=== PATIENT | male | born 1950 | race Caucasian/White ===

== ENCOUNTER → 2018-06-19 08:40 | Outpatient (CLI) | payer MEDICARE, BC, SELFPAY ==
[2018-06-19 09:06] LABS: Prothrombin Time 22.2 sec (9.3-10.8)
[2018-06-19 09:07] LABS: INR 2.3 (1.0-3.5)
== END ==
PROVIDERS: PCP Family Medicine; Visit Provider Family Medicine
DX: I34.0 Nonrheumatic mitral (valve) insufficiency (principal); Z79.01 Long term (current) use of anticoagulants; Z95.2 Presence of prosthetic heart valve
CPT/HCPCS: 36415; 85610

== ENCOUNTER 2018-08-30 13:14 | Outpatient (CLI) | payer MEDICARE, BC, SELFPAY ==
[2018-08-30 14:12] LABS: Prothrombin Time 27.8 sec (9.3-10.8)
== END 2018-08-30 13:34 ==
PROVIDERS: PCP Family Medicine; Visit Provider Family Medicine
DX: I34.0 Nonrheumatic mitral (valve) insufficiency (principal); Z79.01 Long term (current) use of anticoagulants; Z95.2 Presence of prosthetic heart valve
CPT/HCPCS: 36415; 85610

== ENCOUNTER → 2018-10-09 13:50 | Outpatient (BNVA) | payer MEDICARE, BC, SELFPAY | PROVIDERS: PCP Family Medicine; Visit Provider Nurse Practitioner Family | DX: I34.0 Nonrheumatic mitral (valve) insufficiency (principal); Z79.01 Long term (current) use of anticoagulants; Z95.2 Presence of prosthetic heart valve; I10 Essential (primary) hypertension; Z45.018 Encounter for adjustment and management of other part of cardiac pacemaker | CPT/HCPCS: 93280; 99213 ==

== ENCOUNTER 2019-02-19 12:12 | Outpatient (CLI) | payer MEDICARE, BC, SELFPAY ==
[2019-02-19 13:01] LABS: INR 1.3 (0.9-1.1)
== END 2019-02-19 12:32 ==
PROVIDERS: PCP Family Medicine; Visit Provider Family Medicine
DX: I34.0 Nonrheumatic mitral (valve) insufficiency (principal); Z95.0 Presence of cardiac pacemaker; Z79.01 Long term (current) use of anticoagulants
CPT/HCPCS: 36415; 85610

== ENCOUNTER 2019-03-01 15:28 | Outpatient (CLI) | payer MEDICARE, BC, SELFPAY ==
[2019-03-01 15:53] LABS: Prothrombin Time 20.1 sec (9.3-11.0)
== END 2019-03-01 15:48 ==
PROVIDERS: PCP Family Medicine; Visit Provider Family Medicine
DX: I34.0 Nonrheumatic mitral (valve) insufficiency (principal); Z95.0 Presence of cardiac pacemaker; Z79.01 Long term (current) use of anticoagulants
CPT/HCPCS: 36415; 85610

== ENCOUNTER 2019-03-20 10:25 | Outpatient (CLI) | payer MEDICARE, BC, SELFPAY ==
[2019-03-20 11:00] LABS: Prothrombin Time 19.7 sec (9.3-11.0)
== END 2019-03-20 10:45 ==
PROVIDERS: PCP Family Medicine; Visit Provider Family Medicine
DX: I34.0 Nonrheumatic mitral (valve) insufficiency (principal); Z95.2 Presence of prosthetic heart valve; Z79.01 Long term (current) use of anticoagulants
CPT/HCPCS: 36415; 85610

== ENCOUNTER 2019-04-29 08:28 | Outpatient (CLI) | payer MEDICARE, BC, SELFPAY ==
[2019-04-29 09:51] LABS: INR 3.3 (0.9-1.1); Prothrombin Time 33.7 sec (9.3-11.0)
== END 2019-04-29 08:48 ==
PROVIDERS: PCP Family Medicine; Visit Provider Family Medicine
DX: I34.0 Nonrheumatic mitral (valve) insufficiency (principal); Z95.0 Presence of cardiac pacemaker; Z79.01 Long term (current) use of anticoagulants
CPT/HCPCS: 36415; 85610

== ENCOUNTER → 2019-04-30 09:22 | Outpatient (BNVA) | payer MEDICARE, BC, SELFPAY | PROVIDERS: PCP Family Medicine; Visit Provider Nurse Practitioner Family | DX: I34.0 Nonrheumatic mitral (valve) insufficiency (principal); Z79.01 Long term (current) use of anticoagulants; Z95.2 Presence of prosthetic heart valve; I10 Essential (primary) hypertension; Z45.018 Encounter for adjustment and management of other part of cardiac pacemaker | CPT/HCPCS: 93280; 99213 ==

== ENCOUNTER 2019-06-18 10:02 | Outpatient (CLI) | payer MEDICARE, BC, SELFPAY ==
[2019-06-18 10:38] LABS: HGB 14.4 g/dL (13.5-17.5); Mean Corp. HGB Concentration 34.3 g/dL (32.0-36.0); Mean Corpuscular Hemoglobin 30.3 pg (27.0-33.0); Mean Corpuscular Volume 88.4 fL (80-95); Mean Platelet Volume 9.7 fL (8.0-11.0); Platelet Count 194 x1000/uL (130-400); RBC 4.75 m/cumm (4.50-6.00); RBC Distribution Width 13.3 % (11.8-14.1); White Blood Cell Count 5.12 k/cumm (4.4-10.8)
[2019-06-18 11:24] LABS: INR 3.4 (0.9-1.1); Prothrombin Time 34.2 sec (9.3-11.0)
[2019-06-18 11:46] LABS: ALT 25 U/L (16-63); AST 28 U/L (15-37); Albumin 4.2 g/dL (3.4-5.0); Alkaline Phosphatase 51 U/L (46-116); Anion Gap 10.2 mmol/L (3-11); BUN 20 mg/dL (7-18); Bilirubin, Total 0.5 mg/dL (0.2-1.0); CO2 25.8 mmol/L (21.0-32.0); CREATININE 1.07 mg/dL (0.70-1.30); Calcium 8.8 mg/dL (8.5-10.1); Chloride 103 mmol/L (98-107); Glucose 83 mg/dL (70-100); Potassium 4.7 mmol/L (3.5-5.1); Sodium 139 mmol/L (136-145); Total Protein 7.2 g/dL (6.4-8.2)
[2019-06-18 11:48] LABS: Calculated LDL 195 mg/dL; Cholesterol 265 mg/dL (50-200); HDL Cholesterol 53 mg/dL (40-60); Triglyceride 88 mg/dL (30-150)
== END 2019-06-18 10:22 ==
PROVIDERS: Internal Medicine Cardiovascular Disease; PCP Family Medicine; Visit Provider Family Medicine
DX: E78.00 Pure hypercholesterolemia, unspecified (principal); R06.2 Wheezing; I34.0 Nonrheumatic mitral (valve) insufficiency; Z95.0 Presence of cardiac pacemaker; Z95.2 Presence of prosthetic heart valve; Z79.01 Long term (current) use of anticoagulants; R53.83 Other fatigue
CPT/HCPCS: 36415; 80053; 80061; 83721; 85027; 85610

== ENCOUNTER → 2019-06-21 14:24 | Outpatient (BNVA) | payer MEDICARE, BC, SELFPAY | PROVIDERS: PCP Family Medicine; Visit Provider Internal Medicine Cardiovascular Disease | DX: Z95.4 Presence of other heart-valve replacement (principal); Z79.01 Long term (current) use of anticoagulants; Z95.0 Presence of cardiac pacemaker | CPT/HCPCS: 99213 ==

== ENCOUNTER 2019-07-24 14:30 | Outpatient (CLI) | payer MEDICARE, BC, SELFPAY ==
[2019-07-24 15:15] LABS: INR 1.9 (0.9-1.1); Prothrombin Time 18.5 sec (9.3-11.0)
== END 2019-07-24 14:50 ==
PROVIDERS: PCP Family Medicine; Visit Provider Family Medicine
DX: I48.91 Unspecified atrial fibrillation (principal); Z95.2 Presence of prosthetic heart valve; Z79.01 Long term (current) use of anticoagulants
CPT/HCPCS: 36415; 85610

== ENCOUNTER 2019-09-11 11:51 | Emergency (ER) | payer MEDICARE, BC, SELFPAY ==
[2019-09-11 11:57] VITALS: BP 128/85; PULSE 85; RESP 16; TEMP 36.6; O2SAT 98
--- NOTE | 2019-09-11 12:20 | DI.CT_ITS ---
EXAM: CT ABDOMEN AND PELVIS W CLINICAL HISTORY: abdominal pain, LLQ TECHNIQUE: After IV and oral contrast COMPARISON: No exams were available for comparison FINDINGS: There is scarring in the right middle lobe. Emphysematous changes are seen at the lung bases. Pacem marco wires and mitral valve prosthesis are partially included on the exam. The liver, gallbladder, s pleen, pancreas, adrenals and kidneys appear normal. The appendix appears normal. An increased jorge tity of stool is seen throughout the colon. There are few scattered diverticula. There is no eviden ce of diverticulitis. There is no small bowel dilatation or wall thickening. No ascites or free air is present. The aorta shows calcification and mild mural thrombus but no evidence of an aneurysm. T he proximal iliac arteries also show calcification. The prostate appears enlarged. There is a centr al defect in the prostate, which could be secondary to TURP procedure. There is mild diffuse bladder wall thickening. No bladder mass or bladder calcification is seen. No significant bony lesions are seen. IMPRESSION: Increased quantity of stool. Diverticulosis without evidence of diverticulitis.
[2019-09-11] MEDS: Normal Saline 1,000 ML 1000 ML IV (12:32)
[2019-09-11] MEDS: Normal Saline Flush 10 ML SYR IVP (12:33)
[2019-09-11 12:37] LABS: Abs Immature Grans 0.01 k/cumm (0.0-0.09); Absolute Basophil Count 0.05 k/cumm (0.0-0.2); Absolute Eosinophil Count 0.15 k/cumm (0.0-0.7); Absolute Lymphocyte Count 1.22 k/cumm (1.2-3.4); Absolute Monocyte Count 0.59 k/cumm (0.11-0.7); Absolute Neutrophil Count 3.01 k/cumm (1.2-6.7); HCT 42.3 % (40.0-50.0); HGB 14.4 g/dL (13.5-17.5); Immature Grans % 0.2; Lymphocytes % 24.3; Mean Corpuscular Hemoglobin 29.9 pg (27.0-33.0); Mean Corpuscular Volume 87.9 fL (80-95); Mean Platelet Volume 9.7 fL (8.0-11.0); Monocytes % 11.7; Neutrophils % 59.8; Platelet Count 216 x1000/uL (130-400); RBC 4.81 m/cumm (4.50-6.00); RBC Distribution Width 13.4 % (11.8-14.1); White Blood Cell Count 5.03 k/cumm (4.4-10.8)
[2019-09-11 12:46] LABS: ALT 29 U/L (16-63); AST 31 U/L (15-37); Albumin 4.2 g/dL (3.4-5.0); Alkaline Phosphatase 53 U/L (46-116); Anion Gap 9.9 mmol/L (3-11); BUN 17 mg/dL (7-18); Bilirubin, Total 0.4 mg/dL (0.2-1.0); CO2 25.1 mmol/L (21.0-32.0); CREATININE 0.98 mg/dL (0.70-1.30); Calcium 8.9 mg/dL (8.5-10.1); Chloride 103 mmol/L (98-107); Glucose 87 mg/dL (74-106); Potassium 4.4 mmol/L (3.5-5.1); Sodium 138 mmol/L (136-145); Total Protein 7.6 g/dL (6.4-8.2)
[2019-09-11 12:50] LABS: INR 3.5 (0.9-1.1); PTT Activated 50.2 sec (21.0-31.4); Prothrombin Time 34.2 sec (9.3-11.0)
[2019-09-11 13:00] LABS: Bilirubin Negative (Negative); Blood Negative (Negative); Clarity Clear (Clear); Glucose Negative (Negative); Ketones Negative (Negative); Leukocyte Esterase Negative (Negative); Nitrite Negative (Negative); Urobilinogen 0.2 EU/dL (Up TO 0.2); pH 5.5 (5-8)
[2019-09-11] MEDS: Omnipaque 350 MG/ML 50 ML BTL IJ (13:34)
[2019-09-11] MEDS: Omnipaque 350 MG/ML 100 ML BTL IJ (14:48)
--- NOTE | 2019-09-11 16:07 | W.ED.GENAD ---
Discharge Plan Disposition Patient Disposition: HOME Condition: Good Discharge Details Chief Complaint: Abd Prob Clinical Impression: Constipation Primary Care Provider: Linda Mccray ED Provider: Sonia Maria Home Meds and New Rx's Prescriptions: No Action aspirin 81 MG tablet,chewable 81 mg PO DAILY RF: 0 warfarin [Coumadin] 10 MG tablet 0 - 1 tab PO DIRECTED Qty: 90 RF: 4 warfarin [Coumadin] 2 mg tablet 2 mg PO as directed Qty: 30 RF: 0 Discharge Instructions Instructions: Constipation (ED) Additional Instructions: Drink plenty of fluids. Maintain high-fiber diet. Use mag citrate as recommended by her primary care doctor then transition to MiraLAX. I recommend a capful of MiraLAX once daily for 1 week then half a cap once daily for a week then half a cap every other day for a week then half a cap every 3 days for a week before discontinuing. Your INR today was noted to be 3.5. Please call your PCP and follow-up with this finding. Follow-up closely with your primary care doctor. Please follow-up for incidental findings specifically: There is scarring in the right middle lobe. Emphysematous changes are seen at the lung bases. Pacemaker wires and mitral valve prosthesis are partially included on the exam. The liver, gallbladder, spleen, pancreas, adrenals and kidneys appear normal. The appendix appears normal. An increased quantity of stool is seen throughout the colon. There are few scattered diverticula. There is no evidence of diverticulitis. There is no small bowel dilatation or wall thickening. No ascites or free air is present. The aorta shows calcification and mild mural thrombus but no evidence of an aneurysm. The proximal iliac arteries also show calcification. The prostate appears enlarged. There is a central defect in the prostate, which could be secondary to TURP procedure. There is mild diffuse bladder wall thickening. No bladder mass or bladder calcification is seen. No significant bony lesions are seen. For any increase in your abdominal pain, worsening symptoms, fevers, increase in ill feeling or alarming symptoms have reevaluation sooner if needed Medical Decision Making Is a very pleasant 69-year-old woman who presents for 2 months of left lower quadrant abdominal pain which he quantifies that is approximately a 2 out of 10 which is constant. Patient does report occasional seconds of sharp pain in the left lower quadrant but these are atypical. Patient does report mild constipation noted several weeks ago for which she did take MiraLAX which relieved his constipation. Patient does report mild changes in his bowels between ball sized bowel movements to smaller narrower bowel movements. Patient denies any blood or mucus with bowel movements. Patient denies nausea, vomiting. No significant changes in his appetite. Eating and drinking without difficulty. Patient does report mild malaise. Patient reports he travels regularly for work recently returned after 3 weeks in [place], has regular changes to his diet. Patient was concerned with the persistence of his pain, saw his PCP approximately 1 to 2 weeks ago who recommended conservative treatments, was reevaluated today by PCP who recommended evaluation in the emergency room for CT scan as he is due to travel again in the next [address] Patient cons[address] to CT scan today and labs. Patient does have a family history of bowel cancer at the age of 80. Mother colon cancer. Patient has had a colonoscopy last approximately 2 years ago, diverticula noted but no cancerous findings. Patient's labs are quite reassuring. No leukocytosis, normal CMP. Patient is noted to have an elevated INR of 3.5. Patient was made aware of this finding. He will call his PCP however he reports he typically is advised to be in a range between 2.5 and 3.5 given he has 2 stents in his heart. Patient CT reveals FINDINGS: There is scarring in the right middle lobe. Emphysematous changes are seen at the lung bases. Pacemaker wires and mitral valve prosthesis are partially included on the exam. The liver, gallbladder, spleen, pancreas, adrenals and kidneys appear normal. The appendix appears normal. An increased quantity of stool is seen throughout the colon. There are few scattered diverticula. There is no evidence of diverticulitis. There is no small bowel dilatation or wall thickening. No ascites or free air is present. The aorta shows calcification and mild mural thrombus but no evidence of an aneurysm. The proximal iliac arteries also show calcification. The prostate appears enlarged. There is a central defect in the prostate, which could be secondary to TURP procedure. There is mild diffuse bladder wall thickening. No bladder mass or bladder calcification is seen. No significant bony lesions are seen. IMPRESSION: Increased quantity of stool. Diverticulosis without evidence of diverticulitis. Findings were discussed with the patient. Patient was given a recommendation to use mag citrate by his PCP today for 24 to 48 hours then to transition to MiraLAX. I discussed this plan of care with the patient. MiraLAX regimen was discussed, tapering over the next month. Patient reports his understanding, encouraged high-fiber diet as well as plenty of fluids. Patient feels comfortable discharge home at this time. The patient was stable and requested discharge. Prior to discharge, my usual and customary return precautions were reviewed with the patient - this included follow-up instructions and reasons to return to the Emergency Department if conditions worsens, does not improve as expected, or other new concerns arise. HPI General Date/Time Provider Initiated Documentation: 09/11/19 11:59. HPI Narrative: This is a 69-year-old patient presents to the emergency room for 2 months of intermittent left lower quadrant abdominal pain. Patient is very vague as to the onset of his pain as is been quite insidious over the last couple months. Patient reports pain is quantified as a 2 out of 10 without radiation to his back or groin. Patient reports pain is primarily in the left lower quadrant. Patient does report occasional sharp episodic pain lasting only seconds in the left lower quadrant but are atypical. Patient does report constipation several weeks ago with a hard ball type bowel movements after which he used MiraLAX for a week with success and returned to normal bowel movements. Patient does report occasional change in shape of his bowel movements, narrower. Patient denies any blood or mucus with bowel movement. Patient denies any significant weight change. He does report general malaise but no associated nausea or vomiting. Eating and drink without difficulty. Patient denies any urinary urgency, frequency or dysuria. No urinary hesitancy. Patient reports a strong stream and feels he completely voids. Patient recently returned from [place] for a work trip lasting 3 weeks. Patient reports since onset of pain he has been evaluated by PCP. Initially patient had mild complaints of pain and a fairly benign exam. Today when reevaluated he continues to have a fairly benign exam however given his persistence of pain and slight increase in the last week which was reported they recommended he come to the ER for CT evaluation of his abdomen. Patient does have a family history of cancer specifically mother had colon cancer at the age of 80. Currently taking Coumadin for stents in the heart. Related Data Home Medications Medication Instructions Recorded Confirmed aspirin 81 mg PO DAILY tab-cap 03/15/18 09/11/19 warfarin [Coumadin] 0 - 1 tab PO DIRECTED #90 tab 03/30/18 09/11/19 warfarin 2 mg tablet 2 mg PO as directed #30 tab-cap 10/09/18 09/11/19 Previous Rx's Medication Instructions Recorded warfarin [Coumadin] 0 - 1 tab PO DIRECTED #90 tab 03/30/18 Allergies Allergy/AdvReac Type Severity Reaction Status Date / Time No Known Allergies Allergy Unverified 09/11/19 12:01 General Stated Complaint: Abd Prob YASMIN: 3 Review of Systems All systems reviewed & are unremarkable except as noted in HPI and below Constitutional Constitutional: Denies chills, Denies fever(s) and Reports malaise Gastrointestinal Gastrointestinal: Reports abdominal pain, Reports constipation, Denies nausea and Denies vomiting Genitourinary Genitourinary: Denies hematuria, Denies dysuria, Denies urinary hesitancy and Denies urinary urgency [facility] Surgical History Appendectomy HERNIA REPAIR (~2007) Pacemaker (~2009) Tonsillectomy and adenoidectomy Valve Replacement AORTIC/MITRAL Family History Mother Personal history of malignant neoplasm LIVER Father Heart disease Sister No problems noted. Brother No problems noted. Social History Smoking/Tobacco Use Status: Former Tobacco Use Drug use: Never Do you feel safe in your relationship?: Yes Exam Narrative Exam Narrative: CONST: Healthy appearing patient, in no acute distress. Well hydrated. Alert and alert. NECK: Normal visual inspection. FROM. No lymphadenopathy. Trachea midline. No Midline tenderness. CHEST: Normal insepection of the chest. RESP: Normal respiratory effort. Speaking full sentences. No cough. No wheezing. No retractions. Clear to auscaltation. Breath sound equal and present bilaterally. CARDIO: No JVD. Normal PMI. Regular Rate. Regular Rhythm. Normal peripheral pulses. GI: Normal inspection of abdomen. No distension. Soft. Mild left lower quadrant tenderness with palpation. Bowel sounds present in all 4 quadrants. No rebound. No gaurding. Back: No CVA tenderness bilaterally MUSCULOSKELETAL: Normal Gait. FROM of all extremities. Distal neurovascularly intact. Sensation intact distally. SKIN: Normal. Dry. No rashes. NEURO: Alert and awake. Speech clear. PSYCH: Normal affect. Cooperative. Course Vital Signs Vital signs: Vital Signs Temperature 36.6 C 09/11/19 11:57 Pulse 85 09/11/19 11:57 Respiratory Rate 16 09/11/19 11:57 Blood Pressure 128/85 09/11/19 11:57 Pulse Oximetry 98 09/11/19 11:57 Temperature 36.6 C 09/11/19 11:57 Temperature Source Skin 09/11/19 11:57 Pulse 85 09/11/19 11:57 Respiratory Rate 16 09/11/19 11:57 Respiratory Effort Non-Labored 09/11/19 11:57 Blood Pressure 128/85 09/11/19 11:57 Blood Pressure Position Sitting 09/11/19 11:57 Pulse Oximetry 98 09/11/19 11:57 Oxygen Delivery Method Room Air 09/11/19 11:57 Oxygen Flow Rate 0 09/11/19 11:57 Pain Level 3 09/11/19 11:57 Lab/Test Results Lab/Test Results: Laboratory Tests Range/Units 09/11/19 09/11/19 09/11/19 12:25 12:25 12:25 WBC (4.4-10.8) k/cumm 5.03 RBC (4.50-6.00) m/cumm 4.81 Hgb (13.5-17.5) g/dL 14.4 Hct (40.0-50.0) % 42.3 MCV (80-95) fL 87.9 MCH (27.0-33.0) pg 29.9 MCHC (32.0-36.0) g/dL 34.0 RDW (11.8-14.1) % 13.4 Plt Count (130-400) x1000/uL 216 MPV (8.0-11.0) fL 9.7 Immature Gran % 0.2 Neutrophils % 59.8 Lymphocytes % 24.3 Monocytes % 11.7 Eosinophils % 3.0 Basophils % 1.0 Absolute Neutrophils (1.2-6.7) k/cumm 3.01 Absolute Lymphocytes (1.2-3.4) k/cumm 1.22 Absolute Monocytes (0.11-0.7) k/cumm 0.59 Absolute Eosinophils (0.0-0.7) k/cumm 0.15 Absolute Basophils (0.0-0.2) k/cumm 0.05 PT (9.3-11.0) sec 34.2 H INR (0.9-1.1) 3.5 H APTT (21.0-31.4) sec 50.2 H Sodium (136-145) mmol/L 138 Potassium (3.5-5.1) mmol/L 4.4 Chloride (98-107) mmol/L 103 Carbon Dioxide (21.0-32.0) mmol/L 25.1 Anion Gap (3-11) mmol/L 9.9 BUN (7-18) mg/dL 17 Creatinine (0.70-1.30) mg/dL 0.98 Estimated GFR/1.73 m2 (mL/min/1.73m2) >= 60.00 Glucose (74-106) mg/dL 87 Calcium (8.5-10.1) mg/dL 8.9 Total Bilirubin (0.2-1.0) mg/dL 0.4 AST (15-37) U/L 31 ALT (16-63) U/L 29 Alkaline Phosphatase (46-116) U/L 53 Total Protein (6.4-8.2) g/dL 7.6 Albumin (3.4-5.0) g/dL 4.2 Urine Color (Yellow) Urine Clarity (Clear) Urine pH (5-8) Ur Specific [place] (1.005-1.025) Urine Protein (Negative) mg/dL Urine Ketones (Negative) mg/dL Urine Blood (Negative) Urine Nitrite (Negative) Urine Bilirubin (Negative) Urine Urobilinogen (Up TO 0.2) EU/dL Ur Leukocyte Esterase (Negative) Urine Glucose (Negative) mg/dL Range/Units 09/11/19 12:52 WBC (4.4-10.8) k/cumm RBC (4.50-6.00) m/cumm Hgb (13.5-17.5) g/dL Hct (40.0-50.0) % MCV (80-95) fL MCH (27.0-33.0) pg MCHC (32.0-36.0) g/dL RDW (11.8-14.1) % Plt Count (130-400) x1000/uL MPV (8.0-11.0) fL Immature Gran % Neutrophils % Lymphocytes % Monocytes % Eosinophils % Basophils % Absolute Neutrophils (1.2-6.7) k/cumm Absolute Lymphocytes (1.2-3.4) k/cumm Absolute Monocytes (0.11-0.7) k/cumm Absolute Eosinophils (0.0-0.7) k/cumm Absolute Basophils (0.0-0.2) k/cumm PT (9.3-11.0) sec INR (0.9-1.1) APTT (21.0-31.4) sec Sodium (136-145) mmol/L Potassium (3.5-5.1) mmol/L Chloride (98-107) mmol/L Carbon Dioxide (21.0-32.0) mmol/L Anion Gap (3-11) mmol/L BUN (7-18) mg/dL Creatinine (0.70-1.30) mg/dL Estimated GFR/1.73 m2 (mL/min/1.73m2) Glucose (74-106) mg/dL Calcium (8.5-10.1) mg/dL Total Bilirubin (0.2-1.0) mg/dL AST (15-37) U/L ALT (16-63) U/L Alkaline Phosphatase (46-116) U/L Total Protein (6.4-8.2) g/dL Albumin (3.4-5.0) g/dL Urine Color (Yellow) Yellow Urine Clarity (Clear) Clear Urine pH (5-8) 5.5 Ur Specific [place] (1.005-1.025) 1.020 Urine Protein (Negative) mg/dL Negative Urine Ketones (Negative) mg/dL Negative Urine Blood (Negative) Negative Urine Nitrite (Negative) Negative Urine Bilirubin (Negative) Negative Urine Urobilinogen (Up TO 0.2) EU/dL 0.2 Ur Leukocyte Esterase (Negative) Negative Urine Glucose (Negative) mg/dL Negative
[2019-09-11 16:15] VITALS: BP 146/82; PULSE 64; RESP 16; TEMP 36.6; O2SAT 97
== END 2019-09-11 16:20 | disposition home or self-care (01) ==
PROVIDERS: Emergency Provider Physician Assistant; PCP Family Medicine
DX: K59.00 Constipation, unspecified (principal); R79.1 Abnormal coagulation profile; T45.515A Adverse effect of anticoagulants, initial encounter; Z79.01 Long term (current) use of anticoagulants; Z95.5 Presence of coronary angioplasty implant and graft; I10 Essential (primary) hypertension; Z87.891 Personal history of nicotine dependence
CPT/HCPCS: 36415; 80053; 96360; 99285; 74177; 81003; 85025; 85610; 85730; J3490; Q9967

== ENCOUNTER 2019-10-22 08:31 | Outpatient (CLI) | payer MEDICARE, BC, SELFPAY ==
[2019-10-22 09:20] LABS: Prothrombin Time 39.6 sec (9.3-11.0)
[2019-10-22 09:52] LABS: INR 4.1 (0.9-1.1)
== END 2019-10-22 08:51 ==
PROVIDERS: PCP Family Medicine; Visit Provider Family Medicine
DX: I34.0 Nonrheumatic mitral (valve) insufficiency (principal); Z95.2 Presence of prosthetic heart valve; Z79.01 Long term (current) use of anticoagulants
CPT/HCPCS: 36415; 85610

== ENCOUNTER 2020-01-17 15:45 | Outpatient (CLI) | payer MEDICARE, BC, SELFPAY ==
[2020-01-17 16:23] LABS: Prothrombin Time 44.6 sec (9.3-11.0)
[2020-01-17 16:27] LABS: INR 4.6 (0.9-1.1)
== END 2020-01-17 16:05 ==
PROVIDERS: PCP Family Medicine; Visit Provider Family Medicine
DX: I48.91 Unspecified atrial fibrillation (principal); Z79.01 Long term (current) use of anticoagulants
CPT/HCPCS: 36415; 85610

== ENCOUNTER 2020-05-26 16:42 | Outpatient (REF) | payer MEDICARE, BC, SELFPAY ==
[2020-05-29 15:21] LABS: SARS-CoV-2 RNA Undetected (Undetected)
== END 2020-05-26 17:02 ==
LOC: NCHCN 16:42
PROVIDERS: PCP Family Medicine; Visit Provider Nurse Practitioner Family
DX: R06.02 Shortness of breath (principal)
CPT/HCPCS: U0003

== ENCOUNTER → 2020-06-24 13:56 | Outpatient (BNVA) | payer MEDICARE, BC, SELFPAY | PROVIDERS: PCP Family Medicine; Referring Provider Family Medicine; Visit Provider Internal Medicine Cardiovascular Disease | DX: I44.39 Other atrioventricular block (principal); Z95.2 Presence of prosthetic heart valve; Z45.018 Encounter for adjustment and management of other part of cardiac pacemaker; R53.83 Other fatigue | CPT/HCPCS: 93280; 99212 ==

== ENCOUNTER 2020-07-13 10:21 | Outpatient (CLI) | payer MEDICARE, BC, SELFPAY ==
--- NOTE | 2020-07-13 10:00 | DI.US_ITS ---
APPROVED REPORT EXAM: Comprehensive 2D, Doppler, and color-flow Echocardiogram Patient Location: Out-Patient Loan Expeditor: Angelina Araujo RDCS (AE) Indications: Mechanical mitral valve, DELVALLE, Mechanical Aortic Valve Other Information Study Quality: Adequate Conclusion Left Ventricle : The left ventricle is normal size. The left ventricular systolic function is normal. The left ventricular ejection fraction is within the normal range. There is normal left ventricular wall thickness. There is normal LV segmental wall motion. Diastolic function is indeterminate. LVEF i s 60%. Right Ventricle : The right ventricle is normal size. The right ventricular systolic function is norm al. Atria : The left atrium size is normal. The right atrium size is normal. Aortic Valve : Mechanical aortic valve is present. It is well-seated without any periprosthetic regu rgitation. Gradients through the mechanical valve are normal. Trace aortic regurgitation. Mitral Valve : Mechanical mitral prosthetic valve is well-seated without any periprosthetic regurgita tion. The gradients across the mechanical mitral valve are within normal range. Trace mitral regurgi tation. Great Vessels : The aortic root is normal in size. The ascending aorta is normal in size. Aortic arch is normal in caliber. IVC is normal in size and collapses >50% with inspiration. Compared to study from 10/17/2017: There is no significant change. Wall motion Left Ventricle The left ventricle is normal size. The left ventricular systolic function is normal. The left ventric ular ejection fraction is within the normal range. There is normal left ventricular wall thickness. T here is normal LV segmental wall motion. Diastolic function is indeterminate. There is no ventricular septal defect visualized. LVEF is 60%. Right Ventricle The right ventricle is normal size. The right ventricular systolic function is normal. Pacemaker lead is present in the right ventricle. Atria The left atrium size is normal. The right atrium size is normal. The interatrial septum is intact wit h no evidence for an atrial septal defect. Aortic Valve Mechanical aortic valve is present. It is well-seated without any periprosthetic regurgitation. Gradi ents through the mechanical valve are normal. Trace aortic regurgitation. Mechanical aortic valve is present. Mitral Valve Mechanical mitral prosthetic valve is well-seated without any periprosthetic regurgitation. The gradi ents across the mechanical mitral valve are within normal range. Trace mitral regurgitation. [employer] al prosthetic mitral valve is present. Tricuspid Valve The tricuspid valve is normal in structure. There is no tricuspid valve stenosis. Mild tricuspid regu rgitation. Pulmonic Valve The pulmonary valve is normal in structure. There is no pulmonic valvular stenosis. Trace pulmonic re gurgitation. Great Vessels The aortic root is normal in size. The ascending aorta is normal in size. Aortic arch is normal in ca liber. IVC is normal in size and collapses >50% with inspiration. Pericardium There is no pericardial effusion. 2D Dimensions IVSD d PLAX 0.87 cm M: 0.6-1.2 LV Vol A2C d MOD 108.9 mL LVPW d PLAX 0.89 cm M: 0.6 - 1.2 LV Vol A4C d MOD 136.5 mL LVID d PLAX 4.07 cm M: 4.2 - 5.8 LA vol/ BSA A2C s A-L 16.6 mL/m2 LVDs 2.85 cm M: 2.5 - 4.0 LA vol/ BSA A4C s A-L 27.4 mL/m2 Ao Root d 3.17 cm M: 3.1 - 3.7 LA Vol/ BSA Biplane s A-L 21.8 mL/m2 RA Area A4C 16.17 cm2 LA Area A4C s MOD 18.89 cm2 RA Vol/ BSA A4C s A-L 22.3 mL/m2 LA Area A2C s MOD 14.36 cm2 Ao Asc Diam d 3.13 cm M: 2.6 - 3.4 LV EF A4C MOD 57.5 % LV EF Teichholz 57.1 % LV EF A2C MOD 59.5 % LVEF (Serra's) 58.39 % M: 52 - 72 LV EF Biplane MOD 58.4 % LV Volume 90.90 mL M: 62 - 150 SV 71.15 mL LV Volume Index 44.77 mL/m2 M: 34 - 74 SV Index 35.00 mL/m2 LV Vol Biplane MOD 121.9 mL FS 29.55 % M-Mode TAPSE 1.56 cm (M/F) >1.7 LV Diastology MV E' medial 0.059 (>0.07 m/s) E/A Ratio 0.8 LV E/e MED 25.20 (<14) MV E Vmax 1.48 (0.4-1.3 m/s) MV E' lateral 0.124 (>0.1 m/s) MV A Vmax 1.80 (0.4-1.3 m/s) LV E/e LAT 11.90 (<14) MV E/A Ratio 0.80 MV E/E' medial 25.21 MV E/E' lateral 11.94 Aortic Valve LVOT Area 3.39 cm2 AoV Area Vmax 2.86 cm2 LVOT Vmax 1.25 m/s AoV Area/ BSA (Vmax) 1.41 cm2/m2 LVOT Mean Leo. 0.89 m/s REEMA Mean Leo. 3.13 cm2 LVOT Peak Grad 6.2 mmHg REEMA Mean Leo. Index 1.54 cm2/m2 LVOT Mean Grad 3.8 mmHg LVOT VTI 0.253 m LVOT Diam s 2.05 cm AoV Vmax 1.48 m/s Velocity Ratio 0.84 AoV Mean Leo. 0.96 m/s AoV Peak Grad 8.7 mmHg LVOT SV 85.69 mL AoV Mean Grad 4.5 mmHg AoV VTI 0.299 m AoV Area VTI 2.86 cm2 AoV Area/ BSA (VTI) 1.41 cm/m2 Mitral Valve MV DT 177 (160-240 msec) MV PHT 51 msec MV Area PHT 4.29 cm2 MV VTI 0.366 m MV VTI Annulus 0.402 m MV Area VTI 2.60 (4.0-6.0 cm2) Pulmonary Valve PV Vmax 1.25 (0.5-1.5 m/s) RVOT Peak Gr. 1.92 mmHg PV Peak Grad 6.3 mmHg RVOT Mean Gr. 1.00 mmHg PV Mean Grad 3.1 mmHg RVOT VTI 0.156 m PV VTI 0.238 m RVOT Vmax 0.69 m/s Tricuspid Valve TR Peak Grad 31.0 mmHg TR Vmax 2.79 m/s RA Pressure 3.00 mmHg RVSP (TR) 34.1 mmHg
== END 2020-07-13 10:41 ==
PROVIDERS: PCP Family Medicine; Visit Provider Internal Medicine Cardiovascular Disease
DX: Z95.2 Presence of prosthetic heart valve (principal); R06.09 Other forms of dyspnea
CPT/HCPCS: 93306

== ENCOUNTER 2020-07-29 07:52 | Observation (INO) | payer MEDICARE, BC, SELFPAY ==
[2020-07-29] VITALS (97 sets, daily range): BP systolic 94–158; BP diastolic 45–99; PULSE 50–78; RESP 10–35; TEMP 36.2–36.7; O2SAT 95–99
--- NOTE | 2020-07-29 07:45 | RT.EKG_ITS ---
APPROVED REPORT Exam: Resting ECG Patient Location: E HR:65 bpm ECG Measurements Heart Rate 65 AXIS NH 258 P 0 QRSd 168 QRS -86 QT 482 T 66 QTc 502 Conclusion Ventricular-paced rhythm I have reviewed and interpreted ECG and agree with software generated interpretation.
--- NOTE | 2020-07-29 08:12 | W.ED.GENAD ---
Discharge Plan Disposition Patient Disposition: [facility] INPATIENT Condition: Stable Discharge Details Clinical Impression: Dizziness, Pacemaker at end of battery life Admit Date/Time: 07/29/20 12:07 Admit Provider: Dean Martin Attending Provider: Dean Martin Primary Care Provider: Linda Mccray ED Provider: Jocelyne Bishop Discharge Data Discharge Date/Time-TO BE ENTERED AT DEPARTURE: 07/29/20 12:46 Medical Decision Making 70-year-old male presents to the ER with chief complaint of dizziness which he reports has worsened over the last 2 days. He states that around 2 AM he got up to get a glass of water and was very dizzy he states the worst it has ever been, he states that he became nauseated laid down on the floor and vomited. He described the room spinning. Since then the dizziness has somewhat decreased but he still feels what he describes as lightheadedness. Patient does have a pacemaker in place reports that he spoke with [facility] on-call balance bridge assembler last night who instructed him to relay a digital reading of his pacemaker, he was told that his pacemaker was reading low power. He states that he is scheduled for a pacemaker battery change next Monday at [facility]. He reports his balance bridge assembler is Dr. Surendra WISE who is here today. He denies any chest pain, abdominal pain. No shortness of breath or cough no fever. He has a past medical history of aortic valve replacement, pacemaker, hypertension. He does take warfarin on a daily basis. He normally takes baby aspirin daily which he did not take this morning. EKG was reviewed by Jaye Hines ER attending, shows a ventricular paced rhythm the rate of 65, old EKG was available for review please see her official reading. 08 22: Pacemaker was interrogated by staffing associate, it shows a sensed 4.5%, paced 95.5% 0855: [employer] called to inform us that the pacemaker battery needs to be replaced as it is possible. Please see official reports which are to be scanned into the chart. 0906: Spoke with Dr. Frost regarding patient he recommends transfer to [facility] for admission and this would expedite his pacemaker battery replacement, he states that once the pacemaker has a 3-month warning. It turns into a ventricular paced which would be causing patient symptoms. 0916: Spoke with [facility] transfer center and request consult for transfer to the shotblast operator on-call. Patient informed of possible plan of care and verbalized understanding. He is requesting at this time to go POV. 1016: Spoke with [facility] cardiology, Malou Jones who agrees to accept patient for transfer however they do not have bed availability until sometime tomorrow. Accepting physician is Dr. Martell will speak with hospitalist regarding observation and admission pending transfer to [facility]. They do recommend and request a COVID test and call transfer center with results. 1032: Spoke with hospitalist regarding patient he does not feel comfortable at this time excepting patient due to incapability to place patient if the need arises. He states that he will call the transfer center himself and speak to them. manager image and warehouse specialist aware. Other alternative is to transfer patient to [facility] ED. 1200: Admit orders in from Hospitalist, patient to be admitted here for observation and transfer to [facility] once bed becomes available. Patient remained hemodynamically stable throughout stay in the ED. At the time of this dictation and at the time of transfer patient was stable. HPI General Mode of arrival: ambulatory. Date/Time Provider Initiated Documentation: 07/29/20 08:04. Limitations to Documentation: no limitations. Information obtained by: patient. HPI Narrative: 70-year-old male presents to the ER with chief complaint of dizziness which he reports has worsened over the last 2 days. He states that around 2 AM he got up to get a glass of water and was very dizzy he states the worst it has ever been, he states that he became nauseated laid down on the floor and vomited. He described the room spinning. Since then the dizziness has somewhat decreased but he still feels what he describes as lightheadedness. Patient does have a pacemaker in place reports that he spoke with [facility] on-call balance bridge assembler last night who instructed him to relay a digital reading of his pacemaker, he was told that his pacemaker was reading low power. He states that he is scheduled for a pacemaker battery change next Monday at [facility]. He reports his balance bridge assembler is Dr. Surendra WISE who is here today. He denies any chest pain, abdominal pain. No shortness of breath or cough no fever. He has a past medical history of aortic valve replacement, pacemaker, hypertension. He does take warfarin on a daily basis. He normally takes baby aspirin daily which he did not take this morning. Related Data Home Medications Medication Instructions Recorded Confirmed aspirin 81 mg PO DAILY tab-cap 03/15/18 07/29/20 warfarin [Coumadin] 0 - 1 tab PO DIRECTED #90 tab 03/30/18 07/29/20 warfarin 2 mg tablet 2 mg PO as directed #30 tab-cap 10/09/18 07/29/20 Previous Rx's Medication Instructions Recorded warfarin [Coumadin] 0 - 1 tab PO DIRECTED #90 tab 03/30/18 Allergies Allergy/AdvReac Type Severity Reaction Status Date / Time No Known Allergies Allergy Verified 07/29/20 08:16 General Stated Complaint: Dizzy/Sync YASMIN: 2 Review of Systems Narrative: Constitutional: Negative for weight loss, alert and oriented, well groomed, normal body habitus, appears comfortable. HEENT: Denies trauma, headaches, blurry vision, nasal discharge, sore throat, trouble swallowing. Chest: Denies chest pain, palpitations, irregular rhythm, hypertension. Respiratory: Denies Shortness of breath, cough, hemoptysis. GI: Denies abdominal pain, diarrhea, constipation. Had episode of nausea and vomiting last night. : Denies dysuria, hematuria, flank pain, rectal bleeding. Neuro: Denies , blurry vision, weakness, syncope, headache or facial numbness. Positive dizziness Hematologic: Denies easy bruising, intolerance to heat or cold, hair loss. [facility] Medical History (Updated 07/29/20 @ 16:35 by Dean Martin) Cardiac pacemaker in situ Clostridium difficile colitis (09/20/16) History of coagulation defect Hypertension Mitral valve regurgitation replaced Surgical History (Updated 07/29/20 @ 16:35 by Dean Martin) Appendectomy Heart valve replaced (11/30/12) Aortic/Mitral HERNIA REPAIR (~2007) History of aortic valve replacement Pacemaker (~2009) Presence of other heart-valve replacement (11/30/12) Aortic/Mitral Tonsillectomy and adenoidectomy Family History Mother Personal history of malignant neoplasm LIVER Father Heart disease Sister No problems noted. Brother No problems noted. 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 Appears stated age. Normal body habitus. Head: Normocephalic, no trauma. Eyes: Pupils PERRLA, Red reflex noted, EOM's intact. Eyelids symmetrical without lesions, discharge, or swelling. ENT: Bilateral TM's WNL, External ear normal to inspection, no mastoid TTP, swelling, or erythema, Nasal turbinates WNL, no nasal discharge. Normal dentition, Posterior pharynx WNL, no exudate. Chest: RRR, Normal S1, S2, distal pulses intact. Resp: Lungs clear to auscultation bilaterally, no wheezes, rales, or rhonchi. Musculoskeletal: Normal gait, 5/5 strength to all four extremities. Skin: No suspicious rashes or lesions. Capillary refill less than 2 sec. Neurologic: Cranial nerves II-XII intact. Alert and oriented x 3. DTR's intact. Hematologic/Lymphatic: No ecchymosis, no lymphadenopathy. Course Vital Signs Vital signs: Vital Signs Temperature 36.6 C 07/29/20 08:03 Pulse 65 07/29/20 08:03 Respiratory Rate 18 07/29/20 08:03 Blood Pressure 156/66 H 07/29/20 08:03 Pulse Oximetry 98 07/29/20 08:03 Temperature 36.6 C 07/29/20 08:03 Temperature Source Skin 07/29/20 08:03 Pulse 65 07/29/20 08:03 Respiratory Rate 18 07/29/20 08:03 Blood Pressure 156/66 H 07/29/20 08:03 Pulse Oximetry 98 07/29/20 08:03 Oxygen Delivery Method Room Air 07/29/20 08:03 Oxygen Flow Rate 0 07/29/20 08:03 Pain Level 0 07/29/20 08:03
[2020-07-29] MEDS: Normal Saline 1,000 ML 75 ML IV (08:20)
[2020-07-29 08:27] LABS: Abs Immature Grans 0.02 10^3/uL (0.0-0.06); Absolute Basophil Count 0.06 10^3/uL (0.0-0.2); Absolute Eosinophil Count 0.13 10^3/uL (0.0-0.7); Absolute Lymphocyte Count 1.18 10^3/uL (1.2-3.4); Absolute Monocyte Count 0.52 10^3/uL (0.1-0.8); Absolute Neutrophil Count 3.71 10^3/uL (1.2-6.7); Basophils % 1.1; Eosinophils % 2.3; HGB 12.9 g/dL (13.5-17.5); Immature Grans % 0.4; MCH 29.3 pg (27.0-33.0); MCHC 33.1 % (32.0-36.0); MCV 88.4 fL (80-95); MPV 10.5 fL (8.0-11.0); Monocytes % 9.3; Neutrophils % 65.9; Nucleated RBC 0 %; Platelet Count 181 10^3/uL (130-400); RBC 4.41 10^6/uL (4.36-5.78); RDW 14.8 % (11.8-14.1); RDW-SD 47.6 fL; WBC 5.62 10^3/uL (4.4-10.8)
[2020-07-29 08:38] LABS: INR 3.6 (0.9-1.1); Prothrombin Time 35.3 sec (9.3-11.0)
[2020-07-29 08:58] LABS: ALT 25 U/L (16-63); AST 24 U/L (15-37); Albumin 3.9 g/dL (3.4-5.0); Alkaline Phosphatase 49 U/L (46-116); Anion Gap 6.8 mmol/L (3-11); BUN 19 mg/dL (7-18); Bilirubin, Total 0.5 mg/dL (0.2-1.0); CO2 27.2 mmol/L (21.0-32.0); CREATININE 0.99 mg/dL (0.70-1.30); Calcium 8.7 mg/dL (8.5-10.1); Chloride 103 mmol/L (98-107); Glucose 70 mg/dL (74-106); Magnesium 1.9 mg/dL (1.8-2.4); Potassium 4.6 mmol/L (3.5-5.1); Sodium 137 mmol/L (136-145); Total Protein 7.2 g/dL (6.4-8.2); Troponin I < 0.05 ng/mL (<0.06)
[2020-07-29 09:10] LABS: Bilirubin Negative (Negative); Blood Negative (Negative); Clarity Clear (Clear); Glucose Negative (Negative); Ketones Negative (Negative); Leukocyte Esterase Negative (Negative); Nitrite Negative (Negative); Urobilinogen 0.2 EU/dL (Up TO 0.2)
[2020-07-29 11:46] LABS: Troponin I < 0.05 ng/mL (<0.06)
--- NOTE | 2020-07-29 12:18 | W.PM.HP.N ---
Date of service: 07/29/20 Time of Service: 12:18 Assessment and Plan Assessment and plan (1) Pacemaker at end of battery life: Status: Acute Assessment and plan: Patient has been accepted for transfer to [facility] to the service of Dr. Martell however no bed is available right now the patient will be monitored overnight in the ICU. Present time he remains paced rhythm at 65 bpm (2) Cardiac pacemaker in situ: Status: Chronic (3) Heart valve replaced: Status: Acute Assessment and plan: Status post aortic and mitral mechanical valve replacement currently on warfarin and aspirin. INR slightly supratherapeutic at 3.6. Ideally his INR should between 2.5-3. He indicated to me that his dog food shredder operator and primary care provider prefer that his INR stay under 3.5 (4) Anticoagulated on warfarin: Status: Chronic Assessment and plan: INR is elevated at 3.6 and I spoke with Malou Jones from cardiology services at [facility] and she asked that I hold his warfarin for tonight. I made her aware of his mechanical valves. I will recheck his INR in the morning. History of Present Illness History of Present Illness Chief Complaint: dizziness Narrative: 70-year-old male presents emergency department chief complaint dizziness that is been getting worse over the last 2 days. He woke up around 2 AM to get a glass of water felt very dizzy became nauseated and laid down on his floor and vomited. Patient described the feeling of dizziness like the room was spinning. He did not actually lose consciousness. Patient has a permanent pacemaker and had spoken with the on-call dog food shredder operator at [facility] last night and had a telephonic reading sent and was told that his pacemaker was reading low power and had gone into ventricular paced mode. He was scheduled to have pacemaker battery exchange next Monday at [facility]. He denies any chest pain or shortness of breath. His past medical history is significant for atrial valve replacement, since hypertension, permanent pacemaker. He normally takes warfarin on a daily basis as well as a baby aspirin. Evaluation in the emergency department included EKG routine labs as well as pacemaker interrogation. Reportedly pacemaker showed sensing 4.5% and pacing 95.5%. [employer] telephone claims representative informed the ER staff that the pacemaker battery needs to be replaced as soon as possible. Patient's EP doctor is Dr. Agosto who is here in [facility] today in the clinic and he spoke with the staff in the emergency department recommended transfer to [facility] for admission to expedite his pacemaker battery replacement. Emergency room staff spoke with [facility] transfer center requesting a transfer to the EP dog food shredder operator on-call. [facility] cardiology intake nurse Malou Jones discussed the case and indicated the patient would be accepted to the service of Dr. Martell however they had no beds available for today and requested the patient be admitted to [facility] pending transfer to [facility]. Since that time I spoken with the cardiology transfer team and after they discussed with the dog food shredder operator and the EP dog food shredder operator on-call they do not feel that his current symptoms warrant emergent transfer and since they have no bed they are requesting that we manage the patient pending transfer. Presently patient denies any chest pain palpitations or shortness of breath and is not dizzy or lightheaded while sitting up in bed. His diagnostic work-up is included routine labs including CBC, pro time/INR, CMP, serial troponin levels. Troponin levels were negative x3 sets. CBC demonstrated a borderline anemia with a hemoglobin 12.9 g otherwise unremarkable. CMP was unremarkable. EKG demonstrated ventricular paced rhythm at a rate of 65 bpm. Review of Systems All systems reviewed & are unremarkable except as noted in HPI and below PFSH Medical History (Updated 07/29/20 @ 16:35 by Dean Martin) Cardiac pacemaker in situ Clostridium difficile colitis (09/20/16) History of coagulation defect Hypertension Mitral valve regurgitation replaced Surgical History (Updated 07/29/20 @ 16:35 by Dean Martin) Appendectomy Heart valve replaced (11/30/12) Aortic/Mitral HERNIA REPAIR (~2007) History of aortic valve replacement Pacemaker (~2009) Presence of other heart-valve replacement (11/30/12) Aortic/Mitral Tonsillectomy and adenoidectomy Family History Mother Personal history of malignant neoplasm LIVER Father Heart disease Sister No problems noted. Brother No problems noted. 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 [facility] Do you feel safe in your relationship?: Yes Meds Home Medications and Allergies Home Medications Medication Instructions Recorded Confirmed Type aspirin 81 mg PO DAILY tab-cap 03/15/18 07/29/20 History warfarin [Coumadin] 0 - 1 tab PO DIRECTED #90 tab 03/30/18 07/29/20 Rx warfarin 2 mg tablet 2 mg PO as directed #30 tab-cap 10/09/18 07/29/20 History Allergies Allergy/AdvReac Type Severity Reaction Status Date / Time No Known Allergies Allergy Verified 07/29/20 08:16 Exam Narrative Exam Narrative: Thin bustos-haired elderly male sitting up in bed who is alert and oriented person place time circumstance in no distress. He denies any chest discomfort dizziness or dyspnea. HEENT unremarkable. Neck supple nontender normal carotid pulses Lungs are clear to auscultation anteriorly posteriorly has some fine cellophane rales no rhonchi or wheezes. Heart is regular with mechanical click over the aortic area as well as the apex Abdomen soft nontender normal bowel sounds Extremities without edema Results Labs Result diagrams: 07/29/20 08:20 07/29/20 08:20 Labs: Laboratory Results - last 24 hr 07/29/20 07/29/20 07/29/20 08:20 08:20 08:20 WBC 5.62 RBC 4.41 Hgb 12.9 L Hct 39.0 L MCV 88.4 MCH 29.3 MCHC 33.1 RDW 14.8 H Plt Count 181 MPV 10.5 Immature Gran % 0.4 Neutrophils % 65.9 Lymphocytes % 21.0 Monocytes % 9.3 Eosinophils % 2.3 Basophils % 1.1 Nucleated RBC % 0 Absolute Neutrophils 3.71 Absolute Lymphocytes 1.18 L Absolute Monocytes 0.52 Absolute Eosinophils 0.13 Absolute Basophils 0.06 PT 35.3 H INR 3.6 H Sodium 137 Potassium 4.6 Chloride 103 Carbon Dioxide 27.2 Anion Gap 6.8 BUN 19 H Creatinine 0.99 Estimated GFR/1.73 m2 >= 60.00 Glucose 70 L Calcium 8.7 Magnesium 1.9 Total Bilirubin 0.5 AST 24 ALT 25 Alkaline Phosphatase 49 Troponin I < 0.05 Total Protein 7.2 Albumin 3.9 Urine Color Urine Clarity Urine pH Ur Specific [place] Urine Protein Urine Ketones Urine Blood Urine Nitrite Urine Bilirubin Urine Urobilinogen Ur Leukocyte Esterase Urine Glucose 07/29/20 07/29/20 09:00 11:20 WBC RBC Hgb Hct MCV MCH MCHC RDW Plt Count MPV Immature Gran % Neutrophils % Lymphocytes % Monocytes % Eosinophils % Basophils % Nucleated RBC % Absolute Neutrophils Absolute Lymphocytes Absolute Monocytes Absolute Eosinophils Absolute Basophils PT INR Sodium Potassium Chloride Carbon Dioxide Anion Gap BUN Creatinine Estimated GFR/1.73 m2 Glucose Calcium Magnesium Total Bilirubin AST ALT Alkaline Phosphatase Troponin I < 0.05 Total Protein Albumin Urine Color Yellow Urine Clarity Clear Urine pH 7.0 Ur Specific [place] 1.010 Urine Protein Negative Urine Ketones Negative Urine Blood Negative Urine Nitrite Negative Urine Bilirubin Negative Urine Urobilinogen 0.2 Ur Leukocyte Esterase Negative Urine Glucose Negative Last Vital Signs Temp 36.6 C 07/29/20 08:03 Pulse 65 07/29/20 10:16 Resp 35 H 07/29/20 10:20 BP 120/64 07/29/20 10:16 Pulse Ox 98 07/29/20 10:20 COVID-19 Screening Have you,or household,traveled outside [place] in last 14 days?: No Had IN PERSON contact w/suspected or confirmed C-19 person: No
[2020-07-29 16:01] LABS: Troponin I < 0.05 ng/mL (<0.06)
[2020-07-29 16:24] LABS: TSH 2.13 uIU/mL (0.36-3.74)
[2020-07-30] VITALS (22 sets, daily range): BP systolic 101–144; BP diastolic 51–105; PULSE 61–65; RESP 12–22; TEMP 36.8
[2020-07-30 02:08] LABS: COVID-19 RT-PCR UVMMC Result Negative (Negative)
[2020-07-30 06:40] LABS: INR 2.8 (0.9-1.1); Prothrombin Time 27.6 sec (9.3-11.0)
--- NOTE | 2020-07-30 08:18 | PHA.REVIEW ---
Pharmacy Admission Review - Admission Clinical Review (Last Updated 07/29/20 @ 16:35 by Dean Martin) Heart valve replaced (Acute 11/30/12) Dizziness (Acute) Pacemaker at end of battery life (Acute) No Known Allergies Allergy (Verified 07/29/20 08:16) Height 6 ft 1 in Weight 78.2 kg - Renal Dosing Renal Dosing: BUN 19 mg/dL (7-18) H 07/29/20 08:20 Creatinine 0.99 mg/dL (0.70-1.30) 07/29/20 08:20 Medications needing adjustments: Reviewed - Anticoagulation Anticoagulation: Hgb 12.9 g/dL (13.5-17.5) L 07/29/20 08:20 Hct 39.0 % (40.0-50.0) L 07/29/20 08:20 Plt Count 181 10^3/uL (130-400) 07/29/20 08:20 INR 2.8 (0.9-1.1) H D 07/30/20 06:05 Creatinine 0.99 mg/dL (0.70-1.30) 07/29/20 08:20 DVT Prohphylaxis: N/A Therapeutic Anticoagulation: Reviewed Medications: Warfarin (Home med - not ordered (10mg qPM)) - Opiate Usage Evaluate Pain Scale/Pains Meds: N/A Scheduled Bowel Reg ordered if on Opiates?: Yes (prn orders) - Relevant Labs Sodium 137 mmol/L (136-145) 07/29/20 08:20 Potassium 4.6 mmol/L (3.5-5.1) 07/29/20 08:20 Chloride 103 mmol/L (98-107) 07/29/20 08:20 Magnesium 1.9 mg/dL (1.8-2.4) 07/29/20 08:20 Electrolytes, C-Reactive P, ESR: Reviewed - DM Control DM Control: Glucose 70 mg/dL (74-106) L 07/29/20 08:20 Insulin Dosing: N/A - Heart Failure/OR Heart Failure/OR: Troponin I < 0.05 ng/mL (<0.06) 07/29/20 15:30 Troponin I Cancelled 07/29/20 15:30 EF%, JELENA's, B-Blockers, Diuretics: N/A - BP Control BP Control: Blood Pressure [Left Arm] 114/53 Blood Pressure 131/58 Blood Pressure 121/51 Blood Pressure 121/51 Blood Pressure 111/61 Blood Pressure 101/66 Blood Pressure 118/55 Blood Pressure 118/105 Blood Pressure 105/52 Blood Pressure 158/77 Blood Pressure 112/53 If elevated: Reviewed - Qtc Review If Elevated: Reviewed List meds needing interventions: QTc 502 on admission - IV to PO Switch IV Medications: Reviewed - Home Meds Relevent Home Meds Not ordered & why?: Warfarin 10mg QPM - INR is currently 2.8 this AM but was supratherapeutic on admission and suggested it be held by [facility] cardiology (pending transfer to [facility]) - Current meds Current Medication Order Review: Reviewed
[2020-07-30] MEDS: Aspirin 81 MG CHEW PO (08:39)
--- NOTE | 2020-07-30 09:52 | W.PM.PROGNOT ---
Date of Service Date of service: 07/30/20 Time of Service: 09:53 Assessment and Plan Assessment and plan (1) Pacemaker at end of battery life: Status: Acute Assessment and plan: Patient has been accepted for transfer to [facility] to the service of Dr. Martell. Awaiting call from [facility] transfer center regarding bed availability today (2) Cardiac pacemaker in situ: Status: Chronic (3) Heart valve replaced: Status: Acute Assessment and plan: Status post aortic and mitral mechanical valve replacement currently on warfarin and aspirin. INR slightly supratherapeutic at 3.6. Ideally his INR should between 2.5-3. He indicated to me that his space and missile operations spacelift and primary care provider prefer that his INR stay under 3.5 (4) Anticoagulated on warfarin: Status: Chronic Assessment and plan: INR is down to 2.8. Warfarin remains on hold pending his pacemaker battery replacement. Subjective Subjective Patient reports: no new complaints; denies shortness of breath Interval history since last seen: He denies any CP, dyspnea, palpitations or dizziness. He is awaiting transfer to [facility] for pacemaker battery replacement. Exam Narrative Exam Narrative: Thin bustos-haired elderly male sitting up in bed who is alert and oriented person place time circumstance in no distress. He denies any chest discomfort dizziness or dyspnea. HEENT unremarkable. Neck supple nontender normal carotid pulses Lungs are clear to auscultation anteriorly posteriorly has some fine cellophane rales no rhonchi or wheezes. Heart is regular with mechanical click over the aortic area as well as the apex Abdomen soft nontender normal bowel sounds Extremities without edema Objective Last Vital Signs Temp 36.2 C L 07/29/20 23:15 Pulse 64 07/30/20 04:01 Resp 18 07/30/20 04:20 BP 131/58 L 07/30/20 04:01 Pulse Ox 97 07/29/20 20:20 Laboratory Results - last 24 hr 07/29/20 07/29/20 07/29/20 10:55 11:20 15:30 PT INR Troponin I < 0.05 TSH 2.13 COVID-19 PCR Negative Nasopharyn COVID-19 PCR Not Applicable Ref Test Perform Site [place] [facility] 07/29/20 07/29/20 07/30/20 15:30 15:30 06:05 PT 27.6 H INR 2.8 H D Troponin I < 0.05 Cancelled TSH COVID-19 PCR Nasopharyn COVID-19 PCR Ref Test Perform Site
--- NOTE | 2020-07-30 11:12 | CHAPLAIN ---
London was resting in bed when I visited this morning. His , Meredith, was visiting with him. London said he is [place] [facility] [place] have [place] changed in his pacemaker. He shared information about his pacemaker and how he knows when the battery needs to be replaced, usually about every 10 years. London is a [employer] and connect to [facility] the [facility] in [place]. I explained my role and offered support. Meredith said she may go home until London is transferred. When I asked if I could get London anything, he responded, a new president.
--- NOTE | 2020-07-30 12:39 | W.PM.DS.N ---
Date of service: 07/30/20 Time of Service: 12:39 DS: Diagnosis Discharge Diagnosis (1) Pacemaker at end of battery life: Status: Acute (2) Cardiac pacemaker in situ: Status: Chronic (3) Heart valve replaced: Status: Chronic (4) Anticoagulated on warfarin: Status: Chronic Discharge Plan Disposition Patient Disposition: [facility] Condition: Stable Discharge Details Reason For Visit: SYNCOPE, VENTRICULAR PACING Admit Date/Time: 07/29/20 12:07 Admit Provider: Dean Martin Attending Provider: Dean Martin Primary Care Provider: Linda Mccray [facility] Course Hospital Course: Patient was directed to the emergency room by his EP test engineer nuclear equipment after patient sustained an episode of near syncope and telephonic transmission of his pacer indicated that the battery was in urgent need of replacement. Patient was ruled out for ACS with serial negative troponin levels. Patient never had a chest pain or dyspnea. Rhythm remained ventricular paced at 65 bpm. Patient remained hemodynamically stable and asymptomatic throughout his hospital stay. [facility] transfer center was contacted by the emergency room and the patient was accepted to the service of Dr. Martell however no bed was available on the day the patient was admitted to [facility] on July 29, 2020 and therefore he was hospitalized overnight in the ICU where he was monitored and remained in ventricular electronically paced rhythm. Patient had no ventricular arrhythmias. Upon admission his INR was elevated at 3.6. Patient is chronically anticoagulated with warfarin for treatment of valvular heart disease for which she has had mechanical aortic and mitral valve replacement. Warfarin was held overnight from July 29 to July 30, 2020 because elevated INR. His subsequent INR on the day of discharge had decreased to 2.8. Home Meds and New Rx's Prescriptions: No Action aspirin 81 MG tablet,chewable 81 mg PO DAILY RF: 0 warfarin [Coumadin] 10 MG tablet 0 - 1 tab PO DIRECTED Qty: 90 RF: 4 warfarin [Coumadin] 2 mg tablet 2 mg PO as directed Qty: 30 RF: 0 Discharge Instructions Instructions: Pacemaker Generator Change (DC) Activity:: bedrest Equipment/Supplies:: No Equipment Needed Diet:: Normal Diet Discharge Orders Discharge Orders: Discharge Order (Routine); Ordered 07/30/20 Ordered By: Dean Martin DS: Summary Status at Discharge Functional status at discharge: independent ambulation Overall status at discharge: patient is back to baseline Mental Status: mental status grossly normal Speech and Movement: speech and movement normal Mood: congruent mood Affect: normal affect Time Spent with Patient providing and/or coordinating discharge services: Less than 30 minutes Exam Narrative Exam Narrative: Thin bustos-haired elderly male sitting up in bed who is alert and oriented person place time circumstance in no distress. He denies any chest discomfort dizziness or dyspnea. HEENT unremarkable. Neck supple nontender normal carotid pulses Lungs are clear to auscultation anteriorly posteriorly has some fine cellophane rales no rhonchi or wheezes. Heart is regular with mechanical click over the aortic area as well as the apex Abdomen soft nontender normal bowel sounds Extremities without edema Psych Mental Status: mental status grossly normal Speech and Movement: speech and movement normal Mood: congruent mood Affect: normal affect DS: Data Vitals/I&O Vitals and I&O: Vital Signs Temperature 36.8 C 07/30/20 08:30 Temperature Source Temporal Artery Scan 07/30/20 08:30 Pulse 64 07/30/20 12:01 Pulse 65 07/30/20 12:01 Respiratory Rate 16 07/30/20 12:01 Respiratory Effort 07/30/20 08:30 Respiratory Depth Normal 07/30/20 08:30 Respiratory Pattern Normal 07/30/20 08:30 Blood Pressure 144/54 H 07/30/20 12:01 Blood Pressure Mean 73 07/30/20 12:01 Blood Pressure Position Supine 07/30/20 08:30 Pulse Oximetry 97 07/29/20 20:20 Oxygen Delivery Method Room Air 07/30/20 08:30 Oxygen Flow Rate 0 07/30/20 08:30 Pain Level 0 07/30/20 08:30 Intake & Output 07/29/20 07/30/20 07/30/20 23:59 11:59 23:59 Intake Total 240 / 240 Output Total 1050 / 1050 1350 / 1350 Balance -810 / -810 -1350 / -1350 Weight 77.111 kg 78.2 kg Intake: Oral 240 / 240 Output: Urine 1050 / 1050 1350 / 1350 Other: Urine Color Yellow Yellow Urine Appearance Clear Clear Urine Odor None Normal Voiding Methods Urinal Urinal Data Completed and Pending Labs on day of discharge: Labs from last 24 hours 07/30/20 07/29/20 07/29/20 06:05 15:30 15:30 PT 27.6 H INR 2.8 H D Troponin I Cancelled < 0.05 TSH COVID-19 PCR Nasopharyn COVID-19 PCR Ref Test Perform Site 07/29/20 07/29/20 15:30 10:55 PT INR Troponin I TSH 2.13 COVID-19 PCR Negative Nasopharyn COVID-19 PCR Not Applicable Ref Test Perform Site Critical access hospital lab [facility]LY [facility], [facility] Medical History (Updated 07/29/20 @ 16:35 by Dean Martin) Cardiac pacemaker in situ Clostridium difficile colitis (09/20/16) History of coagulation defect Hypertension Mitral valve regurgitation replaced Surgical History (Updated 07/30/20 @ 12:40 by Dean Martin) Appendectomy Heart valve replaced (11/30/12) Aortic/Mitral HERNIA REPAIR (~2007) History of aortic valve replacement Pacemaker (~2009) Presence of other heart-valve replacement (11/30/12) Aortic/Mitral Tonsillectomy and adenoidectomy Family History Mother Personal history of malignant neoplasm LIVER Father Heart disease Sister No problems noted. Brother No problems noted. 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
== END 2020-07-30 13:15 | disposition short-term general hospital (02) ==
LOC: ER 12:25 → ICU 13:43
PROVIDERS: Admitting Provider Internal Medicine; Emergency Provider Registered Nurse Emergency; PCP Family Medicine; Visit Provider Internal Medicine
DX: R55 Syncope and collapse (principal); Z95.2 Presence of prosthetic heart valve; Z95.0 Presence of cardiac pacemaker; Z79.01 Long term (current) use of anticoagulants; Z79.82 Long term (current) use of aspirin; I10 Essential (primary) hypertension
CPT/HCPCS: 36415; 80053; 93005; 99220; 99224; 99238; 99285; U0003; 81003; 83735; 84443; 84484; 85025; 85610; 93010; 99217; 99284; G0378

== ENCOUNTER → 2020-08-06 11:08 | Outpatient (BNVA) | payer MEDICARE, BC, SELFPAY | PROVIDERS: PCP Family Medicine; Referring Provider Family Medicine; Visit Provider Internal Medicine Cardiovascular Disease | DX: Z79.01 Long term (current) use of anticoagulants (principal); Z95.2 Presence of prosthetic heart valve; Z95.0 Presence of cardiac pacemaker; I10 Essential (primary) hypertension; Z86.79 Personal history of other diseases of the circulatory system | CPT/HCPCS: 99204; 99215 ==

== ENCOUNTER → 2020-08-12 08:53 | Outpatient (BNVA) | payer MEDICARE, BC, SELFPAY | PROVIDERS: PCP Family Medicine; Referring Provider Family Medicine; Visit Provider Physician Assistant | DX: I44.2 Atrioventricular block, complete (principal); Z45.018 Encounter for adjustment and management of other part of cardiac pacemaker; I10 Essential (primary) hypertension; I97.621 Postprocedural hematoma of a circulatory system organ or structure following other procedure | CPT/HCPCS: 93280; 99212 ==

== ENCOUNTER 2020-11-03 15:08 | Outpatient (REF) | payer MEDICARE, BC, SELFPAY ==
[2020-11-04 16:32] LABS: COVID-19 RT-PCR UVMMC Result Negative (Negative)
== END 2020-11-03 15:28 ==
LOC: NCHCN 15:08
PROVIDERS: PCP Family Medicine; Visit Provider Family Medicine
DX: Z20.822 Contact with and (suspected) exposure to COVID-19 (principal)
CPT/HCPCS: U0003

== ENCOUNTER 2020-11-26 12:50 | Inpatient (IN) | payer MEDICARE, BC, SELFPAY ==
[2020-11-26] VITALS (59 sets, daily range): BP systolic 76–138; BP diastolic 49–81; PULSE 66–116; RESP 14–34; TEMP 36.1–36.5; O2SAT 93–99
--- NOTE | 2020-11-26 12:45 | RT.EKG_ITS ---
APPROVED REPORT Exam: Resting ECG Patient Location: E HR:90 bpm ECG Measurements Heart Rate [address] 191 P 75 QRSd 168 QRS 261 QT 421 T 77 QTc 517 Conclusion Atrial-sensed ventricular-paced rhythm...ventricular pacing tracks p-waves
--- NOTE | 2020-11-26 12:55 | ED.GENADUL_ITS ---
Discharge Plan Disposition Patient Disposition: [facility] Condition: Stable Discharge Details Clinical Impression: Tension pneumothorax, spontaneous Primary Care Provider: Linda Mccray ED Provider: Dean Chacon Home Meds and New Rx's Prescriptions: No Action aspirin 81 MG tablet,chewable 81 mg PO DAILY RF: 0 warfarin [Coumadin] 10 MG tablet 0 - 1 tab PO DIRECTED Qty: 90 RF: 4 warfarin [Coumadin] 2 mg tablet 2 mg PO as directed Qty: 30 RF: 0 dextroamphetamine-amphetamine 10 mg tablet 2.5 mg PO PRN PRNRF: 0 Medical Decision Making 70-year-old gentleman with Rod history of hypertension, heart valve replacement, complete AV block, cardiac pacemaker, chronic anticoagulation, previous traumatic pneumothorax presents with left-sided chest pain at the site of his pacemaker. This began abruptly around 4 AM when lifting his left arm. The pain only lasted for a matter of a couple of moments but subsequently had diffuse lower chest pressure in the sensation that he cannot take a deep breath. Denies any chest pain now, fever, cough, shortness of breath. Patient makes it very clear that he will not be admitted to the hospital today and does not want to be in the ER longer than 4-4:30 PM. He is primarily concerned of a pneu mothorax or pleural effusion. Given his past medical history we will give a single dose of aspirin, initiate cardiac work-up, and obtain a chest x-ray. Clinically he appears well, nontoxic. Normotensive. Respirations 18, O2 sat 97 percent on room air. Heart rate was 102. Patient certainly could have a pneumothorax however he appears to be compensating very well. Laboratory values reveal an INR of 2.5, no obvious emergent process. Initial troponin less than 0.05, BNP 196. Received call from radiology with x-ray findings. Patient remains stable. Given his past medical history, chronic anticoagulation, placement of pacemaker, will defer to surgery. No clear indication for emergent needle decompression. Immediately consulted with surgery, Dr. Wylie who will come to the ER for [address] tube placement and admission. Please see his note. I did make patient aware of the findings and need for admission. Chest tube placed by surgery. Read chest x-ray reveals inflation of the lung. Medical Records Medical records reviewed: Yes I reviewed the patient's medical records. Imaging Data Radiologic Study: Attestation: I personally reviewed and interpreted this imaging study as follows: Imaging: X-Ray Radiologist's impression: X-ray read by radiology as left tension pneumothorax. Lab Data Lab results reviewed: Yes I reviewed the patient's lab results. Lab results narrative: Laboratory Tests Range/Units 11/26/20 11/26/20 11/26/20 13:07 13:07 13:07 WBC (4.4-10.8) 10^3/uL 7.73 RBC (4.36-5.78) 10^6/uL 4.98 Hgb (13.5-17.5) g/dL 14.7 Hct (40.0-50.0) % 44.1 MCV (80-95) fL 88.6 MCH (27.0-33.0) pg 29.5 MCHC (32.0-36.0) % 33.3 RDW (11.8-14.1) % 13.3 Plt Count (130-400) 10^3/uL 248 MPV (8.0-11.0) fL 10.0 Immature Gran % 0.3 Neutrophils % 75.1 Lymphocytes % 15.8 Monocytes % 6.1 Eosinophils % 1.9 Basophils % 0.8 Nucleated RBC % % 0 Absolute Neutrophils (1.2-6.7) 10^3/uL 5.81 Absolute Lymphocytes (1.2-3.4) 10^3/uL 1.22 Absolute Monocytes (0.1-0.8) 10^3/uL 0.47 Absolute Eosinophils (0.0-0.7) 10^3/uL 0.15 Absolute Basophils (0.0-0.2) 10^3/uL 0.06 PT (9.3-11.0) sec 24.4 H INR (0.9-1.1) 2.5 H APTT (21.0-27.5) sec 45.9 H Sodium (136-145) mmol/L 140 Potassium (3.5-5.1) mmol/L 3.6 Chloride (98-107) mmol/L 102 Carbon Dioxide (21.0-32.0) mmol/L 30.5 Anion Gap (3-11) mmol/L 7.5 BUN (7-18) mg/dL 19 H Creatinine (0.70-1.30) mg/dL 1.0 Estimated GFR/1.73 m2 (mL/min/1.73m2) >= 60.00 Glucose (74-106) mg/dL 121 H Calcium (8.5-10.1) mg/dL 9.1 Magnesium (1.8-2.4) mg/dL 1.9 Total Bilirubin (0.2-1.0) mg/dL 0.5 AST (15-37) U/L 25 ALT (16-63) U/L 23 Alkaline Phosphatase (46-116) U/L 58 Troponin I (<0.06) ng/mL < 0.05 NT-Pro-B Natriuret Pep (<300) pg/mL 196 Total Protein (6.4-8.2) g/dL 8.2 Albumin (3.4-5.0) g/dL 4.3 ECG Data Attestation: I personally reviewed and interpreted this ECG (s) as follows: Interpretation: Please see official report by Dr. Bermeo. Atrial-sensed ventricular paced rhythm. Heart rate of 90 HPI General Mode of arrival: ambulatory . Date/Time Provider Initiated Documentation: 11/26/20 12:51 . Limitations to Documentation: no limitations . Information obtained by: patient . HPI Narrative: This is a 70-year-old gentleman with possible history of complete AV block, hypertension, heart valve replacement, cardiac pacemaker, chronic anticoagulation with warfarin, left- sided traumatic pneumothorax. He presents today reporting that around 4:00 this morning he lifted his left arm up over his head, felt a sudden stabbing pain at the site of his pacemaker. He does state that ever since his pacemaker was placed he has had occasional pain, this was nothing really different. Subsequently he developed what he describes as a lower chest diffused pressure and it feels as though he is having difficulty taking a deep breath. No pain now whatsoever. He contacted [facility], who interrogated his pacemaker, nothing was abnormal. As the sensation has been present all day long he contacted another friend who recommended coming to the ER specifically to evaluate for potential pneumothorax and/or pleural effusion. Patient denies recent illness or trauma. He denies headache, fever, cough, shortness of breath, abdominal pain, nausea, vomiting, change in bowel or bladder function. Related Data Home Medications Medication Instructions Recorded Confirmed aspirin 81 mg PO DAILY tab-cap 03/15/18 11/26/20 warfarin [Coumadin] 0 - 1 tab PO DIRECTED #90 tab 03/30/18 11/26/20 warfarin 2 mg tablet 2 mg PO as directed #30 tab-cap 10/09/18 08/12/20 dextroamphetamine-amphetamine 2.5 mg PO PRN PRN 11/26/20 11/26/20 Previous Rx's Medication Instructions Recorded warfarin [Coumadin] 0 - 1 tab PO DIRECTED #90 tab 03/30/18 Allergies Allergy/AdvReac Type Severity Reaction Status Date / Time No Known Allergies Allergy Verified 11/26/20 13:04 General YASMIN: 2 Review of Systems Constitutional Constitutional: Denies fatigue, Denies fever(s) and Denies headache(s) ENT Ears, Nose, Mouth, and Throat: Denies headache(s) and Denies neck pain Cardiovascular Cardiovascular: Reports chest pain and Denies dyspnea Respiratory Respiratory: Denies cough and Denies dyspnea Gastrointestinal Gastrointestinal: Denies abdominal pain, Denies nausea and Denies vomiting Musculoskeletal Musculoskeletal: Denies back pain and Denies neck pain Integumentary/Breasts Skin/Breast: Denies erythema Neurologic Neurologic: Denies headache(s) Endocrine Endocrine: Denies fatigue Hematologic/Lymphatic Hematologic/Lymphatic: Reports easy bleeding and Reports easy bruising [facility] Medical History AV block, complete Cardiac pacemaker in situ dual lead Medtronic - PG replacement 07/31/2020 Clostridium difficile colitis (09/20/16) Hematoma, postoperative History of coagulation defect Hypertension Mitral valve regurgitation replaced Pacemaker at end of battery life Surgical History Appendectomy Heart valve replaced (11/30/12) Aortic/Mitral mechanical HERNIA REPAIR (~2007) History of aortic valve replacement Pacemaker (~2009) Presence of other heart-valve replacement (11/30/12) Aortic/Mitral Tonsillectomy and adenoidectomy Family History Mother Personal history of malignant neoplasm LIVER Father Heart disease Sister No problems noted. Brother No problems noted. 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 [employer] Do you feel safe at home: Yes Do you feel safe in your relationship?: Yes Exam Const General: cooperative, healthy appearing, comfortable and no acute distress Orientation: alert, awake and oriented x3 HENMT Head: normal to inspection, normocephalic and atraumatic Eyes General: appearance normal, both eyes and all related structures Conjunctivae: conjunctivae normal Sclera: sclerae normal Neck Neck: normal visual inspection, full ROM, trachea midline, supple and nontender Chest Chest: no tenderness and pacemaker Resp Effort & Inspection: normal respiratory effort, able to speak in complete sentences, not labored and not tachypneic Auscultation: other (Decreased versus absent lung sounds left lower lobe) Cardio Rate: tachycardic (102) Rhythm: regular rhythm GI Inspection: normal to inspection Palpation: soft, no pulsatile masses and nontender Auscultation: normal bowel sounds Back/Spine/Pelvis Back: No back tenderness Skin General skin exam: no rashes or lesions noted Neuro General: patient alert, patient awake, moves all extremities and no focal motor deficits Cognition: normal cognition Speech: speech normal Gait: normal gait Sensory Exam: no sensory deficits noted Extrem General: normal to inspection, full ROM, capillary refill normal, no pedal edema and no calf tenderness Psych Appearance: grossly normal Mental Status: mental status grossly normal Critical Care Time Critical Care Time Critical Care Time: Yes Total Critical Care Time: 35 Attestation: Upon my evaluation, this patient had a high probability of clinically significant, life-threatening deterioration due to their current medical conditions, which required my direct attention, intervention, and personal management. I have personally provided greater than 30 minutes of critical care time exclusive of the time spend on separately billable Register My Info. Time includes obtaining a history, examining the patient, pulse oximetry, review of laboratory data, radiology results, discussion with consultants, arranging urgent treatment with development of a management plan, evaluation of patient's response to treatment, and monitoring for potential decompensation. Interventions were performed as documented above.
[2020-11-26 13:19] LABS: Abs Immature Grans 0.02 10^3/uL (0.0-0.06); Absolute Basophil Count 0.06 10^3/uL (0.0-0.2); Absolute Eosinophil Count 0.15 10^3/uL (0.0-0.7); Absolute Lymphocyte Count 1.22 10^3/uL (1.2-3.4); Absolute Monocyte Count 0.47 10^3/uL (0.1-0.8); Absolute Neutrophil Count 5.81 10^3/uL (1.2-6.7); Basophils % 0.8; Eosinophils % 1.9; HCT 44.1 % (40.0-50.0); HGB 14.7 g/dL (13.5-17.5); Immature Grans % 0.3; Lymphocytes % 15.8; MCH 29.5 pg (27.0-33.0); MCHC 33.3 % (32.0-36.0); MCV 88.6 fL (80-95); Monocytes % 6.1; Neutrophils % 75.1; Nucleated RBC 0 %; Platelet Count 248 10^3/uL (130-400); RBC 4.98 10^6/uL (4.36-5.78); RDW 13.3 % (11.8-14.1); RDW-SD 43.2 fL; WBC 7.73 10^3/uL (4.4-10.8)
[2020-11-26] MEDS: Normal Saline 1,000 ML 125 ML IV ×2 (13:27→18:25)
[2020-11-26] MEDS: Aspirin 81 MG CHEW 324 MG CH (13:27)
[2020-11-26 13:38] LABS: ALT 23 U/L (16-63); AST 25 U/L (15-37); Albumin 4.3 g/dL (3.4-5.0); Alkaline Phosphatase 58 U/L (46-116); Anion Gap 7.5 mmol/L (3-11); BUN 19 mg/dL (7-18); Bilirubin, Total 0.5 mg/dL (0.2-1.0); CO2 30.5 mmol/L (21.0-32.0); Calcium 9.1 mg/dL (8.5-10.1); Chloride 102 mmol/L (98-107); Glucose 121 mg/dL (74-106); Magnesium 1.9 mg/dL (1.8-2.4); NT-proBNP 196 pg/mL (<300); Potassium 3.6 mmol/L (3.5-5.1); Sodium 140 mmol/L (136-145); Total Protein 8.2 g/dL (6.4-8.2); Troponin I < 0.05 ng/mL (<0.06)
--- NOTE | 2020-11-26 13:48 | DI.RAD_ITS ---
EXAM: XR CHEST 2V PA LATERAL CLINICAL HISTORY: pain/pressure TECHNIQUE: 2D digital imaging was performed. COMPARISON: CR CHEST 2 VIEWS PA,LAT from 07/14/2017 CR LEFT SHOULDER COMPLETE from 01/19/2018 FINDINGS: MEDIASTINUM: Normal. HEART: Normal. The patient has prior aortic and mitral valve replacements. PULMONARY VASCULATURE: Normal. LUNGS: There is collapse of the left lower lobe. PLEURAL SPACE: There is a large left pneumothorax. There is a small left pleural effusion. There do es appear to be a mild shift of the midline to the right and there is flattening of the left hemidiap hragm. There also appears to be widening of the intercostal spaces on the left. The findings are mo st suggestive of a tension pneumothorax. BONE:Within normal limits for the patient's age. There are multiple old right rib fractures. No acu te fracture is identified. OTHER FINDINGS:A transvenous pacemaker is in place. IMPRESSION: 1. Findings suggestive of a left tension pneumothorax. Findings were discussed with the patient's [facility] care provider in the emergency department on the date of the examination. DATA REPOSITORY: RADIATION DOSE DELIVERED:
[2020-11-26 13:49] LABS: INR 2.5 (0.9-1.1); PTT Activated 45.9 sec (21.0-27.5); Prothrombin Time 24.4 sec (9.3-11.0)
--- NOTE | 2020-11-26 15:34 | DI.RAD_ITS ---
EXAM: XR PORTABLE CHEST AP POST LINE CLINICAL HISTORY: post chest tube placement TECHNIQUE: 2D digital imaging was performed. COMPARISON: No exams were available for comparison FINDINGS: MEDIASTINUM: Normal. HEART: Normal. Both aortic and mitral valvular prostheses are noted. PULMONARY VASCULATURE: Normal. LUNGS: There has been successful respect jaime of both the left upper and lower lobes with mild atelec tasis persistent in the left lower lobe. PLEURAL SPACE: There has been interval placement of a left chest tube. The tip is directed superior medially. There does appear to be a very tiny residual left apical pneumothorax. BONE:Within normal limits for the patient's age. OTHER FINDINGS:The transvenous pacing wires are stable. IMPRESSION: Interval placement of a left chest tube. There appears to be a very tiny residual left apical pneumo thorax. Re-expansion of the left lung with mild atelectasis seen in the left lower lobe. DATA REPOSITORY: RADIATION DOSE DELIVERED:
--- NOTE | 2020-11-26 15:49 | NUR.NOTE ---
chest tube placed by Dr. Wylie for a spontanous pneumothorax to left lung. Suction set at low, intermittent
--- NOTE | 2020-11-26 16:14 | W.PM.HP.N ---
Date of service: 11/26/20 Time of Service: 16:15 Assessment and Plan Assessment and plan (1) Tension pneumothorax, spontaneous: Status: Acute Assessment and plan: Patient has a fairly good sized pneumothorax and does have some visible adhesions of the lung to the lateral chest wall on the chest x-ray. Because he is on Coumadin and is fully anticoagulated I elected to place a percutaneous chest tube. This was placed laterally on the left after area was obtained using 22-gauge needle. Post placement chest x-ray showed good expansion. Patient will now be admitted left on suction. History of Present Illness History of Present Illness Chief Complaint: left chest pain Narrative: 70-year-old gentleman who presents to the emergency room with left-sided chest pain centered in the lateral to mid chest onset at about 4 AM this morning. He states he was stretching and had an abrupt onset of pain. He has had dyspnea on exertion and mild shortness of breath since that time. He has had 2 pneumothoraces in the past and suspect that he has another one. He has a past medical history of aortic valve replacement after which she had a pneumothorax also fall which he had rib fractures and a pneumothorax. He is on chronic anticoagulation with Coumadin his current INR is 2.5. Review of Systems All systems reviewed & are unremarkable except as noted in HPI and below PFSH Medical History AV block, complete Cardiac pacemaker in situ dual lead Medtronic - PG replacement 07/31/2020 Clostridium difficile colitis (09/20/16) Hematoma, postoperative History of coagulation defect Hypertension Mitral valve regurgitation replaced Pacemaker at end of battery life Surgical History Appendectomy Heart valve replaced (11/30/12) Aortic/Mitral mechanical HERNIA REPAIR (~2007) History of aortic valve replacement Pacemaker (~2009) Presence of other heart-valve replacement (11/30/12) Aortic/Mitral Tonsillectomy and adenoidectomy Family History Mother Personal history of malignant neoplasm LIVER Father Heart disease Sister No problems noted. Brother No problems noted. 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 [employer] Do you feel safe at home: Yes Do you feel safe in your relationship?: Yes Meds Home Medications and Allergies Home Medications Medication Instructions Recorded Confirmed Type aspirin 81 mg PO DAILY tab-cap 03/15/18 11/26/20 History warfarin [Coumadin] 0 - 1 tab PO DIRECTED #90 tab 03/30/18 11/26/20 Rx warfarin 2 mg tablet 2 mg PO as directed #30 tab-cap 10/09/18 08/12/20 History dextroamphetamine-amphetamine 2.5 mg PO PRN PRN 11/26/20 11/26/20 History Allergies Allergy/AdvReac Type Severity Reaction Status Date / Time No Known Allergies Allergy Verified 11/26/20 13:04 Exam Const General: cooperative and no acute distress HENMT Head: normal to inspection Chest Other: There is a median sternotomy incision well-healed. There are 2 prior chest tube incisions one anteriorly and 1 lateral in the left chest. He has decreased breath sounds on the left. GI Palpation: soft Results Labs Result diagrams: 11/26/20 13:07 11/26/20 13:07 Labs: Laboratory Results - last 24 hr 11/26/20 11/26/20 11/26/20 13:07 13:07 13:07 WBC 7.73 RBC 4.98 Hgb 14.7 Hct 44.1 MCV 88.6 MCH 29.5 MCHC 33.3 RDW 13.3 Plt Count 248 MPV 10.0 Immature Gran % 0.3 Neutrophils % 75.1 Lymphocytes % 15.8 Monocytes % 6.1 Eosinophils % 1.9 Basophils % 0.8 Nucleated RBC % 0 Absolute Neutrophils 5.81 Absolute Lymphocytes 1.22 Absolute Monocytes 0.47 Absolute Eosinophils 0.15 Absolute Basophils 0.06 PT 24.4 H INR 2.5 H APTT 45.9 H Sodium 140 Potassium 3.6 Chloride 102 Carbon Dioxide 30.5 Anion Gap 7.5 BUN 19 H Creatinine 1.0 Estimated GFR/1.73 m2 >= 60.00 Glucose 121 H Calcium 9.1 Magnesium 1.9 Total Bilirubin 0.5 AST 25 ALT 23 Alkaline Phosphatase 58 Troponin I < 0.05 NT-Pro-B Natriuret Pep 196 Total Protein 8.2 Albumin 4.3 Last Vital Signs Temp 97.7 F 11/26/20 13:00 Pulse 72 11/26/20 16:00 Resp 22 11/26/20 16:01 BP 121/63 11/26/20 16:00 Pulse Ox 98 11/26/20 16:01 COVID-19 Screening Have you, or household traveled for leisure in last 14 days?: No Had IN PERSON contact w/suspected or confirmed C-19 person: No
--- NOTE | 2020-11-26 16:30 | ROE_ITS ---
Date of service: 11/26/20 Time of Service: 16:30 Operative Note Operative Note PRE-OP DIAGNOSIS: Left pneumothorax POST-OP DIAGNOSIS: same PROCEDURE: Percutaneous left tube thoracostomy SURGEON: Trey Vargas ANESTHESIA: local COMPLICATIONS: None Procedure Description: With the patient slightly sitting up and his left arm extended above his head the left chest laterally was prepped and draped in a sterile fashion. The ribs were palpated and an area monitor space above an old tube thoracostomy site was infiltrated with quarter percent Marcaine with epinephrine a 22-gauge needle was used to locate the underlying rib and the needle walked over the rib area was obtained. An Arrow percutaneous pneumothorax kit was used and the catheter introduced and sewn in place using 2- 0 nylon. The catheter bubbled appropriately and after applying a dressing chest x-ray was obtained showing good expansion and good position.
[2020-11-26 16:43] LABS: Source Nasopharynx
[2020-11-26 16:43] LABS: Troponin I < 0.05 ng/mL (<0.06)
[2020-11-26 17:21] LABS: COVID-19 PCR Negative (Negative); Influenza A PCR Negative (Negative); Influenza B PCR Negative (Negative); RSV PCR Negative (Negative)
[2020-11-26] MEDS: Normal Saline Flush 10 ML SYR IVP ×2 (18:26→21:41)
[2020-11-26] MEDS: HYDROmorphone 2 MG/ML VIAL 1 MG IVP (21:41)
--- NOTE | 2020-11-27 | DI.RAD_ITS ---
EXAM: XR PORTABLE CHEST AP CLINICAL HISTORY: fu pneu;mo TECHNIQUE: 2D digital imaging was performed. COMPARISON: CR XR PORTABLE CHEST AP POST LINE from 11/26/2020 FINDINGS: MEDIASTINUM: Normal. HEART: Stable transvenous pacemaker and aortic valve prostheses. PULMONARY VASCULATURE: Normal. LUNGS: Atelectasis is seen in the left lower lobe. PLEURAL SPACE: There is a persistent left pneumothorax which, although small has increased in size co mpared to the examination from 11/26/2020. BONE:Old right rib fractures. OTHER FINDINGS:The left chest tube is in place. The tip is directed medially in the mid lung field. IMPRESSION: Interval increase in size of the left pneumothorax. It does remain small probably representing 5-10 percent of the left hemithorax. Left lower lobe atelectasis. DATA REPOSITORY: RADIATION DOSE DELIVERED:
[2020-11-27 00:16] VITALS: BP 117/67; PULSE 65; RESP 18; TEMP 36; O2SAT 94
[2020-11-27] MEDS: Normal Saline 1,000 ML 125 ML IV ×2 (01:11→09:06)
[2020-11-27 03:53] VITALS: RESP 18; O2SAT 95
[2020-11-27 07:13] LABS: Abs Immature Grans 0.02 10^3/uL (0.0-0.06); Absolute Basophil Count 0.05 10^3/uL (0.0-0.2); Absolute Lymphocyte Count 1.13 10^3/uL (1.2-3.4); Absolute Neutrophil Count 4.85 10^3/uL (1.2-6.7); Basophils % 0.7; Eosinophils % 2.9; HCT 36.9 % (40.0-50.0); Immature Grans % 0.3; Lymphocytes % 16.5; MCH 28.9 pg (27.0-33.0); MCHC 32.5 % (32.0-36.0); MCV 88.9 fL (80-95); MPV 10.2 fL (8.0-11.0); Monocytes % 8.8; Neutrophils % 70.8; Nucleated RBC 0 %; Platelet Count 191 10^3/uL (130-400); RBC 4.15 10^6/uL (4.36-5.78); RDW 13.8 % (11.8-14.1); RDW-SD 45.2 fL; WBC 6.85 10^3/uL (4.4-10.8)
[2020-11-27 07:21] LABS: Prothrombin Time 19.5 sec (9.3-11.0)
[2020-11-27 07:47] VITALS: BP 115/68; PULSE 66; RESP 20; TEMP 37; O2SAT 94
[2020-11-27] MEDS: Warfarin 5 MG TAB PO (10:14)
[2020-11-27] MEDS: Normal Saline Flush 10 ML SYR IVP ×2 (10:19→21:03)
--- NOTE | 2020-11-27 10:27 | W.PM.PROGNOT ---
Date of Service Date of service: 11/27/20 Time of Service: 10:27 Assessment and Plan Assessment and plan (1) Tension pneumothorax, spontaneous: Status: Acute Assessment and plan: pneumo thorax is loculated inferiorly and laterally total is 5-10 percent. This would be difficult to hit with a catheter without ct guidance. Pt is comforatble and current tube does fluctuate with minimal air leak. He does have demonstrable bleb disease on the xray. Will re check xray this afternoon. Subjective Subjective Patient reports: feels better Exam Resp Effort & Inspection: normal respiratory effort and able to speak in complete sentences Auscultation: diminished lung sounds Objective Last Vital Signs Temp 98.6 F 11/27/20 07:47 Pulse 66 11/27/20 07:47 Resp 20 11/27/20 07:47 BP 115/68 11/27/20 07:47 Pulse Ox 94 11/27/20 07:47 Laboratory Results - last 24 hr 11/26/20 11/26/20 11/26/20 13:07 13:07 13:07 WBC 7.73 RBC 4.98 Hgb 14.7 Hct 44.1 MCV 88.6 MCH 29.5 MCHC 33.3 RDW 13.3 Plt Count 248 MPV 10.0 Immature Gran % 0.3 Neutrophils % 75.1 Lymphocytes % 15.8 Monocytes % 6.1 Eosinophils % 1.9 Basophils % 0.8 Nucleated RBC % 0 Absolute Neutrophils 5.81 Absolute Lymphocytes 1.22 Absolute Monocytes 0.47 Absolute Eosinophils 0.15 Absolute Basophils 0.06 PT 24.4 H INR 2.5 H APTT 45.9 H Sodium 140 Potassium 3.6 Chloride 102 Carbon Dioxide 30.5 Anion Gap 7.5 BUN 19 H Creatinine 1.0 Estimated GFR/1.73 m2 >= 60.00 Glucose 121 H Calcium 9.1 Magnesium 1.9 Total Bilirubin 0.5 AST 25 ALT 23 Alkaline Phosphatase 58 Troponin I < 0.05 NT-Pro-B Natriuret Pep 196 Total Protein 8.2 Albumin 4.3 COVID-19 Source SARS-CoV-2 (PCR) Influenza Type A (PCR) Influenza Type B (PCR) RSV (PCR) 11/26/20 11/26/20 11/27/20 16:07 16:35 06:20 WBC 6.85 RBC 4.15 L Hgb 12.0 L D Hct 36.9 L MCV 88.9 MCH 28.9 MCHC 32.5 RDW 13.8 Plt Count 191 MPV 10.2 Immature Gran % 0.3 Neutrophils % 70.8 Lymphocytes % 16.5 Monocytes % 8.8 Eosinophils % 2.9 Basophils % 0.7 Nucleated RBC % 0 Absolute Neutrophils 4.85 Absolute Lymphocytes 1.13 L Absolute Monocytes 0.60 Absolute Eosinophils 0.20 Absolute Basophils 0.05 PT INR APTT Sodium Potassium Chloride Carbon Dioxide Anion Gap BUN Creatinine Estimated GFR/1.73 m2 Glucose Calcium Magnesium Total Bilirubin AST ALT Alkaline Phosphatase Troponin I < 0.05 NT-Pro-B Natriuret Pep Total Protein Albumin COVID-19 Source Nasopharynx SARS-CoV-2 (PCR) Negative Influenza Type A (PCR) Negative Influenza Type B (PCR) Negative RSV (PCR) Negative 11/27/20 06:20 WBC RBC Hgb Hct MCV MCH MCHC RDW Plt Count MPV Immature Gran % Neutrophils % Lymphocytes % Monocytes % Eosinophils % Basophils % Nucleated RBC % Absolute Neutrophils Absolute Lymphocytes Absolute Monocytes Absolute Eosinophils Absolute Basophils PT 19.5 H INR 2.0 H APTT Sodium Potassium Chloride Carbon Dioxide Anion Gap BUN Creatinine Estimated GFR/1.73 m2 Glucose Calcium Magnesium Total Bilirubin AST ALT Alkaline Phosphatase Troponin I NT-Pro-B Natriuret Pep Total Protein Albumin COVID-19 Source SARS-CoV-2 (PCR) Influenza Type A (PCR) Influenza Type B (PCR) RSV (PCR)
--- NOTE | 2020-11-27 11:07 | DI.RAD_ITS ---
EXAM: XR PORTABLE CHEST AP CLINICAL HISTORY: re asses pneumo for expansion TECHNIQUE: 2D digital imaging was performed. COMPARISON: CR XR CHEST 2V PA LATERAL from 11/26/2020 CR XR PORTABLE CHEST AP from 11/27/2020 FINDINGS: MEDIASTINUM: Normal. HEART: Stable cardiac findings. PULMONARY VASCULATURE: Normal. LUNGS: There is persistent atelectasis in the left lower lobe. There is unchanged scarring in the ri ght lung apex. PLEURAL SPACE: There is a persistent left pneumothorax which is unchanged compared to the examination of the chest from 11/27/2020 at 7:58 a.m. Left chest tube is stable in position. BONE:Within normal limits for the patient's age. OTHER FINDINGS:Transvenous pacemaker is stable. IMPRESSION: Stable left pneumothorax. DATA REPOSITORY: RADIATION DOSE DELIVERED:
--- NOTE | 2020-11-27 12:34 | PHA.REVIEW ---
Pharmacy Admission Review - Admission Clinical Review (Last Reviewed 11/26/20 @ 16:18 by Trey Vargas MD) Tension pneumothorax, spontaneous (Acute) No Known Allergies Allergy (Verified 11/26/20 13:04) Height 6 ft 0.83 in Weight 78.9 kg Pneumothorax left chest - Comments Comments/Follow Ups: Chest xray repeated today, stable chest tube placement, patient comfortable, has APAP and Hydromorphone for pain, regular diet ordered, but do not see any notes about oral intake. INR today is 2.0 (down from 2.5), watch for subsequent Warfarin therapy-surgical patient - Renal Dosing Renal Dosing: BUN 19 mg/dL (7-18) H 11/26/20 13:07 Creatinine 1.0 mg/dL (0.70-1.30) 11/26/20 13:07 CrCl~74ml/min Medications needing adjustments: Reviewed - Anticoagulation Anticoagulation: Hgb 12.0 g/dL (13.5-17.5) L D 11/27/20 06:20 Hct 36.9 % (40.0-50.0) L 11/27/20 06:20 Plt Count 191 10^3/uL (130-400) 11/27/20 06:20 INR 2.0 (0.9-1.1) H 11/27/20 06:20 Creatinine 1.0 mg/dL (0.70-1.30) 11/26/20 13:07 Therapeutic Anticoagulation: Reviewed Medications: Warfarin (rec'd 1x order of Warfarin 5mg 11/27/20 ~10am) - Opiate Usage Evaluate Pain Scale/Pains Meds: Reviewed (IV prn Hydromorphone prn chest pain from chest tube) Scheduled Bowel Reg ordered if on Opiates?: No - Relevant Labs Sodium 140 mmol/L (136-145) 11/26/20 13:07 Potassium 3.6 mmol/L (3.5-5.1) 11/26/20 13:07 Chloride 102 mmol/L (98-107) 11/26/20 13:07 Magnesium 1.9 mg/dL (1.8-2.4) 11/26/20 13:07 Electrolytes, C-Reactive P, ESR: Reviewed - DM Control DM Control: Glucose 121 mg/dL (74-106) H 11/26/20 13:07 Insulin Dosing: N/A - Heart Failure/WV Heart Failure/WV: Troponin I < 0.05 ng/mL (<0.06) 11/26/20 16:07 NT-Pro-B Natriuret Pep 196 pg/mL (<300) 11/26/20 13:07 EF%, JELENA's, B-Blockers, Diuretics: N/A - BP Control BP Control: Blood Pressure 115/68 If elevated: N/A - Home Meds Home Med List reviewed: Reviewed (is on chronic Warfarin therapy for previous Pneumothorax's and aortic valve replacement) Relevent Home Meds Not ordered & why?: Adderall 20mg tablet once daily
--- NOTE | 2020-11-27 12:36 | INITIAL_ITS ---
- If Service Date Differs Date of service: 11/27/20 Time of Service: 12:37 Care Management Initial Assess REASON FOR HOSPITALIZATION:: Pneumothorax left chest PAST MEDICAL HISTORY/PAST SURGICAL HISTORY:: Medical History. AV block, complete. Cardiac pacemaker in situ. dual lead Medtronic - PG replacement 07/31/2020. Clostridium difficile colitis (09/20/16). Hematoma, postoperative. History of coagulation defect. Hypertension. Mitral valve regurgitation. replaced. Pacemaker at end of battery life. Surgical History. Appendectomy. Heart valve replaced (11/30/12). Aortic/Mitral mechanical. HERNIA REPAIR (~2007). History of aortic valve replacement. Pacemaker (~2009). Presence of other heart-valve replacement (11/30/12). Aortic/Mitral. Tonsillectomy and adenoidectomy PREVIOUS FUNCTIONAL STATUS/SOCIAL/FAMILY SUPPORTS:: London lives in [facility] with his , Meredith. 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 He is independent at baseline. CURRENT FUNCTIONAL STATUS:: London was sitting up in bed using his laptop computer when CM met with him. He stated that he has talked to his today. He is unsure of his expected hospital course at this time. CM saw the MD visit with him later in the morning. Per report, he is currently on suction, and MD will re check later today with chest xray. CM will continue to follow. ADVANCE DIRECTIVES:: On file. Meredith Velasquez listed as agent. Has patient been provided with info about the portal/API?: Yes Did the patient sign up for the portal?: Yes CODE STATUS:: Full Code INSURANCE COVERAGE / FINANCIAL ISSUES:: [facility]/ [employer]BS CURRENT HOME/COMMUNITY SERVICES/EQUIPMENT:: No current services or equipment. PRIMARY CARE PHYSICIAN:: Linda Mccray POTENTIAL DISCHARGE NEEDS:: follow up appointments PATIENT/FAMILY EDUCATION NEEDS:: Review discharge instructions, discussion of self care needs. ANTICIPATED BARRIERS TO DISCHARGE:: None identified. TRANSPORTATION:: via private vehicle by his . PLAN:: Anticipate London will return home when medically cleared. No anticipated services at this time. His , Meredith, will drive him home when ready via private vehicle. He will follow up with his PCP and discharge plan of care. CM will continue to follow.
[2020-11-27 15:30] VITALS: BP 111/73; PULSE 69; RESP 19; TEMP 36.8; O2SAT 96
--- NOTE | 2020-11-27 16:04 | CHAPLAIN ---
London was sitting up in bed working on his laptop when I stopped in. He is Denominational and connect the [facility], the Denominational center in [place]. He said he likes [facility]. He lives in town with his Meredith. He's been in touch with her today. 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
[2020-11-27 23:00] VITALS: BP 114/67; PULSE 79; RESP 17; TEMP 36.9; O2SAT 94
--- NOTE | 2020-11-28 06:30 | DI.RAD_ITS ---
EXAM: XR PORTABLE CHEST AP POST LINE CLINICAL HISTORY: fu pneumo TECHNIQUE: 2D digital imaging was performed. COMPARISON: CR XR PORTABLE CHEST AP POST LINE from 11/26/2020 CR XR PORTABLE CHEST AP from 11/27/2020 FINDINGS: MEDIASTINUM: Normal. HEART: Stable cardiac findings. PULMONARY VASCULATURE: Normal. LUNGS: Expansion of the left lower lobe. No acute focal infiltrates. PLEURAL SPACE: There has been significant decrease in size of left pneumothorax compared to the prior examination. There does appear to be a very small residual apical pneumothorax. No pleural effusio n. BONE:Within normal limits for the patient's age. OTHER FINDINGS:The left chest tube is stable in position. IMPRESSION: Interval decrease in size of the left pneumothorax. Small residual apical pneumothorax persists. DATA REPOSITORY: RADIATION DOSE DELIVERED:
[2020-11-28 06:58] LABS: INR 1.6 (0.9-1.1); Prothrombin Time 15.7 sec (9.3-11.0)
[2020-11-28 07:30] VITALS: RESP 18; O2SAT 98
--- NOTE | 2020-11-28 07:30 | DI.VRAD_ITS ---
PROCEDURE INFORMATION: Exam: XR Chest, 1 View Exam date and time: 11/28/2020 6:30 AM Age: 70 years old Clinical indication: Condition or disease; Other: F/u pneumo; Prior surgery; Surgery type: Pacer, chest tube TECHNIQUE: Imaging protocol: XR of the chest Views: 1 view. COMPARISON: CR XR PORTABLE CHEST AP 11/27/2020 10:44 AM FINDINGS: Tubes, catheters and devices: Left cardiac pacemaker is identified with bipolar leads in good position. Previously described small caliber left chest tube is again demonstrated. Lungs: Interstitial changes are noted in the right upper lobe suggesting fibrosis. Pleural spaces: Previously described left pneumothorax appears to be diminished in size when compared to the previous study. Heart/Mediastinum: Unremarkable. No cardiomegaly. Vasculature: There is calcification of the aortic arch. The patient is status post aortic and mitral valve replacement surgeries. Bones/joints: Multiple old healed right rib fracture deformities are demonstrated. IMPRESSION: 1. Left pneumothorax appears to be diminished in size when compared to the previous study. 2. Fibrotic scarring at the right apex. Dictated and Authenticated by: Dominic Tsai MD. Ordering:DOMINIQUE Yang MD
[2020-11-28 07:58] VITALS: BP 116/69; PULSE 69; RESP 16; TEMP 36.3; O2SAT 98
--- NOTE | 2020-11-28 09:09 | W.PM.PROGNOT ---
Date of Service Date of service: 11/28/20 Time of Service: 09:10 Assessment and Plan Assessment and plan (1) Tension pneumothorax, spontaneous: Status: Acute Assessment and plan: cxr shows improvement no air leak. will cont ct today as pt had a good air leak late afternoon yest. Subjective Subjective Patient reports: no new complaints Exam Resp Effort & Inspection: normal respiratory effort and able to speak in complete sentences Auscultation: clear to auscultation bilaterally Objective Last Vital Signs Temp 97.3 F L 11/28/20 07:58 Pulse 69 11/28/20 07:58 Resp 16 11/28/20 07:58 BP 116/69 11/28/20 07:58 Pulse Ox 98 11/28/20 07:58 Laboratory Results - last 24 hr 11/28/20 06:10 PT 15.7 H INR 1.6 H
--- NOTE | 2020-11-28 09:57 | CMPROGNOTE_ITS ---
- If Service Date Differs Date of service: 11/28/20 Time of Service: 09:57 Care Management Progress Note S/O: London continues to meet inpatient level of care. A review of his medical chart reveals a chest x-ray done today shows improvement and the air leak that occurred yesterday is no longer present. Lab results show an elevated PT of 15.7, though this is an improvement from yesterday's value of 19.5. INR is also improving but remains high at 1.6. CM will continue to follow. A: London is a 70 year old male admitted to [facility] on 11/26/2020 for a left chest pneumothorax. P: No change in plan. Anticipate London will be discharged home with no new services when medically cleared by provider. He will follow up with his PCP and discharge plan of care as directed. His , Meredith will drive him home via private vehicle when ready. CM will continue to follow.
[2020-11-28] MEDS: Enoxaparin 30 MG/0.3 ML SYR SC ×2 (10:11→21:29)
[2020-11-28] MEDS: Polyethylene Glycol 3350 17 GM PACKET PO (10:11)
[2020-11-28 11:00] VITALS: RESP 18; O2SAT 98
[2020-11-28 15:10] VITALS: BP 119/72; PULSE 72; RESP 18; TEMP 36.6; O2SAT 97
[2020-11-28 16:31] VITALS: RESP 18; O2SAT 97
--- NOTE | 2020-11-28 17:28 | NUR.NOTE ---
Nursing Note: CCC was made aware that if surgical service checks in, that the bubbling in the suction chamber has become more of a regular event
[2020-11-28] MEDS: Normal Saline Flush 10 ML SYR IVP (21:30)
[2020-11-28 23:17] VITALS: BP 105/57; PULSE 68; RESP 18; TEMP 36.3; O2SAT 95
[2020-11-29 07:14] VITALS: BP 107/69; PULSE 72; RESP 18; TEMP 36.3; O2SAT 96
--- NOTE | 2020-11-29 08:25 | DI.RAD_ITS ---
EXAM: XR PORTABLE CHEST AP POST LINE CLINICAL HISTORY: fu puemothorax TECHNIQUE: 2D digital imaging was performed. COMPARISON: CR,XR XR PORTABLE CHEST AP POST LINE from 11/28/2020 FINDINGS: There is a persistent tiny left apical pneumothorax. The left chest tube is stable in position. No new pulmonary infiltrates. Stable cardiac findings. IMPRESSION: Stable tiny left apical pneumothorax. DATA REPOSITORY: RADIATION DOSE DELIVERED:
[2020-11-29 08:42] VITALS: RESP 16; O2SAT 96
--- NOTE | 2020-11-29 08:46 | DI.VRAD_ITS ---
PROCEDURE INFORMATION: Exam: XR Chest, 1 View Exam date and time: 11/29/2020 8:17 AM Age: 70 years old Clinical indication: Other: F/u pneumothorax TECHNIQUE: Imaging protocol: XR of the chest Views: 1 view. COMPARISON: CR XR PORTABLE CHEST AP POST LINE 11/28/2020 6:17 AM FINDINGS: Tubes, catheters and devices: Stable transvenous pacemaker leads . Stable tube in the lateral left lung base Lungs: Hyperexpanded lung jay consistent with COPD Stable strandiness in the right upper lobe may be chronic Pleural spaces: Minimal pneumothorax in the left apex. Heart/Mediastinum: Unremarkable. No cardiomegaly. Vasculature: Status post aortic and mitral valve replacement Bones/joints: Healed right rib fractures IMPRESSION: Minimal pneumothorax in the left apex continues to decrease in size. Dictated and Authenticated by: Justen Huang MD. Ordering:DOMINIQUE Yang MD
--- NOTE | 2020-11-29 09:53 | W.PM.PROGNOT ---
Date of Service Date of service: 11/29/20 Time of Service: 09:53 Assessment and Plan Assessment and plan (1) Tension pneumothorax, spontaneous: Status: Acute Assessment and plan: will d/c chest tube and send him home if stable Subjective Subjective Patient reports: no new complaints Exam Resp Other: no air leak, lungs clear. cxr decreasing apical pneumo small Objective Last Vital Signs Temp 97.3 F L 11/29/20 07:14 Pulse 72 11/29/20 07:14 Resp 16 11/29/20 08:42 BP 107/69 11/29/20 07:14 Pulse Ox 96 11/29/20 08:42
--- NOTE | 2020-11-29 10:00 | W.PM.DS.N ---
Date of service: 11/29/20 Time of Service: 10:00 DS: Diagnosis Discharge Diagnosis (1) Tension pneumothorax, spontaneous: Status: Acute Discharge Plan Disposition Patient Disposition: HOME Condition: Stable Discharge Details Reason For Visit: PNEUMOTHORAX LEFT CHEST Admit Date/Time: 11/26/20 16:01 Admit Provider: Trey Vargas Attending Provider: Trey Vargas Primary Care Provider: Linda Mccray Hospital Course Hospital Course: 70-year-old gentleman who was admitted with a history of dyspnea. 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 He became progressively more dyspneic. He was particularly dyspneic with exertion and mildly dyspneic at rest. He presented to the emergency room a chest x-ray showed a pneumothorax which was fairly large and interpreted as a tension pneumothorax. he had no hemodynamic instability. He did have some adhesions of the lung to the lateral s and upper chest wall from prior tube thoracostomy's.. He was on chronic anticoagulation fully anticoagulated for both mitral and aortic valve replacements which were done in the past. He had had 2 pneumothoraces in the past. One was trauma related and one was related to his aortic valve replacement. He had a percutaneous tube thoracostomy placed in the emergency room. His lung reexpanded nicely initially however the subsequent day he had manifested an air leak. The air leak occurred intermittently but ultimately stopped on 11 28. Chest x-ray on the morning of 11 29 showed only a minimal apical pneumothorax. There was no air leak. His chest tube was discontinued at that time. Home Meds and New Rx's Prescriptions: New enoxaparin [Lovenox] 30 mg/0.3 mL Syringe 30 mg subcut Q12H Qty: 4 RF: 0 Continued aspirin 81 MG tablet,chewable 81 mg PO DAILY RF: 0 warfarin [Coumadin] 10 MG tablet 0 - 1 tab PO DIRECTED Qty: 90 RF: 4 warfarin [Coumadin] 2 mg tablet 2 mg PO as directed Qty: 30 RF: 0 dextroamphetamine-amphetamine 10 mg tablet 2.5 mg PO PRN PRNRF: 0 Discharge Instructions Instructions: Spontaneous Pneumothorax (DC) Stand Alone Forms: Nursing Discharge Form Activity:: no lifiting Equipment/Supplies:: No Equipment Needed Diet:: As Tolerated Discharge Orders Discharge Orders: Discharge Order (Routine); Ordered 11/29/20 Ordered By: Trey Vargas DS: Summary Time Spent with Patient providing and/or coordinating discharge services: Less than 30 minutes Status at Discharge Functional status at discharge: independent ambulation Overall status at discharge: patient is progressing back to baseline Mental Status: mental status grossly normal Speech and Movement: speech and movement normal Mood: congruent mood Affect: normal affect Exam Psych Mental Status: mental status grossly normal Speech and Movement: speech and movement normal Mood: congruent mood Affect: normal affect DS: Data Vitals/I&O Vitals and I&O: Vital Signs Temperature 97.3 F L 11/29/20 07:14 Temperature Source Tympanic 11/29/20 07:14 Pulse 72 11/29/20 07:14 Pulse Rhythm Regular 11/29/20 03:52 Pulse 68 11/26/20 17:50 Respiratory Rate 16 11/29/20 08:42 Respiratory Effort Non-Labored 11/29/20 03:52 Respiratory Depth Normal 11/29/20 03:52 Respiratory Pattern Normal 11/29/20 03:52 Blood Pressure 107/69 11/29/20 07:14 Blood Pressure Mean 74 11/26/20 17:45 Pulse Oximetry 96 11/29/20 08:42 Oxygen Delivery Method Room Air 11/29/20 08:42 Oxygen Flow Rate 0 11/29/20 08:42 Pain Level 2 11/29/20 07:14 Comment 11/26/20 18:36 Intake & Output 11/28/20 11/28/20 11/29/20 11:59 23:59 11:59 Intake Total 480 / 1390 910 / 1390 500 / 500 Output Total 1460 / 2560 1100 / 2560 1140 / 1140 Balance -980 / -1170 -190 / -1170 -640 / -640 Intake: IV Oral 480 / 1380 900 / 1380 500 / 500 Output: Chest Tube Drainage 35 / 75 40 / 75 40 / 40 Urine 1425 / 2485 1060 / 2485 1100 / 1100 Other: Urine Color Yellow Yellow Yellow Urine Appearance Clear Clear Cloudy Urine Odor Normal Normal Normal Stool Size Small Moderate Stool Characteristics Formed Formed Hard Hard Voiding Methods Urinal Urinal Urinal PFS Medical History AV block, complete Cardiac pacemaker in situ dual lead Medtronic - PG replacement 07/31/2020 Clostridium difficile colitis (09/20/16) Hematoma, postoperative History of coagulation defect Hypertension Mitral valve regurgitation replaced Pacemaker at end of battery life Surgical History Appendectomy Heart valve replaced (11/30/12) Aortic/Mitral mechanical HERNIA REPAIR (~2007) History of aortic valve replacement Pacemaker (~2009) Presence of other heart-valve replacement (11/30/12) Aortic/Mitral Tonsillectomy and adenoidectomy Family History Mother Personal history of malignant neoplasm LIVER Father Heart disease Sister No problems noted. Brother No problems noted. 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 Do you feel safe at home: Yes Do you feel safe in your relationship?: Yes
[2020-11-29] MEDS: Enoxaparin 30 MG/0.3 ML SYR SC (10:13)
[2020-11-29] MEDS: Polyethylene Glycol 3350 17 GM PACKET PO (10:13)
--- NOTE | 2020-11-29 10:39 | PDOC.CMDIS ---
- If Service Date Differs Date of service: 11/29/20 Time of Service: 10:39 LACE Index Scoring Tool - Questions: Length of Stay (in days): 3 Acuity (Admit via E.D.?): Yes E.D. Visits: 2 - Answers: Total Score: 8 Risk of Readmission: Low Risk Care Management Discharge Reason for Hospitalization: Pneumothorax left chest Discharge Plan: London is discharged home with no new services. He will follow up with his PCP, surgeon, and discharge plan of care as directed. London is being driven home by his via private vehicle. Patient/Family Education Needs: Discharge instructions, limitations, follow up plan of care including Ask Me Three and self management.
[2020-11-29 11:00] VITALS: BP 105/67; PULSE 68; RESP 18; TEMP 36.3; O2SAT 96
== END 2020-11-29 12:45 | disposition home or self-care (01) | DRG 201 ==
LOC: ER 14:34 → MS 18:12
PROVIDERS: Emergency Medicine; Admitting Provider Surgery; Emergency Provider Physician Assistant; PCP Family Medicine; Visit Provider Surgery
DX: J93.0 Spontaneous tension pneumothorax (principal); J98.4 Other disorders of lung; I10 Essential (primary) hypertension; Z95.2 Presence of prosthetic heart valve; Z95.0 Presence of cardiac pacemaker; Z79.01 Long term (current) use of anticoagulants
CPT/HCPCS: 32551; 36415; 71045; 80053; 87637; 93005; 96361; 96374; 99221; 99231; 99238; 99291; 71046; 83735; 83880; 84484; 85025; 85610; 85730; 93010; J1650

== ENCOUNTER 2020-11-29 20:44 | Inpatient (IN) | payer MEDICARE, BC, SELFPAY ==
[2020-11-29] VITALS (16 sets, daily range): BP systolic 81–152; BP diastolic 52–72; PULSE 77–110; RESP 15–30; TEMP 36.8–37.2; O2SAT 93–99
--- NOTE | 2020-11-29 20:58 | DI.RAD_ITS ---
EXAM: XR PORTABLE CHEST AP CLINICAL HISTORY: recent pneumo, concern for new pneumothorax TECHNIQUE: 2D digital imaging was performed. COMPARISON: CR,XR XR PORTABLE CHEST AP POST LINE from 11/29/2020 FINDINGS: MEDIASTINUM: There is now a mild [id number] shift of the midline. Findings are suspicious for tens ion pneumothorax. HEART: Cardiac structures are unchanged. PULMONARY VASCULATURE: Normal. LUNGS: There is now marked atelectasis of the left lower lobe. The right lung is unchanged. PLEURAL SPACE: There has been development of a large left pneumothorax. The pneumothorax has signifi cantly increased in size. BONE:Within normal limits for the patient's age. OTHER FINDINGS:The chest tube has been removed. IMPRESSION: Interval removal of the left chest tube and development of a large left pneumothorax. Marked atelect asis of the left lower lobe. There is also also mild [id number] shift of the midline. This raises a question of a tension pneumothorax. DATA REPOSITORY: RADIATION DOSE DELIVERED:
--- NOTE | 2020-11-29 21:07 | DI.VRAD_ITS ---
PROCEDURE INFORMATION: Exam: XR Chest, 1 View Exam date and time: 11/29/2020 8:47 PM Age: 70 years old Clinical indication: Chest pain; Type not specified; Prior surgery; Surgery date: Post-operative (0-2 days); Surgery type: Chest tube; Patient HX: Recent pneumo, concern for new pneumothorax TECHNIQUE: Imaging protocol: XR of the chest Views: 1 view. COMPARISON: CR XR PORTABLE CHEST AP POST LINE 11/29/2020 7:59 AM FINDINGS: Tubes, catheters and devices: Interval removal of left pleural catheter. Lungs: Hyperexpanded lung jay. Mild chronic atelectasis versus scarring in the right lung without focal consolidation. There is partial collapse of the left lung secondary to pneumothorax. Pleural spaces: There has been significant interval increase in size of left-sided pneumothorax, now large, estimated volume 50% (however could be more). No right-sided pneumothorax. No pleural effusion. Heart/Mediastinum: There is slight interval increase in [id number] midline shift, however this also could be related to patient positioning/rotation. Cardiac silhouette within normal limits for size. Vasculature: Stable post aortic and mitral valve replacement. Bones/joints: Median sternotomy wires are in place. Redemonstrated several old healed right rib fractures. No acute osseous finding. Soft tissues: Stable transvenous pacemaker leads with left chest wall pacemaker. IMPRESSION: 1. Interval removal of left-sided pleural catheter with significant increase in size of now large left pneumothorax, estimated volume 50% (however could be more). 2. There is slight interval worsening of left right midline shift. This could be secondary to patient positioning/rotation, however clinical correlation is recommended to exclude symptoms of tension pneumothorax. COMMENTS: THIS REPORT CONTAINS FINDINGS THAT MAY BE CRITICAL TO PATIENT CARE. The findings were verbally communicated via telephone conference with MIMA MARCELINO at 9:06 PM EST on 11/29/2020. The findings were acknowledged and understood. Dictated and Authenticated by: Lc Peng MD. Ordering:TRAVIS Emmanuel MD
[2020-11-29 21:15] LABS: Abs Immature Grans 0.03 10^3/uL (0.0-0.06); Absolute Basophil Count 0.03 10^3/uL (0.0-0.2); Absolute Eosinophil Count 0.17 10^3/uL (0.0-0.7); Absolute Lymphocyte Count 0.25 10^3/uL (1.2-3.4); Absolute Monocyte Count 0.41 10^3/uL (0.1-0.8); Absolute Neutrophil Count 8.29 10^3/uL (1.2-6.7); Basophils % 0.3; Eosinophils % 1.9; HCT 45.9 % (40.0-50.0); HGB 15.5 g/dL (13.5-17.5); Immature Grans % 0.3; Lymphocytes % 2.7; MCH 29.8 pg (27.0-33.0); MCHC 33.8 % (32.0-36.0); MCV 88.3 fL (80-95); MPV 10.1 fL (8.0-11.0); Monocytes % 4.5; Neutrophils % 90.3; Nucleated RBC 0 %; Platelet Count 226 10^3/uL (130-400); RDW 13.3 % (11.8-14.1); WBC 9.18 10^3/uL (4.4-10.8)
--- NOTE | 2020-11-29 21:15 | NUR.NOTE ---
Nursing Note:Dr. Mejia doing bedside ultra sound of left chest for chest tube insertion.
[2020-11-29 21:28] LABS: ALT 20 U/L (16-63); AST 25 U/L (15-37); Albumin 4.3 g/dL (3.4-5.0); Alkaline Phosphatase 60 U/L (46-116); Anion Gap 10.7 mmol/L (3-11); BUN 20 mg/dL (7-18); Bilirubin, Total 0.8 mg/dL (0.2-1.0); CO2 26.3 mmol/L (21.0-32.0); Calcium 9.3 mg/dL (8.5-10.1); Chloride 101 mmol/L (98-107); Glucose 102 mg/dL (74-106); Sodium 138 mmol/L (136-145); Total Protein 8.2 g/dL (6.4-8.2)
[2020-11-29 21:29] LABS: INR 1.1 (0.9-1.1); PTT Activated 28.3 sec (21.0-27.5); Prothrombin Time 11.4 sec (9.3-11.0)
[2020-11-29] MEDS: Ondansetron 4 MG/2 ML VIAL (21:32)
--- NOTE | 2020-11-29 21:48 | DI.RAD_ITS ---
EXAM: XR PORTABLE CHEST AP POST LINE CLINICAL HISTORY: post chest tube TECHNIQUE: 2D digital imaging was performed. COMPARISON: CR,XR XR PORTABLE CHEST AP POST LINE from 11/29/2020 FINDINGS: There has been interval placement of a left pigtail pleural catheter. The pigtail lies in the left m id lung. There has been some re-expansion of the left lower lobe but moderately severe left lower lo be collapse is still present. There has been some improvement in the left pleural effusion which is now moderate in size. The right lung remains stable. No new infiltrates. Cardiac silhouette and de vices are stable. IMPRESSION: Interval placement of a left-sided pleural catheter with decrease in size of left pneumothorax which is still moderate in size. Some interval re-expansion of the left lower lobe. DATA REPOSITORY: RADIATION DOSE DELIVERED:
--- NOTE | 2020-11-29 22:11 | DI.VRAD_ITS ---
PROCEDURE INFORMATION: Exam: XR Chest, 1 View Exam date and time: 11/29/2020 9:53 PM Age: 70 years old Clinical indication: Device placement; Prior surgery; Surgery date: Post-operative (0-2 days); Surgery type: Chest tube, TECHNIQUE: Imaging protocol: XR of the chest Views: 1 view. COMPARISON: CR XR PORTABLE CHEST AP 11/29/2020 8:43 PM FINDINGS: Tubes, catheters and devices: Interval placement of left-sided pigtail pleural catheter with pigtail projecting over the left mid lung. Lungs: Hyperexpanded lung jay with mild chronic atelectasis versus scarring of the right lung without focal consolidation. Improved aeration of the left lung without focal consolidation, basilar atelectasis/partial collapse. Pleural spaces: Redemonstrated left sided pneumothorax which is improved in the interval, however still moderate in size. No right-sided pneumothorax. No pleural effusion. Heart/Mediastinum: Cardiac silhouette within normal limits for size. Vasculature: Stable post aortic and mitral valve replacement. Bones/joints: Median sternotomy wires are in place. Redemonstrated several old healed right rib fractures. No acute osseous finding. Soft tissues: Stable transvenous pacemaker leads with left chest wall pacemaker. IMPRESSION: Interval placement of left-sided pigtail pleural catheter with improving left-sided pneumothorax, still moderate in size. Dictated and Authenticated by: Lc Peng MD. Ordering:TRAVIS Emmanuel MD
--- NOTE | 2020-11-29 22:12 | W.ED.GENAD ---
Discharge Plan Disposition Patient Disposition: [facility] INPATIENT Condition: Stable Discharge Details Chief Complaint: SOB Reason For Visit: RECURRENT LEFT PNEUOTHORAX Admit Date/Time: 11/29/20 21:03 Admit Provider: Trey Vargas Attending Provider: Trey Vargas Primary Care Provider: Linda Mccray ED Provider: Cholo Marcelino Home Meds and New Rx's Prescriptions: No Action aspirin 81 MG tablet,chewable 81 mg PO DAILY RF: 0 warfarin [Coumadin] 10 MG tablet 0 - 1 tab PO DIRECTED Qty: 90 RF: 4 warfarin [Coumadin] 2 mg tablet 2 mg PO as directed Qty: 30 RF: 0 enoxaparin [Lovenox] 30 mg/0.3 mL Syringe 30 mg subcut Q12H Qty: 4 RF: 0 Medical Decision Making 70-year-old male with a past medical history of multiple previous pneumothoraces, pacemaker, heart valve replacement, hypertension, anticoagulation with warfarin secondary to heart valves, presents today for evaluation of left-sided chest pain. Just a few days ago the patient noted spontaneous pneumothorax, chest tube was placed in the left chest wall, he was discharged just earlier today. During the patient's stay here he was noted to have a notable air leak when the initial chest tube was first placed, this eventually resolved with time. Later today he developed pain in his left chest and shortness of breath which she describes as identical to his previous pneumothorax. He denies any falls or trauma otherwise. No other complaints this time. He is still currently on his Lovenox bridge that was given at time of discharge. No other complaints, no other modifying factors. Initial portable chest x-ray was performed immediately upon his arrival, shows notable left-sided pneumothorax, the patient does not show clinical evidence of a tension pneumothorax at this time though. Pain well controlled, vital signs stable. Pigtail chest tube was placed without complication or difficulty, Initially the Heimlich valve was just used, the patient tolerated this well, however postprocedure chest x-ray did not show significant resolution of pneumothorax. We did contact the surgeon and discussed the case with him, and he stated that on the patient's previous admission he did require low suction. A pleurevac was attached to the chest tube at low 20 mmHg intermittent suction. Patient tolerated this well, there was concern for an air leak, this was also discussed with the surgeon, he stated that the patient did have a notable air leak for the first day after chest tube was placed last time. Patient will be admitted under the surgeon Dr. Wylie. I have extensively reviewed the treatment plan with the patient. I have addressed all patient concerns at this time. I have also discussed the plan with the admitting physician and they agree with the current assessment and plan and have agreed to assume responsibility for the patient. All parties demonstrate verbal understanding and agreement with our assessment and plan at this time. The documentation in this chart was dictated using TY[employer] dictation software. Please excuse any dictation errors. Additionally I did contact the patient's and discussed the case with her. FIRST: IMPRESSION: 1. Interval removal of left-sided pleural catheter with significant increase in size of now large left pneumothorax, estimated volume 50% (however could be more). 2. There is slight interval worsening of left right midline shift. This could be secondary to patient positioning/rotation, however clinical correlation is recommended to exclude symptoms of tension pneumothorax. COMMENTS: THIS REPORT CONTAINS FINDINGS THAT MAY BE CRITICAL TO PATIENT CARE. The findings were verbally communicated via telephone conference with CHOLO MARCELINO at 9:06 PM EST on 11/29/2020. The findings were acknowledged and understood. Thank you for allowing us to participate in the care of your patient. Dictated and Authenticated by: Lc Peng MD 11/29/2020 9:06 PM Eastern Time ([place] & [place]) SECOND IMPRESSION: Interval placement of left-sided pigtail pleural catheter with improving left-sided pneumothorax, still moderate in size. Thank you for allowing us to participate in the care of your patient. Dictated and Authenticated by: Lc Peng MD 11/29/2020 10:10 PM Eastern Time ([place] & [place]) Third FINDINGS: Tubes, catheters and devices: Slight interval change in position of left pigtail pleural catheter, pigtail still projecting within the left mid to inferior hemithorax. Lungs: Hyperexpanded lung jay with mild chronic atelectasis versus scarring in the right lung without focal consolidation. Persistent left basilar atelectasis. Pleural spaces: Continued improvement in left-sided pneumothorax, now small , best appreciated at the left lung base. No right-sided pneumothorax. No pleural effusion. Heart/Mediastinum: Cardiac silhouette within normal limits for size. Vasculature: Stable post aortic and mitral valve replacement. Bones/joints: Median sternotomy wires are in place. Redemonstrated several old healed right rib fractures. No acute osseous finding. Soft tissues: Stable transvenous pacemaker leads with left chest wall pacemaker. IMPRESSION: Slight interval change in positioning in left-sided pigtail pleural catheter still projecting within the mid to inferior left hemithorax with continued improvement in left-sided pneumothorax, now small. Thank you for allowing us to participate in the care of your patient. Dictated and Authenticated by: Lc Peng MD 11/29/2020 10:28 PM Eastern Time ([place] & [place]) HPI General Date/Time Provider Initiated Documentation: 11/29/20 20:45. HPI Narrative: 70-year-old male with a past medical history of multiple previous pneumothoraces, pacemaker, heart valve replacement, hypertension, anticoagulation with warfarin secondary to heart valves, presents today for evaluation of left-sided chest pain. Just a few days ago the patient noted spontaneous pneumothorax, chest tube was placed in the left chest wall, he was discharged just earlier today. During the patient's stay here he was noted to have a notable air leak when the initial chest tube was first placed, this eventually resolved with time. Later today he developed pain in his left chest and shortness of breath which she describes as identical to his previous pneumothorax. He denies any falls or trauma otherwise. No other complaints this time. He is still currently on his Lovenox bridge that was given at time of discharge. No other complaints, no other modifying factors. Related Data Home Medications Medication Instructions Recorded Confirmed aspirin 81 mg PO DAILY tab-cap 03/15/18 11/29/20 warfarin [Coumadin] 0 - 1 tab PO DIRECTED #90 tab 03/30/18 11/29/20 warfarin 2 mg tablet 2 mg PO as directed #30 tab-cap 10/09/18 08/12/20 enoxaparin [Lovenox] 30 mg SUBCUT Q12H #4 ml 11/29/20 11/29/20 Previous Rx's Medication Instructions Recorded warfarin [Coumadin] 0 - 1 tab PO DIRECTED #90 tab 03/30/18 enoxaparin [Lovenox] 30 mg SUBCUT Q12H #4 ml 11/29/20 Allergies Allergy/AdvReac Type Severity Reaction Status Date / Time No Known Allergies Allergy Verified 02/07/21 21:04 General Stated Complaint: SOB YASMIN: 1 Review of Systems All systems reviewed & are unremarkable except as noted in HPI and below PFS Medical History AV block, complete Cardiac pacemaker in situ dual lead [employer] - PG replacement 07/31/2020 Clostridium difficile colitis (09/20/16) Hematoma, postoperative History of coagulation defect Hypertension Mitral valve regurgitation replaced Pacemaker at end of battery life Surgical History Appendectomy Heart valve replaced (11/30/12) Aortic/Mitral mechanical HERNIA REPAIR (~2007) History of aortic valve replacement Pacemaker (~2009) Presence of other heart-valve replacement (11/30/12) Aortic/Mitral Tonsillectomy and adenoidectomy Family History Mother Personal history of malignant neoplasm LIVER Father Heart disease Sister No problems noted. Brother No problems noted. 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 3.ENT: Atraumatic external nose and ears. Moist MM. Neck: Symmetric, trachea midline, No thyromegaly. 4.CVS: +S1/S2, No murmurs or gallops. Peripheral pulses 2+ and equal in all extremities. Brisk capillary refill in all extremities. 5.RESP: Slightly labored respiratory effort, clear to auscultation bilaterally, no significant difference bilaterally on auscultation. No wheezes rales or rhonchi. No tracheal deviation. Old chest tube insertion site is present, no bleeding or signs of bubbles. No subcutaneous crepitus. 6.GI: Soft, Nontender/Nondistended, No hepatosplenomegaly. No guarding or rebound. 7.MSK: Normocephalic/Atraumatic, Extremities w/o deformity or ttp No cyanosis or clubbing, Normal movement of all extremities 8.Skin: Warm, Dry. No rashes or lesions. 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 Sensation grossly intact, no focal neurologic deficits. 10.Psych: (AAO) x3. Appropriate mood and affect Course Vital Signs Vital signs: Vital Signs Temperature 37.2 C 11/29/20 20:45 Pulse 110 H 11/29/20 20:45 Respiratory Rate 27 H 11/29/20 20:45 Blood Pressure 152/70 H 11/29/20 20:45 Pulse Oximetry 95 11/29/20 20:45 Temperature 37.2 C 11/29/20 20:45 Temperature Source Skin 11/29/20 20:45 Pulse 110 H 11/29/20 20:45 Respiratory Rate 27 H 11/29/20 20:45 Respiratory Effort Non-Labored 11/29/20 21:01 Blood Pressure 152/70 H 11/29/20 20:45 Blood Pressure Position Sitting 11/29/20 20:45 Pulse Oximetry 95 11/29/20 20:45 Oxygen Delivery Method Room Air 11/29/20 20:45 Oxygen Flow Rate 0 11/29/20 20:45 Pain Level 0 11/29/20 21:32 Lab/Test Results Lab/Test Results: Laboratory Tests Range/Units 11/29/20 11/29/20 11/29/20 21:00 21:00 21:00 WBC (4.4-10.8) 10^3/uL 9.18 RBC (4.36-5.78) 10^6/uL 5.20 Hgb (13.5-17.5) g/dL 15.5 D Hct (40.0-50.0) % 45.9 D MCV (80-95) fL 88.3 MCH (27.0-33.0) pg 29.8 MCHC (32.0-36.0) % 33.8 RDW (11.8-14.1) % 13.3 Plt Count (130-400) 10^3/uL 226 MPV (8.0-11.0) fL 10.1 Immature Gran % 0.3 Neutrophils % 90.3 Lymphocytes % 2.7 Monocytes % 4.5 Eosinophils % 1.9 Basophils % 0.3 Nucleated RBC % % 0 Absolute Neutrophils (1.2-6.7) 10^3/uL 8.29 H Absolute Lymphocytes (1.2-3.4) 10^3/uL 0.25 L Absolute Monocytes (0.1-0.8) 10^3/uL 0.41 Absolute Eosinophils (0.0-0.7) 10^3/uL 0.17 Absolute Basophils (0.0-0.2) 10^3/uL 0.03 PT (9.3-11.0) sec 11.4 H D INR (0.9-1.1) 1.1 APTT (21.0-27.5) sec 28.3 H Sodium (136-145) mmol/L 138 Potassium (3.5-5.1) mmol/L 4.0 Chloride (98-107) mmol/L 101 Carbon Dioxide (21.0-32.0) mmol/L 26.3 Anion Gap (3-11) mmol/L 10.7 BUN (7-18) mg/dL 20 H Creatinine (0.70-1.30) mg/dL 1.0 Estimated GFR/1.73 m2 (mL/min/1.73m2) >= 60.00 Glucose (74-106) mg/dL 102 Calcium (8.5-10.1) mg/dL 9.3 Total Bilirubin (0.2-1.0) mg/dL 0.8 AST (15-37) U/L 25 ALT (16-63) U/L 20 Alkaline Phosphatase (46-116) U/L 60 Total Protein (6.4-8.2) g/dL 8.2 Albumin (3.4-5.0) g/dL 4.3 Procedures Chest Tube Chest Tube 1: Chest Tube Location: mid axillary line Size of Sami Tube (mm): 14 Chest Tube Prep: betadine prep (Chlorhexidine prep), sterile drapes applied and sterile dressing applied Local Anesthetic: Lidocaine 1% and with Epi Amount of anesthesia used (mL): 10 Incision Made With: #11 blade Post Procedure: sutured to skin and sterile dressing applied Tube Drainage: see nurses notes Post Procedure CXR?: Yes Patient Tolerated Procedure: Yes Complications: pain Progress: Tube Thoracostomy. : Pneumothorax Procedure Summary: A time-out was completed verifying correct patient, procedure, site, positioning, and special equipment if applicable. The patient was positioned appropriately for chest tube placement. The patient?s left chest was prepped and draped in sterile fashion. 1% Lidocaine with epi was used to anesthetize the surrounding skin area. A 2.5 cm skin incision was made in the mid-axillary line at the inframammary crease just above the previous chest tube insertion scar. Utilizing the pigtail trocar device the tube was placed just adjacent to the superior aspect of the rib. The pleural space was entered and gush of air was observed. A 14 Sami pigtail thoracostomy tube was inserted over the guiding trocar device and advanced to the most proximal insertion Guide line. The chest tube was sutured securely to the skin and a sterile dressing applied. Initially the Heimlich valve was just used, the patient tolerated this well, however postprocedure chest x-ray did not show significant resolution of pneumothorax. We did contact the surgeon and discussed the case with him, and he stated that on the patient's previous admission he did require low suction. A pleurevac was attached to the chest tube at low 20 mmHg intermittent suction. Patient tolerated this well, there was concern for an air leak, this was also discussed with the surgeon, he stated that the patient did have a notable air leak for the first day after chest tube was placed last time. Estimated Blood Loss: ml?s The patient tolerated the procedure well there were no complications.
--- NOTE | 2020-11-29 22:14 | DI.RAD_ITS ---
EXAM: XR CHEST 2V PA LATERAL CLINICAL HISTORY: post chest tube TECHNIQUE: 2D digital imaging was performed. COMPARISON: CR XR CHEST 2V PA LATERAL from 11/26/2020 CR,XR XR PORTABLE CHEST AP POST LINE from 11/29/2020 FINDINGS: There is continued decrease in size of the left pneumothorax. It is small currently and best appreci ated at the inferior lung field. There is improved aeration of the left lower lobe with persistent m ild atelectasis. The lungs are otherwise unchanged. Cardiac structures are unchanged. The left pig tail catheter is again seen. It is slightly more inferior in location compared to the prior examinat ion. IMPRESSION: Continued decrease in size of the left pneumothorax which is now small. Continued re-expansion of th e left lower lobe with persistent mild atelectasis. Slightly more inferior position of the left pleu ral catheter. DATA REPOSITORY: RADIATION DOSE DELIVERED:
--- NOTE | 2020-11-29 22:20 | NUR.NOTE ---
Nursing Note: Water in Pleura Vac has bubbling and change in fluid level with patient breathing. Positive air leak. Suction turned off and Dr. Mejia spoke with patients surgeon. Patient had air leak when previous chest tube was inserted. Per Dr. Mejia patient to be on 20 cm Intermittent suction.
--- NOTE | 2020-11-29 22:28 | DI.VRAD_ITS ---
PROCEDURE INFORMATION: Exam: XR Chest, 2 Views Exam date and time: 11/29/2020 9:56 PM Age: 70 years old Clinical indication: Chest pain; Type not specified; Prior surgery; Surgery date: Post-operative (0-2 days); Patient HX: Post chest tube TECHNIQUE: Imaging protocol: XR of the chest Views: 2 views. COMPARISON: CR XR PORTABLE CHEST AP POST LINE 11/29/2020 9:39 PM FINDINGS: Tubes, catheters and devices: Slight interval change in position of left pigtail pleural catheter, pigtail still projecting within the left mid to inferior hemithorax. Lungs: Hyperexpanded lung jay with mild chronic atelectasis versus scarring in the right lung without focal consolidation. Persistent left basilar atelectasis. Pleural spaces: Continued improvement in left-sided pneumothorax, now small , best appreciated at the left lung base. No right-sided pneumothorax. No pleural effusion. Heart/Mediastinum: Cardiac silhouette within normal limits for size. Vasculature: Stable post aortic and mitral valve replacement. Bones/joints: Median sternotomy wires are in place. Redemonstrated several old healed right rib fractures. No acute osseous finding. Soft tissues: Stable transvenous pacemaker leads with left chest wall pacemaker. IMPRESSION: Slight interval change in positioning in left-sided pigtail pleural catheter still projecting within the mid to inferior left hemithorax with continued improvement in left-sided pneumothorax, now small. Dictated and Authenticated by: Lc Peng MD. Ordering:TRAVIS Emmanuel MD
[2020-11-29] MEDS: Normal Saline Flush 10 ML SYR IVP ×3 (23:16→23:56)
[2020-11-29] MEDS: Enoxaparin 30 MG/0.3 ML SYR SC (23:43)
[2020-11-29] MEDS: HYDROmorphone 2 MG/ML VIAL 1 MG IVP (23:55)
[2020-11-29] MEDS: LORazepam 0.5 MG TAB PO (23:56)
[2020-11-30] VITALS (7 sets, daily range): BP systolic 101–122; BP diastolic 63–75; PULSE 70–85; RESP 18–20; TEMP 36.4–38.3; O2SAT 96–99
[2020-11-30 07:09] LABS: Abs Immature Grans 0.03 10^3/uL (0.0-0.06); Absolute Basophil Count 0.01 10^3/uL (0.0-0.2); Absolute Eosinophil Count 0.01 10^3/uL (0.0-0.7); Absolute Lymphocyte Count 0.19 10^3/uL (1.2-3.4); Absolute Monocyte Count 0.29 10^3/uL (0.1-0.8); Basophils % 0.1; Eosinophils % 0.1; HGB 13.3 g/dL (13.5-17.5); Immature Grans % 0.4; Lymphocytes % 2.7; MCH 29.9 pg (27.0-33.0); MCHC 34.1 % (32.0-36.0); MCV 87.6 fL (80-95); MPV 9.7 fL (8.0-11.0); Monocytes % 4.1; Neutrophils % 92.6; Nucleated RBC 0 %; Platelet Count 182 10^3/uL (130-400); RBC 4.45 10^6/uL (4.36-5.78); RDW 13.3 % (11.8-14.1); RDW-SD 43.1 fL; WBC 7.03 10^3/uL (4.4-10.8)
[2020-11-30 07:19] LABS: INR 1.1 (0.9-1.1)
--- NOTE | 2020-11-30 07:21 | W.PM.PROGNOT ---
Date of Service Date of service: 11/30/20 Time of Service: : Assessment and Plan Assessment and plan (1) Tension pneumothorax, spontaneous: Status: Acute Assessment and plan: Discomfort at location of chest tube. Significant discomfort when this provider touched the dressing. Spoke with nsg regarding available pain medications. Denies any SOB He would like to speak further with Dr. Vargas regarding his treatment options. He is reluctant about the VATS procedure, this was recommended to him in the past and he declined. Subjective Subjective Interval history since last seen: Patient reports that he has significant discomfort at the site of his chest tube. Denies any SOB or chest pain. Exam Const General: cooperative, healthy appearing and in distress mild Orientation: alert and oriented x3 Resp Effort & Inspection: normal respiratory effort, no audible wheezes and no cough Objective Last Vital Signs Temp 36.8 C 11/29/20 23:45 Pulse 80 11/29/20 23:45 Resp 18 11/29/20 23:45 BP 116/72 11/29/20 23:45 Pulse Ox 95 11/29/20 23:45 Laboratory Results - last 24 hr 11/29/20 11/29/20 11/29/20 21:00 21:00 21:00 WBC 9.18 RBC 5.20 Hgb 15.5 D Hct 45.9 D MCV 88.3 MCH 29.8 MCHC 33.8 RDW 13.3 Plt Count 226 MPV 10.1 Immature Gran % 0.3 Neutrophils % 90.3 Lymphocytes % 2.7 Monocytes % 4.5 Eosinophils % 1.9 Basophils % 0.3 Nucleated RBC % 0 Absolute Neutrophils 8.29 H Absolute Lymphocytes 0.25 L Absolute Monocytes 0.41 Absolute Eosinophils 0.17 Absolute Basophils 0.03 PT 11.4 H D INR 1.1 APTT 28.3 H Sodium 138 Potassium 4.0 Chloride 101 Carbon Dioxide 26.3 Anion Gap 10.7 BUN 20 H Creatinine 1.0 Estimated GFR/1.73 m2 >= 60.00 Glucose 102 Calcium 9.3 Total Bilirubin 0.8 AST 25 ALT 20 Alkaline Phosphatase 60 Total Protein 8.2 Albumin 4.3 11/30/20 06:35 WBC 7.03 RBC 4.45 Hgb 13.3 L D Hct 39.0 L MCV 87.6 MCH 29.9 MCHC 34.1 RDW 13.3 Plt Count 182 MPV 9.7 Immature Gran % 0.4 Neutrophils % 92.6 Lymphocytes % 2.7 Monocytes % 4.1 Eosinophils % 0.1 Basophils % 0.1 Nucleated RBC % 0 Absolute Neutrophils 6.50 Absolute Lymphocytes 0.19 L Absolute Monocytes 0.29 Absolute Eosinophils 0.01 Absolute Basophils 0.01 PT INR APTT Sodium Potassium Chloride Carbon Dioxide Anion Gap BUN Creatinine Estimated GFR/1.73 m2 Glucose Calcium Total Bilirubin AST ALT Alkaline Phosphatase Total Protein Albumin
[2020-11-30] MEDS: Acetaminophen 325 MG TAB 650 MG PO ×2 (07:42→19:52)
[2020-11-30] MEDS: HYDROmorphone 2 MG/ML VIAL 1 MG IVP ×2 (08:01→19:51)
--- NOTE | 2020-11-30 08:15 | DI.RAD_ITS ---
EXAM: XR PORTABLE CHEST AP CLINICAL HISTORY: pneuothoirax TECHNIQUE: 2D digital imaging was performed. COMPARISON: CR,XR XR PORTABLE CHEST AP POST LINE from 11/29/2020 FINDINGS: No demonstrable left pneumothorax is identified. The pigtail pleural catheter is stable in position. There is continued expansion of the left lung with trace atelectasis present in the lower lobe. Th e right lung appears stable. Cardiac structures are unchanged. IMPRESSION: No pneumothorax is identified. Trace left lower lobe atelectasis. DATA REPOSITORY: RADIATION DOSE DELIVERED:
--- NOTE | 2020-11-30 08:47 | HPE_ITS ---
Date of service: 11/30/20 Time of Service: 08:48 Assessment and Plan Assessment and plan (1) Recurrent spontaneous pneumothorax: Status: Acute Assessment and plan: Patient in all likelihood will need a VATS procedure. His airleak appears to be intermittent. After leaking air significantly last night he currently has no air leak with full reexpansion of his lung. Will discuss with thoracic surgery at [facility] History of Present Illness History of Present Illness Chief Complaint: Recurrent spontaneous pneumothorax Narrative: 70-year-old gentleman who presented to the hospital November 26 at this point 10 years pneumothorax was just looked rather large.. At that time he was fully anticoagulated because of dual heart valve replacements. He underwent a percutaneous tube thoracostomy. As long demonstrated a fairly large air leak initially which then became intermittent and ultimately stopped. His lung reexpanded and 2 7 his chest tube was removed. He was discharged but returned approximately 10 hours later with recurrent symptoms. Chest x-ray at this time showed recurrent pneumothorax. The pigtail catheter was placed in the emergency room. Again a large air leak was initially noted. He does complain of more pain from his current chest tube however it is bigger diameter. Chest x-ray shows good position and this morning shows full reexpansion. This morning he has no air leak. [facility] Medical History AV block, complete Cardiac pacemaker in situ dual lead Medtronic - PG replacement 07/31/2020 Clostridium difficile colitis (09/20/16) Hematoma, postoperative History of coagulation defect Hypertension Mitral valve regurgitation replaced Pacemaker at end of battery life Surgical History Appendectomy Heart valve replaced (11/30/12) Aortic/Mitral mechanical HERNIA REPAIR (~2007) History of aortic valve replacement Pacemaker (~2009) Presence of other heart-valve replacement (11/30/12) Aortic/Mitral Tonsillectomy and adenoidectomy Family History Mother Personal history of malignant neoplasm LIVER Father Heart disease Sister No problems noted. Brother No problems noted. Social History Smoking/Tobacco Use Status: Former Tobacco Use Quit Date: 10/23/84 Smoking risk assessment performed?: Yes Drug use: Never Substance use type: does not use current occupation: formerly worked in [employer] in [employer] Current gender identity: male Do you feel safe at home: Yes Do you feel safe in your relationship?: Yes Meds Home Medications and Allergies Home Medications Medication Instructions Recorded Confirmed Type aspirin 81 mg PO DAILY tab-cap 03/15/18 11/29/20 History warfarin [Coumadin] 0 - 1 tab PO DIRECTED #90 tab 03/30/18 11/29/20 Rx warfarin 2 mg tablet 2 mg PO as directed #30 tab-cap 10/09/18 08/12/20 History enoxaparin [Lovenox] 30 mg SUBCUT Q12H #4 ml 11/29/20 11/29/20 Rx Allergies Allergy/AdvReac Type Severity Reaction Status Date / Time No Known Allergies Allergy Verified 11/29/20 21:04 Exam Const General: cooperative and frail appearing Nutritional Appearance: average body habitus HENMT Head: normal to inspection Resp Auscultation: diminished lung sounds Cardio Other: Mechanical valve sounds Results Labs Result diagrams: 11/30/20 06:35 11/29/20 21:00 Labs: Laboratory Results - last 24 hr 11/29/20 11/29/20 11/29/20 21:00 21:00 21:00 WBC 9.18 RBC 5.20 Hgb 15.5 D Hct 45.9 D MCV 88.3 MCH 29.8 MCHC 33.8 RDW 13.3 Plt Count 226 MPV 10.1 Immature Gran % 0.3 Neutrophils % 90.3 Lymphocytes % 2.7 Monocytes % 4.5 Eosinophils % 1.9 Basophils % 0.3 Nucleated RBC % 0 Absolute Neutrophils 8.29 H Absolute Lymphocytes 0.25 L Absolute Monocytes 0.41 Absolute Eosinophils 0.17 Absolute Basophils 0.03 PT 11.4 H D INR 1.1 APTT 28.3 H Sodium 138 Potassium 4.0 Chloride 101 Carbon Dioxide 26.3 Anion Gap 10.7 BUN 20 H Creatinine 1.0 Estimated GFR/1.73 m2 >= 60.00 Glucose 102 Calcium 9.3 Total Bilirubin 0.8 AST 25 ALT 20 Alkaline Phosphatase 60 Total Protein 8.2 Albumin 4.3 11/30/20 11/30/20 06:35 06:35 WBC 7.03 RBC 4.45 Hgb 13.3 L D Hct 39.0 L MCV 87.6 MCH 29.9 MCHC 34.1 RDW 13.3 Plt Count 182 MPV 9.7 Immature Gran % 0.4 Neutrophils % 92.6 Lymphocytes % 2.7 Monocytes % 4.1 Eosinophils % 0.1 Basophils % 0.1 Nucleated RBC % 0 Absolute Neutrophils 6.50 Absolute Lymphocytes 0.19 L Absolute Monocytes 0.29 Absolute Eosinophils 0.01 Absolute Basophils 0.01 PT 11.0 INR 1.1 APTT Sodium Potassium Chloride Carbon Dioxide Anion Gap BUN Creatinine Estimated GFR/1.73 m2 Glucose Calcium Total Bilirubin AST ALT Alkaline Phosphatase Total Protein Albumin Last Vital Signs Temp 100.9 F H 11/30/20 07:37 Pulse 85 11/30/20 07:37 Resp 20 11/30/20 07:37 BP 101/63 11/30/20 07:37 Pulse Ox 96 11/30/20 07:37 COVID-19 Screening Have you, or household traveled for leisure in last 14 days?: No Had IN PERSON contact w/suspected or confirmed C-19 person: No
[2020-11-30] MEDS: Polyethylene Glycol 3350 17 GM PACKET PO (09:12)
[2020-11-30] MEDS: Normal Saline 500 ML 100 ML IV (10:31)
[2020-11-30] MEDS: Normal Saline Flush 10 ML SYR IVP ×3 (10:31→22:36)
[2020-11-30] MEDS: PIPERACILLIN/TAZO 3.375 GM in Normal Saline 50 ML IVPB ×3 (10:32→22:35)
[2020-11-30] MEDS: Enoxaparin 30 MG/0.3 ML SYR SC ×2 (10:41→22:36)
--- NOTE | 2020-11-30 17:36 | INITIAL_ITS ---
- If Service Date Differs Date of service: 11/30/20 Time of Service: 17:36 Care Management Initial Assess REASON FOR HOSPITALIZATION:: Recurrent Left Pneumothorax PAST MEDICAL HISTORY/PAST SURGICAL HISTORY:: Medical History. AV block, complete. Cardiac pacemaker in situ. dual lead Medtronic - PG replacement 07/31/2020. Clostridium difficile colitis (09/20/16). Hematoma, postoperative. History of coagulation defect. Hypertension. Mitral valve regurgitation. replaced. Pacemaker at end of battery life. Surgical History. Appendectomy. Heart valve replaced (11/30/12). Aortic/Mitral mechanical. HERNIA REPAIR (~2007). History of aortic valve replacement. Pacemaker (~2009). Presence of other heart-valve replacement (11/30/12). Aortic/Mitral. Tonsillectomy and adenoidectomy PREVIOUS FUNCTIONAL STATUS/SOCIAL/FAMILY SUPPORTS:: London lives in [facility] with his , Meredith. 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 He is independent at baseline. CURRENT FUNCTIONAL STATUS:: London was sitting up in his bed when CM met with him. He reported that he met with the MD today, who stated that his lung has 'inflated', but they want him to be monitored for a day or two, since he was just sent home yesterday. He is hoping for this to be resolved non surgically, which is the approach currently. CM will continue to follow. ADVANCE DIRECTIVES:: On File, Meredith Velasquez listed as agent. Has patient been provided with info about the portal/API?: Yes Did the patient sign up for the portal?: Yes CODE STATUS:: Full Code INSURANCE COVERAGE / FINANCIAL ISSUES:: [facility] CURRENT HOME/COMMUNITY SERVICES/EQUIPMENT:: No current services or equipment. PRIMARY CARE PHYSICIAN:: Linda Mccray POTENTIAL DISCHARGE NEEDS:: follow up appointments. PATIENT/FAMILY EDUCATION NEEDS:: Review discharge instructions, discussion of self care needs. ANTICIPATED BARRIERS TO DISCHARGE:: None identified. TRANSPORTATION:: Private vehicle by . PLAN:: Anticipate London will return home when medically cleared. No anticipated services at this time. His , Meredith, will drive him home when ready via private vehicle. He will follow up with his PCP and discharge plan of care. CM will continue to follow. Readmission - Within the Past 30 Days Yes or No: Y - Date of First Admission Date of 1st Admission: 11/26/20 - Date of this Admission Date of Admission: 11/29/20 This admission was: Through ED - Office Visit Since 1st Admission Have you seen your PCP in the office since discharge?: No - I. Interview patient and/or Family Difficulty reaching your doctor or getting an office appt?: No Have you had trouble purchasing/ or taking medication?: No Have you had trouble with getting meals at home?: No Did you feel ready for discharge when you left the last time: Yes If patient did not receive services, were there orders at: No Reason there were no orders at discharge: London is independent at baseline. How do you think you became sick enough to come back?: [place] pain, sob, went to ED as indicated in discharge summary. Lung had collapsed again. - ED visits How many ED visits in the past 12 months: 3 - Assessment for Readmission Summary of readmission circumstances, based upon interviews: London was discharged yesterday, and per report, felt ready to return home. Later in the day he felt pain and shortness of breath and returned to the ED, as indicated in his discharge paperwork. His lung had collapsed again. He reported that he would like to use a non surgical approach if possible, which is the current plan. He will be monitored for a day or two before returning home. He was not home long enough for any follow up appointments/calls. CM will continue to follow.
[2020-11-30 22:16] LABS: COVID-19 RT-PCR UVMMC Result Negative (Negative)
[2020-12-01] MEDS: PIPERACILLIN/TAZO 3.375 GM in Normal Saline 50 ML IVPB ×4 (03:24→21:21)
[2020-12-01] MEDS: Normal Saline Flush 10 ML SYR IVP ×2 (03:24→11:02)
[2020-12-01 07:36] VITALS: BP 117/64; PULSE 77; RESP 16; TEMP 37.3; O2SAT 95
--- NOTE | 2020-12-01 08:51 | PGE_ITS ---
Documented by User: WASHINGTON Lee 12/01/20 08:55 Date of Service Date of service: 12/01/20 Time of Service: 08:51 Assessment and Plan Assessment and plan (1) Recurrent spontaneous pneumothorax: Status: Acute Assessment and plan: No air leak noted this morning. Patients pain has improved compared to yesterday. Will clamp chest tube for 4 hours followed by chest x-ray. Subjective Subjective Interval history since last seen: Patient denies any SOB or pain at this time. He describes the chest tube site as slightly sore. Exam Const General: cooperative, healthy appearing and comfortable Orientation: alert and oriented x3 Resp Effort & Inspection: normal respiratory effort, no audible wheezes and no cough Objective Last Vital Signs Temp 37.3 C 12/01/20 07:36 Pulse 77 12/01/20 07:36 Resp 16 12/01/20 07:36 BP 117/64 12/01/20 07:36 Pulse Ox 95 12/01/20 07:36 Laboratory Results - last 24 hr 11/29/20 21:20 SARS-CoV-2 (PCR) Negative Nasopharyn COVID-19 PCR Not Applicable Ref Test Perform Site [facility] Documented by User: Elaine Yen DO 12/02/20 20:25 Assessment and Plan Assessment and plan (1) Lung blebs: Status: Acute Assessment and plan: Patient's 4-hour chest x-ray shows no signs of any recurrent pneumothorax. Because he did have reoccurrence shortly after tube removal, I going to keep him over night with the tube clamped/on waterseal. He had no air leak on exam today. He has had a couple of pneumothoraces in the past. One was following open heart surgery. The other was following trauma in which broken ribs were involved. So I do not think either of these ,. If he continues to have problems with spontaneous pneumothoraces in the future then pleurodesis or bleb resection should be considered. We discussed what he could expect and what his limitations would be at home. Discussed labs and the etiology of spontaneous pneumo's. 30 minutes is spent with the patient today in follow-up regarding his condition and supportive care when he goes home I did personally review his x-rays today.
[2020-12-01] MEDS: Polyethylene Glycol 3350 17 GM PACKET PO (08:52)
[2020-12-01] MEDS: Enoxaparin 30 MG/0.3 ML SYR SC ×2 (11:00→22:32)
--- NOTE | 2020-12-01 13:20 | W.NUTRFU ---
Date of service: 12/01/20 Time of Service: 13:20 Nutritional Follow up NOTE: 70 year old male admitted with recurrent pneumothorax. BMI wnl. Following regular meal plan with excellent intake. Not considered at nutritional risk at this time. Will continue to follow. Time Spent in Nutritional Counseling and Treatment: 0
--- NOTE | 2020-12-01 13:37 | DI.RAD_ITS ---
EXAM: XR CHEST 2V PA LATERAL CLINICAL HISTORY: Chest tube clamp trial. TECHNIQUE: 2D digital imaging was performed. COMPARISON: CR XR PORTABLE CHEST AP from 11/30/2020 FINDINGS: MEDIASTINUM: Normal. HEART: There again seen aortic and mitral valve replacements. The transvenous pacemaker is stable. Heart size is within normal limits. PULMONARY VASCULATURE: Normal. LUNGS: The left lung appears well expanded. Unchanged scarring is seen in the right lung apex. PLEURAL SPACE: There do appear to be small bilateral pleural effusions. No pneumothorax is identifie d. The left chest tube is in place. BONE:Within normal limits for the patient's age. OTHER FINDINGS:Normal. IMPRESSION: Left chest tube in place. No demonstrable pneumothorax. DATA REPOSITORY: RADIATION DOSE DELIVERED:
--- NOTE | 2020-12-01 16:09 | PDOC.CMPRO ---
- If Service Date Differs Date of service: 12/01/20 Time of Service: 16:09 Care Management Progress Note S/O: London was sitting up in his bed listening to head phones when CM met with him. He reported that he was feeling well, and was waiting for a repeat chest xray this afternoon to determine if he will be ready for discharge. CM spoke to his MD later in the day, who reported that he will be monitored overnight, again. London did not have any concerns when CM met with him. CM will continue to follow. A: London is a 70 year old male admitted to [facility] on 11/29/20 with recurrent left pneumothorax. P: Anticipate London will return home when medically cleared. No anticipated services at this time. His , Meredith, will drive him home when ready via private vehicle. He will follow up with his PCP and discharge plan of care. CM will continue to follow.
[2020-12-01 16:15] VITALS: BP 129/68; PULSE 82; RESP 17; TEMP 37.4; O2SAT 99
[2020-12-01] MEDS: Acetaminophen 325 MG TAB 650 MG PO (16:44)
[2020-12-01 23:40] VITALS: BP 106/67; PULSE 74; RESP 18; TEMP 36.9; O2SAT 97
[2020-12-02] MEDS: Normal Saline Flush 10 ML SYR IVP ×2 (04:25→10:00)
[2020-12-02] MEDS: PIPERACILLIN/TAZO 3.375 GM in Normal Saline 50 ML IVPB ×2 (04:25→09:59)
--- NOTE | 2020-12-02 06:57 | W.PM.PROGNOT ---
Date of Service Date of service: 12/02/20 Time of Service: 06:57 Assessment and Plan Assessment and plan (1) Recurrent spontaneous pneumothorax: Status: Acute Assessment and plan: Chest tube has been clamped for nearly 24 hours, awaiting chest x-ray. If everything looks stable, will pull chest tube later today. Encouraged ambulation and hydration. Ordered Miralax to help alleviate constipation. Possible d/c home later today, following chest tube removal. Subjective Subjective Interval history since last seen: Patient denies any chest pain or SOB. he states he is feeling constipated and has not had a BM x 3 days, he is requesting the use of a laxative. Exam Const General: cooperative, healthy appearing and comfortable Orientation: alert and oriented x3 Resp Effort & Inspection: normal respiratory effort, no audible wheezes and no cough GI Inspection: normal to inspection and non-distended Objective Last Vital Signs Temp 36.9 C 12/01/20 23:40 Pulse 74 12/01/20 23:40 Resp 18 12/01/20 23:40 BP 106/67 12/01/20 23:40 Pulse Ox 97 12/01/20 23:40
--- NOTE | 2020-12-02 07:39 | DI.RAD_ITS ---
EXAM: XR PORTABLE CHEST AP INDICATION: PTX. COMPARISON: CR XR CHEST 2V PA LATERAL from 12/01/2020 TECHNIQUE: 2D digital imaging was performed. FINDINGS: Pacemaker and valve prostheses are again noted. Sternal wires are present. There are underlying emp hysematous and fibrotic changes. Right rib fractures are again noted. There is scarring in the righ t upper lobe. No pneumothorax is seen. There is no evidence of infiltrate or effusion. IMPRESSION: Emphysematous and fibrotic changes. Old rib fractures. No acute abnormality. DATA REPOSITORY: RADIATION DOSE DELIVERED:
--- NOTE | 2020-12-02 08:09 | DI.VRAD_ITS ---
PROCEDURE INFORMATION: Exam: XR Chest, 1 View Exam date and time: 12/02/2020 7:39 AM Age: 70 years old Clinical indication: Left-sided chest pain; Patient HX: Ptx TECHNIQUE: Imaging protocol: XR of the chest Views: 1 view. COMPARISON: CR XR CHEST 2V PA LATERAL 12/01/2020 1:33 PM FINDINGS: Tubes, catheters and devices: Dual chamber pacemaker overlies the left lung Lungs: Hyperinflation compatible with COPD. Probable emphysematous scarring noted at the lung apices.. Pleural spaces: Unremarkable. No pleural effusion. No pneumothorax. Heart/Mediastinum: Unremarkable. No cardiomegaly. Bones/joints: Old rib fractures noted on the right IMPRESSION: 1. Hyperinflation compatible with COPD. 2. Probable emphysematous scarring noted at the lung apices.. Dictated and Authenticated by: Jose Dee MD. Ordering:EVELYN Henry MD
[2020-12-02] MEDS: Polyethylene Glycol 3350 17 GM PACKET PO (09:27)
[2020-12-02] MEDS: Enoxaparin 30 MG/0.3 ML SYR SC ×2 (09:59→16:52)
[2020-12-02] MEDS: Normal Saline 500 ML 30 ML IV (10:01)
[2020-12-02] MEDS: Magnesium Citrate 300 ML BTL 150 ML PO (12:20)
[2020-12-02] MEDS: Bisacodyl 10 MG SUPP PR (12:20)
--- NOTE | 2020-12-02 13:30 | DI.RAD_ITS ---
EXAM: XR CHEST 2V PA LATERAL CLINICAL HISTORY: post chest tube removal TECHNIQUE: 2D digital imaging was performed. COMPARISON: CR,XR XR PORTABLE CHEST AP from 12/02/2020 FINDINGS: The previously noted left-sided chest tube has been removed. No pneumothorax is seen. The left lung appears clear. Right upper lobe scarring and right rib fractures are again noted. The heart size i s normal. Pacemaker and and valve prostheses are again noted. IMPRESSION: No evidence of pneumothorax status post removal left chest tube. DATA REPOSITORY: RADIATION DOSE DELIVERED:
--- NOTE | 2020-12-02 15:20 | W.PM.DS.N ---
Documented by User: WASHINGTON Lee 12/02/20 15:52 Date of service: 12/02/20 Time of Service: 15:21 DS: Diagnosis Discharge Diagnosis (1) Recurrent spontaneous pneumothorax: Status: Acute Discharge Plan Disposition Patient Disposition: HOME Condition: Stable Discharge Details Reason For Visit: RECURRENT LEFT PNEUOTHORAX Admit Date/Time: 11/29/20 21:03 Admit Provider: Trey Vargas Attending Provider: Trey Vargas Primary Care Provider: Linda Mccray [facility] Course Hospital Course: 70 y/o male with a history of pneumothorax, AV block with pacemaker presented to the ER initially on 11/26/20 with complaints of SOB, he was found to have had a left sided sponatenous pneumothorax. Chest tube was placed and remained in place until 11/29. once no air leaks were observed the chest tube was removed and the patient was d/c home in stable condition. He returned to the ER the following day on 11/30 with complaints of recurrent SOB and was found to again have a left sided pneumothorax. Chest tube was again inserted with reinflation of the lung, this remained in place, on 12/01 no air leaks were noted. The chest tube was clamped for 24 hours, without any return of his pneumothorax. The chest tube was removed today 12/02 and after ~4 hours, chest x-ray did not show any recurrence. OF note patient c/o constipation and was given mag citrate and a suppository without having a BM. He was encouraged to continue to stay hydrated to allow these to take effect. Home Meds and New Rx's Prescriptions: Continued aspirin 81 MG tablet,chewable 81 mg PO DAILY RF: 0 warfarin [Coumadin] 10 MG tablet 0 - 1 tab PO DIRECTED Qty: 90 RF: 4 enoxaparin [Lovenox] 30 mg/0.3 mL Syringe 30 mg subcut Q12H Qty: 4 RF: 0 Discontinued warfarin [Coumadin] 2 mg tablet 2 mg PO as directed Qty: 30 RF: 0 Discharge Instructions Instructions: Spontaneous Pneumothorax (DC), Spontaneous Pneumothorax (GEN) Additional Instructions: Please schedule a follow up appointment with your primary care provider within 2 weeks. No heavy lifting, pushing or pulling. No strenuous bending or twisting. As you bridge back on to your Warfarin, you were started back on your Warfarin today (12/02), continue to take your regularly scheduled warfarin of 10mg each day. You will also take the Lovenox shots twice per day for the next two days (12/03 and 12/04). By 12/05 continue your warfarin only. You should follow up with your PCP to ensure that you are within a therapeutic level at your follow up appointment. Stand Alone Forms: Nursing Discharge Form Referrals: Linda Mccray [Primary Care Provider] - 12/09/20 9:40 am Activity:: Activity as Tolerated Equipment/Supplies:: No Equipment Needed Diet:: Normal Diet Discharge Orders Discharge Orders: Discharge Order (Routine); Ordered 12/02/20 Ordered By: Tamara Damico DS: Summary Time Spent with Patient providing and/or coordinating discharge services: Less than 30 minutes Status at Discharge Functional status at discharge: independent ambulation Overall status at discharge: patient is back to baseline Mental Status: mental status grossly normal Speech and Movement: speech and movement normal Mood: congruent mood Affect: normal affect Exam Psych Mental Status: mental status grossly normal Speech and Movement: speech and movement normal Mood: congruent mood Affect: normal affect DS: Data Vitals/I&O Vitals and I&O: Vital Signs Temperature 36.9 C 12/01/20 23:40 Temperature Source Tympanic 12/01/20 23:40 Pulse 74 12/01/20 23:40 Pulse Rhythm Regular 12/02/20 09:56 Pulse 77 11/29/20 22:16 Respiratory Rate 18 12/01/20 23:40 Respiratory Effort Non-Labored 12/02/20 09:56 Respiratory Depth Normal 12/02/20 09:56 Respiratory Pattern Normal 12/02/20 09:56 Blood Pressure 106/67 12/01/20 23:40 Blood Pressure Mean 67 11/29/20 22:16 Blood Pressure Position Sitting 11/29/20 20:45 Pulse Oximetry 97 12/01/20 23:40 Oxygen Delivery Method Room Air 12/01/20 23:40 Oxygen Flow Rate 0 12/01/20 23:40 Pain Level 0 12/01/20 23:40 Intake & Output 12/01/20 12/02/20 12/02/20 18:59 06:59 18:59 Intake Total 830 / 940 110 / 940 600 / 600 Output Total 350 / 350 Balance 830 / 940 110 / 940 250 / 250 Intake: IV 100 / 210 110 / 210 Oral 730 / 730 600 / 600 Output: Urine 350 / 350 Other: Urine Color Yellow Urine Appearance Clear Clear Clear Comment reports voiding independently Voiding Methods Toilet Urinal Data Completed and Pending Labs on day of discharge: Preliminary micro results at discharge 11/30/20 10:00 Blood Culture - Preliminary Blood NO GROWTH 48 HOURS 11/30/20 09:50 Blood Culture - Preliminary Blood NO GROWTH 48 HOURS [facility] Medical History AV block, complete Cardiac pacemaker in situ dual lead Medtronic - PG replacement 07/31/2020 Clostridium difficile colitis (09/20/16) Hematoma, postoperative History of coagulation defect Hypertension Mitral valve regurgitation replaced Pacemaker at end of battery life Surgical History Appendectomy Heart valve replaced (11/30/12) Aortic/Mitral mechanical HERNIA REPAIR (~2007) History of aortic valve replacement Pacemaker (~2009) Presence of other heart-valve replacement (11/30/12) Aortic/Mitral Tonsillectomy and adenoidectomy Family History Mother Personal history of malignant neoplasm LIVER Father Heart disease Sister No problems noted. Brother No problems noted. 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[employer] Current gender identity: male Do you feel safe at home: Yes Do you feel safe in your relationship?: Yes Documented by User: Madonna Kenyon MD 12/02/20 16:22 Discharge Plan Disposition Patient Disposition: HOME Condition: Stable Discharge Details Reason For Visit: RECURRENT LEFT PNEUOTHORAX Admit Date/Time: 11/29/20 21:03 Admit Provider: Trey Vargas Attending Provider: Trey Vargas Primary Care Provider: Linda Mccray [facility] Course Hospital Course: 70 y/o male with a history of pneumothorax, AV block with pacemaker presented to the ER initially on 11/26/20 with complaints of SOB, he was found to have had a left sided sponatenous pneumothorax. Chest tube was placed and remained in place until 11/29. once no air leaks were observed the chest tube was removed and the patient was d/c home in stable condition. He returned to the ER the following day on 11/30 with complaints of recurrent SOB and was found to again have a left sided pneumothorax. Chest tube was again inserted with reinflation of the lung, this remained in place, on 12/01 no air leaks were noted. The chest tube was clamped for 24 hours, without any return of his pneumothorax. The chest tube was removed today 12/02 and after ~4 hours, chest x-ray did not show any recurrence. OF note patient c/o constipation and was given mag citrate and a suppository without having a BM. He was encouraged to continue to stay hydrated to allow these to take effect. Home Meds and New Rx's Prescriptions: Continued aspirin 81 MG tablet,chewable 81 mg PO DAILY RF: 0 warfarin [Coumadin] 10 MG tablet 0 - 1 tab PO DIRECTED Qty: 90 RF: 4 enoxaparin [Lovenox] 30 mg/0.3 mL Syringe 30 mg subcut Q12H Qty: 4 RF: 0 Discontinued warfarin [Coumadin] 2 mg tablet 2 mg PO as directed Qty: 30 RF: 0 Discharge Instructions Instructions: Spontaneous Pneumothorax (DC), Spontaneous Pneumothorax (GEN) Additional Instructions: Please schedule a follow up appointment with your primary care provider within 2 weeks. No heavy lifting, pushing or pulling. No strenuous bending or twisting. As you bridge back on to your Warfarin, you were started back on your Warfarin today (12/02), continue to take your regularly scheduled warfarin of 10mg each day. You will also take the Lovenox shots twice per day for the next two days (12/03 and 12/04). By 12/05 continue your warfarin only. You should follow up with your PCP to ensure that you are within a therapeutic level at your follow up appointment. Stand Alone Forms: Nursing Discharge Form Referrals: Linda Mccray [Primary Care Provider] - 12/09/20 9:40 am Activity:: Activity as Tolerated Equipment/Supplies:: No Equipment Needed Diet:: Normal Diet Discharge Orders Discharge Orders: Discharge Order (Routine); Ordered 12/02/20 Ordered By: Tamara Damico [facility] Medical History AV block, complete Cardiac pacemaker in situ dual lead Medtronic - PG replacement 07/31/2020 Clostridium difficile colitis (09/20/16) Hematoma, postoperative History of coagulation defect Hypertension Mitral valve regurgitation replaced Pacemaker at end of battery life Surgical History Appendectomy Heart valve replaced (11/30/12) Aortic/Mitral mechanical HERNIA REPAIR (~2007) History of aortic valve replacement Pacemaker (~2009) Presence of other heart-valve replacement (11/30/12) Aortic/Mitral Tonsillectomy and adenoidectomy Family History Mother Personal history of malignant neoplasm LIVER Father Heart disease Sister No problems noted. Brother No problems noted. 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
[2020-12-02] MEDS: Warfarin 5 MG TAB 10 MG PO (16:53)
--- NOTE | 2020-12-02 17:57 | CMDISCH_ITS ---
- If Service Date Differs Date of service: 12/02/20 Time of Service: 17:57 LACE Index Scoring Tool - Questions: Length of Stay (in days): 3 Acuity (Admit via E.D.?): Yes E.D. Visits: 3 - Answers: Total Score: 9 Risk of Readmission: Low Risk Care Management Discharge Reason for Hospitalization: Recurrent Left Pneumothorax Discharge Plan: [place] will return home with no additional services. His will drive him home via private vehicle. He will follow up with his surgeon, Diana GOTTI, and discharge plan of care. He feels ready for discharge. Patient/Family Education Needs: Review discharge instructions regarding activity and medications, discussion of self care needs.
--- NOTE | 2020-12-03 14:41 | CHAPLAIN ---
I visited [place] twice while he was here. He is [employer] and connected to [facility], the [employer] in [place]. He's kept in touch with this , Meredith, while he's been here.
== END 2020-12-02 17:00 | disposition home or self-care (01) | DRG 201 ==
LOC: ER 21:21 → MS 22:34
PROVIDERS: Physician Assistant; Admitting Provider Surgery; Emergency Provider Student in an Organized Health Care Education/Training Program; PCP Family Medicine; Visit Provider Surgery
DX: J93.0 Spontaneous tension pneumothorax (principal); Z95.0 Presence of cardiac pacemaker; I10 Essential (primary) hypertension; Z79.01 Long term (current) use of anticoagulants; Z95.2 Presence of prosthetic heart valve; K59.00 Constipation, unspecified
CPT/HCPCS: 32551; 36410; 36415; 71045; 80053; 87040; 96374; 99221; 99232; 99239; 99285; U0003; U0005; 71046; 85025; 85610; 85730; 87070; 87205; 99281; J1650; J2270; J2405; J2543

== ENCOUNTER 2021-03-03 06:31 | Inpatient (IN) | payer MEDICARE, BC, SELFPAY ==
[2021-03-03] VITALS (30 sets, daily range): BP systolic 114–150; BP diastolic 61–99; PULSE 62–82; RESP 13–22; TEMP 36.3–36.7; O2SAT 95–100
--- NOTE | 2021-03-03 06:30 | RT.EKG_ITS ---
APPROVED REPORT Exam: Resting ECG Reason for Exam: short of breath Patient Location: E HR:70 bpm ECG Measurements Heart Rate 70 AXIS VT 211 P 1 QRSd 158 QRS 157 QT 462 T -13 QTc 501 Conclusion Atrial-sensed ventricular-paced rhythm...ventricular pacing tracks p-waves Physician: Rate 70, atrial sensed, ventricularly paced rhythm, good capture. Negative for SCARBOSSA criterion
--- NOTE | 2021-03-03 06:30 | DI.RAD_ITS ---
Exam(s) XR PORTABLE CHEST AP EXAM: XR PORTABLE CHEST AP CLINICAL HISTORY: pneumothorax. TECHNIQUE: 2D digital imaging was performed. COMPARISON: CR XR PORTABLE CHEST AP POST LINE from 03/03/2021 FINDINGS: This study performed 03/03/2021 6:48 a.m. is submitted to me for interpretation on today's 03/04/2021 at 8:21 a.m.. Chest x-ray performed yesterday following left chest tube placement was dictated yesterday. There is a prominent left-sided pneumothorax and shift of midline structures towards the right side, indicating an element of tension. No acute rib fractures on left side noted. Multiple subacute appearing fractures in the opposite-rig ht side are noted. There is sternotomy wires and prosthetic aortic and mitral valves and bipolar left subclavian pacemak er with lead tip in are in RV and normal heart size. No pulmonary edema. No pleural effusions evide nt. IMPRESSION: Prominent left-sided pneumothorax with evidence of tension pneumothorax. Shift of midline structures towards the right side. DATA REPOSITORY: RADIATION DOSE DELIVERED: All CT scans at this facility use at least one of these dose optimization techniques: automated exposure control; mA and/or kV adjustment per patient size (includes targeted e xams where dose is matched to clinical indication); or iterative reconstruction.
--- NOTE | 2021-03-03 06:46 | ED.GENADUL_ITS ---
Discharge Plan Disposition Patient Disposition: [facility] INPATIENT Condition: Improving Discharge Details Chief Complaint: SOB Clinical Impression: Pneumothorax on left Primary Care Provider: Linda Mccray ED Provider: Cholo Mejia Home Meds and New Rx's Prescriptions: No Action warfarin [Coumadin] 10 MG tablet 0 - 1 tab PO DIRECTED Qty: 90 RF: 4 Medical Decision Making 70-year-old male with a past medical history of multiple previous pneumothoraces, pacemaker, heart valve replacement, hypertension, anticoagulation with warfarin secondary to heart valves, with his most recent pneumothorax being 3 months ago presents today for mild shortness of breath. The patient states that when he woke up this morning he had some mild shortness of breath in his left chest which she states felt similar to his previous pneumothoraces. He states he did do some funny atypical lifting yesterday, but did go to sleep without any significant pain. With his multiple histories of pulmonary problems he came in for further assessment. He denies feeling like there is an elephant sitting on his chest. He denies any trauma. He denies any arm neck or shoulder pain. No other complaints at this time. No other modifying factors. Exam demonstrates equal breath sounds on each side, no crackles rhonchi or rales. Bedside ultrasound on the right lung demonstrates normal movement, left lung demonstrates slightly reduced seashore sign, does not demonstrate barcode sign. However it does appear slightly atypical and the movement itself of the lung appears limited. Unsure if this represents small pneumothorax or potential for a bleb. We will get chest x-ray to confirm as clinically the patient does not show evidence of a tension pneumothorax. Additionally symptoms could be a component of atypical cardiac ACS, or other abnormality. Will monitor and evaluate for these as well. 830 CBC normal, INR is 1.5, renal function good, troponin normal, EKG unremarkable. Chest x-ray does show pneumothorax, I suspect the reason why it looked like there is more appropriate lung sliding on the superior aspect of his exam was because of his chronic scarring keeping the top part of his lung tach up. Discussed the case with Dr. Kenyon, and she agrees with need for chest tube, recommends previous placement location. She will admit the patient. Chest tube placed, initial attempt demonstrated notable scarring which was challenging to get through, read superiorly 1 rib space, and no complication there. tolerated procedure well and had symptomatic improvement after chest tube. Repeat chest x-ray shows in place pigtail thoracotomy tube. I have extensively reviewed the treatment plan and discharge instructions with the patient. I have addressed all patient concerns at this time. The patient was made aware of what symptoms to monitor for that would warrant a return to the emergency department. Discussed the plan with the patient, they demonstrate verbal understanding and agreement with our assessment and plan at this time. The documentation in this chart was dictated using [employer] dictation software. Please excuse any dictation errors. EKG 6: 43 Rate 70, atrial sensed, ventricularly paced rhythm, good capture. Negative for SCARBOSSA criterion FINDINGS: Lungs: Hyperinflation compatible with COPD . Patchy opacity on the right may reflect pneumonia or chronic interstitial disease . Pleural spaces: Left-sided pneumothorax measures 20% . Heart/Mediastinum: Unremarkable. No cardiomegaly. Bones/joints: Multiple old right-sided rib fracture deformities IMPRESSION: 1. Hyperinflation compatible with COPD. 2. Left-sided pneumothorax measures 20%. 3. Patchy opacity on the right may reflect pneumonia or chronic interstitial disease. Thank you for allowing us to participate in the care of your patient. Dictated and Authenticated by: Jose Dee MD 03/03/2021 7:42 AM Eastern Time ([place] & [place]) FINDINGS: There has been interval placement of a left-sided pigtail-type chest tube. Significant sized left pneumothorax is still seen but there is no shift of midline structures at the present time. Nodular density projected over the lower left pleural space is probably the breast nipple. Heart size unchanged. Sternotomy wires and bipolar left subclavian pacemaker wires again noted with lead tips in are in RV and there prosthetic mitral and aortic valves again noted. There is no pulmonary edema. Multiple right-sided rib fractures which appears subacute are again noted. Mild infiltrate in the right upper lobe versus scarring. No pleural effusions. IMPRESSION: Left-sided pigtail drainage/thoracotomy tube. Mediastinal structures are presently midline.Persistent left pneumothorax. Other findings as above. HPI General Date/Time Provider Initiated Documentation: 03/03/21 06:31 . HPI Narrative: 70-year-old male with a past medical history of multiple previous pneumothoraces, pacemaker, heart valve replacement, hypertension, anticoagulation with warfarin secondary to heart valves, with his most recent pneumothorax being 3 months ago presents today for mild shortness of breath. The patient states that when he woke up this morning he had some mild shortness of breath in his left chest which she states felt similar to his previous pneumothoraces. He states he did do some funny atypical lifting yesterday, but did go to sleep without any significant pain. With his multiple histories of pulmonary problems he came in for further assessment. He denies feeling like there is an elephant sitting on his chest. He denies any trauma. He denies any arm neck or shoulder pain. No other complaints at this time. No other modifying factors. Related Data Home Medications Medication Instructions Recorded Confirmed warfarin [Coumadin] 0 - 1 tab PO DIRECTED #90 tab 03/30/18 03/03/21 Previous Rx's Medication Instructions Recorded warfarin [Coumadin] 0 - 1 tab PO DIRECTED #90 tab 03/30/18 Allergies Allergy/AdvReac Type Severity Reaction Status Date / Time No Known Allergies Allergy Verified 03/03/21 06:40 General Stated Complaint: SOB YASMIN: 2 Review of Systems All systems reviewed & are unremarkable except as noted in HPI and below PFSH Medical History AV block, complete Cardiac pacemaker in situ dual lead Medtronic - PG replacement 07/31/2020 Clostridium difficile colitis (09/20/16) Hematoma, postoperative History of coagulation defect Hypertension Mitral valve regurgitation replaced Pacemaker at end of battery life Surgical History Appendectomy Heart valve replaced (11/30/12) Aortic/Mitral mechanical HERNIA REPAIR (~2007) History of aortic valve replacement Pacemaker (~2009) Presence of other heart-valve replacement (11/30/12) Aortic/Mitral Tonsillectomy and adenoidectomy Family History Mother Personal history of malignant neoplasm LIVER Father Heart disease Sister No problems noted. Brother No problems noted. 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 3.ENT: Atraumatic external nose and ears. Moist MM. Neck: Symmetric, trachea midline, No thyromegaly. 4.CVS: +S1/S2, No murmurs or gallops. Peripheral pulses 2+ and equal in all extremities. Brisk capillary refill in all extremities. 5.RESP: Unlabored respiratory effort. Clear to auscultation bilaterally. No wheezes rales or rhonchi, no crepitus in the chest, no subcutaneous crepitus, lung sounds appear equal. 6.GI: Soft, Nontender/Nondistended, No hepatosplenomegaly. No guarding or rebound. 7.MSK: Normocephalic/Atraumatic, Extremities w/o deformity or ttp No cyanosis or clubbing, Normal movement of all extremities 8.Skin: Warm, Dry. No rashes or lesions. 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 Sensation grossly intact, no focal neurologic deficits. 10.Psych: (AAO) x3. Appropriate mood and affect Course Vital Signs Vital signs: Vital Signs Temperature 36.6 C 03/03/21 06:35 Pulse 78 03/03/21 06:35 Respiratory Rate 18 03/03/21 06:35 Blood Pressure 131/74 03/03/21 06:35 Pulse Oximetry 95 03/03/21 06:35 Temperature 36.6 C 03/03/21 06:35 Temperature Source Temporal Artery Scan 03/03/21 06:35 Pulse 78 03/03/21 06:35 Respiratory Rate 16 03/03/21 06:41 Respiratory Effort Non-Labored 03/03/21 06:41 Respiratory Depth Normal 03/03/21 06:41 Respiratory Pattern Normal 03/03/21 06:41 Blood Pressure 131/74 03/03/21 06:35 Blood Pressure Position Sitting 03/03/21 06:35 Pulse Oximetry 95 03/03/21 06:35 Oxygen Delivery Method Room Air 03/03/21 06:35 Oxygen Flow Rate 0 03/03/21 06:35 Pain Level 0 03/03/21 06:35 Procedures Chest Tube Chest Tube 1: Chest Tube Location: mid axillary line and fifth interspace Size of Haitian Tube (mm): 14 Chest Tube Prep: betadine prep and sterile drapes applied Local Anesthetic: Bupivicaine 0.5% Amount of anesthesia used (mL): 12 Incision Made With: #10 blade Post Procedure: sutured to skin and sterile dressing applied Tube Drainage: see nurses notes Post Procedure CXR?: Yes Patient Tolerated Procedure: Yes
[2021-03-03 06:56] LABS: Abs Immature Grans 0.02 10^3/uL (0.0-0.06); Absolute Basophil Count 0.07 10^3/uL (0.0-0.2); Absolute Eosinophil Count 0.28 10^3/uL (0.0-0.7); Absolute Lymphocyte Count 1.12 10^3/uL (1.2-3.4); Absolute Monocyte Count 0.64 10^3/uL (0.1-0.8); HCT 41.3 % (40.0-50.0); HGB 13.6 g/dL (13.5-17.5); Immature Grans % 0.3; Lymphocytes % 15.9; MCH 29.6 pg (27.0-33.0); MCHC 32.9 % (32.0-36.0); MCV 89.8 fL (80-95); MPV 9.5 fL (8.0-11.0); Monocytes % 9.1; Neutrophils % 69.7; Nucleated RBC 0 %; Platelet Count 206 10^3/uL (130-400); RDW 13.5 % (11.8-14.1); RDW-SD 44.7 fL; WBC 7.03 10^3/uL (4.4-10.8)
[2021-03-03 07:12] LABS: ALT 24 U/L (16-63); AST 26 U/L (15-37); Albumin 4.1 g/dL (3.4-5.0); Alkaline Phosphatase 52 U/L (46-116); Anion Gap 6.8 mmol/L (3-11); BUN 21 mg/dL (7-18); Bilirubin, Total 0.4 mg/dL (0.2-1.0); CO2 29.2 mmol/L (21.0-32.0); Calcium 9.1 mg/dL (8.5-10.1); Chloride 104 mmol/L (98-107); Glucose 89 mg/dL (74-106); Potassium 4.2 mmol/L (3.5-5.1); Sodium 140 mmol/L (136-145); Total Protein 7.6 g/dL (6.4-8.2)
[2021-03-03 07:14] LABS: INR 1.5 (0.9-1.1); PTT Activated 31.4 sec (21.0-27.5); Prothrombin Time 15.3 sec (9.3-11.0)
[2021-03-03 07:17] LABS: Troponin I < 0.05 ng/mL (<0.06)
--- NOTE | 2021-03-03 07:42 | DI.VRAD_ITS ---
PROCEDURE INFORMATION: Exam: XR Chest Exam date and time: 03/03/2021 6:56 AM Age: 70 years old Clinical indication: Other: Pneumothorax TECHNIQUE: Imaging protocol: XR of the chest. Views: 1 view. COMPARISON: CR XR CHEST 2V PA LATERAL 12/02/2020 2:33 PM FINDINGS: Lungs: Hyperinflation compatible with COPD . Patchy opacity on the right may reflect pneumonia or chronic interstitial disease . Pleural spaces: Left-sided pneumothorax measures 20% . Heart/Mediastinum: Unremarkable. No cardiomegaly. Bones/joints: Multiple old right-sided rib fracture deformities IMPRESSION: 1. Hyperinflation compatible with COPD. 2. Left-sided pneumothorax measures 20%. 3. Patchy opacity on the right may reflect pneumonia or chronic interstitial disease. Dictated and Authenticated by: Jose Dee MD. Ordering:TRAVIS Emmanuel MD
--- NOTE | 2021-03-03 08:10 | DI.RAD_ITS ---
Exam(s) XR PORTABLE CHEST AP POST LINE EXAM: XR PORTABLE CHEST AP POST LINE CLINICAL HISTORY: chest tube insertion. TECHNIQUE: 2D digital imaging was performed. COMPARISON: CR,XR XR PORTABLE CHEST AP from 03/03/2021 FINDINGS: There has been interval placement of a left-sided pigtail-type chest tube. Significant sized left pn eumothorax is still seen but there is no shift of midline structures at the present time. Nodular density projected over the lower left pleural space is probably the breast nipple. Heart size unchanged. Sternotomy wires and bipolar left subclavian pacemaker wires again noted with lead tips in are in RV and there prosthetic mitral and aortic valves again noted. There is no pulmon jenny edema. Multiple right-sided rib fractures which appears subacute are again noted. Mild infiltra te in the right upper lobe versus scarring. No pleural effusions. IMPRESSION: Left-sided pigtail drainage/thoracotomy tube. Mediastinal structures are presently midline.Persisten t left pneumothorax. Other findings as above. DATA REPOSITORY: RADIATION DOSE DELIVERED: All CT scans at this facility use at least one of these dose optimization techniques: automated exposure control; mA and/or kV adjustment per patient size (includes targeted e xams where dose is matched to clinical indication); or iterative reconstruction.
[2021-03-03 08:39] LABS: Source Nasal/Nares
[2021-03-03] MEDS: Omeprazole 20 MG CAPCR PO (09:20)
[2021-03-03] MEDS: Docusate Sodium 100 MG CAP PO ×3 (09:20→20:14)
[2021-03-03 10:00] LABS: Troponin I < 0.05 ng/mL (<0.06)
[2021-03-03 13:36] LABS: COVID-19 PCR Negative (Negative)
--- NOTE | 2021-03-03 16:11 | W.PM.HP.N ---
Date of service: 03/03/21 Time of Service: 16:11 Assessment and Plan Assessment and plan (1) Recurrent spontaneous pneumothorax: Status: Acute Assessment and plan: Chest tube in place, on suction. Significant air leak noted. Sp02 98% on 2L Mild pain surrounding chest tube site. Continue warfarin. Activity as tolerated within the room. Regular diet. Discussed and strongly encouraged Mr. Neri to follow up with thoracic surgery at [facility] for evaluation and discussion of a more emt intermediate treatment plan for his recurrent pneumothorax. Chest tube will remain in place, awaiting for air leak to resolve. This took several days, during his last admission in November 2020. 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 The patient reports that he woke up this morning with complaints of mild SOB, which he expressed is how he has felt with previous events of spontaneous pneumothorax. A pigtail chest tube was placed in the ER. Chest tube is hooked up to suction and the patient has a significant air leak. He denies any chest pain at this time and his dyspnea has improved following chest tube insertion and use of supplemental O2. He expresses having some pain, around the chest tube site. Review of Systems Constitutional Constitutional: Reports as per [facility] Medical History AV block, complete Cardiac pacemaker in situ dual lead Medtronic - PG replacement 07/31/2020 Clostridium difficile colitis (09/20/16) Hematoma, postoperative History of coagulation defect Hypertension Mitral valve regurgitation replaced Pacemaker at end of battery life Surgical History Appendectomy Heart valve replaced (11/30/12) Aortic/Mitral mechanical HERNIA REPAIR (~2007) History of aortic valve replacement Pacemaker (~2009) Presence of other heart-valve replacement (11/30/12) Aortic/Mitral Tonsillectomy and adenoidectomy Family History Mother Personal history of malignant neoplasm LIVER Father Heart disease Sister No problems noted. Brother No problems noted. 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 Current gender identity: male Do you feel safe at home: Yes Do you feel safe in your relationship?: Yes Meds Allergies and Home Medications Allergies Allergy/AdvReac Type Severity Reaction Status Date / Time No Known Allergies Allergy Verified 03/03/21 06:40 Home Medications Medication Instructions Recorded Confirmed Type warfarin [Coumadin] 0 - 1 tab PO DIRECTED #90 tab 03/30/18 03/03/21 Rx Exam Const General: cooperative and comfortable Orientation: alert and oriented x3 Resp Effort & Inspection: normal respiratory effort, no audible wheezes and cough Auscultation: diminished lung sounds on the left Other: Pig tail chest tube in place on left side. Cardio Rate: regular rate Rhythm: regular rhythm Heart Sounds: S1 normal, S2 normal and no murmurs Results Labs Result diagrams: 03/03/21 06:48 03/03/21 06:48 Labs: Laboratory Results - last 24 hr 03/03/21 03/03/21 03/03/21 06:48 06:48 06:48 WBC 7.03 RBC 4.60 Hgb 13.6 Hct 41.3 MCV 89.8 MCH 29.6 MCHC 32.9 RDW 13.5 Plt Count 206 MPV 9.5 Immature Gran % 0.3 Neutrophils % 69.7 Lymphocytes % 15.9 Monocytes % 9.1 Eosinophils % 4.0 Basophils % 1.0 Nucleated RBC % 0 Absolute Neutrophils 4.90 Absolute Lymphocytes 1.12 L Absolute Monocytes 0.64 Absolute Eosinophils 0.28 Absolute Basophils 0.07 PT 15.3 H INR 1.5 H APTT 31.4 H Sodium 140 Potassium 4.2 Chloride 104 Carbon Dioxide 29.2 Anion Gap 6.8 BUN 21 H Creatinine 1.0 Estimated GFR/1.73 m2 >= 60.00 Glucose 89 Calcium 9.1 Total Bilirubin 0.4 AST 26 ALT 24 Alkaline Phosphatase 52 Troponin I < 0.05 Total Protein 7.6 Albumin 4.1 COVID-19 Source SARS-CoV-2 (PCR) 03/03/21 03/03/21 08:35 09:37 WBC RBC Hgb Hct MCV MCH MCHC RDW Plt Count MPV Immature Gran % Neutrophils % Lymphocytes % Monocytes % Eosinophils % Basophils % Nucleated RBC % Absolute Neutrophils Absolute Lymphocytes Absolute Monocytes Absolute Eosinophils Absolute Basophils PT INR APTT Sodium Potassium Chloride Carbon Dioxide Anion Gap BUN Creatinine Estimated GFR/1.73 m2 Glucose Calcium Total Bilirubin AST ALT Alkaline Phosphatase Troponin I < 0.05 Total Protein Albumin COVID-19 Source Nasal/nares SARS-CoV-2 (PCR) Negative Last Vital Signs Temp 36.3 C L 03/03/21 15:36 Pulse 64 03/03/21 15:36 Resp 18 03/03/21 15:36 BP 124/71 03/03/21 15:36 Pulse Ox 98 03/03/21 15:36 COVID-19 Screening Have you, or household traveled for leisure in last 14 days?: No Had IN PERSON contact w/suspected or confirmed C-19 person: No
[2021-03-03] MEDS: Warfarin 5 MG TAB 10 MG PO (20:14)
[2021-03-03] MEDS: Normal Saline Flush 10 ML SYR IVP (22:01)
[2021-03-04] VITALS (7 sets, daily range): BP systolic 99–123; BP diastolic 63–75; PULSE 68–86; RESP 16–18; TEMP 36.4–37.1; O2SAT 91–97
--- NOTE | 2021-03-04 | DI.RAD_ITS ---
Exam(s) XR PORTABLE CHEST AP EXAM: XR PORTABLE CHEST AP CLINICAL HISTORY: pneumothorax. TECHNIQUE: 2D digital imaging was performed. COMPARISON: CR XR PORTABLE CHEST AP POST LINE from 03/03/2021 FINDINGS: Left-sided pigtail chest tube is again noted. However, the size of the left pneumothorax has not dec reased and indeed is slightly larger, approximately 70 percent. No prominent shift of midline struct ures. No ipsilateral pleural effusion. The opposite-right lung appears unchanged with some increase d markings in the right upper lobe region and multiple partially healed right rib fractures noted. T here is no pleural effusion or pneumothorax on the right side. Sternotomy wires and bipolar pacemaker again noted as are prosthetic mitral and aortic valves. IMPRESSION: Enlarging left-sided pneumothorax despite the presence of chest tube.Estimated size of the left pneum othorax is 70%. DATA REPOSITORY: RADIATION DOSE DELIVERED: All CT scans at this facility use at least one of these dose optimization techniques: automated exposure control; mA and/or kV adjustment per patient size (includes targeted e xams where dose is matched to clinical indication); or iterative reconstruction.
[2021-03-04] MEDS: Docusate Sodium 100 MG CAP PO ×2 (07:43→19:42)
--- NOTE | 2021-03-04 08:35 | W.PM.PROGNOT ---
Documented by User: WASHINGTON Lee 03/04/21 08:40 Date of Service Date of service: 03/04/21 Time of Service: 08:35 Assessment and Plan Assessment and plan (1) Recurrent spontaneous pneumothorax: Status: Acute Assessment and plan: Chest tube in place, on suction. Significant air leak noted. Continue warfarin. Activity as tolerated within the room. Regular diet. Waiting for air leak to resolve. (2) Pneumothorax on left: Status: Acute (3) Anticoagulated on warfarin: Status: Chronic Subjective Subjective Interval history since last seen: Patient denies any SOB this morning. He states that the 2L of 02 also makes him feel better. He denies having any chest pain. Exam Const General: cooperative, healthy appearing and comfortable Orientation: alert and oriented x3 Resp Effort & Inspection: normal respiratory effort, no audible wheezes and cough Other: Pigtail chest tube in place, with continuous air leak. He is on 2L of supplemental 02. Objective Last Vital Signs Temp 37 C 03/04/21 07:15 Pulse 70 03/04/21 07:15 Resp 18 03/04/21 07:15 BP 108/68 03/04/21 07:15 Pulse Ox 96 03/04/21 07:15 Laboratory Results - last 24 hr 03/03/21 03/03/21 08:35 09:37 Troponin I < 0.05 COVID-19 Source Nasal/nares SARS-CoV-2 (PCR) Negative Documented by User: Elaine Yen DO 03/04/21 12:47 Assessment and Plan Assessment and plan (1) Recurrent spontaneous pneumothorax: Status: Acute (2) Pneumothorax on left: Status: Acute (3) Anticoagulated on warfarin: Status: Chronic (4) Lung blebs: Status: Acute (5) Heart valve replaced: Status: Chronic (6) Cardiac pacemaker in situ: Status: Chronic (7) AV block, complete: Status: Acute (8) Persistent air leak: Status: Acute Assessment and plan: pt continues to have lg air leak. Dr. Kenyon interrogated the tube and the source of the leak is not due to equipment. he most likely has a bleb that is not sealing. Currently there is no bed availability at [facility]. IF his leak in not improved in the next 24 hrs- we will continue to seek a bed for the pt so he can have definitive surgery. (SX: bleb resection and pleurodecisis) He is currently hemodynamically stable.
--- NOTE | 2021-03-04 10:45 | W.NUTRFU ---
Date of service: 03/04/21 Time of Service: 10:45 Nutritional Follow up NOTE: 70 year old male admitted with pneumothorax, with PMH: HTN, pacemaker, replaced heart valve and bladder CA. BMI wnl. Following regular meal plan with excellent intake. Currently meeting nutrient and fluid needs. Not considered at nutritional risk. Will continue to follow. Time Spent in Nutritional Counseling and Treatment: 0
--- NOTE | 2021-03-04 10:53 | INITIAL_ITS ---
- If Service Date Differs Date of service: 03/04/21 Time of Service: 10:54 Care Management Initial Assess REASON FOR HOSPITALIZATION:: spontaneous pneumothorax PAST MEDICAL HISTORY/PAST SURGICAL HISTORY:: Medical History. AV block, complete. Cardiac pacemaker in situ. dual lead Medtronic - PG replacement 07/31/2020. Clostridium difficile colitis (09/20/16). Hematoma, postoperative. History of coagulation defect. Hypertension. Mitral valve regurgitation. replaced. Pacemaker at end of battery life. Surgical History. Appendectomy. Heart valve replaced (11/30/12). Aortic/Mitral mechanical. HERNIA REPAIR (~2007). History of aortic valve replacement. Pacemaker (~2009). Presence of other heart-valve replacement (11/30/12). Aortic/Mitral. Tonsillectomy and adenoidectomy PREVIOUS FUNCTIONAL STATUS/SOCIAL/FAMILY SUPPORTS:: London lives in [facility] with his , Meredith. 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 He is independent at baseline. CURRENT FUNCTIONAL STATUS:: London was sitting up in bed when CM met with him. He reported that he was feeling ok. He stated that per MD, he may be transferred [place] [facility] [place], and that the surgeon stated that a referral was placed for follow up upon his previous discharge that he was unaware of. CM read through the previous two admissions and did not see a referral for [facility], although it may have been placed from the General Surgical office. Per report, London continues to be monitored with a chest tube in place. CM will continue to follow. ADVANCE DIRECTIVES:: On file, Meredith Velasquez listed as agent. Has patient been provided with info about the portal/API?: Yes Did the patient sign up for the portal?: Yes CODE STATUS:: Full Code INSURANCE COVERAGE / FINANCIAL ISSUES:: MCR/ BCBS CURRENT HOME/COMMUNITY SERVICES/EQUIPMENT:: No current services or equipment. PRIMARY CARE PHYSICIAN:: Linda Mccray POTENTIAL DISCHARGE NEEDS:: Follow up appointments. PATIENT/FAMILY EDUCATION NEEDS:: Review discharge instructions, discussion of self care needs. ANTICIPATED BARRIERS TO DISCHARGE:: None identified. TRANSPORTATION:: Private vehicle by . PLAN:: Anticipate Londno will return home when medically cleared. No anticipated services at this time. His , Meredith, will drive him home when ready via private vehicle. He will follow up with his PCP and discharge plan of care. CM will continue to follow.
--- NOTE | 2021-03-04 13:54 | CHAPLAIN ---
London was resting in bed when I visited. He said he thinks he is being transferred to another hospital but didn't have up to date information about that. He would prefer not to leave, but knows he may have to his. His , Meredith, will be in later today. Ruel is [employer] and is connected to Leticia Deras. 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
--- NOTE | 2021-03-04 15:33 | PHA.REVIEW ---
Pharmacy Admission Review - Admission Clinical Review (Last Reviewed 03/03/21 @ 06:48 by Cholo Mejia DO) Persistent air leak (Acute) Pneumothorax on left (Acute) Lung blebs (Acute) Recurrent spontaneous pneumothorax (Acute) AV block, complete (Acute) No Known Allergies Allergy (Verified 03/03/21 06:40) Height 6 ft 1 in Weight 81.5 kg - Renal Dosing Renal Dosing: BUN 21 mg/dL (7-18) H 03/03/21 06:48 Creatinine 1.0 mg/dL (0.70-1.30) 03/03/21 06:48 Medications needing adjustments: Reviewed - Anticoagulation Anticoagulation: Hgb 13.6 g/dL (13.5-17.5) 03/03/21 06:48 Hct 41.3 % (40.0-50.0) 03/03/21 06:48 Plt Count 206 10^3/uL (130-400) 03/03/21 06:48 INR 1.5 (0.9-1.1) H 03/03/21 06:48 Creatinine 1.0 mg/dL (0.70-1.30) 03/03/21 06:48 Therapeutic Anticoagulation: Reviewed Medications: Warfarin (INR 1.5 on 03/03, no repeat lab) - Opiate Usage Evaluate Pain Scale/Pains Meds: Reviewed (TRAMADOL PRN) Scheduled Bowel Reg ordered if on Opiates?: Yes - Relevant Labs Sodium 140 mmol/L (136-145) 03/03/21 06:48 Potassium 4.2 mmol/L (3.5-5.1) 03/03/21 06:48 Chloride 104 mmol/L (98-107) 03/03/21 06:48 Electrolytes, C-Reactive P, ESR: Reviewed - DM Control DM Control: Glucose 89 mg/dL (74-106) 03/03/21 06:48 Insulin Dosing: N/A - Heart Failure/IA Heart Failure/IA: Troponin I < 0.05 ng/mL (<0.06) 03/03/21 09:37 EF%, JELENA's, B-Blockers, Diuretics: Reviewed - BP Control BP Control: Blood Pressure 123/75 Blood Pressure 99/63 Blood Pressure 108/68 Blood Pressure 108/64 If elevated: Reviewed - Qtc Review If Elevated: Reviewed (501 ON ADMISSION) - IV to PO Switch IV Medications: Reviewed - Home Meds Home Med List reviewed: Reviewed Relevent Home Meds Not ordered & why?: only maint med is warfarin -- 10mg daily dose confirmed - Current meds Current Medication Order Review: Reviewed
[2021-03-04] MEDS: Warfarin 5 MG TAB 10 MG PO (19:42)
[2021-03-05 03:22] VITALS: BP 105/66; PULSE 93; RESP 17; TEMP 36.6; O2SAT 91
--- NOTE | 2021-03-05 06:10 | DI.RAD_ITS ---
Exam(s) XR PORTABLE CHEST AP POST LINE EXAM: XR PORTABLE CHEST AP POST LINE CLINICAL HISTORY: ptx TECHNIQUE: 2D digital imaging was performed. COMPARISON: CR XR CHEST 2V PA LATERAL from 12/02/2020 CR,XR XR PORTABLE CHEST AP from 03/03/2021 CR XR PORTABLE CHEST AP POST LINE from 03/03/2021 CR,XR XR PORTABLE CHEST AP from 03/03/2021 CR XR PORTABLE CHEST AP from 03/04/2021 FINDINGS: Left chest tube is unchanged in position. There has been no change in size of the left pneumothorax. Underlying fibrotic changes are noted in both lungs. The heart size is unchanged. No infiltrate o r effusion is seen. A right rib fractures are again noted. IMPRESSION: Stable size of large left pneumothorax. DATA REPOSITORY: RADIATION DOSE DELIVERED:
--- NOTE | 2021-03-05 06:44 | DI.VRAD_ITS ---
PROCEDURE INFORMATION: Exam: XR Chest Exam date and time: 03/05/2021 12:01 AM Age: 70 years old Clinical indication: Device placement; Chest tube; Prior surgery; Surgery type: Pacer TECHNIQUE: Imaging protocol: XR of the chest. Views: 1 view. COMPARISON: CR XR PORTABLE CHEST AP 03/04/2021 8:33 AM FINDINGS: Tubes, catheters and devices: Atrioventricular pacemaker. Lungs: Hyperinflation, interstitial prominence, and asymmetric left-sided airspace disease. Pleural spaces: Large residual left pneumothorax, which has not significantly changed when compared to the previous study. Heart/Mediastinum: No cardiomegaly. Bones/joints: Rib fractures and degenerative change. IMPRESSION: Large residual left pneumothorax, which has not significantly changed when compared to the previous study. Dictated and Authenticated by: Srini Sexton MD. Ordering:EVELYN Henry MD
--- NOTE | 2021-03-05 07:52 | PGE_ITS ---
Documented by User: WASHINGTON Lee 03/05/21 08:07 Date of Service Date of service: 03/05/21 Time of Service: 07:30 Assessment and Plan Assessment and plan (1) Pneumothorax on left: Status: Acute (2) Persistent air leak: Status: Acute Assessment and plan: Mr. Neri continues to have a large continuous air leak. Denies SOB or chest pain. Supplemental [address] Yen has discussed that if this air leak continues Mr. Neri will require further intervention at [facility] or [facility]. (3) Recurrent spontaneous pneumothorax: Status: Inactive Subjective Subjective Interval history since last seen: Patient denies having any SOB. He expressed concern that he had found the tubing of his chest tube kinked. Nursing staff helped him with this. Exam Const General: cooperative and comfortable Orientation: alert and oriented x3 Resp Effort & Inspection: normal respiratory effort, no audible wheezes and cough Other: Chest tube in place. NO kinks or bends noted in the tubing at this time. He still has a continuous air leak. Objective Last Vital Signs Temp 36.6 C 03/05/21 03:22 Pulse 93 H 03/05/21 03:22 Resp 17 03/05/21 03:22 BP 105/66 03/05/21 03:22 Pulse Ox 91 L 03/05/21 03:22 Documented by User: Elaine Yen DO 03/06/21 12:53 Assessment and Plan Assessment and plan (1) Pneumothorax on left: Status: Acute (2) Persistent air leak: Status: Acute Assessment and plan: Patient's lung is only inflated by 50%. He has a large continuous air leak. He is going to have to go for bleb resection and pleurodesis. Arrangements are being made to transfer the patient to [facility]. He has received consultation with thoracic surgery there in the past and has a establish relation with cardiology at that facility. (3) Tension pneumothorax, spontaneous: Status: Acute
[2021-03-05 08:11] VITALS: BP 104/65; PULSE 77; RESP 18; TEMP 36.4; O2SAT 92
[2021-03-05] MEDS: Docusate Sodium 100 MG CAP PO (08:12)
[2021-03-05 10:00] VITALS: RESP 17
[2021-03-05 10:51] VITALS: BP 115/70; PULSE 78; RESP 19; TEMP 36.6; O2SAT 94
--- NOTE | 2021-03-05 11:22 | CMPROGNOTE_ITS ---
- If Service Date Differs Date of service: 03/05/21 Time of Service: 11:22 Care Management Progress Note S/O: London was sitting up in bed when CM met with him. He reported that per MD, he will likely be transferred to [facility] today. He is agreeable to this transfer, and he reported that he already spoke to his to update her. CM will continue to follow. A: London is a 70 year old male admitted to [facility] on 03/03/21 with spontaneous pneumothorax. P: London will be transferred to [facility] once a bed becomes available. He will transport via ambulance coordinated by RN coin machine supervisor. He will follow up with his PCP and discharge plan of care. CM will continue to follow.
--- NOTE | 2021-03-05 12:40 | W.PM.DS.N ---
DS: Diagnosis Discharge Diagnosis (1) Pneumothorax on left: Status: Acute (2) Persistent air leak: Status: Acute (3) Recurrent spontaneous pneumothorax: Status: Inactive Discharge Plan Disposition Patient Disposition: [facility] Condition: Fair Discharge Details Reason For Visit: spontaneous pneumothorax Admit Date/Time: 03/03/21 07:10 Admit Provider: Madonna Kenyon Attending Provider: Madonna Kenyon Primary Care Provider: Linda Mccray [facility] Course Hospital Course: Mr. Neri is a pleasant 70-year-old gentleman who was admitted on March 03 for his third spontaneous pneumothorax on the left side. He was admitted back in November for the same thing. He was in the hospital for 6 days before his lung healed. He is known to have blebs. It was recommended to him last time that he go to [facility] and have a pleurodesis done. The patient never followed up for this. He has been in the hospital now for 2 days with no improvement of his pneumothorax despite good position of his chest tube. He has a continuous leak and chest x-ray showed no improvement. He is off oxygen and stable otherwise. His home medications have been continued while in the hospital. He is on Coumadin. He has a mechanical heart valve and needs to be on anticoagulation. I discussed the case with cardiothoracic surgery Dr. Khalil. The patient will be transported via ambulance from [facility] to the emergency department at [facility]. This was discussed with the patient and the patient is in agreement. Medications started while hospitalized: omeprazole 20 mg daily, Colace twice daily, tramadol 50 mg every 6 as needed. The patient has not needed any pain medication since placement of his chest tube. Chest x-ray from 03/03, 03/04 and 03/05 have been sent down to [facility] Home Meds and New Rx's Prescriptions: Continued warfarin [Coumadin] 10 MG tablet 0 - 1 tab PO DIRECTED Qty: 90 RF: 4 Discharge Instructions Activity:: Activity as Tolerated Diet:: As Tolerated Discharge Orders Discharge Orders: Discharge Order (Routine); Ordered 03/05/21 Ordered By: Madonna Kenyon DS: Summary Time Spent with Patient providing and/or coordinating discharge services: Greater than 30 minutes Status at Discharge Functional status at discharge: independent ambulation Overall status at discharge: patient is not back to baseline Mental Status: mental status grossly normal Speech and Movement: speech and movement normal Mood: congruent mood Affect: normal affect Exam Const General: cooperative, comfortable and no acute distress Orientation: alert and oriented x3 HENMT Head: normocephalic and atraumatic Resp Effort & Inspection: normal respiratory effort Auscultation: clear to auscultation bilaterally (right lung), breath sounds absent and diminished lung sounds (left) Cardio Rate: regular rate Rhythm: regular rhythm Heart Sounds: click and no murmurs Psych Mental Status: mental status grossly normal Speech and Movement: speech and movement normal Mood: congruent mood Affect: normal affect DS: Data Vitals/I&O Vitals and I&O: Vital Signs Temperature 97.9 F 03/05/21 10:51 Temperature Source Tympanic 03/05/21 10:51 Pulse 78 03/05/21 10:51 Pulse Rhythm Regular 03/05/21 04:58 Pulse 63 03/03/21 08:31 Respiratory Rate 19 03/05/21 10:51 Respiratory Effort Non-Labored 03/05/21 04:58 Respiratory Depth Normal 03/05/21 04:58 Respiratory Pattern Normal 03/05/21 04:58 Blood Pressure 115/70 03/05/21 10:51 Blood Pressure Mean 97 03/03/21 08:31 Blood Pressure Position Sitting 03/03/21 06:35 Pulse Oximetry 94 03/05/21 10:51 Oxygen Delivery Method Room Air 03/05/21 10:51 Oxygen Flow Rate 0 03/05/21 10:51 Pain Level 0 03/05/21 03:22 Intake & Output 03/04/21 03/05/21 03/05/21 23:59 11:59 23:59 Intake Total 730 / 970 750 / 750 Output Total 670 / 1600 45 / 45 Balance 60 / -630 705 / 705 Intake: IV Oral 730 / 970 740 / 740 Output: Chest Tube Drainage 70 / 100 45 / 45 Urine 600 / 1500 Other: Urine Color Yellow Yellow Urine Appearance Clear Clear Urine Odor Normal Stool Size Large Stool Characteristics Formed Voiding Methods Bedside Commode Toilet [facility] Medical History (Updated 03/05/21 @ 12:43 by Madonna Kenyon MD) Anticoagulated on warfarin AVR/MVR; goal 2.5-3.5 AV block, complete Cardiac pacemaker in situ dual lead Medtronic - PG replacement 07/31/2020 Clostridium difficile colitis (09/20/16) COVID-19 vaccine administered 12/15/20 01/19/21 Dizziness Hematoma, postoperative History of coagulation defect Hypertension Mitral valve regurgitation replaced Multiple rib fractures Primary malignant neoplasm of bladder Recurrent spontaneous pneumothorax Unilateral inguinal hernia Surgical History Appendectomy Heart valve replaced (11/30/12) Aortic/Mitral mechanical HERNIA REPAIR (~2007) History of aortic valve replacement Pacemaker (~2009) Presence of other heart-valve replacement (11/30/12) Aortic/Mitral Tonsillectomy and adenoidectomy Family History Mother Personal history of malignant neoplasm LIVER Father Heart disease Sister No problems noted. Brother No problems noted. 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
--- NOTE | 2021-03-05 15:32 | CHAPLAIN ---
[place] said he was likely being transferred to [facility] [place] sometime today. I visited with him this morning before he left and gave him a prayer shawl to take with him. London is reserved and didn't talk a lot with me, although said he appreciated the blanket. He is [employer] and connected to Leticia Deras.
== END 2021-03-05 13:46 | disposition short-term general hospital (02) | DRG 200 ==
LOC: ER 08:38 → MS 08:49
PROVIDERS: Admitting Provider Surgery; Emergency Provider Student in an Organized Health Care Education/Training Program; PCP Family Medicine; Visit Provider Surgery
DX: J93.0 Spontaneous tension pneumothorax (principal); I44.2 Atrioventricular block, complete; Z79.01 Long term (current) use of anticoagulants; Z95.0 Presence of cardiac pacemaker; Z95.2 Presence of prosthetic heart valve; I10 Essential (primary) hypertension; J95.812 Postprocedural air leak; C67.9 Malignant neoplasm of bladder, unspecified
CPT/HCPCS: 32551; 36415; 71045; 80053; 87635; 93005; 99222; 99232; 99238; 99285; 84484; 85025; 85610; 85730; 93010

== ENCOUNTER 2021-03-13 21:02 | Emergency (ER) | payer MEDICARE, BC, SELFPAY ==
[2021-03-13 21:34] VITALS: BP 102/52; PULSE 65; RESP 18; O2SAT 97
--- NOTE | 2021-03-13 22:00 | W.ED.GENAD ---
Discharge Plan Disposition Patient Disposition: HOME Condition: Stable Discharge Details Clinical Impression: Encounter for medication administration Primary Care Provider: Linda Mccray ED Provider: Jocelyne Bishop Home Meds and New Rx's Prescriptions: No Action warfarin [Coumadin] 10 MG tablet 0 - 1 tab PO DIRECTED Qty: 90 RF: 4 enoxaparin 80 mg/0.8 mL syringe 80 mg subcut BID RF: 0 Discharge Instructions Instructions: Enoxaparin (By injection) Additional Instructions: Follow-up as directed by [facility]. Follow up with primary care provider in 3-5 days. Return to ED sooner if any worsening or concerns. Increase oral fluids. Referrals: Linda Mccray [Primary Care Provider] - Discharge Data Discharge Date/Time-TO BE ENTERED AT DEPARTURE: 03/13/21 22:15 Medical Decision Making Patient discharged after Lovenox injection. Patient has no questions regarding administration at home. is at bedside and verbalizes understanding. HPI General Mode of arrival: wheelchair. Date/Time Provider Initiated Documentation: 03/13/21 21:40. Limitations to Documentation: no limitations. Information obtained by: patient and family. HPI Narrative: 70-year-old male presents here for a Lovenox injection. Was discharged from [facility] today status post multiple procedures. He missed picking up the Lovenox dose from the pharmacy this evening. He is able to pick it up in the morning. He is prescribed 0.8 mils subcu 2 times daily for 10 days. We will give him his 80 mg dose here in the department and discharged home. He has no other complaints at this time. Patient has a past medical history AV block, hypertension, heart valve replacement, cardiac pacemaker, tension pneumothorax on the left. Related Data Home Medications Medication Instructions Recorded Confirmed warfarin [Coumadin] 0 - 1 tab PO DIRECTED #90 tab 03/30/18 03/13/21 enoxaparin 80 mg SUBCUT BID 03/13/21 03/13/21 Previous Rx's Medication Instructions Recorded warfarin [Coumadin] 0 - 1 tab PO DIRECTED #90 tab 03/30/18 Allergies Allergy/AdvReac Type Severity Reaction Status Date / Time No Known Allergies Allergy Verified 03/13/21 21:38 General Stated Complaint: GenMedical YASMIN: 5 Review of Systems All systems reviewed & are unremarkable except as noted in HPI and below PFSH Medical History (Updated 03/13/21 @ 22:02 by Jocelyne Bishop) Anticoagulated on warfarin AVR/MVR; goal 2.5-3.5 AV block, complete Cardiac pacemaker in situ dual lead Medtronic - PG replacement 07/31/2020 Clostridium difficile colitis (09/20/16) COVID-19 vaccine administered 12/15/20 01/19/21 Dizziness Hematoma, postoperative History of coagulation defect Hypertension Mitral valve regurgitation replaced Multiple rib fractures Primary malignant neoplasm of bladder Recurrent spontaneous pneumothorax Unilateral inguinal hernia Surgical History Appendectomy Heart valve replaced (11/30/12) Aortic/Mitral mechanical HERNIA REPAIR (~2007) History of aortic valve replacement Pacemaker (~2009) Presence of other heart-valve replacement (11/30/12) Aortic/Mitral Tonsillectomy and adenoidectomy Family History Mother Personal history of malignant neoplasm LIVER Father Heart disease Sister No problems noted. Brother No problems noted. 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 Current gender identity: male Do you feel safe at home: Yes Do you feel safe in your relationship?: Yes Exam Const General: cooperative, comfortable, no acute distress and well developed Nutritional Appearance: average body habitus Orientation: alert, awake and oriented x3 Resp Effort & Inspection: normal respiratory effort Cardio Rate: regular rate Course Vital Signs Vital signs: Vital Signs Pulse 65 03/13/21 21:34 Respiratory Rate 18 03/13/21 21:34 Blood Pressure 102/52 L 03/13/21 21:34 Pulse Oximetry 97 03/13/21 21:34 Pulse 65 03/13/21 21:34 Respiratory Rate 18 03/13/21 21:34 Respiratory Effort Non-Labored 03/13/21 21:37 Blood Pressure 102/52 L 03/13/21 21:34 Blood Pressure Position Sitting 03/13/21 21:34 Pulse Oximetry 97 03/13/21 21:34 Oxygen Delivery Method Room Air 03/13/21 21:34 Oxygen Flow Rate 0 03/13/21 21:34 Pain Level 0 03/13/21 21:34
[2021-03-13] MEDS: Enoxaparin 80 MG/0.8 ML SYR SC (22:01)
== END 2021-03-13 22:15 | disposition home or self-care (01) ==
PROVIDERS: Emergency Provider Registered Nurse Emergency; PCP Family Medicine
DX: D68.8 Other specified coagulation defects (principal); Z98.890 Other specified postprocedural states; Z76.89 Persons encountering health services in other specified circumstances
CPT/HCPCS: 96372; 99283; 99282; J1650

== ENCOUNTER 2021-04-21 19:39 | Emergency (ER) | payer MEDICARE, BC, SELFPAY ==
--- NOTE | 2021-04-21 19:52 | W.ED.GENAD ---
Discharge Plan Disposition Patient Disposition: HOME Condition: Stable Discharge Details Clinical Impression: Elevated INR, Hematuria Primary Care Provider: Linda Mccray ED Provider: Dean Chacon Home Meds and New Rx's Prescriptions: New cephalexin 500 mg capsule 500 mg PO BID Qty: 14 RF: 0 Continued warfarin [Coumadin] 10 MG tablet 0 - 1 tab PO DIRECTED Qty: 90 RF: 4 dextroamphetamine-amphetamine [Adderall] 10 mg tablet 10 mg PO DAILY RF: 0 senna 8.6 mg capsule 8.6 mg PO DAILY RF: 0 acetaminophen 500 mg capsule 500 mg PO Q6H PRNRF: 0 betamethasone dipropionate 0.05 % cream 1 applic topical DAILY PRNRF: 0 enoxaparin 80 mg/0.8 mL syringe 80 mg subcut BID RF: 0 Discharge Instructions Instructions: Hematuria (ED) Additional Instructions: First dose of Keflex given for suspected hemorrhagic cystitis. Please take Keflex as directed. As we discussed your INR is elevated at 4.9, upper limit of your goal is 3.5. I recommend that you do not take your Coumadin this evening or tomorrow evening, then have it rechecked the following day. Please watch for new or worsening symptoms and return to the ER for any concerns. I would like you to contact your primary care provider tomorrow to discuss your ongoing symptoms, need for INR recheck, and potential adjustment to your Coumadin. You mentioned that they were also in the process of initiating you a referral to urology, I will give you the name and number of Dr. Avilez who I believe you should contact tomorrow to help expedite the process Referrals: Jr Avilez MD [ [facility] STAFF PHYSICIAN] - Medical Decision Making 71-year-old gentleman, chronic anticoagulation, for procedure 6 weeks ago, catheter indwelling 1 week, subsequently over the past 5 days has had intermittent dysuria but now over the past week or so it has worsened, associate with foul-smelling urine, and today hematuria. Denies passing any clots. Patient denies any back pain, flank pain, abdominal pain. Clinically he appears well, nontoxic, appears hemodynamically stable, denies black tarry stools, bright red blood in the stools, or other bleeding. Patient does not present like a renal stone. Given he is on Coumadin I would like to check his INR, reports it was last checked 10 days ago. We will also obtain urinalysis although certainly sounds like a UTI. Patient is agreeable with this plan. INR of 4.9, goal is 2.5-3.5. Urinalysis is brown, cloudy, large blood, greater than 50 red cells, unable to see anything else on the microscopic view given the red cells obscuring the view completely. Given his dysuria, foul-smelling urine, and hematuria I believe treating for a hemorrhagic cystitis is perfectly reasonable. Patient appears hemodynamically stable. Denies recent trauma. Patient does state that he was recently traveling and very well could have taken extra dose of his Coumadin. He will not take his Coumadin dose tonight or tomorrow, will then recheck his INR and if appropriate begin taking his Coumadin. He states that his primary care provider was in the process of setting him up with urology, I will provide him the contact information for Dr. Avilez. I will give his first dose of Keflex now. Patient has no additional questions or concerns and is comfortable with this plan. Standard discharge and return precautions given. This documentation was generated using [employer] system, please disregard any oddities of phrase or misspellings. Medical Records Medical records reviewed: Yes I reviewed the patient's medical records. Lab Data Lab results reviewed: Yes I reviewed the patient's lab results. Labs: 04/21/21 20:05 Urine - Reflex from Ua Urine Culture - Pending Laboratory Tests Range/Units 04/21/21 04/21/21 04/21/21 20:05 20:05 20:37 PT (9.3-11.0) sec 47.4 H INR (0.9-1.1) 4.9 H* Urine Color (Yellow) Brown Urine Clarity (Clear) Cloudy Urine pH (5-8) 5.5 Ur Specific [place] (1.005-1.025) >= 1.030 H Urine Protein (Negative) mg/dL >=300 H Urine Ketones (Negative) mg/dL Negative Urine Blood (Negative) Large H Urine Nitrite (Negative) Negative Urine Bilirubin (Negative) Negative Urine Urobilinogen (Up TO 0.2) EU/dL 0.2 Ur Leukocyte Esterase (Negative) Negative Urine RBC (0-2) HPF >50 H Cancelled Urine WBC Not Applicable Cancelled Ur Epithelial Cells Not Applicable Cancelled Urine Crystals Not Applicable Cancelled Urine Bacteria Not Applicable Cancelled Urine Casts Cancelled Urine Mucus Not Applicable Cancelled Urine Other Cancelled Ur Culture Indicated? Yes Cancelled Urine Glucose (Negative) mg/dL Negative HPI General Mode of arrival: ambulatory. Date/Time Provider Initiated Documentation: 04/21/21 19:51. Limitations to Documentation: no limitations. Information obtained by: patient. HPI Narrative: This is a 71-year-old male, past medical history that includes 2 heart valve replacements, chronic anticoagulation, pacemaker, hypertension, presenting to the ER for dysuria and hematuria. Patient states that he had a procedure approximately 6 weeks ago, had an indwelling Goldsmith catheter for 1 week, and it was subsequently removed. Patient states that shortly after he developed mild dysuria but it has subsequently worsened, noticed foul-smelling urine over the past several days, and today noticed some blood in his urine. Patient does admit to taking 10 mg of Coumadin every evening. States that he believes that he has taken correctly but could have taken extra dose on accident. He denies recent illness or trauma. Denies fever, chest pain, shortness of breath, abdominal pain, black tarry stools or bright red blood in his stool. He does admit to easy bruising or bleeding but has not had any recently and denies any petechiae like bleeding. Related Data Home Medications Medication Instructions Recorded Confirmed warfarin [Coumadin] 0 - 1 tab PO DIRECTED #90 tab 03/30/18 03/13/21 enoxaparin 80 mg SUBCUT BID 03/13/21 03/13/21 acetaminophen 500 mg capsule 500 mg PO Q6H PRN 04/14/21 betamethasone dipropionate 0.05 % 1 applic TOPICAL DAILY PRN 04/14/21 topical cream dextroamphetamine-amphetamine 10 10 mg PO DAILY 04/14/21 mg tablet sennosides 8.6 mg capsule 8.6 mg PO DAILY 04/14/21 cephalexin 500 mg PO BID #14 cap 04/21/21 Previous Rx's Medication Instructions Recorded warfarin [Coumadin] 0 - 1 tab PO DIRECTED #90 tab 03/30/18 cephalexin 500 mg PO BID #14 cap 04/21/21 Allergies Allergy/AdvReac Type Severity Reaction Status Date / Time No Known Allergies Allergy Verified 06/30/21 20:57 General YASMIN: 5 Review of Systems Constitutional Constitutional: Denies fever(s) and Denies headache(s) ENT Ears, Nose, Mouth, and Throat: Denies headache(s) Cardiovascular Cardiovascular: Denies chest pain and Denies dyspnea Respiratory Respiratory: Denies dyspnea Gastrointestinal Gastrointestinal: Denies abdominal pain, Denies melena, Denies hematochezia, Denies nausea and Denies vomiting Genitourinary Genitourinary: Reports hematuria and Reports dysuria Musculoskeletal Musculoskeletal: Denies back pain Integumentary/Breasts Skin/Breast: Denies rash Neurologic Neurologic: Denies headache(s) Hematologic/Lymphatic Hematologic/Lymphatic: Reports easy bleeding and Reports easy bruising [facility] Medical History Anticoagulated on warfarin AVR/MVR; goal 2.5-3.5 AV block, complete C. difficile colitis Cardiac pacemaker in situ dual lead Medtronic - PG replacement 07/31/2020 Clostridium difficile colitis (09/20/16) COVID-19 vaccine administered 12/15/20 01/19/21 Dizziness Hematoma, postoperative History of coagulation defect Hypertension Mitral valve regurgitation replaced Multiple rib fractures Near syncope Primary malignant neoplasm of bladder Recurrent spontaneous pneumothorax Unilateral inguinal hernia Surgical History Appendectomy Heart valve replaced (11/30/12) Aortic/Mitral mechanical HERNIA REPAIR (~2007) History of aortic valve replacement Pacemaker (~2009) Presence of other heart-valve replacement (11/30/12) Aortic/Mitral Tonsillectomy and adenoidectomy Family History Mother Personal history of malignant neoplasm LIVER Father Heart disease Sister No problems noted. Brother No problems noted. 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 [facility] Current gender identity: male Do you feel safe at home: Yes Do you feel safe in your relationship?: Yes Exam Const General: cooperative, healthy appearing, comfortable and no acute distress Orientation: alert and awake HENMO Head: normal to inspection, normocephalic and atraumatic Face and sinus: normal facial exam Mouth: moist mucous membranes Eyes General: appearance normal, both eyes and all related structures Conjunctivae: conjunctivae normal Neck Neck: normal visual inspection, trachea midline and supple Resp Effort & Inspection: normal respiratory effort and able to speak in complete sentences GI Inspection: normal to inspection Palpation: soft, not firm, no guarding, no pulsatile masses and nontender Auscultation: normal bowel sounds Back/Spine/Pelvis Back: no CVA tenderness and No back tenderness Skin General skin exam: no rashes or lesions noted Neuro General: patient alert, patient awake, moves all extremities and no focal motor deficits Cognition: normal cognition Speech: speech normal Gait: normal gait Motor: muscle tone normal throughout Sensory Exam: no sensory deficits noted Psych Appearance: grossly normal Mental Status: mental status grossly normal
[2021-04-21 19:58] VITALS: BP 134/57; PULSE 67; RESP 16; TEMP 36.5; O2SAT 98
[2021-04-21 20:24] LABS: Blood Large (Negative); Clarity Cloudy (Clear)
[2021-04-21 20:42] LABS: Bilirubin Negative (Negative); Glucose Negative (Negative); Ketones Negative (Negative); Leukocyte Esterase Negative (Negative); Nitrite Negative (Negative); Specific Gravity >= 1.030 (1.005-1.025); Urobilinogen 0.2 EU/dL (Up TO 0.2); pH 5.5 (5-8)
[2021-04-21 20:48] LABS: C & S Indicated? Yes; RBC >50 HPF (0-2)
[2021-04-21 21:01] LABS: Prothrombin Time 47.4 sec (9.3-11.0)
[2021-04-21 21:25] LABS: INR 4.9 (0.9-1.1)
[2021-04-21 22:12] VITALS: BP 134/57; PULSE 67; RESP 16; TEMP 36.5; O2SAT 98
[2021-04-21] MEDS: Cephalexin 500 MG CAP PO (22:12)
== END 2021-04-21 22:12 | disposition home or self-care (01) ==
PROVIDERS: Emergency Provider Physician Assistant; PCP Family Medicine
DX: R31.9 Hematuria, unspecified (principal); R79.1 Abnormal coagulation profile; Z79.01 Long term (current) use of anticoagulants
CPT/HCPCS: 36415; 87077; 99283; 81003; 81015; 85610; 87086; 87186

== ENCOUNTER 2021-05-03 12:28 | Outpatient (REF) | payer MEDICARE, BC, SELFPAY ==
[2021-05-04 17:36] LABS: COVID-19 RT-PCR UVMMC Result Negative (Negative)
== END 2021-05-03 12:29 | disposition home or self-care (01) ==
LOC: NCHCN 12:28
PROVIDERS: PCP Family Medicine; Visit Provider Family Medicine
DX: Z20.822 Contact with and (suspected) exposure to COVID-19 (principal)
CPT/HCPCS: U0003; U0005

== ENCOUNTER 2021-05-31 13:34 | Outpatient (REF) | payer MEDICARE, BC, SELFPAY ==
[2021-06-02 13:36] LABS: COVID-19 RT-PCR UVMMC Result Negative (Negative)
== END 2021-05-31 13:35 | disposition home or self-care (01) ==
LOC: NCHCN 13:34
PROVIDERS: PCP Family Medicine; Visit Provider Family Medicine
DX: Z20.822 Contact with and (suspected) exposure to COVID-19 (principal)
CPT/HCPCS: U0003

== ENCOUNTER 2021-06-21 21:17 | Outpatient (REF) | payer MEDICARE, BC, SELFPAY ==
[2021-06-23 14:05] LABS: COVID-19 RT-PCR UVMMC Result Negative (Negative)
== END 2021-06-21 21:18 | disposition home or self-care (01) ==
LOC: NCHCN 21:17
PROVIDERS: PCP Family Medicine; Visit Provider Family Medicine
DX: Z20.822 Contact with and (suspected) exposure to COVID-19 (principal)
CPT/HCPCS: U0003

== ENCOUNTER 2021-06-29 16:34 | Outpatient (REF) | payer MEDICARE, BC, SELFPAY ==
[2021-06-30 11:05] LABS: COVID-19 RT-PCR UVMMC Result Negative (Negative)
== END 2021-06-29 16:35 | disposition home or self-care (01) ==
LOC: NCHCN 16:34
PROVIDERS: PCP Family Medicine; Visit Provider Family Medicine
DX: Z20.822 Contact with and (suspected) exposure to COVID-19 (principal)
CPT/HCPCS: U0003; U0005

== ENCOUNTER 2021-07-26 16:53 | Outpatient (REF) | payer MEDICARE, BC, SELFPAY ==
[2021-07-28 13:01] LABS: COVID-19 RT-PCR UVMMC Result Negative (Negative)
== END 2021-07-26 16:54 | disposition home or self-care (01) ==
LOC: NCHCN 16:53
PROVIDERS: PCP Family Medicine; Visit Provider Family Medicine
DX: Z20.822 Contact with and (suspected) exposure to COVID-19 (principal)
CPT/HCPCS: U0003

== ENCOUNTER 2021-08-20 20:30 | Outpatient (REF) | payer MEDICARE, BC, SELFPAY ==
[2021-08-20 20:46] LABS: Bilirubin Negative (Negative); Blood Trace-intact (Negative); Clarity Cloudy (Clear); Glucose Negative (Negative); Ketones Negative (Negative); Leukocyte Esterase Trace (Negative); Nitrite Negative (Negative); Specific Gravity 1.025 (1.005-1.025); Urobilinogen 0.2 EU/dL (Up TO 0.2); pH 7.5 (5-8)
[2021-08-20 20:54] LABS: Bacteria Moderate HPF (Negative); C & S Indicated? Yes; Casts Negative LPF (Negative); Crystals Negative HPF (Negative); Epithelial Cells Few HPF (Negative); Mucus Negative (Negative)
== END 2021-08-20 20:31 | disposition home or self-care (01) ==
LOC: NCHCN 20:30
PROVIDERS: PCP Family Medicine; Visit Provider Family Medicine
DX: R30.0 Dysuria (principal); H00.019 Hordeolum externum unspecified eye, unspecified eyelid
CPT/HCPCS: 81003; 81015; 87086

== ENCOUNTER 2021-11-16 17:20 | Outpatient (REF) | payer MEDICARE, BC, SELFPAY ==
[2021-11-18 13:30] LABS: COVID-19 RT-PCR UVMMC Result Negative (Negative)
== END 2021-11-16 17:21 | disposition home or self-care (01) ==
LOC: NCHCN 17:20
PROVIDERS: PCP Family Medicine; Visit Provider Family Medicine
DX: Z20.822 Contact with and (suspected) exposure to COVID-19 (principal)
CPT/HCPCS: U0003

== ENCOUNTER 2021-12-11 16:14 | Emergency (ER) | payer MEDICARE, BC, SELFPAY ==
[2021-12-11 16:03] VITALS: BP 165/81; PULSE 64; RESP 16; TEMP 36.5; O2SAT 96
--- NOTE | 2021-12-11 16:30 | DI.RAD_ITS ---
Exam(s) XR RIBS LT W PA LAT CHEST EXAM: XR RIBS LT W PA LAT CHEST CLINICAL HISTORY: Fall, Left side pain. TECHNIQUE: 2D digital imaging was performed. COMPARISON: CR XR PORTABLE CHEST AP from 03/04/2021 CR,XR XR PORTABLE CHEST AP POST LINE from 03/05/2021 FINDINGS: Chest x-ray: Sternotomy wires are again noted and there is a bipolar left subclavian pacemaker lead t ips in RA and RV again noted. Also prosthetic mitral and aortic valves are again noted. There is no widening of the mediastinum. Healed right-sided multiple rib fractures are noted. No new right lung findings. However, on the le ft side there are now multiple displaced fractures noted and the pleural base mass at this level whic h is most probably hematoma. However, there is no pneumothorax at this time. LEFT RIB CAGE: There are multiple acute left rib fractures noted with displacement. There is a very displaced fracture of the left 8th rib. Moderately displaced fractures of the left 9th and 10th ribs are noted. Also mildly displaced fractures of the 7th, 6, and 5th ribs. IMPRESSION: There are multiple acute fractures of the left rib cage with multiple levels of displacement, the mos t severely displaced being the left 8th rib. Fractures involve at least the 5th through 10th ribs, i nclusive. There is a pleural-based mass on the left side at this level which is probably pleural space hematoma related to the acute displaced rib fractures. Another possibility is that this was previously prese nt and related to a chest tube which was at this location on x-ray of February 2021. Nevertheless, 1 must assume that this is an acute hematoma. Recommend follow-up CT scan. Bipolar pacemaker again noted and prosthetic aortic and mitral valves. There is no mediastinal widen ing or shift. DATA REPOSITORY: RADIATION DOSE DELIVERED:
--- NOTE | 2021-12-11 16:39 | W.ED.GENAD ---
Discharge Plan Disposition Patient Disposition: [facility] Condition: Serious Discharge Details Clinical Impression: Hemothorax, traumatic, Multiple fractures of ribs of left side, Traumatic hemorrhage of liver Primary Care Provider: Linda Mccray ED Provider: Jocelyne Bishop Home Meds and New Rx's Prescriptions: No Action warfarin [Coumadin] 10 MG tablet 0 - 1 tab PO DIRECTED Qty: 90 4RF Rx Instructions: DOSE BASED ON INR betamethasone dipropionate 0.05 % cream 1 applic topical DAILY PRN0RF tamsulosin 0.4 mg capsule 0.4 mg PO DAILY 0RF Label Comments: TAKE 1 CAPSULE BY MOUTH DAILY Discharge Instructions Instructions: Rib Fracture (ED) Medical Decision Making 71-year-old male presents to the ER via EMS status post a slip and fall which occurred approximately an hour prior to arrival. Patient reports that he was walking in his driveway and slipped on the ice landing on his left side. He chose to lay on the ground until EMS arrived. He reports his neighbors were witness to the fall and help him on scene. Patient denies hitting his head no loss of consciousness no neck pain. He denies any chest pain or shortness of breath. He is complaining of posterior side pain. He has no midline tenderness, crepitus or step-off with palpation. He does have a history of a pacemaker and heart valve replacement and is on warfarin daily. Other past medical history includes pneumothorax, hypertension. X-ray rib series with PA lateral chest ordered, oxycodone 5 mg. Left rib fractures with PA Lat Chest: FINDINGS: Chest x-ray: Sternotomy wires are again noted and there is a bipolar left subclavian pacemaker lead tips in RA and RV again noted.? Also prosthetic mitral and aortic valves are again noted.? There is no widening of the mediastinum. Healed right-sided multiple rib fractures are noted.? No new right lung findings.? However, on the left side there are now multiple displaced fractures noted and the pleural base mass at this level which is most probably hematoma.? However, there is no pneumothorax at this time. LEFT RIB CAGE: There are multiple acute left rib fractures noted with displacement.? There is a very displaced fracture of the left 8th rib.? Moderately displaced fractures of the left 9th and 10th ribs are noted.? Also mildly displaced fractures of the 7th, 6, and 5th ribs. IMPRESSION: There are multiple acute fractures of the left rib cage with multiple levels of displacement, the most severely displaced being the left 8th rib.? Fractures involve at least the 5th through 10th ribs, inclusive. There is a pleural-based mass on the left side at this level which is probably pleural space hematoma related to the acute displaced rib fractures.? Another possibility is that this was previously present and related to a chest tube which was at this location on x-ray of February 2021.? Nevertheless, 1 must assume that this is an acute hematoma.? Recommend follow-up CT scan. Bipolar pacemaker again noted and prosthetic aortic and mitral valves.? There is no mediastinal widening or shift. 1805: Surgery paged. Spoke with Dr. Christiansen who presented to the ER for patient evaluation. She recommends CT chest with contrast, lab work and depending on what CT shows possible consideration for transfer to [facility]. 2028: Spoke again with Dr. Alfonso who was able to personally view the CT she is concerned for a new hematoma due to some excavation of contrast and a blush to his liver which is also concerning for possible bleeding. 2044: Spoke with [facility] radiologist he reports multiple left-sided rib fractures with hematoma inside the left chest wall is also questioning subcapsular fluid in the liver however it does not meet the classic appearance for a liver laceration. Will contact [facility] transfer center to speak with the trauma team. 2052: Transfer request placed. CT Chest W: FINDINGS: Tubes, catheters and devices: Permanent pacemaker in place. Lungs: Advanced centrilobular emphysema. Left upper lobe subpleural 1.9 cm nodule. Pleural spaces: Masslike pleural thickening along the left posterolateral aspect of the lung. Heart: Status post aortic and mitral valve replacement, likely mechanical valves in place. Aorta: Atherosclerotic thoracic aorta of normal caliber. Lymph nodes: Unremarkable. No enlarged lymph nodes. Liver: Heterogeneous enhancement within the right hepatic lobe, ill-defined focus of enhancement within hepatic segment VII/ VIII measures 4.2 x 3.2 by 3.3 cm, an underlying lesion cannot be ruled out. Trace subcapsular fluid over the right hepatic lobe. Bones/joints: Deformities of multiple old healed rib fractures on the right. Acute fracture of the left 12th rib. Fracture of the left 10th rib. Fracture of the left 9th rib. Fracture of the left 8th rib. Fracture of the left 7th rib. Fracture of the left 6th rib. Fracture of the left 5th rib. Status post thoracotomy by mid sternotomy. Trace amount of emphysema within left lateral chest wall associated with the fractures sites. IMPRESSION: 1. Multiple acute left rib fractures, 5th through 12th left ribs. Deformities of healed rib fractures on the right. 2. Advanced centrilobular emphysema and fibrosis. 3. Pleural thickening along the posterolateral aspect of the left hemithorax, this finding is associated with multiple rib fractures, may represent wall hematomas. 4. Status post thoracotomy. Status post replacement of mitral and aortic valves, likely mechanical valves in place. Permanent pacemaker in place. 5. Trace amount of subcapsular fluid over the right hepatic lobe, indeterminate chronicity, small liver laceration cannot be entirely ruled out. Focus of enhancement within right hepatic lobe, not typical appearance of laceration, may represent vascular shunt versus less likely space occupying lesion, can be further evaluated with hepatic protocol CT. 6. No pneumothorax identified. 7. Subpleural left upper lobe nodule, 1.9 centimetres in diameter. 2103: Updated patient on plan of care and course to speak with trauma team at [facility] he verbalizes understanding and is in agreement with the plan. He states he has referred to go department for possible since he has established care there already with cardiology and has had previous pulmonary procedures. 2126: I did discuss with Dr. Alfonso he the consideration of giving vitamin K and or Kcentra as a reversal agent she recommends giving 25 mg/kg of Kcentra and 5 mg p.o. vitamin K. Orders placed. 2200: Spoke to Trauma MD Dr. Palacio with [facility] who agrees to accept patient for evaluation in the ED. 2216:Discussed plan of care with patient who verbalizes understanding and is in agreement with plan. 2334: At this time we are attempting to secure transport to [facility]. 2351: EMS here for transport. Lab Data Lab results reviewed: Yes I reviewed the patient's lab results. Lab results narrative: Laboratory Tests Range/Units 12/11/21 12/11/21 12/11/21 19:00 19:00 19:00 WBC (4.4-10.8) 10^3/uL 12.23 H RBC (4.36-5.78) 10^6/uL 4.48 Hgb (13.5-17.5) g/dL 13.3 L Hct (40.0-50.0) % 40.6 MCV (80-95) fL 90.6 MCH (27.0-33.0) pg 29.7 MCHC (32.0-36.0) % 32.8 RDW (11.8-14.1) % 13.5 Plt Count (130-400) 10^3/uL 180 MPV (8.0-11.0) fL 9.6 Immature Gran % 0.5 Neutrophils % 86.6 Lymphocytes % 5.9 Monocytes % 6.1 Eosinophils % 0.4 Basophils % 0.5 Nucleated RBC % % 0 Absolute Neutrophils (1.2-6.7) 10^3/uL 10.59 H Absolute Lymphocytes (1.2-3.4) 10^3/uL 0.72 L Absolute Monocytes (0.1-0.8) 10^3/uL 0.75 Absolute Eosinophils (0.0-0.7) 10^3/uL 0.05 Absolute Basophils (0.0-0.2) 10^3/uL 0.06 PT (9.3-11.0) sec 35.4 H INR (0.9-1.1) 3.6 H APTT (21.0-27.5) sec 43.9 H Sodium (136-145) mmol/L 137 Potassium (3.5-5.1) mmol/L 4.1 Chloride (98-107) mmol/L 103 Carbon Dioxide (21.0-32.0) mmol/L 29.3 Anion Gap (3-11) mmol/L 4.7 BUN (7-18) mg/dL 22 H Creatinine (0.70-1.30) mg/dL 1.0 Estimated GFR/1.73 m2 (mL/min/1.73m2) >= 60.00 Glucose (74-106) mg/dL 97 Calcium (8.5-10.1) mg/dL 9.4 Magnesium (1.8-2.4) mg/dL 1.9 Total Bilirubin (0.2-1.0) mg/dL 0.5 AST (15-37) U/L 34 ALT (16-63) U/L 27 Alkaline Phosphatase (46-116) U/L 52 Troponin I (<or=60) ng/L < 50 Total Protein (6.4-8.2) g/dL 7.3 Albumin (3.4-5.0) g/dL 4.0 COVID-19 Source Range/Units 12/11/21 12/11/21 21:25 21:25 WBC (4.4-10.8) 10^3/uL RBC (4.36-5.78) 10^6/uL Hgb (13.5-17.5) g/dL Hct (40.0-50.0) % MCV (80-95) fL MCH (27.0-33.0) pg MCHC (32.0-36.0) % RDW (11.8-14.1) % Plt Count (130-400) 10^3/uL MPV (8.0-11.0) fL Immature Gran % Neutrophils % Lymphocytes % Monocytes % Eosinophils % Basophils % Nucleated RBC % % Absolute Neutrophils (1.2-6.7) 10^3/uL Absolute Lymphocytes (1.2-3.4) 10^3/uL Absolute Monocytes (0.1-0.8) 10^3/uL Absolute Eosinophils (0.0-0.7) 10^3/uL Absolute Basophils (0.0-0.2) 10^3/uL PT (9.3-11.0) sec INR (0.9-1.1) APTT (21.0-27.5) sec Sodium (136-145) mmol/L Potassium (3.5-5.1) mmol/L Chloride (98-107) mmol/L Carbon Dioxide (21.0-32.0) mmol/L Anion Gap (3-11) mmol/L BUN (7-18) mg/dL Creatinine (0.70-1.30) mg/dL Estimated GFR/1.73 m2 (mL/min/1.73m2) Glucose (74-106) mg/dL Calcium (8.5-10.1) mg/dL Magnesium (1.8-2.4) mg/dL Total Bilirubin (0.2-1.0) mg/dL AST (15-37) U/L ALT (16-63) U/L Alkaline Phosphatase (46-116) U/L Troponin I (<or=60) ng/L < 50 Total Protein (6.4-8.2) g/dL Albumin (3.4-5.0) g/dL COVID-19 Source Nasal/Nares HPI General Mode of arrival: EMS. Date/Time Provider Initiated Documentation: 12/11/21 16:32. Limitations to Documentation: no limitations. Information obtained by: patient, EMS and RN notes reviewed. HPI Narrative: 71-year-old male presents to the ER via EMS status post a slip and fall which occurred approximately an hour prior to arrival. Patient reports that he was walking in his driveway and slipped on the ice landing on his left side. He chose to lay on the ground until EMS arrived. He reports his neighbors were witness to the fall and help him on scene. Patient denies hitting his head no loss of consciousness no neck pain. He denies any chest pain or shortness of breath. He is complaining of posterior side pain. He has no midline tenderness, crepitus or step-off with palpation. He does have a history of a pacemaker and heart valve replacement and is on warfarin daily. Other past medical history includes pneumothorax, hypertension. Related Data Home Medications Medication Instructions Recorded Confirmed warfarin 10 mg tablet (Coumadin) 0 - 1 tab PO DIRECTED #90 tab 03/30/18 12/11/21 betamethasone dipropionate 0.05 % 1 applic TOPICAL DAILY PRN 04/14/21 12/11/21 topical cream tamsulosin 0.4 mg capsule 0.4 mg PO DAILY 12/11/21 12/11/21 Previous Rx's Medication Instructions Recorded warfarin 10 mg tablet (Coumadin) 0 - 1 tab PO DIRECTED #90 tab 03/30/18 Allergies Allergy/AdvReac Type Severity Reaction Status Date / Time No Known Allergies Allergy Verified 04/21/21 20:57 General Stated Complaint: Nk/Back Pain YASMIN: 3 Review of Systems All systems reviewed & are unremarkable except as noted in HPI and below Musculoskeletal Musculoskeletal: Reports as per HPI and Reports back pain PFSH All Active Problems (Updated 12/11/21 @ 22:06 by Jocelyne Bishop) Hemothorax, traumatic (Acute) Multiple fractures of ribs of left side (Acute) Traumatic hemorrhage of liver (Acute) Blunt trauma (Acute) Traumatic hemo-pneumothorax (Acute) Multiple rib fractures involving four or more ribs (Acute) Elevated INR (Acute) Hematuria (Acute) Encounter for medication administration (Acute) Persistent air leak (Acute) Pneumothorax on left (Acute) Lung blebs (Acute) Tension pneumothorax, spontaneous (Acute) Hematoma, postoperative (Acute) AV block, complete (Acute) Hypertension (Chronic) 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 difficile colitis Clostridium difficile colitis (09/20/16) COVID-19 vaccine administered 12/15/20 01/19/21 Dizziness History of coagulation defect Mitral valve regurgitation replaced Multiple rib fractures Near syncope Primary malignant neoplasm of bladder Recurrent spontaneous pneumothorax Unilateral inguinal hernia Surgical History Appendectomy HERNIA REPAIR (~2007) History of aortic valve replacement Pacemaker (~2009) Presence of other heart-valve replacement (11/30/12) Aortic/Mitral Tonsillectomy and adenoidectomy Family History Mother Personal history of malignant neoplasm LIVER Father Heart disease Sister No problems noted. Brother No problems noted. 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 Skin: Warm and Dry HEENT: Head: No palpable deformities, Normocephalic Eyes: Pupils PERRLA, EOM's intact. No periorbital eccymosis or step off Ears: Canal patent. Tympanic membranes are clear . No king's sign, no hemptympanum. Nose/Face: Atraumatic. Facial bones nontender to palpation and stable with manipulation. Mouth/Throat: No intraoral trauma. Teeth and mandible are intact. Neck: No midline tenderness, no step off, no deformity to palpation of C-spine. Trachea midline. Chest: No surface trauma. Nontender without crepitus or deformity. Lungs clear to ausculatation bilaterally. Heart: RRR, no rubs, murmurs or gallop. Abdomen: No abrasions, ecchymosis, or surface trauma. Nondistended. Nontender to palpation no guarding, rebound, or rigidity. Pelvis: Nontender to palpation and stable to compression. Femoral pulses strong and equal Extremities: no surface trauma. Sensation intact. Peripheral pulses intact and equal. Neuro: ANO x4, GCS 15, cranial nerves II through XII intact. Motor and sensory exam nonfocal. Reflexes are symmetric. Course Vital Signs Vital signs: Vital Signs Temperature 36.5 C 12/11/21 16:03 Pulse 64 12/11/21 16:03 Respiratory Rate 16 12/11/21 16:03 Blood Pressure 165/81 H 12/11/21 16:03 Pulse Oximetry 96 12/11/21 16:03 Temperature 36.5 C 12/11/21 16:03 Temperature Source Oral 12/11/21 16:03 Pulse 64 12/11/21 16:03 Respiratory Rate 16 12/11/21 16:03 Respiratory Effort 12/11/21 16:03 Blood Pressure 165/81 H 12/11/21 16:03 Blood Pressure Position Supine 12/11/21 16:03 Pulse Oximetry 96 12/11/21 16:03 Oxygen Delivery Method Room Air 12/11/21 16:03 Oxygen Flow Rate 0 12/11/21 16:03 Pain Level 7 12/11/21 16:03
[2021-12-11] MEDS: oxyCODONE 5 MG TAB PO ×2 (17:08→21:30)
[2021-12-11 17:14] VITALS: BP 154/81; PULSE 60; RESP 16; O2SAT 92
--- NOTE | 2021-12-11 18:00 | DI.CT_ITS ---
Exam(s) CT CHEST W EXAM: CT CHEST W CLINICAL HISTORY: Multiple left Rib Fractures. TECHNIQUE: Multi planar reconstructions were performed. CONTRAST MATERIAL: Omnipaque 350; 75 cc COMPARISON: CR XR RIBS LT W PA LAT CHEST from 12/11/2021 FINDINGS: CHEST: LUNGS: Severe COPD emphysematous changes. Multiple bullae both lung jay. There is a pleural-base d nodule seen posteriorly in the superior segment of the left lower lobe. Suspicious for malignancy. There is lobulated pleural density over the lateral left lung field corresponding to what is seen o n chest x-ray and consistent with probable hematoma, given the multiple overlying acute left rib frac tures. No pneumothorax. No pleural effusion OSSEOUS: There are multiple acute left rib fractures including the 5th through 12th ribs. There is d isplacement at the level of the 8th rib fracture; less so at the other rib fractures. There are mult iple healed rib fractures on the opposite-right side but no acute right rib fractures. No scapular f racture evident. No clavicle fracture evident. Sternotomy wires noted. No vertebral fractures. MEDIASTINUM: No evidence of mediastinal hematoma. Sternotomy wires. No acute sternal fracture evide nt.No hilar nor mediastinal adenopathy. No subcarinal adenopathy. Visualized thyroid unremarkable. CARDIAC: Heart size is normal. There is no pericardial effusion.Sternotomy. Pacemaker wires. Prost hetic aortic and mitral valves noted. Caliber of the thoracic aorta is within normal limits. No jose a dence of aortic dissection. VISUALIZED UPPER ABDOMEN:Spleen size normal. No evidence of splenic laceration. No perisplenic flui d. Visualized left kidney unremarkable with no laceration. No evidence of mesenteric nor bowel wall hematoma. There is a an area of subcapsular enhancement in the right hepatic lobe incidentally note d there does not appear to be an obvious laceration at this level. No adrenal masses. OSSEOUS: No significant osseous lesions.. IMPRESSION: 1. There are multiple acute left-sided rib fractures involving the 5th through 12th ribs, inclusive. The 8th rib fracture is displaced and there is prominent subjacent pleural thickening corresponding to what is seen on the chest x-ray and most probably consistent with pleural hematoma at this level. There is no pneumothorax. There are healed multiple fractures in the opposite-right rib cage. 2. Independent of the left pleural thickening described above over the region of the rib fractures th ere is a separate posteriorly located pleural base nodule measuring approximately 1.8 cm by 1.5 cm, n ot immediately subjacent to a rib fracture. This is suspicious for possible neoplasm and requires wo rkup. There is no hilar nor mediastinal adenopathy evident. This finding is superimposed on severe COPD emphysematous bilateral lung findings. 3. Sternotomy. Prosthetic aortic and mitral valves. Bipolar pacemaker. No evidence of aortic traum a nor pericardial effusion. Heart size is upper normal. 4. Abnormal area of enhancement in the right hepatic lobe, difficult to accurately assess on this ty pe of study and doubtful for acute trauma sequelae. This can be further studied with dedicated abdom inal CT scan or MRI scan when clinically possible. Study 1st read by [facility] Final report called by myself to ER provider 12/12/2021 3:14 p.m. RADIATION DOSE DELIVERED: 605.14mGy.cm Total DLP DATA REPOSITORY: All CT scans at this facility are submitted to the National Radiology Data Registry (NRDR) Dose Index Registry (DIR) with the [employer] (A[employer]). RADIATION OPTIMIZATION: All CT scans at this facility use at least one of these dose optimization te chniques: automated exposure control; mA and/or kV adjustment per patient size (includes targeted exa ms where dose is matched to clinical indication); or iterative reconstruction.
--- NOTE | 2021-12-11 18:40 | SCONE_ITS ---
Date of service: 12/11/21 Time of Service: 18:40 Assessment and Plan Assessment and plan (1) Multiple rib fractures involving four or more ribs: Status: Acute Assessment and plan: -Eight left sided rib fractures with associated traumatic hematoma and pulmonary contusion -Recommend higher level of care for at least 24-48hr observation -Analgesia, incentive spirometer (2) Traumatic hemo-pneumothorax: Status: Acute Assessment and plan: -Continue to monitor in the setting of full anticoagulation -Vitamin K given for INR reversal in an effort to prevent expansion of pleural hematoma and reduce bleeding from potential liver laceration (3) Blunt trauma: Status: Acute Assessment and plan: -Possible liver laceration, in the setting of blunt trauma and full anticoagulation would remain vigilant of this -Check LFT's, continue to monitor clinically for decompensation; reverse INR and transfuse as needed (4) Elevated INR: Status: Acute (5) Heart valve replaced: Status: Chronic (6) Cardiac pacemaker in situ: Status: Chronic History of Present Illness Narrative: 71 year old male with hx of intermediate anticoagulation for AVR/MVR, multiple spontaneous pneumothoraes most [place] [facility] [place]x of multiple right sided rib fractures after a fall and PPM placement for complete heart block who reportedly slipped and fell on ice while walking today. He denies any loss of consciousness or head trauma, states his feet came out from under him and he fell onto his left side and back. He complains of left sided chest wall discomfort but overall looks surprisingly comfortable given the number of sequential displaced rib fractures sustained. He was transported to the emergency department via ambulance. Upon arrival he had a chest x-ray revealing multiple displaces left sided rib fractures and associated possible hematoma/hemothorax. I was asked to see the patient in consultation for the above. Requested labs and CT chest with IV contrast for better evaluation of fractures, pulmonary contusions and to better determine etiology of the left lateral chest wall haziness seen on x-ray. I have reviewed his CT and do see an associated hematoma with his displaced rib fractures with what appears to be a small amount of contrast extravasation. I also see a blush of contrast in the lateral aspect of the liver that may represent bleeding in the setting of blunt trauma and full anticoagulation. Basic labs reviewed, INR 3.6, Hb stable at 13.3, baseline appears to be 13-14. Recommendations for patient transfer to higher level of care has been relayed to ER provider as patient is high risk for complications regarding traumatic injuries and clinical history; should he decompensate, it would be difficult to care for this patient in the setting of a critical access hospital. Consults Consult date: 12/11/21 Requesting physician: Jocelyne Bishop Review of Systems Constitutional Constitutional: Denies headache(s) Eyes Eyes: Denies loss of vision ENT Ears, Nose, Mouth, and Throat: Denies dizziness, Denies headache(s) and Denies neck pain Cardiovascular Cardiovascular: Denies syncope and Denies dyspnea Respiratory Respiratory: Denies hemoptysis, Reports pain on inspiration (mild), Denies dyspnea and Denies wheezing Gastrointestinal Gastrointestinal: Reports abdominal pain (intermittent twinges), Denies cramping, Denies nausea and Denies vomiting Musculoskeletal Musculoskeletal: Reports back pain, Denies deformity, Denies muscle weakness, Denies neck pain, Denies numbness, Denies radiating pain into limb and Denies tingling Integumentary/Breasts Skin/Breast: Denies lesions, Denies erythema and Denies wounds Neurologic Neurologic: Denies confusion, Denies dizziness, Denies syncope, Denies headache(s), Denies lack of coordination, Denies localized weakness, Denies loss of vision, Denies numbness, Denies radicular pain and Denies tingling Psychiatric Psychiatric: Denies confusion Hematologic/Lymphatic Hematologic/Lymphatic: Reports other (on chronic anticoagulation, no obvious ec chymosis externally) Allergic/Immunologic Allergic/Immunologic: Denies wheezing PFSH All Active Problems (Updated 12/11/21 @ 21:04 by Glenda Christiansen DO) Blunt trauma (Acute) Traumatic hemo-pneumothorax (Acute) Multiple rib fractures involving four or more ribs (Acute) Elevated INR (Acute) Hematuria (Acute) Encounter for medication administration (Acute) Persistent air leak (Acute) Pneumothorax on left (Acute) Lung blebs (Acute) Tension pneumothorax, spontaneous (Acute) Hematoma, postoperative (Acute) AV block, complete (Acute) Hypertension (Chronic) 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 difficile colitis Clostridium difficile colitis (09/20/16) COVID-19 vaccine administered 12/15/20 01/19/21 Dizziness History of coagulation defect Mitral valve regurgitation replaced Multiple rib fractures Near syncope Primary malignant neoplasm of bladder Recurrent spontaneous pneumothorax Unilateral inguinal hernia Surgical History Appendectomy HERNIA REPAIR (~2007) History of aortic valve replacement Pacemaker (~2009) Presence of other heart-valve replacement (11/30/12) Aortic/Mitral Tonsillectomy and adenoidectomy Family History Mother Personal history of malignant neoplasm LIVER Father Heart disease Sister No problems noted. Brother No problems noted. 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 [employer] Current gender identity: male Do you feel safe at home: Yes Do you feel safe in your relationship?: Yes Exam Const General: cooperative, comfortable and no acute distress Nutritional Appearance: average body habitus HENMT Head: normal to inspection, normocephalic and atraumatic Eyes General: appearance normal, both eyes and all related structures Conjunctivae: conjunctivae normal Sclera: sclerae normal Chest Chest: normal inspection of the chest, no crepitus, localized rib tenderness with anteroposterior compression (left cammie-lateral), no masses, tenderness, pacemaker and other (no obvious flail chest) Cardio Rate: regular rate Rhythm: regular rhythm GI Inspection: normal to inspection, no edema and non-distended Palpation: soft, not firm, no guarding, no pulsatile masses, not rigid and tender (mild, generalized) Percussion: normal to percussion Back/Spine/Pelvis Back: No ecchymosis and back tenderness (left postero-lateral over ribs) Cervical Spine: normal cervical lordosis Thoracic/Lumbar Spine: thoracic and lumbar spine normal to inspection and surgical scar(s) present (left chest mid clavicular, and median sternotomy) Skin General skin exam: elasticity normal, turgor normal, no ecchymosis, no erythema and no petechiae Neuro General: patient alert, patient awake, patient oriented x3, moves all extremities, no focal motor deficits and CN's II-XI intact bilaterally Cognition: normal cognition Speech: speech normal Extrem General: normal to inspection and full ROM Right upper extremity: full ROM Left upper extremity: full ROM Psych Appearance: grossly normal Mental Status: mental status grossly normal Speech and Movement: speech and movement normal Mood: congruent mood Affect: normal affect Attitude: cooperative Thought Process: normal Thought Content: normal Insight: insight good Judgment: judgment good Results Last Vital Signs Temp 97.7 F 12/11/21 16:03 Pulse 60 12/11/21 17:14 Resp 16 12/11/21 17:14 BP 154/81 H 12/11/21 17:14 Pulse Ox 92 12/11/21 17:14 Labs Result diagrams: 12/11/21 19:00 12/11/21 19:00
[2021-12-11 19:12] LABS: Abs Immature Grans 0.06 10^3/uL (0.0-0.06); Absolute Basophil Count 0.06 10^3/uL (0.0-0.2); Absolute Eosinophil Count 0.05 10^3/uL (0.0-0.7); Absolute Lymphocyte Count 0.72 10^3/uL (1.2-3.4); Absolute Monocyte Count 0.75 10^3/uL (0.1-0.8); Absolute Neutrophil Count 10.59 10^3/uL (1.2-6.7); Basophils % 0.5; Eosinophils % 0.4; HCT 40.6 % (40.0-50.0); HGB 13.3 g/dL (13.5-17.5); Immature Grans % 0.5; Lymphocytes % 5.9; MCH 29.7 pg (27.0-33.0); MCHC 32.8 % (32.0-36.0); MCV 90.6 fL (80-95); MPV 9.6 fL (8.0-11.0); Monocytes % 6.1; Neutrophils % 86.6; Nucleated RBC 0 %; Platelet Count 180 10^3/uL (130-400); RBC 4.48 10^6/uL (4.36-5.78); RDW 13.5 % (11.8-14.1); RDW-SD 45.4 fL; WBC 12.23 10^3/uL (4.4-10.8)
[2021-12-11 19:26] LABS: INR 3.6 (0.9-1.1); Prothrombin Time 35.4 sec (9.3-11.0)
[2021-12-11 19:27] LABS: PTT Activated 43.9 sec (21.0-27.5)
[2021-12-11 19:28] LABS: ALT 27 U/L (16-63); AST 34 U/L (15-37); Alkaline Phosphatase 52 U/L (46-116); Anion Gap 4.7 mmol/L (3-11); BUN 22 mg/dL (7-18); Bilirubin, Total 0.5 mg/dL (0.2-1.0); CO2 29.3 mmol/L (21.0-32.0); Calcium 9.4 mg/dL (8.5-10.1); Chloride 103 mmol/L (98-107); Glucose 97 mg/dL (74-106); Magnesium 1.9 mg/dL (1.8-2.4); Potassium 4.1 mmol/L (3.5-5.1); Sodium 137 mmol/L (136-145); Total Protein 7.3 g/dL (6.4-8.2); Troponin I < 50 ng/L (<or=60)
[2021-12-11 19:40] VITALS: BP 133/74; PULSE 61; RESP 18; TEMP 36.4; O2SAT 94
[2021-12-11] MEDS: Omnipaque 350 MG/ML 100 ML BTL IJ (19:56)
--- NOTE | 2021-12-11 20:49 | DI.VRAD_ITS ---
PROCEDURE INFORMATION: Exam: CT Chest With Contrast; Diagnostic Exam date and time: 12/11/2021 6:12 PM Age: 71 years old Clinical indication: Injury or trauma; Fall; Blunt trauma (contusions or hematomas); Prior surgery; Patient HX: Multiple left rib fractures TECHNIQUE: Imaging protocol: Diagnostic computed tomography of the chest with contrast. 3D rendering (Not supervised by radiologist): MIP and/or 3D reconstructed images were created by the technologist. COMPARISON: CR XR RIBS LT W PA LAT CHEST 12/11/2021 5:35 PM FINDINGS: Tubes, catheters and devices: Permanent pacemaker in place. Lungs: Advanced centrilobular emphysema. Left upper lobe subpleural 1.9 cm nodule. Pleural spaces: Masslike pleural thickening along the left posterolateral aspect of the lung. Heart: Status post aortic and mitral valve replacement, likely mechanical valves in place. Aorta: Atherosclerotic thoracic aorta of normal caliber. Lymph nodes: Unremarkable. No enlarged lymph nodes. Liver: Heterogeneous enhancement within the right hepatic lobe, ill-defined focus of enhancement within hepatic segment VII/ VIII measures 4.2 x 3.2 by 3.3 cm, an underlying lesion cannot be ruled out. Trace subcapsular fluid over the right hepatic lobe. Bones/joints: Deformities of multiple old healed rib fractures on the right. Acute fracture of the left 12th rib. Fracture of the left 10th rib. Fracture of the left 9th rib. Fracture of the left 8th rib. Fracture of the left 7th rib. Fracture of the left 6th rib. Fracture of the left 5th rib. Status post thoracotomy by mid sternotomy. Trace amount of emphysema within left lateral chest wall associated with the fractures sites. Soft tissues: Unremarkable. IMPRESSION: 1. Multiple acute left rib fractures, 5th through 12th left ribs. Deformities of healed rib fractures on the right. 2. Advanced centrilobular emphysema and fibrosis. 3. Pleural thickening along the posterolateral aspect of the left hemithorax, this finding is associated with multiple rib fractures, may represent wall hematomas. 4. Status post thoracotomy. Status post replacement of mitral and aortic valves, likely mechanical valves in place. Permanent pacemaker in place. 5. Trace amount of subcapsular fluid over the right hepatic lobe, indeterminate chronicity, small liver laceration cannot be entirely ruled out. Focus of enhancement within right hepatic lobe, not typical appearance of laceration, may represent vascular shunt versus less likely space occupying lesion, can be further evaluated with hepatic protocol CT. 6. No pneumothorax identified. 7. Subpleural left upper lobe nodule, 1.9 centimetres in diameter. THIS REPORT CONTAINS FINDINGS THAT MAY BE CRITICAL TO PATIENT CARE. The findings were verbally communicated via telephone conference with NIDIA LEWIS at 8:49 PM EST on 12/11/2021. The findings were acknowledged and understood. Dictated and Authenticated by: Lico Ortiz MD. Ordering:RAPHAEL Casanova MD
[2021-12-11 21:26] LABS: Source Nasal/Nares
[2021-12-11] MEDS: Phytonadione 5 MG TABLET PO (21:35)
[2021-12-11 21:44] LABS: Troponin I < 50 ng/L (<or=60)
[2021-12-11 21:48] VITALS: BP 121/60; PULSE 60; RESP 15; TEMP 36.6; O2SAT 96
[2021-12-11 22:06] LABS: COVID-19 PCR Negative (Negative)
[2021-12-11 22:37] VITALS: BP 117/56; PULSE 60; RESP 17; TEMP 36.8; O2SAT 94
[2021-12-11 23:38] VITALS: BP 114/57; PULSE 60; TEMP 36.8
== END 2021-12-12 00:04 | disposition short-term general hospital (02) ==
PROVIDERS: Emergency Provider Registered Nurse Emergency; PCP Family Medicine
DX: S27.1XXA Traumatic hemothorax, initial encounter (principal); S22.42XA Multiple fractures of ribs, left side, initial encounter for closed fracture; S36.118A Other injury of liver, initial encounter; Z79.01 Long term (current) use of anticoagulants
CPT/HCPCS: 36415; 80053; 87635; 96365; 96366; 99282; 99285; 71046; 71100; 71260; 83735; 84484; 85025; 85610; 85730; J3490

== ENCOUNTER 2022-01-05 08:37 | Outpatient (CLI) | payer MEDICARE, BC, SELFPAY ==
--- NOTE | 2022-01-05 08:30 | RT.EKG_ITS ---
APPROVED REPORT Exam: Resting ECG Reason for Exam: AV Block Patient Location: O HR:76 bpm ECG Measurements Heart Rate [address] [id number] P [id number] QRSd 166 QRS -89 QT 475 T 74 QTc 535 Conclusion Afib/flut and V-paced complexes...other complexes, A-rate>240 No further analysis attempted due to paced rhythm
== END 2022-01-05 08:38 | disposition home or self-care (01) ==
LOC: DI.CARD 08:45
PROVIDERS: PCP Family Medicine; Referring Provider Family Medicine; Visit Provider Physician Assistant
DX: I44.2 Atrioventricular block, complete (principal)
CPT/HCPCS: 93010

== ENCOUNTER → 2022-01-05 08:37 | Outpatient (BNVA) | payer MEDICARE, BC, SELFPAY | PROVIDERS: PCP Family Medicine; Referring Provider Family Medicine; Visit Provider Physician Assistant | DX: I44.2 Atrioventricular block, complete (principal); Z95.2 Presence of prosthetic heart valve; Z95.0 Presence of cardiac pacemaker; I48.19 Other persistent atrial fibrillation; S22.42XA Multiple fractures of ribs, left side, initial encounter for closed fracture; X58.XXXA Exposure to other specified factors, initial encounter | CPT/HCPCS: 93005; 93280 ==

== ENCOUNTER 2022-01-21 12:34 | Outpatient (CLI) | payer MEDICARE, BC, SELFPAY ==
--- NOTE | 2022-01-21 12:45 | RT.EKG_ITS ---
APPROVED REPORT Exam: Resting ECG Reason for Exam: NPW Baseline needed Patient Location: O HR:82 bpm ECG Measurements Heart Rate 82 AXIS MD [id number] P [id number] QRSd 163 QRS -88 QT 436 T 85 QTc 510 Conclusion Afib/flutter and ventricular-paced rhythm...V-paced rhythm, A-rate>240 No further analysis attempted due to paced rhythm
== END 2022-01-21 12:35 | disposition home or self-care (01) ==
LOC: DI.CARD 12:50
PROVIDERS: PCP Family Medicine; Referring Provider Family Medicine; Visit Provider Internal Medicine Cardiovascular Disease
DX: I10 Essential (primary) hypertension (principal); I44.2 Atrioventricular block, complete; I48.19 Other persistent atrial fibrillation; Z95.0 Presence of cardiac pacemaker; Z95.2 Presence of prosthetic heart valve
CPT/HCPCS: 93010

== ENCOUNTER → 2022-01-21 12:34 | Outpatient (BNVA) | payer MEDICARE, BC, SELFPAY | PROVIDERS: PCP Family Medicine; Referring Provider Family Medicine; Visit Provider Internal Medicine Cardiovascular Disease | DX: R06.02 Shortness of breath (principal); J94.2 Hemothorax; X58.XXXA Exposure to other specified factors, initial encounter; Z95.0 Presence of cardiac pacemaker; Z95.2 Presence of prosthetic heart valve; I48.19 Other persistent atrial fibrillation; S22.42XA Multiple fractures of ribs, left side, initial encounter for closed fracture | CPT/HCPCS: 93005; 99203; 99214 ==

== ENCOUNTER 2022-02-16 03:54 | Outpatient (CLI) | payer MEDICARE, BC, SELFPAY | END 2022-02-16 03:55 | disposition home or self-care (01) | LOC: LBO 03:54 | PROVIDERS: PCP Family Medicine; Visit Provider Physician Assistant ==

== ENCOUNTER 2022-02-16 04:44 | Outpatient (CLI) | payer MEDICARE, BC, SELFPAY ==
[2022-02-16 09:39] LABS: INR 2.8 (0.9-1.1); Prothrombin Time 27.6 sec (9.3-11.0)
[2022-02-16 09:41] LABS: PTT Activated 50.9 sec (21.0-27.5)
[2022-02-16 10:19] LABS: ALT 22 U/L (16-63); AST 28 U/L (15-37); Alkaline Phosphatase 82 U/L (46-116); Anion Gap 6.5 mmol/L (3-11); BUN 22 mg/dL (7-18); Bilirubin, Total 0.5 mg/dL (0.2-1.0); CO2 27.5 mmol/L (21.0-32.0); Calcium 8.6 mg/dL (8.5-10.1); Chloride 103 mmol/L (98-107); Glucose 118 mg/dL (74-106); Potassium 4.3 mmol/L (3.5-5.1); Sodium 137 mmol/L (136-145); Total Protein 7.1 g/dL (6.4-8.2)
[2022-02-16 12:36] LABS: Source Nasal/Nares
[2022-02-16 15:25] LABS: COVID-19 PCR Negative (Negative)
== END 2022-02-16 04:45 | disposition home or self-care (01) ==
LOC: LBO 04:44
PROVIDERS: PCP Family Medicine; Visit Provider Physician Assistant
DX: I48.11 Longstanding persistent atrial fibrillation (principal); Z95.2 Presence of prosthetic heart valve; Z79.01 Long term (current) use of anticoagulants; Z20.822 Contact with and (suspected) exposure to COVID-19; Z01.818 Encounter for other preprocedural examination; Z01.812 Encounter for preprocedural laboratory examination
CPT/HCPCS: 36415; 80053; 87635; U0005; 85610; 85730

== ENCOUNTER 2022-02-18 07:16 | Day surgery (SDC) | payer MEDICARE, BC, SELFPAY ==
--- NOTE | 2022-02-18 06:58 | W.ANESPRE ---
General Info Date of Service Date Performed: 02/18/22 Height: 6 ft 1 in Weight: 77.111 kg Body Mass Index (BMI): 22.4 Surgical Procedure: Operation Date: 02/18/22 09:00 Proposed Procedure Side Surgeon p Cardioversion Candice Fitzgerald MD Meds Allergies and Home Medications Allergies Allergy/AdvReac Type Severity Reaction Status Date / Time No Known Allergies Allergy Verified 02/18/22 07:45 Home Medication Medication Instructions Recorded warfarin 10 mg tablet (Coumadin) 0 - 1 tab PO DIRECTED #90 tab 03/30/18 betamethasone dipropionate 0.05 % 1 applic TOPICAL DAILY PRN 04/14/21 topical cream tamsulosin 0.4 mg capsule 0.4 mg PO DAILY 12/11/21 aspirin 81 mg capsule,delayed 81 mg PO DAILY 02/17/22 release Current Visit Medications: Current Medications Generic Name Dose Route Start Last Admin Trade Name Freq PRN Reason Stop Dose Admin Sodium Chloride 1,000 mls @ 30 mls/hr 02/18/22 06:00 Saline 1000ml Bag IV 02/19/22 23:59 INFUSION SOPHIE IV Miscellaneous Supplies 1 each 02/18/22 06:00 Iv Access IV 02/19/22 23:59 DIRECTED SOPHIE Sodium Chloride 0 ml 02/18/22 06:00 Normal Saline Flush 10 Ml Syr IV 02/19/22 23:59 PRN PRN Sodium Chloride 0 ml 02/18/22 06:00 Normal Saline 10 Ml Vial IJ 02/19/22 23:59 DIRECTED PRN Sterile Water 0 ml 02/18/22 06:00 Water,Injection,Sterile 10 Ml Vial IJ 02/19/22 23:59 DIRECTED PRN PFSH Active Problems Active Problems: Problem Status Onset Code Cardiac pacemaker in situ Z95.0 Heart valve replaced 11/30/12 Z95.2 Hypertension I10 AV block, complete I44.2 Hematoma, postoperative Tension pneumothorax, spontaneous J93.0 Lung blebs J43.9 Pneumothorax on left J93.9 Persistent air leak Encounter for medication administration Z76.89 Elevated INR R79.1 Hematuria R31.9 Multiple rib fractures involving four or more ribs S22.49XA Traumatic hemo-pneumothorax S27.2XXA Blunt trauma T14.90XA Multiple fractures of ribs of left side S22.42XA Persistent atrial fibrillation I48.19 Medical History Medical History Anticoagulated on warfarin AVR/MVR; goal 2.5-3.5 C. difficile colitis Clostridium difficile colitis (09/20/16) COVID-19 vaccine administered 12/15/20 01/19/21 Dizziness History of coagulation defect Mitral valve regurgitation replaced-1998 Multiple rib fractures Near syncope Primary malignant neoplasm of bladder Recurrent spontaneous pneumothorax 02/2021 pt. stated he had this permanently fixed where they affixed the lung to the chest wall so it would stop recurring Unilateral inguinal hernia Surgical History Surgical History Appendectomy HERNIA REPAIR (~2007) History of aortic valve replacement [id number] with metal valve Pacemaker (~2009) Presence of other heart-valve replacement (11/30/12) Aortic/Mitral Tonsillectomy and adenoidectomy Tobacco Smoking/Tobacco Use Status: Former Tobacco Use Alcohol Alcohol Intake: never Substance Use Substance use: Never Substance use type: does not use Vital Signs and Lab Results Lab Results Blood Type / Crossmatch: No Data to Display Complete Blood Count: No Data to Display Complete Metabolic Panel: Sodium Level 137 mmol/L (136-145) 02/16/22 09:20 02/16/22 Potassium Level 4.3 mmol/L (3.5-5.1) 02/16/22 09:20 02/16/22 Chloride Level 103 mmol/L (98-107) 02/16/22 09:20 02/16/22 Carbon Dioxide Level 27.5 mmol/L (21.0-32.0) 02/16/22 09:20 02/16/22 Blood Urea Nitrogen 22 mg/dL (7-18) H 02/16/22 09:20 02/16/22 Creatinine 1.0 mg/dL (0.70-1.30) 02/16/22 09:20 02/16/22 Estimated GFR/1.73 m2 >= 60.00 (mL/min/1.73m2) 02/16/22 09:20 02/16/22 Calcium Level 8.6 mg/dL (8.5-10.1) 02/16/22 09:20 02/16/22 Albumin 4.0 g/dL (3.4-5.0) 02/16/22 09:20 02/16/22 Glucose Level 118 mg/dL (74-106) H 02/16/22 09:20 02/16/22 Liver Function Panel: Alanine Aminotransferase (ALT/SGPT) 22 U/L (16-63) 02/16/22 09:20 02/16/22 Aspartate Amino Transf (AST/SGOT) 28 U/L (15-37) 02/16/22 09:20 02/16/22 Coagulation Panel: INR International Normalized Ratio 2.8 (0.9-1.1) H 02/16/22 09:20 02/16/22 Prothrombin Time 27.6 sec (9.3-11.0) H 02/16/22 09:20 02/16/22 Activated Partial Thromboplast Time 50.9 sec (21.0-27.5) H 02/16/22 09:20 02/16/22 Cardiac Panel: No Data to Display Arterial Blood Gas: No Data to Display Venous Blood Gas: No Data to Display Pancreas Panel: No Data to Display Thyroid Panel: No Data to Display Infectious Disease: Coronavirus (COVID-19)(PCR) Negative (Negative) 02/16/22 09:35 02/16/22 Coronavirus 2019 Source Nasal/Nares 02/16/22 09:35 02/16/22 Blood Cultures: No Data to Display Toxicology Panel: No Data to Display Imaging and Studies Imaging and Studies Study information below may be from another EMR and interpreted by another provider. Please see original notes in EMR for more complete details. EKG Summary: Afib/flutter Echocardiogram Summary: Conclusion Left Ventricle : The left ventricle is normal size. The left ventricular systolic function is normal. The left ventricular ejection fraction is within the normal range. There is normal left ventricular wall thickness. There is normal LV segmental wall motion. Diastolic function is indeterminate. LVEF is 60%. Right Ventricle : The right ventricle is normal size. The right ventricular systolic function is normal. Atria : The left atrium size is normal. The right atrium size is normal. Aortic Valve : Mechanical aortic valve is present. It is well-seated without any periprosthetic regurgitation. Gradients through the mechanical valve are normal. Trace aortic regurgitation. Mitral Valve : Mechanical mitral prosthetic valve is well-seated without any periprosthetic regurgitation. The gradients across the mechanical mitral valve are within normal range. Trace mitral regurgitation. Great Vessels : The aortic root is normal in size. The ascending aorta is normal in size. Aortic arch is normal in caliber. IVC is normal in size and collapses >50% with inspiration. Compared to study from 10/17/2017: There is no significant change. Pulmonary Function Summary: IMPRESSION: Mild obstructive airways disease with no significant bronchodilator response. This is associated with moderate diffusion defect. Clinical correlation recommended. Anesthesia Assessment and Plan Anesthesia History Personal History: No History of Anesthesia Complications and No History of General Anesthesia Family History: No Family History of Anesthesia Complications Exercise Tolerance Exercise Tolerance: Metabolic Equivalents<4 Pertinent Negatives Pertinent Negatives: No Symptoms of GERD and No History of CVA/TIA Cardiac & Pulmonary Exam Cardiac Exam: Normal S1/S2 Heart Sounds Pulmonary Exam: Clear Bilateral Breath Sounds Implantable Cardiac Device Does patient have a Pacemaker or an ICD?: Yes Device Hospital Insurance Clerk:: SAMY ALEX PM Reason for Placement:: Persistent A-fib Date of Last Device Interrogation:: 09/20/21 Airway Exam Known Difficult Airway: No Mallampati Class: 2 Mouth Opening: Normal (> 3cm) Thyromental Distance: Greater than 3 cm Neck Range of Motion: Full ROM Neck Circumference: Normal Teeth Condition: Normal Dentition ASA Classification ASA Score: ASA 3 Emergency Case?: No NPO Status NPO Status: NPO Clears >2 hours, Solids >8 hours Anesthesia Plan Resuscitation Status: Full Code Anesthesia Technique: General Anesthesia Airway Planned: Natural Airway Monitors Used: Standard Monitors
[2022-02-18 07:47] VITALS: BP 101/46; PULSE 72; RESP 16; TEMP 36.5; O2SAT 100
--- NOTE | 2022-02-18 08:00 | RT.EKG_ITS ---
APPROVED REPORT Exam: Resting ECG Reason for Exam: pre op ekg Patient Location: O HR:70 bpm ECG Measurements Heart Rate 70 AXIS AR [id number] P [id number] QRSd 162 QRS -87 QT 466 T 72 QTc 502 Conclusion Afib/flutter and ventricular-paced rhythm...V-paced rhythm, A-rate>240
[2022-02-18] MEDS: Normal Saline 1,000 ML 30 ML IV (08:28)
[2022-02-18 08:40] VITALS: BMI 22.4
--- NOTE | 2022-02-18 09:00 | RT.EKG_ITS ---
APPROVED REPORT Exam: Resting ECG Reason for Exam: post op ekg Patient Location: O HR:74 bpm ECG Measurements Heart Rate 74 AXIS MI 174 P 73 QRSd 168 QRS -84 QT 457 T 80 QTc 509 Conclusion Atrial-sensed ventricular-paced rhythm...ventricular pacing tracks p-waves Since previous atrial flutter fibrillation has resolved
[2022-02-18 09:10] LABS: INR 2.9 (0.9-1.1); PTT Activated 46.6 sec (21.0-27.5); Prothrombin Time 28.3 sec (9.3-11.0)
[2022-02-18 09:50] VITALS: BP 101/57; PULSE 70; RESP 16; TEMP 36.4; O2SAT 97
--- NOTE | 2022-02-18 09:52 | W.CARDVER ---
Date of service: 02/18/22 Time of Service: 09:53 Cardioversion DATE OF PROCEDURE: 02/18/22 PRE-OP DIAGNOSES: Atrial fibrillation POST-OP DIAGNOSES: same Indications: This is a 71-year-old man who was had about a year. He is scheduled for synchronized cardioversion to try and restore sinus rhythm Procedure Description: Patient was brought to the procedure room where anterior and posterior ZOLL pads were placed. Sedation was administered by the department of anesthesia. When the patient was adequately sedated, he had 3 synchronized shocks, initially 150 W seconds, then 2 at 200 W seconds. He remained in a paced rhythm with underlying atrial fibrillation. Sinus rhythm was not restored
--- NOTE | 2022-02-18 09:54 | W.PM.DSUDISC ---
Discharge Plan Disposition Patient Disposition: HOME Condition: Stable Discharge Details Attending Provider: Candice Fitzgerald Primary Care Provider: Linda Mccray Home Meds and New Rx's Prescriptions: Continued warfarin [Coumadin] 10 MG tablet 0 - 1 tab PO DIRECTED Qty: 90 4RF Rx Instructions: DOSE BASED ON INR betamethasone dipropionate 0.05 % cream 1 applic topical PRN PRN0RF tamsulosin 0.4 mg capsule 0.4 mg PO DAILY 0RF Label Comments: TAKE 1 CAPSULE BY MOUTH DAILY aspirin 81 mg Capsule,Delayed Release(Dr/Ec) 81 mg PO DAILY 0RF Discharge Instructions Stand Alone Forms: DSU Cardioversion Post-Op Activity:: Activity as Tolerated Diet:: Normal Diet Discharge Orders Discharge Orders: Discharge Order (Routine); Ordered 02/18/22 Ordered By: Candice Fitzgerald
[2022-02-18 10:22] VITALS: BP 106/60; PULSE 77; RESP 16; TEMP 36.4; O2SAT 97
--- NOTE | 2022-02-18 11:03 | W.ANESPOSTOP ---
Postoperative Evaluation Date, Time and Location Date Performed: 02/18/22 Time Performed: : Patient Location: Day Surgery Unit Vital Signs Most Recent Imported Vital Signs: Most Recent Vital Signs Temp Pulse Resp BP Pulse Ox 36.4 C L 77 16 106/60 97 02/18/22 10:22 02/18/22 10:22 02/18/22 10:22 02/18/22 10:02/18/22 10:22 Pain Score Most Recent Pain Score: Most Recent Pain Score Pain Level 0 02/18/22 10:22 Assessment Mental Status: Awake (Alert & Oriented to Patient Baseline) Airway and Respiratory Function: Patent airway with normal (patient baseline) respiratory exam Cardiovascular Function: Hemodynamically Stable Hydration Status: Adequately Hydrated Nausea & Vomiting: No Nausea or Vomiting Pain: Pt. Denies Any Pain Peripheral Nerve Block: Patient did not receive a nerve block
== END 2022-02-18 11:14 | disposition home or self-care (01) ==
PROVIDERS: PCP Family Medicine; Visit Provider Internal Medicine Cardiovascular Disease
PROC: 5A2204Z Restoration of Cardiac Rhythm, Single (ICD-10-PCS; CPT 92960; principal; 2022-02-18 09:00)
DX: I48.11 Longstanding persistent atrial fibrillation (principal); Z79.01 Long term (current) use of anticoagulants; I10 Essential (primary) hypertension; Z95.0 Presence of cardiac pacemaker
CPT/HCPCS: 92960; 36415; 85610; 85730; 93005; 93010; J2001

== ENCOUNTER 2022-02-21 15:39 | Emergency (ER) | payer MEDICARE, BC, SELFPAY ==
[2022-02-21] VITALS (23 sets, daily range): BP systolic 106–142; BP diastolic 54–77; PULSE 68–97; RESP 10–23; TEMP 36.8; O2SAT 95–99
--- NOTE | 2022-02-21 15:30 | RT.EKG_ITS ---
APPROVED REPORT Exam: Resting ECG Reason for Exam: increased SOB Patient Location: E HR:72 bpm ECG Measurements Heart Rate 72 AXIS PA 52 P -87 QRSd 99 QRS 22 QT 468 T -88 QTc 512 Conclusion Ventricular-paced complexes...other complexes also detected Physician: good capture, unchanged, negative for scarbossa
--- NOTE | 2022-02-21 16:01 | DI.RAD_ITS ---
Exam(s) XR CHEST 2V PA LATERAL EXAM: XR CHEST 2V PA LATERAL CLINICAL HISTORY: afib,weakness. TECHNIQUE: 2D digital imaging was performed. COMPARISON: CR XR PORTABLE CHEST AP from 03/04/2021 CR,XR XR PORTABLE CHEST AP POST LINE from 03/05/2021 FINDINGS: 2 views: There is sternotomy wires and bipolar left subclavian pacemaker with lead tips in are in RV again not ed. Also again noted are prosthetic aortic and mitral valves. There is no pulmonary edema. Multipl e right-sided healed rib fractures are again noted and multiple more recent left rib fractures which her November 2021 are again noted including a displaced fracture of the left 8th rib. There is no ob vious infiltrate nor pneumothorax nor pleural effusion on the left side. Also no significant finding s in the lower right lung field. Are some increased markings in the right upper lobe noted appear ch ronic and unchanged from at least February 2021. With respect to the pleural based mass left side, this is again noted and adjacent to the displaced 8 th rib fracture and probably represents pleural thickening related to the trauma. Please note that CT scan performed in November 2021 also revealed additional finding on the left side measuring 1.8 x 1.5 cm which was not immediately adjacent to a rib fracture and was suspicious for p ossible neoplasm and appropriate follow-up was recommended. Therefore follow-up CT scan is recommend ed IMPRESSION: As above. Follow-up CT scan recommended. DATA REPOSITORY: RADIATION DOSE DELIVERED:
--- NOTE | 2022-02-21 16:03 | ED.GENADUL_ITS ---
Discharge Plan Disposition Patient Disposition: HOME Condition: Stable Discharge Details Clinical Impression: Right lower lobe pneumonia Primary Care Provider: Linda Mccray ED Provider: Dean Chacon Home Meds and New Rx's Prescriptions: New doxycycline hyclate 100 mg capsule 100 mg PO BID Qty: 20 0RF Continued warfarin [Coumadin] 10 MG tablet 0 - 1 tab PO DIRECTED Qty: 90 4RF Rx Instructions: DOSE BASED ON INR betamethasone dipropionate 0.05 % cream 1 applic topical PRN PRN0RF tamsulosin 0.4 mg capsule 0.4 mg PO DAILY 0RF Label Comments: TAKE 1 CAPSULE BY MOUTH DAILY aspirin 81 mg Capsule,Delayed Release(Dr/Ec) 81 mg PO DAILY 0RF Discharge Instructions Instructions: Pneumonia (ED) Additional Instructions: Work-up in the ER does not reveal any obvious emergent process but x-ray is concerning for a right lower lobe pneumonia which could explain your increasing dyspnea and cough. Doxycycline as directed. I have a call out to the electrophysiology team at [facility] but you preferred to contact them your self tomorrow morning rather than wait longer here in the ER. Please watch for new or worsening symptoms and return to the ER for any concerns. Lastly, I strongly recommend reaching out to your electrophysiology team, generalist, primary care provider, tomorrow to discuss your ER visit, ongoing symptoms, and need for outpatient reevaluation. Medical Decision Making This is a 71-year-old gentleman presents to the ER for chronic yet progressive shortness of breath for the past 7 months or so. Clinically he appears well, nontoxic, pulse of 73, respirations 20, afebrile, lungs clear to auscultation O2 sat 98% on room air. He denies any chest pain, pain or swelling in his calves. He is already anticoagulated. Plan is to initiate cardiac work-up, including a BNP given his shortness of breath, will check his coags, and if his INR is appropriate do not plan to pursue D-dimer and/or chest CTA as patient is already anticoagulated. Given the duration of the symptoms I believe a single troponin is reasonable. We will also obtain a COVID Laboratory values are grossly unremarkable for any obvious emergent process. INR of 2.5. No evidence of leukocytosis. COVID-negative Discussed benign work-up thus far. Awaiting chest x-ray. Discussed findings with patient. He wonders if we could reach out to the agricultural sales representative at [facility] to determine what medication he should be taking and at what dose. He also states that his generalist had recommended an outpatient echocardiogram. I was able to speak with Dr. Castillo, electrophysiology at [facility]. He was able to review the recent notes at [facility]. It would appear as though they had called in a prescription for amiodarone, not amlodipine. He is unsure of the exact dose or the hang up at the pharmacy. Either way he does not believe this medication is necessary at this evening and recommends that he reaches out to their team tomorrow so that this can get sorted out. Chest x-ray read by radiology is concerning for right lower lobe infiltrate. Discussed work-up with patient. Will initiate oral doxycycline therapy. He will reach out to his primary care provider, generalist, and agricultural sales representative tomorrow. Strict discharge and return precautions were provided. Patient understands, is agreeable to this plan, and has no additional questions or concerns upon discharge. This documentation was generated using [employer] system, please disregard any oddities of phrase or misspellings. Medical Records Medical records reviewed: Yes I reviewed the patient's medical records. Imaging Data Radiologic Study: Attestation: I personally reviewed and interpreted this imaging study as follows: Imaging: X-Ray Radiologist's impression: PROCEDURE INFORMATION: Exam: XR Chest Exam date and time: 02/21/2022 5:01 PM Age: 71 years old Clinical indication: Other: Afib, weakness TECHNIQUE: Imaging protocol: XR of the chest. Views: 2 views. COMPARISON: 1. CT CHEST W 12/11/2021 8:03 PM 2. CR XR RIBS LT W PA LAT CHEST 12/11/2021 5:35 PM 3. CR XR PORTABLE CHEST AP 03/05/2021 6:05 AM FINDINGS: Tubes, catheters and devices: There is a left-sided dual lead pacer within 1 lead in the right atrium and 1 within the right ventricle. Lungs: There is increased density within the right lower lobe and right lower lobe infiltrate is suspected. Pleural spaces: Unremarkable. No pleural effusion. No pneumothorax. Heart/Mediastinum: See Vasculature finding. Vasculature: The patient is status post aortic and mitral valve replacement surgery. Bones/joints: There are multiple old healed right rib fractures. There are multiple old left healed rib fractures. There are degenerative changes of thoracic spine. IMPRESSION: Suspect right lower lobe infiltrate. Left-sided dual lead pacer as above. Status post sternotomy and aortic and mitral valve repla cement surgery. Multiple old bilateral healed rib fractures. Degenerative changes of the thoracic spine. Lab Data Lab results reviewed: Yes I reviewed the patient's lab results. Labs: Laboratory Tests Range/Units 02/21/22 02/21/22 02/21/22 16:07 16:07 16:07 WBC (4.4-10.8) 10^3/uL RBC (4.36-5.78) 10^6/uL Hgb (13.5-17.5) g/dL Hct (40.0-50.0) % MCV (80-95) fL MCH (27.0-33.0) pg MCHC (32.0-36.0) % RDW (11.8-14.1) % Plt Count (130-400) 10^3/uL MPV (8.0-11.0) fL Immature Gran % Neutrophils % Lymphocytes % Monocytes % Eosinophils % Basophils % Nucleated RBC % (0.0-0.3) % Absolute Neutrophils (1.2-6.7) 10^3/uL Absolute Lymphocytes (1.2-3.4) 10^3/uL Absolute Monocytes (0.1-0.8) 10^3/uL Absolute Eosinophils (0.0-0.7) 10^3/uL Absolute Basophils (0.0-0.2) 10^3/uL PT (9.3-11.0) sec 24.9 H INR (0.9-1.1) 2.5 H APTT (21.0-27.5) sec 44.8 H Sodium (136-145) mmol/L 138 Potassium (3.5-5.1) mmol/L 4.0 Chloride (98-107) mmol/L 102 Carbon Dioxide (21.0-32.0) mmol/L 27.8 Anion Gap (3-11) mmol/L 8.2 BUN (7-18) mg/dL 19 H Creatinine (0.70-1.30) mg/dL 0.8 Estimated GFR/1.73 m2 (mL/min/1.73m2) >= 60.00 Glucose (74-106) mg/dL 85 Calcium (8.5-10.1) mg/dL 9.1 Magnesium (1.8-2.4) mg/dL 2.1 Total Bilirubin (0.2-1.0) mg/dL 0.7 AST (15-37) U/L 30 ALT (16-63) U/L 21 Alkaline Phosphatase (46-116) U/L 75 Troponin I (<or=60) ng/L < 50 NT-Pro-B Natriuret Pep (<300) pg/mL 210 Total Protein (6.4-8.2) g/dL 7.5 Albumin (3.4-5.0) g/dL 3.8 COVID-19 Source SARS-CoV-2 (PCR) (Negative) Range/Units 02/21/22 02/21/22 16:07 16:13 WBC (4.4-10.8) 10^3/uL 8.08 RBC (4.36-5.78) 10^6/uL 4.24 L Hgb (13.5-17.5) g/dL 12.1 L Hct (40.0-50.0) % 36.6 L MCV (80-95) fL 86 MCH (27.0-33.0) pg 28.5 MCHC (32.0-36.0) % 33.1 RDW (11.8-14.1) % 13.7 Plt Count (130-400) 10^3/uL 230 MPV (8.0-11.0) fL 9.4 Immature Gran % 0.1 Neutrophils % 73.2 Lymphocytes % 13.4 Monocytes % 9.7 Eosinophils % 2.7 Basophils % 0.9 Nucleated RBC % (0.0-0.3) % 0.0 Absolute Neutrophils (1.2-6.7) 10^3/uL 5.92 Absolute Lymphocytes (1.2-3.4) 10^3/uL 1.08 L Absolute Monocytes (0.1-0.8) 10^3/uL 0.78 Absolute Eosinophils (0.0-0.7) 10^3/uL 0.22 Absolute Basophils (0.0-0.2) 10^3/uL 0.07 PT (9.3-11.0) sec INR (0.9-1.1) APTT (21.0-27.5) sec Sodium (136-145) mmol/L Potassium (3.5-5.1) mmol/L Chloride (98-107) mmol/L Carbon Dioxide (21.0-32.0) mmol/L Anion Gap (3-11) mmol/L BUN (7-18) mg/dL Creatinine (0.70-1.30) mg/dL Estimated GFR/1.73 m2 (mL/min/1.73m2) Glucose (74-106) mg/dL Calcium (8.5-10.1) mg/dL Magnesium (1.8-2.4) mg/dL Total Bilirubin (0.2-1.0) mg/dL AST (15-37) U/L ALT (16-63) U/L Alkaline Phosphatase (46-116) U/L Troponin I (<or=60) ng/L NT-Pro-B Natriuret Pep (<300) pg/mL Total Protein (6.4-8.2) g/dL Albumin (3.4-5.0) g/dL COVID-19 Source Nasal/Nares SARS-CoV-2 (PCR) (Negative) Negative ECG Data Attestation: I personally reviewed and interpreted this ECG (s) as follows: Interpretation: Please see official report by Dr. Mejia. Ventricular paced complexes. Ventricular rate of 72 HPI General Mode of arrival: ambulatory . Date/Time Provider Initiated Documentation: 02/21/22 15:44 . Limitations to Documentation: no limitations . Information obtained by: patient . HPI Narrative: This is a 71-year-old gentleman presenting to the ER for evaluation of what he describes as ongoing and progressive shortness of breath for many months. Patient has a past medical history that includes heart valve replacement x2, pacemaker, chronic anticoagulation, hemopneumothorax, lung blebs, hypertension, and a failed cardioversion on Monday for atrial fibrillation. Patient reports chronic, mild cough which is occasionally tinged with blood. He denies recent illness, fever, chest pain, abdominal pain, nausea, vomiting, pain or swelling in his legs. Patient reports that given he had his failed cardioversion, he was supposed to be starting a new medication prescribed by his agricultural sales representative at [facility], but there was an issue with the prescription and he has not begun taking the medication. Related Data Home Medications Medication Instructions Recorded Confirmed warfarin 10 mg tablet (Coumadin) 0 - 1 tab PO DIRECTED #90 tab 03/30/18 02/21/22 betamethasone dipropionate 0.05 % 1 applic TOPICAL PRN PRN 04/14/21 02/18/22 topical cream tamsulosin 0.4 mg capsule 0.4 mg PO DAILY 12/11/21 02/21/22 aspirin 81 mg capsule,delayed 81 mg PO DAILY 02/17/22 02/21/22 release doxycycline hyclate 100 mg capsule 100 mg PO BID #20 cap 02/21/22 Previous Rx's Medication Instructions Recorded warfarin 10 mg tablet (Coumadin) 0 - 1 tab PO DIRECTED #90 tab 03/30/18 doxycycline hyclate 100 mg capsule 100 mg PO BID #20 cap 02/21/22 Allergies Allergy/AdvReac Type Severity Reaction Status Date / Time No Known Allergies Allergy Verified 02/18/22 07:45 General Stated Complaint: SOB YASMIN: 3 Review of Systems Constitutional Constitutional: Denies fever(s), Denies headache(s) and Denies weakness ENT Ears, Nose, Mouth, and Throat: Denies headache(s) and Denies neck pain Cardiovascular Cardiovascular: Denies chest pain and Reports dyspnea Respiratory Respiratory: Reports cough and Reports dyspnea Gastrointestinal Gastrointestinal: Denies abdominal pain, Denies nausea and Denies vomiting Musculoskeletal Musculoskeletal: Denies back pain and Denies neck pain Integumentary/Breasts Skin/Breast: Denies rash Neurologic Neurologic: Denies headache(s) and Denies weakness Hematologic/Lymphatic Hematologic/Lymphatic: Reports easy bleeding and Reports easy bruising FORMERLY [facility], [facility] All Active Problems Cardiac pacemaker in situ (Chronic) dual lead Med[employer]onic - PG replacement 07/31/2020 Heart valve replaced (Chronic 11/30/12) Aortic/Mitral mechanical Hypertension (Chronic) AV block, complete (Acute) Hematoma, postoperative (Acute) Tension pneumothorax, spontaneous (Acute) Lung blebs (Acute) Pneumothorax on left (Acute) Persistent air leak (Acute) Encounter for medication administration (Acute) Elevated INR (Acute) Hematuria (Acute) Multiple rib fractures involving four or more ribs (Acute) Traumatic hemo-pneumothorax (Acute) Blunt trauma (Acute) Multiple fractures of ribs of left side (Acute) Persistent atrial fibrillation (Acute) persistent since 03/09/2021 after VATS for spontaneous pneumo anticoag with coumadin for mechanical valves No RVR - hx CHB with pacemaker Right lower lobe pneumonia (Acute) Medical History Anticoagulated on warfarin AVR/MVR; goal 2.5-3.5 C. difficile colitis Clostridium difficile colitis (09/20/16) COVID-19 vaccine administered 12/15/20 01/19/21 Dizziness History of coagulation defect Mitral valve regurgitation replaced-1998 Multiple rib fractures Near syncope Primary malignant neoplasm of bladder Recurrent spontaneous pneumothorax 02/2021 pt. stated he had this permanently fixed where they affixed the lung to the chest wall so it would stop recurring Unilateral inguinal hernia Surgical History Appendectomy HERNIA REPAIR (~2007) History of aortic valve replacement [id number] 1998 with metal valve Pacemaker (~2009) Presence of other heart-valve replacement (11/30/12) Aortic/Mitral Tonsillectomy and adenoidectomy Family History Mother Personal history of malignant neoplasm LIVER Father Heart disease Sister No problems noted. Brother No problems noted. 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 [employer] Current gender identity: male Do you feel safe at home: Yes Do you feel safe in your relationship?: Yes Exam Const General: cooperative, healthy appearing, comfortable and no acute distress Orientation: alert, awake and oriented x3 HENMT Head: normal to inspection, normocephalic and atraumatic Face and sinus: normal facial exam Mouth: moist mucous membranes Eyes General: appearance normal, both eyes and all related structures Conjunctivae: conjunctivae normal Neck Neck: normal visual inspection, full ROM, meningismus present, trachea midline and supple Resp Effort & Inspection: normal respiratory effort and able to speak in complete sentences Auscultation: clear to auscultation bilaterally Cardio Rate: regular rate Rhythm: regular rhythm GI Palpation: soft, not firm, no guarding, no pulsatile masses and nontender Back/Spine/Pelvis Back: No back tenderness Skin General skin exam: no rashes or lesions noted Neuro General: patient alert, patient awake, moves all extremities and no focal motor deficits Cognition: normal cognition Speech: speech normal Gait: normal gait Motor: muscle tone normal throughout Sensory Exam: no sensory deficits noted Extrem General: normal to inspection, full ROM, capillary refill normal, no pedal edema and no calf tenderness Psych Appearance: grossly normal Mental Status: mental status grossly normal Course Vital Signs Vital signs: Vital Signs Temperature 36.8 C 02/21/22 15:44 Pulse 73 02/21/22 15:44 Respiratory Rate 20 02/21/22 15:44 Blood Pressure 133/59 L 02/21/22 15:44 Pulse Oximetry 98 02/21/22 15:44 Temperature 36.8 C 02/21/22 15:44 Temperature Source Skin 02/21/22 15:44 Pulse 73 02/21/22 15:44 Respiratory Rate 20 02/21/22 15:52 Respiratory Effort Short of Breath 02/21/22 15:52 Respiratory Depth Normal 02/21/22 15:52 Respiratory Pattern Normal 02/21/22 15:52 Blood Pressure 133/59 L 02/21/22 15:44 Blood Pressure Position Sitting 02/21/22 15:44 Pulse Oximetry 98 02/21/22 15:44 Oxygen Delivery Method Room Air 02/21/22 15:44 Oxygen Flow Rate 0 02/21/22 15:44 Pain Level 0 02/21/22 15:44
[2022-02-21 16:16] LABS: Abs Immature Grans 0.01 10^3/uL (0.0-0.06); Absolute Basophil Count 0.07 10^3/uL (0.0-0.2); Absolute Eosinophil Count 0.22 10^3/uL (0.0-0.7); Absolute Lymphocyte Count 1.08 10^3/uL (1.2-3.4); Absolute Monocyte Count 0.78 10^3/uL (0.1-0.8); Absolute Neutrophil Count 5.92 10^3/uL (1.2-6.7); Basophils % 0.9; Eosinophils % 2.7; HCT 36.6 % (40.0-50.0); HGB 12.1 g/dL (13.5-17.5); Immature Grans % 0.1; Lymphocytes % 13.4; MCH 28.5 pg (27.0-33.0); MCHC 33.1 % (32.0-36.0); MCV 86 fL (80-95); MPV 9.4 fL (8.0-11.0); Monocytes % 9.7; Neutrophils % 73.2; Platelet Count 230 10^3/uL (130-400); RBC 4.24 10^6/uL (4.36-5.78); RDW 13.7 % (11.8-14.1); RDW-SD 43.6 fL; WBC 8.08 10^3/uL (4.4-10.8)
[2022-02-21 16:24] LABS: Source Nasal/Nares
[2022-02-21 16:45] LABS: INR 2.5 (0.9-1.1); Prothrombin Time 24.9 sec (9.3-11.0)
[2022-02-21 16:49] LABS: ALT 21 U/L (16-63); AST 30 U/L (15-37); Albumin 3.8 g/dL (3.4-5.0); Alkaline Phosphatase 75 U/L (46-116); Anion Gap 8.2 mmol/L (3-11); BUN 19 mg/dL (7-18); Bilirubin, Total 0.7 mg/dL (0.2-1.0); CO2 27.8 mmol/L (21.0-32.0); CREATININE 0.8 mg/dL (0.70-1.30); Calcium 9.1 mg/dL (8.5-10.1); Chloride 102 mmol/L (98-107); Glucose 85 mg/dL (74-106); Sodium 138 mmol/L (136-145); Total Protein 7.5 g/dL (6.4-8.2); Troponin I < 50 ng/L (<or=60)
[2022-02-21 17:01] LABS: PTT Activated 44.8 sec (21.0-27.5)
[2022-02-21 17:04] LABS: COVID-19 PCR Negative (Negative)
[2022-02-21 17:08] LABS: Magnesium 2.1 mg/dL (1.8-2.4); NT-proBNP 210 pg/mL (<300)
--- NOTE | 2022-02-21 17:35 | DI.VRAD_ITS ---
PROCEDURE INFORMATION: Exam: XR Chest Exam date and time: 02/21/2022 5:01 PM Age: 71 years old Clinical indication: Other: Afib, weakness TECHNIQUE: Imaging protocol: XR of the chest. Views: 2 views. COMPARISON: 1. CT CHEST W 12/11/2021 8:03 PM 2. CR XR RIBS LT W PA LAT CHEST 12/11/2021 5:35 PM 3. CR XR PORTABLE CHEST AP 03/05/2021 6:05 AM FINDINGS: Tubes, catheters and devices: There is a left-sided dual lead pacer within 1 lead in the right atrium and 1 within the right ventricle. Lungs: There is increased density within the right lower lobe and right lower lobe infiltrate is suspected. Pleural spaces: Unremarkable. No pleural effusion. No pneumothorax. Heart/Mediastinum: See Vasculature finding. Vasculature: The patient is status post aortic and mitral valve replacement surgery. Bones/joints: There are multiple old healed right rib fractures. There are multiple old left healed rib fractures. There are degenerative changes of thoracic spine. IMPRESSION: Suspect right lower lobe infiltrate. Left-sided dual lead pacer as above. Status post sternotomy and aortic and mitral valve replacement surgery. Multiple old bilateral healed rib fractures. Degenerative changes of the thoracic spine. Dictated and Authenticated by: Gonzalo Jimenez MD. Ordering:LILLIAN Moran MD
[2022-02-21] MEDS: Doxycycline Hyclate 100 MG CAP PO (17:42)
== END 2022-02-21 18:20 | disposition home or self-care (01) ==
PROVIDERS: Emergency Provider Physician Assistant; PCP Family Medicine
DX: J18.9 Pneumonia, unspecified organism (principal); R06.02 Shortness of breath; I48.91 Unspecified atrial fibrillation; R53.1 Weakness; Z20.822 Contact with and (suspected) exposure to COVID-19
CPT/HCPCS: 36415; 80053; 87635; 93005; 99284; 71046; 83735; 83880; 84484; 85025; 85610; 85730; 93010

== ENCOUNTER 2022-03-03 13:38 | Outpatient (CLI) | payer MEDICARE, BC, SELFPAY ==
--- NOTE | 2022-03-03 13:30 | RT.EKG_ITS ---
APPROVED REPORT Exam: Resting ECG Reason for Exam: Afib s/p cardioversion Patient Location: O HR:76 bpm ECG Measurements Heart Rate 76 AXIS AZ 188 P 50 QRSd 170 QRS -88 QT 472 T 76 QTc 531 Conclusion Atrial-sensed ventricular-paced rhythm...ventricular pacing tracks p-waves No further analysis attempted due to paced rhythm
== END 2022-03-03 13:39 | disposition home or self-care (01) ==
LOC: DI.CARD 13:39
PROVIDERS: PCP Family Medicine; Visit Provider Internal Medicine Cardiovascular Disease
DX: I48.19 Other persistent atrial fibrillation (principal)
CPT/HCPCS: 93010

== ENCOUNTER → 2022-03-03 14:13 | Outpatient (BNVA) | payer MEDICARE, BC, SELFPAY | PROVIDERS: PCP Family Medicine; Referring Provider Family Medicine; Visit Provider Internal Medicine Cardiovascular Disease | DX: I48.19 Other persistent atrial fibrillation (principal); Z95.0 Presence of cardiac pacemaker; Z95.2 Presence of prosthetic heart valve | CPT/HCPCS: 93005; 99214; 99213 ==

== ENCOUNTER 2022-03-21 07:28 | Emergency (ER) | payer MEDICARE, BC, SELFPAY ==
[2022-03-21 07:31] VITALS: BP 125/63; PULSE 79; RESP 16; TEMP 36.8; O2SAT 97
[2022-03-21 08:13] VITALS: RESP 18
[2022-03-21 08:28] LABS: Abs Immature Grans 0.06 10^3/uL (0.0-0.06); Absolute Basophil Count 0.09 10^3/uL (0.0-0.2); Absolute Eosinophil Count 0.22 10^3/uL (0.0-0.7); Absolute Lymphocyte Count 0.98 10^3/uL (1.2-3.4); Absolute Monocyte Count 0.54 10^3/uL (0.1-0.8); Absolute Neutrophil Count 5.63 10^3/uL (1.2-6.7); Basophils % 1.2; Eosinophils % 2.9; HCT 33.5 % (40.0-50.0); HGB 10.7 g/dL (13.5-17.5); Immature Grans % 0.8; MCH 28.9 pg (27.0-33.0); MCHC 31.9 % (32.0-36.0); MCV 91 fL (80-95); MPV 9.1 fL (8.0-11.0); Monocytes % 7.2; Neutrophils % 74.9; Platelet Count 376 10^3/uL (130-400); RDW 15.2 % (11.8-14.1); RDW-SD 48.4 fL; WBC 7.52 10^3/uL (4.4-10.8)
[2022-03-21 08:41] LABS: INR 1.2 (0.9-1.1); Prothrombin Time 11.9 sec (9.3-11.0)
[2022-03-21 08:46] LABS: ALT 30 U/L (16-63); AST 32 U/L (15-37); Albumin 3.8 g/dL (3.4-5.0); Alkaline Phosphatase 78 U/L (46-116); BUN 16 mg/dL (7-18); Bilirubin, Total 0.8 mg/dL (0.2-1.0); Calcium 8.8 mg/dL (8.5-10.1); Chloride 105 mmol/L (98-107); Glucose 94 mg/dL (74-106); Potassium 4.3 mmol/L (3.5-5.1); Sodium 141 mmol/L (136-145); Total Protein 7.7 g/dL (6.4-8.2)
--- NOTE | 2022-03-21 09:46 | ED.GENADUL_ITS ---
Discharge Plan Disposition Patient Disposition: HOME Condition: Stable Discharge Details Clinical Impression: Anticoagulation goal of INR 2 to 3, Anemia Primary Care Provider: Linda Mccray ED Provider: Madelyn Marcano Home Meds and New Rx's Prescriptions: Continued warfarin [Coumadin] 10 MG tablet 0 - 1 tab PO DIRECTED Qty: 90 4RF Rx Instructions: DOSE BASED ON INR betamethasone dipropionate 0.05 % cream 1 applic topical PRN PRN tamsulosin 0.4 mg capsule 0.4 mg PO DAILY Label Comments: TAKE 1 CAPSULE BY MOUTH DAILY Discharge Instructions Instructions: Anemia (ED) Additional Instructions: Please take your usual warfarin dose of 10 mg tonight. Further dosing will be determined by your primary care physician at your appointment tomorrow. Please return immediately to the emergency department if you develop any new or wo rsening symptoms, if your condition does not improve as expected, or if you become otherwise concerned. It is extremely important that you attend your scheduled appointment tomorrow with your primary care doctor. Referrals: Linda Mccray [Primary Care Provider] - Discharge Data Discharge Date/Time-TO BE ENTERED AT DEPARTURE: 03/21/22 09:56 Medical Decision Making London Neri is a 71-year-old man with a history of hypertension, mechanical valve presenting to the emergency department for INR check. Patient reports that he was recently started on amiodarone for atrial fibrillation. Patient had complications of amiodarone, was admitted to [facility], reports that he had hemothorax, pulmonary side effects from amiodarone, and had persistently elevated INR secondary to amiodarone use. Patient reports that amiodarone was discontinued during his hospitalization. He states that he was discharged from [facility] on 03/16/2022. Patient reports that he was supposed to take his usual Coumadin dose after discharge, but was found to have elevated INR of 5 on 03/17/2022. His PCP had recommended that he stop Coumadin until yesterday, when he was supposed to start at half dosing of 5 mg nightly. Patient reports that he has not taken any Coumadin since 03/17, as he is concerned about elevated INRs. He reports that other than known blood loss from hemothorax, he has had no recent bleeding. He denies dark stools/melena. Patient reports that he has shortness of breath since taking the amiodarone, he reports that this is gradually improving somewhat. He reports that he has no acute symptoms today and is not here for any type evaluation, only wants to have blood work checked. Patient states that he has an appointment with his primary care doctor tomorrow. Given recent hospitalization with major medical issues, will check CBC and CMP in addition to INR. Patient declined further evaluation/treatment, states that he is simply here to check his INR as today is a holiday and he was unable to find any open outpatient setting to do an INR check. Exam/history at this time not consistent with acute emergent medical condition. Labs reviewed, INR 1.2, hemoglobin 10.7. I discussed results with patient. Patient states that he is unsure what his hemoglobin was during his recent hospitalization, but states that he was found to be anemic there secondary to his hemothorax. We discussed plan for Coumadin dosing, plan for 10 mg of Coumadin tonight (usual dose), with further dosing per his PCP tomorrow at his scheduled appointment. Patient verbalized understanding and is amenable to this plan. I had a discussion with Patient regarding return to emergency department precautions, home care, and importance of outpatient follow-up. Pt verbalizes understanding of the plan and is amenable. Patient discharged to home with clear plan for outpatient follow- up. All questions were answered. Disposition decision was made weighing the risks and benefits of hospitalization versus outpatient treatment, the risk for further decompensation, and the patient's wishes. Medical Records Medical records reviewed: Yes I reviewed the patient's medical records. Lab Data Lab results reviewed: Yes I reviewed the patient's lab results. Labs: Laboratory Tests Range/Units 03/21/22 03/21/22 03/21/22 08:05 08:05 08:05 WBC (4.4-10.8) 10^3/uL 7.52 RBC (4.36-5.78) 10^6/uL 3.70 L Hgb (13.5-17.5) g/dL 10.7 L Hct (40.0-50.0) % 33.5 L MCV (80-95) fL 91 MCH (27.0-33.0) pg 28.9 MCHC (32.0-36.0) % 31.9 L RDW (11.8-14.1) % 15.2 H Plt Count (130-400) 10^3/uL 376 MPV (8.0-11.0) fL 9.1 Immature Gran % 0.8 Neutrophils % 74.9 Lymphocytes % 13.0 Monocytes % 7.2 Eosinophils % 2.9 Basophils % 1.2 Nucleated RBC % (0.0-0.3) % 0.0 Absolute Neutrophils (1.2-6.7) 10^3/uL 5.63 Absolute Lymphocytes (1.2-3.4) 10^3/uL 0.98 L Absolute Monocytes (0.1-0.8) 10^3/uL 0.54 Absolute Eosinophils (0.0-0.7) 10^3/uL 0.22 Absolute Basophils (0.0-0.2) 10^3/uL 0.09 PT (9.3-11.0) sec 11.9 H INR (0.9-1.1) 1.2 H Sodium (136-145) mmol/L 141 Potassium (3.5-5.1) mmol/L 4.3 Chloride (98-107) mmol/L 105 Carbon Dioxide (21.0-32.0) mmol/L 26.0 Anion Gap (3-11) mmol/L 10.0 BUN (7-18) mg/dL 16 Creatinine (0.70-1.30) mg/dL 1.0 Estimated GFR/1.73 m2 (mL/min/1.73m2) >= 60.00 Glucose (74-106) mg/dL 94 Calcium (8.5-10.1) mg/dL 8.8 Total Bilirubin (0.2-1.0) mg/dL 0.8 AST (15-37) U/L 32 ALT (16-63) U/L 30 Alkaline Phosphatase (46-116) U/L 78 Total Protein (6.4-8.2) g/dL 7.7 Albumin (3.4-5.0) g/dL 3.8 HPI General Mode of arrival: ambulatory . Date/Time Provider Initiated Documentation: 03/21/22 07:31 . Limitations to Documentation: no limitations . Information obtained by: patient, RN notes reviewed and old records reviewed . HPI Narrative: London Neri is a 71-year-old man with a history of hypertension, mechanical valve presenting to the emergency department for INR check. Patient reports that he was recently started on amiodarone for atrial fibrillation. Patient had complications of amiodarone, was admitted to [facility], reports that he had hemothorax, pulmonary side effects from amiodarone, and had persistently elevated INR secondary to amiodarone use. Patient reports that amiodarone was discontinued during his hospitalization. He states that he was discharged from [facility] on 03/16/2022. Patient reports that he was supposed to take his usual Coumadin dose after discharge, but was found to have elevated INR of 5 on 03/17/2022. His PCP had recommended that he stop Coumadin until yesterday, when he was supposed to start at half dosing of 5 mg nightly. Patient reports that he has not taken any Coumadin since 03/17, as he is concerned about elevated INRs. He reports that other than known blood loss from hemothorax, he has had no recent bleeding. He denies dark stools/melena. Patient reports that he has shortness of breath since taking the amiodarone, he reports that this is gradually improving somewhat. He reports that he has no acute symptoms today and is not here for any type evaluation, only wants to have blood work checked. Patient states that he has an appointment with his primary care doctor tomorrow. Related Data Home Medications Medication Instructions Recorded Confirmed warfarin 10 mg tablet (Coumadin) 0 - 1 tab PO DIRECTED #90 tabs 03/30/18 03/21/22 betamethasone dipropionate 0.05 % 1 applic topical PRN PRN 04/14/21 03/21/22 topical cream tamsulosin 0.4 mg capsule 0.4 mg PO DAILY 12/11/21 03/21/22 Previous Rx's Medication Instructions Recorded warfarin 10 mg tablet (Coumadin) 0 - 1 tab PO DIRECTED #90 tabs 03/30/18 Allergies Allergy/AdvReac Type Severity Reaction Status Date / Time No Known Allergies Allergy Verified 03/21/22 07:37 General Stated Complaint: GenMedical YASMIN: 5 Review of Systems Narrative: Constitutional: denies fevers Eyes: denies eye pain ENT: denies ear pain, dental pain, sore throat Cardiovascular: denies chest pain Respiratory: denies cough, reports chronic improving shortness of breath GI: denies abdominal pain, vomiting, diarrhea, melena : denies flank pain MSK: denies back pain, neck pain, arthralgias, myalgias Skin: denies rash Neuro: denies headaches, numbness, weakness PFSH All Active Problems (Updated 03/21/22 @ 09:45 by Madelyn Marcano MD) Anticoagulation goal of INR 2 to 3 (Acute) Anemia (Chronic) Cardiac pacemaker in situ (Chronic) dual lead [employer] - PG replacement 07/31/2020 Heart valve replaced (Chronic 11/30/12) Aortic/Mitral mechanical Hypertension (Chronic) AV block, complete (Acute) Hematoma, postoperative (Acute) Tension pneumothorax, spontaneous (Acute) Lung blebs (Acute) Pneumothorax on left (Acute) Persistent air leak (Acute) Encounter for medication administration (Acute) Elevated INR (Acute) Hematuria (Acute) Multiple rib fractures involving four or more ribs (Acute) Traumatic hemo-pneumothorax (Acute) Blunt trauma (Acute) Multiple fractures of ribs of left side (Acute) Persistent atrial fibrillation (Acute) persistent since 03/09/2021 after VATS for spontaneous pneumo anticoag with coumadin for mechanical valves No RVR - hx CHB with pacemaker Right lower lobe pneumonia (Acute) Medical History Anticoagulated on warfarin AVR/MVR; goal 2.5-3.5 C. difficile colitis Clostridium difficile colitis (09/20/16) COVID-19 vaccine administered 12/15/20 01/19/21 Dizziness History of coagulation defect Mitral valve regurgitation replaced-1998 Multiple rib fractures Near syncope Primary malignant neoplasm of bladder Recurrent spontaneous pneumothorax 02/2021 pt. stated he had this permanently fixed where they affixed the lung to the chest wall so it would stop recurring Unilateral inguinal hernia Surgical History Appendectomy HERNIA REPAIR (~2007) History of aortic valve replacement [id number] with metal valve Pacemaker (~2009) Presence of other heart-valve replacement (11/30/12) Aortic/Mitral Tonsillectomy and adenoidectomy Family History Mother Personal history of malignant neoplasm LIVER Father Heart disease Sister No problems noted. Brother No problems noted. 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 [facility] Current gender identity: male Do you feel safe at home: Yes Do you feel safe in your relationship?: Yes Exam Narrative Exam Narrative: Constitutional: well and [id number], pleasant, conversing normally HENT: head atraumatic/normocephalic/normal inspection, mucous membranes moist Eyes: conjunctiva normal, sclera normal, pupils 3mm b/l Neck: no stridor, normal ROM, trachea midline Resp: normal work of breathing, speaking in full sentences Cardio: normal rate, normal rhythm Skin: warm, dry, normal color, no rash Neuro: alert, not altered, grossly non-focal, normal tone Ext: Moving all extremities equally Psych: normal mood, normal affect, normal behavior Course Vital Signs Vital signs: Vital Signs Temperature 36.8 C 03/21/22 07:31 Pulse 79 03/21/22 07:31 Respiratory Rate 16 03/21/22 07:31 Blood Pressure 125/63 03/21/22 07:31 Pulse Oximetry 97 03/21/22 07:31 Temperature 36.8 C 03/21/22 07:31 Temperature Source Temporal Artery Scan 03/21/22 07:31 Pulse 79 03/21/22 07:31 Respiratory Rate 18 03/21/22 08:13 Respiratory Effort Non-Labored 03/21/22 08:13 Respiratory Depth Normal 03/21/22 08:13 Respiratory Pattern Normal 03/21/22 08:13 Blood Pressure 125/63 03/21/22 07:31 Blood Pressure Position Sitting 03/21/22 07:31 Pulse Oximetry 97 03/21/22 07:31 Oxygen Delivery Method Room Air 03/21/22 07:31 Oxygen Flow Rate 0 03/21/22 07:31 Pain Level 0 03/21/22 07:31 Lab/Test Results Lab/Test Results: Laboratory Tests Range/Units 03/21/22 03/21/22 03/21/22 08:05 08:05 08:05 WBC (4.4-10.8) 10^3/uL 7.52 RBC (4.36-5.78) 10^6/uL 3.70 L Hgb (13.5-17.5) g/dL 10.7 L Hct (40.0-50.0) % 33.5 L MCV (80-95) fL 91 MCH (27.0-33.0) pg 28.9 MCHC (32.0-36.0) % 31.9 L RDW (11.8-14.1) % 15.2 H Plt Count (130-400) 10^3/uL 376 MPV (8.0-11.0) fL 9.1 Immature Gran % 0.8 Neutrophils % 74.9 Lymphocytes % 13.0 Monocytes % 7.2 Eosinophils % 2.9 Basophils % 1.2 Nucleated RBC % (0.0-0.3) % 0.0 Absolute Neutrophils (1.2-6.7) 10^3/uL 5.63 Absolute Lymphocytes (1.2-3.4) 10^3/uL 0.98 L Absolute Monocytes (0.1-0.8) 10^3/uL 0.54 Absolute Eosinophils (0.0-0.7) 10^3/uL 0.22 Absolute Basophils (0.0-0.2) 10^3/uL 0.09 PT (9.3-11.0) sec 11.9 H INR (0.9-1.1) 1.2 H Sodium (136-145) mmol/L 141 Potassium (3.5-5.1) mmol/L 4.3 Chloride (98-107) mmol/L 105 Carbon Dioxide (21.0-32.0) mmol/L 26.0 Anion Gap (3-11) mmol/L 10.0 BUN (7-18) mg/dL 16 Creatinine (0.70-1.30) mg/dL 1.0 Estimated GFR/1.73 m2 (mL/min/1.73m2) >= 60.00 Glucose (74-106) mg/dL 94 Calcium (8.5-10.1) mg/dL 8.8 Total Bilirubin (0.2-1.0) mg/dL 0.8 AST (15-37) U/L 32 ALT (16-63) U/L 30 Alkaline Phosphatase (46-116) U/L 78 Total Protein (6.4-8.2) g/dL 7.7 Albumin (3.4-5.0) g/dL 3.8
== END 2022-03-21 09:56 | disposition home or self-care (01) ==
PROVIDERS: Emergency Provider Student in an Organized Health Care Education/Training Program; PCP Family Medicine
DX: D64.9 Anemia, unspecified (principal); Z95.2 Presence of prosthetic heart valve; I48.91 Unspecified atrial fibrillation; Z79.01 Long term (current) use of anticoagulants
CPT/HCPCS: 80053; 99282; 85025; 85610

== ENCOUNTER 2022-04-22 16:15 | Outpatient (CLI) | payer MEDICARE, BC, SELFPAY ==
[2022-04-22 14:24] LABS: INR 2.9 (0.9-1.1)
== END 2022-04-22 16:16 | disposition home or self-care (01) ==
LOC: LBO 16:18
PROVIDERS: PCP Family Medicine; Visit Provider Family Medicine
DX: I48.11 Longstanding persistent atrial fibrillation (principal); Z79.01 Long term (current) use of anticoagulants
CPT/HCPCS: 36415; 85610

== ENCOUNTER 2022-10-25 10:32 | Outpatient (CLI) | payer MEDICARE, BC, SELFPAY ==
[2022-10-25 10:37] LABS: INR 3.6 (0.9-1.1); Prothrombin Time 33.4 sec (9.3-11.0)
== END 2022-10-25 10:33 | disposition home or self-care (01) ==
LOC: LBO 10:34
PROVIDERS: PCP Family Medicine; Visit Provider Family Medicine
DX: I48.91 Unspecified atrial fibrillation (principal)
CPT/HCPCS: 36415; 85610

== ENCOUNTER 2023-01-18 13:21 | Outpatient (CLI) | payer MEDICARE, BC, SELFPAY ==
[2023-01-18 13:42] LABS: INR 2.6 (0.9-1.1); Prothrombin Time 26.1 sec (9.3-11.0)
[2023-01-18 14:23] LABS: Calculated LDL 129 mg/dL (<100); Cholesterol 211 mg/dL (<200); HDL Cholesterol 69 mg/dL (40-60); Triglyceride 68 mg/dL (<150)
== END 2023-01-18 13:22 | disposition home or self-care (01) ==
LOC: LBO 13:22
PROVIDERS: PCP Family Medicine; Visit Provider Family Medicine
DX: I10 Essential (primary) hypertension (principal); I48.91 Unspecified atrial fibrillation; Z79.01 Long term (current) use of anticoagulants
CPT/HCPCS: 36415; 80061; 85610

== ENCOUNTER 2023-02-07 09:27 | Outpatient (CLI) | payer MEDICARE, BC, SELFPAY ==
--- NOTE | 2023-02-07 08:45 | DI.RAD_ITS ---
Exam(s) XR SHOULDER LT COMPLETE 2+V EXAM: XR SHOULDER LT COMPLETE 2+V CLINICAL HISTORY: left shoulder pain. TECHNIQUE: 2D digital imaging was performed of the left shoulder. Two images were obtained. AP and Y views were obtained. COMPARISON: CR,XR XR CHEST 2V PA LATERAL from 02/21/2022 FINDINGS: BONES: No acute fracture is present. Old left rib fractures are again noted. No bony destructive le sussy is seen. JOINTS: No dislocation present. There is narrowing of the glenohumeral joint. The acromioclavicular joint is well maintained. SOFT TISSUE: There is a left-sided dual lead pacer again in place. Sternal wires are present. IMPRESSION: Mild narrowing of the glenohumeral joint. DATA REPOSITORY: RADIATION DOSE DELIVERED:
== END 2023-02-07 09:28 | disposition home or self-care (01) ==
LOC: DIORS 09:28
PROVIDERS: PCP Family Medicine; Referring Provider Family Medicine; Visit Provider Student in an Organized Health Care Education/Training Program
DX: M12.812 Other specific arthropathies, not elsewhere classified, left shoulder; Z95.0 Presence of cardiac pacemaker; M75.102 Unspecified rotator cuff tear or rupture of left shoulder, not specified as traumatic
CPT/HCPCS: 20610; 99203; 99213; 73030; J1030

== ENCOUNTER 2023-03-09 09:46 | Outpatient (CLI) | payer MEDICARE, BC, SELFPAY ==
[2023-03-09 08:23] LABS: INR 3.6 (0.9-1.1); Prothrombin Time 36.6 sec (9.3-11.0)
[2023-03-09 08:54] LABS: Calculated LDL 154 mg/dL (<100); Cholesterol 251 mg/dL (<200); HDL Cholesterol 73 mg/dL (40-60); Triglyceride 121 mg/dL (<150)
== END 2023-03-09 09:47 | disposition home or self-care (01) ==
LOC: LBO 09:47
PROVIDERS: PCP Family Medicine; Visit Provider Family Medicine
DX: I48.0 Paroxysmal atrial fibrillation (principal); R06.09 Other forms of dyspnea; I10 Essential (primary) hypertension; Z79.01 Long term (current) use of anticoagulants
CPT/HCPCS: 36415; 80061; 85610

== ENCOUNTER → 2023-03-28 08:52 | Outpatient (BNVA) | payer MEDICARE, BC, SELFPAY | PROVIDERS: PCP Family Medicine; Referring Provider Family Medicine; Visit Provider Student in an Organized Health Care Education/Training Program | DX: M75.102 Unspecified rotator cuff tear or rupture of left shoulder, not specified as traumatic (principal); M12.812 Other specific arthropathies, not elsewhere classified, left shoulder | CPT/HCPCS: 99213 ==

== ENCOUNTER 2023-05-31 09:58 | Outpatient (CLI) | payer MEDICARE, BC, SELFPAY ==
[2023-05-31 10:25] LABS: Calculated LDL 178 mg/dL (<100); Cholesterol 266 mg/dL (<200); HDL Cholesterol 75 mg/dL (40-60); Triglyceride 69 mg/dL (<150)
== END 2023-05-31 09:59 | disposition home or self-care (01) ==
LOC: LBO 09:58
PROVIDERS: PCP Family Medicine; Visit Provider Internal Medicine
DX: E78.00 Pure hypercholesterolemia, unspecified (principal)
CPT/HCPCS: 36415; 80061

== ENCOUNTER 2024-02-05 13:13 | Outpatient (CLI) | payer MEDICARE, BC, SELFPAY ==
[2024-02-05 17:05] LABS: INR 2.7 (0.9-1.1); Prothrombin Time 24.5 sec (9.1-11.1)
== END 2024-02-05 13:14 | disposition home or self-care (01) ==
LOC: LBO 13:15
PROVIDERS: PCP Family Medicine; Visit Provider Family Medicine
DX: I48.91 Unspecified atrial fibrillation (principal)
CPT/HCPCS: 36415; 85610

== ENCOUNTER 2024-02-22 15:12 | Outpatient (CLI) | payer MEDICARE, BC, SELFPAY ==
[2024-02-22 15:39] LABS: Abs Immature Grans 0.03 10^3/uL (0.0-0.06); Absolute Basophil Count 0.07 10^3/uL (0.0-0.2); Absolute Eosinophil Count 0.15 10^3/uL (0.0-0.7); Absolute Lymphocyte Count 1.07 10^3/uL (1.2-3.4); Absolute Neutrophil Count 4.28 10^3/uL (1.2-6.7); Basophils % 1.1 %; Eosinophils % 2.5 %; HCT 39.9 % (40.0-50.0); Immature Grans % 0.5 %; Lymphocytes % 17.5 %; MCH 29.1 pg (27.0-33.0); MCHC 32.6 % (32.0-36.0); MCV 90 fL (80-95); MPV 10.3 fL (8.0-11.0); Monocytes % 8.2 %; Neutrophils % 70.2 %; Platelet Count 190 10^3/uL (130-400); RBC 4.46 10^6/uL (4.36-5.78); RDW 13.8 % (11.8-14.1); RDW-SD 45.2 fL
[2024-02-22 16:19] LABS: ALT 30 U/L (16-63); AST 32 U/L (15-37); Albumin 4.1 g/dL (3.4-5.0); Alkaline Phosphatase 54 U/L (46-116); Anion Gap 7.8 mmol/L (3-11); BUN 22 mg/dL (7-18); Bilirubin, Total 0.6 mg/dL (0.2-1.0); CO2 30.2 mmol/L (21.0-32.0); CREATININE 1.1 mg/dL (0.70-1.30); Calcium 8.9 mg/dL (8.5-10.1); Chloride 103 mmol/L (98-107); Estimated GFR 70.44 (mL/min/1.73m2); Glucose 88 mg/dL (74-106); Potassium 4.8 mmol/L (3.5-5.1); Sodium 141 mmol/L (136-145); Total Protein 7.2 g/dL (6.4-8.2)
[2024-02-22 17:12] LABS: Calculated LDL 87 mg/dL (<100); Cholesterol 184 mg/dL (<200); HDL Cholesterol 70 mg/dL (40-60); Triglyceride 138 mg/dL (<150)
[2024-02-23 09:44] LABS: IgA 203 mg/dL (85-499); IgG 901 mg/dL (610-1616); IgM 99 mg/dL (35-242)
[2024-02-23 18:10] LABS: Immunoglobulin Subclass IgG4 30.2 mg/dL
[2024-02-26 12:14] LABS: TB Interpretation Negative (Negative); TB2 Ag minus Nil 0.01 IU/mL
== END 2024-02-22 15:13 | disposition home or self-care (01) ==
LOC: LBO 15:13
PROVIDERS: PCP Family Medicine; Visit Provider Internal Medicine
DX: E78.00 Pure hypercholesterolemia, unspecified (principal)
CPT/HCPCS: 36415; 80053; 80061; 82784; 82787; 85025; 86480

== ENCOUNTER 2024-02-23 15:23 | Outpatient (REF) | payer MEDICARE, BC, SELFPAY ==
[2024-04-02 11:56] LABS: Fungal Culture & Smear See Comments
[2024-04-17 09:22] LABS: AFB Culture Result See Comments
== END 2024-02-23 15:24 | disposition home or self-care (01) ==
LOC: LBN 15:23
PROVIDERS: PCP Family Medicine
DX: J18.9 Pneumonia, unspecified organism (principal)
CPT/HCPCS: 87102; 87107; 87116; 87206; 87070; 87205

== ENCOUNTER 2024-03-19 13:15 | Outpatient (REF) | payer MEDICARE, BC, SELFPAY ==
[2024-03-19 21:15] LABS: HCT 37.1 % (40.0-50.0); HGB 12.1 g/dL (13.5-17.5); MCH 29.3 pg (27.0-33.0); MCHC 32.6 % (32.0-36.0); MCV 90 fL (80-95); MPV 11.4 fL (8.0-11.0); Platelet Count 170 10^3/uL (130-400); RBC 4.13 10^6/uL (4.36-5.78); RDW 14.4 % (11.8-14.1); RDW-SD 47.3 fL; WBC 5.34 10^3/uL (4.4-10.8)
[2024-03-19 21:48] LABS: ALT 31 U/L (16-63); AST 32 U/L (15-37); Alkaline Phosphatase 45 U/L (46-116); Anion Gap 3.8 mmol/L (3-11); BUN 21 mg/dL (7-18); Bilirubin, Total 0.6 mg/dL (0.2-1.0); CO2 29.2 mmol/L (21.0-32.0); CREATININE 0.8 mg/dL (0.70-1.30); Calcium 9.6 mg/dL (8.5-10.1); Chloride 106 mmol/L (98-107); Estimated GFR 92.87 (mL/min/1.73m2); Glucose 97 mg/dL (74-106); Potassium 4.4 mmol/L (3.5-5.1); Sodium 139 mmol/L (136-145); Total Protein 6.7 g/dL (6.4-8.2)
[2024-03-21 10:06] LABS: Lyme Ab w Rflx to Lyme Confirm Negative (Negative)
[2024-03-23 20:16] LABS: Anaplasma phagocytophilum Negative (Negative); B. miyamotoi PCR Negative (Negative); Babesia divergens/MO-1 Negative (Negative); Babesia duncani Negative (Negative); Babesia microti Negative (Negative); Ehrlichia chaffeensis Negative (Negative); Ehrlichia ewingii/canis Negative (Negative); Ehrlichia muris eauclairensis Negative (Negative)
== END 2024-03-19 13:16 | disposition home or self-care (01) ==
LOC: NCHCN 13:15
PROVIDERS: PCP Family Medicine; Visit Provider Family Medicine
DX: T14.8XXA Other injury of unspecified body region, initial encounter (principal); W57.XXXA Bitten or stung by nonvenomous insect and other nonvenomous arthropods, initial encounter
CPT/HCPCS: 80053; 85027; 87798; 86618

== ENCOUNTER 2024-07-13 09:54 | Emergency (ER) | payer MEDICARE, BC, SELFPAY ==
[2024-07-13 10:00] VITALS: BP 139/65; PULSE 76; RESP 16; TEMP 36.3; O2SAT 96
--- NOTE | 2024-07-13 10:26 | ED.GENADUL_ITS ---
Discharge Plan Disposition Patient Disposition: Home Condition: Stable Discharge Details Clinical Impression: Anxiety Primary Care Provider: Linda Mccray ED Provider: Cholo Reinoso Home Meds and New Rx's Prescriptions: Continued warfarin [Coumadin] 10 MG tablet 0 - 1 tab PO DIRECTED Qty: 90 4RF Rx Instructions: DOSE BASED ON INR betamethasone dipropionate 0.05 % cream 1 applic topical PRN PRN sildenafil 100 mg tablet 100 mg PO DAILY PRN Rx Instructions: administer 30 minutes to 4 hours before activity tamsulosin 0.4 mg capsule 0.4 mg PO DAILY Patient Comments: TAKE 1 CAPSULE BY MOUTH DAILY Discharge Instructions Instructions: Hydroxyzine, Trazodone, Anxiety, Adult ED Additional Instructions: You were seen in the emergency department for your difficulty speaking and anxiety over the past couple weeks you have no physical complaints and he denies any danger to yourself or others. I have provided you with a to go pack of hydroxyzine which is mild antianxiety medication you can take as needed during the day, I have also sent you home with a to go pack of 3 tablets of trazodone, take this medicine before bed with food about 30 minutes prior to getting into bed. If this medicine works I think you should talk to your primary care provider about this at [facility], I've had the administrative staff here at the ER reach out so that you can get short-term follow-up arranged. I have also asked that they reach out to [facility] who can present to some options for possible counseling or therapy in the area. Referrals: [facility] [Provider Group] Linda Mccray [Primary Care Provider] - Discharge Data Discharge Date/Time-TO BE ENTERED AT DEPARTURE: 07/13/24 10:49 HPI General Date/Time Provider Initiated Documentation: 07/13/24 10:26 . HPI Narrative: 74 year-old male presents to ED today by POV/ambulating with a chief complaint of anxiety, states he is having trouble sleeping with onset over the past 2 weeks. Patient has not been acting himself per friends, having panic attacks. 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 Patient is ruminating negatively. Quality described as generalized anxiety/panic, no radiation to suicidal ideation, homicidal ideation, hallucinations, but does state his anhedonia is making it difficult to take care of himself. Severity is described as severe. Palliating factors include has talked informally with a therapist friend who lives in [facility]. Provoking factors include nothing specific. Patient is anticoagulated on warfarin. Related Data Home Medications ?Medication ?Instructions ?Recorded ?Confirmed warfarin 10 mg tablet (Coumadin) 0 - 1 tab PO DIRECTED #90 tabs 03/30/18 07/13/24 betamethasone dipropionate 0.05 % 1 applic topical PRN PRN 04/14/21 07/13/24 topical cream tamsulosin 0.4 mg capsule 0.4 mg PO DAILY 12/11/21 07/13/24 sildenafil 100 mg tablet 100 mg PO DAILY PRN 01/17/23 07/13/24 Previous Rx's ?Medication ?Instructions ?Recorded warfarin 10 mg tablet (Coumadin) 0 - 1 tab PO DIRECTED #90 tabs 03/30/18 Allergies Allergy/AdvReac Type Severity Reaction Status Date / Time amiodarone Allergy Unknown Verified 07/13/24 10:26 General Stated Complaint: Anxiety YASMIN: 3 Review of Systems All systems reviewed & are unremarkable except as noted in HPI and below Exam Narrative Exam Narrative: GENERAL APPEARANCE: Well-nourished, non-toxic, awake and alert, atraumatic, no acute distress. SKIN: Warm, pink, dry, intact, without rashes/lesions/ulcerations. HEAD: Normocephalic, atraumatic, normal hair distribution for gender/age. EYES: Normal conjunctiva, no exudates on lids/lashes. ENT: Nares patent, no circumoral cyanosis, no facial swelling NECK: Supple, trachea midline, painless cervical ROM. LUNGS/CHEST: Non-labored respirations, normal A/P diameter, symmetrical expansion, no chest wall deformity HEART (CV/PV): No peripheral edema, no JVD. ABDOMEN: Soft, non-distended, no guarding. MSK: Normal ROM, no swelling/deformity to bilateral UEs or LEs, moving all extremities without weakness, no cyanosis, spine midline without tenderness, normal curvature. NEURO: Mental Status AAOx4 - alert to person, place, time, events No facial droop, no forehead involvement. Motor: No focal weakness - strength 5/5 in bilateral UEs and LEs, proximal and distal, symmetric. Sensory: sensation intact to light touch globally. Gait normal: patient ambulated without ataxia into ED room. PSYCH: dysthymic, cooperative, pleasant, appropriate speech, non-psychotic, flat affect, non-suicidal Course Vital Signs Vital signs: Vital Signs Temperature 36.3 C L 07/13/24 10:00 Pulse 76 07/13/24 10:00 Respiratory Rate 16 07/13/24 10:00 Blood Pressure 139/65 07/13/24 10:00 Pulse Oximetry 96 07/13/24 10:00 Temperature 36.3 C L 07/13/24 10:00 Pulse 76 07/13/24 10:00 Respiratory Rate 16 07/13/24 10:00 Respiratory Effort Normal 07/13/24 10:25 Blood Pressure 139/65 07/13/24 10:00 Pulse Oximetry 96 07/13/24 10:00 Pain Level 0 07/13/24 10:00 Medical Decision Making This dictation utilizes [id number] dictation software and may contain unedited grammatical errors. 74 year-old male presents to ED today by POV/ambulating with a chief complaint of anxiety, states he is having trouble sleeping with onset over the past 2 weeks. Patient has not been acting himself per friends, having panic attacks. 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 Patient is ruminating negatively. Quality described as generalized anxiety/panic, no radiation to suicidal ideation, homicidal ideation, hallucinations, but does state his anhedonia is making it difficult to take care of himself. Severity is described as severe. Palliating factors include has talked informally with a therapist friend who lives in [place]. Provoking factors include nothing specific. Patients' medical history: Dizziness, bladder cancer, history of coagulation defect, has pacemaker, artificial heart valve, atrial fibrillation. Family and social history: Lives independently, enjoys playing bridge, has supportive friends. Pertinent exam findings / vital signs include no physical complaints, benign cardiopulmonary status, denies SI/HI. Differential / pathologies of concern include depression, anxiety. Diagnostic studies of: -none. Interventions of: -referred to [facility] non-emergent f/u list, given trial doses of hydroxyzine for daytime anxiolysis, trazodone trial for 3 nights QHS. ED Course/Assessment/Plan: 74-year-old male presents with anxiety and panic attack and anhedonia that is interfering with his sleep, he does not take any psychiatric medications at this time as well as hot counseling or therapy, the source of this is social in nature due to his inability to participate in worldwide competitive bridge playing and feeling he is letting his health competitors down and failing to organize events effectively. He presents with his friend who is supportive and we discussed a short trial of hydroxyzine at for anxiety during the day and a trial of trazodone at night for him to follow-up with his primary care provider on Monday with possible long-term medications versus referrals to therapy. He was nonsuicidal had had no physical complaints, strict return criteria for any danger to self or others. I did advise him on increased fall risk with trazodone especially returning for any falls due to his anticoagulation warfarin. Findings not consistent with suicidal ideation, homicidal ideation, hallucination/psychosis. Disposition of Anxiety. Patient verbalized understanding of the plan and return to ED criteria and engaged in shared decision making. Medical Records Medical records reviewed: Yes I reviewed the patient's medical records. Quality:[facility] Health Related Social Needs: No Data to Display PFS All Active Problems (Updated 07/13/24 @ 10:31 by WASHINGTON Perkins) Anxiety (Chronic) Left rotator cuff tear arthropathy (Acute) subacromial corticosteroid injection 02/07/23 Cardiac pacemaker in situ (Chronic) dual lead Medtronic - PG replacement 07/31/2020 Heart valve replaced (Chronic 11/30/12) Aortic/Mitral mechanical Hypertension (Chronic) AV block, complete (Acute) Hematoma, postoperative (Acute) Tension pneumothorax, spontaneous (Acute) Lung blebs (Acute) Pneumothorax on left (Acute) Persistent air leak (Acute) Encounter for medication administration (Acute) Elevated INR (Acute) Hematuria (Acute) Multiple rib fractures involving four or more ribs (Acute) Traumatic hemo-pneumothorax (Acute) Blunt trauma (Acute) Multiple fractures of ribs of left side (Acute) Persistent atrial fibrillation (Acute) persistent since 03/09/2021 after VATS for spontaneous pneumo anticoag with coumadin for mechanical valves No RVR - hx CHB with pacemaker Medical History Anticoagulated on warfarin AVR/MVR; goal 2.5-3.5 C. difficile colitis Clostridium difficile colitis (09/20/16) COVID-19 vaccine administered 12/15/20 01/19/21 Dizziness History of coagulation defect Mitral valve regurgitation replaced-1998 Multiple rib fractures Near syncope Primary malignant neoplasm of bladder Recurrent spontaneous pneumothorax 02/2021 pt. stated he had this permanently fixed where they affixed the lung to the chest wall so it would stop recurring Unilateral inguinal hernia Surgical History Appendectomy HERNIA REPAIR (~2007) History of aortic valve replacement [id number] 1998 with metal valve Pacemaker (~2009) Presence of other heart-valve replacement (11/30/12) Aortic/Mitral Tonsillectomy and adenoidectomy Family History Mother Personal history of malignant neoplasm LIVER Father Heart disease Sister No problems noted. Brother No problems noted. 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
[2024-07-13 10:33] VITALS: RESP 16
[2024-07-13] MEDS: hydrOXYzine PAMOATE 25 MG CAP 100 MG PO (10:48)
[2024-07-13] MEDS: traZODone 50 MG TAB 150 MG PO (10:48)
== END 2024-07-13 10:49 | disposition home or self-care (01) ==
LOC: ER 10:37
PROVIDERS: Emergency Provider Physician Assistant; PCP Family Medicine
DX: F41.9 Anxiety disorder, unspecified (principal)
CPT/HCPCS: 99283

== ENCOUNTER 2024-07-17 21:26 | Emergency (ER) | payer MEDICARE, BC, SELFPAY ==
[2024-07-17] VITALS (13 sets, daily range): BP systolic 141–196; BP diastolic 60–86; PULSE 59–96; RESP 14–24; TEMP 36.4; O2SAT 97–98
--- NOTE | 2024-07-17 21:15 | RT.EKG_ITS ---
APPROVED REPORT Exam: Resting ECG Reason for Exam: chest pain Patient Location: E HR:88 bpm ECG Measurements Heart Rate 88 AXIS AL 216 P 66 QRSd 164 QRS 269 QT 436 T 81 QTc 527 Conclusion Sinus rhythm 88 no chnage from prior
--- OUTSIDE RECORDS SUMMARY | 2024-07-17 21:44 | XMS_ITS | Patient Health Record ---
Author Organization [facility] Billing Info Address [address] [place], [place] [id number] Care Team Providers Care Electric Distribution Checker Name Role Phone NASIM VYAS Unavailable [phone] Reason For Referral No Information Medications Medication SIG (Take, Route, Frequency, Duration) Notes Start Date End Date Status Warfarin Sodium 10 MG 1 tablet Oral Once a day Active Aspirin Adult Low Dose 81 MG 1 tablet Orally Once a day for 30 day(s) Active Problems Problem Type SNOMED Code ICD Code Onset Dates Problem Status W/U Status Risk Notes Problem 670906 Valvular heart disease (I38) Active confirmed Problem 6241833054040 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 Problem 8585047913698 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 Problem 086401064 Anticoagulation monitoring, INR range 2.5-3.5 (Z79.01) Active confirmed Plan Of Treatment Pending Test Test Name Order Date EKG-COMPLETE (72264) IH 11/08/2019 Insurance Providers Payer Name Payer Address Payer Phone Subscriber Number Group Number Insured Name Patient Relationship to Insured Coverage Start Date Coverage End Date MEDICARE [place] PART B [address] [facility] [place], [place] [id number] [phone] [id number] [place] Self - patient is the insured 0 Medical (General) History Surgical History Surgery Date(Month/Year) Valve replacement X Aortic and Mitral Pacemaker Implant Medtronic Hospitalization History Reason Date(Month/Year) INR testing / [facility] 10/2019
--- NOTE | 2024-07-17 21:45 | DI.RAD_ITS ---
Exam(s) XR PORTABLE CHEST AP EXAM: XR PORTABLE CHEST AP CLINICAL HISTORY: chest pain. TECHNIQUE: 2D digital imaging was performed. COMPARISON: CR,XR XR CHEST 2V PA LATERAL from 02/21/2022 FINDINGS: Single AP portable view. Again noted is a bipolar left subclavian pacemaker and both prosthetic aortic and mitral valves. Juan C rnotomy wires Heart size is upper normal. The mediastinum is not widened. Lungs are clear. No infiltrates nor obvious pleural effusions. No pulmonary edema. Multiple healed right-sided rib fractures are again noted. No acute fractures evident. IMPRESSION: No acute pulmonary findings. Cardiac pacemaker. Prosthetic heart valves. Normal heart size. No CHF. DATA REPOSITORY: RADIATION DOSE DELIVERED:
--- OUTSIDE RECORDS SUMMARY | 2024-07-17 21:45 | XMS_ITS | Continuity of Care Document ---
Author Organization [place] - [facility] Address [address] [place] [address] Assessment Encounter Date Assessment Date Assessment LastModified by Organization Details LastModified Time 05/06/2024 05/06/2024 The total time devoted to today's encounter, including both the zjgm-ob-[id number] time with the patient and/or family/caregi abhay and rnd-uazx-ht-f melissa time I personally spent is 33 minutes. lbisson Not available 05/06/2024 09:12:58 Plan of Treatment Reminders Order Date Submit Date Provider Last Modified By Organization Details Last Modified Time Details Appointments Office Visit 20 2023 09:40A M Not available Not available Not available Counselin g 60 2023 10:50A M Not available Not available Not available Office Visit 2023 10:20A M Not available Not available Not available Office Visit 20 2023 11:30A M Not available Not available Not available Office Visit 2024 08:00A M Not available Not available Not available Lab None recorded. Referral sleep medicine referral 2023 024 DIAZ [facility], [address] [place] [address] [address], [place], [address], 07/10/2024 14:43:00 Procedures None recorded. Surgeries None recorded. Imaging None recorded. Medication Orders clotrimaz ole 1 % topical cream 2023 024 DIAZ [id number], [address] [place] [address], [id number], 05/06/2024 12:30:07 Patient TargetsNo targets recorded. Patient InstructionsNo instructions recorded. Reason for Referral Sleep Medicine Referral for Insomnia Referring Physician: Linda [facility]cc[facility], Encounter Date: 05/06/2024 Behavioral Psychotherapy Ref erral for Anxiety disorder Referring Physician: Linda Mccray [facility], Encounter Date: 07/17/2024 Results Created Date Observation Date Name Description Value Unit Range Abnormal Flag Note LastModifiedBy Organization Detail LastModifiedTime 07/07/20 24 02/21/2022 imagi ng/di agnos tic resul t No observ ation record ed. Not Available 07/07 21:46:47 07/07/20 24 12/11/2021 imagi ng/di agnos tic resul t No observ ation record ed. Not Available 07/07 21:46:48 07/07/20 24 11/28/2020 imagi ng/di agnos tic resul t No observ ation record ed. Not Available 07/07 21:47:20 07/07/20 24 11/29/2020 imagi ng/di agnos tic resul t No observ ation record ed. Not Available 07/07 21:47:21 07/07/20 24 11/29/2020 imagi ng/di agnos tic resul t No observ ation record ed. Not Available 07/07 21:47:22 07/07/20 24 11/29/2020 imagi ng/di agnos tic resul t No observ ation record ed. Not Available 07/07 21:47:23 07/07/20 24 11/29/2020 imagi ng/di agnos tic resul t No observ ation record ed. Not Available 07/07 21:47:24 07/07/20 24 12/02/2020 imagi ng/di agnos tic resul t No observ ation record ed. Not Available 07/07 21:47:25 07/07/20 24 03/03/2021 imagi ng/di agnos tic resul t No observ ation record ed. Not Available 07/07 21:47:26 07/07/20 24 03/05/2021 imagi ng/di agnos tic resul t No observ ation record ed. Not Available 07/07 21:47:27 07/07/20 24 03/12/2022 CT, chest No observ ation record ed. Not Available 07/07 21:47:38 07/07/20 24 03/11/2022 XR, chest No observ ation record ed. Not Available 07/07 21:47:40 07/07/20 24 12/12/2021 imagi ng/di agnos tic resul t No observ ation record ed. Not Available 07/07 21:47:41 07/07/20 24 09/11/2019 imagi ng/di agnos tic resul t No observ ation record ed. Not Available 07/07 21:47:48 07/07/20 24 01/06/2022 imagi ng/di agnos tic resul t No observ ation record ed. Not Available 07/07 21:48:54 07/07/20 24 01/21/2022 imagi ng/di agnos tic resul t No observ ation record ed. Not Available 07/07 21:48:57 07/07/20 24 03/03/2022 imagi ng/di agnos tic resul t No observ ation record ed. Not Available 07/07 21:49:21 07/07/20 24 02/21/2022 imagi ng/di agnos tic resul t No observ ation record ed. Not Available 07/07 21:49:24 07/07/20 24 02/18/2022 imagi ng/di agnos tic resul t No observ ation record ed. Not Available 07/07 21:49:31 07/07/20 24 02/18/2022 imagi ng/di agnos tic resul t No observ ation record ed. Not Available 07/07 21:49:31 07/07/20 24 02/18/2022 imagi ng/di agnos tic resul t No observ ation record ed. Not Available 07/07 21:49:33 07/07/20 24 11/26/2020 imagi ng/di agnos tic resul t No observ ation record ed. Not Available 07/07 21:49:42 07/07/20 24 07/13/2020 imagi ng/di agnos tic resul t No observ ation record ed. Not Available 07/07 21:50:06 07/07/20 24 07/29/2020 imagi ng/di agnos tic resul t No observ ation record ed. Not Available 07/07 21:50:08 07/07/20 24 03/03/2021 imagi ng/di agnos tic resul t No observ ation record ed. Not Available 07/07 21:50:29 07/07/20 24 03/03/2021 imagi ng/di agnos tic resul t No observ ation record ed. Not Available 07/07 21:51:58 07/07/20 24 03/04/2021 imagi ng/di agnos tic resul t No observ ation record ed. Not Available 07/07 21:51:59 07/07/20 24 03/04/2021 imagi ng/di agnos tic resul t No observ ation record ed. Not Available 07/07 21:51:59 07/07/20 24 03/05/2021 imagi ng/di agnos tic resul t No observ ation record ed. Not Available 07/07 21:52:00 07/07/20 24 11/30/2020 imagi ng/di agnos tic resul t No observ ation record ed. Not Available 07/07 21:52:01 07/07/20 24 11/30/2020 imagi ng/di agnos tic resul t No observ ation record ed. Not Available 07/07 21:52:02 07/07/20 24 11/30/2020 imagi ng/di agnos tic resul t No observ ation record ed. Not Available 07/07 21:52:03 07/07/20 24 11/30/2020 imagi ng/di agnos tic resul t No observ ation record ed. Not Available 07/07 21:52:04 07/07/20 24 12/01/2020 imagi ng/di agnos tic resul t No observ ation record ed. Not Available 07/07 21:52:04 07/07/20 24 12/02/2020 imagi ng/di agnos tic resul t No observ ation record ed. Not Available 07/07 21:52:05 07/07/20 24 12/02/2020 imagi ng/di agnos tic resul t No observ ation record ed. Not Available 07/07 21:52:06 07/07/20 24 11/26/2020 imagi ng/di agnos tic resul t No observ ation record ed. Not Available 07/07 21:52:07 07/07/20 24 11/26/2020 imagi ng/di agnos tic resul t No observ ation record ed. Not Available 07/07 21:52:08 07/07/20 24 11/27/2020 imagi ng/di agnos tic resul t No observ ation record ed. Not Available 07/07 21:52:09 07/07/20 24 11/27/2020 imagi ng/di agnos tic resul t No observ ation record ed. Not Available 07/07 21:52:10 07/07/20 24 11/29/2020 imagi ng/di agnos tic resul t No observ ation record ed. Not Available 07/07 21:52:11 07/07/20 24 11/29/2020 imagi ng/di agnos tic resul t No observ ation record ed. Not Available 07/07 21:52:12 07/07/20 24 02/22/2022 imagi ng/di agnos tic resul t No observ ation record ed. Not Available 07/07 21:52:12 07/07/20 24 12/11/2021 imagi ng/di agnos tic resul t No observ ation record ed. Not Available 07/07 21:52:13 07/07/20 24 02/07/2023 imagi ng/di agnos tic resul t No observ ation record ed. Not Available 07/07 21:52:15 07/07/20 24 11/22/2020 imagi ng/di agnos tic resul t No observ ation record ed. Not Available 07/07 21:52:43 07/07/20 24 12/13/2021 imagi ng/di agnos tic resul t No observ ation record ed. Not Available 07/07 21:52:49 07/07/20 24 11/22/2020 imagi ng/di agnos tic resul t No observ ation record ed. Not Available 07/07 21:52:51 07/07/20 24 02/22/2021 imagi ng/di agnos tic resul t No observ ation record ed. Not Available 07/07 21:52:52 07/07/20 24 05/29/2020 imagi ng/di agnos tic resul t No observ ation record ed. Not Available 07/07 21:53:18 07/07/20 24 08/10/2020 imagi ng/di agnos tic resul t No observ ation record ed. Not Available 07/07 21:53:20 07/07/20 24 08/10/2020 imagi ng/di agnos tic resul t No observ ation record ed. Not Available 07/07 21:53:23 07/07/20 24 01/17/2020 imagi ng/di agnos tic resul t No observ ation record ed. Not Available 07/07 21:53:26 Result Notes None recorded. 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 He reports that he is feeling well though he is fatigued and is trying to rebuild his strength . He is not having any shortnes s of breath cough or fever or chills. The bandages were removed and the wounds are healing well no other interven tion is required at this time. Problem Code: Z87.09; Problem Code Type: ICD-10; [facility] 4 20:23:39 Diarrhea 25808684 Active 2015 [place] [facility] 4 20:22:13 Long-ter m current use of anticoag ulant 274138563 Active 2015 [place] [facility] 4 20:23:56 Pain of right shoulder joint 22884146755 004158 Active 2016 [facility] 4 20:24:06 Elevated blood-pr essure reading without diagnosi s of hyperten sussy 337900443 Completed 201604/15/2017 Problem Code: R03.0; Problem Code Type: ICD-10; Not Available [facility] 3 04:20:00 Pain of left shoulder joint 11451139796 337010 Active 2017 [facility] 4 20:24:01 Adult health examinat ion Active 2018 [facility] 4 20:21:41 Cardiac pacemake r in situ 645514415 Active 2019 [facility] 4 20:22:01 Attentio n deficit hyperact ivity disorder , predomin antly inattent reuben type 82143465 Active 2019 [facility] 4 20:21:55 History of polyp of colon 704236066 Completed 201612/28/2023 Problem Code: Z86.010; Problem Code Type: ICD-10; [facility] 4 20:23:16 Retentio n of urine 913323101 Active 2020 [facility] 4 20:24:18 Urinary incontin ence 919443740 Active 2020 [facility] 4 20:24:27 Acute upper respirat ory infectio n 22114426 Completed 202006/03/2021 Problem Code: J06.9; Problem Code Type: ICD-10; Not Available [facility] 3 04:20:01 External hordeolu m 2957542 Completed 202009/20/2021 Problem Code: H00.019; Problem Code Type: ICD-10; Not Available [facility] 3 04:20:01 Dysuria 43913537 Completed 202009/20/2021 Problem Code: R30.0; Problem Code Type: ICD-10; Not Available [facility] 3 04:20:01 Atrial fibrilla tion 98387986 Active 2021 [facility] 4 20:21:49 Hyperlip idemia 57343507 Active 2022 Kelvin Meredith [facility] 4 20:23:46 Acute conjunct ivitis 21824257 Completed 202212/28/2023 Problem Code: H10.30; Problem Code Type: ICD-10; Kelvin Meredith [facility] 4 20:21:34 Muscle weakness 42168783 Completed 201812/07/2020 Problem Code: M62.81; Problem Code Type: ICD-10; Not Available [facility] 3 04:20:02 Exposure to communic able disease Completed 202008/02/2021 Problem Code: Z20.9; Problem Code Type: ICD-10; Not Available [facility] 3 04:20:03 Acute sinusiti s 51413893 Completed 202004/01/2021 Problem Code: J01.90; Problem Code Type: ICD-10; Not Available [facility] 3 04:20:03 Superfic ial mycosis 776916913 Completed 201608/28/2019 Problem Code: B36.9; Problem Code Type: ICD-10; Not Available [facility] 3 04:20:03 Left lower quadrant pain 673830242 Completed 201801/16/2020 Problem Code: R10.32; Problem Code Type: ICD-10; Not Available [facility] 3 04:20:03 Pain of toe of left foot 94335735681 9108 Completed 201808/28/2019 Problem Code: M79.675; Problem Code Type: ICD-10; Not Available [facility] 3 04:20:04 Fatigue 45004475 Completed 201601/16/2020 Problem Code: R53.83; Problem Code Type: ICD-10; Not Available [facility] 3 04:20:05 Pain in limb 32255652 Completed 202001/11/2023 Problem Code: M79.609; Problem Code Type: ICD-10; Not Available [facility] 3 04:20:05 Prosthet ic heart valve in situ 958319073 Completed 201510/14/2016 Problem Code: Z95.2; Problem Code Type: ICD-10; [facility] 4 20:24:13 Dyspnea 662638312 Completed 201912/07/2020 Problem Code: R06.02; Problem Code Type: ICD-10; Not Available [facility] 3 04:20:07 Hyperlip idemia screenin g Completed 201701/16/2020 Problem Code: Z13.220; Problem Code Type: ICD-10; Not Available [facility] 3 04:20:08 Dyspnea 415288068 Completed 201612/07/2020 Problem Code: R06.02; Problem Code Type: ICD-10; Not Available [facility] 3 04:20:08 Attentio n deficit hyperact ivity disorder 123004930 Completed 201901/29/2020 Problem Code: F90.9; Problem Code Type: ICD-10; Not Available [facility] 3 04:20:08 Pneumoni a 940138031 Completed 202101/11/2023 Problem Code: J18.9; Problem Code Type: ICD-10; Not Available [facility] 3 04:20:08 Pulmonar y emphysem a 86105467 Completed 201603/18/2021 Problem Code: J43.9; Problem Code Type: ICD-10; Not Available [facility] 3 04:20:09 Dizzines s and giddines s 627556144 Active 2022 [facility] 4 20:24:40 Adenomat ous polyp of colon 358351412 Active 2016 5yr recall Kelvin sparks [facility] 4 20:23:11 Tubular adenoma of colon 533510145 [facility] 4 20:25:19 Dental abscess 394317836 Active [address], [place] [address] , [facility] 4 12:01:41 Bite of arthropo d Active [address], [address] 4 12:26:05 Tear of skin 017630685 Active [address], [place] [address] , [facility] 4 13:17:55 Pruritic rash 45307527 Active [address], [address] 4 09:11:38 Anxiety disorder 113042293 Active [address], [place] [address] , [facility] 4 09:50:08 Anxiety disorder 623609111 Active [address], [address] 4 09:56:40 Problem Notes None recorded. Medical Equipment None Reported. Allergies Allergen ID Allergen Name Allergen Category Reaction Reaction Severity Criticality Documentation Date Start Date Code Code System Note Provider Name and Address Organization Details Recorded Time 59174 amiodaron e hydrochlo ride medicatio n Not available Not available Not available 09/01/20232021 13688 4 RxNorm Not Available [facility] 16:19:06 Medications Name Sig Start Date Stop Date Status Note LastModified by Organization Details LastModified Time Prescript ion - Renewal active refill warfarin [RxRsp] Not Available Not Available Not Available amoxicill in 500 mg capsule TAKE 4 CAPSULES BY MOUTH 1 HOUR BEFORE DENTAL APPOINTM ENT active Not Available Not Available No t Available Miralax 17 gram/dose oral powder Take 17 gram by mouth once a day 05/03 completed Not Available Not Available Not Available azithromy kam 250 mg tablet TK 2 TS PO ON DAY 1, THEN TK 1 T PO D FOR 4 DAYS 12/31 completed Not Available Not Available Not Available warfarin 10 mg tablet TAKE 1 TABLET BY MOUTH DAILY DIRECTED active Not Available Not Available No t Available Coumadin 4 mg tablet Take 2 tablets ( 8 mg) daily with 2 mg for 10 mg daily 06/25 completed Not Available Not Available Not Available clobetaso l 0.05 % topical cream apply twice daily to affect area (s). 2016 active Not Available Not Available Not Avai lable sildenafi l 100 mg tablet Take 1 tablet by mouth 2 hours prior to intercou rse active [facility] Not Available Not Available Not Available vancomyci n 125 mg capsule 4 x day for 10 d 02/20 completed Not Available Not Available Not Available amiodaron e 400 mg tablet Take 1 tablet by mouth once a day 03/17 completed Not Available Not Available Not Available tamsulosi n 0.4 mg capsule TAKE 1 CAPSULE BY MOUTH DAILY active Not Available Not Available No t Available doxycycli ne monohydra te 100 mg capsule 05/06 completed Not Available Not Available Not Available cephalexi n 500 mg capsule TAKE 1 CAPSULE BY MOUTH TWICE DAILY FOR 3 DAYS 05/06 completed Not Available Not Available Not Available warfarin 2 mg tablet Take 1 by mouth daily or as directed 06/25 completed Not Available Not Available Not Available Polytrim 10,000 unit-1 mg/mL eye drops Instill 1 drop into affected eye every three hours while awake for 5 days 01/25 completed Not Available Not Available Not Available betametha sone dipropion ate 0.05 % topical cream Apply 1 a small amount to affected area twice a day Do not use for more than 7 days in a row. 2021 active Not Available Not Available Not Avai lable aspirin 81 mg chewable tablet qd 2020 active Not Available Not Available Not Avai lable zolpidem 5 mg tablet Take 1 tablet every day by oral route at bedtime for 30 days, for insomnia . 2023 active Not Available Not Available Not Avai lable Aspir-81 mg tablet,de layed release Take 1 tab by mouth daily 02/22 completed Not Available Not Available Not Available warfarin 1 mg tablet Take 1 by mouth daily or as directed 06/25 completed Not Available Not Available Not Available albuterol sulfate HFA 90 mcg/actua tion aerosol inhaler INHALE 2 PUFFS INTO THE LUNGS EVERY 6 HOURS NEEDED FOR WHEEZING OR SHORTNES S OF BREATH OR DIFFICUL T BREATHIN G active Not Available Not Available No t Available clotrimaz ole 1 % topical cream Apply 1 as directed to skin twice a day 2023 active Not Available Not Available Not Avai lable amoxicill in 875 mg-potass ium clavulana te 125 mg tablet TAKE 1 TABLET BY MOUTH TWICE DAILY FOR 14 DAYS 05/06 completed Not Available Not Available Not Available Adderall 10 mg tablet Take 1 tab by mouth daily 02/18 completed Not Available Not Available Not Available rosuvasta tin 5 mg tablet 12/31 completed Not Available Not Available Not Available rosuvasta tin 10 mg tablet 12/31 completed Not Available Not Available Not Available rosuvasta tin 20 mg tablet active Not Available Not Available Not Available eszopiclo ne 3 mg tablet Take 1 tablet every night as needed 05/03 completed Not Available Not Available Not Available Lunesta 2 mg tablet Take 1 tablet by mouth at bedtime 03/02 completed Not Available Not Available Not Available chlorhexi dine gluconate 0.12 % mouthwash RINSE AND SWISH WITH 15ML FOR 30 SECONDS THREE TIMES A DAY FOR PERIODON LORY INFLAMMA TION 12/31 completed Not Available Not Available Not Available Spiriva Respimat 2.5 mcg/actua tion solution for inhalatio n INHALE TWO PUFFS BY MOUTH EVERY DAY 12/31 completed Not Available Not Available Not Available Vyvanse 10 mg capsule 1 cap each morning after breakfas t. 01/30 completed Not Available Not Available Not Available Trelegy Ellipta 200 mcg-62.5 mcg-25 mcg powder for inhalatio n INHALE 1 PUFF INTO THE LUNGS DAILY active Not Available Not Available No t Available Paxlovid 300 mg (150 mg x 2)-100 mg tablets in a dose pack TK 2 NIRMATRE LVIR TS AND 1 RITONAVI R T TOGETHER PO TWICE DAILY FOR 5 DAYS 07/17 completed Not Available Not Available Not Available Vitals Date Recorded Body height Body mass index (BMI) Body weight Body temperature Heart rate Oxygen saturation Oxygen saturation in Arterial blood by Pulse oximetry Respiratory rate Systolic blood pressure Diastolic blood pressure Provider Name and Address Organization Details Last Updated DateTime 4 184.15 cm 23.3 kg/m2 04964.7 9 g 96.8 [degF] 80 /min 96 % 96 % 20 /min 130 mm[Hg] 62 mm[Hg] CARLEY JENKINS CMA [facility] 4 08:48:56 Social History Question Answer Notes LastModified by Organizat ion Details LastModified Time Tobacco Smoking Status Former Smoker ALISSA LITTLE RN [facility], [facility] 01/01/2024 10:53:45 When Did You Quit Smoking? 15+yearssinc elastcigaret te Information not available 01/01/2024 What Was The Date Of Your Most Recent Tobacco Screening? 07/17/2024 [email or web address] Information not available 07/17/2024 Has Tobacco Cessation Counseling Been Provided? No Information not available 01/01/2024 Do You Or Have You Ever Used Any Other Forms Of Tobacco Or Nicotine? No [email or web address] Information not available 01/01/2024 Sex: Male Functional Status None recorded. Mental Status None recorded. Family History Relationship Description Onset Age of this Age Resolved Age Notes LastModified by Organization Details LastModified Time Father Family history of acute medical disorder abd aortic aneury sm at 80 [email or web address] Not available 09/01/2023 03:54:49 Mother Family history of cancer of colon [email or web address] Not available 2022 03:54:49 Medical History No medical history recorded. Immunizations Vaccine Type Date Status Provider Name and Address Organization Details Recorded Time Tdap 05/01/[address], [place], [address], [facility] 05/01/2024 13:24:31 Tdap 02/20/2017 completed Not Available [facility] 04:50:22 Pneumococcal conjugate PCV 13 08/28/2019 completed Not Available [facility] 09/01/2023 04:50:22 Influenza, high-dose, trivalent, PF 07/26/2018 completed Not Available [facility] 09/01/2023 04:50:23 Influenza, high-dose, trivalent, PF 09/07/2017 completed Not Available [facility] 09/01/2023 04:50:23 Td(adult) unspecified formulation 09/22/2005 completed Not Available [facility] 09/01/2023 04:50:23 Influenza, MDCK, quadrivalent, PF 08/28/2019 completed Not Available [facility] 09/01/2023 04:50:24 Influenza, high-dose, quadrivalent, PF 12/19/2022 completed Not Available [facility] 09/01/2023 04:50:24 Influenza, high-dose, quadrivalent, PF 07/19/2021 completed Not Available [facility] 09/01/2023 04:50:24 COVID-19, mRNA, LNP-S, PF, 100 mcg/0.5mL dose or 50 mcg/0.25mL dose 12/15/2020 completed Not Available [facility] 09/01/2023 04:50:24 COVID-19, mRNA, LNP-S, PF, 100 mcg/0.5mL dose or 50 mcg/0.25mL dose 01/12/2021 completed Not Available [facility] 09/01/2023 04:50:25 COVID-19, mRNA, LNP-S, PF, 100 mcg/0.5mL dose or 50 mcg/0.25mL dose 01/25/2022 completed Not Available [facility] 09/01/2023 04:50:25 COVID-19, mRNA, LNP-S, PF, 100 mcg/0.5mL dose or 50 mcg/0.25mL dose 08/20/2021 completed Not Available [facility] 09/01/2023 04:50:25 pneumococcal polysaccharide PPV23 09/22/2005 completed Not Available [facility] 2022 04:50:26 influenza, unspecified formulation 07/22/2016 completed Not Available [facility] 09/01/2023 04:50:26 influenza, unspecified formulation 07/23/2020 completed Not Available [facility] 09/01/2023 04:50:26 Past Encounters Encounter ID Performer Location Encounter Start Date Encounter Closed Date Diagnosis/Indication Diagnosis SNOMED-CT Code Diagnosis ICD10 Code [id number] LINDA MCCRAY MD [address] [address] 05/06/2024 08:35:25 05/06/2024 09:12:01 Insomnia 761577809 G47.00 Long-term current use of anticoagulant 181859991 Z79.01 Pruritic rash 04429857 L 28.2 [id number] JUDITH BILL PA-C [address] [address] 05/01/2024 11:39:20 05/01/2024 13:20:50 Tear of skin 734647046 T14.8XXA Health Concerns Section Related Observation LastModified by Organization Detai ls LastModified Time None Recorded Concern Status LastModified by Organization Details LastModified Time None Recorded Payers Encounter Date Sequence Insurance Name Policy Number Policy Moya Covered Member ID Moya Member ID Guarantor Name 05/06/2024 2 [place] [facility] [id number] [place] Daron [id number] [place] Neri 05/06/2024 1 [place] [employer] [place] Norris Daron [id number] [place] Neri Notes Date Note Type Note Provider Name and Address Organization Details Recorded Time 05/06/2024 text/html HPI Notes: Gordon is a 74-year-old gentleman who comes in today with 2 concerns 1 he states he is a good sleeper has not been a good sleeper most of his life and that has been very concerned he would like to get a sleep study he had planned to do this several years ago but never really found the time he like to make that happen in the near future. He has chronic atrial fibrillation and because of that he is anticoagulated with Coumadin his INR was 2.7 and he has not had any signs of bleeding. He does not go on to one of the other anticoagulants because he also has a prostatic heart valve. Overall he reports he is feeling well except for the sleep. He was recently seen in urgent care because he banged his left jaime on the lawnmower and pulled the skin off in 2 places and it was bleeding fairly heavy that was about 4 days ago he states he has been keeping it clean and covered and it is healing well and not bleeding. He has had no chest pain shortness of breath cough fever chills nausea vomiting or diarrhea no change in his bowels or urination. LINDA MCCRAY MD [address], [place], [id number], [facility]. 05/06/2024 12:30:53
--- OUTSIDE RECORDS SUMMARY | 2024-07-17 21:45 | XMS_ITS | Data Portability ---
Author Organization [facility] Address [place] [address] Assessment Encounter Date Assessment Date Assessment LastModified by Organization Details LastModified Time 05/06/2024 05/06/2024 The total time devoted to today's encounter, including both the saka-zl-rpnz time with the patient and/or family/caregi abhay and amr-znvt-oe-f melissa time I personally spent is 33 minutes. [email or web address] Not available 05/06/2024 09:12:58 Plan of Treatment Reminders Order Date Submit Date Provider Last Modified By Organization Details Last Modified Time Details Appointments Office Visit 20 2023 09:40A M Not available Not available Not available Counselin g 60 2023 10:50A M Not available Not available Not available Office Visit 20 2023 10:20A M Not available Not available Not available Office Visit 20 2023 11:30A M Not available Not available Not available Office Visit 2024 08:00A M Not available Not available Not available Lab CBC w/ auto diff [address] [facility] (Registration ), [address] [place] [address] [place], [address], 03/26/2024 10:29:25 CMP, serum or plasma 2023 [address] [facility] (Registration ), [address] [place] [address] [place], [address], 03/19/2024 21:51:35 tick-born e disease panel 2023 [email or web address] [facility] (Registration ), [address] [place] [address] , [place], [address], 03/26/2024 10:29:25 PT/INR 2023 024 [facility], [address] [place], [address], 03/19/2024 13:11:23 Referral sleep medicine referral 2023 [facility], [address] [place] [address] Dr [facility], [place], [address], 07/10/2024 14:43:00 Procedures None recorded. Surgeries None recorded. Imaging None recorded. Medication Orders cephalexi n 500 mg capsule 2023 [id number], [address] [place] [address], [id number], 05/06/2024 08:49:39 clotrimaz ole 1 % topical cream 2023 024 [id number], [address], [place], [id number], 05/06/2024 12:30:07 Patient TargetsNo targets recorded. Patient Instructions Encounter Date Encounter Id Patient Instructions Last Modified By Organization Details Last Modified Time 05/01/2024 [id number] 1. The skin tear at the bottom of your leg was cleaned today and then bacitracin ointment and bandage was applied. I would like you to do at least daily dressing changes and make sure that you clean this area and make sure that you do not feel that there is any concerning signs for infection. 2. Signs of infection include redness growing from around the wound, red streaking of the skin, pussy purulent drainage. This would indicate need to seek reevaluation. 3. 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 4. Tetanus updated today. [email or web address] Not available 05/01/2024 13:19:48 Reason for Referral Sleep Medicine Referral for Insomnia Referring Physician: Linda Vang, Family Medicine, Encounter Date: 05/06/2024 Behavioral Psychotherapy Ref erral for Anxiety disorder Referring Physician: Linda Vang Family Medicine, Encounter Date: 07/17/2024 Results Created Date Observation Date Name Description Value Unit Range Abnormal Flag Note LastModifiedBy Organization Detail LastModifiedTime 01/15/20 24 01/15/2024 PT/IN R INR 2.4 2.5-3. 5 Not Available [facility] [address], [place], [address], 01/15/2024 14:39:01 02/05/20 24 02/05/2024 PROTH ROMBI N TIME prothrombin time 24.5 sec 9.1-11 .1 high Not Available [address] , [place], [address] 02/05/2024 17:09:21 02/05/20 24 02/05/2024 PROTH ROMBI N TIME INR 2.7 0.9-1. 1 high Recom yash d INR thera peuti c range s for orall y admin ister ed drugs are as follo ws: -Tadeo dard Inten sity 2.0 to 3.0 -High er Inten sity 3.0 to 4.5 Not Available [address] , [place], [address] 02/05/2024 17:09:21 02/15/20 24 02/15/2024 PT/IN R INR 2.3 2.5-3. 5 Nahun nue 10mg Couma din qd reche ck in 1 week. ATY Not Available [facility] [address] [place], [address], 02/15/2024 09:05:38 02/22/20 24 02/22/2024 COMPL ETE BLOOD COUNT W/DIF F WBC 6.10 10_3/ uL 4.4-10 .8 normal Not Available [address] [place], [address] 02/22/2024 15:49:54 02/22/20 24 02/22/2024 COMPL ETE BLOOD COUNT W/DIF F RBC 4.46 10_6/ uL 4.36-5 .78 normal Not Available [address] [place], [address] 02/22/2024 15:49:54 02/22/20 24 02/22/2024 COMPL ETE BLOOD COUNT W/DIF F HGB 13.0 g/dL 13.5-1 7.5 low Not Available [address] [place], [address] 02/22/2024 15:49:54 02/22/20 24 02/22/2024 COMPL ETE BLOOD COUNT W/DIF F HCT 39.9 % 40.0-5 0.0 low Not Available [address] [place], [address] 02/22/2024 15:49:54 02/22/20 24 02/22/2024 COMPL ETE BLOOD COUNT W/DIF F MCV 90 fL 80-95 normal Not Available [address] [place], [address] 02/22/2024 15:49:54 02/22/20 24 02/22/2024 COMPL ETE BLOOD COUNT W/DIF F MCH 29.1 pg 27.0-3 3.0 normal Not Available [address] [place], [address] 02/22/2024 15:49:54 02/22/20 24 02/22/2024 COMPL ETE BLOOD COUNT W/DIF F MCHC 32.6 % 32.0-3 6.0 normal Not Available [address] [place], [address] 02/22/2024 15:49:54 02/22/20 24 02/22/2024 COMPL ETE BLOOD COUNT W/DIF F RDW 13.8 % 11.8-1 4.1 normal Not Available [address] [place], [address] 02/22/2024 15:49:54 02/22/20 24 02/22/2024 COMPL ETE BLOOD COUNT W/DIF F platelet count 190 10_3/ uL 130-40 0 normal Not Available [address] [place], [address] 02/22/2024 15:49:54 02/22/20 24 02/22/2024 COMPL ETE BLOOD COUNT W/DIF F MPV 10.3 fL 8.0-11 .0 normal Not Available [address] [place], [address] 02/22/2024 15:49:54 02/22/20 24 02/22/2024 COMPL ETE BLOOD COUNT W/DIF F neutrophils % 70.2 % Not Available [address] [place], [address] 02/22/2024 15:49:54 02/22/20 24 02/22/2024 COMPL ETE BLOOD COUNT W/DIF F lymphocytes % 17.5 % Not Available [address] [facility] [place], [address] 02/22/2024 15:49:54 02/22/20 24 02/22/2024 COMPL ETE BLOOD COUNT W/DIF F monocytes % 8.2 % Not Available [address] [facility] [place], [address] 02/22/2024 15:49:54 02/22/20 24 02/22/2024 COMPL ETE BLOOD COUNT W/DIF F eosinophils % 2.5 % Not Available [address] [facility] [place], [address] 02/22/2024 15:49:54 02/22/20 24 02/22/2024 COMPL ETE BLOOD COUNT W/DIF F basophils % 1.1 % Not Available [address] [facility] [place], [address] 02/22/2024 15:49:54 02/22/20 24 02/22/2024 COMPL ETE BLOOD COUNT W/DIF F immature grans % 0.5 % Not Available [address] [place], [address] 02/22/2024 15:49:54 02/22/20 24 02/22/2024 COMPL ETE BLOOD COUNT W/DIF F nucleated RBC 0.0 % 0.0-0. 3 normal Not Available [address] [place], [address] 02/22/2024 15:49:54 02/22/20 24 02/22/2024 COMPL ETE BLOOD COUNT W/DIF F absolute neutrophil count 4.28 10_3/ uL 1.2-6. 7 normal Not Available [address] [place], [address] 02/22/2024 15:49:54 02/22/20 24 02/22/2024 COMPL ETE BLOOD COUNT W/DIF F absolute lymphocyte count 1.07 10_3/ uL 1.2-3. 4 low Not Available [address] [place], [address] 02/22/2024 15:49:54 02/22/20 24 02/22/2024 COMPL ETE BLOOD COUNT W/DIF F absolute monocyte count 0.50 10_3/ uL 0.1-0. 8 normal Not Available [address] [place], [address] 02/22/2024 15:49:54 02/22/20 24 02/22/2024 COMPL ETE BLOOD COUNT W/DIF F absolute eosinophil count 0.15 10_3/ uL 0.0-0. 7 normal Not Available [address] [place], [address] 02/22/2024 15:49:54 02/22/20 24 02/22/2024 COMPL ETE BLOOD COUNT W/DIF F absolute basophil count 0.07 10_3/ uL 0.0-0. 2 normal Not Available [address] [place], [address] 02/22/2024 15:49:54 02/22/20 24 02/22/[address] METAB OLIC PANEL calcium 8.9 mg/dL 8.5-10 .1 normal Not Available [address] [place], [address] 02/22/2024 18:00:12 02/22/20 24 02/22/[address] METAB OLIC PANEL glucose 88 mg/dL 74-106 normal Not Available Luh ruiz [address] [place], [address] 02/22/2024 18:00:12 02/22/20 24 02/22/[address] METAB OLIC PANEL BUN 22 mg/dL 7-18 high Not Available Luh ruiz [address] [place], [address] 02/22/2024 18:00:12 02/22/20 24 02/22/[address] METAB OLIC PANEL creatinine 1.1 mg/dL 0.70-1 .30 normal Not Available [address] [place], [address] 02/22/2024 18:00:12 02/22/20 24 02/22/[address] METAB OLIC PANEL estimated GFR 70.44 mL/min /1.73m 2 The eGFR is calcu lated from a serum creat inine using the CKD-E PI 2020 equat ion. Other varia bles requi red for the equat ion are gende r and age; this equat ion does not inclu de a race coeff icien t. This equat ion has simil ar overa ll perfo rmanc e to previ ous equat ions excep t value s may diffe r, in parti cular , in patie nts with highe r value s of eGFR and young er-ag ed adult s. Not Available [address] [place], [address] 02/22/2024 18:00:12 02/22/20 24 02/22/[address] METAB OLIC PANEL total protein 7.2 g/dL 6.4-8. 2 normal Not Available [address] [place], [address] 02/22/2024 18:00:12 02/22/20 24 02/22/[address] METAB OLIC PANEL albumin 4.1 g/dL 3.4-5. 0 normal Not Available [address] [place], [address] 02/22/2024 18:00:12 02/22/20 24 02/22/[address] METAB OLIC PANEL bilirubin, total 0.6 mg/dL 0.2-1. 0 normal Not Available [address] [place], [address] 02/22/2024 18:00:12 02/22/20 24 02/22/[address] METAB OLIC PANEL alk phos 54 U/L 46-116 normal Not Available [address] [place], [address] 02/22/2024 18:00:12 02/22/20 24 02/22/[address] METAB OLIC PANEL sodium 141 mmol/ L 136-14 5 normal Not Available [address] [place], [address] 02/22/2024 18:00:12 02/22/20 24 02/22/[address] METAB OLIC PANEL potassium 4.8 mmol/ L 3.5-5. 1 normal Not Available [address] [place], [address] 02/22/2024 18:00:12 02/22/20 24 02/22/[address] METAB OLIC PANEL chloride 103 mmol/ L 98-107 normal Not Available [address] [place], [address] 02/22/2024 18:00:12 02/22/20 24 02/22/[address] METAB OLIC PANEL CO2 30.2 mmol/ L 21.0-3 2.0 normal Not Available [address] [place], [address] 02/22/2024 18:00:12 02/22/20 24 02/22/[address] METAB OLIC PANEL anion gap 7.8 mmol/ L 3-11 normal Not Available [address] [place], [address] 02/22/2024 18:00:12 02/22/20 24 02/22/[address] METAB OLIC PANEL AST 32 U/L 15-37 normal Not Available Luh ruiz [address] [place], [address] 02/22/2024 18:00:12 02/22/20 24 02/22/[address] METAB OLIC PANEL ALT 30 U/L 16-63 normal Not Available Luh ruiz [address] [place], [address] 02/22/2024 18:00:12 02/22/20 24 02/22/2024 LIPID 2 cholesterol 184 mg/dL <200 Not Available [address] [place], [address] 02/22/2024 18:00:12 02/22/20 24 02/22/2024 LIPID 2 triglyceride 138 mg/dL <150 Not Available [address] [place], [address] 02/22/2024 18:00:12 02/22/20 24 02/22/2024 LIPID 2 HDL cholesterol 70 mg/dL 40-60 Not Available Gina [address] [place], [address] 02/22/2024 18:00:12 02/22/20 24 02/22/2024 LIPID 2 calculated LDL 87 mg/dL <100 Natio nal Olivia stero l Educa tion Progr am (NCEP -ATPI II) class ifica tions : Olivia stero l <200 mg/dL Elva able Olivia stero l 200-2 39 mg/dL Borde rline High Olivia stero l >or=2 40 mg/dL High HDL <40 mg/dL Low HDL >or=6 0 mg/dL High LDL <100 mg/dL Optim al LDL 100-1 29 mg/dL Near Optim al/Ab ove Optim al LDL 130-1 59 mg/dL Borde rline High LDL 160-1 89 mg/dL High LDL >or=1 90 mg/dL Very High *The above refer ence range is for adult s 18 years or older . Not Available [address] [place], [address] 02/22/2024 18:00:12 02/22/20 24 02/23/2024 IMMUN OGLOB ULINS IGA,I GG,IG M IgG 901 mg/dL 610-16 16 Not Available [address] [place], [address] 02/23/2024 12:34:34 02/22/20 24 02/23/2024 IMMUN OGLOB ULINS IGA,I GG,IG M IgA 203 mg/dL 85-499 Not Available Luh ruiz [address] [place], [address] 02/23/2024 12:34:34 02/22/20 24 02/23/2024 IMMUN OGLOB ULINS IGA,I GG,IG M IgM 99 mg/dL 35-242 Test perfo rmed or refer red by [facility] [address] [place] [place] [address] Not Available [address] [place], [address] 02/23/2024 12:34:34 02/22/20 24 02/23/2024 IMMUN OGLOB ULINS IGA,I GG,IG M IgG 901 mg/dL 610-16 16 Not Available [address] [place], [address] 02/26/2024 08:58:40 02/22/20 24 02/23/2024 IMMUN OGLOB ULINS IGA,I GG,IG M IgA 203 mg/dL 85-499 Not Available Luh [address] [place], [address] 02/26/2024 08:58:40 02/22/20 24 02/23/2024 IMMUN OGLOB ULINS IGA,I GG,IG M IgM 99 mg/dL 35-242 Test perfo rmed or refer red by [facility] [address] [place] [address] Not Available [address] [place], [address] 02/26/2024 08:58:40 02/22/20 24 02/23/2024 IMMUN OGLOB ULIN SUBCL ASS IGG4 immunoglobul in subclass IgG4 30.2 mg/dL ----- ----- ----- ----R EFERE NCE VALUE ----- ----- ----- ----- ----- - 2.4 - 121.0 Test Perfo rmed by: [facility] [place] [address], [place] [address] Lab Direc tor: Kimo August Ph.D. ; CLIA# [id number] Not Available [address] [place], [address] 02/26/2024 08:58:41 02/22/2002/26/2024 QUANT IFERO N TB GOLD PLUS TB interpretati on Negati ve negati ve No inter feron -gamm a respo nse to M. tuber culos is antig ens was detec giovanni. Infec tion with M. tuber culos is is unlik isma. A singl e negat ave resul t does not exclu de infec tion with M. tuber culos is. In patie nts at high risk for M. tuber culos is infec tion, a secon d test shoul d be consi dered . Not Available [address] [place], [address] 02/26/2024 15:52:12 02/22/20 24 02/26/2024 QUANT IFERO N TB GOLD PLUS TB1 Ag minus nil 0.00 IU/mL Not Available Omid decker [address] [place], [address] 02/26/2024 15:52:12 02/22/20 24 02/26/2024 QUANT IFERO N TB GOLD PLUS TB2 Ag minus nil 0.01 IU/mL Test perfo rmed or refer red by [facility] [address] [place] [address] Not Available [address] [facility] [place], [address] 02/26/2024 15:52:12 02/22/20 24 02/22/2024 LIPID 2 cholesterol 184 mg/dL <200 Not Available [address] [place], [address] 02/29/2024 04:31:29 02/22/20 24 02/22/2024 LIPID 2 triglyceride 138 mg/dL <150 Not Available [address] [place], [address] 02/29/2024 04:31:29 02/22/20 24 02/22/2024 LIPID 2 HDL cholesterol 70 mg/dL 40-60 Not Available Nidahaylee lavelle[address] [place], [address] 02/29/2024 04:31:29 02/22/20 24 02/22/2024 LIPID 2 calculated LDL 87 mg/dL <100 Natio nal Olivia stero l Educa tion Progr am (NCEP -ATPI II) class ifica tions : Olivia stero l <200 mg/dL Elva able Olivia stero l 200-2 39 mg/dL Borde rline High Olivia stero l >or=2 40 mg/dL High HDL <40 mg/dL Low HDL >or=6 0 mg/dL High LDL <100 mg/dL Optim al LDL 100-1 29 mg/dL Near Optim al/Ab ove Optim al LDL 130-1 59 mg/dL Borde rline High LDL 160-1 89 mg/dL High LDL >or=1 90 mg/dL Very High *The above refer ence range is for adult s 18 years or older . Not Available [address] [place], [address] 02/29/2024 04:31:29 02/23/20 24 02/23/2024 GRAM STAIN gram stain Gram Stain FAX RESUL TS TO DR ROMERO @ [phone] GRAM STAIN (REPO RT) Moder ate White Blood Cells Few Mixed Gram Posit ave Netta ; None Predo minan t Rare Gram Negat ave Aj Not Available [address] [place], [address] 02/23/2024 11:52:22 02/23/20 24 02/23/2024 SPUTU M AEROB IC CULTU RE sputum aerobic culture Sputu m Aerob ic Cultu re FAX RESUL TS TO DR ROMERO @ [phone] APPEA CAR Ann l Netta GROWT H(REP ORT) HEAVY GROWT H Day 1 Resul t ISOLA DORIS BELOW O:NF (ORGA NISM ID: 1.1) - ANN L ENTTA Sputu m Aerob ic Cultu re (ORGA NISM ID: 1.1) - GROWT H(REP ORT) (ORGA NISM ID: 1.1) - HEAVY GROWT H Not Available [address] [place], [address] 02/24/2024 08:37:22 02/23/20 24 02/23/2024 SPUTU M AEROB IC CULTU RE sputum aerobic culture Sputu m Aerob ic Cultu re FAX RESUL TS TO DR ROMERO @ [phone] APPEA CAR Ann l Netta APPEA CRA Ann l Netta GROWT H(REP ORT) HEAVY GROWT H GROWT H(REP ORT) HEAVY GROWT H Day 1 Resul t ISOLA DORIS BELOW Day 2 Resul t ISOLA DORIS BELOW O:NF (ORGA NISM ID: 1.1) - ANN L NETTA Sputu m Aerob ic Cultu re (ORGA NISM ID: 1.1) - GROWT H(REP ORT) (ORGA NISM ID: 1.1) - HEAVY GROWT H Not Available [address] [place], [address] 02/25/2024 07:28:18 02/23/20 24 02/23/2024 SPUTU M AEROB IC CULTU RE sputum aerobic culture Sputu m Aerob ic Cultu re FAX RESUL TS TO DR ROMERO @ [phone] APPEA CAR Ann l Netta APPEA CAR Ann l Netta APPEA CAR Ann l Netta GROWT H(REP ORT) HEAVY GROWT H GROWT H(REP ORT) HEAVY GROWT H GROWT H(REP ORT) HEAVY GROWT H Day 1 Resul t ISOLA DORIS BELOW Day 2 Resul t ISOLA DORIS BELOW Day 3 Resul t ISOLA DORIS BELOW O:NF (ORGA NISM ID: 1.1) - ANN L NETTA Sputu m Aerob ic Cultu re (ORGA NISM ID: 1.1) - GROWT H(REP ORT) (ORGA NISM ID: 1.1) - HEAVY GROWT H Not Available [address] [place], [address] 02/26/2024 07:53:11 02/23/20 24 04/02/2024 FUNGA L CULTU RE SMEAR fungal culture smear See Commen ts Cultu re Resul t: Penic illiu m speci es and Asper gillu s mark us ident ified by [facility] . Preli m: Two Fungu s recov ered. Refer red to [facility] for ident ifica tion. Test Perfo rmed or refer red by: [facility] [address] Not Available [address] [place], [address] 04/02/2024 11:57:38 02/23/20 24 04/17/2024 AFB CULTU RE SMEAR (STAT E LAB) AFB smear See Commen ts Fluor ochro me: Negat ave Inter preta tion: No acid fast bacil li seen Not Available [address] [facility] [place], [address] 04/17/2024 09:24:06 02/23/20 24 04/17/2024 AFB CULTU RE SMEAR (STAT E LAB) AFB culture result See Commen ts No Mycob acter ia recov ered Test Perfo rmed by: [facility] [address] Not Available [address] [place], [address] 04/17/2024 09:24:06 02/23/20 24 04/02/2024 FUNGA L CULTU RE SMEAR fungal culture smear See Commen ts Cultu re Resul t: Penic illiu m speci es and Asper gillu s mark us ident ified by [facility] . Preli m: Two Fungu s recov ered. Refer red to [facility] for ident ifica tion. Test Perfo rmed or refer red by: [facility] [address] [place] [address] Not Available [address] [place], [address] 04/17/2024 09:24:07 02/25/20 24 02/25/2024 PT/IN R INR 2.9 2.5-3. 5 Nahun nue 10mg Coumd antione qd reche ck in 1 week. KM Not Available [facility] [address] [place], [address], 02/25/2024 11:19:14 02/25/20 24 02/25/2024 PT/IN R INR 2.9 2.5-3. 5 Not Available [facility] [address] [place], [address], 02/25/2024 02:33:07 03/19/20 24 03/19/2024 COMPL ETE BLOOD COUNT NO DIFF WBC 5.34 10_3/ uL 4.4-10 .8 normal Not Available [address] [place], [address] 03/19/2024 21:44:32 03/19/20 24 03/19/2024 COMPL ETE BLOOD COUNT NO DIFF RBC 4.13 10_6/ uL 4.36-5 .78 low Not Available [address] [place], [address] 03/19/2024 21:44:32 03/19/20 24 03/19/2024 COMPL ETE BLOOD COUNT NO DIFF HGB 12.1 g/dL 13.5-1 7.5 low Not Available [address] [place], [address] 03/19/2024 21:44:32 03/19/20 24 03/19/2024 COMPL ETE BLOOD COUNT NO DIFF HCT 37.1 % 40.0-5 0.0 low Not Available [address] [place], [address] 03/19/2024 21:44:32 03/19/20 24 03/19/2024 COMPL ETE BLOOD COUNT NO DIFF MCV 90 fL 80-95 normal Not Available Luh ruiz [address] [place], [address] 03/19/2024 21:44:32 03/19/20 24 03/19/2024 COMPL ETE BLOOD COUNT NO DIFF MCH 29.3 pg 27.0-3 3.0 normal Not Available [address] [place], [address] 03/19/2024 21:44:32 03/19/20 24 03/19/2024 COMPL ETE BLOOD COUNT NO DIFF MCHC 32.6 % 32.0-3 6.0 normal Not Available [address] [place], [address] 03/19/2024 21:44:32 03/19/20 24 03/19/2024 COMPL ETE BLOOD COUNT NO DIFF RDW 14.4 % 11.8-1 4.1 high Not Available [address] [place], [address] 03/19/2024 21:44:32 03/19/20 24 03/19/2024 COMPL ETE BLOOD COUNT NO DIFF platelet count 170 10_3/ uL 130-40 0 normal Not Available [address] [place], [address] 03/19/2024 21:44:32 03/19/20 24 03/19/2024 COMPL ETE BLOOD COUNT NO DIFF MPV 11.4 fL 8.0-11 .0 high Not Available [address] [place], [address] 03/19/2024 21:44:32 03/19/20 24 03/19/[address] METAB OLIC PANEL calcium 9.6 mg/dL 8.5-10 .1 normal Not Available [address] [place], [address] 03/19/2024 21:51:35 03/19/20 24 03/19/[address] METAB OLIC PANEL glucose 97 mg/dL 74-106 normal Not Available Luh ruiz [address] [place], [address] 03/19/2024 21:51:35 03/19/20 24 03/19/[address] METAB OLIC PANEL BUN 21 mg/dL 7-18 high Not Available Luh ruiz [address] [place], [address] 03/19/2024 21:51:35 03/19/20 24 03/19/[address] METAB OLIC PANEL creatinine 0.8 mg/dL 0.70-1 .30 normal Not Available [address] [place], [address] 03/19/2024 21:51:35 03/19/20 24 03/19/[address] METAB OLIC PANEL estimated GFR 92.87 mL/min /1.73m 2 The eGFR is calcu lated from a serum creat inine using the CKD-E PI 2020 equat ion. Other varia bles requi red for the equat ion are gende r and age; this equat ion does not inclu de a race coeff icien t. This equat ion has simil ar overa ll perfo rmanc e to previ ous equat ions excep t value s may diffe r, in parti cular , in patie nts with highe r value s of eGFR and young er-ag ed adult s. Not Available [address] [place], [address] 03/19/2024 21:51:35 03/19/20 24 03/19/[address] METAB OLIC PANEL total protein 6.7 g/dL 6.4-8. 2 normal Not Available [address] [place], [address] 03/19/2024 21:51:35 03/19/20 24 03/19/[address] METAB OLIC PANEL albumin 4.0 g/dL 3.4-5. 0 normal Not Available [address] [place], [address] 03/19/2024 21:51:35 03/19/20 24 03/19/[address] METAB OLIC PANEL bilirubin, total 0.6 mg/dL 0.2-1. 0 normal Not Available [address] [place], [address] 03/19/2024 21:51:35 03/19/20 24 03/19/[address] METAB OLIC PANEL alk phos 45 U/L 46-116 low Not Available [address] [place], [address] 03/19/2024 21:51:35 03/19/20 24 03/19/[address] METAB OLIC PANEL sodium 139 mmol/ L 136-14 5 normal Not Available [address] [place], [address] 03/19/2024 21:51:35 03/19/20 24 03/19/[address] METAB OLIC PANEL potassium 4.4 mmol/ L 3.5-5. 1 normal Not Available [address] [place], [address] 03/19/2024 21:51:35 03/19/20 24 03/19/[address] METAB OLIC PANEL chloride 106 mmol/ L 98-107 normal Not Available [address] [place], [address] 03/19/2024 21:51:35 03/19/20 24 03/19/[address] METAB OLIC PANEL CO2 29.2 mmol/ L 21.0-3 2.0 normal Not Available [address] [place], [address] 03/19/2024 21:51:35 03/19/20 24 03/19/[address] METAB OLIC PANEL anion gap 3.8 mmol/ L 3-11 normal Not Available [address] [place], [address] 03/19/2024 21:51:35 03/19/20 24 03/19/[address] METAB OLIC PANEL AST 32 U/L 15-37 normal Not Available [address] [place], [address] 03/19/2024 21:51:35 03/19/20 24 03/19/[address] METAB OLIC PANEL ALT 31 U/L 16-63 normal Not Available L[address] [place], [address] 03/19/2024 21:51:35 03/19/20 24 03/21/2024 LYME AB W RFLX TO LYME CONFI RM lyme Ab W rflx to lyme confirm Negati ve negati ve Test perfo rmed or refer red by [facility] [address], [place] [address] Not Available [address] [place], [address] 03/21/2024 13:43:59 03/19/20 24 03/21/2024 LYME AB W RFLX TO LYME CONFI RM lyme Ab W rflx to lyme confirm Negati ve negati ve Test perfo rmed or refer red by [facility] [address], [place] [address] Not Available [address] [place], [address] 03/25/2024 13:10:19 03/19/20 24 03/23/2024 TICK- BORNE DNA PANEL , PCR, B anaplasma phagocytophi lum Negati ve negati ve Not Available [address] [place], [address] 03/25/2024 13:10:19 03/19/20 24 03/23/2024 TICK- BORNE DNA PANEL , PCR, B ehrlichia chaffeensis Negati ve negati ve Not Available [address] [place], [address] 03/25/2024 13:10:19 03/19/20 24 03/23/2024 TICK- BORNE DNA PANEL , PCR, B ehrlichia ewingii/cani s Negati ve negati ve Not Available [address] [place], [address] 03/25/2024 13:10:19 03/19/20 24 03/23/2024 TICK- BORNE DNA PANEL , PCR, B ehrlichia muris eauclairensi s Negati ve negati ve ----- ----- ----- ----A DDITI ONAL INFOR MATIO N---- ----- ----- ----- This test was devel oped and its perfo rmanc e lauryn cteri stics deter mined by [facility] in a akbar r consi stent with CLIA requi remen ts. This test has not been clear ed or appro teo by the U.S. Food and Drug Admin istra tion. Not Available [address] [place], [address] 03/25/2024 13:10:19 03/19/2003/23/2024 TICK- BORNE DNA PANEL , PCR, B babesia microti Negati ve negati ve Not Available [address] [place], [address] 03/25/2024 13:10:19 03/19/2003/23/2024 TICK- BORNE DNA PANEL , PCR, B babesia duncani Negati ve negati ve Not Available [address] [place], [address] 03/25/2024 13:10:19 03/19/2003/23/2024 TICK- BORNE DNA PANEL , PCR, B babesia divergens/MO -1 Negati ve negati ve ----- ----- ----- ----A DDITI ONAL INFOR MATIO N---- ----- ----- ----- This test was devel oped and its perfo rmanc e lauryn cteri stics deter mined by [facility] in a akbar r consi stent with CLIA requi remen ts. This test has not been clear ed or appro teo by the U.S. Food and Drug Admin istra tion. Not Available [address] [place], [address] 03/25/2024 13:10:19 03/19/20 24 03/23/2024 TICK- BORNE DNA PANEL , PCR, B B. miyamotoi PCR Negati ve negati ve ----- ----- ----- ----A DDITI ONAL INFOR SUAD N---- ----- ----- ----- This test was devdoug oped and its perfo rmanc e lauryn cteri stics deter mined by [facility] in a akbar r consi stent with CLIA rylan ocampo ts. This test has not been clear ed or appro teo by the U.S. Food and Drug Admin istra tion. Test Perfo rmed by: [facility] Labor atori es - [facility] [address] , [place] [address] Lab Direc tor: Kimo August Ph.D. ; CLIA# [id number] Not Available [facility] [address] [place], [address] 03/25/2024 13:10:19 03/19/20 24 03/19/2024 PT/IN R prothrombin 33.4 secon ds Not Available [address], [address], 03/19/2024 12:56:52 03/19/20 24 03/19/2024 PT/IN R INR 2.8 Not Available [address], [address], 03/19/2024 12:56:52 04/01/20 24 04/01/2024 INR, blood INR 2.7 2.5-3. 5 Not Available [facility] [address] [place], [address], 04/01/2024 09:41:23 04/26/20 24 04/26/2024 INR, blood INR 2.8 2.5-3. 5 Not Available [facility] [address] [place], [address], 04/26/2024 14:38:32 05/03/20 24 05/03/2024 INR, blood INR 2.7 2.5-3. 5 Curre nt couma din dose 10mg qd. Not Available [facility] [address] [place] [address], [address], 05/03/2024 20:32:40 05/26/20 24 05/26/2024 INR, blood INR 2.6 2.5-3. 5 Curre nt Couma din dose 15mg W, 10mg all other days. Not Available [facility] [address] [place] [address], [address], 05/26/2024 21:47:51 06/04/20 24 06/04/2024 PT/IN R INR 3.2 2.5-3. 5 Curre nt Couma din dose 15mg W, 10mg all other days. Not Available [facility] [address] [place] [address], [address], 06/04/2024 16:48:05 07/04/20 24 07/04/2024 PT/IN R INR 4.1 2.5-3. 5 Couma din dose 20mg W, 10mg all other days Not Available [facility] [address] [place] [address], [address], 07/04/2024 10:29:50 07/17/20 24 07/17/2024 PT/IN R prothrombin 54.5 secon ds Not Available [address], [address], 07/17/2024 10:09:46 07/17/20 24 07/17/2024 PT/IN R INR 4.5 Not Available [address], [address], 07/17/2024 10:09:46 07/07/20 24 02/21/2022 imagi ng/di agnos tic [...] Time Prosthet ic heart valve in situ 012186972 Active 2015 [facility]. 4 20:24:13 Insomnia 755852036 Active 2015 [facility] 4 20:23:51 History of respirat ory disease 158522328 Completed 201512/28/2023 03/18/20 21 - Comments only - Linda Vang MD - [place] Neri Comes into the [...] Code: Z87.09; Problem Code Type: ICD-10; [facility] 4 20:23:39 Diarrhea 17073653 Active 2015 [facility] 4 20:22:13 Long-ter m current use of anticoag ulant 864266347 Active 2015 [facility] 4 20:23:56 Pain of right shoulder joint 17877326810 029611 Active 2016 [facility] 4 20:24:06 Elevated blood-pr essure reading without diagnosi s of hyperten sussy 421687128 Completed 201604/15/2017 Problem Code: R03.0; Problem Code Type: ICD-10; Not Available [facility] 3 04:20:00 Pain of left shoulder joint 01126636947 615919 Active 2017 [facility], [facility]. 4 20:24:01 Adult health examinat ion Active 2018 [facility]. 4 20:21:41 Cardiac pacemake r in situ 016176910 Active 2019 [facility] 4 20:22:01 Attentio n deficit hyperact ivity disorder , predomin antly inattent ave type 34884969 Active 2019 [facility] 4 20:21:55 History of polyp of colon 231832972 Completed 201612/28/2023 Problem Code: Z86.010; Problem Code Type: ICD-10; [facility] 4 20:23:16 Retentio n of urine 975450645 Active 2020 [facility] 4 20:24:18 Urinary incontin ence 298829657 Active 2020 [facility] 4 20:24:27 Acute upper respirat ory infectio n 43502343 Completed 202006/03/2021 Problem Code: J06.9; Problem Code Type: ICD-10; Not Available [facility] 3 04:20:01 External hordeolu m 1762732 Completed 202009/20/2021 Problem Code: H00.019; Problem Code Type: ICD-10; Not Available [facility] 3 04:20:01 Dysuria 02112662 Completed 202009/20/2021 Problem Code: R30.0; Problem Code Type: ICD-10; Not Available [facility] 3 04:20:01 Atrial fibrilla tion 96801209 Active 2021 [facility] 4 20:21:49 Hyperlip idemia 41693127 Active 2022 [facility] 4 20:23:46 Acute conjunct ivitis 58084521 Completed 202212/28/2023 Problem Code: H10.30; Problem Code Type: ICD-10; [facility] 4 20:21:34 Muscle weakness 66172532 Completed 201812/07/2020 Problem Code: M62.81; Problem Code Type: ICD-10; Not Available [facility] 3 04:20:02 Exposure to communic able disease Completed 202008/02/2021 Problem Code: Z20.9; Problem Code Type: ICD-10; Not Available [facility] 3 04:20:03 Acute sinusiti s 70938129 Completed 202004/01/2021 Problem Code: J01.90; Problem Code Type: ICD-10; Not Available [facility] 3 04:20:03 Superfic ial mycosis 320935801 Completed 201608/28/2019 Problem Code: B36.9; Problem Code Type: ICD-10; Not Available [facility] 3 04:20:03 Left lower quadrant pain 255001558 Completed 201801/16/2020 Problem Code: R10.32; Problem Code Type: ICD-10; Not Available [facility] 3 04:20:03 Pain of toe of left foot 50820790501 9108 Completed 201808/28/2019 Problem Code: M79.675; Problem Code Type: ICD-10; Not Available [facility] 3 04:20:04 Fatigue 93426144 Completed 201601/16/2020 Problem Code: R53.83; Problem Code Type: ICD-10; Not Available [facility] 3 04:20:05 Pain in limb 86584134 Completed 202001/11/2023 Problem Code: M79.609; Problem Code Type: ICD-10; Not Available [facility] 3 04:20:05 Prosthet ic heart valve in situ 033600275 Completed 201510/14/2016 Problem Code: Z95.2; Problem Code Type: ICD-10; [facility]. 4 20:24:13 Dyspnea 036658616 Completed 201912/07/2020 Problem Code: R06.02; Problem Code Type: ICD-10; Not Available [facility] 3 04:20:07 Hyperlip idemia screenin g Completed 201701/16/2020 Problem Code: Z13.220; Problem Code Type: ICD-10; Not Available [facility] 3 04:20:08 Dyspnea 654383884 Completed 201612/07/2020 Problem Code: R06.02; Problem Code Type: ICD-10; Not Available [facility] 3 04:20:08 Attentio n deficit hyperact ivity disorder 098867510 Completed 201901/29/2020 Problem Code: F90.9; Problem Code Type: ICD-10; Not Available [facility] 3 04:20:08 Pneumoni a 232678918 Completed 202101/11/2023 Problem Code: J18.9; Problem Code Type: ICD-10; Not Available [facility] 3 04:20:08 Pulmonar y emphysem a 81599382 Completed 201603/18/2021 Problem Code: J43.9; Problem Code Type: ICD-10; Not Available [facility] 3 04:20:09 Dizzines s and giddines s 208900699 Active 2022 [facility]. 4 20:24:40 Adenomat ous polyp of colon 535727590 Active 2016 5yr recall [facility] 4 20:23:11 Tubular adenoma of colon 251321843 Active 2016 [facility]. 4 20:25:19 Dental abscess 546379580 Active 2023 LINDA VANG MD [address], [facility] [address] [place] [address] 4 12:01:41 Bite of arthropo d Active [address], [address] 4 12:26:05 Tear of skin 512957814 Active [address], [address] 4 13:17:55 Pruritic rash 52753525 Active [address], [address] 4 09:11:38 Anxiety disorder 701844764 Active [address], [address] 09:50:08 Anxiety disorder 028748426 Active [address], [address] 09:56:40 Problem Notes None recorded. Procedures Surgical History None recorded. Imaging Results Imaging Date Name Status [facility]Modified by [facility] Details LastModified Time 02/21/2022 imaging/diag nostic result completed Information not available 07/07/2024 21:46:47 12/11/2021 imaging/diag nostic result completed Information not available 07/07/2024 21:46:48 11/28/2020 imaging/diag nostic result completed Information not available 07/07/2024 21:47:20 11/29/2020 imaging/diag nostic result completed Information not available 07/07/2024 21:47:21 11/29/2020 imaging/diag nostic result completed Information not available 07/07/2024 21:47:22 11/29/2020 imaging/diag nostic result completed Information not available 07/07/2024 21:47:23 11/29/2020 imaging/diag nostic result completed Information not available 07/07/2024 21:47:24 12/02/2020 imaging/diag nostic result completed Information not available 07/07/2024 21:47:25 03/03/2021 imaging/diag nostic result completed Information not available 07/07/2024 21:47:26 03/05/2021 imaging/diag nostic result completed Information not available 07/07/2024 21:47:27 03/12/2022 CT, chest completed Information no t available 07/07/2024 21:47:38 03/11/2022 XR, chest completed Information no t available 07/07/2024 21:47:40 12/12/2021 imaging/diag nostic result completed Information not available 07/07/2024 21:47:41 09/11/2019 imaging/diag nostic result completed Information not available 07/07/2024 21:47:48 01/06/2022 imaging/diag nostic result completed Information not available 07/07/2024 21:48:54 01/21/2022 imaging/diag nostic result completed Information not available 07/07/2024 21:48:57 03/03/2022 imaging/diag nostic result completed Information not available 07/07/2024 21:49:21 02/21/2022 imaging/diag nostic result completed Information not available 07/07/2024 21:49:24 02/18/2022 imaging/diag nostic result completed Information not available 07/07/2024 21:49:31 02/18/2022 imaging/diag nostic result completed Information not available 07/07/2024 21:49:31 02/18/2022 imaging/diag nostic result completed Information not available 07/07/2024 21:49:33 11/26/2020 imaging/diag nostic result completed Information not available 07/07/2024 21:49:42 07/13/2020 imaging/diag nostic result completed Information not available 07/07/2024 21:50:06 07/29/2020 imaging/diag nostic result completed Information not available 07/07/2024 21:50:08 03/03/2021 imaging/diag nostic result completed Information not available 07/07/2024 21:50:29 03/03/2021 imaging/diag nostic result completed Information not available 07/07/2024 21:51:58 03/04/2021 imaging/diag nostic result completed Information not available 07/07/2024 21:51:59 03/04/2021 imaging/diag nostic result completed Information not available 07/07/2024 21:51:59 03/05/2021 imaging/diag nostic result completed Information not available 07/07/2024 21:52:00 11/30/2020 imaging/diag nostic result completed Information not available 07/07/2024 21:52:01 11/30/2020 imaging/diag nostic result completed Information not available 07/07/2024 21:52:02 11/30/2020 imaging/diag nostic result completed Information not available 07/07/2024 21:52:03 11/30/2020 imaging/diag nostic result completed Information not available 07/07/2024 21:52:04 12/01/2020 imaging/diag nostic result completed Information not available 07/07/2024 21:52:04 12/02/2020 imaging/diag nostic result completed Information not available 07/07/2024 21:52:05 12/02/2020 imaging/diag nostic result completed Information not available 07/07/2024 21:52:06 11/26/2020 imaging/diag nostic result completed Information not available 07/07/2024 21:52:07 11/26/2020 imaging/diag nostic result completed Information not available 07/07/2024 21:52:08 11/27/2020 imaging/diag nostic result completed Information not available 07/07/2024 21:52:09 11/27/2020 imaging/diag nostic result completed Information not available 07/07/2024 21:52:10 11/29/2020 imaging/diag nostic result completed Information not available 07/07/2024 21:52:11 11/29/2020 imaging/diag nostic result completed Information not available 07/07/2024 21:52:12 02/22/2022 imaging/diag nostic result completed Information not available 07/07/2024 21:52:12 12/11/2021 imaging/diag nostic result completed Information not available 07/07/2024 21:52:13 02/07/2023 imaging/diag nostic result completed Information not available 07/07/2024 21:52:15 11/22/2020 imaging/diag nostic result completed Information not available 07/07/2024 21:52:43 12/13/2021 imaging/diag nostic result completed Information not available 07/07/2024 21:52:49 11/22/2020 imaging/diag nostic result completed Information not available 07/07/2024 21:52:51 02/22/2021 imaging/diag nostic result completed Information not available 07/07/2024 21:52:52 05/29/2020 imaging/diag nostic result completed Information not available 07/07/2024 21:53:18 08/10/2020 imaging/diag nostic result completed Information not available 07/07/2024 21:53:20 08/10/2020 imaging/diag nostic result completed Information not available 07/07/2024 21:53:23 01/17/2020 imaging/diag nostic result completed Information not available 07/07/2024 21:53:26 Procedure Notes None recorded. Medical Equipment None Reported. Allergies Allergen ID Allergen Name Allergen Category Reaction Reaction Severity Criticality Documentation Date Start Date Code Code System Note Provider Name and Address Organization Details Recorded Time amiodaron e hydrochlo ride medicatio n Not available Not available Not available 09/01/2023202111 4 RxNorm Not Available [facility] 16:19:06 Medications Name Sig Start Date Stop [...] 2 hours prior to intercou rse active [facility] [place] Not Available Not Available Not Available [...] height Body mass index (BMI) Body weight Oxygen saturation Oxygen saturation in Arterial blood by Pulse oximetry Heart rate Respiratory rate Body temperature Systolic blood pressure Diastolic blood pressure Provider Name and Address Organization Details Last Updated DateTime 4 184.15 cm 23.7 kg/m2 54378.2 9 g 95 % 95 % 75 /min 18 /min 97.5 [degF] 122 mm[Hg] 60 mm[Hg] ALISSA LITTLE RN [place] - [facility]. 4 10:50:33 Date Recorded Body height Body mass index (BMI) Body weight Body temperature Oxygen saturation Oxygen saturation in Arterial blood by Pulse oximetry Heart rate Systolic blood pressure Diastolic blood pressure Provider Name and Address Organization Details Last Updated DateTime 4 184.15 cm 24.1 kg/m2 51220.6 3 g 97.4 [degF] 97 % 97 % 74 /min 120 mm[Hg] 64 mm[Hg] KIRSTEN PACK MA [facility] 4 12:14:08 Date Recorded Body height Body mass index (BMI) Body weight Respiratory rate Body temperature Oxygen saturation Oxygen saturation in Arterial blood by Pulse oximetry Heart rate Systolic blood pressure Diastolic blood pressure Provider Name and Address Organization Details Last Updated DateTime 4 184.15 cm 23.4 kg/m2 17424.6 6 g 18 /min 98.3 [degF] 97 % 97 % 81 /min 127 mm[Hg] 61 mm[Hg] KENNETH RUGGIERO MA [facility] 4 12:51:00 Date Recorded Body height Body mass index (BMI) Body weight Body temperature Heart rate Oxygen saturation Oxygen saturation in Arterial blood by Pulse oximetry Respiratory rate Systolic blood pressure Diastolic blood pressure Provider Name and Address Organization Details Last Updated DateTime 4 184.15 cm 23.3 kg/m2 91273.7 9 g 96.8 [degF] 80 /min 96 % 96 % 20 /min 130 mm[Hg] 62 mm[Hg] CARLEY JENKINS CMA [facility] 4 08:48:56 Date Recorded Body height Body mass index (BMI) Body weight Body temperature Heart rate Oxygen saturation Oxygen saturation in Arterial blood by Pulse oximetry Respiratory rate Systolic blood pressure Diastolic blood pressure Provider Name and Address Organization Details Last Updated DateTime 4 184.15 cm 21.2 kg/m2 43476.2 7 g 96.9 [degF] 88 /min 97 % 97 % 20 /min 128 mm[Hg] 66 mm[Hg] CARLEY JENKINS CMA [facility] 4 09:39:11 Social History Question Answer Notes LastModified by Organizat ion Details LastModified Time Tobacco Smoking Status Former Smoker ALISSA LITTLE RN null, [facility] 01/01/2024 10:53:45 When Did You Quit Smoking? 15+yearssinc elastcigaret te [email or web address] Information not available 01/01/2024 What Was The Date Of Your Most Recent Tobacco Screening? 07/17/2024 [email or web address] Information not available 07/17/2024 Has Tobacco Cessation Counseling Been Provided? No [email or web address] Information not available 01/01/2024 Do You Or Have You Ever Used Any Other Forms Of Tobacco Or Nicotine? No [email or web address] Information not available 01/01/2024 Sex: Male Functional [...] Time Tdap 05/01/[address], [place], [address], [facility] 05/01/2024 13:24:31 Tdap 02/20/2017 completed Not Available [facility] 04:50:22 Pneumococcal conjugate PCV 13 08/28/2019 completed Not Available [facility] 09/01/2023 04:50:22 Influenza, high-dose, trivalent, PF 07/26/2018 completed Not Available [facility] 09/01/2023 04:50:23 Influenza, high-dose, trivalent, PF 09/07/2017 completed Not Available [facility] 09/01/2023 04:50:23 Td(adult) unspecified formulation 09/22/2005 completed Not Available [facility] 09/01/2023 04:50:23 Influenza, MDCK, quadrivalent, PF 08/28/2019 completed Not Available [facility] 09/01/2023 04:50:24 Influenza, high-dose, quadrivalent, PF 12/19/2022 completed Not Available [facility] 09/01/2023 04:50:24 Influenza, high-dose, quadrivalent, PF 07/19/2021 completed Not Available [facility] 09/01/2023 04:50:24 COVID-19, mRNA, LNP-S, PF, 100 mcg/0.5mL dose or 50 mcg/0.25mL dose 12/15/2020 completed Not Available [facility] 09/01/2023 04:50:24 COVID-19, mRNA, LNP-S, PF, 100 mcg/0.5mL dose or 50 mcg/0.25mL dose 01/12/2021 completed Not Available [facility] 09/01/2023 04:50:25 COVID-19, mRNA, LNP-S, PF, 100 mcg/0.5mL dose or 50 mcg/0.25mL dose 01/25/2022 completed Not Available [facility] 09/01/2023 04:50:25 COVID-19, mRNA, LNP-S, PF, 100 mcg/0.5mL dose or 50 mcg/0.25mL dose 08/20/2021 completed Not Available [facility] 09/01/2023 04:50:25 pneumococcal polysaccharide PPV23 09/22/2005 completed Not Available [facility] 2022 04:50:26 influenza, unspecified formulation 07/22/2016 completed Not Available [facility] 09/01/2023 04:50:26 influenza, unspecified formulation 07/23/2020 completed Not Available [facility] 09/01/2023 04:50:26 Past Encounters Encounter ID Performer Location Encounter Start Date Encounter Closed Date Diagnosis/Indication Diagnosis SNOMED-CT Code Diagnosis ICD10 Code [id number] LINDA VANG MD [address] [address] 01/01/2024 10:43:09 01/01/2024 11:17:15 Insomnia 296098100 G47.00 Atrial fibrillation 4943 6004 I48.91 Prosthetic heart valve in situ 292053283 Z95.2 Dental abscess 229582051 K04.7 [id number] JESUS SHIPMAN MD [address] [address] 03/19/2024 11:51:33 03/19/2024 12:57:43 Bite of arthropod 582123061 W57.XXXA Prosthetic heart valve in situ 797879268 Z95.2 [id number] LINDA VANG MD [address] [address] 05/06/2024 08:35:25 05/06/2024 09:12:01 Insomnia 843115657 G47.00 Long-term current use of anticoagulant 596659355 Z79.01 Pruritic rash 34236070 L 28.2 [id number] JUDITH BILL PA-C [address] [place] [address] 05/01/2024 11:39:20 05/01/2024 13:20:50 Tear of skin 579278484 T14.8XXA [id number] CARLEY JENKINS CMA [address] [address] 07/17/2024 09:30:56 07/17/2024 10:17:04 Anxiety disorder 739033794 F41.9 Insomnia 037366011 G47.0 0 Long-term current use of anticoagulant 039267265 Z79.01 Health Concerns Section Related Observation LastModified by Organization Detai ls LastModified Time None Recorded Concern Status LastModified by Organization Details LastModified Time None Recorded Advance Directives Directive None Recorded Payers Encounter Date Sequence Insurance Name Policy Number Policy Moya Covered Member ID Moya Member ID Guarantor Name 01/01/2024 2 [place] [facility] [id number] [place] [id number] [place] Pisano Graves 01/01/2024 1 [place] [employer] [place] Pisano Graves [id number] [place] Pisano Graves 03/19/2024 2 [place] [facility] [id number] [place] Pisano Graves [id number] [place] Pisano Graves 03/19/2024 1 [place] [employer] [employer] [place] Pisano Graves [id number] [place] Pisano Graves 05/01/2024 2 [place] [facility] [id number] [place] Pisano Graves [id number] [place] Pisano Graves 05/01/2024 1 [place] [place] Pisano Graves [id number] [place] Neri 05/06/2024 2 [place] [facility] [id number] [place] Neri [id number] [place] Neri 05/06/2024 1 [place] [employer] [place] Neri [id number] [place] Neri Notes Date Note Type Note Provider Name and Address Organization Details Recorded Time 01/01/2024 text/html HPI Notes: Gordon is a 73-year-old gentleman with chronic atrial fibrillation who is anticoagulated on Coumadin. He also has prosthetic heart valve in situ he does home Coumadin test. He recently had to hold his Coumadin because he had identical his extraction he has restarted it and he is working on getting his INR is back to therapeutic range. He is always a little short of breath he has had problems with spontaneous pneumothorax has been seen at [facility] where they sclerosed the pleural lining to the an internal lining of the lung cavity. He still has some pain on the left side ribs where they inserted the chest tube. He states he has insomnia though it is really mostly he does not he gets up at the same time every morning. He said if he goes to bed at 9:00 you wake up before if he goes to bed at midnight he wakes up before. He does not seem to have a problem falling asleep. He denies any nausea vomiting and bowels are stable. He has had no black tarry stools no bloody stools he has had no bloody noses or blood in his urine. MD Christine [address], [place], [address], [facility]. 01/01/2024 12:05:28 03/19/2024 text/html HPI Notes: Cristi wilkerson walks in concerned about a tick bite. He noticed it some days ago, took a very picture with his cell phone. Concerned may have been a bull's-eye appearance to it. It seems improved, not sure To get may have been. Not sure how long it may have been attached. He has had no fevers chills myalgias rales or other infectious symptoms. Does state he feels a bit rundown recently. Is due for his INR today, asks us to get that done while he is here MD Christine [address], [place], [address], [facility], [facility]. 03/20/2024 20:13:30 05/01/2024 text/html HPI Notes: Gordon is a 74-year-old male who presents with injury to the left lower leg which occurred about 3 hours ago while he was moving his lawnmower which was turned off. He states he was lifting it and the metal front edge scraped down his leg causing an injury. He cleaned it with alcohol and then applied an antibiotic cream. He is on Coumadin. He has 2 prosthetic heart valves. His tetanus was last administered in 2017. He does endorse that the bleeding was pretty easily controlled. [address], [place], [address], [facility], [facility]. 05/01/2024 13:28:40 05/06/2024 text/html HPI Notes: Gordon is a [...] no change in his bowels or urination. MD Christine [address], [place], [address], [facility], [facility]. 05/06/2024 12:30:53
--- OUTSIDE RECORDS SUMMARY | 2024-07-17 21:46 | XMS_ITS | Encounter Summary ---
Author Organization [facility] Address [address] [place] [address] Care Team Providers Care Diamond Mounter Name Role Phone Linda Mccray MD Primary Care Provider [phone] Encounter Details Date Type Department Care Team ([facility] st Contact Info) Description 03/25/2024 Lab Requisition [facility] Pathology & Laboratory Medicine - [facility] [address] [place] [address] Manish Ashley MD [address] [place] [phone] Encounter for other general examination Social History Tobacco Use Types Packs/Day Years Used Date Smoking Tobacco: Never Assessed Interpersonal Safety Answer Date Record ed Physically Hurt Never 05/25/2020 Verbally Threaten Not on file 05/25/2020 Sex and Gender Information Value Date Recorded Sex Assigned at Not on file Gender Identity Male 05/12/2020 9:42 EDT Sexual Orientation Not on file documented as of this encounter Plan of Treatment Not on file documented as of this encounter Procedures Procedure Name Priority Date/Time Associated Diagnosis Comments MOLD IDENTIFICATION Today 02/23/2024 9 :50 EDT Encounter for other general examination documented in this encounter Results * (ABNORMAL) MOLD IDENTIFICATION (02/23/2024 9:50 EDT) 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 Mold COLLECTION OF INDUCED SPUTUM / Unknown 02/23/2024 9:50 EDT 03/25/2024 9:18 EDT Manish Ashley MD MICROBIOLOGY - GENER AL ORDERABLES [facility] [address] [place], [place] [id number] documented in this encounter Visit Diagnoses Diagnosis Encounter for other general examination documented in this encounter Care Teams Diamond Mounter Relationship Specialty Start Date End Date Linda Mccray MD [address] [place] [address] PCP - General 05/12/20 documented as of this encounter
--- OUTSIDE RECORDS SUMMARY | 2024-07-17 21:46 | XMS_ITS | Encounter Summary ---
Author Organization [facility] Address [address] [place] [address] Care Team Providers Care Home Hospice Aide Name Role Phone Linda Mccray MD Primary Care Provider [phone] Encounter Details Date Type Department Care Team (Late st Contact Info) Description 03/25/2024 Lab Requisition [facility] Pathology & Laboratory Medicine - [facility] [address] [place] [address] Manish Ashley MD [address] [place] [phone] Social History Tobacco Use Types Packs/Day Years [...] on file documented as of this encounter Visit Diagnoses Not on filedocumented in this encounter Care Teams Home Hospice Aide Relationship Specialty Start Date End Date Linda Mccray MD [address] [place] [address] PCP - General 05/12/20 documented as of this encounter
--- OUTSIDE RECORDS SUMMARY | 2024-07-17 21:46 | XMS_ITS | Continuity of Care Document ---
Author Organization [place] [facility], [facility] Address [address] [facility] [address] [place] [address] Assessment No assessment recorded. Plan of Treatment Reminders Order Date Submit Date Provider Last Modified By Organization Details Last Modified Time Details Appointments Office Visit 2023 09:40A M Not available Not available Not available Counselin g 60 2023 10:50A M Not available Not available Not available Office Visit 2023 10:20A M Not available Not available Not available Office Visit 2023 11:30A M Not available Not available Not available Office Visit 2024 08:00A M Not available Not available Not available Lab None recorded. Referral None recorded. Procedures None recorded. Surgeries None recorded. Imaging None recorded. Medication Orders cephalexi n 500 mg capsule 2023 [address] [id number], [address] [place] [address], [id number], 05/06/2024 08:49:39 Patient TargetsNo targets recorded. Patient Instructions Encounter Date Encounter Id Patient Instructions Last Modified By Organization Details Last Modified Time 05/01/2024 [id number] 1. The skin tear at the bottom [...] Medicine Referral for Insomnia Referring Physician: Linda Mccray, [facility], Encounter Date: 05/06/2024 Behavioral Psychotherapy Ref erral for Anxiety disorder Referring Physician: Linda Mccray [facility], Encounter Date: 07/17/2024 Results Created Date [...] Time Prosthet ic heart valve in situ 191232201 Active 2015 [facility] 4 20:24:13 Insomnia 288818212 Active 2015 [facility] 4 20:23:51 History of respirat ory disease 818691293 Completed 201512/28/2023 03/18/20 21 - Comments only [...] Z87.09; Problem Code Type: ICD-10; [facility] 4 20:23:39 Diarrhea 07561329 Active 2015 [place] [facility] 4 20:22:13 Long-ter m current use of anticoag ulant 877552641 Active 2015 [facility] 4 20:23:56 Pain of right shoulder joint 77895157642 622624 Active 2016 [facility] 4 20:24:06 Elevated blood-pr essure reading without diagnosi s of hyperten sussy 012775421 Completed 201604/15/2017 Problem Code: R03.0; Problem Code Type: ICD-10; Not Available [facility] 3 04:20:00 Pain of left shoulder joint 25153843148 080340 Active 2017 [facility] 4 20:24:01 Adult health examinat ion Active 2018 [facility] 4 20:21:41 Cardiac pacemake r in situ 412378304 Active 2019 [facility] 4 20:22:01 Attentio n deficit hyperact ivity disorder , predomin antly inattent reuben type 49278932 Active 2019 [facility] 4 20:21:55 History of polyp of colon 726375251 Completed 201612/28/2023 Problem Code: Z86.010; Problem Code Type: ICD-10; [facility] 4 20:23:16 Retentio n of urine 530344053 Active 2020 [facility] 4 20:24:18 Urinary incontin ence 298409492 Active 2020 [facility] 4 20:24:27 Acute upper respirat ory infectio n 17656666 Completed 202006/03/2021 Problem Code: J06.9; Problem Code Type: ICD-10; Not Available [facility] 3 04:20:01 External hordeolu m 8837655 Completed 202009/20/2021 Problem Code: H00.019; Problem Code Type: ICD-10; Not Available [facility] 3 04:20:01 Dysuria 65154680 Completed 202009/20/2021 Problem Code: R30.0; Problem Code Type: ICD-10; Not Available [facility] 3 04:20:01 Atrial fibrilla tion 00323681 Active 2021 [facility] 4 20:21:49 Hyperlip idemia 56386598 Active 2022 [facility] 4 20:23:46 Acute conjunct ivitis 40248404 Completed 202212/28/2023 Problem Code: H10.30; Problem Code Type: ICD-10; [facility] 4 20:21:34 Muscle weakness 77214137 Completed 201812/07/2020 Problem Code: M62.81; Problem Code Type: ICD-10; Not Available [facility] 3 04:20:02 Exposure to communic able disease Completed 202008/02/2021 Problem Code: Z20.9; Problem Code Type: ICD-10; Not Available [facility] 3 04:20:03 Acute sinusiti s 12012859 Completed 202004/01/2021 Problem Code: J01.90; Problem Code Type: ICD-10; Not Available [facility] 3 04:20:03 Superfic ial mycosis 884056363 Completed 201608/28/2019 Problem Code: B36.9; Problem Code Type: ICD-10; Not Available [facility] 3 04:20:03 Left lower quadrant pain 448735492 Completed 201801/16/2020 Problem Code: R10.32; Problem Code Type: ICD-10; Not Available [facility] 3 04:20:03 Pain of toe of left foot 85729559040 9108 Completed 201808/28/2019 Problem Code: M79.675; Problem Code Type: ICD-10; Not Available [facility] 3 04:20:04 Fatigue 82193007 Completed 201601/16/2020 Problem Code: R53.83; Problem Code Type: ICD-10; Not Available [facility] 3 04:20:05 Pain in limb 59623039 Completed 202001/11/2023 Problem Code: M79.609; Problem Code Type: ICD-10; Not Available [facility] 3 04:20:05 Prosthet ic heart valve in situ 635785155 Completed 201510/14/2016 Problem Code: Z95.2; Problem Code Type: ICD-10; [facility] 4 20:24:13 Dyspnea 789064531 Completed 201912/07/2020 Problem Code: R06.02; Problem Code Type: ICD-10; Not Available [facility] 3 04:20:07 Hyperlip idemia screenin g Completed 201701/16/2020 Problem Code: Z13.220; Problem Code Type: ICD-10; Not Available [facility] 3 04:20:08 Dyspnea 903378612 Completed 201612/07/2020 Problem Code: R06.02; Problem Code Type: ICD-10; Not Available [facility] 3 04:20:08 Attentio n deficit hyperact ivity disorder 454911818 Completed 201901/29/2020 Problem Code: F90.9; Problem Code Type: ICD-10; Not Available [facility] 3 04:20:08 Pneumoni a 365456044 Completed 202101/11/2023 Problem Code: J18.9; Problem Code Type: ICD-10; Not Available [facility] 3 04:20:08 Pulmonar y emphysem a 20377493 Completed 201603/18/2021 Problem Code: J43.9; Problem Code Type: ICD-10; Not Available [facility] 3 04:20:09 Dizzines s and giddines s 506754163 Active 2022 [facility] 4 20:24:40 Adenomat ous polyp of colon 027432845 Active 2016 5yr recall [facility] 4 20:23:11 Tubular adenoma of colon 002693897 Active 2016 [facility] 4 20:25:19 Dental abscess 849950880 Active [address], [address] 4 12:01:41 Bite of arthropo d Active [address], [place] [address] , [facility] 4 12:26:05 Tear of skin 373146053 Active [address], [place] [address] , [facility] 4 13:17:55 Pruritic rash 27505926 Active [address], [place] [address] , [facility] 4 09:11:38 Anxiety disorder 872192760 Active [address], [facility] [address] , [facility] 09:50:08 Anxiety disorder 355809603 Active [address], [facility] [address] [address] 4 09:56:40 Problem Notes None recorded. Medical Equipment None Reported. Allergies Allergen ID Allergen Name Allergen Category Reaction Reaction Severity Criticality Documentation Date Start Date Code Code System Note Provider Name and Address Organization Details Recorded Time 26759 amiodaron e hydrochlo ride medicatio n Not available Not available Not available 09/01/20232021 35991 4 RxNorm Not Available [facility] 3 16:19:06 Medications Name Sig Start Date Stop [...] 2 hours prior to intercou rse active [facility] [place] Not Available Not Available Not Available [...] Updated DateTime 4 184.15 cm 23.4 kg/m2 67681.6 6 g 18 /min 98.3 [degF] 97 % 97 % 81 /min 127 mm[Hg] 61 mm[Hg] KENNETH RUGGIERO MA [facility] 12:51:00 Social History Question Answer Notes LastModified by Organizat ion Details LastModified Time Tobacco Smoking Status Former Smoker ALISSA LITTLE RN null, [facility] 01/01/2024 10:53:45 When Did You Quit Smoking? 16+yearssinc elastcigaret te [email or web address] Information not available 01/01/2024 What Was The Date Of Your Most Recent Tobacco Screening? 07/17/2024 [email or web address] Information not available 07/17/2024 Has Tobacco Cessation Counseling Been Provided? No [email or web address] Information not available 01/01/2024 Do You Or Have You Ever Used Any Other Forms Of Tobacco Or Nicotine? No [email or web address] Information not available 01/01/2024 Sex: Male Functional [...] Organization Details Recorded Time Tdap 05/01/2024 completed JUDITH BILL PA-C [address], [place], [address], [facility] 05/01/2024 13:24:31 Tdap 02/20/2017 completed Not Available [facility] 04:50:22 Pneumococcal conjugate PCV 13 08/28/2019 completed Not Available [facility] 09/01/2023 04:50:22 Influenza, high-dose, trivalent, PF 07/26/2018 completed Not Available [facility] 09/01/2023 04:50:23 Influenza, high-dose, trivalent, PF 09/07/2017 completed Not Available [facility] 09/01/2023 04:50:23 Td(adult) unspecified formulation 09/22/2005 completed Not Available [facility] 09/01/2023 04:50:23 Influenza, MDCK, quadrivalent, PF 08/28/2019 completed Not Available [facility] 09/01/2023 04:50:24 Influenza, high-dose, quadrivalent, PF 12/19/2022 completed Not Available [facility] 09/01/2023 04:50:24 Influenza, high-dose, quadrivalent, PF 07/19/2021 completed Not Available [facility] 09/01/2023 04:50:24 COVID-19, mRNA, LNP-S, PF, 100 mcg/0.5mL dose or 50 mcg/0.25mL dose 12/15/2020 completed Not Available [facility] 09/01/2023 04:50:24 COVID-19, mRNA, LNP-S, PF, 100 mcg/0.5mL dose or 50 mcg/0.25mL dose 01/12/2021 completed Not Available [facility] 09/01/2023 04:50:25 COVID-19, mRNA, LNP-S, PF, 100 mcg/0.5mL dose or 50 mcg/0.25mL dose 01/25/2022 completed Not Available [facility] 09/01/2023 04:50:25 COVID-19, mRNA, LNP-S, PF, 100 mcg/0.5mL dose or 50 mcg/0.25mL dose 08/20/2021 completed Not Available [facility] 09/01/2023 04:50:25 pneumococcal polysaccharide PPV23 09/22/2005 completed Not Available [facility] 2022 04:50:26 influenza, unspecified formulation 07/22/2016 completed Not Available [facility] 09/01/2023 04:50:26 influenza, unspecified formulation 07/23/2020 completed Not Available [facility] 09/01/2023 04:50:26 Past Encounters Encounter ID Performer Location Encounter Start Date Encounter Closed Date Diagnosis/Indication Diagnosis SNOMED-CT Code Diagnosis ICD10 Code [id number] JUDITH BILL PA-C [address] [address] 05/01/2024 11:39:20 05/01/2024 13:20:50 Tear of skin 319888915 T14.8XXA Health Concerns Section Related Observation LastModified by Organization Detai ls LastModified Time None Recorded Concern Status LastModified by Organization Details LastModified Time None Recorded Payers Encounter Date Sequence Insurance Name Policy Number Policy Moya Covered Member ID Moya Member ID Guarantor Name 05/01/2024 2 [place] [facility] [id number] [place] Pisano Daron [id number] [place] Neri 05/01/2024 1 [place]ATIONAL [employer] [place] Norris Daron [id number] [place] Neri Notes Date Note Type Note Provider Name and Address Organization Details Recorded Time 05/01/2024 text/html HPI Notes: Gordon is a [...] that the bleeding was pretty easily controlled. JUDITH BILL PA-C [address], [place], [address], [facility]. 05/01/2024 13:28:40
--- OUTSIDE RECORDS SUMMARY | 2024-07-17 21:46 | XMS_ITS | Encounter Summary ---
Author Organization [facility] Address [address] [place] [address] Care Team Providers Care Transaction Processor Name Role Phone Linda Mccray MD Primary Care Provider [phone] Encounter Details Date Type Department Care Team ([facility] st Contact Info) Description 02/22/2024 Lab Requisition [facility] Pathology & Laboratory Medicine - [facility] [address] [place] [address] Outr Resulting Lab, Provider Social History Tobacco Use Types Packs/Day Years [...] Procedure Name Priority Date/Time Associated Diagnosis Comments IMMUNOGLOBULINS Routine 02/22/2024 15:15 EDT documented in this encounter Results * IMMUNOGLOBULINS (02/22/2024 15:15 EDT) IgG 901 610 - 1,616 mg/dL 02/23/2024 9:39 EDT [facility] IgA 203 85 - 499 mg/dL 02/23/2024 9:39 EDT [facility] IgM 99 35 - 242 mg/dL 02/23/2024 9:39 EDT [facility] Blood VENOUS BLOOD / Unknown 02/22/2024 15:15 EDT 02/22/2024 21:30 EDT Provider Outr Resulting Lab CHEMISTRY & BLOOD GAS ORDERABLES [facility] [address] [place] [address] documented in this encounter Visit Diagnoses Not on filedocumented in this encounter Care Teams Transaction Processor Relationship Specialty Start Date End Date Linda Mccray MD [address] [place] [address] PCP - General 05/12/20 documented as of this encounter
--- OUTSIDE RECORDS SUMMARY | 2024-07-17 21:46 | XMS_ITS | Encounter Summary ---
Author Organization [facility] Address [address] [place] [address] Care Team Providers Care Real Estate Asset Manager Name Role Phone Linda Mccray MD Primary Care Provider [phone] Encounter Details Date Type Department Care Team ([facility] st Contact Info) Description 11/30/[address] [facility] Pathology & Laboratory Medicine - [facility] [address] [place], [place] [address] Outr Resulting Lab, Provider Social History Tobacco [...] Procedure Name Priority Date/Time Associated Diagnosis Comments ZZCOVID-19 TEST [facility] PCR Today 11/29/2020 21:20 EST COVID-19 TESTING Routine 11/29/2020 21:2 0 EST documented in this encounter Results * COVID-19 TEST [facility] PCR (11/29/2020 21:20 EST) Swab ENTIRE NASOPHARYNX / Unknown 11/29/2020 21:20 EST 11/30/2020 17:03 EST Provider Outr Resulting Lab MICROBIOLOGY - GENERAL ORDERABLES [facility] [address] [place] [address] * COVID-19 TESTING (11/29/2020 21:20 EST) COVID-19 rt-PCR Result Negative Negative 11/30/2020 22:11 EST [facility] Comment: This test has not been FDA cleared or approved. This test has been authorized by FDA under an EUA for use by authorized laboratories. This test has been authorized only for detection of nucleic acid from 2019-nCoV, not for any other viruses or pathogens. This test is only authorized for the duration of the declaration that circumstances exist justifying the authorization of emergency use of in vitro diagnostic tests for detection and/or diagnosis of 2019-nCoV under section 564(b)(1) of Act, 21 U.S.C ?? 360bbb-3(b) (1), unless the authorization is terminated or revoked sooner. Negative results do not preclude 2019-nCoV infection and should not be used as the sole basis for treatment or other patient management decisions. Negative results must be combined with clinical observations, patient history, and epidemiological information. Performed on the [employer] Fusion instrument Performing Lab [facility] Lab 11/30/2020 22:11 EST [facility] Swab 11/29/2020 21:2 0 EST 11/30/2020 17:03 EST Provider Outr Resulting Lab MICROBIOLOGY - GENERAL ORDERABLES [facility] [address] [place] [address] documented in this encounter Visit Diagnoses Not on filedocumented in this encounter Care Teams Real Estate Asset Manager Relationship Specialty Start Date End Date Linda Mccray MD [address] [place] [id number] PCP - General 05/12/20 documented as of this encounter
--- OUTSIDE RECORDS SUMMARY | 2024-07-17 21:46 | XMS_ITS | Encounter Summary ---
Author Organization [facility] Address [address] [place] [address] Care Team Providers Care Can Feeder Name Role Phone Linda Mccray MD Primary Care Provider [phone] Reason for Visit * Reason Onset Date Comments Appointment Related 06/01/2020 Encounter Details Date Type Department Care Team ([facility] st Contact Info) Description 06/01/2020 Telephone [facility] Cardiology Clinic [address] [place] [address] Carlos Manuel Singer, LYNN [address] [facility] [address] [place] [address] Appointment Related Social History Tobacco Use Types Packs/Day Years Used Date Smoking Tobacco: Never Assessed Interpersonal Safety Answer Date Record ed Physically Hurt Never 05/25/2020 Verbally Threaten Not on file 05/25/2020 Sex and Gender Information Value Date Recorded Sex Assigned at Not on file Gender Identity Male 05/12/2020 9:42 EDT Sexual Orientation Not on file documented as of this encounter Miscellaneous Notes * Telephone Encounter - Crystal García - 06/10/2020 1116 EDT Elaine called back from [facility]. She confirmed that [facility] will be taking over pt's remote checks going forward. I did go into [facility] and initiate a transfer to [facility] at this time. Elaine also asked that I fax over the last pacer check we did on pt. I faxed over his remote checks done on 04/22 and 05/29. * Telephone Encounter - Crystal García - 06/09/2020 1557 EDT I called [facility] and left a msg asking for a call back to find out who will be following this pt's remote transmission as he is nearing [facility] and needs to be transferred to the new remote site for whomever will be following the remotes. * Telephone Encounter - Carlos Manuel Singer APRN - 06/02/2020 1658 EDT Can you contact the pacer clinic and have them transfer his remote and make sure they are aware of his battery nearing [facility]. * Telephone Encounter - Crystal García - 06/02/2020 1040 EDT Patient is scheduled for a Pacer appt on 06/24 at [facility] and a general Cardiology appt on 08/06 at [facility] well. * Telephone Encounter - Crystal García - 06/01/2020 1624 EDT I called [facility] and left a msg asking for a call back to find out if pt has been scheduled in there office yet. * Telephone Encounter - Carlos Manuel Singer APRN - 06/01/2020 0947 EDT Crystal, battery nearing [facility]ERA 3 months. Please keep him on our monthly list. He is supposedly transferring care back to [facility] can we check on this status. ?will [facility] take over monitoring? documented in this encounter Plan of Treatment Not on file documented as of this encounter Visit Diagnoses Not on filedocumented in this encounter Care Teams Can Feeder Relationship Specialty Start Date End Date Linda Mccray MD [address] [place] [address] PCP - General 05/12/20 documented as of this encounter
--- OUTSIDE RECORDS SUMMARY | 2024-07-17 21:46 | XMS_ITS | Referral Summary ---
Author Organization [facility] Address [address] [place] [address] Care Team Providers Care Javascript Ui Developer Name Role Phone Linda Mccray MD Primary Care Provider [phone] Medications Medication Sig Dispensed Refills Start Date End Date Status dextroamphetamine-amphe tamine (ADDERALL) 10 mg tablet Take 10 mg by mouth daily. 02/03/2020 Active warfarin (COUMADIN) 10 mg tablet Take 10 mg by mouth daily. 03/25/2020 Active Active Problems Problem Noted Date Diagnosed Date Cardiac pacemaker in situ 05/08/2020 Current use of solar design engineer anticoagulation 020 Heart block 05/08/2020 S/P MVR (mitral valve replacement) 05/08/2020 Aortic insufficiency 05/08/2020 Chronic bullous emphysema ([facility]) 11/18/2016 Clostridium difficile colitis 11/07/2016 Encounter for screening colonoscopy 11/07/2016 Social History Tobacco Use Types Packs/Day Years Used Date Smoking Tobacco: Never Assessed Interpersonal Safety Answer Date Record ed Physically Hurt Never 05/25/2020 Verbally Threaten Not on file 05/25/2020 Sex and Gender Information Value Date Recorded Sex Assigned at Not on file Gender Identity Male 05/12/2020 9:42 EDT Sexual Orientation Not on file Plan of Treatment Not on file Care Teams Javascript Ui Developer Relationship Specialty Start Date End Date Linda Mccray MD [address] [place] [address] PCP - General 05/12/20
--- OUTSIDE RECORDS SUMMARY | 2024-07-17 21:46 | XMS_ITS | Encounter Summary ---
Author Organization [facility] Address [address] [place] [address] Care Team Providers Care Guest Relations Officer Name Role Phone Linda Mccray MD Primary Care Provider [phone] Encounter Details Date Type Department Care Team ([facility] st Contact Info) Description 06/22/2021 Lab Requisition [facility] Pathology & Laboratory Medicine - [address] [address] Outr Resulting Lab, Provider Social History Tobacco [...] Comments ZZCOVID-19 TEST [facility] PCR Today 06/21/2021 13:55 EDT COVID-19 TESTING Routine 06/21/2021 13:5 5 EDT documented in this encounter Results * COVID-19 TEST [facility] PCR (06/21/2021 13:55 EDT) Swab ENTIRE NASOPHARYNX / Unknown 06/21/2021 13:55 EDT 06/22/2021 22:31 EDT Provider Outr Resulting Lab MICROBIOLOGY - GENERAL ORDERABLES [facility] [address] [place] [address] * COVID-19 TESTING (06/21/2021 13:55 EDT) COVID-19 rt-PCR Result Negative Negative 06/23/2021 14:01 EDT [facility] Comment: This test has not [...] history, and epidemiological information. Performed on the blinkboxher Fusion instrument Performing Lab [place] [facility] Lab 06/23/2021 14:01 EDT [facility] Swab 06/21/2021 13:5 5 EDT 06/22/2021 22:31 EDT Provider Outr Resulting Lab MICROBIOLOGY - GENERAL ORDERABLES [facility] [address] [place] [address] documented in this encounter Visit Diagnoses Not on filedocumented in this encounter Care Teams Guest Relations Officer Relationship Specialty Start Date End Date Linda Mccray MD [address] [place] [address] PCP - General 05/12/20 documented as of this encounter
--- OUTSIDE RECORDS SUMMARY | 2024-07-17 21:46 | XMS_ITS | Encounter Summary ---
Author Organization [facility] Address [address] [place] [address] Care Team Providers Care Manager Digital Ad Operations Name Role Phone Linda Mccray MD Primary Care Provider [phone] Encounter Details Date Type Department Care Team ([facility] st Contact Info) Description 03/28/2022 11:30 EDT Phlebotomy Only [facility] Laboratory Services - [address] [address] Timber Appraiser, [facility] Atrial fibrillation ([facility]) (Primary Dx) Social History Tobacco Use Types Packs/Day Years [...] Procedure Name Priority Date/Time Associated Diagnosis Comments PROTIME Routine 03/28/2022 11:32 EDT Atrial fibrillation ([facility]) documented in this encounter Results * (ABNORMAL) PROTIME (03/28/2022 11:32 EDT) I.N.R. 2.2(H) 0.9 - 1.1 Ratio 03/28/2022 12:[address] [facility] Pro Time 25.8(H) 10.4 - 12.6 secs 03/28/2022 12:[address] [facility] Blood VENOUS BLOOD / Unknown Venipuncture / Unknown 03/28/2022 11:32 EDT 03/28/2022 11:[address] [facility] - 03/28/2022 12:32 EDT Moderate Intensity Coumadin INR = 2.0-3.0 Adjustments in anticoagulant therapy dose should be based on the INR and NOT on the Protime. Linda Mccray MD HEMATOLOGY & PF4 ORD ERABLES [facility] Organization Address City/State/ZIP Co de Phone Number [facility] [address] [place] [address] documented in this encounter Visit Diagnoses Diagnosis Atrial fibrillation ([facility] Primary Atrial fibrillation documented in this encounter Care Teams Manager Digital Ad Operations Relationship Specialty Start Date End Date Linda Mccray MD [address] [place] [address] PCP - General 05/12/20 documented as of this encounter
--- OUTSIDE RECORDS SUMMARY | 2024-07-17 21:46 | XMS_ITS | Encounter Summary ---
Author Organization [facility] Address [address] [place] [address] Care Team Providers Care Computer Forensics Analyst Name Role Phone Linda Mccray MD Primary Care Provider [phone] Encounter Details Date Type Department Care Team ([facility] st Contact Info) Description 05/03/2021 Lab Requisition [facility] Pathology & Laboratory Medicine - [facility] [address] [place], [place] [address] Outr Resulting Lab, Provider Social History Tobacco [...] Comments ZZCOVID-19 TEST [facility] PCR Today 05/03/2021 11:40 EDT COVID-19 TESTING Routine 05/03/2021 11:4 0 EDT documented in this encounter Results * COVID-19 TEST [facility] PCR (05/03/2021 11:40 EDT) Swab ENTIRE NASOPHARYNX / Unknown 05/03/2021 11:40 EDT 05/03/2021 20:34 EDT Provider Outr Resulting Lab MICROBIOLOGY - GENERAL ORDERABLES [facility] [address] [place] [address] * COVID-19 TESTING (05/03/2021 11:40 EDT) COVID-19 rt-PCR Result Negative Negative 05/04/2021 17:29 EDT [facility] Comment: This test has [...] clinical observations, patient history, and epidemiological information. Testing was performed using the sheri SARS-CoV-2 assay ([employer] on the Sheri 6800 System Performing Lab Sheri [address] [facility] Lab 05/04/2021 17:29 EDT [facility] Swab 05/03/2021 11:4 0 EDT 05/03/2021 20:34 EDT Provider Outr Resulting Lab MICROBIOLOGY - GENERAL ORDERABLES [facility] [address] [place] [address] documented in this encounter Visit Diagnoses Not on filedocumented in this encounter Care Teams Computer Forensics Analyst Relationship Specialty Start Date End Date Linda Mccray MD [address] [place] [address] PCP - General 05/12/20 documented as of this encounter
--- OUTSIDE RECORDS SUMMARY | 2024-07-17 21:46 | XMS_ITS | Clinical Summary ---
Author Organization [facility] Address [address] [place] [address] Care Team Providers Care Supervisor Transferring And Boxing Name Role Phone Linda Mccray MD Primary Care Provider [phone] Medications Medication Sig Dispensed Refills Start Date End Date Status dextroamphetamine-amphe tamine (ADDERALL) 10 mg tablet Take 10 mg by mouth daily. 02/03/2020 Active warfarin (COUMADIN) 10 mg tablet Take 10 mg by mouth daily. 03/25/2020 Active Active Problems Problem Noted Date Diagnosed Date Cardiac pacemaker in situ 05/08/2020 Current use of terminal gauger anticoagulation 020 Heart block 05/08/2020 S/P MVR (mitral valve replacement) 05/08/2020 Aortic insufficiency 05/08/2020 Chronic bullous emphysema ([facility]) 11/18/2016 Clostridium difficile colitis 11/07/2016 Encounter for [...] Orientation Not on file Plan of Treatment Health Maintenance Due Date Last Done Comments Hepatitis C Screen 1950 RSV Immunization ( o r 60+ Years) (1 - 1-dose 60+ series) 2009 Fall Risk Screening 2014 COVID-19 Vaccine (2022-24 season) 2023 Care Teams Supervisor Transferring And Boxing Relationship Specialty Start Date End Date Linda Mccray MD [address] [place] [address] PCP - General 05/12/20
--- OUTSIDE RECORDS SUMMARY | 2024-07-17 21:46 | XMS_ITS | Encounter Summary ---
Author Organization [facility] Address [address] [place] [address] Care Team Providers Care Quality Assurance Specialist Name Role Phone Linda Mccray MD Primary Care Provider [phone] Reason for Visit * Reason Onset Date Comments Other 05/20/2020 Pt requested his records be faxed to [facility] Encounter Details Date Type Department Care Team (Late st Contact Info) Description 05/20/2020 Telephone [facility] Cardiology Clinic [address] [place] [address] Carlos Manuel Singer, LYNN [address] [facility] [address] [place] [address] Other (Pt requested his records be faxed to [facility]) Social History Tobacco Use Types Packs/Day Years Used Date Smoking Tobacco: Never Assessed Sex and Gender Information Value Date Recorded Sex Assigned at Not on file Gender Identity Male 05/12/2020 9:42 EDT Sexual Orientation Not on file documented as of this encounter Miscellaneous Notes * Telephone Encounter - Crystal García - 05/20/2020 1615 EDT Office note from 07/2018 and last several remote pacer checks faxed to [facility] Cardiology. I asked them to please contact pt to get an appt scheduled with them so he may F/U in [facility] again * Telephone Encounter - Crystal García - 05/20/2020 1548 EDT Pt called in requesting we send a referral and his records to [facility] cardiology since Dr. Cara mcneilletting done in our office. documented in this encounter Plan of Treatment Not on file documented as of this encounter Visit Diagnoses Not on filedocumented in this encounter Care Teams Quality Assurance Specialist Relationship Specialty Start Date End Date Linda Mccray MD [address] [place] [address] PCP - General 05/12/20 documented as of this encounter
--- OUTSIDE RECORDS SUMMARY | 2024-07-17 21:46 | XMS_ITS | Encounter Summary ---
Author Organization [facility] Address [address] [place] [address] Care Team Providers Care Costume Shop Coordinator Name Role Phone Linda Mccray MD Primary Care Provider [phone] Encounter Details Date Type Department Care Team ([facility] st Contact Info) Description 03/20/2024 Lab Requisition [facility] Pathology & Laboratory Medicine - [facility] [address] [place], [place] [address] Outr Resulting Lab, Provider Social History Tobacco [...] Procedure Name Priority Date/Time Associated Diagnosis Comments LYME AB Routine 03/19/2024 12:45 EDT documented in this encounter Results * LYME AB (03/19/2024 12:45 EDT) Lyme Ab Negative Negative 03/21/2024 10:01 EDT [facility] Blood VENOUS BLOOD / Unknown 03/19/2024 12:45 EDT 03/20/2024 16:38 EDT Provider Outr Resulting Lab IMMUNOLOGY A ND SEROLOGY ORDERABLES [facility] [address] [place] [address] documented in this encounter Visit Diagnoses Not on filedocumented in this encounter Care Teams Costume Shop Coordinator Relationship Specialty Start Date End Date Linda Mccray MD [address] [place] [address] PCP - General 05/12/20 documented as of this encounter
--- OUTSIDE RECORDS SUMMARY | 2024-07-17 21:46 | XMS_ITS | Encounter Summary ---
Author Organization [facility] Address [address] [place] [address] Care Team Providers Care Public Area Supervisor Name Role Phone Linda Mccray MD Primary Care Provider [phone] Encounter Details Date Type Department Care Team ([facility] st Contact Info) Description 06/01/2021 Lab Requisition [facility] Pathology & Laboratory Medicine - [facility] [address] [place], [place] [address] Outr Resulting Lab, Provider Social History Tobacco [...] Comments ZZCOVID-19 TEST [facility] PCR Today 05/31/2021 13:25 EDT COVID-19 TESTING Routine 05/31/2021 13:2 5 EDT documented in this encounter Results * COVID-19 TEST [facility] PCR (05/31/2021 13:25 EDT) Swab ENTIRE NASOPHARYNX / Unknown 05/31/2021 13:25 EDT 06/01/2021 15:46 EDT Provider Outr Resulting Lab MICROBIOLOGY - GENERAL ORDERABLES [facility] [address] [place] [address] * COVID-19 TESTING (05/31/2021 13:25 EDT) COVID-19 rt-PCR Result Negative Negative 06/02/2021 13:31 EDT [facility] Comment: This test [...] clinical observations, patient history, and epidemiological information. This test was developed and its performance characteristics determined by [facility]. It has not been cleared or approved by the US Food and Drug Administration. FDA does not require this test to go through premarket FDA review. This test is used for clinical purposes. It should not be regarded as investigational or for research. This laboratory is certified under the Clinical Laboratory Improvement Amendments (CLIA) as qualified to perform high complexity clinical laboratory testing. This test is based on the [facility] COVID-19 Emergency Use Authorization (EUA) assay, with minor modification as defined by the FDA Performed on the [employer] 7 Pro RT-PCR System. Performing Lab [facility] Lab 06/02/2021 13:31 EDT [facility] Swab 05/31/2021 13:2 5 EDT 06/01/2021 15:46 EDT Provider Outr Resulting Lab MICROBIOLOGY - GENERAL ORDERABLES [facility] [address] [place] [address] documented in this encounter Visit Diagnoses Not on filedocumented in this encounter Care Teams Public Area Supervisor Relationship Specialty Start Date End Date Linda Mccray MD [address] [place] [address] PCP - General 05/12/20 documented as of this encounter
--- OUTSIDE RECORDS SUMMARY | 2024-07-17 21:46 | XMS_ITS | Encounter Summary ---
Author Organization [facility] Address [address] [place] [address] Care Team Providers Care Wrapper Sorter Name Role Phone Linda Mccray MD Primary Care Provider [phone] Encounter Details Date Type Department Care Team ([facility] st Contact Info) Description 11/03/2020 Lab Requisition [facility] Pathology & Laboratory Medicine - [facility] [address] [place], [place] [address] Outr Resulting Lab, Provider Social History Tobacco [...] Comments ZZCOVID-19 TEST [facility] PCR Today 11/03/2020 10:30 EST COVID-19 TESTING Routine 11/03/2020 10:3 0 EST documented in this encounter Results * COVID-19 TEST [facility] PCR (11/03/2020 10:30 EST) Swab ENTIRE NASOPHARYNX / Unknown 11/03/2020 10:30 EST 11/03/2020 15:37 EST Provider Outr Resulting Lab MICROBIOLOGY - GENERAL ORDERABLES [facility] [address] [place] [address] * COVID-19 TESTING (11/03/2020 10:30 EST) COVID-19 rt-PCR Result Negative Negative 11/04/2020 16:22 EST [facility] Comment: Negative results do not preclude 2019-nCoV infection and should not be used as the sole basis for treatment or other patient management decisions. Negative results must be combined with clinical observations, patient history, and epidemiological information. This test was developed and its performance characteristics determined by [facility]. It has not been cleared or approved [...] testing. This test is based on the [facility] COVID-19 Emergency Use Authorization (EUA) assay, with minor modification as defined by the FDA Performed on the ClickingHouse Flex. Performing Lab [facility] Lab 11/04/2020 16:22 EST [facility] Swab 11/03/2020 10:3 0 EST 11/03/2020 15:37 EST Provider Outr Resulting Lab MICROBIOLOGY - GENERAL ORDERABLES [facility] [address] [place] [address] documented in this encounter Visit Diagnoses Not on filedocumented in this encounter Care Teams Wrapper Sorter Relationship Specialty Start Date End Date Linda Mccray MD [address] [place] [address] PCP - General 05/12/20 documented as of this encounter
--- OUTSIDE RECORDS SUMMARY | 2024-07-17 21:46 | XMS_ITS | Encounter Summary ---
Author Organization [facility] Address [address] [place] [address] Care Team Providers Care Corporate Recycling Manager Name Role Phone Linda Mccray MD Primary Care Provider [phone] Encounter Details Date Type Department Care Team ([facility] st Contact Info) Description 11/17/2021 Lab Requisition [facility] Pathology & Laboratory Medicine - [facility] [address] [place], [place] [address] Outr Resulting Lab, Provider Social History Tobacco [...] Comments ZZCOVID-19 TEST [facility] PCR Today 11/16/2021 14:10 EST COVID-19 TESTING Routine 11/16/2021 14:1 0 EST documented in this encounter Results * COVID-19 TEST [facility] PCR (11/16/2021 14:10 EST) Swab 11/16/2021 14:1 0 EST 11/17/2021 17:04 EST Provider Outr Resulting Lab MICROBIOLOGY - GENERAL ORDERABLES [facility] [address] [place] [address] * COVID-19 TESTING (11/16/2021 14:10 EST) COVID-19 rt-PCR Result Negative Negative 11/18/2021 13:24 EST [facility] Comment: This test has not [...] was performed using the sheri SARS-CoV-2 assay ([employer] on the Sheri 6800 System Performing Lab Sheri [address] [facility] Lab 11/18/2021 13:24 EST [facility] Swab 11/16/2021 14:1 0 EST 11/17/2021 17:04 EST Provider Outr Resulting Lab MICROBIOLOGY - GENERAL ORDERABLES Performing Organization Address City/State/[facility] Co de Phone Number [facility] [address] [place] [address] documented in this encounter Visit Diagnoses Not on filedocumented in this encounter Care Teams Corporate Recycling Manager Relationship Specialty Start Date End Date Linda Mccray MD [address] [place] [address] PCP - General 05/12/20 documented as of this encounter
--- OUTSIDE RECORDS SUMMARY | 2024-07-17 21:46 | XMS_ITS ---
Author Name Lee Jones MD Organization Unknown Care Team Providers Care Information Technology Specialist Name Role Phone Lee Jones MD Unavailable Unavailable Samy Shaw MA/XRT Unavailable Unavailab le ALLERGIES * No known allergy CHIEF COMPLAINT * P/C: INR/protein blood test * outside lab - PT/INR FUNCTIONAL AND COGNITIVE STATUS * No functional and cogntive status documented IMMUNIZATIONS * No immunizations documented MEDICATIONS Medication Start Date Stop Date Modified Date Dose Formulation Route Frequency Status Coumadin Unknown 10/14/2022 by mouth Rashard e 1/2 tablet every Monday. Report any signs of excessive bleeding to your doctor. active PLAN OF CARE * No plan of care documented PROBLEMS * No clinical problems documented PROCEDURES * No procedure documented REASON FOR REFERRAL No reason for referral documented REASON FOR VISIT Exam started at 15:25 10/14/2022. Able to get a good history. Have reviewed and agree with staff notes. History comes from patient. History includes: 72 YO MALE, HX OF METALLIC VALVE REPLACEMENT AND ATRIAL FIBRILLATION, [facility]ELING [facility], ON CHRONIC WARFARIN THERAPY (10 MG DAILY) FOR THE LAST 20 YEARS, PRESENTS WITH A REQUEST FOR COAGULATION TESTING. HE LAST HAD A COAGULATION PANEL ABOUT ONE MONTH AGO. HE HAS HAD FLUCTUATING INR LEVELS (FROM 1.0 - 7.0) PER PATIENT REQUIRING FREQUENT MONITORING. HE DENIED EXCESSIVE BRUSING OR BLEEDING, CHEST PAIN, DIFFICULTY BREATHING, VOMITING, BLACK OR BLOODY STOOLS, WEAKNESS, DIZZINESS, PASSING OUT, PALPITATIONS OR OTHER CURRENT SYMPTOMS. HE HASNO OTHER COMPLAINTS. HERE ALONE. At the moment patient is not complaining of symptoms. No other symptoms. RESULTS * INR - 1.5 (H) * PT - 15.0 sec (H) SOCIAL HISTORY * Patient never smoked. VITAL SIGNS * Height: 73 inch * Weight: 185 lb * BMI: 24.4 * BSA: 2.1 * BP: 138/79 * Pulse: 71 /min * Temperature: 98 * Pulse Ox: 97 % ENCOUNTERS * Anticoagulation Therapy * Atrial Fibrillation
--- OUTSIDE RECORDS SUMMARY | 2024-07-17 21:46 | XMS_ITS | Encounter Summary ---
Author Organization [facility] Address [address] [place] [address] Care Team Providers Care Concrete Polisher Name Role Phone Linda Mccray MD Primary Care Provider [phone] Encounter Details Date Type Department Care Team ([facility] st Contact Info) Description 07/29/2020 Lab Requisition [facility] Pathology & Laboratory Medicine - [facility] [address], [place] [address] Outr Resulting Lab, Provider Social History Tobacco [...] Comments ZZCOVID-19 TEST [facility] PCR Today 07/29/2020 10:55 EDT COVID-19 TESTING Routine 07/29/2020 10:5 5 EDT documented in this encounter Results * COVID-19 TEST [facility] PCR (07/29/2020 10:55 EDT) Swab ENTIRE NASOPHARYNX / Unknown 07/29/2020 10:55 EDT 07/29/2020 22:07 EDT Provider Outr Resulting Lab MICROBIOLOGY - GENERAL ORDERABLES [facility] [address] [place] [address] * COVID-19 TESTING (07/29/2020 10:55 EDT) COVID-19 rt-PCR Result Negative Negative 07/30/2020 0:57 EDT [facility] Comment: This test has not [...] history, and epidemiological information. Performed on the [employer] Fusion instrument Performing Lab [place] [facility] Lab 07/30/2020 0:57 EDT [facility] Swab 07/29/2020 10:5 5 EDT 07/29/2020 22:07 EDT Provider Outr Resulting Lab MICROBIOLOGY - GENERAL ORDERABLES [facility] [address] [place] [address] documented in this encounter Visit Diagnoses Not on filedocumented in this encounter Care Teams Concrete Polisher Relationship Specialty Start Date End Date Linda Mccray MD [address] [place] [phone] PCP - General 05/12/20 documented as of this encounter
--- OUTSIDE RECORDS SUMMARY | 2024-07-17 21:46 | XMS_ITS | Encounter Summary ---
Author Organization [facility] Address [address] [place] [address] Care Team Providers Care Embossing Machine Tender Name Role Phone Linda Mccray MD Primary Care Provider [phone] Encounter Details Date Type Department Care Team ([facility] st Contact Info) Description 02/23/2024 Lab Requisition [facility] Pathology & Laboratory Medicine - [facility] [address] [place] [address] Outr Resulting Lab, Provider Social History Tobacco [...] Procedure Name Priority Date/Time Associated Diagnosis Comments QUANTIFERON MITOGEN (PERFORMABLE) Today 02/22/2024 15:15 EDT QUANTIFERON TB2 (PERFORMABLE) Today 02/22/2024 15:15 EDT QUANTIFERON TB1 (PERFORMABLE) Today 02/22/2024 15:15 EDT QUANTIFERON NIL (PERFORMABLE) Today 02/22/2024 15:15 EDT QUANTIFERON INTERPRETATION (PERFORMABLE) Today 02/22/2024 15:15 EDT QUANTIFERON TB GOLD PLUS Routine 02/22/2024 15:15 EDT documented in this encounter Results * QUANTIFERON INTERPRETATION (PERFORMABLE) (02/22/2024 15:15 EDT) [facility] Signature Quantiferon Interpretation Negative Negative 02/26/2024 12:09 EDT [facility] Comment:No interferon-gamma response to M. tuberculosis antigens was detected. ??Infection with M. tuberculosis is unlikely. A single negative result does not exclude infection with M. tuberculosis. ??In patients at high risk for M. tuberculosis infection, a second test should be considered. TB1 Ag minus Nil 0.00 IU/ml 02/26/20 24 12:09 EDT [facility] TB2 Ag minus Nil 0.01 IU/mL 02/26/20 24 12:09 EDT [facility] Blood VENOUS BLOOD / Unknown 02/22/2024 15:15 EDT 02/26/2024 9:40 EDT Provider Outr Resulting Lab IMMUNOLOGY A ND SEROLOGY ORDERABLES Performing Organization Address [facility] de Phone Number [facility] [address] [place] [phone] * QUANTIFERON MITOGEN (PERFORMABLE) (02/22/2024 15:15 EDT) Blood VENOUS BLOOD / Unknown 02/22/2024 15:15 EDT 02/23/2024 17:17 EDT Provider Outr Resulting Lab IMMUNOLOGY A ND SEROLOGY ORDERABLES Performing Organization Address [facility] de Phone Number [facility] [address] [place] [phone] * QUANTIFERON TB2 (PERFORMABLE) (02/22/2024 15:15 EDT) Blood VENOUS BLOOD / Unknown 02/22/2024 15:15 EDT 02/23/2024 17:17 EDT Provider Outr Resulting Lab IMMUNOLOGY A ND SEROLOGY ORDERABLES Performing Organization Address [facility] de Phone Number [facility] [address] [place] [address] [phone] * QUANTIFERON TB1 (PERFORMABLE) (02/22/2024 15:15 EDT) Blood VENOUS BLOOD / Unknown 02/22/2024 15:15 EDT 02/23/2024 17:17 EDT Provider Outr Resulting Lab IMMUNOLOGY A ND SEROLOGY ORDERABLES Performing Organization Address [facility] de Phone Number [facility] [address] [place], [place] [phone] * QUANTIFERON NIL (PERFORMABLE) (02/22/2024 15:15 EDT) Blood VENOUS BLOOD / Unknown 02/22/2024 15:15 EDT 02/23/2024 17:17 EDT Provider Outr Resulting Lab IMMUNOLOGY A ND SEROLOGY ORDERABLES Performing Organization Address [facility] Co de Phone Number [facility] [address] [place], [place] [phone] documented in this encounter Visit Diagnoses Not on filedocumented in this encounter Care Teams Embossing Machine Tender Relationship Specialty Start Date End Date Linda Mccray MD [address] [place] [phone] PCP - General 05/12/20 documented as of this encounter
--- OUTSIDE RECORDS SUMMARY | 2024-07-17 21:46 | XMS_ITS | Encounter Summary ---
Author Organization [facility] Address [address] [place] [address] Care Team Providers Care Family Literacy Coordinator Name Role Phone Linda Mccray MD Primary Care Provider [phone] Encounter Details Date Type Department Care Team ([facility] st Contact Info) Description 07/27/2021 Lab Requisition [facility] Pathology & Laboratory Medicine - [facility] [address] [place], [place] [address] Outr Resulting Lab, Provider Social History Tobacco [...] Comments ZZCOVID-19 TEST [facility] PCR Today 07/26/2021 10:30 EDT COVID-19 TESTING Routine 07/26/2021 10:3 0 EDT documented in this encounter Results * COVID-19 TEST [facility] PCR (07/26/2021 10:30 EDT) Swab ENTIRE NASOPHARYNX / Unknown 07/26/2021 10:30 EDT 07/27/2021 20:11 EDT Provider Outr Resulting Lab MICROBIOLOGY - GENERAL ORDERABLES [facility] [address] [place] [address] * COVID-19 TESTING (07/26/2021 10:30 EDT) COVID-19 rt-PCR Result Negative Negative 07/28/2021 12:52 EDT [facility] Comment: This test [...] performed using the sheri SARS-CoV-2 assay ([employer] on the Sheri 6800 System Performing Lab Sheri [address] [employer] Lab 07/28/2021 12:52 EDT [facility] Swab 07/26/2021 10:3 0 EDT 07/27/2021 20:11 EDT Provider Outr Resulting Lab MICROBIOLOGY - GENERAL ORDERABLES [facility] [address] [place] [address] documented in this encounter Visit Diagnoses Not on filedocumented in this encounter Care Teams Family Literacy Coordinator Relationship Specialty Start Date End Date Linda Mccray MD [address] [place] [phone] PCP - General 05/12/20 documented as of this encounter
--- OUTSIDE RECORDS SUMMARY | 2024-07-17 21:46 | XMS_ITS | Encounter Summary ---
Author Organization [facility] Address [address] [place] [address] Care Team Providers Care Television Production Assistant Name Role Phone Linda Mccray MD Primary Care Provider [phone] Encounter Details Date Type Department Care Team ([facility] st Contact Info) Description 06/29/2021 Lab Requisition [facility] Pathology & Laboratory Medicine - [facility] [address] [place], [place] [address] Outr Resulting Lab, Provider Social History Tobacco [...] Comments ZZCOVID-19 TEST [facility] PCR Today 06/29/2021 11:20 EDT COVID-19 TESTING Routine 06/29/2021 11:2 0 EDT documented in this encounter Results * COVID-19 TEST [facility] PCR (06/29/2021 11:20 EDT) Swab ENTIRE NASOPHARYNX / Unknown 06/29/2021 11:20 EDT 06/29/2021 22:13 EDT Provider Outr Resulting Lab MICROBIOLOGY - GENERAL ORDERABLES [facility] [address] [place] [address] * COVID-19 TESTING (06/29/2021 11:20 EDT) COVID-19 rt-PCR Result Negative Negative 06/30/2021 11:00 EDT [facility] Comment: This test has [...] history, and epidemiological information. Performed on the [employer] Fusion instrument Performing Lab [place] [facility] Lab 06/30/2021 11:00 EDT [facility] Swab 06/29/2021 11:2 0 EDT 06/29/2021 22:13 EDT Provider Outr Resulting Lab MICROBIOLOGY - GENERAL ORDERABLES [facility] [address] [place] [address] documented in this encounter Visit Diagnoses Not on filedocumented in this encounter Care Teams Television Production Assistant Relationship Specialty Start Date End Date Linda Mccray MD [address] [place] [address] PCP - General 05/12/20 documented as of this encounter
--- OUTSIDE RECORDS SUMMARY | 2024-07-17 21:46 | XMS_ITS | Encounter Summary ---
Author Organization [facility] Address [address] [place] [address] Care Team Providers Care Master Control Engineer Name Role Phone Linda Mccray MD Primary Care Provider [phone] Encounter Details Date Type Department Care Team ([facility] st Contact Info) Description 03/06/2024 Lab Requisition [facility] Pathology & Laboratory Medicine - [facility] [address] [place] [address] Unknown, Provider, Social History Tobacco Use Types Packs/Day Years [...] Date/Time Associated Diagnosis Comments MOLD IDENTIFICATION Today 03/06/2024 1 9:11 EDT documented in this encounter Results * (ABNORMAL) MOLD IDENTIFICATION (03/06/2024 19:11 EDT) Organism ID Penicillium species(A) 03/11/2024 14:24 EDT [facility] Comment: This mold is a saprophytic fungus. It has been reported rarely as a cause of infection. Its etiologic role is not certain, but infection is more likely if the patient's host defenses are compromised. We suggest evaluation of clinical data. Repeated i solation of fungus increases the likelihood that it is etiologically related. Consider reculturing the specimen. Mold COLLECTION OF INDUCED SPUTUM / Unknown 03/06/2024 19:11 EDT 03/06/2024 19:11 EDT Provider Unknown MICROBIOLOGY - MARIAN CABRERA ORDERABLES [facility] [address] [place] [address] documented in this encounter Visit Diagnoses Not on filedocumented in this encounter Care Teams Master Control Engineer Relationship Specialty Start Date End Date Linda Mccray MD [address] [place] [phone] PCP - General 05/12/20 documented as of this encounter
--- OUTSIDE RECORDS SUMMARY | 2024-07-17 21:47 | XMS_ITS | Encounter Summary ---
Author Organization [facility] Address [facility] [place] [address] Care Team Providers Care Physical Therapy Coordinator Name Role Phone Linda Mccray MD Primary Care Provider [phone] Encounter Details Date Type Department Care Team (Late st Contact Info) Description 03/07/2022 Telephone Cardiology at [address] [phone] Daniel-Yarelis Anne RN Social History Tobacco Use Types Packs/Day Years Used Date Smoking Tobacco: Former Cigarettes 1 18 1 966 - 1983 Smokeless Tobacco: Former Quit: 1982 Alcohol Use Standard Drinks/Week Comments Yes 5 (1 standard drink = 0.6 oz pur e alcohol) Sex and Gender Information Value Date Recorded Sex Assigned at Male 01/22/2023 2:25 PM EDT Gender Identity Male 01/22/2023 2:25 PM EDT Sexual Orientation Straight 01/22/2023 2: 25 PM EDT documented as of this encounter Miscellaneous Notes * Telephone Encounter - Yarelis Sanchez RN - 03/07/2022 5:11 PM EDT TC to pt. Pt states that he has been trying to reach Elmer DELAROSA for the past three days and has not had any success. Pt is upset that he was in fact in SR and was started on Amiodarone ( admittedly because he had told Elmer DELAROSA that the CV was unsuccessful) and that he wants to know if Elmer Minor wants him to continue taking the Amiodarone or take a lower dose? Advised pt that I will try to reach Elmer Minor as he is out of the clinic for another week. Pt is aware of this and is frustrated because he has called the Cardiology office in [facility] as well as the On-Call Cardiologists here and they both have advised the pt according to the pt's report that Elmer Minor needs to make the decision on the Amiodarone. Pt states that he is frustrated that no one seems to be able to answer his questions for over three days now. Spoke with pt at length and reviewed Elmer Minor's note when pt was prescribed Amiodarone and his plan. Pt would like to have us try to reach Elmre Minor directly to address his concerns. I advised pt that I will make every effort to reach Elmer and call him back when I make contact. Pt was given my Team Nurse direct number which he had not called and advised him to keep that number as his contact for the clinic. Pt agrees with this plan and Thanked me for helping to get him answers as best we can at the moment. Pt will await a call back from either myself or Elmer DELAROSA ( or jaleel) with a plan. Will forward this messag e to Elmer DELAROSA and jaleel EP Team members for their assistance in getting an answer for this patient in Elmer's absence from the clinic. documented in this encounter Plan of Treatment Not on file documented as of this encounter Visit Diagnoses Not on filedocumented in this encounter Care Teams Physical Therapy Coordinator Relationship Specialty Start Date End Date Linda Mccray MD [address] [place] [address] PCP - General Family Medicine 10/20/16 documented as of this encounter
--- OUTSIDE RECORDS SUMMARY | 2024-07-17 21:47 | XMS_ITS | Encounter Summary ---
[facility] [place] [address] Care Team Providers Care Show Host/Hostess Name Role Phone Linda Mccray MD Primary Care Provider [phone] Encounter Details Date Type Department Care Team (Late st Contact Info) Description 06/29/2022 Telephone [place] [phone] Carlos Manuel Velasco Social History Tobacco Use Types Packs/Day Years [...] encounter Miscellaneous Notes * Telephone Encounter - Carlos Manuel Velasco - 06/29/2022 11:[address] [facility] visit scheduled for 07/15/22. Left message for patient requesting call back, we were disconnected during scheduling. documented in this encounter Plan of Treatment Not on file documented as of this encounter Visit Diagnoses Not on filedocumented in this encounter Care Teams Show Host/Hostess Relationship Specialty Start Date End Date Linda Mccray MD [address] [place] [address] PCP - General Family Medicine 10/20/16 documented as of this encounter
--- OUTSIDE RECORDS SUMMARY | 2024-07-17 21:47 | XMS_ITS | Encounter Summary ---
Author Organization [facility] [place] [address] Care Team Providers Care Rejoiner Name Role Phone Linda Mccray MD Primary Care Provider [phone] Reason for Visit * Reason Onset Date Comments Other 01/24/2023 Regarding Spiriv a Encounter Details Date Type Department Care Team ([facility] Contact Info) Description 01/24/2023 Telephone [place] [phone] Mirella Madden RN Other (Regarding Spiriva ) Social History Tobacco Use Types Packs/Day Years Used Date Smoking Tobacco: Former Cigarettes 1 18 1 1983 Smokeless Tobacco: Never Alcohol Use Standard Drinks/Week Comments Yes 5 (1 standard drink = 0.6 oz pur e alcohol) Sex and Gender Information Value Date Recorded Sex Assigned at Male 01/22/2023 2:25 PM EDT Gender Identity Male 01/22/2023 2:25 PM EDT Sexual Orientation Straight 01/22/2023 2: 25 PM EDT documented as of this encounter Miscellaneous Notes * Telephone Encounter - Mirella Madden RN - 01/24/2023 3:10 PM EDT I have confirmed with Pt that he wants the Spiriva Rx to go to [facility] and not [facility]. I will then be able to process the PA to find Pts formulary alternative. Pt verbally expresses understanding. Mirella Madden RN Department of Pulmonary 5C, [facility] / Pager: [phone] * Telephone Encounter - Mirella Madden RN - 01/24/2023 3:08 PM EDT Copied from CRM #[id number]. Topic: Specialty Dept CRMs - Generic Call >> Jan 23, 2023 3:06 PM Ifrah Juárez wrote: Specialist: Dr Tillman Relationship (if other than patient-full name): none Reason for Call: pt could not get the script tiotropium bromide (Spiriva Respimat) 2.5 mcg/actuation Mist because his ins will not cover it. He would like something else ordered and sent to [facility]. [facility]. Please call him to discuss documented in this encounter Plan of Treatment Not on file documented as of this encounter Visit Diagnoses Not on filedocumented in this encounter Care Teams Rejoiner Relationship Specialty Start Date End Date Linda Mccray MD [address] [place] [address] PCP - General Family Medicine 10/20/16 documented as of this encounter
--- OUTSIDE RECORDS SUMMARY | 2024-07-17 21:47 | XMS_ITS | Encounter Summary ---
Author Organization [facility] [address] Care Team Providers Care Hairspring Truing Inspector Name Role Phone Linda Mccray MD Primary Care Provider [phone] Encounter Details Date Type Department Care Team ([facility] st Contact Info) Description 08/08/2023 9:20 AM EDT [place] [address] [address]ifred Manning, [facility] [place] [address] BPH with obstruction/lower urinary tract symptoms; Erectile dysfunction, unspecified erectile dysfunction type Social History Tobacco Use Types Packs/Day Years Used Date Smoking Tobacco: Former Cigarettes 1 18 1 966 - 1983 Smokeless Tobacco: Never Alcohol Use Standard Drinks/Week Comments Yes 5 (1 standard drink = 0.6 oz pur e alcohol) Sex and Gender Information Value Date Recorded Sex Assigned at Male 01/22/2023 2:25 PM EDT Gender Identity Male 01/22/2023 2:25 PM EDT Sexual Orientation Straight 01/22/2023 2: 25 PM EDT documented as of this encounter Last Filed Vital Signs Vital Sign Reading Time Taken Comments Blood Pressure 134/63 08/08/2023 9:17 AM EDT Pulse 76 08/08/2023 9:17 AM EDT Temperature - - Respiratory Rate 16 08/08/2023 9:17 AM EDT Oxygen Saturation 100% 08/08/2023 9:17 AM EDT Inhaled Oxygen Concentration - - Weight - - Height - - Body Mass Index - - documented in this encounter Progress Notes * Winifred Manning, [employer] - 08/08/2023 9:20 AM EDT History of Present Illness [place] Neri is a 73 y.o. year old male here for follow up of urinary incontinence. 08/04/2022: Patient was sent home with a Goldsmith catheter after his last thoracic procedure with Dr. Khalil in February 2021. His primary care doctor took the catheter out two weeks after the surgery. He was having a lot of pain with the Goldsmith catheter. He had a huge release of blood when the catheter was removed. He has been having problems with voiding since his catheter was removed. He was last seen by Dr. Sy last year. At that time, he was having urgency, frequency, feeling of incomplete emptying, and post void dribbling. He was started on Flomax 0.4mg daily and it was recommended that he decrease his coffee. He has not decreased his coffee and has no plans to do so. He has mild improvement of his symptoms on the Flomax, but overall he is not happy with his urinary symptoms. Coffee: 3-4 cups a day Wine: 1 glass a day Water: Minimal Soda: None Tea: None Patient also reports erectile dysfunction since around age 49 (secondary to an anti-depressant). Hestarted Viagra in his 60s. He says his ED has progressed significantly over the last few years. He then started buying Sildenafil online without a prescription. He is unsure of the quality of the medication, but was unable to afford a prescription. He does not feel that the Sildenafil has been working like it used to. He is in a new relationship and is interested in improving the quality of his erections. He has not had intercourse or used sildenafil for about a year and is uncertain if the quality of his erections is sufficient for penetrative intercourse. 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 BEVERLEY 09/1608/08/23: Urinary symptoms are unchanged. Still having some urgency and frequency, but content with this. He is using sildenafil. He is able to get an erection firm enough for intercourse. He feels like his lung function has deteriorated a bit since he was last here and he is having some issues with vertigo. PVR 40cc. Past Medical History: Recurrent spontaneous pneumothoraxes Congestive heart failure Mitral and aortic mechanical valves (both placed 1998, on Coumadin) S/p pacemaker Past Surgical History 03/09/21: Re-operation for left hemothorax s/p LVATS washout with control of bleeding and evacuationof clot. 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 In a new relationship. Physical Examination: Constitutional: The patient is well developed, well nourished, alert and oriented, and appears his stated age. Respiratory: Breathing comfortably. No audible wheezes are appreciated. Rectal: Deferred from 07/2022: Sphincter tone is normal There is not any levator ani tenderness. The prostate is moderately enlarged (40-60gm) with no nodularity, firmness and asymmetry. Extremities: Appear warm and well perfused. no LE Edema Neuro: Awake and alert. Oriented to person/place/time. No gross motor defects. PVR: 41 UA: negative for leukocytes, nitrates, heme, and protein. Imaging: No relevant imaging Assessment: 71 male with moderate LUTS. He is content with this. and Moderate ED Plan: Continue Flomax 0.4 mg daily. he is not interested in any new medication at this time. Continue Sildenafil 100mg daily. Discussed injectables and/or IPP for ED. He is not interested at this time but will let me know if he changes his mind and would set up to see Dr. Rhodes. FUV with m in 1 year with PVR and IPSS. Winifred Manning APRN documented in this encounter Plan of Treatment Not on file documented as of this encounter Visit Diagnoses Diagnosis BPH with obstruction/lower urinary tract symptoms Hypertrophy of prostate with urinary obstruction and other lower urinary tract symptoms (LUTS) Erectile dysfunction, unspecified erectile dysfunction type documented in this encounter Care Teams Hairspring Truing Inspector Relationship Specialty Start Date End Date Linda Mccray MD [address] [place], [place] [id number] PCP - General Family Medicine 10/20/16 documented as of this encounter
--- OUTSIDE RECORDS SUMMARY | 2024-07-17 21:47 | XMS_ITS | Encounter Summary ---
Author Organization [facility] [place] [address] Care Team Providers Care Electrotype Molder Name Role Phone Linda Mccray MD Primary Care Provider [phone] Encounter Details Date Type Department Care Team (Latest Contact Info) Description 08/08/2023 Travel Social History Tobacco Use Types Packs/Day Years Used Date Smoking Tobacco: Former Cigarettes 1 18 1 6 1983 Smokeless Tobacco: Never Alcohol Use Standard Drinks/Week Comments Yes 5 (1 standard drink = 0.6 oz pur e alcohol) Sex and Gender Information Value Date Recorded Sex Assigned at Male 01/22/2023 2:25 PM EDT Gender Identity Male 01/22/2023 2:25 PM EDT Sexual Orientation Straight 01/22/2023 2: 25 PM EDT documented as of this encounter Plan of Treatment Not on file documented as of this encounter Visit Diagnoses Not on filedocumented in this encounter Care Teams Electrotype Molder Relationship Specialty Start Date End Date Linda Mccray MD [address] [place] [address] PCP - General Family Medicine 10/20/16 documented as of this encounter
--- OUTSIDE RECORDS SUMMARY | 2024-07-17 21:47 | XMS_ITS | Encounter Summary ---
Author [place] [address] Care Team Providers Care Oil Derrick Operator Name Role Phone Linda Mccray MD Primary Care Provider [phone] Reason for Visit * Reason Onset Date Comments Prior Authorization 01/30/2023 Spiriva Encounter Details Date Type Department Care Team ([facility] st Contact Info) Description 01/30/2023 [place] [id number] Alysia Gutierrez CMA Prior Authorization (Spiriva) Social History Tobacco Use Types Packs/Day Years [...] encounter Miscellaneous Notes * Telephone Encounter - Luis Ronquillo CCMA - 01/30/2023 3:33 PM EDT Summary: Approved Images from the original note were not included. Submitted Date: Submitted Date: 01/30/2023 Next Review Date: Next Review Date: 01/30/2024 PA Outcome: PA Approval Medication Prior Authorization Approval Approved: Spiriva Respimat Start Date: 11/01/2022 End Date: 01/30/2024 Case/Reference #: [id number] Approval Letter scanned into media. * Telephone Encounter - Alysia Gutierrez CMA - 01/30/2023 3:12 PM EDT PA Submitted Submitted Date: Submitted Date: 01/30/2023 Medication Prior Authorization Patient: London Neri Patient : 1950 Insurance Company: [employer] Sent via: [employer] Nguyen: [id number] Physician: Micki Tillman MD Medication Requested: tiotropium bromide (Spiriva Respimat) 2.5 mcg/actuation Mist Frequency/Sig: inhale 2 puffs into the lungs daily Disp: 1 Refills: 12 Currently taking: no Diagnosis for this medication: Centrilobular emphysema J43.2 Additional Notes: ?? History of Present Illness: Mr. Neri is a 72-year-old male who presents today for an initial clinic visit with me. ?? The patient was initially seen in the pulmonary clinic at [facility] by Dr. Davis in 2017 for progressive dyspnea. His spirometry done at this initial clinic visit demonstrated normal spirometry with moderate abnormalities in his diffusion capacity. His diffusion was noted to be out of proportion tothe rest of his PFTs. His CT chest had demonstrated bullous lung disease. His echocardiogram had demonstrated left heart disease with an EF of 45-50% with hypokinesis of apical area and there was concern about group 2 pulmonary hypertension causing his shortness of breath. The other concern was early COPD even with his normal spirometry. He was seen was seen in follow-up in 2017 at which time a cardiopulmonary exercise testing was recommended Which he was not interested in. The plan was to watch him and repeat his spirometry and diffusion capacity in 1 year. He was eventually seen in the multidisciplinary pulmonary nodule clinic at [facility] in Jun 2022 for lung nodule that was incidentally found on his/CT chest during the hospital admission from 12/12/2021 - 12/16/2021. The CT chest had been done for a fall and fractured left rib 5-12 and chest wall hematoma. A follow-up CT chest had been done in June 2022 Which had demonstrated complete resolution of the nodule which was eventually thought to be possible inflammatory. No further follow-up was recommended in the lung nodule clinic and he was referred to see pulmonary due to his daily cough and sputum production and bullous emphysema. The patient does have an extensive cardiac history including history of dual mechanical valves, persistent atrial fibrillation and a mature dual-lead pacemaker. He underwent an acutely successful DC cardioversion at [facility] on 02/18/2022 after which she was started on amiodarone. In February 2022, he presented to [facility] with hemoptysis, dyspnea on exertion and his imaging was noted to be consistent with ILD. Pulmonary medicine was consulted and his and his presentation was thought to be secondary to supratherapeutic INR, RVR, recent pneumonia and possibly amiodarone toxicity. He was manage supportive sup portively, weaned off oxygen and his amiodarone and aspirin were both stopped. He was eventually seen in follow-up by EP at [facility] for his atrial fibrillation. On review of their note, it was unclear ifhis atrial fibrillation was causing any of his symptoms of fatigue and exertional dyspnea. A continued rate control strategy was recommended with anticoagulation with warfarin. States that he has done fine from a breathing standpoint. He walks regularly a few miles on a dailybasis. He does ok on flat grounds but walking uphill makes him winded. Thinks he can walk 1 flight of stairs without any issues but any more flights, he has some SOB. He does mention that he has had SOB for many years but that has seemed to remain stable. No significant cough or phlegm production on a daily basis, States that he only coughs and makes phlegm when he has a cold. No wheezing. Has had some dizziness but does not lose consciousness. States that he has vertigo. No recent ER visits or hospitalizations since his visit in the lung nodule clinic. Denies having asthma asa Child. ?? documented in this encounter Plan of Treatment Not on file documented as of this encounter Visit Diagnoses Not on filedocumented in this encounter Care Teams Oil Derrick Operator Relationship Specialty Start Date End Date Linda Mccray MD [address] [place] [address] PCP - General Family Medicine 10/20/16 documented as of this encounter
--- OUTSIDE RECORDS SUMMARY | 2024-07-17 21:47 | XMS_ITS | Encounter Summary ---
Author Organization [facility] [place] [address] Care Team Providers Care Lingo Cleaner Name Role Phone Linda Mccray MD Primary Care Provider [phone] Encounter Details Date Type Department Care Team (Late st Contact Info) Description 02/21/2022 Telephone Cardiology at [address] [address] Willi Castillo [facility] [place] [address] Social History Tobacco Use Types Packs/Day Years Used Date Smoking Tobacco: Former Cigarettes 1 18 1 6 - 1983 Smokeless Tobacco: Former Quit: 1982 [...] encounter Miscellaneous Notes * Telephone Encounter - Willi Castillo DO - 02/21/2022 5:20 PM EDT Phone call: Request for Patient transfer or consultation Requesting physician: Dean DELAROSA Location: [facility] Indication for transfer request: consult from [facility] for atrial fibrillation Pertinent clinical details: HPI: Provider calling regarding clarification of medication dosing. Pt reports that he is supposed to betaking Amlodipine but does not have a script for it and dose not know the dose. I informed provider there that there is a recent EP note from [facility] recommending starting Amiodarone but there is no reference to Amlodipine. Given the recent failed DCCV and low BP on presentation, it appears the pt is confusing Amiodarone for Amlodipine, however as he is currently rate controlled and normotensive, recommended he call back tomorrow to clarify medication questions with the EP team. Vitals: BP: 106/77 HR: 79 97% RA 36.8 20 Willi Castillo DO Selling Manager, PGY-6 02/21/2022 documented in this encounter Plan of Treatment Not on file documented as of this encounter Visit Diagnoses Not on filedocumented in this encounter Care Teams Lingo Cleaner Relationship Specialty Start Date End Date Lnida Mccray MD [address] [place] [address] PCP - General Family Medicine 10/20/16 documented as of this encounter
--- OUTSIDE RECORDS SUMMARY | 2024-07-17 21:47 | XMS_ITS | Clinical Summary ---
Author Organization [facility] Address [facility] [place] [address] Care Team Providers Care Head Up Operator Name Role Phone Linda Mccray MD Primary Care Provider [phone] Allergies Active Allergy Reactions Criticality Noted Date Comments Amiodarone Analogues Other (See Comments) 07/15 Interferes with warfarin Medications Medication Sig Dispensed Refills Start Date End Date Status warfarin (Coumadin) 5 mg Tablet Take 1 tablet by mouth daily. 5 tablet 12/16/2021 Active Additional Information Patient taking differently:5 mg Oral DAILY,10 mg a day per patient, Reported on 01/23/2023 Trelegy Ellipta 200-62.5-25 mcg Inhale 1 puff into the lungs Daily. 05/29/2023 Active sildenafiL (Viagra) 100 mg tablet Take 1 tablet by mouth as needed for Erectile Dysfunction (Do not take more than 1 dose in a 24 hour period.). 60 tablet 3 08/08/2023 Active tamsulosin (Flomax) 0.4 mg capsule Take 1 capsule by mouth daily. 90 tablet 3 05/21/2024 Active Active Problems Problem Noted Date Diagnosed Date Rib fractures 12/12/2021 AV block, complete 03/30/2021 Lung blebs 03/30/2021 Other air leak 03/30/2021 Postoperative hematoma 03/30/2021 Tension pneumothorax, spontaneous 03/30/2021 Typical atrial flutter 03/15/2021 Recurrent spontaneous pneumothorax 03/05/2021 Near syncope 07/30/2020 Pacemaker - dual lead Medtronic 07/29/2020 Aortic insufficiency 05/08/2020 Current use of halfway anticoagulation 020 Heart block 05/08/2020 Chronic bullous emphysema 11/18/2016 Clostridium difficile colitis 11/07/2016 Encounter for screening colonoscopy 11/07/2016 Heart valve replaced 11/30/2012 Resolved Problems Problem Noted Date Diagnosed Date Resolved Date Pacemaker complications, initial encounter 07/30/2020 03/15/2021 Pacemaker battery depletion 07/28/2020 03/15/2021 Overview (07/28/2020): Added automatically from request for surgery [id number] Encounters Date Type Department Care Team Description 05/21/2024 [place] [address] Anette Aguilar RN from Last 3 Months Immunizations Name Administration Dates Next Due Influenza Vaccine, Whole 09/26/2005 Pneumococcal Polysaccharide (Pneumovax 23) 09/26 Social History Tobacco Use Types Packs/Day Years Used Date Smoking Tobacco: Former Cigarettes 1 18 1 966 - 1983 Smokeless Tobacco: Never Tobacco Cessation:Counseling Given: Not Answered Alcohol Use Standard Drinks/Week Comments Yes 5 (1 standard drink = 0.6 oz pur e alcohol) Sex and Gender Information Value Date Recorded Sex Assigned at Male 01/22/2023 2:25 PM EDT Gender Identity Male 01/22/2023 2:25 PM EDT Sexual Orientation Straight 01/22/2023 2: 25 PM EDT Last Filed Vital Signs Vital Sign Reading Time Taken Comments Blood Pressure 134/63 08/08/2023 9:17 AM EDT Pulse 76 08/08/2023 9:17 AM EDT Temperature 36.6 ??C (97.9 ??F) 01/23/2023 1:07 PM ED T Respiratory Rate 16 08/08/2023 9:17 AM EDT Oxygen Saturation 100% 08/08/2023 9:17 AM EDT Inhaled Oxygen Concentration - - Weight 80.4 kg (177 lb 3.2 oz) 01/23/2023 1:07 P M EDT Height 185 cm (6' 0.84) 01/23/2023 1:07 PM EDT Body Mass Index 23.48 01/23/2023 1:07 PM EDT Plan of Treatment Health Maintenance Due Date Last Done Comments CT Colonography 1950 FIT DNA 1950 FIT 1950 Sigmoidoscopy 1950 Hepatitis C Screening 1967 Lipid Screening 1967 Tetanus/Diphtheria/Pertussis Vaccines (1 - Tdap) 1968 Zoster vaccine (1 of 2) 1999 Pneumoccocal Vaccine: 65+ (2 of 2 - PCV) 09/26/2006 09/26/2005 AAA Screen 2014 Colonoscopy 01/26/2022 01/26/2017, 01/26/2017 Colorectal Cancer Screening 01/26/2022 Covid-19 Vaccine (1 - season) 2024 Influenza (Flu) vaccine (1 o f 1 - Influenza standard series) 06/23/2024 09/26/2005 Sigmoidoscopy (10 year) with FIT yearly 01/26/2027 0 01/26/2017, 01/26/2017 Medical Devices Implanted Type Area Music Therapy Teacher Device Identifier Shelf Expiration Date Model / Serial / Lot Mdt :[id number] : [id number] 9/2020 Implanted:06/2020 by Jordana Tarango MD (Quantity not on file) Pacemaker Chest Medtronic [employer] [id number] / [id number] / Procedures Procedure Name Priority Date/Time Associated Diagnosis Comments COLONOSCOPY Routine 01/26/2017 12:20 PM EDT from Last 3 Months or Most Recently Relevant to Health Maintenance Results * COLONOSCOPY (01/26/2017 12:20 PM EDT) [facility] Signature COLONOSCOPY [facility] Endoscopy Procedure Date: 01/26/2017 12:20 PM ? Patient Name: London Neri ? Date of : 1950 ? Age: 66 ? Order #: [id number] ? Instrument Name: [id number] ? Procedure: ? Colonoscopy Indications: ? Screening for colorectal malignant ? neoplasm Providers: ? LBlaine Clark MD, Estelita Berman, ? RN, Matti Linares Referring : ?Linda Mccray MD Medicines: ? Midazolam 5 mg IV, Fentanyl 250 ? micrograms IV Complications: ? No immediate complications. Procedure: ? Pre-Anesthesia Assessment: ? - Prior to the procedure, a History ? and Physical was performed, and ? patient medications and allergies ? were reviewed. The patient is ? competent. The risks and benefits of ? the procedure and the sedation ? options and risks were discussed with ? the patient. All questions were ? answered and informed consent was ? obtained. Patient identification and ? proposed procedure were verified by ? the physician in the pre-procedure ? area in the endoscopy suite. Mental ? Status Examination: alert and ? oriented. Airway Examination: normal ? oropharyngeal airway and neck ? mobility. Respiratory Examination: ? clear to auscultation. CV ? Examination: normal. ASA Grade ? Assessment: III - A patient with ? severe systemic disease. After ? reviewing the risks and benefits, the ? patient was deemed in satisfactory ? condition to undergo the procedure. ? The anesthesia plan was to use ? moderate sedation / analgesia ? (conscious sedation). Immediately ? prior to administration of ? medications, the patient was ? re-assessed for adequacy to receive ? sedatives. The heart rate, ? respiratory rate, oxygen saturations, ? blood pressure, adequacy of pulmonary ? ventilation, and response to care ? were monitored throughout the ? procedure. The physical status of the ? patient was re-assessed after the ? procedure. ? The procedure, indications, benefits, ? risks and alternatives were explained ? to the patient. Specifically ? discussed were potential ? complications including, but not ? limited to, bleeding, perforation, ? infection, missing a cancer, and ? adverse medication reactions. The ? patient was placed in the left ? lateral decubitus position, and a ? digital rectal exam was performed. ? The Colonoscope was inserted in the ? anus and under direct visualization, ? advanced to the terminal ileum, with ? identification of the appendiceal ? orifice and IC valve. Careful ? inspection was made as the ? colonoscope was withdrawn. The ? colonoscopy was performed without ? difficulty. The patient tolerated the ? procedure well. The quality of the ? bowel preparation was evaluated using ? the BBPS (Kellogg Bowel Preparation ? Scale) with scores of: Right Colon = ? 3 (entire mucosa seen well with no ? residual staining, small fragments of ? stool or opaque liquid), Transverse ? Colon = 3 (entire mucosa seen well ? with no residual staining, small ? fragments of stool or opaque liquid) ? and Left Colon = 3 (entire mucosa ? seen well with no residual staining, ? small fragments of stool or opaque ? liquid). The total BBPS score equals ? 9. The quality of the bowel ? preparation was excellent. Scope ? withdrawal time was 10 minutes. ? Findings: ? External hemorrhoids were found. The hemorrhoids were ? small. ? Multiple small and large-mouthed diverticula were ? found in the sigmoid colon. ? A 6 mm polyp was found in the rectum. The polyp was ? semi-pedunculated. The polyp was on the proximal side ? of the second valve in the distal rectum in a ? retroverted position on the back of the fold. It was ? removed with a hot snare. Resection and retrieval ? were complete. To prevent bleeding after the ? polypectomy in the setting of warfarin use, three ? hemostatic clips were successfully placed (MR ? conditional). It required three clips due to ? difficult positioning. There was oozing during the ? procedure, but no bleeding at the end of the ? procedure. ? The terminal ileum appeared normal. ? Impression: ?- External hemorrhoids. ? - Moderate diverticulosis in the ? sigmoid colon. ? - One 6 mm polyp in the rectum, ? removed with a hot snare. Resected ? and retrieved. Clips (MR conditional) ? were placed. ? - The examined portion of the ileum ? was normal. Recommendation: ?- Await pathology results to ? determine the appropriate interval ? until the next exam. The patient will ? be notified by mail. If results are ? not received within three weeks, ? please call our office at ? [phone]. ? - For bright red rectal bleeding, ? please seek medical attention in the ? ER. Due to the distal position of the ? polypectomy, a flexible sigmoidoscopy ? would be adequate to reach the ? polypectomy site. ? Attending Participation: ? I personally performed the entire procedure. ? I was present during the intraservice time as ? documented by the sedation RN. ? __ L. Cade Clark MD 01/26/2017 1:55:24 PM Number of Addenda: 0 Note Initiated On: 01/26/2017 12:20 PM PROVATION 01/26/2017 12:2 0 PM EDT Linda Mccray MD GENERAL SURGICAL ORD ERABLES PROVATION from Last 3 Months or Most Recently Relevant to Health Maintenance Advance Directives Documents on File Type Date Recorded Patient Cold Press Operator Expl anation Advance Directives and Michelet cadena Will 03/05/2021 10:45 PM * Attempt Cardiopulmonary Resuscitation - Inpatient (Latest Code Status on File) Date Activated Date Inactivated Comments 12/12/2021 6:54 AM 12/16/2021 3:41 PM Question Answer Comments Code Status decision made by: Patient * Attempt Cardiopulmonary Resuscitation - Inpatient Date Activated Date Inactivated Comments 03/05/2021 4:15 PM 03/13/2021 5:39 PM Question Answer Comments Code Status decision made by: Patient * Attempt Cardiopulmonary Resuscitation - Inpatient Date Activated Date Inactivated Comments 07/30/2020 4:55 PM 07/31/2020 3:15 PM Question Answer Comments Code Status decision made by: Patient * Attempt Cardiopulmonary Resuscitation - Inpatient Date Activated Date Inactivated Comments 07/30/2020 4:20 PM 07/30/2020 4:55 PM Question Answer Comments Code Status decision made by: Patient Care Teams Head Up Operator Relationship Specialty Start Date End Date Linda Mccray MD [address] [place] [address] PCP - General Family Medicine 10/20/16
--- OUTSIDE RECORDS SUMMARY | 2024-07-17 21:47 | XMS_ITS | Encounter Summary ---
Author Organization [facility] Address [address] [place] [address] Care Team Providers Care Stationary Engineer Refrigeration Name Role Phone Linda Mccray MD Primary Care Provider [phone] Reason for Visit * Reason Onset Date Comments Appointment Related 05/11/2020 Encounter Details Date Type Department Care Team ([facility] st Contact Info) Description 05/11/2020 Telephone [facility] [address] [place] [address] Carlos Manuel Singer OPERATIONS ADMINISTRATOR [address] [facility] [address] [place] [address] Appointment Related Social History Tobacco Use Types Packs/Day Years Used Date Smoking Tobacco: Never Assessed Sex and Gender Information Value Date Recorded Sex Assigned at Not on file Gender Identity Male 05/12/2020 9:42 EDT Sexual Orientation Not on file documented as of this encounter Miscellaneous Notes * Telephone Encounter - Carlos Manuel Singer APRN - 05/15/2020 1011 EDT thanks * Telephone Encounter - Crystal Stein - 05/14/2020 1511 EDT PT called back, he will think about what he wants to do as he may transfer to [facility]. * Telephone Encounter - Crystal Stein - 05/14/2020 1333 EDT Left message for pt to contact the office and schedule an appointment with someone in * Telephone Encounter - Carlos Manuel Singer APRN - 05/13/2020 0930 EDT Spoke with patient and gave him the results of his remote download. He is aware that he needs to doanother download at the beginning of May. He will need in office visit in . Patient is aware that Dr. Marroquin is leaving. He is not sure who he would like to follow up with. Can you call and discuss and have him make an appointment. * Telephone Encounter - Crystal Stein - 05/12/2020 1428 EDT Pt called back. I let him know that he doesn't need to do a remote transmission until 05/25 and that I would cancel his visit in the office. Pt would like to speak with Carlos Manuel regarding what the results of this last remote transmission showed. * Telephone Encounter - Crystal García - 05/12/2020 0855 EDT I rescheduled pt's remote check for 05/25, which will be a month from the last one. I attempted to reach him this AM and was instructed by a family member that he isn't going to be around all day todayand I would need to try again tomorrow (05/13). I asked family member to give him the msg that I called looking to speak with him today when he get's home. She stated she would. * Telephone Encounter - Carlos Manuel Singer APRN - 05/11/2020 1501 EDT Sue's name on download as she was the ordering provider. His download in April was reviewed by Michelle Lindo as it was her week to monitor the remote site. His batter is estimating 6 mos (may be longer but we follow batter monthly once below 12 mos). He does not need another download or follow up this month. We have him on the remote schedule monthly to monitor his battery. He has not been in the office for follow up visit since leaving for [facility] last year. Sue has retired so he will need to transition care to a new provider in the office or with Cardiology practice of his choice. We are happyto help him with which ever decision is right for him. IF he chooses to stay with our practice, I would recommend follow up in the office in the next three months. * Telephone Encounter - Crystal Stein - 05/11/2020 1426 EDT Pt called upset. He sent in a remote transmission on 04/23/2020 and then a letter was sent to him dated 05/07/2020 to send in a remote transmission on 05/18/2020. While looking into that, we see that he has an appointment scheduled with Carlos Manuel on 05/13/2020. Pt was unware of Sue retiring and wants to know why her name is still on remote transmission letter. Also, if we had read his remote transmissionwe would of known that he didn't need to send another one on 05/18/2020. He is wondering why his remote transmission wasn't read on 04/23/2020? Also, does he need to keep appointment for this week? Pt would like a call tomorrow with answers or he will be looking for care elsewhere. documented in this encounter Plan of Treatment Not on file documented as of this encounter Visit Diagnoses Not on filedocumented in this encounter Care Teams Stationary Engineer Refrigeration Relationship Specialty Start Date End Date Linda Mccray MD [address] [place] [id number] PCP - General 05/12/20 documented as of this encounter
--- OUTSIDE RECORDS SUMMARY | 2024-07-17 21:47 | XMS_ITS | Encounter Summary ---
Author Organization [facility] Address [address] [place] [address] Care Team Providers Care Robotics Application Engineer Name Role Phone Unavailable Primary Care Provider Unavailabl e Reason for Visit * Reason Onset Date Comments Other 01/01/2020 remote transmiss ion Encounter Details Date Type Department Care Team ([facility] st Contact Info) Description 01/01/2020 Telephone [facility] [address] [place] [address] Carlos Manuel Singer NP [address] [facility] [address] [place] [address] Other (remote transmission ) Social History Tobacco Use Types Packs/Day Years Used Date Smoking Tobacco: Never Assessed Sex and Gender Information Value Date Recorded Sex Assigned at Not on file Gender Identity Male 05/12/2020 9:42 EDT Sexual Orientation Not on file documented as of this encounter Miscellaneous Notes * Telephone Encounter - Crystal Stein - 01/07/2020 0836 EDT Pt called and wanted to know if he can get the battery changed in his pacemaker now instead of later in the year with all that's going on? * Telephone Encounter - Navin Lopez, RN - 01/01/2020 1503 EDT Spoke with Carlos Manuel Singer APRN and then called and left a message for patient. Let pt know that the transmission was received just fine and that it had been reviewed. Pt is in [place] currently and has a f/u appt in this office 02/04/2020. ERl was 9months with a 3 month window after that time for repl acement. Carlos Manuel asked to reassure patient that he is in no danger of battery/generator depletion prior to coming back from [place] next month. Advised pt of this via message and asked for pt to return call if he had further questions or issues. * Telephone Encounter - Crystal Stein - 01/01/2020 6323 EDT [place] called and left a message wondering if we received his remote pacer transmission and is looking for a call back to discuss it. documented in this encounter Plan of Treatment Not on file documented as of this encounter Visit Diagnoses Not on filedocumented in this encounter
--- OUTSIDE RECORDS SUMMARY | 2024-07-17 21:47 | XMS_ITS | Encounter Summary ---
[facility] [place] [address] Care Team Providers Care Player Development Manager Name Role Phone Linda Mccray MD Primary Care Provider [phone] Reason for Visit * Reason Onset Date Comments Other 01/24/2023 Attempted to naomi l Pt Encounter Details Date Type Department Care Team ([facility] st Contact Info) Description 01/24/2023 Telephone [place] [phone] Mirella Madden RN Other (Attempted to call Pt) Social History Tobacco Use Types Packs/Day Years [...] Encounter - Mirella Madden RN - 01/24/2023 8:45 AM EDT Attempted to call Pt regarding a incoming CRM for Spiriva Respimat. I was met with a VM of Gordon Neri. Did not LVM. Will try again later. Mirella Madden RN Department of Pulmonary 5C, [facility] / Pager: [phone] documented in this encounter Plan of Treatment Not on file documented as of this encounter Visit Diagnoses Not on filedocumented in this encounter Care Teams Player Development Manager Relationship Specialty Start Date End Date Linda Mccray MD [address] [place] [address] PCP - General Family Medicine 10/20/16 documented as of this encounter
--- OUTSIDE RECORDS SUMMARY | 2024-07-17 21:47 | XMS_ITS | Encounter Summary ---
Author Organization [facility] [place] [address] Care Team Providers Care Commercial Account Officer Name Role Phone Linda Mccray MD Primary Care Provider [phone] Encounter Details Date Type Department Care Team (Late st Contact Info) Description 01/24/2023 [place] [phone] Mierlla Madden RN Social History Tobacco Use Types Packs/Day [...] Encounter - Mirella Madden RN - 01/24/2023 8:46 AM EDT Copied from CRM #[id number]. Topic: Specialty Dept CRMs - Medication Issues >> Jan 23, 2023 2:31 PM Irish Chavez wrote: Medication Issues Specialist Micki Tillman MD Relationship (if other than patient-full name): Hilary- [id number] - [place], [place] - [address] Reason for call: Medication Issue (if symptom based used Triage Subtopic) Message/information for the nurse: Hilary from [facility] calling in states that [place] insurance will not cover the tiotropium bromide (Spiriva Respimat) 2.5 mcg/actuation Mist. She was not sure if Dr. Tillman wanted to send something else in or not. Please call Hilary back to discuss or any questions. Name of Medication: tiotropium bromide (Spiriva Respimat) 2.5 mcg/actuation Mist Issue with the medication: Insurance does not cover this medication. documented in this encounter Plan of Treatment Not on file documented as of this encounter Visit Diagnoses Not on filedocumented in this encounter Care Teams Commercial Account Officer Relationship Specialty Start Date End Date Linda Mccray MD [address] [place] [address] PCP - General Family Medicine 10/20/16 documented as of this encounter
--- OUTSIDE RECORDS SUMMARY | 2024-07-17 21:47 | XMS_ITS | Encounter Summary ---
[place] [address] Care Team Providers Care Rewinder Operator Name Role Phone Linda Mccray MD Primary Care Provider [phone] Encounter Details Date Type Department Care Team (Late st Contact Info) Description 03/10/2022 Telephone Cardiology at [address] [phone] Rosmery Bush Social History Tobacco Use Types Packs/Day Years [...] encounter Miscellaneous Notes * Telephone Encounter - Rosmery Bush - 03/10/2022 4:15 PM EDT Echo order faxed to [facility] at [phone]. No prior auth needed. Ref #: [id number]. Rosmery Bush EP Scheduling documented in this encounter Plan of Treatment Not on file documented as of this encounter Visit Diagnoses Not on filedocumented in this encounter Care Teams Rewinder Operator Relationship Specialty Start Date End Date Linda Mccray MD [address] [place] [address] PCP - General Family Medicine 10/20/16 documented as of this encounter
--- OUTSIDE RECORDS SUMMARY | 2024-07-17 21:47 | XMS_ITS | Encounter Summary ---
Author Organization [facility] Address [facility] [place] [address] Care Team Providers Care Seam Feller Name Role Phone Linda Mccray MD Primary Care Provider [phone] Encounter Details Date Type Department Care Team (Late st Contact Info) Description 02/18/2022 Orders Only Cardiology at [address] [phone] Elmer Minor PA [facility] [place] [address] Persistent atrial fibrillation Social History Tobacco Use Types Packs/Day Years [...] PM EDT documented as of this encounter Progress Notes * Elmer Minor PA - 02/18/2022 1:52 PM EDT Images from the original note were not included. Cardiac Electrophysiology Mr. Neri is a 71yo man who has a complex hx including HTN, mechanical aortic and mitral valve(1998), on chronic Coumadin, high-grade AV block, s/p dual- chamber Medtronic pacemaker implantation??in 2007, PG replaced 07/2020, PAF, now persistent and hx of multiple traumatic pneumothoraces. His device is followed remotely via [facility] and in person at [facility]. At previous interrogation he was noted to have persistent afib(perhaps since March 2021) and underwent attempted DCCV at [facility] today(Dr. Fitzgerald) which was unsuccessful. He contacted the [facility] device clinic for recommendations and was directed to me. We discussed various possible treatment strategies. He is persistently dyspneic in the setting of recent fall with hemopneumothorax and underwent VATS with decortication. Recent thoracic surgery follow up indicates no additional intervention is recommended. It is not completely clear, but certainly plausible that his AF is contributing to his symptoms. Cardiac echo from 2019 showed LVEF 60%, normal LA dimensions, well seated and functioning aortic and mitral mechanical valves. November 2021 LFTs and renal function are normal. QTc is prolonged but paced. I have no recent TSH. From device data 08/2021: AP 0%; TOOL ENGINEER 99% Impression and Plan: 71yo man with hx of PAF, CHB, s/p dual lead Medtronic pacemaker, mechanical aortic and mitral valves, now with worsening dyspnea and persistent atrial fibrillation. He underwent attempted DC cardioversion today at [facility] which was unsuccessful. He is interested in possible PVI ablation if he is considered a candidate. He is therapeutically anticoagulated with coumadin. He would like to pursue rhythm control to determine whether this helps him return to more normal function as he is currently very limited in the amount of work he can perform. Will trial amiodarone, 400mg once daily for 3-4 weeks followed by DCCV if indicated. As his last echo was in 2019, I will request an updated echo and schedule him for discussion with EP attending regarding mcfp strategy. He is a less favorable candidate foreither sotalol or dofetilide given prolonged(paced) QT/QTc at baseline. Provider: WASHINGTON Salas EP Consult attending physician: Heriberto Frost MD documented in this encounter Plan of Treatment Not on file documented as of this encounter Visit Diagnoses Diagnosis Persistent atrial fibrillation Atrial fibrillation documented in this encounter Care Teams Seam Feller Relationship Specialty Start Date End Date Linda Mccray MD [address] [place] [address] PCP - General Family Medicine 10/20/16 documented as of this encounter
--- OUTSIDE RECORDS SUMMARY | 2024-07-17 21:47 | XMS_ITS | Encounter Summary ---
Author [facility] [place] [address] Care Team Providers Care Door To Door Selling Agent Name Role Phone Linda Mccray MD Primary Care Provider [phone] Encounter Details Date Type Department Care Team (Latest Contact Info) Description 01/22/2023 Travel Social History Tobacco Use Types Packs/Day [...] on filedocumented in this encounter Care Teams Door To Door Selling Agent Relationship Specialty Start Date End Date Linda Mccray MD [address] [place] [address] PCP - General Family Medicine 10/20/16 documented as of this encounter
--- OUTSIDE RECORDS SUMMARY | 2024-07-17 21:47 | XMS_ITS | Encounter Summary ---
Author Organization [facility] Address [facility] [place] [address] Care Team Providers Care Head Grease Maker Name Role Phone Linda Mccray MD Primary Care Provider [phone] Encounter Details Date Type Department Care Team (Late st Contact Info) Description 03/08/2022 Notes Only Cardiology at [address] [phone] Elmer Minor PA [facility] [place] [address] Social History Tobacco Use Types Packs/Day Years [...] Progress Notes * Elmer Minor PA - 03/08/2022 10:50 AM EDT Cardiac Electrophysiology [facility] Telephone Note 71yo man with hx of dual mechanical valves, persistent afib, mature dual lead pacemaker who underwent an acutely successful DC cardioversion at [facility] on February 18, 2022. He initially indicated on the days of the procedure in a telephone call to nm that the cardioversion was UNsuccessful. Subsequent device interrogation shows he conrted on that day and has not had any recurrent afib. His device data indicates he has been in persistent afib since March 2021 and was managed with rate control. He has had recurrent pulmonary issues which may have been contributing to afib as well. [id number] echo showed preserved LVEF of 60% and normal left atrial dimensions. We talked on the phone today as he has been frustrated in not having received answers to his inquires over the past few days. We reviewed the nature of afib, amiodarone antiarrythmic therapy and the implications of this on his specific circumstances. As his afib has been longstanding persistent(~1 year) and I do not yet have updated echo data regarding his LVEF or atrial dimensions, I favor continuing amiodarone for a month(at a maintenance dose of 200mg) then a device interrogation and discontinuation of the amiodarone if he does not have recur rence. He is agreeable to this. He expressed to me that he is satisfied with the current response. Provider: WASHINGTON Salas EP Consult attending physician: Heriberto Tarango MD documented in this encounter Plan of Treatment Not on file documented as of this encounter Visit Diagnoses Not on filedocumented in this encounter Care Teams Head Grease Maker Relationship Specialty Start Date End Date Linda Mccray MD [address] [place] [address] PCP - General Family Medicine 10/20/16 documented as of this encounter
--- OUTSIDE RECORDS SUMMARY | 2024-07-17 21:47 | XMS_ITS | Encounter Summary ---
Author Organization [facility] Address [address] [place] [address] Care Team Providers Care Smoking Pipe Coater Name Role Phone Unavailable Primary Care Provider Unavailabl e Encounter Details Date Type Department Care Team (Late st Contact Info) Description 01/30/[address] [facility] Lab - Main [address] [address] Linda Mccray MD [address] [place] [phone] Social History Tobacco Use Types Packs/Day Years Used Date Smoking Tobacco: Never Assessed Sex and Gender Information Value Date Recorded Sex Assigned at Not on file Gender Identity Male 05/12/2020 9:42 EDT Sexual Orientation Not on file documented as of this encounter Plan of Treatment Not on file documented as of this encounter Procedures Procedure Name Priority Date/Time Associated Diagnosis Comments PROTIME Routine 01/30/2019 14:36 EDT documented in this encounter Results * (ABNORMAL) PROTIME (01/30/2019 14:36 EDT) Pathologist [facility] TIME [facility] 20.8(H) 9.5 - 13.4 SECONDS 01/30/2019 15:50 EDT [facility] 01/30/2019 14:3 6 EDT 01/30/2019 14:36 EDT Narrative [facility] - 04/20/2019 12:34 EDT Does PT Have a Latex Allergy? NO Linda Mccray MD HEMATOLOGY & PF4 ORD ERABLES [facility] documented in this encounter Visit Diagnoses Not on filedocumented in this encounter
--- OUTSIDE RECORDS SUMMARY | 2024-07-17 21:47 | XMS_ITS | Encounter Summary ---
Author Organization [facility] Address [facility] [place] [address] Care Team Providers Care Moss Picker Name Role Phone Linda Mccray MD Primary Care Provider [phone] Encounter Details Date Type Department Care Team (Late st Contact Info) Description 02/22/2022 Orders Only Cardiology at [address] [phone] Elmer Minor, PA [facility] [place] [address] Social History Tobacco Use Types Packs/Day Years [...] on filedocumented in this encounter Care Teams Moss Picker Relationship Specialty Start Date End Date Linda Mccray MD [address] [place] [address] PCP - General Family Medicine 10/20/16 documented as of this encounter
--- OUTSIDE RECORDS SUMMARY | 2024-07-17 21:47 | XMS_ITS | Encounter Summary ---
Author Organization [facility] [place] [address] Care Team Providers Care Business Excellence Manager Name Role Phone Linda Mccray MD Primary Care Provider [phone] Reason for Visit * Reason Onset Date Comments Other 02/09/2023 Regarding Incrus e vs. Spiriva Encounter Details Date Type Department Care Team ([facility] Contact Info) Description 02/09/2023 [place] [phone] Desilets, Mirella Salter RN Other (Regarding Incruse vs. Spiriva ) Social History Tobacco Use Types [...] encounter Miscellaneous Notes * Telephone Encounter - Madelyn Castaneda - 02/15/2023 3:05 PM EDT Patient is returning call. Please call to advise. * Telephone Encounter - Amy Ward - 02/09/2023 12:27 PM EDT Patient returning call * Telephone Encounter - Mirella Madden RN - 02/09/2023 12:19 PM EDT I have attempted to call Pt in regards to incoming CRM for a Rx Incruse Ellipta. However, I show that a PA for Spiriva Respimat was approved on 01/30/23 through Pts insurance, thereis no longer a need for a formulary alternative as Spiriva is the preferred medication. I have called David Butler to confirm. No answer. No answer, LVM on Pts private cell, informing him of the above information. Mirella Madden RN Department of Pulmonary 5C, [facility] / Pager: [phone] * Telephone Encounter - Mirella Madden RN - 02/09/2023 12:18 PM EDT Copied from CRM #[id number]. Topic: Specialty Dept CRMs - Generic Call >> Feb 08, 2023 9:07 AM Leroy Recinos wrote: Specialist: Micki Tillman MD Relationship (if other than patient-full name): patient Reason for Call: Patient calling back to provide name of alternative inhaler that patient's insurance will cover. Patient states that insurance will cover Incruse Ellipta. Patient's preferred pharmacy is [phone] - [address] [place] [address]. Reference encounter 01/27/23. documented in this encounter Plan of Treatment Not on file documented as of this encounter Visit Diagnoses Not on filedocumented in this encounter Care Teams Business Excellence Manager Relationship Specialty Start Date End Date Linda Mccray MD [address] [place] [address] PCP - General Family Medicine 10/20/16 documented as of this encounter
--- OUTSIDE RECORDS SUMMARY | 2024-07-17 21:47 | XMS_ITS | Encounter Summary ---
Author Organization [facility] Address [address] [place] [address] Care Team Providers Care Intake Nurse Name Role Phone Unavailable Primary Care Provider Unavailabl e Encounter Details Date Type Department Care Team (Late st Contact Info) Description 01/30/2019 Historical Results Only [facility] Lab - Main [address] [address] Linda Mccray MD [address] [place] [phone] Social History Tobacco Use Types Packs/Day [...] Results * (ABNORMAL) PROTIME (01/30/2019 14:36 EDT) [facility] 1.9(H) 0.9 - 1.2 01/30/2019 15:50 EDT [facility] Comment: Low intensity INR: 2.0-3.0 High intensity INR: Consult Coag Dept. 01/30/2019 14:3 6 EDT 01/30/2019 14:36 EDT Narrative [facility] - 04/20/2019 12:34 EDT Does PT Have a Latex Allergy? NO Linda Mccray MD HEMATOLOGY & PF4 ORD ERABLES [facility] documented in this encounter Visit Diagnoses Not on filedocumented in this encounter
--- OUTSIDE RECORDS SUMMARY | 2024-07-17 21:47 | XMS_ITS | Encounter Summary ---
[place] [address] Care Team Providers Care Drill Rig Operator Helper Name Role Phone Linda Mccray MD Primary Care Provider [phone] Reason for Referral * Consultation (Routine) - Closed Specialty Diagnoses / Procedures Referred By Lucas leach Referred To Contact Pulmonology Diagnoses Chronic bullous emphysema Melanie Segal APRN [facility] [place] [address] [facility] Pulmonology [address] [place] [id number] Referral ID Status Reason Start Date Expiration Date V isits Requested Visits Authorized [id number] Closed Consult, Test & Treat 07/15/2022 07/15/2023 1 1 Encounter Details Date Type Department Care Team (Late st Contact Info) Description 07/15/2022 1:00 PM EDT Office Visit [place] [id number] Mleanie Segal APRN [facility] [place] [address] Chronic bullous emphysema; Pulmonary nodule Social History Tobacco Use Types Packs/Day Years [...] Sign Reading Time Taken Comments Blood Pressure 129/67 07/15/2022 1:10 PM EDT Pulse 71 07/15/2022 1:10 PM EDT Temperature 36.2 ??C (97.1 ??F) 07/15/2022 1:10 PM ED T Respiratory Rate 20 07/15/2022 1:10 PM EDT Oxygen Saturation 98% 07/15/2022 1:10 PM EDT Inhaled Oxygen Concentration - - Weight 76 kg (167 lb 8.8 oz) 07/15/2022 1:10 PM EDT Height 185 cm (6' 0.84) 07/15/2022 1:10 PM EDT Body Mass Index 22.21 07/15/2022 1:10 PM EDT documented in this encounter Progress Notes * Melanie Segal, ANIMAL ECOLOGIST - 07/15/2022 1:00 PM EDT Images from the original note were not included. PULMONARY NODULE CLINIC OUTPATIENT CONSULTATION NOTE SECTIONS OF THORACIC SURGERY & INTERVENTIONAL PULMONOLOGY [place] [address] FAX: PATIENT NAME: London Neri : 1950 MEDICAL RECORD: [id number] DATE OF SERVICE: 07/15/2022 REFERRING PHYSICIAN: Navin Khalil MD PRIMARY CARE PHYSICIAN: Linda Mccray MD Chief Complaint: I don't know why I'm here today History of Present Illness: Mr. London Neri is a 72 y.o. gentleman who has been sent to the Pulmonary Nodule Clinic in consultation regarding a solitary pulmonary nodule that was incidentally found on a CT chest during a hospital admission 12/12/2021-12/16/2021 for a fall and fractured left rib 5-12 and chest wall hematoma. In speaking to Mr. London Neri, he is overall feeling well today. He walks 4 miles every day on flat ground. He can walk up over 2 flights of stairs without stopping. He has phlegm production a few times a day with clear sputum. He has night sweats about weekly. In February he was hospitalized for 5 days at [facility] with chest tightness and shortness of breath and was diagnosed with amiodarone t oxicity. He has since stopped the amiodarone and his symptoms have improved. He was diagnosed with A fib 1.5 years ago and he underwent a cardioversion with success. He denies recent weight loss, hemoptysis, wheeze, change in appetite, nausea, vomiting, and diarrhea. Review of Systems: A 12 point ROS was negative aside from as listed in the HPI. Past Medical/Surgical History: Patient Active Problem List Diagnosis Code ??? Clostridium difficile colitis A04.72 ??? Encounter for screening colonoscopy Z12.11 ??? Chronic bullous emphysema J43.9 ??? Pacemaker - dual lead Medtronic Z95.0 ??? Near syncope R55 ??? Recurrent spontaneous pneumothorax J93.83 ??? Typical atrial flutter I48.3 ??? Aortic insufficiency I35.1 ??? AV block, complete I44.2 ??? Current use of snf anticoagulation Z79.01 ??? Heart block I45.9 ??? Lung blebs J43.9 ??? Other air leak J93.82 ??? Postoperative hematoma [id number] ??? 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 Tension pneumothorax, spontaneous J93.0 ??? 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 Authorizing Provider AMIOdarone (PACERONE) 400 mg Tablet Take 1 tablet by mouth daily. 02/18/22 Elmer Minor PA lidocaine (Lidoderm) 5% Adhesive Patch, Medicated Apply 1 patch onto the skin daily. (leave on for 12 hours and remove for 12 hours) 12/16/21 Albina Quach APRN acetaminophen (Tylenol) 325 mg Tablet Take 2 tablets by mouth every 8 hours. 12/16/21 Albina Quach APRN warfarin (Coumadin) 5 mg Tablet Take 1 tablet by mouth daily. 12/16/21 Albina Quach APRN tamsulosin (Flomax) 0.4 mg Capsule Take 1 capsule by mouth daily. 08/24/21 Matti Cole MD betamethasone dipropionate (DIPROLENE) 0.05 % Cream APPLY SMALL AMOUNT EXTERNALLY TO RASH TWICE DAILY FOR NO MORE THAN 2 WEEKS 01/15/21 PROVIDER, HISTORICAL aspirin 81 mg Tablet, Delayed Release (E.C.) TAKE ONE TABLET BY MOUTH EVERY DAY 10/13/16 PROVIDER, HISTORICAL Labs: Lab Results Component Value Date WBC 5.8 12/15/2021 HGB 12.4 (L) 12/15/2021 HCT 36.6 (L) 12/15/2021 MCV 88.8 12/15/2021 PLATELET 176 12/15/2021 Chemistry Component Value Date/Time NA 137 12/16/2021 0622 K 4.3 12/16/2021 0622 CL 102 12/16/2021 0622 CO2 23 12/16/2021 0622 BUN 17 12/16/2021 0622 CREATININE 0.88 12/16/2021 0622 Component Value Date/Time CALCIUM 9.1 12/16/2021 0622 ALKPHOS 47 12/16/2021 0622 AST 18 12/16/2021 0622 ALT 12 12/16/2021 0622 BILITOT 0.8 12/16/2021 0622 Allergies: Allergies Allergen Reactions ??? Amiodarone Analogues Other (See Comments) Interferes with warfarin Objective: Patient Vitals for the past 24 hrs: Temp Pulse Resp BP SpO2 07/15/22 1310 36.2 ??C (97.1 ??F) 71 20 129/67 98 % General: This is a 72 y.o. male, NAD HEENT: Moist mucous membranes, sclera are white Neck: Supple, trachea is midline, no gross deformity Cardiovascular: RRR Respiratory: Clear to auscultation bilaterally GI: soft, nt, nd Extremities: no LE edema noted, no clubbing Integument: No obvious rash Pertinent Imaging: (Images personally reviewed) 07/15/2022 CT chest: Left upper lobe pleural based nodule has resolved, bullous emphysema present. 12/14/2021 CT chest: Left upper lobe pleural based nodule measuring 1.6 cm, bullous emphysema Assessment: London Neri is a 72 y.o. gentleman who has been sent to the multidisciplinary Pulmonary Nodule Clinic at [facility] for consultation regarding a left upper lobe pleural based solitary pulmonary nodule first identified on imaging from 12/11/2021. He has a 20 PY smoking history; last cigarette was 1983. We reviewed his imaging together in detail and discussed the differential diagnosis including that his previous nodule was likely inflammatory versus a hemothorax from his rib fractures. Due to the complete resolution of the nodule we agreed upon no further repeat imaging. Mr. Neri is interested in a pulmonology referral due to his daily cough and sputum production and this this is appropriate due to his severe bullous emphysema. I have additionally ordered a pulmonary function test to be scheduled with his appointment in pulmonology per his request. The patient's performance status using the ECOG assessment tool is 0 (fully active, no restrictions). Mr. Lisa Neri was provided ample time to ask questions which were answered to his liking. Recommendations: ?? No additional lung imaging is needed ?? Referral to pulmonology with PFTs ?? Follow-up on an as needed bases ?? Note to be sent to Linda Mccray MD I personally performed a total of 60 minutes or greater of aggregate time involved in patient evaluation, reviewing medical records, interpreting diagnostic studies (imaging and/or labs), formulatingmy plan, and documentation of this consultation note. Melanie Segal APRN, 07/15/2022, 1:17 PM Interventional Pulmonology Section of Pulmonary & Critical Care Pager: [phone] documented in this encounter Plan of Treatment Scheduled Referrals Name Type Priority Associated Diagnoses Order Schedule Referral to Pulmonology Outpatient Referral Routine Chronic bullous emphysema Ordered: 07/15/2022 documented as of this encounter Results * Pulmonary Function Testing (01/23/2023 1:48 PM EDT) FVC Actual Pre-BD 4.92 L COMPAS PFT FVC Pre-BD % of Predicted 113 % COMPAS PFT FVC Predicted 4.36 L COMPAS PFT FVC Pre-BD Z-Score 0.79 COMPAS PFT FVC Lower Limits of Normal 3.20 L COMPAS PFT FEV1 Actual Pre-BD 3.40 L COMPAS PFT FEV1 Pre-BD % of Predicted 104 % COMPAS PFT FEV1 Predicted 3.26 L COMPAS PFT FEV1 Pre-BD Z-Score 0.26 COMPAS PFT FEV1 Lower Limits of Normal 2.32 L COMPAS PFT FEV1 / FVC Actual Pre-BD 69 % COMPAS PFT FEV1/FVC Pre-BD Z-Score -0.74 COMPAS PFT FEV1 / FVC LLN 61 % COMPAS PFT [id number] Actual Pre-BD 2.04 L/s COMPAS PFT CMX40-13 Pre-BD % of Predicted 86 % COMPAS PFT DTT35-67 Predicted 2.38 L/s COMPAS PFT DOA01-87 Pre-BD Z-Score -0.35 COMPAS PFT DLCO Hb Actual Pre-BD 12.73 mL/min/mmHg COMPAS PFT DLCO Hb Pre-BD % of Predicted 48 % COMPAS PFT DLCO Hb Pre-BD Z-Score -3.61 COMPAS PFT DLCO Hb Predicted 26.74 mL/min/mmHg COMPAS PFT DLCO UNC ACT PRE-BD 12.73 mL/min/mmHg COMPAS PFT DLCO UNC PRE-BD % of PRED 48 % COMPAS PFT DLCO UNC PRE-BD Z-SCORE -3.61 % COMPAS PFT DLCO UNC Predicted 26.74 mL/min/mmHg COMPAS PFT DLCO/VA Actual Pre-BD 1.91 mL/min/mmHg /L COMPAS PFT DLCO/VA Pre-BD % of Predicted 48 % COMPAS PFT DLCO/VA Pre-BD Z-Score -3.49 COMPAS PFT DLCO/VA Predicted 3.98 mL/min/mmHg /L COMPAS PFT Narrative COMPAS PFT - 01/23/2023 1:48 PM EDT FINDINGS: FEV1, FVC, and FEV1/VC are within normal limits. Diffusion capacity not adjusted for hemoglobin is reduced. IMPRESSION: Normal spirometry. Moderate reduction in diffusing capacity (DLCO 40 to 60%). Isolated reduced DLCO suggests the possibility of disease of the pulmonary vasculature, early emphysema, early interstitial disease, anemia, or carboxyhemoglobinemia/heavy tobacco smoking. Procedure Note Dalton Marx MD - 01/24/2023 FINDINGS: FEV1, FVC, and FEV1/VC are within normal limits. Diffusioncapacity not adjusted for hemoglobin is reduced. IMPRESSION: Normal spirometry. Moderate reductionin diffusing capacity (DLCO 40 to 60%). Isolated reduced DLCO suggests the possibility ofdisease of the pulmonary vasculature, early emphysema, early interstitial disease, anemia, or carboxyhemoglobinemia/heavy tobacco smoking. Melanie Segal APRN PFT ORDERABLES COMPAS PFT documented in this encounter Visit Diagnoses Diagnosis Chronic bullous emphysema Emphysematous bleb Pulmonary nodule Solitary pulmonary nodule Chronic bullous emphysema Emphysematous bleb documented in this encounter Care Teams Drill Rig Operator Helper Relationship Specialty Start Date End Date Linda Mccray MD [address] [place] [id number] PCP - General Family Medicine 10/20/16 documented as of this encounter
--- OUTSIDE RECORDS SUMMARY | 2024-07-17 21:47 | XMS_ITS | Encounter Summary ---
Author Organization [facility] Address [address] [place] [address] Care Team Providers Care Cement Mason Apprentice Name Role Phone Unavailable Primary Care Provider Unavailabl e Encounter Details Date Type Department Care Team (Late st Contact Info) Description 02/04/2020 Orders Only [facility] Cardiology Clinic [address] [place] [address] Sue Connre NP Heart block (Primary Dx) Social History Tobacco Use Types Packs/Day Years Used Date Smoking Tobacco: Never Assessed Sex and Gender Information Value Date Recorded Sex Assigned at Not on file Gender Identity Male 05/12/2020 9:42 EDT Sexual Orientation Not on file documented as of this encounter Plan of Treatment Not on file documented as of this encounter Procedures Procedure Name Priority Date/Time Associated Diagnosis Comments CARDIAC IMPLANT CHECK - REMOTE MONITOR Routine 02/06/2020 8:44 EDT Heart block documented in this encounter Results * CARDIAC IMPLANT CHECK - REMOTE - PACEMAKER (02/06/2020 8:44 EDT) Anatomical Region Laterality Modality Device Narrative 02/06/2020 8:45 EDT Remote pacemaker interrogation shows normal device function. No arrhythmias. Battery life declining. See scanned documents for full details. Procedure Note Michelle Lindo APRN - 02/06/2020 Remote pacemaker interrogation shows normal device function. Noarrhythmias. Battery life declining. See scanned documents for fulldetails. Sue Conner NP CV IMPLANTABLE CARDI AC DEVICE documented in this encounter Visit Diagnoses Diagnosis Heart block- Primary Conduction disorder, unspecified documented in this encounter
--- OUTSIDE RECORDS SUMMARY | 2024-07-17 21:47 | XMS_ITS | Encounter Summary ---
Author Organization [facility] Address [facility] [place] [address] Care Team Providers Care Mold Release Worker Name Role Phone Linda Mccray MD Primary Care Provider [phone] Encounter Details Date Type Department Care Team (Latest Contact Info) Description 01/13/2022 10:15 AM EDT - 01/13/2022 11:59 PM EDT Hospital Encounter XRay at [address] [place] [address] Annemarie Gomez, PROSTHETICS TECHNICIAN [facility] [place] [address] Trauma of chest, subsequent encounter Discharge Disposition: Home Social History Tobacco Use Types Packs/Day Years [...] PM EDT documented as of this encounter Medications at Time of Discharge Medication Sig Dispensed Refills Start Date End Date warfarin (Coumadin) 5 mg Tablet Take 1 tablet by mouth daily. 5 tablet 12/16/2021 enoxaparin (Lovenox) 120 mg/0.8 mL Syringe Inject 0.8 mLs subcutaneously nightly for 30 days. 24 mL 12/16/2021 01/15/2022 lidocaine (Lidoderm) 5% Adhesive Patch, Medicated Apply 1 patch onto the skin daily. (leave on for 12 hours and remove for 12 hours) 30 patch 12/16/2021 07/15/2022 acetaminophen (Tylenol) 325 mg Tablet Take 2 tablets by mouth every 8 hours. 30 tablet 1 12/16/2021 07/15/2022 tamsulosin (Flomax) 0.4 mg Capsule Take 1 capsule by mouth daily. 90 tablet 5 08/24/2021 08/04/2022 betamethasone dipropionate (DIPROLENE) 0.05 % Cream APPLY SMALL AMOUNT EXTERNALLY TO RASH TWICE DAILY FOR NO MORE THAN 2 WEEKS 01/15/2021 08/08/2023 aspirin 81 mg Tablet, Delayed Release (E.C.) TAKE ONE TABLET BY MOUTH EVERY DAY 3 10/13/2016 08/08/2023 documented as of this encounter Plan of Treatment Not on file documented as of this encounter Procedures Procedure Name Priority Date/Time Associated Diagnosis Comments XR CHEST PA AND LATERAL Routine 01/13/2022 10:54 AM EDT Trauma of chest, subsequent encounter documented in this encounter Results * XR Chest PA & Lateral (Generic) (01/13/2022 10:54 AM EDT) Anatomical Region Laterality Modality Chest N/A Digital Radiogra phy Impressions 01/13/2022 11:17 AM EDT 1. Persistent, unchanged left hemothorax with progressive healing of the bilateral displaced rib fractures. No acute abnormality. 2. Unchanged findings of COPD. Thank you for letting us participate in the care of this patient. ??If you are a health care provider and have any questions regarding this report, please contact the number below. ??For patients who have questions please contact the health nursing care partner that requested your imaging first. ? Narrative 01/13/2022 11:17 AM EDT EXAMINATION: XR CHEST PA AND LATERAL (GENERIC) CLINICAL HISTORY: FU left hemothorax, evaluate for interval change, prior imagin in [facility] thank you TECHNIQUE: PA and lateral views of the chest COMPARISON: Chest radiographs October 21, 2016 and December 29, 2021; CT chest December 14, 2021 FINDINGS: -Left upper chest pulse generator has 2 intact cardiac leads. -Aortic and mitral valve prostheses are intact and unchanged position. -Sternotomy wires are intact. Coarse linear opacities throughout the lungs with an apical predominance and pulmonary hypoinflation are unchanged. Loculated left hemothorax, similar in size to December 29, 2021. No pneumothorax or right pleural effusion. Cardiomediastinal contours and pulmonary vasculature are normal. No free air below the diaphragm or focal extrathoracic soft tissue abnormality. Thoracic spondylosis. Multiple, displaced bilateral rib fractures are unchanged in alignment but have increased callus development. Procedure Note Marci Martínez MD - 01/13/2022 EXAMINATION: XR CHEST PA AND LATERAL (GENERIC) CLINICAL HISTORY: FU left hemothorax, evaluate for interval change, priorimagin in [facility] thank you TECHNIQUE: PA and lateral views of the chest COMPARISON: Chest radiographs October 21, 2016 and December 29, 2021; CT chest 2021 FINDINGS: -Left upper chest pulse generator has 2 intact cardiac leads. -Aortic and mitral valve prostheses are intact and unchanged position. -Sternotomy wires are intact. Coarse linear opacities throughout the lungs with an apical predominanceand pulmonary hypoinflation are unchanged. Loculated left hemothorax, similarin size to December 29, 2021. No pneumothorax or right pleural effusion. Cardiomediastinal contours and pulmonary vasculature are normal. No free air below the diaphragm or focal extrathoracic soft tissueabnormality. Thoracic spondylosis. Multiple, displaced bilateral rib fractures areunchanged in alignment but have increased callus development. IMPRESSION 1. Persistent, unchanged left hemothorax with progressive healing of the bilateral displaced rib fractures. No acute abnormality. 2. Unchanged findings of COPD. Thank you for letting us participate in the care of this patient. If youare a health care provider and have any questions regarding this report,please contact the number below. For patients who have questions please contactthe health nursing care partner that requested your imaging first. Electronically signed by: Marci Martínez MD, [facility]([phone]), at 01/13/2022 11:17 AM Annemarie Gomez PROSTHETICS TECHNICIAN IMG DX ORDERABLES documented in this encounter Visit Diagnoses Diagnosis Trauma of chest, subsequent encounter documented in this encounter Care Teams Mold Release Worker Relationship Specialty Start Date End Date Linda Mccray MD [address] [place] [address] PCP - General Family Medicine 10/20/16 documented as of this encounter
--- OUTSIDE RECORDS SUMMARY | 2024-07-17 21:47 | XMS_ITS | Encounter Summary ---
[place] [address] Care Team Providers Care Utility Tractor Operator Name Role Phone Linda Mccray MD Primary Care Provider [phone] Encounter Details Date Type Department Care Team ([facility] st Contact Info) Description 02/28/2022 Telephone Cardiology at [address] [phone] Rosmery Bush Social History Tobacco Use Types [...] * Telephone Encounter - Rosmery Bush - 02/28/2022 8:36 AM EDT Cardiology records and device remote downloads faxed to PCP. Rosmery Bush EP Scheduling documented in this encounter Plan of Treatment Not on file documented as of this encounter Visit Diagnoses Not on filedocumented in this encounter Care Teams Utility Tractor Operator Relationship Specialty Start Date End Date Linda Mccray MD [address] [place] [address] PCP - General Family Medicine 10/20/16 documented as of this encounter
--- OUTSIDE RECORDS SUMMARY | 2024-07-17 21:47 | XMS_ITS | Encounter Summary ---
Author [facility] [place] [address] Care Team Providers Care Bone Density Technician Name Role Phone Linda Mccray MD Primary Care Provider [phone] Encounter Details Date Type Department Care Team (Latest Contact Info) Description 01/23/2023 1:40 PM EDT - 01/23/2023 11:59 PM EDT Hospital En[place] [address] Chronic bullous emphysema Discharge Disposition: Home Social History Tobacco Use [...] tablet by mouth daily. 5 tablet 12/16/2021 tamsulosin (Flomax) 0.4 mg Capsule Take 1 capsule by mouth daily. 90 tablet 3 08/04/2022 08/08/2023 tiotropium bromide (Spiriva Respimat) 2.5 mcg/actuation MistIndications:Centri lobular emphysema Inhale 2 puffs into the lungs daily. 1 each 12 01/23/2023 01/24/2023 sildenafiL (VIAGRA) 100 mg Tablet Take 1 tablet by mouth as needed for Erectile Dysfunction (Do not take more than 1 dose in a 24 hour period.). 60 tablet 08/04/2022 02/20/2023 betamethasone dipropionate (DIPROLENE) 0.05 % Cream APPLY SMALL AMOUNT EXTERNALLY TO RASH TWICE DAILY FOR NO MORE THAN 2 WEEKS 01/15/2021 08/08/2023 aspirin 81 mg Tablet, Delayed Release (E.C.) TAKE ONE TABLET BY MOUTH EVERY DAY 3 10/13/2016 08/08/2023 documented as of this encounter Plan of Treatment Not on file documented as of this encounter Procedures Procedure Name Priority Date/Time Associated Diagnosis Comments COMMON PULMONARY FUNCTION TEST Routine 01/23/2023 1:48 PM EDT Chronic bullous emphysema documented in this encounter Results * Pulmonary Function Testing [...] / FVC LLN 61 % COMPAS PFT [id number] Actual Pre-BD 2.04 L/s COMPAS PFT ADS68-80 Pre-BD % of Predicted 86 % COMPAS PFT VNC88-83 Predicted 2.38 L/s COMPAS PFT CDG74-25 Pre-BD Z-Score -0.35 COMPAS PFT DLCO Hb [...] Diagnoses Diagnosis Chronic bullous emphysema Emphysematous bleb documented in this encounter Care Teams Bone Density Technician Relationship Specialty Start Date End Date Linda Mccray MD [address] [place] [address] PCP - General Family Medicine 10/20/16 documented as of this encounter
--- OUTSIDE RECORDS SUMMARY | 2024-07-17 21:47 | XMS_ITS | Encounter Summary ---
Author Organization [facility] Address [facility] [place] [address] Care Team Providers Care Sales Process Manager Name Role Phone Linda Mccray MD Primary Care Provider [phone] Encounter Details Date Type Department Care Team (Late st Contact Info) Description 03/08/2022 Orders Only Cardiology at [address] [phone] Elmer Minor, PA [facility] [place] [address] Longstanding persistent atrial fibrillation Social History Tobacco Use Types [...] as of this encounter Visit Diagnoses Diagnosis Longstanding persistent atrial fibrillation documented in this encounter Care Teams Sales Process Manager Relationship Specialty Start Date End Date Linda Mccray MD [address] [place] [address] PCP - General Family Medicine 10/20/16 documented as of this encounter
--- OUTSIDE RECORDS SUMMARY | 2024-07-17 21:47 | XMS_ITS | Encounter Summary ---
Author Organization [facility] [place] [address] Care Team Providers Care Personal Health Coach Name Role Phone Linda Mccray MD Primary Care Provider [phone] Encounter Details Date Type Department Care Team (Late st Contact Info) Description 06/29/2023 Telephone Pulmonology at [facility] [place] [phone] Mirella Madden RN Social History Tobacco Use Types [...] Telephone Encounter - Mirella Madden RN - 06/29/2023 12:29 PM EDT Copied from [facility] #[id number]. Topic: Specialty Dept CRMs - Generic Call >> Jun 29, 2023 11:51 AM Leonardo Davidson wrote: Specialist: Micki Tillman MD Relationship (if other than patient-full name): Patient Reason for Call: Patient states they are ill and thought appointment today was this afternoon, not this morning. FUV rescheduled for 08/24/23. documented in this encounter Plan of Treatment Not on file documented as of this encounter Visit Diagnoses Not on filedocumented in this encounter Care Teams Personal Health Coach Relationship Specialty Start Date End Date Linda Mccray MD [address] [place] [address] PCP - General Family Medicine 10/20/16 documented as of this encounter
--- OUTSIDE RECORDS SUMMARY | 2024-07-17 21:47 | XMS_ITS | Encounter Summary ---
Author Organization [facility] Address [address] [place] [address] Care Team Providers Care Program Consultant Name Role Phone Unavailable Primary Care Provider Unavailabl e Reason for Visit * Reason Onset Date Comments Coordination Of Care 02/06/2020 Encounter Details Date Type Department Care Team ([facility] st Contact Info) Description 02/06/2020 Telephone [facility] Cardiology Clinic [address] [place] [address] Michelle Lindo NP [address] [facility] [address] [place] [address] Coordination Of Care Social History Tobacco Use Types Packs/Day Years Used Date Smoking Tobacco: Never Assessed Sex and Gender Information Value Date Recorded Sex Assigned at Not on file Gender Identity Male 05/12/2020 9:42 EDT Sexual Orientation Not on file documented as of this encounter Miscellaneous Notes * Telephone Encounter - Carlos Manuel Singer APRN - 02/07/2020 1116 EDT thanks * Telephone Encounter - Crystal García - 02/06/2020 1105 EDT Monthly remote checks already scheduled. Forwarding to Carlos Manuel * Telephone Encounter - Michelle Lindo APRN - 02/06/2020 0846 EDT Crystal can we have Mr Neri send another remote in 1 month for declining generator? Thanks. Please forward on to Carlos Manuel as an FYI. documented in this encounter Plan of Treatment Not on file documented as of this encounter Visit Diagnoses Not on filedocumented in this encounter
--- OUTSIDE RECORDS SUMMARY | 2024-07-17 21:47 | XMS_ITS | Encounter Summary ---
Author Organization [facility] Address [address] [place] [address] Care Team Providers Care Tool Maker Name Role Phone Unavailable Primary Care Provider Unavailabl e Encounter Details Date Type Department Care Team ([facility] st Contact Info) Description 07/19/2017 Historical Results Only [facility] - Main [address] [address] Sue Conner, [employer]BER Social History Tobacco Use Types Packs/Day Years Used Date Smoking Tobacco: Never Assessed Sex and Gender Information Value Date Recorded Sex Assigned at Not on file Gender Identity Male 05/12/2020 9:42 EDT Sexual Orientation Not on file documented as of this encounter Plan of Treatment Not on file documented as of this encounter Procedures Procedure Name Priority Date/Time Associated Diagnosis Comments TSH Routine 07/19/2017 11:05 EDT documented in this encounter Results * TSH (07/19/2017 11:05 EDT) THYROID [facility] - [facility] 2.67 0.35 - 5.50 uIU/mL 07/19/2017 12:08 EDT [facility] 07/19/2017 11:0 5 EDT 07/19/2017 11:05 EDT Narrative [facility] - 07/19/2017 12:08 EDT Does PT Have a Latex Allergy? NO Sue Conner B[employer]BER CHEMISTRY & BLOOD GA S ORDERABLES [facility] documented in this encounter Visit Diagnoses Not on filedocumented in this encounter
--- OUTSIDE RECORDS SUMMARY | 2024-07-17 21:47 | XMS_ITS | Encounter Summary ---
Author Organization [facility] Address [address] [place] [address] Care Team Providers Care Wellness Assistant Name Role Phone Unavailable Primary Care Provider Unavailabl e Reason for Visit * Reason Onset Date Comments Other 10/22/2019 Encounter Details Date Type Department Care Team ([facility] Contact Info) Description 10/22/2019 Telephone [facility] Cardiology Clinic [address] [place], [place] [address] Sue Conner, SEM[employer] AUTOMATIC SEWING MACHINE OPERATOR Other Social History Tobacco Use Types Packs/Day Years Used Date Smoking Tobacco: Never Assessed Sex and Gender Information Value Date Recorded Sex Assigned at Not on file Gender Identity Male 05/12/2020 9:42 EDT Sexual Orientation Not on file documented as of this encounter Miscellaneous Notes * Telephone Encounter - Guillermo Bruce - 11/14/2019 1405 EST Pt aware of the remote transmissions going automatically and to keep his scheduled Cardiology appts. Records faxed to Dr. Jason. Pt would like to be notified once we receive the transmissions with results of transmissions. * Telephone Encounter - Guillermo Bruce - 11/13/2019 1410 EST optvm to call back * Telephone Encounter - Carlos Manuel Singer APRN - 11/13/2019 1305 EST Keyur, can you call patient and let him know we set him up for monthly transmission for remote downloads. He should not have to send as we will get them automatically. He does not have to schedule sooner appointment with Dr. Jason. We will see him when he gets back in January. If there is any concernwith the device our office will call him. * Telephone Encounter - Guillermo Bruce - 11/13/2019 1051 EST Pt called back, he is in [facility] until Early January. He is wondering if he could do another pacer transmission to check on battery life? If he needs to be seen he is set up with Cardiology there (no appt until 12/24/19)- [facility] Junior Art Director, Dr. Jason. . He asked that his records be sent to them so that they have them. I will send his records. Carlos Manuel can you please advise on FU plans for the pt? Thanks * Telephone Encounter - Guillermo Bruce - 11/13/2019 1043 EST Left another msg for pt to call back to schedule appointment for pacer check tracie as battery is low * Telephone Encounter - Guillermo Bruce - 11/01/2019 1542 EST lmoptvm to call back to sched FU appt molly/Carlos Manuel * Telephone Encounter - Sue Conner APRN - 10/22/2019 0929 EST Please call pt. And let him know we received his pacemaker transmission and need to see him back earlier than January because his battery is getting low. He could be seen by Carlos Manuel at the end of Oct. Sue Sheikh documented in this encounter Plan of Treatment Not on file documented as of this encounter Visit Diagnoses Not on filedocumented in this encounter
--- OUTSIDE RECORDS SUMMARY | 2024-07-17 21:47 | XMS_ITS | Encounter Summary ---
Author Organization [facility] [place] [address] Care Team Providers Care Insole Doubler Name Role Phone Linda Mccray MD Primary Care Provider [phone] Encounter Details Date Type Department Care Team (Late st Contact Info) Description 02/07/2023 Ancillary Procedure Radiology Library at [facility] [place] [id number] Linda Mccray MD [address] [place] [address] Social History Tobacco Use Types Packs/Day Years [...] Procedure Name Priority Date/Time Associated Diagnosis Comments FILM LIBRARY STORAGE ONLY DX SHOULDER Routine 02/07/2023 12:00 AM EDT documented in this encounter Results * Film Library- Storage Only DX Shoulder (02/07/2023 12:00 AM EDT) Narrative [facility] - 03/29/2023 4:43 AM EDT This exam is auto-finalizing. It's purpose is for storage only. Linda Mccray MD [facility] FILM LIBRARY ORD ERABLES [place], [place] documented in this encounter Visit Diagnoses Not on filedocumented in this encounter Care Teams Insole Doubler Relationship Specialty Start Date End Date Linda Mccray MD [address] [place] [address] PCP - General Family Medicine 10/20/16 documented as of this encounter
--- OUTSIDE RECORDS SUMMARY | 2024-07-17 21:47 | XMS_ITS | Encounter Summary ---
Author Organization [facility] [place] [address] Care Team Providers Care Rounder And Backer Name Role Phone Linda Mccray MD Primary Care Provider [phone] Reason for Referral * Consultation (Routine) - Closed Specialty Diagnoses / Procedures Referred By Lucas leach Referred To Contact Thoracic Surgery Diagnoses Recurrent spontaneous pneumothorax H/O asbestos exposure Patient with h/o Loculated hemothorax and LLL nodule. Will need [address] With contrast in 6 months (approx July 2022) Kendall Lucas MD [facility] [place] [address] Melanie Segal, [facility] [place] [address] Referral ID Status Reason Start Date Expiration Date V isits Requested Visits Authorized [id number] Closed Consult, Test & Treat 01/25/2022 01/25/2023 1 1 Reason for Visit * Reason Comments Follow-up Chest Pain * Consultation (Routine) - Closed Specialty Diagnoses / Procedures Referred By Lucas leach Referred To Contact Thoracic Surgery Diagnoses Hemothorax on left - Hemothorax on left Annemarie Gomez, [facility] [place] [address] [facility] [address] [place] [id number] Referral ID Status Reason Start Date Expiration Date V isits Requested Visits Authorized [id number] Closed Consult, Test & Treat 01/07/2022 01/07/2023 1 1 Encounter Details Date Type Department Care Team (Late st Contact Info) Description 01/25/2022 1:00 PM EDT Office [place] [address] Kendall Lucas MD [facility] [place] [address] Recurrent spontaneous pneumothorax; H/O asbestos exposure Social History Tobacco Use Types Packs/Day Years Used Date Smoking Tobacco: Former Cigarettes 6 - 1983 Smokeless Tobacco: Former Quit: [...] Sign Reading Time Taken Comments Blood Pressure 131/78 01/25/2022 12:59 PM EDT Pulse 84 01/25/2022 12:59 PM EDT Temperature 36.6 ??C (97.9 ??F) 01/25/2022 12:59 PM E DT Respiratory Rate 20 01/25/2022 12:59 PM EDT Oxygen Saturation 98% 01/25/2022 12:59 PM EDT Inhaled Oxygen Concentration - - Weight 77.1 kg (170 lb) 01/25/2022 12:59 PM EDT Height 185 cm (6' 0.84) 01/25/2022 12:59 PM EDT Body Mass Index 22.53 01/25/2022 12:59 PM EDT documented in this encounter Patient Instructions * Patient Instructions* Carmen Ferrer RN - 01/25/2022 3:24 PM EDT Thank you for visiting Dr. Lucas in clinic 01/25/22 Dr. Lucas would like you to be seen by the pulmonary nodule clinic for CT scan and a visit in about 6 months. You will receive a call to schedule this appointment. Exercise each day for 30 minutes or longer. Daily aerobic exercise for at least 30 minutes will help improve your endurance and improve the breathing capacity of your lungs. This means that you are breathing hard, your heart is beating fast and that you are sweating. Examples of this include walking, biking, swimming, and using a treadmill or stationary bike. Please call Thoracic surgery at with any questions or concerns. documented in this encounter H&P Notes * Kendall Lucas MD - 01/25/2022 1:00 PM EDT Thoracic Surgery Attending Outpatient Consultation Note MD Winifred Eason PA-C [place], [place] [address] FAX: Date of Consultation: 01/25/2022 This consultation has been requested by PCP: Linda Mccray MD Referring Physician: Annemarie Gomez APRN [facility] [place] [address] Purpose for Consultation: persistent left hemothorax 2/2 GLF with associated rib fractures HPI: [place] Neri is a 71 y.o. male with PMHx of high grade AV block (s/p pacemaker), atrial fibrillation, mechanical mitral and aortic valve replacements (1998, on coumadin), COPD, h/o recurrent spontaneous left pneumothorax (s/p left thoracoscopic partial decortication with blebectomy, talc pleurodesis on 03/06/21 c/b bleeding requiring RTOR for hemostasis) who was admitted to [facility] 12/12/21 after a mechanical fall from standing after slipping on ice and sustaining fractures of left ribs 5-12,with associated chest wall hematoma. Thoracic Surgery was consulted for consideration of rib fixation during admission however his pain was well controlled and fractures were minimally displaced and o perative intervention was not pursued. He was recently seen in trauma clinic and noted to have persistent persistent left hemothorax. He presents today to discuss possible operative intervention. Today he states he has some pain at his left lateral chest wall but does not require any OTC medications. He has been limiting his movements and is not doing any lifting. He has also been unable to exercise and is experiencing mild SOB. He has also noticed cough with specks of blood in the mucus x 3 weeks which is new. He denies wheeze, fever, chills, nausea, vomiting, dysphagia, weight loss. Past Medical History: Patient Active Problem List Diagnosis Date Noted ??? Rib fractures 12/12/2021 ??? AV block, complete 03/30/2021 ??? Lung blebs 03/30/2021 ??? Other air leak 03/30/2021 ??? Postoperative hematoma 03/30/2021 ??? Tension pneumothorax, spontaneous 03/30/2021 ??? Typical atrial flutter 03/15/2021 ??? Recurrent spontaneous pneumothorax 03/05/2021 ??? Near syncope 07/30/2020 ??? Pacemaker - dual lead Medtronic 07/29/2020 ??? Aortic insufficiency 05/08/2020 ??? Current use of terminal make up operator anticoagulation 05/08/2020 ??? Heart block 05/08/2020 ??? Chronic bullous emphysema 11/18/2016 ??? Clostridium difficile colitis 11/07/2016 ??? Encounter for screening colonoscopy 11/07/2016 ??? Heart valve replaced 11/30/2012 Past Medical History: Diagnosis Date ??? A-fib ??? C. difficile colitis ??? COPD (chronic obstructive pulmonary disease) ??? Emphysema of lung ??? Hemorrhoid ??? Pacemaker - dual lead Medtronic 07/29/2020 ??? Pneumothorax on left Past Surgical History: Past Surgical History: Procedure Laterality Date ??? AORTIC VALVE REPLACEMENT 1998 ??? CARDIAC VALVE REPLACEMENT 1984 Aortic Valve ??? CARDIAC VALVE REPLACEMENT 1998 Mechanical Aortic and Mitral ??? HERNIA REPAIR ??? MITRAL VALVE REPLACEMENT 1998 ??? PRO BRONCHOSCOPY, DIAGNOSTIC Left 03/06/2021 BRONCHOSCOPY, DIAGNOSTIC (WRVU 2.78) performed by Kendall Lucas MD at [facility] MAIN OR ??? PRO COLONOSCOPY, REMV LESN, SNARE N/A 01/26/2017 COLONOSCOPY, POLYPECTOMY, REMOVAL LESION BY SNARE (WRVU 4.67) performed by Lena Clark MD at [facility] ENDOSCOPY ??? PRO THORACOSCOPY SURG W/PLEURODESIS Left 03/06/2021 @THORACOSCOPY, SURG; W PLEURODESIS (WRVU 10.83) performed by Kendall Lucas MD at [facility] MAIN OR ??? PRO THORACOSCOPY W RESECTION-PLICATION EMPHYSEMA LUNG UNILATERAL Left 03/06/2021 @THORACOSCOPY, SURG; W/RESC-PLICATION EMPHYSEMATOUS LUNG, UNILATERAL (WRVU 27) performed by Kendall Lucas MD at [facility] MAIN OR ??? PRO THORACOSCOPY W/PARTIAL PULMONARY DECORTICATION Left 03/06/2021 @THORACOSCOPY, SURG; W PART. DECORTICATION (WRVU 18.78) performed by Kendall Lucas MD at [facility] MAIN OR ??? PRO THORACOSCOPY W/PARTIAL PULMONARY DECORTICATION Left 03/09/2021 @THORACOSCOPY, SURG; W PART. DECORTICATION (WRVU 18.78) performed by Kendall Lucas MD at [facility] MAIN OR ??? PRO THORACOTOMY, CTRL TRAUMA BLEED Left 03/09/2021 @THORACOTOMY WEXPL,CONTROL BLDNG (WRVU 25.28) performed by Kendall Lucas MD at [facility] MAIN OR Medications: Outpatient Medications Marked as Taking for the 01/25/22 encounter (Office Visit) with Kendall Lucas MD Medication Sig Dispense Refill ??? lidocaine (Lidoderm) 5% Adhesive Patch, Medicated Apply 1 patch onto the skin daily. (leave on for 12 hours and remove for 12 hours) 30 patch 0 ??? acetaminophen (Tylenol) 325 mg Tablet Take 2 tablets by mouth every 8 hours. 30 tablet 1 ??? warfarin (Coumadin) 5 mg Tablet Take 1 tablet by mouth daily. 5 tablet 0 ??? tamsulosin (Flomax) 0.4 mg Capsule Take 1 capsule by mouth daily. 90 tablet 5 ??? betamethasone dipropionate (DIPROLENE) 0.05 % Cream APPLY SMALL AMOUNT EXTERNALLY TO RASH TWICEDAILY FOR NO MORE THAN 2 WEEKS ??? aspirin 81 mg Tablet, Delayed Release (E.C.) TAKE ONE TABLET BY MOUTH EVERY DAY 3 Allergies: No Known Allergies Family History: Non-contributory Social History: Social History Socioeconomic History ??? Marital status: Spouse name: Not on file ??? Number of children: Not on file ??? Years of education: Not on file ??? Highest education level: Not on file Occupational History ??? 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 Smoking status: Former Smoker Packs/day: 1.00 Years: 18.00 Pack years: 18.00 Quit date: 1983 Years since quittin.2 ??? Smokeless tobacco: Former User Quit date: 1982 Vaping Use ??? Vaping Use: Never used Substance and Sexual Activity ??? Alcohol use: Yes Alcohol/week: 5.0 standard drinks Types: 5 Glasses of wine per week ??? Drug use: No ??? Sexual activity: Not on file Other Topics Concern ??? Not on file Social History Narrative ??? Not on file Social Determinants of Health Financial Resource Strain: Not on file Food Insecurity: Not on file Transportation Needs: Not on file Physical Activity: Not on file Housing Stability: Not on file REVIEW OF SYSTEMS: General: Denies fatigue, weight loss, chills, night sweats. Neuro: Denies seizure, TIA, CVA, BARBOSA, visual changes, diplopia, weakness/numbness in extremities Psychiatric: Denies psychiatric diagnoses Cardiovascular: Denies arrythmias, CAD, HTN, family history of cardiac disease, CHF, hyperlipidemia. Respiratory: Denies asthma, COPD, emphysema, wheezing, respiratory infection, TB or exposure to TB.+h/o spontaneous pneumothorax s/p pleurodesis, recent rib fx 2/2 fall GI: denies change in bowel habits : denies change in voiding habits Hematologic: Denies history of DVT, PE Endocrine: denies diabetes mellitus, denies thyroid disease. Musculoskeletal: Denies arthritis, + left rib fracture Integument: Denies skin cancer. Physical Exam: Blood Pressure 131/78 (Patient Position: Sitting) Pulse 84 Temperature 36.6 ??C (97.9 ??F) (Temporal) Respiration 20 Height 185 cm (6' 0.84) Weight 77.1 kg (170 lb) Oxygen Saturation 98% Body Mass Index 22.53 kg/m?? General Appearance: Alert, cooperative, no distress, appears stated age HEENT: PERRL, MMM, non-icteric Neck: Supple, symmetrical, trachea midline, no palpable cervical adenopathy Chest: L VATS scars noted, mildly TTP more so at posterior axillary line ~5th- 7th ribs, no edema, ecchymosis or skin changes Lungs: Clear to auscultation b/l, respirations unlabored, no wheezes, crackles or rhonchi. Heart: Regular rate and rhythm at time of exam, S1 and S2 normal, no murmur, rub, or gallop Abdomen: Soft, non-tender, bowel sounds normo-active in all four quadrants, no masses, no organomegaly Extremities: Extremities normal, no cyanosis, clubbing. no edema Neurologic: A+Ox3, cranial nerves II-XII grossly intact Musculoskeletal: 5/5 throughout with normal gait Diagnostics: I have independently visualized all relevant imaging studies, including: CXR (01/13/22): 1. Persistent, unchanged left hemothorax with progressive healing of the bilateral displaced rib fractures. No acute abnormality. CT Chest (12/14/21): 1. Slight progression of of loculated hemothorax. New components are located medially and at the base. 2. A 1.6 cm posterior pleural based superior segment left lower lobe nodule is new compared to 10/12/2021 CT. Given rapid development, a nonneoplastic etiology such as extension of pleural blood products or infection/inflammation is favored. However, given the patient's risk factors a follow-up noncontrast CT in 3-6 months is recommended to assess for persistence or resolution. 3. Severe emphysema. 4. Unchanged left-sided partially and completely displaced rib fractures involving the left fourth through 12th ribs. Greatest displacement at the left lateral eighth rib. Assessment: This is a 71 y.o. male with stable, left sided hemothorax 2/2 rib fractures after GLF in November 2021. Given size, stability, co-morbidities and his prior talc pleurodesis recommend against operative intervention. Plan of Management: 1. RTC in [address] chest to eval LLL nodule noted on CT chest in 11/2021- pulmonary nodule clinic 2. Follow up with all other appt as scheduled 3. PRN with thoracic surgery 4. 30 minutes of aerobic exercise daily, at minimum. 5. Call with any questions Winifred Patel PA-C 01/25/2022 Thoracic Surgery [facility] I have seen the patient and reviewed the PA/resident's above history and I agree with the details as written. The assessment and plan were formulated in discussion with me and I agree with them as documented. I completed a history and physical exam. Assessment: This is a 71 y.o. male with stable, left sided hemothorax 2/2 rib fractures after GLF in November 2021. Given size, stability, co-morbidities and his prior talc pleurodesis recommend against operative intervention. Plan of Management: 1. RTC in [address] chest to eval LLL nodule noted on CT chest in 11/2021- pulmonary nodule clinic. I explained to the patient we will need to watch this nodule. If no change in size, we can doyearly scans. If it increases in size, we should consider PET +/- biopsy. 2. Follow up with all other appt as scheduled 3. PRN with thoracic surgery 4. 30 minutes of aerobic exercise daily, at minimum. He should increase the intensity and frequencyof his exercise. 5. Call with any questions KENDALL LUCAS MD documented in this encounter Plan of Treatment Scheduled Referrals Name Type Priority Associated Diagnoses Orde r Schedule Amb Referral to Pulmonary Nodule Clinic Outpatient Referral Routine Recurrent spontaneous pneumothorax H/O asbestos exposure Ordered: 01/25/2022 documented as of this encounter Visit Diagnoses Diagnosis Recurrent spontaneous pneumothorax Other pneumothorax H/O asbestos exposure Personal history of contact with and (suspected) exposure to asbestos documented in this encounter Care Teams Rounder And Backer Relationship Specialty Start Date End Date Linda Mccray MD [address] [place] [id number] PCP - General Family Medicine 10/20/16 documented as of this encounter
--- OUTSIDE RECORDS SUMMARY | 2024-07-17 21:47 | XMS_ITS | Encounter Summary ---
Author Organization [facility] Address [address] [place] [address] Care Team Providers Care Teletypesetter Monitor Name Role Phone Unavailable Primary Care Provider Unavailabl e Encounter Details Date Type Department Care Team (Late st Contact Info) Description 12/31/2019 Orders Only [facility] Cardiology Clinic [address] [place] [address] Sue Conner NP Heart block (Primary Dx) Social History [...] CARDIAC IMPLANT CHECK - REMOTE MONITOR Routine 12/31/2019 15:17 EDT Heart block documented in this encounter Results * CARDIAC IMPLANT CHECK - REMOTE - PACEMAKER (12/31/2019 15:17 EDT) Anatomical Region Laterality Modality Device Narrative 12/31/2019 15:18 EDT Remote pacemaker interrogation shows normal device function, generator approaching SAMEERA. No arrhythmias. See scanned documents for full details. Procedure Note Michelle Lindo APRN - 12/31/2019 Remote pacemaker interrogation shows normal device function, generatorapproaching SAMEERA. No arrhythmias. See scanned documents for full details. Sue Conner NP CV IMPLANTABLE CARDI AC DEVICE documented in this encounter Visit Diagnoses Diagnosis Heart block- Primary Conduction disorder, unspecified documented in this encounter
--- OUTSIDE RECORDS SUMMARY | 2024-07-17 21:47 | XMS_ITS | Encounter Summary ---
Author Organization [facility] Address [facility] [place] [address] Care Team Providers Care Bonding Supervisor Name Role Phone Linda Mccray MD Primary Care Provider [phone] Encounter Details Date Type Department Care Team (Late st Contact Info) Description 02/19/2022 [place] [phone] Kashmir Iglesias Jr., MD [facility] [place] [address] Social History Tobacco Use Types Packs/Day Years [...] encounter Miscellaneous Notes * Telephone Encounter - Kashmir Iglesias Jr., MD - 02/19/2022 11:43 AM EDT Pt paged the cardiology service about a prescription. He is all set. documented in this encounter Plan of Treatment Not on file documented as of this encounter Visit Diagnoses Not on filedocumented in this encounter Care Teams Bonding Supervisor Relationship Specialty Start Date End Date Linda Mccray MD [address] [place] [address] PCP - General Family Medicine 10/20/16 documented as of this encounter
--- OUTSIDE RECORDS SUMMARY | 2024-07-17 21:47 | XMS_ITS | Encounter Summary ---
Author Organization Formerly [facility] [place] [address] Care Team Providers Care Sales Exhibitor Name Role Phone Linda Mccray MD Primary Care Provider [phone] Encounter Details Date Type Department Care Team ([facility] st Contact Info) Description 08/04/2022 9:00 AM EDT [place] [address] Winifred Manning APRN [facility] [place] [address] BPH with obstruction/lower urinary tract symptoms; Erectile [...] Sign Reading Time Taken Comments Blood Pressure 150/80 08/04/2022 9:10 AM EDT Pulse 79 08/04/2022 9:10 AM EDT Temperature - - Respiratory Rate - - Oxygen Saturation - - Inhaled Oxygen Concentration - - Weight - - Height - - Body Mass Index - - documented in this encounter Progress Notes * Winifred Manning APRN - 08/04/2022 9:00 AM EDT History of Present Illness London Neri is a 72 y.o. year old male referred by Linda Mccray MD for follow up of incontinence. Patient was sent home with a Goldsmith [...] penetrative intercourse. 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 Prostate IPSS and BEVERLEY(Pt Entered): Today's answers and scores Prostate Scores and Responses 08/04/2022 Confidence, level - past 6 months Low Penetration - past 6 months A few times (less than half the time) Penetration, maintain - past 6 months A few times (less than half the time) Erection, maintain - past 6 months Difficult Sexual satisfaction - past 6 months A few times (less than half the time) Sexual Health in Men 11 (MODERATE ED) Incomplete emptying Almost always Frequency Less than half the time Intermittency More than half the time Urgency Less than half the time Weak Stream Not at all Straining Not at all Nocturia 1 time Quality of life Mostly dissatisfied Total IPSS Score 14 (MODERATE LUTS) Past Medical History: Recurrent spontaneous pneumothoraxes Congestive [...] and oriented, and appears his stated age. Cardiovascular: Good peripheral pulses Respiratory: Breathing comfortably. No audible wheezes are appreciated. Abdomen: Non-obese, soft, non-tender, non-distended. : Phallus flaccid, circumcised, no lesions. Scrotum with no swelling, erythema, or masses. Bilateral testes with no masses, tenderness, or swelling. Rectal: Sphincter tone is normal There is not any levator ani tenderness. The prostate is moderately enlarged (40-60gm) with no nodularity, firmness and asymmetry. Extremities: Appear warm and well perfused. no LE Edema Neuro: Awake and alert. Oriented to person/place/time. No gross motor defects. PVR: 91-102 UA: negative for leukocytes, nitrates, heme, and protein. Imaging: No relevant imaging Assessment: 71 male with moderate LUTS and Moderate ED Plan: ?? Continue Flomax 0.4 mg daily. Discussed increasing this to 0.8mg. He declined increasing his dose. ?? Discussed reducing intake of bladder irritants (caffeine, tea, wine); increase water intake. He does not plan to make any changes to this. Discussed that this is a quality of life issue and it is up to him to determine if he wants to make some changes to improve urinary symptoms. ?? Discussed anticholinergics or beta 3 agonist for urgency/frequency. I have concerns that this will increase his difficulty emptying and he is not interested in any new medication at this time. ?? Continue Sildenafil 100mg daily. Prescription sent and [employer] card given. With card he will be able to obtain medication for less than $10 for 30 tablets. ?? We discussed ED at length, including the etiology and natural history of the disease. We specifically talked about the management of ED. We then discussed the treatment algorithm for ED, and I explained his options. He seemed most comfortable with proceeding with PDE5 inhibitor therapy after extensive explanation of the risks and benefits. ?? I explained to take the medication 2 hours before sexual activity. I also explained to take sildenafil on an empty stomach. I advised him that he may have side effects while the medication is active, including facial flushing, nasal congestion, headache, and color vision changes. These side effects are a normal and expected part of PDE 5 inhibitor therapy and can be mitigated by taking NSAIDs if needed. I advised him to trial this medication at the 100 mg dose and then to trial it at 50 mg. If 50 mg is also an adequate dose, he will then have twice as much sildenafil. We discussed appropriate medication administration, dosing and side effects. I also advised him to seek emergency care for a rigid erection lasting longer than 4 hours. ?? I also advised him that he cannot take nitrates for chest pain if he has recently taken PDE5 inhibitors. I also advised him to separate his dose of tamsulosin 4 hours from his dose of sildenafil. ?? Discussed injectables and/or IPP for ED. He is leaving for [place] in the next couple of weeks but would like to schedule a NPW with Dr. Rhodes when he returns to discuss these options more thoroughly. documented in this encounter Plan of Treatment Not on file documented as of this encounter Visit Diagnoses Diagnosis BPH with obstruction/lower urinary tract symptoms Hypertrophy of prostate with urinary obstruction and other lower urinary tract symptoms (LUTS) Erectile dysfunction, unspecified erectile dysfunction type documented in this encounter Care Teams Sales Exhibitor Relationship Specialty Start Date End Date Linda Mccray MD [address] [place] [address] PCP - General Family Medicine 10/20/16 documented as of this encounter
--- OUTSIDE RECORDS SUMMARY | 2024-07-17 21:47 | XMS_ITS | Encounter Summary ---
Author Organization [facility] [place] [address] Care Team Providers Care Corporate Counselor Name Role Phone Linda Mccray MD Primary Care Provider [phone] Reason for Visit * Consultation (Routine) - Closed Specialty Diagnoses / Procedures Referred By Contac t Referred To Contact Pulmonology Diagnoses Chronic bullous emphysema Melanie Segal, [facility] [address] [facility] Pulmonology [address] [place] [address] Referral ID Status Reason Start Date Expiration Date V isits Requested Visits Authorized [id number] Closed Consult, Test & Treat 07/15/2022 07/15/2023 1 1 Encounter Details Date Type Department Care Team (Latest Contact Info) Description 01/23/2023 1:00 PM EDT Office [place] [address] Micki Tillman MD [facility] [place] [address] Centrilobular emphysema Social History Tobacco Use Types Packs/Day Years [...] Sign Reading Time Taken Comments Blood Pressure 122/59 01/23/2023 1:07 PM EDT Pulse 79 01/23/2023 1:07 PM EDT Temperature 36.6 ??C (97.9 ??F) 01/23/2023 1:07 PM ED T Respiratory Rate 20 01/23/2023 1:07 PM EDT Oxygen Saturation 99% 01/23/2023 1:07 PM EDT Inhaled Oxygen Concentration - - Weight 80.4 kg (177 lb 3.2 oz) 01/23/2023 1:07 P M EDT Height 185 cm (6' 0.84) 01/23/2023 1:07 PM EDT Body Mass Index 23.48 01/23/2023 1:07 PM EDT documented in this encounter Progress Notes * Micki Tillman MD - 01/23/2023 1:00 PM EDT Images from the original note were not included. [facility] Section of Pulmonary and Critical Care Medicine Outpatient Consultation Date of Encounter: 01/23/2023 Referring Provider: Melanie Segal APRN [facility] [place] [address] Reason for Evaluation: Linda Mccray MD referred Mr. London Neri to me to evaluate and manage bullous emphysema. I independently interviewed and examined the patient in the office and have reviewed available records. History of Present Illness: Mr. Neri is a 72-year-old male who presents today for an initial clinic visit with me. The patient was initially seen in the pulmonary clinic at [facility] by Dr. Davis in 2017 for progressive [...] in the multidisciplinary pulmonary nodule clinic at [facility] in Jun 2022 for lung nodule that [...] underwent an acutely successful DC cardioversion at [facility] on 02/18/2022 after which she was started on amiodarone. In February 2022, he presented to [facility] with hemoptysis, dyspnea on exertion and his [...] eventually seen in follow-up by EP at [facility] for his atrial fibrillation. On review of [...] nodule clinic. Denies having asthma asa Child. 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 Status post permanent pacemaker placement Past Surgical History: Procedure Laterality Date ??? AORTIC VALVE REPLACEMENT 1998 ??? CARDIAC VALVE REPLACEMENT 1983 Aortic Valve ??? CARDIAC VALVE REPLACEMENT 1998 Mechanical Aortic and Mitral ??? HERNIA REPAIR ??? MITRAL VALVE REPLACEMENT 1998 ??? PRO BRONCHOSCOPY, DIAGNOSTIC Left 03/06/2021 BRONCHOSCOPY, DIAGNOSTIC (WRVU 2.78) performed by Navin Khalil MD at [facility] MAIN OR ??? PRO COLONOSCOPY, REMV LESN, SNARE N/A 01/26/2017 COLONOSCOPY, POLYPECTOMY, REMOVAL LESION BY SNARE (WRVU 4.67) performed by Lena Clark MD at [facility] ENDOSCOPY ??? PRO THORACOSCOPY SURG W/PLEURODESIS Left 03/06/2021 @THORACOSCOPY, SURG; W PLEURODESIS (WRVU 10.83) performed by Navin Khalil MD at [facility] MAIN OR ??? PRO THORACOSCOPY W RESECTION-PLICATION EMPHYSEMA LUNG UNILATERAL Left 03/06/2021 @THORACOSCOPY, SURG; W/RESC-PLICATION EMPHYSEMATOUS LUNG, UNILATERAL (WRVU 27) performed by Navin Khalil MD at [facility] MAIN OR ??? PRO THORACOSCOPY W/PARTIAL PULMONARY DECORTICATION Left 03/06/2021 @THORACOSCOPY, SURG; W PART. DECORTICATION (WRVU 18.78) performed by Navin Khalil MD at [facility] MAIN OR ??? PRO THORACOSCOPY W/PARTIAL PULMONARY DECORTICATION Left 03/09/2021 @THORACOSCOPY, SURG; W PART. DECORTICATION (WRVU 18.78) performed by Navin Khalil MD at [facility] MAIN OR ??? PRO THORACOTOMY, CTRL TRAUMA BLEED Left 03/09/2021 @THORACOTOMY WEXPL,CONTROL BLDNG (WRVU 25.28) performed by Navin Khalil MD at [facility] MAIN OR Family History: Mother from cancer ( unknown type ). Father from ?? Embolism ( unclear location ). Social and Occupational History: The patient currently lives at home, lives alone. Retired now, used to play bridge in the past. Smoked 1 PPD x 20 years, quit in 1983. Drinks occasional alcohol. No illicit drug use. No h/o vaping. Has had asbestos exposure in the past. No known mold exposure. Has a cat at home. Current Medications at Start of Encounter: Current Outpatient Medications Medication Sig Dispense Refill ??? sildenafiL (VIAGRA) 100 mg Tablet Take 1 tablet by mouth as needed for Erectile Dysfunction (Donot take more than 1 dose in a 24 hour period.). 60 tablet 0 ??? tamsulosin (Flomax) 0.4 mg Capsule Take 1 capsule by mouth daily. 90 tablet 3 ??? warfarin (Coumadin) 5 mg Tablet Take 1 tablet by mouth daily. 5 tablet 0 ??? betamethasone dipropionate (DIPROLENE) 0.05 % Cream APPLY SMALL AMOUNT EXTERNALLY TO RASH TWICEDAILY FOR NO MORE THAN 2 WEEKS ??? aspirin 81 mg Tablet, Delayed Release (E.C.) TAKE ONE TABLET BY MOUTH EVERY DAY 3 No current facility-administered medications for this visit. Adverse Drug Reactions: Allergies Allergen Reactions ??? Amiodarone Analogues Other (See Comments) Interferes with warfarin Review of Systems: CONSTITUTIONAL: No appetite or weight loss. No fevers or chills. HEENT: No nasal congestion or postnasal drip. PULM: No hemoptysis or pleuritic chest pain. CVS: No angina-like symptoms. No orthopnea or leg swelling. GI: No abdominal pain, nausea or vomiting MUSCULOSKELETAL: No myalgias or arthralgias. SKIN: No new rash. NEURO: No headaches Physical Examination: BP 122/59 Pulse 79 Temp 36.6 ??C (97.9 ??F) (Temporal) Resp 20 Ht 185 cm (6' 0.84) Wt 80.4 kg (177 lb 3.2 oz) SpO2 99% BMI 23.48 kg/m?? GEN: Patient is sitting comfortably, no accessory muscle use. HEENT: Pupils are equal and reactive to light, anicteric sclerae. NECK: Supple, no elevation in JVD. OROPHARYNX: Mallampati score 1. No evidence of thrush. Moist oral mucosa. PULM: Clear breath sounds bilaterally. CVS: S1-S2 normal. No murmurs. ABDO: Soft, nontender, bowel sounds present. EXT: Warm, well-perfused lower extremities bilaterally. No lower extremity edema. No clubbing or cyanosis. NEURO: Alert, awake, oriented x3. No focal deficits. Labs: I personally reviewed relevant laboratory results which were significant for: Metabolic Parameters Lab Results Component Value Date NA 137 12/16/2021 K 4.3 12/16/2021 CL 102 12/16/2021 CO2 23 12/16/2021 ANIONGAP 12 12/16/2021 BUN 17 12/16/2021 CREATININE 0.88 12/16/2021 GLUCOSE 91 12/16/2021 CALCIUM 9.1 12/16/2021 MAGNESIUM 0.92 03/10/2021 PHOS 2.4 (L) 03/10/2021 Hematologic Parameters Lab Results Component Value Date WBC 5.8 12/15/2021 NEUTOPHILPCT 67.8 12/15/2021 IMMGRANPCT 0.20 12/15/2021 LYMPHOPCT 17.3 12/15/2021 MONOPCT 11.7 12/15/2021 BASOPCT 0.9 12/15/2021 EOSPCT 2.1 12/15/2021 HGB 12.4 (L) 12/15/2021 HCT 36.6 (L) 12/15/2021 RBC 4.12 (L) 12/15/2021 MCV 88.8 12/15/2021 MCHC 33.9 12/15/2021 RDWSD 44.3 12/15/2021 PLATELET 176 12/15/2021 Imaging: I personally reviewed imaging from High-Resolution (non-contrast) CT Scan of the Chest Results for orders placed during the hospital encounter of 07/15/22 CT Chest wo Contrast (Generic) Narrative EXAMINATION: CT CHEST WO CONTRAST (GENERIC) CLINICAL HISTORY: Pleural effusion Patient is S/P Left decort and bleb 02/2021, history of smking and asbestos exposure one year follow up, eval for changes TECHNIQUE: 3.75 mm thick axial contiguous sections were obtained through the chest via helical acquisition without intravenous contrast administration. Thin-section reconstructions as well as coronal and sagittal reformatted images were generated. COMPARISON: CT chest 12/14/2021 FINDINGS: Pulmonary parenchyma: Severe centrilobular and paraseptal emphysema with biapical fibrobullous disease. Previously noted 1.8 cm superior segment left lower lobe pleural-based nodule has resolved or been resected. Scarring and architectural distortion predominantly in upper lobe distribution. No new nodules nor masses. Airways: Central airways are patent. No endobronchial opacities. Pleura: No pleural effusion or pneumothorax. Status post pleural decortication with resolution of loculated left hemothorax. Residual small hyperdense pleural plaques and nodularity. Lymph nodes: No enlarged lymph nodes. Heart, pericardium, and great vessels: No pericardial effusion. Redemonstrated prosthetic mitral and aortic valves. Left-sided pulse generator with leads in the right atrium and right ventricle. Normal caliber thoracic aorta. Coronary artery and aortic calcifications. Other mediastinal structures: Stable small hiatal hernia. Lower neck: No significant findings. Upper abdomen: No significant findings. Body wall soft tissues: Stranding in the left subcutaneous body wall soft tissues has resolved. Skeletal structures: Chronic bilateral rib fractures. Healing left rib fractures. Impression 1. Status post decortication with resolution of loculated left hemothorax. 2. Residual small hyperdense left pleural plaques and nodularity. 3. Interval resolution or resection of posterior pleural-based superior segment left lower lobe nodule. 4. Severe emphysema. 5. Healing left rib fractures. I have personally reviewed the image(s) and the resident's interpretation and agree with the findings, Rayna Kiser MD at 07/15/2022 3:55 PM Thank you for letting us participate in the care of this patient. If you are a health care provider and have any questions regarding this report, please contact the number below. For patients who have questions please contact the health personal care service provider that requested your imaging first. Electronically signed by: Rayna Kiser MD, [facility] ([phone]), at 07/15/2022 3:55 PM Echocardiogram: 03/13 Left ventricular cavity size and wall thickness normal. EF 66%. No evidence of left ventricular thrombus. Right ventricle size is normal. Right ventricular systolic function is at lower limit of normal. Left atrium is moderately dilated. Right atrium is normal in size.Normal RA pressure. Pulmonary Function Tests: 07/17/2017 Normal FVC 5.36 L ((114%), normal FEV1 3.45 L (99%), normal FEV1/FVC ratio 64. No obstruction noted. No significant bronchodilator responsiveness seen. Decreased diffusion capacity 19.18 (56%). Moderate abnormalities in gas exchange noted. Impression and Plan of Care: Mr. Neri is a 72 year old male who presents today for an initial clinic visit for dyspnea/emphysema : ASSESSMENT/PLAN 1. Emphysema 2. History of pneumothorax ( status post left thoracoscopic partial decortication with blebectomy, talc pleurodesis on 03/06/2021 complicated by bleeding requiring RTOR for hemostasis. ) ?? I reviewed the patients PFTs which were done in 2017. He was noted to have a low normal FEV1/FVCratio with a normal FEV1. Even though his spirometry was essentially normal, he did have a moderatediffusion abnormality. His CT chest shows significant bullous emphysema which can explain the decrease in his diffusion. I do think that even with his normal spirometry, his significant emphysema andlow diffusion can explain his SOB. I have recommended repeating his PFTs today to look for any worsening of his lung function. For his symptoms, we will start him on spiriva respimat 2.5 mcg, 2 puffsdaily. I reviewed the side effects of spiriva which include but are not limited to dry mouth, urinary retention and glaucoma. The patient will call me if any of these side effects arise and stop the inhaler. RECOMMENDATIONS 1. PFTs today 2. Start Spiriva respimat 2.5 mcg, 2 puffs daily 3. RTC in 4-5 months I reviewed my impression and recommendations with the patient and answered all the questions to hissatisfaction. He understands the plan, and knows that he can contact us at any time should any new symptoms, concerns or questions arise. Micki Tillman MD Trailer Truck DriverBranch Examiner Pulmonary [place] [address] documented in this encounter Plan of Treatment Not on file documented as of this encounter Visit Diagnoses Diagnosis Centrilobular emphysema Other emphysema documented in this encounter Care Teams Corporate Counselor Relationship Specialty Start Date End Date Linda Mccray MD [address] [place] [address] PCP - General Family Medicine 10/20/16 documented as of this encounter
--- OUTSIDE RECORDS SUMMARY | 2024-07-17 21:47 | XMS_ITS | Encounter Summary ---
[place] [address] Care Team Providers Care Sas Etl Developer Name Role Phone Linda Mccray MD Primary Care Provider [phone] Encounter Details Date Type Department Care Team ([facility] st Contact Info) Description 02/21/2022 [place] [id number] Social History Tobacco Use Types Packs/Day Years Used Date Smoking Tobacco: Former Cigarettes 1 6 1983 Smokeless Tobacco: Former Quit: 1982 Alcohol [...] Procedure Name Priority Date/Time Associated Diagnosis Comments ECG SCAN Routine 02/21/2022 documented in this encounter Results * Scan Doc: ECG (02/21/2022) Historical Provider MD GARCIA MGR SCAN EX T ORDR/RSLT documented in this encounter Visit Diagnoses Not on filedocumented in this encounter Care Teams Sas Etl Developer Relationship Specialty Start Date End Date Linda Mccray MD [address] [place] [address] PCP - General Family Medicine 10/20/16 documented as of this encounter
--- OUTSIDE RECORDS SUMMARY | 2024-07-17 21:47 | XMS_ITS | Encounter Summary ---
Author Organization [facility] [place] [address] Care Team Providers Care People Manager Name Role Phone Linda Mccray MD Primary Care Provider [phone] Encounter Details Date Type Department Care Team (Late st Contact Info) Description 01/27/2022 [place] [id number] Demetrius Sy III, MD [facility] [place] [address] Social History Tobacco Use Types Packs/Day Years [...] encounter Miscellaneous Notes * Telephone Encounter - Asha Nye CCMA - 01/27/2022 12:19 PM EDT Called Patient to let him know that if he does not want to be followed by Urology he should have his PCP refill his Flomax. If he would like us to continue to fill it he should be seen by Urology. LVM requesting a call back. Patient still has refills at the pharmacy * Telephone Encounter - Charlene Botello - 01/27/2022 12:12 PM EDT Patient calling, says he missed his appointment earlier with Dr. Sy and is not looking to reschedule. However, he would like to know if we can continue refilling his prescription for flomax and tamsulosin. PHONE: [phone] documented in this encounter Plan of Treatment Not on file documented as of this encounter Visit Diagnoses Not on filedocumented in this encounter Care Teams People Manager Relationship Specialty Start Date End Date Linda Mccray MD [address] [place] [address] PCP - General Family Medicine 10/20/16 documented as of this encounter
--- OUTSIDE RECORDS SUMMARY | 2024-07-17 21:47 | XMS_ITS | Encounter Summary ---
Author Organization [facility] [place] [address] Care Team Providers Care Director Of Consumer Affairs Name Role Phone Linda Mccray MD Primary Care Provider [phone] Reason for Visit * Reason Onset Date Comments Prior Authorization 01/30/2023 Spiriva Encounter Details Date Type Department Care Team ([facility] Contact Info) Description 01/30/2023 [place] [address] Mirella Madden RN Prior Authorization (Spiriva ) Social History Tobacco Use Types Packs/Day [...] Telephone Encounter - Mirella Madden RN - 01/30/2023 3:07 PM EDT I have received a fax from [employer] for PA on Spiriva: Nguyen: [id number] I will forward this to the team for processing Mirella Madden RN Department of Pulmonary 5C, [facility] / Pager: [phone] documented in this encounter Plan of Treatment Not on file documented as of this encounter Visit Diagnoses Not on filedocumented in this encounter Care Teams Director Of Consumer Affairs Relationship Specialty Start Date End Date Linda Mccray MD [address] [place] [address] PCP - General Family Medicine 10/20/16 documented as of this encounter
--- OUTSIDE RECORDS SUMMARY | 2024-07-17 21:47 | XMS_ITS | Encounter Summary ---
Author Organization [facility] Address [address] [place] [address] Care Team Providers Care Grip Boss Name Role Phone Unavailable Primary Care Provider Unavailabl e Encounter Details Date Type Department Care Team (Late st Contact Info) Description 04/23/2020 Orders Only [facility] [address] [place] [address] Sue Conner NP Heart block (Primary Dx) [...] CARDIAC IMPLANT CHECK - REMOTE MONITOR Routine 04/27/2020 11:02 EDT Heart block documented in this encounter Results * CARDIAC IMPLANT CHECK - REMOTE - PACEMAKER (04/27/2020 11:02 EDT) Anatomical Region Laterality Modality Device Narrative 04/27/2020 11:03 EDT Remote pacemaker interrogation shows normal device function, low battery. No arrhythmias. See scanned documents for full details. Procedure Note Michelle Lindo APRN - 04/27/2020 Remote pacemaker interrogation shows normal device function, low battery.No arrhythmias. See scanned documents for full details. Sue Conner NP CV IMPLANTABLE CARDI AC DEVICE documented in this encounter Visit Diagnoses Diagnosis Heart block- Primary Conduction disorder, unspecified documented in this encounter
--- OUTSIDE RECORDS SUMMARY | 2024-07-17 21:47 | XMS_ITS | Encounter Summary ---
Author Organization [facility] [place] [address] Care Team Providers Care Hair Worker Name Role Phone Linda Mccray MD Primary Care Provider [phone] Encounter Details Date Type Department Care Team (Late st Contact Info) Description 03/05/2022 Telephone Cardiology at [address] [address] Igor Dickens MD [facility] [place] [address] Social History Tobacco Use Types Packs/Day Years [...] encounter Miscellaneous Notes * Telephone Encounter - Igor Dickens MD - 03/05/2022 10:00 AM EDT [facility] Cardiology After-Hours Patient Telephone Call Reason for call: Acute Concern Caller: Patient Outpatient Informatica: Elmer Dineroandrew Time: 03/05/2022 Patient wondering if he still needs to take his amiodarone now he is in sinus. No symptoms. I stated Elmer Minor started this for him and likely it is for maintaining sinus rhythm. His line disconnected. I tried calling back without response This note encounter has been routed to outpatient conference coordinator Igor Dickens MD [facility] Machine Plaster Mixer, PGY-4 Pager #[phone] Can P[employer]Pal message me 7AM-4PM on for non-urgent matters documented in this encounter Plan of Treatment Not on file documented as of this encounter Visit Diagnoses Not on filedocumented in this encounter Care Teams Hair Worker Relationship Specialty Start Date End Date Linda Mccray MD [address] [place] [address] PCP - General Family Medicine 10/20/16 documented as of this encounter
--- OUTSIDE RECORDS SUMMARY | 2024-07-17 21:47 | XMS_ITS | Encounter Summary ---
Author Organization [facility] [place] [address] Care Team Providers Care Physical Laboratory Assistant Name Role Phone Linda Mccray MD Primary Care Provider [phone] Reason for Visit * Reason Onset Date Comments Other 02/16/2023 Medication quest ions Encounter Details Date Type Department Care Team ([facility] Contact Info) Description 02/16/2023 Telephone Pulmonology at [facility] [place] [phone] Mirella Madden RN Other (Medication questions) Social History Tobacco Use Types Packs/Day Years Used Date Smoking Tobacco: Former Cigarettes 1 18 6 1983 Smokeless Tobacco: Never Alcohol Use [...] Telephone Encounter - Mirella Madden RN - 02/16/2023 8:55 AM EDT I have called pt in regards to medication questions. Pt has had an appointment at the beginning of January. He has not started any controller therapy to this point. He was prescribed Spiriva Respimat which was approved through insurance with no PA needed. Pt has not met his yearly deductible, this is being factored into his copayment at this time. He did call his insurance company and was told that after his deductible is met the copayment would stillbe hundreds of dollars. He tells me that he was told the Incruse Ellipta would only be about ~$80co payment. I have explained to Pt that difference between a DPI and a mist. Pt believes his lung strength is sufficient for a DPI. However, pt want to think about this information for a couple days. He states that he would like to call back on Monday with final determination. He understands that not being on any inhaler is not the desired plan of care and that he should be on controller therapy. Mirella Madden RN Department of Pulmonary 5C, [facility] [place] Pager: [phone] documented in this encounter Plan of Treatment Not on file documented as of this encounter Visit Diagnoses Not on filedocumented in this encounter Care Teams Physical Laboratory Assistant Relationship Specialty Start Date End Date Linda Mccray MD [address] [place] [address] PCP - General Family Medicine 10/20/16 documented as of this encounter
--- OUTSIDE RECORDS SUMMARY | 2024-07-17 21:47 | XMS_ITS | Encounter Summary ---
Author Organization [facility] [place] [address] Care Team Providers Care Racing Board Marker Name Role Phone Linda Mccray MD Primary Care Provider [phone] Encounter Details Date Type Department Care Team (Late st Contact Info) Description 05/21/2024 [place] [address] Anette Aguilar RN Social History Tobacco Use Types Packs/Day [...] as of this encounter Progress Notes * Anette Aguilar RN - 05/21/2024 9:21 AM EDT Prescription Renewal Request Name: London Neri : 1950 Prescription(s) Requested: Requested Prescriptions Pending Prescriptions Disp Refills tamsulosin (Flomax) 0.4 mg capsule 90 tablet 3 Sig: Take 1 capsule by mouth daily. Date of Encounter last in This Dept: 08/08/23 Next Encounter in This Dept: Visit date not found Date of Last Refill (for each medication): 08/08/23 Status of request: Pended Allergies Allergen Reactions Amiodarone Analogues Other (See Comments) Interferes with warfarin Anette Aguilar LPN 05/21/24 9:21 AM documented in this encounter Plan of Treatment Not on file documented as of this encounter Visit Diagnoses Not on filedocumented in this encounter Care Teams Racing Board Marker Relationship Specialty Start Date End Date Linda Mccray MD [address] [place] [address] PCP - General Family Medicine 10/20/16 documented as of this encounter
--- OUTSIDE RECORDS SUMMARY | 2024-07-17 21:47 | XMS_ITS | Encounter Summary ---
[place] [address] Care Team Providers Care Internal Grinder Set Up Operator Name Role Phone Linda Mccray MD Primary Care Provider [phone] Reason for Referral * Consultation (Routine) - Closed Specialty Diagnoses / Procedures Referred By Lucas leach Referred To Contact Orthopaedics Diagnoses Left rotator cuff tear arthropathy Jay Jones MD [address] [place] [address] [facility] [address] [place] [id number] Referral ID Status Reason Start Date Expiration Date V isits Requested Visits Authorized [id number] Closed Consult, Test & Treat PCP Updated and/or Approved 04/04/2023 04/03/2024 6 6 Encounter Details Date Type Department Care Team (Latest Contact Info) Description 04/04/2023 Transcribe Orders eDH Incoming Referrals [phone] Jay Jones MD [address] [place], [place] [id number] Left rotator cuff tear arthropathy Social History Tobacco Use Types Packs/Day Years [...] as of this encounter Plan of Treatment Scheduled Referrals Name Type Priority Associated Diagnoses Orde r Schedule Referral to Orthopaedics Outpatient Referral Routine Left rotator cuff tear arthropathy Ordered: 04/04/2023 documented as of this encounter Visit Diagnoses Diagnosis Left rotator cuff tear arthropathy documented in this encounter Care Teams Internal Grinder Set Up Operator Relationship Specialty Start Date End Date Linda Mccray MD [address] [place] [address] PCP - General Family Medicine 10/20/16 documented as of this encounter
--- OUTSIDE RECORDS SUMMARY | 2024-07-17 21:47 | XMS_ITS | Encounter Summary ---
[place] [address] Care Team Providers Care Production Welder Name Role Phone Linda Mccray MD Primary Care Provider [phone] Reason for Referral * Diagnostic Test (Routine) - Closed Specialty Diagnoses / Procedures Referred By Contac t Referred To Contact Radiology Diagnoses Recurrent spontaneous pneumothorax Cigarette nicotine dependence in remission H/O asbestos exposure Procedures CT Chest wo Contrast (Generic) Navin Khalil MD [facility] [place] [address] [facility] [place] [address] Referral ID Status Reason Start Date Expiration Date V isits Requested Visits Authorized [id number] Closed Specialty Service Requested 10/27/2021 04/20/2023 1 1 Reason for Visit * Diagnostic Test (Routine) - Closed Specialty Diagnoses / Procedures Referred By Contac t Referred To Contact Radiology Diagnoses Recurrent spontaneous pneumothorax Cigarette nicotine dependence in remission H/O asbestos exposure Procedures CT Chest wo Contrast (Generic) Navin Khalil MD [facility] [place] [address] [facility] [place] [address] Referral ID Status Reason Start Date Expiration Date V isits Requested Visits Authorized [id number] Closed Specialty Service Requested 10/27/2021 04/20/2023 1 1 Encounter Details Date Type Department Care Team (Latest Contact Info) Description 07/15/2022 11:07 AM EDT - 07/15/2022 11:59 PM EDT Hospital [place] [address] Navin Khalil MD [facility] [place] [address] Recurrent spontaneous pneumothorax; Cigarette nicotine dependence in remission; H/O asbestos exposure Discharge Disposition: Home Social History Tobacco Use [...] Procedure Name Priority Date/Time Associated Diagnosis Comments CT CHEST WO CONTRAST (GENERIC) Routine 07/15/2022 11:37 AM EDT Recurrent spontaneous pneumothorax Cigarette nicotine dependence in remission H/O asbestos exposure documented in this encounter Results * CT Chest wo Contrast (Generic) (07/15/2022 11:37 AM EDT) Anatomical Region Laterality Modality Chest Computed Tomogra phy 07/15/2022 11:5 6 AM EDT Impressions 07/15/2022 3:55 PM EDT 1. ??Status post decortication with resolution of loculated left hemothorax. 2. ??Residual small hyperdense left pleural plaques and nodularity. 3. ??Interval resolution or resection of posterior pleural-based superior segment left lower lobe nodule. 4. ??Severe emphysema. 5. ??Healing left rib fractures. I have personally reviewed [...] who have questions please contact the health child care center administrator that requested your imaging first. ? Narrative 07/15/2022 3:55 PM EDT EXAMINATION: CT CHEST WO CONTRAST (GENERIC) CLINICAL [...] bilateral rib fractures. Healing left rib fractures. Procedure Note Rayna Kiser MD - 07/15/2022 EXAMINATION: CT CHEST WO CONTRAST (GENERIC) CLINICAL HISTORY: Pleural effusion Patient is S/P Left decort and bleb 02/2021, history of smking andasbestos exposure one year follow up, eval for changes TECHNIQUE: 3.75 mm thick axial contiguous sections were obtained throughthe chest via helical acquisition without intravenous contrastadministration. Thin-section reconstructions as well as coronal and sagittal reformattedimages were generated. COMPARISON: CT chest 12/14/2021 FINDINGS: Pulmonary parenchyma: Severe centrilobular and paraseptal emphysema with biapical fibrobullous disease. Previously noted 1.8 cm superior segment left lower lobe pleural-basednodule has resolved or been resected. Scarring and architectural distortion predominantly in upper lobedistribution. No new nodules nor masses. Airways: Central airways are patent. No endobronchial opacities. Pleura: No pleural effusion or pneumothorax. Status post pleuraldecortication with resolution of loculated left hemothorax. Residual small hyperdensepleural plaques and nodularity. Lymph nodes: No enlarged lymph nodes. Heart, pericardium, and great vessels: No pericardial effusion.Redemonstrated prosthetic mitral and aortic valves. Left-sided pulse generator with leadsin the right atrium and right ventricle. Normal caliber thoracic aorta.Coronary artery and aortic calcifications. Other mediastinal structures: Stable small hiatal hernia. Lower neck: No significant findings. Upper abdomen: No significant findings. Body wall soft tissues: Stranding in the left subcutaneous body wallsoft tissues has resolved. Skeletal structures: Chronic bilateral rib fractures. Healing left rib fractures. IMPRESSION 1. Status post decortication with resolution of loculated lefthemothorax. 2. Residual small hyperdense left pleural plaques and nodularity. 3. Interval resolution or resection of posterior pleural-based superiorsegment left lower lobe nodule. 4. Severe emphysema. 5. Healing left rib fractures. I have personally reviewed the image(s) and the resident's interpretationand agree with the findings, Rayna Kiser MD at 07/15/2022 3:55 PM Thank you for letting us participate in the care of this patient. If youare a health care provider and have any questions regarding this report,please contact the number below. For patients who have questions please contactthe health child care center administrator that requested your imaging first. Navin Khalil MD IMG CT ORDERABLES documented in this encounter Visit Diagnoses Diagnosis Recurrent spontaneous pneumothorax Other pneumothorax Cigarette nicotine dependence in remission Tobacco use disorder H/O asbestos exposure Personal history of contact with and (suspected) exposure to asbestos documented in this encounter Care Teams Production Welder Relationship Specialty Start Date End Date Linda Mccray MD [address] [place] [address] PCP - General Family Medicine 10/20/16 documented as of this encounter
--- OUTSIDE RECORDS SUMMARY | 2024-07-17 21:47 | XMS_ITS | Encounter Summary ---
Author Organization [facility] Address [facility] [place] [address] Care Team Providers Care Air Sampling And Monitoring Name Role Phone Linda Mccray MD Primary Care Provider Encounter Details Date Type Department Care Team (Late st Contact Info) Description 01/27/2023 Telephone [place] [phone] Micki Tillman MD [facility] [place] [address] Social History Tobacco Use Types Packs/Day Years [...] encounter Miscellaneous Notes * Telephone Encounter - Micki Tillman MD - 01/27/2023 3:32 PM EDT I called the patient and reviewed his PFTs with him. His spirometry was noted to be normal though he continues to have abnormal diffusion which has worsened compared to before. I had prescribed spiriva for him but he mentions that his insurance did not cover it. I have recommended that he get in touch with his insurance company to get alternatives that will be covered. He will call our office back with those and I will prescribe the appropriate inhaler for him. We will repeat his PFTs in 1 year. documented in this encounter Plan of Treatment Not on file documented as of this encounter Visit Diagnoses Not on filedocumented in this encounter Care Teams Air Sampling And Monitoring Relationship Specialty Start Date End Date Linda Mccray MD [address] [place] [address] PCP - General Family Medicine 10/20/16 documented as of this encounter
--- OUTSIDE RECORDS SUMMARY | 2024-07-17 21:47 | XMS_ITS | Encounter Summary ---
Author Organization [facility] [address] Care Team Providers Care Drum Worker Name Role Phone Linda Mccray MD Primary Care Provider [phone] Encounter Details Date Type Department Care Team (Late st Contact Info) Description 12/26/2023 [place] [phone] Мария Cruz Social History Tobacco Use Types Packs/Day Years Used Date Smoking Tobacco: Former Cigarettes 1 18 1 966 - 1984 Smokeless Tobacco: Never Alcohol Use Standard Drinks/Week [...] on filedocumented in this encounter Care Teams Drum Worker Relationship Specialty Start Date End Date Linda Mccray MD [address] [place] [address] PCP - General Family Medicine 10/20/16 documented as of this encounter
--- OUTSIDE RECORDS SUMMARY | 2024-07-17 21:47 | XMS_ITS | Encounter Summary ---
Author Organization [facility] [place] [address] Care Team Providers Care Dairy Processing Equipment Operator Name Role Phone Linda Mccray MD Primary Care Provider [phone] Encounter Details Date Type Department Care Team (Latest Contact Info) Description 04/10/2022 - 04/10/2022 11:59 PM EDT Hospital Encounter Non-[place] [address] Kendell Houser MD [facility] [place] [address] CHB (complete heart block) Discharge Disposition: Home Social History Tobacco Use [...] tablet by mouth daily. 5 tablet 12/16/2021 AMIOdarone (PACERONE) 400 mg Tablet Take 1 tablet by mouth daily. 30 tablet 1 02/18/2022 07/15/2022 lidocaine (Lidoderm) 5% Adhesive Patch, Medicated Apply [...] Procedure Name Priority Date/Time Associated Diagnosis Comments PCM INTERROGATION 3 MONTH Routine 04/11/2022 3:06 PM EDT CHB (complete heart block) documented in this encounter Results * PCM INTERROGATION 3 MONTH (04/11/2022 3:06 PM EDT) Anatomical Region Laterality Modality Other Narrative 04/12/2022 11:41 AM EDT Cardiac Device Remote Monitoring Report Summary Medtronic Carelink Device: Pacemaker Model: SHANAE Battery: 3.01 v, estimated longevity 8 years 10 months Pacing percentage: 96% ventricular paced Events: Presenting rhythm: atrial paced/ventricular paced Elevated, stable, ventricular capture threshold Impression Normal device function Follow Up As per schedule - in-clinic and remote KENDELL HOUSER MD 04/12/22 Kendell Houser MD IMPLANTABLE CARDIAC DEVICE documented in this encounter Visit Diagnoses Diagnosis CHB (complete heart block) Atrioventricular block, complete documented in this encounter Care Teams Dairy Processing Equipment Operator Relationship Specialty Start Date End Date Linda Mccray MD [address] [place] [address] PCP - General Family Medicine 10/20/16 documented as of this encounter
--- OUTSIDE RECORDS SUMMARY | 2024-07-17 21:47 | XMS_ITS | Encounter Summary ---
Author Organization [facility] [place] [address] Care Team Providers Care Pool Table Operator Name Role Phone Linda Mccray MD Primary Care Provider [phone] Encounter Details Date Type Department Care Team (Late st Contact Info) Description 07/15/2022 Telephone [place] [phone] Мария Cruz Social History Tobacco Use Types [...] on filedocumented in this encounter Care Teams Pool Table Operator Relationship Specialty Start Date End Date Linda Mccray MD [address] [place] [address] PCP - General Family Medicine 10/20/16 documented as of this encounter
--- OUTSIDE RECORDS SUMMARY | 2024-07-17 21:47 | XMS_ITS | Encounter Summary ---
Author [facility] [place] [address] Care Team Providers Care Wood Model Maker Name Role Phone Linda Mccray MD Primary Care Provider [phone] Encounter Details Date Type Department Care Team (Latest Contact Info) Description 01/13/2022 Travel Social History Tobacco Use Types Packs/Day Years Used Date Smoking Tobacco: Former Cigarettes 1 6 - 1983 Smokeless Tobacco: Former [...] on filedocumented in this encounter Care Teams Wood Model Maker Relationship Specialty Start Date End Date Linda Mccray MD [address] [place] [address] PCP - General Family Medicine 10/20/16 documented as of this encounter
--- OUTSIDE RECORDS SUMMARY | 2024-07-17 21:47 | XMS_ITS | Encounter Summary ---
Author Organization [facility] [place] [address] Care Team Providers Care Municipal Maintenance Worker Name Role Phone Linda Mccray MD Primary Care Provider [phone] Reason for Visit * Reason Onset Date Comments Medication Refill 01/24/2023 Encounter Details Date Type Department Care Team (Late st Contact Info) Description 01/24/2023 [place] [address] Micki Tillman MD [facility] [place] [address] Centrilobular emphysema Social History Tobacco Use Types [...] emphysema documented in this encounter Care Teams Municipal Maintenance Worker Relationship Specialty Start Date End Date Linda Mccray MD [address] [place] [address] PCP - General Family Medicine 10/20/16 documented as of this encounter
--- OUTSIDE RECORDS SUMMARY | 2024-07-17 21:47 | XMS_ITS | Encounter Summary ---
[place] [address] Care Team Providers Care Production Operations Inspector Name Role Phone Linda Mccray MD Primary Care Provider [phone] Reason for Visit * Reason Onset Date Comments Other 03/04/2022 Encounter Details Date Type Department Care Team ([facility] Contact Info) Description 03/04/2022 Telephone Cardiology at [address] [phone] Nancy Tracy Other Social History Tobacco Use Types Packs/Day Years Used Date Smoking Tobacco: Former Cigarettes 1 18 6 - 1983 Smokeless Tobacco: Former Quit: [...] encounter Miscellaneous Notes * Telephone Encounter - Nancy Tracy, INSPECTOR FINISHING - 03/04/2022 2:23 PM EDT Patient called the [facility] asking to talk to WASHINGTON Salas. I told him Elmer wasn't in today, patient said that Elmer had started him on amiodarone due to having AFIB. Patient had a cardioversion and is no longer in AFIB. Patient is wondering if he needs to continue the amiodarone. I told him I would have one of our PA's call him. WASHINGTON Hernández who was covering the [facility] saidit would be best for the patient to discuss this with Elmer Minor who will be out of the office until aprox 03/14/22. I tried calling the patient a few times to tell him, however I was unable to reach him. We did receive the remote download I asked him to send and I will send it to Elmer Sanchez with a note asking him to call the patient once he returns. documented in this encounter Plan of Treatment Not on file documented as of this encounter Visit Diagnoses Not on filedocumented in this encounter Care Teams Production Operations Inspector Relationship Specialty Start Date End Date Linda Mccray MD [address] [place] [address] PCP - General Family Medicine 10/20/16 documented as of this encounter
--- OUTSIDE RECORDS SUMMARY | 2024-07-17 21:47 | XMS_ITS | Encounter Summary ---
Author Organization [facility] [place] [address] Care Team Providers Care Summer Intern Name Role Phone Linda Mccray MD Primary Care Provider [phone] Encounter Details Date Type Department Care Team (Late st Contact Info) Description 02/20/2023 Refill Urology at [facility] [place] [address] Winifred Manning APRN [facility] [place] [address] Social History Tobacco Use Types Packs/Day Years [...] encounter Miscellaneous Notes * Telephone Encounter - Christal Turner RN - 02/20/2023 3:43 PM EDT Patient of Winifred Manning last seen July 2022 requesting refill of Sildenafil. Pended for review and signature * Telephone Encounter - Christal Turner RN - 02/20/2023 3:43 PM EDT Copied from [facility] #[id number]. Topic: Specialty Dept CRMs - Generic Call >> February 20, 2023 12:14 PM Josselin Isbell wrote: Specialist: Winifred Manning Relationship (if other than patient-full name): self Reason for Call: Patient is calling for a refill for the sildenafil to go to the [facility] [place] - [address] [place] [address]. Please call with any questions at [phone] or [phone]. documented in this encounter Plan of Treatment Not on file documented as of this encounter Visit Diagnoses Not on filedocumented in this encounter Care Teams Summer Intern Relationship Specialty Start Date End Date Linda Mccray MD [address] [place] [address] PCP - General Family Medicine 10/20/16 documented as of this encounter
--- OUTSIDE RECORDS SUMMARY | 2024-07-17 21:47 | XMS_ITS | Encounter Summary ---
Author Organization [facility] Address [address] [place] [address] Care Team Providers Care Vessel Crew Member Name Role Phone Unavailable Primary Care Provider Unavailabl e Reason for Visit * Reason Onset Date Comments Pacemaker/Device Check 10/21/2019 Encounter Details Date Type Department Care Team (Late st Contact Info) Description 10/21/2019 Orders Only [facility] [address] [place] [address] Sue Conner, LYNN Heart block (Primary Dx) Social History Tobacco [...] CARDIAC IMPLANT CHECK - REMOTE MONITOR Routine 10/22/2019 9:38 EST Heart block documented in this encounter Results * CARDIAC IMPLANT CHECK - REMOTE - PACEMAKER (10/22/2019 9:38 EST) Anatomical Region Laterality Modality Device Narrative 10/22/2019 9:39 EST Pt's. device transmission was reviewed. See scanned documents for interrogation details. Procedure Note Sue Conner, TONGUE AND QUARTER STITCHER - 10/22/2019 Pt's. device transmission was reviewed. See scanned documents forinterrogation details. Sue Conner NP CV IMPLANTABLE CARDI AC DEVICE documented in this encounter Visit Diagnoses Diagnosis Heart block- Primary Conduction disorder, unspecified documented in this encounter
--- OUTSIDE RECORDS SUMMARY | 2024-07-17 21:48 | XMS_ITS | Encounter Summary ---
Author Organization [facility] Address [facility] [place] [address] Care Team Providers Care Range Conservationist Name Role Phone Linda Mccray MD Primary Care Provider [phone] Encounter Details Date Type Department Care Team (Latest Contact Info) Description 12/29/2021 9:32 AM EST - 12/29/2021 11:59 PM EST Hospital Encounter XRay at [address] [place] [address] Albina Quach, FIRE ASSISTANT [facility] [place] [address] Closed fracture of multiple ribs, unspecified laterality, initial encounter Discharge Disposition: Home Social History Tobacco [...] Comments XR CHEST PA AND LATERAL Routine 12/29/2021 9:44 AM EST Closed fracture of multiple ribs, unspecified laterality, initial encounter documented in this encounter Results * XR Chest PA & Lateral (Generic) (12/29/2021 9:44 AM EST) Anatomical Region Laterality Modality Chest N/A Digital Radiogra phy Impressions 12/29/2021 10:15 AM EST Persistent loculated left hemothorax secondary to the mildly displaced lateral rib fractures. No pneumothorax or acute cardiopulmonary abnormality. Thank you for letting us participate in the care of this patient. ??If you are a health care provider and have any questions regarding this report, please contact the number below. ??For patients who have questions please contact the health healthcare consultant that requested your imaging first. ? Electronically signed by: Marci Martínez MD, [facility] ([phone]), at 12/29/2021 10:15 AM Narrative 12/29/2021 10:15 AM EST EXAMINATION: XR CHEST PA AND LATERAL (GENERIC) CLINICAL HISTORY: s/p mech fall, now with rib fx and hemothorax, ? interval changes TECHNIQUE: PA and lateral views of the chest COMPARISON: Chest radiographs December 11 and December 13, 2021; CT chest December 14, 2021 FINDINGS: Left upper chest pulse generator has intact cardiac leads. Mitral and aortic valve prostheses are intact without change in position. Sternotomy wires are intact. Localized lateral left subpleural hematoma is unchanged. No air-fluid level. A small left hemothorax persists. No pneumothorax. Right greater than left upper lobe septal thickening consistent with COPD is unchanged. Cardiomediastinal contours and pulmonary vasculature are normal. Bones are diffusely demineralized. The acute, multiple left lateral rib fractures are unchanged. Multiple healed right lateral rib fractures are unchanged. No new fracture. Thoracic kyphosis is mildly exaggerated without vertebral compression fracture. Procedure Note Marci Martínez MD - 12/29/2021 EXAMINATION: XR CHEST PA AND LATERAL (GENERIC) CLINICAL HISTORY: s/p mech fall, now with rib fx and hemothorax, ?interval changes TECHNIQUE: PA and lateral views of the chest COMPARISON: Chest radiographs December 11 and December 13, 2021; CT chest November FINDINGS: Left upper chest pulse generator has intact cardiac leads. Mitral andaortic valve prostheses are intact without change in position. Sternotomy wiresare intact. Localized lateral left subpleural hematoma is unchanged. No air-fluidlevel. A small left hemothorax persists. No pneumothorax. Right greater than left upper lobe septal thickening consistent with COPDis unchanged. Cardiomediastinal contours and pulmonary vasculature arenormal. Bones are diffusely demineralized. The acute, multiple left lateral rib fractures are unchanged. Multiple healed right lateral rib fractures are unchanged. No new fracture. Thoracic kyphosis is mildly exaggeratedwithout vertebral compression fracture. IMPRESSION Persistent loculated left hemothorax secondary to the mildly displacedlateral rib fractures. No pneumothorax or acute cardiopulmonary abnormality. Thank you for letting us participate in the care of this patient. If youare a health care provider and have any questions regarding this report,please contact the number below. For patients who have questions please contactthe health healthcare consultant that requested your imaging first. Albina Quach FIRE ASSISTANT IMG DX ORDERABLES documented in this encounter Visit Diagnoses Diagnosis Closed fracture of multiple ribs, unspecified laterality, initial encounter documented in this encounter Care Teams Range Conservationist Relationship Specialty Start Date End Date Linda Mccray MD [address] [place] [address] PCP - General Family Medicine 10/20/16 documented as of this encounter
--- OUTSIDE RECORDS SUMMARY | 2024-07-17 21:48 | XMS_ITS | Encounter Summary ---
Author Organization [facility] [place] [address] Care Team Providers Care Director Of Market Intelligence Name Role Phone Linda Mccray MD Primary Care Provider [phone] Encounter Details Date Type Department Care Team (Late st Contact Info) Description 12/11/2021 9:00 PM EST Ancillary Procedure Radiology Library at [facility] [place] [phone] Linda Mccray MD [address] [place] [id number] Social History Tobacco Use Types Packs/Day Years [...] Associated Diagnosis Comments FILM LIBRARY STORAGE ONLY CT CHEST Routine 12/11/2021 8:53 PM EST documented in this encounter Results * Film Library- Storage Only CT Chest (12/11/2021 8:53 PM EST) Narrative [facility] - 12/11/2021 8:53 PM EST This exam is auto-finalizing. It's purpose is for storage only. Linda Mccray MD [facility] FILM LIBRARY ORD ERABLES [place], [place] documented in this encounter Visit Diagnoses Not on filedocumented in this encounter Care Teams Director Of Market Intelligence Relationship Specialty Start Date End Date Linda Mccray MD [address] [place] [address] PCP - General Family Medicine 10/20/16 documented as of this encounter
--- OUTSIDE RECORDS SUMMARY | 2024-07-17 21:48 | XMS_ITS | Encounter Summary ---
Author Organization [facility] [place] [address] Care Team Providers Care Director Of Hemophilia Name Role Phone Linda Mccray MD Primary Care Provider [phone] Reason for Visit * Auth/Cert Specialty Diagnoses / Procedures Referred By Contac t Referred To Contact Diagnoses Rib fractures trauma / slip & fall on ice Procedures n/a Referral ID Status Reason Start Date Expiration Date Visits Re quested Visits Authorized [id number] 1 1 Encounter Details Date Type Department Care Team (Late st Contact Info) Description 12/13/2021 12:30 PM EST Office Visit Cardiology at [address] [phone] Katerina Reina RN AV block, complete Social History Tobacco Use Types Packs/Day Years [...] as of this encounter Progress Notes * Katerina Reina RN - 12/13/2021 12:30 PM EST Images from the original note were not included. Clinical Electrophysiology Device Service Note [place] Neri is a 71 y.o. male who presents today for a post op pacemaker programming evaluation.He had a generator change done due to battery at [facility] by Dr Tarango 07/31/20. He takes Coumadin and ASA 81 mg.He has both mechanical aortic valve and also mechanical mitral prosthetic valve. He has been in persistent AF since February. He is currently admitted after falling and fracturing some ribs. He is interested on who is following him in cardiology and further treatment for AF. PCP:Linda Mccray MD Final Parameters at implant: Leads implanted 2007 -per patient Ventricular electrode: Medtronic 5076-52cm Serial# [id number] Atrial electrode: Medtronic 5076-52cm Serial# [id number] Pulse generator: ElasticDot [id number] Maral XT DR COLUNGA Serial# [id number] NEW Settings: DDDR 60/120/120 PAV 180 ms EULA 150 ms Underlying rhythm: Afib with high grade AV block V-escape 36 bpm Presenting: /A/C TECHNICIAN Atrial Lead: P wave: 0.8 mV fib wave Impedance: 418 ohms Threshold: 0.75 V @ 0.4 ms Ventricular Lead: R wave: 5.1 mV Impedance: 646 ohms Threshold: 1.25 V @ 0.4 ms Since February Heart rate histograms: Left shifted Pacing percentages: AP<0.1 %; A/C TECHNICIAN 99.6% Mode switch episodes: 99.0% - VHR: none Battery voltage: 3.21 V (MEDICAL BILLING INSTRUCTOR:2.63 V) est 11.1 years remaining Wound assessment: Left pectoral incision well healed and intact Reprogramming: iterative changes to assess device function. LRL increased from 60-70 bpm to help with dizziness while in AF Plan: Remote in 3 mos. RTC in 1 year- Provider: Katerina Reina, DAVIN Attending: Dr Casillas documented in this encounter Plan of Treatment Not on file documented as of this encounter Visit Diagnoses Diagnosis AV block, complete Atrioventricular block, complete documented in this encounter Care Teams Director Of Hemophilia Relationship Specialty Start Date End Date Linda Mccray MD [address] [place] [address] PCP - General Family Medicine 10/20/16 documented as of this encounter
--- OUTSIDE RECORDS SUMMARY | 2024-07-17 21:48 | XMS_ITS | Encounter Summary ---
Author Organization [facility] Address [facility] [place] [address] Care Team Providers Care Health Plan Specialist Name Role Phone Linda Mccray MD Primary Care Provider [phone] Encounter Details Date Type Department Care Team (Latest Contact Info) Description 09/20/2021 9:25 AM EST - 09/20/2021 11:59 PM EST Hospital Encounter Non-Invasive [place] [address] Jordana Tarango MD [facility] [address] CHB (complete heart block) Discharge Disposition: Home Social History Tobacco Use Types Packs/Day Years Used Date Smoking Tobacco: Former Cigarettes 1 35 Smokeless Tobacco: Former Quit: 1983 Alcohol Use Standard Drinks/Week Comments Yes 5 [...] Sig Dispensed Refills Start Date End Date tamsulosin (Flomax) 0.4 mg Capsule Take 1 capsule by mouth daily. 90 tablet 5 08/24/2021 08/04/2022 betamethasone dipropionate (DIPROLENE) 0.05 % Cream APPLY SMALL AMOUNT EXTERNALLY TO RASH TWICE DAILY FOR NO MORE THAN 2 WEEKS 01/15/2021 08/08/2023 aspirin 81 mg Tablet, Delayed Release (E.C.) TAKE ONE TABLET BY MOUTH EVERY DAY 3 10/13/2016 08/08/2023 warfarin (COUMADIN) 10 mg tablet 09/11/2007 12/16/2021 documented as of this encounter Plan of Treatment Not on file documented as of this encounter Procedures Procedure Name Priority Date/Time Associated Diagnosis Comments PCM INTERROGATION 3 MONTH Routine 09/20/2021 9:26 AM EST CHB (complete heart block) documented in this encounter Results * PCM INTERROGATION 3 MONTH (09/20/2021 9:26 AM EST) Anatomical Region Laterality Modality Other Narrative 10/01/2021 2:23 PM EST Outpatient remote interrogation report: See full report as a linked pdf document Date of transmission: 09/20/2021 Device automobile assembler: SAMY Device type: DC PM Presenting rhythm: AFVP AP 0% SEWING TECHNIQUES DEMONSTRATOR 100% Battery: 3.03V, 11.25 years Episodes: no tachy persistent AFsince March 2021 Stable lead trends. Activity [place] Jordana Tarango MD 10/01/2021 2:22 PM Jordana Tarango MD IMPLANTABLE CARDIAC DEVICE documented in this encounter Visit Diagnoses Diagnosis CHB (complete heart block) Atrioventricular block, complete documented in this encounter Care Teams Health Plan Specialist Relationship Specialty Start Date End Date Linda Mccray MD [address] [place] [address] PCP - General Family Medicine 10/20/16 documented as of this encounter
--- OUTSIDE RECORDS SUMMARY | 2024-07-17 21:48 | XMS_ITS | Encounter Summary ---
Author [facility] [place] [address] Care Team Providers Care Pencil Maker Name Role Phone Linda Mccray MD Primary Care Provider [phone] Reason for Referral * Consultation (Routine) - Closed Specialty Diagnoses / Procedures Referred By Contac t Referred To Contact Thoracic Surgery Diagnoses Hemothorax on left - Hemothorax on left Annemarie Gomez APRN [facility] [place] [address] [facility] [address] [place] [address] Referral ID Status Reason Start Date Expiration Date V isits Requested Visits Authorized [id number] Closed Consult, Test & Treat 01/07/2022 01/07/2023 1 1 Encounter Details Date Type Department Care Team (Late st Contact Info) Description 01/07/2022 Orders [place] [address] Annemarie Gomez APRN [facility] [address] [place] [address] Hemothorax on left Social History Tobacco Use Types Packs/Day Years Used Date Smoking Tobacco: Former Cigarettes 966 - 1983 Smokeless Tobacco: Former Quit: [...] Associated Diagnoses Orde r Schedule Referral to Thoracic Surgery Outpatient Referral Routine Hemothorax on left Ordered: 01/07/2022 documented as of this encounter Visit Diagnoses Diagnosis Hemothorax on left Other specified forms of effusion, except tuberculous documented in this encounter Care Teams Pencil Maker Relationship Specialty Start Date End Date Linda Mccray MD [address] [place] [address] PCP - General Family Medicine 10/20/16 documented as of this encounter
--- OUTSIDE RECORDS SUMMARY | 2024-07-17 21:48 | XMS_ITS | Encounter Summary ---
Author Organization [facility] [place] [address] Care Team Providers Care Disposal Plant Operator Name Role Phone Linda Mccray MD Primary Care Provider [phone] Encounter Details Date Type Department Care Team ([facility] st Contact Info) Description 01/06/2022 Notes Only Cardiology at [address] [address] Myrna Ludwig APRN [facility] [place] [address] Social History Tobacco Use Types Packs/Day Years [...] as of this encounter Progress Notes * Myrna Ludwig APRN - 01/06/2022 1:10 PM EDT Opened in error documented in this encounter Plan of Treatment Not on file documented as of this encounter Visit Diagnoses Not on filedocumented in this encounter Care Teams Disposal Plant Operator Relationship Specialty Start Date End Date Linda Mccray MD [address] [place] [address] PCP - General Family Medicine 10/20/16 documented as of this encounter
--- OUTSIDE RECORDS SUMMARY | 2024-07-17 21:48 | XMS_ITS | Encounter Summary ---
Author Organization Formerly [facility] Address [facility] [place] [address] Care Team Providers Care Lab Aid Name Role Phone Linda Vang MD Primary Care Provider Reason for Visit * Reason Comments Chest Pain Hospital Transfer Trauma Alert * Auth/Cert Specialty Diagnoses / Procedures Referred By Contac t Referred To Contact Diagnoses Rib fractures trauma / slip & fall on ice Procedures n/a Referral ID Status Reason Start Date Expiration Date Visits Re quested Visits Authorized [id number] 1 1 Encounter Details Date Type Department Care Team (Latest Contact Info) Description 12/12/2021 1:12 AM EST - 12/16/2021 1:31 PM [facility] Hospital Encounter [address] [place] [address] Rayna High MD [facility] [place] [address] Carlos Manuel Dodson MD [facility] [place] [address] Harjinder Light MD [address] [place] [address] [place] [address] Closed fracture of multiple ribs, unspecified laterality, initial encounter; Lung nodule Discharge Disposition: Home with VNA Social History Tobacco Use Types Packs/Day Years [...] Sign Reading Time Taken Comments Blood Pressure 112/59 12/16/2021 8:08 AM EST Pulse 72 12/15/2021 6:18 PM EST 80's with walk, end session 74 Temperature 36.7 ??C (98.1 ??F) 12/16/2021 8 :08 AM EST Respiratory Rate 16 12/16/2021 8:08 AM EST Oxygen Saturation 95% 12/16/2021 8:0 8 AM EST Inhaled Oxygen Concentration - - Weight 86.2 kg (190 lb) 12/12/2021 10:4 5 AM EST Height 185.4 cm (6' 1) 12/12/2021 10:4 5 AM EST Body Mass Index 25.07 12/12/2021 10:45 AM EST documented in this encounter Discharge Summaries * Albina Quach, GOLD LAYER - 12/16/2021 10:06 AM EST Trauma Discharge Summary Patient Name: London Neri Patient Age: 71 y.o. : 1950 Attending Physician: Harjinder Light MD Date of Admission: 12/12/2021 Date of Discharge: 12/16/2021 ID: [id number] y.o.yo pt admitted on 12/12/2021 with the following injuries: Injury Intervention Follow-up PULM: 1. Left rib fractures 5-12 ?? 2. Left hemothorax? Pulmonary Toilet IS 10x/hr Aerobika Pain control?? CXR 12/13 stable? THORACIC SURGERY: - No indication for acute surgical intervention - Also a??1.6 cm posterior pleural based superior segment left lower lobe nodule is new compared to 10/12/2021 CT.??We recommend follow up in 3 months. ?? TRAUMA Follow up in 10-14 days with repeat CXR (PA and Lateral views)? THORACIC SURGERY: - follow up in 3 months. ? Scheduled Appointments: The following appointments have been scheduled on your behalf: Future Appointments Date Time Provider Department Center 12/29/2021 9:45 AM [facility] DB XRAY ROOM 2 MH Xray [facility] Rad 12/29/2021 11:00 AM Annemarie Gomez APRN [facility] SURG [facility] Other In-hospital Issues: - Acute Pain - Afib - BPH - S/p AVR/MVR - Therapeutic anticoagulation management Secondary Diagnosis: Past Medical History: Diagnosis Date ??? C. difficile colitis ??? COPD (chronic obstructive pulmonary disease) ??? Emphysema of lung ??? Hemorrhoid ??? Pacemaker - dual lead Medtronic 07/29/2020 ??? Pneumothorax on left Allergies: No Known Allergies Operations/Procedures: none HPI: London Neri??is a 71 y.o.??male??presents to [facility] s/p slip and fall on ice. ??Description of events leading up to injury includes: patient was outside and slipped on some ice resulting in a mechanical fall. Landed on left side. No LOC or head strike. Currently complaining of left rib pain, otherwise comfortable. Transferred from OSH where he received vit K for coumadin with INR 3.6.? Primary survey??revealed: intact??airway, equal??breath sounds/respirations, present 2+??peripheralpulses with stable??vital signs and no signs??of bleeding, GCS 15??(6 - Follows simple motor commands,??5 - Alert and oriented,??4 - Opens eyes on own), and??complete??exposure. ?? Secondary survey?? Left 5-12 rib fractures Injuries identified on Tertiary Survey: 1. Left hemothorax Hospital Course: London Neri is a 71 y.o.??male??with PMH of COPD, emphysema,??AFib, Atrial and Mitral valve replacement with mechanical valves (1998) on warfarin,??pacemaker??(2007), hx of recurrent spontaneous PTX (s/p L VATs, partial decortication, blebectomy, talc pleurodesis ),??chronic shoulder pain,??heres/p slip and fall on ice, - LOC, no head strike, admitted on 12/12. Transferred from OSH where he received vitamin K for coumadin for INR 3.6 Traumatic injuries included in chart.? On admission home coumadin was held due to finding of hemothorax on second reads on CT, repeat CXR 12/13 stable, morning hgb stable, heparin drip and home dose of coumadin 10mg started 12/13 as recommended by Cardiology consulted for assistance day prior. Will continue to monitor daily INR, coumadin and heparin bridge until INR at goal (2.5-3.5), will stop heparin once therapeutic. 12/15 in discussion with Cardiology/Gerontology and the rest of the team, it was decided to transition pt from heparin drip to lovenox injections which will help with disposition to home with PCP and VNA help to manage coumadin until at goal. PCP verified that they will help manage out patient transition to lovenox.VNA requested for INR check every 2-3 days (with first check on day 3 or Monday). Triage nurse will call pt on Monday morning to check in. Pt continues to be hemodynamically normal with stable hgb.Lovenox teaching done by nursing. ?? Pt reported having dizziness intermittently the last few weeks for which he already had an EP appointment o/pt on 12/13; EP team paged and notified; pt was seen, pacemaker adjusted. ?? Radiology contacted regarding CT chest 2nd read and confirmed there is no pneumothorax 12/13. ?? 12/14 Thoracic Surgery team consulted given pt history of recurrent spontaneous PTX s/p left VATs, partial decortication, Blebectomy, talc pleurodesis by Dr. Khalil for assistance with management of displaced rib fracture and need for plating. They recommended repeat non contract chest CT at this time as pt is on anticoagulation. Thoracic surgery recommend no surgical intervention at this time with follow-up in 3 months. ?? On the day of discharge he was able to pull 2L on IS with no pain. He was oxygenating well on room air. London Neri's pain was adequately controlled, He was maintaining adequate oxygen saturation on room air, and was hemodynamically stable. He was tolerating a diet without abdominal complaints and voiding adequately. WBC and Hgb were stable. He was Ambulatory with assistive devices. London Neriwas evaluated by the Surgery Team and deemed medically stable for discharge on 12/16/21. PLAN: Acute pain -2 lidoderm patches - tylenol??650mg q8hr SCHED ?? Bowel Regimen - Over the counter cathartics as needed for constipation ?? Admission UA:??negative ?? Tox Screen:??presumed + oxycodone and fentanyl ?? Resolved in hospital issues:?? None? Chronic health conditions:? AFib, pacemaker, AVR, MVR: home coumadin started 12/13 with heparin bridge until INR at goal (2.5-3.5). Heparin drip stopped 12/15 transitioned to lovenox bridge to coumadin. - Discharged on Coumadin 5mg and lovenox, VNA to recheck INR within 48 hours and to call PCP for dosing. ?? Pt reported hx frequent nose bleeds on coumadin: continue to monitor ?? BPH: continue home flomax ?? Diet:??Regular diet?? Activity status:??Activity As Tolerated Spine status:??No spinal injuries noted Pulmonary toilet: Encourage frequent mobilization, IS use, titrate O2 >90 DVT PPX: restarted home AC regimen 12/13 GI PPX:??Not indicated, tolerating diet Lines/Tubes/Drains: None at discharge Consults (Please see cardiology consultant notes): PT/OT, cardiology, EP? Incidental Findings:?? - A 1.6 cm posterior pleural based superior segment left lower lobe nodule is new compared to 10/12/2021 CT. Given rapid development, a nonneoplastic etiology such as extension of pleural blood products or infection/inflammation is favored. However, given the patient's risk factors a follow-up noncontrast CT in 3-6 months is recommended to assess for persistence or resolution.?? [x]?Incidental Findings Form Completed (Albina Quach, GOLD LAYER 12/16/2021) Incidental Findings: Superior segment LEFT lower lobe 2.0 cm nodule. New compared to CT from 10/12/2021; recommend close interval follow-up for assessment of stability. [x]? Incidental Findings Form Completed, Tea, 12/12/2021 Pending Lab Data at Discharge: None Pertinent Lab Data: Recent Labs 12/16/21 0622 12/15/21 0552 12/14/21 0437 12/13/21 1603 WBC -- 5.8 6.5 8.4 HGB -- 12.4* 12.4* 13.2* HCT -- 36.6* 36.8* 38.8* PLATELET -- 176 163 176 PT 27.1* 19.6* 14.1* -- INR 2.4 1.7 1.2 -- PTT 44* >160* 100* -- Recent Labs 12/16/21 0622 12/14/21 0616 NA 137 138 K 4.3 4.5 CL 102 104 CO2 23 22 BUN 17 23* CREATININE 0.88 0.96 GLUCOSE 91 92 CALCIUM 9.1 8.9 Microbiology Data: 12/14, 12/12 COVID: Not detected Discharge Physical Examination: Vital Signs: Last value Range last 24hrs Temperature Temp: 36.7 ??C (98.1 ??F) Temp: [36.1 ??C (97 ??F)-37.2 ??C (99 ??F)] Heart Rate Heart Rate: 72 (80's with walk, end session 74) Heart Rate: [72] Blood Pressure BP: 112/59 BP: (112-125)/(56-63) Respiratory Rate Resp: 16 Resp: [16] SpO2 SpO2: 95 % SpO2: [93 %-95 %] Physical Exam: GENERAL: Awake, alert, NAD, sitting in chair SKIN: WWP HEENT: PERRLA NECK: ROM full and painless, trachea midline CHEST/PULMONARY: LS diminished on left, IS to 2L, oxygenating well on RA CARDIAC: RRR GASTROINTESTINAL: Soft, non-distended, non-tender EXTREMITIES: HILTON 5/5 2+ pulses, no edema NEURO: AAOx4, no focal deficit Current Medications: The following medications have been prescribed for you. If you notice any adverse reactions to yourmedications, please contact your primary care physician immediately or go to the nearest Emergency Department. Your Medications New Medications Dose Details acetaminophen 325 mg Tab Commonly known as: Tylenol Take 2 tablets by mouth every 8 hours. 650 mg Quantity: 30 tablet Refills: 1 enoxaparin 120 mg/0.8 mL Syrg Commonly known as: Lovenox Inject 0.8 mLs subcutaneously nightly for 30 days. 120 mg Quantity: 24 mL Refills: 0 lidocaine 5% Ptmd Commonly known as: Lidoderm Apply 1 patch onto the skin daily. (leave on for 12 hours and remove for 12 hours) Quantity: 30 patch Refills: 0 Continued medications with new dosing Dose Details warfarin 5 mg Tab Commonly known as: Coumadin Take 1 tablet by mouth daily. What changed: ?? medication strength ?? See the new instructions. 5 mg Quantity: 5 tablet Refills: 0 Continued medications, unchanged Dose Details aspirin EC 81 mg Tbec TAKE ONE TABLET BY MOUTH EVERY DAY Refills: 3 betamethasone dipropionate 0.05 % Crea Commonly known as: Diprolene APPLY SMALL AMOUNT EXTERNALLY TO RASH TWICE DAILY FOR NO MORE THAN 2 WEEKS Refills: 0 tamsulosin 0.4 mg Cap Commonly known as: Flomax Take 1 capsule by mouth daily. 0.4 mg Quantity: 90 tablet Refills: 5 Disposition: Discharge to home with , VNA Scheduled Appointments: The following appointments have been scheduled on your behalf: Future Appointments Date Time Provider Department Center 12/29/2021 9:45 AM [facility] DB XRAY ROOM 2 Xray [facility] Rad 12/29/2021 11:00 AM Annemarie Gomez APRN [facility] SURG [facility] Outpatient Services/Studies: XR Chest PA & Lateral (Generic) Standing Status: Future Standing Exp. Date: 06/30/22 Question Response Notes Where will study be performed? [facility] Radiology [120] Reason for exam and clinical history: s/p mech fall, now with rib fx and hemothorax, ? interval changes CT Chest wo Contrast (Generic) Standing Status: Future Standing Exp. Date: 09/13/22 Question Response Notes Where will study be performed? [facility] Radiology [120] Referral to Home Health - at DISCHARGE Order Comments: DOCUMENTATION FOR VNA SERVICES (INCLUDING THOSE PATIENTS WITH MEDICARE COVERAGE REQUIRING HOME VNA SERVICES AND/OR HOSPICE SERVICES) PATIENT'S LOCATION: London Neri [address] [place] [id number] (home) Cell: Telephone Information: In discussion with the attending physician, it is certified that this patient is under their care and that they, or a Nurse Practitioner,Clinical Nurse specialist or Physician Security Compliance Engineer who is working directly with them, had a face to face encounter that meets the physician face to face encounter requirements with this patient on 12/16/21 (MD please enter DC date here) The encounter with the patient was in whole, or in part, for the following medical condition, whichis the primary reason for home health care services: fall, rib fx In discussion with the provider, it is certified that, based on their findings, the following services are medically necessary for home health services. To provide the following care/treatments with the clinical findings supporting the need for services as follows: HOME CARE ORDERS: RN ORDERS:Assess wound or incision, vital signs, cardiopulmonary status, nutrition, hydration, elimination, meds effectiveness and management; reinforce education re health issues. Check INR, PCP to manage anticoagulation. PT ORDERS: Continue rehab for endurance, gait stability and strength with mobility and transfers. Home safety evaluation. Home exercise program if appropriate. OT: assess and continue rehab for managing ADL's. HOME HEALTH CARE AGENCY: [facility]. PHONE: [phone] FAX: [phone] Start of care: 24-48 hours after discharge FOR MEDICARE ONLY: (please delete this section if not Medicare) In discussion with the attending physician, it is certified that the clinical findings support thatthis patient is homebound because absences from home require considerable and taxing effort due to:Debility, requires assistance of 1 or more persons to leave the home Please note that any additional orders needs or changes will need to be obtained from this patient's PCP: Linda Vang MD [address] / [facility] [address] All [facility] agencies which cover the area of patient's residence have been reviewed, either verbally jagruti writing, and patient/family have chosen the home health care agency noted Question Response Notes Agency name and contact information [facility] Patient location post discharge Home What services are requested Registered Nurse What services are requested Physical Therapy What services are requested Occupational Therapy Responsible MD post discharge contact info PCP Special Instructions Given to Patient at Discharge:. An After Visit Summary was printed and given to the patient. Your care was managed by the Trauma and Acute Care Surgery Team at [facility]. If you have any questions or concerns, please feel free to contact us. Provider Contact Information: General Surgery Clinic: Nurses line for questions: [facility] (after business hours): CC: Linda Vang MD [place] Kirti Gomez APRN Signed: Albina Quach APRN Department of Surgery 12/16/2021 Trauma pager [phone] documented in this encounter Discharge Instructions * Discharge Instructions* Jordan Hutchinson MD - 12/15/2021 4:54 PM EST THORACIC SURGERY INSTRUCTIONS During your admission you were found to have to a nodule on your left lower lobe. We recommend you follow up with Dr. Khalil Thoracic Surgery [facility] in 3 months with a new CT scan of your chest. Call if you have a fever of greater than 101 degrees, shaking chills, develop redness or drainage from your incision site(s), or if you have questions. During normal business hours, Monday- Monday 8:00 a.m.-5:00 p.m., please call to speak to a nurse in the Thoracic Clinic at [phone]. After hours or on weekends or holidays please call: [phone] and ask to speak to the Thoracic Surgeon taxation accountant. Exercise & Activity Level: As you recover from surgery exercise at least 30 minutes a day. Thiscan be broken up into several times a day to achieve this goal at first, but you will be able to work up to doing all 30 minutes at once. Walking, treadmill, stationary bike, elliptical machine or there stationary exercise equipment is appropriate. Take your incentive spirometer home with you. You should use this every hour while awake, 10 times each. This helps you to exercise your respiratory muscles and to breathe deeply. Taking purposeful deep breaths can be just as effective. Do not lift more than 10 pounds for 6-8 weeks (nothing heavier than a gallon of milk) unless otherwise instructed by Thoracic Surgery. Don???t exhaust yourself. Rest between activities as you recoverfrom your procedure. Follow up appointments: You will see Dr. Khalil in 3 months with a chest CT scan within one hour ofthe appointment. A letter will be mailed to you confirming your appointment information. No future appointments. * Patient Instructions* Albina Quach APRN - 12/13/2021 3:33 PM EST Discharge Instructions You were found to have the following injuries and will require follow care as outlined below: Injury Intervention Follow-up PULM: Left rib fractures 5-12 Left hemothorax Pulmonary Toilet IS 10x/hr Aerobika Pain control CXR 12/13 stable THORACIC SURGERY: - No indication for acute surgical intervention - Also a 1.6 cm posterior pleural based superior segment left lower lobe nodule is new compared to 10/12/2021 CT. We recommend follow up in 3 months. TRAUMA Follow up in 10-14 days with repeat CXR (PA and Lateral views) THORACIC SURGERY: - follow up in 3 months. As a result of your CT scans, you were found to have the following incidental findings, please discuss with your primary care provider at you next visit: A 1.6 cm posterior pleural based superior segment left lower lobe nodule is new compared to 10/12/2021 CT. Given rapid development, a nonneoplastic etiology such as extension of pleural blood products or infection/inflammation is favored. However, given the patient's risk factors a follow-up noncontrast CT in 3-6 months is recommended to assess for persistence or resolution. Superior segment LEFT lower lobe 2.0 cm nodule. New compared to CT from 10/12/2021; recommend close interval follow-up for assessment of stability. CALL YOUR PHYSICIAN IF: You have a fever greater than 101F You have diarrhea or vomiting for >24 hours, or stop having bowel movements and passing flatus You have worsening pain, not controlled with your pain medication. You develop redness, swelling, or new drainage from your wounds Follow up: Future Appointments Date Time Provider Department Center 12/29/2021 9:45 AM [facility] DB XRAY ROOM 2 Xray [facility] Rad 12/29/2021 11:00 AM Annemarie Gomez APRN [facility] SURG [facility] Narcotics: You may be given a prescription for a narcotic medication immediately following your surgery. Narcotics are prescribed for short-term (1-3 days) use to help treat your pain. Narcotics do not reduce inflammation and it is inflammation that is usually a major cause of pain after surgery. Narcotics have many side effects such as constipation, lightheadedness, dizziness, sedation, confusion, nausea and vomiting. Driving and the use of alcohol are not recommended while you are using narcotic pain medications. Non-steroidal anti-inflammatories (NSAIDS) such as aspirin, Aleve and ibuprofen (Advil, Motrin) aremedications that reduce pain and inflammation. To reduce your chance of side effects, it is recommended that you use Tylenol as needed for pain and then NSAIDs and use narcotics as the last resort. Alternative means of pain relief such as rest and relaxation, positioning, as well as decreasing stimulants such as coffee, tea, soft drinks, and nicotine may also help to alleviate pain. If you continue to experience significant pain 4-5 days after your discharge, it may be necessary to be re-evaluated by your physician. Driving Restrictions: - No driving if you are too sore to enter or exit your vehicle comfortably, or if you are too sore to easily check your blind spot. No driving while using prescription pain medications Activities: - Discuss return to work or school with your provide at your follow up appointment in the trauma clinic. - Increase your activity slowly. If it hurts don't do it, but try again the following day. - You may tire easily, so frequent naps may be necessary.. - Talk with your doctor about when you can return to work or school. - You may take a shower but have someone nearby in case you need help. Diet: Eat a well-balanced diet. Fresh fruits, vegetables and fiber-containing foods are recommended. Thiswill assist in wound healing. Recommendations: - Take it easy for two weeks. Remember, If it hurts, don't do it. - Take several slow, short walks each day for the first two weeks, and gradually increase your distance. We recommend at least 4 times a day. Wound Care: - You can shower per usual routine - Do not submerge wounds under water (avoid spas, pools and bathtubs) until fully healed. - Do not use creams, oils, or ointments on the wound. - See follow-up appointments for removal of sutures/neena. Comfort: - Some soreness can be expected. - Take your pain medication as needed and prescribed. - Taper use of pain medication as pain lessens. Follow up appointments: 1. You will have follow-up appointments at [facility] as indicated in the ???Future Appointments and Orders?? section of your discharge summary. If X-rays or CT scans have been ordered for you prior to this appointment you will need to report to the Radiology department, desk 3T, 1 hour prior to your clinic appointment time. 2. If you do not have a scheduled follow-up appointment listed at the time of discharge, you will be notified of your scheduled appointment on the next business day. Please call [phone] if you do not hear from us by that time, as your timely follow-up is very important to us. Your care was managed by the Trauma and Acute Care Surgery Team at [facility]. If you have any questions or concerns, please feel free to contact us. Provider Contact Information: General Surgery: [facility] (after business hours): Primary Care Physician: LINDA VANG Coumadin?? (warfarin) Management after Discharge Reason for anticoagulation therapy: continuation of home regimen of warfarin with VNA and PCP managing INR Goal: 2.5 - 3.5 Your Coumadin?? (warfarin) dosing instruction upon discharge is: To be determined by PCP and VNA nurses Warfarin (Coumadin??) should be taken at the same time every day, usually at 5pm. Your next INR is scheduled on: Monday morning and be done by the VNA (your INR will be checked every 2-3 days by VNA) Provider/Team responsible for your outpatient Coumadin?? (warfarin) management: PCP and VNA If you have not received a call from your provider, by 4pm, after having your INR drawn, please call for further dose instructions. If you are taking Lovenox?? (enoxaparin) injections, continue taking until instructed to stop. (Youwill be taking this medication until your INR is in the therapeutic range.) It is very important that you have your PT/INR checked regularly as your dose may change based on your lab values. Expected duration of treatment: Indefinite The following table shows your most recent INR results and Coumadin?? warfarin doses: Date Notes INR Coumadin?? dose 12/15/2021 1.7 7.5mg 12/16/2021 2.4 5mg Please review the instructions on how to take warfarin safely included in your discharge packet: Taking Warfarin Safely: After Your Visit Consistent Vitamin K Diet: After Your Visit * Attachments The following attachments cannot be sent through Care Everywhere. * Rib Fracture (Japanese) documented in this encounter Medications at Time of Discharge [...] 10/13/2016 08/08/2023 documented as of this encounter Progress Notes * Davina Novak RN - 12/16/2021 1:28 PM EST Patient discharged to home via private vehicle in stable condition. Masimo and IV site removed. Belongings with the pt.Gave report and faxed discharge summary to [facility]. AVS reviewed and gave to the pt. * Everardo Beasley MSW - 12/16/2021 10:43 AM EST PROPULSION MOTOR AND GENERATOR REPAIRER met with pt to provide information on personal home medical alert systems including each company's phone # if pt wishes to obtain specific information regarding products. Pt appreciative of this information. * Albina Quach APRN - 12/16/2021 6:57 AM EST TACS DISCHARGE FOLLOW-UP REQUEST IID/MECHANISM OF INJURY: London Neri is a 71 y.o. male s/p fall with the following injuries: INJURIES BOX: Injury Intervention Follow-up PULM: 1. Left rib fractures 5-12 ?? 2. Left hemothorax? Pulmonary Toilet IS 10x/hr Aerobika Pain control?? CXR 12/13 stable? THORACIC SURGERY: - No indication for acute surgical intervention - Also a??1.6 cm posterior pleural based superior segment left lower lobe nodule is new compared to 10/12/2021 CT.??We recommend follow up in 3 months. ?? TRAUMA Follow up in 10-14 days with repeat CXR (PA and Lateral views)? THORACIC SURGERY: - follow up in 3 months. ? 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 10-14 days Imaging and Referral orders entered: Yes Radiology Safety questions done for MRI/CT? N/A Patient over age 65? Make sure to drop Hannah dot if answer yes ON DISCHARGE SUMMARY/AVS. Yes New or current ostomy? Ostomy nurse shared visit No Mobility concerns: Ambulatory w. assistive device Wound vac (requires 60min clinic visit) NO On vent? If Yes - Needs to have someone from facility and supplies. NO On Dialysis: NO INCIDENTAL FINDINGS Incidental Findings (yes/no): Yes OPIOID CONSENT/NARCOTIC AGREEMENTS Current Month Narcotic Consent? N/A D/c to: Home If Rehab - Rehab Name: PCP Name: MD Albina Fu APRN 12/16/2021 * Willi Anderson RN - 12/16/2021 5:50 AM EST OUTCOME EVALUATION NOTE: OUTCOME SUMMARY: Pt is A/Ox4 and VSS on RA. No complaints of nausea, SOB, or numbness/tingling. Pain reported in L ribs. Pain managed with scheduled and PRN medications. Pt voiding adequately in urinal at bedside. Ptup in chair throughout shift. PLAN MOVING FORWARD: Discharge planning Encourage ambulation Monitor I&O INDIVIDUALIZED FALL PREVENTION INTERVENTIONS: Patient-specific fall risk factors per assessment: [current deficits]: Tethering lines, recent surgery, narcotics, weakness, mobility aid, unfamiliar environment, advanced age Assistance [level of assistance required for transfers and ambulation]: SBA w/ FWW Supervision [direct monitoring required during toileting and ADLs]: Hands on Surveillance [continuous indirect monitoring]: Purposeful rounding, call harris within reach Patient-specific fall prevention interventions for sensory deficits provided, if applicable: [X] No CPG GOAL OUTCOME EVALUATION: * Jitendra Stevenson, PT - 12/15/2021 6:18 PM EST Physical Therapy Note Treatment Number PT: 4 Patient profile: London Neri is a 71 y.o. Right handed male admitted on 12/12/2021. He presented from OSH as a trauma transfer due to CT at OSH showing possible liver laceration and rib fractures. He had a fall on the ice and landed on his left side. Work up here revealed: -Left rib fractures 5-12 -Left hemothorax?? He also reports history of dizziness and had scheduled outpt appt this week for Pacemaker check with EP. Cardiology has been consulted. He is now being managed on , he was initially in the ED. ?? PMH of COPD, emphysema,??AFib, Atrial and Mitral valve replacement with mechanical valves (1998) onwarfarin,??pacemaker??(2007), hx of recurrent spontaneous PTX (s/p L VATs, partial decortication, blebectomy, talc pleurodesis), ??chronic shoulder pain. 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 He has 1 cat at home. He stays on one level. Bathroom Set-up: tub shower Stairs: 6 stairs to enter, pt unclear if he has 1 or 2 rails today. 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 Equipment at home: none, sleeps in a regular bed, does not have a recliner, has a cellphone Fall history: recent fall on the ice. ?? Precautions/Special Considerations: fall risk, recent Left rib fractures, pain. Lines: IV RUE Activity Orders: activity as tolerated Diet: Reg diet. Mobility and Positioning Recommendations: ?? Pt. to utilize rolling walker and supervision for ambulation and transfers with nursing. ?? Needs supervision to contact guard for stairs. ?? Needed extra time with supine <-> sit to the right side of the bed , but plans to sleep inrecliner at home. ?? Please encourage up to chair for meal times as able. ?? Pt encouraged to ambulate frequently with staff, getting into the bathroom for toileting and walking out in the morel >/= 3 times daily as able. Subjective: It has been delivered, regarding recliner at home. The community has a group, and it is set up for meals and help, regarding having help at home. Objective: Patient seen for physical therapy and demonstrated the following: Pain: 3/10 pain today, slight increased with activity, but reported tolerable at end of session. Vital Signs: Heart Rate: 72 (80's with walk, end session 74) BP: (see RN flow sheets) SpO2: 95 % (91% post activity, 96% end on RA) O2 Device: None (Room air) ?? Pt in recliner when PT arrived, reclined and alert and friendly. ?? Able to sit recliner up with supervision. ?? Sit to stand with supervision to independently. ?? Pt ambulated 200 ft With step through gait with walker with steady gait with supervision ?? Stairs_ up and down 6 stairs with rail on left going up, and went up sideways with 2 hands on rail leading with right LE, step by step with supervision, and down stairs frontwards with hand on rail on right, step by step with supervision to contact guard- steady. ?? Stand to sit with supervision and cues, was distracted about his items because room side was being changed to window side of the room. ?? Reviewed safety at home, need to carry cellphone at all times, to sleep in the recliner, to use walker, and to call for help as needed. ?? Left sitting in recliner with all needs in reach. RN aware of pt's status and monitoring. Education: Pt educated on safety and recommendations for a safe d/c home. Assessment: London Neri was seen today for physical therapy treatment session for continuation of POC. Pt feeling better with improved pain control today, and he is planning to d/c home tomorrow with community supports in place. He has a recliner now set up at home and he will need a rolling walker, and may benefit from lifeline, but is also aware to carry phone with him at all times. Also recommend maximized home services and 24/7 support initially (but likely 24/7 support will not be available). Pt feels safe with his status and safe to return home with supports in place. Expect he will continue to make good gains at home, and he verbalizes good safety awareness. Will continue PT as needed while patient remains in-house, but expect d/c tomorrow with supports in place Pt will benefit from ongoing therapeutic interventions to achieve therapy goals. Discharge Recommendations: Based on the current findings, Anticipated Discharge Disposition (PT): home with supervision, home with home health (home PT and home OT, and supervision at home as able. Recommend 24/7 supervision, but he likely does not have that, he reports he will call for help as needed.) when medically ready for hospital discharge. Consult Recommendations: Will need home services when he does return home, and increased supervision at home. Equipment needs: Anticipated Equipment Needs at Discharge (PT): walker, front wheeled (got a recliner set up from [facility], to carry cellphone, but ?lifeline) Physical Therapy Goals: To be achieved by 12/20/21:-The BELOW GOALS remain ONGOING- unless otherwise indicated- ?? 1. Pt. to demonstrate knowledge of safety limitations and precautions and will appropriately request assistance for functional activities and to mobilize.-(MET) 2. Pt. to demonstrate understanding of AROM and breathing exercises. - (to continue with home PT) 3. Pt. to perform bed mobility with modified independence and using walker at bed side like a rail as needed. - (to continue with home PT- Plans to sleep in a recliner) 4. Pt. to perform Sit<->stand and Stand Pivot transfers with modified independence using a front wheeled walker. -(MET) 5. Pt. to ambulate 250 feet with modified independence using a front wheeled walker. (progressing) 6. Pt. to ambulate up/down 6 step/stairs using one rail with supervision. -(MET) 7. Family or caregiver to demonstrate understanding of therapeutic interventions to support the care of the patient.- (no family/caregiver present- pt aware to ask for assistance as needed). Plan: Therapy Frequency (PT): 2-4 times/wk for as outlined in initial evaluation. Time IN / OUT: 1758 to 1818 Total Minutes, Physical Therapy: 20 ; Billing Code: functional mobility JITENDRA STEVENSON, PT Pager:[phone] Physical Therapy Inpatient Rehabilitation Department * Margaret Treviño OT - 12/15/2021 3:10 PM EST 12/15/21 1510 OT Time and Intention Document Type contact Total Minutes, Occupational Therapy 0 Session Not Performed patient/family declined treatment Comment, Session Not Performed Attempted to see Pt for OT treatment but he declined to participate.He had just returned from walking the unit with the nurse and stated he was too fatigued to work with OT. Pt reported having better pain control today. Will follow up as available/appropriate. * Samina Metcalf PA - 12/15/2021 1:55 PM EST Trauma Daily Progress Note ID/Mechanism of injury: London Neri is a 71 y.o. Male admitted on 12/12/2021 following slip and fall on ice for the management of Pulmonary injuries (Please see below box for a complete summary of injuries) ?? 24 Hour Events: - overnight afebrile with stable vitals on room air - stable hemoglobin 12.4 (12.4) - flexeril discontinued due to risk of delirium - famotidine discontinued due to risk of delirium - window room requested - dilaudid changed to oxycodone - INR 1.7 this morning, UFH 0.72 - ordered 7.5mg warfarin - transitioned off heparin drip to lovenox - LBM 12/13 - Thoracic Surgery recommend no rib plating - dispo planning Subjective: Denies new pain, dizziness, headache, fatigue, abdominal pain, nausea, vomiting Current Medications: ??? pantoprazole 20 mg Intravenous Daily ??? warfarin 7.5 mg Oral Once ??? enoxaparin 120 mg Subcutaneous Nightly ??? warfarin (COUMADIN) daily order reminder Oral Q24H ??? sodium chloride 0.9 % (flush) 5 mL Intravenous BID ??? lidocaine 2 patch Transdermal Q24H And ??? lidocaine 2 patch Transdermal Q24H ??? tamsulosin 0.4 mg Oral Daily ??? acetaminophen 650 mg Oral Q8H SOPHIE ??? senna-docusate 2 tablet Oral BID Vital Signs: VITALS (24hr Range): Temp Temp: [36.3 ??C (97.3 ??F)-37 ??C (98.6 ??F)] , HR Heart Rate: --, BP BP: (114-133)/(55-64) , RR Resp: [16-18] , SpO2 SpO2: [93 %-95 %] Body mass index is 25.07 kg/m??. I/O: Intake/Output Summary (Last 24 hours) at 12/15/2021 1355 Last data filed at 12/15/2021 1300 Gross per 24 hour Intake 2150.6 ml Output 1950 ml Net 200.6 ml Physical Exam: GENERAL: fully awake and alert elderly male patient, sitting up in chair, wearing glasses, in no apparent distress, appropriately answering questions, pleasant, conversant SKIN: no open wounds identified on full anterior and posterior skin exam. HEENT: Normocephalic, atraumatic. No periorbital ecchymosis/edema. Sclera white, conjunctiva non-injected. No otorrhea. No rhinorrhea, moist mucous membranes. NECK: Trachea held midline. No contusions, abrasions. CHEST/LUNGS: No evidence of ecchymosis or edema on inspection. +chest wall tenderness to the left. No evidence of respiratory distress or increased work of breathing. Lungs are clear to auscultation bilaterally. CARDIAC: S1 and S2 heard clearly. 2+ radial and DP pulses bilaterally. ABDOMEN/GI: Abdomen is soft, non-distended, non-tender. EXT: Upper extremities: Demonstrate full ROM. 5/5 drop wire aliner strength. Able to follow commands. Lower extremities: Demonstrate full ROM. 5/5 strength with dorsiflexion and plantar flexion. NEURO: Alert and oriented to person, place, time and event. Cranial nerves II - XII grossly intact.Sensation intact throughout. Following two step commands. Labs: Recent Labs 12/15/21 0552 12/14/21 0437 12/13/21 1603 12/13/21 0607 WBC 5.8 6.5 8.4 6.9 HGB 12.4* 12.4* 13.2* 12.4* HCT 36.6* 36.8* 38.8* 35.8* PLATELET 176 163 176 155 PT 19.6* 14.1* -- 16.3* INR 1.7 1.2 -- 1.4 PTT >160* 100* -- 33 Recent Labs 12/14/21 0616 12/13/21 0607 NA 138 135 K 4.5 4.3 CL 104 103 CO2 22 22 BUN 23* 26* CREATININE 0.96 1.06 GLUCOSE 92 92 CALCIUM 8.9 8.7 Microbiology: covid neg 12/12 New Imaging: CT chest 12/14/2021 FINDINGS: Pulmonary parenchyma: Severe centrilobular and paraseptal emphysema with biapical fibrobullous disease. A 1.8 cm pleural-based nodule at the left lung superior segment left lower lobe is stable compared to most recent prior and new compared to 10/12/2021. Biapical scarring. Airways: New dependent mucus in the right mainstem bronchus. Remaining airways are patent and normal in caliber. Pleura: Mildly progressed, loculated left hemothorax medially and at the base with interval evolution of blood products. The largest component is again located laterally deep to the displaced left eighth rib fracture. Calcifications along the parietal pleura and displaced visceral pleura are favored to represent sequela of prior pleurodesis. No pneumothorax. Lymph nodes: No pathologically enlarged lymph nodes. Heart, pericardium, and great vessels: Stable cardiomegaly with left atrial enlargement. No pericardial effusion. Prosthetic mitral and aortic valves again noted. Left chest wall pulse generator with intact leads in the right atrium and right ventricle. Nondilated thoracic aorta with moderate atherosclerotic calcification. Moderate left anterior descending coronary artery atherosclerotic calcification. Other mediastinal structures: Small hiatal hernia. Lower neck: No significant findings. Upper abdomen: No significant findings. Body wall soft tissues: Small superficial fat stranding overlying the inferolateral left ribs Skeletal structures: Unchanged left-sided partially and completely displaced rib fractures involving the left fourth through 12th ribs. Greatest displacement at the left lateral eighth rib as above. Chronic right-sided rib fractures. IMPRESSION 1. Slight progression of of loculated hemothorax. [...] displacement at the left lateral eighth rib. Procedures: none Problem List: - Acute pain Assessment: London Neri is a 71 y.o. male with PMH of COPD, emphysema, AFib, Atrial and Mitral valve replacement with mechanical valves (1998) on warfarin, pacemaker (2007), hx of recurrent spontaneous PTX (s/p L VATs, partial decortication, blebectomy, talc pleurodesis ), chronic shoulder pain,here s/p slip and fall on ice, - LOC, no head strike, admitted on 12/12. Transferred from OSH where he received vitamin K for coumadin for INR 3.6 Traumatic injuries included in chart. ?? On admission home coumadin was held due to finding of hemothorax on second reads on CT, repeat CXR 12/13 stable, morning hgb stable, heparin drip and home dose of coumadin 10mg started 12/13 as recommended by Cardiology consulted for assistance day prior. Will continue to monitor daily INR, coumadin and heparin bridge until INR at goal (2.5-3.5), will stop heparin once therapeutic. 12/15 in discussion with Cardiology/Gerontology and the rest of the team, it was decided to transition pt from heparin drip to lovenox injections which will help with disposition to home with PCP and VNA help to manage coumadin until at goal. PCP verified that they will help manage out patient transition to lovenox.VNA requested for INR check every 2-3 days (with first check on day 3 or Monday). Triage nurse will call pt on Monday morning to check in. Pt continues to be hemodynamically normal with stable hgb.Lovenox teaching to be done by nursing 12/15. ?? Pt reported having dizziness intermittently the last few weeks for which he already had an EP appointment o/pt on 12/13; EP team paged and notified; pt was seen, pacemaker adjusted. ?? Radiology contacted regarding CT chest 2nd read and confirmed there is no pneumothorax 12/13. 12/14 Thoracic Surgery team consulted given pt history of recurrent spontaneous PTX s/p left VATs, partial decortication, Blebectomy, talc pleurodesis by Dr. Khalil for assistance with management of displaced rib fracture and need for plating. They recommended repeat non contract chest CT at this time as pt is on anticoagulation. CT reviewed on 12/[address] Light. Thoracic surgery recommend no surgical intervention at this time. Plan: Traumatic Injuries: Injury Intervention Follow-up PULM: Left rib fractures 5-12 ?? Left hemothorax ?? Pulmonary Toilet IS 10x/hr Aerobika Pain control CXR 12/13 stable ?? THORACIC SURGERY: - No indication for acute surgical intervention - Also a 1.6 cm posterior pleural based superior segment left lower lobe nodule is new compared to 10/12/2021 CT. We recommend follow up in 3 months. ?? TRAUMA Follow up in 10-14 days with repeat CXR (PA and Lateral views) ?? THORACIC SURGERY: - follow up in 3 months. ?? Acute in hospital issues: Acute pain -2 lidoderm patches - tylenol 650mg q8hr SCHED - oxycodone 2.5mg PO q4hr PRN ?? Bowel Regimen -miralax daily PRN - pericolace BID - dulcolax PRN LBM: 12/13 ?? Admission UA: negative ?? Tox Screen: presumed + oxycodone and fentanyl ?? Resolved in hospital issues: TBD ?? Chronic health conditions: AFib, pacemaker, AVR, MVR: home coumadin started 12/13 with heparin bridge until INR at goal (2.5-3.5). Heparin drip stopped 12/15 transitioned to lovenox. ?? Pt reported hx frequent nose bleeds on coumadin: continue to monitor ?? BPH: continue home flomax ?? Fluids/Electrolytes: Tolerating PO Diet: Regular diet Activity status: Activity As Tolerated Spine status: No spinal injuries noted Pulmonary toilet: Encourage frequent mobilization, IS use, titrate O2 >90 DVT PPX: SCDs, restarting home AC regimen 12/13 GI PPX: Not indicated, tolerating diet Lines/Tubes/Drains: PIV Consults (Please see cardiology consultant notes): PT/OT, cardiology, EP Dispo: home with VNA and FWW,CRC working on dispo plan Status: Floor ?? Incidental Findings: A 1.6 cm posterior pleural based superior segment left lower lobe nodule is new compared to 10/12/2021 CT. Given rapid development, a nonneoplastic etiology such as extension of pleural blood products or infection/inflammation is favored. However, given the patient's risk factors a follow-up noncontrast CT in 3-6 months is recommended to assess for persistence or resolution. []? Incidental Findings Form Completed [place] 12/15/2021 Trauma pager [phone] * Meghan Castrejon APRN - 12/15/2021 7:01 AM EST Geriatric Medicine Progress Note NAME: London Neri Encounter Date: 12/15/2021 Inpatient Attending: Harjinder Light MD PCP: Linda Vang MD Hospital day: Hospital Day 3 days Code Status: FULL CODE ID: London Neri is a 71 y.o. male with PMH of high grade AV block s/p pacemaker, atrial fibrillation, mechanical mitral and aortic valve replacements (1998, on coumadin), COPD, and prior left thoracoscopic partial decortication with blebectomy and talc pleurodesis for recurrent spontaneous pneumothorax who was admitted after a mechanical fall found to have fractures of left ribs 5-12, with associated chest wall hematoma. HE continues to be followed by the Geriatrics service for falls prevention and discharge planning. Interval History: -Slept well overnight -Pain controlled with standing and PRN medication -INR 1.7 today, continues on heparin gtt Physical sx/ROS: Endorsing pain with movement, explains pain is well controlled with PRN and standing pain meds. Denies nausea/vomiting, dizziness and SOB. Relevant Geriatrics Medications: Scheduled Meds: ??? pantoprazole 20 mg Intravenous Daily ??? warfarin (COUMADIN) daily order reminder Oral Q24H ??? sodium chloride 0.9 % (flush) 5 mL Intravenous BID ??? lidocaine 2 patch Transdermal Q24H And ??? lidocaine 2 patch Transdermal Q24H ??? tamsulosin 0.4 mg Oral Daily ??? acetaminophen 650 mg Oral Q8H SOPHIE ??? senna-docusate 2 tablet Oral BID Continuous Infusions: ??? heparin (porcine) infusion 1,150 Units/hr (12/15/21 0700) PRN Meds (including 24 hour use): Flexeril 5 mg PO x 3 (4629, 4454, 0356) Oxycodone 2.5 x 3 (1232, 1749, 0356) Social History/Context: Reviewed. No relevant changes. Physical Examination: Last value Range last 24 hrs Temperature Temp: 36.7 ??C (98.1 ??F) Temp: [36.3 ??C (97.3 ??F)-37 ??C (98.6 ??F)] Heart Rate Heart Rate: 69 Heart Rate: [69] Blood Pressure BP: 128/64 BP: (114-135)/(55-70) Respiratory Rate Resp: 16 Resp: [16-18] SpO2 SpO2: 93 % SpO2: [93 %-96 %] Gen: Elderly male, sitting up in chair in no acute distress. Alert, responsive and comfortable. HEENT: EOMI, PERRL, anicteric sclera, wearing glasses Neck: Full range of motion, no increase in JVD Lungs: No wheezes, no crackles, clear to auscultation, tender L chest wall on palpation Chest/Back: No spinal tenderness, no visible deformities or scoliosis appreciated Heart: S1,S2, pulses equal Abdomen: Soft, non-tender, non-distended, BS present throughout Extremities: No clubbing, cyanosis or edema x 4 Skin: No rashes, lesions, plaques, nodules, or pressure ulcer on exposed skin Neurological:??Grossly normal, oriented to time, place and person Labs/Radiology: relevant interval data reviewed, pertinent results include: Lab Results Component Value Date WBC 5.8 12/15/2021 HGB 12.4 (L) 12/15/2021 HCT 36.6 (L) 12/15/2021 MCV 88.8 12/15/2021 PLATELET 176 12/15/2021 Lab Results Component Value Date NA 138 12/14/2021 K 4.5 12/14/2021 CL 104 12/14/2021 CO2 22 12/14/2021 BUN 23 (H) 12/14/2021 CREATININE 0.96 12/14/2021 GLUCOSE 92 12/14/2021 GLUCFASTING 110 (H) 07/30/2020 CALCIUM 8.9 12/14/2021 ESTGFR 79 12/14/2021 Lab Results Component Value Date ALT 13 12/14/2021 AST 21 12/14/2021 ALKPHOS 45 12/14/2021 BILITOT 0.7 12/14/2021 ALBUMIN 3.8 12/14/2021 PROT 6.3 12/14/2021 Lab Results Component Value Date INR 1.7 12/15/2021 Geriatric Assessment: London Neri??is a 71 y.o.??male??with PMH of high grade AV block s/p pacemaker, A fib s/p mechanical mitral and aortic valve replacements (1998, coumadin), COPD, and prior L thoracoscopic partial decortication with blebectomy and talc pleurodesis for recurrent spontaneous pneumothorax who presented to [facility] s/p slip and fall on ice found to have L rib fractures 5-12 with associated chest wall hematoma and INR of 3.6 - now being bridged on Heparin to therapeutic INR of 2.25-3.5. Dominic reports having a good night, pain is adequately controlled with medications. He is eager to return to his community and his home, feels that he has good supports. At this time, he remains on heparin gtt with goal INR of 2.5 - 3.5. Spoke with his PCP today to discuss discharge plan for coumadin. At this time, PCP is in agreement of the plan to discharge on Lovenox 1.5 mg/kg daily with close VNA follow up (q3days) for INR checks and close follow up in PCP office. PCP triage nurse plans to reach out to Dominic on Monday to check-in. Geriatrics will continue to follow for falls prevention anddischarge planning. ?? 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 Cognitive Status -Delirium Prevention and Management - Keep yellow box at bedside with assistive devices (glasses, hearing aids, dentures) - Provide hearing aids /glasses every morning at 9 AM - Open blinds and turn lights on every morning at 9 AM - Close blinds and turn lights off every evening at 9 PM - Reevaluate tethering devices (IV lines/poles, catheters, other devices) daily for possible removal - Avoid restraints if safe for patient, use verbal cues for redirection - Minimize deliriogenic medications (anticholinergics, opioids, sedatives, histamine blockers, corticosteroids) - If remaining in the hospital, would highly encourage bed next to a window ?? Anticoagulation -On coumadin with heparin bridge to goal INR of 2.5-3.5 -If being discharged, consider discontinuing heparin gtt and transitioning to Lovonox 1.5 mg/kg QD -VNA to follow up every three days for INR checks, coordinate closely with PCP -PCP to follow up - in agreement with this plan ?? Pain -Continue Acetaminophen 650 mg PO q8h, pain -Continue Lidoderm patches x 3 -Continue Oxycodone 2.5 - 5 PO q4h PRN, pain -Recommend discontinuing Hydromorphone 0.2 mg IVP q4h -Recommend discontinuing Flexeril 5 mg TID PRN -Bowel Regimen -Continue Miralax 17 g PO BID -Continue Pericolace ?? Polypharmacy/medication contributions and recommendations -Remain off of Famotidine and Flexeril as they are deliriogenic agents ?? Nutrition -Regular diet ?? Advance directive -FULL CODE -AD uploaded in chart ?? Planned follow up with PCP -Close FU with PCP upon discharge -PCP triage nurse to reach out to Monday morning ?? Suggested Discharge location: []? Rehabilitation Facility []? SNF []? LTC []? [facility] [x]? Home with Visiting Nurse Services []? Home with Hospice Services []? Home without-Patient Services ? 35 minute visit discussing pathophysiology and the diagnosis, and counselling this patient on treatment options, expectations and follow-up plan. ?? Geriatrics Pager: #[phone]??(M-F, 8am-5 pm) ?? Meghan Castrejon, CARRIE General Internal Medicine [facility] [place] ?? * Willi Anderson RN - 12/15/2021 6:58 AM EST OUTCOME EVALUATION NOTE: OUTCOME SUMMARY: Pt is A/Ox4 and VSS on RA. No complaints of nausea, SOB or numbness/tingling. Moderate pain reported in ribs. Pain managed with scheduled and PRN medications. Pt voiding adequately in the urinal. Pt did not have BM this shift, bowel meds given and active BS. Pt skin is intact. Heparin gtt running at 1150 units/hr. UFH due at 1200. PLAN MOVING FORWARD: Discharge planning Encourage ambulation Monitor I&O Bridge to coumadin INDIVIDUALIZED FALL PREVENTION INTERVENTIONS: Patient-specific fall risk factors per assessment: [current deficits]: Tethering lines, recent surgery, weakness, mobility aid, unfamiliar environment Assistance [level of assistance required for transfers and ambulation]: SBA w/ FWW Supervision [direct monitoring required during toileting and ADLs]: Within arms reach Surveillance [continuous indirect monitoring]: Purposeful rounding, call harris within reach Patient-specific fall prevention interventions for sensory deficits provided, if applicable: [X] No CPG GOAL OUTCOME EVALUATION: * Samina Metcalf PA - 12/14/2021 1:49 PM EST Trauma Daily Progress Note ID/Mechanism of injury: London Neri is a 71 y.o. Male admitted on 12/12/2021 following slip and fall on ice for the management of Pulmonary injuries (Please see below box for a complete summary of injuries) ?? 24 Hour Events: - afebrile with stable vitals overnight - heparin drip to bridge on coumadin, INR 1.2 - thoracic surgery consulted for hx pleurodesis, and displaced rib fracture, ? Plating - gerontology consulted - worked with PT/OT, recommend home - repeat non con chest CT per Thoracic - seen by EP for pacemaker - hgb 12.4 (13.2) - LBM 12/13 Subjective: Denies new pain Current Medications: ??? warfarin (COUMADIN) daily order reminder Oral Q24H ??? polyethylene glycoL 17 g Oral BID ??? sodium chloride 0.9 % (flush) 5 mL Intravenous BID ??? famotidine 20 mg Oral BID Or ??? famotidine 20 mg Intravenous BID ??? lidocaine 2 patch Transdermal Q24H And ??? lidocaine 2 patch Transdermal Q24H ??? tamsulosin 0.4 mg Oral Daily ??? acetaminophen 650 mg Oral Q8H SOPHIE ??? senna-docusate 2 tablet Oral BID Vital Signs: VITALS (24hr Range): Temp Temp: [36.4 ??C (97.5 ??F)-36.8 ??C (98.2 ??F)] , HR Heart Rate: --, BP BP: (113-135)/(51-70) , RR Resp: [16-18] , SpO2 SpO2: [94 %-96 %] Body mass index is 25.07 kg/m??. I/O: Intake/Output Summary (Last 24 hours) at 12/14/2021 1349 Last data filed at 12/14/2021 1255 Gross per 24 hour Intake 2119.2 ml Output 3450 ml Net -1330.8 ml Physical Exam: GENERAL: fully awake and alert elderly male patient, sitting up in bed, wearing glasses, in no apparent distress, appropriately answering questions, pleasant, conversant SKIN: no open wounds identified on full anterior and posterior skin exam. HEENT: Normocephalic, atraumatic. No periorbital ecchymosis/edema. Sclera white, conjunctiva non-injected. No otorrhea. No rhinorrhea, moist mucous membranes. NECK: Trachea held midline. No contusions, abrasions. CHEST/LUNGS: No evidence of ecchymosis or edema on inspection. +chest wall tenderness to the left. No evidence of respiratory distress or increased work of breathing. Lungs are clear to auscultation bilaterally. CARDIAC: S1 and S2 heard clearly. 2+ radial and DP pulses bilaterally. ABDOMEN/GI: Abdomen is soft, non-distended, non-tender. EXT: Upper extremities: Demonstrate full ROM. 5/5 drop wire aliner strength. Able to follow commands. Lower extremities: Demonstrate full ROM. 5/5 strength with dorsiflexion and plantar flexion. NEURO: Alert and oriented to person, place, time and event. Cranial nerves II - XII grossly intact.Sensation intact throughout. Labs: Recent Labs 12/14/21 0437 12/13/21 1603 12/13/21 0607 12/12/21 1233 12/12/21 0125 WBC 6.5 8.4 6.9 -- 8.9 HGB 12.4* 13.2* 12.4* -- 13.2* HCT 36.8* 38.8* 35.8* -- 39.0* PLATELET 163 176 155 -- 183 PT 14.1* -- 16.3* 18.2* -- INR 1.2 -- 1.4 1.6 -- PTT 100* -- 33 36 -- Recent Labs 12/14/21 0616 12/13/21 0607 12/12/21 0125 NA 138 135 137 K 4.5 4.3 4.2 CL 104 103 101 CO2 22 22 25 BUN 23* 26* 17 CREATININE 0.96 1.06 0.94 GLUCOSE 92 92 96 CALCIUM 8.9 8.7 9.2 Microbiology: covid neg 12/12 New Imaging: Procedures: none Problem List: - Acute pain Assessment: London Neri is a 71 y.o. male with PMH of COPD, emphysema, AFib, Atrial and Mitral valve replacement with mechanical valves (1998) on warfarin, pacemaker (2007), hx of recurrent spontaneous PTX (s/p L VATs, partial decortication, blebectomy, talc pleurodesis ), chronic shoulder pain,here s/p slip and fall on ice, - LOC, no head strike, admitted on 12/12. Transferred from OSH where he received vitamin K for coumadin for INR 3.6 Traumatic injuries included in chart. ?? On admission home coumadin was held due to finding of hemothorax on second reads on CT, repeat CXR 12/13 stable, morning hgb stable, heparin drip and home dose of coumadin 10mg started 12/13 as recommended by Cardiology consulted for assistance day prior. Will continue to monitor daily INR, coumadin and heparin bridge until INR at goal (2.5-3.5), will stop heparin once therapeutic. ?? Pt reported having dizziness intermittently the last few weeks for which he already had an EP appointment o/pt on 12/13; EP team paged and notified; pt was seen, nothing to do. ?? Radiology contacted regarding CT chest 2nd read and confirmed there is no pneumothorax 12/13. 12/14 Thoracic Surgery team consulted given pt history of recurrent spontaneous PTX s/p left VATs, partial decortication, Blebectomy, talc pleurodesis by Dr. Khalil for assistance with management of displaced rib fracture and need for plating. They recommended repeat non contract chest CT at this time as pt is on anticoagulation. This is ordered. Will follow up. Thoracic Surgery note pending. Plan: Traumatic Injuries: Injury Intervention Follow-up PULM: Left rib fractures 5-12 ?? Left hemothorax ?? Pulmonary Toilet IS 10x/hr Aerobika Pain control CXR 12/13 stable ? TRAUMA Follow up in 10-14 days with repeat CXR (PA and Lateral views) ? Acute in hospital issues: Acute pain -3 lidoderm patches - tylenol 650mg q8hr SCHED - oxycodone 2.5mg PO q4hr PRN ?? Bowel Regimen -miralax daily PRN - pericolace BID - dulcolax PRN LBM: DESK INTERVIEWER ?? Admission UA: negative ?? Tox Screen: presumed + oxycodone and fentanyl ?? Resolved in hospital issues: TBD ?? Chronic health conditions: AFib, pacemaker, AVR, MVR: home coumadin 10mg daily started 12/13 with heparin bridge until INR at goal (2.5-3.5) ?? Pt reported hx frequent nose bleeds on coumadin: continue to monitor ?? BPH: continue home flomax ?? Fluids/Electrolytes: Tolerating PO Diet: Regular diet Activity status: Activity As Tolerated Spine status: No spinal injuries noted Pulmonary toilet: Encourage frequent mobilization, IS use, titrate O2 >90 DVT PPX: SCDs, restarting home AC regimen 12/13 GI PPX: Not indicated, tolerating diet Lines/Tubes/Drains: PIV Consults (Please see cardiology consultant notes): PT/OT, cardiology, EP Dispo: home with VNA and FWW,CRC working on dispo plan Status: Floor ?? Incidental Findings: Superior segment LEFT lower lobe 2.0 cm nodule. New compared to CT from 10/12/2021; recommend close interval follow-up for assessment of stability. [x]? Incidental Findings Form Completed, Tea, 12/12/2021 [place] 12/14/2021 Trauma pager [phone] * Jitendra Stevenson, PT - 12/14/2021 12:32 PM EST Physical Therapy Note Treatment Number PT: 3 Patient profile: London Neri is a 71 y.o. Right handed male admitted on 12/12/2021. He presented from OSH as a trauma transfer due to CT at OSH showing possible liver laceration and rib fractures. He had a fall on the ice and landed on his left side. Work up here revealed: -Left rib fractures 5-12 -Left hemothorax?? He also reports history of dizziness and had scheduled outpt appt this week for Pacemaker check with EP. Cardiology has been consulted. He is now being managed on , he was initially in the ED. ?? PMH of COPD, emphysema,??AFib, Atrial and Mitral valve replacement with mechanical valves (1998) onwarfarin,??pacemaker??(2007), hx of recurrent spontaneous PTX (s/p L VATs, partial decortication, blebectomy, talc pleurodesis), ??chronic shoulder pain. Interval History: Per MD Notes: - afebrile with stable vitals overnight - heparin drip to bridge on coumadin, INR 1.2 - thoracic surgery consulted for hx pleurodesis, and displaced rib fracture, ? 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 He has 1 cat at home. He stays on one level. Bathroom Set-up: tub shower Stairs: 6 stairs to enter, pt unclear if he has 1 or 2 rails today. 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 Equipment at home: none, sleeps in a regular bed, does not have a recliner, has a cellphone Fall history: recent fall on the ice. ?? Precautions/Special Considerations: fall risk, recent Left rib fractures, pain. Lines: IV RUE Activity Orders: activity as tolerated Diet: Reg diet. Mobility and Positioning Recommendations: ?? Pt. to utilize rolling walker and contact guard for ambulation and transfers with nursing. ?? Needs contact guard for stairs. ?? Needed extra time with supine <-> sit to the right side of the bed , but plans to sleep inrecliner at home. ?? Please encourage up to chair for meal times as able. ?? Pt encouraged to ambulate frequently with staff, getting into the bathroom for toileting and walking out in the morel >/= 3 times daily as able. Subjective: I found a place to rent it in my touch, it will be power operated, [facility] and that [facility] will [facility] it. O, Oh, pt sighed with movement today which is new. They are talking to thoracic one of those ribs is displaced. pt reports team talking about possible need for surgery. Objective: Patient seen for physical therapy and demonstrated the following: Pain: 10/10 pain with activity today, 3/10 at rest- RN aware that pain is worse today. Vital Signs: Heart Rate: 69 BP: (see RN flow sheets) SpO2: 95 % O2 Device: None (Room air) ?? Pt in recliner when PT arrived, reclined and friend. ?? Able to sit recliner up with supervision. But had increased pain. ?? Sit to stand with supervision. With increased pain. ?? Pt ambulated 7 ft with rolling walker with contact guard and then a few feet to the bathroom holding wall with contact guard. Reported increased pain today. ?? Used urinate to urinate. ?? Ambulated out of bathroom with hand hold assist, took a few feet with walker, but had increased pain that limited his mobility today. Rn aware and was to medicate. ?? Stand to sit with contact guard and extra time. ?? Left reclined in recliner with all needs in reach. RN aware of pt's status and monitoring. Education: Pt educated to left staff know if pain gets works, discussed getting recliner set up at home prior to d/c. Assessment: London Neri was seen today for physical therapy treatment session for continuation of POC. Pt more limited today by pain which limited his mobility significantly today, staff nurse midwife aware and monitoring at end of session. Per discussion with RN and team patient may need possible rib plating. Pt getting a recliner from a rental place for home, and he still desires to return home when medically stable. However if he needs surgery he may need rehab prior to returning home. Pt continues to be medically managed. Will continue PT to safely progress his mobility and function while he remains in-house. Expect pt will need more supports in place at home to safely return home. Pt will benefit from ongoing therapeutic interventions to achieve therapy goals. Discharge Recommendations: Based on the current findings, Anticipated Discharge Disposition (PT): home with home health, home with supervision (recommend 24/7 supervision and home services) when medically ready for hospital discharge. ? Rehab if had surgery. Consult Recommendations: Will need home services when he does return home, and increased supervision at home. If has surgerymay need rehab. Equipment needs: Anticipated Equipment Needs at Discharge (PT): walker, front wheeled (a recliner and possibly lifeline) Physical Therapy Goals: To be achieved by 12/20/21:-The BELOW GOALS remain ONGOING- ?? 1. Pt. to demonstrate knowledge of safety limitations and precautions and will appropriately request assistance for functional activities and to mobilize. 2. Pt. to demonstrate understanding of AROM and breathing exercises. 3. Pt. to perform bed mobility with modified independence and using walker at bed side like a rail as needed. . 4. Pt. to perform Sit<->stand and Stand Pivot transfers with modified independence using a front wheeled walker. 5. Pt. to ambulate 250 feet with modified independence using a front wheeled walker. 6. Pt. to ambulate up/down 6 step/stairs using one rail with supervision. 7. Family or caregiver to demonstrate understanding of therapeutic interventions to support the care of the patient. Plan: Therapy Frequency (PT): 2-4 times/wk for as outlined in initial evaluation. Time IN / OUT: 1205 to 1232 Total Minutes, Physical Therapy: 27 ; Billing Code: functional mobility JITENDRA STEVENSON, PT Pager:[phone] Physical Therapy Inpatient Rehabilitation Department * Willi Anderson RN - 12/14/2021 6:23 AM EST OUTCOME EVALUATION NOTE: OUTCOME SUMMARY: Pt is A/Ox4 and VSS on RA. No complaints of nausea, SOB or numbness/tingling. Moderate pain reported in ribs. Pain managed with scheduled and PRN medications. Pt voiding adequately in the urinal. Pt did not have BM this shift, bowel meds given and active BS. Pt skin is intact. Heparin gtt therapeutic at 1300 units/hr. PLAN MOVING FORWARD: Discharge planning Encourage ambulation Monitor I&O INDIVIDUALIZED FALL PREVENTION INTERVENTIONS: Patient-specific fall risk factors per assessment: [current deficits]: Tethering lines, recent surgery, weakness, mobility aid, unfamiliar environment Assistance [level of assistance required for transfers and ambulation]: SBA w/ FWW Supervision [direct monitoring required during toileting and ADLs]: Within arms reach Surveillance [continuous indirect monitoring]: Purposeful rounding, call harris within reach Patient-specific fall prevention interventions for sensory deficits provided, if applicable: [X] No CPG GOAL OUTCOME EVALUATION: * Sushma Youssef RN - 12/13/2021 5:37 PM EST OUTCOME EVALUATION NOTE: OUTCOME SUMMARY: London had a good day. AAOx4. VSS on RA. Afebrile. Pain well controlled with scheduled tylenol and toradol. Pt voiding adequate amounts via urinal and BR, occasionally unmeasured - pt flushed down toilet x1. Pt passing gas and active bowel sounds, but no BM this shift. Pt ambulated in halls x3, tolerated well. Heparin gtt begun as bridge while warfarin is restarted until INR returns to therapeuticrange. Will continue to monitor. PLAN MOVING FORWARD: Encourage OOB/ambulation. PT/OT. Monitor labs/ heparin gtt/ UFH/ INR. Discharge planning. INDIVIDUALIZED FALL PREVENTION INTERVENTIONS: Patient-specific fall risk factors per assessment: [current deficits]: Generalized weakness, pain with movement Assistance [level of assistance required for transfers and ambulation]: SBA w/FWW Supervision [direct monitoring required during toileting and ADLs]: Eyes on Surveillance [continuous indirect monitoring]: [place], purposeful rounding, call harris in reach Patient-specific fall prevention interventions for sensory deficits provided, if applicable: [X] Yes, environmental modifications, lights adjusted to task, non- skid socks CPG GOAL OUTCOME EVALUATION: Ongoing * Samina Metcalf PA - 12/13/2021 3:33 PM EST Trauma Daily Progress Note ID/Mechanism of injury: London Neri is a 71 y.o. Male admitted on 12/12/2021 following slip and fall on ice for the management of Pulmonary injuries (Please see below box for a complete summary of injuries) ?? 24 Hour Events: - afebrile with stable vitals overnight - rCXR stable today - hgb 12.4 (13.2) - seen by cardiology, recommend AC when appropriate - heparin drip started, home dose warfarin started per card recs - worked with PT, recommend home - seen by EP for pacemaker interrogation appointment - toradol stopped - no BM, meds adjusted Subjective: I feel okay when can I go home? Current Medications: ??? warfarin 10 mg Oral Once ??? sodium chloride 0.9 % (flush) 5 mL Intravenous BID ??? famotidine 20 mg Oral BID Or ??? famotidine 20 mg Intravenous BID ??? ketorolac 15 mg Intravenous Q8H SOPHIE ??? lidocaine 2 patch Transdermal Q24H And ??? lidocaine 2 patch Transdermal Q24H ??? tamsulosin 0.4 mg Oral Daily ??? acetaminophen 650 mg Oral Q8H SOPHIE ??? senna-docusate 2 tablet Oral BID Vital Signs: VITALS (24hr Range): Temp Temp: [36.4 ??C (97.5 ??F)-36.9 ??C (98.4 ??F)] , HR Heart Rate: [60-61] , BP BP: (109-125)/(50-63) , RR Resp: [16-17] , SpO2 SpO2: [94 %-96 %] Body mass index is 25.07 kg/m??. I/O: Intake/Output Summary (Last 24 hours) at 12/13/2021 1533 Last data filed at 12/13/2021 1400 Gross per 24 hour Intake 1018 ml Output 775 ml Net 243 ml Physical Exam: GENERAL: Awake and alert elderly male patient, sitting up in bed, wearing glasses, in no apparent distress, appropriately answering questions, pleasant, conversant SKIN: no open wounds identified on full anterior and posterior skin exam. HEENT: Normocephalic, atraumatic. No periorbital ecchymosis/edema. Sclera white, conjunctiva non-injected. No otorrhea. No rhinorrhea, moist mucous membranes. NECK: Trachea held midline. No contusions, abrasions. CHEST/LUNGS: No evidence of ecchymosis or edema on inspection. +chest wall tenderness to the left. No evidence of respiratory distress or increased work of breathing. Lungs are clear to auscultation bilaterally. CARDIAC: S1 and S2 heard clearly. 2+ radial and DP pulses bilaterally. ABDOMEN/GI: Abdomen is soft, non-distended, non-tender. EXT: Upper extremities: Demonstrate full ROM. 5/5 drop wire aliner strength. Able to follow commands. Lower extremities: Demonstrate full ROM. 5/5 strength with dorsiflexion and plantar flexion. NEURO: Alert and oriented to person, place, time and event. Cranial nerves II - XII grossly intact.Sensation intact throughout. Labs: Recent Labs 12/13/21 0607 12/12/21 1233 12/12/21 0125 WBC 6.9 -- 8.9 HGB 12.4* -- 13.2* HCT 35.8* -- 39.0* PLATELET 155 -- 183 PT 16.3* 18.2* -- INR 1.4 1.6 -- PTT 33 36 -- Recent Labs 12/13/21 0607 12/12/21 0125 NA 135 137 K 4.3 4.2 CL 103 101 CO2 22 25 BUN 26* 17 CREATININE 1.06 0.94 GLUCOSE 92 96 CALCIUM 8.7 9.2 Microbiology: covid neg 12/12 New Imagin/21 CXR FINDINGS: Pacemaker lead tips, aortic and mitral prostheses, and intact sternotomy wires, as before. Similar to prior is bilobed loculated subpleural fluid versus extrapleural hematoma projecting by the lateral left mid hemithorax. No pneumothorax is seen. Greater than one shaft width displacement by lateral left eighth rib. Emphysematous changes at the lung apices, as before. ?? IMPRESSION Loculated subpleural fluid versus extrapleural hematoma, as before, projecting by lateral left mid hemithorax/ displaced lateral left eighth rib fracture. Procedures: none Problem List: - Acute pain Assessment: London Neri is a 71 y.o. male with PMH of COPD, emphysema, AFib, Atrial and Mitral valve replacement with mechanical valves (1998) on warfarin, pacemaker (2007), hx of recurrent spontaneous PTX (s/p L VATs, partial decortication, blebectomy, talc pleurodesis ), chronic shoulder pain,here s/p slip and fall on ice, - LOC, no head strike, admitted on 12/12. Transferred from OSH where he received vitamin K for coumadin for INR 3.6 Traumatic injuries included in chart. ?? On admission home coumadin was held due to finding of hemothorax on second reads on CT, repeat CXR 12/13 stable, morning hgb stable, starting heparin drip and home dose of coumadin 10mg as recommendedby Cardiology consulted for assistance day prior. Will continue to monitor daily INR, coumadin and heparin bridge until INR at goal (2.5-3.5), will stop heparin once therapeutic. ?? Pt reported having dizziness intermittently the last few weeks for which he already had an EP appointment o/pt on 12/13; EP team paged and notified; they were able to see pt today. ?? Radiology contacted regarding CT chest 2nd read and confirmed there is no pneumothorax 12/13. Plan: Traumatic Injuries: Injury Intervention Follow-up PULM: Left rib fractures 5-12 ?? Left hemothorax ?? Pulmonary Toilet IS 10x/hr Aerobika Pain control CXR 12/13 stable ? TRAUMA Follow up in 10-14 days with repeat CXR (PA and Lateral views) ? Acute in hospital issues: Acute pain -3 lidoderm patches - tylenol 650mg q8hr SCHED - oxycodone 2.5mg PO q4hr PRN ?? Bowel Regimen -miralax daily PRN - pericolace BID - dulcolax PRN LBM: DESK INTERVIEWER ?? Admission UA: negative ?? Tox Screen: presumed + oxycodone and fentanyl ?? Resolved in hospital issues: TBD ?? Chronic health conditions: AFib, pacemaker, AVR, MVR: home coumadin 10mg daily started 12/13 with heparin bridge until INR at goal (2.5-3.5) ?? Pt reported hx frequent nose bleeds on coumadin: continue to monitor ?? BPH: continue home flomax ?? Fluids/Electrolytes: Tolerating PO Diet: Regular diet Activity status: Activity As Tolerated Spine status: No spinal injuries noted Pulmonary toilet: Encourage frequent mobilization, IS use, titrate O2 >90 DVT PPX: SCDs, restarting home AC regimen 12/13 GI PPX: Not indicated, tolerating diet Lines/Tubes/Drains: PIV Consults (Please see cardiology consultant notes): PT/OT, cardiology, EP Dispo: home with VNA and FWW,CRC working on dispo plan Status: Floor ?? Incidental Findings: Superior segment LEFT lower lobe 2.0 cm nodule. New compared to CT from 10/12/2021; recommend close interval follow-up for assessment of stability. [x]? Incidental Findings Form Completed, Tea, 12/12/2021 [place] 12/13/2021 Trauma pager [phone] * Margaret Treviño, OT - 12/13/2021 1:15 PM EST Occupational Therapy Evaluation Patient profile: London Neri is a 71 y.o. male admitted on 12/12/2021 with PMH of COPD, emphysema,??AFib, Atrial and Mitral valve replacement with mechanical valves (1998) on warfarin,??pacemaker??(2007), hx of recurrent spontaneous PTX (s/p L VATs, partial decortication, blebectomy, talc pleurodesis ),??chronic shoulder pain,??here s/p slip and fall on ice, - LOC, no head strike, admitted on 12/12. Transferred from OSH where he received vitamin K for coumadin for INR 3.6 Traumatic injuries included in chart.? On admission home coumadin was held due to finding of hemothorax on second reads on CT, repeat CXR 12/13 stable, morning hgb stable, starting heparin drip and home dose of coumadin 10mg as recommendedby Cardiology consulted for assistance day prior. Will continue to monitor daily INR, coumadin and heparin bridge until INR at goal (2.5-3.5), will stop heparin once therapeutic. ?? Pt reported having dizziness intermittently the last few weeks for which he already had an EP appointment o/pt on 12/13; EP team paged and notified; they were able to see pt today. ?? Radiology contacted regarding CT chest 2nd read and confirmed there is no pneumothorax 12/13. ?? Plan: ?? Traumatic Injuries: Injury Intervention Follow-up PULM: Left rib fractures 5-12 ?? Left hemothorax? Pulmonary Toilet IS 10x/hr [employer] Pain control?? CXR 12/13 stable? TRAUMA Follow up in 10-14 days with repeat CXR (PA and Lateral views)? Past Medical History: Diagnosis Date ??? C. difficile colitis ??? COPD (chronic obstructive pulmonary disease) ??? Emphysema of lung ??? Hemorrhoid ??? Pacemaker - dual lead Medtronic 07/29/2020 ??? Pneumothorax on left Past Surgical History: Procedure Laterality Date ??? AORTIC VALVE REPLACEMENT 1998 ??? CARDIAC VALVE REPLACEMENT 1983 Aortic Valve ??? CARDIAC VALVE REPLACEMENT 1998 Mechanical Aortic and Mitral ??? HERNIA REPAIR ??? MITRAL VALVE REPLACEMENT 1998 ??? PRO BRONCHOSCOPY, DIAGNOSTIC Left 03/06/2021 BRONCHOSCOPY, DIAGNOSTIC (WRVU 2.78) performed by Navin Khalil MD at [facility] MAIN OR ??? PRO COLONOSCOPY, REMV LESN, SNARE N/A 01/26/2017 COLONOSCOPY, POLYPECTOMY, REMOVAL LESION BY SNARE (WRVU 4.67) performed by Lena Clark MD at [facility] ENDOSCOPY ??? PRO THORACOSCOPY SURG W/PLEURODESIS Left 03/06/2021 @THORACOSCOPY, SURG; W PLEURODESIS (WRVU 10.83) performed by Navin Khalil MD at [facility] MA[facility] OR ??? PRO THORACOSCOPY W RESECTION-PLICATION EMPHYSEMA LUNG UNILATERAL Left 03/06/2021 @THORACOSCOPY, SURG; W/RESC-PLICATION EMPHYSEMATOUS LUNG, UNILATERAL (WRVU 27) performed by Navin Khalil MD at [facility] MA[facility] OR ??? PRO THORACOSCOPY W/PARTIAL PULMONARY DECORTICATION Left 03/06/2021 @THORACOSCOPY, SURG; W PART. DECORTICATION (WRVU 18.78) performed by Navin Khalil MD at [facility] MA[facility] OR ??? PRO THORACOSCOPY W/PARTIAL PULMONARY DECORTICATION Left 03/09/2021 @THORACOSCOPY, SURG; W PART. DECORTICATION (WRVU 18.78) performed by Navin Khalil MD at [facility] MA[facility] OR ??? PRO THORACOTOMY, CTRL TRAUMA BLEED Left 03/09/2021 @THORACOTOMY WEXPL,CONTROL BLDNG (WRVU 25.28) performed by Navin Khalil MD at [facility] MA[facility] OR Social History: Patient is currently living alone in a single story home with 6 DAVION. is in [place] until the end of December. Home Setup: Bathroom has a tub shower with grab bars, no shower chair. DME: None reported. Baseline ADL/Mobility: Pt reported he was independent with (I)ADLs and did not use a device for mobility. 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 Precautions/Special Considerations: fall risk, activity as tolerated Subjective: I will call someone if I need the help. Objective: Seen today for OT evaluation. Cognitive Status/Behavior: ?? Behavior / Mood: alert and cooperative ?? Alert and oriented to: person, place and time ?? Follows commands: multi step ?? Attention: WFL ?? Safety awareness: decreased insight into deficits Vision & Perception: ?? corrective lenses multimedia developer Communication: WFL Range of motion, strength, coordination: Hand dominance: right Bilateral UEs are within functional limitations LE limitations: WFL Activities of Daily Living: Self-feeding: Set up Grooming: Modified independent in sitting; Supervision assist standing at the sink Dressing: Pt donned socks and pants with supervision assist with some increased pain with bending/reaching. Bathing: Not assessed Toileting: Transfer: Supervision assist Hygiene: Not assessed Functional Mobility: Supine to sit: Not assessed - seated in recliner Sit to stand: Supervision assist Ambulation: Supervision assist, 300 feet Stand to sit: Supervision assist Sit to supine: Not assessed Balance: Sitting balance: Good Standing balance: Good with FWW Vitals: Stable on RA; inconsistent Caleb monitoring during mobility while gripping FWW. Pain: Increased pain with sit <=> stand transfers and bending and reaching as expected but overall tolerable during activity. Education: patient have been educated on Role of occupational therapy/rehabilitation, Transfers, ADL, Breathing exercises, Safety, Precautions/Protocol, Functional Mobility, Activity pacing/Energy conservation, Home Management, Balance, Recommendations and Discharge planning and verbalizes understanding. Patient status, treatment, and mobility recommendations discussed with nursing. Assessment: Pt has been seen for occupational therapy evaluation. London Neri presents with the following performance skill deficits and client factors: increased pain, decreased flexibility/ROM, decreased strength and decreased sitting/standing balance. These performance deficits have led to activity limitations and participation restrictions in the following areas of occupation: dressing, bathing, home management and community mobility. Pt presented as pleasant, oriented x4, and willing toparticipate. He completed basic ADL tasks with supervision assist and FWW. Pt was able to answer home safety awareness questioning and stated he would reach out to friends who live nearby if he needed assistance upon discharge. Pt would benefit from further inpatient OT interventions to address performance deficits and maximize participation and independence with occupations of daily living. Equipment needs at discharge: FWW Anticipated Discharge Disposition (OT): home with daily check in, home with home health Other Recommendations: ?? Transfer to recliner chair as appropriate and ambulate as tolerated with supervision assist and FWW ?? Encourage participation in ADL's by providing set up A on tray table and physical assist only asneeded Other Recommendations: No other consults recommended at this time Goals: To be achieved by December 20, 2021. Pt will complete 2 grooming tasks standing at the sink at [facility]. Pt will complete toileting routine at [facility] including transfer to the bathroom, clothing management, and hygiene. Pt will complete UB bathing and dressing in sitting after set up. Pt will complete LB dressing with at [facility] using AE as needed. Pt will complete functional transfers and mobility of a [facility]s using self pacing as needed. Plan: OT: Therapy Frequency (OT): 1-3 times/wk Planned OT interventions: Role of occupational therapy/rehabilitation, Transfers, Assistive device/technique, Adaptive equipment training, ADL, Exercise, Breathing exercises, Positioning, Safety, Precautions/Protocol, Functional Mobility, Activity pacing/Energy conservation, Home Management, Balance, Recommendations, Family training and Discharge planning. Total Minutes, Occupational Therapy: 2016 OT Evaluation Code Rationale: ?? Diagnosis & Pertinent Co-Morbidities affecting Plan of Care: see PMHx ?? Occupational Profile & Client History: Brief Expanded Extensive X ?? Assessment of Occupational Performance: 1-3 performance deficits 3-5 performance deficits X 5 + performance deficits ?? Clinical Decision Making: Low Moderate High X Clinical decision making of low complexity using standardized patient assessment instrument and measurable assessment of functional outcome. Pager: [phone] Margaret Treviño OT 12/13/2021 Occupational Therapy Rehabilitation Department * Jitendra Stevenson, PT - 12/13/2021 12:11 AM EST Physical Therapy Note Treatment Number PT: 2 Patient profile: London Neri is a 71 y.o. Right handed male admitted on 12/12/2021. He presented from OSH as a trauma transfer due to CT at OSH showing possible liver laceration and rib fractures. He had a fall on the ice and landed on his left side. Work up here revealed: -Left rib fractures 5-12 -Left hemothorax?? He also reports history of dizziness and had scheduled outpt appt this week for Pacemaker check with EP. Cardiology has been consulted. He is now being managed on , he was initially in the ED. ?? PMH of COPD, emphysema,??AFib, Atrial and Mitral valve replacement with mechanical valves (1998) onwarfarin,??pacemaker??(2007), hx of recurrent spontaneous PTX (s/p L VATs, partial decortication, blebectomy, talc pleurodesis), ??chronic shoulder pain. Interval History: Seen by SW. Team updated by this PT of concern of home situation and living alone. 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 He has 1 cat at home. He stays on one level. Bathroom Set-up: tub shower Stairs: 6 stairs to enter, pt unclear if he has 1 or 2 rails today. 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 Equipment at home: none, sleeps in a regular bed, does not have a recliner, has a cellphone Fall history: recent fall on the ice. ?? Precautions/Special Considerations: fall risk, recent Left rib fractures, pain. Lines: IV RUE Activity Orders: activity as tolerated Diet: Reg diet. Mobility and Positioning Recommendations: ?? Pt. to utilize rolling walker and contact guard for ambulation and transfers with nursing. ?? Needs contact guard for stairs. ?? Needed extra time with supine <-> sit to the right side of the bed today. ?? Please encourage up to chair for meal times as able. ?? Pt encouraged to ambulate frequently with staff, getting into the bathroom for toileting and walking out in the morel >/= 3 times daily as able. Subjective: I am getting a recliner, just waiting for the email. Pt looking into getting a recliner on Kevin's list. Doctor wants to get the blood straightened out, I am not leaving today. I don't know, regarding if he had 2 rails at home. Objective: Patient seen for physical therapy and demonstrated the following: Pain: 3/10 at rest left side, 8/10 with bed mobility, 4/10 at end of session. Left side Vital Signs: Heart Rate: 59 (66 after walking) BP: (see RN flow sheets) SpO2: 95 % (93 after walking) O2 Device: None (Room air) ?? Pt in recliner when PT arrived, looking at cellphone regarding finding a recliner chair. ?? Able to sit recliner up with supervision. ?? Sit to stand with supervision. ?? Pt ambulated 200 ft with supervision with rolling walker with cues for direction. ?? Stairs: up and down 6 stairs with rail on right going up, and right coming down- pt reported he may have 2 rails at home; step by step; one step sideways practicing if rail on left side with 2 hands on rail going up, and down frontwards with right hand on rail; all stairs with supervision to contact guard today. ?? Pt needed cues for path finding back to the room, he seemed a bit off at times today. Could be related to fatigue. ?? Supine<->sit to/from right side of bed hugging pillow on left side with extra time and contact guard; use walker at bedside like rail; bed needed extra time and struggled some but did it with contact guard. ?? Reviewed deep breathing, AROM, and IS use to 2250ml today. ?? Pt left in bed side recliner reclined, with all needs in reach. Pt able to recline recliner withRUE with supervision and cues. Education: Pt educated on possible need for more support at home and need for a walker and reclinerwith quick release lever on the right likely. Assessment: London Pisano Daron was seen today for physical therapy treatment session for continuation of POC. Pt continues to needs supervision and use of walker for safety with mobility, but is making gains in his mobility and function. He seemed a bit wifty at times today, and needed extra time with bed mobility, but is making progress is his mobility and function. Would still recommend supervisionand use of the walker if he were to return home, but patient will likely be home alone at times. Hereports he does have cellphone services at home, and friends that will check in. Pt continues to bemedically managed. Will continue PT to safely progress his mobility and function while he remains in- house. Pt is working on getting a recliner for at home. Pt will benefit from ongoing therapeutic interventions to achieve therapy goals. Discharge Recommendations: Based on the current findings, Anticipated Discharge Disposition (PT): home with home health, home with supervision when medically ready for hospital discharge. Consult Recommendations: No other consults recommended at this time. Equipment needs: Anticipated Equipment Needs at Discharge (PT): walker, front wheeled (possibly lifeline and workingon getting a recliner) Physical Therapy Goals: To be achieved by 12/20/21:-The BELOW GOALS remain ONGOING- ?? 1. Pt. to demonstrate knowledge of safety limitations and precautions and will appropriately request assistance for functional activities and to mobilize. 2. Pt. to demonstrate understanding of AROM and breathing exercises. 3. Pt. to perform bed mobility with modified independence and using walker at bed side like a rail as needed. . 4. Pt. to perform Sit<->stand and Stand Pivot transfers with modified independence using a front wheeled walker. 5. Pt. to ambulate 250 feet with modified independence using a front wheeled walker. 6. Pt. to ambulate up/down 6 step/stairs using one rail with supervision. 7. Family or caregiver to demonstrate understanding of therapeutic interventions to support the care of the patient. Plan: Therapy Frequency (PT): 2-4 times/wk for as outlined in initial evaluation. Time IN / OUT: 1145 to 1211 Total Minutes, Physical Therapy: 26 ; Billing Code: functional mobility JITENDRA STEVENSON, PT Pager:[phone] Physical Therapy Inpatient Rehabilitation Department * Jitendra Stevenson, PT - 12/12/2021 5:17 PM EST Physical Therapy Evaluation Patient profile: London Neri is a 71 y.o. Right handed male admitted on 12/12/2021. He presented from OSH as a trauma transfer due to CT at OSH showing possible liver laceration and rib fractures. He had a fall on the ice and landed on his left side. Work up here revealed: -Left rib fractures 5-12 -Left hemothorax He also reports history of dizziness and had scheduled outpt appt this week for Pacemaker check with EP. Cardiology has been consulted. He is now being managed on , he was initially in the ED. PMH of COPD, emphysema, AFib, Atrial and Mitral valve replacement with mechanical valves (1998) on warfarin, pacemaker (2007), hx of recurrent spontaneous PTX (s/p L VATs, partial decortication, blebectomy, talc pleurodesis), chronic shoulder pain. Patient with the following active problems: Past Medical History: Diagnosis Date ??? C. difficile colitis ??? COPD (chronic obstructive pulmonary disease) ??? Emphysema of lung ??? Hemorrhoid ??? Pacemaker - dual lead Medtronic 07/29/2020 ??? Pneumothorax on left Active Non-Hospital Problems Diagnosis ??? AV block, complete ??? Lung blebs ??? Other air leak ??? Postoperative hematoma ??? Tension pneumothorax, spontaneous ??? Typical atrial flutter ??? Recurrent spontaneous pneumothorax ??? Near syncope ??? Pacemaker - dual lead Medtronic ??? Aortic insufficiency ??? Current use of prison anticoagulation ??? Heart block ??? Chronic bullous emphysema ??? Clostridium difficile colitis ??? Encounter for screening colonoscopy ??? Heart valve replaced Past Surgical History: Procedure Laterality Date ??? AORTIC VALVE REPLACEMENT 1998 ??? CARDIAC VALVE REPLACEMENT 1983 Aortic Valve ??? CARDIAC VALVE REPLACEMENT 1998 Mechanical Aortic and Mitral ??? HERNIA REPAIR ??? MITRAL VALVE REPLACEMENT 1998 ??? PRO BRONCHOSCOPY, DIAGNOSTIC Left 03/06/2021 BRONCHOSCOPY, DIAGNOSTIC (WRVU 2.78) performed by Navin Khalil MD at [facility] MA[facility] OR ??? PRO COLONOSCOPY, REMV LESN, SNARE N/A 01/26/2017 COLONOSCOPY, POLYPECTOMY, REMOVAL LESION BY SNARE (WRVU 4.67) performed by Lena Clark MD at [facility] ENDOSCOPY ??? PRO THORACOSCOPY SURG W/PLEURODESIS Left 03/06/2021 @THORACOSCOPY, SURG; W PLEURODESIS (WRVU 10.83) performed by Navin Khalil MD at [facility] MA[facility] OR ??? PRO THORACOSCOPY W RESECTION-PLICATION EMPHYSEMA LUNG UNILATERAL Left 03/06/2021 @THORACOSCOPY, SURG; W/RESC-PLICATION EMPHYSEMATOUS LUNG, UNILATERAL (WRVU 27) performed by Navin Khalil MD at [facility] MA[facility] OR ??? PRO THORACOSCOPY W/PARTIAL PULMONARY DECORTICATION Left 03/06/2021 @THORACOSCOPY, SURG; W PART. DECORTICATION (WRVU 18.78) performed by Navin Khalil MD at [facility] MA[facility] OR ??? PRO THORACOSCOPY W/PARTIAL PULMONARY DECORTICATION Left 03/09/2021 @THORACOSCOPY, SURG; W PART. DECORTICATION (WRVU 18.78) performed by Navin Khalil MD at [facility] OR ??? PRO THORACOTOMY, CTRL TRAUMA BLEED Left 03/09/2021 @THORACOTOMY WEXPL,CONTROL BLDNG (WRVU 25.28) performed by Navin Khalil MD at [facility] MA[facility] OR Social History: Home set-up: Lives alone in [place], [place]; he has a tenant upstairs, and his barber in [facility]. He has 1 cat at home. He stays on one level. 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 Equipment at home: none, sleeps in a regular bed, does not have a recliner, has a cellphone Fall history: recent fall on the ice. Precautions/Special Considerations: fall risk, recent Left rib fractures, pain. Lines: IV RUE Activity Orders: activity as tolerated Diet: Reg diet. Mobility and Positioning Recommendations: ?? Pt. to utilize rolling walker and contact guard for ambulation and transfers with nursing. ?? Needs contact guard for stairs. ?? Needed mod assist with supine to sit to the right side of the bed today. ?? Please encourage up to chair for meal times as able. ?? Pt encouraged to ambulate frequently with staff, getting into the bathroom for toileting and walking out in the morel >/= 3 times daily as able. Subjective: ???I think bed will be the problem,?? regarding if he had someone that could stay withhim at home. I want a walker at home for at least the 1st week. Objective: Pt seen for evaluation today. Pain: 5/10 left hip and left arm pain. Vital Signs: Heart Rate: 60 (66 sitting) BP: (per RN prior to PT 110/50, sitting 107/46, reports occ Vertigo recently) SpO2: 95 % O2 Device: None (Room air) Mental Status: alert, oriented to person, place, and time; initially sleepy- but perked up during session, reports he did not sleep well last night. Vision: glasses multimedia developer Skin: IV RUE. Musculoskeletal: ROM: AROM of BUEs and BLEs WFLs, some pain with left shoulder ROM. Strength: not tested, but LEs appear functional. Sensation: intact to light touch. Bed Mobility: Supine to Sit: to right side of bed via rolling with mod assist for upper body and cues. Sit to Supine: not done, left reclined in recliner with all needs in reach. Transfers: Sit to Stand: with contact guard and cues. Stand to Sit: with contact guard and cues. Bed to Chair: with walker and contact guard. Gait: Distance: 300 ft Device used: rolling walker Level of assist: With contact guard to supervision Gait mechanics: step to gait progressed to step through gait as he walked. Stairs: up and down 3 stairs; up started with rail on left to simulate home, had pain, so went up sideways leading with right foot, one step at a time with contact guard; Down sideways 1 step, and then frontwards with rail on right going down with contact guard, one step at a time. Balance: Sitting Static: steady Sitting Dynamic: good, able to lesa socks in sitting with supervision Standing Static: steady with walker. Standing Dynamic / Gait: Contact guard with walker and contact guard with stairs. Education: patient has been educated on Bed mobility, Transfers, Assistive device/technique, Stairs, Exercise, Breathing exercises, Positioning, Safety , Precautions/protocol, Equipment use, Gait , Activity pacing/Energy conservation, Home program, Role of therapy, Balance, Discharge planning and recommendation for 24/7 support at home initially and home services or to stay with someone for a fewdays and verbalizes understanding. Patient status, treatment, and mobility recommendations discussed with nursing. Ther-ex: AROM reviewed, deep breathing reviewed, and IS uses with volume of 750- 2250ml improved technique with cues and education Assessment: London Neri was seen today for physical therapy evaluation. Patient presenting with initially some sleepiness and fatigue due to lack of sleep overnight, but perked up during session; he also had some left side pain and impaired mobility and function. He needed mod assist with bed mobility for supine to sit via rolling to the right, and contact guard with stairs; and some increasedpain with activity. He lives alone, and appears to have some supports available, but that support may be limited. He desires to return home when medically stable. At this time would recommend home services and 24/ supervision to safely return home. Will continue PT to safely progress patient's mobility and function while he remains in-house working toward a safe d/c plan. Discharge Recommendations: Based on the current findings, Anticipated Discharge Disposition (PT): home with home health, home with supervision (recommend 24/7 supervision at home and home servicese) when medically ready for hospital discharge. Consult Recommendations: OT consult is in place Equipment needs: Anticipated Equipment Needs at Discharge (PT): walker, front wheeled (possibly lifeline) Goals: To be achieved by 12/20/21: 1. Pt. to demonstrate knowledge of safety limitations and precautions and will appropriately request assistance for functional activities and to mobilize. 2. Pt. to demonstrate understanding of AROM and breathing exercises. 3. Pt. to perform bed mobility with modified independence and using walker at bed side like a rail as needed. . 4. Pt. to perform Sit<->stand and Stand Pivot transfers with modified independence using a front wheeled walker. 5. Pt. to ambulate 250 feet with modified independence using a front wheeled walker. 6. Pt. to ambulate up/down 6 step/stairs using one rail with supervision. 7. Family or caregiver to demonstrate understanding of therapeutic interventions to support the care of the patient. Plan: Therapy Frequency (PT): 2-4 times/wk for therapy including balance training, bed mobility training, gait training, home exercise program, motor coordination training, neuromuscular re-education, patient/family education, postural re-education, range of motion, stair training, strengthening, st retching, transfer training and d/c planning, functional mobility training, selfcare and home management training. 2017 PT Evaluation Code Rationale: ?? Diagnosis & Pertinent Co-Morbidities, personal factors, and present illness affecting Plan of Care: (see above); Additional personal factors or co- morbidities that impact plan: ?? Total # of Factors: 0 1-2 3+ x ?? Examination of body system impairments, functional limitations and behaviors, and/or participation restrictions. Addressing 1-2 elements Addressing 3 + elements Addressing 4 + elements x ?? Clinical presentation: See assessment above. Stable/Uncomplicated Evolving/Fluctuating Symptoms Unstable/Unpredictable x ?? Clinical decision making of high complexity based on pt's functional performance as outlined in this evaluation. Time IN / OUT: 1625 to 1717 Total Minutes, Physical Therapy: 52 Billing Code: tushar STEVENSON, PT Pager: [phone] Physical Therapy Inpatient Rehabilitation Department * Malorie Donohue MD - 12/12/2021 12:43 PM EST TRAUMA & ACUTE SURGICAL CARE SERVICE TERTIARY SURVEY ID/MECHANISM OF INJURY: London Neri is a 71 y.o. Male admitted on 12/12/2021 following slip and fall on ice for the management of Pulmonary injuries (Please see below box for a complete summary of injuries) HISTORY OF PRESENT ILLNESS: London Neri is a 71 y.o. male presents to [facility] s/p slip and fall on ice. Description of events leading up to injury includes: patient was outside and slipped on some ice resulting in a mechanical fall. Landed on left side. No LOC or head strike. Currently complaining of left rib pain, otherwise comfortable. Transferred from OSH where he received vit K for coumadin with INR 3.6. ?? Primary survey revealed: intact airway, equal breath sounds/respirations, present 2+ peripheral pulses with stable vital signs and no signs of bleeding, GCS 15 (6 - Follows simple motor commands, 5 -Alert and oriented, 4 - Opens eyes on own), and complete exposure. ?? Secondary survey Left 5-12 rib fractures PMHx: Past Medical History: Diagnosis Date ??? C. difficile colitis ??? COPD (chronic obstructive pulmonary disease) ??? Emphysema of lung ??? Hemorrhoid ??? Pacemaker - dual lead Medtronic 07/29/2020 ??? Pneumothorax on left PSHx: Past Surgical History: Procedure Laterality Date ??? AORTIC VALVE REPLACEMENT 1998 ??? CARDIAC VALVE REPLACEMENT 1983 Aortic Valve ??? CARDIAC VALVE REPLACEMENT 1998 Mechanical Aortic and Mitral ??? HERNIA REPAIR ??? MITRAL VALVE REPLACEMENT 1998 ??? PRO BRONCHOSCOPY, DIAGNOSTIC Left 03/06/2021 BRONCHOSCOPY, DIAGNOSTIC (WRVU 2.78) performed by Navin Khalil MD at [facility] MAIN OR ??? PRO COLONOSCOPY, REMV LESN, SNARE N/A 01/26/2017 COLONOSCOPY, POLYPECTOMY, REMOVAL LESION BY SNARE (WRVU 4.67) performed by Lena Clark MD at [facility] ENDOSCOPY ??? PRO THORACOSCOPY SURG W/PLEURODESIS Left 03/06/2021 @THORACOSCOPY, SURG; W PLEURODESIS (WRVU 10.83) performed by Navin Khalil MD at [facility] MAIN OR ??? PRO THORACOSCOPY W RESECTION-PLICATION EMPHYSEMA LUNG UNILATERAL Left 03/06/2021 @THORACOSCOPY, SURG; W/RESC-PLICATION EMPHYSEMATOUS LUNG, UNILATERAL (WRVU 27) performed by Navin Khalil MD at [facility] MAIN OR ??? PRO THORACOSCOPY W/PARTIAL PULMONARY DECORTICATION Left 03/06/2021 @THORACOSCOPY, SURG; W PART. DECORTICATION (WRVU 18.78) performed by Navin Khalil MD at [facility] MAIN OR ??? PRO THORACOSCOPY W/PARTIAL PULMONARY DECORTICATION Left 03/09/2021 @THORACOSCOPY, SURG; W PART. DECORTICATION (WRVU 18.78) performed by Navin Khalil MD at [facility] MAIN OR ??? PRO THORACOTOMY, CTRL TRAUMA BLEED Left 03/09/2021 @THORACOTOMY WEXPL,CONTROL BLDNG (WRVU 25.28) performed by Navin Khalil MD at [facility] MAIN OR HOME MEDICATIONS: Medications Prior to Admission Medication Sig Dispense Refill Last Dose ??? tamsulosin (Flomax) 0.4 mg Capsule Take 1 capsule by mouth daily. 90 tablet 5 ??? betamethasone dipropionate (DIPROLENE) 0.05 % Cream APPLY SMALL AMOUNT EXTERNALLY TO RASH TWICEDAILY FOR NO MORE THAN 2 WEEKS ??? aspirin 81 mg Tablet, Delayed Release (E.C.) TAKE ONE TABLET BY MOUTH EVERY DAY 3 ??? warfarin (COUMADIN) 10 mg tablet CURRENT MEDICATIONS: ??? sodium chloride 0.9 % (flush) (BD PosiFlush Normal Saline 0.9) flush 5 mL ??? sodium chloride 0.9 % (flush) (BD PosiFlush Normal Saline 0.9) flush 5-20 mL ??? lidocaine (Xylocaine) 1% (10 mg/mL) injection 3 mg ??? famotidine (Pepcid) tablet 20 mg OR famotidine (Pepcid) (10 mg/mL) injection 20 mg ??? naloxone (Narcan) (0.4 mg/mL) injection 0.2 mg ??? oxyCODONE (Roxicodone) tablet 5-10 mg ??? acetaminophen (Tylenol) tablet 1,000 mg ??? ketorolac (Toradol) (30 mg/mL) injection 15 mg ??? lidocaine (Lidoderm) 5% patch 2 patch AND lidocaine (Lidoderm) topical patch REMOVAL ??? tamsulosin (Flomax) capsule 0.4 mg sodium chloride 0.9 % (flush), lidocaine, naloxone, oxyCODONE ALLERGIES: No Known Allergies FAMILY HISTORY: is non-contributory SOCIAL HISTORY: Alcohol: very rarely Tobacco: not a current smoker, quit approximately 40 yrs ago Drug: no history of illicit drug use Employment/Pertinent Social History: originally from [place], currently living in [place], [place], liveswith but she is currently down [facility], has friends who help out if needed, is independent, exercises daily by walking a few miles a day , has a PCP in [place], [place] Dr Vang REVIEW OF SYSTEMS: complete 10 system ROS performed with pertinent findings below. Pertinent items are noted in HPI. PHYSICAL EXAM: VITALS: Last value Range last 24 hrs Temperature Temp: 36.5 ??C (97.7 ??F) Temp: [36.5 ??C (97.7 ??F)-37.1 ??C (98.8 ??F)] Heart Rate Heart Rate: 60 Heart Rate: [60-77] Blood Pressure BP: 102/47 (right arm) BP: (98-139)/(47-75) Respiratory Rate Resp: 14 Resp: [14-24] SpO2 SpO2: 93 % SpO2: [93 %-99 %] GENERAL: Alert, fully awake and in no apparent distress, elderly appearing male patient sitting up in bed, appropriately answering questions, conversant, appears comfortable, wearing glasses HEAD: Normocephalic, atraumatic FACE: Pupils/eyes: Equal round and reactive to light, approx 4mm bilat, no orbital or periorbital ecchymosis or edema. No scleral icterus, subconjunctival hemorrhage, no injection. EOMs intact bilat Ears: Clear to visualization, no otorrhea, symmetrical, no blood/drainage in external auditory canals Midface: No tenderness, no edema no contusions, no lacerations or abrasions over the midface. No rhinorrhea Oropharynx: Nonbloody, moist mucous membranes noted, no lacerations, no malocclusions, no new chipped or missing teeth. NECK: Supple, trachea midline, no masses, no edema, no contusions or abrasions, no obvious JVD. No bruits. LUNGS: Equal, clear breath sounds bilaterally without crepitus, no obvious deformities of the chest, no paroxysmal movements, no use of accessory muscles for breathing, left chest tender on palpation CARDIAC: Regular rate and rhythm without murmur or extra heart sounds, S1-S2 ABDOMEN/GI: Soft, nontender, nondistended, no abrasions or contusions. + Bowel sounds no distention PELVIS: Stable to iliac and anterior/posterior manipulation. EXT: Normal and symmetric movement, normal range of motion, no edema, distal CMS intact ??4. Capillary refill less than 3 seconds and pedal/radial pulses intact. SKIN: No lacerations, abrasions or contusions on complete anterior and posterior skin exam. NEURO: Mental Status: Awake and alert to person place and time Cranial Nerves: CN II-XII intact Motor: No obvious tics or tremors. Normal 5/5 strength in all tested muscle groups. Sensory: Intact to touch SPINE: No step-off, tenderness midline or paraspinal, edema or eccymosis over cervical,thoracic or lumbar spines GCS: 15 (6 - Follows simple motor commands, 5 - Alert and oriented, 4 - Opens eyes on own) LABORATORY: Recent Labs 12/12/21 0125 WBC 8.9 HGB 13.2* HCT 39.0* PLATELET 183 Recent Labs 12/12/21 0125 NA 137 K 4.2 CL 101 CO2 25 BUN 17 CREATININE 0.94 GLUCOSE 96 CALCIUM 9.2 RADIOLOGY: CT Abdomen & Pelvis w Contrast Result Date: 12/12/2021 EXAMINATION: CT ABDOMEN AND PELVIS W CONTRAST CLINICAL HISTORY: Trauma transfer, rib fractures TECHNIQUE: Helical CT of the abdomen and pelvis was performed following the intravenous administration of contrast. Administered 93.0 ml of OMNIPAQUE 350.00 mg/ml. COMPARISON: Correlation made with same day chest and L- spine CT, December 11, 2021 FINDINGS: Lower chest: Emphysematous changes and dependent atelectasis. Small hiatal hernia. Liver: Mild focal fat along the falciform ligament. Subcentimeter hypoattenuating lesion in left hepatic lobe is too small to further characterize. Bile ducts: Not dilated. Gallbladder: No calcified gallstones. Pancreas: Normal. Spleen: Normal. Small splenule noted at the tip of the spleen. Adrenals: Normal. Kidneys: Symmetric enhancement. No hydronephrosis. Vasculature: Extensive atherosclerotic calcification with ulcerated plaque in the infrarenal abdominal aorta. Lymph Nodes: No enlarged lymph nodes. Bowel: No abnormal bowel dilation, wall thickening or surrounding inflammatory change. Colonic diverticular disease without diverticulitis. Large fecal load throughout the colon. Peritoneum and mesentery: No free air. Trace fluid in the left pelvis, a nonspecific finding. Abdominal wall: Small fat- containing umbilical hernia. Stable changes of prior left inguinal hernia repair. Urinary Bladder: Moderately distended with contrast, normal. Reproductive organs: Prostatomegaly at 6.2 cm with focal dilation of the prostatic urethra, likely a TURP defect.Osseous structures: No acute pelvic or proximal femur fractures. Healed right-sided rib fractures. Partially visualized left posterior 10th, 11th, and 12th rib fractures, and characterized on dedicate d chest CT. No acute traumatic injury to the abdomen or pelvis. I have personally reviewed the image(s) and theresident's interpretation and agree with the findings, Nehal Valdez MD at 12/12/2021 5:36 AM Thank you for letting us participate in the care of this patient. If you are a health care provider and have any questions regarding this report, please contact the number below. For patients who have questions please contact the health managed care manager that requested your imaging first. Chest PA & Lateral (Generic) Result Date: 12/12/2021 EXAMINATION: XR CHEST PA AND LATERAL (GENERIC) CLINICAL HISTORY: Rib fractures, assess for intervalchange/ptx/etc TECHNIQUE: PA and lateral views of the chest COMPARISON: 12/12/2021, earlier today FINDINGS: No pneumothorax. Multiple acute LEFT rib fractures as previously noted with displacement of the lateral eighth rib. Grossly stable LEFT peripheral opacity, corresponding to a chest wall hematoma. No significant change since the previous study. No pneumothorax Thank you for letting us participate in the care of this patient. If you are a health care provider and have any questions regarding this report, please contact the number below. For patients who have questions please contact the health managed care manager that requested your imaging first. Electronically signed by: Matti Palacio MD, [facility] ([phone]), at 12/12/2021 8:[address] Head & Cervical Spine wo Contrast (Generic) Result Date: 12/12/2021 EXAMINATION: CT HEAD AND CERVICAL SPINE WO CONTRAST (GENERIC) CLINICAL HISTORY: Trauma transfer, rib fractures TECHNIQUE: CT head and cervical spine performed without intravenous contrast administration. COMPARISON: CT head, 03/08/2021 CT chest, October 12, 2021 FINDINGS: Head: No acute intracranial hemorrhage or extra-axial collection. Barclay-white differentiation is preserved. Diffuse cerebral volume loss with prominence of the cerebral sulci and dilation of the ventricles is likely age-relatedand is unchanged. No mass, mass effect or midline shift. Basal cisterns are patent. Dense calcification of the bilateral intracranial ICAs is noted. No calvarial fracture or significant extracalvarial contusion or hematoma. The paranasal sinuses and mastoid air cells are clear. Cervical spine: The craniocervical junction is intact. Normal cervical alignment. Vertebral body heights are normal. No acute fracture, subluxation or dislocation. Mild disc space height loss and vacuum disc phenomenon at C6-7. Bilateral facet arthropathy throughout the cervical spine. Bulky bilateral carotid bulb calcifications. No paravertebral soft tissue swelling or hematoma. Advanced centrilobular emphysema withunchanged large biapical bulla. 1. No acute intracranial hemorrhage or calvarial fracture. 2. No acute cervical spine fracture. I have personally reviewed the image(s) and the resident's interpretation and agree with the findings, Nehal Valdez MD at 12/12/2021 5:11 AM Thank you for letting us participate in the care of this patient. If you are a health care provider and have any questions regarding this report, please contact the number below. For patients who have questions please contact the health managed care manager that requested your imaging first. Request For 2nd Read CT Chest Result Date: 12/12/2021 EXAMINATION: REQUEST FOR 2ND READ CT CHEST CLINICAL HISTORY: Rib fractures after trauma, assess foradditional injury; Sending Institution [facility]; Date of exam [id number]; I believe a reinterpretation ofthis exam may alter care of Patient. Yes TECHNIQUE: 3.75 mm thick axial contiguous sections were obtained through the chest via helical acquisition after the intravenous administration of contrast. Thin-section reconstructions as well as coronal and sagittal reformatted images were generated. COMPARISON: Chest x-ray from 12/11/2021 FINDINGS: Pulmonary parenchyma: Severe bilateral centrilobular emphysematous disease. 2 subcentimeter pleural-based lesion superior segment LEFT lower lobe. Broad-based LEFT lateral parietal density, compatible with a hematoma adjacent to rib fractures. No areas of airspace consolidation. Airways: No endobronchial lesions Pleura: No pleural effusions. Possible loculated LEFT lateral pneumothorax. Lymph nodes: No significant findings. Heart, pericardium, and great vessels: Post aortic and mitral valve replacement. No pericardial effusion Other mediastinal structures: No significant findings. Lower neck: No significant findings. Upper abdomen: Indeterminate ill-defined heterogeneous enhancement of a portion of the RIGHT hepatic lobe. Body wall soft tissues: No significant findings. Skeletal structures: Following LEFT rib fractures: Nondisplaced lateral fifth rib and minimally displaced proximal LEFT rib fracture;, LEFT sixth rib, comminuted laterally minimally displaced medially at costochondral junction; comminuted LEFT lateral seventh rib fracture and minimally displaced medial LEFT seventh rib fracture at costochondral junction; proximally fractured eighth rib with comminuted lateral eighth rib fractures; proximal ninth rib fracture; Proximal 10th rib fracture and lateral 10th rib fracture; proximal 11th rib fracture; distal 12th rib fracture. 1. Fractures through LEFT fifth and 12th ribs, as described above. 2. Hemopneumothorax adjacent to rib fractures and LEFT mid lateral lung. 3. No pneumothorax. 4. Superior segment LEFT lower lobe 2.0cm nodule. New compared to CT from 10/12/2021; recommend close interval follow-up for assessment of stability. 5. Severe bilateral centrilobular emphysematous disease. Thank you for letting us participate in the care of this patient. If you are a health care provider and have any questions regarding this report, please contact the number below. For patients who have questions please contact the health managed care manager that requested your imaging first. Electronically signed by: Matti Palacio MD, [facility] ([phone]), at 12/12/2021 9:25 AM Film Library- Storage Only CT Chest Result Date: 12/11/2021 This exam is auto-finalizing. It's purpose is for storage only. Film Library- Storage Only DX Chest Result Date: 12/11/2021 This exam is auto-finalizing. It's purpose is for storage only. XR Chest One View Result Date: 12/12/2021 EXAMINATION: XR CHEST ONE VIEW CLINICAL HISTORY: rib fractures TECHNIQUE: 1 view of the chest COMPARISON: CT, 2003 hours, 12/11/2021 Chest radiograph, 1705 hours, 01/08/2022 CT chest, 10/12/2021 FINDINGS: Chronic changes of emphysema and interstitial lung disease are again noted. A confluent opacity at the left lateral hemithorax corresponds to chest wall hematoma in the setting of numerous left-sided rib fractures, noted on recent CT. Numerous acute left rib fractures, characterized on CT, with the lateral left eighth rib being mildly displaced and the others are minimally displaced. No pneumothorax. Healed right rib fracture deformities are again noted. Stable cardiac silhouette with aorticand mitral valve prosthesis. A left dual-lead pacemaker has leads in unchanged position. Intact sternotomy wires. 1. Multiple acute left rib fractures with mild displacement of the lateral 8th rib as on prior CT. No pneumothorax. 2. Left lateral chest peripheral lobular opacity, corresponds to reflects a chest wall hematoma along the known left rib fractures. I have personally reviewed the image(s) and the resident's interpretation and agree with the findings, Nehal Valdez MD at 12/12/2021 2:20 AM Thank you for letting us participate in the care of this patient. If you are a health care provider and have any questions regarding this report, please contact the number below. For patients who have questions please contact the health managed care manager that requested your imaging first. Electronically signedby: Nehal Valdez MD, [facility] ([phone]), at 12/12/2021 2:[address] Lumbar Spine Reconstruction Result Date: 12/12/2021 EXAMINATION: CT LUMBAR SPINE RECONSTRUCTION CLINICAL HISTORY: Trauma transfer, rib fractures TECHNIQUE: CT reconstructions of the lumbar spine COMPARISON: Chest CT, 2002, December 11, 2021 FINDINGS: Normal alignment of the lumbar spine. Vertebral body heights are preserved. No acute fracture,subluxation or dislocation. Mid to lower lumbar spine bilateral facet arthropathies noted, most severe at L4-L5 and L5-S1 levels. The sacrum is intact. Partially visualized left posterior 12th rib fracture, characterized on dedicated chest CT. No acute fracture or traumatic malalignment of the lumbar spine. I have personally reviewed the image(s) and the resident's interpretation and agree with the findings, Nehal Valdez MD at 12/12/2021 5:29 AM Thank you for letting us participate in the care of this patient. If you are a health care provider and have any questions regarding this report, please contact the number below. For patients who have questions please contact the health managed care manager that requested your imaging first. SSMENT/SUMMARY OF INJURIES: 71 y.o. male with PMH of COPD, emphysema, AFib, Atrial and Mitral valve replacement with mechanicalvalves (1998) on warfarin, pacemaker (2007), hx of recurrent spontaneous PTX (s/p L VATs, partial decortication, blebectomy, talc pleurodesis ), chronic shoulder pain, here s/p slip and fall on ice, - LOC, no head strike, admitted on 12/12. Transferred fro OSH where he received vitamin K for coumadin for INR 3.6, repeat INR 1.6 Traumatic injuries included in chart. Holding coumadin and holding off on starting heparin drip at this time due to hemothorax on second reads. Repeat CXR 12/13 in the morning and potentially starting heparin drip and home dose of coumadin 10mg. Cardiology consulted for assistance. Pt also reports that he has been having dizziness intermittently and has a scheduled out patient EPappointment here on 12/13. EP paged today with FYI to see pt in his room. Radiology contacted regarding contradictory CT chest 2nd read findings, ? pneumothorax. Injuries identified on Tertiary Survey: 1. 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 Admission UA: negative Tox Screen: presumed + oxycodone and fentanyl Resolved in hospital issues: TBD Chronic health conditions: AFib, pacemaker, AVR, MVR: holding home coumadin 10mg daily until follow up CXR 12/13 for hemothorax, following INR Pt reported hx frequent nose bleeds on coumadin: continue to monitor BPH: continue home flomax Fluids/Electrolytes: Tolerating PO Diet: Regular diet Activity status: Activity As Tolerated Spine status: No spinal injuries noted Pulmonary toilet: Encourage frequent mobilization, IS use, titrate O2 >90 DVT PPX: SCDs, Held due to hemothorax, pending CXR 12/13 GI PPX: Not indicated, tolerating diet Lines/Tubes/Drains: PIV Consults (Please see cardiology consultant notes): PT/OT, cardiology Dispo: TBD,CRC working on dispo plan Status: Floor Incidental Findings: Superior segment LEFT lower lobe 2.0 cm nodule. New compared to CT from 10/12/2021; recommend close interval follow-up for assessment of stability. [x] Incidental Findings Form Completed, Tea, 12/12/2021 [place] 12/12/2021 Trauma pager [phone] Attending Addendum I have seen and examined the patient, I have reviewed the vitals, labs and pertinent imaging. I have discussed the documentation above and agree, with the following comments: Pain well controlled, had just gotten back from a walk at the time of my visit. Repeat CXR in AM given hematoma noted - will reassess prior to starting back on anticoagulation (cardiology engaged forrecommendations regarding restart given AVR/MVR). Malorie Donohue MD [phone] documented in this encounter H&P Notes * Carlos Manuel Dodson MD - 12/12/2021 4:48 AM EST Trauma Surgery Admission History & Physical Patient Name: London Neri Level of Activation: Alert MR#: [id number] [ ] Scene Call or [x] Hospital Transfer : [id number] CC/MECHANISM OF INJURY: 71 y.o. Male s/p fall, on 12/12/21 HISTORY OF PRESENT ILLNESS: London Neri is a 71 y.o. male presents to [facility] s/p slip and fall on ice. Description of events leading up to injury includes: patient was outside and slipped on some ice resulting in a mechanical fall. Landed on left side. No LOC or head strike. Currently complaining of left rib pain, otherwise comfortable. Transferred from OSH where he received vit K for coumadin with INR 3.6. Primary survey revealed: intact airway, equal breath sounds/respirations, present 2+ peripheral pulses with stable vital signs and no signs of bleeding, GCS 15 (6 - Follows simple motor commands, 5 -Alert and oriented, 4 - Opens eyes on own), and complete exposure. Secondary survey is as follows. PAST MEDICAL AND SURGICAL HISTORY: Past Medical History: Diagnosis Date ??? C. difficile colitis ??? COPD (chronic obstructive pulmonary disease) ??? Emphysema of lung ??? Hemorrhoid ??? Pacemaker - dual lead Medtronic 07/29/2020 ??? Pneumothorax on left Past Surgical History: Procedure Laterality Date ??? AORTIC VALVE REPLACEMENT 1998 ??? CARDIAC VALVE REPLACEMENT 1983 Aortic Valve ??? CARDIAC VALVE REPLACEMENT 1998 Mechanical Aortic and Mitral ??? HERNIA REPAIR ??? MITRAL VALVE REPLACEMENT 1998 ??? PRO BRONCHOSCOPY, DIAGNOSTIC Left 03/06/2021 BRONCHOSCOPY, DIAGNOSTIC (WRVU 2.78) performed by Navin Khalil MD at [facility] MAIN OR ??? PRO COLONOSCOPY, REMV LESN, SNARE N/A 01/26/2017 COLONOSCOPY, POLYPECTOMY, REMOVAL LESION BY SNARE (WRVU 4.67) performed by Lena Clark MD at [facility] ENDOSCOPY ??? PRO THORACOSCOPY SURG W/PLEURODESIS Left 03/06/2021 @THORACOSCOPY, SURG; W PLEURODESIS (WRVU 10.83) performed by Navin Khalil MD at [facility] MAIN OR ??? PRO THORACOSCOPY W RESECTION-PLICATION EMPHYSEMA LUNG UNILATERAL Left 03/06/2021 @THORACOSCOPY, SURG; W/RESC-PLICATION EMPHYSEMATOUS LUNG, UNILATERAL (WRVU 27) performed by Navin Khalil MD at [facility] MAIN OR ??? PRO THORACOSCOPY W/PARTIAL PULMONARY DECORTICATION Left 03/06/2021 @THORACOSCOPY, SURG; W PART. DECORTICATION (WRVU 18.78) performed by Navin Khalil MD at [facility] MAIN OR ??? PRO THORACOSCOPY W/PARTIAL PULMONARY DECORTICATION Left 03/09/2021 @THORACOSCOPY, SURG; W PART. DECORTICATION (WRVU 18.78) performed by Navin Khalil MD at [facility] MAIN OR ??? 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 Pertinent items are noted in HPI. PHYSICAL EXAM: VITALS: Patient Vitals for the past 24 hrs: Temp Heart Rate From SP02 Pulse Resp BP SpO2 O2 Flow Rate (L/min) O2 Device 02/20/22 0114 -- -- -- -- 130/73 -- -- -- 12/12/21 0115 37.1 ??C (98.8 ??F) -- 66 20 129/66 93 % -- RA 12/12/21 0130 -- -- 65 20 118/67 97 % 2 L/min NC 12/12/21 0145 -- 60 bpm -- -- 122/59 98 % -- -- 12/12/21 0200 -- -- 60 20 114/62 99 % -- -- 12/12/21 0215 -- -- 60 16 121/58 99 % -- -- 12/12/21 0230 -- -- 60 16 115/60 99 % -- -- 12/12/21 0245 -- -- 60 17 115/58 98 % -- -- 12/12/21 0300 -- -- 60 24 123/56 99 % -- -- 12/12/21 0315 -- -- 60 20 122/57 98 % -- -- GENERAL: alert, awake and no apparent distress HEAD: Normocephalic, without obvious abnormality, atraumatic FACE: Pupils: equal, round, reactive to light, no periorbital ecchymoses; Tympanic Membranes: clear to visualization except right obscured by wax; Midface: no tenderness, no swelling, no contusions, no lacerations and no abrasions over entire face Oropharynx: nonbloody, moist mucous membranes, no lacerations, no malocclusion and no chipped or missing teeth NECK: no tenderness to palpation, trachea midline, no masses, no swelling, no contusions and no abrasions LUNG: equal, clear breath sounds bilaterally and no crepitus CARDIAC: Regular rate and rhythm or without murmur or extra heart sounds ABDOMEN/GI: soft, non-tender, non-distended, no abrasions and no contusions PELVIS: stable to AP and/or lateral compression RECTAL: Sphincter tone exam deferred with no gross blood; Voluntary anal contraction normal EXTREMITIES: normal and symmetric movement, normal range of motion, no joint swelling SPINE: no deformity, no stepoffs, no tenderness to palpation and no abrasions over cervical spine, thoracic spine and/or lumbar spine SKIN: no lacerations, abrasions or contusions on complete skin exam NEURO: Mental Status: awake and alert, oriented to time, date, person, place Cranial Nerves: CN II - XII intact Motor: normal 5/5 strength in all tested muscle groups Sensory: no sensory deficits noted FAST: [x] Attending staff present [ ] Attending staff NOT present Findings: Right Upper Quadrant [x] No fluid [ ] Fluid Left Upper Quadrant [x] No fluid [ ] Fluid Pericardium [x] No fluid [ ] Fluid Pelvis [x] No fluid [ ] Fluid Right Lung [x] No pneumothorax [ ] Pneumothorax Left Lung [x] No pneumothorax [ ] Pneumothorax LABORATORY: Recent Results (from the past 24 hour(s)) ABO/Rh Typing Result Value Ref Range ABORh Type A Neg Antibody screen Result Value Ref Range Ab Screen Interp Negative Expires at 2359 on: 12/15/2021 ABORH Recheck Status Result Value Ref Range ABORH Type Recheck Completed Type and Screen Validity Result Value Ref Range T&S only valid at [facility] Basic Metabolic Panel (non-fasting) Result Value Ref Range Glucose Lvl 96 65 - 199 mg/dL BUN 17 10 - 20 mg/dL Creatinine 0.94 0.80 - 1.50 mg/dL Sodium 137 135 - 145 mmol/L Potassium 4.2 3.5 - 5.0 mmol/L Chloride 101 98 - 107 mmol/L CO2 25 22 - 31 mmol/L Anion Gap 11 5 - 15 mmol/L Calcium 9.2 8.5 - 10.5 mg/dL Estimated GFR 81 >=60 mL/min/1.73 m?? Ethanol Level Result Value Ref Range Ethanol Lvl <100 <=99 mg/L Lactate, whole blood, send to lab ([facility]) Result Value Ref Range Lactate WB 1.2 0.5 - 2.2 mmol/L Hemogram Result Value Ref Range WBC 8.9 4.0 - 9.5 x10(3)/mcL RBC 4.38 (L) 4.58 - 5.54 x10(6)/mcL Hemoglobin 13.2 (L) 13.7 - 16.5 g/dL Hematocrit 39.0 (L) 40.5 - 48.5 % MCV 89.0 82.9 - 93.1 fL MCH 30.1 27.5 - 32.1 pg MCHC 33.8 32.0 - 35.7 g/dL Platelets 183 145 - 357 x10(3)/mcL RDWSD 45.0 36.0 - 45.0 fL RDWCV 13.7 11.4 - 13.8 % MPV 10.2 7.6 - 12.9 fL nRBC % Auto 0.0 % nRBC Abs Auto 0.000 0.000 - 0.000 x10(3)/mcL Differential, Automated Result Value Ref Range Neutrophils % 80.9 % Neutr Abs (ANC) 7.19 (H) 1.70 - 6.10 x10(3)/mcL Lymphocytes % 9.9 % Lymphocytes Abs 0.9 0.9 - 3.2 x10(3)/mcL Monocytes % 8.0 % Monocyte Abs 0.7 0.3 - 0.9 x10(3)/mcL Eosinophils % 0.5 % Eosinophils Abs 0.0 0.0 - 0.4 x10(3)/mcL Basophils % 0.5 % Basophils Abs 0.0 0.0 - 0.1 x10(3)/mcL Immature Gran % 0.20 % Mae Gran Abs 0.02 0.00 - 0.04 x10(3)/mcL Gold Tube HOLD Result Value Ref Range Gold Hold Sample in lab. Rapid Drug Screen, Urine (NO Request) Result Value Ref Range NO Conf Requested No NO Requested See Comment Urinalysis with reflex Culture Specimen: Urine Result Value Ref Range Glucose UA Negative Negative mg/dL Protein UA Negative Negative mg/dL Bilirubin UA Negative Negative mg/dL Urobilinogen UA Normal Normal mg/dL pH UA 5.0 5.0 - 8.0 Blood UA Negative Negative mg/dL Ketones UA 15 (A) Negative mg/dL Nitrite UA Negative Negative Leukocytes UA Negative Negative mcL Appearance UA Clear Clear Spec Wrights UA >=1.030 (A) 1.005 - 1.030 Color UA Yellow Yellow Culture Reflexed No RADIOLOGY: XR Chest - 1. Multiple acute left rib fractures with mild displacement of the lateral 8th rib as on prior CT. No pneumothorax. 2. Left lateral chest peripheral lobular opacity, corresponds to reflects a chest wall hematoma along the known left rib fractures. CT Head/C-spine- 1. No acute intracranial hemorrhage or calvarial fracture. 2. No acute cervical spine fracture. CT Chest 2nd read pending CT Abd/Pelvis- No acute traumatic injury to the abdomen or pelvis. CT L spine- No acute fracture or traumatic malalignment of the lumbar spine. Extremity Imaging- None Incidental Radiographic Findings: None Procedures Performed: Intubation: No Goldsmith Cath: No Central Line: No Chest Tube: No Sutures: No Other: None Assessment/Summary of Injuries: 71 y.o. male s/p mechanical fall on ice. Pt brought in as transfer alert, primary intact, GCS 15. Injuries identified include: 1. Left rib fractures 5-12 Plan: ?? Admit to Trauma Surgery Service in good condition, Dr. Dodson, attending ?? NPO ?? Upright CXR when able. ?? IV Fluids: lactated Ringer's at 75 mL/hr ?? Consulting Services and plans: 1. None ?? Spine status: Plan to clear ?? Multimodal pain control for rib fractures ?? DVT prophylaxis: Mechanical compression. Hold coumadin. No signs of bleeding. ?? GI prophylaxis: None ?? Tertiary survey in AM ?? DISPO: Floor, full code Cheyanne Martinez MD Trauma Surgery [id number] 12/12/2021 4:49 AM Trauma Surgery Attending Addendum: I was present on patient arrival and for the initial evaluation,and have discussed the plan with the resident staff. I agree with the above note with the followingadditions and/or modifications. Received in transfer from [facility] as a Trauma Alert for multiple rib fractures. The patient is a 71yo man who takes coumadin for aortic and mitral valve replacements. He slipped and fell on the ice earlier today, sustaining L rib fractures 5-12. He arrived to [facility] in good condition. His primary survey was intact. Completion imaging revealed the multiple rib fractures without any additional injuries. Admit to trauma, SDU level of care, RT consult for pulm toilet, multi-modal pain control. Carlos Manuel Dodson MD documented in this encounter ED Notes * Onelia Horner RN - 12/12/2021 7:33 AM EST Report to DAVIN Cheung. Patient condition stable at time of transfer of care. * Onelia Horner RN - 12/12/2021 6:54 AM EST Patient resting comfortably on stretcher with no acute distress noted. VSS. Call harris in reach. * Onelia Horner RN - 12/12/2021 5:00 AM EST Patient sleeping on stretcher with no apparent distress noted. Respirations even and unlabored. VSS. Call harris in reach. * Onelia Horner RN - 12/12/2021 4:04 AM EST To/From CT w/out difficulty. Patient tolerated procedure well. VSS. * Onelia Horner RN - 12/12/2021 3:29 AM EST Resting comfortably. Swabbed mouth and applied lip balm. Patient verbalizes increased comfort. VSS. * Matti Yanez MD - 12/12/2021 1:47 AM EST ED Resident Note HPI: London Neri is a 71 y.o. male who presents to the Emergency Department as trauma transfer was CTchest that showed rib fractures and liver laceration. Patient had mechanical fall onto his right side. Denies headache, vision changes, shortness of breath, abdominal pain. Discussed with: Patient Did you discuss: 1. Resuscitation goals No 2. Expectations/Fears No Did your conversation change the patient's disposition? No Pt was seen under the supervision of an attending physician. Review of Systems Pertinent positives and negatives are included in the HPI, otherwise at least ten systems were reviewed and negative. Past Medical and Surgical Histories, Social History, Medications, Allergies were reviewed in the chart. Vitals: ED Triage Vitals BP: 130/73 [12/12/21113] Heart Rate: 66 [12/12/21114] Resp: 20 [12/12/21114] Temp: 37.1 ??C (98.8 ??F) [12/12/21114] Temp src: Oral [12/12/21114] SpO2: 93 % [12/12/21114] O2 Device: RA [12/12/21114] O2 Flow Rate (L/min): 2 L/min [12/12/21129] Physical Exam Constitutional: Appearance: Normal appearance. He is not ill-appearing. Cardiovascular: Rate and Rhythm: Normal rate and regular rhythm. Pulses: Normal pulses. Heart sounds: Normal heart sounds. Skin: Capillary Refill: Capillary refill takes less than 2 seconds. Neurological: Mental Status: He is alert. ED Course: I have reviewed labs and imaging, images and available reports, and they are significant for: CBC: minor anemia not consistent with massive bleeding BNP: normal electrolytes in creatinine CT Head & Cervical Spine wo Contrast (Generic) Final Result 1. No acute intracranial hemorrhage or calvarial fracture. 2. No acute cervical spine fracture. I have personally reviewed the image(s) and the resident's interpretation and agree with the findings, Nehal Valdez MD at 12/12/2021 5:11 AM Thank you for letting us participate in the care of this patient. If you are a health care provider and have any questions regarding this report, please contact the number below. For patients who have questions please contact the health managed care manager that requested your imaging first. Abdomen & Pelvis w Contrast Final Result No acute traumatic injury to the abdomen or pelvis. I have personally reviewed the image(s) and the resident's interpretation and agree with the findings, Nehal Valdez MD at 12/12/2021 5:36 AM Thank you for letting us participate in the care of this patient. If you are a health care provider and have any questions regarding this report, please contact the number below. For patients who have questions please contact the health managed care manager that requested your imaging first. Lumbar Spine Reconstruction Final Result No acute fracture or traumatic malalignment of the lumbar spine. I have personally reviewed the image(s) and the resident's interpretation and agree with the findings, Nehal Valdez MD at 12/12/2021 5:29 AM Thank you for letting us participate in the care of this patient. If you are a health care provider and have any questions regarding this report, please contact the number below. For patients who have questions please contact the health managed care manager that requested your imaging first. Chest One View Final Result 1. Multiple acute left rib fractures with mild displacement of the lateral 8th rib as on prior CT. No pneumothorax. 2. Left lateral chest peripheral lobular opacity, corresponds to reflects a chest wall hematoma along the known left rib fractures. I have personally reviewed the image(s) and the resident's interpretation and agree with the findings, Nehal Valdez MD at 12/12/2021 2:20 AM Thank you for letting us participate in the care of this patient. If you are a health care provider and have any questions regarding this report, please contact the number below. For patients who have questions please contact the health managed care manager that requested your imaging first. Procedures Assessment and Plan: 71 y.o. male with multiple contiguous rib fractures and liver laceration. Patient has normal vital signs on arrival. Fast negative. Patient admitted to trauma service for further workup and treatment. Please see their note for further details. The visit findings, diagnosis, and care plan were discussed with the patient. Matti Yanez MD Resident 12/12/21 0651 Associated attestation - Rayna High MD - 12/13/2021 2:47 AM EST ED ATTENDING ATTESTATION NOTE The patient was seen in conjunction with the resident physician. I have independently performed thekey portions of the history and physical exam. I have reviewed the nursing notes, vital signs, and all diagnostic studies personally including labs, imaging studies and EKGs. I have discussed the details of the case with the resident and agree with the assessment and plan as described in the resident note above unless noted otherwise below. documented in this encounter Miscellaneous Notes * Care Management Discharge - London Ortega RN - 12/16/2021 11:24 AM EST CARE MANAGEMENT FINAL DISCHARGE NOTE Chart reviewed, care reviewed with primary team and at interdisciplinary rounds. Patient is medically ready for discharge to home w/ VNA. Needs for Transition of Care: Plan for discharge is: Home w/ Services Home Health Services: Physical Therapy, Occupational Therapy, Registered Nurse Agency Referrals & Follow-up Care: [facility]. PHONE: [phone] FAX: [phone] Transportation: family or friend will provide Functional status prior to admission: Independent Home Environment: Others in the home: other (see comments) (Pt lives with his spouse during the summer months and alone during the winter months; Spouse currently in [place], planned to return end [facility]). Current Living Arrangements: home/apartment/condo (Owns his home consisting of two suites. Pt lives in one suite and rents out the other). Accessibility Concerns:6 steps to enter residence. once inside, he reports single level living. Current Functional Ability: Assistive Person and Equipment DME used at home: none DME Needed at Discharge: Ambulatory Support Needs: Walker - Front Wheeled Provider: [facility] Delivery: Hosp Room Patient is insured through: Primary Insurance: MEDICARE Payor: MEDICARE / Plan: MEDICARE PART A & B / Product Type: *No Product type* / Secondary Insurance: [employer] [facility] Prescription Coverage: Yes Preferred Pharmacy: [id number] - [place], [place] - [address] [place], [place] [address] [facility] [address] [facility] [id number] This plan was formulated with input from patient and team. All are in agreement with plan. London Ortega business analytics analyst Pgr: [id number] * Plan of Care - Luzma Olivarez RN - 12/15/2021 3:26 PM EST OUTCOME EVALUATION NOTE: OUTCOME SUMMARY: VSS on RA. A&O x4. Denies SOB, N/V, chest pain. Pain in ribs reported as 3-4/10. Well controlled with scheduled medications. DC'd heparin gtt per orders. Provided Lovenox teaching. Patient administered own injection with nurse oversight. Tolerating PO intake well, 1 BM today. Voiding adequate amounts in urinal. MD team requested he be moved to window room to prevent delirium. Notified charge nurse for request. Pt ambulated in hallway with SBA and FWW. PLAN MOVING FORWARD: DC planning. Pain management. Monitor VS and I/Os. Bridge to coumadin. INDIVIDUALIZED FALL PREVENTION INTERVENTIONS: Patient-specific fall risk factors per assessment: [current deficits]: Weakness, pain, unfamiliar environment. Assistance [level of assistance required for transfers and ambulation]: Arms reach. Supervision [direct monitoring required during toileting and ADLs]: SBA w/FWW Surveillance [continuous indirect monitoring]: Purposeful rounding, call harris w/in reach, room nearnurse station. Patient-specific fall prevention interventions for sensory deficits provided, if applicable: Yes, non skid socks on when OOB CPG GOAL OUTCOME EVALUATION: Ongoing. * Consult Note - Jordan Hutchinson MD - 12/15/2021 9:13 AM EST [facility] Thoracic Surgery Inpatient Consult Note HPI: London Neri is a 71 y.o. male with a PMH of high grade AV block s/p pacemaker, atrial fibrillation, mechanical mitral and aortic valve replacements (1998, on coumadin), COPD, and prior left thoracoscopic partial decortication with blebectomy and talc pleurodesis for recurrent spontaneous pneumothorax who was admitted to [facility] 12/12 after a mechanical fall from standing after slipping on iceand sustaining fractures of left ribs 5-12, with associated chest wall hematoma. Thoracic Surgery has been consulted for consideration of rib fixation. 24 hours events: - Chest CT wo contrast requested to assess hematoma along the 8th rib PMH: Past Medical History: Diagnosis Date ??? C. difficile colitis ??? COPD (chronic obstructive pulmonary disease) ??? Emphysema of lung ??? Hemorrhoid ??? Pacemaker - dual lead [employer] 07/29/2020 ??? Pneumothorax on left PSH: Past Surgical History: Procedure Laterality Date ??? AORTIC VALVE REPLACEMENT 1998 ??? CARDIAC VALVE REPLACEMENT 1983 Aortic Valve ??? CARDIAC VALVE REPLACEMENT 1998 Mechanical Aortic and Mitral ??? HERNIA REPAIR ??? MITRAL VALVE REPLACEMENT 1998 ??? PRO BRONCHOSCOPY, DIAGNOSTIC Left 03/06/2021 BRONCHOSCOPY, DIAGNOSTIC (WRVU 2.78) performed by Navin Khalil MD at [facility] MAIN OR ??? PRO COLONOSCOPY, REMV LESN, SNARE N/A 01/26/2017 COLONOSCOPY, POLYPECTOMY, REMOVAL LESION BY SNARE (WRVU 4.67) performed by Lena Clark MD at [facility] ENDOSCOPY ??? PRO THORACOSCOPY SURG W/PLEURODESIS Left 03/06/2021 @THORACOSCOPY, SURG; W PLEURODESIS (WRVU 10.83) performed by Navin Khalil MD at [facility] MAIN OR ??? PRO THORACOSCOPY W RESECTION-PLICATION EMPHYSEMA LUNG UNILATERAL Left 03/06/2021 @THORACOSCOPY, SURG; W/RESC-PLICATION EMPHYSEMATOUS LUNG, UNILATERAL (WRVU 27) performed by Navin Khalil MD at [facility] MAIN OR ??? PRO THORACOSCOPY W/PARTIAL PULMONARY DECORTICATION Left 03/06/2021 @THORACOSCOPY, SURG; W PART. DECORTICATION (WRVU 18.78) performed by Navin Khalil MD at [facility] MAIN OR ??? PRO THORACOSCOPY W/PARTIAL PULMONARY DECORTICATION Left 03/09/2021 @THORACOSCOPY, SURG; W PART. DECORTICATION (WRVU 18.78) performed by Navin Khalil MD at [facility] MAIN OR ??? PRO THORACOTOMY, CTRL TRAUMA BLEED Left 03/09/2021 @THORACOTOMY WEXPL,CONTROL BLDNG (WRVU 25.28) performed by Navin Khalil MD at [facility] MAIN OR MEDS: No current facility-administered medications on file prior to encounter. Current Outpatient Medications on File Prior to Encounter Medication Sig Dispense Refill ??? tamsulosin (Flomax) 0.4 mg Capsule Take 1 capsule by mouth daily. 90 tablet 5 ??? betamethasone dipropionate (DIPROLENE) 0.05 % Cream APPLY SMALL AMOUNT EXTERNALLY TO RASH TWICEDAILY FOR NO MORE THAN 2 WEEKS ??? aspirin 81 mg Tablet, Delayed Release (E.C.) TAKE ONE TABLET BY MOUTH EVERY DAY 3 ??? warfarin (COUMADIN) 10 mg tablet ALL: No Known Allergies FHx: No family history on file. SHx: Social History Socioeconomic History ??? Marital status: Spouse name: Not on file ??? Number of children: Not on file ??? Years of education: Not on file ??? Highest education level: Not on file Occupational History ??? 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 Smoking status: Former Smoker Packs/day: 1.00 Years: 18.00 Pack years: 18.00 Quit date: 1983 Years since quittin.1 ??? Smokeless tobacco: Former User Quit date: [...] on file Housing Stability: Not on file ROS: A 10-point review of systems was negative except as noted in HPI. VITALS: Patient Vitals for the past 24 hrs: Temp Heart Rate From SP02 Pulse Resp BP SpO2 O2 Device 12/14/21 1135 36.4 ??C (97.5 ??F) 72 bpm -- 16 124/70 96 % RA 12/14/21 1232 -- -- 69 -- -- 95 % RA 12/14/21 1550 36.3 ??C (97.3 ??F) 75 bpm -- 16 133/59 95 % RA 12/14/21 1645 -- -- -- -- -- -- RA 12/14/21 1958 36.5 ??C (97.7 ??F) 71 bpm -- 18 123/60 93 % RA 12/14/21 2311 37 ??C (98.6 ??F) 70 bpm -- 16 114/55 93 % RA 12/15/21 0330 -- 69 bpm -- -- -- 93 % -- 12/15/21 0350 36.7 ??C (98.1 ??F) -- -- 16 128/64 -- RA 12/15/21 0746 36.6 ??C (97.9 ??F) 69 bpm -- 16 115/60 94 % RA EXAM: Gen: NAD, resting comfortably in chair HEENT: MMM, no scleral icterus CV: HR 70s, irregular Pulm: non labored breathing on room air, coarse breath sounds bilaterally, left chest wall tender to palpation, no crepitus GI/Abd: soft, non distended MSK: extremities warm and well perfused Neuro: no focal deficits Skin: no lesions or rashes noted LABS: Recent Labs 12/15/21 0552 12/14/21 0437 12/13/21 1603 WBC 5.8 6.5 8.4 HGB 12.4* 12.4* 13.2* HCT 36.6* 36.8* 38.8* PLATELET 176 163 176 NEUTROABS 3.93 4.80 6.24* Recent Labs 12/14/21 0616 12/13/21 0607 12/12/21 0125 NA 138 135 137 K 4.5 4.3 4.2 CL 104 103 101 CO2 25 BUN 23* 26* 17 CREATININE 0.96 1.06 0.94 Recent Labs 12/14/21 0616 12/13/21 0607 12/12/21 0125 CALCIUM 8.9 8.7 9.2 Recent Labs 12/14/21 0616 12/13/21 0607 12/12/21 0125 GLUCOSE 92 92 96 No results for input(s): AMYLASE, BFAMYLASE in the last 168 hours. Recent Labs 12/14/21 0616 AST 21 ALT 13 ALKPHOS 45 BILITOT 0.7 Recent Labs 12/15/21 0552 12/14/21 0437 12/13/21 0607 INR 1.7 1.2 1.4 PT 19.6* 14.1* 16.3* PTT >160* 100* 33 No results for input(s): CK in the last 168 hours. MICRO: Microbiology Results (Last 30 days) Procedure Component Value Units Date/Time COVID-19 PCR [[id number]] Collected: 12/14/21 1659 Lab Status: Final result Specimen: Nasopharyngeal Swab Updated: 12/15/21 0004 SARS-CoV-2 RNA Not Detected Comment: This result should be interpreted in combination with the clinical observations, patient history and epidemiological information in making a final diagnosis. For testing of asymptomatic individuals, assay performance characteristics and clinical utility have not been evaluated. Testing for SARS-CoV-2 (Severe acute respiratory syndrome coronavirus 2, formerly known as 2019 novel coronavirus or 2019-nCoV) to aid in the diagnosis of COVID-19 is performed using the [employer] m SARS-CoV-2 Assay as authorized by the FDA Emergency Use Authorization (EUA). This EUA assay is intended for In-vitro Diagnostic (IVD) use with respiratory specimens such as nasopharyngeal swabs collected from individuals during the acute phase of infection. This assay is performed based on the instructions for use provided by [employer] and additional guidance provided by CDC and FDA. Testing is performed in the [facility] within the Department of Pathology and Laboratory Medicine at [facility], certified under the Clinical Laboratory Improvement Amendments of 1988 (CLIA), 42 U.S.C. 263a, to perform high complexity tests. Assay performance has been verified according to clinical laboratory regulatory requirements for use with specimens collected from individuals suspected of COVID-19. Test results are provided above. A result of Not Detected indicates that the viral RNA target is not present above the limit of detection, but does not preclude SARS-CoV-2 infection. False negative results may occur if a specimen is improperly collected, transported or handled; if amplification inhibitors are present; or if inadequate numbers of viral particles are present in the specimen. When a diagnostic test is negative, the possibility of a false negative result should be considered in the context of a patient's recent exposures and the presence of clinical signs and symptoms consistent with COVID-19. A result of Detected indicates that RNA from SARS-CoV-2 was detected and the patient is infected. As required or requested by public health authorities, positive specimens may be sent for additional testing. Positive and negative predictive values for this test are highly dependent on disease prevalence. A result of Invalid indicates that neither the viral RNA targets nor the internal control target was detected. An invalid result suggests the presence of inhibitors. Recollection and re-testing is recommended in the case of an invalid result. CDC COVID-19 criteria for testing on human specimens and clinical management guidance information are available at the CDC Coronavirus Disease 2019 (COVID-19) webpage under Information for Healthcare Professionals (https://www.cdc.gov/coronavirus/2019-ncov/hcp/index.html) Additional information about this and other EUA tests can be found in provider and patient fact sheets at the following FDA website: https://www.fda.gov/medical-devices/devyvynzgfk-qjigyyc-7665-brnje-62-oketwnlhs- hyp-nfeilboikfspdy-jrundhl-devices/lufrh-oooehzujvmp-uemd SARS-Cov-2 RNA Source [employer] Swab COVID-19 PCR [[id number]] Collected: 12/12/21 1400 Lab Status: Final result Specimen: Nasopharyngeal Swab Updated: 12/12/21 1644 SARS-CoV-2 RNA PCR Not Detected Comment: This result should be interpreted in combination with the clinical observations, patient history and epidemiological information. For testing of asymptomatic individuals, assay performance characteristics and clinical utility have not been evaluated. Testing for SARS-CoV-2 (Severe acute respiratory syndrome coronavirus 2, formerly known as 2019 novel coronavirus or 2019-nCoV) to aid in the diagnosis of COVID-19 is performed using the Simplexa COVID-19 Direct Assay by [email or web address] as authorized by the FDA issued Emergency Use Authorization (EUA). This assay is intended for In-vitro Diagnostic (IVD) use with nasopharyngeal swabs collected from individuals meeting the CDC criteria for testing. The assay is performed based on the instructions for use and additional guidance provided by the FDA. Testing is performed in the Microbiology Laboratory within the Department of Pathology and Laboratory Medicine at [facility], certified under the Clinical Laboratory Improvement Amendments of 1988 (CLIA), 42 U.S.C. section 263a, to perform high complexity tests. Assay performance has been verified according to clinical laboratory regulatory requirements. Test results are provided above. A result of Not Detected indicates that the viral RNA target is not present but does not preclude SARS-CoV-2 infection. False negative results may occur if a specimen is improperly collected, transported or handled; if amplification inhibitors are present; or if inadequate numbers of viral particles are present in the specimen. A result of Detected suggests a current or recent infection and the patient is presumed to be infected. Positive and negative predictive values for this test are highly dependent on disease prevalence. A result of Invalid indicates the inability to conclusively determine the presence or absence of SARS-CoV-2 RNA in the sample which can be due to a variety of factors. Recollection is recommended in the case of an invalid result. CDC COVID-19 criteria for testing on human specimens and clinical management guidance information are available at the CDC Coronavirus Disease 2019 (COVID-19) webpage under Information for Healthcare Professionals (https://www.cdc.gov/coronavirus/2019-ncov/hcp/index.html). Additional information about this and other EUA tests can be found in provider and patient fact sheets at the following FDA website: https://www.fda.gov/medical-devices/jxruubaidcu-iehysak-9098-tjiuj-84-pedgxeakx- nwi-yqhvmaihlrhukz-jqunddl-devices/nnafr-vylpdcwxlkb-tbei SARS-CoV-2 Source [employer] Swab IMAGING/DIAGNOSTICS: CT Chest FINDINGS: Pulmonary parenchyma: Severe bilateral centrilobular emphysematous disease. 2 subcentimeter pleural-based lesion superior segment LEFT lower lobe. Broad-based LEFT lateral parietal density, compatible with a hematoma adjacent to rib fractures. No areas of airspace consolidation. Airways: No endobronchial lesions Pleura: No pleural effusions. Possible loculated LEFT lateral pneumothorax. Lymph nodes: No significant findings. Heart, pericardium, and great vessels: Post aortic and mitral valve replacement. No pericardial effusion Other mediastinal structures: No significant findings. Lower neck: No significant findings. Upper abdomen: Indeterminate ill-defined heterogeneous enhancement of a portion of the RIGHT hepatic lobe. Body wall soft tissues: No significant findings. Skeletal structures: Following LEFT rib fractures: Nondisplaced lateral fifth rib and minimally displaced proximal LEFT rib fracture;, LEFT sixth rib, comminuted laterally minimally displaced medially at costochondral junction; comminuted LEFT lateral seventh rib fracture and minimally displaced medial LEFT seventh rib fracture at costochondral junction; proximally fractured eighth rib with comminuted lateral eighth rib fractures; proximal ninth rib fracture; Proximal 10th rib fracture and lateral 10th rib fracture; proximal 11th rib fracture; distal 12th rib fracture. ?? IMPRESSION: 1. Fractures through LEFT fifth and 12th ribs, as described above. 2. Hemopneumothorax adjacent to rib fractures and LEFT mid lateral lung. 3. No pneumothorax. 4. Superior segment LEFT lower lobe 2.0 cm nodule. New compared to CT from 10/12/2021; recommend close interval follow-up for assessment of stability. 5. Severe bilateral centrilobular emphysematous disease. Correction on impression #2, it should read: 2. Hemothorax adjacent to rib fractures and LEFT mid lateral lung. No pneumothorax ASSESSMENT: London Neri is a 71 y.o. male with a history of AV block s/p pacemaker, atrial fibrillation, AVR/MVR on coumadin, COPD, and prior left thoracoscopic partial decortication with blebectomy and talc pleurodesis for recurrent spontaneous pneumothorax. He was admitted after a mechanical ground level fall sustaining fractures of left ribs 5-12, with associated chest wall hematoma. He is hemodynamically normal and in no distress. He has non labored breathing on room air and reports his pain is tolerable. Of his rib fractures, the 8th rib is displaced. Operative fixation could potentially offer more optimal pain control and bone healing. However, given that his pain is relatively well controlled and considering his comorbidities and anticoagulation, we do not recommend operative fixation at this time. This was discussed in detail with the patient who expressed understanding and agreement with this plan. He underwent chest CT to assess interval change on his hematoma. It reported slight progression of of loculated hemothorax. Also a 1.6 cm posterior pleural based superior segment left lower lobe nodule is new compared to 10/12/2021 CT. We recommend follow up in 3 months. RECS: ?? No indication for acute surgical intervention ?? Follow up in 3 months in thoracic surgery clinic ?? Please page [phone] at anytime with questions or concerns Jordan Hutchinson MD Thoracic Surgery Service Pager [phone] 12/15/2021 Associated attestation - Srini Aguilar MD - 01/07/2022 1:20 AM EDT I have seen the patient in person and reviewed the resident's above history and I agree with the details as written. The assessment and plan were formulated in discussion with me and I agree with them as documented. Plan: No indication for surgical intervention at this time. Srini Aguilar MD Thoracic Surgery * Plan of Care - Luzma Olivarez RN - 12/14/2021 3:01 PM EST OUTCOME EVALUATION NOTE: OUTCOME SUMMARY: A&O x4. VSS on RA. Pain 8-10/10 of Left side ribs with movement. Pain not well controlled with scheduled and PRN medications. Notified MD. IV dilaudid 0.2 PRN Q4 orders placed. Patient toleratingPO intake well. Denies N/V, SOB, chest pain. Patient worked w/PT today, ambulating in room. Up in chair most of day. Patient to CT scan of chest this afternoon to surveil for fluid collections under rib fx. Remains on heparin gtt at 1300 units/hr, UFH is therapeutic. Bridge to coumadin home regimenper orders. +flatus, no BM today. Voiding adequate amounts in urinal. PLAN MOVING FORWARD: Pain management. Monitor VS and I/O's. Heparin gtt PT/OT Dc planning. INDIVIDUALIZED FALL PREVENTION INTERVENTIONS: Patient-specific fall risk factors per assessment: [current deficits]: Tethering lines, weakness, pain, narcotics. Assistance [level of assistance required for transfers and ambulation]: 1 assist w/FWW Supervision [direct monitoring required during toileting and ADLs]: Hands on. Surveillance [continuous indirect monitoring]: laura Persaud w/in reach, purposeful rounding, room near nurse station. Patient-specific fall prevention interventions for sensory deficits provided, if applicable: Yes, non skid socks on when OOB. CPG GOAL OUTCOME EVALUATION: Ongoing. * Consult Note - Meghan Castrejon APRN - 12/14/2021 11:41 AM EST Geriatric Medicine Consult Note NAME: London Neri Encounter Date: 12/14/2021 Inpatient Attending: Harjinder Light MD PCP: Linda Vang MD Hospital day: Hospital Day 2 days Code Status: FULL CODE Reason for Consultation: The Geriatric Service is asked by Dr. Harjinder Light MD to see this patient for : [] Cognitive Impairment [] Frailty [] Dementia [x] Falls [] Polypharmacy [x] Goals of Care/Decision Making [] Advance Care Planning [] Elder Abuse [x] Introduction of Geriatric Services [] Other (specify): I have reviewed the relevant records, interviewed and examined the patient. he was unaccompanied byat the time of our visit. History obtained from: X Patient Family/Caregiver (other than or in addition to patient) X Chart review X Other medical team members History of Present Illness: London Neri is a 71 y.o. male with PMH of high grade AV block s/p pacemaker, A fib s/p mechanical mitral and aortic valve replacements (1998, coumadin), COPD, andprior L thoracoscopic partial decortication with blebectomy and talc pleurodesis for recurrent spontaneous pneumothorax who presented to [facility] s/p slip and fall on ice. Reports walking to mailbox and slipped on some ice resulting in a mechanical fall, landing on left side. Denied LOC or head strike,though complained of left rib pain upon arrival to OSH. He was found to have fractures of left ribs5-12, with associated chest wall hematoma and INR of 3.6. He received vit K for coumadin prior to transfer. He was started on his home coumadin 10 mg daily on 12/13 with hepatin bridhe until INR goal of 2.5-2.5 is achieved. Since arrival at [facility], has been consulted by Thoracic surgery for possible rib plating who, at this time, are not recommending acute surgical intervention. Dominic is independentof all ADL/IADLs at baseline, still drives and does not use ambulation devices for stability. Physical symptoms: Pain: Endorsing 8/10 L chest wall pain, described as sharp with movement and with coughing, achy at rest. Feels that the pain medications have been helpful. Bowels: LBM yesterday Bladder: Denies changes to bladder function since admission Appetite/Nausea: Reports excellent appetite, denies nausea/vomiting Fatigue/tiredness: Adequate energy level though is not moving as much as he normally would due to pain. Feels that he is getting enough sleep here in the hospital and reports excellent sleep at home. 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 He is passionate about the game. He feels well supported by this local community in [place] and his . Of note, [place] , [place], [place] and plans to return to [place] in late December. Shortness of breath: Denies shortness of breath, does endorse difficulty getting a deep breath indue to pain, using IS. Cognitive function: Denies recent changes in cognition, able to play bridge for a living, no recentmemory loss Physical function: Denies changes in physical function over the last year, reports walking independently, independent of all ADLs and IADLs at baseline. Still drives. Injuries: 1. Left rib fractures 5-12 Comorbidities: Patient Active Problem List Diagnosis Code ??? Clostridium difficile colitis A04.72 ??? Encounter for screening colonoscopy Z12.11 ??? Chronic bullous emphysema J43.9 ??? Pacemaker - dual lead Medtronic Z95.0 ??? Near syncope R55 ??? Recurrent spontaneous pneumothorax J93.83 ??? Typical atrial flutter I48.3 ??? Aortic insufficiency I35.1 ??? AV block, complete I44.2 ??? Current use of prison anticoagulation Z79.01 ??? Heart block I45.9 ??? Lung blebs J43.9 ??? Other air leak J93.82 ??? Postoperative hematoma [id number] ??? 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 Tension pneumothorax, spontaneous J93.0 ??? Rib fractures S22.49XA Currently residing/social situation: Social History Socioeconomic History ??? Marital status: Spouse name: Not on file ??? Number of children: Not on file ??? Years of education: Not on file ??? Highest education level: Not on file Occupational History ??? 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 Smoking status: Former Smoker Packs/day: 1.00 Years: 18.00 Pack years: 18.00 Quit date: 1983 Years since quittin.1 ??? Smokeless tobacco: Former User Quit date: [...] on file Housing Stability: Not on file ADVANCE DIRECTIVES, GOALS AND VALUES: Patient has capacity to make these decisions: [x] Yes [] No [] Unclear - further evaluation needed DPOA: Activated (if yes explain): [place]: toribio Joshi POLST/COLST: No GERIATRIC SCREENING Deficits found in those checked ADL: [] Bathing/mouth care [] Dressing/grooming [] Toileting [] Transferring (bed/chair) [] Feeding [] Ambulating home IADL: [] Transportation (driving or using public transportation) [] Shopping [] Food preparation [] House maintenance [] Communication tools (use of phone, computer) [] Medication management [] Managing finances Mobility device used: [] Walker [] Wheelchair [] Cane [] Scooter Balance issues: [x] Yes - attributes this to his pacemaker [] No Current driving status: [x] Driving [] Not Driving Visual status: [x] Glasses [] Contacts Auditory status: [] Hearing Aids Oral care: Devices: [x] Dentures - fit well Nutrition [] Currently on protein or calorie supplement, TPN [] Aspiration risk Diet: Regular diet Wt Readings from Last 3 Encounters: 12/12/21 86.2 kg (190 lb) 10/12/21 81.4 kg (179 lb 6.4 oz) 03/30/21 76.5 kg (168 lb 11.2 oz) Bowel/Bladder function: [] Incontinent - Bladder [x] Continent - Bladder - prostate/bladder problems [] Incontinent - Bowel [x] Continent - Bowel Delirium risk factors: [] >70 years old, cognitive impairment at baseline [] Limited physical function, reduced ADLs [x] Alcohol use [] Low Na/K/glucose level [] Hx of intrathoracic/AAA surgery [x] Untreated pain [] Constipation [] Perioperative NC [] Infection [] Higher risk medication use/polypharmacy [x] Visual or hearing impairment Delirium Screening (4AT) Total Score: 0 Alertness [x] Drowsiness, stimuli for response (0 pt) [] Mild sleepiness for <10 seconds after waking, then normal (0 pt) [] Clearly abnormal (4 pt) AMT4 [x] Makes no mistakes (0 pt) [] 1 mistake (1 pt) [] 2 or more mistakes/untestable (2 pt) Attention [x] Achieves 7 months or more correctly (0 pt) [] Score <7 months / refuses to start (1 pt) [] Untestable (unwell, drowsy, inattentive) (2 pt) Acute Change/Flucuating Course [x] No (0 pt) [] Yes (4 pt) 4 or above: possible delirium +/- cognitive impairment; 1-3: possible cognitive impairment; 0: delirium or severe cognitive impairment unlikely (but delirium still possible if information incomplete) Depression screening (PHQ2) Total Score: 0 Over the last 2 weeks, how often have you been bothered by the following problems? Never Several Days More than half the days Nearly Every Day Little interest or pleasure in doing things [x] (0 pt) [] (1 pt) [] (2 pt) [] (3 pt) Feeling down, depressed, or hopeless [x] (0 pt) [] (1 pt) [] (2 pt) [] (3 pt) A PHQ-2 score ranges from 0-6. A score of 3 as the optimal cutpoint when using the PHQ-2 to screen for depression. If the score is 3 or greater, major depressive disorder is likely. Substance & Alcohol Use (SMAST-G): Total Score: 0 [] When talking to other underestimate how much you drink. [] After a few drinks have you sometimes not eaten or skip a meal? [] Does having a few drinks reduce tremor? [] Does alcohol sometimes cause memory loss for you? [] Do you take a drink to calm your nerves? [] Do you drink to take your mind off of problems? [] Increased drinking after a loss in your life? [] Has a medical provider ever said they were worried about your drinking? [] Have you ever made rules to manage your drinking? [] When you feel lonely, does a drink help? Total score of 2 or greater clinically significant (alcohol dependence likely) COGNITIVE STATUS: No need for cognitive testing at this time. Clinical Frailty Scale Total Score: 2 [] 1 - Very Fit: Robust, active, energetic and motivated. Exercise regularly, fittest for age. [x] 2 - Well: No active disease symptoms but are less fit than category 1. Exercise or are active occasionally. [] 3 - Managing Well: Medical problems are well controlled, but are not regularly active beyond routine walking. [] 4 - Vulnerable: While not dependent on others for daily help, symptoms limit activities. Slowed-up or tired daily. [] 5 - Mildly Frail: More evident slowing, needs help with IADLs, shopping & walking outside, meal preparation, etc. [] 6 -Moderately Frail: Need help with ALL outside activities and cleaning, stairs, bathing & needs cuing with ADLs. [] 7 -Severely Frail: Completely dependent for personal care, stable and not at risk of dying (within ~6 months). [] 8 - Very Severely Frail: Completely dependent, approaching end of life. Cannot recover from minor illness. [] 9 - Terminally Ill: Approaching end of life, life expectancy <6 months who are not otherwise evidently frail. Clinical Frailty Score >= 4 = frail, indicates impaired mobility and independence FALL RISK Screening Tool In the past 12 months, have you: Yes No Declines to Answer Does Not Know Fallen more than one time? [] [x] [] [] Injured yourself as a result of a fall? [x] [] [] [] Experienced difficulty with balance or walking? [x] [] [] [] Elder Abuse Screening Yes No Do you feel safe in your home? [x] [] Is anyone hurting you? [] [x] Is anyone using your money without your permission? [] [x] MEDICATION LIST: Scheduled Meds: ??? warfarin (COUMADIN) daily order reminder Oral Q24H ??? polyethylene glycoL 17 g Oral BID ??? sodium chloride 0.9 % (flush) 5 mL Intravenous BID ??? famotidine 20 mg Oral BID Or ??? famotidine 20 mg Intravenous BID ??? lidocaine 2 patch Transdermal Q24H And ??? lidocaine 2 patch Transdermal Q24H ??? tamsulosin 0.4 mg Oral Daily ??? acetaminophen 650 mg Oral Q8H SOPHIE ??? senna-docusate 2 tablet Oral BID Continuous Infusions: ??? heparin (porcine) infusion 1,300 Units/hr (12/13/21 1642) PRN Meds:. Oxycodone 2.5 mg PO x 2 (0852, 1232) Physical Exam: Last value Range last 24 hrs Temperature Temp: 36.4 ??C (97.5 ??F) Temp: [36.4 ??C (97.5 ??F)-36.9 ??C (98.4 ??F)] Heart Rate Heart Rate: 59 (66 after walking) Heart Rate: [59] Blood Pressure BP: 124/70 BP: (113-135)/(51-70) Respiratory Rate Resp: 16 Resp: [16-18] SpO2 SpO2: 96 % SpO2: [94 %-96 %] Gen: Elderly male, sitting up in chair in no acute distress. Alert, responsive and comfortable. HEENT: EOMI, PERRL, anicteric sclera, wearing glasses Neck: Full range of motion, no increase in JVD Lungs: No wheezes, no crackles, clear to auscultation, tender L chest wall on palpation Chest/Back: No spinal tenderness, no visible deformities or scoliosis appreciated Heart: S1,S2, pulses equal Abdomen: Soft, non-tender, non-distended, BS present throughout Extremities: No clubbing, cyanosis or edema x 4 Skin: No rashes, lesions, plaques, nodules, or pressure ulcer on exposed skin Neurological: Grossly normal, oriented to time, place and person Diagnostic Studies: The following studies were reviewed, relevant results noted: Pertinent findings Laboratory Recent Results (from the past 24 hour(s)) Hemogram Result Value Ref Range WBC 8.4 4.0 - 9.5 x10(3)/mcL RBC 4.38 (L) 4.58 - 5.54 x10(6)/mcL Hemoglobin 13.2 (L) 13.7 - 16.5 g/dL Hematocrit 38.8 (L) 40.5 - 48.5 % MCV 88.6 82.9 - 93.1 fL MCH 30.1 27.5 - 32.1 pg MCHC 34.0 32.0 - 35.7 g/dL Platelets 176 145 - 357 x10(3)/mcL RDWSD 43.9 36.0 - 45.0 fL RDWCV 13.4 11.4 - 13.8 % MPV 10.2 7.6 - 12.9 fL nRBC % Auto 0.0 % nRBC Abs Auto 0.000 0.000 - 0.000 x10(3)/mcL Differential, Automated Result Value Ref Range Neutrophils % 74.7 % Neutr Abs (ANC) 6.24 (H) 1.70 - 6.10 x10(3)/mcL Lymphocytes % 12.1 % Lymphocytes Abs 1.0 0.9 - 3.2 x10(3)/mcL Monocytes % 10.0 % Monocyte Abs 0.8 0.3 - 0.9 x10(3)/mcL Eosinophils % 1.9 % Eosinophils Abs 0.2 0.0 - 0.4 x10(3)/mcL Basophils % 0.7 % Basophils Abs 0.1 0.0 - 0.1 x10(3)/mcL Immature Gran % 0.60 % Mae Gran Abs 0.05 (H) 0.00 - 0.04 x10(3)/mcL Heparin (unfractionated) Level Result Value Ref Range Heparin UFH Level <0.04 IU/mL Heparin (unfractionated) Level Result Value Ref Range Heparin UFH Level 0.40 IU/mL Prothrombin Time Result Value Ref Range PT 14.1 (H) 9.4 - 12.5 sec INR 1.2 APTT Result Value Ref Range PTT 100 (H) 25 - 37 sec Hemogram Result Value Ref Range WBC 6.5 4.0 - 9.5 x10(3)/mcL RBC 4.10 (L) 4.58 - 5.54 x10(6)/mcL Hemoglobin 12.4 (L) 13.7 - 16.5 g/dL Hematocrit 36.8 (L) 40.5 - 48.5 % MCV 89.8 82.9 - 93.1 fL MCH 30.2 27.5 - 32.1 pg MCHC 33.7 32.0 - 35.7 g/dL Platelets 163 145 - 357 x10(3)/mcL RDWSD 44.5 36.0 - 45.0 fL RDWCV 13.5 11.4 - 13.8 % MPV 10.1 7.6 - 12.9 fL nRBC % Auto 0.0 % nRBC Abs Auto 0.000 0.000 - 0.000 x10(3)/mcL Differential, Automated Result Value Ref Range Neutrophils % 73.5 % Neutr Abs (ANC) 4.80 1.70 - 6.10 x10(3)/mcL Lymphocytes % 12.7 % Lymphocytes Abs 0.8 (L) 0.9 - 3.2 x10(3)/mcL Monocytes % 9.8 % Monocyte Abs 0.6 0.3 - 0.9 x10(3)/mcL Eosinophils % 2.8 % Eosinophils Abs 0.2 0.0 - 0.4 x10(3)/mcL Basophils % 0.9 % Basophils Abs 0.1 0.0 - 0.1 x10(3)/mcL Immature Gran % 0.30 % Mae Gran Abs 0.02 0.00 - 0.04 x10(3)/mcL Heparin (unfractionated) Level Result Value Ref Range Heparin UFH Level 0.61 IU/mL Comprehensive metabolic panel (non-fasting) Result Value Ref Range Glucose Lvl 92 65 - 199 mg/dL BUN 23 (H) 10 - 20 mg/dL Creatinine 0.96 0.80 - 1.50 mg/dL Sodium 138 135 - 145 mmol/L Potassium 4.5 3.5 - 5.0 mmol/L Chloride 104 98 - 107 mmol/L CO2 22 22 - 31 mmol/L Anion Gap 12 5 - 15 mmol/L Calcium 8.9 8.5 - 10.5 mg/dL Total Protein 6.3 6.1 - 8.0 g/dL Albumin 3.8 3.2 - 5.2 g/dL AST 21 0 - 39 unit/L ALT 13 0 - 55 unit/L Alk Phos 45 40 - 130 unit/L Total Bilirubin 0.7 0.2 - 1.3 mg/dL Estimated GFR 79 >=60 mL/min/1.73 m?? Radiology XR Chest - 12/12 1. ??Multiple acute left rib fractures with mild displacement of the lateral 8th rib as on prior CT. No pneumothorax. 2. ??Left lateral chest peripheral lobular opacity, corresponds to reflects a chest wall hematoma along the known left rib fractures. ?? CT Head/C-spine- 12/12 1. ??No acute intracranial hemorrhage or calvarial fracture. 2. ??No acute cervical spine fracture. ?? CT Abd/Pelvis- 12/12 No acute traumatic injury to the abdomen or pelvis. ?? CT L spine-12/12 No acute fracture or traumatic malalignment of the lumbar spine. 12/13 CXR : Loculated subpleural fluid versus extrapleural hematoma, as before, projecting by lateral left mid hemithorax/ displaced lateral left eighth rib fracture. ?? Other ASSESSMENT/RECOMMENDATIONS London Neri is a 71 y.o. male with PMH of high grade AV block s/p pacemaker, A fib s/p mechanical mitral and aortic valve replacements (1998, coumadin), COPD, and prior L thoracoscopic partial decortication with blebectomy and talc pleurodesis for recurrent spontaneous pneumothorax who presented to [facility] s/p slip and fall on ice found to have L rib fractures 5-12 with associated chest wall hematoma and INR of 3.6 - now being bridged on Heparin to therapeutic INR of 2.25-3.5. Thoracic surgery consulted and he is not a candidate for acute surgical intervention. At this time, PT has cleared him to return home with services. Dominic is independent of all ADL/IADLs at baseline, still drives and does not use ambulation devices for stability. In meeting with him today, he is agreeable to use of walker upon discharge for stability. He feels that he has good supports in place at home between the tenant that lives upstairs from him and his community (organizing food trains, etc). He has awife who is currently in [place] and plans to return to [place] in the end of December. At this time, agree that, if Dominic is not moving forward with rib plating and he is medically ready to discharge, home with services is appropriate for this independent man with adequate community supports. Geriatrics will continue to follow for falls prevention and discharge planning. 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 Cognitive Status -Delirium Prevention and Management - Keep yellow box at bedside with assistive devices (glasses, hearing aids, dentures) - Provide hearing aids /glasses every morning at 9 AM - Open blinds and turn lights on every morning at 9 AM - Close blinds and turn lights off every evening at 9 PM - Reevaluate tethering devices (IV lines/poles, catheters, other devices) daily for possible removal - Avoid restraints if safe for patient, use verbal cues for redirection - Minimize deliriogenic medications (anticholinergics, opioids, sedatives, histamine blockers, corticosteroids) - If remaining in the hospital, would highly encourage bed next to a window Anticoagulation -On coumadin with heparin bridge to goal INR of 2.5-3.5 Pain -Continue Acetaminophen 650 mg PO q8h, pain -Continue Lidoderm patches x 3 -Continue Oxycodone 2.5 PO q4h PRN, pain - could consider broadening to 2.5 mg - 5 mg if using consistently -Discontinue Hydromorphone 0.2 mg IVP q4h, pain -Bowel Regimen -Continue Miralax 17 g PO BID -Continue Pericolace Polypharmacy/medication contributions and recommendations -Discontinue Famotidine 20 mg PO BID --> Pantoprazole 20 mg PO daily (famotidine is deliriogenic) Nutrition -Regular diet Advance directive -FULL CODE -AD uploaded in chart Planned follow up with PCP -Close FU with PCP upon discharge, especially if returning home Suggested Discharge location: [] Rehabilitation Facility [] SNF [] LTC [] RESIDENTIAL [x] Home with Visiting Nurse Services [] Home with Hospice Services [] Home without-Patient Services This clinical assessment compliant is with the ACS TQIP per geriatric trauma management guidelines. This evaluation will include screening for depression, alcohol/substance abuse, functional status, analysis of gait and mobility, fall risk assessment, frailty assessment and nutritional risk with the goals of improving mobility, independence, and quality of life post traumatic event in older adults. Spent 65 of this 80 minute visit discussing pathophysiology and the diagnosis, and counselling thispatient on treatment options, expectations and follow-up plan. Geriatrics Pager: #[phone] (M-F, 8am-5 pm) Meghan Castrejon DNP General Internal Medicine [facility] * Consult Note - Yared Barclay - 12/14/2021 11:01 AM EST [facility] Thoracic Surgery Inpatient Consult Note HPI: London Neri is a 71 y.o. male with a PMH of high grade AV block s/p pacemaker, atrial fibrillation, mechanical mitral and aortic valve replacements (1998, on coumadin), COPD, and prior left thoracoscopic partial decortication with blebectomy and talc pleurodesis for recurrent spontaneous pneumothorax who was admitted to [facility] 12/12 after a mechanical fall from standing after slipping on iceand sustaining fractures of left ribs 5-12, with associated chest wall hematoma. Thoracic Surgery has been consulted for consideration of rib fixation. Mr. Neri reports Monday he slipped on the ice on his driveway and fell onto his left side. He reports he has had pain in his left chest since the fall and has experienced pain like this from prior rib fractures on the right side. He reports the pain is worse with deep breathing but that he doesnot feel short of breath at baseline. He currently reports his pain is at a tolerable level. PMH: Past Medical History: Diagnosis Date ??? C. difficile colitis ??? COPD (chronic obstructive pulmonary disease) ??? Emphysema of lung ??? Hemorrhoid ??? Pacemaker - dual lead Medtronic 07/29/2020 ??? Pneumothorax on left PSH: Past Surgical History: Procedure Laterality Date ??? AORTIC VALVE REPLACEMENT 1998 ??? CARDIAC VALVE REPLACEMENT 1983 Aortic Valve ??? CARDIAC VALVE REPLACEMENT 1998 Mechanical Aortic and Mitral ??? HERNIA REPAIR ??? MITRAL VALVE REPLACEMENT 1998 ??? PRO BRONCHOSCOPY, DIAGNOSTIC Left 03/06/2021 BRONCHOSCOPY, DIAGNOSTIC (WRVU 2.78) performed by Navin Khalil MD at [facility] MAIN OR ??? PRO COLONOSCOPY, REMV LESN, SNARE N/A 01/26/2017 COLONOSCOPY, POLYPECTOMY, REMOVAL LESION BY SNARE (WRVU 4.67) performed by Lena Clark MD at [facility] ENDOSCOPY ??? PRO THORACOSCOPY SURG W/PLEURODESIS Left 03/06/2021 @THORACOSCOPY, SURG; W PLEURODESIS (WRVU 10.83) performed by Navin Khalil MD at [facility] MAIN OR ??? PRO THORACOSCOPY W RESECTION-PLICATION EMPHYSEMA LUNG UNILATERAL Left 03/06/2021 @THORACOSCOPY, SURG; W/RESC-PLICATION EMPHYSEMATOUS LUNG, UNILATERAL (WRVU 27) performed by Navin Khalil MD at [facility] MAIN OR ??? PRO THORACOSCOPY W/PARTIAL PULMONARY DECORTICATION Left 03/06/2021 @THORACOSCOPY, SURG; W PART. DECORTICATION (WRVU 18.78) performed by Navin Khalil MD at [facility] MAIN OR ??? PRO THORACOSCOPY W/PARTIAL PULMONARY DECORTICATION Left 03/09/2021 @THORACOSCOPY, SURG; W PART. DECORTICATION (WRVU 18.78) performed by Navin Khalil MD at [facility] MAIN OR ??? PRO THORACOTOMY, CTRL TRAUMA BLEED Left 03/09/2021 @THORACOTOMY WEXPL,CONTROL BLDNG (WRVU 25.28) performed by Navin Khalil MD at [facility] MAIN OR MEDS: No current facility-administered medications on file prior to encounter. Current Outpatient Medications on File Prior to Encounter Medication Sig Dispense Refill ??? tamsulosin (Flomax) 0.4 mg Capsule Take 1 capsule by mouth daily. 90 tablet 5 ??? betamethasone dipropionate (DIPROLENE) 0.05 % Cream APPLY SMALL AMOUNT EXTERNALLY TO RASH TWICEDAILY FOR NO MORE THAN 2 WEEKS ??? aspirin 81 mg Tablet, Delayed Release (E.C.) TAKE ONE TABLET BY MOUTH EVERY DAY 3 ??? warfarin (COUMADIN) 10 mg tablet ALL: No Known Allergies FHx: No family history on file. SHx: Social History Socioeconomic History ??? Marital status: Spouse name: Not on file ??? Number of children: Not on file ??? Years of education: Not on file ??? Highest education level: Not on file Occupational History ??? 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 Smoking status: Former Smoker Packs/day: 1.00 Years: 18.00 Pack years: 18.00 Quit date: 1983 Years since quittin.1 ??? Smokeless tobacco: Former User Quit date: [...] on file Housing Stability: Not on file ROS: A 10-point review of systems was negative except as noted in HPI. VITALS: Patient Vitals for the past 24 hrs: Temp Heart Rate From SP02 Resp BP SpO2 O2 Device 12/13/21 1535 36.7 ??C (98.1 ??F) 78 bpm 16 125/51 95 % RA 12/13/21 1954 36.4 ??C (97.5 ??F) 75 bpm 18 118/58 96 % RA 12/13/21 2313 36.8 ??C (98.2 ??F) 71 bpm 18 121/65 95 % RA 12/14/21 0336 36.7 ??C (98.1 ??F) 70 bpm 18 113/59 94 % RA 12/14/21 0808 36.5 ??C (97.7 ??F) 72 bpm 18 135/70 96 % RA 12/14/21 1135 36.4 ??C (97.5 ??F) 72 bpm 16 124/70 96 % RA EXAM: Gen: NAD, resting comfortably in chair HEENT: MMM, no scleral icterus CV: HR 70s, irregular Pulm: non labored breathing on room air, coarse breath sounds bilaterally, left chest wall tender to palpation, no crepitus GI/Abd: soft, non distended MSK: extremities warm and well perfused Neuro: no focal deficits Skin: no lesions or rashes noted LABS: Recent Labs 12/14/21 0437 12/13/21 1603 12/13/21 0607 WBC 6.5 8.4 6.9 HGB 12.4* 13.2* 12.4* HCT 36.8* 38.8* 35.8* PLATELET 163 176 155 NEUTROABS 4.80 6.24* 5.10 Recent Labs 12/14/21 0616 12/13/21 0607 12/12/21 0125 NA 138 135 137 K 4.5 4.3 4.2 CL 104 103 101 CO2 22 22 25 BUN 23* 26* 17 CREATININE 0.96 1.06 0.94 Recent Labs 12/14/21 0616 12/13/21 0607 12/12/21 0125 CALCIUM 8.9 8.7 9.2 Recent Labs 12/14/21 0616 12/13/21 0607 12/12/21 0125 GLUCOSE 92 92 96 No results for input(s): AMYLASE, BFAMYLASE in the last 168 hours. Recent Labs 12/14/21 0616 AST 21 ALT 13 ALKPHOS 45 BILITOT 0.7 Recent Labs 12/14/21 0437 12/13/21 0607 12/12/21 1233 INR 1.2 1.4 1.6 PT 14.1* 16.3* 18.2* PTT 100* 33 36 No results for input(s): CK in the last 168 hours. MICRO: Microbiology Results (Last 30 days) Procedure Component Value Units Date/Time COVID-19 PCR [[id number]] Collected: 12/12/21 1400 Lab Status: Final result Specimen: Nasopharyngeal Swab Updated: 12/12/21 1644 SARS-CoV-2 RNA PCR Not Detected Comment: This result should be interpreted in combination with the clinical observations, patient history and epidemiological information. For testing of asymptomatic individuals, assay performance characteristics and clinical utility have not been evaluated. Testing for SARS-CoV-2 (Severe acute respiratory syndrome coronavirus 2, formerly known as 2019 novel coronavirus or 2019-nCoV) to aid in the diagnosis of COVID-19 is performed using the Simplexa COVID-19 Direct Assay by [employer] as authorized by the FDA issued Emergency Use Authorization (EUA). This assay is intended for In-vitro Diagnostic (IVD) use with nasopharyngeal swabs collected from individuals meeting the CDC criteria for testing. The assay is performed based on the instructions for use and additional guidance provided by the FDA. Testing is performed in the Microbiology Laboratory within the Department of Pathology and Laboratory Medicine at [facility], certified under the Clinical Laboratory Improvement Amendments of 1988 (CLIA), 42 U.S.C. section 263a, to perform high complexity tests. Assay performance has been verified according to clinical laboratory regulatory requirements. Test results are provided above. A result of Not Detected indicates that the viral RNA target is not present but does not preclude SARS-CoV-2 infection. False negative results may occur if a specimen is improperly collected, transported or handled; if amplification inhibitors are present; or if inadequate numbers of viral particles are present in the specimen. A result of Detected suggests a current or recent infection and the patient is presumed to be infected. Positive and negative predictive values for this test are highly dependent on disease prevalence. A result of Invalid indicates the inability to conclusively determine the presence or absence of SARS-CoV-2 RNA in the sample which can be due to a variety of factors. Recollection is recommended in the case of an invalid result. CDC COVID-19 criteria for testing on human specimens and clinical management guidance information are available at the CDC Coronavirus Disease 2019 (COVID-19) webpage under Information for Healthcare Professionals (https://www.cdc.gov/coronavirus/2019-ncov/hcp/index.html). 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 2 subcentimeter pleural-based lesion superior segment LEFT lower lobe. Broad-based LEFT lateral parietal density, compatible with a hematoma adjacent to rib fractures. No areas of airspace consolidation. Airways: No endobronchial lesions Pleura: No pleural effusions. Possible loculated LEFT lateral pneumothorax. Lymph nodes: No significant findings. Heart, pericardium, and great vessels: Post aortic and mitral valve replacement. No pericardial effusion Other mediastinal structures: No significant findings. Lower neck: No significant findings. Upper abdomen: Indeterminate ill-defined heterogeneous enhancement of a portion of the RIGHT hepatic lobe. Body wall soft tissues: No significant findings. Skeletal structures: Following LEFT rib fractures: Nondisplaced lateral fifth rib and minimally displaced proximal LEFT rib fracture;, LEFT sixth rib, comminuted laterally minimally displaced medially at costochondral junction; comminuted LEFT lateral seventh rib fracture and minimally displaced medial LEFT seventh rib fracture at costochondral junction; proximally fractured eighth rib with comminuted lateral eighth rib fractures; proximal ninth rib fracture; Proximal 10th rib fracture and lateral 10th rib fracture; proximal 11th rib fracture; distal 12th rib fracture. ?? IMPRESSION: 1. Fractures through LEFT fifth and 12th ribs, as described above. 2. Hemopneumothorax adjacent to rib fractures and LEFT mid lateral lung. 3. No pneumothorax. 4. Superior segment LEFT lower lobe 2.0 cm nodule. New compared to CT from 10/12/2021; recommend close interval follow-up for assessment of stability. 5. Severe bilateral centrilobular emphysematous disease. Correction on impression #2, it should read: 2. Hemothorax adjacent to rib fractures and LEFT mid lateral lung. No pneumothorax ASSESSMENT: London Neri is a 71 y.o. male with a history of AV block s/p pacemaker, atrial fibrillation, AVR/MVR on coumadin, COPD, and prior left thoracoscopic partial decortication with blebectomy and talc pleurodesis for recurrent spontaneous pneumothorax. He was admitted after a mechanical ground level fall sustaining fractures of left ribs 5-12, with associated chest wall hematoma. He is hemodynamically normal and in no distress. He has non labored breathing on room air and reports his pain is tolerable. Of his rib fractures, the 8th rib is displaced. Operative fixation could potentially offer more optimal pain control and bone healing. However, given that his pain is relatively well controlled and considering his comorbidities and anticoagulation, we do not recommend operative fixation at this time. This was discussed in detail with the patient who expressed understanding and agreement with this plan. We do recommend repeat his axial imaging at this time given the presence of a small hematoma adjacent to the 8th rib fracture and his recent re- anticoagulation, to assess and interval change in this hematoma. RECS: ?? No indication for acute surgical intervention ?? Non contrast chest CT to re-evaluate small hemothorax in setting of anticoagulation ?? Please page [phone] at anytime with questions or concerns Yared Barclay MD Thoracic Surgery Service Pager [phone] 12/14/2021 Associated attestation - Srini Aguilar MD - 01/07/2022 1:19 AM EDT I have seen the patient in person and reviewed the resident's above history and I agree with the details as written. The assessment and plan were formulated in discussion with me and I agree with them as documented. Pertinent History: 71y/o male who slipped on some ice and fractured ribs. Pertinent Exam: Older gentleman in NAD. Breathing non-labored. No pedal edema. Major issues addressed: Rib fixation Plan: Risks, benefits, and alternatives discussed with patient and he will consider his options. Wewill continue to follow. Srini Aguilar MD Thoracic Surgery * Care Management - London Ortega RN - 12/13/2021 2:45 PM EST OFFICE OF CARE MANAGEMENT PROGRESS NOTE LOS: Hospital Day 1 day Chart reviewed, care reviewed with primary team and at interdisciplinary rounds. Patient continues to meet inpatient level of care related to: polytrauma Functional status prior to admission: Independent Home Environment: Others in the home: other (see comments) (Pt lives with his spouse during the summer months and alone during the winter months; Spouse currently in [place], planned to return [facility]). Current Living Arrangements: home/apartment/condo (Owns his home consisting of two suites. Pt lives in one suite and rents out the other). Accessibility Concerns: 6 steps to enter residence. once inside, he reports single level living Current Functional Ability: Assistive Person and Equipment DME used at home: none DME Needed at Discharge: Ambulatory Support Needs: Walker - Front Wheeled Provider: [facility] Delivery: In Process Patient is insured through: Primary Insurance: MEDICARE Payor: MEDICARE / Plan: MEDICARE PART A & B / Product Type: *No Product type* / Secondary Insurance: [facility] Prescription Coverage: Yes Preferred Pharmacy: [id number] - [place], [place] - [address] [place] [address] [address] [facility] [id number] Last Physical Therapy Recommendation: home with home health, home with supervision (recommend 24/7 supervision at home and home servicese) with walker, front wheeled (possibly lifeline) Last Occupational Therapy Recommendation: n/a Plan for discharge is: Home w/ Services Home Health Services: Physical Therapy, Occupational Therapy, Registered Nurse Agency Referrals & Follow-up Care: The Patient has been provided a list of Home Health Agencies/DME vendors which serve their preferred geographic area. A letter describing our affiliations was reviewed with them and they were educated about their right to choose where referrals are placed. Patient requests referral to: VNA: [facility]. PHONE: [phone] FAX: [phone] DME: [facility] Expected date of discharge: Referral routed to the [employer] for matching with agency/vendor and to provide any required information. Transportation: family or friend will provide Barriers to discharge: Discharge planning Plan going forward: Anticipate patient to discharge home w/ VNA services when medically ready. FWW order pended. Care Management will continue to follow and assist with discharge planning and coordination of careas indicated. Anticipated Date of Discharge: 12/14/2021 London Ortega RN Case Manager Pgr: [phone] * Initial Assessments - Everardo Beasley MSW - 12/13/2021 11:35 AM EST Office of Care Management Initial Assessment NIRMALA Byrd reviewed record and discussed patient with Care Team. 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 Reason for Hospitalization: I slipped on ice and broke ribs Covid Vaccination Status: 1st, 2nd & booster Last COVID test: Lab Results Component Value Date [id number] Not Detected 12/12/2021 Past medical History: Past Medical History: Diagnosis Date ??? C. difficile colitis ??? COPD (chronic obstructive pulmonary disease) ??? Emphysema of lung ??? Hemorrhoid ??? Pacemaker - dual lead Medtronic 07/29/2020 ??? Pneumothorax on left Hospitalizations Within the Past 30 Days: no previous admission in last 30 days Current Decision-Making Capacity: Self Advance Care Planning: Attempt Cardiopulmonary Resuscitation - Inpatient Received -Advanced Directive: Yes, on file Who is your DPOA-HC?: Spouse (Meredith Villarreal) Current Coping/Education/Information Needs: pt reports understanding of his medical care needs, denies request for any additional information at this time. Current Functional Ability: Assistive Equipment (FWW) Functional Status Prior to Admission: Independent Prior iADLS: Independent with all iADLs Home Environment: Others in the home: other (see comments) (Pt lives with his spouse during the summer months and alone during the winter months; Spouse currently in [place], planned to return [facility]). Current Living Arrangements: home/apartment/condo (Owns his home consisting of two suites. Pt lives in one suite and rents out the other). Accessibility Concerns:6 steps to enter residence. once inside, he reports single level living. Current DME: none Home Address confirmed as: [address] [place] [id number] Social & Family Supports: All names listed below confirmed with patient as current and correct Extended Emergency Contact Information Primary Emergency Contact: Meredith Villarreal [facility] Mobile Relation: Spouse Pt reports that his tenant is available if need be. He also identifies his friend Sebastian Green being available to assist, deliver meals etc. Current Care Provided by: self Provides Primary Care For: no one Caregiver if needed: friend(s) Quality of Family relationships: involved, helpful Community Resources being provided currently: none Behavioral Health History: Denies Substance Use/Abuse confirmed: Social History Tobacco Use Smoking Status Former Smoker ??? Packs/day: 1.00 ??? Years: 18.00 ??? Pack years: 18.00 ??? Quit date: 1983 ??? Years since quittin.1 Smokeless Tobacco Former User In the past year have you used an illegal drug or used a prescription medication for non-medical reaons?: No 0 No problems reported 1-2 Low level 3-5 Moderate level 6-8 Substantial level 9- 10 Severe level In the past year have you had 5 or more drinks a day containing alcohol?: No 0 to 7 points: Low risk 8 to 15 points: Medium risk 16 to 19 points: High risk 20 to 40 points: Addiction likely Other Pertinent/Service Specific Information: na Health/Prescription Coverage: Primary Insurance: MEDICARE Payor: MEDICARE / Plan: MEDICARE PART A & B / Product Type: *No Product type* / Secondary Insurance: [facility] Prescription Coverage: Yes Preferred Pharmacy: [id number] - [place], [place] - [address] AT [address] [facility] [id number] [place] Status: Patient is a : No Primary Care Provider: Linda Vang MD [phone] Patient/Caregiver Goals of Treatment: Address any collateral damage that may be present from my fall Potential Needs for Transition of Care: home health care Agency Referrals: TBD Transportation: no concerns (Pt drives independently) Transportation Anticipated: family or friend will provide (Sebastian Green (friend) vs tenant) Concerns to be Addressed: no discharge needs identified Assessment: Patient is admitted to Trauma service s/p fall on ice and being treated for L 5-12 rib fxs. Pt lives with his spouse during the summer months and alone throughout the winter months (spouse wintering in [facility] - planning to return end of December). Pt owns his home which is set up two suites; tenant lives in the 2nd suite. He reports having a support network consisting of his spouse, friend Sebastian Green and his tenant. Pt reports that either arsenioshivani or Sebastian would be able to transport pt from when MR. He notes that Sebastian would be able to deliver groceries and pt feels confident that he could prepare his meals. Plan: PROPULSION MOTOR AND GENERATOR REPAIRER will remain available to pt throughout his stay and assist with any resources that he mayidentify as beneficial A member of the Care Management team will continue to monitor progress, follow for continuity of care and assist with transition of care planning. NIRMALA Emmanuel Pager: [phone] * Plan of Care - Glenda Kaplan - 12/13/2021 4:59 AM EST OUTCOME EVALUATION NOTE: ?? OUTCOME SUMMARY: Pt is 71 years old. Was admitted 12/12/21 with Ribs fractures left side 5 through 12 from falling onice. Orientated X4. Pulm clear sounds on RA. uses bathroom and urinal check with bladder scan. Pt to be seen by PT, possible discharge after. ?? PLAN MOVING FORWARD: Chest Xray around 0600 ?? INDIVIDUALIZED FALL PREVENTION INTERVENTIONS: ?? Patient-specific fall risk factors per assessment: [current deficits]: weakness, pain ?? Assistance [level of assistance required for transfers and ambulation]: SBA ?? Supervision [direct monitoring required during toileting and ADLs]: IND ?? Surveillance [continuous indirect monitoring]: masimo, room near nursing station, call harris within reach, purposeful rounding ?? Patient-specific fall prevention interventions for sensory deficits provided, if applicable: [X] N/A ? CPG GOAL OUTCOME EVALUATION: ?? * Plan of Care - Lexie Chacon RN - 12/12/2021 4:22 PM EST OUTCOME EVALUATION NOTE: OUTCOME SUMMARY: Patient arrived from the ED around 11:00. A/OX4, VSS, minimal complaints of pain at rest, more withmovement but patient states it is tolerable with scheduled medications. Patient encouraged to use Incentive Spirometer, walking around unit x3. Chest xray ordered for tomorrow, along with repeat coaglabs. PT at bedside to work with patient. Patient resting between care. No further events occurred. Will continue to monitor. PLAN MOVING FORWARD: Repeat chest Xray D/C planning INDIVIDUALIZED FALL PREVENTION INTERVENTIONS: Patient-specific fall risk factors per assessment: [current deficits]: weakness, pain Assistance [level of assistance required for transfers and ambulation]: SBA Supervision [direct monitoring required during toileting and ADLs]: IND Surveillance [continuous indirect monitoring]: masimo, room near nursing station, call harris within reach, purposeful rounding Patient-specific fall prevention interventions for sensory deficits provided, if applicable: [X] N/A CPG GOAL OUTCOME EVALUATION: * Consult Note - Malorie Coon MD - 12/12/2021 1:53 PM EST Reason for consult: cortney Neri is a 71 y.o. gentleman with a history of recurrent spontaneous PTX (s/p L VATs, partial decortication, blebectomy & talc pleurodesis ), atrial fibrillation, prior high gradeAVB status-post dual chamber PPM (2007), and MVR/AVR (1998) anticoagulated with warfarin. Patient is admitted to the trauma service after a ground level fall on ice complicated by left sided rib fractures (5-12) & chest wall hematoma. Cardiology is consulted for recommendations regarding when to restart anticoagualtion for his mechanical valves. Vitals: Patient Vitals for the past 8 hrs: BP Temp Temp src Pulse Resp SpO2 Height Weight 12/12/21 1045 102/47 36.5 ??C (97.7 ??F) Oral -- 14 93 % 185.4 cm (6' 1) 86.2 kg (190 lb) 12/12/21 1039 107/50 -- -- -- -- 95 % -- -- 12/12/21 0945 -- -- -- 60 15 93 % -- -- 12/12/21 0930 -- -- -- 61 19 94 % -- -- 12/12/21 0915 -- -- -- 60 17 97 % -- -- 12/12/21 0900 -- -- -- 60 20 96 % -- -- 12/12/21 0858 -- 36.8 ??C (98.2 ??F) Oral -- -- -- -- -- 12/12/21 0830 -- -- -- 60 18 99 % -- -- 12/12/21 0815 129/62 -- -- 60 19 98 % -- -- 12/12/21 0800 130/67 -- -- 62 19 97 % -- -- 12/12/21 0745 135/63 -- -- 60 20 97 % -- -- 12/12/21 0730 133/59 -- -- 60 20 97 % -- -- 12/12/21 0715 139/75 -- -- 77 22 98 % -- -- Labs Recent Labs 12/12/21 0125 03/13/21 0347 03/12/21 0831 WBC 8.9 13.5* 8.7 HGB 13.2* 8.1* 7.0* HCT 39.0* 24.0* 20.8* PLATELET 183 316 275 Last 3 Lytes Recent Labs 12/12/21 0125 10/12/21 1152 03/11/21 1248 03/10/21 0552 NA 137 -- 140 133* K 4.2 -- 3.9 4.5 CL 101 -- 106 104 CO2 25 -- 23 22 BUN 17 -- 19 18 CREATININE 0.94 0.98 0.93 0.76* Last 3 LFTs No results for input(s): AST, ALT, ALKPHOS, BILITOT, BILIDIR in the last 7068 hours. Last Ca, Mg, Phos Recent Labs 12/12/21 0125 CALCIUM 9.2 Last 3 Coags Recent Labs 12/12/21 1233 PT 18.2* INR 1.6 PTT 36 Last 3 ProBNP, Trop, CK No results for input(s): CK, TROPONINT, PROBNP in the last 168 hours. Exam: Patient resting comfortably in bed, in no actue distress Pleasant and interactive with exam and questioning. Plan: [age] year old gentleman admitted to the Trauma service after a mechanical fall complicated by multiple left sided rib fractures & chest wall hematoma. Cardiology is consulted for recommednatiosn regarding re-initiation of anticoagulation after k-centra administration in the context of subtherapeutic INR this morning. Once stable from a bleeding perspective, given this patients high risk of thrombus with prior mechanical valve, recommend re-initiation of anticoagulation as soon as possible as follows: #Mechanical AVR/MVR - Goal INR 2.5-3.5 - Please start heparin gtt bridge now - Please restart home dose of warfarin: 10 mg QD now - Follow daily INRs - Fine to discontinue heparin once INR is back within therapeutic range Thank you for this interesting consult. We will sign off. Case was discussed with attending Real Estate Investor, Dr. Marquez. Malorie Coon MD PGY4 [employer] Television Program Director 12/12/2021 documented in this encounter Plan of Treatment Not on file documented as of this encounter Procedures Procedure Name Priority Date/Time Associated Diagnosis Comments LAVENDER TUBE HOLD Routine 12/16/2021 6: 22 AM EST HC PARTIAL THROMBOPLASTIN TIME Routine 12/16/2021 6:22 AM EST HC PROTHROMBIN TIME Routine 12/16/2021 6 :22 AM EST COMPREHENSIVE METABOLIC PANEL Routine 12/16/2021 6:22 AM EST HC VENIPUNCTURE STAT 12/15/2021 1:16 PM EST HC UNFRACTIONATED HEPARIN (HEP UFH) Routine 12/15/2021 5:52 AM EST HEMOGRAM Routine 12/15/2021 5:52 AM EST DIFFERENTIAL, AUTOMATED Routine 12/15/19 5:52 AM EST HC PARTIAL THROMBOPLASTIN TIME Routine 12/15/2021 5:52 AM EST HC PROTHROMBIN TIME Routine 12/15/2021 5 :52 AM EST HC CBC,PLT & AUTO DIFF Routine 5:[address] CHEST WO CONTRAST (GENERIC) Routine 12/14/2021 5:11 PM EST COVID-19 PCR Routine 12/14/2021 4:59 PM EST HC VENIPUNCTURE Routine 12/14/2021 6:16 AM EST HC UNFRACTIONATED HEPARIN (HEP UFH) Routine 12/14/2021 4:37 AM EST HEMOGRAM Routine 12/14/2021 4:37 AM EST DIFFERENTIAL, AUTOMATED Routine 12/14/19 4:37 AM EST HC PARTIAL THROMBOPLASTIN TIME Routine 12/14/2021 4:37 AM EST HC VENIPUNCTURE Routine 12/14/2021 4:37 AM EST HC CBC,PLT & AUTO DIFF Routine 4:37 AM EST HC UNFRACTIONATED HEPARIN (HEP UFH) Routine 12/13/2021 10:40 PM EST HC UNFRACTIONATED HEPARIN (HEP UFH) Routine 12/13/2021 4:03 PM EST HEMOGRAM Routine 12/13/2021 4:03 PM EST DIFFERENTIAL, AUTOMATED Routine 12/13/19 4:03 PM EST HC VENIPUNCTURE Routine 12/13/2021 4:03 PM EST XR CHEST PA AND LATERAL Routine 12/13/19 6:36 AM EST HEMOGRAM STAT 12/13/2021 6:07 AM EST DIFFERENTIAL, AUTOMATED STAT 12/13/19 6:07 AM EST HC PARTIAL THROMBOPLASTIN TIME Routine 12/13/2021 6:07 AM EST HC PROTHROMBIN TIME Routine 12/13/2021 6 :07 AM EST HC VENIPUNCTURE STAT 12/13/2021 6:07 AM EST BASIC METABOLIC PANEL STAT 12/13/2021 6:07 AM EST RAPID COVID-19 PCR ([facility]) STAT 12/12/2021 2:00 PM EST HC PARTIAL THROMBOPLASTIN TIME STAT 12/12/2021 12:33 PM EST HC PROTHROMBIN TIME STAT 12/12/2021 1 2:33 PM EST XR CHEST PA AND LATERAL Routine 12/12/19 8:43 AM EST REQUEST FOR 2ND READ CT CHEST STAT 12/12/2021 6:58 AM EST RAPID DRUG SCREEN, URINE STAT 12/12/2021 4:16 AM EST RAPID DRUG SCREEN W/O CONFIRMATION, URINE STAT 12/12/2021 4:16 AM EST URINALYSIS WITH REFLEX CULTURE STAT 12/12/2021 4:[address] LUMBAR SPINE RECONSTRUCTION STAT 12/12/2021 4:[address] HEAD AND CERVICAL SPINE WO CONTRAST STAT 12/12/2021 4:[address] ABDOMEN AND PELVIS W CONTRAST STAT 12/12/2021 4:03 AM EST XR CHEST ONE VIEW STAT 12/12/2021 1:3 2 AM EST HEMOGRAM STAT 12/12/2021 1:25 AM EST DIFFERENTIAL, AUTOMATED STAT 12/12/19 1:25 AM EST GOLD TUBE HOLD STAT 12/12/2021 1:25 AM EST LACTATE, WHOLE BLOOD STAT 12/12/2021 1:25 AM EST HC CBC,PLT & AUTO DIFF STAT 1:25 AM EST HC ALCOHOL, BLOOD STAT 12/12/2021 1:2 5 AM EST BASIC METABOLIC PANEL STAT 12/12/2021 1:25 AM EST TYPE AND SCREEN VALIDITY STAT 12/12/2021 1:24 AM EST ABORH RECHECK STATUS STAT 12/12/2021 1:24 AM EST ABO/RH TYPING STAT 12/12/2021 1:24 AM EST ANTIBODY SCREEN STAT 12/12/2021 1:24 AM EST HC ANTIBODY DETECTION,CAPTURE-R STAT 12/12/2021 1:24 AM EST documented in this encounter Results * XR [...] who have questions please contact the health managed care manager that requested your imaging first. ? Electronically signed by: Marci Martínez MD, [facility] ([phone]), at 12/29/2021 10:15 AM Narrative 12/29/2021 10:15 [...] patients who have questions please contactthe health managed care manager that requested your imaging first. Albina uQach GOLD LAYER IMG DX ORDERABLES * Lavender Tube HOLD (12/16/2021 6:22 AM EST) Lavender Hold Sample in lab. [facility] Blood Venous Draw / Unknown 12/16/2021 6:22 AM EST 12/16/2021 6:56 AM EST Samina DELAROSA HEMATOLOGY ORDERABL ES [facility] [place] [place] [address] * Comprehensive metabolic panel (non-fasting) (12/16/2021 6:22 AM EST) Glucose 91 65 - 199 mg/dL [facility] Comment:Diabetes: >=200 mg/d L plus symptoms Blood Urea Nitrogen 17 10 - 20 mg/dL [facility] Creatinine 0.88 0.80 - 1.50 mg/dL [facility] Sodium 137 135 - 145 mmol/L [facility] Potassium 4.3 3.5 - 5.0 mmol/L [facility] Comment: Please note: ??Patients with WBC >100,000 may have falsely elevated Potassium levels. ??For accurate Potassium quantification in these patients send serum separator tube (gold top) for subsequent determinations. ??Contact the Clinical Chemistry Laboratory if there are any questions. Chloride 102 98 - 107 mmol/L [facility] Carbon Dioxide 23 22 - 31 mmol/L [facility] Anion Gap 12 5 - 15 mmol/L [facility] Calcium 9.1 8.5 - 10.5 mg/dL [facility] Protein, Total 6.6 6.1 - 8.0 g/dL [facility] Albumin 3.9 3.2 - 5.2 g/dL [facility] Aspartate Aminotransferase 18 0 - 39 unit/L [facility] Alanine Aminotransferase 12 0 - 55 unit/L [facility] Alkaline Phosphatase 47 40 - 130 unit/L [facility] Bilirubin, Total 0.8 0.2 - 1.3 mg/dL [facility] Est Glomerular Filtration Rate 86 >=60 mL/min/1. 73 m?? [facility] Comment: This patient? s estimated glomerular filtration rate (eGFR) is between 86 mL/min/1.73 m2 (patients with less muscle mass per kg body weight) and 99 mL/min/1.73 m2 (patients with more muscle mass per kg body weight) as determined by the CKD-EPI equation. Assessment of eGFR is not appropriate when creatinine concentrations are rapidly changing. For clinical decisions where creatinine clearance will affect therapy, a 24-hour urine creatinine clearance may be advised. Assignment of CKD stage 1 - 5 for patients with an eGFR near the transition point between stages may be based on clinical assessment of muscle mass and symptoms in addition to eGFR. Blood 12/16/2021 6:22 AM EST 12/16/2021 6:56 AM EST Narrative Resulting Agency Comment Spec In Lab Harjinder Light MD CHEMISTRY ORDERABLES Performing Organization Address [facility] Phone Number [facility] [place] [address] * (ABNORMAL) APTT (12/16/2021 6:22 AM EST) Partial Thromboplastin Time 44(H) 25 - 37 sec [facility] Comment: The PTT is NOT appropriate for heparin monitoring. Use the Anti-Xa level for heparin monitoring (HEP UFH) or LMWH monitoring (HEP LMW). A PTT less than 37 seconds generally indicates adequate hemostasis. Blood 12/16/2021 6:22 AM EST 12/16/2021 6:56 AM EST Narrative Resulting Agency Comment Spec In Lab Carlos Manuel Dodson MD HEMATOLOGY ORDERABL ES Performing Organization Address [facility] Phone Number [facility] [place] [address] * (ABNORMAL) Prothrombin Time (12/16/2021 6:22 AM EST) Prothrombin Time 27.1(H) 9.4 - 12.5 sec [facility] International Normalization Ratio 2.4 [facility] Comment: An INR <2.0 indicates adequate procoagulant activity for hemostasis in most patients without underlying bleeding disorders, though the INR may not adequately reflect hemostatic capacity in patients with liver disease and synthetic impairment. The recommended target INR range for therapeutic anticoagulation is 2.0 ? 3.0 for most applications, though lower and higher ranges may be appropriate depending on clinical circumstances. Blood 12/16/2021 6:22 AM EST 12/16/2021 6:56 AM EST Narrative Resulting Agency Comment Spec In Lab Carlos Manuel Dodson MD HEMATOLOGY ORDERABL ES Performing Organization Address City/[facility]/ZIP Co de Phone Number [facility] [place] [address] * Heparin (unfractionated) Level (12/15/2021 1:16 PM EST) UF Heparin 0.72 IU/mL [facility] Comment: Heparin (anti-Xa) levels should be determined in a plasma sample that has been drawn 6 hours after a dose change to approximate steady-state for continuous heparin infusions. Indication specific Heparin (anti-Xa) levels based on order set selection: Acute DVT or PE treatment: 0.3 ? 0.7 IU/mL Thrombosis Prevention (eg. atrial fibrillation, frantz-procedural bridging, mechanical valves): 0.3 ? 0.7 IU/mL Acute Coronary Syndrome: 0.3 ? 0.7 IU/mL Stroke Indications: 0.3 ? 0.5 IU/mL Ultra-low intensity (select indications in cardiac surgery): 0.1 ? 0.3 IU/mL Blood 12/15/2021 1:16 PM EST 12/15/2021 1:23 PM EST Narrative Resulting Agency Comment Spec In Lab Harjinder Light MD HEMATOLOGY ORDERABLE S Performing Organization Address [facility]/ZIP Co de Phone Number [facility] [place] [address] * Heparin (unfractionated) Level (12/15/2021 5:52 AM EST) UF Heparin 0.83 IU/mL [facility] Comment: Heparin (anti-Xa) levels should be determined in a plasma sample that has been drawn 6 hours after a dose change to approximate steady-state for continuous heparin infusions. Indication specific Heparin (anti-Xa) levels based on order set selection: Acute DVT or PE treatment: 0.3 ? 0.7 IU/mL Thrombosis Prevention (eg. atrial fibrillation, frantz-procedural bridging, mechanical valves): 0.3 ? 0.7 IU/mL Acute Coronary Syndrome: 0.3 ? 0.7 IU/mL Stroke Indications: 0.3 ? 0.5 IU/mL Ultra-low intensity (select indications in cardiac surgery): 0.1 ? 0.3 IU/mL Blood 12/15/2021 5:52 AM EST 12/15/2021 6:16 AM EST Narrative Resulting Agency Comment Spec In Lab Carlos Manuel Dodson MD HEMATOLOGY ORDERABL ES [facility] [place] [address] * Differential, Automated (12/15/2021 5:52 AM EST) Neutrophil % 67.8 % [facility] Neutrophil Absolute 3.93 1.70 - 6.10 x10(3)/[facility] Lymph % 17.3 % [facility] Lymphocytes Abs 1.0 0.9 - 3.2 x10(3)/[facility] Monocyte % 11.7 % [facility] Monocyte Abs 0.7 0.3 - 0.9 x10(3)/[facility] Eos % 2.1 % [facility] Eosinophils Abs 0.1 0.0 - 0.4 x10(3)/[facility] Basophil % 0.9 % [facility] Baso Absolute 0.0 0.0 - 0.1 x10(3)/[facility] Immature Gran % 0.20 % [facility] Comment: Immature granulocytes(IG's)percentage and absolute count will include metamyelocytes, myelocytes, and promyelocytes. Blood smears from CBCs yielding IG's will be scanned manually for concordance. If this scan disagrees with the automated IG or if promyelocytes are noted, a manual differential will be performed. Immature Gran Absolute 0.01 0.00 - 0.04 x10(3)/[facility] Blood 12/15/2021 5:52 AM EST 12/15/2021 6:16 AM EST Narrative Resulting Agency Comment Spec In Lab Samina DELAROSA HEMATOLOGY ORDERABL ES [facility] [place] [address] * (ABNORMAL) Hemogram (12/15/2021 5:52 AM EST) White Blood Cell 5.8 4.0 - 9.5 x10(3)/mc L [facility] Red Blood Cell 4.12(L) 4.58 - 5.54 x10(6)/mc L [facility] Hemoglobin 12.4(L) 13.7 - 16.5 g/dL [facility] Hematocrit 36.6(L) 40.5 - 48.5 % [facility] Mean Cell Volume 88.8 82.9 - 93.1 fL [facility] Mean Cell Hemoglobin 30.1 27.5 - 32.1 pg [facility] Mean Cell Hemoglobin Concentration 33.9 32.0 - 35.7 g/dL [facility] Platelet 176 145 - 357 x10(3)/mc L [facility] RDW Standard Deviation 44.3 36.0 - 45.0 [facility] RDW coefficient of variation 13.7 11.4 - 13.8 % [facility] Mean Platelet Volume 10.2 7.6 - 12.9 [facility] NRBC% auto 0.0 % [facility] NRBC Absolute 0.000 0.000 - 0.000 x10(3)/mc L [facility] Blood 12/15/2021 5:52 AM EST 12/15/2021 6:16 AM EST Narrative Resulting Agency Comment Spec In Lab Samina DELAROSA HEMATOLOGY ORDERABL ES [facility] [place] [address] * (ABNORMAL) APTT (12/15/2021 5:52 AM EST) Partial Thromboplastin Time >160(Crit ical) 25 - 37 sec [facility] Comment: Critical Result called by ?? [facility] Results read back by: ? Willi Anderson at 2021-12-15 06:56:33 The PTT is NOT appropriate for heparin monitoring. Use the Anti-Xa level for heparin monitoring (HEP UFH) or LMWH monitoring (HEP LMW). A PTT less than 37 seconds generally indicates adequate hemostasis. Blood 12/15/2021 5:52 AM EST 12/15/2021 6:16 AM EST Narrative Resulting Agency Comment Spec In Lab Carlos Manuel Dodson MD HEMATOLOGY ORDERABL ES Performing Organization Address [facility] Co de Phone Number [facility] [place] [address] * (ABNORMAL) Prothrombin Time (12/15/2021 5:52 AM EST) Prothrombin Time 19.6(H) 9.4 - 12.5 sec [facility] International Normalization Ratio 1.7 [facility] Comment: An INR <2.0 indicates adequate procoagulant activity for hemostasis in most patients without underlying bleeding disorders, though the INR may not adequately reflect hemostatic capacity in patients with liver disease and synthetic impairment. The recommended target INR range for therapeutic anticoagulation is 2.0 ? 3.0 for most applications, though lower and higher ranges may be appropriate depending on clinical circumstances. Blood 12/15/2021 5:52 AM EST 12/15/2021 6:16 AM EST Narrative Resulting Agency Comment Spec In Lab Carlos Manuel Dodson MD HEMATOLOGY ORDERABL ES Performing Organization Address City/[facility]/ZIP Co de Phone Number [facility] [place] [address] * CT Chest wo Contrast (Generic) (12/14/2021 5:11 PM EST) Anatomical Region Laterality Modality Chest Computed Tomogra phy 12/14/2021 5:27 PM EST Impressions 12/15/2021 9:21 AM EST 1. ??Slight progression of of loculated hemothorax. New components are located medially and at the base. 2. ??A 1.6 cm posterior pleural based superior segment left lower lobe nodule is new compared to 10/12/2021 CT. Given rapid development, a nonneoplastic etiology such as extension of pleural blood products or infection/inflammation is favored. However, given the patient's risk factors a follow-up noncontrast CT in 3-6 months is recommended to assess for persistence or resolution. 3. ??Severe emphysema. 4. ??Unchanged left-sided partially and completely displaced rib fractures involving the left fourth through 12th ribs. Greatest displacement at the left lateral eighth rib. I have personally reviewed the image(s) and the resident's interpretation and agree with the findings, Rayna Kiser MD at 12/15/2021 9:21 AM Thank you for letting us participate in the care of this patient. ??If you are a health care provider and have any questions regarding this report, please contact the number below. ??For patients who have questions please contact the health managed care manager that requested your imaging first. ? Narrative 12/15/2021 9:21 AM EST EXAMINATION: CT CHEST WO CONTRAST (GENERIC) CLINICAL HISTORY: Chest trauma, blunt s/p fall, now w/L hemothorax and rib fx, AC started, ? interval changes TECHNIQUE: 3.75 mm thick axial contiguous sections were obtained through the chest via helical acquisition without intravenous contrast administration. Thin-section reconstructions as well as coronal and sagittal reformatted images were generated. COMPARISON: Chest CT 12/11/2021 and 10/12/2021 FINDINGS: Pulmonary parenchyma: Severe centrilobular and paraseptal emphysema with biapical fibrobullous disease. A 1.8 cm pleural-based nodule at the left lung superior segment left lower lobe is stable compared to most recent prior and new compared to 10/12/2021. Biapical scarring. Airways: New dependent mucus in the right mainstem bronchus. Remaining airways are patent and normal in caliber. Pleura: Mildly progressed, loculated left hemothorax medially and at the base with interval evolution of blood products. The largest component is again located laterally deep to the displaced left eighth rib fracture. Calcifications along the parietal pleura and displaced visceral pleura are favored to represent sequela of prior pleurodesis. No pneumothorax. Lymph nodes: No pathologically enlarged lymph nodes. Heart, pericardium, and great vessels: Stable cardiomegaly with left atrial enlargement. No pericardial effusion. Prosthetic mitral and aortic valves again noted. Left chest wall pulse generator with intact leads in the right atrium and right ventricle. Nondilated thoracic aorta with moderate atherosclerotic calcification. Moderate left anterior descending coronary artery atherosclerotic calcification. Other mediastinal structures: Small hiatal hernia. Lower neck: No significant findings. Upper abdomen: No significant findings. Body wall soft tissues: Small superficial fat stranding overlying the inferolateral left ribs Skeletal structures: Unchanged left-sided partially and completely displaced rib fractures involving the left fourth through 12th ribs. Greatest displacement at the left lateral eighth rib as above. Chronic right-sided rib fractures. Procedure Note Rayna Kiser MD - 12/15/2021 EXAMINATION: CT CHEST WO CONTRAST (GENERIC) CLINICAL HISTORY: Chest trauma, blunt s/p fall, now w/L hemothorax and rib fx, AC started, ? interval changes TECHNIQUE: 3.75 mm thick axial contiguous sections were obtained throughthe chest via helical acquisition without intravenous contrastadministration. Thin-section reconstructions as well as coronal and sagittal reformattedimages were generated. COMPARISON: Chest CT 12/11/2021 and 10/12/2021 FINDINGS: Pulmonary parenchyma: Severe centrilobular and paraseptal emphysema with biapical fibrobullous disease. A 1.8 cm pleural-based nodule at the leftlung superior segment left lower lobe is stable compared to most recent priorand new compared to 10/12/2021. Biapical scarring. Airways: New dependent mucus in the right mainstem bronchus. Remainingairways are patent and normal in caliber. Pleura: Mildly progressed, loculated left hemothorax medially and at thebase with interval evolution of blood products. The largest component isagain located laterally deep to the displaced left eighth rib fracture.Calcifications along the parietal pleura and displaced visceral pleura are favored torepresent sequela of prior pleurodesis. No pneumothorax. Lymph nodes: No pathologically enlarged lymph nodes. Heart, pericardium, and great vessels: Stable cardiomegaly with leftatrial enlargement. No pericardial effusion. Prosthetic mitral and aortic valvesagain noted. Left chest wall pulse generator with intact leads in the rightatrium and right ventricle. Nondilated thoracic aorta with moderate atherosclerotic calcification. Moderate left anterior descending coronary arteryatherosclerotic calcification. Other mediastinal structures: Small hiatal hernia. Lower neck: No significant findings. Upper abdomen: No significant findings. Body wall soft tissues: Small superficial fat stranding overlying the inferolateral left ribs Skeletal structures: Unchanged left-sided partially and completelydisplaced rib fractures involving the left fourth through 12th ribs. Greatestdisplacement at the left lateral eighth rib as above. Chronic right-sided rib fractures. IMPRESSION 1. Slight progression of of loculated hemothorax. New components arelocated medially and at the base. 2. A 1.6 cm posterior pleural based superior segment left lower lobenodule is new compared to 10/12/2021 CT. Given rapid development, a nonneoplasticetiology such as extension of pleural blood products or infection/inflammation is favored. However, given the patient's risk factors a follow-up noncontrastCT in 3-6 months is recommended to assess for persistence or resolution. 3. Severe emphysema. 4. Unchanged left-sided partially and completely displaced ribfractures involving the left fourth through 12th ribs. Greatest displacement at theleft lateral eighth rib. I have personally reviewed the image(s) and the resident's interpretationand agree with the findings, Rayna Kiser MD at 12/15/2021 9:21 AM Thank you for letting us participate in the care of this patient. If youare a health care provider and have any questions regarding this report,please contact the number below. For patients who have questions please contactthe health managed care manager that requested your imaging first. Harjinder Light MD IMG CT ORDERABLES * COVID-19 PCR (12/14/2021 4:59 PM EST) SARS-CoV-2 RNA Not Detected Not Detected [facility] Comment: This result should be interpreted in combination with the clinical observations, patient history and epidemiological information in making a final diagnosis. For testing of asymptomatic individuals, assay performance characteristics and clinical utility have not been evaluated. Testing for SARS-CoV-2 (Severe acute respiratory syndrome coronavirus 2, formerly known as 2019 novel coronavirus or 2019-nCoV) to aid in the diagnosis of COVID-19 is performed using the [employer] m SARS-CoV-2 Assay as authorized by the FDA Emergency Use Authorization (EUA). This EUA assay is intended for In-vitro Diagnostic (IVD) use with respiratory specimens such as nasopharyngeal swabs collected from individuals during the acute phase of infection. This assay is performed based on the instructions for use provided by [employer] and additional guidance provided by CDC and FDA. Testing is performed in the [facility] within the Department of Pathology and Laboratory Medicine at [facility], certified under the Clinical Laboratory Improvement Amendments of 1988 (CLIA), 42 U.S.C. 263a, to perform high complexity tests. Assay performance has been verified according to clinical laboratory regulatory requirements for use with specimens collected from individuals suspected of COVID-19. Test results are provided above. A result of Not Detected indicates that the viral RNA target is not present above the limit of detection, but does not preclude SARS-CoV-2 infection. False negative results may occur if a specimen is improperly collected, transported or handled; if amplification inhibitors are present; or if inadequate numbers of viral particles are present in the specimen. When a diagnostic test is negative, the possibility of a false negative result should be considered in the context of a patient's recent exposures and the presence of clinical signs and symptoms consistent with COVID-19. A result of Detected indicates that RNA from SARS-CoV-2 was detected and the patient is infected. As required or requested by public health authorities, positive specimens may be sent for additional testing. Positive and negative predictive values for this test are highly dependent on disease prevalence. A result of Invalid indicates that neither the viral RNA targets nor the internal control target was detected. An invalid result suggests the presence of inhibitors. Recollection and re-testing is recommended in the case of an invalid result. CDC COVID-19 criteria for testing on human specimens and clinical management guidance information are available at the CDC Coronavirus Disease 2019 (COVID-19) webpage under Information for Healthcare Professionals (https://www.cdc.gov/coronavirus/2019-ncov/hcp/index.html) Additional information about this and other EUA tests can be found in provider and patient fact sheets at the following FDA website: https://www.fda.gov/medical-devices/euksyqqkdgf-qcwrueb-6661-shcak-29-pytcifliq- use-a twhdukqmocccp-mkifkpn-hedvwmy/kafbg-resinlsiwsf-uvaj SARS-CoV-2 RNA Source [employer] Swab [facility] Nasopharyngeal Swab 12/14/19 4:59 PM EST 12/14/2021 6:17 PM EST Comment:Symptoms->Surveillan ce Narrative Resulting Agency Comment Spec In Lab Harjinder Light MD MOLECULAR ORDERABLES [facility] [place] [address] * (ABNORMAL) Comprehensive metabolic panel (non-fasting) (12/14/2021 6:16 AM EST) Glucose 92 65 - 199 mg/dL [facility] Comment:Diabetes: >=200 mg/d L plus symptoms Blood Urea Nitrogen 23(H) 10 - 20 mg/dL [facility] Creatinine 0.96 0.80 - 1.50 mg/dL [facility] Sodium 138 135 - 145 mmol/L [facility] Potassium 4.5 3.5 - 5.0 mmol/L [facility] Comment: Please note: ??Patients with WBC >100,000 may have falsely elevated Potassium levels. ??For accurate Potassium quantification in these patients send serum separator tube (gold top) for subsequent determinations. ??Contact the Clinical Chemistry Laboratory if there are any questions. Chloride 104 98 - 107 mmol/L [facility] Carbon Dioxide 22 22 - 31 mmol/L [facility] Anion Gap 12 5 - 15 mmol/L [facility] Calcium 8.9 8.5 - 10.5 mg/dL [facility] Protein, Total 6.3 6.1 - 8.0 g/dL [facility] Albumin 3.8 3.2 - 5.2 g/dL [facility] Aspartate Aminotransferase 21 0 - 39 unit/L [facility] Alanine Aminotransferase 13 0 - 55 unit/L [facility] Alkaline Phosphatase 45 40 - 130 unit/L [facility] Bilirubin, Total 0.7 0.2 - 1.3 mg/dL [facility] Est Glomerular Filtration Rate 79 >=60 mL/min/1. 73 m?? [facility] Comment: This patient? s estimated glomerular filtration rate (eGFR) is between 79 mL/min/1.73 m2 (patients with less muscle mass per kg body weight) and 91 mL/min/1.73 m2 (patients with more muscle mass per kg body weight) as determined by the CKD-EPI equation. Assessment of eGFR is not appropriate when creatinine concentrations are rapidly changing. For clinical decisions where creatinine clearance will affect therapy, a 24-hour urine creatinine clearance may be advised. Assignment of CKD stage 1 - 5 for patients with an eGFR near the transition point between stages may be based on clinical assessment of muscle mass and symptoms in addition to eGFR. Blood 12/14/2021 6:16 AM EST 12/14/2021 7:47 AM EST Narrative Resulting Agency Comment Spec In Lab Harjinder Light MD CHEMISTRY ORDERABLES [facility] [place] [id number] * Heparin (unfractionated) Level (12/14/2021 4:37 AM EST) [facility] UF Heparin 0.61 IU/mL [facility] Comment: Heparin (anti-Xa) levels should be determined in a plasma sample that has been drawn 6 hours after a dose change to approximate steady-state for continuous heparin infusions. Indication specific Heparin (anti-Xa) levels based on order set selection: Acute DVT or PE treatment: 0.3 ? 0.7 IU/mL Thrombosis Prevention (eg. atrial fibrillation, frantz-procedural bridging, mechanical valves): 0.3 ? 0.7 IU/mL Acute Coronary Syndrome: 0.3 ? 0.7 IU/mL Stroke Indications: 0.3 ? 0.5 IU/mL Ultra-low intensity (select indications in cardiac surgery): 0.1 ? 0.3 IU/mL Blood 12/14/2021 4:37 AM EST 12/14/2021 4:46 AM EST Narrative Resulting Agency Comment Spec In Lab Carlos Manuel Dodson MD HEMATOLOGY ORDERABL ES [facility] [place] [address] * (ABNORMAL) Differential, Automated (12/14/2021 4:37 AM EST) [facility] Neutrophil % 73.5 % [facility] Neutrophil Absolute 4.80 1.70 - 6.10 x10(3)/mc L [facility] Lymph % 12.7 % [facility] Lymphocytes Abs 0.8(L) 0.9 - 3.2 x10(3)/mc L [facility] Monocyte % 9.8 % [facility] Monocyte Abs 0.6 0.3 - 0.9 x10(3)/mc L [facility] Eos % 2.8 % [facility] Eosinophils Abs 0.2 0.0 - 0.4 x10(3)/mc L [facility] Basophil % 0.9 % [facility] Baso Absolute 0.1 0.0 - 0.1 x10(3)/ L [facility] Immature Gran % 0.30 % [facility] Comment: Immature granulocytes(IG's)percentage and absolute count will include metamyelocytes, myelocytes, and promyelocytes. Blood smears from CBCs yielding IG's will be scanned manually for concordance. If this scan disagrees with the automated IG or if promyelocytes are noted, a manual differential will be performed. Immature Gran Absolute 0.02 0.00 - 0.04 x10(3)/ L [facility] Blood 12/14/2021 4:37 AM EST 12/14/2021 4:46 AM EST Narrative Resulting Agency Comment Spec In Lab Samina DELAROSA HEMATOLOGY ORDERABL ES [facility] [place] [address] * (ABNORMAL) Hemogram (12/14/2021 4:37 AM EST) White Blood Cell 6.5 4.0 - 9.5 x10(3)/[facility] Red Blood Cell 4.10(L) 4.58 - 5.54 x10(6)/ L [facility] Hemoglobin 12.4(L) 13.7 - 16.5 g/dL [facility] Hematocrit 36.8(L) 40.5 - 48.5 % [facility] Mean Cell Volume 89.8 82.9 - 93.1 fL [facility] Mean Cell Hemoglobin 30.2 27.5 - 32.1 pg [facility] Mean Cell Hemoglobin Concentration 33.7 32.0 - 35.7 g/dL [facility] Platelet 163 145 - 357 x10(3)/ L [facility] RDW Standard Deviation 44.5 36.0 - 45.0 fL [facility] RDW coefficient of variation 13.5 11.4 - 13.8 % [facility] Mean Platelet Volume 10.1 7.6 - 12.9 fL [facility] NRBC% auto 0.0 % [facility] NRBC Absolute 0.000 0.000 - 0.000 x10(3)/mc L [facility] Blood 12/14/2021 4:37 AM EST 12/14/2021 4:46 AM EST Narrative Resulting Agency Comment Spec In Lab Samina DELAROSA HEMATOLOGY ORDERABL ES Performing Organization Address [facility] Co de Phone Number [facility] [place] [address] * (ABNORMAL) APTT (12/14/2021 4:37 AM EST) Partial Thromboplastin Time 100(H) 25 - 37 sec [facility] Comment: The PTT is NOT appropriate for heparin monitoring. Use the Anti-Xa level for heparin monitoring (HEP UFH) or LMWH monitoring (HEP LMW). A PTT less than 37 seconds generally indicates adequate hemostasis. Blood 12/14/2021 4:37 AM EST 12/14/2021 4:46 AM EST Narrative Resulting Agency Comment Spec In Lab Carlos Manuel Dodson MD HEMATOLOGY ORDERABL ES Performing Organization Address [facility] Co de Phone Number [facility] [place] [address] * (ABNORMAL) Prothrombin Time (12/14/2021 4:37 AM EST) Prothrombin Time 14.1(H) 9.4 - 12.5 sec [facility] International Normalization Ratio 1.2 [facility] Comment: An INR <2.0 indicates adequate procoagulant activity for hemostasis in most patients without underlying bleeding disorders, though the INR may not adequately reflect hemostatic capacity in patients with liver disease and synthetic impairment. The recommended target INR range for therapeutic anticoagulation is 2.0 ? 3.0 for most applications, though lower and higher ranges may be appropriate depending on clinical circumstances. Blood 12/14/2021 4:37 AM EST 12/14/2021 4:46 AM EST Narrative Resulting Agency Comment Spec In Lab Carlos Manuel Dodson MD HEMATOLOGY ORDERABL ES Performing Organization Address [facility] de Phone Number [facility] [place] [address] * Heparin (unfractionated) Level (12/13/2021 10:40 PM EST) UF Heparin 0.40 IU/mL [facility] Comment: Heparin (anti-Xa) levels should be determined in a plasma sample that has been drawn 6 hours after a dose change to approximate steady-state for continuous heparin infusions. Indication specific Heparin (anti-Xa) levels based on order set selection: Acute DVT or PE treatment: 0.3 ? 0.7 IU/mL Thrombosis Prevention (eg. atrial fibrillation, frantz-procedural bridging, mechanical valves): 0.3 ? 0.7 IU/mL Acute Coronary Syndrome: 0.3 ? 0.7 IU/mL Stroke Indications: 0.3 ? 0.5 IU/mL Ultra-low intensity (select indications in cardiac surgery): 0.1 ? 0.3 IU/mL Blood 12/13/2021 10:4 0 PM EST 12/13/2021 10:45 PM EST Narrative Resulting Agency Comment Spec In Lab Carlos Manuel Dodson MD HEMATOLOGY ORDERABL ES Performing Organization Address [facility] de Phone Number [facility] [place] [address] * Heparin (unfractionated) Level (12/13/2021 4:03 PM EST) UF Heparin <0.04 IU/mL [facility] Comment: Heparin (anti-Xa) levels should be determined in a plasma sample that has been drawn 6 hours after a dose change to approximate steady-state for continuous heparin infusions. Indication specific Heparin (anti-Xa) levels based on order set selection: Acute DVT or PE treatment: 0.3 ? 0.7 IU/mL Thrombosis Prevention (eg. atrial fibrillation, frantz-procedural bridging, mechanical valves): 0.3 ? 0.7 IU/mL Acute Coronary Syndrome: 0.3 ? 0.7 IU/mL Stroke Indications: 0.3 ? 0.5 IU/mL Ultra-low intensity (select indications in cardiac surgery): 0.1 ? 0.3 IU/mL Blood 12/13/2021 4:03 PM EST 12/13/2021 4:19 PM EST Narrative Resulting Agency Comment Spec In Lab Carlos Manuel Dodson MD HEMATOLOGY ORDERABL ES [facility] [place] [address] * (ABNORMAL) Differential, Automated (12/13/2021 4:03 PM EST) Neutrophil % 74.7 % [facility] Neutrophil Absolute 6.24(H) 1.70 - 6.10 x10(3)/mc L [facility] Lymph % 12.1 % [facility] Lymphocytes Abs 1.0 0.9 - 3.2 x10(3)/mc L [facility] Monocyte % 10.0 % [facility] Monocyte Abs 0.8 0.3 - 0.9 x10(3)/mc L [facility] Eos % 1.9 % [facility] Eosinophils Abs 0.2 0.0 - 0.4 x10(3)/mc L [facility] Basophil % 0.7 % [facility] Baso Absolute 0.1 0.0 - 0.1 x10(3)/mc L [facility] Immature Gran % 0.60 % [facility] Comment: Immature granulocytes(IG's)percentage and absolute count will include metamyelocytes, myelocytes, and promyelocytes. Blood smears from CBCs yielding IG's will be scanned manually for concordance. If this scan disagrees with the automated IG or if promyelocytes are noted, a manual differential will be performed. Immature Gran Absolute 0.05(H) 0.00 - 0.04 x10(3)/ L [facility] Blood 12/13/2021 4:03 PM EST 12/13/2021 4:19 PM EST Narrative Resulting Agency Comment Spec In Lab Samina DELAROSA HEMATOLOGY ORDERABL ES [facility] [place] [address] * (ABNORMAL) Hemogram (12/13/2021 4:03 PM EST) White Blood Cell 8.4 4.0 - 9.5 x10(3)/[facility] Red Blood Cell 4.38(L) 4.58 - 5.54 x10(6)/[facility] Hemoglobin 13.2(L) 13.7 - 16.5 g/dL [facility] Hematocrit 38.8(L) 40.5 - 48.5 % [facility] Mean Cell Volume 88.6 82.9 - 93.1 [facility] Mean Cell Hemoglobin 30.1 27.5 - 32.1 pg [facility] Mean Cell Hemoglobin Concentration 34.0 32.0 - 35.7 g/dL [facility] Platelet 176 145 - 357 x10(3)/[facility] RDW Standard Deviation 43.9 36.0 - 45.0 [facility] RDW coefficient of variation 13.4 11.4 - 13.8 % [facility] Mean Platelet Volume 10.2 7.6 - 12.9 [facility] NRBC% auto 0.0 % [facility] NRBC Absolute 0.000 0.000 - 0.000 x10(3)/ L [facility] Blood 12/13/2021 4:03 PM EST 12/13/2021 4:19 PM EST Narrative Resulting Agency Comment Spec In Lab Samina Tea DELAROSA HEMATOLOGY ORDERABL ES [facility] [place] [address] * XR Chest PA & Lateral (Generic) (12/13/2021 6:36 AM EST) Anatomical Region Laterality Modality Chest N/A Digital Radiogra phy Impressions 12/13/2021 8:16 AM EST Loculated subpleural fluid versus extrapleural hematoma, as before, projecting by lateral left mid hemithorax/ displaced lateral left eighth rib fracture. Thank you for letting us participate in the care of this patient. ??If you are a health care provider and have any questions regarding this report, please contact the number below. ??For patients who have questions please contact the health managed care manager that requested your imaging first. ? Narrative 12/13/2021 8:16 AM EST EXAMINATION: XR CHEST PA AND LATERAL (GENERIC) CLINICAL HISTORY: s/p fall, now w/ rib fractures, interval change, ? pleural effusion TECHNIQUE: PA and lateral views of the chest. COMPARISON: 12/12/2021 at 0844 hours. FINDINGS: Pacemaker lead tips, aortic and mitral prostheses, and intact sternotomy wires, as before. Similar to prior is bilobed loculated subpleural fluid versus extrapleural hematoma projecting by the lateral left mid hemithorax. No pneumothorax is seen. Greater than one shaft width displacement by lateral left eighth rib. Emphysematous changes at the lung apices, as before. Procedure Note Malika Thayer MD - 12/13/2021 EXAMINATION: XR CHEST PA AND LATERAL (GENERIC) CLINICAL HISTORY: s/p fall, now w/ rib fractures, interval change, ?pleural effusion TECHNIQUE: PA and lateral views of the chest. COMPARISON: 12/12/2021 at 0844 hours. FINDINGS: Pacemaker lead tips, aortic and mitral prostheses, and intact sternotomy wires, as before. Similar to prior is bilobed loculatedsubpleural fluid versus extrapleural hematoma projecting by the lateral left mid hemithorax. No pneumothorax is seen. Greater than one shaft widthdisplacement by lateral left eighth rib. Emphysematous changes at the lung apices, asbefore. IMPRESSION Loculated subpleural fluid versus extrapleural hematoma, as before,projecting by lateral left mid hemithorax/ displaced lateral left eighth ribfracture. Thank you for letting us participate in the care of this patient. If youare a health care provider and have any questions regarding this report,please contact the number below. For patients who have questions please contactthe health managed care manager that requested your imaging first. Carlos Manuel Dodson MD IMG DX ORDERABLES * (ABNORMAL) Differential, Automated (12/13/2021 6:07 AM EST) Neutrophil % 73.8 % [facility] Neutrophil Absolute 5.10 1.70 - 6.10 x10(3)/mc L [facility] Lymph % 11.3 % [facility] Lymphocytes Abs 0.8(L) 0.9 - 3.2 x10(3)/mc L [facility] Monocyte % 11.8 % [facility] Monocyte Abs 0.8 0.3 - 0.9 x10(3)/mc L [facility] Eos % 2.3 % [facility] Eosinophils Abs 0.2 0.0 - 0.4 x10(3)/mc L [facility] Basophil % 0.4 % [facility] Baso Absolute 0.0 0.0 - 0.1 x10(3)/[facility] Immature Gran % 0.40 % [facility] Comment: Immature granulocytes(IG's)percentage and absolute count will include metamyelocytes, myelocytes, and promyelocytes. Blood smears from CBCs yielding IG's will be scanned manually for concordance. If this scan disagrees with the automated IG or if promyelocytes are noted, a manual differential will be performed. Immature Gran Absolute 0.03 0.00 - 0.04 x10(3)/[facility] Blood 12/13/2021 6:07 AM EST 12/13/2021 6:42 AM EST Narrative Resulting Agency Comment Spec In Lab Collin Verma MD HEMATOLOGY ORDERABLE S Performing Organization Address City/State/[facility] Co de Phone Number [facility] [place] [address] * (ABNORMAL) Hemogram (12/13/2021 6:07 AM EST) White Blood Cell 6.9 4.0 - 9.5 x10(3)/[facility] Red Blood Cell 4.02(L) 4.58 - 5.54 x10(6)/[facility] Hemoglobin 12.4(L) 13.7 - 16.5 g/dL [facility] Hematocrit 35.8(L) 40.5 - 48.5 % [facility] Mean Cell Volume 89.1 82.9 - 93.1 fL [facility] Mean Cell Hemoglobin 30.8 27.5 - 32.1 pg [facility] Mean Cell Hemoglobin Concentration 34.6 32.0 - 35.7 g/dL [facility] Platelet 155 145 - 357 x10(3)/[facility] RDW Standard Deviation 44.3 36.0 - 45.0 fL [facility] RDW coefficient of variation 13.6 11.4 - 13.8 % [facility] Mean Platelet Volume 10.4 7.6 - 12.9 fL [facility] NRBC% auto 0.0 % [facility] NRBC Absolute 0.000 0.000 - 0.000 x10(3)/mc L [facility] Blood 12/13/2021 6:07 AM EST 12/13/2021 6:42 AM EST Narrative Resulting Agency Comment Spec In Lab Collin Verma MD HEMATOLOGY ORDERABLE S Performing Organization Address [facility] Co de Phone Number [facility] [place] [address] * (ABNORMAL) Prothrombin Time (12/13/2021 6:07 AM EST) Prothrombin Time 16.3(H) 9.4 - 12.5 sec [facility] International Normalization Ratio 1.4 [facility] Comment: An INR <2.0 indicates adequate procoagulant activity for hemostasis in most patients without underlying bleeding disorders, though the INR may not adequately reflect hemostatic capacity in patients with liver disease and synthetic impairment. The recommended target INR range for therapeutic anticoagulation is 2.0 ? 3.0 for most applications, though lower and higher ranges may be appropriate depending on clinical circumstances. Blood 12/13/2021 6:07 AM EST 12/13/2021 6:42 AM EST Narrative Resulting Agency Comment Spec In Lab Carlos Manuel Dodson MD HEMATOLOGY ORDERABL ES Performing Organization Address City/[facility]/ZIP Co de Phone Number [facility] [place] [address] * APTT (12/13/2021 6:07 AM EST) Partial Thromboplastin Time 33 25 - 37 sec [facility] Comment: The PTT is NOT appropriate for heparin monitoring. Use the Anti-Xa level for heparin monitoring (HEP UFH) or LMWH monitoring (HEP LMW). A PTT less than 37 seconds generally indicates adequate hemostasis. Blood 12/13/2021 6:07 AM EST 12/13/2021 6:42 AM EST Narrative Resulting Agency Comment Spec In Lab Carlos Manuel Dodson MD HEMATOLOGY ORDERABL ES [facility] [place] [address] * (ABNORMAL) Basic Metabolic Panel (non-fasting) (12/13/2021 6:07 AM EST) Glucose 92 65 - 199 mg/dL [facility] Comment:Diabetes: >=200 mg/d L plus symptoms Blood Urea Nitrogen 26(H) 10 - 20 mg/dL [facility] Creatinine 1.06 0.80 - 1.50 mg/dL [facility] Sodium 135 135 - 145 mmol/L [facility] Potassium 4.3 3.5 - 5.0 mmol/L [facility] Comment: Please note: ??Patients with WBC >100,000 may have falsely elevated Potassium levels. ??For accurate Potassium quantification in these patients send serum separator tube (gold top) for subsequent determinations. ??Contact the Clinical Chemistry Laboratory if there are any questions. Chloride 103 98 - 107 mmol/L [facility] Carbon Dioxide 22 22 - 31 mmol/L [facility] Anion Gap 10 5 - 15 mmol/L [facility] Calcium 8.7 8.5 - 10.5 mg/dL [facility] Est Glomerular Filtration Rate 70 >=60 mL/min/1. 73 m?? [facility] Comment: This patient? s estimated glomerular filtration rate (eGFR) is between 70 mL/min/1.73 m2 (patients with less muscle mass per kg body weight) and 81 mL/min/1.73 m2 (patients with more muscle mass per kg body weight) as determined by the CKD-EPI equation. Assessment of eGFR is not appropriate when creatinine concentrations are rapidly changing. For clinical decisions where creatinine clearance will affect therapy, a 24-hour urine creatinine clearance may be advised. Assignment of CKD stage 1 - 5 for patients with an eGFR near the transition point between stages may be based on clinical assessment of muscle mass and symptoms in addition to eGFR. Blood 12/13/2021 6:07 AM EST 12/13/2021 6:42 AM EST Narrative Resulting Agency Comment Spec In Lab Rayna High MD CHEMISTRY ORDERABLES [facility] [place] [address] * COVID-19 PCR (12/12/2021 2:00 PM EST) SARS-CoV-2 RNA (Rapid) Not Detected Not Detected [facility] Comment: This result should be interpreted in combination with the clinical observations, patient history and epidemiological information. For testing of asymptomatic individuals, assay performance characteristics and clinical utility have not been evaluated. Testing for SARS-CoV-2 (Severe acute respiratory syndrome coronavirus 2, formerly known as 2019 novel coronavirus or 2019-nCoV) to aid in the diagnosis of COVID-19 is performed using the Simplexa COVID-19 Direct Assay by [employer] as authorized by the FDA issued Emergency Use Authorization (EUA). This assay is intended for In-vitro Diagnostic (IVD) use with nasopharyngeal swabs collected from individuals meeting the CDC criteria for testing. The assay is performed based on the instructions for use and additional guidance provided by the FDA. Testing is performed in the Microbiology Laboratory within the Department of Pathology and Laboratory Medicine at [facility], certified under the Clinical Laboratory Improvement Amendments of 1988 (CLIA), 42 U.S.C. section 263a, to perform high complexity tests. Assay performance has been verified according to clinical laboratory regulatory requirements. Test results are provided above. A result of Not Detected indicates that the viral RNA target is not present but does not preclude SARS-CoV-2 infection. False negative results may occur if a specimen is improperly collected, transported or handled; if amplification inhibitors are present; or if inadequate numbers of viral particles are present in the specimen. A result of Detected suggests a current or recent infection and the patient is presumed to be infected. Positive and negative predictive values for this test are highly dependent on disease prevalence. A result of Invalid indicates the inability to conclusively determine the presence or absence of SARS-CoV-2 RNA in the sample which can be due to a variety of factors. Recollection is recommended in the case of an invalid result. CDC COVID-19 criteria for testing on human specimens and clinical management guidance information are available at the CDC Coronavirus Disease 2019 (COVID-19) webpage under Information for Healthcare Professionals (https://www.cdc.gov/coronavirus/2019-ncov/hcp/index.html). Additional information about this and other EUA tests can be found in provider and patient fact sheets at the following FDA website: https://www.fda.gov/medical-devices/ydeltqnwyam-oxvvjog-4038-qlbkc-34-iopiowkfh- use-a bzjsoqtzcvali-owkdqar-zkfcnja/cnrbj-cbsyvyeoiuk-yocm SARS-CoV-2 Source [employer] Sw[employer] [facility] Nasopharyngeal Swab 12/12/19 2:00 PM EST 12/12/2021 2:27 PM EST Comment:Symptoms->Surveillan ce Narrative Resulting Agency Comment Spec In Lab Rayna High MD MICROBIOLOGY - GENER AL ORDERABLES Performing Organization Address [facility] Co de Phone Number [facility] [place] [address] * APTT (12/12/2021 12:33 PM EST) Partial Thromboplastin Time 36 25 - 37 sec [facility] Comment: The PTT is NOT appropriate for heparin monitoring. Use the Anti-Xa level for heparin monitoring (HEP UFH) or LMWH monitoring (HEP LMW). A PTT less than 37 seconds generally indicates adequate hemostasis. Blood 12/12/2021 12:3 3 PM EST 12/12/2021 12:45 PM EST Narrative Resulting Agency Comment Spec In Lab Matti Engel APRN HEMATOLOGY ORDERABL ES Performing Organization Address [facility] Co de Phone Number [facility] [place] [address] * (ABNORMAL) Prothrombin Time (12/12/2021 12:33 PM EST) Prothrombin Time 18.2(H) 9.4 - 12.5 sec [facility] International Normalization Ratio 1.6 [facility] Comment: An INR <2.0 indicates adequate procoagulant activity for hemostasis in most patients without underlying bleeding disorders, though the INR may not adequately reflect hemostatic capacity in patients with liver disease and synthetic impairment. The recommended target INR range for therapeutic anticoagulation is 2.0 ? 3.0 for most applications, though lower and higher ranges may be appropriate depending on clinical circumstances. Blood 12/12/2021 12:3 3 PM EST 12/12/2021 12:45 PM EST Narrative Resulting Agency Comment Spec In Lab Matti Engel APRN HEMATOLOGY ORDERABL ES [facility] [place] [address] * XR Chest PA & Lateral (Generic) (12/12/2021 8:43 AM EST) Anatomical Region Laterality Modality Chest N/A Digital Radiogra phy Impressions 12/12/2021 8:49 AM EST No significant change since the previous study. No pneumothorax Thank you for letting us participate in the care of this patient. ??If you are a health care provider and have any questions regarding this report, please contact the number below. ??For patients who have questions please contact the health managed care manager that requested your imaging first. ? Narrative 12/12/2021 8:49 AM EST EXAMINATION: XR CHEST PA AND LATERAL (GENERIC) CLINICAL HISTORY: Rib fractures, assess for interval change/ptx/etc TECHNIQUE: PA and lateral views of the chest COMPARISON: 12/12/2021, earlier today FINDINGS: No pneumothorax. Multiple acute LEFT rib fractures as previously noted with displacement of the lateral eighth rib. Grossly stable LEFT peripheral opacity, corresponding to a chest wall hematoma. Procedure Note Matti Palacio MD - 12/12/2021 EXAMINATION: XR CHEST PA AND LATERAL (GENERIC) CLINICAL HISTORY: Rib fractures, assess for interval change/ptx/etc TECHNIQUE: PA and lateral views of the chest COMPARISON: 12/12/2021, earlier today FINDINGS: No pneumothorax. Multiple acute LEFT rib fractures as previously noted with displacement ofthe lateral eighth rib. Grossly stable LEFT peripheral opacity, corresponding to a chest wallhematoma. IMPRESSION No significant change since the previous study. No pneumothorax Thank you for letting us participate in the care of this patient. If youare a health care provider and have any questions regarding this report,please contact the number below. For patients who have questions please contactthe health managed care manager that requested your imaging first. Rayna High MD IMG DX ORDERABLES * Request For 2nd Read CT Chest (12/12/2021 6:58 AM EST) Anatomical Region Laterality Modality Chest SO Addenda Addendum by Matti Palacio MD on 12/13/2021 4:08 PM EST --------ADDENDUM #1-------- Correction on impression #2, it should read: 2. Hemothorax adjacent to rib fractures and LEFT mid lateral lung. No pneumothorax Thank you for letting us participate in the care of this patient. ??If you are a health care provider and have any questions regarding this report, please contact the number below. ??For patients who have questions please contact the health managed care manager that requested your imaging first. ? Electronically signed by: Matti Palacio MD, [facility] ([phone]), at 12/13/2021 4:03 PM --------ORIGINAL REPORT -------- EXAMINATION: REQUEST FOR 2ND READ CT CHEST CLINICAL HISTORY: Rib fractures after trauma, assess for additional injury; Sending Institution [facility]; Date of exam 20211211; I believe a reinterpretation of this exam may alter care of Patient. Yes TECHNIQUE: 3.75 mm thick axial contiguous sections were obtained through the chest via helical acquisition after the intravenous administration of contrast. Thin-section reconstructions as well as coronal and sagittal reformatted images were generated. COMPARISON: Chest x-ray from 12/11/2021 FINDINGS: Pulmonary parenchyma: Severe bilateral centrilobular emphysematous disease. 2 subcentimeter pleural-based lesion superior segment LEFT lower lobe. Broad-based LEFT lateral parietal density, compatible with a hematoma adjacent to rib fractures. No areas of airspace consolidation. Airways: No endobronchial lesions Pleura: No pleural effusions. Possible loculated LEFT lateral pneumothorax. Lymph nodes: No significant findings. Heart, pericardium, and great vessels: Post aortic and mitral valve replacement. No pericardial effusion Other mediastinal structures: No significant findings. Lower neck: No significant findings. Upper abdomen: Indeterminate ill-defined heterogeneous enhancement of a portion of the RIGHT hepatic lobe. Body wall soft tissues: No significant findings. Skeletal structures: Following LEFT rib fractures: Nondisplaced lateral fifth rib and minimally displaced proximal LEFT rib fracture;, LEFT sixth rib, comminuted laterally minimally displaced medially at costochondral junction; comminuted LEFT lateral seventh rib fracture and minimally displaced medial LEFT seventh rib fracture at costochondral junction; proximally fractured eighth rib with comminuted lateral eighth rib fractures; proximal ninth rib fracture; Proximal 10th rib fracture and lateral 10th rib fracture; proximal 11th rib fracture; distal 12th rib fracture. IMPRESSION: 1. ??Fractures through LEFT fifth and 12th ribs, as described above. 2. ??Hemopneumothorax adjacent to rib fractures and LEFT mid lateral lung. 3. ??No pneumothorax. 4. ??Superior segment LEFT lower lobe 2.0 cm nodule. New compared to CT from 10/12/2021; recommend close interval follow-up for assessment of stability. 5. ??Severe bilateral centrilobular emphysematous disease. Thank you for letting us participate in the care of this patient. ??If you are a health care provider and have any questions regarding this report, please contact the number below. ??For patients who have questions please contact the health managed care manager that requested your imaging first. ? Electronically signed by: Matti Palacio MD, [facility] ([phone]), at 12/12/2021 9:25 AM Impressions 12/12/2021 9:25 AM EST 1. ??Fractures through LEFT fifth and 12th ribs, as described above. 2. ??Hemopneumothorax adjacent to rib fractures and LEFT mid lateral lung. 3. ??No pneumothorax. 4. ??Superior segment LEFT lower lobe 2.0 cm nodule. New compared to CT from 10/12/2021; recommend close interval follow-up for assessment of stability. 5. ??Severe bilateral centrilobular emphysematous disease. Thank you for letting us participate in the care of this patient. ??If you are a health care provider and have any questions regarding this report, please contact the number below. ??For patients who have questions please contact the health managed care manager that requested your imaging first. ? Electronically signed by: Matti Palacio MD, [facility] ([phone]), at 12/12/2021 9:25 AM Narrative 12/12/2021 9:25 AM EST EXAMINATION: REQUEST FOR 2ND READ CT CHEST CLINICAL HISTORY: Rib fractures after trauma, assess for additional injury; Sending Institution [facility]; Date of exam 20211211; I believe a reinterpretation of this exam may alter care of Patient. Yes TECHNIQUE: 3.75 mm thick axial contiguous sections were obtained through the chest via helical acquisition after the intravenous administration of contrast. Thin-section reconstructions as well as coronal and sagittal reformatted images were generated. COMPARISON: Chest x-ray from 12/11/2021 FINDINGS: Pulmonary parenchyma: Severe bilateral centrilobular emphysematous disease. 2 subcentimeter pleural-based lesion superior segment LEFT lower lobe. Broad-based LEFT lateral parietal density, compatible with a hematoma adjacent to rib fractures. No areas of airspace consolidation. Airways: No endobronchial lesions Pleura: No pleural effusions. Possible loculated LEFT lateral pneumothorax. Lymph nodes: No significant findings. Heart, pericardium, and great vessels: Post aortic and mitral valve replacement. No pericardial effusion Other mediastinal structures: No significant findings. Lower neck: No significant findings. Upper abdomen: Indeterminate ill-defined heterogeneous enhancement of a portion of the RIGHT hepatic lobe. Body wall soft tissues: No significant findings. Skeletal structures: Following LEFT rib fractures: Nondisplaced lateral fifth rib and minimally displaced proximal LEFT rib fracture;, LEFT sixth rib, comminuted laterally minimally displaced medially at costochondral junction; comminuted LEFT lateral seventh rib fracture and minimally displaced medial LEFT seventh rib fracture at costochondral junction; proximally fractured eighth rib with comminuted lateral eighth rib fractures; proximal ninth rib fracture; Proximal 10th rib fracture and lateral 10th rib fracture; proximal 11th rib fracture; distal 12th rib fracture. Procedure Note Matti Palacio MD - 02/20/2022 EXAMINATION: REQUEST FOR 2ND READ CT CHEST CLINICAL HISTORY: Rib fractures after trauma, assess for additionalinjury; Sending Institution [facility]; Date of exam 20211211; I believe areinterpretation of this exam may alter care of Patient. Yes TECHNIQUE: 3.75 mm thick axial contiguous sections were obtained throughthe chest via helical acquisition after the intravenous administration ofcontrast. Thin-section reconstructions as well as coronal and sagittal reformattedimages were generated. COMPARISON: Chest x-ray from 12/11/2021 FINDINGS: Pulmonary parenchyma: Severe bilateral centrilobular emphysematousdisease. 2 subcentimeter pleural-based lesion superior segment LEFT lower lobe.Broad-based LEFT lateral parietal density, compatible with a hematoma adjacent torib fractures. No areas of airspace consolidation. Airways: No endobronchial lesions Pleura: No pleural effusions. Possible loculated LEFT lateralpneumothorax. Lymph nodes: No significant findings. Heart, pericardium, and great vessels: Post aortic and mitral valvereplacement. No pericardial effusion Other mediastinal structures: No significant findings. Lower neck: No significant findings. Upper abdomen: Indeterminate ill-defined heterogeneous enhancement of aportion of the RIGHT hepatic lobe. Body wall soft tissues: No significant findings. Skeletal structures: Following LEFT rib fractures: Nondisplaced lateralfifth rib and minimally displaced proximal LEFT rib fracture;, LEFT sixth rib, comminuted laterally minimally displaced medially at costochondraljunction; comminuted LEFT lateral seventh rib fracture and minimally displacedmedial LEFT seventh rib fracture at costochondral junction; proximally fracturedeighth rib with comminuted lateral eighth rib fractures; proximal ninth ribfracture; Proximal 10th rib fracture and lateral 10th rib fracture; proximal 11thrib fracture; distal 12th rib fracture. IMPRESSION 1. Fractures through LEFT fifth and 12th ribs, as described above. 2. Hemopneumothorax adjacent to rib fractures and LEFT mid laterallung. 3. No pneumothorax. 4. Superior segment LEFT lower lobe 2.0 cm nodule. New compared to CTfrom 10/12/2021; recommend close interval follow-up for assessment ofstability. 5. Severe bilateral centrilobular emphysematous disease. Thank you for letting us participate in the care of this patient. If youare a health care provider and have any questions regarding this report,please contact the number below. For patients who have questions please contactthe health managed care manager that requested your imaging first. Rayna High MD IMG OUTSIDE INTERPRE TATION ORDERABLES * (ABNORMAL) Rapid Drug Screen w/o Confirmation, Urine (12/12/2021 4:16 AM EST) Pathologist [facility] Barbiturates Screen, Urine None Detected None Detected [facility] Comment: The barbiturate screen detects barbiturates at concentrations >200 ng/mL. Note: Not all barbiturates cross-react equally with antibody used in this screen. A ? Presumptive Positive? result indicates that the screening result was positive but has not yet been confirmed by a highly-specific method. As with any screen, occasional false positive results from cross-reacting substances may occur. Not for Medico-Legal Purposes. Benzodiazepines Screen, Urine None Detected None Detected [facility] Comment: The benzodiazepines screen detects benzodiazepines at concentrations >100 ng/mL. Not all benzodiazepines cross-react equally with antibody used in this screen. Due to the low dosage of clonazepam, false negatives may be obtained due to low concentration of clonazepam metabolites. A ? Presumptive Positive? result indicates that the screening result was positive but has not yet been confirmed by a highly-specific method. As with any screen, occasional false positive results from cross-reacting substances may occur. Not for Medico-Legal Purposes. Cocaine Screen, Urine None Detected None Detected [facility] Comment: The cocaine metabolites screen detects benzoylecgonine (Cocaine Metabolite) at concentrations >150 ng/mL. A ? Presumptive Positive? result indicates that the screening result was positive but has not yet been confirmed by a highly-specific method. As with any screen, occasional false positive results from cross-reacting substances may occur. Not for Medico-Legal Purposes. Methadone Metabolites Screen, Urine None Detected None Detected [facility] Comment: The methadone metabolite screen detects EDDP (major methadone metabolite) at concentrations >100 ng/mL. A ? Presumptive Positive? result indicates that the screening result was positive but has not yet been confirmed by a highly-specific method. As with any screen, occasional false positive results from cross-reacting substances may occur. Not for Medico-Legal Purposes. Opiate Screen, Urine None Detected None Detected [facility] Comment: The opiates screen detects opiates at concentrations >300 ng/mL. Please note that oxycodone, oxymorphone, fentanyl, tramadol, and other synthetic opioids are not detected by the opiate screen. A ? Presumptive Positive? result indicates that the screening result was positive but has not yet been confirmed by a highly-specific method. As with any screen, occasional false positive results from cross-reacting substances may occur. Not for Medico-Legal Purposes. Cannabinoid Screen, Urine None Detected None Detected [facility] Comment: The marijuana metabolites screen detects the THC metabolite (74-txd-1-carboxy-delta 9-THC) at concentrations >20 ng/mL. A ? Presumptive Positive? result indicates that the screening result was positive but has not yet been confirmed by a highly-specific method. As with any screen, occasional false positive results from cross-reacting substances may occur. Not for Medico-Legal Purposes. Oxycodone Screen, Urine Presumptive Pos(A) None Detected [facility] Comment: The oxycodone screen detects oxycodone and oxymorphone at concentrations >100 ng/mL. A ? Presumptive Positive? result indicates that the screening result was positive but has not yet been confirmed by a highly-specific method. As with any screen, occasional false positive results from cross-reacting substances may occur. Not for Medico-Legal Purposes. Buprenorphine Screen, Urine None Detected None Detected [facility] Comment: The buprenorphine screen detects buprenorphine at concentrations >5 ng/mL. A ? Presumptive Positive? result indicates that the screening result was positive but has not yet been confirmed by a highly-specific method. As with any screen, occasional false positive results from cross-reacting substances may occur. Not for Medico-Legal Purposes. Fentanyl Screen, Urine Presumptive Pos(A) None Detected [facility] Comment: The fentanyl screen detects fentanyl at concentrations >2 ng/mL. A ? Presumptive Positive? result indicates that the screening result was positive but has not yet been confirmed by a highly-specific method. As with any screen, occasional false positive results from cross-reacting substances may occur. Not for Medico-Legal Purposes. Tricyclics Screen, Urine None Detected None Detected [facility] Comment: The tricyclics screen detects tricyclic antidepressants at concentrations >150 ng/mL. Not all tricyclics cross-react equally with the antibody used in this screen. A ? Presumptive Positive? result indicates that the screening result was positive but has not yet been confirmed by a highly-specific method. As with any screen, occasional false positive results from cross-reacting substances may occur. Not for Medico-Legal Purposes. Ethanol Screen, Urine None Detected None Detected [facility] Comment:This urine ethanol a ssay detects ethanol at concentrations >/= 100 mg/L. Amphetamines Screen, Urine None Detected None Detected [facility] Comment: The amphetamine screen detects d-amphetamine and d-methamphetamine at concentrations >300 ng/mL. A ? Presumptive Positive? result indicates that the screening result was positive but has not yet been confirmed by a highly-specific method. As with any screen, occasional false positive results from cross-reacting substances may occur. Not for Medico-Legal Purposes. Adulterants Screen, Urine None Detected None Detected [facility] Comment: No adulteration or dilution of this urine sample was detected. All urine samples submitted for urine drugs of abuse analysis are tested for creatinine concentration, pH, and for the presence of oxidants, nitrites, and chromate. Urine 12/12/2021 4:16 AM EST 12/12/2021 4:21 AM EST Narrative Resulting Agency Comment Spec In Lab Carlos Manuel Dodson MD CHEMISTRY ORDERABLE S [facility] [place] [address] * (ABNORMAL) Urinalysis with reflex Culture (12/12/2021 4:16 AM EST) Glucose, Urine Dipstick Negative Negative mg/dL [facility] Protein, Urine Dipstick Negative Negative mg/dL [facility] Bilirubin, Urine Dipstick Negative Negative mg/dL [facility] Comment: Clinical correlation required for positive Urine Bilirubin results as false positive may occur with some drugs and drug related products. If a false positive is suspected a serum total bilirubin should be considered if clinically indicated. Urobilinogen, Urine Dipstick Normal Normal mg/dL [facility] pH, Urn (dipstick) 5.0 5.0 - 8.0 [facility] Blood, Urine Dipstick Negative Negative mg/dL [facility] Ketone, Urine Dipstick 15(A) Negative mg/dL [facility] Nitrite, Urine Dipstick Negative Negative [facility] Leukocytes, Urine Dipstick Negative Negative [facility] LAB[facility]ATORY Appearance, Urine Dipstick Clear Clear [facility] Specific Wrights Urine Automated >=1.030(A) 1.005 - 1.030 [facility] Color, Urine Dipstick Yellow Yellow [facility] Reflex to Culture No [facility] Urine 12/12/2021 4:16 AM EST 12/12/2021 4:21 AM EST Narrative Resulting Agency Comment Spec In Lab Rayna High MD URINE ORDERABLES Performing Organization Address City/State/[facility] Co de Phone Number [facility] [place] [address] * Rapid Drug Screen, Urine (NO Request) (12/12/2021 4:16 AM EST) NO Conf Requested No [facility] Comment: Collection date/time has been modified to: 04:16:00. ??Previous collection date/time: 01:21:00. Corrected from No [NA] on 12/12/21 4:22:37 EST by Matti Boles NO Requested See Comment [facility] Comment: Refer to Rapid Drug Screen w/o Confirmation, Urine for results. Collection date/time has been modified to: 04:16:00. ??Previous collection date/time: 01:21:00. Corrected from See Comment [NA] on 12/12/21 4:22:37 EST by Matti Boles Urine 12/12/2021 4:16 AM EST 12/12/2021 4:21 AM EST Narrative Resulting Agency Comment Spec In Lab Rayna High MD URINE ORDERABLES Performing Organization Address City/State/[facility] Co de Phone Number [facility] [place] [address] * CT Lumbar Spine Reconstruction (12/12/2021 4:03 AM EST) Anatomical Region Laterality Modality L-spine Computed Tomogra phy 12/12/2021 4:24 AM EST Impressions 12/12/2021 5:29 AM EST No acute fracture or traumatic malalignment of the lumbar spine. I have personally reviewed the image(s) and the resident's interpretation and agree with the findings, Nehal Valdez MD at 12/12/2021 5:29 AM Thank you for letting us participate in the care of this patient. ??If you are a health care provider and have any questions regarding this report, please contact the number below. ??For patients who have questions please contact the health managed care manager that requested your imaging first. ? Narrative 12/12/2021 5:29 AM EST EXAMINATION: CT LUMBAR SPINE RECONSTRUCTION CLINICAL HISTORY: Trauma transfer, rib fractures TECHNIQUE: CT reconstructions of the lumbar spine COMPARISON: Chest CT, 2003 , December 11, 2021 FINDINGS: Normal alignment of the lumbar spine. Vertebral body heights are preserved. No acute fracture, subluxation or dislocation. Mid to lower lumbar spine bilateral facet arthropathies noted, most severe at L4-L5 and L5-S1 levels. The sacrum is intact. Partially visualized left posterior 12th rib fracture, characterized on dedicated chest CT. Procedure Note Nehal Valdez MD - 12/12/2021 EXAMINATION: CT LUMBAR SPINE RECONSTRUCTION CLINICAL HISTORY: Trauma transfer, rib fractures TECHNIQUE: CT reconstructions of the lumbar spine COMPARISON: Chest CT, 2002, December 11, 2021 FINDINGS: Normal alignment of the lumbar spine. Vertebral body heights arepreserved. No acute fracture, subluxation or dislocation. Mid to lower lumbar spinebilateral facet arthropathies noted, most severe at L4-L5 and L5-S1 levels. Thesacrum is intact. Partially visualized left posterior 12th rib fracture,characterized on dedicated chest CT. IMPRESSION No acute fracture or traumatic malalignment of the lumbar spine. I have personally reviewed the image(s) and the resident's interpretationand agree with the findings, Nehal Valdez MD at 12/12/2021 5:29 AM Thank you for letting us participate in the care of this patient. If youare a health care provider and have any questions regarding this report,please contact the number below. For patients who have questions please contactthe health managed care manager that requested your imaging first. Carlos Manuel Dodson MD IMG CT ORDERABLES * CT Abdomen & Pelvis w Contrast (12/12/2021 4:03 AM EST) Anatomical Region Laterality Modality Abdomen, Pelvis Computed Tomogra phy 12/12/2021 4:24 AM EST Impressions 12/12/2021 5:36 AM EST No acute traumatic injury to the abdomen or pelvis. I have personally reviewed the image(s) and the resident's interpretation and agree with the findings, Nehal Valdez MD at 12/12/2021 5:36 AM Thank you for letting us participate in the care of this patient. ??If you are a health care provider and have any questions regarding this report, please contact the number below. ??For patients who have questions please contact the health managed care manager that requested your imaging first. ? Narrative 12/12/2021 5:36 AM EST EXAMINATION: CT ABDOMEN AND PELVIS W CONTRAST CLINICAL HISTORY: Trauma transfer, rib fractures TECHNIQUE: Helical CT of the abdomen and pelvis was performed following the intravenous administration of contrast. Administered 93.0 ml of OMNIPAQUE 350.00 mg/ml. COMPARISON: Correlation made with same day chest and L-spine CT, December 11, 2021 FINDINGS: Lower chest: Emphysematous changes and dependent atelectasis. Small hiatal hernia. Liver: Mild focal fat along the falciform ligament. Subcentimeter hypoattenuating lesion in left hepatic lobe is too small to further characterize. Bile ducts: Not dilated. Gallbladder: No calcified gallstones. Pancreas: Normal. Spleen: Normal. Small splenule noted at the tip of the spleen. Adrenals: Normal. Kidneys: Symmetric enhancement. No hydronephrosis. Vasculature: Extensive atherosclerotic calcification with ulcerated plaque in the infrarenal abdominal aorta. Lymph Nodes: No enlarged lymph nodes. Bowel: No abnormal bowel dilation, wall thickening or surrounding inflammatory change. Colonic diverticular disease without diverticulitis. Large fecal load throughout the colon. Peritoneum and mesentery: No free air. Trace fluid in the left pelvis, a nonspecific finding. Abdominal wall: Small fat-containing umbilical hernia. Stable changes of prior left inguinal hernia repair. Urinary Bladder: Moderately distended with contrast, normal. Reproductive organs: Prostatomegaly at 6.2 cm with focal dilation of the prostatic urethra, likely a TURP defect. Osseous structures: No acute pelvic or proximal femur fractures. Healed right-sided rib fractures. Partially visualized left posterior 10th, 11th, and 12th rib fractures, and characterized on dedicated chest CT. Procedure Note Nehal Valdez MD - 12/12/2021 EXAMINATION: CT ABDOMEN AND PELVIS W CONTRAST CLINICAL HISTORY: Trauma transfer, rib fractures TECHNIQUE: Helical CT of the abdomen and pelvis was performed followingthe intravenous administration of contrast. Administered 93.0 ml of CWVKPEINA541.00 mg/ml. COMPARISON: Correlation made with same day chest and L-spine CT, December 11, 2021 FINDINGS: Lower chest: Emphysematous changes and dependent atelectasis. Smallhiatal hernia. Liver: Mild focal fat along the falciform ligament. Subcentimeter hypoattenuating lesion in left hepatic lobe is too small to further characterize. Bile ducts: Not dilated. Gallbladder: No calcified gallstones. Pancreas: Normal. Spleen: Normal. Small splenule noted at the tip of the spleen. Adrenals: Normal. Kidneys: Symmetric enhancement. No hydronephrosis. Vasculature: Extensive atherosclerotic calcification with ulcerated plaquein the infrarenal abdominal aorta. Lymph Nodes: No enlarged lymph nodes. Bowel: No abnormal bowel dilation, wall thickening or surroundinginflammatory change. Colonic diverticular disease without diverticulitis. Large fecalload throughout the colon. Peritoneum and mesentery: No free air. Trace fluid in the left pelvis, a nonspecific finding. Abdominal wall: Small fat-containing umbilical hernia. Stable changes ofprior left inguinal hernia repair. Urinary Bladder: Moderately distended with contrast, normal. Reproductive organs: Prostatomegaly at 6.2 cm with focal dilation of the prostatic urethra, likely a TURP defect. Osseous structures: No acute pelvic or proximal femur fractures. Healed right-sided rib fractures. Partially visualized left posterior 10th, 11th,and 12th rib fractures, and characterized on dedicated chest CT. IMPRESSION No acute traumatic injury to the abdomen or pelvis. I have personally reviewed the image(s) and the resident's interpretationand agree with the findings, Nehal Valdez MD at 12/12/2021 5:36 AM Thank you for letting us participate in the care of this patient. If youare a health care provider and have any questions regarding this report,please contact the number below. For patients who have questions please contactthe health managed care manager that requested your imaging first. Carlos Manuel Dodson MD IM CT ORDERABLES * CT Head & Cervical Spine wo Contrast (Generic) (12/12/2021 4:03 AM EST) Anatomical Region Laterality Modality Head Computed Tomogra phy 12/12/2021 4:24 AM EST Impressions 12/12/2021 5:11 AM EST 1. ??No acute intracranial hemorrhage or calvarial fracture. 2. ??No acute cervical spine fracture. I have personally reviewed the image(s) and the resident's interpretation and agree with the findings, Nehal Valdez MD at 12/12/2021 5:11 AM Thank you for letting us participate in the care of this patient. ??If you are a health care provider and have any questions regarding this report, please contact the number below. ??For patients who have questions please contact the health managed care manager that requested your imaging first. ? Narrative 12/12/2021 5:11 AM EST EXAMINATION: CT HEAD AND CERVICAL SPINE WO CONTRAST (GENERIC) CLINICAL HISTORY: Trauma transfer, rib fractures TECHNIQUE: CT head and cervical spine performed without intravenous contrast administration. COMPARISON: CT head, 03/08/2021 CT chest, October 12, 2021 FINDINGS: Head: No acute intracranial hemorrhage or extra-axial collection. Barclay-white differentiation is preserved. Diffuse cerebral volume loss with prominence of the cerebral sulci and dilation of the ventricles is likely age-related and is unchanged. No mass, mass effect or midline shift. Basal cisterns are patent. Dense calcification of the bilateral intracranial ICAs is noted. No calvarial fracture or significant extracalvarial contusion or hematoma. The paranasal sinuses and mastoid air cells are clear. Cervical spine: The craniocervical junction is intact. Normal cervical alignment. Vertebral body heights are normal. No acute fracture, subluxation or dislocation. Mild disc space height loss and vacuum disc phenomenon at C6-7. Bilateral facet arthropathy throughout the cervical spine. Bulky bilateral carotid bulb calcifications. No paravertebral soft tissue swelling or hematoma. Advanced centrilobular emphysema with unchanged large biapical bulla. Procedure Note Nehal Valdez MD - 12/12/2021 EXAMINATION: CT HEAD AND CERVICAL SPINE WO CONTRAST (GENERIC) CLINICAL HISTORY: Trauma transfer, rib fractures TECHNIQUE: CT head and cervical spine performed without intravenous contrast administration. COMPARISON: CT head, 03/08/2021 CT chest, October 12, 2021 FINDINGS: Head: No acute intracranial hemorrhage or extra-axial collection.Barclay-white differentiation is preserved. Diffuse cerebral volume loss with prominenceof the cerebral sulci and dilation of the ventricles is likely age-relatedand is unchanged. No mass, mass effect or midline shift. Basal cisterns arepatent. Dense calcification of the bilateral intracranial ICAs is noted. No calvarial fracture or significant extracalvarial contusion or hematoma.The paranasal sinuses and mastoid air cells are clear. Cervical spine: The craniocervical junction is intact. Normal cervical alignment. Vertebral body heights are normal. No acute fracture,subluxation or dislocation. Mild disc space height loss and vacuum disc phenomenon atC6-7. Bilateral facet arthropathy throughout the cervical spine. Bulkybilateral carotid bulb calcifications. No paravertebral soft tissue swelling orhematoma. Advanced centrilobular emphysema with unchanged large biapical bulla. IMPRESSION 1. No acute intracranial hemorrhage or calvarial fracture. 2. No acute cervical spine fracture. I have personally reviewed the image(s) and the resident's interpretationand agree with the findings, Nehal Valdez MD at 12/12/2021 5:11 AM Thank you for letting us participate in the care of this patient. If youare a health care provider and have any questions regarding this report,please contact the number below. For patients who have questions please contactthe health managed care manager that requested your imaging first. Carlos Manuel Dodson MD IM CT ORDERABLES * XR Chest One View (12/12/2021 1:32 AM EST) Anatomical Region Laterality Modality Chest N/A Digital Radiogra phy Impressions 12/12/2021 2:20 AM EST 1. ??Multiple acute left rib fractures with mild displacement of the lateral 8th rib as on prior CT. No pneumothorax. 2. ??Left lateral chest peripheral lobular opacity, corresponds to reflects a chest wall hematoma along the known left rib fractures. I have personally reviewed the image(s) and the resident's interpretation and agree with the findings, Nehal Valdez MD at 12/12/2021 2:20 AM Thank you for letting us participate in the care of this patient. ??If you are a health care provider and have any questions regarding this report, please contact the number below. ??For patients who have questions please contact the health managed care manager that requested your imaging first. ? Narrative 12/12/2021 2:20 AM EST EXAMINATION: XR CHEST ONE VIEW CLINICAL HISTORY: rib fractures TECHNIQUE: 1 view of the chest COMPARISON: CT, 2003 hours, 12/11/2021 Chest radiograph, 1705 hours, 01/08/2022 CT chest, 10/12/2021 FINDINGS: Chronic changes of emphysema and interstitial lung disease are again noted. A confluent opacity at the left lateral hemithorax corresponds to chest wall hematoma in the setting of numerous left-sided rib fractures, noted on recent CT. Numerous acute left rib fractures, characterized on CT, with the lateral left eighth rib being mildly displaced and the others are minimally displaced. No pneumothorax. Healed right rib fracture deformities are again noted. 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 A left dual-lead pacemaker has leads in unchanged position. Intact sternotomy wires. Procedure Note Nehal Valdez MD - 12/12/2021 EXAMINATION: XR CHEST ONE VIEW CLINICAL HISTORY: rib fractures TECHNIQUE: 1 view of the chest COMPARISON: CT, 2003 hours, 12/11/2021 Chest radiograph, 1705 hours, 01/08/2022 CT chest, 10/12/2021 FINDINGS: Chronic changes of emphysema and interstitial lung disease are againnoted. A confluent opacity at the left lateral hemithorax corresponds to chestwall hematoma in the setting of numerous left-sided rib fractures, noted onrecent CT. Numerous acute left rib fractures, characterized on CT, with thelateral left eighth rib being mildly displaced and the others are minimallydisplaced. No pneumothorax. Healed right rib fracture deformities are again noted.Stable cardiac silhouette with aortic and mitral valve prosthesis. A leftdual-lead pacemaker has leads in unchanged position. Intact sternotomy wires. IMPRESSION 1. Multiple acute left rib fractures with mild displacement of thelateral 8th rib as on prior CT. No pneumothorax. 2. Left lateral chest peripheral lobular opacity, corresponds to reflectsa chest wall hematoma along the known left rib fractures. I have personally reviewed the image(s) and the resident's interpretationand agree with the findings, Nehal Valdez MD at 12/12/2021 2:20 AM Thank you for letting us participate in the care of this patient. If youare a health care provider and have any questions regarding this report,please contact the number below. For patients who have questions please contactthe health managed care manager that requested your imaging first. Carlos Manuel Dodson MD IMG DX ORDERABLES * Gold Tube HOLD (12/12/2021 1:25 AM EST) Pathologist [facility] Gold Hold Sample in lab. [facility] Blood Venous Draw / Unknown 12/12/2021 1:25 AM EST 12/12/2021 1:37 AM EST Rayna High MD CHEMISTRY ORDERABLES [facility] [place] [address] * (ABNORMAL) Differential, Automated (12/12/2021 1:25 AM EST) [facility] Neutrophil % 80.9 % [facility] Neutrophil Absolute 7.19(H) 1.70 - 6.10 x10(3)/ L [facility] Lymph % 9.9 % [facility] Lymphocytes Abs 0.9 0.9 - 3.2 x10(3)/ L [facility] Monocyte % 8.0 % [facility] Monocyte Abs 0.7 0.3 - 0.9 x10(3)/ L [facility] Eos % 0.5 % [facility] Eosinophils Abs 0.0 0.0 - 0.4 x10(3)/ L [facility] Basophil % 0.5 % [facility] Baso Absolute 0.0 0.0 - 0.1 x10(3)/ L [facility] Immature Gran % 0.20 % [facility] Comment: Immature granulocytes(IG's)percentage and absolute count will include metamyelocytes, myelocytes, and promyelocytes. Blood smears from CBCs yielding IG's will be scanned manually for concordance. If this scan disagrees with the automated IG or if promyelocytes are noted, a manual differential will be performed. Immature Gran Absolute 0.02 0.00 - 0.04 x10(3)/mc L [facility] Blood 12/12/2021 1:25 AM EST 12/12/2021 1:34 AM EST Narrative Resulting Agency Comment Spec In Lab Rayna High MD HEMATOLOGY ORDERABLE S Performing Organization Address City/[facility]/ZIP Co de Phone Number [facility] [place] [address] * (ABNORMAL) Hemogram (12/12/2021 1:25 AM EST) White Blood Cell 8.9 4.0 - 9.5 x10(3)/mc L [facility] Red Blood Cell 4.38(L) 4.58 - 5.54 x10(6)/mc L [facility] Hemoglobin 13.2(L) 13.7 - 16.5 g/dL [facility] Hematocrit 39.0(L) 40.5 - 48.5 % [facility] Mean Cell Volume 89.0 82.9 - 93.1 fL [facility] Mean Cell Hemoglobin 30.1 27.5 - 32.1 pg [facility] Mean Cell Hemoglobin Concentration 33.8 32.0 - 35.7 g/dL [facility] Platelet 183 145 - 357 x10(3)/mc L [facility] RDW Standard Deviation 45.0 36.0 - 45.0 [facility] RDW coefficient of variation 13.7 11.4 - 13.8 % [facility] Mean Platelet Volume 10.2 7.6 - 12.9 [facility] NRBC% auto 0.0 % [facility] NRBC Absolute 0.000 0.000 - 0.000 x10(3)/mc L [facility] Blood 12/12/2021 1:25 AM EST 12/12/2021 1:34 AM EST Narrative Resulting Agency Comment Spec In Lab Rayna High MD HEMATOLOGY ORDERABLE S [facility] [place] [address] * Lactate, whole blood, send to lab ([facility]) (12/12/2021 1:25 AM EST) Lactate WB 1.2 0.5 - 2.2 mmol/L [facility] Blood Venous Draw / Unknown 12/12/2021 1:25 AM EST 12/12/2021 1:31 AM EST Narrative Resulting Agency Comment Spec In Lab Carlos Manuel Dodson MD CHEMISTRY ORDERABLE S Performing Organization Address City/[facility]/ZIP Co de Phone Number [facility] [place] [address] * Ethanol Level (12/12/2021 1:25 AM EST) Ethanol <100 <=99 mg/L [facility] Comment: Greater than 800 mg/L (0.08%) should be considered intoxicated. 3400 to 4500 mg/L (0.34 - 0.45%) is considered severe intoxication. Greater than 5500 mg/L (0.55%) is usually fatal. Blood 12/12/2021 1:25 AM EST 12/12/2021 1:34 AM EST Narrative Resulting Agency Comment Spec In Lab Rayna High MD CHEMISTRY ORDERABLES Performing Organization Address City/[facility]/ZIP Co de Phone Number [facility] [place] [address] * Basic Metabolic Panel (non-fasting) (12/12/2021 1:25 AM EST) Glucose 96 65 - 199 mg/dL [facility] Comment:Diabetes: >=200 mg/d L plus symptoms Blood Urea Nitrogen 17 10 - 20 mg/dL [facility] Creatinine 0.94 0.80 - 1.50 mg/dL [facility] Sodium 137 135 - 145 mmol/L [facility] Potassium 4.2 3.5 - 5.0 mmol/L [facility] Comment: Please note: ??Patients with WBC >100,000 may have falsely elevated Potassium levels. ??For accurate Potassium quantification in these patients send serum separator tube (gold top) for subsequent determinations. ??Contact the Clinical Chemistry Laboratory if there are any questions. Chloride 101 98 - 107 mmol/L [facility] Carbon Dioxide 25 22 - 31 mmol/L [facility] Anion Gap 11 5 - 15 mmol/L [facility] Calcium 9.2 8.5 - 10.5 mg/dL [facility] Est Glomerular Filtration Rate 81 >=60 mL/min/1. 73 m?? [facility] Comment: This patient? s estimated glomerular filtration rate (eGFR) is between 81 mL/min/1.73 m2 (patients with less muscle mass per kg body weight) and 94 mL/min/1.73 m2 (patients with more muscle mass per kg body weight) as determined by the CKD-EPI equation. Assessment of eGFR is not appropriate when creatinine concentrations are rapidly changing. For clinical decisions where creatinine clearance will affect therapy, a 24-hour urine creatinine clearance may be advised. Assignment of CKD stage 1 - 5 for patients with an eGFR near the transition point between stages may be based on clinical assessment of muscle mass and symptoms in addition to eGFR. Blood 12/12/2021 1:25 AM EST 12/12/2021 1:34 AM EST Narrative Resulting Agency Comment Spec In Lab Rayna High MD CHEMISTRY ORDERABLES [facility] [place] [address] * Type and Screen Validity (12/12/2021 1:24 AM EST) [facility] T&S only valid at [facility] Comment:This Type and Screen result is only valid at the [facility] Blood 12/12/2021 1:24 AM EST 12/12/2021 1:30 AM EST Narrative Resulting Agency Comment Spec In Lab Carlos Manuel Dodson MD BLOOD BANK LAB ORDFlaca SAEZ [facility] [place] [address] * ABORH Recheck Status (12/12/2021 1:24 AM EST) ABORH Type Recheck Completed [facility] Blood 12/12/2021 1:24 AM EST 12/12/2021 1:30 AM EST Narrative Resulting Agency Comment Spec In Lab Carlos Manuel Dodson MD BLOOD BANK LAB ORDFlaca SAEZ Performing Organization Address [facility]/ZIP Co de Phone Number [facility] [place] [address] * Antibody screen (12/12/2021 1:24 AM EST) Ab Screen Interp Negative [facility] Expires at [id number] on: 12/15/2021 [facility] Blood 12/12/2021 1:24 AM EST 12/12/2021 1:30 AM EST Narrative Resulting Agency Comment Spec In Lab Carlos Manuel Dodson MD BLOOD BANK LAB ORDFlaca SAEZ Performing Organization Address City/[facility]/ZIP Co de Phone Number [facility] [place] [address] * ABO/Rh Typing (12/12/2021 1:24 AM EST) ABORH Type A Neg [facility] Blood 12/12/2021 1:24 AM EST 12/12/2021 1:30 AM EST Narrative Resulting Agency Comment Spec In Lab Carlos Manuel Dodson MD BLOOD BANK LAB ORDFlaca SAEZ Performing Organization Address City/[facility]/ZIP Co de Phone Number [facility] [place] [address] documented in this encounter Visit Diagnoses Diagnosis Closed fracture of multiple ribs, unspecified laterality, initial encounter Lung nodule Solitary pulmonary nodule Rib fractures Closed fracture of rib(s), unspecified Closed fracture of multiple ribs, unspecified laterality, initial encounter documented in this encounter Admitting Diagnoses Diagnosis Rib fractures Closed fracture of rib(s), unspecified documented in this encounter Administered Medications Inactive Administered Medications - up to 3 most recent administrations Medication Order MAR Action Action Date Dose Rate Site acetaminophen (Tylenol) tablet 1,000 mg 1,000 mg, Oral, EVERY 6 HOURS SCHEDULED, First dose on Mon12/12/21 at 0656, Until Discontinued, Should be used concomitantly if other analgesics are ordered. Maximum dose of acetaminophen is 4000 mg from all sources in 24 hours., Routine Given 12/12/2021 8:06 AM EST 1,000 mg acetaminophen (Tylenol) tablet 650 mg 650 mg, Oral, EVERY 8 HOURS SCHEDULED, First dose (after last modification) on Mon12/12/21 at 1400, Until Discontinued, Should be used concomitantly if other analgesics are ordered. Maximum dose of acetaminophen is 4000 mg from all sources in 24 hours., Routine Given 12/16/2021 5:30 AM EST 650 mg Given 12/15/2021 11:49 PM EST 650 mg Given 12/15/2021 1:25 PM EST 650 mg bisacodyL (Dulcolax) suppository 10 mg 10 mg, Rectal, DAILY PRN, Starting on Mon12/12/21 at 1250, Until Mon12/16/21 at 1536, Constipation, Administer if no bowel movement within 48 hours to achieve: (1) One bowel movement at least every 48 hours, AND (2) without straining. If multiple PRN bowel medications ordered, start with polyethylene glycol, then lactulose, then oral bisacodyl, then bisacodyl suppository, then magnesium citrate, then tap water enema. Multiple medications may be given concomitantly for constipation., Routine cyclobenzaprine (Flexeril) tablet 5 mg 5 mg, Oral, 3 TIMES DAILY PRN, Starting on Mon12/14/21 at 1728, Until Mon12/15/21 at 0841, Muscle spasms, Routine Given 12/15/2021 3:56 AM EST 5 mg Given 12/14/2021 9:04 PM EST 5 mg Given 12/14/2021 5:49 PM EST 5 mg enoxaparin (Lovenox) (120 mg/0.8 mL) subcutaneous injection 120 mg 120 mg, Subcutaneous, NIGHTLY, First dose on Mon12/15/21 at 1500, Until Discontinued, Dosed at 1.5 mg/kg subcut q24h, rounded dose, Routine Given 12/15/2021 2:48 PM EST 120 mg famotidine (Pepcid) tablet 20 mg 20 mg, Oral, 2 TIMES DAILY, First dose on Mon12/12/21 at 0900, Until Discontinued, If unable to take PO, may give IV, Routine Given 12/14/2021 9:04 PM EST 20 m g Given 12/12/2021 8:46 PM EST 20 mg Given 12/12/2021 10:59 AM EST 20 mg fentaNYL (PF) (50 mcg/mL) injection 50 mcg 50 mcg, Intravenous, PER TRAUMA ANALGESIC PROTOCOL, Starting on Mon12/12/21 at 0115, Until Mon12/12/21 at 0750, Pain, Every 5-15 minutes PRN , STAT Given 12/12/2021 3:40 AM EST 50 mcg Given 12/12/2021 1:25 AM EST 50 mcg heparin (porcine) 50 units/mL in sodium chloride 0.45% 500 mL infusion 0-5,000 Units/hr (0-100 mL/hr), Intravenous, CONTINUOUS, Starting on Mon12/13/21 at 1630, Until Mon12/15/21 at 1301, Begin infusion at 1,300 units per hr (15 units/kg/hr). Maximum initial infusion rate is 2,000 units/hr Infusion doses are rounded to the nearest 50 units. Target Heparin UFH Level (anti-Xa activity) = 0.3 - 0.7 international unit/mL Start adjustment schedule 6 hours after starting infusion. If Heparin UFH Level is: - Less than 0.1 international unit/mL: Administer PRN bolus and increase rate by 350 units per hr (4 units/kg/hr) - 0.1 - 0.19 international unit/mL: Administer PRN bolus and increase rate by 150 units per hr (2 units/kg/hr) - 0.2 - 0.29 international unit/mL: NO BOLUS and increase rate by 150 units per hr (2 units/kg/hr) - 0.3 - 0.7 international unit/mL: No change - 0.71 - 0.79 international unit/mL: NO BOLUS and decrease rate by 100 units per hr (1 units/kg/hr) - 0.8 - 0.99 international unit/mL: NO BOLUS and decrease rate by 150 units per hr (2 units/kg/hr) - Greater than or equal to 1.00 international unit/mL: Hold infusion for 60 minutes then decrease rate by 250 units per hour (3 units/kg/hr) Repeat Heparin UFH Level 6 hours after initiating heparin. Then 6 hours after each dose adjustment. When 2 consecutive Heparin UFH Level within target range of 0.3 - 0.7 international unit/mL, change Heparin UFH Level to once every 24 hours with A.M. labs while on heparin. RN to order required Heparin UFH Level - Per Protocol, Routine Rate/Dose Change 12/15/2021 7:00 AM EST 1,150 Units/hr 23 mL/hr New Bag 12/15/2021 5:28 AM EST 1,300 Units/hr 26 mL/hr New Bag 12/14/2021 11:40 AM EST 1,300 Units/hr 26 mL/hr iohexoL (Omnipaque) (350 mg/mL) solution 0-200 mL 0-200 mL, Intravenous, ONCE PRN, 1 dose, Starting on [place] 12/12/21 at 0352, Until [place] 12/12/21 at 0403, Per Protocol, Warning Vesicant/Irritant Medication , Radiology Contrast, Routine Given 12/12/2021 4:03 AM EST 93 mLs ketorolac (Toradol) (30 mg/mL) injection 15 mg 15 mg, Intravenous, EVERY 8 HOURS SCHEDULED, 15 doses, First dose on [place] 12/12/21 at 0656, Last dose on [facility] 12/16/21 at 2200, Routine Given 12/13/2021 1:10 PM EST 15 mg Given 12/13/2021 5:31 AM EST 15 mg Given 12/12/2021 9:47 PM EST 15 mg lidocaine (Lidoderm) 5% patch 2 patch 2 patch, Transdermal, EVERY 24 HOURS, First dose on [place] 12/12/21 at 0800, Until Discontinued, Apply patch(es) for 12 hours, and then remove for 12 hours., Routine Patch Applied 12/16/2021 9:02 AM EST 2 patches 07- Back Lower (Left) Patch Applied 12/15/2021 7:51 AM EST 2 patches 13- Abdomen (Left) Patch Applied 12/14/2021 8:30 AM EST 2 patches 13- Abdomen (Left) lidocaine (Lidoderm) topical patch REMOVAL Transdermal, EVERY 24 HOURS, First dose on Mon12/12/21 at 2000, Until Discontinued, Remove lidocaine 5% patch lidocaine (Xylocaine) 1% (10 mg/mL) injection 3 mg 3 mg (0.3 mL), Subcutaneous, ONCE PRN, 1 dose, Starting on Mon12/12/21 at 0750, Until Idalmis 12/16/21 at 1536, for discomfort with PIV insertion, Recovery (Recovery-Hospital Unit), Routine naloxone (Narcan) (0.4 mg/mL) injection 0.2 mg 0.2 mg, Intravenous, EVERY 1 MIN PRN, Starting on Mon12/12/21 at 0750, Until Idalmis 12/16/21 at 1536, Opioid Reversal, If respiratory rate less than 6 OR the patient is unable to arouse OR SpO2 is declining, Give for respiratory rate of less than or equal to 6 and patient is heavily sedated or unarousable. May repeat every 60 seconds to increase respiratory rate. DO NOT exceed 2 mg total dose., Recovery (Recovery-Hospital Unit), Routine oxyCODONE (Roxicodone) tablet 2.5 mg 2.5 mg, Oral, EVERY 4 HOURS PRN, Starting on Mon12/12/21 at 1244, Until Mon12/15/21 at 0540, Pain, only for pain that is not better with tylenol, lidoderm, Routine Given 12/15/2021 3:56 AM EST 2.5 mg Given 12/14/2021 5:49 PM EST 2.5 mg Given 12/14/2021 12:32 PM EST 2.5 mg oxyCODONE (Roxicodone) tablet 2.5-5 mg 2.5-5 mg, Oral, EVERY 4 HOURS PRN, Starting on Mon12/15/21 at 0540, Until Idalmis 12/16/21 at 0729, Pain, only for pain that is not better with tylenol, lidoderm, 2.5 mg for pain 1-7/10 5mg for pain +8/10, Routine Given 12/15/2021 8:41 PM EST 2.5 mg pantoprazole (Protonix) injection 20 mg 20 mg, Intravenous, DAILY, First dose on Mon12/15/21 at 0900, Until Discontinued Given 12/16/2021 9:04 AM EST 20 mg Given 12/15/2021 8:43 AM EST 20 mg senna-docusate (Pericolace) 8.6-50 mg per tablet 2 tablet 2 tablet, Oral, 2 TIMES DAILY, First dose on Mon12/12/21 at 1345, Until Discontinued, Routine Given 12/16/2021 9:03 AM EST 2 tablets Given 12/15/2021 8:41 PM EST 2 tablets Given 12/15/2021 8:47 AM EST 2 tablets sodium chloride (Pepin) 0.65 % nasal spray 1 spray 1 spray, Each Nare, 2 TIMES DAILY PRN, Starting on Mon12/12/21 at 1330, Until Idalmis 12/16/21 at 1536, Congestion, Routine sodium chloride 0.9 % (flush) (BD PosiFlush Normal Saline 0.9) flush 5 mL 5 mL, Intravenous, 2 TIMES DAILY, First dose on Mon12/12/21 at 0900, Until Discontinued, Recovery (Recovery-Hospital Unit), Routine Given 12/16/2021 9:04 AM EST 5 mLs Given 12/15/2021 8:42 PM EST 5 mLs Given 12/15/2021 8:47 AM EST 5 mLs sodium chloride 0.9 % (flush) (BD PosiFlush Normal Saline 0.9) flush 5-20 mL 5-20 mL, Intravenous, EVERY 1 MIN PRN, Starting on Mon12/12/21 at 0750, Until Idalmis 12/16/21 at 1536, flush, Flush pertains to all indwelling lines. Flush per protocol found in the job aid using the link provided on this medication record., Recovery (Recovery-Hospital Unit), Routine tamsulosin (Flomax) capsule 0.4 mg 0.4 mg, Oral, DAILY, First dose on Mon12/12/21 at 0900, Until Discontinued, DO NOT CRUSH OR OPEN, Routine Given 12/16/2021 9:04 AM EST 0.4 mg Given 12/15/2021 8:47 AM EST 0.4 mg Given 12/14/2021 8:29 AM EST 0.4 mg warfarin (COUMADIN) daily order reminder Oral, EVERY 24 HOURS, First dose on Mon12/14/21 at 1400, Until Discontinued, If the daily warfarin order has not been placed, contact the Provider to confirm that the order will be written, the dose is held or discontinued. warfarin (Coumadin) tablet 10 mg 10 mg, Oral, ONCE, 1 dose, On Mon12/13/21 at 1700, DO NOT SPLIT, CRUSH OR OPEN, Routine Given 12/13/2021 4:46 PM EST 10 mg warfarin (Coumadin) tablet 10 mg 10 mg, Oral, ONCE, 1 dose, On Mon12/14/21 at 1700, DO NOT SPLIT, CRUSH OR OPEN, Routine Given 12/14/2021 5:24 PM EST 10 mg warfarin (Coumadin) tablet 7.5 mg 7.5 mg, Oral, ONCE, 1 dose, On Mon12/15/21 at 1700, DO NOT SPLIT, CRUSH OR OPEN, Routine Given 12/15/2021 5:10 PM EST 7.5 mg documented in this encounter Active and Recently Administered Medications Times are shown in EST. Scheduled Medication Order 12/14/2021 12/15/2021 12/16/2021 acetaminophen (Tylenol) tablet 650 mg 650 mg, Oral, EVERY 8 HOURS SCHEDULED, First dose (after last modification) on Mon12/12/21 at 1400, Until Discontinued, Should be used concomitantly if other analgesics are ordered. Maximum dose of acetaminophen is 4000 mg from all sources in 24 hours., Routine 0522 (Given - Provider: Willi Anderson RN)1310 (Given - Provider: Luzma Olivarez, DAVIN)210 (Given - Provider: Willi Anderson, DAVIN) 0529 (Given - Provider: Willi Anderson RN)1325 (Given - Provider: Luzma Olivarez, DAVIN)234 (Given - Provider: Willi Anderson RN) 0530 (Given - Provider: Willi Anderson RN) enoxaparin (Lovenox) (120 mg/0.8 mL) subcutaneous injection 120 mg 120 mg, Subcutaneous, NIGHTLY, First dose on Mon12/15/21 at 1500, Until Discontinued, Dosed at 1.5 mg/kg subcut q24h, rounded dose, Routine 1448 (Given - Provider: Luzma Olivarez RN)2040 (Not Given - Provider: Willi Anderson RN - Reason: See comment - Comment: Previously given) famotidine (Pepcid) tablet 20 mg (CANCELED)(Linked Group 1) 20 mg, Oral, 2 TIMES DAILY, First dose on 12/12/21 at 0900, Until Discontinued, If unable to take PO, may give IV, Routine 0900 (Not Given - Provider: Luzma Olivarez RN - Reason: Patient/family refused)2103 (Given - Provider: Willi Anderson RN) lidocaine (Lidoderm) 5% patch 2 patch(Linked Group 2) 2 patch, Transdermal, EVERY 24 HOURS, First dose on 12/12/21 at 0800, Until Discontinued, Apply patch(es) for 12 hours, and then remove for 12 hours., Routine 0830 (Patch Applied - Provider: Luzma Olivarez RN) 0751 (Patch Applied - Provider: Luzma Olivarez RN) 09 (Patch Applied - Provider: Davina Novak, DAVIN) lidocaine (Lidoderm) topical patch REMOVAL(Linked Group 2) Transdermal, EVERY 24 HOURS, First dose on 12/12/21 at 2000, Until Discontinued, Remove lidocaine 5% patch 1999 (Patch Removed - Provider: Willi Anderson RN) 1999 (Patch Removed - Provider: Willi Anderson RN) pantoprazole (Protonix) injection 20 mg 20 mg, Intravenous, DAILY, First dose on Mon12/15/21 at 0900, Until Discontinued 0843 (Given - Provider: Luzma Olivarez RN) 09 (Given - Provider: Davina Novak, DAVIN) senna-docusate (Pericolace) 8.6-50 mg per tablet 2 tablet 2 tablet, Oral, 2 TIMES DAILY, First dose on 12/12/21 at 1345, Until Discontinued, Routine 0829 (Given - Provider: Luzma Olivarez RN)210 (Given - Provider: Willi Anderson RN) 0847 (Given - Provider: Luzma Olivarez RN)2040 (Given - Provider: Willi Anderson RN) 0903 (Given - Provider: Davina Novak RN) sodium chloride 0.9 % (flush) (BD PosiFlush Normal Saline 0.9) flush 5 mL 5 mL, Intravenous, 2 TIMES DAILY, First dose on Mon12/12/21 at 0900, Until Discontinued, Recovery (Recovery-Hospital Unit), Routine 0830 (Given - Provider: Luzma Olivarez RN)2104 (Given - Provider: Willi Anderson RN) 0847 (Given - Provider: Luzma Olivarez RN)2041 (Given - Provider: Willi Anderson RN) 0904 (Given - Provider: Davina Novak RN) tamsulosin (Flomax) capsule 0.4 mg 0.4 mg, Oral, DAILY, First dose on Mon12/12/21 at 0900, Until Discontinued, DO NOT CRUSH OR OPEN, Routine 08 (Given - Provider: Luzma Olivarez RN) 08 (Given - Provider: Luzma Olivarez RN) 09 (Given - Provider: Davina Novak RN) warfarin (COUMADIN) daily order reminder Oral, EVERY 24 HOURS, First dose on Mon12/14/21 at 1400, Until Discontinued, If the daily warfarin order has not been placed, contact the Provider to confirm that the order will be written, the dose is held or discontinued. 1400 (Warfarin discontinued - Provider: Luzma Olivarez RN - Comment: Provider is referring pt to thoracic surgery for possible plate. MD will reorder after consult and POC determined) 1400 (Dose confirmed - Provider: Luzma Olivarez RN) warfarin (Coumadin) tablet 10 mg (COMPLETED) 10 mg, Oral, ONCE, 1 dose, On Mon12/14/21 at 1700, DO NOT SPLIT, CRUSH OR OPEN, Routine 1724 (Given - Provider: Luzma Olivarez RN) warfarin (Coumadin) tablet 7.5 mg (COMPLETED) 7.5 mg, Oral, ONCE, 1 dose, On Mon12/15/21 at 1700, DO NOT SPLIT, CRUSH OR OPEN, Routine 1710 (Given - Provider: Luzma Olivarez RN) Continuous Medication Order 12/14/2021 12/15/2021 12/16/2021 heparin (porcine) 50 units/mL in sodium chloride 0.45% 500 mL infusion (CANCELED)(Linked Group 3) 0-5,000 Units/hr (0-100 mL/hr), Intravenous, CONTINUOUS, Starting on Mon12/13/21 at 1630, Until Mon12/15/21 at 1301, Begin infusion at 1,300 units per hr (15 units/kg/hr). Maximum initial infusion rate is 2,000 units/hr Infusion doses are rounded to the nearest 50 units. Target Heparin UFH Level (anti-Xa activity) = 0.3 - 0.7 international unit/mL Start adjustment schedule 6 hours after starting infusion. If Heparin UFH Level is: - Less than 0.1 international unit/mL: Administer PRN bolus and increase rate by 350 units per hr (4 units/kg/hr) - 0.1 - 0.19 international unit/mL: Administer PRN bolus and increase rate by 150 units per hr (2 units/kg/hr) - 0.2 - 0.29 international unit/mL: NO BOLUS and increase rate by 150 units per hr (2 units/kg/hr) - 0.3 - 0.7 international unit/mL: No change - 0.71 - 0.79 international unit/mL: NO BOLUS and decrease rate by 100 units per hr (1 units/kg/hr) - 0.8 - 0.99 international unit/mL: NO BOLUS and decrease rate by 150 units per hr (2 units/kg/hr) - Greater than or equal to 1.00 international unit/mL: Hold infusion for 60 minutes then decrease rate by 250 units per hour (3 units/kg/hr) Repeat Heparin UFH Level 6 hours after initiating heparin. Then 6 hours after each dose adjustment. When 2 consecutive Heparin UFH Level within target range of 0.3 - 0.7 international unit/mL, change Heparin UFH Level to once every 24 hours with A.M. labs while on heparin. RN to order required Heparin UFH Level - Per Protocol, Routine 1140 (New Bag - Provider: Luzma Olivarez RN) 0528 (New Bag - Provider: Willi Anderson RN)0700 (Rate/Dose Change - Provider: Willi Anderson RN)1301 (Stopped - Provider: Luzma Olivarez RN) PRN Medication Order 12/14/2021 12/15/2021 12/16/2021 bisacodyL (Dulcolax) suppository 10 mg 10 mg, Rectal, DAILY PRN, Starting on Mon12/12/21 at 1250, Until Idalmis 12/16/21 at 1536, Constipation, Administer if no bowel movement within 48 hours to achieve: (1) One bowel movement at least every 48 hours, AND (2) without straining. If multiple PRN bowel medications ordered, start with polyethylene glycol, then lactulose, then oral bisacodyl, then bisacodyl suppository, then magnesium citrate, then tap water enema. Multiple medications may be given concomitantly for constipation., Routine cyclobenzaprine (Flexeril) tablet 5 mg (CANCELED) 5 mg, Oral, 3 TIMES DAILY PRN, Starting on Mon12/14/21 at 1728, Until Mon12/15/21 at 0841, Muscle spasms, Routine 1749 (Given - Provider: Luzma Olivarez RN)2104 (Given - Provider: Willi Anderson RN) 0356 (Given - Provider: Willi Anderson RN) lidocaine (Xylocaine) 1% (10 mg/mL) injection 3 mg 3 mg (0.3 mL), Subcutaneous, ONCE PRN, 1 dose, Starting on Mon12/12/21 at 0750, Until Idalmis 12/16/21 at 1536, for discomfort with PIV insertion, Recovery (Recovery-Hospital Unit), Routine naloxone (Narcan) (0.4 mg/mL) injection 0.2 mg 0.2 mg, Intravenous, EVERY 1 MIN PRN, Starting on Mon12/12/21 at 0750, Until Idalmis 12/16/21 at 1536, Opioid Reversal, If respiratory rate less than 6 OR the patient is unable to arouse OR SpO2 is declining, Give for respiratory rate of less than or equal to 6 and patient is heavily sedated or unarousable. May repeat every 60 seconds to increase respiratory rate. DO NOT exceed 2 mg total dose., Recovery (Recovery-Hospital Unit), Routine oxyCODONE (Roxicodone) tablet 2.5 mg (CANCELED) 2.5 mg, Oral, EVERY 4 HOURS PRN, Starting on Mon12/12/21 at 1244, Until Mon12/15/21 at 0540, Pain, only for pain that is not better with tylenol, lidoderm, Routine 0827 (Given - Provider: Luzma Olivarez, DAVIN)1232 (Given - Provider: Luzma Olivarez, RN)1749 (Given - Provider: Luzma Olivarez, RN) 0356 (Given - Provider: Willi Anderson, RN) oxyCODONE (Roxicodone) tablet 2.5-5 mg (CANCELED) 2.5-5 mg, Oral, EVERY 4 HOURS PRN, Starting on Mon12/15/21 at 0540, Until Idalmis 12/16/21 at 0729, Pain, only for pain that is not better with tylenol, lidoderm, 2.5 mg for pain 1-7/10 5mg for pain +8/10, Routine 2041 (Given - Provider: Willi Anderson, DAVIN) sodium chloride (Pepin) 0.65 % nasal spray 1 spray 1 spray, Each Nare, 2 TIMES DAILY PRN, Starting on Mon12/12/21 at 1330, Until Idalmis 12/16/21 at 1536, Congestion, Routine sodium chloride 0.9 % (flush) (BD PosiFlush Normal Saline 0.9) flush 5-20 mL 5-20 mL, Intravenous, EVERY 1 MIN PRN, Starting on Mon12/12/21 at 0750, Until Idalmis 12/16/21 at 1536, flush, Flush pertains to all indwelling lines. Flush per protocol found in the job aid using the link provided on this medication record., Recovery (Recovery-Hospital Unit), Routine Linked Groups Order Group 1: famotidine (Pepcid) tablet 20 mg (CANCELED)Jump to med 20 mg, Oral, 2 TIMES DAILY, First dose on Mon12/12/21 at 0900, Until Discontinued, If unable to take PO, may give IV, Routine Or famotidine (Pepcid) (10 mg/mL) injection 20 mg (CANCELED) 20 mg, Intravenous, 2 TIMES DAILY, First dose on 12/12/21 at 0900, Until Discontinued, Routine Group 2: lidocaine (Lidoderm) 5% patch 2 patchJump to med 2 patch, Transdermal, EVERY 24 HOURS, First dose on 12/12/21 at 0800, Until Discontinued, Apply patch(es) for 12 hours, and then remove for 12 hours., Routine And lidocaine (Lidoderm) topical patch REMOVALJump to med Transdermal, EVERY 24 HOURS, First dose on 12/12/21 at 2000, Until Discontinued, Remove lidocaine 5% patch Group 3: heparin (porcine) (1,000 units/mL) injection 0-8,000 Units (CANCELED) 0-8,000 Units, Intravenous, BOLUS PER HEPARIN PROTOCOL, Starting on Mon12/13/21 at 1526, Until Mon12/15/21 at 1301, Per Protocol, START ADJUSTMENT SCHEDULE 6 HOURS AFTER STARTING INFUSION Bolus doses are rounded to the nearest 100 units. If Heparin UFH Level is: - Less than 0.1 international unit/mL: Bolus 70 units/kg (Maximum of 8,000 units) = Bolus 6,000 units - 0.1 - 0.19 International unit/mL: Bolus 35 units/kg (Maximum of 4,000 units) = Bolus 3,000 units - Equal to or greater than 0.2 international unit/mL: No Bolus, Routine And heparin (porcine) 50 units/mL in sodium chloride 0.45% 500 mL infusion (CANCELED)Jump to med 0-5,000 Units/hr (0-100 mL/hr), Intravenous, CONTINUOUS, Starting on Mon12/13/21 at 1630, Until Mon12/15/21 at 1301, Begin infusion at 1,300 units per hr (15 units/kg/hr). Maximum initial infusion rate is 2,000 units/hr Infusion doses are rounded to the nearest 50 units. Target Heparin UFH Level (anti-Xa activity) = 0.3 - 0.7 international unit/mL Start adjustment schedule 6 hours after starting infusion. If Heparin UFH Level is: - Less than 0.1 international unit/mL: Administer PRN bolus and increase rate by 350 units per hr (4 units/kg/hr) - 0.1 - 0.19 international unit/mL: Administer PRN bolus and increase rate by 150 units per hr (2 units/kg/hr) - 0.2 - 0.29 international unit/mL: NO BOLUS and increase rate by 150 units per hr (2 units/kg/hr) - 0.3 - 0.7 international unit/mL: No change - 0.71 - 0.79 international unit/mL: NO BOLUS and decrease rate by 100 units per hr (1 units/kg/hr) - 0.8 - 0.99 international unit/mL: NO BOLUS and decrease rate by 150 units per hr (2 units/kg/hr) - Greater than or equal to 1.00 international unit/mL: Hold infusion for 60 minutes then decrease rate by 250 units per hour (3 units/kg/hr) Repeat Heparin UFH Level 6 hours after initiating heparin. Then 6 hours after each dose adjustment. When 2 consecutive Heparin UFH Level within target range of 0.3 - 0.7 international unit/mL, change Heparin UFH Level to once every 24 hours with A.M. labs while on heparin. RN to order required Heparin UFH Level - Per Protocol, Routine documented in this encounter Care Teams Lab Aid Relationship Specialty Start Date End Date Linda Vang MD [address] [place] [address] PCP - General Family Medicine 10/20/16 documented as of this encounter
--- OUTSIDE RECORDS SUMMARY | 2024-07-17 21:48 | XMS_ITS | Encounter Summary ---
[place] [address] Care Team Providers Care Parlor Maid Name Role Phone Linda Mccray MD Primary Care Provider [phone] Encounter Details Date Type Department Care Team (Latest Contact Info) Description 10/12/2021 12:00 PM EST Laboratory Appointment Lab [address] [place] [id number] Recurrent spontaneous pneumothorax Social History Tobacco Use Types Packs/Day Years [...] Procedure Name Priority Date/Time Associated Diagnosis Comments HC CREATININE Routine 10/12/2021 11:52 AM EST Recurrent spontaneous pneumothorax documented in this encounter Results * Creatinine (10/12/2021 11:52 AM EST) Creatinine 0.98 0.80 - 1.50 mg/dL [facility] Est Glomerular Filtration Rate 77 >=60 mL/min/1. 73 m?? [facility] Comment: This patient? s estimated glomerular filtration rate (eGFR) is between 77 mL/min/1.73 m2 (patients with less muscle mass per kg body weight) and 89 mL/min/1.73 m2 (patients with more muscle mass [...] and symptoms in addition to eGFR. Blood 10/12/2021 11:5 2 AM EST 10/12/2021 12:10 PM EST Narrative Resulting Agency Comment Spec In Lab Navin Khalil MD CHEMISTRY ORDERABLES [facility] [place] [address] documented in this encounter Visit Diagnoses Diagnosis Recurrent spontaneous pneumothorax Other pneumothorax documented in this encounter Care Teams Parlor Maid Relationship Specialty Start Date End Date Linda Mccray MD [address] [place] [address] PCP - General Family Medicine 10/20/16 documented as of this encounter
--- OUTSIDE RECORDS SUMMARY | 2024-07-17 21:48 | XMS_ITS | Encounter Summary ---
Author Organization [facility] [place] [address] Care Team Providers Care Paint Technician Name Role Phone Linda Mccray MD Primary Care Provider [phone] Encounter Details Date Type Department Care Team ([facility] st Contact Info) Description 11/25/2021 [place] [id number] Demetrius Sy III, MD [facility] [place] [address] Social History Tobacco Use Types Packs/Day Years [...] encounter Miscellaneous Notes * Telephone Encounter - Milan Garcia - 11/25/2021 10:55 AM EST LMOM x1 to schedule follow up with Dr. Sy in November in person documented in this encounter Plan of Treatment Not on file documented as of this encounter Visit Diagnoses Not on filedocumented in this encounter Care Teams Paint Technician Relationship Specialty Start Date End Date Linda Mccray MD [address] [place] [address] PCP - General Family Medicine 10/20/16 documented as of this encounter
--- OUTSIDE RECORDS SUMMARY | 2024-07-17 21:48 | XMS_ITS | Encounter Summary ---
[place] [address] Care Team Providers Care Technical Sales Director Name Role Phone Linda Mccray MD Primary Care Provider [phone] Reason for Referral * Consultation (Urgent) - Closed Specialty Diagnoses / Procedures Referred By Contac t Referred To Contact Urology Diagnoses Continuous leakage of urine 07/31/21 - CALLED X 1 -NOT URGENT- NPW NEXT AVAILABLE - Navin Khalil MD [facility] [place] [address] [facility] [place] [address] Referral ID Status Reason Start Date Expiration Date V isits Requested Visits Authorized [id number] Closed Consult, Test & Treat 07/14/2021 07/14/2022 1 1 Encounter Details Date Type Department Care Team (Late st Contact Info) Description 07/14/2021 Orders [place] [address] Carmen Ferrer, RN Continuous leakage of urine Social History Tobacco Use Types Packs/Day Years Used Date Smoking Tobacco: Former Cigarettes 1 35 Smokeless Tobacco: Former Quit: 1982 Alcohol Use [...] Associated Diagnoses Orde r Schedule Referral to Urology Outpatient Referral Routine Continuous leakage of urine Ordered: 07/14/2021 documented as of this encounter Visit Diagnoses Diagnosis Continuous leakage of urine Continuous leakage documented in this encounter Care Teams Technical Sales Director Relationship Specialty Start Date End Date Linda Mccray MD [address] [place] [address] PCP - General Family Medicine 10/20/16 documented as of this encounter
--- OUTSIDE RECORDS SUMMARY | 2024-07-17 21:48 | XMS_ITS | Encounter Summary ---
Author Organization [facility] Address [facility] [place] [address] Care Team Providers Care Diver Tender Name Role Phone Linda Mccray MD Primary Care Provider [phone] Encounter Details Date Type Department Care Team (Latest Contact Info) Description 06/21/2021 8:47 AM EDT - 06/21/2021 11:59 PM EDT Hospital Encounter Non-[place] [address] Tristan Olivera MD [facility] [place] [address] CHB (complete heart block) Discharge Disposition: Home [...] Sig Dispensed Refills Start Date End Date betamethasone dipropionate (DIPROLENE) 0.05 % Cream APPLY SMALL AMOUNT EXTERNALLY TO RASH TWICE DAILY FOR NO MORE THAN 2 WEEKS 01/15/2021 08/08/2023 dextroamphetamine-amphe tamine (Adderall) 10 mg Tablet Take 10 mg by mouth Daily. 02/03/2020 08/24/2021 enoxaparin (Lovenox) 80 mg/0.8 mL Syringe ADMINISTER 0.8 ML UNDER THE SKIN TWICE DAILY FOR 10 DAYS 03/13/2021 08/24/2021 acetaminophen (Tylenol) 500 mg Tablet Take 2 tablets by mouth every 6 hours as needed for Pain. 30 tablet 03/13/2021 08/24/2021 senna (Senokot) 8.6 mg Tablet Take 2 tablets by mouth 2 times daily. 40 tablet 03/13/2021 08/24/2021 aspirin 81 mg Tablet, Delayed Release (E.C.) TAKE ONE TABLET BY MOUTH EVERY DAY 3 10/13/2016 08/08/2023 warfarin (COUMADIN) 10 mg tablet 09/11/2007 12/16/2021 documented as of this encounter Plan of Treatment Pending Results Name Type Priority Associated Diagnoses Date/Time Cardiac Device Check - Remote Scheduled Implantable Cardiac Device Routine CHB (complete heart block) 06/21/2021 8:48 AM EDT Scheduled Orders Name Type Priority Associated Diagnoses Order Schedule Cardiac Device Check - Remote Scheduled Implantable Cardiac Device Routine CHB (complete heart block) 1 Occurrences starting 06/21/2021 until 06/21/2021 documented as of this encounter Visit Diagnoses Diagnosis CHB (complete heart block) Atrioventricular block, complete documented in this encounter Care Teams Diver Tender Relationship Specialty Start Date End Date Linda Mccray MD [address] [place] [address] PCP - General Family Medicine 10/20/16 documented as of this encounter
--- OUTSIDE RECORDS SUMMARY | 2024-07-17 21:48 | XMS_ITS | Encounter Summary ---
Author Organization [facility] [place] [address] Care Team Providers Care Critical Care Rn Name Role Phone Linda Mccray MD Primary Care Provider [phone] Encounter Details Date Type Department Care Team (Late st Contact Info) Description 01/07/2022 Orders Only [place] [address] Annemarie Gomez, SOLUTION DIRECTOR [facility] [place] [address] Trauma of chest, subsequent encounter Social History Tobacco Use Types Packs/Day Years [...] on file documented as of this encounter Results * XR Chest PA [...] have questions please contact the health healthcare liaison that requested your imaging first. ? Narrative 01/13/2022 11:17 AM EDT EXAMINATION: XR CHEST PA AND LATERAL (GENERIC) CLINICAL HISTORY: FU left hemothorax, evaluate for interval change, prior imagin in [facility] thank you TECHNIQUE: PA and lateral views [...] hemothorax, evaluate for interval change, priorimagin in [facility] thank you TECHNIQUE: PA and lateral views [...] who have questions please contactthe health healthcare liaison that requested your imaging first. Annemarie Gomez SOLUTION DIRECTOR IMG DX ORDERABLES documented in this encounter Visit Diagnoses Diagnosis Trauma of chest, subsequent encounter Trauma of chest, subsequent encounter documented in this encounter Care Teams Critical Care Rn Relationship Specialty Start Date End Date Linda Mccray MD [address] [place] [address] PCP - General Family Medicine 10/20/16 documented as of this encounter
--- OUTSIDE RECORDS SUMMARY | 2024-07-17 21:48 | XMS_ITS | Encounter Summary ---
Author Organization [facility] [place] [address] Care Team Providers Care Dental Ceramist Name Role Phone Linda Mccray MD Primary Care Provider [phone] Encounter Details Date Type Department Care Team (Late st Contact Info) Description 12/11/2021 8:55 PM EST Ancillary Procedure Radiology Library at [facility] [place] [id number] Linda Mccray MD [address] [place] [address] Social History Tobacco Use Types Packs/Day Years [...] Diagnosis Comments FILM LIBRARY STORAGE ONLY DX CHEST Routine 12/11/2021 8:52 PM EST documented in this encounter Results * Film Library- Storage Only DX Chest (12/11/2021 8:52 PM EST) Narrative [facility] - 12/11/2021 8:52 PM EST This exam is auto-finalizing. It's purpose is for storage only. Linda Mccray MD [facility] FILM LIBRARY ORD ERABLES [place], [place] documented in this encounter Visit Diagnoses Not on filedocumented in this encounter Care Teams Dental Ceramist Relationship Specialty Start Date End Date Linda Mccray MD [address] [place] [address] PCP - General Family Medicine 10/20/16 documented as of this encounter
--- OUTSIDE RECORDS SUMMARY | 2024-07-17 21:48 | XMS_ITS | Encounter Summary ---
Author Organization [facility] [place] [address] Care Team Providers Care Developmental Training Counselor Name Role Phone Linda Mccray MD Primary Care Provider [phone] Reason for Visit * Reason Comments Medication Refill Encounter Details Date Type Department Care Team (Late st Contact Info) Description 12/20/2021 Refill General Surgery at [facility] [place] [address] Albina Quach, BEAN WEIGHER [facility] [place] [address] Social History Tobacco Use Types Packs/Day Years [...] on filedocumented in this encounter Care Teams Developmental Training Counselor Relationship Specialty Start Date End Date Linda Mccray MD [address] [place] [address] PCP - General Family Medicine 10/20/16 documented as of this encounter
--- OUTSIDE RECORDS SUMMARY | 2024-07-17 21:48 | XMS_ITS | Encounter Summary ---
Author [facility] [place] [address] Care Team Providers Care Transition Mgr Rn Name Role Phone Linda Mccray MD Primary Care Provider [phone] Encounter Details Date Type Department Care Team (Late st Contact Info) Description 08/26/2021 [place] [address] [facility] [place] [address] Social History Tobacco Use Types Packs/Day Years [...] on filedocumented in this encounter Care Teams Transition Mgr Rn Relationship Specialty Start Date End Date Linda Mccray MD [address] [place] [address] PCP - General Family Medicine 10/20/16 documented as of this encounter
--- OUTSIDE RECORDS SUMMARY | 2024-07-17 21:48 | XMS_ITS | Encounter Summary ---
[place] [address] Care Team Providers Care Web Applications Developer Name Role Phone Linda Mccray MD Primary Care Provider [phone] Reason for Referral * Diagnostic Test (Routine) - Closed Specialty Diagnoses / Procedures Referred By Contac t Referred To Contact Radiology Diagnoses Recurrent spontaneous pneumothorax Procedures CT Chest w Contrast Navin Khalil MD [facility] [place] [address] [facility] [place] [address] Referral ID Status Reason Start Date Expiration Date V isits Requested Visits Authorized [id number] Closed Specialty Service Requested 03/30/2021 09/29/2022 1 1 Reason for Visit * Diagnostic Test (Routine) - Closed Specialty Diagnoses / Procedures Referred By Contac t Referred To Contact Radiology Diagnoses Recurrent spontaneous pneumothorax Procedures CT Chest w Contrast Navin Khalil MD [facility] [place] [address] [facility] [place] [address] Referral ID Status Reason Start Date Expiration Date V isits Requested Visits Authorized [id number] Closed Specialty Service Requested 03/30/2021 09/29/2022 1 1 Encounter Details Date Type Department Care Team (Latest Contact Info) Description 10/12/2021 12:00 PM EST - 10/12/2021 11:59 PM EST Hospital En[place] [address] Navin Khalil MD [facility] [place] [address] Recurrent spontaneous pneumothorax Discharge Disposition: Home Social History Tobacco Use [...] Priority Date/Time Associated Diagnosis Comments CT CHEST W CONTRAST Routine 10/12/2021 1:42 PM EST Recurrent spontaneous pneumothorax documented in this encounter Results * CT Chest w Contrast (10/12/2021 1:42 PM EST) Anatomical Region Laterality Modality Chest Computed Tomogra phy 10/12/2021 2:01 PM EST Impressions 10/12/2021 2:35 PM EST No suspicious pulmonary nodules. Extensive centrilobular emphysematous disease. Thank you for letting us participate in the care of this patient. ??If you are a health care provider and have any questions regarding this report, please contact the number below. ??For patients who have questions please contact the health medication care manager that requested your imaging first. ? Narrative 10/12/2021 2:35 PM EST EXAMINATION: CT CHEST W CONTRAST CLINICAL HISTORY: Pleural effusion Patient is S/P L partial decort, blebectomy, talc pleurodesis 03/06 and repeat L clot evac 03/09, eval for changes/PTX/Effusion TECHNIQUE: 3.75 mm thick axial contiguous sections were obtained through the chest via helical acquisition after the intravenous administration of contrast, Administered 60.0 ml of OMNIPAQUE 350.00 mg/ml. Thin-section reconstructions as well as coronal and sagittal reformatted images were generated. COMPARISON: 11/18/2016 FINDINGS: Pulmonary parenchyma: Extensive centrilobular emphysematous disease most prominent in the upper to mid lungs bilaterally. No areas of airspace consolidation. No suspicious pulmonary nodules. Airways: No endobronchial lesions Pleura: No pleural effusions. Resolution of previously noted trace LEFT pleural effusion. Lymph nodes: Mild RIGHT hilar adenopathy, stable. Specific. Heart, pericardium, and great vessels: No pericardial effusion Other mediastinal structures: No significant findings. Lower neck: No significant findings. Upper abdomen: No significant findings. Body wall soft tissues: No significant findings. Skeletal structures: Healed RIGHT lateral rib fractures. Procedure Note Matti Palacio MD - 10/12/2021 EXAMINATION: CT CHEST W CONTRAST CLINICAL HISTORY: Pleural effusion Patient is S/P L partial decort, blebectomy, talc pleurodesis 03/06 andrepeat L clot evac 03/09, eval for changes/PTX/Effusion TECHNIQUE: 3.75 mm thick axial contiguous sections were obtained throughthe chest via helical acquisition after the intravenous administration ofcontrast, Administered 60.0 ml of OMNIPAQUE 350.00 mg/ml. Thin-sectionreconstructions as well as coronal and sagittal reformatted images were generated. COMPARISON: 11/18/2016 FINDINGS: Pulmonary parenchyma: Extensive centrilobular emphysematous disease most prominent in the upper to mid lungs bilaterally. No areas of airspace consolidation. No suspicious pulmonary nodules. Airways: No endobronchial lesions Pleura: No pleural effusions. Resolution of previously noted trace LEFTpleural effusion. Lymph nodes: Mild RIGHT hilar adenopathy, stable. Specific. Heart, pericardium, and great vessels: No pericardial effusion Other mediastinal structures: No significant findings. Lower neck: No significant findings. Upper abdomen: No significant findings. Body wall soft tissues: No significant findings. Skeletal structures: Healed RIGHT lateral rib fractures. IMPRESSION No suspicious pulmonary nodules. Extensive centrilobular emphysematousdisease. Thank you for letting us participate in the care of this patient. If youare a health care provider and have any questions regarding this report,please contact the number below. For patients who have questions please contactthe health medication care manager that requested your imaging first. Navin Khalil MD IMG CT ORDERABLES documented in this encounter Visit Diagnoses Diagnosis Recurrent spontaneous pneumothorax Other pneumothorax documented in this encounter Administered Medications Inactive Administered Medications - up to 3 most recent administrations Medication Order MAR Action Action Date Dose Rate Site iohexoL (Omnipaque) (350 mg/mL) solution 0-200 mL 0-200 mL, Intravenous, ONCE PRN, 1 dose, Starting on Mon10/12/21 at 1334, Until Mon10/12/21 at 1341, Per Protocol, Warning Vesicant/Irritant Medication , Radiology Contrast, Routine Given 10/12/2021 1:41 PM EST 60 mLs documented in this encounter Care Teams Web Applications Developer Relationship Specialty Start Date End Date Linda Mccray MD [address] [place] [address] PCP - General Family Medicine 10/20/16 documented as of this encounter
--- OUTSIDE RECORDS SUMMARY | 2024-07-17 21:48 | XMS_ITS | Encounter Summary ---
Author Organization [facility] [place] [address] Care Team Providers Care Automatic Winder Operator Name Role Phone Linda Mccray MD Primary Care Provider [phone] Encounter Details Date Type Department Care Team (Late st Contact Info) Description 01/07/2022 Notes Only [place] [address] Annemarie Gomez, OYSTER PLANTER [facility] [place] [address] Social History Tobacco Use Types Packs/Day Years [...] as of this encounter Progress Notes * Annemarie Gomez, OYSTER PLANTER - 01/07/2022 1:38 PM EDT Called Ruel this afternoon. I let him know that I spoke with Dr Mccray and that while she is happy to see him she will be away next week. I offered him an appt down here at with follow up CXR he thought that would be okay. I also let him know that I was putting in a referral to Thoracic for his persistent left hemothorax. He was amenable to this as well. Reports that he is having no sob, his activity tolerance has been increasing every couple of dayssince his discharge, and he has had no fevers. He has our contact numbers should he have any further questions. documented in this encounter Plan of Treatment Not on file documented as of this encounter Visit Diagnoses Not on filedocumented in this encounter Care Teams Automatic Winder Operator Relationship Specialty Start Date End Date Linda Mccray MD [address] [place] [address] PCP - General Family Medicine 10/20/16 documented as of this encounter
--- OUTSIDE RECORDS SUMMARY | 2024-07-17 21:48 | XMS_ITS | Encounter Summary ---
Author Organization [facility] [place] [address] Care Team Providers Care Box Closing Machine Operator Name Role Phone Linda Mccray MD Primary Care Provider [phone] Encounter Details Date Type Department Care Team (Late st Contact Info) Description 12/12/2021 7:00 AM EST Ancillary Procedure Radiology Library [place] [facility] [place] [id number] Social History Tobacco Use Types Packs/Day Years [...] Procedure Name Priority Date/Time Associated Diagnosis Comments REQUEST FOR 2ND READ CT CHEST STAT 12/12/2021 6:58 AM EST documented in this encounter Results * Request For 2nd Read CT Chest [...] who have questions please contact the health assistant child care teacher that requested your imaging first. ? Electronically signed by: Matti Palacio MD, [facility] ([phone]), at 12/13/2021 4:03 PM --------ORIGINAL REPORT -------- EXAMINATION: REQUEST FOR 2ND READ CT CHEST CLINICAL HISTORY: Rib fractures after trauma, assess for additional injury; Sending Institution [facility] [place]; Date of exam 20211211; I believe a [...] who have questions please contact the health assistant child care teacher that requested your imaging first. ? Electronically signed by: Matti Palacio MD, [facility] ([phone]), at 12/12/2021 9:25 AM Impressions 12/12/2021 9:25 [...] who have questions please contact the health assistant child care teacher that requested your imaging first. ? Electronically signed by: Matti Palacio MD, [facility] ([phone]), at 12/12/2021 9:25 AM Narrative 12/12/2021 9:25 AM EST EXAMINATION: REQUEST FOR 2ND READ CT CHEST CLINICAL HISTORY: Rib fractures after trauma, assess for additional injury; Sending Institution [facility]; Date of exam 20211211; I believe a [...] fracture. Procedure Note Matti Palacio MD - 12/12/2021 EXAMINATION: REQUEST FOR 2ND READ CT CHEST CLINICAL HISTORY: Rib fractures after trauma, assess for additionalinjury; Sending Institution [facility]; Date of exam 20211211; I believe areinterpretation [...] patients who have questions please contactthe health assistant child care teacher that requested your imaging first. Electronically signed by: Matti Palacio MD, [facility]([phone]), at 12/12/2021 9:25 AM Rayna High MD IMG OUTSIDE INTERPRE TATION ORDERABLES documented in this encounter Visit Diagnoses Not on filedocumented in this encounter Care Teams Box Closing Machine Operator Relationship Specialty Start Date End Date Linda Mccray MD [address] [place] [address] PCP - General Family Medicine 10/20/16 documented as of this encounter
--- OUTSIDE RECORDS SUMMARY | 2024-07-17 21:48 | XMS_ITS | Encounter Summary ---
Author Organization [facility] [place] [address] Care Team Providers Care Packing Machine Inspector Name Role Phone Linda Mccray MD Primary Care Provider [phone] Encounter Details Date Type Department Care Team (Late st Contact Info) Description 12/29/2021 11:00 AM EST Office [place] [address] Annemarie oGmez, CHILD GUIDANCE COUNSELOR [facility] [place] [address] Hospital discharge follow-up Social History Tobacco Use Types Packs/Day Years Used Date Smoking Tobacco: Former Cigarettes 1 - 1983 Smokeless Tobacco: Former Quit: 1982 Alcohol Use Standard Drinks/Week Comments Yes 5 (1 standard drink = 0.6 oz pur e alcohol) Sex and Gender Information Value Date Recorded Sex Assigned at Male 01/22/2023 2:25 PM EDT Gender Identity Male 01/22/2023 2:25 PM EDT Sexual Orientation Straight 01/22/2023 2: 25 PM EDT documented as of this encounter Progress Notes * Annemarie Gomez, CHILD GUIDANCE COUNSELOR - 12/29/2021 11:00 AM EST London Neri presents today for hospital check. London is s/p slip and fall on Ice on 12/16/21 withthe following injuries identified: PULM: 1. Left rib fractures 5-12 ?? 2. Left hemothorax? Since discharge, London reports he has been doing well. He denies any new area of pain, or new complaint. He is eating, moving his bowels and voiding without difficulty. He is accompanied by his to this appt. He was seen by thoracic during his admission for consideration or rib fixation, it was felt that there was no indication for surgical intervention at that time and he will FU with thoracic in 3 months for re evaluation. Review of Systems: GENERAL:denies fevers chills, sweats, anorexia HEENT:Denies headaches, visual changes,difficulty swallowing RESPIRATORY:Denies shortness of breath, cough CARDIAC:Denies chest pain, dyspnea on exertion,or syncopal symptoms GASTROINTESTINAL: Denies abdominal pain, nausea, vomiting, change in bowel habits, or jaundice GENITOURINARY:Denies dysuria, hematuria, flank pain VASCULAR:denies swelling or redness in the extremities EXAM: GEN:Well appearing, calm of affect NAD SKIN:Intact, no new areas of ecchymosis or laceration, no jaundice HEENT:sclera clear non icteric, mucous membranes are pink and moist CARD:S1S2 rrr no cmr appreciated CHEST:Cage stable, excursion equal, respiration regular even and non labored, CTA ant/post. ABD:soft non tender, non distended, I can appreciate no areas of fullness. BACK:non tender over midline thoracic lumbar and sacral regions, negative CVAT VASC:2+palpable peripheral pulses, cap refill <2 sec, no edema, calves are soft and non tender, NEURO:London is AAOX3, fluent and non focal, appropriately conversant EXT:5/5 strengths, all four extremities SAO2: 99% ra Imagin12/29/21: CXR: FINDINGS: ?? Left upper chest pulse generator has intact cardiac leads. Mitral and aortic valve prostheses are intact without change in position. Sternotomy wires are intact. ?? Localized lateral left subpleural hematoma is unchanged. No air-fluid level. A small left hemothorax persists. No pneumothorax. ?? Right greater than left upper lobe septal thickening consistent with COPD is unchanged. Cardiomediastinal contours and pulmonary vasculature are normal. ?? Bones are diffusely demineralized. The acute, multiple left lateral rib fractures are unchanged. Multiple healed right lateral rib fractures are unchanged. No new fracture. Thoracic kyphosis is mildly exaggerated without vertebral compression fracture. ?? IMPRESSION Persistent loculated left hemothorax secondary to the mildly displaced lateral rib fractures. No pneumothorax or acute cardiopulmonary abnormality. -Foster IMPRESSION/PLAN: I explained to the pt the natural history of rib fracture healing, as well as comfort measures suchas ice and heat. I explained that he continued with a loculated left hemothorax unchanged from prior imaging, and I would like to repeat the cxr in 2w time to evaluate for improvement. He asks that this be done through his PCP office as travel is difficult given the distance. I told him that was reasonable and would try to arrange this. documented in this encounter Plan of Treatment Not on file documented as of this encounter Visit Diagnoses Diagnosis Hospital discharge follow-up Other follow-up examination documented in this encounter Care Teams Packing Machine Inspector Relationship Specialty Start Date End Date Linda Mccray MD [address] [place] [address] PCP - General Family Medicine 10/20/16 documented as of this encounter
--- OUTSIDE RECORDS SUMMARY | 2024-07-17 21:48 | XMS_ITS | Encounter Summary ---
Author Organization [facility] [place] [address] Care Team Providers Care Haircutter Name Role Phone Linda Mccray MD Primary Care Provider [phone] Reason for Visit * Reason Comments Follow-up Encounter Details Date Type Department Care Team ([facility] Contact Info) Description 01/13/2022 11:30 AM EDT Office Visit [place] [address] Annemarie Gomez, ENGRAVER MACHINE [facility] [place] [address] Hemothorax on left Social History Tobacco Use [...] Sign Reading Time Taken Comments Blood Pressure 118/65 01/13/2022 11:22 AM EDT Pulse 88 01/13/2022 11:22 AM EDT Temperature 36.5 ??C (97.7 ??F) 01/13/2022 11:22 AM E DT Respiratory Rate 16 01/13/2022 11:22 AM EDT Oxygen Saturation 100% 01/13/2022 11:22 AM EDT Inhaled Oxygen Concentration - - Weight 78.2 kg (172 lb 6.4 oz) 01/13/2022 11:22 AM EDT Height 185.4 cm (6' 0.99) 01/13/2022 11:22 AM E DT Body Mass Index 22.75 01/13/2022 11:22 AM EDT documented in this encounter Progress Notes * Annemarie Gomez, ENGRAVER MACHINE - 01/13/2022 11:30 AM EDT London Neri presents today for follow up. Ruel is s/p slip and fall on ice on 12/16/21 with the following injuries identified: ?? PULM: 1.??Left rib fractures 5-12 ?? 2.??Left hemothorax? Since I last saw him Ruel reports he has been doing okay, He denies any new area of pain, or new complaint. He is eating, moving his bowels and voiding without difficulty. At his last appt he had a persistent left loculated hemothorax on his CXR. He was seen by thoracic during his admission for consideration or rib fixation, it was felt that there was no indication for surgical intervention at that time and he would FU with thoracic in 3 months for re evaluation. He is known to Dr Khalil and that service. Tells me he is feeling okay, no fevers or sweats, breathing feels okay, fine, he is about his daily activities.Ribs and chest wall are no longer bothersome to him. ? EXAM: GEN: non toxic appearing, calm of affect NAD HEENT:sclera clear non icteric, mucous membranes are pink and moist CARD:S1S2 rrr no cmr appreciated CHEST:Cage stable, excursion equal, respiration regular even and non labored, CTA ant/post. ABD:soft non tender, non distended BACK: negative CVAT VASC:2+palpable peripheral pulses, cap refill <3sec, no edema, calves are soft and non tender, NEURO:London is AAOX3, fluent and non focal, appropriately conversant EXT:5/5 strengths, all four extremities ?? SAO2: 100% ra ?? Imagin01/13/22: CXR: ??FINDINGS: ?? -Left upper chest pulse generator has 2 intact cardiac leads. -Aortic and mitral valve prostheses are intact and unchanged position. -Sternotomy wires are intact. ?? Coarse linear opacities throughout the lungs with an apical predominance and pulmonary hypoinflation are unchanged. Loculated left hemothorax, similar in size to December 29, 2021. No pneumothorax or right pleural effusion. ?? Cardiomediastinal contours and pulmonary vasculature are normal. ?? No free air below the diaphragm or focal extrathoracic soft tissue abnormality. ?? Thoracic spondylosis. Multiple, displaced bilateral rib fractures are unchanged in alignment but have increased callus development. ?? IMPRESSION ?? 1. Persistent, unchanged left hemothorax with progressive healing of the bilateral displaced rib fractures. No acute abnormality. ?? 2. Unchanged findings of COPD. -Fostor IMPRESSION/PLAN: CXR with no change in left hemothorax, pt denies any respiratory or infectious ros, saturating wellon room air.Seen with Dr James : in regard to his left hemothorax, have arranged for pt to be seen by thoracic 01/25/22 for further evaluation, and consideration or evacuation. Ruel is amenable to this. He is aware of the appt, and I have reviewed wit hhis sx for which he is to report for evaluation over the interval. documented in this encounter Plan of Treatment Not on file documented as of this encounter Visit Diagnoses Diagnosis Hemothorax on left Other specified forms of effusion, except tuberculous documented in this encounter Care Teams Haircutter Relationship Specialty Start Date End Date Linda Mccray MD [address] [place] [address] PCP - General Family Medicine 10/20/16 documented as of this encounter
--- OUTSIDE RECORDS SUMMARY | 2024-07-17 21:48 | XMS_ITS | Encounter Summary ---
Author Organization [facility] [place] [address] Care Team Providers Care Acid Adjuster Name Role Phone Linda Mccray MD Primary Care Provider [phone] Reason for Referral * Diagnostic Test (Routine) - Closed Specialty Diagnoses / Procedures Referred By Contac t Referred To Contact Radiology Diagnoses Recurrent spontaneous pneumothorax Cigarette nicotine dependence in remission H/O asbestos exposure Procedures CT Chest wo Contrast (Generic) Kendall Lucas MD [facility] [place] [address] [facility] [place] [address] Referral ID Status Reason Start Date Expiration Date V isits Requested Visits Authorized [id number] Closed Specialty Service Requested 10/27/2021 04/20/2023 1 1 Reason for Visit * Reason Comments Emphysema Encounter Details Date Type Department Care Team (Late st Contact Info) Description 10/12/2021 2:30 PM EST Office [place] [address] Kendall Lucas MD [facility] [place] [address] Recurrent spontaneous pneumothorax; Cigarette nicotine dependence in remission; H/O asbestos exposure Social History Tobacco Use [...] Sign Reading Time Taken Comments Blood Pressure 133/61 10/12/2021 2:11 PM EST Pulse 81 10/12/2021 2:11 PM EST Temperature 36.2 ??C (97.2 ??F) 10/12/2021 2:11 PM ES T Respiratory Rate 16 10/12/2021 2:11 PM EST Oxygen Saturation 96% 10/12/2021 2:11 PM EST Inhaled Oxygen Concentration - - Weight 81.4 kg (179 lb 6.4 oz) 10/12/2021 2:11 P M EST Height 183 cm (6' 0.05) 10/12/2021 2:11 PM EST Body Mass Index 24.3 10/12/2021 2:11 PM EST documented in this encounter Patient Instructions * Patient Instructions* Carmen Ferrer RN - 10/12/2021 2:30 PM EST Thank you for visiting Dr. Lucas in clinic 10/20/21 Dr. Lucas would like to see you back in clinic in 1 year with a recent CT scan of your chest without contrast. You will receive a letter in the mail/ receive a call to schedule this appointment. ?? Exercise each day for 30 minutes or [...] questions or concerns. documented in this encounter Progress Notes * Kendall Lucas MD - 10/12/2021 2:30 PM EST Thoracic Surgery Attending Outpatient Follow Up Note Kendall Lucas MD [place] [address] FAX: Pre Op Dx: recurrent spontaneous pneumothorax, persistent air leak ?? Post Op Dx: recurrent spontaneous pneumothorax, persistent air leak ?? Procedure (03/06/21): L VATS, partial decortication, blebectomy and talc pleurodesis ?? Procedure (03/09/21): L VATS, washout with control of bleeding and evacuation of 1.5L of clotted blood. ?? Pathology (03/06/21): Lung, bullectomy - Lung showing bullous emphysema with histologic evidence of remote and recent rupture. Mesothelial reactive atypia and inflammation. ?? Complications: Ground level fall prompting CT head (negative), bleeding from port site requiring re-op, urinary retention ?? Treatment: Surveillance imaging ?? HPI: London Neri is 71 y.o. male s/p L VATS partial decortication, blebectomy and talc pleurodesis on 03/06/21 c/b oozing from port site requiring L VATS washout with control of bleeding and evacuation of 1.5L of retained hemothorax on 02/27/21. His postoperative course was also notable for GLF (ground level fall) prompting CT head which reveals no intracranial hemorrhage or abnormality and urinary retention. He returns today to clinic with a 6 month f/u CT scan and reports feeling well. He saw urology and was started on Flomax for his urinary retention. He denies dizziness/vertigo and states this resolved on its own without intervention and did not follow up with cardiology. He denies f/c/n/v/SOB/CP. He walks 2 miles a day and is not smoking. Medications: Current Outpatient Medications on File Prior to Visit Medication Sig Dispense Refill ??? tamsulosin (Flomax) 0.4 mg Capsule Take 1 capsule by mouth daily. 90 tablet 5 ??? betamethasone dipropionate (DIPROLENE) 0.05 % Cream APPLY SMALL AMOUNT EXTERNALLY TO RASH TWICEDAILY FOR NO MORE THAN 2 WEEKS ??? aspirin 81 mg Tablet, Delayed Release (E.C.) TAKE ONE TABLET BY MOUTH EVERY DAY 3 ??? warfarin (COUMADIN) 10 mg tablet Current Facility-Administered Medications on File Prior to Visit Medication Dose Route Frequency Provider Last Rate Last Admin ??? [COMPLETED] iohexoL (Omnipaque) (350 mg/mL) solution 0-200 mL 0-200 mL Intravenous Once PRN Elmer Cordova MD 60 mL at 10/12/21 1341 Physical Exam: BP 133/61 (Patient Position: Sitting) Pulse 81 Temp 36.2 ??C (97.2 ??F) (Temporal) Resp 16 Ht 183 cm (6' 0.05) Wt 81.4 kg (179 lb 6.4 oz) SpO2 96% BMI 24.30 kg/m?? General Appearance: Alert, cooperative, no distress, appears stated age Nk: Supple, symmetrical, trachea midline, no adenopathy; thyroid: not enlarged, symmetric, no tenderness/mass/nodules Lungs: Clear, diminished to auscultation bilaterally, respirations unlabored, no wheezes, crackles or ronchi. Heart: Regular rate and rhythm, S1 and S2 normal, no murmur, rub, or gallop Abdomen: Soft, non-tender, bowel sounds active all four quadrants, no masses, no organomegaly Extremities: Extremities normal, atraumatic, no cyanosis or edema Wound/Incision: Well healed left VATs incisions Imaging: I have independently visualized the following studies: CT (10/12/21): No suspicious pulmonary nodules. Extensive centrilobular emphysematous disease. Assessment: London Neri is a 71 y.o. male s/p L VATS partial decortication, blebectomy and talc pleurodesis on 03/06/21 for persistent PTX and airleak c/b intrathoracic bleeding requiring L VATS washout with control of bleeding and evacuation of 1.5L of retained hemothorax on 02/27/21. His CT demonstrates no new nodules. Plan: 1. Follow up with PCP as scheduled 2. 30 minutes of exercise daily at a minimum 3. RTC in [address] Chest- for smoking history and asbestos exprosure 4. Continue to abstain from smoking 5. Call with any questions or concerns Malorie Mccauley APRN 10/12/2021 Thoracic Surgery [facility] I have seen the patient and reviewed the PA/resident's above history and I agree with the details as written. The assessment and plan were formulated in discussion with me and I agree with them as documented. Assessment: London Neri is a 71 y.o. male s/p L VATS partial decortication, blebectomy and talc pleurodesis on 03/06/21 for persistent PTX and airleak c/b intrathoracic bleeding requiring L VATS washout with control of bleeding and evacuation of 1.5L of retained hemothorax on 02/27/21. His CT demonstrates no new nodules. Plan: 1. Follow up with PCP as scheduled 2. 30 minutes of exercise daily at a minimum 3. RTC in [address] Chest- for smoking history and asbestos exprosure 4. Continue to abstain from smoking 5. Call with any questions or concerns KENDALL LUCAS MD documented in this encounter Plan of Treatment Not on file documented as of this encounter Results * CT Chest wo [...] who have questions please contact the health home care giver that requested your imaging first. ? Electronically signed by: Rayna Kiser MD, [facility] ([phone]), at 07/15/2022 3:55 PM Narrative 07/15/2022 3:55 PM EDT EXAMINATION: CT [...] patients who have questions please contactthe health home care giver that requested your imaging first. Electronically signed by: Rayna Kiser MD, [facility]([phone]), at 07/15/2022 3:55 PM Kendall Lucas MD IMG CT ORDERABLES documented in this encounter Visit Diagnoses Diagnosis Recurrent spontaneous pneumothorax Other pneumothorax Cigarette nicotine dependence in remission Tobacco use disorder H/O asbestos exposure Personal history of contact with and (suspected) exposure to asbestos Recurrent spontaneous pneumothorax Other pneumothorax Cigarette nicotine dependence in remission Tobacco use disorder H/O asbestos exposure Personal history of contact with and (suspected) exposure to asbestos documented in this encounter Care Teams Acid Adjuster Relationship Specialty Start Date End Date Linda Mccray MD [address] [place] [address] PCP - General Family Medicine 10/20/16 documented as of this encounter
--- OUTSIDE RECORDS SUMMARY | 2024-07-17 21:48 | XMS_ITS | Encounter Summary ---
Author Organization [facility] Address [facility] [place] [address] Care Team Providers Care Head Kiln Operator Name Role Phone Linda Mccray MD Primary Care Provider [phone] Reason for Visit * Reason Comments Lower Urinary Tract Symptoms * Consultation (Routine) - Closed Specialty Diagnoses / Procedures Referred By Contac t Referred To Contact Urology Diagnoses Recurrent spontaneous pneumothorax Continuous leakage of urine Navin Khalil MD [facility] [place] [address] Referral ID Status Reason Start Date Expiration Date V isits Requested Visits Authorized [id number] Closed Consult, Test & Treat 03/30/2021 09/26/2021 1 1 Encounter Details Date Type Department Care Team (Late st Contact Info) Description 08/24/2021 8:00 AM EDT [place] [address] Demetrius Sy III, MD [facility] [place] [address] Lower urinary tract symptoms (LUTS) Social History Tobacco Use Types Packs/Day Years [...] Sign Reading Time Taken Comments Blood Pressure 124/56 08/24/2021 8:28 AM EDT Pulse 71 08/24/2021 8:28 AM EDT Temperature - - Respiratory Rate - - Oxygen Saturation - - Inhaled Oxygen Concentration - - Weight - - Height - - Body Mass Index - - documented in this encounter Progress Notes * Matti Cole MD - 08/24/2021 8:00 AM EDT History of Present Illness London Neri is a 71 y.o. year old male referred by Linda Mccray MD for work up of incontinence. Patient was sent home [...] with voiding since his catheter was removed. He's had urinary urgency and frequency. His flow is normal and strong. He feels like he emptying out completely. He has urgency to void every 90 minutes. He voids every 90 minutes. His voids are small. No dysuria. His voiding symptoms are worse with caffeine. His frequency is not worse with hearing water running or a change in temperature. His urine has been smelling foul for months. No hematuria. Nocturia x1. He sometimes has urgency incontinence. He never leads with coughing, laughing or sneezing. He has post void dribbling. Coffee: 3-4 cups a day Wine: 1 glass a day Water: Minimal Soda: None Tea: None Patient also reports erectile dysfunction since around age 49 (secondary to an anti-depression). Hewas on Viagra in his 60s. He says he ED has progressed significantly over the last few years. 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 PVR is elevated to 100cc today. Plan: - Start Flomax 0.4 mg daily - Reduce intake of bladder irritants (caffeine, tea, wine); increase water intake - Urine for culture given reported foul odor (UA not concerning) - Okay to increase home Viagra dosing to 100 mg PRN for ED - Follow up in 3-6 months for symptom reassessment and to discuss ED * Demetrius Sy III, MD - 08/24/2021 8:00 AM EDT I have seen pt and discussed his symptoms. I agree with the assessment and recommendations for careas outlined in the accompanying note. documented in this encounter Plan of Treatment Not on file documented as of this encounter Procedures Procedure Name Priority Date/Time Associated Diagnosis Comments HC URINE CULTURE Routine 08/24/2021 9:00 AM EDT Lower urinary tract symptoms (LUTS) documented in this encounter Results * (ABNORMAL) Urine culture Clean Catch Urine (08/24/2021 9:00 AM EDT) Urine Culture Greater than 100,000 cfu/ml Escherichia coli(A) [facility] Organism Escherichia coli(A) [facility] Clean Catch Urine 08/24/2021 9:00 AM EDT 08/24/2021 12:21 PM EDT Narrative Resulting Agency Comment Spec In Lab Organism Antibiotic Method Susceptibility Escherichia coli Amikacin VITEK 2 METHOD Sensitive Escherichia coli Ampicillin + Sulbactam VITEK 2 METHOD Resistant Escherichia coli Aztreonam VITEK 2 METHOD Resistant Escherichia coli Cefazolin VITEK 2 METHOD Resistant Escherichia coli Ceftazidime VITEK 2 METHOD >=64: Resistant Escherichia coli Ceftriaxone VITEK 2 METHOD Resistant Escherichia coli Ertapenem VITEK 2 METHOD Sensitive Escherichia coli Gentamicin VITEK 2 METHOD Sensitive Escherichia coli Levofloxacin VITEK 2 METHOD Resistant Comment: Levofloxacin and Ciprofloxacin may not adequately treat infections in critically ill patients even when isolates test susceptible in the laboratory. Contact Infectious Disease before using in critically ill patients. Escherichia coli Meropenem VITEK 2 METHOD <=0.25: Sensitive Escherichia coli Nitrofurantoin VITEK 2 METHOD Sensitive Escherichia coli Piperacillin/Tazobactam VITEK 2 METHO D 8: Sensitive Escherichia coli Tetracycline VITEK 2 METHOD Sensitive Escherichia coli Tobramycin VITEK 2 METHOD Sensitive Escherichia coli Trimethoprim/Sulfa VITEK 2 METHOD Sensitive Demetrius Sy III, MD MICROBIOLOGY - [facility] ORDERABLES [facility] [place] [address] documented in this encounter Visit Diagnoses Diagnosis Lower urinary tract symptoms (LUTS) Other symptoms involving urinary system documented in this encounter Care Teams Head Kiln Operator Relationship Specialty Start Date End Date Linda Mccray MD [address] [place] [address] PCP - General Family Medicine 10/20/16 documented as of this encounter
--- OUTSIDE RECORDS SUMMARY | 2024-07-17 21:48 | XMS_ITS | Encounter Summary ---
Author Organization [facility] Address [facility] [place] [address] Care Team Providers Care Ampoule Inspector Name Role Phone Linda Mccray MD Primary Care Provider [phone] Encounter Details Date Type Department Care Team (Late st Contact Info) Description 11/24/2021 Telephone Cardiology at [address] [phone] Katerina Reina RN Social History Tobacco Use Types Packs/Day [...] encounter Miscellaneous Notes * Telephone Encounter - Katerina Reina RN - 11/24/2021 12:42 PM EST He called to say he sent a remote transmission because he has been having issues with feeling dizzywhen he gets up too fast, this has been happening over the past 2-3 days.. He recently had orthostatic B/P's done and they showed no changes. He wanted to send consecutive remote transmissions to seeif there was a change sitting and standing. I explained he paces 100% in the ventricle and this would not change. We could increase his LRL from 60-70 bpm to see if this helps as he has been in AFL since February 2021 persistently, He states he has not been aware of a dramatic change in his health sincethat time, just the recent episodes. documented in this encounter Plan of Treatment Not on file documented as of this encounter Visit Diagnoses Not on filedocumented in this encounter Care Teams Ampoule Inspector Relationship Specialty Start Date End Date Linda Mccray MD [address] [place] [address] PCP - General Family Medicine 10/20/16 documented as of this encounter
--- OUTSIDE RECORDS SUMMARY | 2024-07-17 21:48 | XMS_ITS | Encounter Summary ---
Author Organization [facility] [place] [address] Care Team Providers Care Recruiting Coordinator Name Role Phone Linda Mccray MD Primary Care Provider [phone] Encounter Details Date Type Department Care Team ([facility] st Contact Info) Description 08/26/2021 [place] [phone] Leoncio Lan, RN Social History Tobacco Use Types Packs/Day [...] encounter Miscellaneous Notes * Telephone Encounter - Leoncio Lan RN - 08/26/2021 4:16 PM EDT Spoke with [place] and informed him that per Dr Sawyer will prescribe Macrobid 100 mg twice a day for 5 days he is agreeable with current plan Results: Urine culture Clean Catch Urine Abnormal Status: Final result (Collected: 08/24/2021 09:00) Result Information Date and Time: Resulted: 08/26/2021 08:21 Status: Final result ??-- Abnormal??Abnormal?? Component Results Specimen Information: Clean Catch Urine ?? Component Value Urine Culture ??Abnormal?? Greater than 100,000 cfu/ml Escherichia coli Susceptibility Escherichia coli VITEK 2 METHOD Amikacin Sensitive Ampicillin + Sulbactam Resistant Aztreonam Resistant Cefazolin Resistant Ceftazidime >=64 Resistant Ceftriaxone Resistant Ertapenem Sensitive Gentamicin Sensitive Levofloxacin Resistant 1 Meropenem <=0.25 Sensitive Nitrofurantoin Sensitive Piperacillin/Tazobactam 8 Sensitive Tetracycline Sensitive Tobramycin Sensitive Trimethoprim/Sulfa Sensitive ?? documented in this encounter Plan of Treatment Not on file documented as of this encounter Visit Diagnoses Not on filedocumented in this encounter Care Teams Recruiting Coordinator Relationship Specialty Start Date End Date Linda Mccray MD [address] [place] [address] PCP - General Family Medicine 10/20/16 documented as of this encounter
--- OUTSIDE RECORDS SUMMARY | 2024-07-17 21:48 | XMS_ITS | Encounter Summary ---
Author Organization [facility] [place] [address] Care Team Providers Care Circuit Tester Name Role Phone Linda Mccray MD Primary Care Provider [phone] Reason for Visit * Reason Comments Medication Refill Encounter Details Date Type Department Care Team (Late st Contact Info) Description 12/18/2021 Refill General Surgery at [facility] [place] [phone] Albina Quach, BALANCE SCREWHEAD POLISHER [facility] [place] [address] Social History Tobacco Use Types Packs/Day Years [...] on filedocumented in this encounter Care Teams Circuit Tester Relationship Specialty Start Date End Date Linda Mccray MD [address] [place] [address] PCP - General Family Medicine 10/20/16 documented as of this encounter
--- OUTSIDE RECORDS SUMMARY | 2024-07-17 21:48 | XMS_ITS | Encounter Summary ---
[place] [address] Care Team Providers Care Tenoner Operator Name Role Phone Linda Mccray MD Primary Care Provider [phone] Encounter Details Date Type Department Care Team (Late st Contact Info) Description 12/14/2021 Telephone Cardiology at [address] [phone] Rosmery Bush Social History Tobacco Use Types [...] * Telephone Encounter - Rosmery Bush - 12/14/2021 8:15 AM EST Message sent to Edison at [facility] office asking for pt to be set up to see WASHINGTON Salas or Dr. Frost for persistent Afib. Notes and demos sent. Rosmery Bush EP Scheduling documented in this encounter Plan of Treatment Not on file documented as of this encounter Visit Diagnoses Not on filedocumented in this encounter Care Teams Tenoner Operator Relationship Specialty Start Date End Date Linda Mccray MD [address] [place] [address] PCP - General Family Medicine 10/20/16 documented as of this encounter
--- OUTSIDE RECORDS SUMMARY | 2024-07-17 21:48 | XMS_ITS | Encounter Summary ---
Author Organization [facility] [place] [address] Care Team Providers Care Borematic Machine Operator Name Role Phone Linda Mccray MD Primary Care Provider [phone] Encounter Details Date Type Department Care Team (Late st Contact Info) Description 04/09/2021 Telephone [place] [phone] hSani Maier Social History Tobacco Use Types Packs/Day Years [...] encounter Miscellaneous Notes * Telephone Encounter - Shani Maier LNA - 04/09/2021 8:31 AM EDT Referral faxed to [facility] and PCP documented in this encounter Plan of Treatment Not on file documented as of this encounter Visit Diagnoses Not on filedocumented in this encounter Care Teams Borematic Machine Operator Relationship Specialty Start Date End Date Linda Mccray MD [address] [place] [address] PCP - General Family Medicine 10/20/16 documented as of this encounter
--- OUTSIDE RECORDS SUMMARY | 2024-07-17 21:49 | XMS_ITS | Encounter Summary ---
Author Organization [facility] [place] [address] Care Team Providers Care Automobile Service Writer Name Role Phone Linda Mccray MD Primary Care Provider Encounter Details Date Type Department Care Team (Late st Contact Info) Description 03/17/2021 Telephone [place] [phone] Carmen Ferrer RN Social History Tobacco Use Types Packs/Day [...] encounter Miscellaneous Notes * Telephone Encounter - Carmen Ferrer RN - 03/17/2021 4:34 PM EDT Thoracic Surgery Nursing Post-operative Follow up: Hx: S/P L VATS partial decort, blebectomy, talc pleurodesis on 03/06 and repeat L VATS with clot evac on 03/09/2021 POD#: 11, 8 General statement: I'm doing better every day. I am feeling much better. Patient is on a regular diet, no issues with bowels BM today, Goldsmith in place without issue straw colored urine. Pain is controled with as needed OTC only at this point. Incision sites are all clean and without S/S of infection. Patient denies SOB and reports that he is using his IS as directed. Encouraged ambulation which will be easier once he is free of the catheter. Patient is doing well at home. Anxious to get his Goldsmith catheter out. He is doing clamp trials and will see his PCP on Monday. He appreciated the call and has our contact information should he have any issues. Plan: RTC on 03-30-2021 CXR 230 and 3k at 3pm Dr. Khalil documented in this encounter Plan of Treatment Not on file documented as of this encounter Visit Diagnoses Not on filedocumented in this encounter Care Teams Automobile Service Writer Relationship Specialty Start Date End Date Linda Mccray MD [address] [place] [address] PCP - General Family Medicine 10/20/16 documented as of this encounter
--- OUTSIDE RECORDS SUMMARY | 2024-07-17 21:49 | XMS_ITS | Encounter Summary ---
Author Organization [facility] [place] [address] Care Team Providers Care Welt Sewer Name Role Phone Linda Mccray MD Primary Care Provider [phone] Reason for Visit * Auth/Cert Specialty Diagnoses / Procedures Referred By Contac t Referred To Contact Diagnoses Recurrent spontaneous pneumothorax LARGE LEFT PNEUMOTHORAX Referral ID Status Reason Start Date Expiration Date Visits Re quested Visits Authorized [id number] 1 1 Encounter Details Date Type Department Care Team ([facility] Contact Info) Description 03/09/2021 8:31 AM EDT Anesthesia Event [place] [phone] Lenny Squires [facility] [place] [address] Anesthesia Record Procedure Summary Procedure Name Responsible Anesthesiologist Anesthesia Start Time Anesthesia Stop Time @THORACOTOMY WEXPL,CONTROL BLDNG (WRVU 25.28) (Left: Chest) Lenny Squires DO 03/09/21 0831 03/09/21 1130 Events Date Time Event Comment 03/09/2021 0809 0831 AN Verify 0831 Start 0831 An Start Data 0839 An Induction 0840 An Intubation 0900 Quick Note Magnet placed a nd secured over pacemaker 0909 An one lung vent 0918 Anesthesia Ready 1038 An Dual Lung Vent 1128 Extubation/LMA Out 1129 an stop data 1130 Recovery or ICU Handoff Lashon ent care was transferred to the destination unit staff after review of the patient's medical history, current anesthetic/surgical status and plan, according to the Provider Handoff Checklist. 1130 Stop Meds Name Total Rocuronium 50 mg Ondansetron 4 mg Dexamethasone 4 mg Neostigmine 5 mg Glycopyrrolate 0.8 mg Ketamine 10 mg/mL 70 mg Succinylcholine 100 mg ceFAZolin (Ancef) 2 g in dextrose 5% 100 mL infusion 2 g PHENYLephrine INF 880 mcg Lactated Ringers 1,300 mL * Agents Name O2 Air N2O Sevoflurane (et) * Blood No blood administrations on file. Lines, Drains, and Airways Type Details Placement Removal Incision 07/31/20; 1032; ches t; 03/09/21; 1039 07/31/20 1032 by Génesis Edmonds RN 03/09/21 1039 by Missy Anne RN (RETIRED) Peripheral IV Line - Single Lumen 03/05/21; 0000; basilic vein (medial side of arm), right; izmv-cot-oynlzo catheter system; 20 gauge; no longer indicated, removed per physician, catheter/device intact; 03/13/21; 1535 03/05/21 0000 by Melanie Bundy RN 03/13/21 1535 by Dominique Garcia RN (RETIRED) Peripheral IV Line - Single Lumen 03/06/21; 0918; metacarpal vein (top of hand), left; iajr-tkv-qusonz catheter system; 18 gauge; L Serg WISE; lumen/catheter not patent; 03/12/21; 2226 03/06/21 0918 by Elaine Ulrich 03/12/21 2226 by Avril East RN Incision 03/06/21; 0934; Left ; chest; laparoscopic punctures (specify); trocar sites x3; LDA not present upon assessment; 12/12/21; 0134 03/06/21 0934 by Sophia Talley RN 12/12/21 0134 by Onelia Horner RN Chest Tube 03/06/21; 1111; Left (28 FR Straight); other (see comments); 03/09/21; 0915 03/06/21 1111 by Sophia Talley RN 03/09/21 0915 by Yara Lake RN Urethral Catheter 03/08/21; 1347; Acut e urinary retention or obstruction; indwelling single lumen catheter; 100% silicone; 14; inserted at this facility; 1; 10; drainage bag to dependent drainage; LDA not present upon assessment; 12/12/21; 01303/08/21 1347 by Remigio Gómez RN 12/12/21 013 by Onelia Horner RN (RETIRED) Peripheral IV Line - Single Lumen 03/09/21; (in OR); median cubital vein (antecubital fossa), right; amiy-spi-igdfpn catheter system; 16 gauge; ok to dc per Md; 03/11/21; 1313 03/09/21 0000 by Missy Anne RN 03/11/21 1313 by Jodie Mojica RN ETT Mask Ventilation: No t Attempted (0); ETT Type: Cuffed, Oral; Double Lumen: 41 Fr, Left; Indirect: Video; Notes: Asleep, Pre-O2, RSI, Cricoid Pressure, Stylette; Attempts: 1; Laryngoscopy Grade: 1; ETT Placement Verified By: Auscultation, Capnometry, Visual; Removal Date: 03/09/21; Removal Time: 1128 03/09/21 0840 by Guanakito Clay, [employer] DRIVER 03/09/21 1128 by Guanakito Clay, [employer] DRIVER Arterial Line 03/09/21; 0902; radi al artery, left; 20 gauge; Anatomical Landmarks, Guidewire; Sterile Prep, Sterile Gloves; no longer indicated, removed per policy, catheter intact; 03/09/21; 1345 03/09/21 0902 by Guanakito Clay, [employer] DRIVER 03/09/21 1345 by Missy Anne RN Incision 03/09/21; 0920; Left ; chest; laparoscopic punctures (specify) (multiple trocar sites); LDA not present upon assessment; 12/12/21; 01303/09/21 0920 by Yara Lake RN 12/12/21 013 by Onelia Horner RN Chest Tube 03/09/21; 1039; Left ; anterior; anterior, lower; 28 ; 12/12/21; 0135 03/09/21 1039 by Yara Lake RN 12/12/21 0135 by Onelia Horner RN Chest Tube 03/09/21; 1040; Left ; posterior; posterior, upper; 28; 03/11/21 (dc'd by thoracic team); 1000 03/09/21 1040 by Yara Lake RN 03/11/21 1000 by Jodie Mojica RN documented in this encounter Social History Tobacco Use Types Packs/Day [...] PM EDT documented as of this encounter OR Notes * Anesthesia Postprocedure Evaluation - Lenny Squires DO - 03/09/2021 1:14 PM EDT Department of Anesthesiology Post-procedure Note Patient: London Neri Procedure Summary Date: 03/09/21 Room / Location: [address] MAIN OR Anesthesia Start: 830 Anesthesia Stop: 1130 Procedures: @THORACOTOMY WEXPL,CONTROL BLDNG (WRVU 25.28) (Left Chest) @THORACOSCOPY, SURG; W PART. DECORTICATION (WRVU 18.78) (Left Chest) Diagnosis: (bleeding) Surgeons: Navin Khalil MD Responsible Provider: Lenny Squires DO Anesthesia Type: general ASA Status: 3 - Emergent All Anesthesia Providers: Anesthesiologist: Lenny Squires DO [employer] DRIVER: Guanakito Clay CRNA Vitals Value Taken Time BP 117/44 03/09/21 1300 Temp 36.8 ??C (98.2 ??F) 03/09/21 1132 Pulse 62 03/09/21 1313 Resp 16 03/09/21 1313 SpO2 93 % 03/09/21 1313 Pain Level 0 03/09/21 1135 Vitals shown include unvalidated device data. Patient Location: PACU/[facility] Level of Consciousness: Conscious but Sleepy Pain Management: Satisfactory Analgesia PONV: None Cardiovascular Status: At Baseline and Hemodynamically Stable Respiratory Status: At Baseline and Room Air Postoperative Fluid Status: Intravascular EUvolemia Possible Anesthetic Complications: NONE apparent at time of evaluation Final Primary Anesthesia Type: General (The anesthetic type performed was the same as planned.) Comments: Lenny Squires DO * Anesthesia Preprocedure Evaluation - Lenny Squires DO - 03/09/2021 7:11 AM EDT Pre-Anesthesia Evaluation for: London Neri a 70 y.o. male. Procedure(s): @THORACOTOMY, MAJOR, WITH EXPLORATION AND BIOPSY (WRVU 13.75) @THORACOTOMY WEXPL,CONTROL BLDNG (WRVU 25.28) Patient Active Problem List Diagnosis ??? Recurrent spontaneous pneumothorax ??? Pacemaker complications, initial encounter ??? Near syncope ??? Pacemaker - dual lead Medtronic ??? Pacemaker battery depletion Added automatically from request for surgery [id number] ??? Chronic bullous emphysema ??? Clostridium difficile colitis ??? Encounter for screening colonoscopy Past Medical History: Diagnosis Date ??? C. difficile colitis ??? COPD (chronic obstructive pulmonary disease) ??? Emphysema of lung ??? Hemorrhoid ??? Pneumothorax on left Past Surgical History: Procedure Laterality Date ??? AORTIC VALVE REPLACEMENT 1998 ??? CARDIAC VALVE REPLACEMENT 1983 Aortic Valve ??? CARDIAC VALVE REPLACEMENT 1998 Mechanical Aortic and Mitral ??? HERNIA REPAIR ??? MITRAL VALVE REPLACEMENT 1998 ??? PRO BRONCHOSCOPY, DIAGNOSTIC Left 03/06/2021 BRONCHOSCOPY, DIAGNOSTIC (WRVU 2.78) performed by Navin Khalil MD at [facility] MAIN OR ??? PRO COLONOSCOPY, REMV LESN, SNARE N/A 01/26/2017 COLONOSCOPY, POLYPECTOMY, REMOVAL LESION BY SNARE (WRVU 4.67) performed by Lena Clark MD at [facility] ENDOSCOPY ??? PRO THORACOSCOPY SURG PART PULM DECORT Left 03/06/2021 @THORACOSCOPY, SURG; W PART. DECORTICATION (WRVU 18.78) performed by Navin Khalil MD at [facility] MAIN OR ??? PRO THORACOSCOPY SURG W/PLEURODESIS Left 03/06/2021 @THORACOSCOPY, SURG; W PLEURODESIS (WRVU 10.83) performed by Navin Khalil MD at [facility] MAIN OR ??? PRO THORACOSCOPY W RESECTION-PLICATION EMPHYSEMA LUNG UNILATERAL Left 03/06/2021 @THORACOSCOPY, SURG; W/RESC-PLICATION EMPHYSEMATOUS LUNG, UNILATERAL (WRVU 27) performed by Navin Khalil MD at [facility] MAIN OR Social History Tobacco Use ??? Smoking status: Former Smoker Packs/day: 1.00 Years: 35.00 Pack years: 35.00 ??? Smokeless tobacco: Former User Quit date: 1982 Substance Use Topics ??? Alcohol use: Yes Alcohol/week: 5.0 standard drinks Types: 5 Glasses of wine per week Social History Substance and Sexual Activity Drug Use No No Known Allergies Medications: MAR and/or home medications have been reviewed. Physical Exam: Preprocedure Vitals Current as of 03/09/21 0711 BP: 100/59 Pulse: Resp: 20 SpO2: 94 Temp: 36.7 ??C (98.1 ??F) Height: 185.4 cm (6' 1) (03/05/21) Weight: 79.7 kg (175 lb 11.2 oz) (03/07/21) BMI: 23.18 IBW: 79.9 kg (176 lb 1.7 oz) Last edited 03/09/21 0452 by TN Airway Assessment: Mallampati: II Cardiovascular Assessment: system normal Pulmonary Assessment: pulmonary exam normal Dental Assessment: Comment: Upper partial, several missing teeth but none loose Misc Assessment: Last Filed Perioperative Cognitive Screening None Anesthesia Plan: ASA 3 emergent general, with a(n) intravenous induction 70 yo male s/f thoracoscopy to control bleeding. S/p left thoracoscopy 3 days ago to manage air leak. Medical History: AVR, MVR, pacemaker (V paced), COPD, former smoker, 5 drinks/week Surgical History: Aortic valve repair/mitral valve repair (1998), hernia repair Anesthetic History: no issues w/ prior anesthetics Difficulty with prior mask (? Thin face?) Ate an apple at 0500 today but due to urgent nature of case will need to proceed with RSI. Plan for GA w/ RAY, PIV x 2 Region - Intrathoracic Non-Cardiac Informed Consent: Anesthetic plan and risks discussed with patient and spouse. Plan discussed with [employer] COMPANY DRIVER. PAT Clinic Note documented in this encounter Plan of Treatment Not on file documented as of this encounter Visit Diagnoses Not on filedocumented in this encounter Administered Medications Inactive Administered Medications - up to 3 most recent administrations Medication Order MAR Action Action Date Dose Rate Site ceFAZolin (Ancef) 2 g in dextrose 5% 100 mL infusion 2 g, Intravenous, ONCE, 1 dose, On Mon03/09/21 at 0845, Administer over 30 Minutes, Indication for (Active or Suspected): Prophylaxis Given 03/09/2021 9:20 AM EDT 2 g dexamethasone (Decadron) injection Intravenous, PRN, Starting on Mon03/09/21 at 1042, Until Mon03/09/21 at 1130, Anesthesia Intra-op, Routine Given 03/09/2021 10:42 AM EDT 4 mg glycopyrrolate (Robinul) (0.2 mg/mL) multi-dose injection Intravenous, PRN, Starting on Mon03/09/21 at 1115, Until Mon03/09/21 at 1130, Anesthesia Intra-op, Routine Given 03/09/2021 11:15 AM EDT 0.8 mg ketamine (Ketalar) (10 mg/mL) IV bolus injection (Anesthesia) Intravenous, PRN, Starting on Mon03/09/21 at 0839, Until Mon03/09/21 at 1130, Anesthesia Intra-op Given 03/09/2021 8:39 AM EDT 70 mg lactated ringers infusion Intravenous, CONTINUOUS PRN, Starting on Mon03/09/21 at 0833, Until Mon03/09/21 at 1130, Anesthesia Intra-op New Bag 03/09/2021 8:33 AM EDT neostigmine (Bloxiver) (1 mg/mL) injection Intravenous, PRN, Starting on Mon03/09/21 at 1115, Until Mon03/09/21 at 1130, Anesthesia Intra-op, Routine Given 03/09/2021 11:15 AM EDT 5 mg ondansetron (pf) (Zofran) (2 mg/mL) injection Intravenous, PRN, Starting on Mon03/09/21 at 1042, Until Mon03/09/21 at 1130, Anesthesia Intra-op, Routine Given 03/09/2021 10:42 AM EDT 4 mg PHENYLephrine (Wayne-Synephrine) (80 mcg/mL) in sodium chloride 0.9% 250 mL infusion Intravenous, CONTINUOUS PRN, Starting on Mon03/09/21 at 0952, Until Mon03/09/21 at 1130, Anesthesia Intra-op, Routine New Bag 03/09/2021 9:52 AM EDT 20 mcg/min 15 mL/hr rocuronium (Zemuron) (10 mg/mL) multi-dose injection Intravenous, PRN, Starting on Mon03/09/21 at 0847, Until Mon03/09/21 at 1130, Anesthesia Intra-op, Routine Given 03/09/2021 8:47 AM EDT 50 mg succinylcholine (Anectine;Quelicin) (20 mg/mL) injection Intravenous, PRN, Starting on Mon03/09/21 at 0839, Until Mon03/09/21 at 1130, Anesthesia Intra-op, Routine Given 03/09/2021 8:39 AM EDT 100 mg documented in this encounter Care Teams Welt Sewer Relationship Specialty Start Date End Date Linda Mccray MD [address] [place] [address] PCP - General Family Medicine 10/20/16 documented as of this encounter
--- OUTSIDE RECORDS SUMMARY | 2024-07-17 21:49 | XMS_ITS | Encounter Summary ---
Author Organization [facility] Address [facility] [place] [address] Care Team Providers Care Petroleum Analyst Name Role Phone Linda Mccray MD Primary Care Provider [phone] Encounter Details Date Type Department Care Team ([facility] st Contact Info) Description 03/15/2021 Notes Only Cardiology at [address] [phone] Elmer Mionr PA [facility] [place] [address] Social History Tobacco Use Types Packs/Day Years [...] Progress Notes * Elmer Minor PA - 03/15/2021 9:47 AM EDT Cardiac Electrophysiology Cardiac Implantable Electronic Device Remote Monitoring Interpretation Transmission Date: 03/13/2021 Device Clearance Coordinator and Type: Battery Status: 10yrs Atrial lead status: good Right ventricular lead status: good Left ventricular lead status: n/a Pacing: <0.1% Atrial pacing 99.8% Ventricular pacing Events/Arrhythmias noted since last reset : Onset of atrial flutter 03/09/2021; >40% RV pacing Impression: Normally functioning dual lead Medtronic pacemaker New onset of persistent atrial fibrillation 03/09 while hospitalized for treatment of recurrent spontaneous pneumothorax. He was admitted on 03/05 and device was interrogated on 03/06 at which point he was not in afib. He underwent VATS and was discharged on 03/13. He has both mitral and aortic mechanical valves and is anticoagulated with coumadin. He was discharged with subtherapeutic INR and was prescribed lovenox. If AF persists, he may require cardioversion once recovered from his procedure. He lives in [place], [place] Provider: WASHINGTON Salas EP Consult attending physician: Sivan Houser MD documented in this encounter Plan of Treatment Not on file documented as of this encounter Visit Diagnoses Not on filedocumented in this encounter Care Teams Petroleum Analyst Relationship Specialty Start Date End Date Linda Mccray MD [address] [place] [address] PCP - General Family Medicine 10/20/16 documented as of this encounter
--- OUTSIDE RECORDS SUMMARY | 2024-07-17 21:49 | XMS_ITS | Encounter Summary ---
Author Organization [facility] Address [facility] [place] [address] Care Team Providers Care Bed Placement Coordinator Name Role Phone Linda Mccray MD Primary Care Provider [phone] Encounter Details Date Type Department Care Team (Latest Contact Info) Description 03/30/2021 2:34 PM EDT - 03/30/2021 11:59 PM EDT Hospital Encounter XRay at [address] [place] [address] Navin Khalil MD [facility] [address] Recurrent spontaneous pneumothorax Discharge Disposition: Home Social [...] Comments XR CHEST PA AND LATERAL Routine 03/30/2021 2:41 PM EDT Recurrent spontaneous pneumothorax documented in this encounter Results * XR Chest PA & Lateral (Generic) (03/30/2021 2:41 PM EDT) Anatomical Region Laterality Modality Chest N/A Digital Radiogra phy Impressions 03/30/2021 2:52 PM EDT No pneumothorax or pleural fluid seen. Thank you for letting us participate in the care of this patient. ??If you are a health care provider and have any questions regarding this report, please contact the number below. ??For patients who have questions please contact the health day care director that requested your imaging first. ? Narrative 03/30/2021 2:52 PM EDT EXAMINATION: XR CHEST PA AND LATERAL (GENERIC) CLINICAL HISTORY: s/p LVATS partial decort, blebectomy, talc pleurodesis c/b hemothorax s/p re-op LVATS washout TECHNIQUE: PA and lateral views of the chest. COMPARISON: 03/13/2021. FINDINGS: Left anterior chest wall pulse generator with 2 leads in unchanged position. Intact sternotomy wires, aortic and mitral prostheses are present, as before. No pneumothorax or pleural effusion. Otherwise unchanged appearance of the lungs, cardiomediastinal silhouette vasculature. Resolved body wall air. No interval osseous findings. Procedure Note Malika Thayer MD - 03/30/2021 EXAMINATION: XR CHEST PA AND LATERAL (GENERIC) CLINICAL HISTORY: s/p LVATS partial decort, blebectomy, talc pleurodesisc/b hemothorax s/p re-op LVATS washout TECHNIQUE: PA and lateral views of the chest. COMPARISON: 03/13/2021. FINDINGS: Left anterior chest wall pulse generator with 2 leads inunchanged position. Intact sternotomy wires, aortic and mitral prostheses arepresent, as before. No pneumothorax or pleural effusion. Otherwise unchangedappearance of the lungs, cardiomediastinal silhouette vasculature. Resolved body wallair. No interval osseous findings. IMPRESSION No pneumothorax or pleural fluid seen. Thank you for letting us participate in the care of this patient. If youare a health care provider and have any questions regarding this report,please contact the number below. For patients who have questions please contactthe health day care director that requested your imaging first. Navin Khalil MD IMG DX ORDERABLES documented in this encounter Visit Diagnoses Diagnosis Recurrent spontaneous pneumothorax Other pneumothorax documented in this encounter Care Teams Bed Placement Coordinator Relationship Specialty Start Date End Date Linda Mccray MD [address] [place] [address] PCP - General Family Medicine 10/20/16 documented as of this encounter
--- OUTSIDE RECORDS SUMMARY | 2024-07-17 21:49 | XMS_ITS | Encounter Summary ---
Author Organization [facility] [place] [address] Care Team Providers Care Parking Officer Name Role Phone Linda Mccray MD Primary Care Provider [phone] Reason for Referral * Consultation (Routine) - Closed Specialty Diagnoses / Procedures Referred By Contac t Referred To Contact Urology Diagnoses Recurrent spontaneous pneumothorax Continuous leakage of urine Kendall Lucas MD [facility] [place] [address] Referral ID Status Reason Start Date Expiration Date V isits Requested Visits Authorized [id number] Closed Consult, Test & Treat 03/30/2021 09/26/2021 1 1 * Diagnostic Test (Routine) - Closed Specialty Diagnoses / Procedures Referred By Contac t Referred To Contact Radiology Diagnoses Recurrent spontaneous pneumothorax Procedures CT Chest w Contrast Kendall Lucas MD [facility] [place] [address] [facility] [place] [address] Referral ID Status Reason Start Date Expiration Date V isits Requested Visits Authorized [id number] Closed Specialty Service Requested 03/30/2021 09/29/2022 1 1 Reason for Visit * Reason Comments Follow Up Surgery Emphysema Encounter Details Date Type Department Care Team ([facility] st Contact Info) Description 03/30/2021 3:15 PM EDT Office [place] [address] Kendall Lucas MD [facility] [place] [address] Recurrent spontaneous pneumothorax; Continuous leakage of urine Social History Tobacco [...] Sign Reading Time Taken Comments Blood Pressure 129/66 03/30/2021 2:59 PM EDT Pulse 73 03/30/2021 2:59 PM EDT Temperature 36.8 ??C (98.2 ??F) 03/30/2021 2:59 PM ED T Respiratory Rate 16 03/30/2021 2:59 PM EDT Oxygen Saturation 100% 03/30/2021 2:59 PM EDT Inhaled Oxygen Concentration - - Weight 76.5 kg (168 lb 11.2 oz) 03/30/2021 2:59 PM EDT Height 183.9 cm (6' 0.4) 03/30/2021 2:59 PM EDT Body Mass Index 22.63 03/30/2021 2:59 PM EDT documented in this encounter Patient Instructions * Patient Instructions* Carmen Ferrer RN - 03/30/2021 3:15 PM EDT Thank you for visiting Dr. Lucas in clinic 03/30/21 Dr. Lcuas would like to see you back in clinic in 6 months with a recent CT scan of your chest with IV contrast. You will receive a letter in the mail/ receive a call to schedule this appointment. We have sent a referral to Urology at [facility]. ?? Exercise each day for 30 minutes [...] Progress Notes * Kendall Lucas MD - 03/30/2021 3:15 PM EDT Thoracic Surgery Attending Outpatient Follow Up Note MD Winifred Eason PA-C [place] [address] FAX: Pre Op Dx: recurrent spontaneous pneumothorax, persistent air leak Post Op Dx: recurrent spontaneous pneumothorax, persistent air leak Procedure (03/06/21): L VATS partial decortication, blebectomy and talc pleurodesis on 03/06/21 with oozing from left chest tube Procedure (03/09/21): LVATS washout with control of bleeding and evacuation of 1.5L of clotted blood. Pathology 03/06/21): Lung, bullectomy - Lung showing bullous emphysema with histologic evidence of remote and recent rupture. Mesothelial reactive atypia and inflammation. Complications: GLF prompting CT head (negative), bleeding from port site requiring re-op, urinary retention Treatment: Baseline CT chest HPI: London Neri is 70 y.o. male s/p L VATS partial decortication, blebectomy and talc pleurodesis on 03/06/21 c/b oozing from port site requiring L VATS washout with control of bleeding and evacuation of 1.5L of retained hemothorax on 02/27/21. His postoperative course was also notable for GLF (ground level fall) prompting CT head which reveals no intracranial hemorrhage or abnormality and urinary retention. On POD7 he was discharged and he presents today for follow up. ?? He reports his samaniego was removed by his PCP and he has since noticed urinary incontinence- this hasimproved some but has not resolved. He c/o feeling dizzy and lightheaded when he changes positions which started after surgery. If he is laying down and sits up he is lightheaded but this resolves ifhe sits for a while. He also notes redness at his most posterior incisions but denies drainage. He is walking daily with some dyspnea but this improves everyday. He denies f/c/n/v/CP. Medications: Current Outpatient Medications on File Prior to Visit Medication Sig Dispense Refill ??? aspirin 81 mg Tablet, Delayed Release (E.C.) TAKE ONE TABLET BY MOUTH EVERY DAY 3 ??? warfarin (COUMADIN) 10 mg tablet ??? acetaminophen (Tylenol) 500 mg Tablet Take 2 tablets by mouth every 6 hours as needed for Pain.(Patient not taking: Reported on 03/30/2021) 30 tablet 0 ??? senna (Senokot) 8.6 mg Tablet Take 2 tablets by mouth 2 times daily. (Patient not taking: Reported on 03/30/2021) 40 tablet 0 No current facility-administered medications on file prior to visit. Physical Exam: BP 129/66 (Patient Position: Sitting) Pulse 73 Temp 36.8 ??C (98.2 ??F) (Temporal) Resp 16 Ht 183.9 cm (6' 0.4) Wt 76.5 kg (168 lb 11.2 oz) SpO2 100% BMI 22.63 kg/m?? General Appearance: Alert, cooperative, no distress, appears stated age Nk: Supple, symmetrical, trachea midline Lungs: Clear to auscultation bilaterally, respirations unlabored, no wheezes, crackles or ronchi. Heart: Regular rate and rhythm, S1 and S2 normal, no murmur, rub, or gallop Abdomen: Soft, non-tender, bowel sounds active all four quadrants, no masses, no organomegaly Extremities: Extremities normal, atraumatic, no cyanosis or edema Wound/Incision: Clean, dry, intact, with evidence of good wound healing. Right posterior incision with surrounding erythema- non TTP, no fluctuance or drainage when scab removed. Imaging: I have independently visualized the following studies: CXR (03/30/21): No pneumothorax or pleural fluid seen. Assessment: London Neri is a 70 y.o. male s/p L VATS partial decortication, blebectomy and talc pleurodesis on 03/06/21 c/b oozing from port site requiring L VATS washout with control of bleeding and evacuation of 1.5L of retained hemothorax on 02/27/21. He is currently recovering well postoperative; posteriorincision erythema is likely 2/2 irritation. Dizziness and lightheadedness with change in position related to vertigo versus orthostatic hypotension Plan: 1. Referral to Urology for urinary incontinence post samaniego removal 2. 30 minutes of exercise daily at a minimum 3. RTC in [address] Chest for baseline given smoking history 4. Follow up with PCP and Cardiology for dizziness and lightheadedness 5. Posterior incision- bacitracin and band aid applied- patient and instructed to wash incision with soap and water, pat dry, place bacitracin and bandaid- change BID x 5 days. Call if not improving or worsening signs of infection. Supplies given 6. Okay to fly for travel 7. Call with any questions Winifred Patel PA-C 03/30/2021 Thoracic Surgery [facility] I have seen the patient and reviewed the PA/resident's above history and I agree with the details as written. The assessment and plan were formulated in discussion with me and I agree with them as documented. Assessment: London Neri is a 70 y.o. male s/p L VATS partial decortication, blebectomy and talc pleurodesis on 03/06/21for persistent PTX and airleak c/b intrathoracic bleeding requiring L VATS washout with control of bleeding and evacuation of 1.5L of retained hemothorax on 02/27/21. He is currently recovering well postoperative; posterior incision erythema is likely 2/2 irritation. Dizziness and lightheadedness with change in position related to ?vertigo versus orthostatic hypotension (less likely given vitals). Plan: 1. Referral to Urology for urinary incontinence post samaniego removal 2. 30 minutes of exercise daily at a minimum -- he should do this only if his dizziness and lightheadedness resolves 3. RTC in [address] Chest for baseline given smoking history -- this will allow for screening CT scans in the future 4. Follow up with PCP and Cardiology for dizziness and lightheadedness 5. Posterior incision- bacitracin and band aid applied- patient and instructed to wash incision with soap and water, pat dry, place bacitracin and bandaid- change BID x 5 days. Call if not improving or signs of infection. Supplies given 6. Okay to fly for travel 7. Call with any questions KENDALL LUCAS MD documented in this encounter Plan of Treatment Scheduled Referrals Name Type Priority Associated Diagnoses Orde r Schedule Referral to Urology Outpatient Referral Routine Recurrent spontaneous pneumothorax Continuous leakage of urine Ordered: 03/30/2021 documented as of this encounter Results * CT Chest w [...] have questions please contact the health healthcare insurance sales agent that requested your imaging first. ? Electronically signed by: Matti Palacio MD, [facility] ([phone]), at 10/12/2021 2:35 PM Narrative 10/12/2021 2:35 PM EST EXAMINATION: CT [...] who have questions please contactthe health healthcare insurance sales agent that requested your imaging first. Kendall Lucas MD IMG CT ORDERABLES * Creatinine (10/12/2021 11:52 AM EST) Creatinine 0.98 0.80 - 1.50 mg/dL [facility] Est Glomerular Filtration Rate 77 >=60 mL/min/1. 73 m?? [facility] Comment: This patient? s [...] Narrative Resulting Agency Comment Spec In Lab Kendall Lucas MD CHEMISTRY ORDERABLES [facility] [place] [address] documented in this encounter Visit Diagnoses Diagnosis Recurrent spontaneous pneumothorax Other pneumothorax Continuous leakage of urine Continuous leakage Recurrent spontaneous pneumothorax Other pneumothorax documented in this encounter Care Teams Parking Officer Relationship Specialty Start Date End Date Linda Mccray MD [address] [place] [address] PCP - General Family Medicine 10/20/16 documented as of this encounter
--- OUTSIDE RECORDS SUMMARY | 2024-07-17 21:49 | XMS_ITS | Encounter Summary ---
Author Organization Formerly [facility] [place] [address] Care Team Providers Care Associate Professor Of Medicine Name Role Phone Linda Mccray MD Primary Care Provider [phone] Reason for Visit * Reason Comments Hospital Transfer Shortness of Breath * Auth/Cert Specialty Diagnoses / Procedures Referred By Contac t Referred To Contact Diagnoses Recurrent spontaneous pneumothorax LARGE LEFT PNEUMOTHORAX Referral ID Status Reason Start Date Expiration Date Visits Re quested Visits Authorized [id number] 1 1 Encounter Details Date Type Department Care Team (Latest Contact Info) Description 03/05/2021 3:07 PM EDT - 03/13/2021 3:38 PM EDT Hospital Encounter [address] [place] [id number] Kenneth Newby MD [facility] [place] [address] Kendall Khalil MD [facility] [place] [address] Recurrent spontaneous pneumothorax (Primary Dx); Near syncope; Pacemaker complications, initial encounter Discharge Disposition: Home Social History [...] Sign Reading Time Taken Comments Blood Pressure 130/40 03/13/2021 11:44 AM EDT Pulse 61 03/12/2021 3:47 PM EDT Temperature 37.1 ??C (98.8 ??F) 03/13/2021 11:44 AM E DT Respiratory Rate 16 03/13/2021 11:44 AM EDT Oxygen Saturation 94% 03/13/2021 11:44 AM EDT Inhaled Oxygen Concentration - - Weight 81.6 kg (180 lb) 03/13/2021 5:44 AM EDT Height 185.4 cm (6' 1) 03/05/2021 3:13 PM EDT Body Mass Index 23.75 03/05/2021 3:13 PM EDT documented in this encounter Discharge Summaries * Jeff Almendarez MD - 03/13/2021 12:03 PM EDT Images from the original note were not included. Department of Thoracic Surgery - Discharge Summary Patient Name: London Neri Patient Age: 70 y.o. Birthdate: 1950 Admit date: 03/05/2021 Discharge date: 03/13/2021 Attending Physician: Kendall Khalil MD Discharge Diagnoses (Hospital Problems) and Secondary Diagnoses (Chronic Problems): Active Hospital Problems Diagnosis ??? Recurrent spontaneous pneumothorax Resolved Hospital Problems No resolved problems to display. Active Non-Hospital Problems Diagnosis ??? Pacemaker complications, initial encounter ??? Near syncope ??? Pacemaker - dual lead Medtronic ??? Pacemaker battery depletion Added automatically from request for surgery [id number] ??? Chronic bullous emphysema ??? Clostridium difficile colitis ??? Encounter for screening colonoscopy Operations/Major Procedures: Operations: Case Date: 03/09/2021 Surgeon: Surgeon(s) and Role: * Kendall Khalil MD - Primary * Ashanti May MD - Resident Procedure: Procedure(s): @THORACOTOMY WEXPL,CONTROL BLDNG (WRVU 25.28) @THORACOSCOPY, SURG; W PART. DECORTICATION (WRVU 18.78) Other Major Procedures: 03/09/21: Re-operation for left hemothorax s/p LVATS washout with control of bleeding and evacuationof clot. History of Presentation: London Neri is a 70 y.o. male with PMHx significant for recurrent spontaneous pneumothorax, CHF,mitral and aortic mechanical valves (both placed 1998, on coumadin), s/p pacemaker who presents as transfer from [facility] for surgical treatment of recurrent spontaneous left pneumothorax. ?? Reports sudden onset of SOB on Monday which he knew felt like his prior ptx and presented to [facility] for treatment. Hospitalized at [facility] from 03/03 until today when he was transferred [place] [facility] [place] management of his recurrent PTX. Had L-sided CT placed at [facility], with continuous air-leak since admission. Pt reports this is his fourth ptx, first occurred 2 years ago after multiple broken ribs in curred by slip and fall on ice. The 2nd and 3rd ptx were non-traumatic and one was attributed to lifting heavy item. Since CT placed at [facility] SOB has improved. ?? Coumadin last taken morning of 03/04/21. Normal coumadin dose 10mg qd. He last ate at noon today. ?? On assessment in the ED: He is HDS, on RA and in no distress. He endorses no complaints. Hospital Course: London Neri was admitted to [facility] on 03/05/2021 viathe ED. He was brought to the operating room on 03/06/[address] Kendall Khalil performed surgery as described above. He tolerated the procedure well and was brought to the Post Anesthesia Care Unit for recovery. After a brief period of time he was transferred to the floor for continued rehabilitation. He had a head injury while attempting to go to the restroom on his own and fell; a subsequent Head CT showed no intracranial hemorrhage or abnormality. His course was c/b continued downtrend of hemoglobin found to have a hemothorax on the left. He was taken back to the OR on 03/09/21 for procedure described above. The left posterior chest tube was discontinued on post operative day # 5. The left anterior chest tube was discontinued on post operative day # 7. A chest Xray after this demonstrated no resultant pneumothorax. By postoperative day # 7 he had met all criteria for discharge to home. Pain was controlled on oral medications. He had walked 5 minutes. He was tolerating a regulardiet and had had a bowel movement. Vital signs: Vital Signs Temp: 37.1 ??C (98.8 ??F) Temp src: Oral Heart Rate from SpO2: 62 bpm Heart Rate: 61 Heart Rate Source: Monitor Resp: 16 BP: 130/40 MAP (NBP): 70 mmHg BP Method: Automatic Patient Position: Lying SpO2: 94 % O2 Flow Rate (L/min): 6 L/min O2 Device: None (Room air) Admission Wt: 77.11 kg Last Wt: Wt Readings from Last 3 Encounters: 03/13/21 81.6 kg (180 lb) 08/10/20 81.6 kg (180 lb) 07/31/20 76.2 kg (167 lb 15.9 oz) Pertinent physical exam findings prior to discharge: Gen: NAD, pleasant, sitting up in bed HEENT: Head injury on frontal left forehead healing well, sclerae anicteric Neck: supple, trachea midline Card: RRR, no M/R/G appreciated Pulm: CTAB, no wheeze/ronchi/rales appreciated, non-labored breathing on RA, chest incision c/d/i. Abd: soft, NT, BS+ Ext: warm, dry, no edema Neuro: A&Ox3, CN II-XII grossly intact, nonfocal, conversant Important Lab Data: Lab Results Component Value Date WBC 13.5 (H) 03/13/2021 HGB 8.1 (L) 03/13/2021 HCT 24.0 (L) 03/13/2021 MCV 88.9 03/13/2021 Lab Results Component Value Date NA 140 03/11/2021 K 3.9 03/11/2021 CL 106 03/11/2021 CO2 23 03/11/2021 Lab Results Component Value Date CREATININE 0.93 03/11/2021 Lab Results Component Value Date BUN 19 03/11/2021 No results found for: PREALBUMIN Recent Labs 03/13/21 0347 03/12/21 1812 PT 12.9* 11.7 INR 1.1 1.0 Studies: CXR 03/13: FINDINGS: Interval removal of left-sided apically directed chest tube. No pneumothorax. There is bilateral bronchial pulmonary markings. Postsurgical changes at the left base. No pleural effusion. The cardiomediastinal silhouette is within normal limits. Unchanged subcutaneous gas left chest wall. ?? IMPRESSION No pneumothorax following removal of left-sided chest tube. Pending Studies and Lab Data: No current labs Discharge Conditions/Prognosis: Stable Discharge to: Home Discharge Medications: Your Medications New Medications Dose Details acetaminophen 500 mg Tab Commonly known as: Tylenol Take 2 tablets by mouth every 6 hours as needed for Pain. 1,000 mg Quantity: 30 tablet Refills: 0 docusate sodium 100 mg Cap Commonly known as: Colace Take 1 capsule by mouth 2 times daily for 10 days. 100 mg Quantity: 20 capsule Refills: 0 enoxaparin 100 mg/mL Syrg Commonly known as: Lovenox Inject 0.8 mLs subcutaneously 2 times daily for 10 days. 1 mg/kg/dose Quantity: 16 mL Refills: 0 senna 8.6 mg Tab Commonly known as: Senokot Take 2 tablets by mouth 2 times daily. 2 tablet Quantity: 40 tablet Refills: 0 Continued medications, unchanged Dose Details aspirin EC 81 mg Tbec TAKE ONE TABLET BY MOUTH EVERY DAY Refills: 3 Coumadin 10 mg Tab Generic drug: warfarin Refills: 0 Updated Allergies/ADRs: No Known Allergies Instructions Given to Patient at Discharge: Patient Instructions Coumadin?? (warfarin) Management after Discharge Reason for anticoagulation therapy: Mechanical Heart Valves INR Goal: 2.5 - 3.5 Your Coumadin?? (warfarin) dosing instruction upon discharge is: Day of discharge: 10 mg Day #2 10 mg *Follow up with your Primary Doctor or Anticoagulation clinic for an INR check on Monday03/15/21. Primary Care Doctor: Linda Mccray MD [phone] [facility] Anticoagulation Clinic: [phone] Warfarin (Coumadin??) should be taken at the same time every day, usually at 5pm. Your next INR should be scheduled on: Monday AM March 15, 2021 by Provider listed below Provider/Team responsible for your outpatient Coumadin?? (warfarin) management: Primary Care Physician/Anticoagulation Clinic at [facility]. ??? If you have not received a call from your provider, by 4pm, after having your INR drawn, pleasecall for further dose instructions. ??? If you are taking Lovenox?? (enoxaparin) injections, continue taking until instructed to stop. (You will be taking this medication until your INR is in the therapeutic range.) It is very important that you have your PT/INR checked regularly as your dose may change based on your lab values. Expected duration of treatment: Indefinite The following table shows your most recent INR results and Coumadin?? warfarin doses: Date Notes INR Coumadin?? dose 03/13/21 1.1 5 mg Please review the instructions on how to take warfarin safely included in your discharge packet: ?? Taking Warfarin Safely: After Your Visit ?? Consistent Vitamin K Diet: After Your Visit Call if you have a fever of greater than 101 degrees, shaking chills, develop redness or drainage from your incision site(s), or if you have questions. During normal business hours, Monday- Monday 8:00 a.m.-5:00 p.m., please call to speak to a nurse in the Thoracic Clinic at [phone]. After hours or on weekends or holidays please call: [phone] and ask to speak to the Thoracic Surgeon on c all. Goldsmith Catheter: Please follow the instructions and materials provided for goldsmith catheter managementat home. You will follow up with your Urologist or your Primary Care Provider to perform a void trial and subsequent removal. Exercise & Activity Level: As you recover [...] between activities as you recoverfrom your procedure. Diet: You should follow a healthy diet consistent with current Coumadin therapy as recommended by your prescribing provider; avoid green leafy vegetables with Vitamin K. Driving: No driving for 1 week or while taking narcotic pain medication. New Medications: 1. LOVENOX injections: Self-administered as instructed twice daily (9 AM and 9 PM) until your INR is within therapeutic range determined by your primary care provider or anticoagulation clinic. Shower/Bath: You may shower daily starting 2 days after chest tube removal, no bathing or swimming until your follow-up appointment. Incision care: Wash your incision(s) daily with soap and rinse well, pat dry. Assess for any signs of infection such as increased redness, pain, warmth or drainage. If you had a chest tube, you may remove the dressing over the chest tube site in 2 days after the chest tube was removed and leave it open to the air if it is not draining. Otherwise change the dressing twice a day and as needed. The dressing may remain off once there is no drainage. If you have steri-strips over an incision site, these will remain in place for 7-10 days. You may shower with them, and they will fall off naturally in 7-10 days. If they do not fall off by 10 days, you may remove them. Pain: Pain after surgery is normal. The goal is for you to be able to tolerate pain so you can complete your daily activities. You may notice a burning or numbness on the side of your incision that may include your breast area. This should improve over time but there may be areas that remain numb. You may use a heating pad set on low or medium, over your incision to help relax the muscles in the area and decrease discomfort. Please take your medication as prescribed. If you are not having good pain control, please call and speak to the nurse in the Thoracic Clinic or the Thoracic Surgeon special forces communications sergeant after hours. Please take over the counter Tylenol 1000mg every 6 hours for baseline pain coverage. DO NOT exceedthat maximum dosing of 4000mg of Tylenol in 24 hours. Sleep: Try to establish normal sleep patterns. Long naps during the day may make it hard for you tosleep at night. Use the pain medication at bedtime for the first week at home if needed. Bowel Movements: After surgery, your bowel movements may not be regular for you, but you should be able to get back to your daily routine quickly. Please make sure to take the stool softeners or mildlaxatives as prescribed to get back to your normal routine. If you do not have a bowel movement formore than 2 days, please call the office. Follow up appointments: You will see Dr. Khalil in 2 weeks with a chest Xray within one hour of theappointment. A letter will be mailed to you confirming your appointment information. No future appointments. General Instructions Learning About Indwelling Urinary Catheter Care to Prevent Infection Overview A urinary catheter is a flexible plastic tube that's used to drain urine from your bladder when youcan't urinate on your own. The catheter allows urine to drain from the bladder into a bag. Two types of drainage bags may be used with a urinary catheter. ?? A bedside bag is a large bag that you can hang on the side of your bed or on a chair. You can use it overnight or anytime you will be sitting or lying down for a long time. ?? A leg bag is a small bag that you can use during the day. It is usually attached to your thigh or calf and hidden under your clothes. Having a urinary catheter increases your risk of getting a urinary tract infection. Germs may get on the catheter and cause an infection in your bladder or kidneys. The longer you have a catheter, the more likely it is that you will get an infection. You can help prevent this problem with good hygiene and careful handling of your catheter and drainage bags. How can you help prevent infection? Take care to stay clean ?? Always wash your hands well before and after you handle your catheter. ?? Clean the skin around the catheter daily using soap and water. Dry with a clean towel afterward.You can shower with your catheter and drainage bag in place unless your doctor told you not to. ?? When you clean around the catheter, check the surrounding skin for signs of infection. Look for things like pus and irritated, swollen, red, or tender skin around the catheter. Be careful with your drainage bag ?? Always keep the drainage bag below the level of your bladder. This will help keep urine from flowing back into your bladder. ?? Check often to see that urine is flowing through the catheter into the drainage bag. ?? Empty the drainage bag when it is half full. This will keep it from overflowing or backing up. ?? When you empty the drainage bag, do not let the tubing or drain spout touch anything. ?? Keep the cap that comes with the tubing, and cover the tip of the tubing when not in use. Be careful with your catheter ?? Do not unhook the catheter from the drain tube until you are ready to change the tubing and bag.That could let germs get into the tube. ?? Make sure that the catheter tubing does not get twisted or kinked. ?? Do not tug or pull on the catheter. And make sure that the drainage bag does not drag or pull onthe catheter. ?? Do not put powder or lotion on the skin around the catheter. ?? Talk with your doctor about your options for sexual intercourse while wearing a catheter. How do you empty the bag? If your doctor has asked you to keep a record, write down the amount of urine in the bag before youempty it. Wash your hands before and after you touch the bag. 1. Remove the drain spout from its sleeve at the bottom of the drainage bag. 2. Open the valve on the drain spout. Let the urine flow out into the toilet or a container. Be careful not to let the tubing or drain spout touch anything. 3. After you empty the bag, close the valve. Then put the drain spout back into its sleeve at the bottom of the collection bag. How do you switch to a bedside bag for overnight use? Wash your hands before and after you handle the bags. 1. Empty the leg bag that is attached to the tubing and catheter. 2. Put a clean towel under the tubing attached to the leg bag. 3. Use an alcohol wipe to clean the tip of the tubing attached to the bedside bag. 4. To stop the flow of urine, pinch the catheter with your fingers just above the tubing connection. 5. Use a twisting motion to disconnect the leg bag tubing from the catheter. 6. Then securely connect the catheter to the tubing from the bedside bag. How do you clean a bedside bag? Many people clean their bedside bag in the morning if they switch to a leg bag. To clean a bedside drainage ba. Remove the bedside bag and attach the leg bag. 2. Fill the bedside bag with 2 parts vinegar and 3 parts water. Let it stand for 20 minutes. 3. Empty the bag, and let it air dry. When should you call for help? Call your doctor now or seek immediate medical care if: ? You have symptoms of a urinary infection. These may include: ? Pain or burning when you urinate. ? A frequent need to urinate without being able to pass much urine. ? Pain in the flank, which is just below the rib cage and above the waist on either side of the back. ? Blood in your urine. ? A fever. ? Your urine smells bad. ? You see large blood clots in your urine. ? No urine or very little urine is flowing into the bag for 4 or more hours. Watch closely for changes in your health, and be sure to contact your doctor if: ? The area around the catheter becomes irritated, swollen, red, or tender, or there is pus draining from it. ? Urine is leaking from the place where the catheter enters your body. Follow-up care is a sunshine part of your treatment and safety. Be sure to make and go to all appointments, and call your doctor if you are having problems. It's also a good idea to know your test resultsand keep a list of the medicines you take. Where can you learn more? Visit our [employer] information library at https://Netuitive/powervaulto You can also view health information on netprice.com, your personal patient account. Log in or sign uptoday. Enter U010 in the search box to learn more about Learning About Indwelling Urinary Catheter Care to Prevent Infection. Current as of: April 20, 2020?Content Version: 12.8 ?? [employer]. Care instructions adapted under license by [facility]. If you have questions about a medical condition or this instruction, always ask your healthcare professional. [employer] disclaims any warranty or liability for your use of this information. Learning About How to Care for a Person's Indwelling Urinary Catheter Introduction A urinary catheter is a flexible plastic tube that's used to drain urine from the bladder when a person can't urinate. The catheter is placed into the bladder by inserting it through the urethra. Theurethra is the opening that carries urine from the bladder to the outside of the body. When the catheter is in the bladder, a small balloon is used to keep the catheter in place. The catheter lets urine drain from the bladder into a collection bag. Urinary catheters can be used in bothmen and women. A catheter that stays in place for a longer period of time is called an indwelling ca theter. A catheter may be needed because of certain medical conditions. These include an enlarged prostate or problems controlling urine. It may be used after surgery on the pelvis or urinary tract. Urinary catheters are also used when the lower part of the body is paralyzed. When helping a loved one with a catheter, try to be relaxed. Caring for a catheter can be embarrassing for both of you. If you are calm and don't seem embarrassed, the person may feel more comfortable. How do you take care of the catheter? Wear disposable gloves when handling someone's catheter. Make sure to follow all of the instructions the doctor has given. And always wash your hands before and after you're done. Here are some other things to remember when caring for someone's catheter: ?? Make sure that urine is running out of the catheter into the urine collection bag. And make surethat the catheter tubing does not get twisted or bent. ?? Keep the urine collection bag below the level of the bladder. At night it may be helpful to hangthe bag on the side of the bed. ?? Make sure that the urine collection bag does not drag and pull on the catheter. ?? It's okay to shower with a catheter and urine collection bag in place, unless the doctor says not to. ?? Check for swelling or signs of infection in the area around the catheter. Signs of infection include pus and irritated, swollen, red, or tender skin. ?? Clean the area around the catheter daily with soap and water. Dry with a clean towel afterward. ?? Do not apply powder or lotion to the skin around the catheter. ?? Do not tug or pull on the catheter. ?? Sexual intercourse may still be possible for people who wear a catheter. It's best to talk with a doctor about options. How do you empty the bag? The urine collection bag needs to be emptied regularly. It's best to empty the bag when it's about half full or at bedtime. If the doctor has asked you to measure the amount of urine, do that before you empty the urine into the toilet. When you are ready to empty the bag, follow these steps: 1. Put on disposable gloves. 2. Remove the drain spout from its sleeve at the bottom of the collection bag. Open the valve on the spout. 3. Let the urine flow out of the bag and into the toilet or a container. Do not let the tubing or drain spout touch anything. 4. After you empty the bag, close the valve and put the drain spout back into its sleeve. 5. Remove your gloves, and throw them away. 6. Wash your hands with soap and water. How do you care for someone after the catheter is removed? After the catheter is taken out, the person may have trouble urinating. If this happens, try helping them sit in a few inches of warm water (sitz bath). If the urge to urinate comes during the sitz bath, it may be easier for them to urinate while still in the bath. Some burning may happen the first few times the person urinates. If the burning lasts longer, it may be a sign of an infection. If the catheter causes irritation or a rash, wearing loose, cotton underwear may help. Watch closely for changes in the person's health. Be sure to contact their doctor if you notice anyproblems or if they are unable to urinate at all. Where can you learn more? Visit our [employer] information library at https://Netuitive/powervaulto You can also view health information on netprice.com, your personal patient account. Log in or sign uptoday. Enter X535 in the search box to learn more about Learning About How to Care for a Person's Indwelling Urinary Catheter. Current as of: May 08, 2020?Content Version: 12.8 ?? [employer]. Care instructions adapted under license by [facility]. If you have questions about a medical condition or this instruction, always ask your healthcare professional. [employer] disclaims any warranty or liability for your use of this information. Future Appointments and Orders Future Orders Complete By Expires XR Chest PA & Lateral (Generic) [54629 75165 Custom] 03/27/2021 (Approximate) 03/13/2022 Process Instructions: Scheduling Instructions: Questions: Where will study be performed?: [facility] Radiology Portable exam?: Reason for exam and clinical history: s/p LVATS partial decort, blebectomy, talc pleurodesis c/b hemothorax s/p re-op LVATS washout Clinical information / sunshine questions: PTX, effusion, lung appostion, comparison Stat read required?: Date of injury if applicable: Requested Time: Walker standard [EQ135 Custom] As directed Process Instructions: Scheduling Instructions: Comments: [place] Neri [address] [place] [facility] [id number] (home) [phone] (mobile) Diagnosis: deconditioning with Unsteady gait Significant weakness, ataxia or gait abnormality Patient's: Hgt: Ht Readings from Last 1 Encounters: 03/05/21 : 185.4 cm (6' 1) ? Wgt: Wt Readings from Last 1 Encounters: 03/13/21 : 81.6 kg (180 lb) VENDOR: [facility] Ordering: Front wheel walker Deliver to [facility] room #: 327A Questions: Vendor Name/Contact information: [facility] Provider Contact Information: Primary Care Provider: Linda Mccray MD [phone] Discharge References/Attachments: Discharge References/Attachments None For questions regarding this document or issues relating to this hospitalization on the Thoracic Surgery Service, please contact Dr. Khalil's office at . Signed: Jeff Almendarez MD 03/13/2021 CC: PCP: Linda Mccray MD Referring: Marii Kenyon Md [address] [place] [address] documented in this encounter Discharge Instructions * Discharge Instructions* Ashanti May MD - 03/13/2021 11:12 AM EDT Images from the original note were not included. Learning About Indwelling Urinary Catheter Care to Prevent Infection Overview A urinary catheter is a flexible plastic tube that's used to drain urine from your bladder when youcan't urinate on your own. The catheter allows urine to drain from the bladder into a bag. Two types of drainage bags may be used with a urinary catheter. ?? A bedside bag is a large bag that you can hang on the side of your bed or on a chair. You can use it overnight or anytime you will be sitting or lying down for a long time. ?? A leg bag is a small bag that you can use during the day. It is usually attached to your thigh or calf and hidden under your clothes. Having a urinary catheter increases your risk of getting a urinary tract infection. Germs may get on the catheter and cause an infection in your bladder or kidneys. The longer you have a catheter, the more likely it is that you will get an infection. You can help prevent this problem with good hygiene and careful handling of your catheter and drainage bags. How can you help prevent infection? Take care to stay clean ?? Always wash your hands well before and after you handle your catheter. ?? Clean the skin around the catheter daily using soap and water. Dry with a clean towel afterward.You can shower with your catheter and drainage bag in place unless your doctor told you not to. ?? When you clean around the catheter, check the surrounding skin for signs of infection. Look for things like pus and irritated, swollen, red, or tender skin around the catheter. Be careful with your drainage bag ?? Always keep the drainage bag below the level of your bladder. This will help keep urine from flowing back into your bladder. ?? Check often to see that urine is flowing through the catheter into the drainage bag. ?? Empty the drainage bag when it is half full. This will keep it from overflowing or backing up. ?? When you empty the drainage bag, do not let the tubing or drain spout touch anything. ?? Keep the cap that comes with the tubing, and cover the tip of the tubing when not in use. Be careful with your catheter ?? Do not unhook the catheter from the drain tube until you are ready to change the tubing and bag.That could let germs get into the tube. ?? Make sure that the catheter tubing does not get twisted or kinked. ?? Do not tug or pull on the catheter. And make sure that the drainage bag does not drag or pull onthe catheter. ?? Do not put powder or lotion on the skin around the catheter. ?? Talk with your doctor about your options for sexual intercourse while wearing a catheter. How do you empty the bag? If your doctor has asked you to keep a record, write down the amount of urine in the bag before youempty it. Wash your hands before and after you touch the bag. 1. Remove the drain spout from its sleeve at the bottom of the drainage bag. 2. Open the valve on the drain spout. Let the urine flow out into the toilet or a container. Be careful not to let the tubing or drain spout touch anything. 3. After you empty the bag, close the valve. Then put the drain spout back into its sleeve at the bottom of the collection bag. How do you switch to a bedside bag for overnight use? Wash your hands before and after you handle the bags. 1. Empty the leg bag that is attached to the tubing and catheter. 2. Put a clean towel under the tubing attached to the leg bag. 3. Use an alcohol wipe to clean the tip of the tubing attached to the bedside bag. 4. To stop the flow of urine, pinch the catheter with your fingers just above the tubing connection. 5. Use a twisting motion to disconnect the leg bag tubing from the catheter. 6. Then securely connect the catheter to the tubing from the bedside bag. How do you clean a bedside bag? Many people clean their bedside bag in the morning if they switch to a leg bag. To clean a bedside drainage ba. Remove the bedside bag and attach the leg bag. 2. Fill the bedside bag with 2 parts vinegar and 3 parts water. Let it stand for 20 minutes. 3. Empty the bag, and let it air dry. When should you call for help? Call your doctor now or seek immediate medical care if: ? You have symptoms of a urinary infection. These may include: ? Pain or burning when you urinate. ? A frequent need to urinate without being able to pass much urine. ? Pain in the flank, which is just below the rib cage and above the waist on either side of the back. ? Blood in your urine. ? A fever. ? Your urine smells bad. ? You see large blood clots in your urine. ? No urine or very little urine is flowing into the bag for 4 or more hours. Watch closely for changes in your health, and be sure to contact your doctor if: ? The area around the catheter becomes irritated, swollen, red, or tender, or there is pus draining from it. ? Urine is leaking from the place where the catheter enters your body. Follow-up care is a sunshine part of your treatment and safety. Be sure to make and go to all appointments, and call your doctor if you are having problems. It's also a good idea to know your test resultsand keep a list of the medicines you take. Where can you learn more? Visit our [employer] information library at https://Netuitive/powervaulto You can also view health information on netprice.com, your personal patient account. Log in or sign uptoday. Enter U010 in the search box to learn more about Learning About Indwelling Urinary Catheter Care to Prevent Infection. Current as of: April 20, 2020?Content Version: 12.8 ?? [employer]. Care instructions adapted under license by [facility]. If you have questions about a medical condition or this instruction, always ask your healthcare professional. [employer] disclaims any warranty or liability for your use of this information. Learning About How to Care for a Person's Indwelling Urinary Catheter Introduction A urinary catheter is a flexible plastic tube that's used to drain urine from the bladder when a person can't urinate. The catheter is placed into the bladder by inserting it through the urethra. Theurethra is the opening that carries urine from the bladder to the outside of the body. When the catheter is in the bladder, a small balloon is used to keep the catheter in place. The catheter lets urine drain from the bladder into a collection bag. Urinary catheters can be used in bothmen and women. A catheter that stays in place for a longer period of time is called an indwelling ca theter. A catheter may be needed because of certain medical conditions. These include an enlarged prostate or problems controlling urine. It may be used after surgery on the pelvis or urinary tract. Urinary catheters are also used when the lower part of the body is paralyzed. When helping a loved one with a catheter, try to be relaxed. Caring for a catheter can be embarrassing for both of you. If you are calm and don't seem embarrassed, the person may feel more comfortable. How do you take care of the catheter? Wear disposable gloves when handling someone's catheter. Make sure to follow all of the instructions the doctor has given. And always wash your hands before and after you're done. Here are some other things to remember when caring for someone's catheter: ?? Make sure that urine is running out of the catheter into the urine collection bag. And make surethat the catheter tubing does not get twisted or bent. ?? Keep the urine collection bag below the level of the bladder. At night it may be helpful to hangthe bag on the side of the bed. ?? Make sure that the urine collection bag does not drag and pull on the catheter. ?? It's okay to shower with a catheter and urine collection bag in place, unless the doctor says not to. ?? Check for swelling or signs of infection in the area around the catheter. Signs of infection include pus and irritated, swollen, red, or tender skin. ?? Clean the area around the catheter daily with soap and water. Dry with a clean towel afterward. ?? Do not apply powder or lotion to the skin around the catheter. ?? Do not tug or pull on the catheter. ?? Sexual intercourse may still be possible for people who wear a catheter. It's best to talk with a doctor about options. How do you empty the bag? The urine collection bag needs to be emptied regularly. It's best to empty the bag when it's about half full or at bedtime. If the doctor has asked you to measure the amount of urine, do that before you empty the urine into the toilet. When you are ready to empty the bag, follow these steps: 1. Put on disposable gloves. 2. Remove the drain spout from its sleeve at the bottom of the collection bag. Open the valve on the spout. 3. Let the urine flow out of the bag and into the toilet or a container. Do not let the tubing or drain spout touch anything. 4. After you empty the bag, close the valve and put the drain spout back into its sleeve. 5. Remove your gloves, and throw them away. 6. Wash your hands with soap and water. How do you care for someone after the catheter is removed? After the catheter is taken out, the person may have trouble urinating. If this happens, try helping them sit in a few inches of warm water (sitz bath). If the urge to urinate comes during the sitz bath, it may be easier for them to urinate while still in the bath. Some burning may happen the first few times the person urinates. If the burning lasts longer, it may be a sign of an infection. If the catheter causes irritation or a rash, wearing loose, cotton underwear may help. Watch closely for changes in the person's health. Be sure to contact their doctor if you notice anyproblems or if they are unable to urinate at all. Where can you learn more? Visit our [employer] information library at https://Netuitive/powervaulto You can also view health information on netprice.com, your personal patient account. Log in or sign uptoday. Enter X535 in the search box to learn more about Learning About How to Care for a Person's Indwelling Urinary Catheter. Current as of: May 08, 2020?Content Version: 12.8 ?? [employer]. Care instructions adapted under license by [facility]. If you have questions about a medical condition or this instruction, always ask your healthcare professional. [employer] disclaims any warranty or liability for your use of this information. * Patient Instructions* Pardeep Lima PA - 03/12/2021 12:16 PM EDT Coumadin?? (warfarin) Management after Discharge Reason for anticoagulation therapy: Mechanical Heart Valves INR Goal: 2.5 - 3.5 Your Coumadin?? (warfarin) dosing instruction upon discharge is: Day of discharge: 10 mg Day #2 10 mg *Follow up with your Primary Doctor or Anticoagulation clinic for an INR check on Monday03/15/21. Primary Care Doctor: Linda Mccray MD [phone] [facility] Anticoagulation Clinic: [phone] Warfarin (Coumadin??) should be taken at the same time every day, usually at 5pm. Your next INR should be scheduled on: Monday AM March 15, 2021 by Provider listed below Provider/Team responsible for your outpatient Coumadin?? (warfarin) management: Primary Care Physician/Anticoagulation Clinic at [facility]. ??? If you have not received a call from your provider, by 4pm, after having your INR drawn, pleasecall for further dose instructions. ??? If you are taking Lovenox?? (enoxaparin) injections, continue taking until instructed to stop. (You will be taking this medication until your INR is in the therapeutic range.) It is very important that you have your PT/INR checked regularly as your dose may change based on your lab values. Expected duration of treatment: Indefinite The following table shows your most recent INR results and Coumadin?? warfarin doses: Date Notes INR Coumadin?? dose 03/13/21 1.1 5 mg Please review the instructions on how to take warfarin safely included in your discharge packet: ?? Taking Warfarin Safely: After Your Visit ?? Consistent Vitamin K Diet: After Your Visit Call if you have a fever of greater than 101 degrees, shaking chills, develop redness or drainage from your incision site(s), or if you have questions. During normal business hours, Monday- Monday 8:00 a.m.-5:00 p.m., please call to speak to a nurse in the Thoracic Clinic at [phone]. After hours or on weekends or holidays please call: [phone] and ask to speak to the Thoracic Surgeon on c all. Goldsmith Catheter: Please follow the instructions and materials provided for goldsmith catheter managementat home. You will follow up with your Urologist or your Primary Care Provider to perform a void trial and subsequent removal. Exercise & Activity Level: As you recover [...] between activities as you recoverfrom your procedure. Diet: You should follow a healthy diet consistent with current Coumadin therapy as recommended by your prescribing provider; avoid green leafy vegetables with Vitamin K. Driving: No driving for 1 week or while taking narcotic pain medication. New Medications: 1. LOVENOX injections: Self-administered as instructed twice daily (9 AM and 9 PM) until your INR is within therapeutic range determined by your primary care provider or anticoagulation clinic. Shower/Bath: You may shower daily starting 2 days after chest tube removal, no bathing or swimming until your follow-up appointment. Incision care: Wash your incision(s) daily with soap and rinse well, pat dry. Assess for any signs of infection such as increased redness, pain, warmth or drainage. If you had a chest tube, you may remove the dressing over the chest tube site in 2 days after the chest tube was removed and leave it open to the air if it is not draining. Otherwise change the dressing twice a day and as needed. The dressing may remain off once there is no drainage. If you have steri-strips over an incision site, these will remain in place for 7-10 days. You may shower with them, and they will fall off naturally in 7-10 days. If they do not fall off by 10 days, you may remove them. Pain: Pain after surgery is normal. The goal is for you to be able to tolerate pain so you can complete your daily activities. You may notice a burning or numbness on the side of your incision that may include your breast area. This should improve over time but there may be areas that remain numb. You may use a heating pad set on low or medium, over your incision to help relax the muscles in the area and decrease discomfort. Please take your medication as prescribed. If you are not having good pain control, please call and speak to the nurse in the Thoracic Clinic or the Thoracic Surgeon special forces communications sergeant after hours. Please take over the counter Tylenol 1000mg every 6 hours for baseline pain coverage. DO NOT exceedthat maximum dosing of 4000mg of Tylenol in 24 hours. Sleep: Try to establish normal sleep patterns. Long naps during the day may make it hard for you tosleep at night. Use the pain medication at bedtime for the first week at home if needed. Bowel Movements: After surgery, your bowel movements may not be regular for you, but you should be able to get back to your daily routine quickly. Please make sure to take the stool softeners or mildlaxatives as prescribed to get back to your normal routine. If you do not have a bowel movement formore than 2 days, please call the office. Follow up appointments: You will see Dr. Khalil in 2 weeks with a chest Xray within one hour of theappointment. A letter will be mailed to you confirming your appointment information. No future appointments. documented in this encounter Medications at Time of Discharge Medication Sig Dispensed Refills Start Date End Date betamethasone dipropionate (DIPROLENE) 0.05 % Cream APPLY SMALL AMOUNT EXTERNALLY TO RASH TWICE DAILY FOR NO MORE THAN 2 WEEKS 01/15/2021 08/08/2023 dextroamphetamine-am phetamine (Adderall) 10 mg Tablet Take 10 mg by mouth Daily. 02/03/2020 08/24/2021 enoxaparin (Lovenox) 80 mg/0.8 mL Syringe ADMINISTER 0.8 ML UNDER THE SKIN TWICE DAILY FOR 10 DAYS 03/13/2021 08/24/2021 enoxaparin (Lovenox) 100 mg/mL Syringe Inject 0.8 mLs subcutaneously 2 times daily for 10 days. 16 mL 03/13/2021 03/23/2021 docusate sodium (Colace) 100 mg Capsule Take 1 capsule by mouth 2 times daily for 10 days. 20 capsule 03/13/2021 03/23/2021 acetaminophen (Tylenol) 500 mg Tablet Take 2 [...] 09/11/2007 12/16/2021 documented as of this encounter Progress Notes * Dominique Garcia RN - 03/13/2021 3:38 PM EDT Received a call from patient's at approximately 1830 that they were unable to rock picker patient's Lovenox from pharmacy after patient was discharged, and that the pharmacy is now closed. With assistance from Dr. Jeff Almendarez, was able to arrange for patient to present at ED in [facility] to receive his 80 mg dose of Lovenox this evening and rock picker his regular prescription on Monday morning in order to continue with his home dosing BID. Notified patient's by phone at approximately 1940 of this plan, she verbalized understanding and agreement. * Dominique Garcia RN - 03/13/2021 3:36 PM EDT Pt d/c to home per md order. Patient AOx4 hrr, lung sounds clear, no n/v sob Goldsmith in place draining clear yellow urine with sediment. Patient ambulating independently with walker at this time. Pain well controlled with tylenol. All LDA's removed. All belongings home with patient. Prescriptions given to patient, all discharge instructions reviewed with patient. Educated patient on Lovenox injection as well as Goldsmith catheter care and changing from leg bag to large drainage bag. All questions answered. Please see flowsheet for full assessment. Dominique Garcia RN * Avril East RN - 03/13/2021 5:12 AM EDT OUTCOME EVALUATION NOTE: OUTCOME SUMMARY: Patient a/ox4, denies CP and N/V. Reports SOB and dizziness with ambulation. Patient's pain adequately controlled with scheduled medications, see MAR for medications given. Continuous tele maintained, no events overnight. VSS on RA. L chest tube intact, set to H2O seal. Chest tube clamped since 00:00, x-ray scheduled for 05:00. PIV intact in R, new PIV placed in L forearm. Tolerating regular dietwell. Voiding adequate amounts through goldsmith, sediment present, team notified. LBM 03/13. Will continue to monitor and help patient reach d/c goals. PLAN MOVING FORWARD: Pain control Mobilize Chest tube clamping trial Continuous tele Monitor urine Monitor H&H D/C planning INDIVIDUALIZED FALL PREVENTION: Patient is currently a high risk to Fall. Patient educated on bed/chair alarm, demonstrates proper use of call harris and verbalizes understanding of fall preventions implemented. Patient-specific fall risk factors per assessment: [current deficits]: PIVs, L chest tube, goldsmith, Weakness, SOB and dizziness with ambulation, Pain, Medications, Hospital Environment, Impaired Mobility, Recent Surgery Assistance [level of assistance required for transfers and ambulation]: 1A with FWW Supervision [direct monitoring required during toileting and ADLs]: Moderate assistance with ADL's Surveillance [continuous indirect monitoring]: Masimo, Purposeful Rounding, Nurse Knowledge Exchange at Bedside, Bed Alarm Set * Ashanti May MD - 03/12/2021 12:13 PM EDT Images from the original note were not included. [facility] Department of Thoracic Surgery Inpatient Progress Note Patient Name: London Neri Patient : 1950 Patient [facility] Attending Surgeon: KENNETH NEWBY DAVID J ID: London Neri is a 70 y.o. male who is s/p L VATS partial decortication, blebectomy and talc pleurodesis on 03/06/21 with oozing from left chest tube; re- op?? 3 Days Post-Op s/p Bronchoscopy, LVATS washout with control of bleeding and evacuation of 1.5L of clotted blood. Subjective: - dizziness has improved - No nausea/vomiting, chest pain, SOB, pain well controlled, offers no complaints Vitals: Temp: [36.6 ??C (97.9 ??F)-37.1 ??C (98.8 ??F)] Heart Rate: -- Resp: [14-20] BP: (105-130)/(39-50) SpO2: [96 %-98 %] Heart Rate from SpO2: [53 bpm-65 bpm] Wt & BMI By Encounter Date ED to Hosp-Admission (Current) from 03/05/2021 in 3 [facility] [place] 08[place]10/2020 [place] [facility] [place] 81.7 kg (180 lb 3.2 oz) 1 03/12/2021 0542 81.6 kg (180 lb) 1 08/10/2020 1003 BMI 22.43 1 03/05/2021 1513 23.75 1 08/10/2020 1003 Physical Exam: Gen: NAD, pleasant, sitting in chair. HEENT: sclerae anicteric Neck: supple, trachea midline Card: RRR, no M/R/G appreciated Pulm: mild diffuse wheezing on left chest, otherwise CTAB, no ronchi/rales appreciated, non-laboredbreathing on RA, Left CTx2 to -20 sxn as below. Incisions C/D/I Abd: soft, NT : goldsmith in place Ext: warm, dry, no edema Neuro: A&Ox3, CN II-XII grossly intact, nonfocal, conversant L. Anterior CT: 210 cc; thin ss output with 1 column small provoked air leak present I/O: I/O last 3 completed shifts: In: 1025 [P.O.:1020; I.V.:5] Out: 4290 [Urine:3975; Other:315] Labs: Recent Results (from the past 72 hour(s)) Basic Metabolic Panel (non-fasting) Result Value Ref Range Glucose Lvl 106 65 - 199 mg/dL BUN 18 10 - 20 mg/dL Creatinine 0.76 (L) 0.80 - 1.50 mg/dL Sodium 133 (L) 135 - 145 mmol/L Potassium 4.5 3.5 - 5.0 mmol/L Chloride 104 98 - 107 mmol/L CO2 22 22 - 31 mmol/L Anion Gap 7 5 - 15 mmol/L Calcium 7.9 (L) 8.5 - 10.5 mg/dL Estimated GFR 92 >=60 mL/min/1.73 m?? Magnesium Result Value Ref Range Magnesium 0.92 0.69 - 1.07 mmol/L Phosphorus Result Value Ref Range Phosphorus 2.4 (L) 2.5 - 4.5 mg/dL Hemogram Result Value Ref Range WBC 11.0 (H) 4.0 - 9.5 x10(3)/mcL RBC 2.56 (L) 4.58 - 5.54 x10(6)/mcL Hemoglobin 7.6 (L) 13.7 - 16.5 gm/dL Hematocrit 22.3 (L) 40.5 - 48.5 % MCV 87.1 82.9 - 93.1 fL MCH 29.7 27.5 - 32.1 pg MCHC 34.1 32.0 - 35.7 gm/dL Platelets 208 145 - 357 x10(3)/mcL RDWSD 47.7 (H) 36.0 - 45.0 fL RDWCV 14.9 (H) 11.4 - 13.8 % MPV 9.8 7.6 - 12.9 fL nRBC % Auto 0.0 % nRBC Abs Auto 0.000 0.000 - 0.000 x10(3)/mcL Differential, Automated Result Value Ref Range Neutrophils % 79.5 % Neutr Abs (ANC) 8.74 (H) 1 - 6 x10(3)/mcL Lymphocytes % 9.8 % Lymphocytes Abs 1.1 0.9 - 3.2 x10(3)/mcL Monocytes % 9.5 % Monocyte Abs 1.0 (H) 0.3 - 0.9 x10(3)/mcL Eosinophils % 0.5 % Eosinophils Abs 0.1 0.0 - 0.4 x10(3)/mcL Basophils % 0.2 % Basophils Abs 0.0 0.0 - 0.1 x10(3)/mcL Immature Gran % 0.50 % Mae Gran Abs 0.05 (H) 0.00 - 0.04 x10(3)/mcL Basic Metabolic Panel (non-fasting) Result Value Ref Range Glucose Lvl 100 65 - 199 mg/dL BUN 19 10 - 20 mg/dL Creatinine 0.93 0.80 - 1.50 mg/dL Sodium 140 135 - 145 mmol/L Potassium 3.9 3.5 - 5.0 mmol/L Chloride 106 98 - 107 mmol/L CO2 23 22 - 31 mmol/L Anion Gap 11 5 - 15 mmol/L Calcium 8.3 (L) 8.5 - 10.5 mg/dL Estimated GFR 82 >=60 mL/min/1.73 m?? Hemogram Result Value Ref Range WBC 7.8 4.0 - 9.5 x10(3)/mcL RBC 2.55 (L) 4.58 - 5.54 x10(6)/mcL Hemoglobin 7.3 (L) 13.7 - 16.5 gm/dL Hematocrit 22.6 (L) 40.5 - 48.5 % MCV 88.6 82.9 - 93.1 fL MCH 28.6 27.5 - 32.1 pg MCHC 32.3 32.0 - 35.7 gm/dL Platelets 251 145 - 357 x10(3)/mcL RDWSD 46.9 (H) 36.0 - 45.0 fL RDWCV 14.5 (H) 11.4 - 13.8 % MPV 10.3 7.6 - 12.9 fL nRBC % Auto 0.4 % nRBC Abs Auto 0.030 (H) 0.000 - 0.000 x10(3)/mcL Differential, Automated Result Value Ref Range Neutrophils % 65.8 % Neutr Abs (ANC) 5.12 1 - 6 x10(3)/mcL Lymphocytes % 14.2 % Lymphocytes Abs 1.1 0.9 - 3.2 x10(3)/mcL Monocytes % 11.0 % Monocyte Abs 0.9 0.3 - 0.9 x10(3)/mcL Eosinophils % 6.9 % Eosinophils Abs 0.5 (H) 0.0 - 0.4 x10(3)/mcL Basophils % 0.6 % Basophils Abs 0.0 0.0 - 0.1 x10(3)/mcL Immature Gran % 1.50 % Mae Gran Abs 0.12 (H) 0.00 - 0.04 x10(3)/mcL Hemogram Result Value Ref Range WBC 8.7 4.0 - 9.5 x10(3)/mcL RBC 2.34 (L) 4.58 - 5.54 x10(6)/mcL Hemoglobin 7.0 (L) 13.7 - 16.5 gm/dL Hematocrit 20.8 (L) 40.5 - 48.5 % MCV 88.9 82.9 - 93.1 fL MCH 29.9 27.5 - 32.1 pg MCHC 33.7 32.0 - 35.7 gm/dL Platelets 275 145 - 357 x10(3)/mcL RDWSD 45.6 (H) 36.0 - 45.0 fL RDWCV 14.4 (H) 11.4 - 13.8 % MPV 9.5 7.6 - 12.9 fL nRBC % Auto 0.5 % nRBC Abs Auto 0.040 (H) 0.000 - 0.000 x10(3)/mcL Differential, Automated Result Value Ref Range Neutrophils % 70.0 % Neutr Abs (ANC) 6.10 1 - 6 x10(3)/mcL Lymphocytes % 13.8 % Lymphocytes Abs 1.2 0.9 - 3.2 x10(3)/mcL Monocytes % 9.3 % Monocyte Abs 0.8 0.3 - 0.9 x10(3)/mcL Eosinophils % 5.1 % Eosinophils Abs 0.4 0.0 - 0.4 x10(3)/mcL Basophils % 0.7 % Basophils Abs 0.1 0.0 - 0.1 x10(3)/mcL Immature Gran % 1.10 % Mae Gran Abs 0.10 (H) 0.00 - 0.04 x10(3)/mcL Green Tube HOLD Result Value Ref Range Green Hold Sample in lab. Diagnostics: CXR in PACU 03/09/21 IMPRESSION 1. Interval placement of a second left-sided chest tube with improved aeration of the left lung. 2. No definite hemothorax or pneumothorax. Assessment: London Neri is a 70 y.o. male who is 3 Days Post-Op re-op??s/p Bronchoscopy, LVATS washout with control of bleeding and evacuation of 1.5L of clotted blood. He is currently in stable condition andrecovering well postoperatively. Plan: Neuro: tylenol, Tramadol 50 q6 PRN Card: HDS, monitor vitals,ASA 81 mg Pulm: IS/cough/deep breathe/OOB/ambulate. Continue Left CT to -20 sxn, monitor output. AM CXR FENGI: Regular diet. RBOs Renal/: Goldsmith in place, monitor UOP, Flomax Heme: SQH ID: CAROLINE Endo: CAROLINE PPx: scds; SQH, Ambulate 4x a day. OOB. Dispo: full code, floor status Ashanti May MD 03/12/2021 Thoracic Surgery Service Pager [phone] * Mayra Scales, [facility] - 03/12/2021 11:55 AM EDT Physical Therapy Note Treatment Number PT: 2 Patient profile: London Neri??is a 70 y.o.??male admittted 03/05/21??with PMHx significant for recurrent spontaneous pneumothorax, CHF, mitral and aortic mechanical valves (both placed 1998, on coumadin), s/p pacemaker who presents as transfer from [facility] for surgical treatment of recurrent spontaneous left pneumothorax. ?? Reports sudden onset of SOB on Monday which he knew felt like his prior ptx and presented to [facility] for treatment. ??Hospitalized at [facility] from 03/03 until today when [place] [facility] [place] his recurrent [place]. Had L-sided CT placed at [facility], with continuous air-leak sinceadmission. Pt reports this is his fourth ptx, first occurred 2 years ago after multiple broken ribsincurred by slip and fall on ice. The 2nd and 3rd ptx were non-traumatic and one was attributed to lifting heavy item. Since CT placed at [facility] SOB has improved. S/p L VATS partial decortication, blebectomy and talc pleurodesis on 03/06/21 with oozing from left chest tube; re-op Post-Op??s/p Bronchoscopy, LVATS washout with control of bleeding and evacuation of 1.5L of clotted blood. Pt with syncopal episode while sitting on the commode sustaining abrasion to the forehead. Pacemaker interrogated. Interval History: 1 CT removed, remaining CT to suction, clamped during session Social History: Patient lives??w/ his , home and able to assist.?? Home Setup:??5-6 STEw/ 2 rails, all needs met on first floor. Pt has a tub shower w/ grab bars and a standard toilet.?? DME:??toilet riser?? 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 Precautions/Special Considerations: 1 L CTs to suction, can come off for gait; hypotension with recent syncopal episode; Anemia (HGB 7.3). Pacemaker. Lines: Goldsmith, PIV, naye Mobility and Positioning Recommendations: ?? Pt able to ambulate with FWW and supervision, encourage three times daily. ?? Please encourage up to chair for meal times as able. Subjective: I've been able to get out for a couple walks a day now. It was tough at first, but nowwe got it squared away Objective: Patient seen for physical therapy and demonstrated the following: Pain: no repots of pain Vital Signs: SpO2 >90% BP sitting 101/39 BP standing 128/53 BP post walk 134/39 ?? Pt sitting in recliner chair, agreeable to therapy ?? Sit to stand to FWW, UE push off, supervision, steady ?? Ambulated 300 ft with FWW, slow step through gait, steady, several standing rest breaks, extra time required, no c/o lightheadedness but reports SOB ?? Seated rest break ?? Step up/down on 7 inch platform step, supervision and cues provided, alternating steps x 6 each leg ?? Pt left in bedside recliner chair, with all needs met and with call harris in reach following visit. Education: patient has been educated on Transfers, Assistive device/technique, Breathing exercises,Positioning, Safety, Gait, Activity pacing/Energy conservation, Role of therapy, Balance and Discharge planning and needs reinforcement Assessment: London Neri was seen today for physical therapy treatment session for continuation of POC. Remained hemodynamically stable throughout session, able to manage ambulation and stair tasks. Increased SOB with activity, benefits from standing rest breaks to recover. Encourage continued ambulation with nursing and mobility tech to progress independence. Pt will benefit from ongoing therapeutic interventions to achieve therapy goals. Discharge Recommendations: Based on the current findings, Anticipated Discharge Disposition (PT): home with supervision when medically ready for hospital discharge. Consult Recommendations: No other consults recommended at this time. Equipment needs: Anticipated Equipment Needs at Discharge (PT): not yet known Physical Therapy Goals: To be achieved by 03/19/21: Ongoing ?? 1. Pt. to demonstrate knowledge of safety limitations and precautions and will appropriately request assistance for functional activities and to mobilize. 2. Pt. to demonstrate understanding of appropriate exercises. 3. Pt. to perform bed mobility with modified independence. 4. Pt. to perform sit<>stand transfers with modified independence using LRAD. 5. Pt. to ambulate >500 feet with supervision using a LRAD and supervsion, VSS.. 6. Pt. to ambulate up/down 6 step/stairs using two rails with supervision. 7. Family or caregiver to demonstrate understanding of therapeutic interventions to support the care of the patient. 8. Pt will tolerate progression towards upright with stable vital signs. Plan: Therapy Frequency (PT): 3-5 times/wk as outlined in initial evaluation. Patient agrees with plan as stated. Time IN / OUT: 11:25-11:55 Total Minutes, Physical Therapy: 30 (TE-F x 2) MAYRA SCALES PTA Pager: [phone] Physical Therapy Inpatient Rehabilitation Department * Avril East RN - 03/12/2021 6:23 AM EDT OUTCOME EVALUATION NOTE: OUTCOME SUMMARY: Patient progressing towards d/c goals appropriately at this time. Patient's pain adequately controlled with scheduled medications, see MAR for medications given. VSS on RA. Contionous Tele maintained, tele called at start of shift to confirm a QTc of 0.50, team notified. PIV intact. Chest tube to anterior left chest maintained at -20mmHg, small serosanguinous drainage throughout shift. Toleratingregular diet well. Voiding adequate amounts of clear urine through goldsmith, team messaged about indication, goldsmith care completed. LBM 03/12. OOB to walk around unit x1, reports fatigue. Will continue tomonitor and help patient reach d/c goals. PLAN MOVING FORWARD: Pain control Mobilize Chest tube to LCWS Continous Tele D/C planning INDIVIDUALIZED FALL PREVENTION: Patient is currently a high risk to Fall. Patient educated on bed/chair alarm, demonstrates proper use of call harris and verbalizes understanding of fall preventions implemented. Patient-specific fall risk factors per assessment: [current deficits]: PIV, Chest tube, Goldsmith, Weakness, Pain, Medications, Hospital Environment, Impaired Mobility, Recent Surgery Assistance [level of assistance required for transfers and ambulation]: 1A with FWW Supervision [direct monitoring required during toileting and ADLs]: Minimal assistance with ADL's Surveillance [continuous indirect monitoring]: Masimo, Purposeful Rounding, Nurse Knowledge Exchange at Bedside, Bed Alarm Set * Malorie Mccauley APRN - 03/11/2021 9:53 AM EDT [facility] Department of Thoracic Surgery Inpatient Progress Note Patient Name: London Neri Patient : 1950 Patient Patient Location: [address] [place] [address] Attending Surgeon: KENNETH NEWBY DAVID J ID: London Neri is a 70 y.o. male who is s/p L VATS partial decortication, blebectomy and talc pleurodesis on 03/06/21 with oozing from left chest tube; re- op?? 2 Days Post-Op s/p Bronchoscopy, LVATS washout with control of bleeding and evacuation of 1.5L of clotted blood. Subjective: - AFVSS, reports one episode of dizziness overnight otherwise denies complaints - No nausea/vomiting, chest pain, SOB, pain well controlled, breathing comfortably on RA Vitals: Temp: [36.5 ??C (97.7 ??F)-36.8 ??C (98.2 ??F)] Heart Rate: [61] Resp: [15-18] BP: (99-127)/(36-48) SpO2: [94 %-100 %] Heart Rate from SpO2: [60 bpm-63 bpm] Wt & BMI By Encounter Date ED to Hosp-Admission (Current) from 03/05/2021 in 3 [facility] Office Visit from 08/10/2020 [place] [facility] [place] 59.6 kg (131 lb 4.8 oz) 1 03/11/2021 0724 81.6 kg (180 lb) 1 08/10/2020 1003 BMI 22.43 1 03/05/2021 1513 23.75 1 08/10/2020 1003 Physical Exam: Gen: NAD, pleasant, laying in bed. HEENT: sclerae anicteric Neck: supple, trachea midline Card: RRR, no M/R/G appreciated Pulm: mild diffuse wheezing on left chest, otherwise CTAB, no ronchi/rales appreciated, non-laboredbreathing on RA, Left CTx2 to -20 sxn as below. Incisions C/D/I Abd: soft, NT : goldsmith in place Ext: warm, dry, no edema Neuro: A&Ox3, CN II-XII grossly intact, nonfocal, conversant L. Anterior CT: 128 cc (100cc o/n); thin ss output with 1 column intermittent air leak present on quiet respiration. L. Posterior CT: 40 cc (0cc o/n); thin ss output no air leak appreciated. I/O: I/O last 3 completed shifts: In: 1705 [P.O.:1700; I.V.:5] Out: 3626 [Urine:3275; Other:351] Labs: Recent Results (from the past 72 hour(s)) Basic Metabolic Panel (non-fasting) Result Value Ref Range Glucose Lvl 109 65 - 199 mg/dL BUN 12 10 - 20 mg/dL Creatinine 0.78 (L) 0.80 - 1.50 mg/dL Sodium 137 135 - 145 mmol/L Potassium 4.0 3.5 - 5.0 mmol/L Chloride 101 98 - 107 mmol/L CO2 26 22 - 31 mmol/L Anion Gap 10 5 - 15 mmol/L Calcium 8.5 8.5 - 10.5 mg/dL Estimated GFR 91 >=60 mL/min/1.73 m?? Magnesium Result Value Ref Range Magnesium 0.70 0.69 - 1.07 mmol/L Phosphorus Result Value Ref Range Phosphorus 2.7 2.5 - 4.5 mg/dL Hemogram Result Value Ref Range WBC 11.2 (H) 4.0 - 9.5 x10(3)/mcL RBC 3.59 (L) 4.58 - 5.54 x10(6)/mcL Hemoglobin 10.6 (L) 13.7 - 16.5 gm/dL Hematocrit 31.6 (L) 40.5 - 48.5 % MCV 88.0 82.9 - 93.1 fL MCH 29.5 27.5 - 32.1 pg MCHC 33.5 32.0 - 35.7 gm/dL Platelets 170 145 - 357 x10(3)/mcL RDWSD 43.1 36.0 - 45.0 fL RDWCV 13.2 11.4 - 13.8 % MPV 10.6 7.6 - 12.9 fL nRBC % Auto 0.0 % nRBC Abs Auto 0.000 0.000 - 0.000 x10(3)/mcL Differential, Automated Result Value Ref Range Neutrophils % 85.5 % Neutr Abs (ANC) 9.55 (H) 1 - 6 x10(3)/mcL Lymphocytes % 5.6 % Lymphocytes Abs 0.6 (L) 0.9 - 3.2 x10(3)/mcL Monocytes % 8.1 % Monocyte Abs 0.9 0.3 - 0.9 x10(3)/mcL Eosinophils % 0.1 % Eosinophils Abs 0.0 0.0 - 0.4 x10(3)/mcL Basophils % 0.3 % Basophils Abs 0.0 0.0 - 0.1 x10(3)/mcL Immature Gran % 0.40 % Mae Gran Abs 0.05 (H) 0.00 - 0.04 x10(3)/mcL EKG 12 Lead Result Value Ref Range Ventricular rate 92 BPM Atrial Rate 92 BPM P-R Interval 180 ms QRS Duration 166 ms Q-T Interval 426 ms QTC Calculated (Bezet) 526 ms Calculated P Manns Choice 43 degrees Calculated R Manns Choice -63 degrees Calculated T Manns Choice 62 degrees INTERPRETATION Atrial-sensed ventricular-paced rhythm Underlying normal sinus rhythm Abnormal ECG When compared with ECG of 05-MAR-2021 15:30, Vent. rate has increased BY 19 BPM Confirmed by Devonte Newsome ([id number]) on 03/08/2021 4:10:26 PM ABO/Rh Typing Result Value Ref Range ABORh Type A Neg Antibody screen Result Value Ref Range Ab Screen Interp Negative Expires at 2359 on: 03/11/2021 ABORH Recheck Status Result Value Ref Range ABORH Type Recheck Completed Type and Screen Validity Result Value Ref Range T&S only valid at [facility] Hemogram Result Value Ref Range WBC 14.5 (H) 4.0 - 9.5 x10(3)/mcL RBC 3.29 (L) 4.58 - 5.54 x10(6)/mcL Hemoglobin 9.7 (L) 13.7 - 16.5 gm/dL Hematocrit 29.0 (L) 40.5 - 48.5 % MCV 88.1 82.9 - 93.1 fL MCH 29.5 27.5 - 32.1 pg MCHC 33.4 32.0 - 35.7 gm/dL Platelets 187 145 - 357 x10(3)/mcL RDWSD 43.1 36.0 - 45.0 fL RDWCV 13.2 11.4 - 13.8 % MPV 10.3 7.6 - 12.9 fL nRBC % Auto 0.0 % nRBC Abs Auto 0.000 0.000 - 0.000 x10(3)/mcL Differential, Automated Result Value Ref Range Neutrophils % 86.8 % Neutr Abs (ANC) 12.59 (H) 1 - 6 x10(3)/mcL Lymphocytes % 4.5 % Lymphocytes Abs 0.7 (L) 0.9 - 3.2 x10(3)/mcL Monocytes % 7.5 % Monocyte Abs 1.1 (H) 0.3 - 0.9 x10(3)/mcL Eosinophils % 0.0 % Eosinophils Abs 0.0 0.0 - 0.4 x10(3)/mcL Basophils % 0.1 % Basophils Abs 0.0 0.0 - 0.1 x10(3)/mcL Immature Gran % 1.10 % Mae Gran Abs 0.16 (H) 0.00 - 0.04 x10(3)/mcL Basic Metabolic Panel (non-fasting) Result Value Ref Range Glucose Lvl 112 65 - 199 mg/dL BUN 14 10 - 20 mg/dL Creatinine 0.81 0.80 - 1.50 mg/dL Sodium 132 (L) 135 - 145 mmol/L Potassium 4.1 3.5 - 5.0 mmol/L Chloride 98 98 - 107 mmol/L CO2 26 22 - 31 mmol/L Anion Gap 8 5 - 15 mmol/L Calcium 8.0 (L) 8.5 - 10.5 mg/dL Estimated GFR 89 >=60 mL/min/1.73 m?? Magnesium Result Value Ref Range Magnesium 0.85 0.69 - 1.07 mmol/L Phosphorus Result Value Ref Range Phosphorus 3.1 2.5 - 4.5 mg/dL Hemogram Result Value Ref Range WBC 12.4 (H) 4.0 - 9.5 x10(3)/mcL RBC 2.64 (L) 4.58 - 5.54 x10(6)/mcL Hemoglobin 7.9 (L) 13.7 - 16.5 gm/dL Hematocrit 23.6 (L) 40.5 - 48.5 % MCV 89.4 82.9 - 93.1 fL MCH 29.9 27.5 - 32.1 pg MCHC 33.5 32.0 - 35.7 gm/dL Platelets 187 145 - 357 x10(3)/mcL RDWSD 43.7 36.0 - 45.0 fL RDWCV 13.4 11.4 - 13.8 % MPV 10.4 7.6 - 12.9 fL nRBC % Auto 0.0 % nRBC Abs Auto 0.000 0.000 - 0.000 x10(3)/mcL Differential, Automated Result Value Ref Range Neutrophils % 82.6 % Neutr Abs (ANC) 10.25 (H) 1 - 6 x10(3)/mcL Lymphocytes % 8.4 % Lymphocytes Abs 1.0 0.9 - 3.2 x10(3)/mcL Monocytes % 7.8 % Monocyte Abs 1.0 (H) 0.3 - 0.9 x10(3)/mcL Eosinophils % 0.6 % Eosinophils Abs 0.1 0.0 - 0.4 x10(3)/mcL Basophils % 0.2 % Basophils Abs 0.0 0.0 - 0.1 x10(3)/mcL Immature Gran % 0.40 % Mae Gran Abs 0.05 (H) 0.00 - 0.04 x10(3)/mcL POCT Glucose Result Value Ref Range POC Glucose 177 65 - 199 mg/dL Prepare RBC Result Value Ref Range Dispensed? Yes BLOOD GAS 2 ARTERIAL Result Value Ref Range pH Art 7.42 7.35 - 7.45 pCO2 Art 44 35 - 45 mmHg pO2 Art 137 (H) 85 - 104 mmHg HCO3 Art 28.1 (H) 20.0 - 26.0 mmol/L BE Art 3.6 (H) -3.0 - 3.0 mmol/L Hgb Blood Gas 8.6 (L) 13.7 - 16.5 gm/dL O2HB Art 97.2 (H) 94.0 - 97.0 % COHB Art 1.1 % METHB Art 0.3 <=1.5 % Na Whole Blood 129 (L) 135 - 145 mmol/L K Whole Blood 4.7 3.5 - 5.0 mmol/L ICa Whole Blood 1.05 (L) 1.15 - 1.33 mmol/L CL Whole Blood 100 98 - 107 mmol/L Gluc Whole Bld 132 65 - 199 mg/dL Lactate WB 1.7 0.5 - 2.2 mmol/L Basic Metabolic Panel (non-fasting) Result Value Ref Range Glucose Lvl Not Perf 65 - 199 BUN 17 10 - 20 mg/dL Creatinine 0.81 0.80 - 1.50 mg/dL Sodium 132 (L) 135 - 145 mmol/L Potassium 4.6 3.5 - 5.0 mmol/L Chloride 99 98 - 107 mmol/L CO2 23 22 - 31 mmol/L Anion Gap 10 5 - 15 mmol/L Calcium 7.7 (L) 8.5 - 10.5 mg/dL Estimated GFR 89 >=60 mL/min/1.73 m?? Magnesium Result Value Ref Range Magnesium 0.91 0.69 - 1.07 mmol/L Phosphorus Result Value Ref Range Phosphorus 4.7 (H) 2.5 - 4.5 mg/dL Hemogram Result Value Ref Range WBC 14.2 (H) 4.0 - 9.5 x10(3)/mcL RBC 2.81 (L) 4.58 - 5.54 x10(6)/mcL Hemoglobin 8.4 (L) 13.7 - 16.5 gm/dL Hematocrit 24.5 (L) 40.5 - 48.5 % MCV 87.2 82.9 - 93.1 fL MCH 29.9 27.5 - 32.1 pg MCHC 34.3 32.0 - 35.7 gm/dL Platelets 178 145 - 357 x10(3)/mcL RDWSD 46.4 (H) 36.0 - 45.0 fL RDWCV 14.4 (H) 11.4 - 13.8 % MPV 10.6 7.6 - 12.9 fL nRBC % Auto 0.0 % nRBC Abs Auto 0.000 0.000 - 0.000 x10(3)/mcL Differential, Automated Result Value Ref Range Neutrophils % 92.8 % Neutr Abs (ANC) 13.14 (H) 1 - 6 x10(3)/mcL Lymphocytes % 2.4 % Lymphocytes Abs 0.3 (L) 0.9 - 3.2 x10(3)/mcL Monocytes % 4.0 % Monocyte Abs 0.6 0.3 - 0.9 x10(3)/mcL Eosinophils % 0.1 % Eosinophils Abs 0.0 0.0 - 0.4 x10(3)/mcL Basophils % 0.2 % Basophils Abs 0.0 0.0 - 0.1 x10(3)/mcL Immature Gran % 0.50 % Mae Gran Abs 0.07 (H) 0.00 - 0.04 x10(3)/mcL Basic Metabolic Panel (non-fasting) Result Value Ref Range Glucose Lvl 106 65 - 199 mg/dL BUN 18 10 - 20 mg/dL Creatinine 0.76 (L) 0.80 - 1.50 mg/dL Sodium 133 (L) 135 - 145 mmol/L Potassium 4.5 3.5 - 5.0 mmol/L Chloride 104 98 - 107 mmol/L CO2 22 22 - 31 mmol/L Anion Gap 7 5 - 15 mmol/L Calcium 7.9 (L) 8.5 - 10.5 mg/dL Estimated GFR 92 >=60 mL/min/1.73 m?? Magnesium Result Value Ref Range Magnesium 0.92 0.69 - 1.07 mmol/L Phosphorus Result Value Ref Range Phosphorus 2.4 (L) 2.5 - 4.5 mg/dL Hemogram Result Value Ref Range WBC 11.0 (H) 4.0 - 9.5 x10(3)/mcL RBC 2.56 (L) 4.58 - 5.54 x10(6)/mcL Hemoglobin 7.6 (L) 13.7 - 16.5 gm/dL Hematocrit 22.3 (L) 40.5 - 48.5 % MCV 87.1 82.9 - 93.1 fL MCH 29.7 27.5 - 32.1 pg MCHC 34.1 32.0 - 35.7 gm/dL Platelets 208 145 - 357 x10(3)/mcL RDWSD 47.7 (H) 36.0 - 45.0 fL RDWCV 14.9 (H) 11.4 - 13.8 % MPV 9.8 7.6 - 12.9 fL nRBC % Auto 0.0 % nRBC Abs Auto 0.000 0.000 - 0.000 x10(3)/mcL Differential, Automated Result Value Ref Range Neutrophils % 79.5 % Neutr Abs (ANC) 8.74 (H) 1 - 6 x10(3)/mcL Lymphocytes % 9.8 % Lymphocytes Abs 1.1 0.9 - 3.2 x10(3)/mcL Monocytes % 9.5 % Monocyte Abs 1.0 (H) 0.3 - 0.9 x10(3)/mcL Eosinophils % 0.5 % Eosinophils Abs 0.1 0.0 - 0.4 x10(3)/mcL Basophils % 0.2 % Basophils Abs 0.0 0.0 - 0.1 x10(3)/mcL Immature Gran % 0.50 % Mae Gran Abs 0.05 (H) 0.00 - 0.04 x10(3)/mcL Diagnostics: CXR 03/10/21: 1. Essentially no change in cardiopulmonary status. CXR in PACU 03/09/21 1. Interval placement of a second left-sided chest tube with improved aeration of the left lung. 2. No definite hemothorax or pneumothorax. Assessment: London Neri is a 70 y.o. male who is 2 Days Post-Op re-op??s/p Bronchoscopy, LVATS washout with control of bleeding and evacuation of 1.5L of clotted blood. He is currently in stable condition andrecovering well postoperatively. Plan: Neuro: Tylenol, Tramadol 50 q6 PRN Card: HDS, monitor vitals, ASA 81 mg Pulm: IS/cough/deep breathe/OOB/ambulate. Pull Left posterior chest tube, Continue Left anterior CTto -20 sxn, monitor output. AM CXR FENGI: Regular diet. RBOs Renal/: Goldsmith in place, monitor UOP, Flomax Heme: SQH ID: CAROLINE Endo: CAROLINE PPx: scds; SQH, Ambulate 4x a day. OOB. Dispo: full code, floor status Malorie Mccauley, ORTHO NURSE 03/11/2021 Thoracic Surgery Service Pager [phone] * Lexie Cordova - 03/10/2021 9:57 PM EDT Patient demanding to be walked, insufficient staffing to walk with patient at this time as patient is 2 assist with FWW to manage tubing and ensure patient safety r/t history of hypotension earlier today (see VS). Will reevaluate later this shift. Patient Vitals for the past 24 hrs: BP Temp Temp src Resp SpO2 Weight 03/10/21 2110 127/44 36.8 ??C (98.2 ??F) Oral 16 96 % -- 03/10/21 1520 107/42 36.5 ??C (97.7 ??F) Oral 18 100 % -- 03/10/21 1340 -- -- -- -- 96 % -- 03/10/21 0721 111/43 36.8 ??C (98.2 ??F) Oral 15 97 % -- 03/10/21 0642 -- -- -- -- -- 82 kg (180 lb 12.8 oz) 03/10/21 0303 98/45 36.8 ??C (98.2 ??F) Oral 15 94 % -- 03/09/21 2316 115/41 36.8 ??C (98.2 ??F) Oral 24 94 % -- * Ruma Bone, PT - 03/10/2021 6:02 PM EDT Physical Therapy Evaluation Patient profile: London Neri is a 70 y.o. male admittted 03/05/21 with PMHx significant for recurrent spontaneous pneumothorax, CHF, mitral and aortic mechanical valves (both placed 1998, on coumadin), s/p pacemaker who presents as transfer from [facility] for surgical treatment of recurrent spontaneous left pneumothorax. ?? Reports sudden onset of SOB on Monday which he knew felt like his prior ptx and presented to [facility] for treatment. Hospitalized at [facility] from 03/03 until today when [place] was [place] [facility] [place] of his recurrent [place]. Had L-sided CT placed at [facility], with continuous air-leak since admission. Pt reports this is his fourth ptx, first occurred 2 years ago after multiple broken ribs in curred by slip and fall on ice. The 2nd and 3rd ptx were non-traumatic and one was attributed to lifting heavy item. Since CT placed at [facility] SOB has improved. S/p L VATS partial decortication, blebectomy and talc pleurodesis on 03/06/21 with oozing from left chest tube; re-op?? 1 Day Post-Op??s/p Bronchoscopy, LVATS washout with control of bleeding and evacuation of 1.5L of clotted blood. Pt with syncopal episode while sitting on the commode sustaining abrasion to the forehead. Pacemaker interrogated. Patient with the following active problems: Past [...] BRONCHOSCOPY, DIAGNOSTIC (WRVU 2.78) performed by Kendall Khalil MD at [facility] MAIN OR ??? PRO COLONOSCOPY, REMV LESN, SNARE N/A 01/26/2017 COLONOSCOPY, POLYPECTOMY, REMOVAL LESION BY SNARE (WRVU 4.67) performed by Lena Clark MD at [facility] ENDOSCOPY ??? PRO THORACOSCOPY SURG PART PULM DECORT Left 03/06/2021 @THORACOSCOPY, SURG; W PART. DECORTICATION (WRVU 18.78) performed by Kendall Khalil MD at [facility] MAIN OR ??? PRO THORACOSCOPY SURG W/PLEURODESIS Left 03/06/2021 @THORACOSCOPY, SURG; W PLEURODESIS (WRVU 10.83) performed by Kendall Khalil MD at [facility] MAIN OR ??? PRO THORACOSCOPY W RESECTION-PLICATION EMPHYSEMA LUNG UNILATERAL Left 03/06/2021 @THORACOSCOPY, SURG; W/RESC-PLICATION EMPHYSEMATOUS LUNG, UNILATERAL (WRVU 27) performed by Kendall Khalil MD at [facility] MAIN OR Active Non-Hospital Problems Diagnosis ??? Pacemaker complications, initial encounter ??? Near syncope ??? Pacemaker - dual lead Medtronic ??? Pacemaker battery depletion ??? Chronic bullous emphysema ??? Clostridium difficile colitis ??? Encounter for screening colonoscopy Social History: Patient lives w/ his , home and able to assist. Home Setup: 5-6 STEw/ 2 rails, all needs met on first floor. Pt has a tub shower w/ grab bars and astandard toilet. 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 Precautions/Special Considerations: 2 L CTs to suction, can come off for gait; hypotension with recent syncopal episode; Anemia (HGB 7.6). Pacemaker. Lines: Goldsmith, PIV, naye Mobility and Positioning Recommendations: ?? Pt. to utilize FWW and one assist for ambulation and transfers with nursing. Follow with a chair. ?? Please encourage up to chair for meal times as able. ?? Pt encouraged to ambulate frequently with staff as BP is stable, getting into the bathroom for toileting and walking out in the morel >/= 3 times daily as able. Subjective: ???I want to keep walking. You guys are not getting me any better sitting here. I am not that dizzy.?? Objective: Pt seen for evaluation today. Pain: Denies pain at rest and mild with activity, L side of chest tube site. Vital Signs: At Rest With Activity SpO2 (RA) 98% 99% BP (MAP) 107/42 mmHg pre gait sitting 86/50 mmHg post gt 3 loops, sitting HR 60s bpm 60-70 bpm Mental Status: Alert. Very frustrated about PT not letting him continue walking when hypotensive. Pt threw his mask to the floor and argued why he thought he should continue to walk, despite feeling dizzy and recent syncopal episode with hypotension. Vision: Glasses Skin: 2 CTs L chest with dressing. Abrasion forehead. Scar L upper chest. Musculoskeletal: ROM: BUE AROM grossly wfls. Moves L shoulder slower into ROM and ~10% less due to L CT site discomfort. BLE AROM wfls for gt and transfers. Strength: B shoulders at least 3/5 and good utility clerk. B ankles and knees 4-4+/5. Sensory: denies numbness or paresthesias. Supine to Sit: NE Sit to Supine: NE Transfers: Sit to Stand: cga Stand to Sit: cg Gait: Distance: 450' Device used: FWW with CTs hanging from device along with goldsmith Level of assist: Cg with chair follow. Multiple standing rests due to SOB, requiring mask to be pulled away from his face intermittently. Gait mechanics: reciprocal pattern, slow. Stairs: NE Balance: Sitting Static: good Sitting Dynamic: good Standing Static: fair with FWW Standing Dynamic / Gait: Fair- with FWW Therex: Used IS 5x up to 1500 ml. Strong, non productive splinted cough Education: patient has been educated on Transfers, Assistive device/technique, Breathing exercises,Positioning, Safety , Gait , Activity pacing/Energy conservation, Role of therapy, Balance and Discharge planning and needs reinforcement. understanding. Patient status, treatment, and mobility recommendations discussed with nursing. Pt left sitting in a recliner chair with seat alarm activated. Assessment: London Neri was seen today for physical therapy evaluation. Pt is s/p VATs procedurefor recurrent PTX. Pt is functionally limited and in need of skilled PT 2/2 the following: Acute onchronic medical conditions; Altered mental/behavioral status; hypotension with dizziness; altered skin integrity; decreased endurance; grossly weak, subexpulsive cough; and resultant impairments in gait, transfers, bed mobility and balance. Pt became very frustrated when PT would not permit furtherambulation due to symptomatic Hypotension. Nurse notified. Pt is very motivated and reports walkingup to 5 miles/day. Pt has been in bed for ~ one week and is deconditioned. Feel pt will do well andprogress to dc home with assisting prn. Doubt need for ongoing PT, but TBD. Will wean off the FWW but currently helpful for CTs and some support. The pt would benefit from skilled therapy services while in the hospital to maximize functional abilities. Discharge Recommendations: Based on the current findings, Anticipated Discharge Disposition (PT): (home with assistance and services TBD) when medically ready for hospital discharge. Consult Recommendations: No other consults recommended at this time. Equipment needs: Anticipated Equipment Needs at Discharge (PT): (likely none) Goals: To be achieved by 03/19/21: 1. Pt. to demonstrate knowledge of safety limitations and precautions and will appropriately request assistance for functional activities and to mobilize. 2. Pt. to demonstrate understanding of appropriate exercises. 3. Pt. to perform bed mobility with modified independence. 4. Pt. to perform sit<>stand transfers with modified independence using LRAD. 5. Pt. to ambulate >500 feet with supervision using a LRAD and supervsion, VSS.. 6. Pt. to ambulate up/down 6 step/stairs using two rails with supervision. 7. Family or caregiver to demonstrate understanding of therapeutic interventions to support the care of the patient. 8. Pt will tolerate progression towards upright with stable vital signs. Plan: Therapy Frequency (PT): 3-5 times/wk for therapy including balance training, bed mobility training, gait training, patient/family education, range of motion, stair training, strengthening and transfer training. Patient/family understand and agree with plan as stated above. 2017 PT Evaluation Code Rationale: ?? Diagnosis [...] Unstable/Unpredictable x ?? Clinical decision making of moderate complexity based on pt's functional performance as outlinedin this evaluation. Time IN / OUT: 9183-7265 Total Minutes, Physical Therapy: 25 (Mod EV) RUMA BONE, PT Pager: [phone] Physical Therapy Inpatient Rehabilitation Department * Joseph Vidales, OT - 03/10/2021 1:40 PM EDT Occupational Therapy Evaluation Patient profile: London Neri is a 70 y.o. male who is s/p L VATS partial decortication, blebectomy and talc pleurodesis on 03/06/21 with oozing from left chest tube; re-op?? 1 Day Post-Op s/p Bronchoscopy, LVATS washout with control of bleeding and evacuation of 1.5L of clotted blood. Past Medical History: Diagnosis Date ??? C. [...] BRONCHOSCOPY, DIAGNOSTIC (WRVU 2.78) performed by Kendall Khalil MD at [facility] MAIN OR ??? PRO COLONOSCOPY, REMV LESN, SNARE N/A 01/26/2017 COLONOSCOPY, POLYPECTOMY, REMOVAL LESION BY SNARE (WRVU 4.67) performed by Lena Clark MD at [facility] ENDOSCOPY ??? PRO THORACOSCOPY SURG PART PULM DECORT Left 03/06/2021 @THORACOSCOPY, SURG; W PART. DECORTICATION (WRVU 18.78) performed by Kendall Khalil MD at [facility] MA[facility] OR ??? PRO THORACOSCOPY SURG W/PLEURODESIS Left 03/06/2021 @THORACOSCOPY, SURG; W PLEURODESIS (WRVU 10.83) performed by Kendall Khalil MD at [facility] MA[facility] OR ??? PRO THORACOSCOPY W RESECTION-PLICATION EMPHYSEMA LUNG UNILATERAL Left 03/06/2021 @THORACOSCOPY, SURG; W/RESC-PLICATION EMPHYSEMATOUS LUNG, UNILATERAL (WRVU 27) performed by Kendall Khalil MD at [facility] MAIN OR Social History: Patient lives w/ his , home and able to assist. Home Setup: 5-6 STEw/ rails, all needs met on first floor. Pt has a tub shower w/ grab bars and a standard toilet. DME: toilet riser Baseline ADL/Mobility: Pt reports independence w/ ADLs/IADLs. Precautions/Special Considerations: L CT x 2 to LCWS ok to mobilize w/ out suction, fall, goldsmith Subjective: I need to walk, that's what I want to do. Pt educated on therapeutic benefit Objective: Seen today for OT evaluation. Cognitive Status/Behavior: ?? Behavior / Mood: alert and cooperative ?? Alert and oriented to: person, place, time and situation ?? Follows commands: 100% of the time ?? Attention: WFL ?? Safety awareness: WFL and fully aware of deficits Vision & Perception: ?? WNL/WFL ?? corrective lenses time study technologist Communication: WFL Range of motion, strength, coordination: Hand dominance: right Bilateral UEs are within functional limitations LE limitations: grossly WFL for ADL Sensation: subjectively intact to baseline Activities of Daily Living: Self-feeding: Independent Grooming: Pt deferred grooming tasks at time of evaluation; however, demonstrated standing balance needed for task. Dressing: Pt doffed/donned socks following initial cues for figure four technique, pt educated on carry over to further LB dressing, pt verbalized understanding. Toileting: Pt has goldsmith in place, recommend use of toilet in bathroom>use of commode vs bed thomas w/ 1-2 person assist as needed for line management. Functional Mobility: Sit to stand: CGA w/ use of FWW, verbal cues for hand placement Ambulation: CGA w/ FWW, ~ 300 ft Stand to sit: SBA w/ FWW, verbal cues for hand placement Balance: Sitting balance: good Standing balance:good Vitals: At Rest With Activity SpO2 96% 95-99% Heart Rate 64 60's Pain: tolerable CT sites/L flank Education: patient has been educated on Role of occupational therapy/rehabilitation, Transfers, ADL, Positioning, Safety, Precautions/Protocol, Functional Mobility, Home Management, Balance, Recommend ations and Discharge planning and verbalizes and demonstrates understanding. Patient status, treatment, and mobility recommendations discussed with nursing. Assessment: Pt has been seen for occupational therapy evaluation. London Neri presents with the following performance skill deficits and client factors: increased pain, decreased activity tolerance, decreased flexibility/ROM, decreased strength, decreased sitting/standing balance, deconditioning, precautions/bracing and compromised mobility status. These performance deficits have led to activity limitations and participation restrictions in the following areas of occupation: dressing, bathing, grooming, toileting, transfers/mobility, rest/sleep, home management, leisure and community mobility. Pt AO x 4, agreeable to mobilize; however, deferred performance of standing ADLs/grooming tasks. Pt required initial verbal cues for modified techniques LB dressing and sit<.>stand technique; however, demonstrated the ability to perform functional mobility w/ use of a FWW and CGA. Anticipate pt will progress and d/c home w/ his assistance once he is able to demonstrate increased independence and participation in ADLs. Pt would benefit from further inpatient OT interventions to address performance deficits and maximize participation and independence with occupations of daily living. Equipment needs at discharge: FWW Anticipated Discharge Disposition (OT): home with supervision, home with supervision - assistance 15/05 Other Recommendations: ?? Utilize upright chair position using bed features or transfer to recliner chair as appropriate with 1-2 person assist w/ FWW, ambulate as tolerated, assist level for line management ?? Encourage participation in ADL's by providing set up A on tray table and physical assist only asneeded Other Recommendations: No other consults recommended at this time Goals: To be achieved by 03/24/21.. Pt will perform standing grooming routine with supervision only. Pt will dress self independently using adaptive technique/equipment as needed. Pt will perform functional mobility independently for ADLs, assistive device as needed. Pt will perform all aspects of toilet independently w/ AE/AD as needed. Plan: OT: Therapy Frequency (OT): 2-4 times/wk Planned OT interventions: Role of occupational therapy/rehabilitation, Transfers, Assistive device/technique, Adaptive equipment training, ADL, Positioning, Safety, Precautions/Protocol, Functional Mobility, Activity pacing/Energy conservation, Home Management, Balance, Recommendations and Discharge planning. Total Minutes, Occupational Therapy: 25 (eval ) 2017 OT Evaluation Code Rationale: ?? Diagnosis & Pertinent Co-Morbidities affecting Plan of Care: see PMHx ?? Occupational Profile & Client History: Brief Expanded Extensive x ?? Assessment of Occupational Performance: 1-3 performance deficits 3-5 performance deficits x 5 + performance deficits ?? Clinical Decision Making: Low Moderate High x Clinical decision making of moderate complexity using standardized patient assessment instrument and measurable assessment of functional outcome. Pager: [phone] Joseph Vidales OT 03/10/2021 Occupational Therapy Rehabilitation Department * Jordana Casarez RN - 03/10/2021 12:28 PM EDT OUTCOME EVALUATION NOTE: OUTCOME SUMMARY: Patient progressing towards d/c goals appropriately at this time. Patient A&O x 4, lungs clear,heart rate regular, V paced on tele, no events. Last BM was on 03/10. UO adequate w/ goldsmith in place.Patient has a dressing to L CT site, noted to be clean dry and intact. CT x2 to LCWS. Patients painadequately controlled, see MAR for medications given. Patient denies chest pain, shortness of breath, numbness or tingling. OOB to chair during day. Ambulated around unit w/ PT. Will continue to monitor and help patient reach d/c goals. PLAN MOVING FORWARD: Pain control Mobilize D/c planning INDIVIDUALIZED FALL PREVENTION: Patient is currently a high risk to Fall. Patient educated on bed/chair alarm, demonstrates proper use of call harris and verbalizes understanding of fall preventions implemented. Patient-specific fall risk factors per assessment: [current deficits]: CT x2, goldsmith, IV Sites, Pain, Medications, Hospital Environment. Assistance [level of assistance required for transfers and ambulation]: 2-3x assist w/ FWW Supervision [direct monitoring required during toileting and ADLs]: 1-2x assistance with ADL's Surveillance [continuous indirect monitoring]: tele, Masimo, Purposeful Rounding, Bedside Report Patient-specific fall prevention interventions for sensory deficits provided, if applicable: [X] N/A CPG GOAL OUTCOME EVALUATION: * Ashanti May MD - 03/10/2021 12:08 PM EDT Addendum for clinical documentation purposes: - drop in hemoglobin and symptomatic dizziness due to acute blood loss anemia. [facility] Department of Thoracic Surgery Inpatient Progress Note Patient Name: London Neri Patient : 1950 Patient Patient Location: [address] [place] [address] Attending Surgeon: KENNETH NEWBY DAVID J ID: London Neri is a 70 y.o. male who is s/p L VATS partial decortication, blebectomy and talc pleurodesis on 03/06/21 with oozing from left chest tube; re- op?? 1 Day Post-Op s/p Bronchoscopy, LVATS washout with control of bleeding and evacuation of 1.5L of clotted blood. Subjective: -He reports improvement in his breathing. - dizziness has improved - No nausea/vomiting, chest pain, SOB, pain well controlled, offers no complaints Vitals: Temp: [36.6 ??C (97.9 ??F)-37.1 ??C (98.7 ??F)] Heart Rate: [60-62] Resp: [13-24] BP: (92-117)/(34-45) SpO2: [91 %-100 %] Heart Rate from SpO2: [59 bpm-62 bpm] Wt & BMI By Encounter Date ED to Hosp-Admission (Current) from 03/05/2021 in 3 [facility] Office [place] 08[place]10/2020 [place] [facility] [place] 82 kg (180 lb 12.8 oz) 1 03/10/2021 0642 81.6 kg (180 lb) 1 08/10/2020 1003 BMI 22.43 1 03/05/2021 1513 23.75 1 08/10/2020 1003 Physical Exam: Gen: NAD, pleasant, laying in bed. HEENT: sclerae anicteric Neck: supple, trachea midline Card: RRR, no M/R/G appreciated Pulm: mild diffuse wheezing on left chest, otherwise CTAB, no ronchi/rales appreciated, non-laboredbreathing on RA, Left CTx2 to -20 sxn as below. Incisions C/D/I Abd: soft, NT : goldsmith in place Ext: warm, dry, no edema Neuro: A&Ox3, CN II-XII grossly intact, nonfocal, conversant L. Anterior CT: 210 cc; thin ss output with 1 column intermittent air leak present on quiet respiration. L. Posterior CT: 135 cc; thin ss output no air leak appreciated. I/O: I/O last 3 completed shifts: In: 3310 [P.O.:1460; I.V.:1850] Out: 3804 [Urine:2975; Other:819; Blood:10] Labs: Recent Results (from the past 72 hour(s)) Differential, Automated Result Value Ref Range Neutrophils % 79.2 % Neutr Abs (ANC) 7.71 (H) 1 - 6 x10(3)/mcL Lymphocytes % 9.6 % Lymphocytes Abs 0.9 0.9 - 3.2 x10(3)/mcL Monocytes % 9.1 % Monocyte Abs 0.9 0.3 - 0.9 x10(3)/mcL Eosinophils % 1.3 % Eosinophils Abs 0.1 0.0 - 0.4 x10(3)/mcL Basophils % 0.4 % Basophils Abs 0.0 0.0 - 0.1 x10(3)/mcL Immature Gran % 0.40 % Mae Gran Abs 0.04 0.00 - 0.04 x10(3)/mcL Hemogram Result Value Ref Range WBC 9.8 (H) 4.0 - 9.5 x10(3)/mcL RBC 3.75 (L) 4.58 - 5.54 x10(6)/mcL Hemoglobin 11.2 (L) 13.7 - 16.5 gm/dL Hematocrit 33.6 (L) 40.5 - 48.5 % MCV 89.6 82.9 - 93.1 fL MCH 29.9 27.5 - 32.1 pg MCHC 33.3 32.0 - 35.7 gm/dL Platelets 165 145 - 357 x10(3)/mcL RDWSD 44.4 36.0 - 45.0 fL RDWCV 13.5 11.4 - 13.8 % MPV 10.3 7.6 - 12.9 fL nRBC % Auto 0.0 % nRBC Abs Auto 0.000 0.000 - 0.000 x10(3)/mcL Basic Metabolic Panel (non-fasting) Result Value Ref Range Glucose Lvl 109 65 - 199 mg/dL BUN 12 10 - 20 mg/dL Creatinine 0.78 (L) 0.80 - 1.50 mg/dL Sodium 137 135 - 145 mmol/L Potassium 4.0 3.5 - 5.0 mmol/L Chloride 101 98 - 107 mmol/L CO2 26 22 - 31 mmol/L Anion Gap 10 5 - 15 mmol/L Calcium 8.5 8.5 - 10.5 mg/dL Estimated GFR 91 >=60 mL/min/1.73 m?? Magnesium Result Value Ref Range Magnesium 0.70 0.69 - 1.07 mmol/L Phosphorus Result Value Ref Range Phosphorus 2.7 2.5 - 4.5 mg/dL Hemogram Result Value Ref Range WBC 11.2 (H) 4.0 - 9.5 x10(3)/mcL RBC 3.59 (L) 4.58 - 5.54 x10(6)/mcL Hemoglobin 10.6 (L) 13.7 - 16.5 gm/dL Hematocrit 31.6 (L) 40.5 - 48.5 % MCV 88.0 82.9 - 93.1 fL MCH 29.5 27.5 - 32.1 pg MCHC 33.5 32.0 - 35.7 gm/dL Platelets 170 145 - 357 x10(3)/mcL RDWSD 43.1 36.0 - 45.0 fL RDWCV 13.2 11.4 - 13.8 % MPV 10.6 7.6 - 12.9 fL nRBC % Auto 0.0 % nRBC Abs Auto 0.000 0.000 - 0.000 x10(3)/mcL Differential, Automated Result Value Ref Range Neutrophils % 85.5 % Neutr Abs (ANC) 9.55 (H) 1 - 6 x10(3)/mcL Lymphocytes % 5.6 % Lymphocytes Abs 0.6 (L) 0.9 - 3.2 x10(3)/mcL Monocytes % 8.1 % Monocyte Abs 0.9 0.3 - 0.9 x10(3)/mcL Eosinophils % 0.1 % Eosinophils Abs 0.0 0.0 - 0.4 x10(3)/mcL Basophils % 0.3 % Basophils Abs 0.0 0.0 - 0.1 x10(3)/mcL Immature Gran % 0.40 % Mae Gran Abs 0.05 (H) 0.00 - 0.04 x10(3)/mcL EKG 12 Lead Result Value Ref Range Ventricular rate 92 BPM Atrial Rate 92 BPM P-R Interval 180 ms QRS Duration 166 ms Q-T Interval 426 ms QTC Calculated (Bezet) 526 ms Calculated P Manns [place] 43 degrees Calculated R Manns Choice -63 degrees Calculated T Mann[place] Choice 62 degrees INTERPRETATION Atrial-sensed ventricular-paced rhythm Underlying normal sinus rhythm Abnormal ECG When compared with ECG of 05-MAR-2021 15:30, Vent. rate has increased BY 19 BPM Confirmed by Devonte Newsome ([id number]) on 03/08/2021 4:10:26 PM ABO/Rh Typing Result Value Ref Range ABORh Type A Neg Antibody screen Result Value Ref Range Ab Screen Interp Negative Expires at 2359 on: 03/11/2021 ABORH Recheck Status Result Value Ref Range ABORH Type Recheck Completed Type and Screen Validity Result Value Ref Range T&S only valid at [facility] Hemogram Result Value Ref Range WBC 14.5 (H) 4.0 - 9.5 x10(3)/mcL RBC 3.29 (L) 4.58 - 5.54 x10(6)/mcL Hemoglobin 9.7 (L) 13.7 - 16.5 gm/dL Hematocrit 29.0 (L) 40.5 - 48.5 % MCV 88.1 82.9 - 93.1 fL MCH 29.5 27.5 - 32.1 pg MCHC 33.4 32.0 - 35.7 gm/dL Platelets 187 145 - 357 x10(3)/mcL RDWSD 43.1 36.0 - 45.0 fL RDWCV 13.2 11.4 - 13.8 % MPV 10.3 7.6 - 12.9 fL nRBC % Auto 0.0 % nRBC Abs Auto 0.000 0.000 - 0.000 x10(3)/mcL Differential, Automated Result Value Ref Range Neutrophils % 86.8 % Neutr Abs (ANC) 12.59 (H) 1 - 6 x10(3)/mcL Lymphocytes % 4.5 % Lymphocytes Abs 0.7 (L) 0.9 - 3.2 x10(3)/mcL Monocytes % 7.5 % Monocyte Abs 1.1 (H) 0.3 - 0.9 x10(3)/mcL Eosinophils % 0.0 % Eosinophils Abs 0.0 0.0 - 0.4 x10(3)/mcL Basophils % 0.1 % Basophils Abs 0.0 0.0 - 0.1 x10(3)/mcL Immature Gran % 1.10 % Mae Gran Abs 0.16 (H) 0.00 - 0.04 x10(3)/mcL Basic Metabolic Panel (non-fasting) Result Value Ref Range Glucose Lvl 112 65 - 199 mg/dL BUN 14 10 - 20 mg/dL Creatinine 0.81 0.80 - 1.50 mg/dL Sodium 132 (L) 135 - 145 mmol/L Potassium 4.1 3.5 - 5.0 mmol/L Chloride 98 98 - 107 mmol/L CO2 26 22 - 31 mmol/L Anion Gap 8 5 - 15 mmol/L Calcium 8.0 (L) 8.5 - 10.5 mg/dL Estimated GFR 89 >=60 mL/min/1.73 m?? Magnesium Result Value Ref Range Magnesium 0.85 0.69 - 1.07 mmol/L Phosphorus Result Value Ref Range Phosphorus 3.1 2.5 - 4.5 mg/dL Hemogram Result Value Ref Range WBC 12.4 (H) 4.0 - 9.5 x10(3)/mcL RBC 2.64 (L) 4.58 - 5.54 x10(6)/mcL Hemoglobin 7.9 (L) 13.7 - 16.5 gm/dL Hematocrit 23.6 (L) 40.5 - 48.5 % MCV 89.4 82.9 - 93.1 fL MCH 29.9 27.5 - 32.1 pg MCHC 33.5 32.0 - 35.7 gm/dL Platelets 187 145 - 357 x10(3)/mcL RDWSD 43.7 36.0 - 45.0 fL RDWCV 13.4 11.4 - 13.8 % MPV 10.4 7.6 - 12.9 fL nRBC % Auto 0.0 % nRBC Abs Auto 0.000 0.000 - 0.000 x10(3)/mcL Differential, Automated Result Value Ref Range Neutrophils % 82.6 % Neutr Abs (ANC) 10.25 (H) 1 - 6 x10(3)/mcL Lymphocytes % 8.4 % Lymphocytes Abs 1.0 0.9 - 3.2 x10(3)/mcL Monocytes % 7.8 % Monocyte Abs 1.0 (H) 0.3 - 0.9 x10(3)/mcL Eosinophils % 0.6 % Eosinophils Abs 0.1 0.0 - 0.4 x10(3)/mcL Basophils % 0.2 % Basophils Abs 0.0 0.0 - 0.1 x10(3)/mcL Immature Gran % 0.40 % Mae Gran Abs 0.05 (H) 0.00 - 0.04 x10(3)/mcL POCT Glucose Result Value Ref Range POC Glucose 177 65 - 199 mg/dL Prepare RBC Result Value Ref Range Dispensed? Yes BLOOD GAS 2 ARTERIAL Result Value Ref Range pH Art 7.42 7.35 - 7.45 pCO2 Art 44 35 - 45 mmHg pO2 Art 137 (H) 85 - 104 mmHg HCO3 Art 28.1 (H) 20.0 - 26.0 mmol/L BE Art 3.6 (H) -3.0 - 3.0 mmol/L Hgb Blood Gas 8.6 (L) 13.7 - 16.5 gm/dL O2HB Art 97.2 (H) 94.0 - 97.0 % COHB Art 1.1 % METHB Art 0.3 <=1.5 % Na Whole Blood 129 (L) 135 - 145 mmol/L K Whole Blood 4.7 3.5 - 5.0 mmol/L ICa Whole Blood 1.05 (L) 1.15 - 1.33 mmol/L CL Whole Blood 100 98 - 107 mmol/L Gluc Whole Bld 132 65 - 199 mg/dL Lactate WB 1.7 0.5 - 2.2 mmol/L Basic Metabolic Panel (non-fasting) Result Value Ref Range Glucose Lvl Not Perf 65 - 199 BUN 17 10 - 20 mg/dL Creatinine 0.81 0.80 - 1.50 mg/dL Sodium 132 (L) 135 - 145 mmol/L Potassium 4.6 3.5 - 5.0 mmol/L Chloride 99 98 - 107 mmol/L CO2 23 22 - 31 mmol/L Anion Gap 10 5 - 15 mmol/L Calcium 7.7 (L) 8.5 - 10.5 mg/dL Estimated GFR 89 >=60 mL/min/1.73 m?? Magnesium Result Value Ref Range Magnesium 0.91 0.69 - 1.07 mmol/L Phosphorus Result Value Ref Range Phosphorus 4.7 (H) 2.5 - 4.5 mg/dL Hemogram Result Value Ref Range WBC 14.2 (H) 4.0 - 9.5 x10(3)/mcL RBC 2.81 (L) 4.58 - 5.54 x10(6)/mcL Hemoglobin 8.4 (L) 13.7 - 16.5 gm/dL Hematocrit 24.5 (L) 40.5 - 48.5 % MCV 87.2 82.9 - 93.1 fL MCH 29.9 27.5 - 32.1 pg MCHC 34.3 32.0 - 35.7 gm/dL Platelets 178 145 - 357 x10(3)/mcL RDWSD 46.4 (H) 36.0 - 45.0 fL RDWCV 14.4 (H) 11.4 - 13.8 % MPV 10.6 7.6 - 12.9 fL nRBC % Auto 0.0 % nRBC Abs Auto 0.000 0.000 - 0.000 x10(3)/mcL Differential, Automated Result Value Ref Range Neutrophils % 92.8 % Neutr Abs (ANC) 13.14 (H) 1 - 6 x10(3)/mcL Lymphocytes % 2.4 % Lymphocytes Abs 0.3 (L) 0.9 - 3.2 x10(3)/mcL Monocytes % 4.0 % Monocyte Abs 0.6 0.3 - 0.9 x10(3)/mcL Eosinophils % 0.1 % Eosinophils Abs 0.0 0.0 - 0.4 x10(3)/mcL Basophils % 0.2 % Basophils Abs 0.0 0.0 - 0.1 x10(3)/mcL Immature Gran % 0.50 % Mae Gran Abs 0.07 (H) 0.00 - 0.04 x10(3)/mcL Basic Metabolic Panel (non-fasting) Result Value Ref Range Glucose Lvl 106 65 - 199 mg/dL BUN 18 10 - 20 mg/dL Creatinine 0.76 (L) 0.80 - 1.50 mg/dL Sodium 133 (L) 135 - 145 mmol/L Potassium 4.5 3.5 - 5.0 mmol/L Chloride 104 98 - 107 mmol/L CO2 22 22 - 31 mmol/L Anion Gap 7 5 - 15 mmol/L Calcium 7.9 (L) 8.5 - 10.5 mg/dL Estimated GFR 92 >=60 mL/min/1.73 m?? Magnesium Result Value Ref Range Magnesium 0.92 0.69 - 1.07 mmol/L Phosphorus Result Value Ref Range Phosphorus 2.4 (L) 2.5 - 4.5 mg/dL Hemogram Result Value Ref Range WBC 11.0 (H) 4.0 - 9.5 x10(3)/mcL RBC 2.56 (L) 4.58 - 5.54 x10(6)/mcL Hemoglobin 7.6 (L) 13.7 - 16.5 gm/dL Hematocrit 22.3 (L) 40.5 - 48.5 % MCV 87.1 82.9 - 93.1 fL MCH 29.7 27.5 - 32.1 pg MCHC 34.1 32.0 - 35.7 gm/dL Platelets 208 145 - 357 x10(3)/mcL RDWSD 47.7 (H) 36.0 - 45.0 fL RDWCV 14.9 (H) 11.4 - 13.8 % MPV 9.8 7.6 - 12.9 fL nRBC % Auto 0.0 % nRBC Abs Auto 0.000 0.000 - 0.000 x10(3)/mcL Differential, Automated Result Value Ref Range Neutrophils % 79.5 % Neutr Abs (ANC) 8.74 (H) 1 - 6 x10(3)/mcL Lymphocytes % 9.8 % Lymphocytes Abs 1.1 0.9 - 3.2 x10(3)/mcL Monocytes % 9.5 % Monocyte Abs 1.0 (H) 0.3 - 0.9 x10(3)/mcL Eosinophils % 0.5 % Eosinophils Abs 0.1 0.0 - 0.4 x10(3)/mcL Basophils % 0.2 % Basophils Abs 0.0 0.0 - 0.1 x10(3)/mcL Immature Gran % 0.50 % Mae Gran Abs 0.05 (H) 0.00 - 0.04 x10(3)/mcL Diagnostics: CXR in PACU 03/09/21 IMPRESSION 1. Interval placement of a second left-sided chest tube with improved aeration of the left lung. 2. No definite hemothorax or pneumothorax. Assessment: London Neri is a 70 y.o. male who is 1 Day Post-Op re-op??s/p Bronchoscopy, LVATS washout with control of bleeding and evacuation of 1.5L of clotted blood. He is currently in stable condition and recovering well postoperatively. Plan: Neuro: tylenol, Tramadol 50 q6 PRN Card: HDS, monitor vitals,ASA 81 mg Pulm: IS/cough/deep breathe/OOB/ambulate. Continue Left CTx2 to -20 sxn, monitor output. AM CXR FENGI: Regular diet. RBOs Renal/: Goldsmith in place, monitor UOP, Flomax Heme: SQH ID: CAROLINE Endo: CAROLINE PPx: scds; SQH, Ambulate 4x a day. OOB. Dispo: full code, floor status Ashanti May MD 03/10/2021 Thoracic Surgery Service Pager [phone] * Myrna Ludwig APRN - 03/10/2021 8:35 AM EDT Cardiac Device Remote Monitoring Report Summary [employer] 03/10/21 Device: Pacemaker Model: Maral Battery: 3.10 v, estimated longevity ~10.5 years Pacing percentage: AP 0.2%, ACCOUNTANT MACHINE PROCESSING 99.9% Current EGM: ,AR/ACCOUNTANT MACHINE PROCESSING. Atrial rate 240 bpm, ventricular rate 60 bpm. Events: AT/AF >=6 hr for 1 day. Patient activity less than 1 hr/day for 1 week Atrial high rate events: 1 AT/AF since 03/09/21 @ 10:55am, episode in progress. AT/AF [place] 10.8%. Rate histogram: Time in AT/AF = 8 hours 03/06/-03/09. Ventricular high rate events: 0 Impression Atrial flutter with controlled rates 60 bpm, paroxysmal starting 03/06-03/09, and in progress since 03/09/21. Noted patient is inpatient on 3W following left VATS partial decortication, blecectomy, and talc pleurodesis on 03/06/21. 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 Follow Up As per schedule - in-clinic and remote Myrna Ludwig APRN Pager [phone] * Ross Mohan RN - 03/09/2021 7:42 PM EDT Problem: Patient Care Overview Goal: Plan of Care Review Outcome: Ongoing (Interventions Implemented as Appropriate) OUTCOME EVALUATION NOTE: OUTCOME SUMMARY: Pt continue to be aox4 and on RA. Hypotensive, otherwise VSS. Team aware of BP's, bolus and continuous fluids ordered. Pt reports minimal pain from left chest, incisional pain. OOB to the chair with 2-3 assists. Pt reports dizziness/light headiness when standing. Chest tubes in place x2, anteriortube continue to have air leak, team is aware. Goldsmith in place draining adequate amounts of yellow urine. Pt tolerating regular diet and encouraged to increase PO fluids. NVS and neuro checks WNL. Resting between care will continue to monitor. PLAN MOVING FORWARD: Pain control, Chest tubes x2, ambulate, PT/OT, dc planning INDIVIDUALIZED FALL PREVENTION INTERVENTIONS: Patient-specific fall risk factors per assessment: [current deficits]: Generalized weakness, [id number] of OR, pain, dizziness, medications, hospitalization and double room. Assistance [level of assistance required for transfers and ambulation]: OOB with walker and 2/3 assist Supervision [direct monitoring required during toileting and ADLs]: 2-assist Surveillance [continuous indirect monitoring]: Masimo, telemetry, hourly rounding, safety checks and nurse knowledge sign-off. Patient-specific fall prevention interventions for sensory deficits provided, if applicable: No * Martha Ordoñez LPN - 03/09/2021 4:25 PM EDT Patient was scheduled for Heparin and ASA along with other mediations. Pt was worried in regards totaking the Heparin and ASA and asked to clarify cause Pt was informed to hold. Page out to [id number] to clarify, Call returned to clarify the ok to give the Heparin and ASA. Given per MD order. * Pardeep Lima PA - 03/09/2021 2:48 PM EDT [facility] Department of Thoracic Surgery Inpatient Post Op Check Note Patient Name: London Neri Patient : 1950 Patient Patient Location: [address] [place] [address] Attending Surgeon: KENNETH NEWBY DAVID J ID: London Neri is a 70 y.o. male who is s/p L VATS partial decortication, blebectomy and talc pleurodesis on 03/06/21 with oozing from left chest tube; re- op?? Day of Surgery s/p Bronchoscopy, LVATS washout with control of bleeding and evacuation of 1.5L of clotted blood. Subjective: He reports improvement in his breathing as compared to before OR. No nausea/vomiting, chest pain, SOB, pain well controlled, offers no complaints Vitals: Temp: [36.4 ??C (97.5 ??F)-37.3 ??C (99.1 ??F)] Heart Rate: [60-84] Resp: [13-28] BP: (90-129)/(35-69) SpO2: [90 %-100 %] Heart Rate from SpO2: [62 bpm-100 bpm] Wt & BMI By Encounter Date ED to Hosp-Admission (Current) from 03/05/2021 in 3 [facility] Office Visit [place] 08/10/2020 [place] [facility] 79.7 kg (175 lb 11.2 oz) 1 03/07/2021 0711 81.6 kg (180 lb) 1 08/10/2020 1003 BMI 22.43 1 03/05/2021 1513 23.75 1 08/10/2020 1003 Physical Exam: Gen: NAD, pleasant, laying in bed. HEENT: sclerae anicteric Neck: supple, trachea midline Card: RRR, no M/R/G appreciated Pulm: mild diffuse wheezing on left chest, otherwise CTAB, no ronchi/rales appreciated, non-laboredbreathing on RA, Left CTx2 to -20 sxn as below. Incisions C/D/I Abd: soft, NT : goldsmith in place Ext: warm, dry, no edema Neuro: A&Ox3, CN II-XII grossly intact, nonfocal, conversant L. Anterior CT: 120 cc since OR; thin ss output with 1 column intermittent air leak present on quiet respiration. L. Posterior CT: 10 cc since OR; thin ss output no air leak appreciated. I/O: I/O last 3 completed shifts: In: 1420 [P.O.:1420] Out: 4155 [Urine:2815; Other:1340] Labs: Recent Results (from the past 72 hour(s)) Differential, Automated Result Value Ref Range Neutrophils % 79.2 % Neutr Abs (ANC) 7.71 (H) 1 - 6 x10(3)/mcL Lymphocytes % 9.6 % Lymphocytes Abs 0.9 0.9 - 3.2 x10(3)/mcL Monocytes % 9.1 % Monocyte Abs 0.9 0.3 - 0.9 x10(3)/mcL Eosinophils % 1.3 % Eosinophils Abs 0.1 0.0 - 0.4 x10(3)/mcL Basophils % 0.4 % Basophils Abs 0.0 0.0 - 0.1 x10(3)/mcL Immature Gran % 0.40 % Mae Gran Abs 0.04 0.00 - 0.04 x10(3)/mcL Hemogram Result Value Ref Range WBC 9.8 (H) 4.0 - 9.5 x10(3)/mcL RBC 3.75 (L) 4.58 - 5.54 x10(6)/mcL Hemoglobin 11.2 (L) 13.7 - 16.5 gm/dL Hematocrit 33.6 (L) 40.5 - 48.5 % MCV 89.6 82.9 - 93.1 fL MCH 29.9 27.5 - 32.1 pg MCHC 33.3 32.0 - 35.7 gm/dL Platelets 165 145 - 357 x10(3)/mcL RDWSD 44.4 36.0 - 45.0 fL RDWCV 13.5 11.4 - 13.8 % MPV 10.3 7.6 - 12.9 fL nRBC % Auto 0.0 % nRBC Abs Auto 0.000 0.000 - 0.000 x10(3)/mcL Basic Metabolic Panel (non-fasting) Result Value Ref Range Glucose Lvl 109 65 - 199 mg/dL BUN 12 10 - 20 mg/dL Creatinine 0.78 (L) 0.80 - 1.50 mg/dL Sodium 137 135 - 145 mmol/L Potassium 4.0 3.5 - 5.0 mmol/L Chloride 101 98 - 107 mmol/L CO2 26 22 - 31 mmol/L Anion Gap 10 5 - 15 mmol/L Calcium 8.5 8.5 - 10.5 mg/dL Estimated GFR 91 >=60 mL/min/1.73 m?? Magnesium Result Value Ref Range Magnesium 0.70 0.69 - 1.07 mmol/L Phosphorus Result Value Ref Range Phosphorus 2.7 2.5 - 4.5 mg/dL Hemogram Result Value Ref Range WBC 11.2 (H) 4.0 - 9.5 x10(3)/mcL RBC 3.59 (L) 4.58 - 5.54 x10(6)/mcL Hemoglobin 10.6 (L) 13.7 - 16.5 gm/dL Hematocrit 31.6 (L) 40.5 - 48.5 % MCV 88.0 82.9 - 93.1 fL MCH 29.5 27.5 - 32.1 pg MCHC 33.5 32.0 - 35.7 gm/dL Platelets 170 145 - 357 x10(3)/mcL RDWSD 43.1 36.0 - 45.0 fL RDWCV 13.2 11.4 - 13.8 % MPV 10.6 7.6 - 12.9 fL nRBC % Auto 0.0 % nRBC Abs Auto 0.000 0.000 - 0.000 x10(3)/mcL Differential, Automated Result Value Ref Range Neutrophils % 85.5 % Neutr Abs (ANC) 9.55 (H) 1 - 6 x10(3)/mcL Lymphocytes % 5.6 % Lymphocytes Abs 0.6 (L) 0.9 - 3.2 x10(3)/mcL Monocytes % 8.1 % Monocyte Abs 0.9 0.3 - 0.9 x10(3)/mcL Eosinophils % 0.1 % Eosinophils Abs 0.0 0.0 - 0.4 x10(3)/mcL Basophils % 0.3 % Basophils Abs 0.0 0.0 - 0.1 x10(3)/mcL Immature Gran % 0.40 % Mae Gran Abs 0.05 (H) 0.00 - 0.04 x10(3)/mcL EKG 12 Lead Result Value Ref Range Ventricular rate 92 BPM Atrial Rate 92 BPM P-R Interval 180 ms QRS Duration 166 ms Q-T Interval 426 ms QTC Calculated (Bezet) 526 ms Calculated P Manns Choice 43 degrees Calculated R Manns Choice -63 degrees Calculated T Manns Choice 62 degrees INTERPRETATION Atrial-sensed ventricular-paced rhythm Underlying normal sinus rhythm Abnormal ECG When compared with ECG of 05-MAR-2021 15:30, Vent. rate has increased BY 19 BPM Confirmed by Devonte Newsome ([id number]) on 03/08/2021 4:10:26 PM ABO/Rh Typing Result Value Ref Range ABORh Type A Neg Antibody screen Result Value Ref Range Ab Screen Interp Negative Expires at [id number] on: 03/11/2021 ABORH Recheck Status Result Value Ref Range ABORH Type Recheck Completed Type and Screen Validity Result Value Ref Range T&S only valid at [facility] Hemogram Result Value Ref Range WBC 14.5 (H) 4.0 - 9.5 x10(3)/mcL RBC 3.29 (L) 4.58 - 5.54 x10(6)/mcL Hemoglobin 9.7 (L) 13.7 - 16.5 gm/dL Hematocrit 29.0 (L) 40.5 - 48.5 % MCV 88.1 82.9 - 93.1 fL MCH 29.5 27.5 - 32.1 pg MCHC 33.4 32.0 - 35.7 gm/dL Platelets 187 145 - 357 x10(3)/mcL RDWSD 43.1 36.0 - 45.0 fL RDWCV 13.2 11.4 - 13.8 % MPV 10.3 7.6 - 12.9 fL nRBC % Auto 0.0 % nRBC Abs Auto 0.000 0.000 - 0.000 x10(3)/mcL Differential, Automated Result Value Ref Range Neutrophils % 86.8 % Neutr Abs (ANC) 12.59 (H) 1 - 6 x10(3)/mcL Lymphocytes % 4.5 % Lymphocytes Abs 0.7 (L) 0.9 - 3.2 x10(3)/mcL Monocytes % 7.5 % Monocyte Abs 1.1 (H) 0.3 - 0.9 x10(3)/mcL Eosinophils % 0.0 % Eosinophils Abs 0.0 0.0 - 0.4 x10(3)/mcL Basophils % 0.1 % Basophils Abs 0.0 0.0 - 0.1 x10(3)/mcL Immature Gran % 1.10 % Mae Gran Abs 0.16 (H) 0.00 - 0.04 x10(3)/mcL Basic Metabolic Panel (non-fasting) Result Value Ref Range Glucose Lvl 112 65 - 199 mg/dL BUN 14 10 - 20 mg/dL Creatinine 0.81 0.80 - 1.50 mg/dL Sodium 132 (L) 135 - 145 mmol/L Potassium 4.1 3.5 - 5.0 mmol/L Chloride 98 98 - 107 mmol/L CO2 26 22 - 31 mmol/L Anion Gap 8 5 - 15 mmol/L Calcium 8.0 (L) 8.5 - 10.5 mg/dL Estimated GFR 89 >=60 mL/min/1.73 m?? Magnesium Result Value Ref Range Magnesium 0.85 0.69 - 1.07 mmol/L Phosphorus Result Value Ref Range Phosphorus 3.1 2.5 - 4.5 mg/dL Hemogram Result Value Ref Range WBC 12.4 (H) 4.0 - 9.5 x10(3)/mcL RBC 2.64 (L) 4.58 - 5.54 x10(6)/mcL Hemoglobin 7.9 (L) 13.7 - 16.5 gm/dL Hematocrit 23.6 (L) 40.5 - 48.5 % MCV 89.4 82.9 - 93.1 fL MCH 29.9 27.5 - 32.1 pg MCHC 33.5 32.0 - 35.7 gm/dL Platelets 187 145 - 357 x10(3)/mcL RDWSD 43.7 36.0 - 45.0 fL RDWCV 13.4 11.4 - 13.8 % MPV 10.4 7.6 - 12.9 fL nRBC % Auto 0.0 % nRBC Abs Auto 0.000 0.000 - 0.000 x10(3)/mcL Differential, Automated Result Value Ref Range Neutrophils % 82.6 % Neutr Abs (ANC) 10.25 (H) 1 - 6 x10(3)/mcL Lymphocytes % 8.4 % Lymphocytes Abs 1.0 0.9 - 3.2 x10(3)/mcL Monocytes % 7.8 % Monocyte Abs 1.0 (H) 0.3 - 0.9 x10(3)/mcL Eosinophils % 0.6 % Eosinophils Abs 0.1 0.0 - 0.4 x10(3)/mcL Basophils % 0.2 % Basophils Abs 0.0 0.0 - 0.1 x10(3)/mcL Immature Gran % 0.40 % Mae Gran Abs 0.05 (H) 0.00 - 0.04 x10(3)/mcL POCT Glucose Result Value Ref Range POC Glucose 177 65 - 199 mg/dL Prepare RBC Result Value Ref Range Dispensed? Yes BLOOD GAS 2 ARTERIAL Result Value Ref Range pH Art 7.42 7.35 - 7.45 pCO2 Art 44 35 - 45 mmHg pO2 Art 137 (H) 85 - 104 mmHg HCO3 Art 28.1 (H) 20.0 - 26.0 mmol/L BE Art 3.6 (H) -3.0 - 3.0 mmol/L Hgb Blood Gas 8.6 (L) 13.7 - 16.5 gm/dL O2HB Art 97.2 (H) 94.0 - 97.0 % COHB Art 1.1 % METHB Art 0.3 <=1.5 % Na Whole Blood 129 (L) 135 - 145 mmol/L K Whole Blood 4.7 3.5 - 5.0 mmol/L ICa Whole Blood 1.05 (L) 1.15 - 1.33 mmol/L CL Whole Blood 100 98 - 107 mmol/L Gluc Whole Bld 132 65 - 199 mg/dL Lactate WB 1.7 0.5 - 2.2 mmol/L Basic Metabolic Panel (non-fasting) Result Value Ref Range Glucose Lvl Not Perf 65 - 199 BUN 17 10 - 20 mg/dL Creatinine 0.81 0.80 - 1.50 mg/dL Sodium 132 (L) 135 - 145 mmol/L Potassium 4.6 3.5 - 5.0 mmol/L Chloride 99 98 - 107 mmol/L CO2 23 22 - 31 mmol/L Anion Gap 10 5 - 15 mmol/L Calcium 7.7 (L) 8.5 - 10.5 mg/dL Estimated GFR 89 >=60 mL/min/1.73 m?? Magnesium Result Value Ref Range Magnesium 0.91 0.69 - 1.07 mmol/L Phosphorus Result Value Ref Range Phosphorus 4.7 (H) 2.5 - 4.5 mg/dL Hemogram Result Value Ref Range WBC 14.2 (H) 4.0 - 9.5 x10(3)/mcL RBC 2.81 (L) 4.58 - 5.54 x10(6)/mcL Hemoglobin 8.4 (L) 13.7 - 16.5 gm/dL Hematocrit 24.5 (L) 40.5 - 48.5 % MCV 87.2 82.9 - 93.1 fL MCH 29.9 27.5 - 32.1 pg MCHC 34.3 32.0 - 35.7 gm/dL Platelets 178 145 - 357 x10(3)/mcL RDWSD 46.4 (H) 36.0 - 45.0 fL RDWCV 14.4 (H) 11.4 - 13.8 % MPV 10.6 7.6 - 12.9 fL nRBC % Auto 0.0 % nRBC Abs Auto 0.000 0.000 - 0.000 x10(3)/mcL Differential, Automated Result Value Ref Range Neutrophils % 92.8 % Neutr Abs (ANC) 13.14 (H) 1 - 6 x10(3)/mcL Lymphocytes % 2.4 % Lymphocytes Abs 0.3 (L) 0.9 - 3.2 x10(3)/mcL Monocytes % 4.0 % Monocyte Abs 0.6 0.3 - 0.9 x10(3)/mcL Eosinophils % 0.1 % Eosinophils Abs 0.0 0.0 - 0.4 x10(3)/mcL Basophils % 0.2 % Basophils Abs 0.0 0.0 - 0.1 x10(3)/mcL Immature Gran % 0.50 % Mae Gran Abs 0.07 (H) 0.00 - 0.04 x10(3)/mcL Diagnostics: CXR in PACU 03/09/21 IMPRESSION 1. Interval placement of a second left-sided chest tube with improved aeration of the left lung. 2. No definite hemothorax or pneumothorax. Assessment: Lnodon Neri is a 70 y.o. male who is Day of Surgery re-op??s/p Bronchoscopy, LVATS washout with control of bleeding and evacuation of 1.5L of clotted blood. He is currently in stable condition andrecovering well postoperatively. Plan: Neuro: tylenol, Tramadol 50 q6 PRN Card: HDS, monitor vitals,ASA 81 mg Pulm: IS/cough/deep breathe/OOB/ambulate. Continue Left CTx2 to -20 sxn, monitor output. AM CXR FENGI: Regular diet. RBOs Renal/: Goldsmith in place, monitor UOP, Flomax Heme: SQH ID: CAROLINE Endo: CAROLINE PPx: scds; SQH, Ambulate 4x a day. OOB. Dispo: full code, floor status [place] Torres 03/09/2021 Thoracic Surgery Service Pager [phone] * Ross Mohan RN - 03/09/2021 2:20 PM EDT Pt has arrived back on the unit from PACU/OR. Pt is aox4 with stable VS on RA. Pt reports feeling unsure if he is having any pain, nausea or dizziness at this time. Pt does report no SOB or difficulty breathing. 2 chest tubes with LCS at - [address], anterior appears to have an air leak with fluctuation. Goldsmith in place. Pt encouraged to rest. Will continue to monitor. * Missy Anne RN - 03/09/2021 1:59 PM EDT 1330- Called the lab for results & they reported that mary had just rec'd specimens @ 1320 - wassent @ 1200. Pt ramya ice chips. * Missy Anne RN - 03/09/2021 1:23 PM EDT 1150- Labs sent. * Anh Chen RN - 03/09/2021 12:23 PM EDT 1145 RN break coverage. London asking where his, reorieinted and reassured. London denies pain and fell back to sleep. * Ashanti May MD - 03/09/2021 8:16 AM EDT Images from the original note were not included. [facility] Department of Thoracic Surgery Inpatient Progress Note [facility] [address] [facility] [address] [place], [place] [address] FAX: Patient Name: London Neri Patient : 1950 Patient Patient Location: [address] [place] [address] Thoracic surgery attending: Dr. Khalil HPI: London Neri is a 70 y.o. male with PMHx significant for recurrent spontaneous pneumothorax, chronic CHF, mitral and aortic mechanical valves (both placed 1998, on coumadin), s/p pacemaker who presents as transfer from [facility] for surgical treatment of recurrent spontaneous left pneumothorax. Reports sudden onset of SOB on Monday which he knew felt like his prior ptx and presented to [facility] for treatment. Hospitalized at [facility] from 03/03 until today when [place] was [place] [facility] [place] of his [place]. Had L-sided CT placed at [facility], with continuous air-leak since admission. Pt reports this is his fourth ptx, first occurred 2 years ago after multiple broken ribs in curred by slip and fall on ice. The 2nd and 3rd ptx were non-traumatic and one was attributed to lifting heavy item. Since CT placed at [facility] SOB has improved. Coumadin last taken morning of 03/04/21. Normal coumadin dose 10mg qd. He last ate at noon today. On assessment in the ED: He is HDS, on RA and in no distress. He endorses no complaints. Now Day of Surgery s/p L VATS partial decortication, blebectomy and talc pleurodesis, (received 1 unit FFP just prior to procedure) 24 Hour Events / Subjective: - dizziness/syncopal episode yesterday, fall from commode, hitting head, head CT negative - continued to be dizzy intermittently after fall - hbg trending with slow down trend 7.9 this morning from 9.7 - CT output noted to be more Sang with intermittent clots - 680cc out in 24 hours - therapeutic Lovenox held since 03/08 PM Vitals: Temp: [36.4 ??C (97.5 ??F)-37.3 ??C (99.1 ??F)] Heart Rate: [84] Resp: [16-22] BP: (80-125)/(46-69) SpO2: [90 %-95 %] Heart Rate from SpO2: [84 bpm-100 bpm] Wt & BMI By Encounter Date ED to Hosp-Admission (Current) from 03/05/2021 in 3 [facility] Office Visit [place] 08/10/2020 [place] [facility] 79.7 kg (175 lb 11.2 oz) 1 03/07/2021 0711 81.6 kg (180 lb) 1 08/10/2020 1003 BMI 22.43 1 03/05/2021 1513 23.75 1 08/10/2020 1003 Physical Exam: Gen: NAD, pleasant, lying in bed HEENT: normocephalic, small 3cm area of swelling with overlying skin tear to center of forehead, EOMI, sclerae anicteric Neck: supple, trachea midline Card: RRR, mechanical valve click noted Pulm: non-labored breathing on RA, CTAB, no wheeze, stridor or accessory muscle use, decreased breath sound to L base, Left CT to -20 suction with SS output in atrium with darker clot in tubing and no air leak appreciated Ext: warm, dry, no edema Neuro: A&Ox3, nonfocal, conversant LCT (-20): 680/190cc o/n I/O: I/O last 3 completed shifts: In: 1420 [P.O.:1420] Out: 4155 [Urine:2815; Other:1340] Labs: Recent Results (from the past 72 hour(s)) Prothrombin Time Result Value Ref Range PT 15.9 (H) 9.4 - 12.5 sec INR 1.4 APTT Result Value Ref Range PTT 32 25.0 - 37.0 sec Differential, Automated Result Value Ref Range Neutrophils % 79.2 % Neutr Abs (ANC) 7.71 (H) 1 - 6 x10(3)/mcL Lymphocytes % 9.6 % Lymphocytes Abs 0.9 0.9 - 3.2 x10(3)/mcL Monocytes % 9.1 % Monocyte Abs 0.9 0.3 - 0.9 x10(3)/mcL Eosinophils % 1.3 % Eosinophils Abs 0.1 0.0 - 0.4 x10(3)/mcL Basophils % 0.4 % Basophils Abs 0.0 0.0 - 0.1 x10(3)/mcL Immature Gran % 0.40 % Mae Gran Abs 0.04 0.00 - 0.04 x10(3)/mcL Hemogram Result Value Ref Range WBC 9.8 (H) 4.0 - 9.5 x10(3)/mcL RBC 3.75 (L) 4.58 - 5.54 x10(6)/mcL Hemoglobin 11.2 (L) 13.7 - 16.5 gm/dL Hematocrit 33.6 (L) 40.5 - 48.5 % MCV 89.6 82.9 - 93.1 fL MCH 29.9 27.5 - 32.1 pg MCHC 33.3 32.0 - 35.7 gm/dL Platelets 165 145 - 357 x10(3)/mcL RDWSD 44.4 36.0 - 45.0 fL RDWCV 13.5 11.4 - 13.8 % MPV 10.3 7.6 - 12.9 fL nRBC % Auto 0.0 % nRBC Abs Auto 0.000 0.000 - 0.000 x10(3)/mcL Basic Metabolic Panel (non-fasting) Result Value Ref Range Glucose Lvl 109 65 - 199 mg/dL BUN 12 10 - 20 mg/dL Creatinine 0.78 (L) 0.80 - 1.50 mg/dL Sodium 137 135 - 145 mmol/L Potassium 4.0 3.5 - 5.0 mmol/L Chloride 101 98 - 107 mmol/L CO2 26 22 - 31 mmol/L Anion Gap 10 5 - 15 mmol/L Calcium 8.5 8.5 - 10.5 mg/dL Estimated GFR 91 >=60 mL/min/1.73 m?? Magnesium Result Value Ref Range Magnesium 0.70 0.69 - 1.07 mmol/L Phosphorus Result Value Ref Range Phosphorus 2.7 2.5 - 4.5 mg/dL Hemogram Result Value Ref Range WBC 11.2 (H) 4.0 - 9.5 x10(3)/mcL RBC 3.59 (L) 4.58 - 5.54 x10(6)/mcL Hemoglobin 10.6 (L) 13.7 - 16.5 gm/dL Hematocrit 31.6 (L) 40.5 - 48.5 % MCV 88.0 82.9 - 93.1 fL MCH 29.5 27.5 - 32.1 pg MCHC 33.5 32.0 - 35.7 gm/dL Platelets 170 145 - 357 x10(3)/mcL RDWSD 43.1 36.0 - 45.0 fL RDWCV 13.2 11.4 - 13.8 % MPV 10.6 7.6 - 12.9 fL nRBC % Auto 0.0 % nRBC Abs Auto 0.000 0.000 - 0.000 x10(3)/mcL Differential, Automated Result Value Ref Range Neutrophils % 85.5 % Neutr Abs (ANC) 9.55 (H) 1 - 6 x10(3)/mcL Lymphocytes % 5.6 % Lymphocytes Abs 0.6 (L) 0.9 - 3.2 x10(3)/mcL Monocytes % 8.1 % Monocyte Abs 0.9 0.3 - 0.9 x10(3)/mcL Eosinophils % 0.1 % Eosinophils Abs 0.0 0.0 - 0.4 x10(3)/mcL Basophils % 0.3 % Basophils Abs 0.0 0.0 - 0.1 x10(3)/mcL Immature Gran % 0.40 % Mae Gran Abs 0.05 (H) 0.00 - 0.04 x10(3)/mcL EKG 12 Lead Result Value Ref Range Ventricular rate 92 BPM Atrial Rate 92 BPM P-R Interval 180 ms QRS Duration 166 ms Q-T Interval 426 ms QTC Calculated (Bezet) 526 ms Calculated P Manns Choice 43 degrees Calculated R Manns Choice -63 degrees Calculated T Manns Choice 62 degrees INTERPRETATION Atrial-sensed ventricular-paced rhythm Underlying normal sinus rhythm Abnormal ECG When compared with ECG of 05-MAR-2021 15:30, Vent. rate has increased BY 19 BPM Confirmed by Devonte Newsome ([id number]) on 03/08/2021 4:10:26 PM ABO/Rh Typing Result Value Ref Range ABORh Type A Neg Antibody screen Result Value Ref Range Ab Screen Interp Negative Expires at [id number] on: 03/11/2021 ABORH Recheck Status Result Value Ref Range ABORH Type Recheck Completed Type and Screen Validity Result Value Ref Range T&S only valid at [facility] Hemogram Result Value Ref Range WBC 14.5 (H) 4.0 - 9.5 x10(3)/mcL RBC 3.29 (L) 4.58 - 5.54 x10(6)/mcL Hemoglobin 9.7 (L) 13.7 - 16.5 gm/dL Hematocrit 29.0 (L) 40.5 - 48.5 % MCV 88.1 82.9 - 93.1 fL MCH 29.5 27.5 - 32.1 pg MCHC 33.4 32.0 - 35.7 gm/dL Platelets 187 145 - 357 x10(3)/mcL RDWSD 43.1 36.0 - 45.0 fL RDWCV 13.2 11.4 - 13.8 % MPV 10.3 7.6 - 12.9 fL nRBC % Auto 0.0 % nRBC Abs Auto 0.000 0.000 - 0.000 x10(3)/mcL Differential, Automated Result Value Ref Range Neutrophils % 86.8 % Neutr Abs (ANC) 12.59 (H) 1 - 6 x10(3)/mcL Lymphocytes % 4.5 % Lymphocytes Abs 0.7 (L) 0.9 - 3.2 x10(3)/mcL Monocytes % 7.5 % Monocyte Abs 1.1 (H) 0.3 - 0.9 x10(3)/mcL Eosinophils % 0.0 % Eosinophils Abs 0.0 0.0 - 0.4 x10(3)/mcL Basophils % 0.1 % Basophils Abs 0.0 0.0 - 0.1 x10(3)/mcL Immature Gran % 1.10 % Mae Gran Abs 0.16 (H) 0.00 - 0.04 x10(3)/mcL Basic Metabolic Panel (non-fasting) Result Value Ref Range Glucose Lvl 112 65 - 199 mg/dL BUN 14 10 - 20 mg/dL Creatinine 0.81 0.80 - 1.50 mg/dL Sodium 132 (L) 135 - 145 mmol/L Potassium 4.1 3.5 - 5.0 mmol/L Chloride 98 98 - 107 mmol/L CO2 26 22 - 31 mmol/L Anion Gap 8 5 - 15 mmol/L Calcium 8.0 (L) 8.5 - 10.5 mg/dL Estimated GFR 89 >=60 mL/min/1.73 m?? Magnesium Result Value Ref Range Magnesium 0.85 0.69 - 1.07 mmol/L Phosphorus Result Value Ref Range Phosphorus 3.1 2.5 - 4.5 mg/dL Hemogram Result Value Ref Range WBC 12.4 (H) 4.0 - 9.5 x10(3)/mcL RBC 2.64 (L) 4.58 - 5.54 x10(6)/mcL Hemoglobin 7.9 (L) 13.7 - 16.5 gm/dL Hematocrit 23.6 (L) 40.5 - 48.5 % MCV 89.4 82.9 - 93.1 fL MCH 29.9 27.5 - 32.1 pg MCHC 33.5 32.0 - 35.7 gm/dL Platelets 187 145 - 357 x10(3)/mcL RDWSD 43.7 36.0 - 45.0 fL RDWCV 13.4 11.4 - 13.8 % MPV 10.4 7.6 - 12.9 fL nRBC % Auto 0.0 % nRBC Abs Auto 0.000 0.000 - 0.000 x10(3)/mcL Differential, Automated Result Value Ref Range Neutrophils % 82.6 % Neutr Abs (ANC) 10.25 (H) 1 - 6 x10(3)/mcL Lymphocytes % 8.4 % Lymphocytes Abs 1.0 0.9 - 3.2 x10(3)/mcL Monocytes % 7.8 % Monocyte Abs 1.0 (H) 0.3 - 0.9 x10(3)/mcL Eosinophils % 0.6 % Eosinophils Abs 0.1 0.0 - 0.4 x10(3)/mcL Basophils % 0.2 % Basophils Abs 0.0 0.0 - 0.1 x10(3)/mcL Immature Gran % 0.40 % Mae Gran Abs 0.05 (H) 0.00 - 0.04 x10(3)/mcL POCT Glucose Result Value Ref Range POC Glucose 177 65 - 199 mg/dL Prepare RBC Result Value Ref Range Dispensed? Yes Diagnostics: CXR 03/09/21: IMPRESSION 1. Increasing small to moderate left, partially loculated hemothorax. 2. No appreciable pneumothorax or change in orientation of the left chest tube. CXR 03/08/21: IMPRESSION No pneumothorax seen. Head CT wo contrast: 03/08/21: IMPRESSION No intracranial hemorrhage or other acute intracranial abnormality. CXR 03/06/2021: 1. No pneumothorax or pleural effusion. 2. Stable moderate to severe chronic emphysematous disease. CXR 03/05/2021: Assessment: London Neri is a 70 y.o. male with PMHx significant forrecurrent spontaneous pneumothorax, chronic CHF, mitral and aortic mechanical valves (on coumadin) who presents for surgical treatment of recurrent spontaneous Left pneumothorax. Now Day of Surgery s/p Left VATS partial decortication, blebectomy and talc pleurodesis on 03/06/2021. Concern for continued high volume sang CT output- hgb 7.9 from 9.7 this morning however, despite holding anticoagulation. Given continued symptamatic dizziness,hbg drop and CXR findings concerning for blood layering will plan to take to the OR for washout, decortication, hematoma evacuation and obtain hemostasis as a B case. Plan: Neuro: tylenol, tramadol Card: HDS, monitor vitals, ASA 81 mg daily Pulm: keep Left chest tube to -20 suction until airleak resolves, monitor output, pulmonary toilet - IS/cough/deep breathe FENGI: regular diet, MIVF, RBOs - senna, colace Renal/: monitor UOP, flomax 0.4 mg daily Heme: therapeutic lovenox 80 mg BID, holding home coumadin, most recent INR 1.4 on 03/06/2021. AM labs ID: [email or web address] Endo: CAROLINE Other: CAROLINE PPx: SCDs, IS/cough/deep breathe, OOB/ambulation Dispo: 3W floor status All plans formulated in discussion with and directed by attending thoracic surgeon Dr. Khalil. Ashanti May MD 03/09/2021 Thoracic Surgery Service Pager [phone] * Margarita Becerra, PT - 03/09/2021 8:01 AM EDT Physical Therapy 03/09/21 0801 Physical Therapy Time and Intention Document Type contact Mode of Treatment physical therapy Total Minutes, Physical Therapy 0 Comment, Session Not Performed Pt being taken to the OR urgently for exploratory thoracotomy. PT tofollow post-op per MD orders. MARGARITA BECERRA, PT Pager # [phone] In-Pt Rehab Medicine * Freya Cedeño MSW - 03/08/2021 2:57 PM EDT [employer] received call from pt's . She reports that the pt goes by Gonzalo. She was able to provide thefollowing information: - Pt lives at address on file; several steps to enter the apartment and then single floor living. 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 DRY YARD WORKER informed her that MD will also call by the end of the day. reports that her cell phone is not working and she is available at the sheldon number. Received second call around 3pm: - stating that [place] [facility] and is asking about local hotels. DRY YARD WORKER informed of [facility] [employer] [facility] ([facility] currently closed). interested in staying at [facility]. DRY YARD WORKER phone call to [employer] [facility] ([phone]), they report that they have availability. DRY YARD WORKER phone call to , provided her with the phone number; [facility] will complete intake with over the phone prior to her arrival. * Joseph Vidales, OT - 03/08/2021 2:11 PM EDT OCCUPATIONAL THERAPY 03/08/21 1889 OT Time and Intention Document Type contact Comment, Session Not Performed Order received and chart reviewed. Met w/ pt for social hx/previous level of function; however, formal eval. deferred due to recent onset of dizziness w/ plan to returnlater in day. Unable to follow up w/ evaluation on this date as pt had fall in room, following conversation w/ RN evaluation deferred until later date. OT will follow up as able/appropriate. Vital Signs Heart Rate from SpO2 87 bpm SpO2 92 % Joseph Vidales, OT Pager: [phone] * Margarita Becerra PT - 03/08/2021 2:00 PM EDT Physical Therapy Patient Profile: London Neri is a 70 y.o. male POD2 s/p Left VATS partial decortication, blebectomy and talc pleurodesis. 03/08/21 1400 Physical Therapy Time and Intention Document Type contact Mode of Treatment physical therapy Total Minutes, Physical Therapy 0 Comment, Session Not Performed Pt interviewed this am for plan for PT/OT in pm but pt subsequently became unresponsive when sitting on commode w/ fall to the floor. Pt assisted back to bed, has stat CT scan which was negative for a bleed. OT spoke w/ RN who feels that PT/OT eval would be best deferred until tomorrow MARGARITA BECERRA, PT Pager [phone] In-Pt Rehab Medicine * Ashanti May MD - 03/08/2021 11:34 AM EDT Thoracic Surgery Service Event Note Patient ID: London Neri is a 70 y.o. male POD2 s/p Left VATS partial decortication, blebectomy and talc pleurodesis. Event: I was called to the bedside after pt had dizziness/syncopal episode while on cammode and fell. Pt was using bedside commode, became dizzy then had LOC per RN at bedside. He fell forward hitting his head. Momentarily after hitting his head he was conscious again and returned to bed. Vitals: Last value Range last 8 hrs Temperature Temp: 36.3 ??C (97.3 ??F) Temp: [36.3 ??C (97.3 ??F)] Heart Rate Heart Rate: 75 Heart Rate: -- Blood Pressure BP: 120/55 BP: (103-120)/(49-59) Respiratory Rate Resp: 22 Resp: [20-22] SpO2 SpO2: 91 % SpO2: [91 %-97 %] I/O Current Shift: 03/08 07 - 03/08 1900 In: - Out: 250 Physical Exam: General: laying in bed in no acute distress. Swelling to center of forehead with small skin tear, not actively bleeding. Neuro: Awake, alert, responds to questions appropriately, CN II-XII grossly intact, moving all fourextremities spontaneously. C-spine: no bony tenderness. No step-offs. c-collar cleared. CV: RRR, +S1S2, no m/r/g Pulm: Normal effort, lungs CTAB, no r/r/w Abd: Soft, non-tender, non-distended. Skin: warm, dry, well perfused. IMPRESSION No intracranial hemorrhage or other acute intracranial abnormality. Assessment: I was called to the bedside for fall after dizziness/LOC event. He is POD2 s/p Left VATS partial decortication, blebectomy and talc pleurodesis and receiving therapeutic lovenox for mechanical heart valves. He is hemodynamically stable, mentating normally, and has no focal neuro deficits. Plan: - STAT Head CT wo contrast given therapeutic lovenox - 500 cc LR bolus - remote telemetry monitoring - repeat EKG to evaluate QTc - no bony tenderness. No step-offs. c-collar cleared clinically. - repeat cbc and electrolytes given hbg 11.2 from 13.7 D/w event and plan with Dr. Khalil. Ashanti May MD 03/08/2021 11:35 AM * Remigio Gómez RN - 03/08/2021 10:59 AM EDT London Pisano Daron [id number] 1950 Additional Information: patient on bedside commode, staff with patient at time of fall but not ableto catch patient. Patient reported nausea and dizziness, then patient lunged forward, fell onto floor, hit head. Patient endorses LOC/passing out while on bedside commode, before hitting floor. Date of Fall: 03/08/2021 Time of Fall: 1130 Unit/Location: [facility] Room Number: 326B Provide a brief factual description of what happened: patient was sitting on bed side commode, patient felt nauseated, this RN was with patient at time, patient lunged forward out of bedside commode and hit head on floor. Does the patient remember falling?: no What was the patient doing when the fall occurred?: trying to have a bowel movement Did the patient call for assistance or use the call harris?: no Did the patient hit his head?: yes Is the patient in pain?: no If the patient is having pain, where is the pain located?: n/a Description of fall by primary RN Melgar Score Pre-fall: 60 Melgar Score Post-fall:60 Current Fall Type: Witnessed Previous inpatient fall?: No Patient Injured?: Yes Injury description: small localized frontal head swelling and cut. SLEEP LAB TECHNOLOGIST called?: No Suspected intentional fall?: No Was device used?: No All assistive devices in use: None Recent high risk fall medication used?: Diuretic Current Fall prevention interventions: Fall prevention education to patient and family NEW preventative measure(s) to be put in place (list changes to plan of care): 2 staff members withpatient while up out of bed Physician/Provider notified?: Yes Name: Ashanti May Treatment required: Diagnostic Intervention Witnesses to events: Remigio Gómez RN Person completing report: Remigio Gómez RN Fall Occurrence Report * Winifred Patel PA - 03/08/2021 10:00 AM EDT Images from the original note were not included. [facility] Department of Thoracic Surgery Inpatient Progress Note [facility] [address] [facility] [address] [place], [place] [address] FAX: Patient Name: London Neri Patient : 1950 Patient Patient Location: [address] [place] [address] Thoracic surgery attending: Dr. Khalil HPI: London Neri is a 70 y.o. male with PMHx significant for recurrent spontaneous pneumothorax, chronic CHF, mitral and aortic mechanical valves (both placed 1998, on coumadin), s/p pacemaker who presents as transfer from [facility] for surgical treatment of recurrent spontaneous left pneumothorax. Reports sudden onset of SOB on Monday which he knew felt like his prior ptx and presented to [facility] for treatment. Hospitalized at [facility] from 03/03 until today when he was transferred [place] [facility] [place] management of his recurrent PTX. Had L-sided CT placed at [facility], with continuous air-leak since admission. Pt reports this is his fourth ptx, first occurred 2 years ago after multiple broken ribs in curred by slip and fall on ice. The 2nd and 3rd ptx were non-traumatic and one was attributed to lifting heavy item. Since CT placed at [facility] SOB has improved. Coumadin last taken morning of 03/04/21. Normal coumadin dose 10mg qd. He last ate at noon today. On assessment in the ED: He is HDS, on RA and in no distress. He endorses no complaints. Now 2 Days Post-Op s/p L VATS partial decortication, blebectomy and talc pleurodesis, (received 1 unit FFP just prior to procedure) 24 Hour Events / Subjective: -CT output noted to be more Sang o/n after starting therapeutic lovenox - 540cc out in 24 hours - hgb 11.2 from 13.7, CXR with decreased size left efffusion - HDS, satting well on RA Vitals: Temp: [36.3 ??C (97.3 ??F)-37.3 ??C (99.1 ??F)] Heart Rate: -- Resp: [15-22] BP: (97-120)/(46-61) SpO2: [89 %-97 %] Heart Rate from SpO2: [75 bpm-97 bpm] Wt & BMI By Encounter Date ED to Hosp-Admission (Current) from 03/05/2021 in 3 [facility] Office Visit from 08/10/2020 in Cardiology at [facility] Weight 79.7 kg (175 lb 11.2 oz) 1 03/07/2021 0711 81.6 kg (180 lb) 1 08/10/2020 1003 BMI 22.43 1 03/05/2021 1513 23.75 1 08/10/2020 1003 Physical Exam: Gen: NAD, pleasant, lying in bed HEENT: normocephalic, atraumatic, EOMI, sclerae anicteric Neck: supple, trachea midline Card: RRR, mechanical valve click noted Pulm: non-labored breathing on RA, CTAB, no wheeze, stridor or accessory muscle use, Left CT to -20suction with SS output in atrium with darker clot in tubing and intermittent but near continuous 1 column airleak appreciated Ext: warm, dry, no edema Neuro: A&Ox3, nonfocal, conversant LCT (-20): 540/420cc o/n I/O: I/O last 3 completed shifts: In: 3486 [P.O.:3100; I.V.:386] Out: 6610 [Urine:5800; Other:810] Labs: Recent Results (from the past 72 hour(s)) EKG 12 Lead Result Value Ref Range Ventricular rate 73 BPM Atrial Rate 73 BPM P-R Interval 178 ms QRS Duration 176 ms Q-T Interval 476 ms QTC Calculated (Bezet) 524 ms Calculated P Mann[place] 30 degrees Calculated R Mann[place] -103 degrees Calculated T [place] 62 degrees INTERPRETATION Atrial-sensed ventricular-paced rhythm Abnormal ECG When compared with ECG of 11-SEP-2007 16:25, Ventricular-paced rhythm is now present Confirmed by MD Emelina, Jordana Blanca ([id number]) on 03/07/2021 3:16:02 PM COVID-19 PCR Specimen: Nasopharyngeal Swab Symptoms->Surveillance Result Value Ref Range Rapid SARS-CoV-2 RNA Not Detected Not Detected SARS-CoV-2 Source LINUX SUPPORT ENGINEER Swab Prothrombin Time Result Value Ref Range PT 24.3 (H) 9.4 - 12.5 sec INR 2.1 APTT Result Value Ref Range PTT 44 (H) 25.0 - 37.0 sec Basic Metabolic Panel (non-fasting) Result Value Ref Range Glucose Lvl 96 65 - 199 mg/dL BUN 23 (H) 10 - 20 mg/dL Creatinine 0.90 0.80 - 1.50 mg/dL Sodium 138 135 - 145 mmol/L Potassium 4.5 3.5 - 5.0 mmol/L Chloride 101 98 - 107 mmol/L CO2 27 22 - 31 mmol/L Anion Gap 10 5 - 15 mmol/L Calcium 9.2 8.5 - 10.5 mg/dL Estimated GFR 86 >=60 mL/min/1.73 m?? Hemogram Result Value Ref Range WBC 7.2 4.0 - 9.5 x10(3)/mcL RBC 4.60 4.58 - 5.54 x10(6)/mcL Hemoglobin 13.7 13.7 - 16.5 gm/dL Hematocrit 40.4 (L) 40.5 - 48.5 % MCV 87.8 82.9 - 93.1 fL MCH 29.8 27.5 - 32.1 pg MCHC 33.9 32.0 - 35.7 gm/dL Platelets 197 145 - 357 x10(3)/mcL RDWSD 44.7 36.0 - 45.0 fL RDWCV 13.8 11.4 - 13.8 % MPV 10.0 7.6 - 12.9 fL nRBC % Auto 0.0 % nRBC Abs Auto 0.000 0.000 - 0.000 x10(3)/mcL Differential, Automated Result Value Ref Range Neutrophils % 68.0 % Neutr Abs (ANC) 4.90 1 - 6 x10(3)/mcL Lymphocytes % 17.1 % Lymphocytes Abs 1.2 0.9 - 3.2 x10(3)/mcL Monocytes % 9.4 % Monocyte Abs 0.7 0.3 - 0.9 x10(3)/mcL Eosinophils % 4.6 % Eosinophils Abs 0.3 0.0 - 0.4 x10(3)/mcL Basophils % 0.8 % Basophils Abs 0.1 0.0 - 0.1 x10(3)/mcL Immature Gran % 0.10 % Mae Gran Abs 0.01 0.00 - 0.04 x10(3)/mcL ABO/Rh Typing Result Value Ref Range ABORh Type A Neg Antibody screen Result Value Ref Range Ab Screen Interp Negative Expires at 2359 on: 03/08/2021 ABORH Recheck Status Result Value Ref Range ABORH Recheck Order Order Placed ABORH Type Recheck Complete Type and Screen Validity Result Value Ref Range T&S only valid at [facility] Prothrombin Time Result Value Ref Range PT 20.6 (H) 9.4 - 12.5 sec INR 1.8 Prepare thawed plasma Result Value Ref Range Dispensed? Yes Prothrombin Time Result Value Ref Range PT 15.9 (H) 9.4 - 12.5 sec INR 1.4 APTT Result Value Ref Range PTT 32 25.0 - 37.0 sec Differential, Automated Result Value Ref Range Neutrophils % 79.2 % Neutr Abs (ANC) 7.71 (H) 1 - 6 x10(3)/mcL Lymphocytes % 9.6 % Lymphocytes Abs 0.9 0.9 - 3.2 x10(3)/mcL Monocytes % 9.1 % Monocyte Abs 0.9 0.3 - 0.9 x10(3)/mcL Eosinophils % 1.3 % Eosinophils Abs 0.1 0.0 - 0.4 x10(3)/mcL Basophils % 0.4 % Basophils Abs 0.0 0.0 - 0.1 x10(3)/mcL Immature Gran % 0.40 % Mae Gran Abs 0.04 0.00 - 0.04 x10(3)/mcL Hemogram Result Value Ref Range WBC 9.8 (H) 4.0 - 9.5 x10(3)/mcL RBC 3.75 (L) 4.58 - 5.54 x10(6)/mcL Hemoglobin 11.2 (L) 13.7 - 16.5 gm/dL Hematocrit 33.6 (L) 40.5 - 48.5 % MCV 89.6 82.9 - 93.1 fL MCH 29.9 27.5 - 32.1 pg MCHC 33.3 32.0 - 35.7 gm/dL Platelets 165 145 - 357 x10(3)/mcL RDWSD 44.4 36.0 - 45.0 fL RDWCV 13.5 11.4 - 13.8 % MPV 10.3 7.6 - 12.9 fL nRBC % Auto 0.0 % nRBC Abs Auto 0.000 0.000 - 0.000 x10(3)/mcL Diagnostics: CXR 03/06/2021: 1. No pneumothorax or pleural effusion. 2. Stable moderate to severe chronic emphysematous disease. CXR 03/05/2021: Assessment: London Neri is a 70 y.o. male with PMHx significant forrecurrent spontaneous pneumothorax, chronic CHF, mitral and aortic mechanical valves (on coumadin) who presents for surgical treatment of recurrent spontaneous Left pneumothorax. Now 2 Days Post-Op s/p Left VATS partial decortication, blebectomy and talc pleurodesis on 03/06/2021. Concern overnight for high volume sang CT output- hgb 11.2 from 13.7 this morning however, HDS, CXR with decreased size of left effusion and only 150cc SS output in last 3 hours, low concern for active bleeding. Plan: Neuro: tylenol, tramadol Card: HDS, monitor vitals, ASA 81 mg daily Pulm: keep Left chest tube to -20 suction until airleak resolves, monitor output, pulmonary toilet - IS/cough/deep breathe FENGI: regular diet, MIVF, RBOs - senna, colace Renal/: monitor UOP, flomax 0.4 mg daily Heme: therapeutic lovenox 80 mg BID, holding home coumadin, most recent INR 1.4 on 03/06/2021. AM labs ID: CAROLINE Endo: CAROLINE Other: CAROLINE PPx: SCDs, IS/cough/deep breathe, OOB/ambulation Dispo: 3W floor status All plans formulated in discussion with and directed by attending thoracic surgeon Dr. Khalil. [place] Chaudhry 03/08/2021 Thoracic Surgery Service Pager [phone] * Avril East RN - 03/07/2021 5:32 PM EDT OUTCOME EVALUATION NOTE: OUTCOME SUMMARY: Patient a/ox4, denies SOB, CP, N/V, and dizziness. Patient's pain adequately controlled with scheduled medications, see MAR for medications given. VSS on RA. Intermittent cough, productive with thicksputum. Compression stockings applied to BLE as ordered. Dressing to L chest C/D/I. Band-Aid to L chest with dried drainage. Two Band-Aids to L back C/D/I. PIV intact, capped. Chest tube maintained to LCWS, moderate serosanguinous drainage throughout shift, see chart. Tolerating regular diet well. Goldsmith maintained, clear yellow urine throughout shift. LBM SPINDLE PLUMBER, bowel meds given. OOB to walk aroundunit 4x throughout shift, tolerating well. Will continue to monitor and help patient reach d/c goals. PLAN MOVING FORWARD: Pain control Mobilize Chest tube to LCWS Goldsmith wean D/C planning INDIVIDUALIZED FALL PREVENTION: Patient is currently a high risk to Fall. Patient educated on bed/chair alarm, demonstrates proper use of call harris and verbalizes understanding of fall preventions implemented. Patient-specific fall risk factors per assessment: [current deficits]: PIV, Goldsmith, Chest tube, Pain, Medications, Hospital Environment, Impaired Mobility, Recent Surgery Assistance [level of assistance required for transfers and ambulation]: SBA with FWW Supervision [direct monitoring required during toileting and ADLs]: Moderate assistance with ADL's Surveillance [continuous indirect monitoring]: Zenono, Purposeful Rounding, Nurse Knowledge Exchange at Bedside, Bed Alarm Set * Avril East RN - 03/06/2021 6:50 PM EDT OUTCOME EVALUATION NOTE: OUTCOME SUMMARY: Patient a/ox4, denies SOB, CP, dizziness, and N/V. Patient's pain adequately controlled with scheduled medications. VSS on 2L, weaned to RA. Chest tube maintained to LCWS, serosanginous drainage, seechart for output. Air leak present, remains unchanged since PACU. Dressing to L chest C/D/I, multiple Band- Aids to L chest intact, dried drainage noted. PIV intact, LR running. Tolerating regular diet, PO fluids encouraged. Retaining large amounts of urine with voiding, goldsmith placed per team instruction for PVR > 400cc with last urination. LBM 03/04. Stood at side of bed with SBA and FWW. Will continue to monitor and help patient reach d/c goals. PLAN MOVING FORWARD: Pain control Mobilize Chest tube to LCWS Goldsmith wean D/C planning INDIVIDUALIZED FALL PREVENTION: Patient is currently a high risk to Fall. Patient educated on bed/chair alarm, demonstrates proper use of call harris and verbalizes understanding of fall preventions implemented. Patient-specific fall risk factors per assessment: [current deficits]: PIV, Chest tube, Weakness, Pain, Medications, Hospital Environment, Impaired Mobility, Recent Surgery Assistance [level of assistance required for transfers and ambulation]: SBA with FWW Supervision [direct monitoring required during toileting and ADLs]: Moderate assistance with ADL's Surveillance [continuous indirect monitoring]: Masimo, Purposeful Rounding, Nurse Knowledge Exchange at Bedside, Bed Alarm Set * Avril East RN - 03/06/2021 3:50 PM EDT Pt arrived to floor from PACU. Suction maintained to low continuous suction. Dressing to L chest C/D/I. Dim in L lobes. VSS on 2LNC. Pt alert and oriented x4. Pt reports pain 3/10. Pt denies any chest pain, shortness of breath, dizziness or nausea. Refer to doc flow sheets for full assessment. Suction and chest tube supplies in room at bedside. Patient oriented to room with call harris within reach. Masimo on. Due to void, fluids provided, will encourage voiding and PO fluids. Will continue to monitor. * Henry Becerra RN - 03/06/2021 3:35 PM EDT Pt monitored in PACU 14, alarms set. No nausea, pain was minimal. USe of deep breathing and coughing and IS helped to reduce O2 requirements. Report called to Avril JIN, transferred to 326 * Hardeep Cool, DO - 03/06/2021 3:06 PM EDT Post-Operative Check London Neri is a 70 y.o. male s/p Procedure(s): @THORACOSCOPY, SURG; W/RESC-PLICATION EMPHYSEMATOUS LUNG, UNILATERAL (WRVU 27) @THORACOSCOPY, SURG; W PLEURODESIS (WRVU 10.83) BRONCHOSCOPY, DIAGNOSTIC (WRVU 2.78) @THORACOSCOPY, SURG; W PART. DECORTICATION (WRVU 18.78) S: Tolerating pudding and sips of water. No nausea/vomiting, chest pain, SOB, pain well controlled,offers no complaints O: Temp: [36.5 ??C (97.7 ??F)-36.6 ??C (97.9 ??F)] Heart Rate: [65-73] Resp: [11-25] BP: (90-149)/(39-77) SpO2: [89 %-98 %] Heart Rate from SpO2: [66 bpm-73 bpm] I/O last 3 completed shifts: In: 240 [P.O.:240] Out: 1361 [Urine:1175; Other:186] I/O this shift: In: 2969 [P.O.:240; I.V.:2311; Blood:218; IV Piggyback:200] Out: 464 [Other:364; Blood:100] Recent Results (from the past 24 hour(s)) COVID-19 PCR Specimen: Nasopharyngeal Swab Symptoms->Surveillance Result Value Ref Range Rapid SARS-CoV-2 RNA Not Detected Not Detected SARS-CoV-2 Source LINUX SUPPORT ENGINEER Swab Prothrombin Time Result Value Ref Range PT 24.3 (H) 9.4 - 12.5 sec INR 2.1 APTT Result Value Ref Range PTT 44 (H) 25.0 - 37.0 sec Basic Metabolic Panel (non-fasting) Result Value Ref Range Glucose Lvl 96 65 - 199 mg/dL BUN 23 (H) 10 - 20 mg/dL Creatinine 0.90 0.80 - 1.50 mg/dL Sodium 138 135 - 145 mmol/L Potassium 4.5 3.5 - 5.0 mmol/L Chloride 101 98 - 107 mmol/L CO2 27 22 - 31 mmol/L Anion Gap 10 5 - 15 mmol/L Calcium 9.2 8.5 - 10.5 mg/dL Estimated GFR 86 >=60 mL/min/1.73 m?? Hemogram Result Value Ref Range WBC 7.2 4.0 - 9.5 x10(3)/mcL RBC 4.60 4.58 - 5.54 x10(6)/mcL Hemoglobin 13.7 13.7 - 16.5 gm/dL Hematocrit 40.4 (L) 40.5 - 48.5 % MCV 87.8 82.9 - 93.1 fL MCH 29.8 27.5 - 32.1 pg MCHC 33.9 32.0 - 35.7 gm/dL Platelets 197 145 - 357 x10(3)/mcL RDWSD 44.7 36.0 - 45.0 fL RDWCV 13.8 11.4 - 13.8 % MPV 10.0 7.6 - 12.9 fL nRBC % Auto 0.0 % nRBC Abs Auto 0.000 0.000 - 0.000 x10(3)/mcL Differential, Automated Result Value Ref Range Neutrophils % 68.0 % Neutr Abs (ANC) 4.90 1 - 6 x10(3)/mcL Lymphocytes % 17.1 % Lymphocytes Abs 1.2 0.9 - 3.2 x10(3)/mcL Monocytes % 9.4 % Monocyte Abs 0.7 0.3 - 0.9 x10(3)/mcL Eosinophils % 4.6 % Eosinophils Abs 0.3 0.0 - 0.4 x10(3)/mcL Basophils % 0.8 % Basophils Abs 0.1 0.0 - 0.1 x10(3)/mcL Immature Gran % 0.10 % Mae Gran Abs 0.01 0.00 - 0.04 x10(3)/mcL ABO/Rh Typing Result Value Ref Range ABORh Type A Neg Antibody screen Result Value Ref Range Ab Screen Interp Negative Expires at 2359 on: 03/08/2021 ABORH Recheck Status Result Value Ref Range ABORH Recheck Order Order Placed ABORH Type Recheck Complete Type and Screen Validity Result Value Ref Range T&S only valid at [facility] Prothrombin Time Result Value Ref Range PT 20.6 (H) 9.4 - 12.5 sec INR 1.8 Prepare thawed plasma Result Value Ref Range Dispensed? Yes Prothrombin Time Result Value Ref Range PT 15.9 (H) 9.4 - 12.5 sec INR 1.4 APTT Result Value Ref Range PTT 32 25.0 - 37.0 sec Physical Exam Gen: A0x3, NAD, resting comfortably CVS: Regular rate Resp: CTAB, breathing comfortably on NC 3L, pulling 1L on IS, L CT to -20mmHg suction, with approximately 300cc of sanguinous output, 1 column airleak on coughing, port site incisions cdi, no hematoma noted. Abd: soft, appropriately tender, nondistended Ext: SCDs in place, WWP AP London Neri is a 70 y.o. male s/p L VATS partial decortication, blebectomy, talc pleurodesis.He is currently in stable condition and recovering well - NPO diet (Give Meds) - Pain well controlled - Hemodynamically stable, he is due to void - Continue post operative plan per primary team Hardeep Cool, 03/06/2021 Thoracic Surgery [id number] * Lc Vail PA - 03/06/2021 12:51 PM EDT Cardiac Device Interrogation London Neri [id number] 03/06/2021 History: Mr. Neri is a 70 yo male with a history of HTN, mechanical aortic and mitral valve [id number], on chronic Coumadin with INR goal 2.5-3.5, high-grade AV block, s/p dual-chamber permanent pacemaker implantation in 2007, admitted to hospital in July 2020 for generator change on 07/31/2020in the setting of battery depletion and symptomatic bradycardia due to reversion to VVI pacing and loss of AV-synchrony, hx refractory C. Difficile following flagyl with resolution on vancomycin, hx multiple traumatic pneumothoraces requiring chest tube placement, who presented [place] [facility] [place] transfer from [facility] for surgical treatment of recurrent spontaneous left pneumothorax. He underwent Left VATS partial decortication, blebectomy and talc pleurodesis on 03/06/2021. We were asked to interrogate device following intraoperative magnet application and ventricular tachycardia reported on telemetry frantz-procedurally. Device Interrogation: Data: Generator: [employer] [id number] serial# [id number] implant 07/31/2020 RV lead: [employer] [id number] serial# [id number]; implanted 09/26/2008 RA lead: [employer] [id number] serial# [id number]; implanted 09/26/2008 Diagnostics Pacing Mode: DDDR 60/120/120; PAV 180, EULA 150, Mode Switch 171 Presenting EGMs: -ACCOUNTANT MACHINE PROCESSING Underlying Rhythm: CHB with no sensed R wave VVI 30 Atrial Episodes: None since 10/02/2020 Ventricular Episodes: None since 08/12/2020 Atrial Pacin.8% since 08/12/2020 Ventricular Pacin.9% since 08/12/2020 Thoracic Impedance: N/A HR Histogram: Appropriate Battery and Leads Voltage: N/A Status: 10.6 yrs Magnet Rate: 85bpm Charge Time: ---- Impedances (ohms) Sensing (mV) Thresholds HV RA RV LV RA RV LV RA RV LV --- 475 646 ---- 2.5 Paced --- 0.75V @ 0.40ms 1.25V @ 0.40ms ---- Comments: - Pocket incision is well healed without signs or symptoms of infection - DEVICE IS FUNCTIONING APPROPRIATELY POST-OPERATIVELY WITHOUT RECENT ATRIAL OR VENTRICULAR EVENTS.NOTE, NO DATA IS COLLECTED DURING ASYNCHRONOUS MODE (MAGNET MODE) INCLUDING EVENTS. IF CONCERN EXISTS FOR NON-SUSTAINED VENTRICULAR ARRHYTHMIA, RECOMMEND PATIENT BE MONITORED ON TELEMETRY WHILE INPATIENT STATUS. - Programming changes ?? None - Follow up: Remotely and in device clinic as scheduled W[place] Cain 03/06/2021 Pager: [phone] * Avril East RN - 03/06/2021 7:30 AM EDT Patient down to OR, RN accompanied to OR. VSS on RA. Denies SOB, CP, dizziness, and N/V. Chest tubeto low continuous suction maintained, air leak present. NPO status maintained. No change from assessment, see chart. * Nancy Salcido RN - 03/05/2021 10:56 PM EDT Patient arrived to floor from ED, oriented to room and call harris. Patient is alert and oriented x 4, denies numbness or tingling. Lungs dim on L, clear on R, patient endorses mild SOB. HRR, positivelpedal pulses bilaterally. Urinal provided at bedside. LBM prior to arrival today per patient report. L pigtail chest tube to LCWS with air leak noted. Patient denies pain at this time. Patient encouraged to call for nursing assist as needed. Will continue to monitor. documented in this encounter H&P Notes * Rubén Bone PA - 03/07/2021 9:59 AM EDT Images from the original note were not included. [facility] Department of Thoracic Surgery Inpatient Progress Note [place], [place] [address] FAX: Patient Name: London Neri Patient : 1950 Patient Patient Location: [address] [place] [address] Thoracic surgery attending: Dr. Khalil HPI: London Neri is a 70 y.o. male with PMHx significant for recurrent spontaneous pneumothorax, CHF,mitral and aortic mechanical valves (both placed 1998, on coumadin), s/p pacemaker who presents as transfer from [facility] for surgical treatment of recurrent spontaneous left pneumothorax. Reports sudden onset of SOB on Monday which he knew felt like his prior ptx and presented to [facility] for treatment. Hospitalized at [facility] from 03/03 until today when he was [place] [facility] [place] management of his recurrent PTX. Had L-sided CT placed at [facility], with continuous air-leak since admission. Pt reports this is his fourth ptx, first occurred 2 years ago after multiple broken ribs in curred by slip and fall on ice. The 2nd and 3rd ptx were non-traumatic and one was attributed to lifting heavy item. Since CT placed at [facility] SOB has improved. Coumadin last taken morning of 03/04/21. Normal coumadin dose 10mg qd. He last ate at noon today. On assessment in the ED: He is HDS, on RA and in no distress. He endorses no complaints. 24 Hour Events / Subjective: - To OR for Left VATS partial decortication, blebectomy and talc pleurodesis, received 1 unit FFP just prior to procedure, goldsmith replaced yesterday, JULIO o/n, no complaints this AM, pain well controlled, stable on 2L NC Vitals: Temp: [36.3 ??C (97.3 ??F)-37 ??C (98.6 ??F)] Heart Rate: [65-75] Resp: [11-25] BP: (90-149)/(39-77) SpO2: [88 %-98 %] Heart Rate from SpO2: [65 bpm-75 bpm] Wt & BMI By Encounter Date ED to Hosp-Admission (Current) from 03/05/2021 in 3 [facility] Office Visit from 08/10/2020 in [place]iology [place] [facility] Weight 76.4 kg (168 lb 6.4 oz) 1 03/06/2021 0708 81.6 kg (180 lb) 1 08/10/2020 1003 BMI 22.43 1 03/05/2021 1513 23.75 1 08/10/2020 1003 Physical Exam: Gen: NAD, pleasant, sitting up in hospital bed HEENT: normocephalic, atraumatic, EOMI, sclerae anicteric Neck: supple, trachea midline Card: RRR, mechanical valve click noted Pulm: non-labored breathing on RA, CTAB, no wheeze, stridor or accessory muscle use, Left CT to -20suction with SS output and intermittent but near continuous 1 column airleak appreciated Ext: warm, dry, no edema Neuro: A&Ox3, nonfocal, conversant I/O: I/O last 3 completed shifts: In: 4008 [P.O.:1116; I.V.:2474; Blood:218; IV Piggyback:200] Out: 2545 [Urine:1745; Other:700; Blood:100] Labs: Recent Results (from the past 72 hour(s)) EKG 12 Lead Result Value Ref Range Ventricular rate 73 BPM Atrial Rate 73 BPM P-R Interval 178 ms QRS Duration 176 ms Q-T Interval 476 ms QTC Calculated (Bezet) 524 ms Calculated P Manns Choice 30 degrees Calculated R Manns Choice -103 degrees Calculated T Manns Choice 62 degrees INTERPRETATION Atrial-sensed ventricular-paced rhythm Abnormal ECG When compared with ECG of 11-SEP-2007 16:25, Electronic ventricular pacemaker has replaced Sinus rhythm COVID-19 PCR Specimen: Nasopharyngeal Swab Symptoms->Surveillance Result Value Ref Range Rapid SARS-CoV-2 RNA Not Detected Not Detected SARS-CoV-2 Source LINUX SUPPORT ENGINEER Swab Prothrombin Time Result Value Ref Range PT 24.3 (H) 9.4 - 12.5 sec INR 2.1 APTT Result Value Ref Range PTT 44 (H) 25.0 - 37.0 sec Basic Metabolic Panel (non-fasting) Result Value Ref Range Glucose Lvl 96 65 - 199 mg/dL BUN 23 (H) 10 - 20 mg/dL Creatinine 0.90 0.80 - 1.50 mg/dL Sodium 138 135 - 145 mmol/L Potassium 4.5 3.5 - 5.0 mmol/L Chloride 101 98 - 107 mmol/L CO2 27 22 - 31 mmol/L Anion Gap 10 5 - 15 mmol/L Calcium 9.2 8.5 - 10.5 mg/dL Estimated GFR 86 >=60 mL/min/1.73 m?? Hemogram Result Value Ref Range WBC 7.2 4.0 - 9.5 x10(3)/mcL RBC 4.60 4.58 - 5.54 x10(6)/mcL Hemoglobin 13.7 13.7 - 16.5 gm/dL Hematocrit 40.4 (L) 40.5 - 48.5 % MCV 87.8 82.9 - 93.1 fL MCH 29.8 27.5 - 32.1 pg MCHC 33.9 32.0 - 35.7 gm/dL Platelets 197 145 - 357 x10(3)/mcL RDWSD 44.7 36.0 - 45.0 fL RDWCV 13.8 11.4 - 13.8 % MPV 10.0 7.6 - 12.9 fL nRBC % Auto 0.0 % nRBC Abs Auto 0.000 0.000 - 0.000 x10(3)/mcL Differential, Automated Result Value Ref Range Neutrophils % 68.0 % Neutr Abs (ANC) 4.90 1 - 6 x10(3)/mcL Lymphocytes % 17.1 % Lymphocytes Abs 1.2 0.9 - 3.2 x10(3)/mcL Monocytes % 9.4 % Monocyte Abs 0.7 0.3 - 0.9 x10(3)/mcL Eosinophils % 4.6 % Eosinophils Abs 0.3 0.0 - 0.4 x10(3)/mcL Basophils % 0.8 % Basophils Abs 0.1 0.0 - 0.1 x10(3)/mcL Immature Gran % 0.10 % Mae Gran Abs 0.01 0.00 - 0.04 x10(3)/mcL ABO/Rh Typing Result Value Ref Range ABORh Type A Neg Antibody screen Result Value Ref Range Ab Screen Interp Negative Expires at 2359 on: 03/08/2021 ABORH Recheck Status Result Value Ref Range ABORH Recheck Order Order Placed ABORH Type Recheck Complete Type and Screen Validity Result Value Ref Range T&S only valid at [facility] Prothrombin Time Result Value Ref Range PT 20.6 (H) 9.4 - 12.5 sec INR 1.8 Prepare thawed plasma Result Value Ref Range Dispensed? Yes Prothrombin Time Result Value Ref Range PT 15.9 (H) 9.4 - 12.5 sec INR 1.4 APTT Result Value Ref Range PTT 32 25.0 - 37.0 sec Diagnostics: CXR 03/06/2021: 1. No pneumothorax or pleural effusion. 2. Stable moderate to severe chronic emphysematous disease. CXR 03/05/2021: Assessment: London Neri is a 70 y.o. male with PMHx significant forrecurrent spontaneous pneumothorax, CHF, mitral and aortic mechanical valves (on coumadin) who presents for surgical treatment of recurrent spontaneous Left pneumothorax. Now 1 Day Post-Op s/p Left VATS partial decortication, blebectomy and talc pleurodesis on 03/06/2021. Recovering well post-operatively. Plan: Neuro: tylenol, tramadol Card: HDS, monitor vitals, ASA 81 mg daily Pulm: keep Left chest tube to -20 suction until airleak resolves, monitor output and airleak, pulmonary toilet - IS/cough/deep breathe FENGI: regular diet, MIVF, RBOs - senna, colace Renal/: maintain goldsmith, monitor UOP, flomax 0.4 mg daily Heme: therapeutic lovenox 80 mg BID, holding home coumadin, most recent INR 1.4 on 03/06/2021 ID: CAROLINE Endo: CAROLINE Other: CAROLINE PPx: SCDs, IS/cough/deep breathe, OOB/ambulation Dispo: 3W floor status All plans formulated in discussion with and directed by attending thoracic surgeon Dr. Khalil. [place] Lea 03/07/2021 Thoracic Surgery Service Pager [phone] * Rubén Bone PA - 03/06/2021 8:29 AM EDT Images from the original note were not included. [facility] Department of Thoracic Surgery Inpatient Progress Note [facility] [place] [address] FAX: Patient Name: London Neri Patient : 1950 Patient Patient Location: [address] [place] [address] Thoracic surgery attending: Dr. Khalil HPI: London Neri is a 70 y.o. male with PMHx significant for recurrent spontaneous pneumothorax, CHF,mitral and aortic mechanical valves (both placed 1998, on coumadin), s/p pacemaker who presents as transfer from [facility] for surgical treatment of recurrent spontaneous left pneumothorax. Reports sudden onset of SOB on Monday which he knew felt like his prior ptx and presented to [facility] for treatment. Hospitalized at [facility] from 03/03 until today when he was transferred [place] [facility] [place] management of his recurrent PTX. Had L-sided CT placed at [facility], with continuous air-leak since admission. Pt reports this is his fourth ptx, first occurred 2 years ago after multiple broken ribs in curred by slip and fall on ice. The 2nd and 3rd ptx were non-traumatic and one was attributed to lifting heavy item. Since CT placed at [facility] SOB has improved. Coumadin last taken morning of 03/04/21. Normal coumadin dose 10mg qd. He last ate at noon today. On assessment in the ED: He is HDS, on RA and in no distress. He endorses no complaints. 24 Hour Events / Subjective: - INR 2.1 yesterday so could not proceed to OR, received 10 mg vitamin K x1 yesterday, chest tube drained 186 mL since arrival and large airleak remains present, no complaints, stable on RA Vitals: Temp: [36.4 ??C (97.5 ??F)-36.6 ??C (97.9 ??F)] Heart Rate: [80] Resp: [16-18] BP: (112-148)/(65-84) SpO2: [89 %-97 %] Heart Rate from SpO2: [61 bpm-81 bpm] Wt & BMI By Encounter Date ED to Hosp-Admission (Current) from 03/05/2021 in 3 [facility] Office Visit from 08/10/2020 [place] [facility] [place] 77.1 kg (170 lb) 1 03/05/2021 1513 81.6 kg (180 lb) 1 08/10/2020 1003 BMI 22.43 1 03/05/2021 1513 23.75 1 08/10/2020 1003 Physical Exam: Gen: NAD, pleasant, sitting up in hospital bed HEENT: normocephalic, atraumatic, EOMI, sclerae anicteric Neck: supple, trachea midline Card: Regular rate Pulm: non-labored breathing on RA, no wheeze, stridor or accessory muscle use, Left CT to -20 suction with 3-4 column near-continuous airleak appreciated Ext: warm, dry, no edema Neuro: A&Ox3, nonfocal, conversant I/O: I/O last 3 completed shifts: In: 240 [P.O.:240] Out: 600 [Urine:600] Labs: Recent Results (from the past 72 hour(s)) EKG 12 Lead Result Value Ref Range Ventricular rate 73 BPM Atrial Rate 73 BPM P-R Interval 178 ms QRS Duration 176 ms Q-T Interval 476 ms QTC Calculated (Bezet) 524 ms Calculated P Manns Choice 30 degrees Calculated R Manns Choice -103 degrees Calculated T Manns Choice 62 degrees INTERPRETATION Atrial-sensed ventricular-paced rhythm Abnormal ECG When compared with ECG of 11-SEP-2007 16:25, Electronic ventricular pacemaker has replaced Sinus rhythm COVID-19 PCR Specimen: Nasopharyngeal Swab Symptoms->Surveillance Result Value Ref Range Rapid SARS-CoV-2 RNA Not Detected Not Detected SARS-CoV-2 Source LINUX SUPPORT ENGINEER Swab Prothrombin Time Result Value Ref Range PT 24.3 (H) 9.4 - 12.5 sec INR 2.1 APTT Result Value Ref Range PTT 44 (H) 25.0 - 37.0 sec Basic Metabolic Panel (non-fasting) Result Value Ref Range Glucose Lvl 96 65 - 199 mg/dL BUN 23 (H) 10 - 20 mg/dL Creatinine 0.90 0.80 - 1.50 mg/dL Sodium 138 135 - 145 mmol/L Potassium 4.5 3.5 - 5.0 mmol/L Chloride 101 98 - 107 mmol/L CO2 27 22 - 31 mmol/L Anion Gap 10 5 - 15 mmol/L Calcium 9.2 8.5 - 10.5 mg/dL Estimated GFR 86 >=60 mL/min/1.73 m?? Hemogram Result Value Ref Range WBC 7.2 4.0 - 9.5 x10(3)/mcL RBC 4.60 4.58 - 5.54 x10(6)/mcL Hemoglobin 13.7 13.7 - 16.5 gm/dL Hematocrit 40.4 (L) 40.5 - 48.5 % MCV 87.8 82.9 - 93.1 fL MCH 29.8 27.5 - 32.1 pg MCHC 33.9 32.0 - 35.7 gm/dL Platelets 197 145 - 357 x10(3)/mcL RDWSD 44.7 36.0 - 45.0 fL RDWCV 13.8 11.4 - 13.8 % MPV 10.0 7.6 - 12.9 fL nRBC % Auto 0.0 % nRBC Abs Auto 0.000 0.000 - 0.000 x10(3)/mcL Differential, Automated Result Value Ref Range Neutrophils % 68.0 % Neutr Abs (ANC) 4.90 1 - 6 x10(3)/mcL Lymphocytes % 17.1 % Lymphocytes Abs 1.2 0.9 - 3.2 x10(3)/mcL Monocytes % 9.4 % Monocyte Abs 0.7 0.3 - 0.9 x10(3)/mcL Eosinophils % 4.6 % Eosinophils Abs 0.3 0.0 - 0.4 x10(3)/mcL Basophils % 0.8 % Basophils Abs 0.1 0.0 - 0.1 x10(3)/mcL Immature Gran % 0.10 % Mae Gran Abs 0.01 0.00 - 0.04 x10(3)/mcL ABO/Rh Typing Result Value Ref Range ABORh Type A Neg Antibody screen Result Value Ref Range Ab Screen Interp Negative Expires at 2359 on: 03/08/2021 ABORH Recheck Status Result Value Ref Range ABORH Recheck Order Order Placed ABORH Type Recheck Complete Type and Screen Validity Result Value Ref Range T&S only valid at [facility] Prothrombin Time Result Value Ref Range PT 20.6 (H) 9.4 - 12.5 sec INR 1.8 Diagnostics: CXR 03/05/2021: Assessment: London Neri is a 70 y.o. male with PMHx significant forrecurrent spontaneous pneumothorax, CHF, mitral and aortic mechanical valves (on coumadin) who presents for surgical treatment of recurrent spontaneous Left pneumothorax. He continues to remain hemodynamically stable, on RA with Left chest tube in place. Will plan for OR today. Plan: Neuro: tylenol Card: HDS, monitor vitals, ASA 81 mg daily Pulm: keep Left chest tube to -20 suction, monitor output and airleak, pulmonary toilet - IS/cough/deep breathe FENGI: NPO, MIVF, RBOs - senna, colace Renal/: voiding spontaneously, monitor UOP Heme: will give 1 unit FFP prior to procedure, holding home coumadin ID: CAROLINE Endo: CAROLINE Other: CAROLINE PPx: SCDs, IS/cough/deep breathe, OOB/ambulation Dispo: 3W floor status All plans formulated in discussion with and directed by attending thoracic surgeon Dr. Khalil. [place] Lea 03/06/2021 Thoracic Surgery Service Pager [phone] * Ashanti May MD - 03/05/2021 3:47 PM EDT [facility] Department of Thoracic Surgery Inpatient H&P Note [facility] [place], [place] [address] FAX: Patient Name: London Neri Patient : 1950 Patient Patient Location: ED10/ED10 B Thoracic surgery attending: Dr. Khalil HPI: London Neri is a 70 y.o. male with PMHx significant for recurrent spontaneous pneumothorax, CHF,mitral and aortic mechanical valves (both placed 1998, on coumadin), s/p pacemaker who presents as transfer from [facility] for surgical treatment of recurrent spontaneous left pneumothorax. Reports sudden onset of SOB on Monday which he knew felt like his prior ptx and presented to [facility] for treatment. Hospitalized at [facility] from 03/03 until today when he was transferred [place] [facility] [place] management of his recurrent PTX. Had L-sided CT placed at [facility], with continuous air-leak since admission. Pt reports this is his fourth ptx, first occurred 2 years ago after multiple broken ribs incurred by slip and fall on ice. The 2nd and 3rd ptx were non-traumatic and one was attributed to lifting heavy item. Since CT placed at [facility] SOB has improved. Coumadin last taken morning of 03/04/21. Normal coumadin dose 10mg qd. He last ate at noon today. On assessment in the ED: He is HDS, on RA and in no distress. He endorses no complaints. Past Medical History: Patient Active Problem List Diagnosis Date Noted ??? Pacemaker complications, initial encounter 07/30/2020 ??? Near syncope 07/30/2020 ??? Pacemaker - dual lead Medtronic 07/29/2020 ??? Pacemaker battery depletion 07/28/2020 ??? Chronic bullous emphysema 11/18/2016 ??? Clostridium difficile colitis 11/07/2016 ??? Encounter for screening colonoscopy 11/07/2016 Past Medical History: Diagnosis Date ??? C. difficile colitis ??? COPD (chronic obstructive pulmonary disease) ??? Emphysema of lung ??? Hemorrhoid ??? Pneumothorax on left Past Surgical History: Bladder tumor removed at [facility] (denies prior radiation/chemotherapy) L groin hernia repair Past Surgical History: Procedure Laterality Date ??? AORTIC VALVE REPLACEMENT 1998 ??? CARDIAC VALVE REPLACEMENT 1983 Aortic Valve ??? CARDIAC VALVE REPLACEMENT 1998 Mechanical Aortic and Mitral ??? HERNIA REPAIR ??? MITRAL VALVE REPLACEMENT 1998 ??? PRO COLONOSCOPY, REMV LESN, SNARE N/A 01/26/2017 COLONOSCOPY, POLYPECTOMY, REMOVAL LESION BY SNARE (WRVU 4.67) performed by Lena Clark MD at [facility] Medications: No outpatient medications have been marked as taking for the 03/05/21 encounter (Hospital Encounter). Allergies: No Known Allergies Family History: Non-contributory Social History: 20 year pack history, quit early Denies alcohol use Walks 4 miles/day and is an avid golfer Social History Socioeconomic History ??? Marital status: Spouse name: Not on file ??? Number of children: Not on file ??? Years of education: Not on file ??? Highest education level: Not on file Occupational History ??? 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 Smoking status: Former Smoker Packs/day: 1.00 Years: 35.00 Pack years: 35.00 ??? Smokeless tobacco: Former User Quit date: 1982 Substance and Sexual Activity ??? Alcohol use: Yes Alcohol/week: 5.0 standard drinks Types: 5 Glasses of wine per week ??? Drug use: No ??? Sexual activity: Not on file Other Topics Concern ??? Not on file Social History Narrative ??? Not on file Social Determinants of Health Financial Resource Strain: ??? Difficulty of Paying Living Expenses: Food Insecurity: ??? Worried About Running Out of Food in the Last Year: ??? Ran Out of Food in the Last Year: Transportation Needs: ??? Lack of Transportation (Medical): ??? Lack of Transportation (Non-Medical): Physical Activity: ??? Days of Exercise per Week: ??? Minutes of Exercise per Session: Stress: ??? Feeling of Stress : Social Connections: ??? Frequency of Communication with Friends and Family: ??? Frequency of Social Gatherings with Friends and Family: ??? Attends Sikhism Services: ??? Active Member of Clubs or Organizations: ??? Attends Club or Organization Meetings: ??? Marital Status: Intimate Partner Violence: ??? Fear of Current or Ex-Partner: ??? Emotionally Abused: ??? Physically Abused: ??? Sexually Abused: Review of Systems: Patient denies issues with kidneys/liver/bleeding/anesthesia, fevers, chills, sweats, weight loss, fatigue, headaches, dizziness, lightheadedness, changes in vision or hearing, chest pain, palpitations, orthopnea, cough, productive cough, hemoptysis, dyspnea, [place], pleurisy, wheezing, sore throat, dysphagia, odynophagia, nausea, vomiting, hematemesis, abdominal pain, constipation, diarrhea, paresthesias, cyanosis, edema. Vitals: Temp: [36.6 ??C (97.9 ??F)] Heart Rate: [80] Resp: [18] BP: (120-145)/(65-84) SpO2: [95 %-96 %] Heart Rate from SpO2: [71 bpm-74 bpm] Wt & BMI By Encounter Date ED from 03/05/2021 in Emergency Department [facility] Office Visit from 08/10/2020 in [place] [facility] [place] 77.1 kg (170 lb) 1 03/05/2021 1513 81.6 kg (180 lb) 1 08/10/2020 1003 BMI 22.43 1 03/05/2021 1513 23.75 1 08/10/2020 1003 Physical Exam: Gen: NAD, pleasant, sitting in bed HEENT: normocephalic, atraumatic, EOMI, sclerae anicteric Neck: supple, trachea midline Card: Regular rate. Systolic clicking murmur Pulm: bilateral breath sounds apically. non-labored breathing on RA, L CT to suction with 3-4 column continuous airleak appreciated Ext: warm, dry, no edema Neuro: A&Ox3, CN II-XII grossly intact, nonfocal, conversant I/O: No intake/output data recorded. Labs: No results found for this or any previous visit (from the past 72 hour(s)). Diagnostics: CXR 03/05/21: per my read proper positioning of L CT, large persistent ptx lateral and basilar Assessment: London Neri is a 70 y.o. male with PMHx significant forrecurrent spontaneous pneumothorax, CHF, mitral and aortic mechanical valves (on coumadin) who presents for surgical treatment of recurrent spontaneous left pneumothorax. He is hemodynamically stable, on RA with L chest tube in place. Will plan for OR today versus tomorrow pending INR. Plan: 1. Admit to thoracic surgery 2. Obtain INR and coag panel 3. NPO 4. mIVF 5. OR for VATS blebectomy and pleurodesis All plans formulated in discussion with and directed by attending thoracic surgeon Dr. Khalil. Ashanti May MD 03/05/2021 Thoracic Surgery Service Pager [phone] documented in this encounter ED Notes * Ruma Kumar RN - 03/05/2021 7:09 PM EDT Pt O2 sats decrease when pt lying in bed. Boosted up in bed independently. O2 sats remained at 89. Pt placed on communications specialist at 2l/min. Pt then at 97% on communications specialist. Silviculture Teacher removed after 2 mins and maintaing O2 sats at 90on RA. * Ruma Kumar RN - 03/05/2021 5:21 PM EDT BP cuff repositioned. Pt resting comfortably in bed. BP 112/81, P70, O2 92%. * Ruma Kumar RN - 03/05/2021 3:32 PM EDT Pt chest tube intact. Dressing dry. Pt reports has had fluid drained off left side at least 4 times. Diminished sounds LLL. Good pink skin & cap refill <3 secs. Feels dizzy when using the lung exercise machine, feel short of breath without the chest tube. * Melanie Bundy, RN - 03/05/2021 3:[address] attached to suction and has an air leak, MDs at beside, pt given call ball, able to speak complete sentences and appears in no distress * Kenneth Newby MD - 03/05/2021 3:15 PM EDT Emergency Department Attending Note Chief Complaint: left ptx HPI: 70 y.o. male with a history of a pacemaker and recurrent left-sided pneumothoraces presents intransfer to the emergency department for the thoracic surgery service for a recurrent left-sided pneumothorax. Symptomatic approximately 4 days ago with dyspnea. Presented today a pigtail catheter was placed and pneumothorax confirmed on x-ray. There is been a blowing air leak ever since. His shortness of breath has not significantly changed and he otherwise feels stable. No chest pain, no abdominal pain, no fevers chills or other infectious symptoms. No recent falls or trauma. Last oral intake 12pm today. Last coumadin last night. INR 1.5 on 03/03 I reviewed the medications, allergies, medical, surgical and social history in EDH. ROS: Gen: No fevers or chillls Eyes: No blurred vision HENT: No rhinorrhea, no hearing loss, no sore throat Cardiac: No chest pain Respiratory: +dyspnea GI: No abdominal pain, nausea or vomiting : No dysuria Skin: No rashes Neuro: No headache MSK: No joint pains. Physical Exam: Last value Range last 24 hrs Temperature Temp: 36.6 ??C (97.9 ??F) Temp: [36.6 ??C (97.9 ??F)] Heart Rate Heart Rate: 80 Heart Rate: [80] Blood Pressure BP: 125/66 BP: (125)/(66) Respiratory Rate Resp: 18 Resp: [18] SpO2 SpO2: 96 % SpO2: [96 %] Art BP BP (Arterial Line): -- Gen: NAD HENT: NCAT, MMM CV: Regular rate, rhythm Pulmonary: absent breath sounds on the left, CXT appears in place. 3-4+ air leak on -[id number] Abd: Soft, non tender MSK: No peripheral edema Skin: Warm and Dry Neuro: Alert, oriented, no gross focal deficits. ED Course: Received hand off from EMS Stable CXT to suction Thoracic surgery paged and we discussed the case at 3:18pm. Labs, covid, NPO status ordered Assessment: 70 y.o. male with a history of recurrent pneumothoraces presents with nonexpanding pneumo with pigtail catheter that appears to be in adequate position. Accepted by thoracic surgery service and is currently stable. Repeating labs, INR, type and screen and Covid for screening. Low clinical suspicion for Covid or other infectious etiologies. We will keep chest tube on suction and await further recommendations from our thoracic surgery team. MD [place] Matthew A, MD 03/05/21 1522 * Willi Meléndez DO - 03/05/2021 11:19 AM EDT EM attending brief transfer acceptance note: London Neri is a 70 y.o. who I accepted in transfer from OSH The patient will be evaluated in the Emergency Department for known ptx with low o2 saturation and not expanding with pigtail in place. Pt is stable. Dr. Khalil special forces communications sergeant and will admit and take pt to OR from ED. Pt needs vats and possible resection. The EM team will contact the Thoracic Surgery team as needed The OSH does not agree to take the patient back in transfer after our evaluation and treatment. Transfer and stabilization prior to transfer were not discussed Willi Meléndez DO 03/05/21 1121 documented in this encounter Miscellaneous Notes * Plan of Care - Shauna Morillo RN - 03/12/2021 6:23 PM EDT OUTCOME EVALUATION NOTE: OUTCOME SUMMARY: Pt is A&O, Pt ambulate short distance x2. SOB on exertion, recovered quickly. Chest Tube clamped most of shift, now to waterseal. Possible it will be pulled tomorrow. Pt rec'd 1 unit of RBCs thisshift. Pt had large and small BM this shift (soft, formed, dark brown). Pt's goldsmith maintained with adequate output. No acute events, [facility] PLAN MOVING FORWARD: D/C Planning INDIVIDUALIZED FALL PREVENTION INTERVENTIONS: Patient-specific fall risk factors per assessment: [current deficits]: Goldsmith, chest tube Assistance [level of assistance required for transfers and ambulation]: 1A w/walker Supervision [direct monitoring required during toileting and ADLs]: Within Reach Surveillance [continuous indirect monitoring]: Purposeful hourly rounding, call harris within reach, room near nurses station Patient-specific fall prevention interventions for sensory deficits provided, if applicable: N/A CPG GOAL OUTCOME EVALUATION: * Plan of Care - Jodie Mojica RN - 03/11/2021 3:08 PM EDT OUTCOME EVALUATION NOTE: OUTCOME SUMMARY: PT OOB x3 TODAY W/ WALKER and SBA. TOLERATED WELL, DID HAVE AN EPISODE OF DESAT TO 85% AND FELT SLIGHTLY SOB - RECOVERED WITH REST. ORTHOSTATIC BP'S DONE AT 1030 - NO SIGNIFICANT CHANGES. PT REPORTS DIZZINESS WITH INITIAL MOVEMENT BUT DOES RECOVER EASILY. PAIN CONTROLLED W/ SCHEDULED TYLENOL. POSTERIOR CHEST TUBE DC'D BY THORACIC TEAM TODAY. ANTERIOR CHEST TUBE TO -20 WATER SEAL. GOLDSMITH CATH IN PLACE DRAINING ADEQ AMNTS C/Y URINE. TELE VPACED, RATE 60-70'S. PLAN MOVING FORWARD: 1. MONITOR AND RECORD VS AND I/O 2. MONITOR CHEST TUBE OUTPUT AND RECORD 3. MONITOR RESP STATUS 4. ENCOURAGE INDEPENDENCE TOLERATED 5. AMBULATE QID TOLERATED INDIVIDUALIZED FALL PREVENTION INTERVENTIONS: ? Patient-specific fall risk factors per assessment: [current deficits]:?Patient has 2 or more active diagnosis, recent surgery, has an actively infusing IV line, uses an ambulatory aid, has generalized weakness (or impairment), tubes/drains, pain, opioids for pain, and has sensory deficits ? Assistance [level of assistance required for transfers and ambulation]:?SBA w FWW ? Supervision [direct monitoring required during toileting and ADLs]:?? SBA W/ FWW ? Surveillance [continuous indirect monitoring]:?Bed/chair alarm, yellow fall band, NKE at bedside, purposeful rounding, environmental modification (floor free of clutter, tubing secured), bed in low position, lightening adjusted for task/safety, nonskid slippers when out of bed, wheels locked, call light in reach, upper side-rails raised X2, ID band on. ? Patient-specific fall prevention interventions for sensory deficits provided, if applicable: ? CPG GOAL OUTCOME EVALUATION: * Care Management - Vanessa Anne RN - 03/11/2021 10:58 AM EDT OFFICE OF CARE MANAGEMENT PROGRESS NOTE LOS: Hospital Day 6 days Chart reviewed, care reviewed with primary team and at interdisciplinary rounds. Patient continues to meet inpatient level of care related to: Plan to pull 1 chest tube today , no air Leaks , will gohome on lovenox per team . Functional status prior to admission: Independent Home Environment: People in home: spouse. Current Living Arrangements: home/apartment/condo. Accessibility Concerns: . Current Functional Ability: Independent with some restrictions due to tubes DME used at home: none Patient is insured through: Primary Insurance: MEDICARE Payor: MEDICARE / Plan: MEDICARE PART A & B / Product Type: *No Product type* / Secondary Insurance: [facility] Prescription Coverage: Yes Preferred Pharmacy: No Pharmacies Listed Last Physical Therapy Recommendation: (home with assistance and services TBD) with (likely none) Last Occupational Therapy Recommendation: home with supervision, home with supervision - [id number] Plan for discharge is: Home no needs Plan going forward: CM will continue to follow and assist with discharge planning and coordination of care as indicated. Anticipated Date of Discharge: 03/15/2021 Vanessa Anne information systems security analyst Office of Care Management * Plan of Care - Lexie Cordova - 03/11/2021 6:00 AM EDT OUTCOME EVALUATION NOTE: OUTCOME SUMMARY: x2 CT to (L) side draining minimal serosang, maintained to atrium x2 with -20 water seal with continuous wall suction. CT insertion site dsgs x2 CDI. Independently performing IS. Goldsmith in place draining CYU. Tele continued, V paced, no events. Endorsing no pain at this time. BM this shift. Sleepingbetween care, care clustered. Will continue to monitor. PLAN MOVING FORWARD: Ambulate Monitor VS I/O's CT x2 Goldsmith Tele D/c planning INDIVIDUALIZED FALL PREVENTION INTERVENTIONS: High Fall Risk Patient-specific fall risk factors per assessment: [current deficits]: Generalized weakness, intermittent hypotension, overestimates abilities, x2 CT, Goldsmith, IV, h/o falling Assistance [level of assistance required for transfers and ambulation]: 2A FWW/stand pivot Supervision [direct monitoring required during toileting and ADLs]: Hands on Surveillance [continuous indirect monitoring]: Tele, masimo, purposeful rounding, nurse knowledge exchange, bed/chair alarm Patient-specific fall prevention interventions for sensory deficits provided, if applicable: [X] N/A * Plan of Care - Gary Rodríguez, RN - 03/10/2021 2:16 AM EDT [place] has denied feelings of pain this shift. Continues with 2 left sided chest tubes to LCWS. Continues with goldsmith having good output. Stated this evening when getting from chair back into bed that his dizziness and nausea were minimal Is hopefult that hew'll beable to walk in the morning without becoming dizzy and weak. On tele running V paced. Has been sleeping between care with call light andpersonal items within reach. Problem: Adult Behavioral Health Plan of Care Goal: Plan of Care Review Outcome: Ongoing (Interventions Implemented as Appropriate) Flowsheets (Taken 03/10/2021 021) Plan of Care Reviewed With: patient Progress: improving Goal: Patient-Specific Goal (Individualization) Outcome: Ongoing (Interventions Implemented as Appropriate) Goal: Adheres to Safety Considerations for Self and Others Outcome: Ongoing (Interventions Implemented as Appropriate) * Care Management - Vanessa Anne RN - 03/09/2021 2:04 PM EDT OFFICE OF CARE MANAGEMENT PROGRESS NOTE LOS: Hospital Day 4 days Chart reviewed, care reviewed with primary team and at interdisciplinary rounds. Patient continues to meet inpatient level of care related to: Went to OR today due to bleed L-Vats done clot evacuatedand 2 chest tubes placed . Functional status prior to admission: Independent Home Environment: People in home: spouse. Current Living Arrangements: home/apartment/condo. Current Functional Ability: Assist of 2 prior to surgery DME used at home: none DME Needed at DC: TBD Patient is insured through: Primary Insurance: MEDICARE Payor: MEDICARE / Plan: MEDICARE PART A & B / Product Type: *No Product type* / Secondary Insurance: [facility] [facility] Prescription Coverage: yes Preferred Pharmacy: No Pharmacies Listed Plan for discharge is: TBD Plan going forward: CM will continue to follow and assist with discharge planning and coordination of care as indicated. Anticipated Date of Discharge: 03/12/2021 Vanessa Anne RN Case Lpn of Care Management Phone [phone] * Brief Op Note - Ashanti May MD - 03/09/2021 11:22 AM EDT Brief Operative Note Patient Name: [place] Neri : [id number] MR#: [id number] Case Date: 03/09/2021 Surgeon: Surgeon(s) and Role: * Kendall Khalil MD - Primary * Ashanti May MD - Resident Preoperative diagnosis: bleeding Postoperative diagnosis: bleeding Procedure(s) (LRB): @THORACOTOMY WEXPL,CONTROL BLDNG (WRVU 25.28) (Left) @THORACOSCOPY, SURG; W PART. DECORTICATION (WRVU 18.78) (Left) Anesthesia: General Local Findings: L VATS, 1.5L clot evacuated. No area of active bleeding. Irrigated chest. 2 chest tubes. Complications: none Estimated Blood Loss: 10 mL * No values recorded between 03/09/2021 9:20 AM and 03/09/2021 11:18 AM * Specimens removed during surgery: * No orders in the log * Fluids: Intraprocedure Crystalloid Total None PRBCs: none (See Anesthesia Record/Report for Other Blood Products) Urine Output: (no urine output recorded) Drains: 2 28Fr chest tubes, to -20 suction Disposition: awakened from anesthesia, extubated and taken to the recovery room in a stable condition, having suffered no apparent untoward event. Condition: doing well without problems (Please see the Surgical Encounter Summary for any Implant and Specimen details pertinent to this patient.) Infection Bundle used? No * Op Note - Kendall Khalil MD - 03/09/2021 9:20 AM EDT Preoperative diagnosis: Hemothorax with active bleeding Postoperative diagnosis: Hemothorax with active bleeding Procedure: Bronchoscopy, left VATS, partial decortication, evacuation of hemothorax and control of bleeding. 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 Patient has both an aortic and mitral mechanical valves in place and anticoagulation was started approximately 36 hours after surgery to reduce the risk of embolicstroke. Overnight the patient became hypotensive and a chest x- ray showed he had increased effusionon the left side with a drop in his hemoglobin, consistent with bleeding in his left chest. His heparin has been stopped but unfortunately persisted with hypotension and needed to be brought to the operating room urgently. Operative findings: Approximately 1.5 L of blood in the left chest cavity, active bleeding noted near the inferior pulmonary vein coming from pericardial fat. No other obvious bleeding source. Partial decortication required to remove all of the clot and blood within the chest cavity. Operative dictation: After consent was obtained, the patient was brought urgently to the operating room placed in the supine position. Double-lumen endotracheal anesthesia was administered without any difficulty, timeout was performed and a P1 90 Olympus bronchoscope was advanced. His right side was normal with minimal secretions but on the left side he had some thicker secretions including blood. These were evacuated. Given these findings, we are able to proceed on with the planned operation. The patient was positioned in the right lateral decubitus position with the left arm position to reduce any injury to the brachial plexus. Sterile prep and drape are done usual fashion after the chesttube was removed and a lung isolation was performed. A 12 mm port placed placed through his chest tube site and we advanced the scope and gas insufflation to 10 mmHg was performed. We noted blood throughout the majority the chest cavity, some of which was liquefied most of which was clot. There is a significant clot burden along the mediastinum where the majority of our dissection was performed at his previous operation. We opened up his 2 other incisions and placed 12 m ports through these andstarted decortication removing the clot some of which was densely adherent to the underlying tissue. We ultimately were able to dissect the lung off of all the clot and get the majority of the clot off the mediastinum and found active bleeding near the inferior pulmonary vein coming from what appeared to be pericardial fat near the phrenic nerve. This was controlled with electrocautery. The othersurfaces were oozing and we used the [place] water bipolar cautery to obtain hemostasis throughout the entire mediastinal dissection. We then performed a partial decortication the upper lobe to remove the remaining clot to allow for full reexpansion of the lung. The chest cavity was irrigated with approximately 6 L of saline during the procedure of which was evacuated. At the end of the proced ure 2 L was irrigated into the chest cavity and left in place and there is no active sites of bleeding. This was then evacuated and 2 chest tubes were placed, one in the posterior apical position andone in the anterior apical position. The ports were then removed and there is no bleeding at the port sites. The lung was inflated under direct visualization inflated completely to fill the chest cavity and he had no air leak at the end of the procedure. The wounds were then closed in layers with 2-0 Vicryl for the deep layer, 3-0 Vicryl for dermal layer and 4 Monocryl for running subcuticular. Steri-Strips and sterile dressings were placed on the wounds. Chest tubes were secured to the chest wall with 0 silk suture attached to Pleur-evac drainage. The patient was woken from anesthesia, extubated brought to recovery in stable condition. I was present for the entire procedure and dictated this operative note. Kendall Khalil MD * Plan of Care - Gary Rodríguez RN - 03/09/2021 2:59 AM EDT [place] has denied feelings of pain this shift. Continues with chest tube to LCWS. Continues with goldsmith having good output. Stated he felt to dizzy to walk this evening. On tele running V paced. Has been sleeping between care with call light and personal items within reach. Problem: Adult Behavioral Health Plan of Care Goal: Plan of Care Review Outcome: Ongoing (Interventions Implemented as Appropriate) Flowsheets (Taken 03/09/2021 0259) Plan of Care Reviewed With: patient Progress: improving Goal: Patient-Specific Goal (Individualization) Outcome: Ongoing (Interventions Implemented as Appropriate) Goal: Adheres to Safety Considerations for Self and Others Outcome: Ongoing (Interventions Implemented as Appropriate) * Plan of Care - Remigio Gómez RN - 03/08/2021 8:00 PM EDT OUTCOME EVALUATION NOTE: OUTCOME SUMMARY: Patient ax4, denies n/t. Endorses chest pain r/t chest tube that is unchanged, SOB, nausea intermittent. Pain controlled with scheduled and prn meds, see mar. Patient sustained a fall while on the bedside commode this afternoon. Patient had developed a small cut and localized swelling on the frontal aspect of head d/t fall. Staff was with patient at time of fall but could not catch patient in time. See fall note for further information. Neuro checks after fall were benign, patient mentating thesame as before fall. Patient was increasingly dizzy while fall occurred and after occurring. Patient unable to tolerate sitting at side of bed without getting very dizzy and did not want to get up into chair or walk around with staff at 1800. Goldsmith pulled, patient retaining urine, new goldsmith placed. PLAN MOVING FORWARD: Pain control Mobilize 2 staff members with patient while out of bed D/c planning INDIVIDUALIZED FALL PREVENTION: Patient is currently a high risk to Fall. Patient educated on bed/chair alarm, demonstrates proper use of call harris and verbalizes understanding of fall preventions implemented. Patient-specific fall risk factors per assessment: [current deficits]: dizziness, Pain, Medications, Hospital Environment. Assistance [level of assistance required for transfers and ambulation]: ax2 w/ gait belt and chair follow Supervision [direct monitoring required during toileting and ADLs]: moderate assistance with ADL's Surveillance [continuous indirect monitoring]: bed/chair alarm, Masimo, Purposeful Rounding, Nurse Knowledge Exchange Patient-specific fall prevention interventions for sensory deficits provided, if applicable: n/a * Initial Assessments - Freya Cedeño MSW - 03/08/2021 1:21 PM EDT Office of Care Management Initial Assessment NIRMALA Khan reviewed record and discussed patient with Care Team. Source of Information: Team, medical record, and Patient, Spouse/Significant Other. Introduced self/reviewed role with pt; pt not feeling well and stated that DRY YARD WORKER could call . MSWleft voicemail for . Reason for Hospitalization: They repaired my left lung. Last COVID test: 03/05/21 1552 not detected Lab Results Component Value Date [id number] Not Detected 03/05/2021 Past medical History: Past Medical History: Diagnosis Date ??? C. difficile colitis ??? COPD (chronic obstructive pulmonary disease) ??? Emphysema of lung ??? Hemorrhoid ??? Pneumothorax on left Hospitalizations Within the Past 30 Days: other (see comments) (admitted to [facility] on 03/03, [place] [facility] Current Decision-Making Capacity: Self Advance Care Planning: Attempt Cardiopulmonary Resuscitation - Inpatient Received -Advanced Directive: Yes, on file AD in eDH. Names Meredith Villarreal ([phone], ) as primary agent; names Loco Odell ([phone], , ) as secondary agent Current Functional Ability: Assistive Equipment and Assistive Person Functional Status Prior to Admission: Independent; H&P indicates that pt walks daily and is an avid golfer Home Environment: People in home: spouse. Current Living Arrangements: home/apartment/condo. Accessibility Concerns: . Pt states he lives with his , and reports there are not many stairs to enter the home Current DME: none Home Address confirmed as: [address] [facility] [address] Social & Family Supports: DRY YARD WORKER left voicemail for pt's at home number; DRY YARD WORKER phone call to mobile number and recording states that it is not in service Extended Emergency Contact Information Primary Emergency Contact: Meredith Villarreal [facility] Mobile Relation: Spouse Current Care Provided by: self, spouse/significant other Provides Primary Care For: no one Caregiver if needed: spouse Quality of Family relationships: helpful, involved, supportive, unable to assess (left voicemail for ) Community Resources being provided currently: Behavioral Health History: Substance Use/Abuse: (by chart review) Social History Tobacco Use Smoking Status Former Smoker ??? Packs/day: 1.00 ??? Years: 35.00 ??? Pack years: 35.00 Substance Use Screen In the past year have you used an illegal drug or used a prescription medication for non-medical reaons?: No In the past year have you used opioids (oxycodone, Vicodin, heroin, fentanyl, buprenorphine, methadone, etc.) for non-medical reasons?: No unable to assess due to pt's discomfort and requiring nursing care Alcohol Use Screen In the past year have you had 5 or more drinks a day containing alcohol?: No unable to assess due to pt's discomfort and requiring nursing care Other Pertinent/Service Specific Information: Health/Prescription Coverage: Primary Insurance: MEDICARE Payor: MEDICARE / Plan: MEDICARE PART A & B / Product Type: *No Product type* / Secondary Insurance: [facility] Prescription Coverage: yes Preferred Pharmacy: unable to assess No Pharmacies Listed [place] Status: Patient is a : No, registration status: at at %. Primary Care Provider: Linda Mccray MD [phone] Tirso Ghosh ([phone]) as PCP - need to clarify with pt/ Patient/Caregiver Goals of Treatment: unable to assess due to pt's discomfort and need for nursing care Potential Needs for Transition of Care: none Agency Referrals: no referrals placed at this time, discharge plan TBD Transportation: family or friend will provide Concerns to be Addressed: no discharge needs identified, discharge planning plan TBD Assessment: Patient is admitted to Thoracic service for recurrent pneumothorax, s/p left VATS partial decortication. Plan: Patient with no apparent RNCM/SW needs at this time. No housing, transportation, insurance, resources concerns identified at this time. Supports in place to achieve a safe post-hospital transition. No identified barriers to accessing necessary care and/or follow-up after discharge. DRY YARD WORKER attempted to meet with pt on [facility]; pt reporting that he is not feeling well. Able to answer only a few questions before asking for his nurse. Based on chart review, pt had recently syncopal episode with +headstrike. DRY YARD WORKER phone call to pt's to complete IA. Left a voicecmail asking for call back. [place] [facility] [place] [place] - will address with when call back is received. A member of the Care Management team will continue to monitor progress, follow for continuity of care and assist with transition of care planning. NIRMALA Khan Armor Reconnaissance Vehicle CrewmanLpn of Care Management Pager: [phone] * Plan of Care - Gary Rodríguez RN - 03/08/2021 1:49 AM EDT [place] has denied feelings of pain this shift. Continues with chest tube to LCWS. MD came by to see drainage. Stated chest tube out put looked more bloody. Will have xray in the morning. Continues with goldsmith having good output. Has been sleeping between care with call light and personal items withinreach. Problem: Adult Behavioral Health Plan of Care Goal: Plan of Care Review 03/08/2021148 by Gary Rodríguez, RN Outcome: Ongoing (Interventions Implemented as Appropriate) 03/08/2021148 by Gary Rodríguez, RN Flowsheets (Taken 03/08/2021148) Plan of Care Reviewed With: patient Progress: improving Goal: Patient-Specific Goal (Individualization) Outcome: Ongoing (Interventions Implemented as Appropriate) Goal: Adheres to Safety Considerations for Self and Others Outcome: Ongoing (Interventions Implemented as Appropriate) * Plan of Care - Nancy Salcido RN - 03/07/2021 6:12 AM EDT OUTCOME EVALUATION NOTE: OUTCOME SUMMARY: Patient has rested comfortably between care throughout the shift. Patient reports numbness from nipple line to waist on the left side of his chest, MD notified, pt reassured that this is a normal post op finding. Lung sounds dim on left side. Chest tube intact to LCWS with serosanguinous drainage, air leak still present. Band aid to left chest with small amount drainage, band aidsx 2 to left backintact. Goldsmith in place for retention, draining clear, yellow urine. Patient placed on 2 L NC for sat at 88% with good effect, O2 sat now 95%, will attempt to wean this am. Patient ambulated in morel x1 last evening. PLAN MOVING FORWARD: Pain control, ambulate, monitor chest tube, d/c planning INDIVIDUALIZED FALL PREVENTION INTERVENTIONS: Patient-specific fall risk factors per assessment: [current deficits]: Surgery, pain, tubes/drains,hospital environment Assistance [level of assistance required for transfers and ambulation]: SBA with walker Supervision [direct monitoring required during toileting and ADLs]: Eyes on, min/mod assist with ADL's Surveillance [continuous indirect monitoring]: Purposeful rounding, Masimo, bed alarm for safety Patient-specific fall prevention interventions for sensory deficits provided, if applicable: [X] Yes CPG GOAL OUTCOME EVALUATION: * Brief Op Note - Kota Leyva MD - 03/06/2021 11:58 AM EDT Brief Operative Note Patient Name: [place] Neri : [id number] MR#: [id number] Case Date: 03/06/2021 Surgeon: Surgeon(s) and Role: * Kendall Khalil MD - Primary * Kota Leyva MD - Resident Preoperative diagnosis: left spontaneous pneumothorax Postoperative diagnosis: left spontaeous pneumothorax Procedure(s) (LRB): @THORACOSCOPY, SURG; W/RESC-PLICATION EMPHYSEMATOUS LUNG, UNILATERAL (WRVU 27) (Left) @THORACOSCOPY, SURG; W PLEURODESIS (WRVU 10.83) (Left) BRONCHOSCOPY, DIAGNOSTIC (WRVU 2.78) (Left) @THORACOSCOPY, SURG; W PART. DECORTICATION (WRVU 18.78) (Left) Anesthesia: General Findings: -L VATS partial decortication, blebectomy, talc pleurodesis -Large rupture bullae encountered anteriorly on the left upper lobe, which was completely removed with serial staple fires with seam guard -Air leak 1 column intermittent in OR off PPV Complications: -none Estimated Blood Loss: 100 mL * No values recorded between 03/06/2021 9:34 AM and 03/06/2021 11:44 AM * Specimens removed during surgery: Order Name Source Comment Collection Info Order Time SPECIMEN TO PATHOLOGY left spontaneous pneumothorax bullectomy left lung excision 03/06/2021 10:56 AM Time specimen removed from patient: 10:56 AM Number of tissue samples (in container) 1 Fluids: Intraprocedure Crystalloid Total None PRBCs: none (See Anesthesia Record/Report for Other Blood Products) Urine Output: (no urine output recorded) Drains: 28F chest tube directed apically and posteriorly Disposition: awakened from anesthesia, extubated and taken to the recovery room in a stable condition, having suffered no apparent untoward event. Condition: doing well without problems (Please see the Surgical Encounter Summary for any Implant and Specimen details pertinent to this patient.) Infection Bundle used? N/A Kota Leyva MD 03/06/2021 11:59 AM * Op Note - Kendall Khalil MD - 03/06/2021 9:34 AM EDT Preoperative diagnosis: Recurrent spontaneous left pneumothorax Postoperative diagnosis: Recurrent spontaneous left pneumothorax Procedure: Bronchoscopy, left VATS, partial decortication, resection of emphysematous lung, talc pleurodesis. Operative indications: This is a 70-year-old male with a history of emphysema and left spontaneous pneumothorax. He presented to an outside hospital with his third episode this year and a pigtail catheter was placed with a persistent large volume air leak. [place] [facility] [place] of his recurrent spontaneous pneumothorax and large air leak. Operative findings: Significant adhesions of the upper lobe to the chest wall and mediastinum requiring a partial decortication. Identification and preservation of the phrenic nerve. Large (2.5 cm) hole in the lung parenchyma identified as the ruptured bleb, chronic in nature. Resection of emphysematous lung performed with an intermittent single column airleak noted after surgery complete. Operative dictation: After consent was obtained, the patient was marked, brought to the operating room placed in the supine position. Double-lumen endotracheal anesthesia was administered with any difficulty, timeout was performed and a P1 90 Olympus bronchoscope was advanced. He had moderate thinner secretions bilaterally with normal anatomy and no endobronchial lesions. Given these findings, weare able to proceed on with the planned operation. The patient was placed in the right lateral decubitus position with the left arm position to reduce any injury to the brachial plexus. After lung isolation was performed the pigtail catheter was removed and sterile prep and drape are done usual fashion. Timeout was performed again and prior to making any incision 0.5% Marcaine was instilled each incision site. An 8 mm incision was performed in the seventh interspace in the posterior axillary line through which a 5 mm trocar was advanced. The camera was advanced he was noted to have significant pneumothorax with the majority of the upper lobe scarred to the mediastinum and chest wall. Intercostal blocks using Exparel was performed over 8 levels under direct visualization. We then placed 2 other 11 mm ports and started by inspecting the chest cavity. He did not have a pleural effusion or any pleural disease noted except for his adhesions to the upper lobe. We then performed a partial dec ortication, removing the lung off the lateral chest wall as well as the mediastinum. We identified the phrenic nerve and had to dissect the lung off the phrenic nerve completely. Given his anticoagulation status, the aqua mantis was used for hemostasis throughout the chest cavity. Once we dissectedthe majority of the upper lobe off of the mediastinum, we found a large hole in one of his blebs which appeared chronic in nature and was most likely the source of his persistent air leak. After fully mobilizing the entire upper lobe we lifted up the majority of his emphysematous portion of the upper lobe and resected it, along with a large hole in the upper lobe, with multiple firings of tristaple purple load with seam guard. This was removed through one of the 11 mm ports using an anchor bag.Irrigation was performed to the entire chest cavity and hemostasis was ensured, meticulously. We then performed talc pleurodesis covering all the visceral and parietal pleural surfaces completely. A chest tube was placed through one of the 11 mm ports into the chest cavity and pulled out through the 5 mm port. This was then placed in the posterior apical position. The ports were then removed under direct visualization there is no bleeding at the port sites. The lung was inflated under direct visualization inflated completely to fill the chest cavity. Hemostasis was then ensured again at all th e port sites and then they were closed in layers with 2-0 Vicryl for the deep muscle layer, 3-0 Vicryl for dermal layer and Dermabond for the skin. Chest tube was secured to the chest wall with 0 silk suture and attached to Pleur-evac drainage. He had a 1 column intermittent air leak off positive pressure ventilation at the end of the procedure. Patient was then woken from anesthesia, extubated brought to recovery in stable condition. I was present for the entire procedure and dictated this operative note. Kendall Khalil MD * Plan of Care - Nancy Salcido RN - 03/06/2021 5:09 AM EDT OUTCOME EVALUATION NOTE: OUTCOME SUMMARY: Patient has rested between care since arrival to unit. Patient denies pain, but endorses mild SOB from pneumothorax. Chest tube to left chest dressing clean and dry, reinforced with tape, connectionstaped prior to arrival. Otherwise skin appears intact. Patient voiding adequate amounts in urinal. Awaiting results of coags drawn this am to determine surgical plan. NPO for possible OR today PLAN MOVING FORWARD: Possible OR, pain control if needed, maintain CT to suction INDIVIDUALIZED FALL PREVENTION INTERVENTIONS: Patient-specific fall risk factors per assessment: [current deficits]: Tubes/wires, altered mobility, hospital environment Assistance [level of assistance required for transfers and ambulation]: SBA Supervision [direct monitoring required during toileting and ADLs]: Eyes on, minimal assist with ADL's Surveillance [continuous indirect monitoring]: Purposeful rounding, Masimo, Bed alarm for safety Patient-specific fall prevention interventions for sensory deficits provided, if applicable: [X] N/A CPG GOAL OUTCOME EVALUATION: documented in this encounter Plan of Treatment Pending Results Name Type Priority Associated Diagnoses Date /Time Transfuse RBC Blood Bank Routine 03/12/2021 3:15 PM EDT documented as of this encounter Procedures Procedure Name Priority Date/Time Associated Diagnosis Comments XR CHEST PA AND LATERAL STAT 03/13/2021 11:58 AM EDT XR CHEST PA AND LATERAL Routine 03/13/2021 6:11 AM EDT HEMOGRAM Routine 03/13/2021 3:47 AM EDT DIFFERENTIAL, AUTOMATED Routine 03/13/2021 3:47 AM EDT GREEN TUBE HOLD Routine 03/13/2021 3:47 AM EDT HC PROTHROMBIN TIME Routine 03/13/2021 3 :47 AM EDT HC CBC,PLT & AUTO DIFF Routine 3:47 AM EDT HC PROTHROMBIN TIME Routine 03/12/2021 6 :12 PM EDT XR CHEST PA AND LATERAL Routine 03/12/2021 2:45 PM EDT TYPE AND SCREEN VALIDITY STAT 03/12/2021 12:10 PM EDT ABORH RECHECK STATUS STAT 03/12/2021 12:10 PM EDT ABO/RH TYPING STAT 03/12/2021 12:10 PM EDT ANTIBODY SCREEN STAT 03/12/2021 12:10 PM EDT HC VENIPUNCTURE STAT 03/12/2021 12:10 PM EDT PREPARE RBC Routine 03/12/2021 10:45 AM EDT HEMOGRAM Routine 03/12/2021 8:31 AM EDT DIFFERENTIAL, AUTOMATED Routine 03/12/2021 8:31 AM EDT GREEN TUBE HOLD Routine 03/12/2021 8:31 AM EDT HC VENIPUNCTURE Routine 03/12/2021 8:31 AM EDT HEMOGRAM STAT 03/11/2021 12:48 PM EDT DIFFERENTIAL, AUTOMATED STAT 03/11/2021 12:48 PM EDT HC CBC,PLT & AUTO DIFF STAT 12:48 PM EDT BASIC METABOLIC PANEL STAT 03/11/2021 12:48 PM EDT XR CHEST PA AND LATERAL Routine 03/10/2021 6:13 AM EDT HEMOGRAM Routine 03/10/2021 5:52 AM EDT DIFFERENTIAL, AUTOMATED Routine 03/10/2021 5:52 AM EDT HC CBC,PLT & AUTO DIFF Routine 5:52 AM EDT HC PHOSPHORUS, SERUM Routine 03/10/2021 5:52 AM EDT HC MAGNESIUM, SERUM Routine 03/10/2021 5 :52 AM EDT BASIC METABOLIC PANEL Routine 03/10/2021 5:52 AM EDT XR CHEST ONE VIEW STAT 03/09/2021 12: 50 PM EDT HEMOGRAM Routine 03/09/2021 11:55 AM EDT DIFFERENTIAL, AUTOMATED Routine 03/09/2021 11:55 AM EDT HC CBC,PLT & AUTO DIFF Routine 11:55 AM EDT HC PHOSPHORUS, SERUM Routine 03/09/2021 11:55 AM EDT HC MAGNESIUM, SERUM Routine 03/09/2021 1 1:55 AM EDT BASIC METABOLIC PANEL Routine 03/09/2021 11:55 AM EDT BLOOD GAS ARTERIAL POC Routine 9:27 AM EDT @THORACOSCOPY, SURG; W PART. DECORTICATION (WRVU 18.78) 03/09/2021 8:29 AM EDT bleeding @THORACOTOMY WEXPL,CONTROL BLDNG (WRVU 25.28) 03/09/2021 8:29 AM EDT bleeding TRANSFUSE RED BLOOD CELLS Routine 03/09/2021 7:31 AM EDT PREPARE RBC STAT 03/09/2021 7:15 AM EDT XR CHEST ONE VIEW STAT 03/09/2021 6:5 4 AM EDT POCT GLUCOSE Routine 03/09/2021 4:42 AM EDT HEMOGRAM Routine 03/09/2021 2:57 AM EDT DIFFERENTIAL, AUTOMATED Routine 03/09/2021 2:57 AM EDT HC VENIPUNCTURE Routine 03/09/2021 2:57 AM EDT HC PHOSPHORUS, SERUM Routine 03/09/2021 2:57 AM EDT HC MAGNESIUM, SERUM Routine 03/09/2021 2 :57 AM EDT BASIC METABOLIC PANEL Routine 03/09/2021 2:57 AM EDT HEMOGRAM STAT 03/08/2021 8:40 PM EDT DIFFERENTIAL, AUTOMATED STAT 03/08/2021 8:40 PM EDT HC VENIPUNCTURE STAT 03/08/2021 8:40 PM EDT TYPE AND SCREEN VALIDITY STAT 03/08/2021 4:36 PM EDT ABORH RECHECK STATUS STAT 03/08/2021 4:36 PM EDT ABO/RH TYPING STAT 03/08/2021 4:36 PM EDT ANTIBODY SCREEN STAT 03/08/2021 4:36 PM EDT HC VENIPUNCTURE STAT 03/08/2021 4:36 PM EDT XR CHEST ONE VIEW STAT 03/08/2021 3:0 0 PM EDT EKG 12-LEAD STAT 03/08/2021 12:56 PM EDT Recurrent spontaneous pneumothorax HEMOGRAM STAT 03/08/2021 12:47 PM EDT DIFFERENTIAL, AUTOMATED STAT 03/08/2021 12:47 PM EDT HC CBC,PLT & AUTO DIFF STAT 12:47 PM EDT HC PHOSPHORUS, SERUM STAT 03/08/2021 12:47 PM EDT HC MAGNESIUM, SERUM STAT 03/08/2021 1 2:47 PM EDT BASIC METABOLIC PANEL STAT 03/08/2021 12:[address] HEAD WO CONTRAST (GENERIC) STAT 03/08/2021 11:36 AM EDT HEMOGRAM Routine 03/08/2021 3:56 AM EDT DIFFERENTIAL, AUTOMATED Routine 03/08/2021 3:56 AM EDT HC CBC,PLT & AUTO DIFF Routine 3:56 AM EDT XR CHEST PA AND LATERAL STAT 03/08/2021 3:15 AM EDT HC PARTIAL THROMBOPLASTIN TIME Routine 03/06/2021 2:00 PM EDT HC PROTHROMBIN TIME Routine 03/06/2021 2 :00 PM EDT XR CHEST ONE VIEW STAT 03/06/2021 1:0 6 PM EDT SPECIMEN TO PATHOLOGY Routine 03/06/2021 10:57 AM EDT SURGICAL PATHOLOGY REPORT Routine 03/06/2021 10:56 AM EDT Thoracoscopy W/Partial Pulmonary Decortication (19938) 03/06/2021 8:45 AM EDT left spontaeous pneumothorax Bronchoscopy, Diagnostic (95986) 03/06/2021 8:45 AM EDT left spontaeous pneumothorax Thoracoscopy Surg W/Pleurodesis (65477) 03/06/2021 8:45 AM EDT left spontaeous pneumothorax Thoracoscopy W Resection-Plication Emphysema Lung Unilateral 03/06/2021 8:45 AM EDT left spontaeous pneumothorax PREPARE THAWED PLASMA Routine 03/06/2021 7:20 AM EDT HC VENIPUNCTURE Routine 03/06/2021 4:50 AM EDT LAB SCAN 03/06/2021 12:00 AM EDT TYPE AND SCREEN VALIDITY STAT 03/05/2021 6:10 PM EDT ABORH RECHECK STATUS STAT 03/05/2021 6:10 PM EDT ABO/RH TYPING STAT 03/05/2021 6:10 PM EDT ANTIBODY SCREEN STAT 03/05/2021 6:10 PM EDT HC ANTIBODY DETECTION,CAPTURE-R STAT 03/05/2021 6:10 PM EDT HEMOGRAM STAT 03/05/2021 4:21 PM EDT DIFFERENTIAL, AUTOMATED STAT 03/05/2021 4:21 PM EDT HC PARTIAL THROMBOPLASTIN TIME STAT 03/05/2021 4:21 PM EDT HC PROTHROMBIN TIME STAT 03/05/2021 4 :21 PM EDT HC CBC,PLT & AUTO DIFF STAT 4:21 PM EDT BASIC METABOLIC PANEL STAT 03/05/2021 4:21 PM EDT RAPID COVID-19 PCR (MH/APD/[facility]) STAT 03/05/2021 3:52 PM EDT EKG 12-LEAD Routine 03/05/2021 3:30 PM EDT documented in this encounter Results * XR [...] who have questions please contact the health emergency care attendant that requested your imaging first. ? Electronically signed by: Malika Thayer MD, [facility] ([phone]), at 03/30/2021 2:52 PM Narrative 03/30/2021 2:52 PM EDT EXAMINATION: XR [...] patients who have questions please contactthe health emergency care attendant that requested your imaging first. Kendall Khalil MD IMG DX ORDERABLES * XR Chest PA & Lateral (Generic) (03/13/2021 11:58 AM EDT) Anatomical Region Laterality Modality Chest N/A Digital Radiogra phy Impressions 03/13/2021 1:22 PM EDT No pneumothorax following removal of left-sided chest tube. Preliminary report signed by: Omar Cardoso at 03/13/2021 12:30 PM I have personally reviewed the image(s) and the resident's interpretation and agree with the findings, KENDALL PACHECO MD at 03/13/2021 1:22 PM Thank you for letting us participate in the care of this patient. ??If you are a health care provider and have any questions regarding this report, please contact the number below. ??For patients who have questions please contact the health emergency care attendant that requested your imaging first. ? Electronically signed by: KENDALL PACHECO MD, [facility] ([phone]), at 03/13/2021 1:22 PM Narrative 03/13/2021 1:22 PM EDT EXAMINATION: XR CHEST PA AND LATERAL (GENERIC) CLINICAL HISTORY: s/p post-ct pull interval change TECHNIQUE: PA and lateral views of the chest COMPARISON: Chest radiograph 03/11/2021 FINDINGS: Interval removal of left-sided apically directed chest tube. No pneumothorax. There is bilateral bronchial pulmonary markings. Postsurgical changes at the left base. No pleural effusion. The cardiomediastinal silhouette is within normal limits. Unchanged subcutaneous gas left chest wall. Procedure Note Kendall Pacheco MD - 03/13/2021 EXAMINATION: XR CHEST PA AND LATERAL (GENERIC) CLINICAL HISTORY: s/p post-ct pull interval change TECHNIQUE: PA and lateral views of the chest COMPARISON: Chest radiograph 03/11/2021 FINDINGS: Interval removal of left-sided apically directed chest tube. No pneumothorax. There is bilateral bronchial pulmonary markings.Postsurgical changes at the left base. No pleural effusion. The cardiomediastinalsilhouette is within normal limits. Unchanged subcutaneous gas left chest wall. IMPRESSION No pneumothorax following removal of left-sided chest tube. Preliminary report signed by: Omar Cardoso at 03/13/2021 12:30 PM I have personally reviewed the image(s) and the resident's interpretationand agree with the findings, KENDALL PACHECO MD at 03/13/2021 1:22 PM Thank you for letting us participate in the care of this patient. If youare a health care provider and have any questions regarding this report,please contact the number below. For patients who have questions please contactthe health emergency care attendant that requested your imaging first. Electronically signed by: KENDALL PACHECO MD, [facility]([phone]), at 03/13/2021 1:22 PM Kendall Khalil MD IMG DX ORDERABLES * XR Chest PA & Lateral (Generic) (03/13/2021 6:11 AM EDT) Anatomical Region Laterality Modality Chest N/A Digital Radiogra phy Impressions 03/13/2021 9:41 AM EDT No pneumothorax following left chest tube clamp trial. Preliminary report signed by: Omar Cardoso at 03/13/2021 8:20 AM I have personally reviewed the image(s) and the resident's interpretation and agree with the findings, KENDALL PACHECO MD at 03/13/2021 9:41 AM Thank you for letting us participate in the care of this patient. ??If you are a health care provider and have any questions regarding this report, please contact the number below. ??For patients who have questions please contact the health emergency care attendant that requested your imaging first. ? Electronically signed by: KENDALL PACHECO MD, [facility] ([phone]), at 03/13/2021 9:41 AM Narrative 03/13/2021 9:41 AM EDT EXAMINATION: XR CHEST PA AND LATERAL (GENERIC) CLINICAL HISTORY: L VATS partial decortication, blebectomy and talc pleurodesis. Clamp trial @midnight 03/13 assess for pnx TECHNIQUE: PA and lateral views of the chest COMPARISON: Chest radiograph 03/12/2021 FINDINGS: Unchanged position of left-sided anterior mediastinal directed chest tube, left-sided cardiac device, and multiple cardiac valve prostheses. Unchanged coarse bilateral bronchopulmonary markings. Postsurgical changes at the left base. No definite pneumothorax. Cardiomediastinal silhouette is within normal limits. 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 Small amount of subcutaneous gas at the left lateral chest wall. Procedure Note Kendall Pacheco MD - 03/13/2021 EXAMINATION: XR CHEST PA AND LATERAL (GENERIC) CLINICAL HISTORY: L VATS partial decortication, blebectomy and talcpleurodesis. Clamp trial @midnight 03/13 assess for pnx TECHNIQUE: PA and lateral views of the chest COMPARISON: Chest radiograph 03/12/2021 FINDINGS: Unchanged position of left-sided anterior mediastinal directed chesttube, left-sided cardiac device, and multiple cardiac valve prostheses. Unchanged coarse bilateral bronchopulmonary markings. Postsurgical changesat the left base. No definite pneumothorax. Cardiomediastinal silhouette iswithin normal limits. 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 Small amount of subcutaneous gas at the left lateral chestwall. IMPRESSION No pneumothorax following left chest tube clamp trial. Preliminary report signed by: Omar Cardoso at 03/13/2021 8:20 AM I have personally reviewed the image(s) and the resident's interpretationand agree with the findings, KENDALL PACHECO MD at 03/13/2021 9:41 AM Thank you for letting us participate in the care of this patient. If youare a health care provider and have any questions regarding this report,please contact the number below. For patients who have questions please contactthe health emergency care attendant that requested your imaging first. Electronically signed by: KENDALL PACHECO MD, [facility]([phone]), at 03/13/2021 9:41 AM Kendall Khalil MD IMG DX ORDERABLES * Green Tube HOLD (03/13/2021 3:47 AM EDT) Pathologist [facility] Green Hold Sample in lab. [facility] Blood Venous Draw / Unknown 03/13/2021 3:47 AM EDT 03/13/2021 4:24 AM EDT Uri Sawyer MD CHEMISTRY ORDERABLES [facility] [place] [address] * (ABNORMAL) Differential, Automated (03/13/2021 3:47 AM EDT) Pathologist [facility] Neutrophil % 82.8 % [facility] Neutrophil Absolute 11.20(H) 1.70 - 6.10 x10(3)/mc L [facility] Lymph % 6.4 % [facility] Lymphocytes Abs 0.9 0.9 - 3.2 x10(3)/mc L [facility] Monocyte % 7.8 % [facility] Monocyte Abs 1.1(H) 0.3 - 0.9 x10(3)/mc L [facility] Eos % 2.0 % [facility] Eosinophils Abs 0.3 0.0 - 0.4 x10(3)/mc L [facility] Basophil % 0.3 % [facility] Baso Absolute 0.0 0.0 - 0.1 x10(3)/mc L [facility] Immature Gran % 0.70 % [facility] Comment: Immature granulocytes(IG's)percentage and absolute count will include metamyelocytes, myelocytes, and promyelocytes. Blood smears from CBCs yielding IG's will be scanned manually for concordance. If this scan disagrees with the automated IG or if promyelocytes are noted, a manual differential will be performed. Immature Gran Absolute 0.09(H) 0.00 - 0.04 x10(3)/mc L [facility] Blood 03/13/2021 3:47 AM EDT 03/13/2021 4:23 AM EDT Narrative Resulting Agency Comment Spec In Lab Ashanti May MD HEMATOLOGY ORDERABLE S [facility] [place] [address] * (ABNORMAL) Hemogram (03/13/2021 3:47 AM EDT) White Blood Cell 13.5(H) 4.0 - 9.5 x10(3)/[facility] Red Blood Cell 2.70(L) 4.58 - 5.54 x10(6)/[facility] Hemoglobin 8.1(L) 13.7 - 16.5 gm/dL [facility] Hematocrit 24.0(L) 40.5 - 48.5 % [facility] Mean Cell Volume 88.9 82.9 - 93.1 fL [facility] Mean Cell Hemoglobin 30.0 27.5 - 32.1 pg [facility] Mean Cell Hemoglobin Concentration 33.8 32.0 - 35.7 gm/dL [facility] Platelet 316 145 - 357 x10(3)/[facility] RDW Standard Deviation 44.9 36.0 - 45.0 [facility] RDW coefficient of variation 14.4(H) 11.4 - 13.8 % [facility] Mean Platelet Volume 9.6 7.6 - 12.9 fL [facility] NRBC% auto 0.4 % [facility] NRBC Absolute 0.050(H) 0.000 - 0.000 x10(3)/ L [facility] Blood 03/13/2021 3:47 AM EDT 03/13/2021 4:23 AM EDT Narrative Resulting Agency Comment Spec In Lab Ashanti May MD HEMATOLOGY ORDERABLE S Performing Organization Address [facility] Co de Phone Number [facility] [place] [address] * (ABNORMAL) Prothrombin Time (03/13/2021 3:47 AM EDT) Prothrombin Time 12.9(H) 9.4 - 12.5 sec [facility] International Normalization Ratio 1.1 [facility] Comment: An INR <2.0 indicates [...] be appropriate depending on clinical circumstances. Blood 03/13/2021 3:47 AM EDT 03/13/2021 4:23 AM EDT Narrative Resulting Agency Comment Spec In Lab Kendall Khalil MD HEMATOLOGY ORDERABLE S Performing Organization Address [facility] Co de Phone Number [facility] [place] [address] * Prothrombin Time (03/12/2021 6:12 PM EDT) Prothrombin Time 11.7 9.4 - 12.5 sec [facility] International Normalization Ratio 1.0 [facility] Comment: An INR <2.0 indicates [...] be appropriate depending on clinical circumstances. Blood 03/12/2021 6:12 PM EDT 03/12/2021 6:29 PM EDT Narrative Resulting Agency Comment Spec In Lab Kendall Khalil MD HEMATOLOGY ORDERABLE S [facility] [place] [address] * Transfuse RBC (03/12/2021 5:24 PM EDT) Kendall Khalil MD NURSING TREATMENT OR DERABLES - BLOOD ADMIN * Transfuse RBC (03/12/2021 5:24 PM EDT) Kendall Khalil MD NURSING TREATMENT OR DERABLES - BLOOD ADMIN * XR Chest PA & Lateral (Generic) (03/12/2021 2:45 PM EDT) Anatomical Region Laterality Modality Chest N/A Digital Radiogra phy Impressions 03/12/2021 2:56 PM EDT No pneumothorax on the left post removal of one of the chest tubes. Thank you for letting us participate in the care of this patient. ??If you are a health care provider and have any questions regarding this report, please contact the number below. ??For patients who have questions please contact the health emergency care attendant that requested your imaging first. ? Narrative 03/12/2021 2:56 PM EDT EXAMINATION: XR CHEST PA AND LATERAL (GENERIC) CLINICAL HISTORY: s/p LVATS partial decort, blebectomy, talc pleurodesis TECHNIQUE: PA and lateral views of the chest. COMPARISON: 03/10/2021. FINDINGS: One of the two left-sided chest tubes, specifically the chest tube with tip just below the apex, has been removed. Other chest tube in unchanged position. No pneumothorax is seen. Unchanged appearance of the lungs, cardiomediastinal silhouette and vasculature. No other interval findings. Procedure Note Malika Thayer MD - 03/12/2021 EXAMINATION: XR CHEST PA AND LATERAL (GENERIC) CLINICAL HISTORY: s/p LVATS partial decort, blebectomy, talc pleurodesis TECHNIQUE: PA and lateral views of the chest. COMPARISON: 03/10/2021. FINDINGS: One of the two left-sided chest tubes, specifically the chesttube with tip just below the apex, has been removed. Other chest tube inunchanged position. No pneumothorax is seen. Unchanged appearance of the lungs, cardiomediastinal silhouette and vasculature. No other intervalfindings. IMPRESSION No pneumothorax on the left post removal of one of the chest tubes. Thank you for letting us participate in the care of this patient. If youare a health care provider and have any questions regarding this report,please contact the number below. For patients who have questions please contactthe health emergency care attendant that requested your imaging first. Kendall Khalil MD IMG DX ORDERABLES * Type and Screen Validity (03/12/2021 12:10 PM EDT) T&S only valid at [facility] LABORATORY Comment:This Type and Screen result is only valid at the [facility] Blood 03/12/2021 12:1 0 PM EDT 03/12/2021 12:21 PM EDT Narrative Resulting Agency Comment Spec In Lab Pardeep DELAROSA BLOOD BANK LAB OR DERABLES [facility] [place] [address] * ABORH Recheck Status (03/12/2021 12:10 PM EDT) ABORH Type Recheck Completed [facility] Blood 03/12/2021 12:1 0 PM EDT 03/12/2021 12:21 PM EDT Narrative Resulting Agency Comment Spec In Lab Pardeep DELAROSA BLOOD BANK LAB OR DERABLES Performing Organization Address [facility]/ZIP Co de Phone Number [facility] [place] [address] * Antibody screen (03/12/2021 12:10 PM EDT) Ab Screen Interp Negative [facility] Expires at [id number] on: 03/15/2021 [facility] Blood 03/12/2021 12:1 0 PM EDT 03/12/2021 12:21 PM EDT Narrative Resulting Agency Comment Spec In Lab Pardeep DELAROSA BLOOD BANK LAB OR DERABLES Performing Organization Address [facility] Co de Phone Number [facility] [place] [address] * ABO/Rh Typing (03/12/2021 12:10 PM EDT) ABORH Type A Neg [facility] Blood 03/12/2021 12:1 0 PM EDT 03/12/2021 12:21 PM EDT Narrative Resulting Agency Comment Spec In Lab Pardeep DELAROSA BLOOD BANK LAB OR DERABLES Performing Organization Address City/[facility]/ZIP Co de Phone Number [facility] [place] [address] * Prepare RBC (03/12/2021 10:45 AM EDT) Dispensed? Yes [facility] Blood 03/12/2021 10:4 5 AM EDT 03/12/2021 10:43 AM EDT Narrative Resulting Agency Comment Spec In Lab Kendall Khalil MD BLOOD BANK PRODUCT O RDERABLES [facility] [place] [address] * Green Tube HOLD (03/12/2021 8:31 AM EDT) Pathologist [facility] Green Hold Sample in lab. [facility] Blood Venous Draw / Unknown 03/12/2021 8:31 AM EDT 03/12/2021 8:38 AM EDT Ashanti May MD CHEMISTRY ORDERABLES [facility] [place] [address] * (ABNORMAL) Differential, Automated (03/12/2021 8:31 AM EDT) [facility] Neutrophil % 70.0 % [facility] Neutrophil Absolute 6.10 1.70 - 6.10 x10(3)/mc L [facility] Lymph % 13.8 % [facility] Lymphocytes Abs 1.2 0.9 - 3.2 x10(3)/mc L [facility] Monocyte % 9.3 % [facility] Monocyte Abs 0.8 0.3 - 0.9 x10(3)/mc L [facility] Eos % 5.1 % [facility] Eosinophils Abs 0.4 0.0 - 0.4 x10(3)/mc L [facility] Basophil % 0.7 % [facility] Baso Absolute 0.1 0.0 - 0.1 x10(3)/mc L [facility] Immature Gran % 1.10 % [facility] Comment: Immature granulocytes(IG's)percentage and absolute count will include metamyelocytes, myelocytes, and promyelocytes. Blood smears from CBCs yielding IG's will be scanned manually for concordance. If this scan disagrees with the automated IG or if promyelocytes are noted, a manual differential will be performed. Immature Gran Absolute 0.10(H) 0.00 - 0.04 x10(3)/mc L [facility] Blood 03/12/2021 8:31 AM EDT 03/12/2021 8:38 AM EDT Narrative Resulting Agency Comment Spec In Lab Ashanti May MD HEMATOLOGY ORDERABLE S [facility] [place] [address] * (ABNORMAL) Hemogram (03/12/2021 8:31 AM EDT) White Blood Cell 8.7 4.0 - 9.5 x10(3)/ L [facility] Red Blood Cell 2.34(L) 4.58 - 5.54 x10(6)/ L [facility] Hemoglobin 7.0(L) 13.7 - 16.5 gm/dL [facility] Hematocrit 20.8(L) 40.5 - 48.5 % [facility] Mean Cell Volume 88.9 82.9 - 93.1 fL [facility] Mean Cell Hemoglobin 29.9 27.5 - 32.1 pg [facility] Mean Cell Hemoglobin Concentration 33.7 32.0 - 35.7 gm/dL [facility] Platelet 275 145 - 357 x10(3)/ L [facility] RDW Standard Deviation 45.6(H) 36.0 - 45.0 [facility] LABORATORY RDW coefficient of variation 14.4(H) 11.4 - 13.8 % [facility] Mean Platelet Volume 9.5 7.6 - 12.9 fL [facility] NRBC% auto 0.5 % [facility] NRBC Absolute 0.040(H) 0.000 - 0.000 x10(3)/ L [facility] Blood 03/12/2021 8:31 AM EDT 03/12/2021 8:38 AM EDT Narrative Resulting Agency Comment Spec In Lab Ashanti May MD HEMATOLOGY ORDERABLE S Performing Organization Address City/[facility]/[place] [address] * (ABNORMAL) Differential, Automated (03/11/2021 12:48 PM EDT) Neutrophil % 65.8 % [facility] Neutrophil Absolute 5.12 1.70 - 6.10 x10(3)/mc L [facility] Lymph % 14.2 % [facility] Lymphocytes Abs 1.1 0.9 - 3.2 x10(3)/ L [facility] Monocyte % 11.0 % [facility] Monocyte Abs 0.9 0.3 - 0.9 x10(3)/ L [facility] Eos % 6.9 % [facility] Eosinophils Abs 0.5(H) 0.0 - 0.4 x10(3)/ L [facility] Basophil % 0.6 % [facility] Baso Absolute 0.0 0.0 - 0.1 x10(3)/[facility] LABORATORY Immature Gran % 1.50 % [facility] Comment: Immature granulocytes(IG's)percentage and absolute count will include metamyelocytes, myelocytes, and promyelocytes. Blood smears from CBCs yielding IG's will be scanned manually for concordance. If this scan disagrees with the automated IG or if promyelocytes are noted, a manual differential will be performed. Immature Gran Absolute 0.12(H) 0.00 - 0.04 x10(3)/ L [facility] Blood 03/11/2021 12:4 8 PM EDT 03/11/2021 1:27 PM EDT Narrative Resulting Agency Comment Spec In Lab Ashanti May MD HEMATOLOGY ORDERABLE S [facility] [place] [address] * (ABNORMAL) Hemogram (03/11/2021 12:48 PM EDT) [facility] White Blood Cell 7.8 4.0 - 9.5 x10(3)/ L [facility] Red Blood Cell 2.55(L) 4.58 - 5.54 x10(6)/[facility] LABORATORY Hemoglobin 7.3(L) 13.7 - 16.5 gm/dL [facility] Hematocrit 22.6(L) 40.5 - 48.5 % [facility] Mean Cell Volume 88.6 82.9 - 93.1 fL [facility] Mean Cell Hemoglobin 28.6 27.5 - 32.1 pg [facility] Mean Cell Hemoglobin Concentration 32.3 32.0 - 35.7 gm/dL [facility] Platelet 251 145 - 357 x10(3)/[facility] LABORATORY RDW Standard Deviation 46.9(H) 36.0 - 45.0 [facility] LABORATORY RDW coefficient of variation 14.5(H) 11.4 - 13.8 % [facility] Mean Platelet Volume 10.3 7.6 - 12.9 [facility] LABORATORY NRBC% auto 0.4 % [facility] NRBC Absolute 0.030(H) 0.000 - 0.000 x10(3)/[facility] LABORATORY Blood 03/11/2021 12:4 8 PM EDT 03/11/2021 1:27 PM EDT Narrative Resulting Agency Comment Spec In Lab Ashanti May MD HEMATOLOGY ORDERABLE S [facility] [place] [address] * (ABNORMAL) Basic Metabolic Panel (non-fasting) (03/11/2021 12:48 PM EDT) [facility] Glucose 100 65 - 199 mg/dL [facility] Comment:Diabetes: >=200 mg/d L plus symptoms Blood Urea Nitrogen 19 10 - 20 mg/dL [facility] Creatinine 0.93 0.80 - 1.50 mg/dL [facility] Sodium 140 135 - 145 mmol/L [facility] Potassium 3.9 3.5 - 5.0 mmol/L [facility] Comment: Please note: ??Patients with WBC >100,000 may have falsely elevated Potassium levels. ??For accurate Potassium quantification in these patients send serum separator tube (gold top) for subsequent determinations. ??Contact the Clinical Chemistry Laboratory if there are any questions. Chloride 106 98 - 107 mmol/L [facility] Carbon Dioxide 23 22 - 31 mmol/L [facility] Anion Gap 11 5 - 15 mmol/L [facility] Calcium 8.3(L) 8.5 - 10.5 mg/dL [facility] Est Glomerular Filtration Rate 82 >=60 mL/min/1. 73 m?? [facility] Comment: This patient? s estimated glomerular filtration rate (eGFR) is between 82 mL/min/1.73 m2 (patients with less muscle mass per kg body weight) and 95 mL/min/1.73 m2 (patients with more muscle mass [...] and symptoms in addition to eGFR. Blood 03/11/2021 12:4 8 PM EDT 03/11/2021 1:27 PM EDT Narrative Resulting Agency Comment Spec In Lab Kendall Khalil MD CHEMISTRY ORDERABLES [facility] [place] [address] * XR Chest PA & Lateral (Generic) (03/10/2021 6:13 AM EDT) Anatomical Region Laterality Modality Chest N/A Digital Radiogra phy Impressions 03/10/2021 8:41 AM EDT 1. ??Essentially no change in cardiopulmonary status. Thank you for letting us participate in the care of this patient. ??If you are a health care provider and have any questions regarding this report, please contact the number below. ??For patients who have questions please contact the health emergency care attendant that requested your imaging first. ? Electronically signed by: Mirella Fowler MD, [facility] ([phone]), at 03/10/2021 8:41 AM Narrative 03/10/2021 8:41 AM EDT EXAMINATION: XR CHEST PA AND LATERAL (GENERIC) CLINICAL HISTORY: s/p L VATS clot evac 03/09, and prior blebectomy, partial decort, rayo pleurodesis (as entered by ordering provider in the order requisition) TECHNIQUE: PA and lateral views of the chest COMPARISON: Chest radiograph 03/09/2021 FINDINGS: Unchanged dual lead left chest pacemaker. Unchanged prosthetic cardiac valves. Unchanged sternotomy wires. Similar position of 2 left-sided pleural drains. Slight interval decrease in subcutaneous gas along the left lateral chest wall. Posttraumatic deformities of multiple right ribs. Unchanged course pulmonary markings bilaterally. No dense or confluent consolidation. Blunting of the posterior costophrenic angles may reflect trace pleural effusions or pleural thickening. Procedure Note Mirella Fowler MD - 03/10/2021 EXAMINATION: XR CHEST PA AND LATERAL (GENERIC) CLINICAL HISTORY: s/p L VATS clot evac 03/09, and prior blebectomy,partial decort, rayo pleurodesis (as entered by ordering provider in the order requisition) TECHNIQUE: PA and lateral views of the chest COMPARISON: Chest radiograph 03/09/2021 FINDINGS: Unchanged dual lead left chest pacemaker. Unchanged prosthetic cardiacvalves. Unchanged sternotomy wires. Similar position of 2 left-sided pleural drains. Slight interval decreasein subcutaneous gas along the left lateral chest wall. Posttraumatic deformities of multiple right ribs. Unchanged course pulmonary markings bilaterally. No dense or confluent consolidation. Blunting of the posterior costophrenic angles may reflecttrace pleural effusions or pleural thickening. IMPRESSION 1. Essentially no change in cardiopulmonary status. Thank you for letting us participate in the care of this patient. If youare a health care provider and have any questions regarding this report,please contact the number below. For patients who have questions please contactthe health emergency care attendant that requested your imaging first. Electronically signed by: Mirella Fowler MD, [facility]([phone]), at 03/10/2021 8:41 AM Kendall Khalil MD IMG DX ORDERABLES * (ABNORMAL) Differential, Automated (03/10/2021 5:52 AM EDT) Neutrophil % 79.5 % [facility] Neutrophil Absolute 8.74(H) 1.70 - 6.10 x10(3)/mc L [facility] Lymph % 9.8 % [facility] Lymphocytes Abs 1.1 0.9 - 3.2 x10(3)/mc L [facility] Monocyte % 9.5 % [facility] Monocyte Abs 1.0(H) 0.3 - 0.9 x10(3)/mc L [facility] Eos % 0.5 % [facility] Eosinophils Abs 0.1 0.0 - 0.4 x10(3)/mc L [facility] Basophil % 0.2 % [facility] Baso Absolute 0.0 0.0 - 0.1 x10(3)/mc L [facility] Immature Gran % 0.50 % [facility] Comment: Immature granulocytes(IG's)percentage and absolute count will include metamyelocytes, myelocytes, and promyelocytes. Blood smears from CBCs yielding IG's will be scanned manually for concordance. If this scan disagrees with the automated IG or if promyelocytes are noted, a manual differential will be performed. Immature Gran Absolute 0.05(H) 0.00 - 0.04 x10(3)/mc L [facility] Blood 03/10/2021 5:52 AM EDT 03/10/2021 6:21 AM EDT Narrative Resulting Agency Comment Spec In Lab Ashanti May MD HEMATOLOGY ORDERABLE S [facility] [place] [address] * (ABNORMAL) Hemogram (03/10/2021 5:52 AM EDT) White Blood Cell 11.0(H) 4.0 - 9.5 x10(3)/mc L [facility] Red Blood Cell 2.56(L) 4.58 - 5.54 x10(6)/mc L [facility] Hemoglobin 7.6(L) 13.7 - 16.5 gm/dL [facility] Hematocrit 22.3(L) 40.5 - 48.5 % [facility] Mean Cell Volume 87.1 82.9 - 93.1 fL [facility] Mean Cell Hemoglobin 29.7 27.5 - 32.1 pg [facility] Mean Cell Hemoglobin Concentration 34.1 32.0 - 35.7 gm/dL [facility] Platelet 208 145 - 357 x10(3)/mc L [facility] RDW Standard Deviation 47.7(H) 36.0 - 45.0 fL [facility] RDW coefficient of variation 14.9(H) 11.4 - 13.8 % [facility] Mean Platelet Volume 9.8 7.6 - 12.9 fL [facility] NRBC% auto 0.0 % [facility] NRBC Absolute 0.000 0.000 - 0.000 x10(3)/mc L [facility] Blood 03/10/2021 5:52 AM EDT 03/10/2021 6:21 AM EDT Narrative Resulting Agency Comment Spec In Lab Ashanti May MD HEMATOLOGY ORDERABLE S [facility] [place] [address] * (ABNORMAL) Phosphorus (03/10/2021 5:52 AM EDT) Phosphorus 2.4(L) 2.5 - 4.5 mg/dL [facility] Blood 03/10/2021 5:52 AM EDT 03/10/2021 6:21 AM EDT Narrative Resulting Agency Comment Spec In Lab Kendall Khalil MD CHEMISTRY ORDERABLES Performing Organization Address City/[facility]/ZIP Co de Phone Number [facility] [place] [address] * Magnesium (03/10/2021 5:52 AM EDT) Magnesium 0.92 0.69 - 1.07 mmol/L [facility] Blood 03/10/2021 5:52 AM EDT 03/10/2021 6:21 AM EDT Narrative Resulting Agency Comment Spec In Lab Kendall Khalil MD CHEMISTRY ORDERABLES Performing Organization Address [facility]/ZIP Co de Phone Number [facility] [place] [address] * (ABNORMAL) Basic Metabolic Panel (non-fasting) (03/10/2021 5:52 AM EDT) Glucose 106 65 - 199 mg/dL [facility] Comment:Diabetes: >=200 mg/d L plus symptoms Blood Urea Nitrogen 18 10 - 20 mg/dL [facility] Creatinine 0.76(L) 0.80 - 1.50 mg/dL [facility] Sodium 133(L) 135 - 145 mmol/L [facility] Potassium 4.5 3.5 - 5.0 mmol/L [facility] Comment: Please note: ??Patients with WBC >100,000 may have falsely elevated Potassium levels. ??For accurate Potassium quantification in these patients send serum separator tube (gold top) for subsequent determinations. ??Contact the Clinical Chemistry Laboratory if there are any questions. Chloride 104 98 - 107 mmol/L [facility] Carbon Dioxide 22 22 - 31 mmol/L [facility] Anion Gap 7 5 - 15 mmol/L [facility] Calcium 7.9(L) 8.5 - 10.5 mg/dL [facility] Est Glomerular Filtration Rate 92 >=60 mL/min/1. 73 m?? [facility] Comment: This patient? s estimated glomerular filtration rate (eGFR) is between 92 mL/min/1.73 m2 (patients with less muscle mass per kg body weight) and 106 mL/min/1.73 m2 (patients with more muscle mass [...] and symptoms in addition to eGFR. Blood 03/10/2021 5:52 AM EDT 03/10/2021 6:21 AM EDT Narrative Resulting Agency Comment Spec In Lab Kendall Khalil MD CHEMISTRY ORDERABLES [facility] [place] [address] * XR Chest One View (03/09/2021 12:50 PM EDT) Anatomical Region Laterality Modality Chest N/A Digital Radiogra phy Impressions 03/09/2021 1:15 PM EDT 1. ??Interval placement of a second left-sided chest tube with improved aeration of the left lung. 2. ??No definite hemothorax or pneumothorax. Thank you for letting us participate in the care of this patient. ??If you are a health care provider and have any questions regarding this report, please contact the number below. ??For patients who have questions please contact the health emergency care attendant that requested your imaging first. ? Electronically signed by: GERMANIA BLAIR MD, [facility] ([phone]), at 03/09/2021 1:15 PM Narrative 03/09/2021 1:15 PM EDT EXAMINATION: XR CHEST ONE VIEW CLINICAL HISTORY: post-op L VATs, clot evacuation, chest tube placement x2 TECHNIQUE: 1 view of the chest , AP portable semiupright COMPARISON: Same day chest radiograph 03/09/2021 FINDINGS: Interval placement of a second left-sided chest tube. Otherwise unchanged equipment/hardware. Improved aeration of the left lung consistent with decrease/resolution of the left-sided hemothorax. No dense consolidation. No pleural effusion or definite pneumothorax. The cardiomediastinal silhouette and jacquie are within normal limits. No acute osseous abnormality. Unchanged remote right-sided rib fractures. Procedure Note Germania Blair MD - 03/09/2021 EXAMINATION: XR CHEST ONE VIEW CLINICAL HISTORY: post-op L VATs, clot evacuation, chest tube placementx2 TECHNIQUE: 1 view of the chest , AP portable semiupright COMPARISON: Same day chest radiograph 03/09/2021 FINDINGS: Interval placement of a second left-sided chest tube. Otherwiseunchanged equipment/hardware. Improved aeration of the left lung consistent with decrease/resolution ofthe left-sided hemothorax. No dense consolidation. No pleural effusion ordefinite pneumothorax. The cardiomediastinal silhouette and jacquie are withinnormal limits. No acute osseous abnormality. Unchanged remote right-sided rib fractures. IMPRESSION 1. Interval placement of a second left-sided chest tube with improvedaeration of the left lung. 2. No definite hemothorax or pneumothorax. Thank you for letting us participate in the care of this patient. If youare a health care provider and have any questions regarding this report,please contact the number below. For patients who have questions please contactthe health emergency care attendant that requested your imaging first. Electronically signed by: GERMANIA BLAIR MD, [facility]([phone]), at 03/09/2021 1:15 PM Kendall Khalil MD IMG DX ORDERABLES * (ABNORMAL) Differential, Automated (03/09/2021 11:55 AM EDT) Neutrophil % 92.8 % [facility] Neutrophil Absolute 13.14(H) 1.70 - 6.10 x10(3)/mc L [facility] Lymph % 2.4 % [facility] Lymphocytes Abs 0.3(L) 0.9 - 3.2 x10(3)/mc L [facility] Monocyte % 4.0 % [facility] Monocyte Abs 0.6 0.3 - 0.9 x10(3)/mc L [facility] Eos % 0.1 % [facility] Eosinophils Abs 0.0 0.0 - 0.4 x10(3)/mc L [facility] Basophil % 0.2 % [facility] Baso Absolute 0.0 0.0 - 0.1 x10(3)/mc L [facility] Immature Gran % 0.50 % [facility] Comment: Immature granulocytes(IG's)percentage and absolute count will include metamyelocytes, myelocytes, and promyelocytes. Blood smears from CBCs yielding IG's will be scanned manually for concordance. If this scan disagrees with the automated IG or if promyelocytes are noted, a manual differential will be performed. Immature Gran Absolute 0.07(H) 0.00 - 0.04 x10(3)/mc L [facility] Blood 03/09/2021 11:5 5 AM EDT 03/09/2021 1:26 PM EDT Narrative Resulting Agency Comment Spec In Lab Ashanti May MD HEMATOLOGY ORDERABLE S [facility] [place] [address] * (ABNORMAL) Hemogram (03/09/2021 11:55 AM EDT) White Blood Cell 14.2(H) 4.0 - 9.5 x10(3)/mc L [facility] Red Blood Cell 2.81(L) 4.58 - 5.54 x10(6)/mc L [facility] Hemoglobin 8.4(L) 13.7 - 16.5 gm/dL [facility] Hematocrit 24.5(L) 40.5 - 48.5 % [facility] Mean Cell Volume 87.2 82.9 - 93.1 [facility] Mean Cell Hemoglobin 29.9 27.5 - 32.1 pg [facility] Mean Cell Hemoglobin Concentration 34.3 32.0 - 35.7 gm/dL [facility] Platelet 178 145 - 357 x10(3)/mc L [facility] RDW Standard Deviation 46.4(H) 36.0 - 45.0 fL [facility] RDW coefficient of variation 14.4(H) 11.4 - 13.8 % [facility] Mean Platelet Volume 10.6 7.6 - 12.9 [facility] NRBC% auto 0.0 % [facility] NRBC Absolute 0.000 0.000 - 0.000 x10(3)/mc L [facility] [facility] Blood 03/09/2021 11:5 5 AM EDT 03/09/2021 1:26 PM EDT Narrative Resulting Agency Comment Spec In Lab Ashanti May MD HEMATOLOGY ORDERABLE S Performing Organization Address [facility] Co de Phone Number [facility] [place] [address] * (ABNORMAL) Phosphorus (03/09/2021 11:55 AM EDT) Phosphorus 4.7(H) 2.5 - 4.5 mg/dL [facility] Blood 03/09/2021 11:5 5 AM EDT 03/09/2021 1:26 PM EDT Narrative Resulting Agency Comment Spec In Lab Kendall Khalil MD CHEMISTRY ORDERABLES Performing Organization Address [facility] Co de Phone Number [facility] [place] [address] * Magnesium (03/09/2021 11:55 AM EDT) Magnesium 0.91 0.69 - 1.07 mmol/L [facility] Blood 03/09/2021 11:5 5 AM EDT 03/09/2021 1:26 PM EDT Narrative Resulting Agency Comment Spec In Lab Kendall Khalil MD CHEMISTRY ORDERABLES Performing Organization Address [facility] Co de Phone Number [facility] [place] [address] * (ABNORMAL) Basic Metabolic Panel (non-fasting) (03/09/2021 11:55 AM EDT) Glucose Not Perf 65 - 199 [facility] Comment: Sample improperly processed prior to receipt. Unspun for >1hr. Diabetes: >=200 mg/dL plus symptoms Blood Urea Nitrogen 17 10 - 20 mg/dL [facility] Creatinine 0.81 0.80 - 1.50 mg/dL [facility] Sodium 132(L) 135 - 145 mmol/L [facility] Potassium 4.6 3.5 - 5.0 mmol/L [facility] Comment: Please note: ??Patients with WBC >100,000 may have falsely elevated Potassium levels. ??For accurate Potassium quantification in these patients send serum separator tube (gold top) for subsequent determinations. ??Contact the Clinical Chemistry Laboratory if there are any questions. Chloride 99 98 - 107 mmol/L [facility] Carbon Dioxide 23 22 - 31 mmol/L [facility] Anion Gap 10 5 - 15 mmol/L [facility] Calcium 7.7(L) 8.5 - 10.5 mg/dL [facility] Est Glomerular Filtration Rate 89 >=60 mL/min/1. 73 m?? [facility] Comment: This patient? s estimated glomerular filtration rate (eGFR) is between 89 mL/min/1.73 m2 (patients with less muscle mass per kg body weight) and 104 mL/min/1.73 m2 (patients with more muscle mass [...] and symptoms in addition to eGFR. Blood 03/09/2021 11:5 5 AM EDT 03/09/2021 1:26 PM EDT Narrative Resulting Agency Comment Spec In Lab Kendall Khalil MD CHEMISTRY ORDERABLES [facility] [place] [address] * (ABNORMAL) BLOOD GAS 2 ARTERIAL (03/09/2021 9:27 AM EDT) pH, Arterial 7.42 7.35 - 7.45 [facility] PCO2, Arterial 44 35 - 45 mmHg [facility] PO2, Arterial 137(H) 85 - 104 mmHg [facility] Bicarbonate, Arterial 28.1(H) 20.0 - 26.0 mmol/L [facility] Base Excess, Arterial 3.6(H) -3.0 - 3.0 mmol/L [facility] Hgb Blood Gas 8.6(L) 13.7 - 16.5 gm/dL [facility] Oxyhemoglobin, Arterial 97.2(H) 94.0 - 97.0 % [facility] Carboxyhemoglob in, Arterial 1.1 % [facility] Comment: Nonsmokers: 0.5-1.5% COHB Smokers: Variable, but usually less than 10% Toxic: 20-30% COHB Lethal: Greater than 60% COHB Methemoglobin, Arterial 0.3 <=1.5 % [facility] Na Whole Blood 129(L) 135 - 145 mmol/L [facility] K Whole Blood 4.7 3.5 - 5.0 mmol/L [facility] Comment: Please note: Patients with WBC >100,000 may have falsely elevated Potassium levels. Contact the Clinical Chemistry Laboratory if there are any questions. ICa Whole Blood 1.05(L) 1.15 - 1.33 mmol/L [facility] Comment: Note: ??Total bilirubin higher than 20 mg/dL may lead to falsely low ionized calcium. CL Whole Blood 100 98 - 107 mmol/L [facility] Gluc Whole Bld 132 65 - 199 mg/dL [facility] Comment:Diabetes: >=200 mg/d L plus symptoms. Lactate WB 1.7 0.5 - 2.2 mmol/L [facility] Blood 03/09/2021 9:27 AM EDT 03/09/2021 9:27 AM EDT Kendall Khalil MD POINT OF CARE TEST O RDERABLES [facility] [place] [address] * Prepare RBC (03/09/2021 7:15 AM EDT) Dispensed? Yes [facility] Blood 03/09/2021 7:15 AM EDT 03/09/2021 7:10 AM EDT Narrative Resulting Agency Comment Spec In Lab Kendall Khalil MD BLOOD BANK PRODUCT O RDERABLES [facility] [place] [address] * XR Chest One View (03/09/2021 6:54 AM EDT) Anatomical Region Laterality Modality Chest N/A Digital Radiogra phy Impressions 03/09/2021 7:28 AM EDT 1. ??Increasing small to moderate left, partially loculated hemothorax. 2. ??No appreciable pneumothorax or change in orientation of the left chest tube. Preliminary report signed by: Raj Tamayo at 03/09/2021 7:03 AM I have personally reviewed the image(s) and the resident's interpretation and agree with the findings, Tirso Burton MD at 03/09/2021 7:28 AM Thank you for letting us participate in the care of this patient. ??If you are a health care provider and have any questions regarding this report, please contact the number below. ??For patients who have questions please contact the health emergency care attendant that requested your imaging first. ? Narrative 03/09/2021 7:28 AM EDT EXAMINATION: XR CHEST ONE VIEW CLINICAL HISTORY: left hemothorax, hemoglobin decreased 2 points o/n Pleural Effusion, comparison TECHNIQUE: 1 view of the chest , AP upright COMPARISON: 03/08/2021 chest radiograph FINDINGS: Unchanged orientation of apically directed left chest tube. Left chest pacemaker leads terminating over the right atrium and right ventricle. No appreciable pneumothorax. Increasing opacification of the left lung base and midlung zone suspicious for increasing left hemothorax. The right lung is clear. Unchanged cardiomediastinal silhouette and hilar contours. 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 Midline sternotomy wires are intact. Redemonstrated remote RIGHT lateral rib fractures. No acute osseous abnormality. Procedure Note Tirso Burton MD - 03/09/2021 EXAMINATION: XR CHEST ONE VIEW CLINICAL HISTORY: left hemothorax, hemoglobin decreased 2 points o/n Pleural Effusion, comparison TECHNIQUE: 1 view of the chest , AP upright COMPARISON: 03/08/2021 chest radiograph FINDINGS: Unchanged orientation of apically directed left chest tube. Left chestpacemaker leads terminating over the right atrium and right ventricle. No appreciable pneumothorax. Increasing opacification of the left lung base and midlung zone suspiciousfor increasing left hemothorax. The right lung is clear. Unchanged cardiomediastinal silhouette andhilar contours. 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 Redemonstrated remote RIGHT lateral ribfractures. No acute osseous abnormality. IMPRESSION 1. Increasing small to moderate left, partially loculated hemothorax. 2. No appreciable pneumothorax or change in orientation of the left chesttube. Preliminary report signed by: Raj Tamayo at 03/09/2021 7:03 AM I have personally reviewed the image(s) and the resident's interpretationand agree with the findings, Tirso Burton MD at 03/09/2021 7:28 AM Thank you for letting us participate in the care of this patient. If youare a health care provider and have any questions regarding this report,please contact the number below. For patients who have questions please contactthe health emergency care attendant that requested your imaging first. Kendall Khalil MD IMG DX ORDERABLES * POCT Glucose (03/09/2021 4:42 AM EDT) [facility] Glucose, POC 177 65 - 199 mg/dL [facility] Comment: Supplemental ranges: <140 mg/dL before meals <180 mg/dL all other times of the day Blood 03/09/2021 4:42 AM EDT 03/09/2021 4:42 AM EDT Kendall Khalil MD POINT OF CARE TEST O RDERABLES [facility] [place] [address] * (ABNORMAL) Differential, Automated (03/09/2021 2:57 AM EDT) [facility] Neutrophil % 82.6 % [facility] Neutrophil Absolute 10.25(H) 1.70 - 6.10 x10(3)/mc L [facility] Lymph % 8.4 % [facility] Lymphocytes Abs 1.0 0.9 - 3.2 x10(3)/mc L [facility] Monocyte % 7.8 % [facility] Monocyte Abs 1.0(H) 0.3 - 0.9 x10(3)/mc L [facility] Eos % 0.6 % [facility] Eosinophils Abs 0.1 0.0 - 0.4 x10(3)/mc L [facility] Basophil % 0.2 % [facility] Baso Absolute 0.0 0.0 - 0.1 x10(3)/mc L [facility] Immature Gran % 0.40 % [facility] Comment: Immature granulocytes(IG's)percentage and absolute count will include metamyelocytes, myelocytes, and promyelocytes. Blood smears from CBCs yielding IG's will be scanned manually for concordance. If this scan disagrees with the automated IG or if promyelocytes are noted, a manual differential will be performed. Immature Gran Absolute 0.05(H) 0.00 - 0.04 x10(3)/mc L [facility] Blood 03/09/2021 2:57 AM EDT 03/09/2021 3:31 AM EDT Narrative Resulting Agency Comment Spec In Lab Ashanti May MD HEMATOLOGY ORDERABLE S [facility] [place] [address] * (ABNORMAL) Hemogram (03/09/2021 2:57 AM EDT) White Blood Cell 12.4(H) 4.0 - 9.5 x10(3)/ L [facility] Red Blood Cell 2.64(L) 4.58 - 5.54 x10(6)/mc L [facility] Hemoglobin 7.9(L) 13.7 - 16.5 gm/dL [facility] Hematocrit 23.6(L) 40.5 - 48.5 % [facility] Mean Cell Volume 89.4 82.9 - 93.1 fL [facility] Mean Cell Hemoglobin 29.9 27.5 - 32.1 pg [facility] Mean Cell Hemoglobin Concentration 33.5 32.0 - 35.7 gm/dL [facility] Platelet 187 145 - 357 x10(3)/mc L [facility] RDW Standard Deviation 43.7 36.0 - 45.0 [facility] RDW coefficient of variation 13.4 11.4 - 13.8 % [facility] Mean Platelet Volume 10.4 7.6 - 12.9 fL [facility] NRBC% auto 0.0 % [facility] NRBC Absolute 0.000 0.000 - 0.000 x10(3)/mc L [facility] Blood 03/09/2021 2:57 AM EDT 03/09/2021 3:31 AM EDT Narrative Resulting Agency Comment Spec In Lab Ashanti May MD HEMATOLOGY ORDERABLE S Performing Organization Address [facility]/ZIP Co de Phone Number [facility] [place] [address] * Phosphorus (03/09/2021 2:57 AM EDT) Phosphorus 3.1 2.5 - 4.5 mg/dL [facility] Blood 03/09/2021 2:57 AM EDT 03/09/2021 3:31 AM EDT Narrative Resulting Agency Comment Spec In Lab Kendall Khalil MD CHEMISTRY ORDERABLES Performing Organization Address [facility] Co de Phone Number [facility] [place] [address] * Magnesium (03/09/2021 2:57 AM EDT) Magnesium 0.85 0.69 - 1.07 mmol/L [facility] Blood 03/09/2021 2:57 AM EDT 03/09/2021 3:31 AM EDT Narrative Resulting Agency Comment Spec In Lab Kendall Khalil MD CHEMISTRY ORDERABLES Performing Organization Address [facility] Co de Phone Number [facility] [place] [address] * (ABNORMAL) Basic Metabolic Panel (non-fasting) (03/09/2021 2:57 AM EDT) Glucose 112 65 - 199 mg/dL [facility] Comment:Diabetes: >=200 mg/d L plus symptoms Blood Urea Nitrogen 14 10 - 20 mg/dL [facility] Creatinine 0.81 0.80 - 1.50 mg/dL [facility] Sodium 132(L) 135 - 145 mmol/L [facility] Potassium 4.1 3.5 - 5.0 mmol/L [facility] Comment: Please note: ??Patients with WBC >100,000 may have falsely elevated Potassium levels. ??For accurate Potassium quantification in these patients send serum separator tube (gold top) for subsequent determinations. ??Contact the Clinical Chemistry Laboratory if there are any questions. Chloride 98 98 - 107 mmol/L [facility] Carbon Dioxide 26 22 - 31 mmol/L [facility] Anion Gap 8 5 - 15 mmol/L [facility] Calcium 8.0(L) 8.5 - 10.5 mg/dL [facility] Est Glomerular Filtration Rate 89 >=60 mL/min/1. 73 m?? [facility] Comment: This patient? s estimated glomerular filtration rate (eGFR) is between 89 mL/min/1.73 m2 (patients with less muscle mass per kg body weight) and 104 mL/min/1.73 m2 (patients with more muscle mass [...] and symptoms in addition to eGFR. Blood 03/09/2021 2:57 AM EDT 03/09/2021 3:31 AM EDT Narrative Resulting Agency Comment Spec In Lab Kendall Khalil MD CHEMISTRY ORDERABLES [facility] [place] [address] * (ABNORMAL) Differential, Automated (03/08/2021 8:40 PM EDT) Neutrophil % 86.8 % [facility] Neutrophil Absolute 12.59(H) 1.70 - 6.10 x10(3)/mc L [facility] Lymph % 4.5 % [facility] Lymphocytes Abs 0.7(L) 0.9 - 3.2 x10(3)/ L [facility] Monocyte % 7.5 % [facility] Monocyte Abs 1.1(H) 0.3 - 0.9 x10(3)/ L [facility] Eos % 0.0 % [facility] Eosinophils Abs 0.0 0.0 - 0.4 x10(3)/[facility] Basophil % 0.1 % [facility] Baso Absolute 0.0 0.0 - 0.1 x10(3)/[facility] Immature Gran % 1.10 % [facility] Comment: Immature granulocytes(IG's)percentage and absolute count will include metamyelocytes, myelocytes, and promyelocytes. Blood smears from CBCs yielding IG's will be scanned manually for concordance. If this scan disagrees with the automated IG or if promyelocytes are noted, a manual differential will be performed. Immature Gran Absolute 0.16(H) 0.00 - 0.04 x10(3)/[facility] Blood 03/08/2021 8:40 PM EDT 03/08/2021 8:49 PM EDT Narrative Resulting Agency Comment Spec In Lab Jian Olivarez MD HEMATOLOGY ORDERABLE S [facility] [place] [address] * (ABNORMAL) Hemogram (03/08/2021 8:40 PM EDT) White Blood Cell 14.5(H) 4.0 - 9.5 x10(3)/[facility] Red Blood Cell 3.29(L) 4.58 - 5.54 x10(6)/ L [facility] Hemoglobin 9.7(L) 13.7 - 16.5 gm/dL [facility] Hematocrit 29.0(L) 40.5 - 48.5 % [facility] Mean Cell Volume 88.1 82.9 - 93.1 fL [facility] Mean Cell Hemoglobin 29.5 27.5 - 32.1 pg [facility] Mean Cell Hemoglobin Concentration 33.4 32.0 - 35.7 gm/dL [facility] Platelet 187 145 - 357 x10(3)/mc L [facility] RDW Standard Deviation 43.1 36.0 - 45.0 [facility] RDW coefficient of variation 13.2 11.4 - 13.8 % [facility] Mean Platelet Volume 10.3 7.6 - 12.9 [facility] NRBC% auto 0.0 % [facility] NRBC Absolute 0.000 0.000 - 0.000 x10(3)/mc L [facility] Blood 03/08/2021 8:40 PM EDT 03/08/2021 8:49 PM EDT Narrative Resulting Agency Comment Spec In Lab Jian Olivarez MD HEMATOLOGY ORDERABLE S [facility] [place] [address] * Type and Screen Validity (03/08/2021 4:36 PM EDT) [facility] T&S only valid at [facility] Comment:This Type and Screen result is only valid at the [facility] Blood 03/08/2021 4:36 PM EDT 03/08/2021 4:41 PM EDT Narrative Resulting Agency Comment Spec In Lab Ashanti May MD BLOOD BANK LAB ORDER MADDISON [facility] [place] [address] * ABORH Recheck Status (03/08/2021 4:36 PM EDT) ABORH Type Recheck Completed [facility] Blood 03/08/2021 4:36 PM EDT 03/08/2021 4:41 PM EDT Narrative Resulting Agency Comment Spec In Lab Ashanti May MD BLOOD BANK LAB ORDER MADDISON [facility] [place] [address] * Antibody screen (03/08/2021 4:36 PM EDT) Ab Screen Interp Negative [facility] Expires at [id number] on: 03/11/2021 [facility] Blood 03/08/2021 4:36 PM EDT 03/08/2021 4:41 PM EDT Narrative Resulting Agency Comment Spec In Lab Ashanti May MD BLOOD BANK LAB ORDER MADDISON [facility] [place] [address] * ABO/Rh Typing (03/08/2021 4:36 PM EDT) ABORH Type A Neg [facility] Blood 03/08/2021 4:36 PM EDT 03/08/2021 4:41 PM EDT Narrative Resulting Agency Comment Spec In Lab Ashanti May MD BLOOD BANK LAB ORDER MADDISON [facility] [place] [address] * XR Chest One View (03/08/2021 3:00 PM EDT) Anatomical Region Laterality Modality Chest N/A Digital Radiogra phy Impressions 03/08/2021 3:08 PM EDT No pneumothorax seen. Thank you for letting us participate in the care of this patient. ??If you are a health care provider and have any questions regarding this report, please contact the number below. ??For patients who have questions please contact the health emergency care attendant that requested your imaging first. ? Electronically signed by: Malika Thayer MD, [facility] ([phone]), at 03/08/2021 3:08 PM Narrative 03/08/2021 3:08 PM EDT EXAMINATION: XR CHEST ONE VIEW CLINICAL HISTORY: Sp L VATS decort , blebectomy and talc pleurodesis TECHNIQUE: Portable AP chest radiograph on ??03/08/2021 at 1438 hours. COMPARISON: 03/08/2021 at 0311 hours. FINDINGS: Equipment in unchanged position. No significant change in appearance of the lungs, allowing for slightly lower lung volumes from shallower inspiration. No appreciable pneumothorax. No pleural fluid seen although note that the lateral costophrenic angles are incompletely imaged. Unchanged cardiomediastinal silhouette and vascular markings. Procedure Note Malika Thayer MD - 03/08/2021 EXAMINATION: XR CHEST ONE VIEW CLINICAL HISTORY: Sp L VATS decort , blebectomy and talc pleurodesis TECHNIQUE: Portable AP chest radiograph on 03/08/2021 at 1438 hours. COMPARISON: 03/08/2021 at 0311 hours. FINDINGS: Equipment in unchanged position. No significant change inappearance of the lungs, allowing for slightly lower lung volumes from shallower inspiration. No appreciable pneumothorax. No pleural fluid seen althoughnote that the lateral costophrenic angles are incompletely imaged. Unchanged cardiomediastinal silhouette and vascular markings. IMPRESSION No pneumothorax seen. Thank you for letting us participate in the care of this patient. If youare a health care provider and have any questions regarding this report,please contact the number below. For patients who have questions please contactthe health emergency care attendant that requested your imaging first. Kendall Khalil MD IMG DX ORDERABLES * EKG 12 Lead (03/08/2021 12:56 PM EDT) Pathologist [facility] Ventricular rate 92 BPM MUSE SYSTEM Atrial Rate 92 BPM MUSE SYSTEM P-R Interval 180 ms MUSE SYSTEM QRS Duration 166 ms MUSE SYSTEM Q-T Interval 426 ms MUSE SYSTEM QTC Calculated (Bezet) 526 ms MUSE SYSTEM Calculated P Manns Choice 43 degrees MUSE SYSTEM Calculated R Manns Choice -63 degrees MUSE SYSTEM Calculated T Manns Choice 62 degrees MUSE SYSTEM INTERPRETATION Atrial-sense d ventricular- paced rhythm Underlying normal sinus rhythm Abnormal ECG When compared with ECG of 05-MAR-2021 15:30, Vent. rate has increased BY ??19 BPM Confirmed by Devonte Newsome ([id number]) on 03/08/2021 4:10:26 PM MUSE SYSTEM 03/08/2021 12:5 6 PM EDT 03/08/2021 4:10 PM EDT Kendall Khalil MD ECG ORDERABLES MUSE SYSTEM * (ABNORMAL) Differential, Automated (03/08/2021 12:47 PM EDT) Pathologist [facility] Neutrophil % 85.5 % [facility] Neutrophil Absolute 9.55(H) 1.70 - 6.10 x10(3)/mc L [facility] Lymph % 5.6 % [facility] Lymphocytes Abs 0.6(L) 0.9 - 3.2 x10(3)/mc L [facility] Monocyte % 8.1 % [facility] Monocyte Abs 0.9 0.3 - 0.9 x10(3)/mc L [facility] Eos % 0.1 % [facility] Eosinophils Abs 0.0 0.0 - 0.4 x10(3)/ L [facility] Basophil % 0.3 % [facility] Baso Absolute 0.0 0.0 - 0.1 x10(3)/[facility] Immature Gran % 0.40 % [facility] Comment: Immature granulocytes(IG's)percentage and absolute count will include metamyelocytes, myelocytes, and promyelocytes. Blood smears from CBCs yielding IG's will be scanned manually for concordance. If this scan disagrees with the automated IG or if promyelocytes are noted, a manual differential will be performed. Immature Gran Absolute 0.05(H) 0.00 - 0.04 x10(3)/[facility] Blood 03/08/2021 12:4 7 PM EDT 03/08/2021 12:57 PM EDT Narrative Resulting Agency Comment Spec In Lab Ashanti May MD HEMATOLOGY ORDERABLE S [facility] [place] [address] * (ABNORMAL) Hemogram (03/08/2021 12:47 PM EDT) White Blood Cell 11.2(H) 4.0 - 9.5 x10(3)/[facility] Red Blood Cell 3.59(L) 4.58 - 5.54 x10(6)/ L [facility] Hemoglobin 10.6(L) 13.7 - 16.5 gm/dL [facility] Hematocrit 31.6(L) 40.5 - 48.5 % [facility] Mean Cell Volume 88.0 82.9 - 93.1 fL [facility] [facility] Mean Cell Hemoglobin 29.5 27.5 - 32.1 pg [facility] Mean Cell Hemoglobin Concentration 33.5 32.0 - 35.7 gm/dL [facility] Platelet 170 145 - 357 x10(3)/ L [facility] RDW Standard Deviation 43.1 36.0 - 45.0 [facility] LABORATORY RDW coefficient of variation 13.2 11.4 - 13.8 % [facility] Mean Platelet Volume 10.6 7.6 - 12.9 [facility] LABORATORY NRBC% auto 0.0 % [facility] NRBC Absolute 0.000 0.000 - 0.000 x10(3)/mc L [facility] Blood 03/08/2021 12:4 7 PM EDT 03/08/2021 12:57 PM EDT Narrative Resulting Agency Comment Spec In Lab Ashanti May MD HEMATOLOGY ORDERABLE S Performing Organization Address City/[facility]/ZIP Co de Phone Number [facility] [place] [address] * Phosphorus (03/08/2021 12:47 PM EDT) Phosphorus 2.7 2.5 - 4.5 mg/dL [facility] Blood 03/08/2021 12:4 7 PM EDT 03/08/2021 12:57 PM EDT Narrative Resulting Agency Comment Spec In Lab Kendall Khalil MD CHEMISTRY ORDERABLES Performing Organization Address City/[facility]/ZIP Co de Phone Number [facility] [place] [address] * Magnesium (03/08/2021 12:47 PM EDT) Magnesium 0.70 0.69 - 1.07 mmol/L [facility] Blood 03/08/2021 12:4 7 PM EDT 03/08/2021 12:57 PM EDT Narrative Resulting Agency Comment Spec In Lab Kendall Khalil MD CHEMISTRY ORDERABLES Performing Organization Address City/[facility]/ZIP Co de Phone Number [facility] [place] [address] * (ABNORMAL) Basic Metabolic Panel (non-fasting) (03/08/2021 12:47 PM EDT) Glucose 109 65 - 199 mg/dL [facility] Comment:Diabetes: >=200 mg/d L plus symptoms Blood Urea Nitrogen 12 10 - 20 mg/dL [facility] Creatinine 0.78(L) 0.80 - 1.50 mg/dL [facility] Sodium 137 135 - 145 mmol/L [facility] Potassium 4.0 3.5 - 5.0 mmol/L [facility] Comment: Please note: ??Patients with WBC >100,000 may have falsely elevated Potassium levels. ??For accurate Potassium quantification in these patients send serum separator tube (gold top) for subsequent determinations. ??Contact the Clinical Chemistry Laboratory if there are any questions. Chloride 101 98 - 107 mmol/L [facility] Carbon Dioxide 26 22 - 31 mmol/L [facility] Anion Gap 10 5 - 15 mmol/L [facility] Calcium 8.5 8.5 - 10.5 mg/dL [facility] Est Glomerular Filtration Rate 91 >=60 mL/min/1. 73 m?? [facility] Comment: This patient? s estimated glomerular filtration rate (eGFR) is between 91 mL/min/1.73 m2 (patients with less muscle mass per kg body weight) and 105 mL/min/1.73 m2 (patients with more muscle mass [...] and symptoms in addition to eGFR. Blood 03/08/2021 12:4 7 PM EDT 03/08/2021 12:57 PM EDT Narrative Resulting Agency Comment Spec In Lab Kendall Khalil MD CHEMISTRY ORDERABLES [facility] [place] [address] * CT Head wo Contrast (Generic) (03/08/2021 11:36 AM EDT) Anatomical Region Laterality Modality Head Computed Tomogra phy Impressions 03/08/2021 11:42 AM EDT No intracranial hemorrhage or other acute intracranial abnormality. Thank you for letting us participate in the care of this patient. ??If you are a health care provider and have any questions regarding this report, please contact the number below. ??For patients who have questions please contact the health emergency care attendant that requested your imaging first. ? Narrative 03/08/2021 11:42 AM EDT EXAMINATION: CT HEAD WO CONTRAST (GENERIC) CLINICAL HISTORY: Dizziness, non-specific fall out bed, theupeutic anticoagulation TECHNIQUE: CT head performed without intravenous contrast administration. COMPARISON: None FINDINGS: The ventricles are normal in size and contour. There is no acute intracranial hemorrhage or extra-axial collection. No intracranial mass, mass effect, or shift. No CT evidence of acute territorial infarct. There is no calvarial fracture. Procedure Note Yrn Bhatt MD - 03/08/2021 EXAMINATION: CT HEAD WO CONTRAST (GENERIC) CLINICAL HISTORY: Dizziness, non-specific fall out bed, theupeutic anticoagulation TECHNIQUE: CT head performed without intravenous contrast administration. COMPARISON: None FINDINGS: The ventricles are normal in size and contour. There is no acuteintracranial hemorrhage or extra-axial collection. No intracranial mass, mass effect,or shift. No CT evidence of acute territorial infarct. There is nocalvarial fracture. IMPRESSION No intracranial hemorrhage or other acute intracranial abnormality. Thank you for letting us participate in the care of this patient. If youare a health care provider and have any questions regarding this report,please contact the number below. For patients who have questions please contactthe health emergency care attendant that requested your imaging first. Kendall Khalil MD IMG CT ORDERABLES * (ABNORMAL) Hemogram (03/08/2021 3:56 AM EDT) White Blood Cell 9.8(H) 4.0 - 9.5 x10(3)/mc L [facility] Red Blood Cell 3.75(L) 4.58 - 5.54 x10(6)/mc L [facility] Hemoglobin 11.2(L) 13.7 - 16.5 gm/dL [facility] Hematocrit 33.6(L) 40.5 - 48.5 % [facility] Mean Cell Volume 89.6 82.9 - 93.1 fL [facility] Mean Cell Hemoglobin 29.9 27.5 - 32.1 pg [facility] Mean Cell Hemoglobin Concentration 33.3 32.0 - 35.7 gm/dL [facility] Platelet 165 145 - 357 x10(3)/mc L [facility] RDW Standard Deviation 44.4 36.0 - 45.0 [facility] LABORATORY RDW coefficient of variation 13.5 11.4 - 13.8 % [facility] Mean Platelet Volume 10.3 7.6 - 12.9 fL [facility] NRBC% auto 0.0 % [facility] NRBC Absolute 0.000 0.000 - 0.000 x10(3)/ L [facility] Blood 03/08/2021 3:56 AM EDT 03/08/2021 4:10 AM EDT Narrative Resulting Agency Comment Spec In Lab Jian Olivarez MD HEMATOLOGY ORDERABLE S [facility] [place] [address] * (ABNORMAL) Differential, Automated (03/08/2021 3:56 AM EDT) Neutrophil % 79.2 % [facility] Neutrophil Absolute 7.71(H) 1.70 - 6.10 x10(3)/mc L [facility] Lymph % 9.6 % [facility] Lymphocytes Abs 0.9 0.9 - 3.2 x10(3)/ L [facility] Monocyte % 9.1 % [facility] Monocyte Abs 0.9 0.3 - 0.9 x10(3)/ L [facility] Eos % 1.3 % [facility] Eosinophils Abs 0.1 0.0 - 0.4 x10(3)/ L [facility] Basophil % 0.4 % [facility] Baso Absolute 0.0 0.0 - 0.1 x10(3)/mc L [facility] Immature Gran % 0.40 % [facility] Comment: Immature granulocytes(IG's)percentage and absolute count will include metamyelocytes, myelocytes, and promyelocytes. Blood smears from CBCs yielding IG's will be scanned manually for concordance. If this scan disagrees with the automated IG or if promyelocytes are noted, a manual differential will be performed. Immature Gran Absolute 0.04 0.00 - 0.04 x10(3)/ L [facility] Blood 03/08/2021 3:56 AM EDT 03/08/2021 4:10 AM EDT Narrative Resulting Agency Comment Spec In Lab Jian Olivarez MD HEMATOLOGY ORDERABLE S [facility] [place] [address] * XR Chest PA & Lateral (Generic) (03/08/2021 3:15 AM EDT) Anatomical Region Laterality Modality Chest N/A Digital Radiogra phy Impressions 03/08/2021 4:51 AM EDT 1. ??Unchanged left chest tube positioning. No pneumothorax. 2. ??Small bibasilar effusions. The left effusion has decreased in size compared to 03/06/2021. Preliminary report signed by: Raj Tamayo at 03/08/2021 4:44 AM I have personally reviewed the image(s) and the resident's interpretation and agree with the findings, Tirso Burton MD at 03/08/2021 4:51 AM Thank you for letting us participate in the care of this patient. ??If you are a health care provider and have any questions regarding this report, please contact the number below. ??For patients who have questions please contact the health emergency care attendant that requested your imaging first. ? Narrative 03/08/2021 4:51 AM EDT EXAMINATION: XR CHEST PA AND LATERAL (GENERIC) CLINICAL HISTORY: Chest tube output morebloody. ?hematoma/hemothorax TECHNIQUE: PA and lateral views of the chest COMPARISON: 03/06/2021 chest radiograph FINDINGS: Unchanged positioning of the apically directed left chest tube. No visualized pneumothorax. Interval decrease in small left pleural effusion/hemothorax. Slight interval increase in blunting at the right lateral costophrenic angle. The lungs are clear. Unchanged cardiomediastinal silhouette and hilar contours. Redemonstrated remote right lateral rib fractures. No acute osseous abnormality. Midline sternotomy wires are intact. Left chest pacemaker with lead tips projecting over the right atrium and right ventricle. Prosthetic aortic and mitral valve annuli. Procedure Note Tirso Burton MD - 03/08/2021 EXAMINATION: XR CHEST PA AND LATERAL (GENERIC) CLINICAL HISTORY: Chest tube output morebloody. ?hematoma/hemothorax TECHNIQUE: PA and lateral views of the chest COMPARISON: 03/06/2021 chest radiograph FINDINGS: Unchanged positioning of the apically directed left chest tube. Novisualized pneumothorax. Interval decrease in small left pleuraleffusion/hemothorax. Slight interval increase in blunting at the right lateral costophrenicangle. The lungs are clear. Unchanged cardiomediastinal silhouette and hilarcontours. Redemonstrated remote right lateral rib fractures. No acute osseousabnormality. Midline sternotomy wires are intact. Left chest pacemaker with lead tips projecting over the right atrium andright ventricle. Prosthetic aortic and mitral valve annuli. IMPRESSION 1. Unchanged left chest tube positioning. No pneumothorax. 2. Small bibasilar effusions. The left effusion has decreased in sizecompared to 03/06/2021. Preliminary report signed by: Raj Tamayo at 03/08/2021 4:44 AM I have personally reviewed the image(s) and the resident's interpretationand agree with the findings, Tirso Burton MD at 03/08/2021 4:51 AM Thank you for letting us participate in the care of this patient. If youare a health care provider and have any questions regarding this report,please contact the number below. For patients who have questions please contactthe health emergency care attendant that requested your imaging first. Kendall Khalil MD IMG DX ORDERABLES * APTT (03/06/2021 2:00 PM EDT) [facility] Signature Partial Thromboplastin Time 32 25 - 37 sec [facility] Comment: The PTT is NOT appropriate for heparin monitoring. Use the Anti-Xa level for heparin monitoring (HEP UFH) or LMWH monitoring (HEP LMW). A PTT less than 37 seconds generally indicates adequate hemostasis. Blood specimen (specimen) 03/06/2021 2:00 PM EDT 03/06/2021 2:10 PM EDT Narrative Resulting Agency Comment Spec In Lab Kendall Khalil MD HEMATOLOGY ORDERABLE S Performing Organization Address [facility] de Phone Number [facility] [place] [address] * (ABNORMAL) Prothrombin Time (03/06/2021 2:00 PM EDT) Prothrombin Time 15.9(H) 9.4 - 12.5 sec [facility] International Normalization Ratio 1.4 [facility] Comment: An INR <2.0 indicates [...] be appropriate depending on clinical circumstances. Blood specimen (specimen) 03/06/2021 2:00 PM EDT 03/06/2021 2:10 PM EDT Narrative Resulting Agency Comment Spec In Lab Kendall Khalil MD HEMATOLOGY ORDERABLE S Performing Organization Address [facility] Co de Phone Number [facility] [place] [address] * XR Chest One View (03/06/2021 1:06 PM EDT) Anatomical Region Laterality Modality Chest N/A Digital Radiogra phy Impressions 03/06/2021 2:55 PM EDT 1. ??No pneumothorax or pleural effusion. 2. ??Stable moderate to severe chronic emphysematous disease. I have personally reviewed the image(s) and the resident's interpretation and agree with the findings, GERMANIA BLAIR MD at 03/06/2021 2:55 PM Thank you for letting us participate in the care of this patient. ??If you are a health care provider and have any questions regarding this report, please contact the number below. ??For patients who have questions please contact the health emergency care attendant that requested your imaging first. ? Electronically signed by: GERMANIA BLAIR MD, [facility] ([phone]), at 03/06/2021 2:55 PM Narrative 03/06/2021 2:55 PM EDT EXAMINATION: XR CHEST ONE VIEW CLINICAL HISTORY: post op left decort/pleurodesis TECHNIQUE: AP chest radiograph COMPARISON: Chest radiograph 03/05/2021, CT chest 11/18/2016 FINDINGS: Left sided cardiac pulse generator with leads terminating in the region of the right atrium and right ventricle. Unchanged appearance of aortic and mitral valve replacements. There has been interval placement of a left apical pleural drainage catheter. The left lung is reexpanded. No pneumothorax or pleural effusion. Unchanged bilateral apical predominant emphysematous changes with interstitial thickening. Left basilar atelectasis. Cardiomediastinal silhouette is within normal limits. No focal osseous lesions. Procedure Note Germania Blair MD - 03/06/2021 EXAMINATION: XR CHEST ONE VIEW CLINICAL HISTORY: post op left decort/pleurodesis TECHNIQUE: AP chest radiograph COMPARISON: Chest radiograph 03/05/2021, CT chest 11/18/2016 FINDINGS: Left sided cardiac pulse generator with leads terminating in the region ofthe right atrium and right ventricle. Unchanged appearance of aortic andmitral valve replacements. There has been interval placement of a left apicalpleural drainage catheter. The left lung is reexpanded. No pneumothorax or pleural effusion.Unchanged bilateral apical predominant emphysematous changes with interstitialthickening. Left basilar atelectasis. Cardiomediastinal silhouette is within normallimits. No focal osseous lesions. IMPRESSION 1. No pneumothorax or pleural effusion. 2. Stable moderate to severe chronic emphysematous disease. I have personally reviewed the image(s) and the resident's interpretationand agree with the findings, GERMANIA BLAIR MD at 03/06/2021 2:55 PM Thank you for letting us participate in the care of this patient. If youare a health care provider and have any questions regarding this report,please contact the number below. For patients who have questions please contactthe health emergency care attendant that requested your imaging first. Electronically signed by: GERMANIA BLAIR MD, [facility]([phone]), at 03/06/2021 2:55 PM Kendall Khalil MD IMG DX ORDERABLES * Specimen to Pathology (03/06/2021 10:57 AM EDT) AP Specimen 03/06/2021 10:5 7 AM EDT 03/06/2021 10:57 AM EDT Narrative [facility] - 03/06/2021 10:57 AM EDT Specimen requisition ordered. ??Separate Pathology report to follow Kendall Khalil MD PATHOLOGY/CYTOLOGY O RDERABLES [facility] [place] [address] * Surgical Pathology Report (03/06/2021 10:56 AM EDT) Final Diagnosis [id number] ? Location: 3WST; [facility]; A The signing pathologist has (i) examined the relevant preparation(s) for the specimen(s) and (ii) rendered or confirmed the diagnosis(es). . 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 Mesothelial reactive atypia and inflammation. Electronically signed by: ?Renetta Fraga DO Verified: ??03/12/2021 8:34 ?? Pathologist Performed at: ??-[facility] [place], [place], [place] ADDITIONAL STUDIES Immunohistochemistry Studies: Formalin-fixed, paraffin-embedded tissue sections are studied using the polymer technique with appropriate positive and negative controls. ?These IHC studies provide the pathologist with adjunctive diagnostic information. Antibody specificity has been verified by testing antibodies on a series of in-house tissues with known immunohistochemical performance characteristics. The clinical interpretation of any antibody positive staining or its absence is evaluated within the context of clinical presentation, morphology, histopathological criteria and other diagnostic tests. Block ? Antibody ?Result (Positive/Negative) A1 ? Calretinin ? Positive in reactive mesothelium. SPECIMEN(S) SUBMITTED A - bullectomy left lung, excision (1) CLINICAL INFORMATION Left spontaneous pneumothorax SPECIMEN PROCESSING A - Labeled/Fixative: Bullectomy left lung, fresh. Quantity/Size: ??Single, 9 x 4 x 2 cm. Tissue Description: Disrupted wedge resection of lung. Pleural Surface: ??Ragged and cauterized, with evidence of adhesion. There is a single ruptured bulla occupying 20% of the pleural surface. A 9 cm parenchymal staple line is present. Parenchyma: Armenta-brown and emphysematous. The bulla occupies 80% of the parenchymal volume. Sections/Processing: [employer] sections in 4 cassettes as follows: ?A1: ??Stapled parenchymal margin, en face ?A2-A4: ??[employer] parenchyma with bleb and adhesions ??erjg 03/12/2021 8:34 AM EDT [facility] LUNG STRUCTURE / Unknown 03/06/2021 10:56 AM EDT 03/06/2021 10:56 AM EDT Kendall Khalil MD PATHOLOGY/CYTOLOGY O RDERAJUAN [facility] [place] [address] * Prepare thawed plasma (03/06/2021 7:20 AM EDT) Pathologist [facility] Dispensed? Yes [facility] Blood specimen (specimen) 03/06/2021 7:20 AM EDT 03/06/2021 7:17 AM EDT Narrative Resulting Agency Comment Spec In Lab Kendall Khalil MD BLOOD BANK PRODUCT O RDERABLES Performing Organization Address [facility] Co de Phone Number [facility] [place] [address] * (ABNORMAL) Prothrombin Time (03/06/2021 4:50 AM EDT) [facility] Prothrombin Time 20.6(H) 9.4 - 12.5 sec [facility] International Normalization Ratio 1.8 [facility] Comment: An INR <2.0 indicates [...] be appropriate depending on clinical circumstances. Blood specimen (specimen) 03/06/2021 4:50 AM EDT 03/06/2021 5:09 AM EDT Narrative Resulting Agency Comment Spec In Lab Kendall Khalil MD HEMATOLOGY ORDERABLE S Performing Organization Address [facility]/ZIP Co de Phone Number [facility] [place] [address] * SCAN DOC: LAB (03/06/2021 12:00 AM EDT) Narrative 03/06/2021 12:00 AM EDT Ordered by an unspecified provider. Scanning Provider MEDIA MGR SCAN EXT O RDR/RSLT * Type and Screen Validity (03/05/2021 6:10 PM EDT) [facility] T&S only valid at [facility] LABORATORY Comment:This Type and Screen result is only valid at the [facility] Blood specimen (specimen) 03/05/2021 6:10 PM EDT 03/05/2021 6:15 PM EDT Narrative Resulting Agency Comment Spec In Lab Kenneth Newby MD BLOOD BANK LAB ORD ERABLES [facility] [place] [address] * ABORH Recheck Status (03/05/2021 6:10 PM EDT) [facility] Recheck Order Order Placed [facility] ABORH Type Recheck Complete [facility] Blood specimen (specimen) 03/05/2021 6:10 PM EDT 03/05/2021 6:15 PM EDT Narrative Resulting Agency Comment Spec In Lab Kenneth Newby MD BLOOD BANK LAB ORD ERABLES [facility] [place] [address] * Antibody screen (03/05/2021 6:10 PM EDT) Ab Screen Interp Negative [facility] Expires at [id number] on: 03/08/2021 [facility] Blood specimen (specimen) 03/05/2021 6:10 PM EDT 03/05/2021 6:15 PM EDT Narrative Resulting Agency Comment Spec In Lab Kenneth Newby MD BLOOD BANK LAB ORD ERABLES [facility] [place] [address] * ABO/Rh Typing (03/05/2021 6:10 PM EDT) ABORH Type A Neg [facility] Blood specimen (specimen) 03/05/2021 6:10 PM EDT 03/05/2021 6:15 PM EDT Narrative Resulting Agency Comment Spec In Lab Kenneth Newby MD BLOOD BANK LAB ORD ERABLES [facility] [place] [address] * Differential, Automated (03/05/2021 4:21 PM EDT) Neutrophil % 68.0 % [facility] Neutrophil Absolute 4.90 1.70 - 6.10 x10(3)/[facility] LABORATORY Lymph % 17.1 % [facility] Lymphocytes Abs 1.2 0.9 - 3.2 x10(3)/[facility] LABORATORY Monocyte % 9.4 % [facility] Monocyte Abs 0.7 0.3 - 0.9 x10(3)/[facility] LABORATORY Eos % 4.6 % [facility] Eosinophils Abs 0.3 0.0 - 0.4 x10(3)/[facility] LABORATORY Basophil % 0.8 % [facility] Baso Absolute 0.1 0.0 - 0.1 x10(3)/[facility] LABORATORY Immature Gran % 0.10 % [facility] Comment: Immature granulocytes(IG's)percentage and absolute count will include metamyelocytes, myelocytes, and promyelocytes. Blood smears from CBCs yielding IG's will be scanned manually for concordance. If this scan disagrees with the automated IG or if promyelocytes are noted, a manual differential will be performed. Immature Gran Absolute 0.01 0.00 - 0.04 x10(3)/[facility] LABORATORY Blood specimen (specimen) 03/05/2021 4:21 PM EDT 03/05/2021 4:37 PM EDT Narrative Resulting Agency Comment Spec In Lab Kota Leyva MD HEMATOLOGY ORDERABLE S [facility] [place] [address] * (ABNORMAL) Hemogram (03/05/2021 4:21 PM EDT) [facility] White Blood Cell 7.2 4.0 - 9.5 x10(3)/mc L [facility] Red Blood Cell 4.60 4.58 - 5.54 x10(6)/mc L [facility] Hemoglobin 13.7 13.7 - 16.5 gm/dL [facility] Hematocrit 40.4(L) 40.5 - 48.5 % [facility] Mean Cell Volume 87.8 82.9 - 93.1 fL [facility] Mean Cell Hemoglobin 29.8 27.5 - 32.1 pg [facility] Mean Cell Hemoglobin Concentration 33.9 32.0 - 35.7 gm/dL [facility] Platelet 197 145 - 357 x10(3)/mc L [facility] RDW Standard Deviation 44.7 36.0 - 45.0 [facility] LABORATORY RDW coefficient of variation 13.8 11.4 - 13.8 % [facility] Mean Platelet Volume 10.0 7.6 - 12.9 [facility] LABORATORY NRBC% auto 0.0 % [facility] LABORATORY NRBC Absolute 0.000 0.000 - 0.000 x10(3)/ L [facility] Blood specimen (specimen) 03/05/2021 4:21 PM EDT 03/05/2021 4:37 PM EDT Narrative Resulting Agency Comment Spec In Lab Kota Leyva MD HEMATOLOGY ORDERABLE S [facility] [place] [address] * (ABNORMAL) Basic Metabolic Panel (non-fasting) (03/05/2021 4:21 PM EDT) Glucose 96 65 - 199 mg/dL [facility] Comment:Diabetes: >=200 mg/d L plus symptoms Blood Urea Nitrogen 23(H) 10 - 20 mg/dL [facility] Creatinine 0.90 0.80 - 1.50 mg/dL [facility] Sodium 138 135 - 145 mmol/L [facility] Potassium 4.5 3.5 - 5.0 mmol/L [facility] Comment: Please note: ??Patients with WBC >100,000 may have falsely elevated Potassium levels. ??For accurate Potassium quantification in these patients send serum separator tube (gold top) for subsequent determinations. ??Contact the Clinical Chemistry Laboratory if there are any questions. Chloride 101 98 - 107 mmol/L [facility] Carbon Dioxide 27 22 - 31 mmol/L [facility] Anion Gap 10 5 - 15 mmol/L [facility] Calcium 9.2 8.5 - 10.5 mg/dL [facility] Est Glomerular Filtration Rate 86 >=60 mL/min/1. 73 m?? [facility] Comment: This patient? s estimated [...] and symptoms in addition to eGFR. Blood specimen (specimen) 03/05/2021 4:21 PM EDT 03/05/2021 4:37 PM EDT Narrative Resulting Agency Comment Spec In Lab Kenneth Newby MD CHEMISTRY ORDERABL ES [facility] [place] [address] * (ABNORMAL) APTT (03/05/2021 4:21 PM EDT) Partial Thromboplastin Time 44(H) 25 - 37 sec [facility] Comment: The PTT is NOT appropriate for heparin monitoring. Use the Anti-Xa level for heparin monitoring (HEP UFH) or LMWH monitoring (HEP LMW). A PTT less than 37 seconds generally indicates adequate hemostasis. Blood specimen (specimen) 03/05/2021 4:21 PM EDT 03/05/2021 4:37 PM EDT Narrative Resulting Agency Comment Spec In Lab Kenneth Newby MD HEMATOLOGY ORDERAB LES Performing Organization Address [facility] Co de Phone Number [facility] [place] [address] * (ABNORMAL) Prothrombin Time (03/05/2021 4:21 PM EDT) Pathologist [facility] Prothrombin Time 24.3(H) 9.4 - 12.5 sec [facility] International Normalization Ratio 2.1 [facility] Comment: An INR <2.0 indicates [...] be appropriate depending on clinical circumstances. Blood specimen (specimen) 03/05/2021 4:21 PM EDT 03/05/2021 4:37 PM EDT Narrative Resulting Agency Comment Spec In Lab Kenneth Newby MD HEMATOLOGY ORDERAB LES Performing Organization Address [facility] Co de Phone Number [facility] [place] [address] * COVID-19 PCR (03/05/2021 3:52 PM EDT) Pathologist [facility] SARS-CoV-2 RNA (Rapid) Not Detected Not Detected [facility] Comment: This result should be [...] using the Simplexa COVID-19 Direct Assay by [employer] as authorized by the FDA issued Emergency [...] Department of Pathology and Laboratory Medicine at [facility], certified under the Clinical Laboratory Improvement Amendments [...] fact sheets at the following FDA website: https://www.fda.gov/medical-devices/zhmbbckylkg-otkzxen-5257-clzmq-45-cmufwplvo- use-a mrcyrvrfpofky-pgocvpf-gwkandj/uznpd-ikyekkzgolm-wkyo SARS-CoV-2 Source [employer] Sw[employer] [facility] Nasopharyngeal swab (specimen) 03/05/2021 3:52 PM EDT 03/05/2021 4:43 PM EDT Comment:Symptoms->Surveillan ce Narrative Resulting Agency Comment Spec In Lab Kenneth Newby MD MICROBIOLOGY - GEN ERAL ORDERABLES Performing Organization Address City/[facility]/ZIP Co de Phone Number [facility] [place] [address] * EKG 12 Lead (03/05/2021 3:30 PM EDT) Ventricular rate 73 BPM MUSE SYSTEM Atrial Rate 73 BPM MUSE SYSTEM P-R Interval 178 ms MUSE SYSTEM QRS Duration 176 ms MUSE SYSTEM Q-T Interval 476 ms MUSE SYSTEM QTC Calculated (Bezet) 524 ms MUSE SYSTEM Calculated P [place] 30 degrees MUSE SYSTEM Calculated R [place] -103 degrees MUSE SYSTEM Calculated T [place] 62 degrees MUSE SYSTEM INTERPRETATION Atrial-sens ed ventricular -paced rhythm Abnormal ECG When compared with ECG of 11-SEP-2007 16:25, Ventricular -paced rhythm is now present Confirmed by MD Emelina, Jordana Blanca ([id number]) on 03/07/2021 3:16:02 PM MUSE SYSTEM 03/05/2021 3:30 PM EDT 03/07/2021 3:16 PM EDT Kenneth Newby MD ECG ORDERABLES Performing Organization Address City/[facility]/ZIP Co de Phone Number MUSE SYSTEM documented in this encounter Visit Diagnoses Diagnosis Recurrent spontaneous pneumothorax- Primary Other pneumothorax Recurrent spontaneous pneumothorax Other pneumothorax Near syncope Syncope and collapse Pacemaker complications, initial encounter Recurrent spontaneous pneumothorax Other pneumothorax documented in this encounter Admitting Diagnoses Diagnosis Recurrent spontaneous pneumothorax Other pneumothorax documented in this encounter Administered Medications Inactive Administered Medications - up to 3 most recent administrations Medication Order MAR Action Action Date Dose Rate Site acetaminophen (Tylenol) tablet 1,000 mg 1,000 mg, Oral, EVERY 8 HOURS, First dose on 03/06/21 at 1315, Until Discontinued, Maximum dose of acetaminophen is 4000 mg from all sources in 24 hours. When ordered for pain, acetaminophen should be given even when other ordered pain medications are indicated. , Routine Given 03/13/2021 2:25 PM EDT 1,000 mg Given 03/13/2021 4:20 AM EDT 1,000 mg Given 03/12/2021 10:13 PM EDT 1,000 mg aspirin EC tablet 81 mg 81 mg, Oral, DAILY, First dose on Mon03/05/21 at 1636, Until Discontinued, Routine Given 03/13/2021 10:01 AM EDT 81 mg Given 03/12/2021 9:46 AM EDT 81 mg Given 03/11/2021 8:38 AM EDT 81 mg docusate sodium (Colace) capsule 100 mg 100 mg, Oral, 3 TIMES DAILY, First dose on Mon03/05/21 at 2100, Until Discontinued, Routine Given 03/13/2021 10:02 AM EDT 100 mg Given 03/12/2021 10:14 PM EDT 100 mg Given 03/12/2021 9:47 AM EDT 100 mg enoxaparin (Lovenox) (100 mg/1 mL) subcutaneous injection 82 mg 82 mg (rounded from 81.7 mg = 1 mg/kg/dose ? 81.7 kg), Subcutaneous, EVERY 12 HOURS SCHEDULED (2 times per day), 10 doses, First dose on Mon03/12/21 at 2100, Last dose on Mon03/17/21 at 0900, Routine Given 03/13/2021 11:21 AM EDT 82 mg Given 03/12/2021 10:13 PM EDT 82 mg enoxaparin (Lovenox) (80 mg/0.8 mL) subcutaneous injection 80 mg 80 mg, Subcutaneous, EVERY 12 HOURS SCHEDULED (2 times per day), First dose on Mon03/07/21 at 0900, Until Discontinued, Routine Given 03/08/2021 9:53 AM EDT 80 mg Given 03/07/2021 9:09 PM EDT 80 mg Given 03/07/2021 9:40 AM EDT 80 mg furosemide (Lasix) (10 mg/mL) injection 20 mg 20 mg, Intravenous, ONCE, 1 dose, On Mon03/08/21 at 0800 Given 03/08/2021 9:53 AM EDT 20 mg heparin (porcine) (5,000 units/1 mL) subcutaneous injection 5,000 Units 5,000 Units, Subcutaneous, EVERY 8 HOURS SCHEDULED, First dose on Mon03/06/21 at 2100, Until Discontinued, Routine Given 03/07/2021 5:31 AM EDT 5,000 Unit s Given 03/06/2021 8:55 PM EDT 5,000 Units heparin (porcine) (5,000 units/1 mL) subcutaneous injection 5,000 Units 5,000 Units, Subcutaneous, EVERY 8 HOURS SCHEDULED, First dose on Mon03/09/21 at 1400, Until Discontinued, Routine Given 03/12/2021 1:59 PM EDT 5,000 Unit s Given 03/12/2021 5:36 AM EDT 5,000 Units Given 03/11/2021 9:31 PM EDT 5,000 Units ibuprofen (Advil;Motrin) tablet 600 mg 600 mg, Oral, EVERY 8 HOURS, First dose on Mon03/06/21 at 1315, Until Discontinued, Administer orally with milk or food to minimize GI irritation. Maximum dose of 3,200 mg from all sources in 24 hours, Routine Given 03/06/2021 8:54 PM EDT 600 mg Given 03/06/2021 3:03 PM EDT 600 mg lactated Ringers 500 mL IV bolus Intravenous, ONCE, 1 dose, On Mon03/08/21 at 1200 New 03/08/2021 11:45 AM EDT 250 mL/hr lactated Ringers 500 mL IV bolus Intravenous, ONCE, 1 dose, On Mon03/09/21 at 0730 New 03/09/2021 7:30 AM EDT lactated Ringers 500 mL IV bolus Intravenous, ONCE, 1 dose, On Mon03/09/21 at 1730 New 03/09/2021 5:15 PM EDT lactated ringers infusion 75 mL/hr, Intravenous, CONTINUOUS, Starting on Mon03/05/21 at 1801, Until Mon03/06/21 at 2157, Recovery (Recovery-Hospital Unit) New 03/06/2021 7:58 PM EDT 75 mL/hr 75 mL/ hr New Bag 03/06/2021 1:25 PM EDT 75 mL/hr 75 mL/hr New Bag 03/06/2021 7:52 AM EDT 75 mL/hr 75 mL/hr magnesium sulfate 2 g in sterile water 50 mL infusion 2 g, Intravenous, ONCE, 1 dose, On Mon03/08/21 at 1445, Administer over 120 Minutes New Bag 03/08/2021 2:15 PM EDT 2 g 25 mL/hr magnesium sulfate 2 g in sterile water 50 mL infusion 2 g, Intravenous, ONCE, 1 dose, On Mon03/09/21 at 0600, Administer over 120 Minutes New Bag 03/09/2021 5:31 AM EDT 2 g 25 mL/hr phytonadione (vitamin K1) (Mephyton) tablet 10 mg 10 mg, Oral, ONCE, 1 dose, On Mon03/05/21 at 1807, Routine Given 03/05/2021 7:28 PM EDT 10 mg polyethylene glycoL (Miralax) packet 17 g 17 g, Oral, DAILY, First dose on Mon03/07/21 at 0900, Until Discontinued, Routine Given 03/13/2021 10:02 AM EDT 17 g Given 03/12/2021 9:46 AM EDT 17 g Given 03/11/2021 8:37 AM EDT 17 g senna (Senokot) tablet 17.2 mg 17.2 mg, Oral, EVERY EVENING, First dose on Mon03/06/21 at 1700, Until Discontinued, Routine Given 03/12/2021 5:10 PM EDT 17.2 mg Given 03/11/2021 6:44 PM EDT 17.2 mg Given 03/10/2021 4:51 PM EDT 17.2 mg sodium chloride 0.9 % (flush) flush 5 mL 5 mL, Intravenous, 2 TIMES DAILY, First dose on Mon03/05/21 at 2100, Until Discontinued, Recovery (Recovery-Hospital Unit), Routine Given 03/13/2021 10:02 AM EDT 5 mLs Given 03/12/2021 10:13 PM EDT 5 mLs Given 03/12/2021 9:47 AM EDT 5 mLs sodium chloride 0.9% infusion 100 mL/hr, Intravenous, CONTINUOUS, Starting on Mon03/09/21 at 1815, Until Mon03/10/21 at 0720 New Bag 03/09/2021 11:29 PM EDT 100 mL/hr 100 mL/hr New Bag 03/09/2021 6:09 PM EDT 100 mL/hr 100 mL/hr tamsulosin (Flomax) capsule 0.4 mg 0.4 mg, Oral, DAILY, First dose on Mon03/07/21 at 0900, Until Discontinued, DO NOT CRUSH OR OPEN, Routine Given 03/13/2021 10:01 AM EDT 0.4 mg Given 03/12/2021 9:47 AM EDT 0.4 mg Given 03/11/2021 8:38 AM EDT 0.4 mg warfarin (COUMADIN) daily order reminder Oral, EVERY 24 HOURS, First dose on 03/13/21 at 1400, Until Discontinued, If the daily warfarin order has not been placed, contact the Provider to confirm that the order will be written, the dose is held or discontinued. warfarin (Coumadin) tablet 5 mg 5 mg, Oral, ONCE, 1 dose, On Mon03/12/21 at 1700, DO NOT SPLIT, CRUSH OR OPEN, Routine Given 03/12/2021 5: 11 PM EDT 5 mg documented in this encounter Active and Recently Administered Medications Times are shown in EDT. Scheduled Medication Order 03/11/2021 03/12/2021 03/13/2021 acetaminophen (Tylenol) tablet 1,000 mg 1,000 mg, Oral, EVERY 8 HOURS, First dose on 03/06/21 at 1315, Until Discontinued, Maximum dose of acetaminophen is 4000 mg from all sources in 24 hours. When ordered for pain, acetaminophen should be given even when other ordered pain medications are indicated. , Routine 0529 (Given - Provider: Lexie Cordova)1252 (Given - Provider: Jodie Mojica RN)2131 (Given - Provider: Avril East RN) 0536 (Given - Provider: Avril East RN)1359 (Given - Provider: Shauna Morillo, DAVIN)2213 (Given - Provider: Avril East, DAVIN) 0420 (Given - Provider: Avril East, DAVIN)1425 (Given - Provider: Dominique Garcia RN) aspirin EC tablet 81 mg 81 mg, Oral, DAILY, First dose on Mon03/05/21 at 1636, Until Discontinued, Routine 0838 (Given - Provider: Jodie Mojica RN) 0946 (Given - Provider: Shauna Morillo RN) 1001 (Given - Provider: Dominique Garcia, DAVIN) docusate sodium (Colace) capsule 100 mg 100 mg, Oral, 3 TIMES DAILY, First dose on Mon03/05/21 at 2100, Until Discontinued, Routine 0838 (Given - Provider: Jodie Mojica RN)1433 (Given - Provider: Jodie Mojica, DAVIN)2131 (Given - Provider: Avril East, DAVIN) 0947 (Given - Provider: Shauna Morillo RN)1500 (Not Given - Provider: Shauna Morillo RN - Reason: Patient/family refused)2214 (Given - Provider: Avril East, DAVIN) 1002 (Given - Provider: Dominique Garcia, DAVIN)1500 (Not Given - Provider: Dominique Garcia RN - Reason: Patient/family refused) enoxaparin (Lovenox) (100 mg/1 mL) subcutaneous injection 82 mg 82 mg (rounded from 81.7 mg = 1 mg/kg/dose ? 81.7 kg), Subcutaneous, EVERY 12 HOURS SCHEDULED (2 times per day), 10 doses, First dose on Mon03/12/21 at 2100, Last dose on Mon03/17/21 at 0900, Routine 2213 (Given - Provider: Avril East RN) 1121 (Given - Provider: Dominique Garcia, DAVIN) heparin (porcine) (5,000 units/1 mL) subcutaneous injection 5,000 Units (CANCELED) 5,000 Units, Subcutaneous, EVERY 8 HOURS SCHEDULED, First dose on Mon03/09/21 at 1400, Until Discontinued, Routine 0530 (Given - Provider: Lexie Cordova)1433 (Given - Provider: Jodie Mojica, DAVIN)2131 (Given - Provider: Avril East, DAVIN) 0536 (Given - Provider: Avril East, DAVIN)1359 (Given - Provider: Shauna Morillo RN) polyethylene glycoL (Miralax) packet 17 g 17 g, Oral, DAILY, First dose on Mon03/07/21 at 0900, Until Discontinued, Routine 0837 (Given - Provider: Jodie Mojica RN) 0946 (Given - Provider: Shauna Morillo RN) 1002 (Given - Provider: Dominique Garcia RN) senna (Senokot) tablet 17.2 mg 17.2 mg, Oral, EVERY EVENING, First dose on 03/06/21 at 1700, Until Discontinued, Routine 1844 (Given - Provider: Jodie Mojica RN) 1710 (Given - Provider: Shauna Morillo RN) sodium chloride 0.9 % (flush) flush 5 mL 5 mL, Intravenous, 2 TIMES DAILY, First dose on Mon03/05/21 at 2100, Until Discontinued, Recovery (Recovery-Hospital Unit), Routine 0838 (Given - Provider: Jodie Mojica RN)2131 (Given - Provider: Avril East, DAVIN) 0947 (Given - Provider: Shauna Morillo RN)2213 (Given - Provider: Avril East RN) 0900 (Not Given - Provider: Dominique Garcia RN - Reason: See comment)1002 (Given - Provider: Dominique Garcia RN) tamsulosin (Flomax) capsule 0.4 mg 0.4 mg, Oral, DAILY, First dose on Mon03/07/21 at 0900, Until Discontinued, DO NOT CRUSH OR OPEN, Routine 0838 (Given - Provider: Jodie Mojica RN) 0947 (Given - Provider: Shauna Morillo RN) 1001 (Given - Provider: Dominique Garcia RN) warfarin (COUMADIN) daily order reminder Oral, EVERY 24 HOURS, First dose on Mon03/13/21 at 1400, Until Discontinued, If the daily warfarin order has not been placed, contact the Provider to confirm that the order will be written, the dose is held or discontinued. 1400 (Dose confirmed - Provider: Dominique Garcia RN - Comment: at home, pt to DC) warfarin (Coumadin) tablet 5 mg (COMPLETED) 5 mg, Oral, ONCE, 1 dose, On Mon03/12/21 at 1700, DO NOT SPLIT, CRUSH OR OPEN, Routine 171 (Given - Provider: Shauna Morillo RN) PRN Medication Order 03/11/2021 03/12/2021 03/13/2021 lidocaine (Xylocaine) 1% (10 mg/mL) injection 3 mg 3 mg (0.3 mL), Subcutaneous, ONCE PRN, 1 dose, Starting on Mon03/05/21 at 1759, Until 03/13/21 at 1739, for discomfort with PIV insertion, Recovery (Recovery-Hospital Unit), Routine sodium chloride 0.9 % (flush) flush 5-20 mL 5-20 mL, Intravenous, EVERY 1 MIN PRN, Starting on Mon03/05/21 at 1759, Until 03/13/21 at 1739, flush, Flush pertains to all indwelling lines. Flush per protocol found in the job aid using the link provided on this medication record., Recovery (Recovery-Hospital Unit), Routine traMADoL (Ultram) tablet 50 mg 50 mg, Oral, EVERY 6 HOURS PRN, Starting on 03/06/21 at 1254, Until 03/13/21 at 1739, Pain, for severe pain not relieved by Tylenol, Motrin, and ice packs to the area., Give 50 mg for mild to moderate pain (1-6). Give 100 mg for severe pain (7-10) If pain not relived after 60 minutes by a dose of 50 mg then may repeat 50 mg ONCE. Maximum of 400 mg/day., Routine documented in this encounter Care Teams Associate Professor Of Medicine Relationship Specialty Start Date End Date Linda Mccray MD [address] [place] [address] PCP - General Family Medicine 10/20/16 documented as of this encounter
--- OUTSIDE RECORDS SUMMARY | 2024-07-17 21:50 | XMS_ITS | Encounter Summary ---
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 Name Role Phone Linda Mccray MD Primary Care Provider [phone] Reason for Visit * Auth/Cert Specialty Diagnoses / Procedures Referred By Contac t Referred To Contact Diagnoses Recurrent spontaneous pneumothorax LARGE LEFT PNEUMOTHORAX Referral ID Status Reason Start Date Expiration Date Visits Re quested Visits Authorized [id number] 1 1 Encounter Details Date Type Department Care Team ([facility] st Contact Info) Description 03/06/2021 8:43 AM EDT Anesthesia [place] [id number] Tirso Mukherjee MD [facility] DR [place] [address] Elaine Ulrich MD [facility] [place] [address] Anesthesia Record Procedure Summary Procedure Name Responsible Anesthesiologist Anesthesia Start Time Anesthesia Stop Time @THORACOSCOPY, SURG; W/RESC-PLICATION EMPHYSEMATOUS LUNG, UNILATERAL (WRVU 27) (Left: Chest) Tirso Mukherjee MD 03/06/21 0843 03/06/21 1213 Events Date Time Event Comment 03/06/2021 0843 Start 0846 AN Verify 0846 An Start Data 0859 An Induction 0902 An Intubation 0904 FO Bronchoscopy 0905 An one lung vent 0910 Anesthesia Ready 1048 1100 Quick Note Test insufflati on 1120 An Dual Lung Vent 1200 Extubation/LMA Out 1204 an stop data 1213 Recovery or ICU Handoff Lashon ent care was transferred to the destination unit staff after review of the patient's medical history, current anesthetic/surgical status and plan, according to the Provider Handoff Checklist. 1213 Stop Meds Name Total fentaNYL 100 mcg IV Lidocaine 100 mg Propofol 230 mg Rocuronium 70 mg PHENYLephrine 420 mcg Ondansetron 4 mg Neostigmine 4.5 mg Glycopyrrolate 1 mg ceFAZolin 2 g PHENYLephrine INF 11,725 mcg Propofol INF 653.22 mg HYDROmorphone 0.6 mg Lactated Ringers 1,000 mL Sodium Chloride 0.9% 450 mL * Agents Name O2 Air N2O Sevoflurane (et) * Blood No blood administrations on file. Lines, Drains, and Airways Type Details Placement Removal Incision 07/31/20; 1032; ches t; 03/09/21; 1039 07/31/20 1032 by Génesis Edmonds RN 03/09/21 1039 by Missy Anne RN Chest Tube 03/03/21; 0000; Left ; anterior; 3rd intercostal space; placed at OSH; 03/06/21; 0935 03/03/21 0000 by Melanie Bundy, DAVIN 03/06/21 0935 by Sophia Talley, DAVIN (RETIRED) Peripheral IV Line - Single Lumen 03/05/21; 0000; basilic vein (medial side of arm), right; [id number]-fnz-[id number] catheter system; 20 gauge; no longer indicated, removed per physician, catheter/device intact; 03/13/21; 1535 03/05/21 0000 by Melanie Bundy, RN 03/13/21 1535 by Dominique Garcia RN ETT Mask Ventilation: Difficult (3); ETT Type: Cuffed, Oral; Double Lumen: 41 Fr; Indirect: Video; Notes: Asleep, Pre-O2, Stylette; Attempts: 1; Laryngoscopy Grade: 1; ETT Placement Verified By: Capnometry, Visual; Intubation Injury: Soft Tissue; Inserted by: Lena Ulrich MD; Removal Date: 03/06/21; Removal Time: 1200 03/06/21 0907 by Elaine Ulrich 03/06/21 1200 by Elaine Ulrich (RETIRED) Peripheral IV Line - Single Lumen 03/06/21; 0918; metacarpal vein (top of hand), left; [id number]-ahgikb catheter system; 18 gauge; L Serg WISE; [...] RN 03/09/21 0915 by Yara Lake RN documented in this encounter Social History [...] OR Notes * Anesthesia Postprocedure Evaluation - Elaine Ulrich - 03/06/2021 12:19 PM EDT Department of Anesthesiology Post-procedure Note Patient: London Neri Procedure Summary Date: 03/06/21 Room / Location: [facility] OR [address] [place] [address] MAIN OR Anesthesia Start: 842 Anesthesia Stop: Procedures: @THORACOSCOPY, SURG; W/RESC-PLICATION EMPHYSEMATOUS LUNG, UNILATERAL (WRVU 27) (Left Chest) @THORACOSCOPY, SURG; W PLEURODESIS (WRVU 10.83) (Left Chest) BRONCHOSCOPY, DIAGNOSTIC (WRVU 2.78) (Left Bronchus) @THORACOSCOPY, SURG; W PART. DECORTICATION (WRVU 18.78) (Left Chest) Diagnosis: (left spontaeous pneumothorax) Surgeons: Navin Khalil MD Responsible Provider: Tirso Mukherjee MD Anesthesia Type: general ASA Status: 3 All Anesthesia Providers: Anesthesiologist: Tirso Mukherjee MD Field Specialist: Elaine Ulrich MD Vitals Value Taken Time BP 122/60 03/06/21 1215 Temp Pulse 66 03/06/21 1218 Resp 14 03/06/21 1218 SpO2 93 % 03/06/21 1218 Pain Level Vitals shown include unvalidated device data. Patient Location: PACU/MERGED WITH [facility] Level of Consciousness: Conscious but Sleepy Pain Management: Satisfactory Analgesia PONV: None Cardiovascular Status: At Baseline Respiratory Status: At Baseline Postoperative Fluid Status: Intravascular EUvolemia Possible Anesthetic Complications: NONE apparent at time of evaluation Final Primary Anesthesia Type: General (The anesthetic type performed was the same as planned.) Comments: Patient resting comfortably in PACU. No apparent issues with anesthesia care. * Anesthesia Preprocedure Evaluation - Tirso Mukherjee MD - 03/06/2021 7:23 AM EDT Pre-Anesthesia Evaluation for: London nettles 70 y.o. male. Procedure(s): @THORACOSCOPY, SURG; W/THERAPEUTIC WEDGE RESECTION, INIT UNILATERAL (WRVU 14.5) @THORACOSCOPY, SURG; W PLEURODESIS (WRVU 10.83) BRONCHOSCOPY, DIAGNOSTIC (WRVU 2.78) Patient Active Problem List Diagnosis ??? Recurrent spontaneous pneumothorax ??? Pacemaker complications, initial encounter ??? Near syncope ??? Pacemaker - dual lead Medtronic ??? Pacemaker battery depletion Added automatically from request for surgery [id number] ??? Chronic bullous emphysema ??? Clostridium difficile [...] 4.67) performed by Lena Clark MD at [facility] ENDOSCOPY Social History Tobacco Use ??? Smoking status: [...] Physical Exam: Preprocedure Vitals Current as of 03/05/21 1726 BP: 126/67 Pulse: Resp: SpO2: 96 Temp: Height: 185.4 cm (6' 1) (03/05/21) Weight: 77.1 kg (170 lb) (03/05/21) BMI: 22.43 IBW: 79.9 kg (176 lb 1.7 oz) Last edited 03/05/21 1700 by TM Currently displaying vitals information from multiple entries within 90 minutes of most recent vitals. Airway Assessment: Mallampati: III TM distance: <3 FB Neck ROM: full Cardiovascular Assessment: Rhythm: regular Pulmonary Assessment: unlabored breathing Dental Assessment: (+) upper dentures Comment: Partial upper, remainder of teeth solid Misc Assessment: Patient is wearing No contact(s). IV access: Peripheral line Last Filed Perioperative Cognitive Screening None Anesthesia Plan: ASA 3 general, with a(n) intravenous induction 70yoM former smoker w recurrent PTX who was transferred to [facility] for definitive mgt of recurrent L PTX that is s/p chest tube w continued air leak. Medical History: AVR, MVR (warfarin; INR 2.1 yesterday, 1.8 this am), pacemaker (info below), COPD,former smoker, 5 drinks/week Surgical History: Aortic valve repair/mitral valve repair (1998), hernia repair Anesthetic History: None in our system Allergies reviewed - NKA Labs reviewed Meds reviewed - ASA, warfarin Functional Exercise tolerance: Pacemaker info: Generator: Medtronic [id number] serial# [id number] implant 07/31/2020 Device Settings (unchanged from prior): DDDR 60-120 99.9% ventricularly paced EK03/05/21 Atrial-sensed ventricular-paced rhythm Abnormal ECG When compared with ECG of 11-SEP-2007 16:25, Electronic ventricular pacemaker has replaced Sinus rhythm Echocardiogram: TTE (07/13/20): LVEF 60%, no RWMA, valves well seated, functioning well. NPO Status: appropriate Anesthetic Plan: GA w/ DLETT Standard ASA monitoring PIV access Also consented for possible A line, CVC, post op intubated to ICU Elaine Ulrich MD 03/06/2021 Plan GA, RAY, will discuss warfarin reversal with surgeon and bridging with hep gtt postoperatively. Region - Intrathoracic Non-Cardiac Informed Consent: Anesthetic plan and risks discussed with patient. Use of blood products discussed with patient who consented to blood products. Plan discussed with resident and attending. PAT Clinic Note documented in this encounter Plan of Treatment Not on file documented as of this encounter Visit Diagnoses Not on filedocumented in this encounter Administered Medications Inactive Administered Medications - up to 3 most recent administrations Medication Order MAR Action Action Date Dose Rate Site ceFAZolin (Ancef) 1 g in dextrose 5% 50 mL infusion Intravenous, PRN, Starting on 03/06/21 at 0910, Until 03/06/21 at 1220, Administer over 30 Minutes, Anesthesia Intra-op Given 03/06/2021 9:10 AM EDT 2 g fentaNYL (pf) (50 mcg/mL) multi-dose injection Intravenous, PRN, Starting on 03/06/21 at 0935, Until 03/06/21 at 1220, Anesthesia Intra-op, Routine Given 03/06/2021 9:35 AM EDT 100 mcg glycopyrrolate (Robinul) (0.2 mg/mL) multi-dose injection Intravenous, PRN, Starting on 03/06/21 at 1115, Until 03/06/21 at 1220, Anesthesia Intra-op, Routine Given 03/06/2021 11:15 AM EDT 1 mg HYDROmorphone (Dilaudid) (2 mg/mL) multi-dose injection solution Intravenous, PRN, Starting on 03/06/21 at 0953, Until 03/06/21 at 1220, Anesthesia Intra-op, Routine Given 03/06/2021 11:09 AM EDT 0.2 mg Given 03/06/2021 10:09 AM EDT 0.2 mg Given 03/06/2021 9:53 AM EDT 0.2 mg lactated ringers infusion Intravenous, CONTINUOUS PRN, Starting on 03/06/21 at 0843, Until 03/06/21 at 1220, Anesthesia Intra-op New Bag 03/06/2021 11:34 AM EDT New Bag 03/06/2021 8:43 AM EDT lidocaine (pf) (Xylocaine) (20 mg/mL) 2% injection syringe Intravenous, PRN, Starting on 03/06/21 at 0859, Until 03/06/21 at 1220, Anesthesia Intra-op, Routine Given 03/06/2021 8:59 AM EDT 100 mg neostigmine (Bloxiver) (1 mg/mL) injection Intravenous, PRN, Starting on 03/06/21 at 1115, Until 03/06/21 at 1220, Anesthesia Intra-op, Routine Given 03/06/2021 11:15 AM EDT 4.5 mg ondansetron (pf) (Zofran) (2 mg/mL) injection Intravenous, PRN, Starting on 03/06/21 at 1127, Until 03/06/21 at 1220, Anesthesia Intra-op, Routine Given 03/06/2021 11:27 AM EDT 4 mg PHENYLephrine (Wayne-Synephrine) (80 mcg/mL) in sodium chloride 0.9% 250 mL infusion Intravenous, CONTINUOUS PRN, Starting on 03/06/21 at 0922, Until 03/06/21 at 1220, Anesthesia Intra-op, Routine Rate/Dose Change 03/06/2021 11:45 AM EDT 40 mcg/min 30 mL/hr Rate/Dose Change 03/06/2021 11:29 AM EDT 60 mcg/min 45 mL/ hr Rate/Dose Change 03/06/2021 11:11 AM EDT 80 mcg/min 60 mL/ hr PHENYLephrine in NS (PF) (WAYNE-SYNEPHRINE) 0.8 mg/10 mL (80 mcg/mL) multi-dose injection Syrg Intravenous, PRN, Starting on 03/06/21 at 0925, Until 03/06/21 at 1220, Anesthesia Intra-op, Routine Given 03/06/2021 9:39 AM EDT 180 mcg Given 03/06/2021 9:25 AM EDT 240 mcg propofoL (Diprivan) 10 mg/mL bolus injection (Anesthesia) Intravenous, PRN, Starting on 03/06/21 at 0859, Until 03/06/21 at 1220, Anesthesia Intra-op Given 03/06/2021 11:35 AM EDT 30 mg Given 03/06/2021 8:59 AM EDT 200 mg propofoL (Diprivan) infusion Intravenous, CONTINUOUS PRN, Starting on 03/06/21 at 0859, Until 03/06/21 at 1220, Anesthesia Intra-op, Routine Rate/Dose Change 03/06/2021 9:23 AM EDT 50 mcg/kg/min 22.92 mL/hr New Bag 03/06/2021 8:59 AM EDT 100 mcg/kg/min 45.84 mL/ hr rocuronium (Zemuron) (10 mg/mL) multi-dose injection Intravenous, PRN, Starting on 03/06/21 at 0859, Until 03/06/21 at 1220, Anesthesia Intra-op, Routine Given 03/06/2021 8:59 AM EDT 70 mg sodium chloride 0.9% infusion Intravenous, CONTINUOUS PRN, Starting on 03/06/21 at 0910, Until 03/06/21 at 1220, Anesthesia Intra-op New Bag 03/06/2021 9:10 AM EDT documented in this encounter Care Teams Restaurant Worker Relationship Specialty Start Date End Date Linda Mccray MD [address] [place] [address] PCP - General Family Medicine 10/20/16 documented as of this encounter
--- OUTSIDE RECORDS SUMMARY | 2024-07-17 21:50 | XMS_ITS | Encounter Summary ---
Author Organization [facility] [place] [address] Care Team Providers Care Digital Associate Name Role Phone Linda Mccray MD Primary Care Provider [phone] Reason for Visit * Reason Comments Hospital Transfer Shortness of Breath * Auth/Cert Specialty Diagnoses / Procedures Referred By Contac t Referred To Contact Diagnoses Recurrent spontaneous pneumothorax LARGE LEFT PNEUMOTHORAX Referral ID Status Reason Start Date Expiration Date Visits Re quested Visits Authorized [id number] 1 1 Encounter Details Date Type Department Care Team (Late st Contact Info) Description 03/09/2021 7:58 AM EDT - 03/09/2021 1:26 PM EDT [place] [id number] Kendall Khalil MD [facility] [place] [address] @THORACOSCOPY, SURG; W PART. DECORTICATION (WRVU 18.78) Social History Tobacco Use Types Packs/Day Years [...] Sign Reading Time Taken Comments Blood Pressure 109/36 03/09/2021 1:15 PM EDT Pulse 62 03/09/2021 1:15 PM EDT Temperature 37 ??C (98.6 ??F) 03/09/2021 1:15 PM EDT Respiratory Rate 18 03/09/2021 1:15 PM EDT Oxygen Saturation 95% 03/09/2021 1:15 PM EDT Inhaled Oxygen Concentration - - Weight 79.7 kg (175 lb 11.2 oz) 03/07/2021 7:11 AM EDT Height 185.4 cm (6' 1) [...] depletion Added automatically from request for surgery [id number] ??? Chronic bullous emphysema ??? Clostridium difficile [...] s/p pacemaker who presents as transfer from [facility] for surgical treatment of recurrent spontaneous left pneumothorax. ?? Reports sudden onset of SOB on Monday which he knew felt like his prior ptx and presented to [facility] for treatment. Hospitalized at [facility] from 03/03 until today when he was transferred to [facility] for further management of his recurrent PTX. Had L-sided CT placed at [facility], with continuous air-leak since admission. Pt reports this is his fourth ptx, first occurred 2 years ago after multiple broken ribs in curred by slip and fall on ice. The 2nd and 3rd ptx were non-traumatic and one was attributed to lifting heavy item. Since CT placed at [facility] SOB has improved. ?? Coumadin last taken morning of 03/04/21. Normal coumadin dose 10mg qd. He last ate at noon today. ?? On assessment in the ED: He is HDS, on RA and in no distress. He endorses no complaints. Hospital Course: London Neri was admitted to [facility] on 03/05/2021 viathe ED. He was [...] Monday03/15/21. Primary Care Doctor: Linda Mccray MD [phone] [facility] Anticoagulation Clinic: [phone] Warfarin (Coumadin??) should be taken at the same time every day, usually at 5pm. Your next INR should be scheduled on: Monday AM March 15, 2021 by Provider listed below Provider/Team responsible for your outpatient Coumadin?? (warfarin) management: Primary Care Physician/Anticoagulation Clinic at [facility]. ??? If you have not [...] a nurse in the Thoracic Clinic at [phone]. After hours or on weekends or holidays please call: [phone] and ask to speak to the Thoracic [...] the Thoracic Clinic or the Thoracic Surgeon cement contractor after hours. Please take over the counter [...] Where can you learn more? Visit our Digilab information library at [email or web address] You can also view health information on Innovate2, your personal patient account. Log in or sign uptoday. Enter U010 in the search box to learn more about Learning About Indwelling Urinary Catheter Care to Prevent Infection. Current as of: April 20, 2020?Content Version: 12.[address] Care instructions adapted under license by [facility]. If you have questions about a medical condition or this instruction, always ask your healthcare professional. [address] disclaims any warranty or liability for your [...] Where can you learn more? Visit our health information library at [email or web address] You can also view health information on Innovate2, your personal patient account. Log in or sign uptoday. Enter X535 in the search box to learn more about Learning About How to Care for a Person's Indwelling Urinary Catheter. Current as of: May 08, 2020?Content Version: 12.8 ?? [address] Care instructions adapted under license by [facility]. If you have questions about a medical condition or this instruction, always ask your healthcare professional. [address] disclaims any warranty or liability for your use of this information. Future Appointments and Orders Future Orders Complete By Expires XR Chest PA & Lateral (Generic) [[id number] 31246 Custom] 03/27/2021 (Approximate) 03/13/2022 Process Instructions: Scheduling Instructions: Questions: Where will study be performed?: [facility] Radiology Portable exam?: Reason for exam and clinical history: s/p LVATS partial decort, blebectomy, talc pleurodesis c/b hemothorax s/p re-op LVATS washout Clinical information / sunshine questions: PTX, effusion, lung appostion, comparison Stat read required?: Date of injury if applicable: Requested Time: Walker standard [EQ135 Custom] As directed Process Instructions: Scheduling Instructions: Comments: London Pisano Daron [address] [facility] [address] (home) [phone] (mobile) Diagnosis: deconditioning with Unsteady gait Significant weakness, ataxia or gait abnormality Patient's: Hgt: Ht Readings from Last 1 Encounters: 03/05/21 : 185.4 cm (6' 1) ? Wgt: Wt Readings from Last 1 Encounters: 03/13/21 : 81.6 kg (180 lb) VENDOR: [facility] Ordering: Front wheel walker Deliver to [facility] hospital room #: 327A Questions: Vendor Name/Contact information: [facility] Provider Contact Information: Primary Care Provider: Linda Mccray MD [phone] Discharge References/Attachments: Discharge References/Attachments None For questions regarding this document or issues relating to this hospitalization on the Thoracic Surgery Service, please contact Dr. Khalil's office at . Signed: Jeff Almendarez MD 03/13/2021 CC: PCP: Linda Mccray MD Referring: Marii Kenyon Md [address] [place] [address] documented in this encounter Discharge Instructions * [...] Where can you learn more? Visit our Digilab information library at [email or web address] You can also view health information on Innovate2, your personal patient account. Log in or sign uptoday. Enter U010 in the search box to learn more about Learning About Indwelling Urinary Catheter Care to Prevent Infection. Current as of: April 20, 2020?Content Version: 12.8 ?? [id number] Care instructions adapted under license by [facility]. If you have questions about a medical condition or this instruction, always ask your healthcare professional. [address] disclaims any warranty or liability for your [...] Where can you learn more? Visit our Digilab information library at [email or web address] You can also view health information on Innovate2, your personal patient account. Log in or sign uptoday. Enter X535 in the search box to learn more about Learning About How to Care for a Person's Indwelling Urinary Catheter. Current as of: May 08, 2020?Content Version: 12.8 ?? [id number] Care instructions adapted under license by [facility]. If you have questions about a medical condition or this instruction, always ask your healthcare professional. [address] disclaims any warranty or liability for your [...] Monday03/15/21. Primary Care Doctor: Linda Mccray MD [phone] [facility] Anticoagulation Clinic: [phone] Warfarin (Coumadin??) should be taken at the same time every day, usually at 5pm. Your next INR should be scheduled on: Monday AM March 15, 2021 by Provider listed below Provider/Team responsible for your outpatient Coumadin?? (warfarin) management: Primary Care Physician/Anticoagulation Clinic at [facility]. ??? If you have not [...] a nurse in the Thoracic Clinic at [phone]. After hours or on weekends or holidays please call: [phone] and ask to speak to the Thoracic [...] the Thoracic Clinic or the Thoracic Surgeon cement contractor after hours. 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 With assistance from Dr. Jeff Almendarez, was able to arrange for patient to present at ED in [facility] to receive his 80 mg dose of Lovenox this evening and bean picker machine operator his regular prescription on Monday morning in [...] amounts through goldsmith, sediment present, team notified. LB 03/13. Will continue to monitor and help [...] from the original note were not included. [facility] Department of Thoracic Surgery Inpatient Progress Note Patient Name: London Neri Patient : 1950 Patient Patient Location: [address] [place] [address]- Attending Surgeon: KENNETH NEWBY DAVID J ID: [...] to Hosp-Admission (Current) from 03/05/2021 in 3 [facility] Office Visit from 08/10/2020 in Cardiology at [facility] Weight 81.7 kg (180 lb 3.2 oz) [...] May MD 03/12/2021 Thoracic Surgery Service Pager [phone] * Mayra Scales, PACK OPERATOR - 03/12/2021 11:55 AM EDT Physical Therapy Note Treatment Number PT: 2 Patient profile: London Neri??is a 70 y.o.??male admittted 03/05/21??with PMHx significant for recurrent spontaneous pneumothorax, CHF, mitral and aortic mechanical valves (both placed 1998, on coumadin), s/p pacemaker who presents as transfer from [facility] for surgical treatment of recurrent spontaneous left pneumothorax. ?? Reports sudden onset of SOB on Monday which he knew felt like his prior ptx and presented to [facility] for treatment. ??Hospitalized at [facility] from 03/03 until today when he was transferred to [facility] for further management of his recurrent PTX. Had L-sided CT placed at [facility], with continuous air-leak sinceadmission. Pt reports this is his fourth ptx, first occurred 2 years ago after multiple broken ribsincurred by slip and fall on ice. The 2nd and 3rd ptx were non-traumatic and one was attributed to lifting heavy item. Since CT placed at [facility] SOB has improved. S/p L VATS partial [...] (TE-F x 2) MAYRA SCALES PTA Pager: [phone] Physical Therapy Inpatient Rehabilitation Department * Avril [...] Mccauley APRN - 03/11/2021 9:53 AM EDT [facility] Department of Thoracic Surgery Inpatient Progress Note Patient Name: London Neri Patient : 1950 Patient Patient Location: [address] [place] [address]- Attending Surgeon: KENNETH NEWBY DAVID J ID: [...] to Hosp-Admission (Current) from 03/05/2021 in 3 [facility] Office Visit from 08/10/2020 in Cardiology at [facility] Weight 59.6 kg (131 lb 4.8 oz) [...] QTC Calculated (Bezet) 526 ms Calculated P Lopeno 43 degrees Calculated R Lopeno -63 degrees Calculated T Lopeno 62 degrees INTERPRETATION Atrial-sensed ventricular-paced rhythm Underlying normal sinus rhythm Abnormal ECG When compared with ECG of 05-MAR-2021 15:30, Vent. rate has increased BY 19 BPM Confirmed by Devonte Newsome ([id number]) on 03/08/2021 4:10:26 PM ABO/Rh Typing Result Value Ref Range ABORh Type A Neg Antibody screen Result Value Ref Range Ab Screen Interp Negative Expires at 2359 on: 03/11/2021 ABORH Recheck Status Result Value Ref Range ABORH Type Recheck Completed Type and Screen Validity Result Value Ref Range T&S only valid at [facility] Hosp Hemogram Result Value Ref Range WBC 14.5 [...] Dispo: full code, floor status Malorie Mccauley, FRUIT OR NUT FARMER 03/11/2021 Thoracic Surgery Service Pager [phone] * Lexie Cordova - 03/10/2021 9:57 PM [...] s/p pacemaker who presents as transfer from [facility] for surgical treatment of recurrent spontaneous left pneumothorax. ?? Reports sudden onset of SOB on Monday which he knew felt like his prior ptx and presented to [facility] for treatment. Hospitalized at [facility] from 03/03 until today when he was transferred to [facility] for further management of his recurrent PTX. Had L-sided CT placed at [facility], with continuous air-leak since admission. Pt reports this is his fourth ptx, first occurred 2 years ago after multiple broken ribs in curred by slip and fall on ice. The 2nd and 3rd ptx were non-traumatic and one was attributed to lifting heavy item. Since CT placed at [facility] SOB has improved. S/p L VATS partial [...] 2.78) performed by Kendall Khalil MD at [facility] MAIN OR ??? PRO COLONOSCOPY, REMV LESN, SNARE N/A 01/26/2017 COLONOSCOPY, POLYPECTOMY, REMOVAL LESION BY SNARE (WRVU 4.67) performed by Lena Clark MD at [facility] ENDOSCOPY ??? PRO THORACOSCOPY SURG PART PULM DECORT Left 03/06/2021 @THORACOSCOPY, SURG; W PART. DECORTICATION (WRVU 18.78) performed by Kendall Khalil MD at [facility] MAIN OR ??? PRO THORACOSCOPY SURG W/PLEURODESIS Left 03/06/2021 @THORACOSCOPY, SURG; W PLEURODESIS (WRVU 10.83) performed by Kendall Khalil MD at [facility] MAIN OR ??? PRO THORACOSCOPY W RESECTION-PLICATION EMPHYSEMA LUNG UNILATERAL Left 03/06/2021 @THORACOSCOPY, SURG; W/RESC-PLICATION EMPHYSEMATOUS LUNG, UNILATERAL (WRVU 27) performed by Kendall Khalil MD at [facility] MAIN OR Active Non-Hospital Problems Diagnosis [...] B shoulders at least 3/5 and good lvn. B ankles and knees 4-4+/5. Sensory: denies [...] outlinedin this evaluation. Time IN / OUT: 5856-9400 Total Minutes, Physical Therapy: 25 (Mod EV) RUMA BONE, PT Pager: [phone] Physical Therapy Inpatient Rehabilitation Department * Joseph Vidales, OT - 03/10/2021 1:40 PM EDT Occupational Therapy Evaluation Patient profile: London Neri is a 70 y.o. male who is s/p L VATS partial decortication, blebectomy and talc pleurodesis on 5/15/21 with oozing from left chest tube; re-op?? [...] 2.78) performed by Kendall Khalil MD at [facility] MAIN OR ??? PRO COLONOSCOPY, REMV LESN, SNARE N/A 01/26/2017 COLONOSCOPY, POLYPECTOMY, REMOVAL LESION BY SNARE (WRVU 4.67) performed by Lena Clark MD at [facility] ENDOSCOPY ??? PRO THORACOSCOPY SURG PART PULM DECORT Left 03/06/2021 @THORACOSCOPY, SURG; W PART. DECORTICATION (WRVU 18.78) performed by Kendall Khalil MD at [facility] MAIN OR ??? PRO THORACOSCOPY SURG W/PLEURODESIS Left 03/06/2021 @THORACOSCOPY, SURG; W PLEURODESIS (WRVU 10.83) performed by Kendall Khalil MD at [facility] MAIN OR ??? PRO THORACOSCOPY W RESECTION-PLICATION EMPHYSEMA LUNG UNILATERAL Left 03/06/2021 @THORACOSCOPY, SURG; W/RESC-PLICATION EMPHYSEMATOUS LUNG, UNILATERAL (WRVU 27) performed by Kendall Khalil MD at [facility] MAIN OR Social History: Patient lives [...] & Perception: ?? WNL/WFL ?? 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 Diagnosis [...] and measurable assessment of functional outcome. Pager: [phone] Joseph Vidales OT 03/10/2021 Occupational Therapy Rehabilitation [...] dizziness due to acute blood loss anemia. [facility] Department of Thoracic Surgery Inpatient Progress Note Patient Name: London Neri Patient : 1950 Patient Patient Location: [facility]/326-B Attending Surgeon: KENNETH NEWBY DAVID J ID: [...] to Hosp-Admission (Current) from 03/05/2021 in 3 [facility] Office Visit from 08/10/2020 in Cardiology at [facility] Weight 82 kg (180 lb 12.8 oz) [...] QTC Calculated (Bezet) 526 ms Calculated P Lopeno 43 degrees Calculated R Lopeno -63 degrees Calculated T Lopeno 62 degrees INTERPRETATION Atrial-sensed ventricular-paced rhythm Underlying normal sinus rhythm Abnormal ECG When compared with ECG of 05-MAR-2021 15:30, Vent. rate has increased BY 19 BPM Confirmed by Devonte Newsome ([id number]) on 03/08/2021 4:10:26 PM ABO/Rh Typing Result Value Ref Range ABORh Type A Neg Antibody screen Result Value Ref Range Ab Screen Interp Negative Expires at 2359 on: 03/11/2021 ABORH Recheck Status Result Value Ref Range ABORH Type Recheck Completed Type and Screen Validity Result Value Ref Range T&S only valid at [facility] Hemogram Result Value Ref Range WBC 14.5 [...] May MD 03/10/2021 Thoracic Surgery Service Pager [phone] * Myrna Ludwig APRN - 03/10/2021 8:35 AM EDT Cardiac Device Remote Monitoring Report Summary [employer] [place] 03/10/21 Device: Pacemaker Model: Gracey Battery: 3.10 v, estimated longevity ~10.5 years Pacing percentage: AP 0.2%, COST ACCOUNTING ANALYST 99.9% Current EGM: ,AR/COST ACCOUNTING ANALYST. Atrial rate 240 bpm, ventricular rate 60 bpm. Events: AT/AF >=6 hr for 1 day. Patient activity less than 1 hr/day for 1 week Atrial high rate events: 1 AT/AF since 03/09/21 @ 10:55am, episode in progress. AT/AF [place] 10.8%. Rate histogram: Time in AT/AF = [...] in-clinic and remote Myrna Ludwig APRN Pager [phone] * Ross Mohan RN - 03/09/2021 7:42 [...] factors per assessment: [current deficits]: Generalized weakness, [id number] of OR, pain, dizziness, medications, hospitalization and [...] was informed to hold. Page out to [id number] to clarify, Call returned to clarify the ok to give the Heparin and ASA. Given per MD order. * Pardeep Lima PA - 03/09/2021 2:48 PM EDT [facility] Department of Thoracic Surgery Inpatient Post Op Check Note Patient Name: London Neri Patient : 1950 Patient Patient Location: [address] [place] [address] Attending Surgeon: KENNETH NEWBY DAVID J ID: [...] to Hosp-Admission (Current) from 03/05/2021 in 3 [facility] Office Visit from 08/10/2020 in Cardiology at [facility] Weight 79.7 kg (175 lb 11.2 oz) [...] QTC Calculated (Bezet) 526 ms Calculated P Lopeno 43 degrees Calculated R Lopeno -63 degrees Calculated T Lopeno 62 degrees INTERPRETATION Atrial-sensed ventricular-paced rhythm Underlying normal sinus rhythm Abnormal ECG When compared with ECG of 05-MAR-2021 15:30, Vent. rate has increased BY 19 BPM Confirmed by Devonte Newsome ([id number]) on 03/08/2021 4:10:26 PM ABO/Rh Typing Result Value Ref Range ABORh Type A Neg Antibody screen Result Value Ref Range Ab Screen Interp Negative Expires at 2359 on: 03/11/2021 ABORH Recheck Status Result Value Ref Range ABORH Type Recheck Completed Type and Screen Validity Result Value Ref Range T&S only valid at [facility] Hemogram Result Value Ref Range WBC 14.5 [...] day. OOB. Dispo: full code, floor status [place] 03/09/2021 Thoracic Surgery Service Pager [phone] * Ross Mohan RN - 03/09/2021 2:20 [...] from the original note were not included. [facility] Department of Thoracic Surgery Inpatient Progress Note [facility] [address] [place] [address] FAX: Patient Name: London Neri Patient : 1950 Patient Patient Location: [address] [place] [address] Thoracic surgery attending: Dr. Khalil HPI: London Neri is a 70 y.o. male with PMHx significant for recurrent spontaneous pneumothorax, chronic CHF, mitral and aortic mechanical valves (both placed 1998, on coumadin), s/p pacemaker who presents as transfer from [facility] for surgical treatment of recurrent spontaneous left pneumothorax. Reports sudden onset of SOB on Monday which he knew felt like his prior ptx and presented to [facility] for treatment. Hospitalized at [facility] from 03/03 until today when he was transferred to [facility] for further management of his recurrent PTX. Had L-sided CT placed at [facility], with continuous air-leak since admission. Pt reports this is his fourth ptx, first occurred 2 years ago after multiple broken ribs in curred by slip and fall on ice. The 2nd and 3rd ptx were non-traumatic and one was attributed to lifting heavy item. Since CT placed at [facility] SOB has improved. Coumadin last taken morning [...] to Hosp-Admission (Current) from 03/05/2021 in 3 [facility] Office Visit from 08/10/2020 in Cardiology at [facility] Weight 79.7 kg (175 lb 11.2 oz) [...] QTC Calculated (Bezet) 526 ms Calculated P Lopeno 43 degrees Calculated R Lopeno -63 degrees Calculated T Lopeno 62 degrees INTERPRETATION Atrial-sensed ventricular-paced rhythm Underlying normal sinus rhythm Abnormal ECG When compared with ECG of 05-MAR-2021 15:30, Vent. rate has increased BY 19 BPM Confirmed by Devonte Newsome ([id number]) on 03/08/2021 4:10:26 PM ABO/Rh Typing Result Value Ref Range ABORh Type A Neg Antibody screen Result Value Ref Range Ab Screen Interp Negative Expires at 2359 on: 03/11/2021 ABORH Recheck Status Result Value Ref Range ABORH Type Recheck Completed Type and Screen Validity Result Value Ref Range T&S only valid at [facility] Hemogram Result Value Ref Range WBC 14.5 [...] May MD 03/09/2021 Thoracic Surgery Service Pager [phone] * Margarita Becerra PT - 03/09/2021 8:01 AM EDT Physical Therapy 03/09/21 0801 Physical Therapy Time and Intention Document Type contact Mode of Treatment physical therapy Total Minutes, Physical Therapy 0 Comment, Session Not Performed Pt being taken to the OR urgently for exploratory thoracotomy. PT tofollow post-op per MD orders. MARGARITA BECERRA, PT Pager # [phone] In-Pt Rehab Medicine * Freya Cedeño MSW - 03/08/2021 2:57 PM EDT COMMUNICATIONS DIRECTOR received call from pt's . She reports that the pt goes by Gonzalo. She was able to provide thefollowing information: - Pt lives at address on file; several steps to enter the apartment and then single floor living. 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 COMMUNICATIONS DIRECTOR informed her that MD will also call by the end of the day. reports that her cell phone is not working and she is available at the house number. Received second call around 3pm: - stating that she will be coming to [facility] and is asking about local hotels. COMMUNICATIONS DIRECTOR informed of [facility] ([facility] currently closed). interested in staying at [facility]. COMMUNICATIONS DIRECTOR phone call to [facility] ([phone]), they report that they have availability. COMMUNICATIONS DIRECTOR phone call to , provided her with the phone number; Deena shetty will complete intake with over the phone prior to her arrival. * Joseph Vidales, OT - 03/08/2021 2:11 PM EDT OCCUPATIONAL THERAPY 03/08/21 1409 OT Time and Intention Document Type contact [...] SpO2 87 bpm SpO2 92 % Joseph Vidales OT Pager: [phone] * Margarita Becerra PT - 03/08/2021 2:00 [...] deferred until tomorrow MARGARITA BECERRA, PT Pager [phone] In-Pt Rehab Medicine * Ashanti May MD [...] [91 %-97 %] I/O Current Shift: 03/08 0701 - 03/08 1900 In: - Out: 250 [...] RN - 03/08/2021 10:59 AM EDT London Neri [id number] 1950 Additional Information: patient on bedside commode, staff with patient at time of fall but not ableto catch patient. Patient reported nausea and dizziness, then patient lunged forward, fell onto floor, hit head. Patient endorses LOC/passing out while on bedside commode, before hitting floor. Date of Fall: 03/08/2021 Time of Fall: 1130 Unit/Location: 3 Painter Room Number: 326B Provide a brief factual [...] small localized frontal head swelling and cut. WELL LOGGER called?: No Suspected intentional fall?: No Was [...] from the original note were not included. [facility] Department of Thoracic Surgery Inpatient Progress Note [facility] [address] [place], [place] [address] FAX: Patient Name: London Neri Patient : 1950 Patient Patient Location: [address] [place] [address] Thoracic surgery attending: Dr. Khalil HPI: London Neri is a 70 y.o. male with PMHx significant for recurrent spontaneous pneumothorax, chronic CHF, mitral and aortic mechanical valves (both placed 1998, on coumadin), s/p pacemaker who presents as transfer from [facility] for surgical treatment of recurrent spontaneous left pneumothorax. Reports sudden onset of SOB on Monday which he knew felt like his prior ptx and presented to [facility] for treatment. Hospitalized at [facility] from 03/03 until today when he was transferred to [facility] for further management of his recurrent PTX. Had L-sided CT placed at [facility], with continuous air-leak since admission. Pt reports this is his fourth ptx, first occurred 2 years ago after multiple broken ribs in curred by slip and fall on ice. The 2nd and 3rd ptx were non-traumatic and one was attributed to lifting heavy item. Since CT placed at [facility] SOB has improved. Coumadin last taken morning [...] to Hosp-Admission (Current) from 03/05/2021 in 3 [facility] Office Visit from 08/10/2020 in Cardiology at [facility] Weight 79.7 kg (175 lb 11.2 oz) [...] QTC Calculated (Bezet) 524 ms Calculated P Lopeno 30 degrees Calculated R Lopeno -103 degrees Calculated T Lopeno 62 degrees INTERPRETATION Atrial-sensed ventricular-paced rhythm Abnormal ECG When compared with ECG of 11-SEP-2007 16:25, Ventricular-paced rhythm is now present Confirmed by MD Emelina, Jordana Blanca ([id number]) on 03/07/2021 3:16:02 PM COVID-19 PCR Specimen: Nasopharyngeal Swab Symptoms->Surveillance Result Value Ref Range Rapid SARS-CoV-2 RNA Not Detected Not Detected SARS-CoV-2 Source BAG LOADER Swab Prothrombin Time Result Value Ref Range [...] Value Ref Range T&S only valid at [facility] Hosp Prothrombin Time Result Value Ref Range [...] [place] Chaudhry 03/08/2021 Thoracic Surgery Service Pager [phone] * Avril East RN - 03/07/2021 5:32 [...] maintained, clear yellow urine throughout shift. 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 OOB to walk aroundunit [...] assistance with ADL's Surveillance [continuous indirect monitoring]: Hung, Purposeful Rounding, Nurse Knowledge Exchange at Bedside, [...] Report called to Avril JIN, transferred to [facility] * Hardeep Cool DO - 03/06/2021 3:06 PM EDT Post-Operative [...] RNA Not Detected Not Detected SARS-CoV-2 Source BAG LOADER Swab Prothrombin Time Result Value Ref Range [...] Value Ref Range T&S only valid at [facility] Prothrombin Time Result Value Ref Range PT [...] PM EDT Cardiac Device Interrogation London Neri [id number] 03/06/2021 History: Mr. Neri is a 70 yo male with a history of HTN, mechanical aortic and mitral valve [id number], on chronic Coumadin with INR goal 2.5-3.5, [...] requiring chest tube placement, who presented to [facility] on 03/05/2021s transfer from [facility] for surgical treatment of recurrent spontaneous left pneumothorax. He underwent Left VATS partial decortication, blebectomy and talc pleurodesis on 03/06/2021. We were asked to interrogate device following intraoperative magnet application and ventricular tachycardia reported on telemetry frantz-procedurally. 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 [facility] Department of Thoracic Surgery Inpatient Progress Note [address] [place] [address] FAX: Patient Name: London Neri Patient : 1950 Patient Patient Location: [address] [place] [address] Thoracic surgery attending: Dr. Khalil HPI: London Neri is a 70 y.o. male with PMHx significant for recurrent spontaneous pneumothorax, CHF,mitral and aortic mechanical valves (both placed 1998, on coumadin), s/p pacemaker who presents as transfer from [facility] for surgical treatment of recurrent spontaneous left pneumothorax. Reports sudden onset of SOB on Monday which he knew felt like his prior ptx and presented to [facility] for treatment. Hospitalized at [facility] from 03/03 until today when he was transferred to [facility] for further management of his recurrent PTX. Had L-sided CT placed at [facility], with continuous air-leak since admission. Pt reports this is his fourth ptx, first occurred 2 years ago after multiple broken ribs in curred by slip and fall on ice. The 2nd and 3rd ptx were non-traumatic and one was attributed to lifting heavy item. Since CT placed at [facility] SOB has improved. Coumadin last taken morning [...] to Hosp-Admission (Current) from 03/05/2021 in 3 [facility] Office Visit from 08/10/2020 in Cardiology at [facility] Weight 76.4 kg (168 lb 6.4 oz) [...] QTC Calculated (Bezet) 524 ms Calculated P Lopeno 30 degrees Calculated R Lopeno -103 degrees Calculated T Lopeno 62 degrees INTERPRETATION Atrial-sensed ventricular-paced rhythm Abnormal ECG When compared with ECG of 11-SEP-2007 16:25, Electronic ventricular pacemaker has replaced Sinus rhythm COVID-19 PCR Specimen: Nasopharyngeal Swab Symptoms->Surveillance Result Value Ref Range Rapid SARS-CoV-2 RNA Not Detected Not Detected SARS-CoV-2 Source BAG LOADER Swab Prothrombin Time Result Value Ref Range [...] Value Ref Range T&S only valid at [facility] Prothrombin Time Result Value Ref Range PT [...] W[place] Lea 03/07/2021 Thoracic Surgery Service Pager [phone] * Rubén Bone PA - 03/06/2021 8:29 AM EDT Images from the original note were not included. [facility] Department of Thoracic Surgery Inpatient Progress Note [place], [place] [address] FAX: Patient Name: London Neri Patient : 1950 Patient Patient Location: [address] [place] [address] Thoracic surgery attending: Dr. Khalil HPI: London Neri is a 70 y.o. male with PMHx significant for recurrent spontaneous pneumothorax, CHF,mitral and aortic mechanical valves (both placed 1998, on coumadin), s/p pacemaker who presents as transfer from [facility] for surgical treatment of recurrent spontaneous left pneumothorax. Reports sudden onset of SOB on Monday which he knew felt like his prior ptx and presented to [facility] for treatment. Hospitalized at [facility] from 03/03 until today when he was transferred to [facility] for further management of his recurrent PTX. Had L-sided CT placed at [facility], with continuous air-leak since admission. Pt reports this is his fourth ptx, first occurred 2 years ago after multiple broken ribs in curred by slip and fall on ice. The 2nd and 3rd ptx were non-traumatic and one was attributed to lifting heavy item. Since CT placed at [facility] SOB has improved. Coumadin last taken morning [...] to Hosp-Admission (Current) from 03/05/2021 in 3 [facility] Office Visit from 08/10/2020 in Cardiology at [facility] Weight 77.1 kg (170 lb) 1 03/05/2021 [...] QTC Calculated (Bezet) 524 ms Calculated P Lopeno 30 degrees Calculated R Lopeno -103 degrees Calculated T Lopeno 62 degrees INTERPRETATION Atrial-sensed ventricular-paced rhythm Abnormal ECG When compared with ECG of 11-SEP-2007 16:25, Electronic ventricular pacemaker has replaced Sinus rhythm COVID-19 PCR Specimen: Nasopharyngeal Swab Symptoms->Surveillance Result Value Ref Range Rapid SARS-CoV-2 RNA Not Detected Not Detected SARS-CoV-2 Source BAG LOADER Swab Prothrombin Time Result Value Ref Range [...] Value Ref Range T&S only valid at [facility] Hosp Prothrombin Time Result Value Ref Range [...] [place] Lea 03/06/2021 Thoracic Surgery Service Pager [phone] * Ashanti May MD - 03/05/2021 3:47 PM EDT [facility] Department of Thoracic Surgery Inpatient H&P Note [facility] [address] [place] [address] FAX: Patient Name: London Neri Patient : 1950 Patient Patient Location: ED10/ED10 B Thoracic surgery attending: Dr. Khalil HPI: London Neri is a 70 y.o. male with PMHx significant for recurrent spontaneous pneumothorax, CHF,mitral and aortic mechanical valves (both placed 1998, on coumadin), s/p pacemaker who presents as transfer from [facility] for surgical treatment of recurrent spontaneous left pneumothorax. Reports sudden onset of SOB on Monday which he knew felt like his prior ptx and presented to [facility] for treatment. Hospitalized at [facility] from 03/03 until today when he was transferred to [facility] for further management of his recurrent PTX. Had L-sided CT placed at [facility], with continuous air-leak since admission. Pt reports this is his fourth ptx, first occurred 2 years ago after multiple broken ribs incurred by slip and fall on ice. The 2nd and 3rd ptx were non-traumatic and one was attributed to lifting heavy item. Since CT placed at [facility] SOB has improved. Coumadin last taken morning [...] 4.67) performed by Lena Clark MD at [facility] ENDOS[facility] Medications: No outpatient medications have [...] Gatherings with Friends and Family: ??? Attends Hindu Services: ??? Active Member of Clubs or [...] Date ED from 03/05/[address] [facility] Office Visit from 08/10/2020 in Cardiology at [facility] Weight 77.1 kg (170 lb) 1 03/05/2021 [...] May MD 03/05/2021 Thoracic Surgery Service Pager [phone] documented in this encounter ED Notes * Ruma Kumar RN - 03/05/2021 7:09 PM EDT Pt O2 sats decrease when pt lying in bed. Boosted up in bed independently. O2 sats remained at 89. Pt placed on digester operator helper at 2l/min. Pt then at 97% on digester operator helper. Fighter Pilot removed after 2 mins and maintaing O2 [...] breath without the chest tube. * Melanie Bundy RN - 03/05/2021 3:[address] [...] appears in place. 3-4+ air leak on -[id number] Abd: Soft, non tender MSK: No peripheral [...] in place. Pt is stable. Dr. Khalil cement contractor and will admit and take pt to [...] maintained with adequate output. No acute events, WC PLAN MOVING FORWARD: D/C Planning INDIVIDUALIZED FALL [...] Type: *No Product type* / Secondary Insurance: [employer] [facility] Prescription Coverage: Yes Preferred Pharmacy: No Pharmacies Listed Last Physical Therapy Recommendation: (home with assistance and services TBD) with (likely none) Last Occupational Therapy Recommendation: home with supervision, home with supervision - [id number] Plan for discharge is: Home no needs Plan going forward: CM will continue to follow and assist with discharge planning and coordination of care as indicated. Anticipated Date of Discharge: 03/15/2021 Vanessa Anne RN Case Parking Lot Signaler of Care Management * Plan of Care [...] N/A * Plan of Care - Gary Rodríguez RN - 03/10/2021 2:16 AM EDT London [...] (Interventions Implemented as Appropriate) Flowsheets (Taken 03/10/2021 0216) Plan of Care Reviewed With: patient Progress: [...] Type: *No Product type* / Secondary Insurance: [employer] [place] Prescription Coverage: yes Preferred Pharmacy: No Pharmacies Listed Plan for discharge is: TBD Plan going forward: CM will continue to follow and assist with discharge planning and coordination of care as indicated. Anticipated Date of Discharge: 03/12/2021 Vanessa Anne RN Case Parking Lot Signaler of Care Management Phone [phone] * Brief Op Note - Ashanti May MD - 03/09/2021 11:22 AM EDT Brief Operative Note Patient Name: London Neri : [id number] MR#: [id number] Case Date: 03/09/2021 Surgeon: Surgeon(s) and Role: [...] othersurfaces were oozing and we used the Athlete Builder water bipolar cautery to obtain hemostasis throughout [...] pt not feeling well and stated that COMMUNICATIONS DIRECTOR could call . MSWleft voicemail for . Reason for Hospitalization: They repaired my left lung. Last COVID test: 03/05/21 1552 not detected Lab Results Component Value Date [id number] Not Detected 03/05/2021 Past medical History: Past Medical History: Diagnosis Date ??? C. difficile colitis ??? COPD (chronic obstructive pulmonary disease) ??? Emphysema of lung ??? Hemorrhoid ??? Pneumothorax on left Hospitalizations Within the Past 30 Days: other (see comments) (admitted to [facility] on 03/03, transferred to [facility] on 03/05) Current Decision-Making Capacity: Self Advance Care Planning: Attempt Cardiopulmonary Resuscitation - Inpatient Received -Advanced Directive: Yes, on file AD in eDH. Names Meredith Villarreal ([phone], ) as primary agent; names Loco Odell ([phone], , ) as secondary agent Current Functional [...] Current DME: none Home Address confirmed as: [address] [place] [address] [place] [address] Social & Family Supports: COMMUNICATIONS DIRECTOR left voicemail for pt's at home number; COMMUNICATIONS DIRECTOR phone call to mobile number and recording states that it is not in service Extended Emergency Contact Information Primary Emergency Contact: Meredith Villarreal [facility] Mobile Relation: Spouse Current Care Provided by: [...] Type: *No Product type* / Secondary Insurance: [facility] Prescription Coverage: yes Preferred Pharmacy: unable to assess No Pharmacies Listed Status: Patient is a : No, registration status: at at %. Primary Care Provider: Linda Mccray MD [phone] Tirso Ghosh ([phone]) as PCP - need to clarify with [...] accessing necessary care and/or follow-up after discharge. COMMUNICATIONS DIRECTOR attempted to meet with pt on [facility]; pt reporting that he is not feeling well. Able to answer only a few questions before asking for his nurse. Based on chart review, pt had recently syncopal episode with +headstrike. COMMUNICATIONS DIRECTOR phone call to pt's to complete IA. Left a voicecmail asking for call back. Cell phone [facility] on [facility] not in service - will address with when call back is received. A member of the Care Management team will continue to monitor progress, follow for continuity of care and assist with transition of care planning. NIRMALA Khan Spanish TutorParking Lot Signaler of Care Management Pager: [phone] * Plan of Care - Gary Rodríguez [...] Operative Note Patient Name: London Neri : [id number] MR#: [id number] Case Date: 03/06/2021 Surgeon: Surgeon(s) and Role: [...] this patient.) Infection Bundle used? N/A Kota Leyav MD 03/06/2021 11:59 AM * Op Note [...] air leak. The patient was transferred to [facility] for definitive treatment of his recurrent spontaneous [...] PATHOLOGY REPORT Routine 03/06/2021 10:56 AM EDT PREPARE THAWED PLASMA Routine 03/06/2021 7:20 AM [...] 03/05/2021 4:21 PM EDT RAPID COVID-19 PCR ([facility]) STAT 03/05/2021 3:52 PM EDT EKG 12-LEAD [...] who have questions please contact the health floor care technician that requested your imaging first. ? Electronically signed by: Malika Thayer MD, [facility] ([phone]), at 03/30/2021 2:52 PM Narrative 03/30/2021 2:52 [...] patients who have questions please contactthe health floor care technician that requested your imaging first. Electronically signed by: Malika Thayer MD, [facility]([phone]), at 03/30/2021 2:52 PM Kendall Khalil MD IMG DX ORDERABLES [...] interpretation and agree with the findings, KENDALL PCAHECO MD at 03/13/2021 1:22 PM Thank you for letting us participate in the care of this patient. ??If you are a health care provider and have any questions regarding this report, please contact the number below. ??For patients who have questions please contact the health floor care technician that requested your imaging first. ? Electronically signed by: KENDALL PACHECO MD, [facility] ([phone]), at 03/13/2021 1:22 PM Narrative 03/13/2021 1:22 [...] patients who have questions please contactthe health floor care technician that requested your imaging first. Electronically signed by: KENDALL PACHECO MD, [facility]([phone]), at 03/13/2021 1:22 PM Kendall Khalil MD [...] who have questions please contact the health floor care technician that requested your imaging first. ? Electronically signed by: KENDALL PACHECO MD, [facility] ([phone]), at 03/13/2021 9:41 AM Narrative 03/13/2021 9:41 [...] patients who have questions please contactthe health floor care technician that requested your imaging first. Electronically signed by: KENDALL PACHECO MD, [facility]([phone]), at 03/13/2021 9:41 AM Kendall Khalil MD IMG DX ORDERABLES * Green Tube HOLD (03/13/2021 3:47 AM EDT) Green Hold Sample in lab. [facility] Blood Venous Draw / Unknown 03/13/2021 3:47 AM EDT 03/13/2021 4:24 AM EDT Uri Sawyer MD CHEMISTRY ORDERABLES [facility] [place] [address] * (ABNORMAL) Differential, Automated (03/13/2021 3:47 AM EDT) Neutrophil % 82.8 % [facility] Neutrophil Absolute 11.20(H) 1.70 - 6.10 x10(3)/[facility] Lymph % 6.4 % [facility] Lymphocytes Abs 0.9 0.9 - 3.2 x10(3)/[facility] Monocyte % 7.8 % [facility] Monocyte Abs 1.1(H) 0.3 - 0.9 x10(3)/[facility] Eos % 2.0 % [facility] Eosinophils Abs 0.3 0.0 - 0.4 x10(3)/[facility] Basophil % 0.3 % [facility] Baso Absolute 0.0 0.0 - 0.1 x10(3)/[facility] Immature Gran % 0.70 % [facility] Comment: Immature granulocytes(IG's)percentage and absolute count will include metamyelocytes, myelocytes, and promyelocytes. Blood smears from CBCs yielding IG's will be scanned manually for concordance. If this scan disagrees with the automated IG or if promyelocytes are noted, a manual differential will be performed. Immature Gran Absolute 0.09(H) 0.00 - 0.04 x10(3)/[facility] Blood 03/13/2021 3:47 AM EDT 03/13/2021 4:23 AM EDT Narrative Resulting Agency Comment Spec In Lab Ashanti May MD HEMATOLOGY ORDERABLE S [facility] [place] [address] * (ABNORMAL) Hemogram (03/13/2021 3:47 AM EDT) White Blood Cell 13.5(H) 4.0 - 9.5 x10(3)/mc L [facility] Red Blood Cell 2.70(L) 4.58 - 5.54 x10(6)/mc L [facility] Hemoglobin 8.1(L) 13.7 - 16.5 gm/dL [facility] Hematocrit 24.0(L) 40.5 - 48.5 % [facility] Mean Cell Volume 88.9 82.9 - 93.1 fL [facility] Mean Cell Hemoglobin 30.0 27.5 - 32.1 pg [facility] Mean Cell Hemoglobin Concentration 33.8 32.0 - 35.7 gm/dL [facility] Platelet 316 145 - 357 x10(3)/ L [facility] RDW Standard Deviation 44.9 36.0 - 45.0 [facility] RDW coefficient of variation 14.4(H) 11.4 - 13.8 % [facility] Mean Platelet Volume 9.6 7.6 - 12.9 [facility] NRBC% auto 0.4 % [facility] NRBC Absolute 0.050(H) 0.000 - 0.000 x10(3)/[facility] Blood 03/13/2021 3:47 AM EDT 03/13/2021 4:23 AM EDT Narrative Resulting Agency Comment Spec In Lab Ashanti May MD HEMATOLOGY ORDERABLE S [facility] [place] [address] * (ABNORMAL) Prothrombin Time (03/13/2021 3:47 AM EDT) Prothrombin Time 12.9(H) 9.4 - 12.5 sec [facility] International Normalization Ratio 1.1 [facility] Comment: An INR <2.0 indicates [...] MD HEMATOLOGY ORDERABLE S Performing Organization Address [facility] de Phone Number [facility] [place] [address] * Prothrombin Time (03/12/2021 6:12 PM EDT) Prothrombin Time 11.7 9.4 - 12.5 sec [facility] International Normalization Ratio 1.0 [facility] Comment: An INR <2.0 indicates [...] Narrative Resulting Agency Comment Spec In Lab eKndall Khalil MD HEMATOLOGY ORDERABLE S Performing Organization Address [facility] Co de Phone Number [facility] [place] [address] * Transfuse RBC (03/12/2021 5:24 PM EDT) [...] who have questions please contact the health floor care technician that requested your imaging first. ? Electronically signed by: Malika Thayer MD, [facility] ([phone]), at 03/12/2021 2:56 PM Narrative 03/12/2021 2:56 PM EDT EXAMINATION: XR [...] patients who have questions please contactthe health floor care technician that requested your imaging first. Electronically signed by: Malika Thayer MD, [facility]([phone]), at 03/12/2021 2:56 PM Kendall Khalil MD IMG DX ORDERABLES * Type and Screen Validity (03/12/2021 12:10 PM EDT) [facility] T&S only valid at [facility]ATORY Comment:This Type and Screen result is only valid at the [facility] Blood 03/12/2021 12:1 0 PM EDT 03/12/2021 12:21 PM EDT Narrative Resulting Agency Comment Spec In Lab Pardeep [facility]LOOD [facility] LAB OR DERABLES Performing Organization Address City/[facility]/ZIP Co de Phone Number [facility] [place] [address] * ABORH Recheck Status (03/12/2021 12:10 PM EDT) [facility] ABORH Type Recheck Completed [facility] Blood 03/12/2021 12:1 0 PM EDT 03/12/2021 12:21 PM EDT Narrative Resulting Agency Comment Spec In Lab Pardeep [facility] BLOOD [facility] LAB OR DERABLES [facility] [place] [address] * Antibody screen (03/12/2021 12:10 PM EDT) [facility] Ab Screen Interp Negative [facility] Expires at 2359 on: 03/15/2021 [facility] Blood 03/12/2021 12:1 0 PM EDT 03/12/2021 12:21 PM EDT Narrative Resulting Agency Comment Spec In Lab Pardeep [facility] BLOOD [facility] LAB OR DERABLES [facility] [place] [address] * ABO/Rh Typing (03/12/2021 12:10 PM EDT) [facility] Type A Neg [facility] Blood 03/12/2021 12:1 0 PM EDT 03/12/2021 12:21 PM EDT Narrative Resulting Agency Comment Spec In Lab Pardeep DELAROSA BLOOD BANK LAB OR DERABLES Performing Organization Address [facility]/ZIP Co de Phone Number [facility] [place] [address] * Prepare RBC (03/12/2021 10:45 AM EDT) Dispensed? Yes [facility] Blood 03/12/2021 10:4 5 AM EDT 03/12/2021 10:43 AM EDT Narrative Resulting Agency Comment Spec In Lab Kendall Khalil MD BLOOD BANK PRODUCT O RDERABLES Performing Organization Address City/[facility]/ZIP Co de Phone Number [facility] [place] [address] * Green Tube HOLD (03/12/2021 8:31 AM EDT) Green Hold Sample in lab. [facility] Blood Venous Draw / Unknown 03/12/2021 8:31 AM EDT 03/12/2021 8:38 AM EDT Ashanti May MD CHEMISTRY ORDERABLES Performing Organization Address City/[facility]/ZIP Co de Phone Number [facility] [place] [address] * (ABNORMAL) Differential, Automated (03/12/2021 8:31 AM EDT) Pathologist [facility] Neutrophil % 70.0 % [facility] Neutrophil Absolute 6.10 1.70 - 6.10 x10(3)/ L [facility] Lymph % 13.8 % [facility] Lymphocytes Abs 1.2 0.9 - 3.2 x10(3)/[facility]OR[facility] Monocyte % 9.3 % [facility] Monocyte Abs 0.8 0.3 - 0.9 x10(3)/[facility] LABOR[facility] Eos % 5.1 % [facility] Eosinophils Abs 0.4 0.0 - 0.4 x10(3)/[facility]OR[facility]ORY Basophil % 0.7 % [facility] Baso Absolute 0.1 0.0 - 0.1 x10(3)/[facility]OR[facility]ORY Immature Gran % 1.10 % [facility] Comment: Immature granulocytes(IG's)percentage and absolute count will include metamyelocytes, myelocytes, and promyelocytes. Blood smears from CBCs yielding IG's will be scanned manually for concordance. If this scan disagrees with the automated IG or if promyelocytes are noted, a manual differential will be performed. Immature Gran Absolute 0.10(H) 0.00 - 0.04 x10(3)/[facility] Blood 03/12/2021 8:31 AM EDT 03/12/2021 8:38 AM EDT Narrative Resulting Agency Comment Spec In Lab Ashanti May MD HEMATOLOGY ORDERABLE S [facility] [place] [address] * (ABNORMAL) Hemogram (03/12/2021 8:31 AM EDT) [facility] White Blood Cell 8.7 4.0 - 9.5 x10(3)/mc L [facility] Red Blood Cell 2.34(L) 4.58 - 5.54 x10(6)/mc L [facility] Hemoglobin 7.0(L) 13.7 - 16.5 gm/dL [facility] Hematocrit 20.8(L) 40.5 - 48.5 % [facility] Mean Cell Volume 88.9 82.9 - 93.1 fL [facility] Mean Cell Hemoglobin 29.9 27.5 - 32.1 pg [facility] Mean Cell Hemoglobin Concentration 33.7 32.0 - 35.7 gm/dL [facility] Platelet 275 145 - 357 x10(3)/[facility] LABORATORY RDW Standard Deviation 45.6(H) 36.0 - 45.0 fL [facility] RDW coefficient of variation 14.4(H) 11.4 - 13.8 % [facility] Mean Platelet Volume 9.5 7.6 - 12.9 [facility] LABORATORY NRBC% auto 0.5 % [facility] NRBC Absolute 0.040(H) 0.000 - 0.000 x10(3)/[facility] Blood 03/12/2021 8:31 AM EDT 03/12/2021 8:38 AM EDT Narrative Resulting Agency Comment Spec In Lab Ashanti May MD HEMATOLOGY ORDERABLE S [facility] [place] [address] * (ABNORMAL) Differential, Automated (03/11/2021 12:48 PM EDT) Neutrophil % 65.8 % [facility] Neutrophil Absolute 5.12 1.70 - 6.10 x10(3)/ L [facility] Lymph % 14.2 % [facility] Lymphocytes Abs 1.1 0.9 - 3.2 x10(3)/mc L [facility] Monocyte % 11.0 % [facility] Monocyte Abs 0.9 0.3 - 0.9 x10(3)/ L [facility] Eos % 6.9 % [facility] Eosinophils Abs 0.5(H) 0.0 - 0.4 x10(3)/ L [facility] Basophil % 0.6 % [facility] Baso Absolute 0.0 0.0 - 0.1 x10(3)/[facility] LABORATORY Immature Gran % 1.50 % [facility] Comment: Immature granulocytes(IG's)percentage and absolute count will include metamyelocytes, myelocytes, and promyelocytes. Blood smears from CBCs yielding IG's will be scanned manually for concordance. If this scan disagrees with the automated IG or if promyelocytes are noted, a manual differential will be performed. Immature Gran Absolute 0.12(H) 0.00 - 0.04 x10(3)/[facility] LABORATORY Blood 03/11/2021 12:4 8 PM EDT 03/11/2021 1:27 PM EDT Narrative Resulting Agency Comment Spec In Lab Ashanti May MD HEMATOLOGY ORDERABLE S Performing Organization Address City/State/[facility] Co de Phone Number [facility] [place] [address] * (ABNORMAL) Hemogram (03/11/2021 12:48 PM EDT) White Blood Cell 7.8 4.0 - 9.5 x10(3)/[facility] LABORATORY Red Blood Cell 2.55(L) 4.58 - 5.54 x10(6)/ L [facility] Hemoglobin 7.3(L) 13.7 - 16.5 gm/dL [facility] Hematocrit 22.6(L) 40.5 - 48.5 % [facility] Mean Cell Volume 88.6 82.9 - 93.1 fL [facility] Mean Cell Hemoglobin 28.6 27.5 - 32.1 pg [facility] Mean Cell Hemoglobin Concentration 32.3 32.0 - 35.7 gm/dL [facility] Platelet 251 145 - 357 x10(3)/mc L [facility] RDW Standard Deviation 46.9(H) 36.0 - 45.0 fL [facility] RDW coefficient of variation 14.5(H) 11.4 - 13.8 % [facility] Mean Platelet Volume 10.3 7.6 - 12.9 fL [facility] NRBC% auto 0.4 % [facility] NRBC Absolute 0.030(H) 0.000 - 0.000 x10(3)/mc L [facility] Blood 03/11/2021 12:4 8 PM EDT 03/11/2021 1:27 PM EDT Narrative Resulting Agency Comment Spec In Lab Ashanti May MD HEMATOLOGY ORDERABLE S Performing Organization Address City/State/[facility] Co de Phone Number [facility] [place] [address] * (ABNORMAL) Basic Metabolic Panel (non-fasting) (03/11/2021 12:48 PM EDT) Glucose 100 65 - 199 mg/dL [facility] Comment:Diabetes: >=200 mg/d L plus symptoms Blood Urea Nitrogen 19 10 - 20 mg/dL [facility] Creatinine 0.93 0.80 - 1.50 mg/dL [facility] Sodium 140 135 - 145 mmol/L [facility] Potassium 3.9 3.5 - 5.0 mmol/L [facility] Comment: Please note: ??Patients with WBC >100,000 may have falsely elevated Potassium levels. ??For accurate Potassium quantification in these patients send serum separator tube (gold top) for subsequent determinations. ??Contact the Clinical Chemistry Laboratory if there are any questions. Chloride 106 98 - 107 mmol/L [facility] Carbon Dioxide 23 22 - 31 mmol/L [facility] Anion Gap 11 5 - 15 mmol/L [facility] Calcium 8.3(L) 8.5 - 10.5 mg/dL [facility] Est Glomerular Filtration Rate 82 >=60 mL/min/1. 73 m?? [facility] Comment: This patient? s estimated [...] In Lab Kendall Khalil MD CHEMISTRY ORDERABLES [facility] [place] [address] * XR Chest PA & Lateral (Generic) [...] who have questions please contact the health floor care technician that requested your imaging first. ? Electronically signed by: Mirella Fowler MD, [facility] ([phone]), at 03/10/2021 8:41 AM Narrative 03/10/2021 8:41 [...] patients who have questions please contactthe health floor care technician that requested your imaging first. Electronically signed by: Mirella Fowler MD, [facility]([phone]), at 03/10/2021 8:41 AM Kendall Khalil MD IMG DX ORDERABLES * (ABNORMAL) Differential, Automated (03/10/2021 5:52 AM EDT) Neutrophil % 79.5 % [facility] Neutrophil Absolute 8.74(H) 1.70 - 6.10 x10(3)/[facility] LABORATORY Lymph % 9.8 % [facility] Lymphocytes Abs 1.1 0.9 - 3.2 x10(3)/[facility] LABOR[facility]ORY Monocyte % 9.5 % [facility] Monocyte Abs 1.0(H) 0.3 - 0.9 x10(3)/[facility] LABORATORY Eos % 0.5 % [facility] Eosinophils Abs 0.1 0.0 - 0.4 x10(3)/[facility]OR[facility]ORY Basophil % 0.2 % [facility] Baso Absolute 0.0 0.0 - 0.1 x10(3)/[facility] LABORATORY Immature Gran % 0.50 % [facility] Comment: Immature granulocytes(IG's)percentage and absolute count will include metamyelocytes, myelocytes, and promyelocytes. Blood smears from CBCs yielding IG's will be scanned manually for concordance. If this scan disagrees with the automated IG or if promyelocytes are noted, a manual differential will be performed. Immature Gran Absolute 0.05(H) 0.00 - 0.04 x10(3)/[facility]AT[facility] Blood 03/10/2021 5:52 AM EDT 03/10/2021 6:21 AM EDT Narrative Resulting Agency Comment Spec In Lab Ashanti May MD HEMATOLOGY ORDERABLE S [facility] [place] [address] * (ABNORMAL) Hemogram (03/10/2021 5:52 AM EDT) White Blood Cell 11.0(H) 4.0 - 9.5 x10(3)/mc L [facility] Red Blood Cell 2.56(L) 4.58 - 5.54 x10(6)/mc L [facility] Hemoglobin 7.6(L) 13.7 - 16.5 gm/dL [facility] Hematocrit 22.3(L) 40.5 - 48.5 % [facility] Mean Cell Volume 87.1 82.9 - 93.1 fL [facility] Mean Cell Hemoglobin 29.7 27.5 - 32.1 pg [facility] Mean Cell Hemoglobin Concentration 34.1 32.0 - 35.7 gm/dL [facility] Platelet 208 145 - 357 x10(3)/mc L [facility] RDW Standard Deviation 47.7(H) 36.0 - 45.0 fL [facility] RDW coefficient of variation 14.9(H) 11.4 - 13.8 % [facility] Mean Platelet Volume 9.8 7.6 - 12.9 fL [facility] NRBC% auto 0.0 % [facility] NRBC Absolute 0.000 0.000 - 0.000 x10(3)/mc L [facility] Blood 03/10/2021 5:52 AM EDT 03/10/2021 6:21 AM EDT Narrative Resulting Agency Comment Spec In Lab Ashanti May MD HEMATOLOGY ORDERABLE S [facility] [place] [address] * (ABNORMAL) Phosphorus (03/10/2021 5:52 AM EDT) Phosphorus 2.4(L) 2.5 - 4.5 mg/dL [facility] Blood 03/10/2021 5:52 AM EDT 03/10/2021 6:21 AM EDT Narrative Resulting Agency Comment Spec In Lab Kendall Kahlil MD CHEMISTRY ORDERABLES Performing Organization Address [facility] Co de Phone Number [facility] [place] [address] * Magnesium (03/10/2021 5:52 AM EDT) Pathologist [facility] Magnesium 0.92 0.69 - 1.07 mmol/L [facility] Blood 03/10/2021 5:52 AM EDT 03/10/2021 6:21 AM EDT Narrative Resulting Agency Comment Spec In Lab Kendall Khalil MD CHEMISTRY ORDERABLES Performing Organization Address [facility] Co de Phone Number [facility] [place] [address] * (ABNORMAL) Basic Metabolic Panel (non-fasting) (03/10/2021 5:52 AM EDT) Pathologist [facility] Glucose 106 65 - 199 mg/dL [facility] Comment:Diabetes: >=200 mg/d L plus symptoms Blood Urea Nitrogen 18 10 - 20 mg/dL [facility] Creatinine 0.76(L) 0.80 - 1.50 mg/dL [facility] Sodium 133(L) 135 - 145 mmol/L [facility] Potassium 4.5 3.5 - 5.0 mmol/L [facility] Comment: Please note: ??Patients with WBC >100,000 may have falsely elevated Potassium levels. ??For accurate Potassium quantification in these patients send serum separator tube (gold top) for subsequent determinations. ??Contact the Clinical Chemistry Laboratory if there are any questions. Chloride 104 98 - 107 mmol/L [facility] Carbon Dioxide 22 22 - 31 mmol/L [facility] Anion Gap 7 5 - 15 mmol/L [facility] Calcium 7.9(L) 8.5 - 10.5 mg/dL [facility] Est Glomerular Filtration Rate 92 >=60 mL/min/1. 73 m?? [facility] Comment: This patient? s estimated [...] Khalil MD CHEMISTRY ORDERABLES Performing Organization Address City/State/[facility] Co de Phone Number [facility] [place] [address] * XR Chest One View (03/09/2021 12:50 [...] who have questions please contact the health floor care technician that requested your imaging first. ? Electronically signed by: GERMANIA BLAIR MD, [facility] ([phone]), at 03/09/2021 1:15 PM Narrative 03/09/2021 1:15 [...] patients who have questions please contactthe health floor care technician that requested your imaging first. Electronically signed by: GERMANIA BLAIR MD, [facility]([phone]), at 03/09/2021 1:15 PM Kendall Khalil MD IMG DX ORDERABLES * (ABNORMAL) Differential, Automated (03/09/2021 11:55 AM EDT) Neutrophil % 92.8 % [facility] Neutrophil Absolute 13.14(H) 1.70 - 6.10 x10(3)/mc L [facility] Lymph % 2.4 % [facility] Lymphocytes Abs 0.3(L) 0.9 - 3.2 x10(3)/mc L [facility] Monocyte % 4.0 % [facility] Monocyte Abs 0.6 0.3 - 0.9 x10(3)/[facility] Eos % 0.1 % [facility] Eosinophils Abs 0.0 0.0 - 0.4 x10(3)/[facility] Basophil % 0.2 % [facility] Baso Absolute 0.0 0.0 - 0.1 x10(3)/mc L [facility] Immature Gran % 0.50 % [facility] Comment: Immature granulocytes(IG's)percentage and absolute count will include metamyelocytes, myelocytes, and promyelocytes. Blood smears from CBCs yielding IG's will be scanned manually for concordance. If this scan disagrees with the automated IG or if promyelocytes are noted, a manual differential will be performed. Immature Gran Absolute 0.07(H) 0.00 - 0.04 x10(3)/mc L [facility] Blood 03/09/2021 11:5 5 AM EDT 03/09/2021 1:26 PM EDT Narrative Resulting Agency Comment Spec In Lab Ashanti May MD HEMATOLOGY ORDERABLE S [facility] [place] [address] * (ABNORMAL) Hemogram (03/09/2021 11:55 AM EDT) White Blood Cell 14.2(H) 4.0 - 9.5 x10(3)/mc L [facility] Red Blood Cell 2.81(L) 4.58 - 5.54 x10(6)/mc L [facility] Hemoglobin 8.4(L) 13.7 - 16.5 gm/dL [facility] Hematocrit 24.5(L) 40.5 - 48.5 % [facility] Mean Cell Volume 87.2 82.9 - 93.1 fL [facility] Mean Cell Hemoglobin 29.9 27.5 - 32.1 pg [facility] Mean Cell Hemoglobin Concentration 34.3 32.0 - 35.7 gm/dL [facility] Platelet 178 145 - 357 x10(3)/[facility] LABORATORY RDW Standard Deviation 46.4(H) 36.0 - 45.0 [facility]OR[facility]ORY RDW coefficient of variation 14.4(H) 11.4 - 13.8 % [facility] Mean Platelet Volume 10.6 7.6 - 12.9 fL [facility] NRBC% auto 0.0 % [facility] NRBC Absolute 0.000 0.000 - 0.000 x10(3)/[facility] Blood 03/09/2021 11:5 5 AM EDT 03/09/2021 1:26 PM EDT Narrative Resulting Agency Comment Spec In Lab Ashanti May MD HEMATOLOGY ORDERABLE S [facility] [place] [address] * (ABNORMAL) Phosphorus (03/09/2021 11:55 AM EDT) Phosphorus 4.7(H) 2.5 - 4.5 mg/dL [facility] Blood 03/09/2021 11:5 5 AM EDT 03/09/2021 1:26 PM EDT Narrative Resulting Agency Comment Spec In Lab Kendall Khalil MD CHEMISTRY ORDERABLES Performing Organization Address City/[facility]/ZIP Co de Phone Number [facility] [place] [address] * Magnesium (03/09/2021 11:55 AM EDT) Magnesium 0.91 0.69 - 1.07 mmol/L [facility] Blood 03/09/2021 11:5 5 AM EDT 03/09/2021 1:26 PM EDT Narrative Resulting Agency Comment Spec In Lab Kendall Khalil MD CHEMISTRY ORDERABLES Performing Organization Address [facility] Co de Phone Number [facility] [place] [address] * (ABNORMAL) Basic Metabolic Panel (non-fasting) (03/09/2021 11:55 AM EDT) Glucose Not Perf 65 - 199 [facility] Comment: Sample improperly processed prior to receipt. Unspun for >1hr. Diabetes: >=200 mg/dL plus symptoms Blood Urea Nitrogen 17 10 - 20 mg/dL [facility] Creatinine 0.81 0.80 - 1.50 mg/dL [facility] Sodium 132(L) 135 - 145 mmol/L [facility] Potassium 4.6 3.5 - 5.0 mmol/L [facility] Comment: Please note: ??Patients with WBC >100,000 may have falsely elevated Potassium levels. ??For accurate Potassium quantification in these patients send serum separator tube (gold top) for subsequent determinations. ??Contact the Clinical Chemistry Laboratory if there are any questions. Chloride 99 98 - 107 mmol/L [facility] Carbon Dioxide 23 22 - 31 mmol/L [facility] Anion Gap 10 5 - 15 mmol/L [facility] Calcium 7.7(L) 8.5 - 10.5 mg/dL [facility] Est Glomerular Filtration Rate 89 >=60 mL/min/1. 73 m?? [facility] Comment: This patient? s estimated [...] In Lab Kendall Khalil MD CHEMISTRY ORDERABLES [facility] [place] [address] * (ABNORMAL) BLOOD GAS 2 ARTERIAL (03/09/2021 9:27 AM EDT) pH, Arterial 7.42 7.35 - 7.45 [facility] PCO2, Arterial 44 35 - 45 mmHg [facility] PO2, Arterial 137(H) 85 - 104 mmHg [facility] Bicarbonate, Arterial 28.1(H) 20.0 - 26.0 mmol/L [facility] Base Excess, Arterial 3.6(H) -3.0 - 3.0 mmol/L [facility] Hgb Blood Gas 8.6(L) 13.7 - 16.5 gm/dL [facility] Oxyhemoglobin, Arterial 97.2(H) 94.0 - 97.0 % [facility] Carboxyhemoglob in, Arterial 1.1 % [facility] Comment: Nonsmokers: 0.5-1.5% COHB Smokers: Variable, but usually less than 10% Toxic: 20-30% COHB Lethal: Greater than 60% COHB Methemoglobin, Arterial 0.3 <=1.5 % [facility] Na Whole Blood 129(L) 135 - 145 mmol/L [facility] K Whole Blood 4.7 3.5 - 5.0 mmol/L [facility] Comment: Please note: Patients with WBC >100,000 may have falsely elevated Potassium levels. Contact the Clinical Chemistry Laboratory if there are any questions. ICa Whole Blood 1.05(L) 1.15 - 1.33 mmol/L [facility] Comment: Note: ??Total bilirubin higher than 20 mg/dL may lead to falsely low ionized calcium. CL Whole Blood 100 98 - 107 mmol/L [facility] Gluc Whole Bld 132 65 - 199 mg/dL [facility] Comment:Diabetes: >=200 mg/d L plus symptoms. Lactate WB 1.7 0.5 - 2.2 mmol/L [facility] Blood 03/09/2021 9:27 AM EDT 03/09/2021 9:27 AM EDT Kendall Khalil MD POINT OF CARE TEST O RDERABLES [facility] [place] [address] * Prepare RBC (03/09/2021 7:15 AM EDT) Dispensed? Yes [facility] Blood 03/09/2021 7:15 AM EDT 03/09/2021 7:10 AM EDT Narrative Resulting Agency Comment Spec In Lab Kendall Khalil MD BLOOD BANK PRODUCT O RDERABLES [facility] [place] [address] * XR Chest One View (03/09/2021 6:54 [...] who have questions please contact the health floor care technician that requested your imaging first. ? Electronically signed by: Tirso Burton MD, [facility] ([phone]), at 03/09/2021 7:28 AM Narrative 03/09/2021 7:28 AM EDT EXAMINATION: XR [...] patients who have questions please contactthe health floor care technician that requested your imaging first. Electronically signed by: Tirso Burton MD, [facility]([phone]), at 03/09/2021 7:28 AM Kendall Khalil MD IMG DX ORDERABLES * POCT Glucose (03/09/2021 4:42 AM EDT) Glucose, POC 177 65 - 199 mg/dL [facility] Comment: Supplemental ranges: <140 mg/dL before meals <180 mg/dL all other times of the day Blood 03/09/2021 4:42 AM EDT 03/09/2021 4:42 AM EDT Kendall Khalil MD POINT OF CARE TEST O RDERABLES Performing Organization Address City/[facility]/[place] [address] * (ABNORMAL) Differential, Automated (03/09/2021 2:57 AM EDT) Neutrophil % 82.6 % [facility] Neutrophil Absolute 10.25(H) 1.70 - 6.10 x10(3)/mc L [facility] Lymph % 8.4 % [facility] Lymphocytes Abs 1.0 0.9 - 3.2 x10(3)/ L [facility] Monocyte % 7.8 % [facility] Monocyte Abs 1.0(H) 0.3 - 0.9 x10(3)/mc L [facility] Eos % 0.6 % [facility] Eosinophils Abs 0.1 0.0 - 0.4 x10(3)/ L [facility] Basophil % 0.2 % [facility] Baso Absolute 0.0 0.0 - 0.1 x10(3)/ L [facility] Immature Gran % 0.40 % [facility] Comment: Immature granulocytes(IG's)percentage and absolute count will include metamyelocytes, myelocytes, and promyelocytes. Blood smears from CBCs yielding IG's will be scanned manually for concordance. If this scan disagrees with the automated IG or if promyelocytes are noted, a manual differential will be performed. Immature Gran Absolute 0.05(H) 0.00 - 0.04 x10(3)/ L [facility] Blood 03/09/2021 2:57 AM EDT 03/09/2021 3:31 AM EDT Narrative Resulting Agency Comment Spec In Lab Ashanti May MD HEMATOLOGY ORDERABLE S Performing Organization Address City/[facility]/ZIP Co de Phone Number [facility] [place] [address] * (ABNORMAL) Hemogram (03/09/2021 2:57 AM EDT) White Blood Cell 12.4(H) 4.0 - 9.5 x10(3)/[facility] LABORATORY Red Blood Cell 2.64(L) 4.58 - 5.54 x10(6)/[facility] Hemoglobin 7.9(L) 13.7 - 16.5 gm/dL [facility] Hematocrit 23.6(L) 40.5 - 48.5 % [facility] Mean Cell Volume 89.4 82.9 - 93.1 fL [facility] Mean Cell Hemoglobin 29.9 27.5 - 32.1 pg [facility] Mean Cell Hemoglobin Concentration 33.5 32.0 - 35.7 gm/dL [facility] Platelet 187 145 - 357 x10(3)/[facility] LABORATORY RDW Standard Deviation 43.7 36.0 - 45.0 [facility] LABORATORY RDW coefficient of variation 13.4 11.4 - 13.8 % [facility] Mean Platelet Volume 10.4 7.6 - 12.9 fL [facility] NRBC% auto 0.0 % [facility] NRBC Absolute 0.000 0.000 - 0.000 x10(3)/[facility] Blood 03/09/2021 2:57 AM EDT 03/09/2021 3:31 AM EDT Narrative Resulting Agency Comment Spec In Lab Ashanti May MD HEMATOLOGY ORDERABLE S [facility] [place] [address] * Phosphorus (03/09/2021 2:57 AM EDT) Pathologist [facility] Phosphorus 3.1 2.5 - 4.5 mg/dL [facility] Blood 03/09/2021 2:57 AM EDT 03/09/2021 3:31 AM EDT Narrative Resulting Agency Comment Spec In Lab Kendall Khalil MD CHEMISTRY ORDERABLES Performing Organization Address [facility]/ZIP Co de Phone Number [facility] [place] [address] * Magnesium (03/09/2021 2:57 AM EDT) Magnesium 0.85 0.69 - 1.07 mmol/L [facility] Blood 03/09/2021 2:57 AM EDT 03/09/2021 3:31 AM EDT Narrative Resulting Agency Comment Spec In Lab Kendall Khalil MD CHEMISTRY ORDERABLES Performing Organization Address [facility] Co de Phone Number [facility] [place] [address] * (ABNORMAL) Basic Metabolic Panel (non-fasting) (03/09/2021 2:57 AM EDT) Glucose 112 65 - 199 mg/dL [facility] Comment:Diabetes: >=200 mg/d L plus symptoms Blood Urea Nitrogen 14 10 - 20 mg/dL [facility] Creatinine 0.81 0.80 - 1.50 mg/dL [facility] Sodium 132(L) 135 - 145 mmol/L [facility] Potassium 4.1 3.5 - 5.0 mmol/L [facility] Comment: Please note: ??Patients with WBC >100,000 may have falsely elevated Potassium levels. ??For accurate Potassium quantification in these patients send serum separator tube (gold top) for subsequent determinations. ??Contact the Clinical Chemistry Laboratory if there are any questions. Chloride 98 98 - 107 mmol/L [facility] Carbon Dioxide 26 22 - 31 mmol/L [facility] Anion Gap 8 5 - 15 mmol/L [facility] Calcium 8.0(L) 8.5 - 10.5 mg/dL [facility] Est Glomerular Filtration Rate 89 >=60 mL/min/1. 73 m?? [facility] Comment: This patient? s estimated [...] In Lab Kendall Khalil MD CHEMISTRY ORDERABLES [facility] [place] [address] * (ABNORMAL) Differential, Automated (03/08/2021 8:40 PM EDT) Neutrophil % 86.8 % [facility] Neutrophil Absolute 12.59(H) 1.70 - 6.10 x10(3)/mc L [facility] Lymph % 4.5 % [facility] Lymphocytes Abs 0.7(L) 0.9 - 3.2 x10(3)/mc L [facility] Monocyte % 7.5 % [facility] Monocyte Abs 1.1(H) 0.3 - 0.9 x10(3)/mc L [facility] Eos % 0.0 % [facility] Eosinophils Abs 0.0 0.0 - 0.4 x10(3)/mc L [facility] Basophil % 0.1 % [facility] Baso Absolute 0.0 0.0 - 0.1 x10(3)/mc L [facility] Immature Gran % 1.10 % [facility] Comment: Immature granulocytes(IG's)percentage and absolute count will include metamyelocytes, myelocytes, and promyelocytes. Blood smears from CBCs yielding IG's will be scanned manually for concordance. If this scan disagrees with the automated IG or if promyelocytes are noted, a manual differential will be performed. Immature Gran Absolute 0.16(H) 0.00 - 0.04 x10(3)/mc L [facility] Blood 03/08/2021 8:40 PM EDT 03/08/2021 8:49 PM EDT Narrative Resulting Agency Comment Spec In Lab Jian Olivarez MD HEMATOLOGY ORDERABLE S [facility] [place] [address] * (ABNORMAL) Hemogram (03/08/2021 8:40 PM EDT) White Blood Cell 14.5(H) 4.0 - 9.5 x10(3)/ L [facility] Red Blood Cell 3.29(L) 4.58 - 5.54 x10(6)/mc L [facility] Hemoglobin 9.7(L) 13.7 - 16.5 gm/dL [facility] Hematocrit 29.0(L) 40.5 - 48.5 % [facility] Mean Cell Volume 88.1 82.9 - 93.1 fL [facility] Mean Cell Hemoglobin 29.5 27.5 - 32.1 pg [facility] Mean Cell Hemoglobin Concentration 33.4 32.0 - 35.7 gm/dL [facility] Platelet 187 145 - 357 x10(3)/mc L [facility] RDW Standard Deviation 43.1 36.0 - 45.0 fL [facility] RDW coefficient of variation 13.2 11.4 - 13.8 % [facility] Mean Platelet Volume 10.3 7.6 - 12.9 fL [facility] NRBC% auto 0.0 % [facility] NRBC Absolute 0.000 0.000 - 0.000 x10(3)/mc L [facility] Blood 03/08/2021 8:40 PM EDT 03/08/2021 8:49 PM EDT Narrative Resulting Agency Comment Spec In Lab Jian Olivarez MD HEMATOLOGY ORDERABLE S [facility] [place] [address] * Type and Screen Validity (03/08/2021 4:36 PM EDT) [facility] T&S only valid at [facility]ATORY Comment:This Type and Screen result is only valid at the [facility] Blood 03/08/2021 4:36 PM EDT 03/08/2021 4:41 PM EDT Narrative Resulting Agency Comment Spec In Lab Ashanti May MD BLOOD BANK LAB ORDER MADDISON [facility] [place] [address] * ABORH Recheck Status (03/08/2021 4:36 PM EDT) [facility] ABORH Type Recheck Completed [facility] Blood 03/08/2021 4:36 PM EDT 03/08/2021 4:41 PM EDT Narrative Resulting Agency Comment Spec In Lab Ashanti May MD BLOOD BANK LAB ORDER MADDISON [facility] [place] [address] * Antibody screen (03/08/2021 4:36 PM EDT) Ab Screen Interp Negative [facility] Expires at [id number] on: 03/11/2021 [facility] Blood 03/08/2021 4:36 PM EDT 03/08/2021 4:41 PM EDT Narrative Resulting Agency Comment Spec In Lab Ashanti May MD BLOOD BANK LAB ORDER MADDISON Performing Organization Address City/[facility]/ZIP Co de Phone Number [facility] [place] [address] * ABO/Rh Typing (03/08/2021 4:36 PM EDT) ABORH Type A Neg [facility] Blood 03/08/2021 4:36 PM EDT 03/08/2021 4:41 PM EDT Narrative Resulting Agency Comment Spec In Lab Ashanti May MD BLOOD BANK LAB ORDER MADDISON Performing Organization Address [facility] Co de Phone Number [facility] [place] [address] * XR Chest One View (03/08/2021 3:00 [...] who have questions please contact the health floor care technician that requested your imaging first. ? Electronically signed by: Malika Thayer MD, [facility] ([phone]), at 03/08/2021 3:08 PM Narrative 03/08/2021 3:08 [...] patients who have questions please contactthe health floor care technician that requested your imaging first. Electronically signed by: Malika Thayer MD, [facility]([phone]), at 03/08/2021 3:08 PM Kendall Khalil MD IMG DX ORDERABLES * EKG 12 Lead (03/08/2021 12:56 PM EDT) Ventricular rate 92 BPM MUSE SYSTEM Atrial Rate 92 BPM MUSE SYSTEM P-R Interval 180 ms MUSE SYSTEM QRS Duration 166 ms MUSE SYSTEM Q-T Interval 426 ms MUSE SYSTEM QTC Calculated (Bezet) 526 ms MUSE SYSTEM Calculated P Lopeno 43 degrees MUSE SYSTEM Calculated R Lopeno -63 degrees MUSE SYSTEM Calculated T Lopeno 62 degrees MUSE SYSTEM INTERPRETATION Atrial-sense d ventricular- paced rhythm Underlying normal sinus rhythm Abnormal ECG When compared with ECG of 05-MAR-2021 15:30, Vent. rate has increased BY ??19 BPM Confirmed by Devonte Newsome ([id number]) on 03/08/2021 4:10:26 PM MUSE SYSTEM 03/08/2021 12:5 6 PM EDT 03/08/2021 4:10 PM EDT Kendall Khalil MD ECG ORDERABLES MUSE SYSTEM * (ABNORMAL) Differential, Automated (03/08/2021 12:47 PM EDT) Neutrophil % 85.5 % [facility] Neutrophil Absolute 9.55(H) 1.70 - 6.10 x10(3)/mc L [facility] Lymph % 5.6 % [facility] Lymphocytes Abs 0.6(L) 0.9 - 3.2 x10(3)/mc L [facility] Monocyte % 8.1 % [facility] Monocyte Abs 0.9 0.3 - 0.9 x10(3)/mc L [facility] Eos % 0.1 % [facility] Eosinophils Abs 0.0 0.0 - 0.4 x10(3)/mc L [facility] Basophil % 0.3 % [facility] Baso Absolute 0.0 0.0 - 0.1 x10(3)/mc L [facility] Immature Gran % 0.40 % [facility] Comment: Immature granulocytes(IG's)percentage and absolute count will include metamyelocytes, myelocytes, and promyelocytes. Blood smears from CBCs yielding IG's will be scanned manually for concordance. If this scan disagrees with the automated IG or if promyelocytes are noted, a manual differential will be performed. Immature Gran Absolute 0.05(H) 0.00 - 0.04 x10(3)/mc L [facility] Blood 03/08/2021 12:4 7 PM EDT 03/08/2021 12:57 PM EDT Narrative Resulting Agency Comment Spec In Lab Ashanti May MD HEMATOLOGY ORDERABLE S [facility] [place] [address] * (ABNORMAL) Hemogram (03/08/2021 12:47 PM EDT) White Blood Cell 11.2(H) 4.0 - 9.5 x10(3)/ L [facility] Red Blood Cell 3.59(L) 4.58 - 5.54 x10(6)/[facility]ORATORY Hemoglobin 10.6(L) 13.7 - 16.5 gm/dL [facility] Hematocrit 31.6(L) 40.5 - 48.5 % [facility] Mean Cell Volume 88.0 82.9 - 93.1 [facility] Mean Cell Hemoglobin 29.5 27.5 - 32.1 pg [facility] Mean Cell Hemoglobin Concentration 33.5 32.0 - 35.7 gm/dL [facility] Platelet 170 145 - 357 x10(3)/[facility] LABORATORY RDW Standard Deviation 43.1 36.0 - 45.0 [facility] RDW coefficient of variation 13.2 11.4 - 13.8 % [facility] Mean Platelet Volume 10.6 7.6 - 12.9 [facility] NRBC% auto 0.0 % [facility] NRBC Absolute 0.000 0.000 - 0.000 x10(3)/ L [facility] Blood 03/08/2021 12:4 7 PM EDT 03/08/2021 12:57 PM EDT Narrative Resulting Agency Comment Spec In Lab Ashanti May MD HEMATOLOGY ORDERABLE S [facility] [place] [address] * Phosphorus (03/08/2021 12:47 PM EDT) Phosphorus 2.7 2.5 - 4.5 mg/dL [facility] Blood 03/08/2021 12:4 7 PM EDT 03/08/2021 12:57 PM EDT Narrative Resulting Agency Comment Spec In Lab Kendall Khalil MD CHEMISTRY ORDERABLES Performing Organization Address [facility] Co de Phone Number [facility] [place] [address] * Magnesium (03/08/2021 12:47 PM EDT) Magnesium 0.70 0.69 - 1.07 mmol/L [facility] Blood 03/08/2021 12:4 7 PM EDT 03/08/2021 12:57 PM EDT Narrative Resulting Agency Comment Spec In Lab Kendall Khalil MD CHEMISTRY ORDERABLES Performing Organization Address [facility] Co de Phone Number [facility] [place] [address] * (ABNORMAL) Basic Metabolic Panel (non-fasting) (03/08/2021 12:47 PM EDT) Glucose 109 65 - 199 mg/dL [facility] Comment:Diabetes: >=200 mg/d L plus symptoms Blood Urea Nitrogen 12 10 - 20 mg/dL [facility] Creatinine 0.78(L) 0.80 - 1.50 mg/dL [facility] Sodium 137 135 - 145 mmol/L [facility] Potassium 4.0 3.5 - 5.0 mmol/L [facility] Comment: Please note: ??Patients with WBC >100,000 may have falsely elevated Potassium levels. ??For accurate Potassium quantification in these patients send serum separator tube (gold top) for subsequent determinations. ??Contact the Clinical Chemistry Laboratory if there are any questions. Chloride 101 98 - 107 mmol/L [facility] Carbon Dioxide 26 22 - 31 mmol/L [facility] Anion Gap 10 5 - 15 mmol/L [facility] Calcium 8.5 8.5 - 10.5 mg/dL [facility] Est Glomerular Filtration Rate 91 >=60 mL/min/1. 73 m?? [facility] Comment: This patient? s estimated [...] In Lab Kendall Khalil MD CHEMISTRY ORDERABLES [facility] [place] [address] * CT Head wo Contrast (Generic) (03/08/2021 [...] who have questions please contact the health floor care technician that requested your imaging first. ? Narrative [...] patients who have questions please contactthe health floor care technician that requested your imaging first. Kendall Khalil MD IMG CT ORDERABLES * (ABNORMAL) Hemogram (03/08/2021 3:56 AM EDT) [facility] White Blood Cell 9.8(H) 4.0 - 9.5 x10(3)/ L [facility] Red Blood Cell 3.75(L) 4.58 - 5.54 x10(6)/mc L [facility] Hemoglobin 11.2(L) 13.7 - 16.5 gm/dL [facility] Hematocrit 33.6(L) 40.5 - 48.5 % [facility] Mean Cell Volume 89.6 82.9 - 93.1 fL [facility] Mean Cell Hemoglobin 29.9 27.5 - 32.1 pg [facility] Mean Cell Hemoglobin Concentration 33.3 32.0 - 35.7 gm/dL [facility] Platelet 165 145 - 357 x10(3)/[facility] LABORATORY RDW Standard Deviation 44.4 36.0 - 45.0 [facility]ORATORY RDW coefficient of variation 13.5 11.4 - 13.8 % [facility] Mean Platelet Volume 10.3 7.6 - 12.9 [facility] LABORATORY NRBC% auto 0.0 % [facility] NRBC Absolute 0.000 0.000 - 0.000 x10(3)/[facility] LABORATORY Blood 03/08/2021 3:56 AM EDT 03/08/2021 4:10 AM EDT Narrative Resulting Agency Comment Spec In Lab Jian Olivarez MD HEMATOLOGY ORDERABLE S [facility] [place] [address] * (ABNORMAL) Differential, Automated (03/08/2021 3:56 AM EDT) Pathologist [facility] Neutrophil % 79.2 % [facility] Neutrophil Absolute 7.71(H) 1.70 - 6.10 x10(3)/ L [facility] Lymph % 9.6 % [facility] Lymphocytes Abs 0.9 0.9 - 3.2 x10(3)/[facility] LABORATORY Monocyte % 9.1 % [facility] Monocyte Abs 0.9 0.3 - 0.9 x10(3)/[facility] LABORATORY Eos % 1.3 % [facility] Eosinophils Abs 0.1 0.0 - 0.4 x10(3)/[facility]ORATORY Basophil % 0.4 % [facility] Baso Absolute 0.0 0.0 - 0.1 x10(3)/[facility] LABORATORY Immature Gran % 0.40 % [facility] Comment: Immature granulocytes(IG's)percentage and absolute count will include metamyelocytes, myelocytes, and promyelocytes. Blood smears from CBCs yielding IG's will be scanned manually for concordance. If this scan disagrees with the automated IG or if promyelocytes are noted, a manual differential will be performed. Immature Gran Absolute 0.04 0.00 - 0.04 x10(3)/[facility] LABORATORY Blood 03/08/2021 3:56 AM EDT 03/08/2021 4:10 AM EDT Narrative Resulting Agency Comment Spec In Lab Jian Olivarez MD HEMATOLOGY ORDERABLE S Performing Organization Address City/State/[facility] Co de Phone Number [facility] [place] [address] * XR Chest PA & Lateral (Generic) [...] who have questions please contact the health floor care technician that requested your imaging first. ? Electronically signed by: Tirso Burton MD, [facility] ([phone]), at 03/08/2021 4:51 AM Narrative 03/08/2021 4:51 AM EDT EXAMINATION: XR [...] patients who have questions please contactthe health floor care technician that requested your imaging first. Electronically signed by: Tirso Burton MD, [facility]([phone]), at 03/08/2021 4:51 AM Kendall Khalil MD IMG DX ORDERABLES * APTT (03/06/2021 2:00 PM EDT) Partial Thromboplastin Time 32 25 - 37 sec [facility] Comment: The PTT is NOT appropriate for heparin monitoring. Use the Anti-Xa level for heparin monitoring (HEP UFH) or LMWH monitoring (HEP LMW). A PTT less than 37 seconds generally indicates adequate hemostasis. Blood specimen (specimen) 03/06/2021 2:00 PM EDT 03/06/2021 2:10 PM EDT Narrative Resulting Agency Comment Spec In Lab Kendall Khalil MD HEMATOLOGY ORDERABLE S [facility] [place] [address] * (ABNORMAL) Prothrombin Time (03/06/2021 2:00 PM EDT) Prothrombin Time 15.9(H) 9.4 - 12.5 sec [facility] International Normalization Ratio 1.4 [facility] Comment: An INR <2.0 indicates [...] Lab Kendall Khalil MD HEMATOLOGY ORDERABLE S [facility] [place] [address] * XR Chest One View (03/06/2021 1:06 [...] who have questions please contact the health floor care technician that requested your imaging first. ? Electronically signed by: GERMANIA BLAIR MD, [facility] ([phone]), at 03/06/2021 2:55 PM Narrative 03/06/2021 2:55 [...] patients who have questions please contactthe health floor care technician that requested your imaging first. Electronically signed by: GERMANIA BLAIR MD, [facility]([phone]), at 03/06/2021 2:55 PM Kendall Khalil MD IMG DX ORDERABLES * Specimen to Pathology (03/06/2021 10:57 AM EDT) AP Specimen 03/06/2021 10:5 7 AM EDT 03/06/2021 10:57 AM EDT Narrative [facility] - 03/06/2021 10:57 AM EDT Specimen requisition ordered. ??Separate Pathology report to follow Kendall Khalil MD PATHOLOGY/CYTOLOGY O RDERABLES [facility] [place] [address] * Surgical Pathology Report (03/06/2021 10:56 AM EDT) Final Diagnosis [id number] ? Location: [facility]; [facility]; A The signing pathologist has (i) examined the relevant preparation(s) for the specimen(s) and (ii) rendered or confirmed the diagnosis(es). . 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 Mesothelial reactive atypia and inflammation. Electronically signed by: ?Renetta Fraga DO Verified: ??03/12/2021 8:34 ?? Pathologist Performed at: ??-[facility] Dept. of Pathology, [place], [place] ADDITIONAL STUDIES Immunohistochemistry Studies: Formalin-fixed, paraffin-embedded [...] occupies 80% of the parenchymal volume. Sections/Processing: Rn Medication sections in 4 cassettes as follows: ?A1: ??Stapled parenchymal margin, en face ?A2-A4: ??Rn Medication parenchyma with bleb and adhesions ??erjg 03/12/2021 8:34 AM EDT [facility] LUNG STRUCTURE / Unknown 03/06/2021 10:56 AM EDT 03/06/2021 10:56 AM EDT Kendall Khalil MD PATHOLOGY/CYTOLOGY O DON Performing Organization Address City/[facility]/ZIP Co de Phone Number [facility] [place] [address] * Prepare thawed plasma (03/06/2021 7:20 AM EDT) Dispensed? Yes [facility] Blood specimen (specimen) 03/06/2021 7:20 AM EDT 03/06/2021 7:17 AM EDT Narrative Resulting Agency Comment Spec In Lab Kendall Khalil MD BLOOD BANK PRODUCT O RDERAJUAN Performing Organization Address City/[facility]/ZIP Co de Phone Number [facility] [place] [address] * (ABNORMAL) Prothrombin Time (03/06/2021 4:50 AM EDT) [facility] Prothrombin Time 20.6(H) 9.4 - 12.5 sec [facility] International Normalization Ratio 1.8 [facility] Comment: An INR <2.0 indicates [...] MD HEMATOLOGY ORDERABLE S Performing Organization Address [facility]/ZIP Co de Phone Number [facility] [place] [address] * SCAN DOC: LAB (03/06/2021 12:00 AM EDT) Narrative 03/06/2021 12:00 AM EDT Ordered by an unspecified provider. Scanning Provider MEDIA MGR SCAN EXT O RDR/RSLT * Type and Screen Validity (03/05/2021 6:10 PM EDT) [facility] T&S only valid at [facility] LABORATORY Comment:This Type and Screen result is only valid at the [facility] Blood specimen (specimen) 03/05/2021 6:10 PM EDT 03/05/2021 6:15 PM EDT Narrative Resulting Agency Comment Spec In Lab Kenneth Newby MD BLOOD BANK LAB ORD ERABLES [facility] [place] [address] * ABORH Recheck Status (03/05/2021 6:10 PM EDT) [facility] Recheck Order Order Placed [facility] ABORH Type Recheck Complete [facility] Blood specimen (specimen) 03/05/2021 6:10 PM EDT 03/05/2021 6:15 PM EDT Narrative Resulting Agency Comment Spec In Lab Kenneth Newby MD BLOOD BANK LAB ORD ERABLES [facility] [place] [address] * Antibody screen (03/05/2021 6:10 PM EDT) Pathologist [facility] Ab Screen Interp Negative [facility] Expires at [id number] on: 03/08/2021 [facility] Blood specimen (specimen) 03/05/2021 6:10 PM EDT 03/05/2021 6:15 PM EDT Narrative Resulting Agency Comment Spec In Lab Kenneth Newby MD BLOOD BANK LAB ORD ERABLES [facility] [place] [place] [address] * ABO/Rh Typing (03/05/2021 6:10 PM EDT) ABOR[facility] Type A Neg [facility] Blood specimen (specimen) 03/05/2021 6:10 PM EDT 03/05/2021 6:15 PM EDT Narrative Resulting Agency Comment Spec In Lab Kenneth Newby MD BLOOD BANK LAB ORD ERABLES [facility] [place] [address] * Differential, Automated (03/05/2021 4:21 PM EDT) Neutrophil % 68.0 % [facility] Neutrophil Absolute 4.90 1.70 - 6.10 x10(3)/mcL [facility] Lymph % 17.1 % [facility] Lymphocytes Abs 1.2 0.9 - 3.2 x10(3)/[facility] LABORATORY Monocyte % 9.4 % [facility] Monocyte Abs 0.7 0.3 - 0.9 x10(3)/[facility] LABORATORY Eos % 4.6 % [facility] Eosinophils Abs 0.3 0.0 - 0.4 x10(3)/[facility] LABORATORY Basophil % 0.8 % [facility] Baso Absolute 0.1 0.0 - 0.1 x10(3)/[facility] LABORATORY Immature Gran % 0.10 % [facility] Comment: Immature granulocytes(IG's)percentage and absolute count will include metamyelocytes, myelocytes, and promyelocytes. Blood smears from CBCs yielding IG's will be scanned manually for concordance. If this scan disagrees with the automated IG or if promyelocytes are noted, a manual differential will be performed. Immature Gran Absolute 0.01 0.00 - 0.04 x10(3)/[facility] LABORATORY Blood specimen (specimen) 03/05/2021 4:21 PM EDT 03/05/2021 4:37 PM EDT Narrative Resulting Agency Comment Spec In Lab Kota Leyva MD HEMATOLOGY ORDERABLE S [facility] [place] [address] * (ABNORMAL) Hemogram (03/05/2021 4:21 PM EDT) White Blood Cell 7.2 4.0 - 9.5 x10(3)/ L [facility] Red Blood Cell 4.60 4.58 - 5.54 x10(6)/ L [facility] Hemoglobin 13.7 13.7 - 16.5 gm/dL [facility] Hematocrit 40.4(L) 40.5 - 48.5 % [facility] Mean Cell Volume 87.8 82.9 - 93.1 fL [facility] Mean Cell Hemoglobin 29.8 27.5 - 32.1 pg [facility] Mean Cell Hemoglobin Concentration 33.9 32.0 - 35.7 gm/dL [facility] Platelet 197 145 - 357 x10(3)/mc L [facility] RDW Standard Deviation 44.7 36.0 - 45.0 fL [facility] RDW coefficient of variation 13.8 11.4 - 13.8 % [facility] Mean Platelet Volume 10.0 7.6 - 12.9 fL [facility] NRBC% auto 0.0 % [facility] NRBC Absolute 0.000 0.000 - 0.000 x10(3)/mc L [facility] Blood specimen (specimen) 03/05/2021 4:21 PM EDT 03/05/2021 4:37 PM EDT Narrative Resulting Agency Comment Spec In Lab Kota Leyva MD HEMATOLOGY ORDERABLE S [facility] [place] [address] * (ABNORMAL) Basic Metabolic Panel (non-fasting) (03/05/2021 4:21 PM EDT) Glucose 96 65 - 199 mg/dL [facility] Comment:Diabetes: >=200 mg/d L plus symptoms Blood Urea Nitrogen 23(H) 10 - 20 mg/dL [facility] Creatinine 0.90 0.80 - 1.50 mg/dL [facility] Sodium 138 135 - 145 mmol/L [facility] Potassium 4.5 3.5 - 5.0 mmol/L [facility] Comment: Please note: ??Patients with WBC >100,000 may have falsely elevated Potassium levels. ??For accurate Potassium quantification in these patients send serum separator tube (gold top) for subsequent determinations. ??Contact the Clinical Chemistry Laboratory if there are any questions. Chloride 101 98 - 107 mmol/L [facility] Carbon Dioxide 27 22 - 31 mmol/L [facility] Anion Gap 10 5 - 15 mmol/L [facility] Calcium 9.2 8.5 - 10.5 mg/dL [facility] Est Glomerular Filtration Rate 86 >=60 mL/min/1. 73 m?? [facility] Comment: This patient? s estimated [...] Lab Kenneth Newby MD CHEMISTRY ORDERABL ES [facility] [place] [address] * (ABNORMAL) APTT (03/05/2021 4:21 PM EDT) Partial Thromboplastin Time 44(H) 25 - 37 sec [facility] Comment: The PTT is NOT appropriate for heparin monitoring. Use the Anti-Xa level for heparin monitoring (HEP UFH) or LMWH monitoring (HEP LMW). A PTT less than 37 seconds generally indicates adequate hemostasis. Blood specimen (specimen) 03/05/2021 4:21 PM EDT 03/05/2021 4:37 PM EDT Narrative Resulting Agency Comment Spec In Lab Kenneth Newby MD HEMATOLOGY ORDERAB LES Performing Organization Address City/[facility] Co de Phone Number [facility] [place] [address] * (ABNORMAL) Prothrombin Time (03/05/2021 4:21 PM EDT) [facility] Prothrombin Time 24.3(H) 9.4 - 12.5 sec [facility] International Normalization Ratio 2.1 [facility] Comment: An INR <2.0 indicates [...] MD HEMATOLOGY ORDERAB LES Performing Organization Address [facility] Co de Phone Number [facility] [place] [address] * COVID-19 PCR (03/05/2021 3:52 PM EDT) [facility] SARS-CoV-2 RNA (Rapid) Not Detected Not Detected [facility] Comment: This result should be [...] using the Simplexa COVID-19 Direct Assay by [employer] as authorized by the FDA issued Emergency [...] Department of Pathology and Laboratory Medicine at [facility], certified under the Clinical Laboratory Improvement Amendments [...] fact sheets at the following FDA website: https://www.fda.gov/medical-devices/wjkpafikhpc-naqliza-1967-sqrpb-11-qihgyczmd- use-a fpchrwnftwcvs-kzdnnin-bugxegf/ghypl-vinmnggqkdi-udwc SARS-CoV-2 Source BAG LOADER Swab FRANCISCO JAVIER LEÓN [facility] Nasopharyngeal swab (specimen) 03/05/2021 3:52 PM EDT 03/05/2021 4:43 PM EDT Comment:Symptoms->Surveillan ce Narrative Resulting Agency Comment Spec In Lab Kenneth Newby MD MICROBIOLOGY - GEN ERAL ORDERABLES [facility] [place] [address] * EKG 12 Lead (03/05/2021 3:30 PM EDT) Ventricular rate 73 BPM MUSE SYSTEM Atrial Rate 73 BPM MUSE SYSTEM P-R Interval 178 ms MUSE SYSTEM QRS Duration 176 ms MUSE SYSTEM Q-T Interval 476 ms MUSE SYSTEM QTC Calculated (Bezet) 524 ms MUSE SYSTEM Calculated P [place] 30 degrees MUSE SYSTEM Calculated R [place] -103 degrees MUSE SYSTEM Calculated T [place] 62 degrees MUSE SYSTEM INTERPRETATION Atrial-sens ed ventricular -paced rhythm Abnormal ECG When compared with ECG of 11-SEP-2007 16:25, Ventricular -paced rhythm is now present Confirmed by MD Emelina, Jordana Blanca ([id number]) on 03/07/2021 3:16:02 PM MUSE SYSTEM 03/05/2021 3:30 PM EDT 03/07/2021 3:16 PM EDT Kenneth Newby MD ECG ORDERABLES MUSE SYSTEM documented in this encounter Visit Diagnoses Not on filedocumented in this encounter Admitting Diagnoses Diagnosis Recurrent [...] Given 03/11/2021 8:38 AM EDT 81 mg BUpivacaine (pf) (Marcaine) (2.5 mg/mL) 0.25% injection ONCE PRN, Starting on Mon03/09/21 at 0920, Until 03/13/21 at 1739, Intra-Operative (Intra-Procedure), Routine Given 03/09/2021 9:20 AM EDT 10 mLs 19- Surgical Site BUpivacaine liposome (PF) (Exparel) 1.3 % (13.3 mg/mL) injection for infiltration ONCE PRN, Starting on 03/06/21 at 0942, Until 03/13/21 at 1739, Intra-Operative (Intra-Procedure) Given 03/09/2021 10:25 AM EDT 20 mLs 19- Surgical Site Given 03/06/2021 11:25 AM EDT 7 mLs 1 9- Surgical Site Given 03/06/2021 9:42 AM EDT 13 mLs 19 - Surgical Site docusate sodium (Colace) capsule 100 mg 100 [...] Given 03/12/2021 10:13 PM EDT 82 mg polyethylene glycoL (Miralax) packet 17 g 17 g, Oral, DAILY, First dose on Mon03/07/21 at 0900, Until Discontinued, Routine Given 03/13/2021 10:02 AM EDT 17 g Given 03/12/2021 9:46 AM EDT 17 g Given 03/11/2021 8:37 AM EDT 17 g senna (Senokot) tablet 17.2 mg 17.2 mg, Oral, EVERY EVENING, First dose on 03/06/21 at 1700, Until Discontinued, Routine Given 03/12/2021 [...] Given 03/12/2021 9:47 AM EDT 5 mLs tamsulosin (Flomax) capsule 0.4 mg 0.4 mg, [...] written, the dose is held or discontinued. documented in this encounter Active and Recently [...] ordered pain medications are indicated. , Routine 05 (Given - Provider: Lexie Cordova)1252 (Given - Provider: Jodie Mojica, DAVIN)2131 (Given - Provider: Avril East, DAVIN) 0536 (Given - Provider: Avril East, DAVIN)1359 (Given - Provider: Shauna Morillo RN)2213 (Given - Provider: Avril East, DAVIN) 0420 (Given - Provider: Avril East RN)1425 (Given - Provider: Dominique Garcia, DAVIN) aspirin EC tablet 81 mg 81 mg, Oral, DAILY, First dose on Mon03/05/21 at 1636, Until Discontinued, Routine 0838 (Given - Provider: Jodie Mojica RN) 0946 (Given - Provider: Shauan Morillo RN) 1001 (Given - Provider: Dominique Garcia, DAVIN) docusate sodium (Colace) capsule 100 mg 100 mg, Oral, 3 TIMES DAILY, First dose on Mon03/05/21 at 2100, Until Discontinued, Routine 0838 (Given - Provider: Jodie Mojica RN)1433 (Given - Provider: Jodie Mojica, DAVIN)2131 (Given - Provider: Avril East RN) 0947 (Given - Provider: Shauna Morillo RN)1500 (Not Given - Provider: Shauna Morillo RN - Reason: Patient/family refused)2214 (Given - Provider: Avril East RN) 1002 (Given - Provider: Dominique Garcia RN)1500 (Not Given - Provider: Dominique Garcia RN [...] East RN) 1121 (Given - Provider: Dominique Garcia RN) heparin (porcine) (5,000 units/1 mL) subcutaneous injection 5,000 Units (CANCELED) 5,000 Units, Subcutaneous, EVERY 8 HOURS SCHEDULED, First dose on Mon03/09/21 at 1400, Until Discontinued, Routine 0530 (Given - Provider: Lexie Cordova)1433 (Given - Provider: Jodie Mojica, DAVIN)2131 (Given - Provider: Avril East RN) 0536 (Given - Provider: Avril East RN)1359 (Given - Provider: Shauna Morillo RN) polyethylene glycoL (Miralax) packet 17 g 17 g, Oral, DAILY, First dose on 03/07/21 at 0900, Until Discontinued, Routine 0837 (Given - Provider: Jodie Mojica RN) 0946 (Given - Provider: Shauna Morillo RN) 1002 (Given - Provider: Dominique Garcia, DAVIN) senna (Senokot) tablet 17.2 mg 17.2 mg, [...] RN)2131 (Given - Provider: Avril East RN) 0947 (Given - Provider: Shauna Morillo RN)2213 (Given - Provider: Avril East RN) 0900 (Not Given - Provider: Dominique Garcia RN - Reason: See comment)1002 (Given - Provider: Dominique Garcia RN) tamsulosin (Flomax) capsule 0.4 mg 0.4 mg, Oral, DAILY, First dose on 03/07/21 at 0900, Until Discontinued, DO NOT CRUSH OR OPEN, Routine 0838 (Given - Provider: Jodie Mojica RN) 0947 (Given - Provider: Shauna Morillo RN) 1001 (Given - Provider: Dominique Garcia, DAVIN) warfarin (COUMADIN) daily order reminder Oral, EVERY [...] 5 mg, Oral, ONCE, 1 dose, On 03/12/21 at 1700, DO NOT SPLIT, CRUSH OR OPEN, Routine 1711 (Given - Provider: Shauna Morillo RN) PRN Medication Order 03/11/2021 03/12/2021 03/13/2021 lidocaine (Xylocaine) 1% (10 mg/mL) injection 3 mg 3 mg (0.3 mL), Subcutaneous, ONCE PRN, 1 dose, Starting on 03/05/21 at 1759, Until 03/13/21 at 1739, for discomfort with PIV insertion, Recovery (Recovery-Hospital Unit), Routine sodium chloride 0.9 % (flush) flush 5-20 mL 5-20 mL, Intravenous, EVERY 1 MIN PRN, Starting on 03/05/21 at 1759, Until 03/13/21 at 1739, flush, [...] Routine documented in this encounter Care Teams Digital Associate Relationship Specialty Start Date End Date Linda Mccray MD [address] [place] [address] PCP - General Family Medicine 10/20/16 documented as of this encounter
--- OUTSIDE RECORDS SUMMARY | 2024-07-17 21:51 | XMS_ITS | Encounter Summary ---
Author Organization [facility] [place] [address] Care Team Providers Care Wireless Engineer Name Role Phone Linda Mccray MD Primary Care Provider [phone] Encounter Details Date Type Department Care Team ([facility] st Contact Info) Description 10/24/2017 2:45 PM EST Office Visit Pulmonology at [facility] [place] [address] Martín Davis MD [facility] [place] [address] DELVALLE (dyspnea on exertion) Social History Tobacco Use Types Packs/Day Years [...] as of this encounter Progress Notes * Martín Davis MD - 10/24/2017 2:45 PM EST Images from the original note were not included. PULMONOLOGY PROGRESS NOTE SECTION OF PULMONARY/CRITICAL CARE MEDICINE Patient Name: London Neri : 1950 Medical Record: [id number] Date of Service: 10/25/2017 Hospital Day #: Location: Room/bed info not found Requesting Provider: No att. 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 He has a history of smoking. His CT of chest did showed bollous lung disease. Early COPD was part of the differentials, however his spirometry and lung volumes were normal, his DLCO was reduced out of proportion to the rest of his PFT. As a result the different ial of pulmonary hypertension possibly group 2 was also entertained. His EF initially wass 45-50% with hypokinesis of apical area. The plan was to get a repeat echo, and a 6 MWT. Today he is here for follow up. He had a 6 MWT which was normal without any evidence of desaturation after walking 456 meters. He has his echo at [facility] which an improved EF which is now 50-55% compared to 10/17/2016. He has mechanical aortic and mitral valves. The Lt atrium was severely dilated, the Rt ventricle and Rt atrium were moderately dilated. Pulmonary systolic pressure was 30-40 mmHg. The plan was to follow up with an exercise study if echo was unremarkable. Subjective: He feels well today. He states his dyspnea has somewhat improved. He is not interested at this point to do an exercise study. He has no respiratory symptoms. Review of Systems: A total of 10 systems were reviewed and were negative other than as listed below: Objective: Last value Range last 24 hrs Temperature Temp: --Afebrile Heart Rate Heart Rate: --74 Blood Pressure BP: ()/() 110/64 Respiratory Rate Resp: --18 SpO2 SpO2: --98% Admit Weight General: Comfortable, in no disress Pulmonary/Chest: CTA B/L no wheeze or crackles Cardiovascular: RRR Abdomen: Normal sounds, ND, NT Extremities: No edema Psychiatric: Alert. Cooperative. Neurologic: non focal Diagnostics: Echo and 6 MWT Assessment/Recommendations: 67 yo man with mild dyspnea on exertion. His EF on most recent echo has improved. No real evidence of pulmonary HTN, no evidence of interstitial lung disease on CT of chest. With his history of smoking it is possible that it could be early COPD even though I can not fully explain it based on his spirometry. He is not interested in an cardiopulmonary exercise testing. Will watch him, repeat his spirometry and DLCO in one year. Patient was seen for a total of 25 minutes, with 20 minutes of that time spent in discussion with the patient regarding his current clinical condition, test results, and further management. Martín Davis MD Pulmonary and Critical Care #[id number] documented in this encounter Plan of Treatment Not on file documented as of this encounter Visit Diagnoses Diagnosis DELVALLE (dyspnea on exertion) Other dyspnea and respiratory abnormality documented in this encounter Care Teams Wireless Engineer Relationship Specialty Start Date End Date Linda Mccray MD [address] [place] [address] PCP - General Family Medicine 10/20/16 documented as of this encounter
--- OUTSIDE RECORDS SUMMARY | 2024-07-17 21:51 | XMS_ITS | Encounter Summary ---
Author Organization [facility] Address [facility] [place] [address] Care Team Providers Care Plastic Card Grader Cardroom Name Role Phone Linda Mccray MD Primary Care Provider [phone] Encounter Details Date Type Department Care Team (Late st Contact Info) Description 07/28/2020 Tele[place] [id number] Ladarius Cummings MD [facility] [place] [address] Social History Tobacco Use Types Packs/Day Years [...] encounter Miscellaneous Notes * Telephone Encounter - Ladarius Cummings MD - 07/28/2020 7:13 AM EDTSummary: Telephone Note Discussed with Mr. Neri. He was at home this morning when he had an event where he was feeling sweaty and off. He notes no chest pain. He reports he was still not feeling himself. He was wondering if this was his pacemaker as his last time he was interrogated he was noted to have <30 days leftof battery life. He also had prior valve replacements and was wondering if something happened with this. Plan: - He will send a remote transmission and then present to the [facility] ED. Ladarius Cummings MD 7:24 AM 07/28/2020 documented in this encounter Plan of Treatment Not on file documented as of this encounter Visit Diagnoses Not on filedocumented in this encounter Care Teams Plastic Card Grader Cardroom Relationship Specialty Start Date End Date Linda Mccray MD [address] [place] [address] PCP - General Family Medicine 10/20/16 documented as of this encounter
--- OUTSIDE RECORDS SUMMARY | 2024-07-17 21:51 | XMS_ITS | Encounter Summary ---
Author Organization [facility] Address [facility] [place] [address] Care Team Providers Care Media Center Assistant Name Role Phone Linda Mccray MD Primary Care Provider [phone] Encounter Details Date Type Department Care Team ([facility] st Contact Info) Description 08/17/2020 Notes Only Cardiology at [address] [phone] Sarahi Bundy PA [facility] [place] [address] Social History Tobacco Use Types Packs/Day Years [...] as of this encounter Progress Notes * Sarahi Bundy PA - 08/17/2020 7:33 AM EDT Outpatient remote interrogation report: See full report as a linked pdf document Date of transmission: 08/17/20 Device [employer] assistant manager: SAMY COLUNGA Device type: dual-chamber pacemaker Presenting rhythm: /CLINICAL TEAM LEAD AP 9% CLINICAL TEAM LEAD 99.9% (MVP Off) Battery: 12 years Alerts: Alert for cumulative RV Pacing >40% for 7 days Episodes: 0 tachy 0 AF Stable lead trends. 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 Echo in Jun 2020 with LVEF 60%. Underwent generator change on 07/31/20 for battery depletion. Consider disabling alert for known RV pacingat next in-office visit. [place] Martinez 08/17/2020 7:33 AM documented in this encounter Plan of Treatment Not on file documented as of this encounter Visit Diagnoses Not on filedocumented in this encounter Care Teams Media Center Assistant Relationship Specialty Start Date End Date Linda Mccray MD [address] [place] [address] PCP - General Family Medicine 10/20/16 documented as of this encounter
--- OUTSIDE RECORDS SUMMARY | 2024-07-17 21:51 | XMS_ITS | Encounter Summary ---
Author Organization Formerly [facility] [place] [address] Care Team Providers Care Hide Worker Name Role Phone Linda Mccray MD Primary Care Provider Reason for Visit * Auth/Cert Specialty Diagnoses / Procedures Referred By Lucas t Referred To Contact Diagnoses Pacemaker complications, initial encounter Dizziness Referral ID Status Reason Start Date Expiration Date Visits Re quested Visits Authorized [id number] 1 1 Encounter Details Date Type Department Care Team ([facility] st Contact Info) Description 07/31/2020 10:33 AM EDT - 07/31/2020 11:33 AM EDT Surgery [place] [id number] Jordana Tarango MD [facility] [place] [address] ELECTROPHYSIOLOGY PROCEDURE Social History Tobacco Use Types Packs/Day Years [...] Sign Reading Time Taken Comments Blood Pressure 125/61 07/31/2020 11:26 AM EDT Pulse 60 07/31/2020 11:26 AM EDT Temperature 36.6 ??C (97.9 ??F) 07/31/2020 1 1:26 AM EDT Respiratory Rate 19 07/31/2020 11:2 6 AM EDT Oxygen Saturation 96% 07/31/2020 11: 26 AM EDT Inhaled Oxygen Concentration - - Weight 76.2 kg (167 lb 15.9 oz) 07/31/2020 6:29 AM EDT Height 185.4 cm (6' 1) 07/30/2020 3:00 PM EDT Body Mass Index 22.16 07/30/2020 3:00 PM EDT documented in this encounter Discharge Summaries * Tan Pantoja MD - 07/31/2020 11:12 AM EDT Inpatient - Discharge Summary Patient Name: London Neri Patient Age: 70 y.o. Birthdate: 1950 Admit date: 07/30/2020 Discharge date and time: 07/31/20 Attending Physician: Jordana Tarango MD Discharge Diagnoses (Hospital Problems) and Secondary Diagnoses (Chronic Problems): Active Hospital Problems Diagnosis ??? Pacemaker complications, initial encounter ??? Near syncope Resolved Hospital Problems No resolved problems to display. Active Non-Hospital Problems Diagnosis ??? Pacemaker - dual lead Medtronic ??? Pacemaker battery depletion Added automatically from request for surgery [id number] ??? Chronic bullous emphysema ??? Clostridium difficile colitis ??? Encounter for screening colonoscopy Operations/Major Procedures: Operations: Procedure(s): ELECTROPHYSIOLOGY PROCEDURE Other Major Procedures: none History of Presentation: London Neri is a 70 y.o. male with a history of HTN, mechanical aortic and mitral valve since 1998, on chronic Coumadin with INR goal 2.5-3.5, high-grade AV block, s/p dual-chamber permanent pacemaker implantation in 2007, hx refractory C. Difficile following flagyl with resolution on vancomycin, hx multiple traumatic pneumothoraces requiring chest tube placement, who presented to [facility] via [facility] following symptomatic bradycardia that occurred in setting of device complication. ?? His pacemaker generator reached end replacement interval (SAMEERA) on 07/23/2020 which is the same time he reported feeling unwell. According to him, he awoke from sleep around 2 AM on Monday07/28/2020 and for some reason I couldn't go back to sleep. He went to his chair to read and sometime after developed new, acute-onset diaphoresis, nausea, lightheadedness/dizziness. He felt that he might looseconsciousness if he attempted to do anything exertional. He went back to sleep and the following morning continued to have same exertional intolerance with symptoms relieved at rest and laying down. He called device clinic on 07/28/2020 and was informed that his remote download showed his battery had hit SAMEERA and his device switched to VVI 65 pacing from AAI <==> DDD 60 and he was likely experiencing AV dysynchrony. He was scheduled for a generator change on 08/04/2020. However, he continued to have symptoms through Monday and into Monday morning before he presented to [facility] with near-syncope. Since being admitted to [facility], he has not had any recurrence of symptoms but also admits he h as not tried to exert himself. ?? At [facility], patient had supratherapeutic INR 3.6 on admission 07/29/2020 and Coumdin was held. He was recommended transfer to [facility] for treatment of near-syncope and pacemaker complication. His INR on dayof transfer was 2.8. A Medtronic device interrogation on 07/29/2020 showed normal functioning pacemaker reverted to VVI backup pacing in setting of SAMEERA and predominant V-paced burden (95.5%) since then. He had a negative COVID-19 test on 07/29/2020. Hospital Course: -overnight stay -Successful GENERATOR CHANGE (MEDTRONIC MODEL) -INR 2.1 (goal 2.5-3.5) for termination clerk outpatient care. Important Studies and Lab Data: Labs: [facility] Lab Results Component Value Date INR 2.1 07/31/2020 PT 24.0 (H) 07/31/2020 Studies: n/a Pending Studies and Lab Data: The patient will need the following test completed on: 07/29/2020 1. Electrophysiology Procedure Diagnosis: Authorizing Provider: Jordana Tarango MD Discharge Conditions/Prognosis: stable Discharge to: home Discharge Medications: Your Medications Continued medications, unchanged Dose Details aspirin EC 81 mg Tbec TAKE ONE TABLET BY MOUTH EVERY DAY Refills: 3 Coumadin 10 mg Tab Generic drug: warfarin Refills: 0 STOPPED Medications bisacodyl EC 5 mg Tbec Commonly known as: Dulcolax chlorhexidine 4 % Liqd Commonly known as: HIBICLENS cyclobenzaprine 10 mg Tab Commonly known as: Flexeril lisinopriL 5 mg Tab Commonly known as: Prinivil;Zestril multivitamin Tab Commonly known as: THERAGRAN oxyCODONE 5 mg Tab Commonly known as: Roxicodone Stool Softener 100 mg Cap Generic drug: docusate sodium Vicodin 5-500 mg Tab Generic drug: HYDROcodone-acetaminophen Updated Allergies/ADRs: No Known Allergies Follow-up Recommendations for Providers: - He was instructed to continue coumadin uninterrupted and notify his anticoagulation clinic to repeat INR check within 2-3 days. Instructions Given to Patient at Discharge: Patient Instructions FINAL ICD/PACEMAKER RECOMMENDATIONS: 1. Standard post implant discharge instructions (see below): 2. Medications . ?? PLEASE NOTE - RESUME YOUR COUMADIN TONIGHT SCHEDULED. Call your COUMADIN CLINIC TO HAVE THEM CHECK AN INR WITHIN 2-3 days ?? RESUME ALL OTHER REGULAR HOME MEDICATIONS HAVE BEEN PREVIOUSLY PRESCRIBED TO YOU BY YOUR OUTPATIENT PROVIDERS. ?? You may use ice packs over the incision. Make sure to use a cloth baler (such as a towel) in between the ice pack and the bare skin and that it stays DRY. 3. Follow up in pacemaker clinic in 10-14 days for a wound check and device check. DEVICE CLINIC 1. You will be scheduled for a ~10 day wound check in the Device Clinic for: ?? Incision check ?? Device interrogation ?? Review of remote follow up and set up of home monitor 2. Your device will be checked every 3 months (either in clinic or by remote). 3. Prior to discharge, you will be given a home monitor so that your device can send clinical data to the device clinic nurses. If you are unable to set this up at home prior to your wound check, we will review this at the time of your appointment NOTE: The device data we review from your home monitor is comparable to an in- office appointment. Therefore, your insurance company will be billed for review of your data. Depending on your coverage,you may be responsible for a portion of his charge. We recommend that you contact your insurance carrier for more details about your particular coverage. WOUND CARE FOR YOUR INCISION: Your wound will usually heal in 7-10 days. Your wound may be tender, it may appear slightly red andbumpy and there may be dry, crusty scabbing. These are all normal. How to Care for your Incision: - Either you or someone with you needs to look at the wound every day. - Report any signs of infection immediately: ?? Drainage ?? Swelling ?? Warmth ?? Increased pain ?? Fevers/chills - Call if you are concerned about infection or the edges of the wound separate - A needle should not be put into the wound area because this can damage the device. ?? You may need to remind your healthcare provider of this concern - There are sutures inside the incision that will dissolve on their own - Do not scratch or rub the wound - Do not apply creams, lotions, or ointments to the incision until is completely healed. - You may cover the wound with gauze if it rubs on clothing and causes discomfort - Protect your wound from injury until the skin has had sufficient time to heal - Do not shower for 48 hours after implant - While in the shower, turn your back to the water nozzle so you avoid direct water pressure on thewound. Continue this for 7-10 days. - After 48 hours, you may wash the wound gently with soap and water (unless there is DermaBond on the incision - see below) - Do not submerge the incision (bathtubs, hot tubs, or swimming) for at least two weeks Your incision has been covered with a Mepilex dressing. - This dressing will stay on for 7 days. - If the edges pull up substantially or fluid gets underneath the Mepilex dressing, remove it sooner - Once removed, you may notice some grayish discoloration. This is normal. Your incision has been closed with: Dermabond - This is a sterile, liquid skin adhesive that holds wound edges together. The film will usually remain in place for a few weeks, then naturally sloughs (falls) off your skin. - Do not scratch, rub, or pick at the Dermabond adhesive film. This may loosen the film before yourwound is healed. - Protect the wound from prolonged exposure to sunlight or tanning lamps while the film is in place - You may occasionally and briefly wet your wound in the shower or bath. Do not soak or scrub your wound, do not swim, and avoid periods of heavy perspiration until the Dermabond adhesive has naturally fallen off. After showering or bathing, gently blot your wound dry with a soft towel Your incision has been closed with: SteriStrips - These are thin adhesive strips placed over your incision to help it heal. - Leave them in place until they fall off (approximately 10-14 days) - Do not scratch, rub, or pick at them. This may pull at your incision before it is completely healed, which can increase the risk of infection. CALL IMMEDIATELY: If you develop chest pain, shortness of breath, bleeding, discharge from the incision, opening of the incision and/or fever/temperature >100 degrees F. The office scheduling phone number is [phone]. ARM MOVEMENT RESTRICTIONS POST-IMPLANT - Do not raise your elbow on the operated side above the shoulder for 1 WEEK ONLY to allow incisionto heal. If you have any questions or concerns about this product, please call the office at [phone]. General Instructions None Discharge References/Attachments: Discharge References/Attachments None Inpatient Provider Contact Information: EP CVYOA - [id number] Electronically Signed By: Tan Pantoja MD 07/31/2020 documented in this encounter Discharge Instructions * Patient Instructions* Tan Pantoja MD - 07/31/2020 11:05 AM EDT FINAL ICD/PACEMAKER RECOMMENDATIONS: 1. Standard post implant discharge instructions (see below): 2. Medications . ?? PLEASE NOTE - RESUME YOUR COUMADIN TONIGHT SCHEDULED. Call your COUMADIN CLINIC TO HAVE THEM CHECK AN INR WITHIN 2-3 days ?? RESUME ALL OTHER REGULAR HOME MEDICATIONS HAVE BEEN PREVIOUSLY PRESCRIBED TO YOU BY YOUR OUTPATIENT PROVIDERS. ?? You may use ice packs over the incision. Make sure to use a cloth baler (such as a towel) in between the ice pack and the bare skin and that it stays DRY. 3. Follow up in pacemaker clinic in 10-14 days for a wound check and device check. DEVICE CLINIC 1. You will be scheduled for a ~10 day wound check in the Device Clinic for: ?? Incision check ?? Device interrogation ?? Review of remote follow up and set up of home monitor 2. Your device will be checked every 3 months (either in clinic or by remote). 3. Prior to discharge, you will be given a home monitor so that your device can send clinical data to the device clinic nurses. If you are unable to set this up at home prior to your wound check, we will review this at the time of your appointment NOTE: The device data we review from your home monitor is comparable to an in- office appointment. Therefore, your insurance company will be billed for review of your data. Depending on your coverage,you may be responsible for a portion of his charge. We recommend that you contact your insurance carrier for more details about your particular coverage. WOUND CARE FOR YOUR INCISION: Your wound will usually heal in 7-10 days. Your wound may be tender, it may appear slightly red andbumpy and there may be dry, crusty scabbing. These are all normal. How to Care for your Incision: - Either you or someone with you needs to look at the wound every day. - Report any signs of infection immediately: ?? Drainage ?? Swelling ?? Warmth ?? Increased pain ?? Fevers/chills - Call if you are concerned about infection or the edges of the wound separate - A needle should not be put into the wound area because this can damage the device. ?? You may need to remind your healthcare provider of this concern - There are sutures inside the incision that will dissolve on their own - Do not scratch or rub the wound - Do not apply creams, lotions, or ointments to the incision until is completely healed. - You may cover the wound with gauze if it rubs on clothing and causes discomfort - Protect your wound from injury until the skin has had sufficient time to heal - Do not shower for 48 hours after implant - While in the shower, turn your back to the water nozzle so you avoid direct water pressure on thewound. Continue this for 7-10 days. - After 48 hours, you may wash the wound gently with soap and water (unless there is DermaBond on the incision - see below) - Do not submerge the incision (bathtubs, hot tubs, or swimming) for at least two weeks Your incision has been covered with a Mepilex dressing. - This dressing will stay on for 7 days. - If the edges pull up substantially or fluid gets underneath the Mepilex dressing, remove it sooner - Once removed, you may notice some grayish discoloration. This is normal. Your incision has been closed with: Dermabond - This is a sterile, liquid skin adhesive that holds wound edges together. The film will usually remain in place for a few weeks, then naturally sloughs (falls) off your skin. - Do not scratch, rub, or pick at the Dermabond adhesive film. This may loosen the film before yourwound is healed. - Protect the wound from prolonged exposure to sunlight or tanning lamps while the film is in place - You may occasionally and briefly wet your wound in the shower or bath. Do not soak or scrub your wound, do not swim, and avoid periods of heavy perspiration until the Dermabond adhesive has naturally fallen off. After showering or bathing, gently blot your wound dry with a soft towel Your incision has been closed with: SteriStrips - These are thin adhesive strips placed over your incision to help it heal. - Leave them in place until they fall off (approximately 10-14 days) - Do not scratch, rub, or pick at them. This may pull at your incision before it is completely healed, which can increase the risk of infection. CALL IMMEDIATELY: If you develop chest pain, shortness of breath, bleeding, discharge from the incision, opening of the incision and/or fever/temperature >100 degrees F. The office scheduling phone number is [phone]. ARM MOVEMENT RESTRICTIONS POST-IMPLANT - Do not raise your elbow on the operated side above the shoulder for 1 WEEK ONLY to allow incisionto heal. If you have any questions or concerns about this product, please call the office at [phone]. documented in this encounter Medications at Time of Discharge Medication Sig Dispensed Refills Start Date End Date dextroamphetamine-ampheta mine (Adderall) 10 mg Tablet Take 10 mg by mouth Daily. 02/03/2020 08/24/2021 aspirin 81 mg Tablet, Delayed Release (E.C.) TAKE ONE TABLET BY MOUTH EVERY DAY 3 10/13/2016 08/08/2023 warfarin (COUMADIN) 10 mg tablet 09/11/2007 12/16/2021 documented as of this encounter Progress Notes * El Martino RN - 07/31/2020 12:39 PM EDT Discharge orders written, patient understands instructions and follow up visits, patient discharge to home with . documented in this encounter H&P Notes * Jordana Tarango MD - 07/30/2020 4:20 PM EDT Electrophysiology History and Physical Admit Date: 07/30/2020 Admitting Attending: Jordana Tarango MD Active Problem List: Patient Active Problem List Diagnosis ??? Pacemaker complications, initial encounter ??? Pacemaker - dual lead Medtronic ??? Pacemaker battery depletion Overview Note: Added automatically from request for surgery [id number] ??? Chronic bullous emphysema ??? Clostridium difficile colitis ??? Encounter for screening colonoscopy History of Present Illness: London Neri is a 70 y.o. male with a history of HTN, mechanical aortic and mitral valve since 1998, on chronic Coumadin with INR goal 2.5-3.5, high-grade AV block, s/p dual-chamber permanent pacemaker implantation in 2007, hx refractory C. Difficile following flagyl with resolution on vancomycin, hx multiple traumatic pneumothoraces requiring chest tube placement, who presented to [facility] via [facility] following symptomatic bradycardia that occurred in setting of device complication. His pacemaker generator reached end replacement interval (SAMEERA) on 07/23/2020 which is the same time he reported feeling unwell. According to him, he awoke from sleep around 2 AM on Monday07/28/2020 and for some reason I couldn't go back to sleep. He went to his chair to read and sometime after developed new, acute-onset diaphoresis, nausea, lightheadedness/dizziness. He felt that he might looseconsciousness if he attempted to do anything exertional. He went back to sleep and the following morning continued to have same exertional intolerance with symptoms relieved at rest and laying down. He called device clinic on 07/28/2020 and was informed that his remote download showed his battery had hit SAMEERA and his device switched to VVI 65 pacing from AAI <==> DDD 60 and he was likely experiencing AV dysynchrony. He was scheduled for a generator change on 08/04/2020. However, he continued to have symptoms through Monday and into Monday morning before he presented to [facility] with near-syncope. Since being admitted to [facility], he has not had any recurrence of symptoms but also admits he h as not tried to exert himself. At [facility], patient had supratherapeutic INR 3.6 on admission 07/29/2020 and Coumdin was held. He was recommended transfer to [facility] for treatment of near-syncope and pacemaker complication. His INR on dayof transfer was 2.8. A [employer] device interrogation on 07/29/2020 showed normal functioning pacemaker reverted to VVI backup pacing in setting of SAMEERA and predominant V-paced burden (95.5%) since then. He had a negative COVID-19 test on 07/29/2020. A 12-lead EKG at [facility] on 07/29/2020 showed v-paced rhythm 65 bpm with no further analysis. Last documented echo 07/13/2020 showed normal LV systolic function EF 60% without segmental wall motion abnormalities, normal RV systolic function, normal biatrial size, mechanical aortic valve with well-seatedprosthesis without periprosthetic regurgitation, also mechanical mitral prosthetic valve also well-seated without any periprosthetic regurgitation, and no significant changes overall compared to prior echocardiography from October 17, 2017. Patient is and lives with his in [place], [place]. He is a practicing [employer]. He has no children. 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 He stopped smoking remotely. He has a glass of wine nearly daily. No history of sleep apnea or complications with anesthesia. Review of Systems: Constitutional: - fatigue, - fever, - chills Respiratory: - shortness of breath, - cough, - apnea, - wheezing Cardiovascular: +diaphoresis; - chest pain, - palpitations, - unusual rates Gastrointestinal: + nausea, - vomiting, - abdominal pain, - diarrhea Neurological: + lightheadedness/dizziness, - syncope, - weakness Psychiatric: - anxious PMH: Past Medical History: Diagnosis Date ??? C. difficile colitis ??? COPD (chronic obstructive pulmonary disease) ??? Emphysema of lung ??? Hemorrhoid ??? Pneumothorax on left Pertinent Medications: No current [facility]-ordered facility-administered medications on file. No current [facility]-ordered outpatient medications on file. Current Discharge Medication List CONTINUE these medications which have NOT CHANGED Details aspirin 81 mg Tablet, Delayed Release (E.C.) TAKE ONE TABLET BY MOUTH EVERY DAY Refills: 3 warfarin (COUMADIN) 10 mg tablet multivitamin (THERAGRAN) tablet STOP taking these medications chlorhexidine (HIBICLENS) 4 % Liquid Comments: Reason for Stopping: oxyCODONE (ROXICODONE) 5 mg Tablet Comments: Reason for Stopping: lisinopril (PRINIVIL;ZESTRIL) 5 mg Tablet Comments: Reason for Stopping: cyclobenzaprine (FLEXERIL) 10 mg Tablet Comments: Reason for Stopping: STOOL SOFTENER 100 mg Capsule Comments: Reason for Stopping: bisacodyl (DULCOLAX) 5 mg Tablet, Delayed Release (E.C.) Comments: Reason for Stopping: hydroCODone-acetaminophen (VICODIN) 5-500 mg per tablet Comments: Reason for Stopping: Family History: No family history on file. Social History: Social History Socioeconomic History ??? Marital status: Spouse name: Not on file ??? Number of children: Not on file ??? Years of education: Not on file ??? Highest education level: Not on file Occupational History ??? 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 Financial resource strain: Not on file ??? Food insecurity Worry: Not on file Inability: Not on file ??? Transportation needs Medical: Not on file Non-medical: Not on file Tobacco Use ??? Smoking status: Former Smoker Packs/day: 1.00 Years: 35.00 Pack years: 35.00 ??? Smokeless tobacco: Former User Quit date: 1982 Substance and Sexual Activity ??? Alcohol use: Yes Alcohol/week: 5.0 standard drinks Types: 5 Glasses of wine per week ??? Drug use: No ??? Sexual activity: Not on file Lifestyle ??? Physical activity Days per week: Not on file Minutes per session: Not on file ??? Stress: Not on file Relationships ??? Social connections Talks on phone: Not on file Gets together: Not on file Attends religion service: Not on file Active member of club or organization: Not on file Attends meetings of clubs or organizations: Not on file Relationship status: Not on file ??? Intimate partner violence Fear of current or ex partner: Not on file Emotionally abused: Not on file Physically abused: Not on file Forced sexual activity: Not on file Other Topics Concern ??? Not on file Social History Narrative ??? Not on file Physical Exam: Vital signs: Vitals: 07/30/20 1453 07/30/20 1500 BP: 132/89 BP Location (NBP): Left arm Pulse: 65 Resp: 16 Temp: 36.4 ??C (97.5 ??F) TempSrc: Oral SpO2: 100% Weight: 77.7 kg (171 lb 4.8 oz) Height: 185.4 cm (6' 1) General- No acute distress, laying comfortably in bed HEENT- Head atraumatic, normocephalic Skin- Warm and dry Neck- No JVD noted Cardiovascular- S1/S2 regular rate and rhythm. No murmur, rub or gallop Lungs- Clear to auscultation bilaterally Extremities- Pulses equal bilaterally. No edema noted Neuro- A&Ox3 Labs: No results for input(s): INR in the last 168 hours. Assessment: 1. Symptomatic bradycardia resulting from pacemaker at SAMEERA and reverting to dyssynchronous pacing 2. Loss of AV-synchrony in setting of pacemaker reversion to ventricular paced mode secondary to triggered elective replacement interval 3. Preserved LVEF Plan: - Admit to EP service on ICCU on continuous cardiac telemetry. Pacemaker status otherwise functioning normal and patient is hemodynamically stable at rest. Pacemaker leads functioning normally. - Check INR. Start IV Heparin if INR drops below 2.5 in the setting of mechanical mitral valve. Will need to hold IV Heparin approximately 4 hours prior to pacemaker generator change. - Continue baby aspirin - NPO at midnight for pacemaker battery/generator change in the AM with IV sedation. [place] Cain 07/30/2020 4:21 PM Pager: [phone] Attending: Jordana Tarango MD Service Pager: [phone] Staff addendum: I have seen and evaluated the patient, and reviewed the available medical records. I agree with the findings, physical examination, and assessment of Lc Trenkle as detailed above. We will start heparin out of an abundance of caution in this patient with mechanical mitral valve and the low risk of bleeding with a generator change procedure. Jordana Tarango MD 07/30/2020 8:16 PM documented in this encounter Miscellaneous Notes * Plan of Care - Silke Aguilera RN - 07/31/2020 3:52 AM EDT Problem: Patient Care Overview Goal: Plan of Care Review Outcome: Ongoing (Interventions Implemented as Appropriate) 07/30/20 1947 07/31/20 0350 Plan of Care Review Progress -- progress toward functional goals as expected Coping/Psychosocial Plan Of Care Reviewed With patient -- OUTCOME EVALUATION NOTE: OUTCOME SUMMARY: VS as charted, eyes closed between care. Heparin gtt initiated and titrated per orders. I/O as charted. See tele note for details overnight, remains paced. NPO for generator exchange 07/31. Will CTM and notify team of changes. PLAN MOVING FORWARD: NPO for pacemaker generator exchange today Heparin gtt INDIVIDUALIZED FALL PREVENTION INTERVENTIONS: Patient-specific fall risk factors per assessment: [current deficits]: Heparin gtt Assistance [level of assistance required for transfers and ambulation]: Independent Supervision [direct monitoring required during toileting and ADLs]: Independent/SBA while on heparin gtt Surveillance [continuous indirect monitoring]: Purposeful rounding Patient-specific fall prevention interventions for sensory deficits provided, if applicable: [X] N/A CPG GOAL OUTCOME EVALUATION: documented in this encounter Plan of Treatment Not on file documented as of this encounter Procedures Procedure Name Priority Date/Time Associated Diagnosis Comments ELECTROPHYSIOLOGY PROCEDURE Routine 07/31/2020 10:55 AM EDT HC UNFRACTIONATED HEPARIN (HEP UFH) STAT 07/31/2020 3:34 AM EDT HEMOGRAM Routine 07/31/2020 3:34 AM EDT DIFFERENTIAL, AUTOMATED Routine 07/31/20 3:34 AM EDT HC PROTHROMBIN TIME Routine 07/31/2020 3 :34 AM EDT HC VENIPUNCTURE Routine 07/31/2020 3:34 AM EDT HEPARIN (UNFRACTIONATED) LEVEL STAT 07/30/2020 5:43 PM EDT HC VENIPUNCTURE STAT 07/30/2020 5:43 PM EDT HEMOGRAM STAT 07/30/2020 5:43 PM EDT DIFFERENTIAL, AUTOMATED STAT 07/30/20 20 5:43 PM EDT HC PROTHROMBIN TIME STAT 07/30/2020 5 :43 PM EDT HC CBC,PLT & AUTO DIFF STAT 0 5:43 PM EDT documented in this encounter Results * ELECTROPHYSIOLOGY PROCEDURE (07/31/2020 10:55 AM EDT) Anatomical Region Laterality Modality Other Narrative 08/10/2020 12:30 PM EDT Procedure - Pulse Generator Replacement Custom Shoemaker: ??Jordana Tarango M.D., M.H.S. Manager Latin(s): Delfino Pantoja MD (fellow) Indication: [place] Neri is a 70 y.o. male with a history of HTN, mechanical aortic and mitral valve since 1998, on chronic Coumadin with INR goal 2.5-3.5, high-grade AV block, s/p dual-chamber permanent pacemaker implantation in 2007. His pacemaker generator reached end replacement interval (SAMEERA) on 07/23/2020. Complications: none apparent at time of procedure EBL: < 5 cc minimal Anesthesia: Conscious Sedation provided and monitored from 10:15am to 10:55 am After obtaining informed consent, the patient was brought to the EP lab in the fasting and nonsedated state. Sedation was managed with incremental doses of fentanyl and midazolam by the sedation nurse. ?? The left-sided infraclavicular pocket was scrubbed, and the patient was draped in the usual fashion. ??The pocket was opened with a combination of blunt and sharp dissection. ??Hemostasis was maintained with electrocautery with plasmablade. The pocket appeared normal. The generator and leads were brought to the surface. The leads appeared normal without any evidence of insulation damage. ??The existing generator was detached from the leads which were reconnected to the new generator. The pocket was irrigated with bacitracin/salin solution vigorously. ??The device and leads were placed back in the pocket. ??The incision was closed with running layers of 2-0 and 3-0 Vicryl. ??The skin was closed with 4-0 V-loc in a subcuticular fashion. Steristrips and a Mepilex dressing were applied. ??The patient was transferred to the recovery area in stable condition. Implanted Hardware: Generator: Medtronic [id number] serial# [id number] implant 07/31/2020 Hardware retained and used (all implanted 09/26/2008): RV lead: Medtronic 5076-52 serial# [id number] RA lead: Medtronic 5076-52 serial# [id number] Removed hardware: Medtronic pulse generator Model#[id number] serial# [id number] implanted 09/26/2008 Device Settings (unchanged from prior): DDDR 60-120 Mode switch: on Lead Interogation Data (chronic leads): RA: ??2.8 mV / 361 ohms / ??1.5 V @ 0.4 ms RV: ??3.9 mV / 589 ohms / 1.25 V @ 0.4 ms MEDICATIONS: -IV Cephazolin 2 g -Fentanyl total 25 mcg -Midazolam total 1 mg Assessment: Successful replacement of left sided dual chamber medtronic Pacemaker pulse generator. IJordana MD, was present throughout the procedure as the paper baling machine operator. ??Jordana Jeffries MD, was present throughout the period of sedation as documented by the sedation RN. Jordana Tarango MD EP PROCEDURE ORDERAB LES * Heparin (unfractionated) Level (07/31/2020 3:34 AM EDT) UF Heparin 0.43 IU/mL [facility] Comment: Specimen drawn more than one hour prior to testing. Results may not be reliable for heparin monitoring. Result may be falsely low. Guidelines for therapeutic unfractionated heparin levels are summarized below. Heparin (Anti-Xa) levels should be determined in a plasma sample that has been drawn 6 hours after a dose change i.e., steady-state has been reached. DRUG ?Dosing Schedule ? Target Peak Steady-State ?Heparin (Anti-Xa) Levels (Units/mL) Unfractionated ?Continuous infusion ?0.3-0.7 Heparin ?0.3-0.6 for some neurology indications Blood specimen (specimen) 07/31/2020 3:34 AM EDT 07/31/2020 3:41 AM EDT Narrative Resulting Agency Comment Spec In Lab Jordana Tarango MD HEMATOLOGY ORDERABLE S Performing Organization Address City/State/[facility] Co de Phone Number [facility] [place] [address] * Differential, Automated (07/31/2020 3:34 AM EDT) Neutrophil % 57.9 % [facility] Neutrophil Absolute 2.89 1.70 - 6.10 x10(3)/[facility] Lymph % 25.1 % [facility] Lymphocytes Abs 1.2 0.9 - 3.2 x10(3)/[facility] Monocyte % 10.8 % [facility] Monocyte Abs 0.5 0.3 - 0.9 x10(3)/[facility] Eos % 5.0 % [facility] Eosinophils Abs 0.2 0.0 - 0.4 x10(3)/[facility] Basophil % 1.0 % [facility] Baso Absolute 0.0 0.0 - 0.1 x10(3)/[facility] Immature Gran % 0.20 % [facility] Comment: Immature granulocytes(IG's)percentage and absolute count will include metamyelocytes, myelocytes, and promyelocytes. Blood smears from CBCs yielding IG's will be scanned manually for concordance. If this scan disagrees with the automated IG or if promyelocytes are noted, a manual differential will be performed. Immature Gran Absolute 0.01 0.00 - 0.04 x10(3)/[facility] Blood specimen (specimen) 07/31/2020 3:34 AM EDT 07/31/2020 3:41 AM EDT Narrative Resulting Agency Comment Spec In Lab Lc DELAROSA HEMATOLOGY ORDERABLE S Performing Organization Address City/State/[facility] Co de Phone Number [facility] [place] [address] * (ABNORMAL) Hemogram (07/31/2020 3:34 AM EDT) White Blood Cell 5.0 4.0 - 9.5 x10(3)/mc L [facility] Red Blood Cell 4.35(L) 4.58 - 5.54 x10(6)/mc L [facility] Hemoglobin 12.7(L) 13.7 - 16.5 gm/dL [facility] Hematocrit 38.2(L) 40.5 - 48.5 % [facility] Mean Cell Volume 87.8 82.9 - 93.1 fL [facility] Mean Cell Hemoglobin 29.2 27.5 - 32.1 pg [facility] Mean Cell Hemoglobin Concentration 33.2 32.0 - 35.7 gm/dL [facility] Platelet 161 145 - 357 x10(3)/ L [facility] RDW Standard Deviation 47.2(H) 36.0 - 45.0 fL [facility] RDW coefficient of variation 14.8(H) 11.4 - 13.8 % [facility] Mean Platelet Volume 10.2 7.6 - 12.9 [facility] NRBC% auto 0.0 % [facility] NRBC Absolute 0.000 0.000 - 0.000 x10(3)/mc L [facility] Blood specimen (specimen) 07/31/2020 3:34 AM EDT 07/31/2020 3:41 AM EDT Narrative Resulting Agency Comment Spec In Lab Lc DELAROSA HEMATOLOGY ORDERABLE S Performing Organization Address [facility] Co de Phone Number [facility] [place] [address] * (ABNORMAL) Prothrombin Time (07/31/2020 3:34 AM EDT) Prothrombin Time 24.0(H) 9.4 - 12.5 sec [facility] International Normalization Ratio 2.1 [facility] Comment: An INR <2.0 indicates adequate [...] depending on clinical circumstances. Blood specimen (specimen) 07/31/2020 3:34 AM EDT 07/31/2020 3:41 AM EDT Narrative Resulting Agency Comment Spec In Lab Jordana Tarango MD HEMATOLOGY ORDERABLE S Performing Organization Address [facility]/ZIP Co de Phone Number [facility] [place] [address] * Heparin (unfractionated) Level (07/30/2020 5:43 PM EDT) UF Heparin <0.04 IU/mL [facility] Comment: Specimen drawn more than one hour prior to testing. Results may not be reliable for heparin monitoring. Result may be falsely low. Guidelines for therapeutic unfractionated heparin levels are summarized below. Heparin (Anti-Xa) levels should be determined in a plasma sample that has been drawn 6 hours after a dose change i.e., steady-state has been reached. DRUG ?Dosing Schedule ? Target Peak Steady-State ?Heparin (Anti-Xa) Levels (Units/mL) Unfractionated ?Continuous infusion ?0.3-0.7 Heparin ?0.3-0.6 for some neurology indications Blood specimen (specimen) Venous Draw / Unknown 07/30/2020 5:43 PM EDT 07/30/2020 6:07 PM EDT Narrative Resulting Agency Comment Spec In Lab Lc DELAROSA HEMATOLOGY ORDERABLE S Performing Organization Address City/State/[facility] Co de Phone Number [facility] [place] [address] * Differential, Automated (07/30/2020 5:43 PM EDT) Neutrophil % 66.0 % [facility] Neutrophil Absolute 4.08 1.70 - 6.10 x10(3)/[facility] Lymph % 22.7 % [facility] Lymphocytes Abs 1.4 0.9 - 3.2 x10(3)/[facility] Monocyte % 7.5 % [facility] Monocyte Abs 0.5 0.3 - 0.9 x10(3)/[facility] Eos % 2.6 % [facility] Eosinophils Abs 0.2 0.0 - 0.4 x10(3)/[facility] Basophil % 1.0 % [facility] Baso Absolute 0.1 0.0 - 0.1 x10(3)/[facility] Immature Gran % 0.20 % [facility] Comment: Immature granulocytes(IG's)percentage and absolute count will include metamyelocytes, myelocytes, and promyelocytes. Blood smears from CBCs yielding IG's will be scanned manually for concordance. If this scan disagrees with the automated IG or if promyelocytes are noted, a manual differential will be performed. Immature Gran Absolute 0.01 0.00 - 0.04 x10(3)/[facility] Blood specimen (specimen) 07/30/2020 5:43 PM EDT 07/30/2020 6:07 PM EDT Narrative Resulting Agency Comment Spec In Lab Wojciech Frost MD HEMATOLOGY ORDERABLE S [facility] [place] [address] * (ABNORMAL) Hemogram (07/30/2020 5:43 PM EDT) White Blood Cell 6.2 4.0 - 9.5 x10(3)/mc L [facility] Red Blood Cell 4.50(L) 4.58 - 5.54 x10(6)/mc L [facility] Hemoglobin 13.2(L) 13.7 - 16.5 gm/dL [facility] Hematocrit 39.9(L) 40.5 - 48.5 % [facility] Mean Cell Volume 88.7 82.9 - 93.1 fL [facility] Mean Cell Hemoglobin 29.3 27.5 - 32.1 pg [facility] Mean Cell Hemoglobin Concentration 33.1 32.0 - 35.7 gm/dL [facility] Platelet 174 145 - 357 x10(3)/ L [facility] RDW Standard Deviation 47.6(H) 36.0 - 45.0 fL [facility] RDW coefficient of variation 14.7(H) 11.4 - 13.8 % [facility] Mean Platelet Volume 10.9 7.6 - 12.9 fL [facility] NRBC% auto 0.0 % [facility] NRBC Absolute 0.000 0.000 - 0.000 x10(3)/mc L [facility] Blood specimen (specimen) 07/30/2020 5:43 PM EDT 07/30/2020 6:07 PM EDT Narrative Resulting Agency Comment Spec In Lab Wojciech Frost MD HEMATOLOGY ORDERABLE S Performing Organization Address [facility] Co de Phone Number [facility] [place] [address] * (ABNORMAL) Prothrombin Time (07/30/2020 5:43 PM EDT) Prothrombin Time 25.1(H) 9.4 - 12.5 sec [facility] International Normalization Ratio 2.2 [facility] Comment: An INR <2.0 indicates adequate [...] depending on clinical circumstances. Blood specimen (specimen) 07/30/2020 5:43 PM EDT 07/30/2020 6:07 PM EDT Narrative Resulting Agency Comment Spec In Lab Wojciech Frost MD HEMATOLOGY ORDERABLE S Performing Organization Address City/[facility]/ZIP Co de Phone Number [facility] [place] [address] * (ABNORMAL) BMP w/fasting Glucose (07/30/2020 5:43 PM EDT) Glucose Fasting 110(H) 65 - 99 mg/dL [facility] Comment: ?Fasting* Glucose Interpretive Criteria Normal ?65-99 mg/dL Impaired Fasting glucose ?100-125 mg/dL Consistent with Diabetes Mellitus ? >or= 126 mg/dL *Fasting is defined as no caloric intake for at least 8 hours In the absence of unequivocal hyperglycemia a plasma glucose value of >or= 126 mg/dL should be repeated on a subsequent day. Diagnosis and Classification of Diabetes Mellitus, Position Statement from the [place] [employer]. ??Diabetes Care, Volume 33, Supplement 1, Oct 2009 Blood Urea Nitrogen 14 10 - 20 mg/dL [facility] Creatinine 0.91 0.80 - 1.50 mg/dL [facility] Sodium 140 135 - 145 mmol/L [facility] Potassium 3.9 3.5 - 5.0 mmol/L [facility] Comment: Please note: ??Patients with WBC >100,000 may have falsely elevated Potassium levels. ??For accurate Potassium quantification in these patients send serum separator tube (gold top) for subsequent determinations. ??Contact the Clinical Chemistry Laboratory if there are any questions. Chloride 105 98 - 107 mmol/L [facility] Carbon Dioxide 25 22 - 31 mmol/L [facility] Anion Gap 10 5 - 15 mmol/L [facility] Calcium 9.0 8.5 - 10.5 mg/dL [facility] Est Glomerular Filtration Rate 84 >=60 mL/min/1. 73 m?? [facility] Comment: The eGFR was calculated using the CKD-EPI equation. As with all creatinine based estimates of kidney function, eGFR values calculated with the CKD-EPI equation are not accurate in patients with acute kidney failure, extremes of body mass or the acutely ill. [email or web address] eGFR 98 >=60 mL/min/1. 73 m?? [facility] Comment: The eGFR was calculated using the CKD-EPI equation. As with all creatinine based estimates of kidney function, eGFR values calculated with the CKD-EPI equation are not accurate in patients with acute kidney failure, extremes of body mass or the acutely ill. [email or web address] Blood specimen (specimen) 07/30/2020 5:43 PM EDT 07/30/2020 6:07 PM EDT Narrative Resulting Agency Comment Spec In Lab Wojciech Frost MD CHEMISTRY ORDERABLES [facility] [place] [address] documented in this encounter Visit Diagnoses Not on filedocumented in this encounter Admitting Diagnoses Diagnosis Pacemaker complications, initial encounter documented in this encounter Administered Medications Inactive Administered Medications - up to 3 most recent administrations Medication Order MAR Action Action Date Dose Rate Site acetaminophen (Tylenol) tablet 650 mg 650 mg, Oral, EVERY 4 HOURS PRN, Starting on Idalmis 07/30/20 at 1655, Until Mon07/31/20 at 1515, Pain, Headaches, Maximum dose of acetaminophen is 4000 mg from all sources in 24 hours. When ordered for pain, acetaminophen should be given even when other ordered pain medications are indicated. , Routine aspirin EC tablet 81 mg 81 mg, Oral, DAILY, First dose on Mon07/31/20 at 0900, Until Discontinued, Routine Given 07/31/2020 8:54 AM EDT 81 mg BUpivacaine (PF) (Marcaine) 0.5 % (5 mg/mL) injection 150 mg 150 mg (30 mL), Subcutaneous, ONCE, 1 dose, On Mon07/31/20 at 1045, EP (Intra-Procedure), Routine Given 07/31/2020 10:31 AM EDT 150 mg ceFAZolin (Ancef) 2 g in dextrose 5% 100 mL infusion 2 g, Intravenous, ONCE, 1 dose, On Mon07/31/20 at 1045, Administer over 30 Minutes, For use in the electrophysiology lab (EP lab) only with direct provider supervision and verbal order., EP (Intra-Procedure), Indication for (Active or Suspected): Prophylaxis Given 07/31/2020 10:15 AM EDT 2 g 200 mL/hr fentaNYL (PF) 50 mcg/mL injection 25-50 mcg, Intravenous, EVERY 5 MIN PRN, Starting on Mon07/31/20 at 0948, Until Mon07/31/20 at 1059, Pain, As needed to induce or maintain moderate sedation per [facility] Moderate Sedation Policy for the duration of the EP procedure., As needed to induce or maintain moderate sedation per [facility] Moderate Sedation Policy for the duration of the EP procedure. For use in the electrophysiology lab (EP lab) only for procedural sedation with direct provider supervision and verbal order. RASS goal (-)2 to (-)3. Start at 25 mcg, Dose not to exceed 50 mcg/dose, 250 mcg/hr, or 20 mcg/kg per case., EP (Intra-Procedure), Routine Given 07/31/2020 10:24 AM EDT 25 mcg heparin (porcine) 50 units/mL in sodium chloride 0.45% 500 mL infusion 0-5,000 Units/hr (0-100 mL/hr), Intravenous, CONTINUOUS, Starting on Idalmis 07/30/20 at 2030, Until Mon07/31/20 at 1515, Begin infusion at 1,150 units per hr (15 units/kg/hr). MAX INITIAL infusion rate is 1,750 units/hr Target Heparin UFH Level (anti-Xa activity) = 0.3 - 0.7 IU/mL Start adjustment schedule 6 hours after starting infusion. If Heparin UFH Level is: - less than 0.1 IU/mL, administer PRN bolus and increase rate by 300 units per hr (4 units/kg/hr) - 0.1 - 0.29 IU/mL, administer PRN bolus and increase rate by 150 units per hr (2 units/kg/hr) - 0.3 - 0.7 IU/mL, No Change - 0.71 - 0.85 IU/mL, decrease rate by 100 units per hr (1 units/kg/hr) - 0.86 - 1.05 IU/mL, stop infusion for 30 minutes, then decrease rate by 150 units per hr (2 units/kg/hr) - Greater than 1.05 IU/mL, stop infusion for 60 minutes, then decrease rate by 250 units per hour (3 units/kg/hr) Repeat Heparin UFH Level 6 hours after initiating heparin. Then 6 hours after each dose adjustment. When 2 consecutive Heparin UFH Level within target range of 0.3 - 0.7 IU/mL, change Heparin UFH Level to once every 24 hours with A.M. labs while on heparin. RN to order required Heparin UFH Level - Per Protocol, Routine Rate/Dose Verify 07/31/2020 5:38 AM EDT 1,150 Units/hr 23 mL/hr New Bag 07/30/2020 8:54 PM EDT 1,150 Units/hr 23 mL/hr heparin (porcine) injection 0-8,000 Units 0-8,000 Units, Intravenous, BOLUS PER HEPARIN PROTOCOL, Starting on Idalmis 07/30/20 at 1932, Until Mon07/31/20 at 1515, Per Protocol, START ADJUSTMENT SCHEDULE 6 HOURS AFTER STARTING INFUSION Heparin UFH Level between 0.1 - 0.29 IU/mL: Bolus 2,700 units Heparin UFH Level less than 0.1 IU/mL: Bolus 5,450 units, Routine lidocaine (XYLOCAINE) 10 mg/mL (1 %) injection 3 mg 3 mg (0.3 mL), Subcutaneous, ONCE PRN, 1 dose, Starting on Idalmis 07/30/20 at 1655, Until Mon07/31/20 at 1515, for discomfort with PIV insertion, Routine lidocaine (XYLOCAINE) 10 mg/mL (1 %) injection 3 mg 3 mg (0.3 mL), Subcutaneous, ONCE PRN, 1 dose, Starting on Idalmis 07/30/20 at 1655, Until Mon07/31/20 at 1515, for discomfort with PIV insertion, Routine lidocaine (XYLOCAINE) 10 mg/mL (1 %) injection 3 mg 3 mg (0.3 mL), Subcutaneous, ONCE PRN, 1 dose, Starting on Idalmis 07/30/20 at 1655, Until Mon07/31/20 at 1515, for discomfort with PIV insertion, Day of Surgery (Day of Procedure), Routine lidocaine (XYLOCAINE) 10 mg/mL (1 %) injection 3 mg 3 mg (0.3 mL), Subcutaneous, ONCE PRN, 1 dose, Starting on Mon07/31/20 at 0948, Until Mon07/31/20 at 1515, for discomfort with PIV insertion, Day of Surgery (Day of Procedure), Routine lidocaine (XYLOCAINE) 20 mg/mL (2 %) injection 400 mg 400 mg (20 mL), Subcutaneous, ONCE, 1 dose, On Mon07/31/20 at 1045, EP (Intra-Procedure), Routine Given 07/31/2020 10:31 AM EDT 400 mg midazolam (PF) (VERSED) multi-dose injection 0.5-1 mg 0.5-1 mg, Intravenous, EVERY 5 MIN PRN, Starting on Mon07/31/20 at 0948, Until Mon07/31/20 at 1059, Anxiety, As needed to induce or maintain moderate sedation per [facility] Moderate Sedation Policy for the duration of the EP procedure., As needed to induce or maintain moderate sedation per [facility] Moderate Sedation Policy for the duration of the EP procedure. For use in the electrophysiology lab (EP lab) only for procedural sedation with direct provider supervision and verbal order. RASS goal (-)2 to (-)3. Dose not to exceed 1 mg per dose, 5mg/hour, or 0.2mg/kg per case., EP (Intra-Procedure), Routine Given 07/31/2020 10:24 AM EDT 1 mg neomycin-polymyxin B (NEOSPORIN) irrigation solution Irrigation, ONCE, On Mon07/31/20 at 1045, 1 dose, EP (Intra-Procedure) Given 07/31/2020 10:40 AM EDT nitroGLYcerin (Nitrostat) disintegrating tablet 0.4 mg 0.4 mg, Sublingual, EVERY 5 MIN PRN, Starting on Idalmis 07/30/20 at 1655, Until Mon07/31/20 at 1515, Chest pain, May repeat every 5 minutes for a total of three doses. Notify provider if chest pain not relieved with nitroglycerin. Do not administer nitroglycerin if the patient has received or taken phosphodiesterase (PDE-5) inhibitors such as sildenafil, tadalafil or vardenafil within the last 24 to 72 hours., Routine sodium chloride 0.9 % (flush) flush 5 mL 5 mL, Intravenous, 2 TIMES DAILY, First dose on Idalmis 07/30/20 at 2100, Until Discontinued, Routine Given 07/31/2020 9:00 AM EDT 5 mLs sodium chloride 0.9 % (flush) flush 5 mL 5 mL, Intravenous, 2 TIMES DAILY, First dose on Idalmis 07/30/20 at 2100, Until Discontinued, Routine Given 07/30/2020 9:00 PM EDT 5 mLs sodium chloride 0.9 % (flush) flush 5 mL 5 mL, Intravenous, EVERY 12 HOURS, First dose on Idalmis 07/30/20 at 1745, Until Discontinued, Day of Surgery (Day of Procedure), Routine sodium chloride 0.9 % (flush) flush 5 mL 5 mL, Intravenous, EVERY 12 HOURS, First dose on Mon07/31/20 at 1045, Until Discontinued, Day of Surgery (Day of Procedure), Routine sodium chloride 0.9 % (flush) flush 5-20 mL 5-20 mL, Intravenous, EVERY 1 MIN PRN, Starting on Idalmis 07/30/20 at 1655, Until Mon07/31/20 at 1515, flush, Flush pertains to all indwelling lines. Flush per protocol found in the job aid using the link provided on this medication record., Routine sodium chloride 0.9 % (flush) flush 5-20 mL 5-20 mL, Intravenous, EVERY 1 MIN PRN, Starting on Idalmis 07/30/20 at 1655, Until Mon07/31/20 at 1515, flush, Flush pertains to all indwelling lines. Flush per protocol found in the job aid using the link provided on this medication record., Routine sodium chloride 0.9 % (flush) flush 5-20 mL 5-20 mL, Intravenous, EVERY 1 MIN PRN, Starting on Idalmis 07/30/20 at 1655, Until Mon07/31/20 at 1515, flush, Flush pertains to all indwelling lines. Flush per protocol found in the job aid using the link provided on this medication record., Day of Surgery (Day of Procedure), Routine sodium chloride 0.9 % (flush) flush 5-20 mL 5-20 mL, Intravenous, EVERY 1 MIN PRN, Starting on Mon07/31/20 at 0948, Until Mon07/31/20 at 1515, flush, Flush pertains to all indwelling lines. Flush per protocol found in the job aid using the link provided on this medication record., Day of Surgery (Day of Procedure), Routine warfarin (COUMADIN) daily order reminder Oral, EVERY 24 HOURS, First dose on Mon07/31/20 at 1400, Until Discontinued, If the daily warfarin order has not been placed, contact the Provider to confirm that the order will be written, the dose is held or discontinued. warfarin (Coumadin) tablet 10 mg 10 mg, Oral, ONCE, 1 dose, On Idalmis 07/30/20 at 2000, STAT Given 07/30/2020 7:22 PM EDT 10 mg documented in this encounter Active and Recently Administered Medications Times are shown in EDT. Scheduled Medication Order 07/29/2020 07/30/2020 07/31/2020 aspirin EC tablet 81 mg 81 mg, Oral, DAILY, First dose on Mon07/31/20 at 0900, Until Discontinued, Routine 0854 (Given - Provid er: El Martino RN)0958 (DEC Hold - Provider: Admin Adt - Reason: Transfer to a Procedural area)1114 (DEC Unhold - Provider: Admin Adt) BUpivacaine (PF) (Marcaine) 0.5 % (5 mg/mL) injection 150 mg (COMPLETED) 150 mg (30 mL), Subcutaneous, ONCE, 1 dose, On Mon07/31/20 at 1045, EP (Intra-Procedure), Routine 1031 (Given - Provid er: Génesis Edmonds RN) ceFAZolin (Ancef) 2 g in dextrose 5% 100 mL infusion 2 g, Intravenous, ENDOSCOPY RN TO O.R., 1 dose, On Mon07/31/20 at 0600, Administer over 30 Minutes, rn call center to EP lab Redose every 3 hours if CrCl is greater than 20. Redose every 8 hours if CrCl is less than 20., Indication for (Active or Suspected): Prophylaxis 0958 (DEC Hold - Provider: Admin Adt - Reason: Transfer to a Procedural area)1000 (Automatically Held - Provider: Admin Adt)1044 (Canceled Entry - Provider: Génesis Edmonds RN - Reason: See comment - Comment: medication administered in procedure room)1114 (DEC Unhold - Provider: Admin Adt) ceFAZolin (Ancef) 2 g in dextrose 5% 100 mL infusion 2 g, Intravenous, ONCE, 1 dose, On Mon07/31/20 at 1045, Administer over 30 Minutes, Redose every 3 hours if CrCl is greater than 20. Redose every 8 hours if CrCl is less than 20., Day of Surgery (Day of Procedure), Indication for (Active or Suspected): Prophylaxis 1045 (Not Given - Provider: Génesis Edmonds RN - Reason: See comment - Comment: duplicate order) ceFAZolin (Ancef) 2 g in dextrose 5% 100 mL infusion (COMPLETED) 2 g, Intravenous, ONCE, 1 dose, On Mon07/31/20 at 1045, Administer over 30 Minutes, For use in the electrophysiology lab (EP lab) only with direct provider supervision and verbal order., EP (Intra-Procedure), Indication for (Active or Suspected): Prophylaxis 1015 (Given - Provid er: Génesis Edmonds RN) lidocaine (XYLOCAINE) 20 mg/mL (2 %) injection 400 mg (COMPLETED) 400 mg (20 mL), Subcutaneous, ONCE, 1 dose, On Mon07/31/20 at 1045, EP (Intra-Procedure), Routine 1031 (Given - Provid er: Génesis Edmonds RN) neomycin-polymyxin B (NEOSPORIN) irrigation solution (COMPLETED) Irrigation, ONCE, On Mon07/31/20 at 1045, 1 dose, EP (Intra-Procedure) 1040 (Given - Provid er: Génesis Edmonds RN - Comment: Dr. Toribio) sodium chloride 0.9 % (flush) flush 5 mL 5 mL, Intravenous, 2 TIMES DAILY, First dose on Idalmis 07/30/20 at 2100, Until Discontinued, Routine 2100 (Not Given - Provider: Silke Aguilera RN - Reason: Loss of access) 0900 (Given - Provider: El Martino RN)0958 (DEC Hold - Provider: Admin Adt - Reason: Transfer to a Procedural area)1114 ([facility] Unhold - Provider: Admin Adt) sodium chloride 0.9 % (flush) flush 5 mL 5 mL, Intravenous, 2 TIMES DAILY, First dose on Idalmis 07/30/20 at 2100, Until Discontinued, Routine 2100 (Given - Provider: Silke Aguilera RN) 0900 (Due)0958 (DEC Hold - Provider: Admin Adt - Reason: Transfer to a Procedural area)1114 ([facility] Unhold - Provider: Admin Adt) sodium chloride 0.9 % (flush) flush 5 mL 5 mL, Intravenous, EVERY 12 HOURS, First dose on Idalmis 07/30/20 at 1745, Until Discontinued, Day of Surgery (Day of Procedure), Routine 1745 (Not Given - Provider: Carolina Stock RN - Reason: Entered in Error) 0900 (Due - Provider: Matti Garduno [facility]) sodium chloride 0.9 % (flush) flush 5 mL 5 mL, Intravenous, EVERY 12 HOURS, First dose on Mon07/31/20 at 1045, Until Discontinued, Day of Surgery (Day of Procedure), Routine 1045 (Due) warfarin (COUMADIN) daily order reminder Oral, EVERY 24 HOURS, First dose on Mon07/31/20 at 1400, Until Discontinued, If the daily warfarin order has not been placed, contact the Provider to confirm that the order will be written, the dose is held or discontinued. 0958 (DEC Hold - Provider: Admin Adt - Reason: Transfer to a Procedural area)1114 (DEC Unhold - Provider: Admin Adt) warfarin (Coumadin) tablet 10 mg (COMPLETED) 10 mg, Oral, ONCE, 1 dose, On Idalmis 07/30/20 at 2000, STAT 1922 (Given - Provider: Silke Aguilera RN) Continuous Medication Order 07/29/2020 07/30/2020 07/31/2020 heparin (porcine) 50 units/mL in sodium chloride 0.45% 500 mL infusion(Linked Group 1) 0-5,000 Units/hr (0-100 mL/hr), Intravenous, CONTINUOUS, Starting on Idalmis 07/30/20 at 2030, Until Mon07/31/20 at 1515, Begin infusion at 1,150 units per hr (15 units/kg/hr). MAX INITIAL infusion rate is 1,750 units/hr Target Heparin UFH Level (anti-Xa activity) = 0.3 - 0.7 IU/mL Start adjustment schedule 6 hours after starting infusion. If Heparin UFH Level is: - less than 0.1 IU/mL, administer PRN bolus and increase rate by 300 units per hr (4 units/kg/hr) - 0.1 - 0.29 IU/mL, administer PRN bolus and increase rate by 150 units per hr (2 units/kg/hr) - 0.3 - 0.7 IU/mL, No Change - 0.71 - 0.85 IU/mL, decrease rate by 100 units per hr (1 units/kg/hr) - 0.86 - 1.05 IU/mL, stop infusion for 30 minutes, then decrease rate by 150 units per hr (2 units/kg/hr) - Greater than 1.05 IU/mL, stop infusion for 60 minutes, then decrease rate by 250 units per hour (3 units/kg/hr) Repeat Heparin UFH Level 6 hours after initiating heparin. Then 6 hours after each dose adjustment. When 2 consecutive Heparin UFH Level within target range of 0.3 - 0.7 IU/mL, change Heparin UFH Level to once every 24 hours with A.M. labs while on heparin. RN to order required Heparin UFH Level - Per Protocol, Routine 2053 (New Bag - Provider: Silke Aguilera, RN) 0538 (Rate/Dose Verify - Provider: Silke Aguilera RN)0958 (DEC Hold - Provider: Admin Adt - Reason: Transfer to a Procedural area)1114 (DEC Unhold - Provider: Admin Adt) PRN Medication Order 07/29/2020 07/30/2020 07/31/2020 acetaminophen (Tylenol) tablet 650 mg 650 mg, Oral, EVERY 4 HOURS PRN, Starting on Idalmis 07/30/20 at 1655, Until Mon07/31/20 at 1515, Pain, Headaches, Maximum dose of acetaminophen is 4000 mg from all sources in 24 hours. When ordered for pain, acetaminophen should be given even when other ordered pain medications are indicated. , Routine 957 (DEC Hold - Pro vider: Admin Adt - Reason: Transfer to a Procedural area)1114 ([facility] Unhold - Provider: Admin Adt) fentaNYL (PF) 50 mcg/mL injection (CANCELED) 25-50 mcg, Intravenous, EVERY 5 MIN PRN, Starting on Mon07/31/20 at 0948, Until Mon07/31/20 at 1059, Pain, As needed to induce or maintain moderate sedation per [facility] Moderate Sedation Policy for the duration of the EP procedure., As needed to induce or maintain moderate sedation per [facility] Moderate Sedation Policy for the duration of the EP procedure. For use in the electrophysiology lab (EP lab) only for procedural sedation with direct provider supervision and verbal order. RASS goal (-)2 to (-)3. Start at 25 mcg, Dose not to exceed 50 mcg/dose, 250 mcg/hr, or 20 mcg/kg per case., EP (Intra-Procedure), Routine 1024 (Given - Provid er: Génesis A Grey, RN) heparin (porcine) injection 0-8,000 Units(Linked Group 1) 0-8,000 Units, Intravenous, BOLUS PER HEPARIN PROTOCOL, Starting on Idalmis 07/30/20 at 1932, Until Mon07/31/20 at 1515, Per Protocol, START ADJUSTMENT SCHEDULE 6 HOURS AFTER STARTING INFUSION Heparin UFH Level between 0.1 - 0.29 IU/mL: Bolus 2,700 units Heparin UFH Level less than 0.1 IU/mL: Bolus 5,450 units, Routine 0958 ([facility] Hold - Pro vider: Admin Adt - Reason: Transfer to a Procedural area)1114 ([facility] Unhold - Provider: Admin Adt) lidocaine (XYLOCAINE) 10 mg/mL (1 %) injection 3 mg 3 mg (0.3 mL), Subcutaneous, ONCE PRN, 1 dose, Starting on Idalmis 07/30/20 at 1655, Until Mon07/31/20 at 1515, for discomfort with PIV insertion, Routine 09 ([facility] Hold - Pro vider: Admin Adt - Reason: Transfer to a Procedural area)1114 ([facility] Unhold - Provider: Admin Adt) lidocaine (XYLOCAINE) 10 mg/mL (1 %) injection 3 mg 3 mg (0.3 mL), Subcutaneous, ONCE PRN, 1 dose, Starting on Idalmis 07/30/20 at 1655, Until Mon07/31/20 at 1515, for discomfort with PIV insertion, Routine 09 ([facility] Hold - Pro vider: Admin Adt - Reason: Transfer to a Procedural area)1114 ([facility] Unhold - Provider: Admin Adt) lidocaine (XYLOCAINE) 10 mg/mL (1 %) injection 3 mg 3 mg (0.3 mL), Subcutaneous, ONCE PRN, 1 dose, Starting on Idalmis 07/30/20 at 1655, Until Mon07/31/20 at 1515, for discomfort with PIV insertion, Day of Surgery (Day of Procedure), Routine lidocaine (XYLOCAINE) 10 mg/mL (1 %) injection 3 mg 3 mg (0.3 mL), Subcutaneous, ONCE PRN, 1 dose, Starting on Mon07/31/20 at 0948, Until Mon07/31/20 at 1515, for discomfort with PIV insertion, Day of Surgery (Day of Procedure), Routine midazolam (PF) (VERSED) multi-dose injection 0.5-1 mg (CANCELED) 0.5-1 mg, Intravenous, EVERY 5 MIN PRN, Starting on Mon07/31/20 at 0948, Until Mon07/31/20 at 1059, Anxiety, As needed to induce or maintain moderate sedation per [facility] Moderate Sedation Policy for the duration of the EP procedure., As needed to induce or maintain moderate sedation per [facility] Moderate Sedation Policy for the duration of the EP procedure. For use in the electrophysiology lab (EP lab) only for procedural sedation with direct provider supervision and verbal order. RASS goal (-)2 to (-)3. Dose not to exceed 1 mg per dose, 5mg/hour, or 0.2mg/kg per case., EP (Intra-Procedure), Routine 1024 (Given - Provid er: Génesis Edmonds RN) nitroGLYcerin (Nitrostat) disintegrating tablet 0.4 mg 0.4 mg, Sublingual, EVERY 5 MIN PRN, Starting on Idalmis 07/30/20 at 1655, Until Mon07/31/20 at 1515, Chest pain, May repeat every 5 minutes for a total of three doses. Notify provider if chest pain not relieved with nitroglycerin. Do not administer nitroglycerin if the patient has received or taken phosphodiesterase (PDE-5) inhibitors such as sildenafil, tadalafil or vardenafil within the last 24 to 72 hours., Routine 0958 (DEC Hold - Pro vider: Admin Adt - Reason: Transfer to a Procedural area)1114 ([facility] Unhold - Provider: Admin Adt) sodium chloride 0.9 % (flush) flush 5-20 mL 5-20 mL, Intravenous, EVERY 1 MIN PRN, Starting on Idalmis 07/30/20 at 1655, Until Mon07/31/20 at 1515, flush, Flush pertains to all indwelling lines. Flush per protocol found in the job aid using the link provided on this medication record., Routine 0958 (DEC Hold - Pro vider: Admin Adt - Reason: Transfer to a Procedural area)1114 ([facility] Unhold - Provider: Admin Adt) sodium chloride 0.9 % (flush) flush 5-20 mL 5-20 mL, Intravenous, EVERY 1 MIN PRN, Starting on Idalmis 07/30/20 at 1655, Until Mon07/31/20 at 1515, flush, Flush pertains to all indwelling lines. Flush per protocol found in the job aid using the link provided on this medication record., Routine 0958 (DEC Hold - Pro vider: Admin Adt - Reason: Transfer to a Procedural area)1114 (DEC Unhold - Provider: Admin Adt) sodium chloride 0.9 % (flush) flush 5-20 mL 5-20 mL, Intravenous, EVERY 1 MIN PRN, Starting on Idalmis 07/30/20 at 1655, Until Mon07/31/20 at 1515, flush, Flush pertains to all indwelling lines. Flush per protocol found in the job aid using the link provided on this medication record., Day of Surgery (Day of Procedure), Routine sodium chloride 0.9 % (flush) flush 5-20 mL 5-20 mL, Intravenous, EVERY 1 MIN PRN, Starting on Mon07/31/20 at 0948, Until Mon07/31/20 at 1515, flush, Flush pertains to all indwelling lines. Flush per protocol found in the job aid using the link provided on this medication record., Day of Surgery (Day of Procedure), Routine Linked Groups Order Group 1: heparin (porcine) injection 0-8,000 UnitsJump to med 0-8,000 Units, Intravenous, BOLUS PER HEPARIN PROTOCOL, Starting on Idalmis 07/30/20 at 1932, Until Mon07/31/20 at 1515, Per Protocol, START ADJUSTMENT SCHEDULE 6 HOURS AFTER STARTING INFUSION Heparin UFH Level between 0.1 - 0.29 IU/mL: Bolus 2,700 units Heparin UFH Level less than 0.1 IU/mL: Bolus 5,450 units, Routine And heparin (porcine) 50 units/mL in sodium chloride 0.45% 500 mL infusionJump to med 0-5,000 Units/hr (0-100 mL/hr), Intravenous, CONTINUOUS, Starting on Idalmis 07/30/20 at 2030, Until Mon07/31/20 at 1515, Begin infusion at 1,150 units per hr (15 units/kg/hr). MAX INITIAL infusion rate is 1,750 units/hr Target Heparin UFH Level (anti-Xa activity) = 0.3 - 0.7 IU/mL Start adjustment schedule 6 hours after starting infusion. If Heparin UFH Level is: - less than 0.1 IU/mL, administer PRN bolus and increase rate by 300 units per hr (4 units/kg/hr) - 0.1 - 0.29 IU/mL, administer PRN bolus and increase rate by 150 units per hr (2 units/kg/hr) - 0.3 - 0.7 IU/mL, No Change - 0.71 - 0.85 IU/mL, decrease rate by 100 units per hr (1 units/kg/hr) - 0.86 - 1.05 IU/mL, stop infusion for 30 minutes, then decrease rate by 150 units per hr (2 units/kg/hr) - Greater than 1.05 IU/mL, stop infusion for 60 minutes, then decrease rate by 250 units per hour (3 units/kg/hr) Repeat Heparin UFH Level 6 hours after initiating heparin. Then 6 hours after each dose adjustment. When 2 consecutive Heparin UFH Level within target range of 0.3 - 0.7 IU/mL, change Heparin UFH Level to once every 24 hours with A.M. labs while on heparin. RN to order required Heparin UFH Level - Per Protocol, Routine documented in this encounter Care Teams Hide Worker Relationship Specialty Start Date End Date Linda Mccray MD [address] [place] [address] PCP - General Family Medicine 10/20/16 documented as of this encounter
--- OUTSIDE RECORDS SUMMARY | 2024-07-17 21:51 | XMS_ITS | Encounter Summary ---
[facility] [place] [address] Care Team Providers Care Aerospace Medicine Physician Name Role Phone Linda Mccray MD Primary Care Provider [phone] Reason for Visit * Reason Onset Date Comments Dizziness 07/28/2020 Encounter Details Date Type Department Care Team ([facility] st Contact Info) Description 07/28/2020 Telephone Cardiology at [address] [phone] Rita Becker RN Dizziness Social History Tobacco Use Types Packs/Day Years [...] encounter Miscellaneous Notes * Telephone Encounter - Rita Becker RN - 07/28/2020 9:38 AM EDTSummary: Device at [facility] - Gen Change Caller: Patient Reason for call: Pt calling in relation to discussion w/ hazardous materials analyst Dr. Cummings early this AM. Pt at [facility] due for generator change & is calling w/ questions concerning restrictions/driving s/p generator change. He was planned to move to [place] this week, however he is postponing due to feeling poorly. Notified him that 48 [address] restriction s/p gen change, however since new system is not being implanted no other restrictions apply. Did inform him regarding f/u of gen change - 10 day wound check, 91 day device check. Pt reports that last PM he was feeling extremely lightheaded & needed to sit down on the floor to prevent from passing out, was also (+) for nausea. Discussed w/ Dr. Tarango (EP attending) Recommended he go to ED ([facility] or if he felt comfortable, have someone drive him to [facility] He opted to be scheduled for gen change next week (08/04) however if he begins feeling worse he will present to nearest ED. Pt on warfarin & dosing/INR checks are by PCP Linda Mccray. Called their office to notify about INR goal (2.5-3) & inform of procedure. Unable to reach - LVM with acute care nurse practitioner & am awaiting return call Plan: 1) Scheduled for PCM generator change on 08/04 2) Pt will present to ED if new/worsening symptoms documented in this encounter Plan of Treatment Not on file documented as of this encounter Visit Diagnoses Not on filedocumented in this encounter Care Teams Aerospace Medicine Physician Relationship Specialty Start Date End Date Linda Mccray MD [address] [place] [address] PCP - General Family Medicine 10/20/16 documented as of this encounter
--- OUTSIDE RECORDS SUMMARY | 2024-07-17 21:51 | XMS_ITS | Encounter Summary ---
Author Organization [facility] [place] [address] Care Team Providers Care Trailer Technician Name Role Phone Linda Mccray MD Primary Care Provider [phone] Encounter Details Date Type Department Care Team ([facility] Contact Info) Description 07/28/2020 Telephone [place] [phone] Cassandra Champion Social History Tobacco Use Types Packs/Day Years [...] encounter Miscellaneous Notes * Telephone Encounter - Cassandra Champion - 07/28/2020 11:24 AM EDT EP Procedure Archival Records Clerk Patient Coordination Checklist DATE CALLED: 07/28/20 DATE OF PROCEDURE: 08/04/20 PERFORMING MD [place] PROCEDURE TYPE: DC PCM GEN REPLACEMENT COMPANY: [employer] ANESTHESIA TYPE: MOD IMAGING NEEDED: N/A DATES OF SCHEDULED IMAGING: N/A ORDERS: Y ANTICOAG TYPE: WARFARIN MANAGED BY (IF ON WARFARIN): FACILITY NAME - [facility] MD Georgette MCCRAY CONTACT INFO - [phone] DATE OF INR PRIOR TO PROCEDURE: 07/31/20 ORIGINALLY ADVISED PATIENT INR NEEDED ON 08/03 BUT WILL CALL PATIENT BACK AND ADVISE OF CORRECT DATE OF 07/31 documented in this encounter Plan of Treatment Not on file documented as of this encounter Visit Diagnoses Not on filedocumented in this encounter Care Teams Trailer Technician Relationship Specialty Start Date End Date Linda Mccray MD [address] [place] [address] PCP - General Family Medicine 10/20/16 documented as of this encounter
--- OUTSIDE RECORDS SUMMARY | 2024-07-17 21:51 | XMS_ITS | Encounter Summary ---
Author Organization [facility] Address [facility] [place] [address] Care Team Providers Care Dental Assistant Name Role Phone Linda Mccray MD Primary Care Provider [phone] Reason for Visit * Auth/Cert Specialty Diagnoses / Procedures Referred By Contac t Referred To Contact Diagnoses Pacemaker complications, initial encounter Dizziness Referral ID Status Reason Start Date Expiration Date Visits Re quested Visits Authorized [id number] 1 1 Encounter Details Date Type Department Care Team (Latest Contact Info) Description 07/30/2020 2:34 PM EDT - 07/31/2020 1:15 PM EDT Hospital Encounter Intermediate [place] [phone] Matti Martell MD [facility] [place] [address] Papi Sorenson MD [facility] [place] [address] Jordana Tarango MD [facility] [place] [address] Pacemaker complications, initial encounter Discharge Disposition: Home [...] depletion Added automatically from request for surgery [id number] ??? Chronic bullous emphysema ??? Clostridium difficile [...] requiring chest tube placement, who presented to [facility] via [facility] following symptomatic bradycardia that occurred in setting [...] into Monday morning before he presented to [facility] with near-syncope. Since being admitted to [facility], he has not had any recurrence of symptoms but also admits he h as not tried to exert himself. ?? At [facility], patient had supratherapeutic INR 3.6 on admission 07/29/2020 and Coumdin was held. He was recommended transfer to [facility] for treatment of near-syncope and pacemaker complication. His INR on dayof transfer was 2.8. A Medtronic device interrogation on 07/29/2020 showed normal functioning pacemaker reverted to VVI backup pacing in setting of SAMEERA and predominant V-paced burden (95.5%) since then. He had a negative COVID-19 test on 07/29/2020. 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 Important Studies and Lab Data: Labs: [facility] Results Component Value Date INR 2.1 [...] the incision. Make sure to use a men's and boys' clothing salesperson (such as a towel) in between the [...] F. The office scheduling phone number is [phone]. ARM MOVEMENT RESTRICTIONS POST-IMPLANT - Do not raise your elbow on the operated side above the shoulder for 1 WEEK ONLY to allow incisionto heal. If you have any questions or concerns about this product, please call the office at [phone]. General Instructions None Discharge References/Attachments: Discharge References/Attachments None Inpatient Provider Contact Information: EP PAGER - [phone] Electronically Signed By: Tan Pantoja MD 07/31/2020 [...] the incision. Make sure to use a men's and boys' clothing salesperson (such as a towel) in between the [...] F. The office scheduling phone number is [phone]. ARM MOVEMENT RESTRICTIONS POST-IMPLANT - Do not raise your elbow on the operated side above the shoulder for 1 WEEK ONLY to allow incisionto heal. If you have any questions or concerns about this product, please call the office at [phone]. documented in this encounter Medications at Time [...] Note: Added automatically from request for surgery [id number] ??? Chronic bullous emphysema ??? Clostridium difficile [...] requiring chest tube placement, who presented to [facility] via [facility] following symptomatic bradycardia that occurred in setting [...] into Monday morning before he presented to [facility] with near-syncope. Since being admitted to [facility], he has not had any recurrence of symptoms but also admits he h as not tried to exert himself. At [facility], patient had supratherapeutic INR 3.6 on admission 07/29/2020 and Coumdin was held. He was recommended transfer to [facility] for treatment of near-syncope and pacemaker complication. His INR on dayof transfer was 2.8. A Medtronic device interrogation on 07/29/2020 showed normal functioning pacemaker reverted to VVI backup pacing in setting of SAMEERA and predominant V-paced burden (95.5%) since then. He had a negative COVID-19 test on 07/29/2020. A 12-lead EKG at [facility] on 07/29/2020 showed v-paced rhythm 65 bpm [...] Patient is and lives with his in [place], [place]. He is a practicing Taoism. He has no children. He works as [...] Pneumothorax on left Pertinent Medications: No current [facility]-ordered facility-administered medications on file. No current [facility]-ordered outpatient medications on file. Current Discharge [...] file Gets together: Not on file Attends pentecostal service: Not on file Active member of [...] 2027 Attending: Jordana Tarango MD Service Pager: [phone] Staff addendum: I have seen and evaluated the patient, and reviewed the available medical records. I agree with the findings, physical examination, and assessment of Lc Arguetajustinelionel as detailed above. We will start heparin [...] 3:34 AM EDT DIFFERENTIAL, AUTOMATED Routine 07/31/20 20 3:34 AM EDT HC PROTHROMBIN TIME Routine [...] PM EDT Procedure - Pulse Generator Replacement Cream Separator Operator: ??Jordana Tarango M.D., M.H.S. Demand Generator Manager(s): Delfino Pantoja MD (fellow) Indication: [place] Neri [...] condition. Implanted Hardware: Generator: Medtronic [id number] serial# [id number] implant 07/31/2020 Hardware retained and used (all implanted 09/26/2008): RV lead: Medtronic 5076-52 serial# [id number] RA lead: Medtronic 5076-52 serial# [id number] Removed hardware: Medtronic pulse generator Model#[id number] serial# [id number] implanted 09/26/2008 Device Settings (unchanged from prior): [...] was present throughout the procedure as the silica filter operator. ??Jordana Jeffries MD, was present throughout the period of sedation as documented by the sedation RN. Jordana Tarango MD EP PROCEDURE ORDERAB LES * Heparin (unfractionated) Level (07/31/2020 3:34 AM EDT) Pathologist [facility] UF Heparin 0.43 IU/mL [facility] Comment: Specimen drawn more [...] Lab Jordana Tarango MD HEMATOLOGY ORDERABLE S [facility] [place] [address] * Differential, Automated (07/31/2020 3:34 AM EDT) [facility] Neutrophil % 57.9 % [facility] Neutrophil Absolute 2.89 1.70 - 6.10 x10(3)/[facility] Lymph % 25.1 % [facility] Lymphocytes Abs 1.2 0.9 - 3.2 x10(3)/[facility] Monocyte % 10.8 % [facility] Monocyte Abs 0.5 0.3 - 0.9 x10(3)/[facility] Eos % 5.0 % [facility] Eosinophils Abs 0.2 0.0 - 0.4 x10(3)/[facility] Basophil % 1.0 % [facility] Baso Absolute 0.0 0.0 - 0.1 x10(3)/[facility] Immature Gran % 0.20 % [facility] Comment: Immature granulocytes(IG's)percentage and absolute count will include metamyelocytes, myelocytes, and promyelocytes. Blood smears from CBCs yielding IG's will be scanned manually for concordance. If this scan disagrees with the automated IG or if promyelocytes are noted, a manual differential will be performed. Immature Gran Absolute 0.01 0.00 - 0.04 x10(3)/[facility] Blood specimen (specimen) 07/31/2020 3:34 AM EDT 07/31/2020 3:41 AM EDT Narrative Resulting Agency Comment Spec In Lab Lc DELAROSA HEMATOLOGY ORDERABLE S [facility] [place] [address] * (ABNORMAL) Hemogram (07/31/2020 3:34 AM EDT) White Blood Cell 5.0 4.0 - 9.5 x10(3)/mc L [facility] Red Blood Cell 4.35(L) 4.58 - 5.54 x10(6)/mc L [facility] Hemoglobin 12.7(L) 13.7 - 16.5 gm/dL [facility] Hematocrit 38.2(L) 40.5 - 48.5 % [facility] Mean Cell Volume 87.8 82.9 - 93.1 fL [facility] Mean Cell Hemoglobin 29.2 27.5 - 32.1 pg [facility] Mean Cell Hemoglobin Concentration 33.2 32.0 - 35.7 gm/dL [facility] Platelet 161 145 - 357 x10(3)/mc L [facility] RDW Standard Deviation 47.2(H) 36.0 - 45.0 fL [facility] RDW coefficient of variation 14.8(H) 11.4 - 13.8 % [facility] Mean Platelet Volume 10.2 7.6 - 12.9 fL [facility] NRBC% auto 0.0 % [facility] NRBC Absolute 0.000 0.000 - 0.000 x10(3)/mc L [facility] Blood specimen (specimen) 07/31/2020 3:34 AM EDT 07/31/2020 3:41 AM EDT Narrative Resulting Agency Comment Spec In Lab Lc DELAROSA HEMATOLOGY ORDERABLE S [facility] [place] [address] * (ABNORMAL) Prothrombin Time (07/31/2020 3:34 AM EDT) Prothrombin Time 24.0(H) 9.4 - 12.5 sec [facility] [...] MD HEMATOLOGY ORDERABLE S Performing Organization Address [facility]/ZIP Co de Phone Number [facility] [place] [address] * Heparin (unfractionated) Level (07/30/2020 5:43 PM EDT) [facility] UF Heparin <0.04 IU/mL [facility] Comment: Specimen drawn more [...] [facility]A HEMATOLOGY ORDERABLE S Performing Organization Address [facility] Co de Phone Number [facility] [place] [address] * Differential, Automated (07/30/2020 5:43 PM EDT) [facility] Neutrophil % 66.0 % [facility] Neutrophil Absolute 4.08 1.70 - 6.10 x10(3)/mcL [facility] Lymph % 22.7 % [facility] Lymphocytes Abs 1.4 0.9 - 3.2 x10(3)/[facility] Monocyte % 7.5 % [facility] Monocyte Abs 0.5 0.3 - 0.9 x10(3)/[facility] Eos % 2.6 % [facility] Eosinophils Abs 0.2 0.0 - 0.4 x10(3)/[facility] Basophil % 1.0 % [facility] Baso Absolute 0.1 0.0 - 0.1 x10(3)/[facility] Immature Gran % 0.20 % [facility] Comment: Immature granulocytes(IG's)percentage and absolute count will include metamyelocytes, myelocytes, and promyelocytes. Blood smears from CBCs yielding IG's will be scanned manually for concordance. If this scan disagrees with the automated IG or if promyelocytes are noted, a manual differential will be performed. Immature Gran Absolute 0.01 0.00 - 0.04 x10(3)/[facility] Blood specimen (specimen) 07/30/2020 5:43 PM EDT 07/30/2020 6:07 PM EDT Narrative Resulting Agency Comment Spec In Lab Wojciech Frost MD HEMATOLOGY ORDERABLE S Performing Organization Address City/State/[facility] Co de Phone Number [facility] [place] [address] * (ABNORMAL) Hemogram (07/30/2020 5:43 PM EDT) White Blood Cell 6.2 4.0 - 9.5 x10(3)/mc L [facility] Red Blood Cell 4.50(L) 4.58 - 5.54 x10(6)/ L [facility] Hemoglobin 13.2(L) 13.7 - 16.5 gm/dL [facility] Hematocrit 39.9(L) 40.5 - 48.5 % [facility] Mean Cell Volume 88.7 82.9 - 93.1 fL [facility] Mean Cell Hemoglobin 29.3 27.5 - 32.1 pg [facility] Mean Cell Hemoglobin Concentration 33.1 32.0 - 35.7 gm/dL [facility] Platelet 174 145 - 357 x10(3)/mc L [facility] RDW Standard Deviation 47.6(H) 36.0 - 45.0 fL [facility] RDW coefficient of variation 14.7(H) 11.4 - 13.8 % [facility] Mean Platelet Volume 10.9 7.6 - 12.9 fL [facility] NRBC% auto 0.0 % [facility] NRBC Absolute 0.000 0.000 - 0.000 x10(3)/mc L [facility] Blood specimen (specimen) 07/30/2020 5:43 PM EDT 07/30/2020 6:07 PM EDT Narrative Resulting Agency Comment Spec In Lab Wojciech Frost MD HEMATOLOGY ORDERABLE S [facility] [place] [address] * (ABNORMAL) Prothrombin Time (07/30/2020 5:43 PM EDT) Prothrombin Time 25.1(H) 9.4 - 12.5 sec [facility] International Normalization Ratio 2.2 [facility] Comment: An INR <2.0 [...] Lab Wojciech Frost MD HEMATOLOGY ORDERABLE S [facility] [place] [address] * (ABNORMAL) BMP w/fasting Glucose (07/30/2020 5:43 PM EDT) Glucose Fasting 110(H) 65 - 99 mg/dL [facility] Comment: ?Fasting* Glucose Interpretive Criteria Normal [...] of Diabetes Mellitus, Position Statement from the [place] [employer]. ??Diabetes Care, Volume 33, Supplement 1, Oct 2009 Blood Urea Nitrogen 14 10 - 20 mg/dL [facility] Creatinine 0.91 0.80 - 1.50 mg/dL [facility] [...] questions. Chloride 105 98 - 107 mmol/L [facility] Carbon Dioxide 25 22 - 31 mmol/L [facility] Anion Gap 10 5 - 15 mmol/L [facility] Calcium 9.0 8.5 - 10.5 mg/dL [facility] Est Glomerular Filtration Rate 84 >=60 mL/min/1. 73 m?? [facility] Comment: The eGFR was calculated using the CKD-EPI equation. As with all creatinine based estimates of kidney function, eGFR values calculated with the CKD-EPI equation are not accurate in patients with acute kidney failure, extremes of body mass or the acutely ill. http://[employer]/DHMCnkf eGFR 98 >=60 mL/min/1. 73 m?? [facility] Comment: The eGFR was calculated using the CKD-EPI equation. As with all creatinine based estimates of kidney function, eGFR values calculated with the CKD-EPI equation are not accurate in patients with acute kidney failure, extremes of body mass or the acutely ill. http://[employer] Blood specimen (specimen) 07/30/2020 5:43 PM EDT 07/30/2020 6:07 PM EDT Narrative Resulting Agency Comment Spec In Lab Wojciech Frost MD CHEMISTRY ORDERABLES Performing Organization Address City/State/[facility] Co de Phone Number [facility] [place] [address] documented in this encounter Visit Diagnoses Diagnosis Pacemaker complications, initial encounter- Primary Pacemaker complications, initial encounter Near syncope Syncope and collapse documented in this encounter Admitting Diagnoses Diagnosis Pacemaker [...] to induce or maintain moderate sedation per [facility] Moderate Sedation Policy for the duration of the EP procedure., As needed to induce or maintain moderate sedation per [facility] Moderate Sedation Policy for the duration of [...] to induce or maintain moderate sedation per [facility] Moderate Sedation Policy for the duration of the EP procedure., As needed to induce or maintain moderate sedation per [facility] Moderate Sedation Policy for the duration of [...] 5% 100 mL infusion 2 g, Intravenous, BILL COLLECTOR TO O.R., 1 dose, On Mon07/31/20 at 0600, Administer over 30 Minutes, service station cashier to EP lab Redose every 3 hours [...] - Comment: medication administered in procedure room)1114 (MAR Unhold - Provider: Admin Adt) ceFAZolin (Ancef) [...] 0900 (Given - Provider: El Martino RN)0958 (MAR Hold - Provider: Admin Adt - Reason: Transfer to a Procedural area)1114 ([facility] Unhold - Provider: Admin Adt) sodium chloride 0.9 % (flush) flush 5 mL 5 mL, Intravenous, 2 TIMES DAILY, First dose on Idalmis 07/30/20 at 2100, Until Discontinued, Routine 2100 (Given - Provider: Silke Aguilera RN) 0900 (Due)0958 (DEC Hold - Provider: Admin Adt - Reason: Transfer to a Procedural area)1114 ([facility] Unhold - Provider: Admin Adt) sodium chloride 0.9 % (flush) flush 5 mL 5 mL, Intravenous, EVERY 12 HOURS, First dose on Idalmis 07/30/20 at 1745, Until Discontinued, Day of Surgery (Day of Procedure), Routine 1745 (Not Given - Provider: Carolina Stock RN - Reason: Entered in Error) 0900 (Due - Provider: Matti Garduno [facility]) sodium chloride 0.9 % (flush) flush 5 [...] - Reason: Transfer to a Procedural area)1114 ([facility] Unhold - Provider: Admin Adt) warfarin (Coumadin) [...] Routine 2053 (New Bag - Provider: Silke Aguilera RN) 0538 (Rate/Dose Verify - Provider: Silke [...] area)1114 (DEC Unhold - Provider: Admin Adt) fentaNYL (PF) 50 mcg/mL injection (CANCELED) 25-50 mcg, Intravenous, EVERY 5 MIN PRN, Starting on 07/31/20 at 0948, Until Mon07/31/20 at 1059, Pain, As needed to induce or maintain moderate sedation per [facility] Moderate Sedation Policy for the duration of the EP procedure., As needed to induce or maintain moderate sedation per [facility] Moderate Sedation Policy for the duration of the EP procedure. For use in the electrophysiology lab (EP lab) only for procedural sedation with direct provider supervision and verbal order. RASS goal (-)2 to (-)3. Start at 25 mcg, Dose not to exceed 50 mcg/dose, 250 mcg/hr, or 20 mcg/kg per case., EP (Intra-Procedure), Routine 1024 (Given - Provid er: Génesis Edmonds RN) heparin (porcine) injection 0-8,000 Units(Linked Group 1) 0-8,000 Units, Intravenous, BOLUS PER HEPARIN PROTOCOL, Starting on Idalmis 07/30/20 at 1932, Until Mon07/31/20 at 1515, Per Protocol, START ADJUSTMENT SCHEDULE 6 HOURS AFTER STARTING INFUSION Heparin UFH Level between 0.1 - 0.29 IU/mL: Bolus 2,700 units Heparin UFH Level less than 0.1 IU/mL: Bolus 5,450 units, Routine 0958 (DEC Hold - Pro vider: Admin Adt - Reason: Transfer to a Procedural area)1114 ([facility] Unhold - Provider: Admin Adt) lidocaine (XYLOCAINE) 10 mg/mL (1 %) injection 3 mg 3 mg (0.3 mL), Subcutaneous, ONCE PRN, 1 dose, Starting on Idalmis 07/30/20 at 1655, Until Mon07/31/20 at 1515, for discomfort with PIV insertion, Routine 0958 (DEC Hold - Pro vider: Admin Adt - Reason: Transfer to a Procedural area)1114 ([facility] Unhold - Provider: Admin Adt) lidocaine (XYLOCAINE) 10 mg/mL (1 %) injection 3 mg 3 mg (0.3 mL), Subcutaneous, ONCE PRN, 1 dose, Starting on Idalmis 07/30/20 at 1655, Until Mon07/31/20 at 1515, for discomfort with PIV insertion, Routine 0958 (DEC Hold - Pro vider: Admin Adt - Reason: Transfer to a Procedural area)1114 ([facility] Unhold - Provider: Admin Adt) lidocaine (XYLOCAINE) [...] to induce or maintain moderate sedation per [facility] Moderate Sedation Policy for the duration of the EP procedure., As needed to induce or maintain moderate sedation per [facility] Moderate Sedation Policy for the duration of the EP procedure. For use in the electrophysiology lab (EP lab) only for procedural sedation with direct provider supervision and verbal order. RASS goal (-)2 to (-)3. Dose not to exceed 1 mg per dose, 5mg/hour, or 0.2mg/kg per case., EP (Intra-Procedure), Routine 1024 (Given - Provid er: Génesis dEmonds RN) nitroGLYcerin (Nitrostat) disintegrating tablet 0.4 mg [...] link provided on this medication record., Routine 09 ([facility] Hold - Pro vider: Admin Adt - Reason: Transfer to a Procedural area)1114 ([facility] Unhold - Provider: Admin Adt) sodium chloride 0.9 % (flush) flush 5-20 mL 5-20 mL, Intravenous, EVERY 1 MIN PRN, Starting on Idalmis 07/30/20 at 1655, Until Mon07/31/20 at 1515, flush, Flush pertains to all indwelling lines. Flush per protocol found in the job aid using the link provided on this medication record., Routine 09 ([facility] Hold - Pro vider: Admin Adt - Reason: Transfer to a Procedural area)1114 ([facility] Unhold - Provider: Admin Adt) sodium chloride [...] Routine documented in this encounter Care Teams Dental Assistant Relationship Specialty Start Date End Date Linda Mccray MD [address] [place] [address] PCP - General Family Medicine 10/20/16 documented as of this encounter
--- OUTSIDE RECORDS SUMMARY | 2024-07-17 21:51 | XMS_ITS | Encounter Summary ---
[place] [address] Care Team Providers Care Respiratory Therapy Aide Name Role Phone Linda Mccray MD Primary Care Provider [phone] Reason for Visit * Reason Onset Date Comments Questions 08/06/2020 Encounter Details Date Type Department Care Team ([facility] st Contact Info) Description 08/06/2020 Telephone Cardiology at [address] [phone] Yury Wadsworth RN Questions Social History Tobacco Use Types Packs/Day Years [...] encounter Miscellaneous Notes * Telephone Encounter - Yury Wadsworth RN - 08/07/2020 8:48 AM EDT TC to pt this morning to f/u on his incision site after his visit with his general picker and packer yesterday. Pt unavailable, VM left for him to call at his earliest convenience. * Telephone Encounter - Yury Wadsworth RN - 08/06/2020 10:40 AM EDT TC from pt who had questions re: his incision from his generator change on 07/31/20. Pt reports leftchest area is bruised down below his nipple which he expected d/t his coumadin use and uninterrupted therapy. Pt states that he has had a hematoma just below the incision since discharge but he thought that the incision line was slightly swollen. Pt reports: (-) pain, redness, drainage, fever/chills He stated he was on his way for an appointment with his general picker and packer Dr. Navin Morin at [facility] within the hour. Pt does not currently have access to [facility] at the moment so he is unable to upload a picture of his incision site to the portal. Instructed pt to have incision looked at by Dr. Morin during his appointment. Pt due for 10 day wound check on Monday, August 10 here in clinic and he is aware to call with any changes to site. Pt also concerned as he will be leaving for [place] next week for a few months and wanted to be surethat this would be something he could do. Told pt that this information would be relayed to Dr. Tarango for her review in regards to travel. Pt verbalized understanding. Pt aware if he develops redness, swelling, drainage, pain, fever or chills to be evaluated at the nearest ED. Pt verbalized understanding. documented in this encounter Plan of Treatment Not on file documented as of this encounter Visit Diagnoses Not on filedocumented in this encounter Care Teams Respiratory Therapy Aide Relationship Specialty Start Date End Date Linda Mccray MD [address] [place] [address] PCP - General Family Medicine 10/20/16 documented as of this encounter
--- OUTSIDE RECORDS SUMMARY | 2024-07-17 21:51 | XMS_ITS | Encounter Summary ---
Author Organization [facility] [place] [address] Care Team Providers Care Distribution Technician Name Role Phone Linda Mccray MD Primary Care Provider [phone] Reason for Visit * Consultation (Routine) - Closed Specialty Diagnoses / Procedures Referred By Contac t Referred To Contact Pulmonology Diagnoses SOB (shortness of breath) chronic bullous emphysema shortness of breath Kiara Romo APRN [address] [place] [address] [facility] [place] [facility] [address] [place] [phone] Referral ID Status Reason Start Date Expiration Date V isits Requested Visits Authorized [id number] Closed Consult, Test & [facility] 07/19/2017 07/19/2018 1 1 Encounter Details Date Type Department Care Team ([facility] st Contact Info) Description 09/08/2017 10:00 AM EST Office [place] [address] Martín Davis MD [facility] [place] [address] DELVALLE (dyspnea on exertion) Social History Tobacco [...] Sign Reading Time Taken Comments Blood Pressure 116/65 09/08/2017 10:15 AM EST Pulse 63 09/08/2017 10:15 AM EST Temperature - - Respiratory Rate 20 09/08/2017 10:15 AM EST Oxygen Saturation 100% 09/08/2017 10:15 AM EST Inhaled Oxygen Concentration - - Weight 85.7 kg (189 lb) 09/08/2017 10:15 AM EST Height - - Body Mass Index 24.94 11/18/2016 9:38 AM EST documented in this encounter Progress Notes * Martín Davis MD - 09/08/2017 10:00 AM EST Images from the original note were not included. [facility] Section of Pulmonary Medicine Outpatient Consultation Date of Encounter: 09/08/2017 Referring Provider: Linda Mccray Md [address] [place] [id number] PCP: Linda Mccray MD Reason for Consult: I was asked to evaluate this patient for dyspnea I have personally interviewed and examined the patient. I have independently viewed his radiographic studies, pulmonary function testing and laboratory data. 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 According to the patient he has had dyspnea for the past 20 years however over the past year it hasgotten progressively worse. He states that he no longer can walk uphill without stopping. In the past he was able to walk multiple blocks, now only half a block. He denies any dyspnea during rest, noorthopnea. Denies any chest pain or cough. He has no Lower ext. Edema. He is an ex-smoker, smoked 1PPD for 20 yrs quit in 1983. He has a remote history of asbestos exposure in early 70's. His echo on10/19/16 showed an EF of 45-50% with hypokinesis of entire apical area. Pulmonary artery pressure was normal. His his spirometry and lung volumes on 07/19/17 were normal with reduced DLCO to 56% predicted. His DLCO in 2016 was 64% predicted. His CT of chest on 11/18/16 shows bollous lung disease. Of note in October of 2016 he had a fall on ice and had a pneumothorax which required a pigtail catheter. His hospital coarse was complicated with C- diff colitis which was treated with antibiotics. Review of Systems: A total of 10 systems were reviewed and were negative other than as listed below: Dyspnea on exertion Past Medical History: Past Medical History: Diagnosis Date ??? [...] 4.67) performed by Lena Clark MD at [facility] Medications: Current Outpatient Prescriptions Medication Sig Dispense Refill ??? oxyCODONE (ROXICODONE) 5 mg Tablet TAKE ONE TO TWO TABLETS BY MOUTH EVERY 4 HOURS NEEDED 0 ??? lisinopril (PRINIVIL;ZESTRIL) 5 mg Tablet TAKE ONE TABLET BY MOUTH EVERY DAY 4 ??? cyclobenzaprine (FLEXERIL) 10 mg Tablet take 1 tablet by mouth three times a day 0 ??? aspirin 81 mg Tablet, Delayed Release (E.C.) TAKE ONE TABLET BY MOUTH EVERY DAY 3 ??? STOOL SOFTENER 100 mg Capsule take 1 capsule by mouth twice a day 0 ??? bisacodyl (DULCOLAX) 5 mg Tablet, Delayed Release (E.C.) TAKE ONE TABLET BY MOUTH TWICE A DAY 0 ??? hydroCODone-acetaminophen (VICODIN) 5-500 mg per tablet 1-2 Tablet(s), PO, Q4-6H prn ??? warfarin (COUMADIN) 10 mg tablet ??? multivitamin (THERAGRAN) tablet No current facility-administered medications for this visit. Allergies: Review of patient's allergies indicates no known allergies. Immunizations: Immunization History Administered Date(s) Administered ??? Influenza Vaccine, Whole 09/26/2005 ??? Pneumococcal Polyvalent 23 09/26/2005 Social History: Social History Substance Use Topics ??? Smoking status: Former Smoker Packs/day: 1.00 Years: 35.00 ??? Smokeless tobacco: Former User Quit date: 1982 ??? Alcohol use 3.0 oz/week 5 Glasses of wine per week Family History: Father and mother with history of CAD Examination: BP 116/65 Pulse 63 Resp 20 Wt 85.7 kg (189 lb) SpO2 100% BMI 24.94 kg/m2 General: WD/WN in no distress HEENT: PERRLA; EOMI; No cervical lymphadenopathy, Oropharynx clear Resp: CTA B/L No crackles or wheeze CV: RRR; S1 + S2; no murmurs GI: Normal BS; Abdomen soft and non-tender, no organomegaly Skin: No rash Extremities: No clubbing, no cyanosis, no edema MSK: Calves soft and non tender Neurologic: CN's intact, no focat deficits, normal gait Psych: Normal mood and affect Labs: None available. Imaging: Available CXR and CT Chest images were viewed personally and reports were reviewed. I agree with the radiology reads. CT chest 11/18/16 Results for orders placed during the hospital encounter of 11/18/16 CT Chest w Contrast Narrative EXAMINATION: CT CHEST W CONTRAST CLINICAL HISTORY: evaluate for recurrent L pneumothorax. TECHNIQUE: Chest CT with 60 ml of Omnipaque 350. COMPARISON: Outside chest radiograph November 11, 2016. FINDINGS: Quite extensive bilateral centrilobular and paraseptal emphysematous changes of the lungs. Large bullae are primarily seen subpleural along the apices, anterior, and medial aspect of the lungs. No pneumothorax. Small amount of layering material in the dependent portion of the right mainstem bronchus has a low density consistent with mucus. Diffuse mild bronchiectatic changes are present. Trace pleural effusion bilaterally. No definite pathological enlargement of lymph nodes within the chest. Limited upper abdomen: Unremarkable findings of the partially visualized abdominal organs. Densely calcified atherosclerotic changes of the upper abdominal aorta. Skeleton: Multiple mildly displaced right-sided rib fractures involve at least the 4th to 11th rib. Only some of these show early callus formation. Left-sided pacemaker with 2 leads ending in the right atrium and right ventricle. Aortic and mitral valve replacement. Impression Bilateral extensive emphysematous changes of the lungs. No pneumothorax. Diffuse mild bronchiectasis. Trace pleural effusion bilaterally. Multiple subacute right-sided rib fractures with only early callus formation. Pulmonary Function Tests: 07/19/17: FEV1: 3.45 (((% predicted) FVC: 5.36 (114% predicted) Normal lung volumes DLCO: 56% predicted (On 11/07/2016 was 63% predicted) Assessment: This is a 67 yo man with history of AVR and MVR on chronic anticoagulation who presents with progressively worsening dyspnea on exertion. He has a history of smoking. Early COPD may be a cause but unlikely since his spirometry and lung volumes are normal, his DLCO is reduced out of proportion to the rest of his PFT which is most likely cause of his dyspnea. On CT scan he has bollous lung disease,his lung function is intact. This makes COPD less likely and pulmonary vascular disease a more likely cause. Possibly group 2 pulmonary hypertension secondary to Lt. Heart disease. His EF is 45-50% with hypokinesis of apical area. Chronic thromboembolic pulmonary hypertension is less likely becauseof chronic use of anticoagulation. Plan: Pt is supposed to get a repeat echocardiogram, will await result with focus on his PAP. Will also order a 6MWT If echo is unchanged, will arrange for cardio-pulmonary exercise testing which could distinguish between pulmonary and heart disease. Will also check for [id number] levels. Follow up: 5-6 weeks Thank you for the referral Patient was seen for a total of 45 minutes, with 35 minutes of that time spent in discussion with the patient regarding his current clinical condition, test results, and further management. Martín Davis MD Pulmonary and Critical Care Medicine Pager #[phone] documented in this encounter Plan of Treatment Not on file documented as of this encounter Results * Pulmonary Function Testing (10/25/2017 1:48 PM EST) Narrative London Hoang Jr., MD - 10/25/2017 1:48 PM EST London Hoang Jr., MD ? 10/25/2017 ??1:48 PM Pulmonary Function Testing Oxygen saturation is adequate at rest, without evidence of ambulatory oxygen desaturation. ??Six minute walk distance is 456 meters. London Hoang MD Pulmonary Medicine Martín Davis MD PFT ORDERABLES documented in this encounter Visit Diagnoses Diagnosis DELVALLE (dyspnea on exertion) Other dyspnea and respiratory abnormality DELVALLE (dyspnea on exertion) Other dyspnea and respiratory abnormality documented in this encounter Care Teams Distribution Technician Relationship Specialty Start Date End Date Linda Mccray MD [address] [place] [address] PCP - General Family Medicine 10/20/16 documented as of this encounter
--- OUTSIDE RECORDS SUMMARY | 2024-07-17 21:51 | XMS_ITS | Encounter Summary ---
[place] [address] Care Team Providers Care Kinesiologist Name Role Phone Linda Mccray MD Primary Care Provider [phone] Encounter Details Date Type Department Care Team (Late st Contact Info) Description 07/19/2017 Telephone [place] [phone] [place] Social History Tobacco Use Types Packs/Day Years [...] encounter Miscellaneous Notes * Telephone Encounter - [place] - 07/19/2017 8:18 AM EDT Requested CXR, blood work, and PFT's from [place] for Dr Sagastume documented in this encounter Plan of Treatment Not on file documented as of this encounter Visit Diagnoses Not on filedocumented in this encounter Care Teams Kinesiologist Relationship Specialty Start Date End Date Linda Mccray MD [address] [place] [address] PCP - General Family Medicine 10/20/16 documented as of this encounter
--- OUTSIDE RECORDS SUMMARY | 2024-07-17 21:51 | XMS_ITS | Encounter Summary ---
Author Organization [facility] [place] [address] Care Team Providers Care Charge Nurse Name Role Phone Linda Mccray MD Primary Care Provider [phone] Encounter Details Date Type Department Care Team (Late st Contact Info) Description 03/04/2021 Ancillary Procedure Radiology Library at [facility] [place] [phone] Navin Khalil MD [facility] [place] [address] Social History Tobacco Use Types Packs/Day Years [...] FILM LIBRARY STORAGE ONLY DX CHEST Routine 03/04/2021 12:00 AM EDT documented in this encounter Results * Film Library- Storage Only DX Chest (03/04/2021 12:00 AM EDT) Narrative [facility] - 03/05/2021 8:54 AM EDT This exam is auto-finalizing. It's purpose is for storage only. Navin Khalil MD [facility] FILM LIBRARY ORD ERABLES [place], [place] documented in this encounter Visit Diagnoses Not on filedocumented in this encounter Care Teams Charge Nurse Relationship Specialty Start Date End Date Linda Mccray MD [address] [place] [address] PCP - General Family Medicine 10/20/16 documented as of this encounter
--- OUTSIDE RECORDS SUMMARY | 2024-07-17 21:51 | XMS_ITS | Encounter Summary ---
Author Organization [facility] [place] [address] Care Team Providers Care Owner/Photographer Name Role Phone Linda Mccray MD Primary Care Provider [phone] Encounter Details Date Type Department Care Team (Late st Contact Info) Description 03/05/2021 7:57 PM EDT Anesthesia Event [place] [phone] Dominic Reees MD [facility] [place] [address] Anesthesia Record Procedure Summary Procedure Name Responsible Anesthesiologist Anesthesia Start Time Anesthesia Stop Time @THORACOSCOPY, SURG; W/THERAPEUTIC WEDGE RESECTION, INIT UNILATERAL (WRVU 14.5) (Left: Chest) Events No events on file. Meds * Agents No agents on file. * Blood No blood administrations on file. Lines, Drains, and Airways No LDAs on file. documented in this encounter Social History Tobacco [...] of this encounter OR Notes * Anesthesia Preprocedure Evaluation - Dominic Reese MD - 03/05/2021 5:26 PM EDT Pre-Anesthesia Evaluation for: London Neri a 70 y.o. male. Procedure(s): @THORACOSCOPY, SURG; W/THERAPEUTIC WEDGE RESECTION, INIT UNILATERAL (WRVU 14.5) @THORACOSCOPY, SURG; W PLEURODESIS (WRVU 10.83) BRONCHOSCOPY, DIAGNOSTIC (WRVU 2.78) Patient Active Problem List Diagnosis ??? Recurrent spontaneous pneumothorax ??? Pacemaker complications, initial encounter ??? Near syncope ??? Pacemaker - dual lead Medtronic ??? Pacemaker battery depletion Added automatically from request for surgery [id number] ??? Chronic bullous emphysema ??? Clostridium difficile [...] 4.67) performed by Lena Clark MD at [facility] Social History Tobacco Use ??? Smoking [...] 1.7 oz) Last edited 03/05/21 1700 by Currently displaying vitals information from multiple entries within 90 minutes of most recent vitals. Airway Assessment: Cardiovascular Assessment: Pulmonary Assessment: Dental Assessment: Misc Assessment: Patient is wearing No contact(s). IV access: Peripheral line Other exam findings: TTE (07/13/20): LVEF 60%, no RWMA, valves well seated, functioning well. Last Filed Perioperative Cognitive Screening None Anesthesia Plan: ASA 3 general, with a(n) intravenous induction PRELIMINARY NOTE 70yoM former smoker w h/o AVR, MVR (warfarin; INR 2.1 today), s/p PM, and w recurrent PTX who was transferred to [facility] for definitive mgt of recurrent L PTX that is s/p chest tube w continued air leak. Plan GA, RAY, will discuss warfarin reversal with surgeon and bridging with hep gtt postoperatively. Region - Intrathoracic Non-Cardiac Informed Consent: PAT Clinic Note documented in this encounter Plan of Treatment Not on file documented as of this encounter Visit Diagnoses Not on filedocumented in this encounter Care Teams Owner/Photographer Relationship Specialty Start Date End Date Linda Mccray MD [address] [place] [address] PCP - General Family Medicine 10/20/16 documented as of this encounter
--- OUTSIDE RECORDS SUMMARY | 2024-07-17 21:51 | XMS_ITS | Encounter Summary ---
Author Organization [facility] [place] [address] Care Team Providers Care Airplane Dispatch Clerk Name Role Phone Linda Mccray MD Primary Care Provider [phone] Reason for Visit * Reason Comments Hospital Transfer Shortness of Breath * Auth/Cert Specialty Diagnoses / Procedures Referred By Contac t Referred To Contact Diagnoses Recurrent spontaneous pneumothorax LARGE LEFT PNEUMOTHORAX Referral ID Status Reason Start Date Expiration Date Visits Re quested Visits Authorized [id number] 1 1 Encounter Details Date Type Department Care Team (Late st Contact Info) Description 03/06/2021 7:45 AM EDT - 03/06/2021 10:27 AM EDT Surgery [place] [id number] Kendall Khalil MD [facility] [place] [address] @THORACOSCOPY, SURG; W/RESC-PLICATION EMPHYSEMATOUS LUNG, UNILATERAL (WRVU 27) Social History Tobacco Use Types Packs/Day Years [...] Sign Reading Time Taken Comments Blood Pressure 123/65 03/06/2021 7:41 AM EDT Pulse 80 03/05/2021 3:13 PM EDT Temperature 36.6 ??C (97.9 ??F) 03/06/2021 7:41 AM ED T Respiratory Rate 18 03/06/2021 7:41 AM EDT Oxygen Saturation 91% 03/06/2021 7:41 AM EDT Inhaled Oxygen Concentration - - Weight 76.4 kg (168 lb 6.4 oz) 03/06/2021 7:08 A M EDT Height 185.4 cm (6' 1) 03/05/2021 [...] depletion Added automatically from request for surgery [id number] ??? Chronic bullous emphysema ??? Clostridium difficile colitis ??? Encounter for screening colonoscopy Operations/Major Procedures: Operations: Case Date: 03/09/2021 Surgeon: Surgeon(s) and Role: * Kendall Khalil MD - Primary * Ashanti May MD - Resident Procedure: Procedure(s): @THORACOTOMY WEXPL,CONTROL BLDNG (WRU 25.28) @THORACOSCOPY, SURG; W PART. DECORTICATION (WRU 18.78) Other Major Procedures: 03/09/21: Re-operation for left hemothorax s/p LVATS washout with control of bleeding and evacuationof clot. History of Presentation: London Neri is a 70 y.o. male with PMHx significant for recurrent spontaneous pneumothorax, CHF,mitral and aortic mechanical valves (both placed 1998, on coumadin), s/p pacemaker who presents as transfer from [facility] for surgical treatment of recurrent spontaneous left pneumothorax. ?? Reports sudden onset of SOB on Monday which he knew felt like his prior ptx and presented to [facility] for treatment. Hospitalized at [facility] from 03/03 until today when he was transferred to [facility] for further management of his recurrent PTX. Had L-sided CT placed at [facility], with continuous air-leak since admission. Pt reports this is his fourth ptx, first occurred 2 years ago after multiple broken ribs in curred by slip and fall on ice. The 2nd and 3rd ptx were non-traumatic and one was attributed to lifting heavy item. Since CT placed at [facility] SOB has improved. ?? Coumadin last taken morning of 03/04/21. Normal coumadin dose 10mg qd. He last ate at noon today. ?? On assessment in the ED: He is HDS, on RA and in no distress. He endorses no complaints. Hospital Course: London Neri was admitted to [facility] on 03/05/2021 viathe ED. He was brought [...] Monday03/15/21. Primary Care Doctor: Linda Mccray MD [phone] [facility] Anticoagulation Clinic: [phone] Warfarin (Coumadin??) should be taken at the same time every day, usually at 5pm. Your next INR should be scheduled on: Monday AM March 15, 2021 by Provider listed below Provider/Team responsible for your outpatient Coumadin?? (warfarin) management: Primary Care Physician/Anticoagulation Clinic at [facility]. ??? If you have not received [...] a nurse in the Thoracic Clinic at [phone]. After hours or on weekends or holidays please call: [phone] and ask to speak to the Thoracic [...] the Thoracic Clinic or the Thoracic Surgeon station air traffic control specialist after hours. Please take over the counter [...] Where can you learn more? Visit our [employer] information library at [email or web address] You can also view health information on [employer], your personal patient account. Log in or sign uptoday. Enter U010 in the search box to learn more about Learning About Indwelling Urinary Catheter Care to Prevent Infection. Current as of: April 20, 2020?Content Version: 12.8 ?? NEXGRID. Care instructions adapted under license by [facility]. If you have questions about a medical condition or this instruction, always ask your healthcare professional. [employer]EX[employer] disclaims any warranty or liability for your [...] Where can you learn more? Visit our [employer] information library at [email or web address] You can also view health information on [employer], your personal patient account. Log in or sign uptoday. Enter X535 in the search box to learn more about Learning About How to Care for a Person's Indwelling Urinary Catheter. Current as of: May 08, 2020?Content Version: 12.8 ?? 1373-4461 NEXGRID. Care instructions adapted under license by [facility]. If you have questions about a medical condition or this instruction, always ask your healthcare professional. N[employer] disclaims any warranty or liability for your use of this information. Future Appointments and Orders Future Orders Complete By Expires XR Chest PA & Lateral (Generic) [12910 16352 Custom] 03/27/2021 (Approximate) 03/13/2022 Process Instructions: Scheduling Instructions: Questions: Where will study be performed?: [facility] Radiology Portable exam?: Reason for exam and clinical history: s/p LVATS partial decort, blebectomy, talc pleurodesis c/b hemothorax s/p re-op LVATS washout Clinical information / sunshine questions: PTX, effusion, lung appostion, comparison Stat read required?: Date of injury if applicable: Requested Time: Walker standard [EQ135 Custom] As directed Process Instructions: Scheduling Instructions: Comments: London Neri [address] [facility] [address] (home) [phone] (mobile) Diagnosis: deconditioning with Unsteady gait Significant weakness, ataxia or gait abnormality Patient's: Hgt: Ht Readings from Last 1 Encounters: 03/05/21 : 185.4 cm (6' 1) ? Wgt: Wt Readings from Last 1 Encounters: 03/13/21 : 81.6 kg (180 lb) VENDOR: [facility] Ordering: Front wheel walker Deliver to 's hospital room #: 327A Questions: Vendor Name/Contact information: [facility] Provider Contact Information: Primary Care Provider: Linda Mccray MD [phone] Discharge References/Attachments: Discharge References/Attachments None For questions regarding this document or issues relating to this hospitalization on the Thoracic Surgery Service, please contact Dr. Khalil's office at . Signed: Jeff Almendarez MD 03/13/2021 CC: PCP: Linda Mccray MD Referring: Marii Kenyon Md [address] [place] [address] documented in this encounter Discharge Instructions * [...] Where can you learn more? Visit our Love [employer] information library at [email or web address] You can also view health information on Car[employer]umer, your personal patient account. Log in or sign uptoday. Enter U010 in the search box to learn more about Learning About Indwelling Urinary Catheter Care to Prevent Infection. Current as of: April 20, 2020?Content Version: 12.8 ?? 3269-9094 NEXGRID. Care instructions adapted under license by [facility]. If you have questions about a medical condition or this instruction, always ask your healthcare professional. NEXGRID disclaims any warranty or liability for your [...] Where can you learn more? Visit our Love [employer] information library at [email or web address] You can also view health information on [employer]umer, your personal patient account. Log in or sign uptoday. Enter X535 in the search box to learn more about Learning About How to Care for a Person's Indwelling Urinary Catheter. Current as of: May 08, 2020?Content Version: 12.8 ?? NEXGRID. Care instructions adapted under license by [facility]. If you have questions about a medical condition or this instruction, always ask your healthcare professional. NEXGRID disclaims any warranty or liability for your [...] Monday03/15/21. Primary Care Doctor: Linda Mccray MD [phone] [facility] Anticoagulation Clinic: [phone] Warfarin (Coumadin??) should be taken at the same time every day, usually at 5pm. Your next INR should be scheduled on: Monday AM March 15, 2021 by Provider listed below Provider/Team responsible for your outpatient Coumadin?? (warfarin) management: Primary Care Physician/Anticoagulation Clinic at [facility]. ??? If you have not received [...] a nurse in the Thoracic Clinic at [phone]. After hours or on weekends or holidays please call: [phone] and ask to speak to the Thoracic [...] the Thoracic Clinic or the Thoracic Surgeon station air traffic control specialist after hours. Please take over the counter [...] that they were unable to bean picker patient's Lovenox from pharmacy after patient was discharged, and that the pharmacy is now closed. With assistance from Dr. Jeff Almendarez, was able to arrange for patient to present at ED in [facility] to receive his 80 mg dose of Lovenox this evening and bean picker his regular prescription on Monday morning [...] from the original note were not included. [facility] Department of Thoracic Surgery Inpatient Progress Note Patient Name: London Neri Patient : 1950 Patient Patient Location: [address] [place] [address]-A Attending Surgeon: KENNETH NEWBY DAVID J ID: [...] to Hosp-Admission (Current) from 03/05/2021 in 3 [facility] Office Visit from 08/10/2020 in Cardiology at [facility] Weight 81.7 kg (180 lb 3.2 [...] May MD 03/12/2021 Thoracic Surgery Service Pager [phone] * Mayra Scales, BOILER BLOWER - 03/12/2021 11:55 AM EDT Physical Therapy Note Treatment Number PT: 2 Patient profile: London Neri??is a 70 y.o.??male admittted 03/05/21??with PMHx significant for recurrent spontaneous pneumothorax, CHF, mitral and aortic mechanical valves (both placed 1998, on coumadin), s/p pacemaker who presents as transfer from [facility] for surgical treatment of recurrent spontaneous left pneumothorax. ?? Reports sudden onset of SOB on Monday which he knew felt like his prior ptx and presented to [facility] for treatment. ??Hospitalized at [facility] from 03/03 until today when he was transferred to [facility] for further management of his recurrent PTX. Had L-sided CT placed at [facility], with continuous air-leak sinceadmission. Pt reports this is his fourth ptx, first occurred 2 years ago after multiple broken ribsincurred by slip and fall on ice. The 2nd and 3rd ptx were non-traumatic and one was attributed to lifting heavy item. Since CT placed at [facility] SOB has improved. S/p L VATS partial [...] episode; Anemia (HGB 7.3). Pacemaker. Lines: Goldsmith, DMITRIY, naye Mobility and Positioning Recommendations: ?? Pt [...] (TE-F x 2) MAYRA SCALES PTA Pager: [phone] Physical Therapy Inpatient Rehabilitation Department * Avril [...] at Bedside, Bed Alarm Set * Malorie Mccauley, SYSTEMS LIBRARIAN - 03/11/2021 9:53 AM EDT [facility] Department of Thoracic Surgery Inpatient Progress Note Patient Name: London Neri Patient : 1950 Patient Patient Location: [address] [place] [address] Attending Surgeon: KENNETH NEWBY DAVID J ID: [...] to Hosp-Admission (Current) from 03/05/2021 in 3 [facility] Office Visit from 08/10/2020 in Cardiology at [facility] Weight 59.6 kg (131 lb 4.8 [...] QTC Calculated (Bezet) 526 ms Calculated P Shallowater 43 degrees Calculated R Shallowater -63 degrees Calculated T Shallowater 62 degrees INTERPRETATION Atrial-sensed ventricular-paced rhythm Underlying normal sinus rhythm Abnormal ECG When compared with ECG of 05-MAR-2021 15:30, Vent. rate has increased BY 19 BPM Confirmed by Devonte Newsome ([id number]) on 03/08/2021 4:10:26 PM ABO/Rh Typing Result Value Ref Range ABORh Type A Neg Antibody screen Result Value Ref Range Ab Screen Interp Negative Expires at 2359 on: 03/11/2021 ABORH Recheck Status Result Value Ref Range ABORH Type Recheck Completed Type and Screen Validity Result Value Ref Range T&S only valid at [facility] Hemogram Result Value Ref Range WBC [...] OOB. Dispo: full code, floor status Malorie Mccauley SYSTEMS LIBRARIAN 03/11/2021 Thoracic Surgery Service Pager [phone] * Lexie Cordova - 03/10/2021 9:57 PM [...] PM EDT Physical Therapy Evaluation Patient profile: Lodnon Neri is a 70 y.o. male admittted 03/05/21 with PMHx significant for recurrent spontaneous pneumothorax, CHF, mitral and aortic mechanical valves (both placed 1998, on coumadin), s/p pacemaker who presents as transfer from [facility] for surgical treatment of recurrent spontaneous left pneumothorax. ?? Reports sudden onset of SOB on Monday which he knew felt like his prior ptx and presented to [facility] for treatment. Hospitalized at [facility] from 03/03 until today when he was transferred to [facility] for further management of his recurrent PTX. Had L-sided CT placed at [facility], with continuous air-leak since admission. Pt reports this is his fourth ptx, first occurred 2 years ago after multiple broken ribs in curred by slip and fall on ice. The 2nd and 3rd ptx were non-traumatic and one was attributed to lifting heavy item. Since CT placed at [facility] SOB has improved. S/p L VATS partial [...] 2.78) performed by Kendall Khalil MD at [facility] MAIN OR ??? PRO COLONOSCOPY, REMV LESN, SNARE N/A 01/26/2017 COLONOSCOPY, POLYPECTOMY, REMOVAL LESION BY SNARE (WRVU 4.67) performed by Lena Clark MD at [facility] ENDOSCOPY ??? PRO THORACOSCOPY SURG PART PULM DECORT Left 03/06/2021 @THORACOSCOPY, SURG; W PART. DECORTICATION (WRVU 18.78) performed by Kendall Khalil MD at [facility] MAIN OR ??? PRO THORACOSCOPY SURG W/PLEURODESIS Left 03/06/2021 @THORACOSCOPY, SURG; W PLEURODESIS (WRVU 10.83) performed by Kendall Khalil MD at [facility] MAIN OR ??? PRO THORACOSCOPY W RESECTION-PLICATION EMPHYSEMA LUNG UNILATERAL Left 03/06/2021 @THORACOSCOPY, SURG; W/RESC-PLICATION EMPHYSEMATOUS LUNG, UNILATERAL (WRVU 27) performed by Kendall Khalil MD at [facility] MAIN OR Active Non-Hospital Problems Diagnosis ??? [...] episode; Anemia (HGB 7.6). Pacemaker. Lines: Goldsmith, DMITRIY, naye Mobility and Positioning Recommendations: ?? Pt. [...] B shoulders at least 3/5 and good customer supply coordinator. B ankles and knees 4-4+/5. Sensory: denies [...] outlinedin this evaluation. Time IN / OUT: 3060-5826 Total Minutes, Physical Therapy: 25 (Mod EV) RUMA BONE, PT Pager: [phone] Physical Therapy Inpatient Rehabilitation Department * Joseph Vidales OT - 03/10/2021 1:40 PM EDT Occupational [...] 2.78) performed by Kendall Khalil MD at [facility] MAIN OR ??? PRO COLONOSCOPY, REMV LESN, SNARE N/A 01/26/2017 COLONOSCOPY, POLYPECTOMY, REMOVAL LESION BY SNARE (WRVU 4.67) performed by Lena Clark MD at [facility] ENDOSCOPY ??? PRO THORACOSCOPY SURG PART PULM DECORT Left 03/06/2021 @THORACOSCOPY, SURG; W PART. DECORTICATION (WRVU 18.78) performed by Kendall Khalil MD at [facility] MAIN OR ??? PRO THORACOSCOPY SURG W/PLEURODESIS Left 03/06/2021 @THORACOSCOPY, SURG; W PLEURODESIS (WRVU 10.83) performed by Kendall Khalil MD at [facility] MAIN OR ??? PRO THORACOSCOPY W RESECTION-PLICATION EMPHYSEMA LUNG UNILATERAL Left 03/06/2021 @THORACOSCOPY, SURG; W/RESC-PLICATION EMPHYSEMATOUS LUNG, UNILATERAL (WRVU 27) performed by Kendall Khalil MD at [facility] MAIN OR Social History: Patient lives w/ [...] Perception: ?? WNL/WFL ?? 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 Pager: [phone] Joseph Vidales OT 03/10/2021 Occupational Therapy Rehabilitation [...] dizziness due to acute blood loss anemia. [facility] Department of Thoracic Surgery Inpatient Progress Note Patient Name: London Neri Patient : 1950 Patient Patient Location: [address] [place], [place] [address] Attending Surgeon: KENNETH NEWBY DAVID J ID: [...] to Hosp-Admission (Current) from 03/05/2021 in 3 [facility] Office Visit from 08/10/2020 in Cardiology at [facility] Weight 82 kg (180 lb 12.8 [...] QTC Calculated (Bezet) 526 ms Calculated P Shallowater 43 degrees Calculated R Shallowater -63 degrees Calculated T Shallowater 62 degrees INTERPRETATION Atrial-sensed ventricular-paced rhythm Underlying normal sinus rhythm Abnormal ECG When compared with ECG of 05-MAR-2021 15:30, Vent. rate has increased BY 19 BPM Confirmed by Devonte Newsome ([id number]) on 03/08/2021 4:10:26 PM ABO/Rh Typing Result Value Ref Range ABORh Type A Neg Antibody screen Result Value Ref Range Ab Screen Interp Negative Expires at 2359 on: 03/11/2021 ABORH Recheck Status Result Value Ref Range ABORH Type Recheck Completed Type and Screen Validity Result Value Ref Range T&S only valid at [facility] Hemogram Result Value Ref Range WBC [...] May MD 03/10/2021 Thoracic Surgery Service Pager [phone] * Myrna Ludwig APRN - 03/10/2021 8:35 AM EDT Cardiac Device Remote Monitoring Report Summary Medtronic Prysm 03/10/21 Device: Pacemaker Model: Haines Battery: 3.10 v, estimated longevity ~10.5 years Pacing percentage: AP 0.2%, FIRE EQUIPMENT REPAIRER INSPECTOR 99.9% Current EGM: ,AR/FIRE EQUIPMENT REPAIRER INSPECTOR. Atrial rate 240 bpm, ventricular rate 60 bpm. Events: AT/AF >=6 hr for 1 day. Patient activity less than 1 hr/day for 1 week Atrial high rate events: 1 AT/AF since 03/09/21 @ 10:55am, episode in progress. AT/AF [place] 10.8%. Rate histogram: Time in AT/AF = [...] in-clinic and remote Myrna Ludwig APRN Pager [phone] * Ross Mohan RN - 03/09/2021 7:42 [...] factors per assessment: [current deficits]: Generalized weakness, Fathsf19-okesq of OR, pain, dizziness, medications, hospitalization and [...] was informed to hold. Page out to [phone] to clarify, Call returned to clarify the ok to give the Heparin and ASA. Given per MD order. * Pardeep Lima PA - 03/09/2021 2:48 PM EDT [facility] Department of Thoracic Surgery Inpatient Post Op Check Note Patient Name: London Neri Patient : 1950 Patient Patient Location: [address] [place] [address] Attending Surgeon: KENNETH NEWBY DAVID J ID: [...] to Hosp-Admission (Current) from 03/05/2021 in 3 [facility] Office Visit from 08/10/2020 in Cardiology at [facility] Weight 79.7 kg (175 lb 11.2 [...] QTC Calculated (Bezet) 526 ms Calculated P Shallowater 43 degrees Calculated R Shallowater -63 degrees Calculated T Shallowater 62 degrees INTERPRETATION Atrial-sensed ventricular-paced rhythm Underlying normal sinus rhythm Abnormal ECG When compared with ECG of 05-MAR-2021 15:30, Vent. rate has increased BY 19 BPM Confirmed by Devonte Newsome ([id number]) on 03/08/2021 4:10:26 PM ABO/Rh Typing Result Value Ref Range ABORh Type A Neg Antibody screen Result Value Ref Range Ab Screen Interp Negative Expires at 2359 on: 03/11/2021 ABORH Recheck Status Result Value Ref Range ABORH Type Recheck Completed Type and Screen Validity Result Value Ref Range T&S only valid at [facility] Hemogram Result Value Ref Range WBC [...] [place] Torres 03/09/2021 Thoracic Surgery Service Pager [phone] * Ross Mohan RN - 03/09/2021 2:20 [...] from the original note were not included. [facility] Department of Thoracic Surgery Inpatient Progress Note [facility] [address] [facility] [address] [place], [place] [address] FAX: Patient Name: London Neri Patient : 1950 Patient Patient Location: [address] [place] [address] Thoracic surgery attending: Dr. Khalil HPI: London Neri is a 70 y.o. male with PMHx significant for recurrent spontaneous pneumothorax, chronic CHF, mitral and aortic mechanical valves (both placed 1998, on coumadin), s/p pacemaker who presents as transfer from [facility] for surgical treatment of recurrent spontaneous left pneumothorax. Reports sudden onset of SOB on Monday which he knew felt like his prior ptx and presented to [facility] for treatment. Hospitalized at [facility] from 03/03 until today when he was transferred to [facility] for further management of his recurrent PTX. Had L-sided CT placed at [facility], with continuous air-leak since admission. Pt reports this is his fourth ptx, first occurred 2 years ago after multiple broken ribs in curred by slip and fall on ice. The 2nd and 3rd ptx were non-traumatic and one was attributed to lifting heavy item. Since CT placed at [facility] SOB has improved. Coumadin last taken morning [...] to Hosp-Admission (Current) from 03/05/2021 in 3 [facility] Office Visit from 08/10/2020 in Cardiology at [facility] Weight 79.7 kg (175 lb 11.2 [...] QTC Calculated (Bezet) 526 ms Calculated P Shallowater 43 degrees Calculated R Shallowater -63 degrees Calculated T Shallowater 62 degrees INTERPRETATION Atrial-sensed ventricular-paced rhythm Underlying normal sinus rhythm Abnormal ECG When compared with ECG of 05-MAR-2021 15:30, Vent. rate has increased BY 19 BPM Confirmed by Devonte Newsome ([id number]) on 03/08/2021 4:10:26 PM ABO/Rh Typing Result Value Ref Range ABORh Type A Neg Antibody screen Result Value Ref Range Ab Screen Interp Negative Expires at 4782 on: 03/11/2021 ABORH Recheck Status Result Value Ref Range ABORH Type Recheck Completed Type and Screen Validity Result Value Ref Range T&S only valid at [facility] Hemogram Result Value Ref Range WBC [...] May MD 03/09/2021 Thoracic Surgery Service Pager [phone] * Margarita Becerra, PT - 03/09/2021 8:01 AM EDT Physical Therapy 03/09/21 0801 Physical Therapy Time and Intention Document Type contact Mode of Treatment physical therapy Total Minutes, Physical Therapy 0 Comment, Session Not Performed Pt being taken to the OR urgently for exploratory thoracotomy. PT tofollow post-op per MD orders. MARGARITA BECERRA, PT Pager # [phone] In-Pt Rehab Medicine * Freya Cedeño MSW - 03/08/2021 2:57 PM EDT MARINE SURVEYOR received call from pt's . She reports that the pt goes by Gonzalo. She was able to provide thefollowing information: - Pt lives at address on file; several steps to enter the apartment and then single floor living. 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 MARINE SURVEYOR informed her that MD will also call by the end of the day. reports that her cell phone is not working and she is available at the house number. Received second call around 3pm: - stating that she will be coming to [facility] and is asking about local hotels. MARINE SURVEYOR informed of [employer] ([facility] currently closed). interested in staying at [facility]. MARINE SURVEYOR phone call to [employer] ([phone]), they report that they have availability. MARINE SURVEYOR phone call to , provided her with [...] SpO2 92 % Joseph Vidales OT Pager: [phone] * Margarita Becerra, PT - 03/08/2021 2:00 PM EDT Physical [...] deferred until tomorrow MARGARITA BECERRA, PT Pager [phone] In-Pt Rehab Medicine * Ashanti May MD [...] - 03/08/2021 10:59 AM EDT London Neri [id number] 1950 Additional Information: patient on bedside commode, staff with patient at time of fall but not ableto catch patient. Patient reported nausea and dizziness, then patient lunged forward, fell onto floor, hit head. Patient endorses LOC/passing out while on bedside commode, before hitting floor. Date of Fall: 03/08/2021 Time of Fall: 113 Unit/Location: [facility] Room Number: [id number] Provide a brief [...] small localized frontal head swelling and cut. LOGGING CREW SUPERVISOR called?: No Suspected intentional fall?: No Was [...] from the original note were not included. [facility] Department of Thoracic Surgery Inpatient Progress Note [facility] [address] [facility] [address] [place], [place] [address] FAX: Patient Name: London Neri Patient : 1950 Patient Patient Location: [address] [place] [address] Thoracic surgery attending: Dr. Khalil HPI: London Neri is a 70 y.o. male with PMHx significant for recurrent spontaneous pneumothorax, chronic CHF, mitral and aortic mechanical valves (both placed 1998, on coumadin), s/p pacemaker who presents as transfer from [facility] for surgical treatment of recurrent spontaneous left pneumothorax. Reports sudden onset of SOB on Monday which he knew felt like his prior ptx and presented to [facility] for treatment. Hospitalized at [facility] from 03/03 until today when he was transferred to [facility] for further management of his recurrent PTX. Had L-sided CT placed at [facility], with continuous air-leak since admission. Pt reports this is his fourth ptx, first occurred 2 years ago after multiple broken ribs in curred by slip and fall on ice. The 2nd and 3rd ptx were non-traumatic and one was attributed to lifting heavy item. Since CT placed at [facility] SOB has improved. Coumadin last taken morning [...] to Hosp-Admission (Current) from 03/05/2021 in 3 [facility] Office Visit from 08/10/2020 in Cardiology at [facility] Weight 79.7 kg (175 lb 11.2 [...] QTC Calculated (Bezet) 524 ms Calculated P Shallowater 30 degrees Calculated R Shallowater -103 degrees Calculated T Shallowater 62 degrees INTERPRETATION Atrial-sensed ventricular-paced rhythm Abnormal ECG When compared with ECG of 11-SEP-2007 16:25, Ventricular-paced rhythm is now present Confirmed by MD Emelina, Jordana Blanca ([id number]) on 03/07/2021 3:16:02 PM COVID-19 PCR Specimen: Nasopharyngeal Swab Symptoms->Surveillance Result Value Ref Range Rapid SARS-CoV-2 RNA Not Detected Not Detected SARS-CoV-2 Source PATIENT CARE PROVIDER Swab Prothrombin Time Result Value Ref Range [...] Value Ref Range T&S only valid at [facility] Prothrombin Time Result Value Ref Range [...] [place] Chaudhry 03/08/2021 Thoracic Surgery Service Pager [phone] * Avril East RN - 03/07/2021 5:32 [...] maintained, clear yellow urine throughout shift. LBM BOILER BLOWER, bowel meds given. OOB to walk aroundunit [...] Report called to Avril JIN, transferred to [facility] * Hardeep Cool DO - 03/06/2021 [...] RNA Not Detected Not Detected SARS-CoV-2 Source PATIENT CARE PROVIDER Swab Prothrombin Time Result Value Ref Range [...] Value Ref Range T&S only valid at [facility] Prothrombin Time Result Value Ref Range [...] PM EDT Cardiac Device Interrogation London Neri [id number] 03/06/2021 History: Mr. Neri is a 70 yo male with a history of HTN, mechanical aortic and mitral valve [id number], on chronic Coumadin with INR goal 2.5-3.5, [...] requiring chest tube placement, who presented to [facility] on 03/05/2021s transfer from [facility] for surgical treatment of recurrent spontaneous left pneumothorax. He underwent Left VATS partial decortication, blebectomy and talc pleurodesis on 03/06/2021. We were asked to interrogate device following intraoperative magnet application and ventricular tachycardia reported on telemetry frantz-procedurally. 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 [facility] Department of Thoracic Surgery Inpatient Progress Note [facility] [address] [facility] [address] [place] [address] FAX: Patient Name: London Neri Patient : 1950 Patient Patient Location: [address] [place] [address] Thoracic surgery attending: Dr. Khalil HPI: London Neri is a 70 y.o. male with PMHx significant for recurrent spontaneous pneumothorax, CHF,mitral and aortic mechanical valves (both placed 1998, on coumadin), s/p pacemaker who presents as transfer from [facility] for surgical treatment of recurrent spontaneous left pneumothorax. Reports sudden onset of SOB on Monday which he knew felt like his prior ptx and presented to [facility] for treatment. Hospitalized at [facility] from 03/03 until today when he was transferred to [facility] for further management of his recurrent PTX. Had L-sided CT placed at [facility], with continuous air-leak since admission. Pt reports this is his fourth ptx, first occurred 2 years ago after multiple broken ribs in curred by slip and fall on ice. The 2nd and 3rd ptx were non-traumatic and one was attributed to lifting heavy item. Since CT placed at [facility] SOB has improved. Coumadin last taken morning [...] to Hosp-Admission (Current) from 03/05/2021 in 3 [facility] Office Visit from 08/10/2020 in Cardiology at [facility] Weight 76.4 kg (168 lb 6.4 [...] QTC Calculated (Bezet) 524 ms Calculated P Shallowater 30 degrees Calculated R Shallowater -103 degrees Calculated T Shallowater 62 degrees INTERPRETATION Atrial-sensed ventricular-paced rhythm Abnormal ECG When compared with ECG of 11-SEP-2007 16:25, Electronic ventricular pacemaker has replaced Sinus rhythm COVID-19 PCR Specimen: Nasopharyngeal Swab Symptoms->Surveillance Result Value Ref Range Rapid SARS-CoV-2 RNA Not Detected Not Detected SARS-CoV-2 Source PATIENT CARE PROVIDER Swab Prothrombin Time Result Value Ref Range [...] Value Ref Range T&S only valid at [facility] Prothrombin Time Result Value Ref Range [...] and airleak, pulmonary toilet - IS/cough/deep breathe MARLENA: regular diet, MIVF, RBOs - senna, colace [...] [place] Lea 03/07/2021 Thoracic Surgery Service Pager [phone] * Rubén Bone PA - 03/06/2021 8:29 AM EDT Images from the original note were not included. [facility] Department of Thoracic Surgery Inpatient Progress Note [place] [address] FAX: Patient Name: London Neri Patient : 1950 Patient Patient Location: [address] [place] [address] Thoracic surgery attending: Dr. Khalil HPI: London Neri is a 70 y.o. male with PMHx significant for recurrent spontaneous pneumothorax, CHF,mitral and aortic mechanical valves (both placed 1998, on coumadin), s/p pacemaker who presents as transfer from [facility] for surgical treatment of recurrent spontaneous left pneumothorax. Reports sudden onset of SOB on Monday which he knew felt like his prior ptx and presented to [facility] for treatment. Hospitalized at [facility] from 03/03 until today when he was transferred to [facility] for further management of his recurrent PTX. Had L-sided CT placed at [facility], with continuous air-leak since admission. Pt reports this is his fourth ptx, first occurred 2 years ago after multiple broken ribs in curred by slip and fall on ice. The 2nd and 3rd ptx were non-traumatic and one was attributed to lifting heavy item. Since CT placed at [facility] SOB has improved. Coumadin last taken morning [...] to Hosp-Admission (Current) from 03/05/2021 in 3 [facility] Office Visit from 08/10/2020 in Cardiology at [facility] Weight 77.1 kg (170 lb) 1 [...] QTC Calculated (Bezet) 524 ms Calculated P Shallowater 30 degrees Calculated R Shallowater -103 degrees Calculated T Shallowater 62 degrees INTERPRETATION Atrial-sensed ventricular-paced rhythm Abnormal ECG When compared with ECG of 11-SEP-2007 16:25, Electronic ventricular pacemaker has replaced Sinus rhythm COVID-19 PCR Specimen: Nasopharyngeal Swab Symptoms->Surveillance Result Value Ref Range Rapid SARS-CoV-2 RNA Not Detected Not Detected SARS-CoV-2 Source PATIENT CARE PROVIDER Swab Prothrombin Time Result Value Ref Range [...] Value Ref Range T&S only valid at [facility] Hosp Prothrombin Time Result Value Ref [...] [place] Lea 03/06/2021 Thoracic Surgery Service Pager [phone] * Ashanti May MD - 03/05/2021 3:47 PM EDT [facility] Department of Thoracic Surgery Inpatient H&P Note [facility] [address] [place] [address] FAX: Patient Name: London Neri Patient : 1950 Patient Patient Location: ED10/ED10 B Thoracic surgery attending: Dr. Khalil HPI: London Neri is a 70 y.o. male with PMHx significant for recurrent spontaneous pneumothorax, CHF,mitral and aortic mechanical valves (both placed 1998, on coumadin), s/p pacemaker who presents as transfer from [facility] for surgical treatment of recurrent spontaneous left pneumothorax. Reports sudden onset of SOB on Monday which he knew felt like his prior ptx and presented to [facility] for treatment. Hospitalized at [facility] from 03/03 until today when he was transferred to [facility] for further management of his recurrent PTX. Had L-sided CT placed at [facility], with continuous air-leak since admission. Pt reports this is his fourth ptx, first occurred 2 years ago after multiple broken ribs incurred by slip and fall on ice. The 2nd and 3rd ptx were non-traumatic and one was attributed to lifting heavy item. Since CT placed at [facility] SOB has improved. Coumadin last taken morning [...] 4.67) performed by Lena Clark MD at [facility] ENDOSCOPY Medications: No outpatient medications have been [...] Gatherings with Friends and Family: ??? Attends Yazidism Services: ??? Active Member of Clubs or [...] Date ED from 03/05/2021 in Emergency Department [facility] Office Visit from 08/10/2020 in Cardiology at [facility] Weight 77.1 kg (170 lb) 1 [...] May MD 03/05/2021 Thoracic Surgery Service Pager [phone] documented in this encounter ED Notes * Ruma Kumar RN - 03/05/2021 7:09 PM EDT Pt O2 sats decrease when pt lying in bed. Boosted up in bed independently. O2 sats remained at 89. Pt placed on community health advisor at 2l/min. Pt then at 97% on community health advisor. Side Gluer removed after 2 mins and maintaing O2 sats at 90on RA. * Ruma Kumar RN - 03/05/2021 5:21 PM EDT BP cuff repositioned. Pt resting comfortably in bed. BP 112/81, P70, O2 92%. * uRma Kumar RN - 03/05/2021 3:32 PM EDT [...] appears in place. 3-4+ air leak on -[id number] Abd: Soft, non tender MSK: No peripheral [...] in place. Pt is stable. Dr. Khalil station air traffic control specialist and will admit and take pt to [...] maintained with adequate output. No acute events, WCTM PLAN MOVING FORWARD: D/C Planning INDIVIDUALIZED FALL [...] Type: *No Product type* / Secondary Insurance: [facility] Prescription Coverage: Yes Preferred Pharmacy: No Pharmacies Listed Last Physical Therapy Recommendation: (home with assistance and services TBD) with (likely none) Last Occupational Therapy Recommendation: home with supervision, home with supervision - [id number] Plan for discharge is: Home no needs Plan going forward: CM will continue to follow and assist with discharge planning and coordination of care as indicated. Anticipated Date of Discharge: 03/15/2021 Vanessa Anne, jacquard loom weaver Office of Care Management * Plan of Care - Lexie Cordova - 03/11/2021 6:00 AM EDT OUTCOME EVALUATION NOTE: OUTCOME SUMMARY: x2 CT to (L) side draining minimal serosang, maintained to atrium x2 with -20 water seal with continuous wall suction. CT insertion site dsgs x2 CDI. Independently performing IS. Goldmsith in place draining CYU. Tele continued, V [...] Type: *No Product type* / Secondary Insurance: [employer] [place] Prescription Coverage: yes Preferred Pharmacy: No Pharmacies Listed Plan for discharge is: TBD Plan going forward: CM will continue to follow and assist with discharge planning and coordination of care as indicated. Anticipated Date of Discharge: 03/12/2021 Vanessa Anne RN Case Parts Designer of Care Management Phone [phone] * Brief Op Note - Ashanti May MD - 03/09/2021 11:22 AM EDT Brief Operative Note Patient Name: London Neri : [id number] MR#: [id number] Case Date: 03/09/2021 Surgeon: Surgeon(s) and Role: [...] othersurfaces were oozing and we used the i-marker water bipolar cautery to obtain hemostasis throughout [...] pt not feeling well and stated that MARINE SURVEYOR could call . MSWleft voicemail for . Reason for Hospitalization: They repaired my left lung. Last COVID test: 03/05/21 1552 not detected Lab Results Component Value Date [id number] Not Detected 03/05/2021 Past medical History: Past Medical History: Diagnosis Date ??? C. difficile colitis ??? COPD (chronic obstructive pulmonary disease) ??? Emphysema of lung ??? Hemorrhoid ??? Pneumothorax on left Hospitalizations Within the Past 30 Days: other (see comments) (admitted to [facility] on 03/03, transferred to [facility] on 03/05) Current Decision-Making Capacity: Self Advance Care Planning: Attempt Cardiopulmonary Resuscitation - Inpatient Received -Advanced Directive: Yes, on file AD in eDH. Names Meredith Villarreal ([phone], ) as primary agent; names Loco Odell ([phone], , ) as secondary agent Current Functional [...] DME: none Home Address confirmed as: [address] [place] [address] Social & Family Supports: MARINE SURVEYOR left voicemail for pt's at home number; MARINE SURVEYOR phone call to mobile number and recording states that it is not in service Extended Emergency Contact Information Primary Emergency Contact: Meredith Villarreal [facility] Mobile Relation: Spouse Current Care [...] Type: *No Product type* / Secondary Insurance: [facility] Prescription Coverage: yes Preferred Pharmacy: unable to assess No Pharmacies Listed Status: Patient is a : No, registration status: at at %. Primary Care Provider: Linda Mccray MD [phone] Tirso Ghosh ([phone]) as PCP - need to clarify with [...] accessing necessary care and/or follow-up after discharge. MARINE SURVEYOR attempted to meet with pt on [facility]; pt reporting that he is not feeling well. Able to answer only a few questions before asking for his nurse. Based on chart review, pt had recently syncopal episode with +headstrike. MARINE SURVEYOR phone call to pt's to complete IA. Left a voicecmail asking for call back. Cell phone listed on [facility] not in service - will address with when call back is received. A member of the Care Management team will continue to monitor progress, follow for continuity of care and assist with transition of care planning. NIRMALA Khan Time Piece RepairerParts Designer of Care Management Pager: [phone] * Plan of Care - Gary Rodríguez [...] (Interventions Implemented as Appropriate) 03/08/2021148 by Gary Rodríguez RN Flowsheets (Taken 03/08/2021148) Plan of Care [...] Operative Note Patient Name: London Neri : [id number] MR#: [id number] Case Date: 03/06/2021 Surgeon: Surgeon(s) and Role: [...] air leak. The patient was transferred to [facility] for definitive treatment of his recurrent [...] GAS ARTERIAL POC Routine 9:27 AM EDT TRANSFUSE RED BLOOD CELLS Routine 03/09/2021 7:31 [...] 10:56 AM EDT Thoracoscopy W/Partial Pulmonary Decortication (80325) 03/06/2021 8:45 AM EDT left spontaeous pneumothorax Bronchoscopy, Diagnostic (13685) 03/06/2021 8:45 AM EDT left spontaeous pneumothorax Thoracoscopy Surg W/Pleurodesis (50780) 03/06/2021 8:45 AM EDT left spontaeous pneumothorax [...] who have questions please contact the health skin care technician that requested your imaging first. [...] patients who have questions please contactthe health skin care technician that requested your imaging first. Electronically signed by: Malika Thayer MD, [facility]([phone]), at 03/30/2021 2:52 PM Kendall Khalil MD [...] who have questions please contact the health skin care technician that requested your imaging first. ? Electronically signed by: KENDALL PACHECO MD, [facility] ([phone]), at 03/13/2021 1:22 PM Narrative 03/13/2021 1:22 [...] patients who have questions please contactthe health skin care technician that requested your imaging first. Electronically signed by: KENDALL PACHECO MD, [facility]([phone]), at 03/13/2021 1:22 PM Kendall Khalil MD [...] who have questions please contact the health skin care technician that requested your imaging first. ? Electronically signed by: KENDALL PACHECO MD, [facility] ([phone]), at 03/13/2021 9:41 AM Narrative 03/13/2021 9:41 [...] patients who have questions please contactthe health skin care technician that requested your imaging first. Kendall Khalil MD IMG DX ORDERABLES * Green Tube HOLD (03/13/2021 3:47 AM EDT) Green Hold Sample in lab. [facility] Blood Venous Draw / Unknown 03/13/2021 3:47 AM EDT 03/13/2021 4:24 AM EDT Uri Sawyer MD CHEMISTRY ORDERABLES Performing Organization Address City/[facility]/[place] [address] * (ABNORMAL) Differential, Automated (03/13/2021 3:47 AM EDT) Neutrophil % 82.8 % [facility] Neutrophil Absolute 11.20(H) 1.70 - 6.10 x10(3)/mc L [facility] Lymph % 6.4 % [facility] Lymphocytes Abs 0.9 0.9 - 3.2 x10(3)/ L [facility] Monocyte % 7.8 % [facility] Monocyte Abs 1.1(H) 0.3 - 0.9 x10(3)/ L [facility] Eos % 2.0 % [facility] Eosinophils Abs 0.3 0.0 - 0.4 x10(3)/ L [facility] Basophil % 0.3 % [facility] Baso Absolute 0.0 0.0 - 0.1 x10(3)/ L [facility] Immature Gran % 0.70 % [facility] Comment: Immature granulocytes(IG's)percentage and absolute count will include metamyelocytes, myelocytes, and promyelocytes. Blood smears from CBCs yielding IG's will be scanned manually for concordance. If this scan disagrees with the automated IG or if promyelocytes are noted, a manual differential will be performed. Immature Gran Absolute 0.09(H) 0.00 - 0.04 x10(3)/ L [facility] Blood 03/13/2021 3:47 AM EDT 03/13/2021 4:23 AM EDT Narrative Resulting Agency Comment Spec In Lab Ashanti May MD HEMATOLOGY ORDERABLE S [facility] [place] [address] * (ABNORMAL) Hemogram (03/13/2021 3:47 AM EDT) Pathologist [facility] White Blood Cell 13.5(H) 4.0 - 9.5 x10(3)/[facility] Red Blood Cell 2.70(L) 4.58 - 5.54 x10(6)/[facility] Hemoglobin 8.1(L) 13.7 - 16.5 gm/dL [facility] Hematocrit 24.0(L) 40.5 - 48.5 % [facility] Mean Cell Volume 88.9 82.9 - 93.1 [facility] Mean Cell Hemoglobin 30.0 27.5 - 32.1 pg [facility] Mean Cell Hemoglobin Concentration 33.8 32.0 - 35.7 gm/dL [facility] Platelet 316 145 - 357 x10(3)/[facility] RDW Standard Deviation 44.9 36.0 - 45.0 [facility] RDW coefficient of variation 14.4(H) 11.4 - 13.8 % [facility] Mean Platelet Volume 9.6 7.6 - 12.9 [facility] NRBC% auto 0.4 % [facility] NRBC Absolute 0.050(H) 0.000 - 0.000 x10(3)/[facility] Blood 03/13/2021 3:47 AM EDT 03/13/2021 4:23 AM EDT Narrative Resulting Agency Comment Spec In Lab Ashanti May MD HEMATOLOGY ORDERABLE S [facility] [place] [address] * (ABNORMAL) Prothrombin Time (03/13/2021 3:47 AM EDT) Pathologist [facility] Prothrombin Time 12.9(H) 9.4 - 12.5 sec [facility] International Normalization Ratio 1.1 [facility] Comment: An INR <2.0 [...] MD HEMATOLOGY ORDERABLE S Performing Organization Address [facility] Co de Phone Number [facility] [place] [address] * Prothrombin Time (03/12/2021 6:12 PM EDT) Prothrombin Time 11.7 9.4 - 12.5 sec [facility] International Normalization Ratio 1.0 [facility] Comment: An INR <2.0 [...] MD HEMATOLOGY ORDERABLE S Performing Organization Address City/[facility]/ZIP Co de Phone Number [facility] [place] [address] * Transfuse RBC (03/12/2021 5:24 PM EDT) [...] who have questions please contact the health skin care technician that requested your imaging first. ? Electronically signed by: Malika Thayer MD, [facility] ([phone]), at 03/12/2021 2:56 PM Narrative 03/12/2021 2:56 [...] patients who have questions please contactthe health skin care technician that requested your imaging first. Electronically signed by: Malika Thayer MD, [facility]([phone]), at 03/12/2021 2:56 PM Kendall Khalil MD IMG DX ORDERABLES * Type and Screen Validity (03/12/2021 12:10 PM EDT) [facility] T&S only valid at [facility] Comment:This Type and Screen result is only valid at the [facility] Blood 03/12/2021 12:1 0 PM EDT 03/12/2021 12:21 PM EDT Narrative Resulting Agency Comment Spec In Lab Pardeep DELAROSA BLOOD BANK LAB OR DERABLES Performing Organization Address [facility] Co de Phone Number [facility] [place] [address] * ABORH Recheck Status (03/12/2021 12:10 PM EDT) ABORH Type Recheck Completed [facility] Blood 03/12/2021 12:1 0 PM EDT 03/12/2021 12:21 PM EDT Narrative Resulting Agency Comment Spec In Lab Pardeep DELAROSA BLOOD BANK LAB OR DERABLES Performing Organization Address [facility] Co de Phone Number [facility] [place] [address] * Antibody screen (03/12/2021 12:10 PM EDT) Ab Screen Interp Negative [facility] Expires at [id number] on: 03/15/2021 [facility] Blood 03/12/2021 12:1 0 PM EDT 03/12/2021 12:21 PM EDT Narrative Resulting Agency Comment Spec In Lab Pardeep DELAROSA BLOOD BANK LAB OR DERABLES [facility] [place] [address] * ABO/Rh Typing (03/12/2021 12:10 PM EDT) ABORH Type A Neg [facility] Blood 03/12/2021 12:1 0 PM EDT 03/12/2021 12:21 PM EDT Narrative Resulting Agency Comment Spec In Lab Pardeep DELAROSA BLOOD BANK LAB OR DERABLES [facility] [place] [address] * Prepare RBC (03/12/2021 10:45 AM EDT) Dispensed? Yes [facility] Blood 03/12/2021 10:4 5 AM EDT 03/12/2021 10:43 AM EDT Narrative Resulting Agency Comment Spec In Lab Kendall Khalil MD BLOOD BANK PRODUCT O RDERABLES [facility] [place] [address] * Green Tube HOLD (03/12/2021 8:31 AM EDT) Green Hold Sample in lab. [facility] Blood Venous Draw / Unknown 03/12/2021 8:31 AM EDT 03/12/2021 8:38 AM EDT Ashanti May MD CHEMISTRY ORDERABLES Performing Organization Address City/[facility]/[place] [address] * (ABNORMAL) Differential, Automated (03/12/2021 8:31 AM EDT) Neutrophil % 70.0 % [facility] Neutrophil Absolute 6.10 1.70 - 6.10 x10(3)/mc L [facility] Lymph % 13.8 % [facility] Lymphocytes Abs 1.2 0.9 - 3.2 x10(3)/ L [facility] Monocyte % 9.3 % [facility] Monocyte Abs 0.8 0.3 - 0.9 x10(3)/ L [facility] Eos % 5.1 % [facility] Eosinophils Abs 0.4 0.0 - 0.4 x10(3)/ L [facility] Basophil % 0.7 % [facility] Baso Absolute 0.1 0.0 - 0.1 x10(3)/ L [facility] Immature Gran % 1.10 % [facility] Comment: Immature granulocytes(IG's)percentage and absolute count will include metamyelocytes, myelocytes, and promyelocytes. Blood smears from CBCs yielding IG's will be scanned manually for concordance. If this scan disagrees with the automated IG or if promyelocytes are noted, a manual differential will be performed. Immature Gran Absolute 0.10(H) 0.00 - 0.04 x10(3)/ L [facility] Blood 03/12/2021 8:31 AM EDT 03/12/2021 8:38 AM EDT Narrative Resulting Agency Comment Spec In Lab Ashanti May MD HEMATOLOGY ORDERABLE S [facility] [place] [address] * (ABNORMAL) Hemogram (03/12/2021 8:31 AM EDT) [facility] White Blood Cell 8.7 4.0 - 9.5 x10(3)/mc L [facility] Red Blood Cell 2.34(L) 4.58 - 5.54 x10(6)/ L [facility] Hemoglobin 7.0(L) 13.7 - 16.5 gm/dL [facility] Hematocrit 20.8(L) 40.5 - 48.5 % [facility] Mean Cell Volume 88.9 82.9 - 93.1 fL [facility] Mean Cell Hemoglobin 29.9 27.5 - 32.1 pg [facility] Mean Cell Hemoglobin Concentration 33.7 32.0 - 35.7 gm/dL [facility] Platelet 275 145 - 357 x10(3)/[facility] RDW Standard Deviation 45.6(H) 36.0 - 45.0 [facility] RDW coefficient of variation 14.4(H) 11.4 - 13.8 % [facility] Mean Platelet Volume 9.5 7.6 - 12.9 fL [facility] NRBC% auto 0.5 % [facility] NRBC Absolute 0.040(H) 0.000 - 0.000 x10(3)/[facility] Blood 03/12/2021 8:31 AM EDT 03/12/2021 8:38 AM EDT Narrative Resulting Agency Comment Spec In Lab Ashanti May MD HEMATOLOGY ORDERABLE S [facility] [place] [address] * (ABNORMAL) Differential, Automated (03/11/2021 12:48 PM EDT) [facility] Neutrophil % 65.8 % [facility] Neutrophil Absolute 5.12 1.70 - 6.10 x10(3)/[facility] LAB[facility] Lymph % 14.2 % [facility] Lymphocytes Abs 1.1 0.9 - 3.2 x10(3)/[facility] Monocyte % 11.0 % [facility] Monocyte Abs 0.9 0.3 - 0.9 x10(3)/[facility] Eos % 6.9 % [facility] Eosinophils Abs 0.5(H) 0.0 - 0.4 x10(3)/[facility] Basophil % 0.6 % [facility] Baso Absolute 0.0 0.0 - 0.1 x10(3)/[facility] Immature Gran % 1.50 % [facility] Comment: Immature granulocytes(IG's)percentage and absolute count will include metamyelocytes, myelocytes, and promyelocytes. Blood smears from CBCs yielding IG's will be scanned manually for concordance. If this scan disagrees with the automated IG or if promyelocytes are noted, a manual differential will be performed. Immature Gran Absolute 0.12(H) 0.00 - 0.04 x10(3)/[facility] Blood 03/11/2021 12:4 8 PM EDT 03/11/2021 1:27 PM EDT Narrative Resulting Agency Comment Spec In Lab Ashanti May MD HEMATOLOGY ORDERABLE S [facility] [place] [address] * (ABNORMAL) Hemogram (03/11/2021 12:48 PM EDT) White Blood Cell 7.8 4.0 - 9.5 x10(3)/[facility] Red Blood Cell 2.55(L) 4.58 - 5.54 x10(6)/mc L [facility] Hemoglobin 7.3(L) 13.7 - 16.5 gm/dL [facility] Hematocrit 22.6(L) 40.5 - 48.5 % [facility] Mean Cell Volume 88.6 82.9 - 93.1 fL [facility] Mean Cell Hemoglobin 28.6 27.5 - 32.1 pg [facility] Mean Cell Hemoglobin Concentration 32.3 32.0 - 35.7 gm/dL [facility] Platelet 251 145 - 357 x10(3)/mc L [facility] RDW Standard Deviation 46.9(H) 36.0 - 45.0 fL [facility] RDW coefficient of variation 14.5(H) 11.4 - 13.8 % [facility] Mean Platelet Volume 10.3 7.6 - 12.9 fL [facility] NRBC% auto 0.4 % [facility] NRBC Absolute 0.030(H) 0.000 - 0.000 x10(3)/mc L [facility] Blood 03/11/2021 12:4 8 PM EDT 03/11/2021 1:27 PM EDT Narrative Resulting Agency Comment Spec In Lab Ashanti May MD HEMATOLOGY ORDERABLE S [facility] [place] [address] * (ABNORMAL) Basic Metabolic Panel (non-fasting) (03/11/2021 12:48 PM EDT) Glucose 100 65 - 199 mg/dL [facility] Comment:Diabetes: >=200 mg/d L plus symptoms Blood Urea Nitrogen 19 10 - 20 mg/dL [facility] Creatinine 0.93 0.80 - 1.50 mg/dL [facility] Sodium 140 135 - 145 mmol/L [facility] Potassium 3.9 3.5 - 5.0 mmol/L [facility] Comment: Please note: ??Patients with WBC >100,000 may have falsely elevated Potassium levels. ??For accurate Potassium quantification in these patients send serum separator tube (gold top) for subsequent determinations. ??Contact the Clinical Chemistry Laboratory if there are any questions. Chloride 106 98 - 107 mmol/L [facility] Carbon Dioxide 23 22 - 31 mmol/L [facility] Anion Gap 11 5 - 15 mmol/L [facility] Calcium 8.3(L) 8.5 - 10.5 mg/dL [facility] Est Glomerular Filtration Rate 82 >=60 mL/min/1. 73 m?? [facility] Comment: This patient? s [...] In Lab Kendall Khalil MD CHEMISTRY ORDERABLES [facility] [place] [address] * XR Chest PA & Lateral (Generic) [...] who have questions please contact the health skin care technician that requested your imaging first. ? Electronically signed by: Mirella Fowler MD, [facility] ([phone]), at 03/10/2021 8:41 AM Narrative 03/10/2021 8:41 [...] patients who have questions please contactthe health skin care technician that requested your imaging first. Electronically signed by: Mirella Fowler MD, [facility]([phone]), at 03/10/2021 8:41 AM Kendall Khalil MD IMG DX ORDERABLES * (ABNORMAL) Differential, Automated (03/10/2021 5:52 AM EDT) Neutrophil % 79.5 % [facility] Neutrophil Absolute 8.74(H) 1.70 - 6.10 x10(3)/mc L [facility] Lymph % 9.8 % [facility] Lymphocytes Abs 1.1 0.9 - 3.2 x10(3)/mc L [facility] Monocyte % 9.5 % [facility] Monocyte Abs 1.0(H) 0.3 - 0.9 x10(3)/mc L [facility] Eos % 0.5 % [facility] Eosinophils Abs 0.1 0.0 - 0.4 x10(3)/ L [facility] Basophil % 0.2 % [facility] Baso Absolute 0.0 0.0 - 0.1 x10(3)/mc L [facility] Immature Gran % 0.50 % [facility] Comment: Immature granulocytes(IG's)percentage and absolute count will include metamyelocytes, myelocytes, and promyelocytes. Blood smears from CBCs yielding IG's will be scanned manually for concordance. If this scan disagrees with the automated IG or if promyelocytes are noted, a manual differential will be performed. Immature Gran Absolute 0.05(H) 0.00 - 0.04 x10(3)/mc L [facility] Blood 03/10/2021 5:52 AM EDT 03/10/2021 6:21 AM EDT Narrative Resulting Agency Comment Spec In Lab Ashanti May MD HEMATOLOGY ORDERABLE S [facility] [place] [address] * (ABNORMAL) Hemogram (03/10/2021 5:52 AM EDT) White Blood Cell 11.0(H) 4.0 - 9.5 x10(3)/mc L [facility] Red Blood Cell 2.56(L) 4.58 - 5.54 x10(6)/mc L [facility] Hemoglobin 7.6(L) 13.7 - 16.5 gm/dL [facility] Hematocrit 22.3(L) 40.5 - 48.5 % [facility] Mean Cell Volume 87.1 82.9 - 93.1 fL [facility] Mean Cell Hemoglobin 29.7 27.5 - 32.1 pg [facility] Mean Cell Hemoglobin Concentration 34.1 32.0 - 35.7 gm/dL [facility] Platelet 208 145 - 357 x10(3)/mc L [facility] RDW Standard Deviation 47.7(H) 36.0 - 45.0 fL [facility] RDW coefficient of variation 14.9(H) 11.4 - 13.8 % [facility] Mean Platelet Volume 9.8 7.6 - 12.9 fL [facility] NRBC% auto 0.0 % [facility] NRBC Absolute 0.000 0.000 - 0.000 x10(3)/mc L [facility] Blood 03/10/2021 5:52 AM EDT 03/10/2021 6:21 AM EDT Narrative Resulting Agency Comment Spec In Lab Ashanti May MD HEMATOLOGY ORDERABLE S Performing Organization Address [facility] Co de Phone Number [facility] [place] [address] * (ABNORMAL) Phosphorus (03/10/2021 5:52 AM EDT) Phosphorus 2.4(L) 2.5 - 4.5 mg/dL [facility] Blood 03/10/2021 5:52 AM EDT 03/10/2021 6:21 AM EDT Narrative Resulting Agency Comment Spec In Lab Kendall Khalil MD CHEMISTRY ORDERABLES Performing Organization Address [facility] Co de Phone Number [facility] [place] [address] * Magnesium (03/10/2021 5:52 AM EDT) Pathologist [facility] Magnesium 0.92 0.69 - 1.07 mmol/L [facility] Blood 03/10/2021 5:52 AM EDT 03/10/2021 6:21 AM EDT Narrative Resulting Agency Comment Spec In Lab Kendall Khalil MD CHEMISTRY ORDERABLES Performing Organization Address [facility] Co de Phone Number [facility] [place] [address] * (ABNORMAL) Basic Metabolic Panel (non-fasting) (03/10/2021 5:52 AM EDT) Glucose 106 65 - 199 mg/dL [facility] Comment:Diabetes: >=200 mg/d L plus symptoms Blood Urea Nitrogen 18 10 - 20 mg/dL [facility] Creatinine 0.76(L) 0.80 - 1.50 mg/dL [facility] Sodium 133(L) 135 - 145 mmol/L [facility] Potassium 4.5 3.5 - 5.0 mmol/L [facility] Comment: Please note: ??Patients with WBC >100,000 may have falsely elevated Potassium levels. ??For accurate Potassium quantification in these patients send serum separator tube (gold top) for subsequent determinations. ??Contact the Clinical Chemistry Laboratory if there are any questions. Chloride 104 98 - 107 mmol/L [facility] Carbon Dioxide 22 22 - 31 mmol/L [facility] Anion Gap 7 5 - 15 mmol/L [facility] Calcium 7.9(L) 8.5 - 10.5 mg/dL [facility] Est Glomerular Filtration Rate 92 >=60 mL/min/1. 73 m?? [facility] Comment: This patient? s [...] In Lab Kendall Khalil MD CHEMISTRY ORDERABLES [facility] [place] [address] * XR Chest One View (03/09/2021 12:50 [...] who have questions please contact the health skin care technician that requested your imaging first. ? Electronically signed by: GERMANIA BLAIR MD, [facility] ([phone]), at 03/09/2021 1:15 PM Narrative 03/09/2021 1:15 [...] patients who have questions please contactthe health skin care technician that requested your imaging first. Electronically signed by: GERMANIA BLAIR MD, [facility]([phone]), at 03/09/2021 1:15 PM Kendall Khalil MD IMG DX ORDERABLES * (ABNORMAL) Differential, Automated (03/09/2021 11:55 AM EDT) Neutrophil % 92.8 % [facility] Neutrophil Absolute 13.14(H) 1.70 - 6.10 x10(3)/mc L [facility] Lymph % 2.4 % [facility] Lymphocytes Abs 0.3(L) 0.9 - 3.2 x10(3)/mc L [facility] Monocyte % 4.0 % [facility] Monocyte Abs 0.6 0.3 - 0.9 x10(3)/mc L [facility] Eos % 0.1 % [facility] Eosinophils Abs 0.0 0.0 - 0.4 x10(3)/mc L [facility] Basophil % 0.2 % [facility] Baso Absolute 0.0 0.0 - 0.1 x10(3)/mc L [facility] Immature Gran % 0.50 % [facility] Comment: Immature granulocytes(IG's)percentage and absolute count will include metamyelocytes, myelocytes, and promyelocytes. Blood smears from CBCs yielding IG's will be scanned manually for concordance. If this scan disagrees with the automated IG or if promyelocytes are noted, a manual differential will be performed. Immature Gran Absolute 0.07(H) 0.00 - 0.04 x10(3)/mc L [facility] Blood 03/09/2021 11:5 5 AM EDT 03/09/2021 1:26 PM EDT Narrative Resulting Agency Comment Spec In Lab Ashanti May MD HEMATOLOGY ORDERABLE S [facility] [place] [address] * (ABNORMAL) Hemogram (03/09/2021 11:55 AM EDT) White Blood Cell 14.2(H) 4.0 - 9.5 x10(3)/mc L [facility] Red Blood Cell 2.81(L) 4.58 - 5.54 x10(6)/mc L [facility] Hemoglobin 8.4(L) 13.7 - 16.5 gm/dL [facility] Hematocrit 24.5(L) 40.5 - 48.5 % [facility] Mean Cell Volume 87.2 82.9 - 93.1 [facility] Mean Cell Hemoglobin 29.9 27.5 - 32.1 pg [facility] Mean Cell Hemoglobin Concentration 34.3 32.0 - 35.7 gm/dL [facility] Platelet 178 145 - 357 x10(3)/mc L [facility] RDW Standard Deviation 46.4(H) 36.0 - 45.0 [facility] RDW coefficient of variation 14.4(H) 11.4 - 13.8 % [facility] Mean Platelet Volume 10.6 7.6 - 12.9 [facility] NRBC% auto 0.0 % [facility] NRBC Absolute 0.000 0.000 - 0.000 x10(3)/mc L [facility] Blood 03/09/2021 11:5 5 AM EDT 03/09/2021 1:26 PM EDT Narrative Resulting Agency Comment Spec In Lab Ashanti May MD HEMATOLOGY ORDERABLE S [facility] [place] [address] * (ABNORMAL) Phosphorus (03/09/2021 11:55 AM EDT) Phosphorus 4.7(H) 2.5 - 4.5 mg/dL [facility] Blood 03/09/2021 11:5 5 AM EDT 03/09/2021 1:26 PM EDT Narrative Resulting Agency Comment Spec In Lab Kendall Khalil MD CHEMISTRY ORDERABLES [facility] [place] [address] * Magnesium (03/09/2021 11:55 AM EDT) Pathologist [facility] Magnesium 0.91 0.69 - 1.07 mmol/L [facility] Blood 03/09/2021 11:5 5 AM EDT 03/09/2021 1:26 PM EDT Narrative Resulting Agency Comment Spec In Lab Kendall Khalil MD CHEMISTRY ORDERABLES Performing Organization Address City/[facility]/ZIP Co de Phone Number [facility] [place] [address] * (ABNORMAL) Basic Metabolic Panel (non-fasting) (03/09/2021 11:55 AM EDT) Pathologist [facility] Glucose Not Perf 65 - 199 [facility] Comment: Sample improperly processed prior to receipt. Unspun for >1hr. Diabetes: >=200 mg/dL plus symptoms Blood Urea Nitrogen 17 10 - 20 mg/dL [facility] Creatinine 0.81 0.80 - 1.50 mg/dL [facility] Sodium 132(L) 135 - 145 mmol/L [facility] Potassium 4.6 3.5 - 5.0 mmol/L [facility] Comment: Please note: ??Patients with WBC >100,000 may have falsely elevated Potassium levels. ??For accurate Potassium quantification in these patients send serum separator tube (gold top) for subsequent determinations. ??Contact the Clinical Chemistry Laboratory if there are any questions. Chloride 99 98 - 107 mmol/L [facility] Carbon Dioxide 23 22 - 31 mmol/L [facility] Anion Gap 10 5 - 15 mmol/L [facility] Calcium 7.7(L) 8.5 - 10.5 mg/dL [facility] Est Glomerular Filtration Rate 89 >=60 mL/min/1. 73 m?? [facility] Comment: This patient? s [...] In Lab Kendall Khalil MD CHEMISTRY ORDERABLES [facility] [place] [address] * (ABNORMAL) BLOOD GAS 2 ARTERIAL (03/09/2021 9:27 AM EDT) pH, Arterial 7.42 7.35 - 7.45 [facility] PCO2, Arterial 44 35 - 45 mmHg [facility] PO2, Arterial 137(H) 85 - 104 mmHg [facility] Bicarbonate, Arterial 28.1(H) 20.0 - 26.0 mmol/L [facility] Base Excess, Arterial 3.6(H) -3.0 - 3.0 mmol/L [facility] Hgb Blood Gas 8.6(L) 13.7 - 16.5 gm/dL [facility] Oxyhemoglobin, Arterial 97.2(H) 94.0 - 97.0 % [facility] Carboxyhemoglob in, Arterial 1.1 % [facility] Comment: Nonsmokers: 0.5-1.5% COHB Smokers: Variable, but usually less than 10% Toxic: 20-30% COHB Lethal: Greater than 60% COHB Methemoglobin, Arterial 0.3 <=1.5 % [facility] Na Whole Blood 129(L) 135 - 145 mmol/L [facility] K Whole Blood 4.7 3.5 - 5.0 mmol/L [facility] Comment: Please note: Patients with WBC >100,000 may have falsely elevated Potassium levels. Contact the Clinical Chemistry Laboratory if there are any questions. ICa Whole Blood 1.05(L) 1.15 - 1.33 mmol/L [facility] Comment: Note: ??Total bilirubin higher than 20 mg/dL may lead to falsely low ionized calcium. CL Whole Blood 100 98 - 107 mmol/L [facility] Gluc Whole Bld 132 65 - 199 mg/dL [facility] Comment:Diabetes: >=200 mg/d L plus symptoms. Lactate WB 1.7 0.5 - 2.2 mmol/L [facility] Blood 03/09/2021 9:27 AM EDT 03/09/2021 9:27 AM EDT Kendall Khalil MD POINT OF CARE TEST O RDERABLES [facility] [place] [address] * Prepare RBC (03/09/2021 7:15 AM EDT) Dispensed? Yes [facility] Blood 03/09/2021 7:15 AM EDT 03/09/2021 7:10 AM EDT Narrative Resulting Agency Comment Spec In Lab Kendall Khalil MD BLOOD BANK PRODUCT O RDERABLES [facility] [place] [address] * XR Chest One View (03/09/2021 6:54 [...] who have questions please contact the health skin care technician that requested your imaging first. [...] patients who have questions please contactthe health skin care technician that requested your imaging first. Electronically signed by: Tirso Burton MD, [facility]([phone]), at 03/09/2021 7:28 AM Kendall Khalil MD IMG DX ORDERABLES * POCT Glucose (03/09/2021 4:42 AM EDT) [facility] Signature Glucose, POC 177 65 - 199 mg/dL [facility] Comment: Supplemental ranges: <140 mg/dL before meals <180 mg/dL all other times of the day Blood 03/09/2021 4:42 AM EDT 03/09/2021 4:42 AM EDT Kendall Khalil MD POINT OF CARE TEST O RDERABLES [facility] [place] [address] * (ABNORMAL) Differential, Automated (03/09/2021 2:57 AM EDT) Neutrophil % 82.6 % [facility] Neutrophil Absolute 10.25(H) 1.70 - 6.10 x10(3)/mc L [facility] Lymph % 8.4 % [facility] Lymphocytes Abs 1.0 0.9 - 3.2 x10(3)/ L [facility] Monocyte % 7.8 % [facility] Monocyte Abs 1.0(H) 0.3 - 0.9 x10(3)/mc L [facility] Eos % 0.6 % [facility] Eosinophils Abs 0.1 0.0 - 0.4 x10(3)/ L [facility] Basophil % 0.2 % [facility] Baso Absolute 0.0 0.0 - 0.1 x10(3)/mc L [facility] Immature Gran % 0.40 % [facility] Comment: Immature granulocytes(IG's)percentage and absolute count will include metamyelocytes, myelocytes, and promyelocytes. Blood smears from CBCs yielding IG's will be scanned manually for concordance. If this scan disagrees with the automated IG or if promyelocytes are noted, a manual differential will be performed. Immature Gran Absolute 0.05(H) 0.00 - 0.04 x10(3)/mc L [facility] Blood 03/09/2021 2:57 AM EDT 03/09/2021 3:31 AM EDT Narrative Resulting Agency Comment Spec In Lab Ashanti May MD HEMATOLOGY ORDERABLE S [facility] [place] [address] * (ABNORMAL) Hemogram (03/09/2021 2:57 AM EDT) White Blood Cell 12.4(H) 4.0 - 9.5 x10(3)/mc L [facility] Red Blood Cell 2.64(L) 4.58 - 5.54 x10(6)/mc L [facility] Hemoglobin 7.9(L) 13.7 - 16.5 gm/dL [facility] Hematocrit 23.6(L) 40.5 - 48.5 % [facility] Mean Cell Volume 89.4 82.9 - 93.1 fL [facility] Mean Cell Hemoglobin 29.9 27.5 - 32.1 pg [facility] Mean Cell Hemoglobin Concentration 33.5 32.0 - 35.7 gm/dL [facility] Platelet 187 145 - 357 x10(3)/mc L [facility] RDW Standard Deviation 43.7 36.0 - 45.0 [facility] RDW coefficient of variation 13.4 11.4 - 13.8 % [facility] Mean Platelet Volume 10.4 7.6 - 12.9 [facility] NRBC% auto 0.0 % [facility] NRBC Absolute 0.000 0.000 - 0.000 x10(3)/mc L [facility] Blood 03/09/2021 2:57 AM EDT 03/09/2021 3:31 AM EDT Narrative Resulting Agency Comment Spec In Lab Ashanti May MD HEMATOLOGY ORDERABLE S [facility] [place] [address] * Phosphorus (03/09/2021 2:57 AM EDT) Pathologist [facility] Phosphorus 3.1 2.5 - 4.5 mg/dL [facility] Blood 03/09/2021 2:57 AM EDT 03/09/2021 3:31 AM EDT Narrative Resulting Agency Comment Spec In Lab Kendall Khalil MD CHEMISTRY ORDERABLES Performing Organization Address [facility]/ZIP Co de Phone Number [facility] [place] [address] * Magnesium (03/09/2021 2:57 AM EDT) [facility] Magnesium 0.85 0.69 - 1.07 mmol/L [facility] Blood 03/09/2021 2:57 AM EDT 03/09/2021 3:31 AM EDT Narrative Resulting Agency Comment Spec In Lab Kendall Khalil MD CHEMISTRY ORDERABLES Performing Organization Address [facility] Co de Phone Number [facility] [place] [address] * (ABNORMAL) Basic Metabolic Panel (non-fasting) (03/09/2021 2:57 AM EDT) [facility] Glucose 112 65 - 199 mg/dL [facility] Comment:Diabetes: >=200 mg/d L plus symptoms Blood Urea Nitrogen 14 10 - 20 mg/dL [facility] Creatinine 0.81 0.80 - 1.50 mg/dL [facility] Sodium 132(L) 135 - 145 mmol/L [facility] Potassium 4.1 3.5 - 5.0 mmol/L [facility] Comment: Please note: ??Patients with WBC >100,000 may have falsely elevated Potassium levels. ??For accurate Potassium quantification in these patients send serum separator tube (gold top) for subsequent determinations. ??Contact the Clinical Chemistry Laboratory if there are any questions. Chloride 98 98 - 107 mmol/L [facility] Carbon Dioxide 26 22 - 31 mmol/L [facility] Anion Gap 8 5 - 15 mmol/L [facility] Calcium 8.0(L) 8.5 - 10.5 mg/dL [facility] Est Glomerular Filtration Rate 89 >=60 mL/min/1. 73 m?? [facility] Comment: This patient? s [...] In Lab Kendall Khalil MD CHEMISTRY ORDERABLES [facility] [place] [address] * (ABNORMAL) Differential, Automated (03/08/2021 8:40 PM EDT) Neutrophil % 86.8 % [facility] Neutrophil Absolute 12.59(H) 1.70 - 6.10 x10(3)/mc L [facility] Lymph % 4.5 % [facility] Lymphocytes Abs 0.7(L) 0.9 - 3.2 x10(3)/mc L [facility] Monocyte % 7.5 % [facility] Monocyte Abs 1.1(H) 0.3 - 0.9 x10(3)/mc L [facility] Eos % 0.0 % [facility] Eosinophils Abs 0.0 0.0 - 0.4 x10(3)/ L [facility] Basophil % 0.1 % [facility] Baso Absolute 0.0 0.0 - 0.1 x10(3)/[facility] Immature Gran % 1.10 % [facility] Comment: Immature granulocytes(IG's)percentage and absolute count will include metamyelocytes, myelocytes, and promyelocytes. Blood smears from CBCs yielding IG's will be scanned manually for concordance. If this scan disagrees with the automated IG or if promyelocytes are noted, a manual differential will be performed. Immature Gran Absolute 0.16(H) 0.00 - 0.04 x10(3)/[facility] Blood 03/08/2021 8:40 PM EDT 03/08/2021 8:49 PM EDT Narrative Resulting Agency Comment Spec In Lab Jian Olivarez MD HEMATOLOGY ORDERABLE S [facility] [place] [address] * (ABNORMAL) Hemogram (03/08/2021 8:40 PM EDT) White Blood Cell 14.5(H) 4.0 - 9.5 x10(3)/[facility] Red Blood Cell 3.29(L) 4.58 - 5.54 x10(6)/ L [facility] Hemoglobin 9.7(L) 13.7 - 16.5 gm/dL [facility] Hematocrit 29.0(L) 40.5 - 48.5 % [facility] Mean Cell Volume 88.1 82.9 - 93.1 fL [facility] Mean Cell Hemoglobin 29.5 27.5 - 32.1 pg [facility] Mean Cell Hemoglobin Concentration 33.4 32.0 - 35.7 gm/dL [facility] Platelet 187 145 - 357 x10(3)/ L [facility] RDW Standard Deviation 43.1 36.0 - 45.0 [facility] RDW coefficient of variation 13.2 11.4 - 13.8 % [facility] Mean Platelet Volume 10.3 7.6 - 12.9 [facility] NRBC% auto 0.0 % [facility] NRBC Absolute 0.000 0.000 - 0.000 x10(3)/mc L [facility] Blood 03/08/2021 8:40 PM EDT 03/08/2021 8:49 PM EDT Narrative Resulting Agency Comment Spec In Lab Jian Olivarez MD HEMATOLOGY ORDERABLE S Performing Organization Address City/[facility]/ZIP Co de Phone Number [facility] [place] [address] * Type and Screen Validity (03/08/2021 4:36 PM EDT) T&S only valid at [facility] Comment:This Type and Screen result is only valid at the [facility] Blood 03/08/2021 4:36 PM EDT 03/08/2021 4:41 PM EDT Narrative Resulting Agency Comment Spec In Lab Ashanti May MD BLOOD BANK LAB ORDER MADDISON Performing Organization Address City/[facility]/ZIP Co de Phone Number [facility] [place] [address] * ABORH Recheck Status (03/08/2021 4:36 PM EDT) ABORH Type Recheck Completed [facility] Blood 03/08/2021 4:36 PM EDT 03/08/2021 4:41 PM EDT Narrative Resulting Agency Comment Spec In Lab Ashanti May MD BLOOD BANK LAB ORDER MADDISON [facility] [place] [address] * Antibody screen (03/08/2021 4:36 PM EDT) Ab Screen Interp Negative [facility] Expires at [id number] on: 03/11/2021 [facility] Blood 03/08/2021 4:36 PM EDT 03/08/2021 4:41 PM EDT Narrative Resulting Agency Comment Spec In Lab Ashanti May MD BLOOD BANK LAB ORDER MADDISON Performing Organization Address City/[facility]/ZIP Co de Phone Number [facility] [place] [address] * ABO/Rh Typing (03/08/2021 4:36 PM EDT) ABORH Type A Neg [facility] Blood 03/08/2021 4:36 PM EDT 03/08/2021 4:41 PM EDT Narrative Resulting Agency Comment Spec In Lab Ashanti May MD BLOOD BANK LAB ORDER MADDISON Performing Organization Address [facility] Co de Phone Number [facility] [place] [address] * XR Chest One View (03/08/2021 3:00 [...] who have questions please contact the health skin care technician that requested your imaging first. ? Electronically signed by: Malika Thayer MD, [facility] ([phone]), at 03/08/2021 3:08 PM Narrative 03/08/2021 3:08 [...] patients who have questions please contactthe health skin care technician that requested your imaging first. Electronically signed by: Malika Thayer MD, [facility]([phone]), at 03/08/2021 3:08 PM Kendall Khalil MD IMG DX ORDERABLES * EKG 12 Lead (03/08/2021 12:56 PM EDT) Ventricular rate 92 BPM MUSE SYSTEM Atrial Rate 92 BPM MUSE SYSTEM P-R Interval 180 ms MUSE SYSTEM QRS Duration 166 ms MUSE SYSTEM Q-T Interval 426 ms MUSE SYSTEM QTC Calculated (Bezet) 526 ms MUSE SYSTEM Calculated P Shallowater 43 degrees MUSE SYSTEM Calculated R Shallow[place] -63 degrees MUSE SYSTEM Calculated T [place]allow[place] 62 degrees MUSE SYSTEM INTERPRETATION Atrial-sense d ventricular- paced rhythm Underlying normal sinus rhythm Abnormal ECG When compared with ECG of 05-MAR-2021 15:30, Vent. rate has increased BY ??19 BPM Confirmed by Devonte Newsome ([id number]) on 03/08/2021 4:10:26 PM MUSE SYSTEM 03/08/2021 12:5 6 PM EDT 03/08/2021 4:10 PM EDT Kendall Khalil MD ECG ORDERABLES MUSE SYSTEM * (ABNORMAL) Differential, Automated (03/08/2021 12:47 PM EDT) Pathologist [facility] Neutrophil % 85.5 % [facility] Neutrophil Absolute 9.55(H) 1.70 - 6.10 x10(3)/mc L [facility] Lymph % 5.6 % [facility] Lymphocytes Abs 0.6(L) 0.9 - 3.2 x10(3)/mc L [facility] Monocyte % 8.1 % [facility] Monocyte Abs 0.9 0.3 - 0.9 x10(3)/mc L [facility] Eos % 0.1 % [facility] Eosinophils Abs 0.0 0.0 - 0.4 x10(3)/mc L [facility] Basophil % 0.3 % [facility] Baso Absolute 0.0 0.0 - 0.1 x10(3)/mc L [facility] Immature Gran % 0.40 % [facility] Comment: Immature granulocytes(IG's)percentage and absolute count will include metamyelocytes, myelocytes, and promyelocytes. Blood smears from CBCs yielding IG's will be scanned manually for concordance. If this scan disagrees with the automated IG or if promyelocytes are noted, a manual differential will be performed. Immature Gran Absolute 0.05(H) 0.00 - 0.04 x10(3)/mc L [facility] Blood 03/08/2021 12:4 7 PM EDT 03/08/2021 12:57 PM EDT Narrative Resulting Agency Comment Spec In Lab Ashanti May MD HEMATOLOGY ORDERABLE S [facility] [place] [address] * (ABNORMAL) Hemogram (03/08/2021 12:47 PM EDT) White Blood Cell 11.2(H) 4.0 - 9.5 x10(3)/mc L [facility] Red Blood Cell 3.59(L) 4.58 - 5.54 x10(6)/mc L [facility] Hemoglobin 10.6(L) 13.7 - 16.5 gm/dL [facility] Hematocrit 31.6(L) 40.5 - 48.5 % [facility] Mean Cell Volume 88.0 82.9 - 93.1 fL [facility] Mean Cell Hemoglobin 29.5 27.5 - 32.1 pg [facility] Mean Cell Hemoglobin Concentration 33.5 32.0 - 35.7 gm/dL [facility] Platelet 170 145 - 357 x10(3)/mc L [facility] RDW Standard Deviation 43.1 36.0 - 45.0 fL [facility] RDW coefficient of variation 13.2 11.4 - 13.8 % [facility] Mean Platelet Volume 10.6 7.6 - 12.9 fL [facility] NRBC% auto 0.0 % [facility] NRBC Absolute 0.000 0.000 - 0.000 x10(3)/mc L [facility] Blood 03/08/2021 12:4 7 PM EDT 03/08/2021 12:57 PM EDT Narrative Resulting Agency Comment Spec In Lab Ashanti May MD HEMATOLOGY ORDERABLE S Performing Organization Address City/[facility]/ZIP Co de Phone Number [facility] [place] [address] * Phosphorus (03/08/2021 12:47 PM EDT) Phosphorus 2.7 2.5 - 4.5 mg/dL [facility] Blood 03/08/2021 12:4 7 PM EDT 03/08/2021 12:57 PM EDT Narrative Resulting Agency Comment Spec In Lab Kendall Khalil MD CHEMISTRY ORDERABLES Performing Organization Address [facility] Co de Phone Number [facility] [place] [address] * Magnesium (03/08/2021 12:47 PM EDT) Pathologist [facility] Magnesium 0.70 0.69 - 1.07 mmol/L [facility] Blood 03/08/2021 12:4 7 PM EDT 03/08/2021 12:57 PM EDT Narrative Resulting Agency Comment Spec In Lab Kendall Khalil MD CHEMISTRY ORDERABLES Performing Organization Address [facility]/ZIP Co de Phone Number [facility] [place] [address] * (ABNORMAL) Basic Metabolic Panel (non-fasting) (03/08/2021 12:47 PM EDT) Glucose 109 65 - 199 mg/dL [facility] Comment:Diabetes: >=200 mg/d L plus symptoms Blood Urea Nitrogen 12 10 - 20 mg/dL [facility] Creatinine 0.78(L) 0.80 - 1.50 mg/dL [facility] Sodium 137 135 - 145 mmol/L [facility] Potassium 4.0 3.5 - 5.0 mmol/L [facility] Comment: Please note: ??Patients with WBC >100,000 may have falsely elevated Potassium levels. ??For accurate Potassium quantification in these patients send serum separator tube (gold top) for subsequent determinations. ??Contact the Clinical Chemistry Laboratory if there are any questions. Chloride 101 98 - 107 mmol/L [facility] Carbon Dioxide 26 22 - 31 mmol/L [facility] Anion Gap 10 5 - 15 mmol/L [facility] Calcium 8.5 8.5 - 10.5 mg/dL [facility] Est Glomerular Filtration Rate 91 >=60 mL/min/1. 73 m?? [facility] Comment: This patient? s [...] In Lab Kendall Khalil MD CHEMISTRY ORDERABLES [facility] [place] [address] * CT Head wo Contrast (Generic) (03/08/2021 [...] who have questions please contact the health skin care technician that requested your imaging first. ? Electronically signed by: Yrn Bhatt MD, [facility] ([phone]), at 03/08/2021 11:42 AM Narrative 03/08/2021 11:42 AM EDT EXAMINATION: CT [...] patients who have questions please contactthe health skin care technician that requested your imaging first. Electronically signed by: Yrn Bhatt MD, [facility]([phone]), at 03/08/2021 11:42 AM Kendall Khalil MD IM CT ORDERABLES * (ABNORMAL) Hemogram (03/08/2021 3:56 AM EDT) White Blood Cell 9.8(H) 4.0 - 9.5 x10(3)/mc L [facility] Red Blood Cell 3.75(L) 4.58 - 5.54 x10(6)/mc L [facility] Hemoglobin 11.2(L) 13.7 - 16.5 gm/dL [facility] Hematocrit 33.6(L) 40.5 - 48.5 % [facility] Mean Cell Volume 89.6 82.9 - 93.1 fL [facility] Mean Cell Hemoglobin 29.9 27.5 - 32.1 pg [facility] Mean Cell Hemoglobin Concentration 33.3 32.0 - 35.7 gm/dL [facility] Platelet 165 145 - 357 x10(3)/mc L [facility] RDW Standard Deviation 44.4 36.0 - 45.0 fL [facility] RDW coefficient of variation 13.5 11.4 - 13.8 % [facility] Mean Platelet Volume 10.3 7.6 - 12.9 fL [facility] NRBC% auto 0.0 % [facility] NRBC Absolute 0.000 0.000 - 0.000 x10(3)/mc L [facility] Blood 03/08/2021 3:56 AM EDT 03/08/2021 4:10 AM EDT Narrative Resulting Agency Comment Spec In Lab Jian Olivarez MD HEMATOLOGY ORDERABLE S [facility] [place] [address] * (ABNORMAL) Differential, Automated (03/08/2021 3:56 AM EDT) Neutrophil % 79.2 % [facility] Neutrophil Absolute 7.71(H) 1.70 - 6.10 x10(3)/[facility] Lymph % 9.6 % [facility] Lymphocytes Abs 0.9 0.9 - 3.2 x10(3)/[facility] Monocyte % 9.1 % [facility] Monocyte Abs 0.9 0.3 - 0.9 x10(3)/[facility] Eos % 1.3 % [facility] Eosinophils Abs 0.1 0.0 - 0.4 x10(3)/[facility] Basophil % 0.4 % [facility] Baso Absolute 0.0 0.0 - 0.1 x10(3)/[facility] Immature Gran % 0.40 % [facility] Comment: Immature granulocytes(IG's)percentage and absolute count will include metamyelocytes, myelocytes, and promyelocytes. Blood smears from CBCs yielding IG's will be scanned manually for concordance. If this scan disagrees with the automated IG or if promyelocytes are noted, a manual differential will be performed. Immature Gran Absolute 0.04 0.00 - 0.04 x10(3)/[facility] Blood 03/08/2021 3:56 AM EDT 03/08/2021 4:10 AM EDT Narrative Resulting Agency Comment Spec In Lab Jian Olivarez MD HEMATOLOGY ORDERABLE S [facility] [place] [address] * XR Chest PA & Lateral (Generic) (03/08/2021 3:15 AM EDT) Anatomical Region Laterality Modality Chest N/A Digital Radiogra phy Impressions 03/08/2021 4:51 AM EDT 1. ??Unchanged left chest tube positioning. No pneumothorax. 2. ??Small bibasilar effusions. The left effusion has decreased in size compared to 03/06/2021. Preliminary report signed by: Raj Belkis at 03/08/2021 4:44 AM I have personally [...] who have questions please contact the health skin care technician that requested your imaging first. ? Electronically signed by: Tirso Burton MD, [facility] ([phone]), at 03/08/2021 4:51 AM Narrative 03/08/2021 4:51 [...] patients who have questions please contactthe health skin care technician that requested your imaging first. Electronically signed by: Tirso Burton MD, [facility]([phone]), at 03/08/2021 4:51 AM Kendall Khalil MD IMG DX ORDERABLES * APTT (03/06/2021 2:00 PM EDT) [facility] Signature Partial Thromboplastin Time 32 25 - 37 sec [facility] Comment: The PTT is NOT appropriate for heparin monitoring. Use the Anti-Xa level for heparin monitoring (HEP UFH) or LMWH monitoring (HEP LMW). A PTT less than 37 seconds generally indicates adequate hemostasis. Blood specimen (specimen) 03/06/2021 2:00 PM EDT 03/06/2021 2:10 PM EDT Narrative Resulting Agency Comment Spec In Lab Kendall Khalil MD HEMATOLOGY ORDERABLE S Performing Organization Address [facility]/ZIP Co de Phone Number [facility] [place] [address] * (ABNORMAL) Prothrombin Time (03/06/2021 2:00 PM EDT) Prothrombin Time 15.9(H) 9.4 - 12.5 sec [facility] International Normalization Ratio 1.4 [facility] Comment: An INR <2.0 [...] MD HEMATOLOGY ORDERABLE S Performing Organization Address [facility]/ZIP Co de Phone Number [facility] [place] [address] * XR Chest One View (03/06/2021 1:06 [...] who have questions please contact the health skin care technician that requested your imaging first. ? Electronically signed by: GERMANIA BLAIR MD, [facility] ([phone]), at 03/06/2021 2:55 PM Narrative 03/06/2021 2:55 [...] patients who have questions please contactthe health skin care technician that requested your imaging first. Electronically signed by: GERMANIA BLAIR MD, [facility]([phone]), at 03/06/2021 2:55 PM Kendall Khalil MD IMG DX ORDERABLES * Specimen to Pathology (03/06/2021 10:57 AM EDT) AP Specimen 03/06/2021 10:5 7 AM EDT 03/06/2021 10:57 AM EDT Narrative [facility] - 03/06/2021 10:57 AM EDT Specimen requisition ordered. ??Separate Pathology report to follow Kendall Khalil MD PATHOLOGY/CYTOLOGY O RDERABLES [facility] [place] [address] * Surgical Pathology Report (03/06/2021 10:56 AM EDT) Final Diagnosis [id number] ? Location: [facility]; [facility]; A The signing pathologist has (i) examined the relevant preparation(s) for the specimen(s) and (ii) rendered or confirmed the diagnosis(es). . 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 Mesothelial reactive atypia and inflammation. Electronically signed by: ?Renetta Fraga DO Verified: ??03/12/2021 8:34 ?? Pathologist Performed at: ??-[facility] Dept. of Pathology, [place], [place] ADDITIONAL STUDIES Immunohistochemistry Studies: Formalin-fixed, paraffin-embedded [...] occupies 80% of the parenchymal volume. Sections/Processing: School Age Lead Teacher sections in 4 cassettes as follows: ?A1: ??Stapled parenchymal margin, en face ?A2-A4: ??School Age Lead Teacher parenchyma with bleb and adhesions ??erjg 03/12/2021 8:34 AM EDT [facility] LUNG STRUCTURE / Unknown 03/06/2021 10:56 AM EDT 03/06/2021 10:56 AM EDT Kendall Khalil MD PATHOLOGY/CYTOLOGY O RDERABLES [facility] [place] [address] * Prepare thawed plasma (03/06/2021 7:20 AM EDT) Dispensed? Yes [facility] Blood specimen (specimen) 03/06/2021 7:20 AM EDT 03/06/2021 7:17 AM EDT Narrative Resulting Agency Comment Spec In Lab Kendall Khalil MD BLOOD BANK PRODUCT O RDERABLES [facility] [place] [address] * (ABNORMAL) Prothrombin Time (03/06/2021 4:50 AM EDT) Prothrombin Time 20.6(H) 9.4 - 12.5 sec [facility] International Normalization Ratio 1.8 [facility] Comment: An INR <2.0 [...] MD HEMATOLOGY ORDERABLE S Performing Organization Address City/[facility]/ZIP Co de Phone Number [facility] [place] [address] * SCAN DOC: LAB (03/06/2021 12:00 AM EDT) Narrative 03/06/2021 12:00 AM EDT Ordered by an unspecified provider. Scanning Provider MEDIA MGR SCAN EXT O RDR/RSLT * Type and Screen Validity (03/05/2021 6:10 PM EDT) T&S only valid at [facility] Comment:This Type and Screen result is only valid at the [facility] Hospital Blood specimen (specimen) 03/05/2021 6:10 PM EDT 03/05/2021 6:15 PM EDT Narrative Resulting Agency Comment Spec In Lab Kenneth Newby MD BLOOD BANK LAB ORD ERABLES [facility] [place] [address] * ABORH Recheck Status (03/05/2021 6:10 PM EDT) ABORH Recheck Order Order Placed [facility] ABORH Type Recheck Complete [facility] Blood specimen (specimen) 03/05/2021 6:10 PM EDT 03/05/2021 6:15 PM EDT Narrative Resulting Agency Comment Spec In Lab Kenneth Newby MD BLOOD BANK LAB ORD ERABLES Performing Organization Address [facility]/ZIP Co de Phone Number [facility] [place] [address] * Antibody screen (03/05/2021 6:10 PM EDT) Ab Screen Interp Negative [facility] Expires at [id number] on: 03/08/2021 [facility] Blood specimen (specimen) 03/05/2021 6:10 PM EDT 03/05/2021 6:15 PM EDT Narrative Resulting Agency Comment Spec In Lab Kenneth Newby MD BLOOD BANK LAB ORD ERABLES Performing Organization Address City/[facility]/ZIP Co de Phone Number [facility] [place] [address] * ABO/Rh Typing (03/05/2021 6:10 PM EDT) ABORH Type A Neg [facility] Blood specimen (specimen) 03/05/2021 6:10 PM EDT 03/05/2021 6:15 PM EDT Narrative Resulting Agency Comment Spec In Lab Kenneth Newby MD BLOOD BANK LAB ORD ERABLES [facility] [place] [address] * Differential, Automated (03/05/2021 4:21 PM EDT) Pathologist [facility] Neutrophil % 68.0 % [facility] Neutrophil Absolute 4.90 1.70 - 6.10 x10(3)/[facility] Lymph % 17.1 % [facility] Lymphocytes Abs 1.2 0.9 - 3.2 x10(3)/[facility] Monocyte % 9.4 % [facility] Monocyte Abs 0.7 0.3 - 0.9 x10(3)/[facility] Eos % 4.6 % [facility] Eosinophils Abs 0.3 0.0 - 0.4 x10(3)/[facility] Basophil % 0.8 % [facility] Baso Absolute 0.1 0.0 - 0.1 x10(3)/[facility] Immature Gran % 0.10 % [facility] Comment: Immature granulocytes(IG's)percentage and absolute count will include metamyelocytes, myelocytes, and promyelocytes. Blood smears from CBCs yielding IG's will be scanned manually for concordance. If this scan disagrees with the automated IG or if promyelocytes are noted, a manual differential will be performed. Immature Gran Absolute 0.01 0.00 - 0.04 x10(3)/[facility] Blood specimen (specimen) 03/05/2021 4:21 PM EDT 03/05/2021 4:37 PM EDT Narrative Resulting Agency Comment Spec In Lab Kota Leyva MD HEMATOLOGY ORDERABLE S [facility] [place] [address] * (ABNORMAL) Hemogram (03/05/2021 4:21 PM EDT) Pathologist [facility] White Blood Cell 7.2 4.0 - 9.5 x10(3)/[facility] Red Blood Cell 4.60 4.58 - 5.54 x10(6)/mc L [facility] Hemoglobin 13.7 13.7 - 16.5 gm/dL [facility] Hematocrit 40.4(L) 40.5 - 48.5 % [facility] Mean Cell Volume 87.8 82.9 - 93.1 fL [facility] Mean Cell Hemoglobin 29.8 27.5 - 32.1 pg [facility] Mean Cell Hemoglobin Concentration 33.9 32.0 - 35.7 gm/dL [facility] Platelet 197 145 - 357 x10(3)/mc L [facility] RDW Standard Deviation 44.7 36.0 - 45.0 [facility] RDW coefficient of variation 13.8 11.4 - 13.8 % [facility] Mean Platelet Volume 10.0 7.6 - 12.9 fL [facility] NRBC% auto 0.0 % [facility] NRBC Absolute 0.000 0.000 - 0.000 x10(3)/mc L [facility] Blood specimen (specimen) 03/05/2021 4:21 PM EDT 03/05/2021 4:37 PM EDT Narrative Resulting Agency Comment Spec In Lab Kota Leyva MD HEMATOLOGY ORDERABLE S [facility] [place] [address] * (ABNORMAL) Basic Metabolic Panel (non-fasting) (03/05/2021 4:21 PM EDT) Glucose 96 65 - 199 mg/dL [facility] Comment:Diabetes: >=200 mg/d L plus symptoms Blood Urea Nitrogen 23(H) 10 - 20 mg/dL [facility] Creatinine 0.90 0.80 - 1.50 mg/dL [facility] Sodium 138 135 - 145 mmol/L [facility] Potassium 4.5 3.5 - 5.0 mmol/L [facility] Comment: Please note: ??Patients with WBC >100,000 may have falsely elevated Potassium levels. ??For accurate Potassium quantification in these patients send serum separator tube (gold top) for subsequent determinations. ??Contact the Clinical Chemistry Laboratory if there are any questions. Chloride 101 98 - 107 mmol/L [facility] Carbon Dioxide 27 22 - 31 mmol/L [facility] Anion Gap 10 5 - 15 mmol/L [facility] Calcium 9.2 8.5 - 10.5 mg/dL [facility] Est Glomerular Filtration Rate 86 >=60 mL/min/1. 73 m?? [facility] Comment: This patient? s [...] Lab Kenneth Newby MD CHEMISTRY ORDERABL ES [facility] [place] [address] * (ABNORMAL) APTT (03/05/2021 4:21 PM EDT) Partial Thromboplastin Time 44(H) 25 - 37 sec [facility] Comment: The PTT is NOT appropriate for heparin monitoring. Use the Anti-Xa level for heparin monitoring (HEP UFH) or LMWH monitoring (HEP LMW). A PTT less than 37 seconds generally indicates adequate hemostasis. Blood specimen (specimen) 03/05/2021 4:21 PM EDT 03/05/2021 4:37 PM EDT Narrative Resulting Agency Comment Spec In Lab Kenneth Newby MD HEMATOLOGY ORDERAB LES Performing Organization Address [facility] de Phone Number [facility] [place] [address] * (ABNORMAL) Prothrombin Time (03/05/2021 4:21 PM EDT) Pathologist [facility] Prothrombin Time 24.3(H) 9.4 - 12.5 sec [facility] International Normalization Ratio 2.1 [facility] Comment: An INR <2.0 [...] MD HEMATOLOGY ORDERAB LES Performing Organization Address [facility] de Phone Number [facility] [place] [address] * COVID-19 PCR (03/05/2021 3:52 PM EDT) Pathologist [facility] SARS-CoV-2 RNA (Rapid) Not Detected Not Detected [facility] Comment: This result should be interpreted [...] using the Simplexa COVID-19 Direct Assay by [employer] as authorized by the FDA issued Emergency [...] Department of Pathology and Laboratory Medicine at [facility], certified under the Clinical Laboratory Improvement [...] fact sheets at the following FDA website: https://www.fda.gov/medical-devices/psksxwtdwxl-lzofyff-5974-sklxp-87-tafmvomfl- use-a ufblmkwpvrwyn-rhkhmcc-cqjoewy/ygjrs-yrijlitqfie-bvnc SARS-CoV-2 Source PATIENT CARE PROVIDER Swab FRANCISCO JAVIER LEÓN [facility] Nasopharyngeal swab (specimen) 03/05/2021 3:52 PM EDT 03/05/2021 4:43 PM EDT Comment:Symptoms->Surveillan ce Narrative Resulting Agency Comment Spec In Lab Kenneth Newby MD MICROBIOLOGY - GEN ERAL ORDERABLES [facility] [place] [address] * EKG 12 Lead (03/05/2021 3:30 PM EDT) Ventricular rate 73 BPM MUSE SYSTEM Atrial Rate 73 BPM MUSE SYSTEM P-R Interval 178 ms MUSE SYSTEM QRS Duration 176 ms MUSE SYSTEM Q-T Interval 476 ms MUSE SYSTEM QTC Calculated (Bezet) 524 ms MUSE SYSTEM Calculated P Shallowater 30 degrees MUSE SYSTEM Calculated R Shallowater -103 degrees MUSE SYSTEM Calculated T Shallowater 62 degrees MUSE SYSTEM INTERPRETATION Atrial-sens ed [...] dose on Mon03/06/21 at 1315, Until Discontinued, Maximum dose of [...] AM EDT 81 mg BUpivacaine (pf) (Marcaine) (5 mg/mL) 0.5% injection ONCE PRN, Starting on 03/06/21 at 1132, Until 03/13/21 at 1739, Intra-Operative (Intra-Procedure), Routine Given 03/06/2021 9:35 AM EDT 10 mLs 19- Surgical Site [...] East RN)1359 (Given - Provider: Shauna Morillo RN)2213 (Given [...] Jodie Mojica RN)1433 (Given - Provider: Jodie Mojica RN)2131 (Given - Provider: Avril East RN) 0947 (Given - Provider: Shauna Morillo RN)1500 (Not Given - Provider: Shauna Morillo RN - Reason: Patient/family refused)2214 (Given - Provider: Avril East RN) 1002 (Given - Provider: Dominique Garcia, DAVIN)1500 [...] Provider: Lexie Cordova)1433 (Given - Provider: Jodie Mojica RN)2131 (Given - Provider: Avril Esat, DAVIN) 0536 (Given - Provider: Avril East, DAVIN)1359 (Given - Provider: Shauna Morillo, DAVIN) polyethylene glycoL (Miralax) packet 17 g 17 [...] RN) 0900 (Not Given - Provider: Dominique Garcia, DAVIN - Reason: See comment)1002 (Given - Provider: Dominique Garcia, DAVIN) tamsulosin (Flomax) capsule 0.4 mg 0.4 mg, [...] discontinued. 1400 (Dose confirmed - Provider: Dominique Garcia, DAVIN - Comment: at home, pt to DC) [...] Routine documented in this encounter Care Teams Airplane Dispatch Clerk Relationship Specialty Start Date End Date Linda Mccray MD [address] [place] [address] PCP - General Family Medicine 10/20/16 documented as of this encounter
--- OUTSIDE RECORDS SUMMARY | 2024-07-17 21:51 | XMS_ITS | Encounter Summary ---
Author Organization [facility] Address [facility] [place] [address] Care Team Providers Care Customer Quality Engineer Name Role Phone Linda Mccray MD Primary Care Provider Encounter Details Date Type Department Care Team (Latest Contact Info) Description 11/22/2020 - 11/22/2020 11:59 PM EST Hospital Encounter Non-[place] [address] Leonardo Casillas MD [facility] [place] [address] CHB (complete heart block) Discharge Disposition: Home [...] Diagnosis Comments PCM INTERROGATION 3 MONTH Routine 11/23/2020 9:21 AM EST CHB (complete heart block) documented in this encounter Results * PCM INTERROGATION 3 MONTH (11/23/2020 9:21 AM EST) Anatomical Region Laterality Modality Other Narrative 12/06/2020 9:22 PM EST Cardiac Electrophysiology Cardiac Rhythm Device Remote Data Transmission Remote transmission of this patient's pacemaker data occurred November 22, 2020. ?? Cell voltage: Acceptable Estimated longevity ~11.7 years Presenting Rhythm at Remote Transmission: Ventricular paced sinus rhythm Comments (interval data since last reset August 17, 2020): Atrial Lead: Acceptable atrial lead capture threshold, sensing, and impedance Atrial pacing 11.0% Ventricular Lead: Acceptable ventricular lead capture threshold, sensing, and impedance Ventricular pacing 99.9% Dysrhythmia Detections: Atrial high rate episodes (trigger rate 171/minute): AT/AF <0.1% (1 detections of >0.5 minute duration, longest detection ~67 seconds duration with atrial tachycardia or possible oversensing during tachycardia) Ventricular high rate episodes detected (trigger with 5 cycles @ 150/minute): None... detected ventricular ectopy 0.2/hour (compared to 0.2/hour from prior interrogation), and detected 2-4 beat runs <0.1/hour (compared to <0.1/hour from prior interrogation) Physiologic Monitoring: The detected patient physical activity mostly was ~3.2 hours/day (daily averages). Rate Histogram: Unremarkable rate distribution, minimally determined by the programmed rate response feature. Alerts: None Conclusion: Normal device function. Ventricular pacing ~100%. No significant dysrhythmias detected. A moderate level of detected physical activity was detected. __ Leonardo Casillas MD, [facility] Cardiac Electrophysiology __ More detailed pacemaker and lead specifics, and other interrogation data, are available under the Card/Vasc tab. Leonardo Casillas MD IMPLANTABLE CARDIAC DEVICE documented in this encounter Visit Diagnoses Diagnosis CHB (complete heart block) Atrioventricular block, complete documented in this encounter Care Teams Customer Quality Engineer Relationship Specialty Start Date End Date Linda Mccray MD [address] [place] [address] PCP - General Family Medicine 10/20/16 documented as of this encounter
--- OUTSIDE RECORDS SUMMARY | 2024-07-17 21:51 | XMS_ITS | Encounter Summary ---
[place] [address] Care Team Providers Care Director Of Slot Operations Name Role Phone Linda Mccray MD Primary Care Provider [phone] Encounter Details Date Type Department Care Team ([facility] st Contact Info) Description 08/10/2020 10:00 AM EDT Office Visit Cardiology at [address] [phone] Katerina Reina RN Pacemaker battery depletion; Pacemaker - dual lead Medtronic Social History Tobacco Use Types Packs/Day Years [...] Sign Reading Time Taken Comments Blood Pressure 141/62 08/10/2020 10:03 AM EDT Pulse 71 08/10/2020 10:03 AM EDT Temperature - - Respiratory Rate - - Oxygen Saturation 100% 08/10/2020 10:03 AM EDT Inhaled Oxygen Concentration - - Weight 81.6 kg (180 lb) 08/10/2020 10:03 AM EDT Height 185.4 cm (6' 1) 08/10/2020 10:03 AM EDT Body Mass Index 23.75 08/10/2020 10:03 AM EDT documented in this encounter Progress Notes * Katerina Reina RN - 08/10/2020 10:00 AM EDT Images from the original note were not included. Clinical Electrophysiology Device Service Note London Neri is a 70 y.o. male who presents today for a post op pacemaker programming evaluation.He had a generator change done due to battery at [facility] by Dr Tarango 07/31/20. He is on route to [facility] in the next few days and we discussed being care full with lifting and wide range movements on the left side, and to closely monitor for any changes to the site or any signs and symptoms of infection. He takes Coumadin and ASA 81 mg.He has both mechanical aortic valve and also mechanical mitral prosthetic valve. PCP:Linda Mccray MD Final Parameters at implant: Leads implanted 2007 -per patient Ventricular electrode: Medtronic 5076-52cm Serial# [id number] Atrial electrode: Medtronic 5076-52cm Serial# [id number] Pulse generator: Your.MD [id number] Maral XT DR COLUNGA Serial# [id number] NEW Settings: DDDR 60/120/120 PAV 180 ms EULA 150 ms Underlying rhythm: SR 72 with high grade AV block V-escape 36 bpm Presenting: /DIALS INSPECTOR Atrial Lead: P wave: 4.3 mV Impedance: 513 ohms Threshold: 0.75 V @ 0.4 ms Ventricular Lead: R wave: 15.1 mV Impedance: 627 ohms Threshold: 1.25 V @ 0.4 ms Heart rate histograms: well distributed Pacing percentages: AP 5.3 %; DIALS INSPECTOR 99.9% Mode switch episodes: none VHR: 1 NSVT episode at 179 bpm for 9 beats Battery voltage: 3.21 V (LOOPING INSPECTOR:2.63 V) est 11.1 years remaining Wound assessment: Hematoma noted -patient states its getting smaller mepilex dressing removed steristrips remain intact and no drainage seen encouraged to call if the site gets larger,there is drainage or if he develops fever chills Reprogramming: iterative changes to assess device function Plan: Remote in 3 mos. RTC in 1 year-will establish with a provider when he reaches [place] Provider: Katerina Reina RN Attending: Dr Olivera documented in this encounter Plan of Treatment Not on file documented as of this encounter Visit Diagnoses Diagnosis Pacemaker battery depletion Fitting and adjustment of cardiac pacemaker Pacemaker - dual lead Medtronic Cardiac pacemaker in situ documented in this encounter Care Teams Director Of Slot Operations Relationship Specialty Start Date End Date Linda Mccray MD [address] [place] [address] PCP - General Family Medicine 10/20/16 documented as of this encounter
--- OUTSIDE RECORDS SUMMARY | 2024-07-17 21:51 | XMS_ITS | Encounter Summary ---
Author Organization [facility] [place] [address] Care Team Providers Care Maintenance Operator Name Role Phone Linda Mccray MD Primary Care Provider [phone] Encounter Details Date Type Department Care Team ([facility] st Contact Info) Description 07/29/2020 Telephone Cardiology at [address] [phone] Malou Olivares APRN [facility] [place] [address] Social History Tobacco Use Types Packs/Day Years [...] encounter Miscellaneous Notes * Telephone Encounter - Malou Olivares APRN - 07/29/2020 9:56 AM EDT 07/29/2020 London Neri Initial Contact Date: 07/29/2020 Initial contact time: 9:56 AM Referring Provider: Jocelyne Bishop APRN Patient Location: [facility] Past Medical History: AVR and MVR AV block Medtronic dual chamber pacemaker 2007 HTN Presenting Symptoms per OSH: At approximately 2 AM today woke up with dizziness, nausea, vomiting x 1 which made him present to the ED. Continues with mild lightheadedness, worsens with exertion. Case discussed with Dr. Margot Chaney who recommended transfer to [facility]. BP 156/66, 117/68 Pertinent Diagnostic Findings: Troponin negative PT/INR 35.3/3.6 BUN/creat 19/0.99 Plan: Accepted in transfer pending bed availability. I did let Rita Becker RN with EP know of patient'scurrent status at [facility] and plans to transfer to . COVID screening questions negative, test pending at [facility]. I have not personally interviewed or examined this patient; I have not personally reviewed EKGs. I encouraged Andrés Bishop APRN to contact us if there is any change in symptoms, decision-making, or further need for guidance in management. Malou Olivares APRN Cardiovascular Medicine Pager [phone] 07/29/2020 documented in this encounter Plan of Treatment Not on file documented as of this encounter Visit Diagnoses Not on filedocumented in this encounter Care Teams Maintenance Operator Relationship Specialty Start Date End Date Linda Mccray MD [address] [place] [address] PCP - General Family Medicine 10/20/16 documented as of this encounter
--- OUTSIDE RECORDS SUMMARY | 2024-07-17 21:51 | XMS_ITS | Encounter Summary ---
Author Organization [facility] Address [facility] [place] [address] Care Team Providers Care Sales Account Coordinator Name Role Phone Linda Mccray MD Primary Care Provider [phone] Encounter Details Date Type Department Care Team (Late st Contact Info) Description 07/29/2020 Notes Only Cardiology at [address] [phone] Elmer Minor PA [facility] [place] [address] Social History Tobacco Use Types Packs/Day Years [...] Progress Notes * Elmer Minor PA - 07/29/2020 12:22 PM EDT Cardiac Electrophysiology 70yo man with dual lead Medtronic pacemaker who called on 07/27/2020 to report new symptoms of diaphoresis, nausea, lightheadedness and uploaded a remote device report that demonstrated the device has reached SAMEERA(battery depletion) on 07/24. Device trip to SAMEERA resulted in switch to VVI @ 65 with rate sensor disabled. His is now RV paced ~98% on his report. His symptoms are a bit unusual but could be related to switch to VVI mode rather than previous dual chamber pacing. Though this does not pose any imminent danger of device failure(3 months remaining in SAMEERA mode) or life threat, his symptoms, if no other plausible etiology is identified, are sufficient to warrant expedited pulse generator replacement. He has been scheduled for PG replacement on 08/04/2020. He is anticoagulated with coumadin and should have INR targeted at 2.0-2.5 for procedural date. documented in this encounter Plan of Treatment Not on file documented as of this encounter Visit Diagnoses Not on filedocumented in this encounter Care Teams Sales Account Coordinator Relationship Specialty Start Date End Date Linda Mccray MD [address] [place] [address] PCP - General Family Medicine 10/20/16 documented as of this encounter
--- OUTSIDE RECORDS SUMMARY | 2024-07-17 21:51 | XMS_ITS | Encounter Summary ---
Author [place] [address] Care Team Providers Care Remodeler Name Role Phone Lnida Mccray MD Primary Care Provider [phone] Reason for Visit * Reason Onset Date Comments Letter Request From Patient 12/05/2016 Encounter Details Date Type Department Care Team ([facility] st Contact Info) Description 12/05/2016 Telephone [place] [phone] Mandi Arteaga Letter Request From Patient Social History Tobacco Use Types Packs/Day Years Used Date Smoking Tobacco: Former Cigarettes 1 35 Smokeless Tobacco: Former Quit: 1983 Sex and Gender Information Value Date Recorded Sex Assigned at Male 01/22/2023 2:25 PM EDT Gender Identity Male 01/22/2023 2:25 PM EDT Sexual Orientation Straight 01/22/2023 2: 25 PM EDT documented as of this encounter Miscellaneous Notes * Telephone Encounter - Mandi Arteaga - 12/05/2016 10:16 AM EST Mr. Neri needs a letter to be reimbursed for airline tickets, because Dr. Sagastume told him not to fly. documented in this encounter Plan of Treatment Not on file documented as of this encounter Visit Diagnoses Not on filedocumented in this encounter Care Teams Remodeler Relationship Specialty Start Date End Date Linda Mccray MD [address] [place] [address] PCP - General Family Medicine 10/20/16 documented as of this encounter
--- OUTSIDE RECORDS SUMMARY | 2024-07-17 21:51 | XMS_ITS | Encounter Summary ---
Author Organization [facility] Address [facility] [place] [address] Care Team Providers Care Information Technology Account Manager Name Role Phone Linda Mccray MD Primary Care Provider [phone] Encounter Details Date Type Department Care Team (Late st Contact Info) Description 11/26/2020 Telephone Cardiology at [address] [phone] Katerina Reina RN Social History Tobacco Use [...] Telephone Encounter - Katerina Reina RN - 11/26/2020 8:30 AM EST He called and sent a remote transmission because last night he woke up and stretched his left arm over his head and felt a sudden sharp pain in the top of the chest. He was concerned he may have disconnected something. His lead parameters were within normal limits, and there were no arrhythmias seen. He continues to feel as though his breathing is labored like he is breathing on the top half of his chest. He also senses a pressure in his mid chest. --he cannot give it a # but states it is noticeable. He took an aderall 2.5 mg yesterday which he said he takes a couple times a week for about 4 months now and wondered if this could be an interaction. -I told him this is unlikely as he has never had this reaction in the past 4 months. He does not feel any discomfort moving his arm today. I recommended he go to the ED to rule out Possible NV has his chest pressure and shortness of breath is persisting and this a new symptom for him. He voiced an understanding documented in this encounter Plan of Treatment Not on file documented as of this encounter Visit Diagnoses Not on filedocumented in this encounter Care Teams Information Technology Account Manager Relationship Specialty Start Date End Date Linda Mccray MD [address] [place] [address] PCP - General Family Medicine 10/20/16 documented as of this encounter
--- OUTSIDE RECORDS SUMMARY | 2024-07-17 21:51 | XMS_ITS | Encounter Summary ---
Author Organization [facility] [place] [address] Care Team Providers Care Healthcare Economics Consultant Name Role Phone Linda Mccray MD Primary Care Provider [phone] Encounter Details Date Type Department Care Team (Late st Contact Info) Description 03/03/2021 Ancillary Procedure Radiology Library at [facility] [place] [address] Navin Khalil MD [facility] [place] [address] Social History Tobacco Use Types Packs/Day Years [...] FILM LIBRARY STORAGE ONLY DX CHEST Routine 03/03/2021 12:00 AM EDT documented in this encounter Results * Film Library- Storage Only DX Chest (03/03/2021 12:00 AM EDT) Narrative [facility][NOTE 3] - 03/05/2021 8:53 AM EDT This exam is auto-finalizing. It's purpose is for storage only. Navin Khalil MD [facility] [place] FILM LIBRARY ORD ERABLES [place], [place] documented in this encounter Visit Diagnoses Not on filedocumented in this encounter Care Teams Healthcare Economics Consultant Relationship Specialty Start Date End Date Linda Mccray MD [address] [place] [address] PCP - General Family Medicine 10/20/16 documented as of this encounter
--- OUTSIDE RECORDS SUMMARY | 2024-07-17 21:51 | XMS_ITS | Encounter Summary ---
Author Organization [facility] Address [facility] [place] [address] Care Team Providers Care Fire Suppression Captain Name Role Phone Linda Mccray MD Primary Care Provider [phone] Reason for Visit * Reason Onset Date Comments Other 07/15/2020 Pacemaker Batter y Questions Encounter Details Date Type Department Care Team ([facility] Contact Info) Description 07/15/2020 Telephone Cardiology at [address] [phone] Toma Alfaro Other (Pacemaker Battery Questions) Social History Tobacco Use Types Packs/Day Years [...] encounter Miscellaneous Notes * Telephone Encounter - Toma Alfaro - 07/15/2020 3:58 PM EDT Device Clinic Graining Machine Operator - Telephone Note Date: 07/15/2020 Time: 4:00 PM Caller: Patient Call back #: [phone] Reason for call: Patient called regarding the battery of his pacemaker as when he saw Dr. Frost at [facility] on 06/25/20 he had about a month left before he tripped SAMEERA. He sent in the transmission and I let him know the report shows the estimated longevity as < 1 month. He is leaving for a business trip next week and wanted to discuss with Dr. Frost about getting the device replaced at a different facility. I let the patient know I would forward this message onto Dr. Frost. Toma Alfaro documented in this encounter Plan of Treatment Not on file documented as of this encounter Visit Diagnoses Not on filedocumented in this encounter Care Teams Fire Suppression Captain Relationship Specialty Start Date End Date Linda Mccray MD [address] [place] [address] PCP - General Family Medicine 10/20/16 documented as of this encounter
--- OUTSIDE RECORDS SUMMARY | 2024-07-17 21:51 | XMS_ITS | Encounter Summary ---
Author Organization [facility] [place] [address] Care Team Providers Care Portable Canteen Operator Name Role Phone Linda Mccray MD Primary Care Provider [phone] Reason for Visit * Reason Onset Date Comments Patient Education 07/31/2020 Implanted Card iac Device Teaching Encounter Details Date Type Department Care Team ([facility] st Contact Info) Description 07/31/2020 Notes Only Cardiology at [address] [phone] Jodie Shipley Patient Education (Implanted Cardiac Device Teaching ) Social History Tobacco Use Types Packs/Day [...] as of this encounter Progress Notes * Jodie Shipley - 07/31/2020 12:47 PM EDT Cardiac Electrophysiology Device Clinic - Post Implant Teaching Note London Neri : 1950 AGE: 70 y.o. Education: Reviewed the following topics with patient. - Implant ID card - Implant manual - Electromagnetic Compatibility (EMC) - Remote monitoring Answered all questions and provided implant folder containing written materials of the above topics. Patient demonstrated understanding and was instructed to call the Cardiac Device Clinic at [phone] with any questions. Plan: Post op check: To be scheduled 91 day check: To be scheduled Remote monitor: [employer] provides remote monitoring support through their [employer] department. A account maintenance representative from [employer] will contact patient in 1-3 days to discuss monitor options. [employer] will ship monitor to patient and then follow up to help with connectivity. Jodie Shipley 07/31/20 documented in this encounter Plan of Treatment Not on file documented as of this encounter Visit Diagnoses Not on filedocumented in this encounter Care Teams Portable Canteen Operator Relationship Specialty Start Date End Date Linda Mccray MD [address] [place] [address] PCP - General Family Medicine 10/20/16 documented as of this encounter
--- OUTSIDE RECORDS SUMMARY | 2024-07-17 21:51 | XMS_ITS | Encounter Summary ---
Author Organization [facility] [place] [address] Care Team Providers Care Sash Sticker Name Role Phone Linda Mccray MD Primary Care Provider [phone] Encounter Details Date Type Department Care Team ([facility] st Contact Info) Description 07/29/2020 External [place] [address] Malou Olivares APRN [facility] [address] [place] [id number] Social History Tobacco Use Types Packs/Day Years [...] Date/Time Associated Diagnosis Comments ECG SCAN Routine 07/29/2020 documented in this encounter Results * Scan Doc: ECG (07/29/2020) Malou Olivares APRN MEDIA MGR SCAN EXT O RDR/RSLT documented in this encounter Visit Diagnoses Not on filedocumented in this encounter Care Teams Sash Sticker Relationship Specialty Start Date End Date Linda Mccray MD [address] [place] [address] PCP - General Family Medicine 10/20/16 documented as of this encounter
--- OUTSIDE RECORDS SUMMARY | 2024-07-17 21:51 | XMS_ITS | Encounter Summary ---
Author Organization [facility] Address [facility] [place] [address] Care Team Providers Care Senior Chemical Engineer Name Role Phone Linda Mccray MD Primary Care Provider [phone] Encounter Details Date Type Department Care Team (Latest Contact Info) Description 02/22/2021 2:25 PM EDT - 02/22/2021 11:59 PM EDT Hospital Encounter Non-[place] [address] Jordana Tarango MD [facility] [place] [address] CHB (complete heart block) Discharge Disposition: Home [...] NO MORE THAN 2 WEEKS 01/15/2021 08/08/2023 dextroamphetamine-amphet amine (Adderall) 10 mg Tablet Take 10 mg [...] Diagnosis Comments PCM INTERROGATION 3 MONTH Routine 02/22/2021 2:26 PM EDT CHB (complete heart block) documented in this encounter Results * PCM INTERROGATION 3 MONTH (02/22/2021 2:26 PM EDT) Anatomical Region Laterality Modality Other Narrative 02/24/2021 7:56 AM EDT Outpatient remote interrogation report: See full report as a linked pdf document Date of transmission: 02/22/2021 Device target network analyst: SAMY Device type: DC PM Presenting rhythm: ASVP AP 17% CRISIS COUNSELOR 100% - Normal LVEF 2019 Battery: 3.12V, 10.5 years Episodes: no tachy no AF Stable lead trends. Activity OK Jordana Tarango MD 02/24/2021 7:55 AM Jordana Tarango MD IMPLANTABLE CARDIAC DEVICE documented in this encounter Visit Diagnoses Diagnosis CHB (complete heart block) Atrioventricular block, complete documented in this encounter Care Teams Senior Chemical Engineer Relationship Specialty Start Date End Date Linda Mccray MD [address] [place] [address] PCP - General Family Medicine 10/20/16 documented as of this encounter
--- OUTSIDE RECORDS SUMMARY | 2024-07-17 21:51 | XMS_ITS | Encounter Summary ---
Author Organization [facility] [place] [address] Care Team Providers Care Welding Machine Operator Plasma Arc Name Role Phone Linda Mccray MD Primary Care Provider [phone] Encounter Details Date Type Department Care Team (Late st Contact Info) Description 01/26/2017 1:00 PM EDT - 01/26/2017 2:00 PM EDT [place] [address] Lena Clark MD [facility] [place] [address] COLONOSCOPY, POLYPECTOMY, REMOVAL LESION BY SNARE (WRVU 4.57) Social History Tobacco Use Types Packs/Day Years [...] Sign Reading Time Taken Comments Blood Pressure 128/87 01/26/2017 1:52 PM EDT Pulse 67 01/26/2017 1:52 PM EDT Temperature - - Respiratory Rate 16 01/26/2017 1:52 PM EDT Oxygen Saturation 97% 01/26/2017 1:52 PM EDT Inhaled Oxygen Concentration - - Weight - - Height - - Body Mass Index - - documented in this encounter Discharge Instructions * Discharge Instructions* Yasmin Valenzuela, DAVIN - 01/26/2017 2:08 PM EDT Colonoscopy and polyp removal What to expect after the procedure You may feel a little more gassy or bloated than usual, this is normal. You should expect the return of normal bowel function in the next 2 to 3 days. Because some polyps were removed, you may see a little blood with the next few bowel movements, this should be a small amount ( less than a few tablespoons) and will resolve on it's own. ACTIVITY Because of the sedation that you received Your judgement and reaction time are effected ?? Go home and rest for the remainder for the day. You may resume your normal activities tomorrow ?? Change from one position to the next slowly because you may lose your balance unexpectedly. ?? Be careful on stairs, as you may be unsteady. ?? Avoid strenuous activity for 48 to 72 hrs FOR THE NEXT 24 HRS ?? DO NOT DRIVE OR OPERATE MACHINERY ?? DO NOT DRINK ALCOHOLIC BEVERAGES ?? DO NOT SIGN LEGAL DOCUMENTS ?? If you are a smoker: DO NOT SMOKE WHILE YOU ARE ALONE Diet ?? Start by eating small portions of foods that ordinarily will not upset your stomach, avoid gas producing foods for the next few days. ?? Be gentle with what you choose to start with ?? Drink plenty of fluids ( unless your doctor has told you not to). ?? A soft diet may be helpful for the next 3 days as this may help to keep the stools soft Medicines Avoid medicines that influence the way your blood clots for the next week. These would include anti-inflammatory medicine, such as ibuprofen( Advil, Motrin) and naproxen ( Aleve). If you need something for discomfort, Tylenol (Acetaminophen) is safe if used as directed. Your Doctor will tell you when to restart your prescribed blood thinners The IV site-- slight tenderness, or redness is normal, you can use warm compresses if you get concerned. If the tenderness +/or redness increases or foul drainage and a red streak occurs, please contact your PCP immediately. You have received a temporary mechanical hemostasis clipping device which is safe for use in MRI under certain condition. Please have MRI staff review the conditions in the small booklet that you received at the time of your procedure. When should you call for help? Call 911 anytime you think you may need emergency care. For example If you pass out (loss of consciousness) If you pass maroon or bloody stools If you have severe belly pain Call your healthcare provider or seek immediate medical care if: Your stools are black or tar like Your stools have streaks of blood that is more pronounced with each BM You have belly pain, or your belly is swollen and firm You vomit You have a fever You are very dizzy Watch closely for changes in your health, and be sure to contact your doctor if you have any problems. Your Doctor will let you know when you will need your next colonoscopy. The results of your test and your risk for colorectal cancer will help your doctor decide how often you need to be checked. Monday-Monday Same Day Endo [phone]-[phone] Otherwise contact [phone] and ask to speak to the clerk stenographer doorperson or luggage porter Follow up care is a sunshine part of your treatment and safety. Be sure to make and go to all appointments, and call your doctor if you are having problems. Discharge instructions reviewed with patient who expresses understanding documented in this encounter Medications at Time of Discharge Medication Sig Dispensed Refills Start Date End Date oxyCODONE (ROXICODONE) 5 mg Tablet TAKE ONE TO TWO TABLETS BY MOUTH EVERY 4 HOURS NEEDED 0 10/29/2016 07/30/2020 lisinopril (PRINIVIL;ZESTRIL) 5 mg Tablet TAKE ONE TABLET BY MOUTH EVERY DAY 4 10/31/2016 07/30/2020 cyclobenzaprine (FLEXERIL) 10 mg Tablet take 1 tablet by mouth three times a day 0 10/29/2016 07/30/2020 aspirin 81 mg Tablet, Delayed Release (E.C.) TAKE ONE TABLET BY MOUTH EVERY DAY 3 10/13/2016 08/08/2023 STOOL SOFTENER 100 mg Capsule take 1 capsule by mouth twice a day 0 10/29/2016 07/30/2020 bisacodyl (DULCOLAX) 5 mg Tablet, Delayed Release (E.C.) TAKE ONE TABLET BY MOUTH TWICE A DAY 0 10/21/2016 07/30/2020 hydroCODone-acetaminophe n (VICODIN) 5-500 mg per tablet 1-2 Tablet(s), PO, Q4-6H prn 09/21/2007 07/30/2020 warfarin (COUMADIN) 10 mg tablet 09/11/2007 12/16/2021 multivitamin (THERAGRAN) tablet 09/11/2007 07/31/2020 documented as of this encounter Progress Notes * Elmer Minor PA - 01/26/2017 3:00 PM EDT Cardiac Electrophysiology Asked to interrogate device following UGI with cautery. He has a dual lead [employer] pacemaker implanted at [facility], followed by Dr. Faria. Device Data: [employer] Adapta [id number] 09/26/2008 Atrial [id number] 09/26/2008 Ventricular [id number] 09/26/2008 AAI<=>DDD 60/130 P wave: 2.8mV R wave: 11.2-15.6mV Atrial impedance: 441 ohms Ventricular impedance: 580 ohms Atrial threshold: 0.75V @ 0.4ms Ventricular threshold: 1.25V @ 0.4ms Mode switch: 31; <0.1% -VS 12.5%; -MOTOR ROOM CONTROLLER 86.3%; AP-MOTOR ROOM CONTROLLER 1.2% Impression and Plan: 66yo man s/p upper GI with polypectomy using electrocautery. Device function confirmed normal. Provider: WASHINGTON Salas Provider#: [id number] Consult attending physician: Evangelist Casillas MD documented in this encounter H&P Notes * Lena Clark MD - 01/26/2017 12:58 PM EDT Gastroenterology and Hepatology Pre-Procedure History and Physical Exam Procedure: Colonoscopy: Indication: Screening 66 y.o. yo healthy male for avg risk screening. No family history of colon cancer or polyps. No diarrhea, constipation, or rectal bleeding. History of C. Difficile infection. HAs Patient Active Problem List Diagnosis Code ??? Clostridium difficile colitis A04.7 ??? Encounter for screening colonoscopy Z12.11 ??? 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 ASA 3 - Patient with moderate systemic disease with functional limitations Sedation Plan: moderate (conscious sedation) Risks and benefits of the procedure explained to the patient. Consent signed. documented in this encounter Plan of Treatment Not on file documented as of this encounter Procedures Procedure Name Priority Date/Time Associated Diagnosis Comments SURGICAL PATHOLOGY REPORT Routine 01/26/2017 1:49 PM EDT SPECIMEN TO PATHOLOGY Routine 01/26/2017 1:49 PM EDT COLONOSCOPY, POLYPECTOMY, REMOVAL LESION BY SNARE (WRVU 4.57) 01/26/2017 1:01 PM EDT screening COLONOSCOPY Routine 01/26/2017 12:20 PM EDT documented in this encounter Results * Surgical Pathology Report (01/26/2017 1:49 PM EDT) Final Diagnosis [id number] ?Location: 4T; EA10; A The signing pathologist has (i) examined the relevant preparation(s) for the specimen(s) and (ii) rendered or confirmed the diagnosis(es). . ?Surgical Pathology DIAGNOSIS Rectum, ??polypectomy: Tubular adenoma. CR-PX Electronically signed by: ??Shirley WISE PhD, Ga Salter Verified: ??01/30/2017 ?Pathologist CLINICAL INFORMATION Specimen Submitted: A - Polyp - rectum Clinical History: 66-year-old four average risk screening Clinical Diagnosis: Same SPECIMEN PROCESSING A - ??Labeled/Fixat reuben: Polyp-rectum, formalin. Quantity/Size: Single, 0.4 x 0.3 x 0.2 cm. Tissue Description: Ericson short polypoid tissue. Sections/Proces sing: Inked and bisected (T1) ??ah 01/30/2017 1:50 PM EDT [facility] GI Biopsy 01/26/2017 1:49 PM EDT 01/26/2017 1:49 PM EDT L Cade Clark MD PATHOLOGY/CYTOLOGY O DON Performing Organization Address [facility]/[place] [address] * Specimen to Pathology (surgical or derm) (01/26/2017 1:49 PM EDT) AP Specimen 01/26/2017 1:49 PM EDT 01/26/2017 1:49 PM EDT Narrative [facility] - 01/26/2017 1:49 PM EDT Specimen requisition ordered. ??Separate Pathology report to follow L Cade Clark MD PATHOLOGY/CYTOLOGY O DON Performing Organization Address City/[facility]/[place] [address] * COLONOSCOPY (01/26/2017 12:20 PM EDT) COLONOSCOPY [facility] Endoscopy Procedure Date: 01/26/2017 12:20 PM ? Patient Name: London Neri ? Date of : 1950 ? Age: 66 ? Order #: [id number] ? Instrument Name: [id number] ? Procedure: ? Colonoscopy Indications: ? Screening for colorectal malignant ? neoplasm Providers: ? LBlaine Clark MD, Estelita Berman, ? RN, Matti Montilla MD: ?Linda Mccray MD Medicines: ? Midazolam 5 [...] preparation was evaluated using ? the BBPS ([place] Bowel Preparation ? Scale) with scores of: [...] ? please call our office at ? [phone]. ? - For bright red rectal bleeding, [...] Mccray MD GENERAL SURGICAL ORD ERABLES [employer] documented in this encounter Visit Diagnoses Not on filedocumented in this encounter Administered Medications Inactive Administered Medications - up to 3 most recent administrations Medication Order MAR Action Action Date Dose Rate Site fentaNYL 50 mcg/mL multi-dose injection ONCE PRN, Starting on Idalmis 01/26/17 at 1304, Until Idalmis 01/26/17 at 1700, Intra-Operative (Intra-Procedure), Routine Given 01/26/2017 1:20 PM EDT 50 mcg Right Arm Given 01/26/2017 1:15 PM EDT 50 mcg Ri ght Arm Given 01/26/2017 1:12 PM EDT 50 mcg Ri ght Arm lactated ringers infusion 100 mL/hr, Intravenous, CONTINUOUS, Starting on Idalmis 01/26/17 at 1245, Until Idalmis 01/26/17 at 1438, Endoscopy (Day of Procedure) New Bag 01/26/2017 12:43 PM EDT 100 mL/hr 100 mL/hr midazolam (PF) (VERSED) 1 mg/mL multi-dose injection ONCE PRN, Starting on Idalmis 17 at 1304, Until Idalmis 17 at 1700, Intra-Operative (Intra-Procedure), Routine Given 01/26/2017 1:20 PM EDT 1 mg Right Arm Given 01/26/2017 1:15 PM EDT 1 mg Ri ght Arm Given 01/26/2017 1:12 PM EDT 1 mg Ri ght Arm documented in this encounter Active and Recently Administered Medications Times are shown in EDT. Continuous Medication Order 01/24/2017 01/25/2017 01/26/2017 lactated ringers infusion (CANCELED) 100 mL/hr, Intravenous, CONTINUOUS, Starting on Idalmis 17 at 1245, Until Idalmis 17 at 1438, Endoscopy (Day of Procedure) 1243 (New Bag - Prov ider: Geraldine Hernandez RN) PRN Medication Order 01/24/2017 01/25/2017 01/26/2017 fentaNYL 50 mcg/mL multi-dose injection (CANCELED) ONCE PRN, Starting on Idalmis 17 at 1304, Until Idalmis 17 at 1700, Intra-Operative (Intra-Procedure), Routine 1304 (Given - Provid er: Estelita Berman RN)1308 (Given - Provider: Estelita Berman RN)1312 (Given - Provider: Estelita Berman RN)1315 (Given - Provider: Estelita Berman RN)1320 (Given - Provider: Estelita Berman RN) midazolam (PF) (VERSED) 1 mg/mL multi-dose injection (CANCELED) ONCE PRN, Starting on Idalmis 417 at 1304, Until Idalmis 17 at 1700, Intra-Operative (Intra-Procedure), Routine 1304 (Given - Provid er: Estelita Berman RN)1308 (Given - Provider: Estelita Berman RN)1312 (Given - Provider: Estelita Berman RN)1315 (Given - Provider: Estelita Berman RN)1320 (Given - Provider: Estelita Berman RN) documented in this encounter Care Teams Welding Machine Operator Plasma Arc Relationship Specialty Start Date End Date Linda Mccray MD [address] [place] [address] PCP - General Family Medicine 10/20/16 documented as of this encounter
--- OUTSIDE RECORDS SUMMARY | 2024-07-17 21:51 | XMS_ITS | Encounter Summary ---
Author Organization [facility] Address [facility] [place] [address] Care Team Providers Care Multi Craft Maintenance Technician Name Role Phone Linda Mccray MD Primary Care Provider [phone] Encounter Details Date Type Department Care Team ([facility] st Contact Info) Description 08/10/2020 Telephone Cardiology at [address] [phone] Katerina Reina RN Social History Tobacco Use [...] Telephone Encounter - Katerina Reina RN - 08/10/2020 5:52 PM EDT I called and spoke with him asking he hold the ASA until the hematoma resolves As per Dr Morin ----- Message from Navin Morin MD sent at 08/10/2020 2:12 PM EDT ----- I think it is ok to temporarily hold ASA while awaiting hematoma resolution. Thanks D ----- Message ----- From: Katerina Reina RN Sent: 08/10/2020 1:38 PM EDT To: Navin Morin MD Hematoma -? Hold ASA at this point - no CAD -on Coumadin 2 mechanical valves documented in this encounter Plan of Treatment Not on file documented as of this encounter Visit Diagnoses Not on filedocumented in this encounter Care Teams Multi Craft Maintenance Technician Relationship Specialty Start Date End Date Linda Mccray MD [address] [place] [address] PCP - General Family Medicine 10/20/16 documented as of this encounter
--- OUTSIDE RECORDS SUMMARY | 2024-07-17 21:51 | XMS_ITS | Encounter Summary ---
Author Organization formerly [place] [address] Care Team Providers Care Hops Farmworker Name Role Phone Linda Mccray MD Primary Care Provider [phone] Encounter Details Date Type Department Care Team ([facility] st Contact Info) Description 07/28/2020 Telephone Cardiology at [address] [phone] Katerina Reina RN Social History Tobacco Use [...] Telephone Encounter - Katerina Reina RN - 07/28/2020 7:47 AM EDT I called him to let him know that he reached SAMEERA and his device had switched to an energy saving mode VVI 65 He is very symptomatic with this complaining of Dizziness and nausea -lightheaded I call eddie Champion from EP scheduling to get him scheduled GABBY he has been seen by Dr Frost pearl SAMEERA work up. He is on Coumadin She will contact him with a date and time documented in this encounter Plan of Treatment Not on file documented as of this encounter Visit Diagnoses Not on filedocumented in this encounter Care Teams Hops Farmworker Relationship Specialty Start Date End Date Linda Mccray MD [address] [place] [address] PCP - General Family Medicine 10/20/16 documented as of this encounter
--- OUTSIDE RECORDS SUMMARY | 2024-07-17 21:51 | XMS_ITS | Encounter Summary ---
Author Organization [facility] Address [facility] [place] [address] Care Team Providers Care Research Dairy Farm Supervisor Name Role Phone Linda Mccray MD Primary Care Provider [phone] Encounter Details Date Type Department Care Team (Late st Contact Info) Description 07/28/2020 Telephone Cardiology at [address] [phone] Serenity Fraser Social History Tobacco Use Types Packs/Day Years [...] encounter Miscellaneous Notes * Telephone Encounter - Serenity Fraser - 07/28/2020 2:54 PM EDT London Neri [id number] called for you today. He said that you told him if he ever needed anything to give you a call. His cell is [phone] paul e [phone], he said you would know whats going on with him in regards to his pacemaker but he wanted to talk with you about some symptoms he is having and how terrible and anxious he is feeling. Thanks! documented in this encounter Plan of Treatment Not on file documented as of this encounter Visit Diagnoses Not on filedocumented in this encounter Care Teams Research Dairy Farm Supervisor Relationship Specialty Start Date End Date Linda Mccray MD [address] [place] [address] PCP - General Family Medicine 10/20/16 documented as of this encounter
--- OUTSIDE RECORDS SUMMARY | 2024-07-17 21:51 | XMS_ITS | Encounter Summary ---
Author Organization [facility] [place] [address] Care Team Providers Care Sound Effects Supervisor Name Role Phone Linda Mccray MD Primary Care Provider [phone] Encounter Details Date Type Department Care Team (Late st Contact Info) Description 03/05/2021 8:55 AM EDT Ancillary Procedure Radiology Library at [facility] [place] [address] Navin Khalil MD [facility] [place] [address] Social History Tobacco Use Types Packs/Day Years [...] FILM LIBRARY STORAGE ONLY DX CHEST Routine 03/05/2021 8:54 AM EDT documented in this encounter Results * Film Library- Storage Only DX Chest (03/05/2021 8:54 AM EDT) Narrative [facility] - 03/05/2021 8:54 AM EDT This exam is auto-finalizing. It's purpose is for storage only. Navin Khalil MD [facility] FILM LIBRARY ORD ERABLES [place], [place] documented in this encounter Visit Diagnoses Not on filedocumented in this encounter Care Teams Sound Effects Supervisor Relationship Specialty Start Date End Date Linda Mccray MD [address] [place] [address] PCP - General Family Medicine 10/20/16 documented as of this encounter
--- OUTSIDE RECORDS SUMMARY | 2024-07-17 21:51 | XMS_ITS | Encounter Summary ---
Author Organization [facility] [place] [address] Care Team Providers Care Museum Archivist Name Role Phone Linda Mccray MD Primary Care Provider [phone] Encounter Details Date Type Department Care Team (Latest Contact Info) Description 01/26/2017 12:06 PM EDT - 01/26/2017 3:00 PM EDT Hospital En[place] [address] Lena Clark MD [facility] [place] [address] Discharge Disposition: Home Social History Tobacco Use [...] Sign Reading Time Taken Comments Blood Pressure 121/73 01/26/2017 2:30 PM EDT Pulse 62 01/26/2017 2:30 PM EDT pacer interogated Temperature - - Respiratory Rate 16 01/26/2017 1:52 PM EDT Oxygen Saturation 98% 01/26/2017 2:30 PM EDT Inhaled Oxygen Concentration - - Weight - - Height - - Body Mass Index - - documented in this encounter Discharge Instructions * Discharge Instructions* Lariviere, Yasmin, RN - 01/26/2017 2:08 PM EDT Colonoscopy and [...] to be checked. Monday-Monday Same Day Endo [phone]-8p Otherwise contact [phone] and ask to speak to the glass ribbon machine operator assistant decontamination technician Follow up care is a sunshine part [...] a dual lead Medtronic pacemaker implanted at [facility], followed by Dr. Faria. Device Data: Medtronic Adapta [id number] [id number] 09/26/2008 Atrial [id number] 09/26/2008 Ventricular [id number] 09/26/2008 AAI<=>DDD 60/130 P wave: 2.8mV R wave: 11.2-15.6mV Atrial impedance: 441 ohms Ventricular impedance: 580 ohms Atrial threshold: 0.75V @ 0.4ms Ventricular threshold: 1.25V @ 0.4ms Mode switch: 31; <0.1% -VS 12.5%; -LAWYER 86.3%; AP-LAWYER 1.2% Impression and Plan: 66yo man s/p upper GI with polypectomy using electrocautery. Device function confirmed normal. Provider: WASHINGTON Salas Provider#: [id number] Consult attending physician: Evangelist Casillas MD documented [...] Report (01/26/2017 1:49 PM EDT) Final Diagnosis [id number] ?Location: 4T; EA10; A The signing pathologist [...] x 0.3 x 0.2 cm. Tissue Description: Galliano short polypoid tissue. Sections/Proces sing: Inked and bisected (T1) ??ah 01/30/2017 1:50 PM EDT [facility] GI Biopsy 01/26/2017 1:49 PM EDT 01/26/2017 1:49 PM EDT L Cade Clark MD PATHOLOGY/CYTOLOGY O DON Performing Organization Address City/[facility]/[place] [address] * Specimen to Pathology (surgical or derm) (01/26/2017 1:49 PM EDT) AP Specimen 01/26/2017 1:49 PM EDT 01/26/2017 1:49 PM EDT Narrative [facility] - 01/26/2017 1:49 PM EDT Specimen requisition ordered. ??Separate Pathology report to follow L Cade Clark MD PATHOLOGY/CYTOLOGY O DON Performing Organization Address City/[facility]/[place] [address] * COLONOSCOPY (01/26/2017 12:20 PM EDT) COLONOSCOPY [facility] Endoscopy Procedure Date: 01/26/2017 12:20 PM ? Patient Name: London Neri ? Date of : 1950 ? Age: 66 ? Order #: [id number] ? Instrument Name: [id number] ? Procedure: ? Colonoscopy Indications: ? Screening for colorectal malignant ? neoplasm Providers: ? Stevenson Calrk MD, Estelita Berman, ? RN, Matti Montilla [...] preparation was evaluated using ? the BBPS ([place] Bowel Preparation ? Scale) with scores of: [...] ? please call our office at ? [phone]. ? - For bright red rectal bleeding, [...] MAR Action Action Date Dose Rate Site lactated ringers infusion 100 mL/hr, Intravenous, CONTINUOUS, Starting on Idalmis 01/26/17 at 1245, Until Idalmis 01/26/17 at 1438, Endoscopy (Day of Procedure) New Bag 01/26/2017 12:43 PM EDT 100 mL/hr 100 mL/hr documented in this encounter Active and Recently Administered Medications Times are shown in EDT. Continuous Medication Order 01/24/2017 01/25/2017 01/26/2017 lactated ringers infusion (CANCELED) 100 mL/hr, Intravenous, CONTINUOUS, Starting on Idalmis 17 at 1245, Until Idalmis 01/26/17 at 1438, Endoscopy (Day of Procedure) 1243 (New Bag - Prov ider: Geraldine Hernandez RN) PRN Medication Order 01/24/2017 01/25/2017 01/26/2017 fentaNYL 50 mcg/mL multi-dose injection (CANCELED) ONCE PRN, Starting on Idalmis 01/26/17 at 1304, Until Idalmis 01/26/17 at 1700, Intra-Operative (Intra-Procedure), Routine 1304 (Given - Provid er: Estelita Berman, DAVIN)1308 (Given - Provider: Estelita Berman RN)1312 (Given - Provider: Estelita Berman RN)1315 (Given - Provider: Estelita Berman RN)1320 (Given - Provider: Estelita Berman RN) midazolam (PF) (VERSED) 1 mg/mL multi-dose injection (CANCELED) ONCE PRN, Starting on Idalmis 01/26/17 at 1304, Until Idalmis 01/26/17 at 1700, Intra-Operative (Intra-Procedure), Routine 1304 (Given - Provid er: Estelita Berman RN)1308 (Given - Provider: Estelita Berman RN)1312 (Given - Provider: Estelita Berman RN)1315 (Given - Provider: Estelita Berman, DAVIN)1320 (Given - Provider: Estelita Berman RN) documented in this encounter Care Teams Museum Archivist Relationship Specialty Start Date End Date Linda Mccray MD [address] [place] [address] PCP - General Family Medicine 10/20/16 documented as of this encounter
--- OUTSIDE RECORDS SUMMARY | 2024-07-17 21:51 | XMS_ITS | Encounter Summary ---
Author Organization [facility] [place] [address] Care Team Providers Care Fish Technologist Name Role Phone Linda Mccray MD Primary Care Provider [phone] Encounter Details Date Type Department Care Team (Late st Contact Info) Description 01/19/2018 Ancillary Procedure Radiology Library at [facility] [phone] Linda Mccray MD [address] [place] [address] Social History Tobacco Use Types Packs/Day Years [...] FILM LIBRARY STORAGE ONLY DX SHOULDER Routine 01/19/2018 12:00 AM EDT documented in this encounter Results * Film Library- Storage Only DX Shoulder (01/19/2018 12:00 AM EDT) Narrative [facility] - 03/29/2023 4:43 AM EDT This exam is auto-finalizing. It's purpose is for storage only. Linda Mccray MD [facility] FILM LIBRARY ORD ERABLES Performing Organization Address City/State/[facility] Co de Phone Number [place], [place] documented in this encounter Visit Diagnoses Not on filedocumented in this encounter Care Teams Fish Technologist Relationship Specialty Start Date End Date Linda Mccray MD [address] [place] [address] PCP - General Family Medicine 10/20/16 documented as of this encounter
--- OUTSIDE RECORDS SUMMARY | 2024-07-17 21:51 | XMS_ITS | Encounter Summary ---
Author Organization [facility] [place] [address] Care Team Providers Care Reversing Mill Roller Name Role Phone Linda Mccray MD Primary Care Provider Encounter Details Date Type Department Care Team (Latest Contact Info) Description 10/24/2017 2:00 PM EST - 10/24/2017 11:59 PM EST Hospital Encounter [place] [phone] DELVALLE (dyspnea on exertion) Discharge Disposition: Home Social History Tobacco Use [...] 09/11/2007 07/31/2020 documented as of this encounter Procedure Notes * London Hoang Jr., MD - 10/24/2017 11:59 PM ESTAssociated Order(s): PULMONARY FUNCTION TEST Pulmonary Function Testing Oxygen saturation is adequate at rest, without evidence of ambulatory oxygen desaturation. Six minute walk distance is 456 meters. London Hoang MD Pulmonary Medicine documented in this encounter Plan of Treatment Not on file documented as of this encounter Procedures Procedure Name Priority Date/Time Associated Diagnosis Comments COMMON PULMONARY FUNCTION TEST Routine 10/25/2017 1:48 PM EST [place]VAL[place] (dyspnea on exertion) documented in this encounter Results * Pulmonary [...] abnormality documented in this encounter Care Teams Reversing Mill Roller Relationship Specialty Start Date End Date Linda Mccray MD [address] [place] [address] PCP - General Family Medicine 10/20/16 documented as of this encounter
--- OUTSIDE RECORDS SUMMARY | 2024-07-17 21:51 | XMS_ITS | Encounter Summary ---
Author Organization [facility] [place] [address] Care Team Providers Care Air And Hydronic Balancing Technician Name Role Phone Linda Mccray MD Primary Care Provider [phone] Encounter Details Date Type Department Care Team (Latest Contact Info) Description 07/14/2017 - 07/14/2017 11:59 PM EDT Hospital Encounter Radiology Library at [facility] [place] [phone] Jl Sagastume MD [facility] [place] [address] Pain Discharge Disposition: Home Social History Tobacco Use [...] 09/11/2007 07/31/2020 documented as of this encounter Plan of Treatment Not on file documented as of this encounter Procedures Procedure Name Priority Date/Time Associated Diagnosis Comments FILM LIBRARY STORAGE ONLY DX CHEST Routine 07/14/2017 12:00 AM EDT Pain documented in this encounter Results * Film Library- Storage Only DX Chest (07/14/2017 12:00 AM EDT) Narrative [facility] - 07/19/2017 9:02 AM EDT This exam is for storage only and is auto-finalizing. Jl Sagastume MD IMG FILM LIBRARY OR DERABLES Performing Organization Address City/State/[facility] de Phone Number [place], [place] documented in this encounter Visit Diagnoses Diagnosis Pain Generalized pain documented in this encounter Care Teams Air And Hydronic Balancing Technician Relationship Specialty Start Date End Date Linda Mccray MD [address] [place] [address] PCP - General Family Medicine 10/20/16 documented as of this encounter
--- OUTSIDE RECORDS SUMMARY | 2024-07-17 21:51 | XMS_ITS | Encounter Summary ---
Author Organization [facility] Address [facility] [place] [address] Care Team Providers Care Software Packaging Engineer Name Role Phone Linda Mccray MD Primary Care Provider [phone] Encounter Details Date Type Department Care Team (Late st Contact Info) Description 06/24/2020 Orders Only Cardiology at [address] [phone] Wojciech Frost MD [facility] [address] [place] [id number] Pacemaker battery depletion Social History Tobacco Use Types Packs/Day Years [...] depletion Fitting and adjustment of cardiac pacemaker documented in this encounter Care Teams Software Packaging Engineer Relationship Specialty Start Date End Date Linda Mccray MD [address] [place] [address] PCP - General Family Medicine 10/20/16 documented as of this encounter
--- OUTSIDE RECORDS SUMMARY | 2024-07-17 21:52 | XMS_ITS | Encounter Summary ---
Author Organization [facility] Address [facility] [place] [address] Care Team Providers Care Structural Steel Engineer Name Role Phone Linda Mccray MD Primary Care Provider [phone] Encounter Details Date Type Department Care Team (Latest Contact Info) Description 10/24/2016 - 10/24/2016 11:59 PM EST Hospital Encounter Radiology Library at [facility] [place] [address] Jl Sagastume MD [facility] [place] [address] Pain Discharge Disposition: Home Social History Tobacco [...] Sig Dispensed Refills Start Date End Date aspirin 81 mg Tablet, Delayed Release (E.C.) TAKE ONE TABLET BY MOUTH EVERY DAY 3 10/13/2016 08/08/2023 bisacodyl (DULCOLAX) 5 mg Tablet, Delayed Release (E.C.) TAKE ONE TABLET BY MOUTH TWICE A DAY 0 10/21/2016 07/30/2020 hydroCODone-acetaminophen (VICODIN) 5-500 mg per tablet 1-2 Tablet(s), PO, Q4-6H prn 09/21/2007 07/30/2020 warfarin (COUMADIN) 10 mg tablet 09/11/2007 12/16/2021 multivitamin (THERAGRAN) tablet 09/11/2007 07/31/2020 documented as of this encounter Plan of Treatment Not on file documented as of this encounter Procedures Procedure Name Priority Date/Time Associated Diagnosis Comments FILM LIBRARY STORAGE ONLY DX CHEST Routine 10/24/2016 12:00 AM EST Pain documented in this encounter Results * Film Library- Storage Only DX Chest (10/24/2016 12:00 AM EST) Narrative [facility] - 11/16/2016 3:27 PM EST This exam is for storage only and is auto-finalizing. Jl Sagastume MD IMG FILM LIBRARY OR DERABLES Performing Organization Address City/State/[facility] Co de Phone Number [place], [place] documented in this encounter Visit Diagnoses Diagnosis Pain Generalized pain documented in this encounter Care Teams Structural Steel Engineer Relationship Specialty Start Date End Date Linda Mccray MD [address] [place] [address] PCP - General Family Medicine 10/20/16 documented as of this encounter
--- OUTSIDE RECORDS SUMMARY | 2024-07-17 21:52 | XMS_ITS | Encounter Summary ---
Author Organization [facility] Address [facility] [place] [address] Care Team Providers Care Installer Interior Assemblies Name Role Phone Linda Mccray MD Primary Care Provider [phone] Encounter Details Date Type Department Care Team (Latest Contact Info) Description 11/11/2016 - 11/11/2016 11:59 PM EST Hospital Encounter Radiology Library at [facility] [place] [address] Jl Sagastume MD [facility] [place] [address] Pain Discharge Disposition: Home Social History Tobacco Use Types Packs/Day Years Used Date Smoking Tobacco: Former Sex and Gender Information Value Date Recorded [...] FILM LIBRARY STORAGE ONLY DX CHEST Routine 11/11/2016 12:00 AM EST Pain documented in this encounter Results * Film Library- Storage Only DX Chest (11/11/2016 12:00 AM EST) Narrative [facility] - 11/16/2016 3:19 PM EST This exam is for storage only and is auto-finalizing. Jl Sagastume MD IMG FILM LIBRARY OR DERABLES [place], [place] documented in this encounter Visit Diagnoses Diagnosis Pain Generalized pain documented in this encounter Care Teams Installer Interior Assemblies Relationship Specialty Start Date End Date Linda Mccray MD [address] [place] [address] PCP - General Family Medicine 10/20/16 documented as of this encounter
--- OUTSIDE RECORDS SUMMARY | 2024-07-17 21:52 | XMS_ITS | Encounter Summary ---
Author Organization [facility] Address [facility] [place] [address] Care Team Providers Care Hemp Fiber Taker Off Name Role Phone Linda Mccray MD Primary Care Provider [phone] Encounter Details Date Type Department Care Team (Latest Contact Info) Description 10/26/2016 - 10/26/2016 11:59 PM EST Hospital Encounter Radiology Library [place] [facility] [place] [address] Jl Sagastume MD [facility] [place] [address] Pain Discharge Disposition: Home Social History Tobacco [...] FILM LIBRARY STORAGE ONLY DX CHEST Routine 10/26/2016 12:00 AM EST Pain documented in this encounter Results * Film Library- Storage Only DX Chest (10/26/2016 12:00 AM EST) Narrative [facility] - 11/16/2016 3:25 PM EST This exam is for storage only and is auto-finalizing. Jl Sagastume MD IMG FILM LIBRARY OR DERABLES Performing Organization Address City/State/[facility] Co de Phone Number [place], [place] documented in this encounter Visit Diagnoses Diagnosis Pain Generalized pain documented in this encounter Care Teams Hemp Fiber Taker Off Relationship Specialty Start Date End Date Linda Mccray MD [address] [place] [address] PCP - General Family Medicine 10/20/16 documented as of this encounter
--- OUTSIDE RECORDS SUMMARY | 2024-07-17 21:52 | XMS_ITS | Encounter Summary ---
[place] [address] Care Team Providers Care Post Tronic Machine Operator Name Role Phone Linda Mccray MD Primary Care Provider [phone] Reason for Referral * Diagnostic Test (Routine) - Closed Specialty Diagnoses / Procedures Referred By Contac t Referred To Contact Radiology Diagnoses Recurrent traumatic pneumothorax, subsequent encounter Procedures CT Chest w Contrast [facility] Thor[facility] [address] [place] [phone] Referral ID Status Reason Start Date Expiration Date V isits Requested Visits Authorized [id number] Closed Specialty Service Requested 11/16/2016 11/16/2017 1 1 Reason for Visit * Diagnostic Test (Routine) - Closed Specialty Diagnoses / Procedures Referred By Contac t Referred To Contact Radiology Diagnoses Recurrent traumatic pneumothorax, subsequent encounter Procedures CT Chest w Contrast [facility] Thor[facility] [address] [place] [phone] Referral ID Status Reason Start Date Expiration Date V isits Requested Visits Authorized [id number] Closed Specialty Service Requested 11/16/2016 11/16/2017 1 1 Encounter Details Date Type Department Care Team (Latest Contact Info) Description 11/18/2016 7:45 AM EST - 11/18/2016 11:59 PM EST Hospital [place] [address] Jl Sagastume MD [facility] DR THORACIC SURGERY [place] [id number] Recurrent traumatic pneumothorax, subsequent encounter Discharge Disposition: Home Social History Tobacco Use Types Packs/Day Years Used Date Smoking Tobacco: Former Cigarettes 1 35 Smokeless Tobacco: Former Quit: 1982 Sex and Gender Information Value Date Recorded [...] Diagnosis Comments CT CHEST W CONTRAST Routine 11/18/2016 8 :13 AM EST Recurrent traumatic pneumothorax, subsequent encounter documented in this encounter Results * CT Chest w Contrast (11/18/2016 8:13 AM EST) Anatomical Region Laterality Modality Chest Computed Tomogra phy Impressions 11/18/2016 2:37 PM EST Bilateral extensive emphysematous changes of the lungs. No pneumothorax. Diffuse mild bronchiectasis. Trace pleural effusion bilaterally. Multiple subacute right-sided rib fractures with only early callus formation. Narrative 11/18/2016 2:37 PM EST EXAMINATION: CT CHEST W CONTRAST [...] right ventricle. Aortic and mitral valve replacement. Procedure Note Mohini Turk MD - 11/18/2016 EXAMINATION: CT CHEST W CONTRAST CLINICAL HISTORY: evaluate for recurrent L pneumothorax. TECHNIQUE: Chest CT with 60 ml of Omnipaque 350. COMPARISON: Outside chest radiograph November 11, 2016. FINDINGS: Quite extensive bilateral centrilobular and paraseptalemphysematous changes of the lungs. Large bullae are primarily seen subpleural alongthe apices, anterior, and medial aspect of the lungs. No pneumothorax. Small amount of layering material in the dependent portion of the rightmainstem bronchus has a low density consistent with mucus. Diffuse mildbronchiectatic changes are present. Trace pleural effusion bilaterally. No definite pathological enlargement of lymph nodes within the chest. Limited upper abdomen: Unremarkable findings of the partially visualized abdominal organs. Densely calcified atherosclerotic changes of the upper abdominal aorta. Skeleton: Multiple mildly displaced right-sided rib fractures involve atleast the 4th to 11th rib. Only some of these show early callus formation. Left-sided pacemaker with 2 leads ending in the right atrium and right ventricle. Aortic and mitral valve replacement. IMPRESSION Bilateral extensive emphysematous changes of the lungs. No pneumothorax. Diffuse mild bronchiectasis. Trace pleural effusion bilaterally. Multiple subacute right-sided rib fractures with only early callusformation. Jl Sagastume MD IMG CT ORDERABLES documented in this encounter Visit Diagnoses Diagnosis Recurrent traumatic pneumothorax, subsequent encounter documented in this encounter Administered Medications Inactive Administered Medications - up to 3 most recent administrations Medication Order MAR Action Action Date Dose Rate Site iohexol (OMNIPAQUE) 350 mg/mL solution 21,000 mg 21,000 mg (60 mL), Intravenous, ONCE PRN, 1 dose, Starting on Mon11/18/16 at 0813, Until Mon11/18/16 at 0814, Per Protocol, Warning Vesicant/Irritant Medication , Routine Given 11/18/2016 8:14 AM EST 21,000 mg documented in this encounter Care Teams Post Tronic Machine Operator Relationship Specialty Start Date End Date Linda Mccray MD [address] [place] [address] PCP - General Family Medicine 10/20/16 documented as of this encounter
--- OUTSIDE RECORDS SUMMARY | 2024-07-17 21:52 | XMS_ITS | Encounter Summary ---
Author Organization [facility] Address [facility] [place] [address] Care Team Providers Care Computer Systems Software Architect Name Role Phone Linda Mccray MD Primary Care Provider [phone] Encounter Details Date Type Department Care Team (Latest Contact Info) Description 10/23/2016 - 10/23/2016 11:59 PM EST Hospital Encounter Radiology Library at [facility] [place] [address] Jl Sagastume MD [facility] [address] Pain Discharge Disposition: Home Social History Tobacco [...] FILM LIBRARY STORAGE ONLY DX CHEST Routine 10/23/2016 12:00 AM EST Pain documented in this encounter Results * Film Library- Storage Only DX Chest (10/23/2016 12:00 AM EST) Narrative [facility] - 11/16/2016 3:29 PM EST This exam is for storage only and is auto-finalizing. Jl Sagastume MD IMG FILM LIBRARY OR DERABLES Performing Organization Address City/State/[facility] Co de Phone Number [place], [place] documented in this encounter Visit Diagnoses Diagnosis Pain Generalized pain documented in this encounter Care Teams Computer Systems Software Architect Relationship Specialty Start Date End Date Linda Mccray MD [address] [place] [address] PCP - General Family Medicine 10/20/16 documented as of this encounter
--- OUTSIDE RECORDS SUMMARY | 2024-07-17 21:52 | XMS_ITS | Encounter Summary ---
Author Organization [facility] Address [facility] [place] [address] Care Team Providers Care Green Meat Grader Name Role Phone Linda Mccray MD Primary Care Provider [phone] Encounter Details Date Type Department Care Team (Latest Contact Info) Description 10/25/2016 - 10/25/2016 11:59 PM EST Hospital Encounter Radiology Library at [facility] [place] [phone] Jl Sagastume MD [facility] [place] [address] Pain Discharge Disposition: Home Social History Tobacco [...] FILM LIBRARY STORAGE ONLY DX CHEST Routine 10/25/2016 12:00 AM EST Pain documented in this encounter Results * Film Library- Storage Only DX Chest (10/25/2016 12:00 AM EST) Narrative [facility] - 11/16/2016 3:26 PM EST This exam is for storage only and is auto-finalizing. Jl Sagastume MD IMG FILM LIBRARY OR DERABLES Performing Organization Address City/State/[facility] Co de Phone Number [place], [place] documented in this encounter Visit Diagnoses Diagnosis Pain Generalized pain documented in this encounter Care Teams Green Meat Grader Relationship Specialty Start Date End Date Linda Mccray MD [address] [place] [address] PCP - General Family Medicine 10/20/16 documented as of this encounter
--- OUTSIDE RECORDS SUMMARY | 2024-07-17 21:52 | XMS_ITS | Encounter Summary ---
Author Organization [facility] Address [facility] [address] Care Team Providers Care French Binding Folder Name Role Phone Linda Mccray MD Primary Care Provider [phone] Reason for Referral * Consultation (Routine) - Closed Specialty Diagnoses / Procedures Referred By Contac t Referred To Contact Gastroenterology Diagnoses Encounter for screening colonoscopy Radha Hallman MD [facility] [place] [address] Lena Clark MD [facility] [place] [address] Referral ID Status Reason Start Date Expiration Date V isits Requested Visits Authorized [id number] Closed Test Only 11/07/2016 11/07/2017 1 1 Reason for Visit * Reason Comments GI Problem * Consultation (Routine) - Closed Specialty Diagnoses / Procedures Referred By Contac t Referred To Contact Gastroenterology Diagnoses C-diff colitis, 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 Tirso Ghosh MD [address] [place] [address] [facility] [address] [place] [address] Referral ID Status Reason Start Date Expiration Date V isits Requested Visits Authorized [id number] Closed Connection Center 10/07/2016 10/07/2017 1 1 Encounter Details Date Type Department Care Team (Late st Contact Info) Description 11/07/2016 9:30 AM EST Office [place] [address] Radha Hallman MD [facility] [place] [address] Encounter for screening colonoscopy; Clostridium difficile colitis Social History Tobacco Use Types Packs/Day Years Used Date Smoking Tobacco: Former Sex and Gender Information Value Date Recorded Sex Assigned at Male 01/22/2023 2:25 PM EDT Gender Identity Male 01/22/2023 2:25 PM EDT Sexual Orientation Straight 01/22/2023 2: 25 PM EDT documented as of this encounter Last Filed Vital Signs Vital Sign Reading Time Taken Comments Blood Pressure 122/67 11/07/2016 9:33 AM EST Pulse 80 11/07/2016 9:33 AM EST Temperature - - Respiratory Rate - - Oxygen Saturation - - Inhaled Oxygen Concentration - - Weight 83.2 kg (183 lb 6.4 oz) 11/07/2016 9:33 A M EST boots Height 185.4 cm (6' 1) 11/07/2016 9:33 AM EST Body Mass Index 24.2 11/07/2016 9:33 AM EST documented in this encounter Patient Instructions * Patient Instructions* Radha Hallman - 11/07/2016 9:30 AM EST [facility] Clostridium Difficile Colitis: Care Instructions Your Care Instructions Clostridium difficile (also called C. difficile) are bacteria that can cause swelling and irritation of the large intestine, or colon. This inflammation is also called colitis. It can cause diarrhea,fever, and belly cramps. You may get C. difficile colitis if you take antibiotics. The infection is most common in people who are taking antibiotics while in the hospital. It is also common in older people in hospitals and nursing homes. Severe disease could cause the colon to swell to many times its normal size (toxic megacolon). Thiscan cause and needs emergency treatment. You may have a swollen belly that is painful or tender, a rapid heartbeat, and a fever. Follow-up care is a sunshine part of your treatment and safety. Be sure to make and go to all appointments, and call your doctor if you are having problems. It's also a good idea to know your test resultsand keep a list of the medicines you take. How can you care for yourself at home? ?? Your doctor may give you antibiotics to treat C. difficile colitis. If your doctor prescribes anantibiotic, he or she will give you a different antibiotic than the one that caused your infection.Take your antibiotics as directed. Do not stop taking them just because you feel better. You need to take the full course of antibiotics. ?? To prevent dehydration, drink plenty of fluids, enough so that your urine is light yellow or clear like water. Choose water and other caffeine-free clear liquids until you feel better. If you havekidney, heart, or liver disease and have to limit fluids, talk with your doctor before you increasethe amount of fluids you drink. ?? Begin eating small amounts of mild foods, if you feel like it. Try yogurt that has live culturesof lactobacillus (check the label). ?? Avoid spicy foods, fruits, alcohol, and caffeine until 48 hours after all symptoms go away. ?? Avoid chewing gum that contains sorbitol. ?? Avoid dairy products (except for yogurt with lactobacillus) while you have diarrhea and for 3 days after symptoms go away. ?? To prevent the spread of C. difficile, practice good hygiene. Keep your hands clean by washing them well and often with soap and clean, running water. Alcohol-based hand sanitizers do not kill C. difficile. When should you call for help? Call 911 if: ?? You passed out (lost consciousness). Call your doctor now or seek immediate medical care if: ?? You have a fever over 101??F or shaking chills. ?? You feel lightheaded or have a fast heart rate. ?? You pass stools that are almost always bloody. ?? You have signs of needing more fluids. You have sunken eyes and a dry mouth, and you pass only alittle dark urine. ?? You have severe belly pain with or without bloating. ?? You have severe vomiting and cannot keep down liquids. ?? You are not passing any stools or gas. Watch closely for changes in your health, and be sure to contact your doctor if: ?? You do not get better as expected. Where can you learn more? Visit our health information library at [email or web address] You can also view health information on [employer], your personal patient account. Log in or sign up today. Enter H511 in the search box to learn more about Clostridium Difficile Colitis: Care Instructions. ?? [id number] [employer]. Care instructions adapted under license by [facility]. This care instruction is for use with your licensed healthcare professional. If you have questions about a medical condition or this instruction, always ask your healthcare professional. [employer] disclaims any warranty or liability for your use of this information. Content Version: 11.0.362725; Current as of: March 15, 2016 documented in this encounter Progress Notes * Radha Hallman - 11/07/2016 9:30 AM EST [facility] Division of Gastroenterology and Hepatology Outpatient Consultation Reason for Visit: Refractory c difficile Referred by Tirso Ghosh History of Present Illness: [place] Neri is a 66 y.o. 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 During early August he was in the hospital in [facility] for a pneumothorax and he started having diarrhea. C difficile was found to be negative on 08/24 and on 09/02, but he was placed on cipro/flagyl during the hospitalization. When he left the hospital (off abx) his bowels had returned to normal. In the middle/end of August he started having watery stools again. He was tested and found po sitive for c difficile Ag and toxin on 09/20. At that time he was also tested for salmonella, shigella, campylobacter, shiga toxin, giardia, crypto which were all negative. He was placed on flagyl which led to resolution of diarrhea, but then diarrhea recurred following completion of treatment. C diff was negative on 10/05. He was treated with vancomycin which finished shortly after . Unfortunately he slipped and fell on the driveway and had another lung collapse which led to repeat hospitalization in early October. He was not started on any antibiotics during the most recent hospitalization. He has had only one loose stool event since leaving the hospital. No prior colonoscopy. He does have a history of hemorrhoids. Review of Systems: Constitutional: No weight loss, fevers, chills HEENT: No visual changes, URI symptoms Cardio: No chest pain/palpitations Resp: No cough, no SOB Hem/Lymph: no new lumps or bumps on body GI: see HPI : no dysuria Skin: no new rashes Musculoskeletal: no new joint pains Neuro: no new numbness, weakness in extremities All other systems negative except as above in HPI Past Medical History Diagnosis Date ??? C. difficile colitis Past Surgical History Procedure Laterality Date ??? Aortic valve replacement 1998 ??? Mitral valve replacement 1998 Social History: reports that he has quit smoking. He does not have any smokeless tobacco history onfile. Family History: family history is not on file. Current Outpatient Prescriptions Medication Sig Dispense Refill [...] BY MOUTH TWICE A DAY 0 ??? warfarin (COUMADIN) 10 mg tablet ??? hydroCODone-acetaminophen (VICODIN) 5-500 mg per tablet 1-2 Tablet(s), PO, Q4-6H prn (Patient not taking: No sig reported) ??? multivitamin (THERAGRAN) tablet (Patient not taking: No sig reported) No current facility-administered medications for this visit. No Known Allergies Physical Examination: BP 122/67 Pulse 80 Ht 185.4 cm (6' 1) Wt 83.2 kg (183 lb 6.4 oz) Comment: danay BMI 24.2 kg/m2 General: Pleasant, cooperative, NAD HEENT: NC/AT, PERRL, anicteric sclera, MMM, no erythema or exudate Neck: soft, supple, no cervical LAD Chest: CTAB, no wheeze, rale or rhonchi. Decreased air movement at LLL CVS: RRR, normal s1/s2, systolic murmur ABD: soft, NABS, NT/ND, No hepatosplenomegaly appreciated Rectal: Deferred Extremities: Warm and well perfused. No clubbing, cynanosis or edema Skin: No rash or lesion Neuro: AAOx3, Grossly non-focal. Labs: Reviewed in EDH/Scan Docs Reviewed in outside records Past Endoscopy: None prior Additional Testing: Reviewed available labs, imaging and endoscopy results in EDH/CIS as well as Scan Docs tab. IMPRESSION: [place] Neri is a 66 y.o. with PMH significant for aortic and mitral valve replacements (in 1998) on warfarin, s/p pacemaker placement, two recent traumatic pneumothoraces and rib fractures who is referred to GI for refractory c difficile colitis. Pt has experienced multiple recent episodes of diarrhea with one positive c difficile test (Ag and toxin) in August,. He was treated twice with flagyl and most recently with a course of vancomycin which ended in late September. Since the completion of this course of vancomycin ~3 weeks ago his bowel movements have been regular without loose/watery stools. He is at increased risk for future CDI and should have c diff PCR tested if diarrhea resumes. I would recommend a prolonged course of vancomycin with taper if CDI is found in the future. Could consider stool transplant if he fails a taper regimen, but would not recommend fecal transplant at this time. Regarding his screening colonoscopy, we discussed two possible options for proceeding. 1) We could perform the colonoscopy while on warfarin, but plan to not take biopsies and not do polypectomy. Given his age, no symptoms and no family history of early colon cancer, he carries about a ~50% risk ofhaving an adenomatous polyp. If he were to have a large adenomatous polyp, we would plan to bring his back for colonoscopy with polypectomy and a lovenox bridge. 2) Stop warfarin and complete lovenoxbridge with plan to complete polypectomy during procedure if needed. Pt will discuss these options with his environmental department manager and PCP. Problems: 1. Recurrent c difficile colitis 2. No prior screening colonoscopy 3. AVR and MVR on coumadin with goal INR 2.5-3.5 RECOMMENDATIONS: - Stool transplant not indicated at this time - Check c difficile PCR if diarrhea resumes - Avoid antibiotics, particularly those known to precipitate c difficile - If he is to require antibiotics for another reason, would recommend vancomycin 125mg bid during the course of the antibiotics and to be continued for one week afterwards - Will schedule for colonoscopy with Dr. Clark Follow up as needed for further symptoms as well as for colonoscopy This case was discussed with Dr. Eduardo Hallman MD Fellow in Gastroenterology [place] [id number] P: [phone] F: [phone] CC Linda Mccray MD [address] [place] [address] * Lena Clark MD - 11/07/2016 9:30 AM EST ATTENDING ADDENDUM I interviewed and examined London Neri with Dr. Hallman on in clinic today. I have discussed the case with her and confirm the history and sunshine physical findings outlined in this note. The assessment and plan were formulated in discussion with me at the time of this encounter, and I agree withthem as documented. documented in this encounter Plan of Treatment Scheduled Referrals Name Type Priority Associated Diagnoses Order Schedule Referral to Gastroenterology Outpatient Referral Routine Encounter for screening colonoscopy Ordered: 11/07/2016 documented as of this encounter Visit Diagnoses Diagnosis Encounter for screening colonoscopy Special screening for malignant neoplasms, colon Clostridium difficile colitis Intestinal infection due to clostridium difficile documented in this encounter Care Teams French Binding Folder Relationship Specialty Start Date End Date Linda Mccray MD [address] [place] [address] PCP - General Family Medicine 10/20/16 documented as of this encounter
--- OUTSIDE RECORDS SUMMARY | 2024-07-17 21:52 | XMS_ITS | Encounter Summary ---
Author Organization [facility] Address [facility] [place] [address] Care Team Providers Care Extract Mixer Name Role Phone Linda Mccray MD Primary Care Provider [phone] Encounter Details Date Type Department Care Team (Latest Contact Info) Description 10/27/2016 - 10/27/2016 11:59 PM EST Hospital Encounter Radiology Library at [facility] [place] [address] Jl Sagastume MD [facility] [place] [address] Pain Discharge Disposition: Home Social History Tobacco [...] FILM LIBRARY STORAGE ONLY DX CHEST Routine 10/27/2016 12:00 AM EST Pain documented in this encounter Results * Film Library- Storage Only DX Chest (10/27/2016 12:00 AM EST) Narrative [facility] - 11/16/2016 3:24 PM EST This exam is for storage only and is auto-finalizing. Jl Sagastume MD IMG FILM LIBRARY OR DERABLES Performing Organization Address City/State/[facility] Co de Phone Number [place], [place] documented in this encounter Visit Diagnoses Diagnosis Pain Generalized pain documented in this encounter Care Teams Extract Mixer Relationship Specialty Start Date End Date Linda Mccray MD [address] [place] [address] PCP - General Family Medicine 10/20/16 documented as of this encounter
--- OUTSIDE RECORDS SUMMARY | 2024-07-17 21:52 | XMS_ITS | Encounter Summary ---
Author Organization [facility] Address [facility] [place] [address] Care Team Providers Care Forestry Adviser Name Role Phone Linda Mccray MD Primary Care Provider [phone] Encounter Details Date Type Department Care Team (Latest Contact Info) Description 10/29/2016 - 10/29/2016 11:59 PM EST Hospital Encounter Radiology Library [place] [address] Jl Sagastume MD [facility] [place]AC[place] [address] Pain Discharge Disposition: Home Social History Tobacco [...] EVERY 4 HOURS NEEDED 0 10/29/2016 07/30/2020 cyclobenzaprine (FLEXERIL) 10 mg Tablet take [...] FILM LIBRARY STORAGE ONLY DX CHEST Routine 10/29/2016 12:00 AM EST Pain documented in this encounter Results * Film Library- Storage Only DX Chest (10/29/2016 12:00 AM EST) Narrative [facility] - 11/16/2016 3:22 PM EST This exam is for storage only and is auto-finalizing. Jl Sagastume MD IMG FILM LIBRARY OR DERABLES Performing Organization Address City/State/[facility] Co de Phone Number [place], [place] documented in this encounter Visit Diagnoses Diagnosis Pain Generalized pain documented in this encounter Care Teams Forestry Adviser Relationship Specialty Start Date End Date Linda Mccray MD [address] [place] [address] PCP - General Family Medicine 10/20/16 documented as of this encounter
--- OUTSIDE RECORDS SUMMARY | 2024-07-17 21:52 | XMS_ITS | Encounter Summary ---
Author Organization [facility] Address [facility] [place] [address] Care Team Providers Care Apparel Sales Associate Name Role Phone Linda Mccray MD Primary Care Provider [phone] Encounter Details Date Type Department Care Team (Latest Contact Info) Description 10/21/2016 - 10/21/2016 11:59 PM EST Hospital Encounter Radiology Library at [facility] [place] [phone] Jl Sagastume MD [facility] [address] Pain Discharge Disposition: Home Social History Tobacco [...] FILM LIBRARY STORAGE ONLY DX CHEST Routine 10/21/2016 12:00 AM EST Pain documented in this encounter Results * Film Library- Storage Only DX Chest (10/21/2016 12:00 AM EST) Narrative [facility] - 11/16/2016 3:30 PM EST This exam is for storage only and is auto-finalizing. Jl Sagastume MD IMG FILM LIBRARY OR DERABLES Performing Organization Address City/State/[facility] Co de Phone Number [place], [place] documented in this encounter Visit Diagnoses Diagnosis Pain Generalized pain documented in this encounter Care Teams Apparel Sales Associate Relationship Specialty Start Date End Date Linda Mccray MD [address] [place] [address] PCP - General Family Medicine 10/20/16 documented as of this encounter
--- OUTSIDE RECORDS SUMMARY | 2024-07-17 21:52 | XMS_ITS | Encounter Summary ---
Author Organization Replaced By [facility] Address [facility] [place] [address] Care Team Providers Care Quality Assurance Nurse Name Role Phone Linda Mccray MD Primary Care Provider [phone] Encounter Details Date Type Department Care Team (Latest Contact Info) Description 10/28/2016 - 10/28/2016 11:59 PM EST Hospital Encounter Radiology Library at [facility] [place] [phone] Jl Sagastume MD [facility] [place] [address] Pain Discharge Disposition: Home Social History Tobacco [...] FILM LIBRARY STORAGE ONLY DX CHEST Routine 10/28/2016 12:00 AM EST Pain documented in this encounter Results * Film Library- Storage Only DX Chest (10/28/2016 12:00 AM EST) Narrative [facility] - 11/16/2016 3:23 PM EST This exam is for storage only and is auto-finalizing. Jl Sagastume MD IMG FILM LIBRARY OR DERABLES Performing Organization Address City/State/[facility] Co de Phone Number [place], [place] documented in this encounter Visit Diagnoses Diagnosis Pain Generalized pain documented in this encounter Care Teams Quality Assurance Nurse Relationship Specialty Start Date End Date Linda Mccray MD [address] [place] [address] PCP - General Family Medicine 10/20/16 documented as of this encounter
--- OUTSIDE RECORDS SUMMARY | 2024-07-17 21:52 | XMS_ITS | Encounter Summary ---
[place] [address] Care Team Providers Care Freight Unloader Name Role Phone Linda Mccray MD Primary Care Provider [phone] Reason for Referral * Diagnostic Test (Routine) - Closed Specialty Diagnoses / Procedures Referred By Contac t Referred To Contact Radiology Diagnoses Recurrent traumatic pneumothorax, subsequent encounter Procedures CT Chest w Contrast [facility] [address] [place] [id number] Referral ID Status Reason Start Date Expiration Date V isits Requested Visits Authorized [id number] Closed Specialty Service Requested 11/16/2016 11/16/2017 1 1 Encounter Details Date Type Department Care Team ([facility] st Contact Info) Description 11/16/2016 Orders [place] [phone] Nydia Mauricio RN Recurrent traumatic pneumothorax, subsequent encounter Social History Tobacco Use Types [...] right-sided rib fractures with only early callusformation. Authorizing Provider Result Inocente Sagastume MD IMG CT ORDERABLES documented in this encounter Visit Diagnoses Diagnosis Recurrent traumatic pneumothorax, subsequent encounter Recurrent traumatic pneumothorax, subsequent encounter documented in this encounter Care Teams Freight Unloader Relationship Specialty Start Date End Date Linda Mccray MD [address] [place] [address] PCP - General Family Medicine 10/20/16 documented as of this encounter
--- OUTSIDE RECORDS SUMMARY | 2024-07-17 21:52 | XMS_ITS | Encounter Summary ---
Author Organization [facility] Address [facility] [place] [address] Care Team Providers Care Classroom Coordinator Name Role Phone Linda Mccray MD Primary Care Provider [phone] Reason for Visit * Reason Comments Chest Injury * Consultation (Routine) - Closed Specialty Diagnoses / Procedures Referred By Contac t Referred To Contact Thoracic Surgery Diagnoses Recurrent Left Pneumothoarx Procedures Consult, Test & Treat Luke Harper MD [facility] [place] [address] Jl Sagastume MD [facility] [address] [place] [address] Referral ID Status Reason Start Date Expiration Date V isits Requested Visits Authorized [id number] Closed Consult, Test & Treat 11/16/2016 11/16/2017 1 1 Encounter Details Date Type Department Care Team ([facility] st Contact Info) Description 11/18/2016 10:15 AM EST Office [place] [address] Jl Sagastume MD [facility] DR [place] [address] Chronic bullous emphysema Social History Tobacco Use Types Packs/Day Years Used Date Smoking Tobacco: Former Cigarettes 1 35 Smokeless Tobacco: Former Quit: 1982 Tobacco Cessation:Counseling Given: No Sex and Gender Information Value Date Recorded Sex Assigned at Male 01/22/2023 2:25 PM EDT Gender Identity Male 01/22/2023 2:25 PM EDT Sexual Orientation Straight 01/22/2023 2: 25 PM EDT documented as of this encounter Last Filed Vital Signs Vital Sign Reading Time Taken Comments Blood Pressure 106/63 11/18/2016 9:38 AM EST Pulse 80 11/18/2016 9:38 AM EST Temperature 36.7 ??C (98.1 ??F) 11/18/2016 9:38 AM ES T Respiratory Rate 18 11/18/2016 9:38 AM EST Oxygen Saturation 99% 11/18/2016 9:38 AM EST Inhaled Oxygen Concentration - - Weight 80.7 kg (178 lb) 11/18/2016 9:38 AM EST Height 185.4 cm (6' 1) 11/18/2016 9:38 AM EST Body Mass Index 23.48 11/18/2016 9:38 AM EST documented in this encounter Progress Notes * Jl Sagastume MD - 11/18/2016 10:15 AM EST Thoracic Surgery Attending Outpatient Consultation Note Jl Sagastume MD [place] [address] FAX: Referring Provider: Luke Harper MD [address] [place], [place] [address] [place] [address] Reason for Consultation: Traumatic Pneumothorax, concern for persistent pneumothorax Today, 11/18/2016, I saw Mr. Neri in the Thoracic Surgery Clinic [place] [facility] [place] consultation for a Left possible persistent pneumothorax at your request. His history was obtained from the patient. I have also reviewed his medical records and imaging prior to today's visit. As you know, Mr. Neri is a66 y.o. male with a recent history of repeated traumatic pneumothoraces on the left. He initially fell in mid-September after slipping on some ice. This required admission to the hospital with placement of a chest tube. This eventually resolved and he was discharged. He had another fall a few weeks later with 4 broken ribs on the right side. There was not obvious pneumothorax on the right at that time and he was discharged. He presented back to the hospital around with shortness ofbreath and chest pain. This was a recurrent pneumothorax on the left that was likely somewhat present during the second fall. He again had a chest tube placed and the air leak eventually resolved and he was discharged. He subsequently had follow up in mid-October with a CXR that was concerning for persistent pneumothorax on the left. He was referred here for evaluation. He had not recently had a CT of the chest performed. Today he denies any respiratory complaints. He is ambulating without difficulty and not on oxygen. His rib fracture pain is much improved and he has been using and incentive spirometer at home. I have personally reviewed the following scans and results that are part of the work up, including: Pulmonary function tests on 02/17/15 showed an FVC of 6.0L, 120% of predicted; and FEV1 of 3.8L, 102% predicted; and a DLCO of 63% predicted. CXR on 10/29/16 is read as having a small apical left pneumothorax with no right pneumothorax and a small left pleural effusion CXR on 11/11/16 is essentially stable from 10/29/[address] from 11/18/2016 demonstrates on my read significant bilateral upper lobe predominant emphysematous changes of the lung. There is no obvious pneumothorax. I don't see any obvious concerning pulmonary nodules. He denies fevers, night sweats, or chest pain on exertion. He has lost no weight. He is able to walk without much limitation and up 1-2 flights of stairs without difficulty. His ECOG performance status is 1 - Symptomatic but completely ambulatory, most of his limitation is secondary to pain from his rib fractures. A 14-point review of systems is otherwise negative, except where noted above. He has a past medical history of C. difficile colitis; COPD (chronic obstructive pulmonary disease); Emphysema of lung; Hemorrhoid; and Pneumothorax on left. He has a past surgical history that includes Aortic valve replacement (1998); Mitral valve replacement (1998); hernia repair; Cardiac valve replacement (1983); and Cardiac valve replacement (1998). He has a current medication list which includes the following prescription(s): oxycodone, lisinopril, cyclobenzaprine, aspirin, stool softener, bisacodyl, vicodin, coumadin, and multivitamin. He has No Known Allergies. His family history is significant for a father with CAD, Mother with liver cancer, possible colon cancer and a brother who from polio. A review of his social history shows: Social History Substance Use Topics ??? Smoking status: Former Smoker Packs/day: 1.00 Years: 35.00 ??? Smokeless tobacco: Former User Quit date: 1982 ??? Alcohol use Not on file Social alcohol use, no history of heavy abuse. On examination, Mr. Neri is a well nourished, well-developed male. He is alert and oriented. Vital Signs: BP 106/63 (Patient Position: Sitting) Pulse 80 Temp 36.7 ??C (98.1 ??F) (Temporal) Resp 18 Ht 185.4 cm (6' 1) Wt 80.7 kg (178 lb) SpO2 99% BMI 23.48 kg/m2 Body mass index is 23.48 kg/(m^2). His pulse is regular, breathing is unlabored and temperature is afebrile. In general he is in no acute distress. His pupils are reactive. His sclera are anicteric. He has no palpable cervical or supraclavicular adenopathy. The lung jay are coarse to auscultation bilaterally. Heart rate and rhythmare normal, and there is no murmur. The abdomen is soft and nontender. No organs or masses are palpable. There is no peripheral edema, cyanosis, or clubbing of the extremities. Pulses are full and equal bilaterally. Neurologic examination is grossly intact. Musculoskelatal exam is grossly intact with 5/5 strength. His skin is non-jaundiced. In summary, Mr. Neri is a 66 y.o. male with a likely separate traumatic pneumothoraces from fallsand significant bilateral emphysematous upper lobe predominant bullous disease. His last pulmonary function tests are nearly 2 years old, and should likely be repeated. Given that his left pneumothoraces were the direct results of mechanical fall traumas and his chest CT demonstrates no pneumothorax, I have recommended no immediate surgical intervention. His significant bullous disease would require the equivalent of lung volume reduction surgery (LVRS) to remove and at this time he does not functionally qualify for needing this. He is not particularly interested in having additional surgery,unless needed. Given that there is no pneumothorax, I am uncertain of the benefit of a semi-elective pleurodesis; particularly in someone who may require LVRS in the future if his COPD progresses. Inaddition, his mechanical mitral and aortic valves would require anticoagulation bridge with stopping his coumadin and he would be at risk of developing thromboembolic complications. I did explain that if he has another fall or develops another pneumothorax that he should go to the neared ED for evaluation and treatment and request to be transferred [place] [facility] [place] by thoracic surgery. He is in agreement with this plan. We have asked Mr. Neri to begin a regular exercise regiment that involves dedicated walking 30-60minutes per day, 6 days per week, or some equivalent form of exercise/activity. He has an incentivespirometer and has been instructed on its use. I have asked him to continue to use it several timesa day. I will leave his follow up with me open ended at this point. I do think it reasonable to repeat hispulmonary function tests to track the trajectory of his COPD, as he may become a candidate for LVRSin the future. He would prefer to get this done at [facility], and I will leave it up to Dr. Harper to order this. If he should have any further questions or concerns, he should feel free to contact us. Jl Sagastume MD 11/18/2016 documented in this encounter Plan of Treatment Not on file documented as of this encounter Visit Diagnoses Diagnosis Chronic bullous emphysema Emphysematous bleb documented in this encounter Care Teams Classroom Coordinator Relationship Specialty Start Date End Date Linda Mccray MD [address] [place] [address] PCP - General Family Medicine 10/20/16 documented as of this encounter
--- NOTE | 2024-07-17 21:57 | ED.GENADUL_ITS ---
Discharge Plan Disposition Patient Disposition: Home Condition: Stable Discharge Details Clinical Impression: Chest discomfort, Cardiac pacemaker in situ, Anxiety, Supratherapeutic INR Primary Care Provider: Linda Mccray ED Provider: Cayla Santiago Home Meds and New Rx's Prescriptions: No Action warfarin [Coumadin] 10 MG tablet 0 - 1 tab PO DIRECTED Qty: 90 4RF Rx Instructions: DOSE BASED ON INR betamethasone dipropionate 0.05 % cream 1 applic topical PRN PRN sildenafil 100 mg tablet 100 mg PO DAILY PRN Rx Instructions: administer 30 minutes to 4 hours before activity tamsulosin 0.4 mg capsule 0.4 mg PO DAILY Patient Comments: TAKE 1 CAPSULE BY MOUTH DAILY zolpidem 5 mg tablet 5 mg PO ONCE PRN rosuvastatin 20 mg tablet 20 mg PO DAILY Trelegy Ellipta 200-62.5-25 mcg blister with device 1 inh INHALATION DAILY Patient Comments: INHALE 1 PUFF INTO THE LUNGS DAILY albuterol sulfate 90 mcg/actuation HFA aerosol inhaler 2 puff INHALATION Q4H PRN Patient Comments: INHALE 2 PUFFS INTO THE LUNGS EVERY 6 HOURS NEEDED FOR WHEEZING OR SHORTNESS OF BREATH OR DIFFICULT BREATHING Discharge Instructions Additional Instructions: Your INR level is 5.2 today. Your goal range is between 2- 3. Please hold your dose tomorrow and then have your blood test rechecked HPI General Date/Time Provider Initiated Documentation: 07/17/24 21:54 . Limitations to Documentation: no limitations . Information obtained by: patient . HPI Narrative: 74-year-old gentleman with past medical history of valve replacement, pacemaker, A-fib, presents for evaluation as directed by his PCP. He reports that he had an appointment today and that he was explaining that he has been having some symptoms that he thought were anxiety. He calls them anxiety pains. He reports that it has been ongoing for the last few weeks. he reports this discomfort at the top of his abdomen. he denies any shortness of breath or nausea. No pain with exertion. He does not feel like he is having any chest pain. Did not really think he needed to come to the hospital for evaluation, but his doctor insisted. Related Data Home Medications ?Medication ?Instructions ?Recorded ?Confirmed warfarin 10 mg tablet (Coumadin) 0 - 1 tab PO DIRECTED #90 tabs 03/30/18 07/17/24 betamethasone dipropionate 0.05 % 1 applic topical PRN PRN 04/14/21 07/17/24 topical cream tamsulosin 0.4 mg capsule 0.4 mg PO DAILY 12/11/21 07/17/24 sildenafil 100 mg tablet 100 mg PO DAILY PRN 01/17/23 07/17/24 albuterol sulfate 90 mcg/actuation 2 puff inhalation Q4H PRN 07/17/24 07/17/24 aerosol inhaler fluticasone fur. 200 mcg-umeclid 1 inh inhalation DAILY 07/17/24 07/17/24 62.5 mcg-vilant 25 mcg inhalat.powder (Trelegy Ellipta) rosuvastatin 20 mg tablet 20 mg PO DAILY 07/17/24 07/17/24 zolpidem 5 mg tablet 5 mg PO ONCE PRN 07/17/24 07/17/24 Previous Rx's ?Medication ?Instructions ?Recorded warfarin 10 mg tablet (Coumadin) 0 - 1 tab PO DIRECTED #90 tabs 03/30/18 Allergies Allergy/AdvReac Type Severity Reaction Status Date / Time amiodarone Allergy Unknown Verified 07/17/24 21:36 General Stated Complaint: Chest Pain YASMIN: 2 Exam Narrative Exam Narrative: Review of Systems: All systems reviewed & are unremarkable except as noted in HPI and below Well-developed, no acute distress NCAT RRR no murmur Unlabored respiratory effort, CTAB Nondistended abdomen , soft non tender Extremities w/o edema No rashes or lesions. no focal neurologic deficits +anxious, refusing IV placement Course Vital Signs Vital signs: Vital Signs Temperature 36.4 C 07/17/24 21:31 Pulse 89 07/17/24 21:31 Respiratory Rate 14 07/17/24 21:31 Blood Pressure 168/69 H 07/17/24 21:31 Pulse Oximetry 98 07/17/24 21:31 Temperature 36.4 C 07/17/24 21:31 Temperature Source Oral 07/17/24 21:31 Pulse 89 07/17/24 21:31 Respiratory Rate 16 07/17/24 21:52 Respiratory Effort Normal, Non-Labored 07/17/24 21:52 Respiratory Depth Normal 07/17/24 21:52 Respiratory Pattern Normal 07/17/24 21:52 Blood Pressure 168/69 H 07/17/24 21:31 Pulse Oximetry 98 07/17/24 21:31 Oxygen Delivery Method Room Air 07/17/24 21:31 Oxygen Flow Rate 0 07/17/24 21:31 Pain Level 0 07/17/24 21:52 Comment sharp pain when he was having them. 07/17/24 21:31 Medical Decision Making Emergent evaluation of chest discomfort. Patient calls this anxiety pain and does not think that is true chest pain. He comes at his doctor's behest but did not feel like this was something that he needed to be evaluated for. This has been ongoing for several weeks. His EKG was reviewed and independently interpreted, paced 88, no change from prior. He does have significant risk factors so a lab work will be obtained. I have low suspicion for ACS, unstable angina, pneumonia or pneumothorax. 2245 Lab work reviewed. No leukocytosis or anemia. Metabolic panel does not have a any derangement. BNP slightly at the upper limit of normal. First troponin is less than the 99th percentile. His INR is elevated at 5.2. Patient will need to adjust his dosing to get back into the therapeutic range. 2330 Serial troponin flat. No indication for third troponin. Have recommended that he follow-up with his PCP for ongoing management of supratherapeutic INR. Quality:SDOH Health Related Social Needs: No Data to Display PFSH All Active Problems (Updated 07/17/24 @ 22:49 by Cayla Santiago MD) Supratherapeutic INR (Acute) Chest discomfort (Acute) Anxiety (Chronic) Left rotator cuff tear arthropathy (Acute) subacromial corticosteroid injection 02/07/23 Cardiac pacemaker in situ (Chronic) dual lead Med[employer] - PG replacement 07/31/2020 Heart valve replaced (Chronic 11/30/12) Aortic/Mitral mechanical Hypertension (Chronic) AV block, complete (Acute) Hematoma, postoperative (Acute) Tension pneumothorax, spontaneous (Acute) Lung blebs (Acute) Pneumothorax on left (Acute) Persistent air leak (Acute) Encounter for medication administration (Acute) Elevated INR (Acute) Hematuria (Acute) Multiple rib fractures involving four or more ribs (Acute) Traumatic hemo-pneumothorax (Acute) Blunt trauma (Acute) Multiple fractures of ribs of left side (Acute) Persistent atrial fibrillation (Acute) persistent since 03/09/2021 after VATS for spontaneous pneumo anticoag with coumadin for mechanical valves No RVR - hx CHB with pacemaker Medical History Near syncope C. difficile colitis COVID-19 vaccine administered 12/15/20 01/19/21 Recurrent spontaneous pneumothorax 02/2021 pt. stated he had this permanently fixed where they affixed the lung to the chest wall so it would stop recurring Dizziness Unilateral inguinal hernia Primary malignant neoplasm of bladder Mitral valve regurgitation replaced-1998 History of coagulation defect Clostridium difficile colitis (09/20/16) Anticoagulated on warfarin AVR/MVR; goal 2.5-3.5 Multiple rib fractures Surgical History History of aortic valve replacement [id number] 1998 with metal valve Presence of other heart-valve replacement (11/30/12) Aortic/Mitral Tonsillectomy and adenoidectomy Pacemaker (~2009) HERNIA REPAIR (~2007) Appendectomy Family History Mother Personal history of malignant neoplasm LIVER Father Heart disease Sister No problems noted. Brother No problems noted. 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 Current gender identity: male Do you feel safe at home: Yes Do you feel safe in your relationship?: Yes
[2024-07-17 22:15] LABS: Abs Immature Grans 0.03 10^3/uL (0.0-0.06); Absolute Basophil Count 0.05 10^3/uL (0.0-0.2); Absolute Lymphocyte Count 0.96 10^3/uL (1.2-3.4); Absolute Neutrophil Count 6.86 10^3/uL (1.2-6.7); Basophils % 0.6 %; Eosinophils % 1.1 %; HCT 40.1 % (40.0-50.0); HGB 13.5 g/dL (13.5-17.5); Immature Grans % 0.3 %; Lymphocytes % 10.7 %; MCH 29.5 pg (27.0-33.0); MCHC 33.7 % (32.0-36.0); MCV 88 fL (80-95); MPV 10.3 fL (8.0-11.0); Monocytes % 11.1 %; Neutrophils % 76.2 %; Platelet Count 180 10^3/uL (130-400); RBC 4.57 10^6/uL (4.36-5.78); RDW 13.3 % (11.8-14.1); RDW-SD 42.9 fL
[2024-07-17 22:19] LABS: Prothrombin Time 44.9 sec (9.1-11.1)
[2024-07-17 22:24] LABS: ALT 23 U/L (16-63); AST 32 U/L (15-37); Albumin 3.8 g/dL (3.4-5.0); Alkaline Phosphatase 58 U/L (46-116); Anion Gap 7.5 mmol/L (3-11); BUN 18 mg/dL (7-18); CO2 27.5 mmol/L (21.0-32.0); CREATININE 0.9 mg/dL (0.70-1.30); Calcium 9.2 mg/dL (8.5-10.1); Chloride 100 mmol/L (98-107); Estimated GFR 89.07 (mL/min/1.73m2); Glucose 116 mg/dL (74-106); Magnesium 1.8 mg/dL (1.8-2.4); Potassium 3.8 mmol/L (3.5-5.1); Sodium 135 mmol/L (136-145); Total Protein 7.5 g/dL (6.4-8.2)
[2024-07-17 22:30] LABS: INR 5.2 (0.9-1.1)
[2024-07-17 22:31] LABS: NT-proBNP 308 pg/mL (<300); Troponin I 24 ng/L (<or=76)
[2024-07-17 23:28] LABS: Troponin I 24 ng/L (<or=76)
--- NOTE | 2024-07-17 23:34 | DI.VRAD_ITS ---
PROCEDURE INFORMATION: Exam: XR Chest Exam date and time: 07/17/2024 10:11 PM Age: 74 years old Clinical indication: Other: Chest pain TECHNIQUE: Imaging protocol: Radiologic exam of the chest. Views: 1 view. COMPARISON: CR XR CHEST 2V PA LATERAL 02/21/2022 5:01 PM FINDINGS: Tubes, catheters and devices: Left subclavian transvenous pacemaker leads in the right cardiac chambers. Lungs: No focal consolidation or pulmonary nodules. No pulmonary edema. Pleural spaces: Unremarkable. No pleural effusion. No pneumothorax. Heart/Mediastinum: Changes of prior sternotomy with cardiac valve repairs. Vasculature: Atherosclerotic vascular disease. Bones/joints: Old, healed right posterolateral rib fractures. IMPRESSION: No acute cardiopulmonary abnormality. Dictated and Authenticated by: Jose Ji MD. Ordering:BlaineMAN Arana MD
== END 2024-07-17 23:40 | disposition home or self-care (01) ==
PROVIDERS: Emergency Provider Emergency Medicine; PCP Family Medicine
DX: R07.89 Other chest pain (principal); F41.9 Anxiety disorder, unspecified; R79.1 Abnormal coagulation profile; Z95.0 Presence of cardiac pacemaker
CPT/HCPCS: 36415; 80053; 93005; 99285; 71045; 83735; 83880; 84484; 85025; 85610; 93010; 99284

== ENCOUNTER 2024-08-30 13:21 | Emergency (ER) | payer MEDICARE, BC, SELFPAY ==
[2024-08-30] VITALS (17 sets, daily range): BP systolic 133–164; BP diastolic 39–59; PULSE 69–75; RESP 13–23; TEMP 36.9; O2SAT 97–100
--- OUTSIDE RECORDS SUMMARY | 2024-08-30 13:29 | XMS_ITS | Encounter Summary ---
Author Organization [facility] Address [address] [place] [address] Care Team Providers Care Rental Manager Name Role Phone Linda Mccray MD Primary Care Provider [phone] Encounter Details Date Type Department Care Team ([facility] st Contact Info) Description 03/25/2024 Lab Requisition [facility] Pathology & [facility] [address] [place] [address] Manish Ashley MD [address] [place] [id number] Encounter for other general examination Social [...] Organism ID Aspergillus terreus(A) 04/01/2024 14:15 EDT [facility] Comment: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 Mold COLLECTION OF INDUCED SPUTUM / Unknown 02/23/2024 9:50 EDT 03/25/2024 9:18 EDT Manish Ashley MD MICROBIOLOGY - GENER AL ORDERABLES [facility] [address] [place], [place] [id number] documented in this encounter Visit Diagnoses Diagnosis Encounter for other general examination documented in this encounter Care Teams Rental Manager Relationship Specialty Start Date End Date Linda Mccray MD [address] [place] [phone] PCP - General 05/12/20 documented as of this encounter
--- OUTSIDE RECORDS SUMMARY | 2024-08-30 13:29 | XMS_ITS | Encounter Summary ---
Author Organization [facility] Address [address] [place] [address] Care Team Providers Care Instrument Fitter Name Role Phone Unavailable Primary Care Provider Unavailabl e Reason for Visit * Reason Onset Date Comments Pacemaker/Device Check 10/21/2019 Encounter Details Date Type Department Care Team (Late st Contact Info) Description 10/21/2019 Orders Only [facility] [address] [place] [address] Sue Conner, LYNN Heart block (Primary Dx) [...] for interrogation details. Procedure Note Sue Conner, COPY DIRECTOR - 10/22/2019 Pt's. device transmission was reviewed. See scanned documents forinterrogation details. Sue Conner NP CV IMPLANTABLE CARDI AC DEVICE documented in this encounter Visit Diagnoses Diagnosis Heart block- Primary Conduction disorder, unspecified documented in this encounter
--- OUTSIDE RECORDS SUMMARY | 2024-08-30 13:29 | XMS_ITS | Encounter Summary ---
Author Organization [facility] Address [address] [place] [address] Care Team Providers Care Chicken Hatchery Helper Name Role Phone Unavailable Primary Care Provider Unavailabl e Reason for Visit * Reason Onset Date Comments Other 10/22/2019 Encounter Details Date Type Department Care Team ([facility] Contact Info) Description 10/22/2019 Telephone [facility] Card[facility] Clinic [address] [place] [address] Sue Conner, AGRONOMY LOCATION MANAGER Other Social History Tobacco Use Types Packs/Day [...] EST Pt called back, he is in [facility] until Early January. He is wondering if he could do another pacer transmission to check on battery life? If he needs to be seen he is set up with Cardiology there (no appt until 12/24/19)- [facility] Finishing Range Supervisor, Dr. Jason. . He asked that his [...]
--- OUTSIDE RECORDS SUMMARY | 2024-08-30 13:29 | XMS_ITS | Encounter Summary ---
Author Organization [facility] Address [address] [place] [address] Care Team Providers Care Business Intelligence Administrator Name Role Phone Unavailable Primary Care Provider Unavailabl e Encounter Details Date Type Department Care Team ([facility] st Contact Info) Description 07/19/2017 Historical Results Only [facility] - Main [address] [address] Sue Conner, FOOD PREP WORKER Social History Tobacco Use Types Packs/Day Years [...] (07/19/2017 11:05 EDT) THYROID [facility] - [facility] [place] 2.67 0.35 - 5.50 uIU/mL 07/19/2017 12:[address] [facility] 07/19/2017 11:0 5 EDT 07/19/2017 11:[address] [facility] - 07/19/2017 12:08 EDT Does PT Have a Latex Allergy? NO Sue Conner FOOD PREP WORKER CHEMISTRY & BLOOD GA S ORDERABLES [facility] documented in this encounter Visit Diagnoses Not on filedocumented in this encounter
--- OUTSIDE RECORDS SUMMARY | 2024-08-30 13:29 | XMS_ITS | Encounter Summary ---
Author Organization [facility] Address [address] [place] [address] Care Team Providers Care Supply Chain Buyer Name Role Phone Linda Mccray MD Primary Care Provider [phone] Encounter Details Date Type Department Care Team ([facility] st Contact Info) Description 06/29/2021 Lab Requisition [facility] Pathology & Laboratory Medicine - [facility] [address] [place], [place] [address] Outr Resulting Lab, Provider Social History Tobacco [...] Outr Resulting Lab MICROBIOLOGY - GENERAL ORDERABLES [facility] [address] [place] [address] * COVID-19 TESTING (06/29/2021 11:20 EDT) COVID-19 rt-PCR Result Negative Negative 06/30/2021 11:00 EDT [facility] Comment: This test has [...] history, and epidemiological information. Performed on the Nuforceher Fusion instrument Performing Lab [facility] 06/30/2021 11:00 EDT [facility] Swab 06/29/2021 11:2 0 EDT 06/29/2021 22:13 EDT Provider Outr Resulting Lab MICROBIOLOGY - GENERAL ORDERABLES [facility] [address] [place] [address] documented in this encounter Visit Diagnoses Not on filedocumented in this encounter Care Teams Supply Chain Buyer Relationship Specialty Start Date End Date Linda Mccray MD [address] [place] [address] PCP - General 05/12/20 documented as of this encounter
--- OUTSIDE RECORDS SUMMARY | 2024-08-30 13:29 | XMS_ITS | Patient Health Record ---
Author Organization [facility] Re[facility] august Billing Info Address [address] [place], [place] [address] Care Team Providers Care Social Media Developer Name Role Phone NASIM VYAS Unavailable [phone] Reason For Referral No Information Medications Medication SIG (Take, Route, Frequency, Duration) Notes Start Date End Date Status Warfarin Sodium 10 MG 1 tablet Oral Once a day Active Aspirin Adult Low Dose 81 MG 1 tablet Orally Once a day for 30 day(s) Active Problems Problem Type SNOMED Code ICD Code Onset Dates Problem Status W/U Status Risk Notes Problem 075598 Valvular heart disease (I38) Active confirmed Problem 2166280315091 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 Problem [id number] 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 Problem [id number] Anticoagulation monitoring, INR range 2.5-3.5 (Z79.01) Active confirmed Plan Of Treatment Pending Test Test Name Order Date EKG-COMPLETE (64732) IH 11/08/2019 Insurance Providers Payer Name Payer Address Payer Phone Subscriber Number Group Number Insured Name Patient Relationship to Insured Coverage Start Date Coverage End Date MEDICARE [place] PART B [address] [facility] [place], [place] [id number] [place] Neri Self - patient is the insured 0 Medical (General) History Surgical History Surgery Date(Month/Year) Valve replacement X Aortic and Mitral Pacemaker Implant Medtronic Hospitalization History Reason Date(Month/Year) INR testing / [facility] 10/2019
--- OUTSIDE RECORDS SUMMARY | 2024-08-30 13:29 | XMS_ITS | Encounter Summary ---
Author Organization [facility] Address [address] [place] [address] Care Team Providers Care Cistern Room Working Supervisor Name Role Phone Linda Mccray MD Primary Care Provider [phone] Encounter Details Date Type Department Care Team ([facility] st Contact Info) Description 02/22/2024 Lab Requisition [facility] Pathology & Laboratory Medicine - [facility] [address] [place] [address] Outr Resulting Lab, Provider Social History Tobacco [...] 610 - 1,616 mg/dL 02/23/2024 9:39 EDT [facility] IgA 203 85 - 499 mg/dL 02/23/2024 9:39 EDT [facility] IgM 99 35 - 242 mg/dL 02/23/2024 9:39 EDT [facility] Blood VENOUS BLOOD / Unknown 02/22/2024 15:15 EDT 02/22/2024 21:30 EDT Provider Outr Resulting Lab CHEMISTRY & BLOOD GAS ORDERABLES [facility] [address] [place] [address] documented in this encounter Visit Diagnoses Not on filedocumented in this encounter Care Teams Cistern Room Working Supervisor Relationship Specialty Start Date End Date Linda Mccray MD [address] [place] [address] PCP - General 05/12/20 documented as of this encounter
--- OUTSIDE RECORDS SUMMARY | 2024-08-30 13:29 | XMS_ITS | Encounter Summary ---
Author Organization [facility] Address [address] [place] [address] Care Team Providers Care Oil Winterizer Name Role Phone Linda Mccray MD Primary Care Provider [phone] Encounter Details Date Type Department Care Team ([facility] st Contact Info) Description 11/03/2020 Lab Requisition [facility] Pathology & Laboratory Medicine - [facility] [address] [place], [place] [address] Outr Resulting Lab, Provider Social History Tobacco [...] Outr Resulting Lab MICROBIOLOGY - GENERAL ORDERABLES [facility] [address] [place] [address] * COVID-19 TESTING (11/03/2020 10:30 EST) COVID-19 rt-PCR Result Negative Negative 11/04/2020 16:22 EST [facility] Comment: Negative results do not preclude 2019-nCoV infection and should not be used as the sole basis for treatment or other patient management decisions. Negative results must be combined with clinical observations, patient history, and epidemiological information. This test was developed and its performance characteristics determined by [facility]. It has not been cleared or approved [...] testing. This test is based on the [facility] COVID-19 Emergency Use Authorization (EUA) assay, with minor modification as defined by the FDA Performed on the Filmmortal Flex. Performing Lab [facility] 11/04/2020 16:22 EST [facility] Swab 11/03/2020 10:3 0 EST 11/03/2020 15:37 EST Provider Outr Resulting Lab MICROBIOLOGY - GENERAL ORDERABLES [facility] [address] [place] [address] documented in this encounter Visit Diagnoses Not on filedocumented in this encounter Care Teams Oil Winterizer Relationship Specialty Start Date End Date Linda Mccray MD [address] [place] [address] PCP - General 05/12/20 documented as of this encounter
--- OUTSIDE RECORDS SUMMARY | 2024-08-30 13:29 | XMS_ITS | Clinical Summary ---
Author Organization [facility] Address [facility] [place] [address] Care Team Providers Care Hotel Custodian Name Role Phone Linda Mccray MD Primary Care Provider [phone] Allergies Active Allergy Reactions Criticality Noted Date [...] 08/08/2023 Active tamsulosin (Flomax) 0.4 mg capsule TAKE ONE CAPSULE BY MOUTH EVERY DAY 90 capsule 3 08/19/2024 Active Active Problems Problem Noted Date Diagnosed Date Rib fractures 12/12/2021 AV block, complete 03/30/2021 Lung blebs 03/30/2021 Other air leak 03/30/2021 Postoperative hematoma 03/30/2021 Tension pneumothorax, spontaneous 03/30/2021 Typical atrial flutter 03/15/2021 Recurrent spontaneous pneumothorax 03/05/2021 Near syncope 07/30/2020 Pacemaker - dual lead Medtronic 07/29/2020 Aortic insufficiency 05/08/2020 Current use of tank terminal gauger anticoagulation 020 Heart block 05/08/2020 Chronic bullous emphysema 11/18/2016 Clostridium difficile colitis 11/07/2016 Encounter for screening colonoscopy 11/07/2016 Heart valve replaced 11/30/2012 Resolved Problems Problem Noted Date Diagnosed Date Resolved Date Pacemaker complications, initial encounter 07/30/2020 03/15/2021 Pacemaker battery depletion 07/28/2020 03/15/2021 Overview (07/28/2020): Added automatically from request for surgery [id number] Encounters Date Type Department Care Team Description 08/18/2024 [place] [address] Winifred Manning APRN from Last 3 Months Immunizations Name Administration Dates Next Due Influenza Vaccine, Whole 09/26/2005 Pneumococcal 23-Valent Polysaccharide (Pneumovax 23) 09/26/2005 Social History Tobacco Use Types Packs/Day Years [...] 01/26/2017 Colorectal Cancer Screening 01/26/2022 Covid-19 Vaccine ( - season) 2024 Influenza (Flu) vaccine (1 o f 1 - Influenza standard series) 06/23/2024 09/26/2005 Sigmoidoscopy (10 year) with FIT yearly 01/26/2027 0 01/26/2017, 01/26/2017 Medical Devices Implanted Type Area Financial Manager Device Identifier Shelf Expiration Date Model / Serial / Lot Mdt :[id number] : [id number] 9/2020 Implanted:06/2020 by Jordana Tarango MD (Quantity not on file) Pacemaker Chest Medtronic Inc. [id number] / [id number] / Procedures Procedure Name Priority Date/Time Associated Diagnosis Comments COLONOSCOPY Routine 01/26/2017 12:20 PM EDT from Last 3 Months or Most Recently Relevant to Health Maintenance Results * COLONOSCOPY (01/26/2017 12:20 PM EDT) [facility] Signature COLONOSCOPY [facility] Endoscopy Procedure Date: 01/26/2017 12:20 PM ? Patient Name: [place] Neri ? Date of : 1950 ? Age: 66 ? Order #: [id number] ? Instrument Name: [id number] ? Procedure: ? Colonoscopy Indications: ? Screening for colorectal malignant ? neoplasm Providers: ? Stevenson Clark MD, Estelita Berman, ? RN, Matti [...] preparation was evaluated using ? the BBPS (Preston Bowel Preparation ? Scale) with scores of: [...] ? please call our office at ? [phone]. ? - For bright red rectal bleeding, [...] Documents on File Type Date Recorded Patient Photograph Printer Expl anation Advance Directives and Michelet cadena [...] Status decision made by: Patient Care Teams Hotel Custodian Relationship Specialty Start Date End Date Linda Mccray MD [address] [place] [address] PCP - General Family Medicine 10/20/16
--- OUTSIDE RECORDS SUMMARY | 2024-08-30 13:29 | XMS_ITS | Encounter Summary ---
Author Organization [facility] Address [address] [place] [address] Care Team Providers Care Cupola Melter Helper Name Role Phone Linda Mccray MD Primary Care Provider [phone] Encounter Details Date Type Department Care Team ([facility] st Contact Info) Description 03/28/2022 11:30 EDT Phlebotomy Only [facility] Laboratory Services - [address] [address] Retail Banker, [facility] Atrial fibrillation ([facility]) (Primary Dx) Social History Tobacco Use [...] PROTIME Routine 03/28/2022 11:32 EDT Atrial fibrillation ([facility]) documented in this encounter Results * (ABNORMAL) PROTIME (03/28/2022 11:32 EDT) I.N.R. 2.2(H) 0.9 - 1.1 Ratio 03/28/2022 12:32 EDT [facility] Pro Time 25.8(H) 10.4 - 12.6 secs 03/28/2022 12:32 EDT [facility] Blood VENOUS BLOOD / Unknown Venipuncture / Unknown 03/28/2022 11:32 EDT 03/28/2022 11:33 EDT Narrative [facility] - 03/28/2022 12:32 EDT Moderate Intensity Coumadin INR = 2.0-3.0 Adjustments in anticoagulant therapy dose should be based on the INR and NOT on the Protime. Linda Mccray MD HEMATOLOGY & PF4 ORD ERABLES [facility] Organization Address City/State/ZIP Co de Phone Number [facility] [address] [place] [address] documented in this encounter Visit Diagnoses Diagnosis Atrial fibrillation ([facility] Primary Atrial fibrillation documented in this encounter Care Teams Cupola Melter Helper Relationship Specialty Start Date End Date Linda Mccray MD [address] [place] [address] PCP - General 05/12/20 documented as of this encounter
--- OUTSIDE RECORDS SUMMARY | 2024-08-30 13:29 | XMS_ITS | Encounter Summary ---
Author Organization [facility] Address [address] [place] [address] Care Team Providers Care Ultrasound Coordinator Name Role Phone Linda Mccray MD Primary Care Provider [phone] Encounter Details Date Type Department Care Team ([facility] st Contact Info) Description 11/17/2021 Lab Requisition [facility] Pathology & Laboratory Medicine - [facility] [address] [place], [place] [address] Outr Resulting Lab, Provider Social History Tobacco [...] Lab MICROBIOLOGY - GENERAL ORDERABLES [facility] [address] [place] [address] * COVID-19 TESTING (11/16/2021 14:10 EST) COVID-19 rt-PCR Result Negative Negative 11/18/2021 13:24 EST [facility] Comment: This test has not [...] was performed using the sheri SARS-CoV-2 assay ([employer] on the Sheri 6800 System Performing Lab Sheri 6800 [facility] 11/18/2021 13:24 EST [facility] Swab 11/16/2021 14:1 0 EST 11/17/2021 17:04 EST Provider Outr Resulting Lab MICROBIOLOGY - GENERAL ORDERABLES Performing Organization Address City/State/[facility] [[email or web address]] Co de Phone Number [facility] [address] [place] [address] documented in this encounter Visit Diagnoses Not on filedocumented in this encounter Care Teams Ultrasound Coordinator Relationship Specialty Start Date End Date Linad Mccray MD [address] [place] [phone] PCP - General 05/12/20 documented as of this encounter
--- OUTSIDE RECORDS SUMMARY | 2024-08-30 13:29 | XMS_ITS | Encounter Summary ---
Author Organization [facility] Address [address] [place] [address] Care Team Providers Care Labor Contract Analyst Name Role Phone Linda Mccray MD Primary Care Provider [phone] Encounter Details Date Type Department Care Team ([facility] st Contact Info) Description 11/30/2020 Lab Requisition [facility] Pathology & Laboratory Medicine - [facility] [address] [place], [place] [address] Outr Resulting Lab, Provider Social History Tobacco [...] Outr Resulting Lab MICROBIOLOGY - GENERAL ORDERABLES [facility] [address] [place] [address] * COVID-19 TESTING (11/29/2020 21:20 EST) COVID-19 rt-PCR Result Negative Negative 11/30/2020 22:11 EST [facility] Comment: This test has [...] history, and epidemiological information. Performed on the EXO5 Fusion instrument Performing Lab [place] [facility] 11/30/2020 22:11 EST [facility] Swab 11/29/2020 21:2 0 EST 11/30/2020 17:03 EST Provider Outr Resulting Lab MICROBIOLOGY - GENERAL ORDERABLES [facility] [address] [place] [address] documented in this encounter Visit Diagnoses Not on filedocumented in this encounter Care Teams Labor Contract Analyst Relationship Specialty Start Date End Date Linda Mccray MD [address] [place] [phone] PCP - General 05/12/20 documented as of this encounter
--- OUTSIDE RECORDS SUMMARY | 2024-08-30 13:29 | XMS_ITS | Encounter Summary ---
Author Organization [facility] Address [address] [place] [address] Care Team Providers Care Sole Skiver Name Role Phone Unavailable Primary Care Provider Unavailabl e Encounter Details Date Type Department Care Team (Late st Contact Info) Description 01/30/2019 Historical Results Only [facility] Lab - Main [address] [address] Linda Mccray MD [address] [place] [phone] Social History Tobacco Use Types Packs/Day [...] * (ABNORMAL) PROTIME (01/30/2019 14:36 EDT) Pathologist [facility] 20.8(H) 9.5 - 13.4 SECONDS 01/30/2019 15:50 EDT [facility] 01/30/2019 14:3 6 EDT 01/30/2019 14:36 EDT Narrative [facility] - 04/20/2019 12:34 EDT Does PT Have a Latex Allergy? NO Linda Mccray MD HEMATOLOGY & PF4 ORD ERABLES [facility] documented in this encounter Visit Diagnoses Not on filedocumented in this encounter
--- OUTSIDE RECORDS SUMMARY | 2024-08-30 13:29 | XMS_ITS | Referral Summary ---
Author Organization [facility] Address [address] [place] [address] Care Team Providers Care Welder Apprentice Combination Name Role Phone Linda Mccray MD Primary Care Provider [phone] Medications Medication Sig Dispensed Refills Start Date End Date Status dextroamphetamine-amphe tamine (ADDERALL) 10 mg tablet Take 10 mg by mouth daily. 02/03/2020 Active warfarin (COUMADIN) 10 mg tablet Take 10 mg by mouth daily. 03/25/2020 Active Active Problems Problem Noted Date Diagnosed Date Cardiac pacemaker in situ 05/08/2020 Current use of senior living anticoagulation 020 Heart block 05/08/2020 S/P MVR (mitral valve replacement) 05/08/2020 Aortic insufficiency 05/08/2020 Chronic bullous emphysema ([facility]) 11/18/2016 Clostridium difficile colitis 11/07/2016 Encounter [...] of Treatment Not on file Care Teams Welder Apprentice Combination Relationship Specialty Start Date End Date Linda Mccray MD [address] [place] [address] PCP - General 05/12/20
--- OUTSIDE RECORDS SUMMARY | 2024-08-30 13:29 | XMS_ITS | Encounter Summary ---
Author Organization [facility] Address [address] [place] [address] Care Team Providers Care Can Carrier Name Role Phone Linda Mccray MD Primary Care Provider [phone] Encounter Details Date Type Department Care Team ([facility] st Contact Info) Description 07/27/2021 Lab Requisition [facility] Pathology & Laboratory Medicine - [facility] [address] [place], [place] [address] Outr Resulting Lab, Provider Social History Tobacco [...] Outr Resulting Lab MICROBIOLOGY - GENERAL ORDERABLES [facility] [address] [place] [address] * COVID-19 TESTING (07/26/2021 10:30 EDT) COVID-19 rt-PCR Result Negative Negative 07/28/2021 12:52 EDT [facility] Comment: This [...] performed using the sheri SARS-CoV-2 assay ([employer] on the Sheri 6800 System Performing Lab Sheri 6800 [facility] 07/28/2021 12:52 EDT [facility] Swab 07/26/2021 10:3 0 EDT 07/27/2021 20:11 EDT Provider Outr Resulting Lab MICROBIOLOGY - GENERAL ORDERABLES [facility] [address] [place] [address] documented in this encounter Visit Diagnoses Not on filedocumented in this encounter Care Teams Can Carrier Relationship Specialty Start Date End Date Linda Mccray MD [address] [place] [address] PCP - General 05/12/20 documented as of this encounter
--- OUTSIDE RECORDS SUMMARY | 2024-08-30 13:29 | XMS_ITS | Encounter Summary ---
Author Organization [facility] Address [address] [place] [address] Care Team Providers Care Classification Case Manager Name Role Phone Linda Mccray MD Primary Care Provider [phone] Encounter Details Date Type Department Care Team ([facility] st Contact Info) Description 05/03/2021 Lab Requisition [facility] Pathology & Laboratory Medicine - [facility] [address] [place], [place] [address] Outr Resulting Lab, Provider Social History Tobacco [...] Outr Resulting Lab MICROBIOLOGY - GENERAL ORDERABLES [facility] [address] [place] [address] * COVID-19 TESTING (05/03/2021 11:40 EDT) COVID-19 rt-PCR Result Negative Negative 05/04/2021 17:29 EDT [facility] Comment: This test has not [...] performed using the sheri SARS-CoV-2 assay ([employer] on the Sheri 6800 System Performing Lab Sheri 6800 [facility] Lab 05/04/2021 17:29 EDT [facility] Swab 05/03/2021 11:4 0 EDT 05/03/2021 20:34 EDT Provider Outr Resulting Lab MICROBIOLOGY - GENERAL ORDERABLES [facility] [address] [place] [address] documented in this encounter Visit Diagnoses Not on filedocumented in this encounter Care Teams Classification Case Manager Relationship Specialty Start Date End Date Linda Mccray MD [address] [place] [address] PCP - General 05/12/20 documented as of this encounter
--- OUTSIDE RECORDS SUMMARY | 2024-08-30 13:29 | XMS_ITS | Encounter Summary ---
Author Organization [facility] Address [address] [place] [address] Care Team Providers Care Business Attorney Name Role Phone Linda Mccray MD Primary Care Provider [phone] Encounter Details Date Type Department Care Team ([facility] st Contact Info) Description 02/23/2024 Lab Requisition [facility] Pathology & Laboratory Medicine - [facility] [address] [place] [address] Outr Resulting Lab, Provider Social History Tobacco [...] * QUANTIFERON INTERPRETATION (PERFORMABLE) (02/22/2024 15:15 EDT) [facility] Signature Quantiferon Interpretation Negative Negative 02/26/2024 12:09 EDT [facility] Comment:No interferon-gamma response to M. tuberculosis antigens was detected. ??Infection with M. tuberculosis is unlikely. A single negative result does not exclude infection with M. tuberculosis. ??In patients at high risk for M. tuberculosis infection, a second test should be considered. TB1 Ag minus Nil 0.00 IU/ml 02/26/20 24 12:09 EDT [facility] TB2 Ag minus Nil 0.01 IU/mL 02/26/20 24 12:09 EDT [facility] Blood VENOUS BLOOD / Unknown 02/22/2024 15:15 EDT 02/26/2024 9:40 EDT Provider Outr Resulting Lab IMMUNOLOGY A ND SEROLOGY ORDERABLES Performing Organization Address [facility] de Phone Number [facility] [address] [place] [address] [phone] * QUANTIFERON MITOGEN (PERFORMABLE) (02/22/2024 15:15 EDT) Blood VENOUS BLOOD / Unknown 02/22/2024 15:15 EDT 02/23/2024 17:17 EDT Provider Outr Resulting Lab IMMUNOLOGY A ND SEROLOGY ORDERABLES Performing Organization Address [facility] de Phone Number [facility] [address] [place] [address] [phone] * QUANTIFERON TB2 (PERFORMABLE) (02/22/2024 15:15 EDT) Blood VENOUS BLOOD / Unknown 02/22/2024 15:15 EDT 02/23/2024 17:17 EDT Provider Outr Resulting Lab IMMUNOLOGY A ND SEROLOGY ORDERABLES Performing Organization Address [facility] de Phone Number [facility] [address] [place] [address] [phone] * QUANTIFERON TB1 (PERFORMABLE) (02/22/2024 15:15 EDT) Blood VENOUS BLOOD / Unknown 02/22/2024 15:15 EDT 02/23/2024 17:17 EDT Provider Outr Resulting Lab IMMUNOLOGY A ND SEROLOGY ORDERABLES Performing Organization Address [facility] de Phone Number [facility] [address] [place], [place] [phone] * QUANTIFERON NIL (PERFORMABLE) (02/22/2024 15:15 EDT) Blood VENOUS BLOOD / Unknown 02/22/2024 15:15 EDT 02/23/2024 17:17 EDT Provider Outr Resulting Lab IMMUNOLOGY A ND SEROLOGY ORDERABLES Performing Organization Address [facility] de Phone Number [facility] [address] [place], [place] [phone] documented in this encounter Visit Diagnoses Not on filedocumented in this encounter Care Teams Business Attorney Relationship Specialty Start Date End Date Linda Mccray MD [address] [place] [phone] PCP - General 05/12/20 documented as of this encounter
--- OUTSIDE RECORDS SUMMARY | 2024-08-30 13:29 | XMS_ITS | Clinical Summary ---
Author Organization [facility] Address [address] [place] [address] Care Team Providers Care Site Leasing Agent Name Role Phone Linda Mccray MD Primary Care Provider [phone] Medications Medication Sig Dispensed Refills Start Date End Date Status dextroamphetamine-amphe tamine (ADDERALL) 10 mg tablet Take 10 mg by mouth daily. 02/03/2020 Active warfarin (COUMADIN) 10 mg tablet Take 10 mg by mouth daily. 03/25/2020 Active Active Problems Problem Noted Date Diagnosed Date Cardiac pacemaker in situ 05/08/2020 Current use of halfway anticoagulation 020 Heart block 05/08/2020 S/P MVR (mitral valve replacement) 05/08/2020 Aortic insufficiency 05/08/2020 Chronic bullous emphysema ([facility]) 11/18/2016 Clostridium difficile colitis 11/07/2016 Encounter for [...] COVID-19 Vaccine (2022-24 season) 2023 Care Teams Site Leasing Agent Relationship Specialty Start Date End Date Linda Mccray MD [address] [place] [address] PCP - General 05/12/20
--- OUTSIDE RECORDS SUMMARY | 2024-08-30 13:29 | XMS_ITS | Encounter Summary ---
Author Organization [facility] Address [address] [place] [address] Care Team Providers Care Aviation Technician Name Role Phone Linda Mccray MD Primary Care Provider [phone] Reason for Visit * Reason Onset Date Comments Other 05/20/2020 Pt requested his records be faxed to [facility] Encounter Details Date Type Department Care Team (Late st Contact Info) Description 05/20/2020 Telephone [facility] Clinic [address] [place] [address] Carlos Manuel Singer, LYNN [address] [facility] [address] [place] [address] Other (Pt requested his records be faxed to [facility]) Social History Tobacco Use Types Packs/Day [...] last several remote pacer checks faxed to [facility] Cardiology. I asked them to please contact pt to get an appt scheduled with them so he may F/U in [facility] again * Telephone Encounter - Crystal García - 05/20/2020 1548 EDT Pt called in requesting we send a referral and his records to [facility] cardiology since Dr. Cara mcneilletting done in our office. documented in this encounter Plan of Treatment Not on file documented as of this encounter Visit Diagnoses Not on filedocumented in this encounter Care Teams Aviation Technician Relationship Specialty Start Date End Date Linda Mccray MD [address] [place] [address] PCP - General 05/12/20 documented as of this encounter
--- OUTSIDE RECORDS SUMMARY | 2024-08-30 13:29 | XMS_ITS | Encounter Summary ---
Author Organization [facility] [place] [address] Care Team Providers Care Soil Conservation Aide Name Role Phone Linda Mccray MD Primary Care Provider [phone] Reason for Visit * Reason Comments Medication Refill Encounter Details Date Type Department Care Team (Late st Contact Info) Description 08/18/2024 Refill Urology at [facility] [place] [address] Winifred Manning APRN [facility] [place] [address] Social History Tobacco Use Types Packs/Day Years [...] on filedocumented in this encounter Care Teams Soil Conservation Aide Relationship Specialty Start Date End Date Linda Mccray MD [address] [place] [address] PCP - General Family Medicine 10/20/16 documented as of this encounter
--- OUTSIDE RECORDS SUMMARY | 2024-08-30 13:29 | XMS_ITS | Encounter Summary ---
Author Organization [facility] Address [address] [place] [address] Care Team Providers Care Cafeteria Counter Attendant Name Role Phone Unavailable Primary Care Provider Unavailabl e Encounter Details Date Type Department Care Team (Late st Contact Info) Description 04/23/2020 Orders Only [facility] Cardiology Clinic [address] [place] [address] Sue Conner NP Heart block (Primary Dx) [...]
--- OUTSIDE RECORDS SUMMARY | 2024-08-30 13:29 | XMS_ITS | Encounter Summary ---
Author Organization [facility] Address [address] [place] [address] Care Team Providers Care Instructional Support Specialist Name Role Phone Linda Mccray MD Primary Care Provider [phone] Encounter Details Date Type Department Care Team ([facility] st Contact Info) Description 06/22/2021 Lab Requisition [facility] Pathology & Laboratory Medicine - [address] [id number] Outr Resulting Lab, Provider Social History Tobacco [...] Outr Resulting Lab MICROBIOLOGY - GENERAL ORDERABLES [facility] [address] [place] [address] * COVID-19 TESTING (06/21/2021 13:55 EDT) COVID-19 rt-PCR Result Negative Negative 06/23/2021 14:01 EDT [facility] Comment: This test [...] history, and epidemiological information. Performed on the [employer] Fusion instrument Performing Lab [place] [facility] Lab 06/23/2021 14:01 EDT [facility] Swab 06/21/2021 13:5 5 EDT 06/22/2021 22:31 EDT Provider Outr Resulting Lab MICROBIOLOGY - GENERAL ORDERABLES [facility] [address] [place] [address] documented in this encounter Visit Diagnoses Not on filedocumented in this encounter Care Teams Instructional Support Specialist Relationship Specialty Start Date End Date Linda Mccray MD [address] [place] [address] PCP - General 05/12/20 documented as of this encounter
--- OUTSIDE RECORDS SUMMARY | 2024-08-30 13:29 | XMS_ITS | Encounter Summary ---
Author Organization [facility] Address [address] [place] [address] Care Team Providers Care Phone Operator Name Role Phone Unavailable Primary Care Provider Unavailabl e Encounter Details Date Type Department Care Team (Late st Contact Info) Description 01/30/2019 Historical Results Only [facility] Lab - Main [address] [address] Linda Mccray MD [address] [place] [phone] Social History Tobacco Use Types Packs/Day [...] Results * (ABNORMAL) PROTIME (01/30/2019 14:36 EDT) [facility] 1.9(H) 0.9 - 1.2 01/30/2019 15:50 EDT [facility] Comment: Low intensity INR: 2.0-3.0 High intensity INR: Consult Coag Dept. 01/30/2019 14:3 6 EDT 01/30/2019 14:36 EDT Narrative [facility] - 04/20/2019 12:34 EDT Does PT Have a Latex Allergy? NO Linda Mccray MD HEMATOLOGY & PF4 ORD ERABLES [facility] documented in this encounter Visit Diagnoses Not on filedocumented in this encounter
--- OUTSIDE RECORDS SUMMARY | 2024-08-30 13:29 | XMS_ITS | Encounter Summary ---
Author Organization [facility] Address [address] [place] [address] Care Team Providers Care Contractor Broomcorn Threshing Name Role Phone Linda Mccray MD Primary Care Provider [phone] Encounter Details Date Type Department Care Team ([facility] st Contact Info) Description 03/06/2024 Lab Requisition [facility] Pathology & Laboratory Medicine - [facility] [address] [place] [address] Unknown, Provider, Social History Tobacco Use Types [...] Organism ID Penicillium species(A) 03/11/2024 14:[address] [facility] Comment: This mold is [...] Provider Unknown MICROBIOLOGY - MARIAN CABRERA ORDERABLES [facility] [address] [place] [address] documented in this encounter Visit Diagnoses Not on filedocumented in this encounter Care Teams Contractor Broomcorn Threshing Relationship Specialty Start Date End Date Linda Mccray MD [address] [place] [address] PCP - General 05/12/20 documented as of this encounter
--- OUTSIDE RECORDS SUMMARY | 2024-08-30 13:29 | XMS_ITS | Encounter Summary ---
Author Organization [facility] Address [address] [place] [address] Care Team Providers Care Gasoline Finisher Name Role Phone Linda Mccray MD Primary Care Provider [phone] Reason for Visit * Reason Onset Date Comments Appointment Related 06/01/2020 Encounter Details Date Type Department Care Team ([facility] st Contact Info) Description 06/01/2020 Telephone [facility] Cardiology Clinic [address] [place] [address] Carlos Manuel Singer, LYNN [address] [facility] [address] [place] [address] Appointment Related Social History Tobacco [...] 06/10/2020 1116 EDT Elaine called back from [facility]. She confirmed that [facility] will be taking over pt's remote checks going forward. I did go into [facility] and initiate a transfer to [facility] at this time. Elaine also asked that I fax over the last pacer check we did on pt. I faxed over his remote checks done on 04/22 and 05/29. * Telephone Encounter - Crystal García - 06/09/2020 1557 EDT I called [facility] and left a msg asking for a [...] for a Pacer appt on 06/24 at [facility] and a general Cardiology app[facility] 08[facility] * Telephone Encounter - Crystal García - 06/01/2020 1624 EDT I called [facility] and left a msg asking for a call back to find out if pt has been scheduled in there office yet. * Telephone Encounter - Carlos Manuel Singer APRN - 06/01/2020 0947 EDT Crystal, battery nearing SAMEERA 3 months. Please keep him on our monthly list. He is supposedly transferring care back to [facility] can we check on this status. ?will [facility] take over monitoring? documented in this encounter Plan of Treatment Not on file documented as of this encounter Visit Diagnoses Not on filedocumented in this encounter Care Teams Gasoline Finisher Relationship Specialty Start Date End Date Linda Mccray MD [address] [place] [address] PCP - General 05/12/20 documented as of this encounter
--- OUTSIDE RECORDS SUMMARY | 2024-08-30 13:29 | XMS_ITS | Encounter Summary ---
Author Organization [facility] Address [address] [place] [address] Care Team Providers Care Industrial Cook Name Role Phone Unavailable Primary Care Provider Unavailabl e Reason for Visit * Reason Onset Date Comments Other 01/01/2020 remote transmiss ion Encounter Details Date Type Department Care Team ([facility] st Contact Info) Description 01/01/2020 Telephone [facility] Cardiology Clinic [address] [place] [address] Carlos Manuel Singer NP [address] [facility] [place] [address] Other (remote transmission ) Social [...] it had been reviewed. Pt is in [place] currently and has a f/u appt in this office 02/04/2020. ERl was 9months with a 3 month window after that time for repl acement. Carlos Manuel asked to reassure patient that he is in no danger of battery/generator depletion prior to coming back from [place] next month. Advised pt of this via message and asked for pt to return call if he had further questions or issues. * Telephone Encounter - Crystal Stein - 01/01/2020 5840 EDT [place] called and left a message wondering if we received his remote pacer transmission and is looking for a call back to discuss it. documented in this encounter Plan of Treatment Not on file documented as of this encounter Visit Diagnoses Not on filedocumented in this encounter
--- OUTSIDE RECORDS SUMMARY | 2024-08-30 13:29 | XMS_ITS | Encounter Summary ---
Author Organization [facility] Address [address] [place] [address] Care Team Providers Care Winder Helper Name Role Phone Unavailable Primary Care Provider Unavailabl e Encounter Details Date Type Department Care Team (Late st Contact Info) Description 02/04/2020 Orders Only [facility] Cardiology Clinic [address] [place] [address] Sue Conner NP Heart block (Primary Dx) [...]
--- OUTSIDE RECORDS SUMMARY | 2024-08-30 13:29 | XMS_ITS | Encounter Summary ---
Author Organization [facility] Address [address] [place] [address] Care Team Providers Care Production Graphic Designer Name Role Phone Linda Mccray MD Primary Care Provider [phone] Encounter Details Date Type Department Care Team ([facility] st Contact Info) Description 03/20/2024 Lab Requisition [facility] Pathology & Laboratory Medicine - [facility] [address] [place], [place] [address] Outr Resulting Lab, Provider Social History Tobacco [...] Lyme Ab Negative Negative 03/21/2024 10:01 EDT [facility] Blood VENOUS BLOOD / Unknown 03/19/2024 12:45 EDT 03/20/2024 16:38 EDT Provider Outr Resulting Lab IMMUNOLOGY A ND SEROLOGY ORDERABLES [facility] [address] [place] [address] documented in this encounter Visit Diagnoses Not on filedocumented in this encounter Care Teams Production Graphic Designer Relationship Specialty Start Date End Date Linda Mccray MD [address] [place] [address] PCP - General 05/12/20 documented as of this encounter
--- OUTSIDE RECORDS SUMMARY | 2024-08-30 13:29 | XMS_ITS | Encounter Summary ---
Author Organization [facility] Address [address] [place] [address] Care Team Providers Care Retail Sales Consultant Name Role Phone Linda Mccray MD Primary Care Provider [phone] Encounter Details Date Type Department Care Team ([facility] st Contact Info) Description 07/29/2020 Lab Requisition [facility] Pathology & Laboratory Medicine - [facility] [address] [place], [place] [address] Outr Resulting Lab, Provider Social History Tobacco [...] Lab MICROBIOLOGY - GENERAL ORDERABLES [facility] [address] [place] [address] * COVID-19 TESTING (07/29/2020 10:55 EDT) COVID-19 rt-PCR Result Negative Negative 07/30/2020 0:57 EDT [facility] Comment: This test has not [...] history, and epidemiological information. Performed on the [employer] Fusion instrument Performing Lab [facility] 07/30/2020 0:57 EDT [facility] Swab 07/29/2020 10:5 5 EDT 07/29/2020 22:07 EDT Provider Outr Resulting Lab MICROBIOLOGY - GENERAL ORDERABLES [facility] [address] [place] [address] documented in this encounter Visit Diagnoses Not on filedocumented in this encounter Care Teams Retail Sales Consultant Relationship Specialty Start Date End Date Linda Mccray MD [address] [place] [address] PCP - General 05/12/20 documented as of this encounter
--- OUTSIDE RECORDS SUMMARY | 2024-08-30 13:29 | XMS_ITS | Encounter Summary ---
Author Organization [facility] Address [address] [place] [address] Care Team Providers Care Air Motor Repairer Name Role Phone Unavailable Primary Care Provider Unavailabl e Encounter Details Date Type Department Care Team (Late st Contact Info) Description 12/31/2019 Orders Only [facility] Cardiology Clinic [address] [place] [address] Sue Conner NP Heart block (Primary Dx) [...]
--- OUTSIDE RECORDS SUMMARY | 2024-08-30 13:29 | XMS_ITS | Encounter Summary ---
Author Organization [facility] Address [address] [place] [address] Care Team Providers Care Rn Transfer Name Role Phone Linda Mccray MD Primary Care Provider [phone] Reason for Visit * Reason Onset Date Comments Appointment Related 05/11/2020 Encounter Details Date Type Department Care Team ([facility] st Contact Info) Description 05/11/2020 Telephone [facility] [place] [facility] [address] [place] [address] Carlos Manuel Singer PHOTOGRAPHIC ARTIST [address] [facility] [place] [address] Appointment Related Social History Tobacco [...] to do as he may transfer to [facility]. * Telephone Encounter - Crystal Stein [...] for follow up visit since leaving for [facility] last year. Sue has retired [...] on filedocumented in this encounter Care Teams Rn Transfer Relationship Specialty Start Date End Date Linda Mccray MD [address] [place] [address] PCP - General 05/12/20 documented as of this encounter
--- OUTSIDE RECORDS SUMMARY | 2024-08-30 13:29 | XMS_ITS | Encounter Summary ---
Author Organization [facility] Address [address] [place] [address] Care Team Providers Care Delivery Merchandiser Name Role Phone Unavailable Primary Care Provider Unavailabl e Reason for Visit * Reason Onset Date Comments Coordination Of Care 02/06/2020 Encounter Details Date Type Department Care Team ([facility] st Contact Info) Description 02/06/2020 Telephone [facility] [address] [place] [address] Michelle Lindo NP [address] [facility] [address] [place] [address] Coordination Of Care Social History [...]
--- OUTSIDE RECORDS SUMMARY | 2024-08-30 13:29 | XMS_ITS | Encounter Summary ---
Author Organization [facility] Address [address] [place] [address] Care Team Providers Care Assorter Laundry Name Role Phone Linda Mccray MD Primary Care Provider [phone] Encounter Details Date Type Department Care Team (Late st Contact Info) Description 03/25/2024 Lab Requisition [facility] Pathology & Laboratory Medicine - [facility] [address] [place] [address] Manish Ashley MD [address] [place] [phone] Social History Tobacco Use Types Packs/Day [...] on filedocumented in this encounter Care Teams Assorter Laundry Relationship Specialty Start Date End Date Linda Mccray MD [address] [place] [address] PCP - General 05/12/20 documented as of this encounter
--- OUTSIDE RECORDS SUMMARY | 2024-08-30 13:29 | XMS_ITS | Encounter Summary ---
Author Organization [facility] Address [address] [place] [address] Care Team Providers Care Health Record Technician Name Role Phone Linda Mccray MD Primary Care Provider [phone] Encounter Details Date Type Department Care Team ([facility] st Contact Info) Description 06/01/2021 Lab Requisition [facility] Pathology & Laboratory Medicine - [facility] [address] [place], [place] [address] Outr Resulting Lab, Provider Social History Tobacco [...] Resulting Lab MICROBIOLOGY - GENERAL ORDERABLES [facility] [address] [place] [address] * COVID-19 TESTING (05/31/2021 13:25 EDT) COVID-19 rt-PCR Result Negative Negative 06/02/2021 13:31 EDT [facility] Comment: This test has [...] developed and its performance characteristics determined by [facility]. It has not been cleared [...] testing. This test is based on the [facility] COVID-19 Emergency Use Authorization (EUA) assay, with minor modification as defined by the FDA Performed on the [employer] 7 Pro RT-PCR System. Performing Lab [facility] 06/02/2021 13:31 EDT [facility] Swab 05/31/2021 13:2 5 EDT 06/01/2021 15:46 EDT Provider Outr Resulting Lab MICROBIOLOGY - GENERAL ORDERABLES [facility] [address] [place] [address] documented in this encounter Visit Diagnoses Not on filedocumented in this encounter Care Teams Health Record Technician Relationship Specialty Start Date End Date Linda Mccray MD [address] [place] [address] PCP - General 05/12/20 documented as of this encounter
--- OUTSIDE RECORDS SUMMARY | 2024-08-30 13:30 | XMS_ITS | Encounter Summary ---
Author Organization [facility] [place] [address] Care Team Providers Care Law Clerk Name Role Phone Linda Mccray MD Primary Care Provider [phone] Encounter Details Date Type Department Care Team [...] on filedocumented in this encounter Care Teams Law Clerk Relationship Specialty Start Date End Date Linda Mccray MD [address] [place] [address] PCP - General Family Medicine 10/20/16 documented as of this encounter
--- OUTSIDE RECORDS SUMMARY | 2024-08-30 13:30 | XMS_ITS | Encounter Summary ---
[facility] Organization [facility] [place] [address] Care Team Providers Care Hi Lift Operator Name Role Phone Linda Mccray MD Primary Care Provider [phone] Encounter Details Date Type Department Care Team [...] on filedocumented in this encounter Care Teams Hi Lift Operator Relationship Specialty Start Date End Date Linda Mccray MD [address] [place] [address] PCP - General Family Medicine 10/20/16 documented as of this encounter
--- OUTSIDE RECORDS SUMMARY | 2024-08-30 13:30 | XMS_ITS | Encounter Summary ---
Author Organization Formerly [facility] [place] [address] Care Team Providers Care Hand Violin Maker Name Role Phone Linda Mccray MD Primary Care Provider [phone] Encounter Details Date Type Department Care Team (Late st Contact Info) Description 01/07/2022 Orders Only [place] [address] Annemarie Gomez, OIL PIPELINE DISPATCHER [facility] [place] [address] Trauma of chest, subsequent encounter Social History [...] who have questions please contact the health career services officer that requested your imaging first. ? Electronically signed by: Marci Martínez MD, [facility] ([phone]), at 01/13/2022 11:17 AM Narrative 01/13/2022 11:17 AM EDT EXAMINATION: XR CHEST PA AND LATERAL (GENERIC) CLINICAL HISTORY: FU left hemothorax, evaluate for interval change, prior imagin in [facility] thank you TECHNIQUE: PA and lateral [...] hemothorax, evaluate for interval change, priorimagin in [facility] thank you TECHNIQUE: PA and lateral [...] patients who have questions please contactthe health career services officer that requested your imaging first. Electronically signed by: Marci Martínez MD, [facility]([phone]), at 01/13/2022 11:17 AM Annemarie Gomez OIL PIPELINE DISPATCHER IMG DX ORDERABLES documented in this encounter Visit Diagnoses Diagnosis Trauma of chest, subsequent encounter Trauma of chest, subsequent encounter documented in this encounter Care Teams Hand Violin Maker Relationship Specialty Start Date End Date Linda Mccray MD [address] [place] [address] PCP - General Family Medicine 10/20/16 documented as of this encounter
--- OUTSIDE RECORDS SUMMARY | 2024-08-30 13:30 | XMS_ITS | Encounter Summary ---
Author Organization Formerly [facility] [address] Care Team Providers Care Clamp Remover Name Role Phone Linda Mccray MD Primary Care Provider [phone] Encounter Details Date Type Department Care Team (Late st Contact Info) Description 02/20/2023 Refill Urology at [facility] [address] Winifred Manning APRN [facility] [place] [address] Social History Tobacco Use Types Packs/Day Years [...] - 02/20/2023 3:43 PM EDT Copied from [facility] #[id number]. Topic: Specialty Dept CRMs - Generic Call >> February 20, 2023 12:14 PM Josselin Isbell wrote: Specialist: Winifred Manning Relationship (if other than patient-full name): self Reason for Call: Patient is calling for a refill for the sildenafil to go to [facility] [facility] [place] - [address] [place] [phone]. Please call with any questions at [phone] or [phone]. documented in this encounter Plan of Treatment Not on file documented as of this encounter Visit Diagnoses Not on filedocumented in this encounter Care Teams Clamp Remover Relationship Specialty Start Date End Date Linda Mccray MD [address] [place] [address] PCP - General Family Medicine 10/20/16 documented as of this encounter
--- OUTSIDE RECORDS SUMMARY | 2024-08-30 13:30 | XMS_ITS | Encounter Summary ---
Author Organization [facility] Address [facility] [place] [address] Care Team Providers Care Smoking Pipe Mounter Name Role Phone Linda Mccray MD Primary Care Provider Encounter Details Date Type Department Care Team (Late st Contact Info) Description 02/22/2022 Orders Only Cardiology at [address] [address] Elmer Minor, PA [facility] [place] [address] Social History Tobacco Use Types Packs/Day Years [...] on filedocumented in this encounter Care Teams Smoking Pipe Mounter Relationship Specialty Start Date End Date Linda Mccray MD [address] [place] [address] PCP - General Family Medicine 10/20/16 documented as of this encounter
--- OUTSIDE RECORDS SUMMARY | 2024-08-30 13:30 | XMS_ITS | Encounter Summary ---
Author Organization [facility] [place] [address] Care Team Providers Care Referral Manager Name Role Phone Linda Mccray MD Primary Care Provider [phone] Reason for Referral * Consultation (Routine) - Closed Specialty Diagnoses / Procedures Referred By Contac t Referred To Contact Thoracic Surgery Diagnoses Hemothorax on left - Hemothorax on left Annemarie Gomez APRN [facility] [address] [facility] Thoracic Surg [address] [place] [address] Referral ID Status Reason Start Date Expiration Date V isits Requested Visits Authorized [id number] Closed Consult, Test & Treat 01/07/2022 01/07/2023 1 1 Encounter Details Date Type Department Care Team (Late st Contact Info) Description 01/07/2022 Orders [place] [address] Annemarie Gomez APRN [facility] [address] [place] [address] Hemothorax on left Social History [...] tuberculous documented in this encounter Care Teams Referral Manager Relationship Specialty Start Date End Date Linda Mccray MD [address] [place] [address] PCP - General Family Medicine 10/20/16 documented as of this encounter
--- OUTSIDE RECORDS SUMMARY | 2024-08-30 13:30 | XMS_ITS | Encounter Summary ---
Author Organization [facility] [place] [address] Care Team Providers Care It Systems Manager Name Role Phone Linda Mccray MD Primary Care Provider [phone] Reason for Visit * Reason Comments Medication Refill Encounter Details Date Type Department Care Team (Late st Contact Info) Description 12/20/2021 Refill General Surgery at [facility] [place] [address] Albina Quach, ADOBE FLEX DEVELOPER [facility] [place] [address] Social History Tobacco Use Types Packs/Day Years [...] on filedocumented in this encounter Care Teams It Systems Manager Relationship Specialty Start Date End Date Linda Mccray MD [address] [place] [address] PCP - General Family Medicine 10/20/16 documented as of this encounter
--- OUTSIDE RECORDS SUMMARY | 2024-08-30 13:30 | XMS_ITS | Encounter Summary ---
[place] [address] Care Team Providers Care Electrical Cad Technician Name Role Phone Linda Mccray MD Primary Care Provider [phone] Reason for Referral * Consultation (Routine) - Closed Specialty Diagnoses / Procedures Referred By Lucas leach Referred To Contact Pulmonology Diagnoses Chronic bullous emphysema Melanie Segal APRN [facility] [place] [address] [facility] [address] [place] [phone] Referral ID Status Reason Start Date Expiration Date V isits Requested Visits Authorized [id number] Closed Consult, Test & Treat 07/15/2022 07/15/2023 1 1 Encounter Details Date Type Department Care Team (Late st Contact Info) Description 07/15/2022 1:00 PM EDT Office [place] [phone] Melanie Segal APRN [facility] [place] [address] Chronic bullous emphysema; Pulmonary nodule [...] this encounter Progress Notes * Melanie Segal, OUTREACH PROFESSIONAL - 07/15/2022 1:00 PM EDT Images from the original note were not included. PULMONARY NODULE CLINIC OUTPATIENT CONSULTATION NOTE SECTIONS OF THORACIC SURGERY & INTERVENTIONAL PULMONOLOGY [place] [address] FAX: PATIENT NAME: London Neri : 1950 MEDICAL RECORD: [id number] DATE OF SERVICE: 07/15/2022 REFERRING PHYSICIAN: Navin [...] he was hospitalized for 5 days at [facility] with chest tightness and shortness of breath [...] block, complete I44.2 ??? Current use of detention anticoagulation Z79.01 ??? Heart block I45.9 ??? Lung blebs J43.9 ??? Other air leak J93.82 ??? Postoperative hematoma [id number] ??? 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 for consultation regarding a left upper lobe [...] Section of Pulmonary & Critical Care Pager: [phone] documented in this encounter Plan of Treatment [...] / FVC LLN 61 % COMPAS PFT OWO27-05 Actual Pre-BD 2.04 L/s COMPAS PFT SKR19-02 Pre-BD % of Predicted 86 % COMPAS PFT EWB22-64 Predicted 2.38 L/s COMPAS PFT LIL13-22 Pre-BD Z-Score -0.35 COMPAS PFT DLCO Hb [...] bleb documented in this encounter Care Teams Electrical Cad Technician Relationship Specialty Start Date End Date Linda Mccray MD [address] [place] [address] PCP - General Family Medicine 10/20/16 documented as of this encounter
--- OUTSIDE RECORDS SUMMARY | 2024-08-30 13:30 | XMS_ITS | Encounter Summary ---
Author [facility] [place] [address] Care Team Providers Care Station Mechanic Apprentice Name Role Phone Linda Mccray MD Primary Care Provider [phone] Encounter Details Date Type Department Care Team (Late st Contact Info) Description 06/29/2022 Telephone [place] [phone] Carlos Manuel Velasco Social History Tobacco Use [...] on filedocumented in this encounter Care Teams Station Mechanic Apprentice Relationship Specialty Start Date End Date Linda Mccray MD [address] [place] [address] PCP - General Family Medicine 10/20/16 documented as of this encounter
--- OUTSIDE RECORDS SUMMARY | 2024-08-30 13:30 | XMS_ITS | Encounter Summary ---
Author Organization [facility] [place] [address] Care Team Providers Care Post Closer Name Role Phone Linda Mccray MD Primary Care Provider [phone] Encounter Details Date Type Department Care Team (Late st Contact Info) Description 05/21/2024 [place] [address] Anette Aguilar RN Social History Tobacco Use [...] on filedocumented in this encounter Care Teams Post Closer Relationship Specialty Start Date End Date Linda Mccray MD [address] [place] [address] PCP - General Family Medicine 10/20/16 documented as of this encounter
--- OUTSIDE RECORDS SUMMARY | 2024-08-30 13:30 | XMS_ITS | Encounter Summary ---
[place] [address] Care Team Providers Care Art Glass Setter Name Role Phone Linda Mccray MD Primary Care Provider [phone] Reason for Referral * Consultation (Routine) - Closed Specialty Diagnoses / Procedures Referred By Lucas leach Referred To Contact Orthopaedics Diagnoses Left rotator cuff tear arthropathy Jay Jones MD [address] [place] [address] [facility] [address] [place] [phone] Referral ID Status Reason Start Date Expiration Date V isits Requested Visits Authorized [id number] Closed Consult, Test & Treat PCP Updated and/or Approved 04/04/2023 04/03/2024 6 6 Encounter Details Date Type Department Care Team (Latest Contact Info) Description 04/04/2023 Transcribe Orders eDH Incoming Referrals [phone] Jay Jones MD [address] [place], [place] [id number] Left rotator cuff tear arthropathy Social History Tobacco Use Types Packs/Day Years Used Date Smoking Tobacco: Former Cigarettes 1 18 1 6 - 1983 Smokeless Tobacco: Never Alcohol Use [...] arthropathy documented in this encounter Care Teams Art Glass Setter Relationship Specialty Start Date End Date Linda Mccray MD [address] [place] [address] PCP - General Family Medicine 10/20/16 documented as of this encounter
--- OUTSIDE RECORDS SUMMARY | 2024-08-30 13:30 | XMS_ITS | Encounter Summary ---
Author Organization [facility] [place] [address] Care Team Providers Care Museum Exhibit Technician Name Role Phone Linda Mccray MD Primary Care Provider [phone] Encounter Details Date Type Department Care Team ([facility] st Contact Info) Description 01/06/2022 Notes Only Cardiology at [address] [address] Myrna Ludwig APRN [facility] [place] [address] Social History Tobacco Use Types Packs/Day Years [...] on filedocumented in this encounter Care Teams Museum Exhibit Technician Relationship Specialty Start Date End Date Linda Mccray MD [address] [place] [address] PCP - General Family Medicine 10/20/16 documented as of this encounter
--- OUTSIDE RECORDS SUMMARY | 2024-08-30 13:30 | XMS_ITS | Encounter Summary ---
Author Organization [facility] Address [facility] [place] [address] Care Team Providers Care Qualitative Researcher Name Role Phone Linda Mccray MD Primary Care Provider [phone] Encounter Details Date Type Department Care Team (Late st Contact Info) Description 02/19/2022 [place] [phone] Kashmir Iglesias Jr., MD [facility] [place] [address] Social History Tobacco Use Types Packs/Day Years [...] on filedocumented in this encounter Care Teams Qualitative Researcher Relationship Specialty Start Date End Date Linda Mccray MD [address] [place] [address] PCP - General Family Medicine 10/20/16 documented as of this encounter
--- OUTSIDE RECORDS SUMMARY | 2024-08-30 13:30 | XMS_ITS | Encounter Summary ---
Author Organization [facility] [place] [address] Care Team Providers Care Manufacturing Executive Name Role Phone Linda Mccray MD Primary Care Provider [phone] Encounter Details Date Type Department Care Team (Late st Contact Info) Description 07/15/2022 [place] [phone] Мария Cruz Social History Tobacco Use Types [...] on filedocumented in this encounter Care Teams Manufacturing Executive Relationship Specialty Start Date End Date Linda Mccray MD [address] [place] [address] PCP - General Family Medicine 10/20/16 documented as of this encounter
--- OUTSIDE RECORDS SUMMARY | 2024-08-30 13:30 | XMS_ITS | Encounter Summary ---
Author Organization [facility] [place] [address] Care Team Providers Care Panel Machine Setter Name Role Phone Linda Mccray MD Primary Care Provider Reason for Referral * Consultation (Routine) - Closed Specialty Diagnoses / Procedures Referred By Lucas leach Referred To Contact Thoracic Surgery Diagnoses Recurrent spontaneous pneumothorax H/O asbestos exposure Patient with h/o Loculated hemothorax and LLL nodule. Will need [address] With contrast in 6 months (approx July 2022) Kendall Lucas MD [facility] [place] [address] Melanie Segal, [facility] [place] [address] Referral ID Status Reason Start Date Expiration Date V isits Requested Visits Authorized [id number] Closed Consult, Test & Treat 01/25/2022 01/25/2023 1 1 Reason for Visit * Reason Comments Follow-up Chest Pain * Consultation (Routine) - Closed Specialty Diagnoses / Procedures Referred By Lucas leach Referred To Contact Thoracic Surgery Diagnoses Hemothorax on left - Hemothorax on left Annemarie Gomez, [facility] [place] [address] [facility] Thoracic Surg [address] [place] [phone] Referral ID Status Reason Start Date Expiration Date V isits Requested Visits Authorized [id number] Closed Consult, Test & Treat 01/07/2022 01/07/2023 1 1 Encounter Details Date Type Department Care Team (Late st Contact Info) Description 01/25/2022 1:00 PM EDT Office [place] [address] Kendall Lucas MD [facility] DR [place] [address] Recurrent spontaneous pneumothorax; H/O asbestos exposure Social [...] Outpatient Consultation Note MD Winifred Eason PA-C [place], [place] [address] FAX: Date of Consultation: 01/25/2022 This consultation has been requested by PCP: Linda Mccray MD Referring Physician: Annemarie Gomez APRN [facility] [place] [address] Purpose for Consultation: persistent left hemothorax 2/2 [...] RTOR for hemostasis) who was admitted to [facility] 12/12/21 after a mechanical fall from standing [...] Aortic insufficiency 05/08/2020 ??? Current use of longterm anticoagulation 05/08/2020 ??? Heart block 05/08/2020 ??? [...] 2.78) performed by Kendall Lucas MD at [facility] MAIN OR ??? PRO COLONOSCOPY, REMV LESN, SNARE N/A 01/26/2017 COLONOSCOPY, POLYPECTOMY, REMOVAL LESION BY SNARE (WRVU 4.67) performed by Lena Clark MD at [facility] ENDOSCOPY ??? PRO THORACOSCOPY SURG W/PLEURODESIS Left 03/06/2021 @THORACOSCOPY, SURG; W PLEURODESIS (WRVU 10.83) performed by Kendall Lucas MD at [facility] MAIN OR ??? PRO THORACOSCOPY W RESECTION-PLICATION EMPHYSEMA LUNG UNILATERAL Left 03/06/2021 @THORACOSCOPY, SURG; W/RESC-PLICATION EMPHYSEMATOUS LUNG, UNILATERAL (WRVU 27) performed by Kendall Lucas MD at [facility] MAIN OR ??? PRO THORACOSCOPY W/PARTIAL PULMONARY DECORTICATION Left 03/06/2021 @THORACOSCOPY, SURG; W PART. DECORTICATION (WRVU 18.78) performed by Kendall Lucas MD at [facility] MAIN OR ??? PRO THORACOSCOPY W/PARTIAL PULMONARY DECORTICATION Left 03/09/2021 @THORACOSCOPY, SURG; W PART. DECORTICATION (WRVU 18.78) performed by Kendall Luacs MD at [facility] MAIN OR ??? PRO THORACOTOMY, CTRL TRAUMA BLEED Left 03/09/2021 @THORACOTOMY WEXPL,CONTROL BLDNG (WRVU 25.28) performed by Kendall Lucas MD at [facility] MAIN OR Medications: Outpatient Medications Marked as [...] questions Winifred Patel PA-C 01/25/2022 Thoracic Surgery [facility] I have seen the patient [...] asbestos documented in this encounter Care Teams Panel Machine Setter Relationship Specialty Start Date End Date Linda Mccray MD [address] [place] [address] PCP - General Family Medicine 10/20/16 documented as of this encounter
--- OUTSIDE RECORDS SUMMARY | 2024-08-30 13:30 | XMS_ITS | Encounter Summary ---
[place] [address] Care Team Providers Care Audiology Technician Name Role Phone Linda Mccray MD Primary Care Provider [phone] Encounter Details Date Type Department Care Team ([facility] st Contact Info) Description 02/21/2022 External [place] [phone] Social History Tobacco Use Types Packs/Day Years [...] on filedocumented in this encounter Care Teams Audiology Technician Relationship Specialty Start Date End Date Linda Mccray MD [address] [place] [address] PCP - General Family Medicine 10/20/16 documented as of this encounter
--- OUTSIDE RECORDS SUMMARY | 2024-08-30 13:30 | XMS_ITS | Encounter Summary ---
Author Organization [facility] [place] [address] Care Team Providers Care Lpn Rn Name Role Phone Linda Mccray MD Primary Care Provider [phone] Encounter Details Date Type Department Care Team [...] on filedocumented in this encounter Care Teams Lpn Rn Relationship Specialty Start Date End Date Linda Mccray MD [address] [place] [address] PCP - General Family Medicine 10/20/16 documented as of this encounter
--- OUTSIDE RECORDS SUMMARY | 2024-08-30 13:30 | XMS_ITS | Encounter Summary ---
Author Organization [facility] [place] [address] Care Team Providers Care High Lift Mule Operator Name Role Phone Linda Mccray MD Primary Care Provider [phone] Encounter Details Date Type Department Care Team ([facility] st Contact Info) Description 08/04/2022 9:00 AM EDT Office [place] [address] Winifred Manning APRN [facility] [place] [address] BPH with obstruction/lower urinary tract symptoms; Erectile [...] penetrative intercourse. 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 [...] IPP for ED. He is leaving for [place] in the next couple of weeks but [...] type documented in this encounter Care Teams High Lift Mule Operator Relationship Specialty Start Date End Date Linda Mccray MD [address] [place] [address] PCP - General Family Medicine 10/20/16 documented as of this encounter
--- OUTSIDE RECORDS SUMMARY | 2024-08-30 13:30 | XMS_ITS | Encounter Summary ---
Author Organization [facility] Address [facility] [place] [address] Care Team Providers Care Event Technician Name Role Phone Linda Mccray MD Primary Care Provider [phone] Encounter Details Date Type Department Care Team (Late st Contact Info) Description 03/07/2022 Telephone Cardiology at [address] [phone] Daniel-Yarelis Anne RN Social History Tobacco Use [...] he has called the Cardiology office in [facility] as well as the On-Call Cardiologists [...] like to have us try to reach Elmer Minor directly to address his concerns. I [...] call back from either myself or Elmer EDLAROSA ( or jaleel) with a plan. Will forward this messag e to Elmer DELAROSA and jaleel EP Team members for their assistance in getting an answer for this patient in Elmer's absence from the clinic. documented in this encounter Plan of Treatment Not on file documented as of this encounter Visit Diagnoses Not on filedocumented in this encounter Care Teams Event Technician Relationship Specialty Start Date End Date Linda Mccray MD [address] [place] [address] PCP - General Family Medicine 10/20/16 documented as of this encounter
--- OUTSIDE RECORDS SUMMARY | 2024-08-30 13:30 | XMS_ITS | Encounter Summary ---
Author Organization [facility] Address [facility] [place] [address] Care Team Providers Care Transportation Maintenance Specialist Name Role Phone Linda Mccray MD Primary Care Provider [phone] Encounter Details Date Type Department Care Team (Latest Contact Info) Description 12/29/2021 9:32 AM EST - 12/29/2021 11:59 PM EST Hospital Encounter XRay at [address] [place] [address] Albina Quach, ARCH SUPPORT MAKER [facility] [place] [address] Closed fracture of multiple ribs, unspecified laterality, [...] who have questions please contact the health care management coordinator that requested your imaging first. ? Electronically signed by: Marci Martínez MD, [facility] ([phone]), at 12/29/2021 10:15 AM Narrative 12/29/2021 10:15 [...] patients who have questions please contactthe health care management coordinator that requested your imaging first. Albina Quach ARCH SUPPORT MAKER IMG DX ORDERABLES documented in this encounter Visit Diagnoses Diagnosis Closed fracture of multiple ribs, unspecified laterality, initial encounter documented in this encounter Care Teams Transportation Maintenance Specialist Relationship Specialty Start Date End Date Linda Mccray MD [address] [place] [address] PCP - General Family Medicine 10/20/16 documented as of this encounter
--- OUTSIDE RECORDS SUMMARY | 2024-08-30 13:30 | XMS_ITS | Encounter Summary ---
Author Organization [facility] Address [facility] [place] [address] Care Team Providers Care Mechanical Engineering Manager Name Role Phone Linda Mccray MD Primary Care Provider [phone] Encounter Details Date Type Department Care Team (Late st Contact Info) Description 02/18/2022 Orders Only Cardiology at [address] [address] Elmer Minor PA [facility] [address] Persistent atrial fibrillation Social History Tobacco Use [...] pneumothoraces. His device is followed remotely via [facility] and in person at [facility]. At previous interrogation he was noted to have persistent afib(perhaps since March 2021) and underwent attempted DCCV at [facility] today(Dr. Fitzgerald) which was unsuccessful. He contacted the [facility] device clinic for recommendations and was directed [...] TSH. From device data 08/2021: AP 0%; DEMURRAGE CLERK 99% Impression and Plan: 71yo man with hx of PAF, CHB, s/p dual lead Medtronic pacemaker, mechanical aortic and mitral valves, now with worsening dyspnea and persistent atrial fibrillation. He underwent attempted DC cardioversion today at [facility] which was unsuccessful. He is interested in [...] him for discussion with EP attending regarding mcc strategy. He is a less favorable candidate foreither sotalol or dofetilide given prolonged(paced) QT/QTc at baseline. Provider: WASHINGTON Salas EP Consult attending physician: Heriberto Frost MD documented in this encounter Plan of Treatment Not on file documented as of this encounter Visit Diagnoses Diagnosis Persistent atrial fibrillation Atrial fibrillation documented in this encounter Care Teams Mechanical Engineering Manager Relationship Specialty Start Date End Date Linda Mccray MD [address] [place] [address] PCP - General Family Medicine 10/20/16 documented as of this encounter
--- OUTSIDE RECORDS SUMMARY | 2024-08-30 13:30 | XMS_ITS | Encounter Summary ---
Author Organization [facility] [place] [address] Care Team Providers Care Land Measurer Name Role Phone Linda Mccray MD Primary Care Provider [phone] Reason for Visit * Reason Onset Date Comments Medication Refill 01/24/2023 Encounter Details Date Type Department Care Team (Late st Contact Info) Description 01/24/2023 [place] [address] Micki Tillman MD [facility] [place] [address] Centrilobular emphysema Social History Tobacco Use Types [...] emphysema documented in this encounter Care Teams Land Measurer Relationship Specialty Start Date End Date Linda Mccray MD [address] [place] [address] PCP - General Family Medicine 10/20/16 documented as of this encounter
--- OUTSIDE RECORDS SUMMARY | 2024-08-30 13:30 | XMS_ITS | Encounter Summary ---
Author Organization [facility] Address [facility] [place] [address] Care Team Providers Care Jig Bore Operator Name Role Phone Linda Mccray MD Primary Care Provider [phone] Encounter Details Date Type Department Care Team (Late st Contact Info) Description 03/08/2022 Notes Only Cardiology at [address] [address] Elmer Minor PA [facility] [place] [address] Social History Tobacco Use Types Packs/Day Years [...] underwent an acutely successful DC cardioversion at [facility] on February 18, 2022. He initially indicated on the days of the procedure in a telephone call to [place] that the cardioversion was UNsuccessful. Subsequent device interrogation shows he conrted on that day and has not had any recurrent afib. His device data indicates he has been in persistent afib since March 2021 and was managed with rate control. He has had recurrent pulmonary issues which may have been contributing to afib as well. [id number] echo showed preserved LVEF of 60% and [...] on filedocumented in this encounter Care Teams Jig Bore Operator Relationship Specialty Start Date End Date Linda Mccray MD [address] [place] [address] PCP - General Family Medicine 10/20/16 documented as of this encounter
--- OUTSIDE RECORDS SUMMARY | 2024-08-30 13:30 | XMS_ITS | Encounter Summary ---
Author Organization [facility] [place] [address] Care Team Providers Care Horse Racetrack Manager Name Role Phone Linda Mccray MD Primary Care Provider [phone] Reason for Visit * Reason Onset Date Comments Other 01/24/2023 Attempted to naomi l Pt Encounter Details Date Type Department Care Team ([facility] st Contact Info) Description 01/24/2023 Telephone [place] [phone] Mirella Madden RN Other (Attempted to call [...] Mirella Madden RN Department of Pulmonary 5C, [facility] / Pager: [phone] documented in this encounter Plan of Treatment Not on file documented as of this encounter Visit Diagnoses Not on filedocumented in this encounter Care Teams Horse Racetrack Manager Relationship Specialty Start Date End Date Linda Mccray MD [address] [place] [address] PCP - General Family Medicine 10/20/16 documented as of this encounter
--- OUTSIDE RECORDS SUMMARY | 2024-08-30 13:30 | XMS_ITS | Encounter Summary ---
Author [facility] [place] [address] Care Team Providers Care Automatic Grinding Machine Operator Name Role Phone Linda Mccray MD Primary Care Provider [phone] Encounter Details Date Type Department Care Team (Late st Contact Info) Description 02/21/2022 Telephone Cardiology at [address] [address] Willi Castillo [facility] [place] [address] Social History Tobacco Use Types Packs/Day Years [...] or consultation Requesting physician: Dean DELAROSA Location: [facility] Indication for transfer request: consult from [facility] for atrial fibrillation Pertinent clinical details: HPI: [...] 97% RA 36.8 20 Willi Castillo DO Filing Or Registry Clerk, PGY-6 02/21/2022 documented in this encounter Plan of Treatment Not on file documented as of this encounter Visit Diagnoses Not on filedocumented in this encounter Care Teams Automatic Grinding Machine Operator Relationship Specialty Start Date End Date Linda Mccray MD [address] [place] [address] PCP - General Family Medicine 10/20/16 documented as of this encounter
--- OUTSIDE RECORDS SUMMARY | 2024-08-30 13:30 | XMS_ITS | Encounter Summary ---
Author Organization [facility] [place] [address] Care Team Providers Care Running Instructor Name Role Phone Linda Mccray MD Primary Care Provider [phone] Encounter Details Date Type Department Care Team (Latest Contact Info) Description 04/10/2022 - 04/10/2022 11:59 PM EDT Hospital Encounter Non[place] [address] Kendell Houser MD [facility] [place] [address] CHB (complete heart block) Discharge Disposition: Home [...] complete documented in this encounter Care Teams Running Instructor Relationship Specialty Start Date End Date Linda Mccray MD [address] [place] [address] PCP - General Family Medicine 10/20/16 documented as of this encounter
--- OUTSIDE RECORDS SUMMARY | 2024-08-30 13:30 | XMS_ITS | Encounter Summary ---
Author Organization [facility] [place] [address] Care Team Providers Care Obstetrical Nurse Name Role Phone Linda Mccray MD Primary Care Provider [phone] Encounter Details Date Type Department Care Team (Late st Contact Info) Description 01/07/2022 Notes [place] [address] Annemarie Gomez, BAR TACKER [facility] DR [place] [address] Social History Tobacco Use Types Packs/Day Years [...] this encounter Progress Notes * Annemarie Gomez, BAR TACKER - 01/07/2022 1:38 PM EDT Called Ruel [...] on filedocumented in this encounter Care Teams Obstetrical Nurse Relationship Specialty Start Date End Date Linda Mccray MD [address] [place] [address] PCP - General Family Medicine 10/20/16 documented as of this encounter
--- OUTSIDE RECORDS SUMMARY | 2024-08-30 13:30 | XMS_ITS | Encounter Summary ---
[place] [address] Care Team Providers Care Technical Maintenance Technician Name Role Phone Linda Mccray MD Primary Care Provider [phone] Reason for Referral * Diagnostic Test (Routine) - Closed Specialty Diagnoses / Procedures Referred By Contac t Referred To Contact Radiology Diagnoses Recurrent spontaneous pneumothorax Cigarette nicotine dependence in remission H/O asbestos exposure Procedures CT Chest wo Contrast (Generic) Navin Khalil MD [facility] [place] [address] [facility] [place] [address] Referral ID Status Reason Start Date Expiration Date V isits Requested Visits Authorized [id number] Closed Specialty Service Requested 10/27/2021 04/20/2023 1 1 Reason for Visit * Diagnostic Test (Routine) - Closed Specialty Diagnoses / Procedures Referred By Contac t Referred To Contact Radiology Diagnoses Recurrent spontaneous pneumothorax Cigarette nicotine dependence in remission H/O asbestos exposure Procedures CT Chest wo Contrast (Generic) Navin Khalil MD [facility] [place] [address] [facility] [place] [address] Referral ID Status Reason Start Date Expiration Date V isits Requested Visits Authorized [id number] Closed Specialty Service Requested 10/27/2021 04/20/2023 1 1 Encounter Details Date Type Department Care Team (Latest Contact Info) Description 07/15/2022 11:07 AM EDT - 07/15/2022 11:59 PM EDT Hospital [place] [address] Navin Khalil MD [facility] [place] [address] Recurrent spontaneous pneumothorax; Cigarette nicotine dependence in [...] who have questions please contact the health manager respiratory care that requested your imaging first. ? Narrative [...] patients who have questions please contactthe health manager respiratory care that requested your imaging first. Navin Khalil MD IMG CT ORDERABLES documented in this encounter Visit Diagnoses Diagnosis Recurrent spontaneous pneumothorax Other pneumothorax Cigarette nicotine dependence in remission Tobacco use disorder H/O asbestos exposure Personal history of contact with and (suspected) exposure to asbestos documented in this encounter Care Teams Technical Maintenance Technician Relationship Specialty Start Date End Date Linda Mccray MD [address] [place] [address] PCP - General Family Medicine 10/20/16 documented as of this encounter
--- OUTSIDE RECORDS SUMMARY | 2024-08-30 13:30 | XMS_ITS | Encounter Summary ---
Author Organization [facility] [place] [address] Care Team Providers Care Online Project Manager Name Role Phone Linda Mccray MD Primary Care Provider [phone] Reason for Visit * Reason Onset Date Comments Prior Authorization 01/30/2023 Spiriva Encounter Details Date Type Department Care Team ([facility] Contact Info) Description 01/30/2023 Telephone [place] [address] Mirella Madden RN Prior Authorization (Spiriva ) [...] EDT I have received a fax from [employer] for PA on Spiriva: Nguyen: [id number] I will forward this to the team for processing Mirella Madden RN Department of Pulmonary 5C, [facility] / Pager: [phone] documented in this encounter Plan of Treatment Not on file documented as of this encounter Visit Diagnoses Not on filedocumented in this encounter Care Teams Online Project Manager Relationship Specialty Start Date End Date Linda Mccray MD [address] [place] [address] PCP - General Family Medicine 10/20/16 documented as of this encounter
--- OUTSIDE RECORDS SUMMARY | 2024-08-30 13:30 | XMS_ITS | Encounter Summary ---
Author Organization [facility] [place] [address] Care Team Providers Care Fiberglass Fabricator Name Role Phone Linda Mccray MD Primary Care Provider [phone] Encounter Details Date Type Department Care Team (Latest Contact Info) Description 01/23/2023 1:40 PM EDT - 01/23/2023 11:59 PM EDT Hospital Encounter [place] [address] Chronic bullous emphysema Discharge Disposition: Home Social [...] tablet by mouth daily. 5 tablet 12/16/2021 tiotropium bromide (Spiriva Respimat) 2.5 mcg/actuation MistIndications:Centri lobular emphysema Inhale 2 puffs into the lungs daily. 1 each 12 01/23/2023 01/24/2023 sildenafiL (VIAGRA) 100 mg Tablet Take 1 tablet by mouth as needed for Erectile Dysfunction (Do not take more than 1 dose in a 24 hour period.). 60 tablet 08/04/2022 02/20/2023 tamsulosin (Flomax) 0.4 mg Capsule Take 1 capsule by mouth daily. 90 tablet 3 08/04/2022 08/08/2023 betamethasone dipropionate (DIPROLENE) 0.05 % Cream APPLY [...] / FVC LLN 61 % COMPAS PFT CBD18-22 Actual Pre-BD 2.04 L/s COMPAS PFT GRG29-12 Pre-BD % of Predicted 86 % COMPAS PFT DXS22-43 Predicted 2.38 L/s COMPAS PFT ZKO01-10 Pre-BD Z-Score -0.35 COMPAS PFT DLCO Hb [...] bleb documented in this encounter Care Teams Fiberglass Fabricator Relationship Specialty Start Date End Date Linda Mccray MD [address] [place] [address] PCP - General Family Medicine 10/20/16 documented as of this encounter
--- OUTSIDE RECORDS SUMMARY | 2024-08-30 13:30 | XMS_ITS | Encounter Summary ---
Author Organization [facility] [place] [address] Care Team Providers Care Internet Cafe Manager Name Role Phone Linda Mccray MD Primary Care Provider [phone] Encounter Details Date Type Department Care Team (Late st Contact Info) Description 03/05/2022 Telephone Cardiology at [address] [address] Igor Dickens MD [facility] [place] [address] Social History Tobacco Use Types Packs/Day Years [...] Dickens MD - 03/05/2022 10:00 AM EDT [facility] Cardiology After-Hours Patient Telephone Call Reason for call: Acute Concern Caller: Patient Outpatient Ladle Liner Helper: Elmer Dineroandrew Time: 03/05/2022 Patient wondering if he still needs to take his amiodarone now he is in sinus. No symptoms. I stated Elmer Minor started this for him and likely it is for maintaining sinus rhythm. His line disconnected. I tried calling back without response This note encounter has been routed to outpatient cyber workforce developer and manager Igor Dickens MD [facility] Press Leader, PGY-4 Pager #[phone] [employer] message me 7AM-4PM on for non-urgent matters documented in this encounter Plan of Treatment Not on file documented as of this encounter Visit Diagnoses Not on filedocumented in this encounter Care Teams Internet Cafe Manager Relationship Specialty Start Date End Date Linda Mccray MD [address] [place] [address] PCP - General Family Medicine 10/20/16 documented as of this encounter
--- OUTSIDE RECORDS SUMMARY | 2024-08-30 13:30 | XMS_ITS | Encounter Summary ---
Author Organization [facility] [place] [address] Care Team Providers Care Software Technical Lead Name Role Phone Linda Mccray MD Primary Care Provider [phone] Encounter Details Date Type Department Care Team (Late st Contact Info) Description 01/27/2022 [place] [address] Demetrius Sy III, MD [facility] [place] [address] Social History Tobacco Use Types Packs/Day Years [...] his prescription for flomax and tamsulosin. PHONE: [phone] documented in this encounter Plan of Treatment Not on file documented as of this encounter Visit Diagnoses Not on filedocumented in this encounter Care Teams Software Technical Lead Relationship Specialty Start Date End Date Linda Mccray MD [address] [place] [address] PCP - General Family Medicine 10/20/16 documented as of this encounter
--- OUTSIDE RECORDS SUMMARY | 2024-08-30 13:30 | XMS_ITS | Encounter Summary ---
Author Organization [facility] [place] [address] Care Team Providers Care Gluing Machine Operator Name Role Phone Linda Mccray MD Primary Care Provider [phone] Encounter Details Date Type Department Care Team (Late st Contact Info) Description 01/24/2023 Telephone [place] [address] Mirella Madden RN Social History Tobacco Use [...] 01/24/2023 8:46 AM EDT Copied from CRM #[id number]. Topic: Specialty Dept CRMs - Medication Issues >> Jan 23, 2023 2:31 PM Irish Chavez wrote: Medication Issues Specialist Micki Tillman MD Relationship (if other than patient-full name): Hilary- [id number] - [place], [place] - [address] Reason for call: Medication Issue (if symptom based used Triage Subtopic) Message/information for the nurse: Hilary from [facility] calling in states that [place] insurance [...] on filedocumented in this encounter Care Teams Gluing Machine Operator Relationship Specialty Start Date End Date Linda Mccray MD [address] [place] [address] PCP - General Family Medicine 10/20/16 documented as of this encounter
--- OUTSIDE RECORDS SUMMARY | 2024-08-30 13:30 | XMS_ITS | Encounter Summary ---
Author Organization [facility] [place] [address] Care Team Providers Care Network Architect Name Role Phone Linda Mccray MD Primary Care Provider [phone] Reason for Visit * Consultation (Routine) - Closed Specialty Diagnoses / Procedures Referred By Contac t Referred To Contact Pulmonology Diagnoses Chronic bullous emphysema Melanie Segal, [facility] [place] [address] [facility] Pulmonology [address] [place] [address] Referral ID Status Reason Start Date Expiration Date V isits Requested Visits Authorized [id number] Closed Consult, Test & Treat 07/15/2022 07/15/2023 1 1 Encounter Details Date Type Department Care Team (Latest Contact Info) Description 01/23/2023 1:00 PM EDT Office [place] [address] Micki Tillman MD [facility] [place] [address] Centrilobular emphysema Social History Tobacco [...] from the original note were not included. [facility] Section of Pulmonary and Critical Care Medicine Outpatient Consultation Date of Encounter: 01/23/2023 Referring Provider: Melanie Segal APRN [facility] [place] [address] Reason for Evaluation: Linda Mccray MD referred Mr. [place] Neri to me to evaluate and manage bullous emphysema. I independently interviewed and examined the patient in the office and have reviewed available records. History of Present Illness: Mr. Neri is a 72-year-old male who presents today for an initial clinic visit with me. The patient was initially seen in the pulmonary clinic at [facility] by Dr. Davis in 2017 for progressive [...] in the multidisciplinary pulmonary nodule clinic at [facility] in Jun 2022 for lung nodule that [...] underwent an acutely successful DC cardioversion at [facility] on 02/18/2022 after which she was started on amiodarone. In February 2022, he presented [place] [facility] with hemoptysis, dyspnea on [...] eventually seen in follow-up by EP at [facility] for his atrial fibrillation. [...] 2.78) performed by Navin Khalil MD at [facility] MAIN OR ??? PRO COLONOSCOPY, REMV LESN, SNARE N/A 01/26/2017 COLONOSCOPY, POLYPECTOMY, REMOVAL LESION BY SNARE (WRVU 4.67) performed by Lena Clark MD at [facility] ENDOSCOPY ??? PRO THORACOSCOPY SURG W/PLEURODESIS Left 03/06/2021 @THORACOSCOPY, SURG; W PLEURODESIS (WRVU 10.83) performed by Navin Khalil MD at [facility] MAIN OR ??? PRO THORACOSCOPY W RESECTION-PLICATION EMPHYSEMA LUNG UNILATERAL Left 03/06/2021 @THORACOSCOPY, SURG; W/RESC-PLICATION EMPHYSEMATOUS LUNG, UNILATERAL (WRVU 27) performed by Navin Khalil MD at [facility] MAIN OR ??? PRO THORACOSCOPY W/PARTIAL PULMONARY DECORTICATION Left 03/06/2021 @THORACOSCOPY, SURG; W PART. DECORTICATION (WRVU 18.78) performed by Navin Khalil MD at [facility] MAIN OR ??? PRO THORACOSCOPY W/PARTIAL PULMONARY DECORTICATION Left 03/09/2021 @THORACOSCOPY, SURG; W PART. DECORTICATION (WRVU 18.78) performed by Navin Khalil MD at [facility] MAIN OR ??? PRO THORACOTOMY, CTRL TRAUMA BLEED Left 03/09/2021 @THORACOTOMY WEXPL,CONTROL BLDNG (WRVU 25.28) performed by Navin Khalil MD at [facility] MAIN OR Family History: Mother from cancer [...] have questions please contact the health career information specialist that requested your imaging first. Electronically signed by: Rayna Kiser MD, [facility] ([phone]), at 07/15/2022 3:55 PM Echocardiogram: 03/13 Left [...] concerns or questions arise. Micki Tillman MD Microfabrication Engineer ManagerExtractor And Wringer Operator Pulmonary and [place] [address] documented in this encounter Plan of Treatment Not on file documented as of this encounter Visit Diagnoses Diagnosis Centrilobular emphysema Other emphysema documented in this encounter Care Teams Network Architect Relationship Specialty Start Date End Date Linda Mccray MD [address] [place] [address] PCP - General Family Medicine 10/20/16 documented as of this encounter
--- OUTSIDE RECORDS SUMMARY | 2024-08-30 13:30 | XMS_ITS | Encounter Summary ---
[place] [address] Care Team Providers Care Transition Coach Name Role Phone Linda Mccray MD Primary Care Provider Reason for Visit * Reason Onset Date Comments Other 03/04/2022 Encounter Details Date Type Department Care Team ([facility] Contact Info) Description 03/04/2022 Telephone Cardiology at [address] [phone] Nancy Tracy Other Social History Tobacco Use [...] Notes * Telephone Encounter - Nancy Tracy, DRIP MOLDER - 03/04/2022 2:23 PM EDT Patient called [...] filedocumented in this encounter Care Teams Transition Coach Relationship Specialty Start Date End Date Linda Mccray MD [address] [place] [address] PCP - General Family Medicine 10/20/16 documented as of this encounter
--- OUTSIDE RECORDS SUMMARY | 2024-08-30 13:30 | XMS_ITS | Encounter Summary ---
[place] [address] Care Team Providers Care Burner Machine Operator Name Role Phone Linda Mccray MD Primary Care Provider [phone] Reason for Visit * Reason Onset Date Comments Prior Authorization 01/30/2023 Spiriva Encounter Details Date Type Department Care Team ([facility] st Contact Info) Description 01/30/2023 [place] [phone] Alysia Gutierrez CMA Prior Authorization (Spiriva) Social [...] Date: 11/01/2022 End Date: 01/30/2024 Case/Reference #: [id number] Approval Letter scanned into media. * Telephone Encounter - Alysia Gutierrez CMA - 01/30/2023 3:12 PM EDT PA Submitted Submitted Date: Submitted Date: 01/30/2023 Medication Prior Authorization Patient: [place] Neri Patient : 1950 Insurance Company: [employer] Sent via: Segment Nguyen: [id number] Physician: Micki Tillman MD Medication Requested: tiotropium [...] initially seen in the pulmonary clinic at [facility] by Dr. Davis in 2017 for progressive [...] in the multidisciplinary pulmonary nodule clinic at [facility] in Jun 2022 for lung nodule that [...] underwent an acutely successful DC cardioversion at [facility] on 02/18/2022 after which she was started on amiodarone. In February 2022, he presented to [facility] with hemoptysis, dyspnea on exertion and his [...] eventually seen in follow-up by EP at [facility] for his atrial fibrillation. On review of [...] on filedocumented in this encounter Care Teams Burner Machine Operator Relationship Specialty Start Date End Date Linda Mccray MD [address] [place] [address] PCP - General Family Medicine 10/20/16 documented as of this encounter
--- OUTSIDE RECORDS SUMMARY | 2024-08-30 13:30 | XMS_ITS | Encounter Summary ---
Author Organization [facility] Address [facility] [place] [address] Care Team Providers Care Curtain Stitcher Name Role Phone Linda Mccray MD Primary Care Provider [phone] Encounter Details Date Type Department Care Team (Late st Contact Info) Description 01/27/2023 [place] [phone] Micki Tillman MD [facility] [place] [address] Social History Tobacco Use Types Packs/Day Years [...] on filedocumented in this encounter Care Teams Curtain Stitcher Relationship Specialty Start Date End Date Linda Mccray MD [address] [place] [address] PCP - General Family Medicine 10/20/16 documented as of this encounter
--- OUTSIDE RECORDS SUMMARY | 2024-08-30 13:30 | XMS_ITS | Encounter Summary ---
Author Organization [facility] Address [facility] [place] [address] Care Team Providers Care Furniture Duster Name Role Phone Linda Mccray MD Primary Care Provider [phone] Encounter Details Date Type Department Care Team (Latest Contact Info) Description 01/13/2022 10:15 AM EDT - 01/13/2022 11:59 PM EDT Hospital Encounter XRay at [address] [place] [address] Annemarie Gomez, CLUTCH INSPECTOR [facility] [place] [address] Trauma of chest, subsequent encounter Discharge Disposition: [...] questions please contact the health home care liaison that requested your imaging first. ? Narrative 01/13/2022 11:17 AM EDT EXAMINATION: XR CHEST PA AND LATERAL (GENERIC) CLINICAL HISTORY: FU left hemothorax, evaluate for interval change, prior imagin in [facility] thank you TECHNIQUE: PA and lateral [...] hemothorax, evaluate for interval change, priorimagin in [facility] thank you TECHNIQUE: PA and lateral [...] have questions please contactthe health home care liaison that requested your imaging first. Electronically signed by: Marci Martínez MD, [facility]([phone]), at 01/13/2022 11:17 AM Annemarie Gomez CLUTCH INSPECTOR IMG DX ORDERABLES documented in this encounter Visit Diagnoses Diagnosis Trauma of chest, subsequent encounter documented in this encounter Care Teams Furniture Duster Relationship Specialty Start Date End Date Linda Mccray MD [address] [place] [address] PCP - General Family Medicine 10/20/16 documented as of this encounter
--- OUTSIDE RECORDS SUMMARY | 2024-08-30 13:30 | XMS_ITS | Encounter Summary ---
Author Organization [facility] [place] [address] Care Team Providers Care Seam Stayer Name Role Phone Linda Mccray MD Primary Care Provider [phone] Encounter Details Date Type Department Care Team (Late st Contact Info) Description 06/29/2023 Telephone Pulmonology at [facility] [place] [phone] Mirella Madden RN Social History Tobacco Use [...] - 06/29/2023 12:29 PM EDT Copied from [facility] #[id number]. Topic: Specialty Dept CRMs - Generic Call [...] on filedocumented in this encounter Care Teams Seam Stayer Relationship Specialty Start Date End Date Linda Mccray MD [address] [place] [address] PCP - General Family Medicine 10/20/16 documented as of this encounter
--- OUTSIDE RECORDS SUMMARY | 2024-08-30 13:30 | XMS_ITS | Encounter Summary ---
Author Organization [facility] [place] [address] Care Team Providers Care Addiction Medicine Physician Name Role Phone Linda Mccray MD Primary Care Provider [phone] Encounter Details Date Type Department Care Team (Late st Contact Info) Description 12/29/2021 11:00 AM EST Office [place] [address] Annemarie Gomez, ORAL HYGIENIST [facility] [place] [address] Hospital discharge follow-up Social History Tobacco Use [...] this encounter Progress Notes * Annemarie Gomez, ORAL HYGIENIST - 12/29/2021 11:00 AM EST [place] Neri [...] examination documented in this encounter Care Teams Addiction Medicine Physician Relationship Specialty Start Date End Date Linda Mccray MD [address] [place] [address] PCP - General Family Medicine 10/20/16 documented as of this encounter
--- OUTSIDE RECORDS SUMMARY | 2024-08-30 13:30 | XMS_ITS | Encounter Summary ---
Author Organization [facility] [place] [address] Care Team Providers Care Veterinary Receptionist Name Role Phone Linda Mccray MD Primary Care Provider [phone] Encounter Details Date Type Department Care Team ([facility] st Contact Info) Description 08/08/2023 9:20 AM EDT [place] [address] Winifred Manning, [facility] [place] [address] BPH with obstruction/lower urinary tract symptoms; Erectile [...] this encounter Progress Notes * Winifred Manning, TECHNOLOGY SOLUTIONS ARCHITECT - 08/08/2023 9:20 AM EDT History of [...] penetrative intercourse. 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 [...] type documented in this encounter Care Teams Veterinary Receptionist Relationship Specialty Start Date End Date Linda Mccray MD [address] [place], [place] [address] PCP - General Family Medicine 10/20/16 documented as of this encounter
--- OUTSIDE RECORDS SUMMARY | 2024-08-30 13:30 | XMS_ITS | Encounter Summary ---
Author Organization [facility] [place] [address] Care Team Providers Care Supervisor Farm Equipment Maintenance Name Role Phone Linda Mccray MD Primary Care Provider Reason for Visit * Reason Onset Date Comments Other 01/24/2023 Regarding Spiriv a Encounter Details Date Type Department Care Team ([facility] Contact Info) Description 01/24/2023 [place] [phone] Mirella Madden RN Other (Regarding Spiriva ) [...] [facility] / Pager: [phone] * Telephone Encounter - Mirella Madden RN - 01/24/2023 3:08 PM EDT Copied from CRM #[id number]. Topic: Specialty Dept CRMs - Generic Call >> Jan 23, 2023 3:06 PM Ifrah Juárez wrote: Specialist: Dr Tillman Relationship (if other than patient-full name): none Reason for Call: pt could not get the script tiotropium bromide (Spiriva Respimat) 2.5 mcg/actuation Mist because his ins will not cover it. He would like something else ordered and sent to [facility]. Please call him to discuss documented in this encounter Plan of Treatment Not on file documented as of this encounter Visit Diagnoses Not on filedocumented in this encounter Care Teams Supervisor Farm Equipment Maintenance Relationship Specialty Start Date End Date Linda Mccray MD [address] [place] [address] PCP - General Family Medicine 10/20/16 documented as of this encounter
--- OUTSIDE RECORDS SUMMARY | 2024-08-30 13:30 | XMS_ITS | Encounter Summary ---
Author Organization [facility] [place] [address] Care Team Providers Care Metal Mixer Name Role Phone Linda Mccray MD Primary Care Provider [phone] Encounter Details Date Type Department Care Team (Late st Contact Info) Description 02/07/2023 Ancillary Procedure Radiology Library [place] [facility] [phone] Linda Mccray MD [address] [place] [address] Social History Tobacco Use Types Packs/Day Years [...] DX Shoulder (02/07/2023 12:00 AM EDT) Narrative [facility] - 03/29/2023 4:43 AM EDT This exam is auto-finalizing. It's purpose is for storage only. Linda Mccray MD [facility] FILM LIBRARY ORD ERABLES [place], [place] documented in this encounter Visit Diagnoses Not on filedocumented in this encounter Care Teams Metal Mixer Relationship Specialty Start Date End Date Linda Mccray MD [address] [place] [address] PCP - General Family Medicine 10/20/16 documented as of this encounter
--- OUTSIDE RECORDS SUMMARY | 2024-08-30 13:30 | XMS_ITS | Encounter Summary ---
[place] [address] Care Team Providers Care Geomagnetist Name Role Phone Linda Mccray MD Primary Care Provider [phone] Encounter Details Date Type Department Care Team ([facility] st Contact Info) Description 02/28/2022 Telephone Cardiology at [address] [phone] Rosmery Bush Social History Tobacco Use Types [...] on filedocumented in this encounter Care Teams Geomagnetist Relationship Specialty Start Date End Date Linda Mccray MD [address] [place] [address] PCP - General Family Medicine 10/20/16 documented as of this encounter
--- OUTSIDE RECORDS SUMMARY | 2024-08-30 13:30 | XMS_ITS | Encounter Summary ---
Author Organization [facility] [place] [address] Care Team Providers Care Link Trainer Maintenance Worker Name Role Phone Linda Mccray MD Primary Care Provider [phone] Reason for Visit * Reason Onset Date Comments Other 02/16/2023 Medication quest ions Encounter Details Date Type Department Care Team ([facility] Contact Info) Description 02/16/2023 Telephone Pulmonology at [facility] [place] [phone] Mirella Madden RN Other (Medication questions) Social [...] Mirella Madden RN Department of Pulmonary 5C, [facility] / Pager: [phone] documented in this encounter Plan of Treatment Not on file documented as of this encounter Visit Diagnoses Not on filedocumented in this encounter Care Teams Link Trainer Maintenance Worker Relationship Specialty Start Date End Date Linda Mccray MD [address] [place] [address] PCP - General Family Medicine 10/20/16 documented as of this encounter
--- OUTSIDE RECORDS SUMMARY | 2024-08-30 13:30 | XMS_ITS | Encounter Summary ---
Author Organization [facility] Address [facility] [place] [address] Care Team Providers Care Tip Printer Name Role Phone Linda Mccray MD Primary Care Provider [phone] Encounter Details Date Type Department Care Team (Late st Contact Info) Description 03/08/2022 Orders Only Cardiology at [address] [address] Elmer Minor, [place] [facility] [address] [place] [id number] Longstanding persistent atrial fibrillation Social History Tobacco [...] fibrillation documented in this encounter Care Teams Tip Printer Relationship Specialty Start Date End Date Linda Mccray MD [address] [place] [address] PCP - General Family Medicine 10/20/16 documented as of this encounter
--- OUTSIDE RECORDS SUMMARY | 2024-08-30 13:30 | XMS_ITS | Encounter Summary ---
Author Organization [facility] [place] [address] Care Team Providers Care Development Trainer Name Role Phone Linda Mccray MD Primary Care Provider [phone] Reason for Visit * Reason Comments Medication Refill Encounter Details Date Type Department Care Team (Late st Contact Info) Description 12/18/2021 Refill General Surgery at [facility] [place] [address] Albina Quach, BUILDING ENGINEER [facility] [place] [address] Social History Tobacco Use Types Packs/Day Years [...] on filedocumented in this encounter Care Teams Development Trainer Relationship Specialty Start Date End Date Linda Mccray MD [address] [place] [address] PCP - General Family Medicine 10/20/16 documented as of this encounter
--- OUTSIDE RECORDS SUMMARY | 2024-08-30 13:30 | XMS_ITS | Encounter Summary ---
[place] [address] Care Team Providers Care Project Director Name Role Phone Linda Mccray MD Primary Care Provider [phone] Encounter Details Date Type Department Care Team (Late st Contact Info) Description 03/10/2022 Telephone Cardiology at [address] [phone] Rosmery Bush Social History Tobacco Use Types [...] 4:15 PM EDT Echo order faxed to [facility] at [phone]. No prior auth needed. Ref #: [id number]. Rosmery Bush EP Scheduling documented in this encounter Plan of Treatment Not on file documented as of this encounter Visit Diagnoses Not on filedocumented in this encounter Care Teams Project Director Relationship Specialty Start Date End Date Linda Mccray MD [address] [place] [address] PCP - General Family Medicine 10/20/16 documented as of this encounter
--- OUTSIDE RECORDS SUMMARY | 2024-08-30 13:30 | XMS_ITS | Encounter Summary ---
Author Organization [facility] [place] [address] Care Team Providers Care Straightening Press Operator Name Role Phone Linda Mccray MD Primary Care Provider [phone] Encounter Details Date Type Department Care Team (Late st Contact Info) Description 12/26/2023 Telephone [place] [phone] Мария Cruz Social History Tobacco Use Types [...] on filedocumented in this encounter Care Teams Straightening Press Operator Relationship Specialty Start Date End Date Linda Mccray MD [address] [place] [address] PCP - General Family Medicine 10/20/16 documented as of this encounter
--- OUTSIDE RECORDS SUMMARY | 2024-08-30 13:30 | XMS_ITS | Encounter Summary ---
Author Organization [facility] [place] [address] Care Team Providers Care Drainage Inspector Name Role Phone Linda Mccray MD Primary Care Provider [phone] Reason for Visit * Reason Onset Date Comments Other 02/09/2023 Regarding Incrus e vs. Spiriva Encounter Details Date Type Department Care Team ([facility] Contact Info) Description 02/09/2023 [place] [phone] Desilets, Mirella Salter RN Other (Regarding Incruse [...] Madden RN Department of Pulmonary 5C, [facility] / Pager: [phone] * Telephone Encounter - Mirella Madden RN - 02/09/2023 12:18 PM EDT Copied from CRM #[id number]. Topic: Specialty Dept CRMs - Generic Call >> Feb 08, 2023 9:07 AM Leroy Recinos wrote: Specialist: Micki Tillman MD Relationship (if other than patient-full name): patient Reason for Call: Patient calling back to provide name of alternative inhaler that patient's insurance will cover. Patient states that insurance will cover Incruse Ellipta. Patient's preferred pharmacy is [id number] [place] [address]. Reference encounter 01/27/23. documented in this encounter Plan of Treatment Not on file documented as of this encounter Visit Diagnoses Not on filedocumented in this encounter Care Teams Drainage Inspector Relationship Specialty Start Date End Date Linda Mccray MD [address] [place] [address] PCP - General Family Medicine 10/20/16 documented as of this encounter
--- OUTSIDE RECORDS SUMMARY | 2024-08-30 13:30 | XMS_ITS | Encounter Summary ---
Author Organization [facility] [place] [address] Care Team Providers Care School Psychology Professor Name Role Phone Linda Mccray MD Primary Care Provider [phone] Reason for Visit * Reason Comments Follow-up Encounter Details Date Type Department Care Team ([facility] Contact Info) Description 01/13/2022 11:30 AM EDT Office [place] [address] Annemarie Gomez, EVENT CREW TECHNICIAN [facility] [place] [address] Hemothorax on left Social History Tobacco Use [...] this encounter Progress Notes * Annemarie Gomez, EVENT CREW TECHNICIAN - 01/13/2022 11:30 AM EDT London Neri [...] tuberculous documented in this encounter Care Teams School Psychology Professor Relationship Specialty Start Date End Date Linda Mccray MD [address] [place] [address] PCP - General Family Medicine 10/20/16 documented as of this encounter
--- OUTSIDE RECORDS SUMMARY | 2024-08-30 13:31 | XMS_ITS | Encounter Summary ---
Author Organization [facility] [place] [address] Care Team Providers Care Mortgage Processor Name Role Phone Linda Mccray MD Primary Care Provider [phone] Encounter Details Date Type Department Care Team (Late st Contact Info) Description 12/12/2021 7:00 AM EST Ancillary Procedure Radiology Library at [facility] [place] [phone] Social History Tobacco Use Types Packs/Day Years [...] who have questions please contact the health family day care worker that requested your imaging first. ? Electronically signed by: Matti Palacio MD, [facility] ([phone]), at 12/13/2021 4:03 PM --------ORIGINAL REPORT -------- EXAMINATION: REQUEST FOR 2ND READ CT CHEST CLINICAL HISTORY: Rib fractures after trauma, assess for additional injury; Sending Institution [facility]; Date of exam 20211211; I believe a [...] who have questions please contact the health family day care worker that requested your imaging first. ? Electronically signed by: Matti Palacio MD, [facility] ([phone]), at 12/12/2021 9:25 AM Impressions 12/12/2021 9:25 [...] who have questions please contact the health family day care worker that requested your imaging first. ? Electronically signed by: Matti Palacio MD, [facility] ([phone]), at 12/12/2021 9:25 AM Narrative 12/12/2021 9:25 AM EST EXAMINATION: REQUEST FOR 2ND READ CT CHEST CLINICAL HISTORY: Rib fractures after trauma, assess for additional injury; Sending Institution [facility]; Date of exam 20211211; I believe a [...] after trauma, assess for additionalinjury; Sending Institution [facility]; Date of exam 20211211; I believe areinterpretation [...] patients who have questions please contactthe health family day care worker that requested your imaging first. Electronically signed by: Matti Palacio MD, [facility]([phone]), at 12/12/2021 9:25 AM Rayna High MD IMG OUTSIDE INTERPRE TATION ORDERABLES documented in this encounter Visit Diagnoses Not on filedocumented in this encounter Care Teams Mortgage Processor Relationship Specialty Start Date End Date Linda Mccray MD [address] [place] [address] PCP - General Family Medicine 10/20/16 documented as of this encounter
--- OUTSIDE RECORDS SUMMARY | 2024-08-30 13:31 | XMS_ITS | Encounter Summary ---
Author Organization [facility] Address [facility] [place] [address] Care Team Providers Care Equipment Or Machinery Cleaner Name Role Phone Linda Mccray MD Primary Care Provider [phone] Encounter Details Date Type Department Care Team (Latest Contact Info) Description 03/30/2021 2:34 PM EDT - 03/30/2021 11:59 PM EDT Hospital Encounter XRay at [address] [place] [address] Navin Khalil MD [facility] [place] [address] Recurrent spontaneous pneumothorax Discharge Disposition: Home Social [...] who have questions please contact the health caretaker grounds that requested your imaging first. ? Electronically signed by: Malika Thayer MD, [facility] ([phone]), at 03/30/2021 2:52 PM Narrative 03/30/2021 2:52 [...] patients who have questions please contactthe health caretaker grounds that requested your imaging first. Navin Khalil MD IMG DX ORDERABLES documented in this encounter Visit Diagnoses Diagnosis Recurrent spontaneous pneumothorax Other pneumothorax documented in this encounter Care Teams Equipment Or Machinery Cleaner Relationship Specialty Start Date End Date Linda Mccray MD [address] [place] [address] PCP - General Family Medicine 10/20/16 documented as of this encounter
--- OUTSIDE RECORDS SUMMARY | 2024-08-30 13:31 | XMS_ITS | Encounter Summary ---
Author Organization [facility] [place] [address] Care Team Providers Care Bran Mixer Name Role Phone Linda Mccray MD Primary Care Provider [phone] Encounter Details Date Type Department Care Team (Late st Contact Info) Description 08/26/2021 [place] [address] Uri Sawyer MD [facility] [place] [address] Social History Tobacco Use Types Packs/Day Years [...] on filedocumented in this encounter Care Teams Bran Mixer Relationship Specialty Start Date End Date Linda Mccray MD [address] [place] [address] PCP - General Family Medicine 10/20/16 documented as of this encounter
--- OUTSIDE RECORDS SUMMARY | 2024-08-30 13:31 | XMS_ITS | Encounter Summary ---
Author Organization [facility] [place] [address] Care Team Providers Care Dog Behaviorist Name Role Phone Linda Mccray MD Primary Care Provider [phone] Encounter Details Date Type Department Care Team (Late st Contact Info) Description 12/11/2021 8:55 PM EST Ancillary Procedure Radiology Library at [facility] [place] [phone] Linda Mccray MD [address] [place] [address] Social History Tobacco Use Types Packs/Day Years [...] DX Chest (12/11/2021 8:52 PM EST) Narrative [facility] - 12/11/2021 8:52 PM EST This exam is auto-finalizing. It's purpose is for storage only. Linda Mccray MD [facility] FILM LIBRARY ORD ERABLES [place], [place] documented in this encounter Visit Diagnoses Not on filedocumented in this encounter Care Teams Dog Behaviorist Relationship Specialty Start Date End Date Linda Mccray MD [address] [place] [address] PCP - General Family Medicine 10/20/16 documented as of this encounter
--- OUTSIDE RECORDS SUMMARY | 2024-08-30 13:31 | XMS_ITS | Encounter Summary ---
Author Organization Formerly [facility] Address [facility] [place] [address] Care Team Providers Care Assignment Manager Name Role Phone Linda Mccray MD Primary Care Provider [phone] Encounter Details Date Type Department Care Team ([facility] st Contact Info) Description 03/15/2021 Notes Only Cardiology at [address] [address] Elmer Minor PA [facility] [place] [address] Social History Tobacco Use Types Packs/Day Years [...] Remote Monitoring Interpretation Transmission Date: 03/13/2021 Device Transfer And Pumphouse Operator Chief and Type: Battery Status: 10yrs Atrial lead [...] recovered from his procedure. He lives in [place], [place] Provider: WASHINGTON Salas EP Consult attending physician: Sivan Houser MD documented in this encounter Plan of Treatment Not on file documented as of this encounter Visit Diagnoses Not on filedocumented in this encounter Care Teams Assignment Manager Relationship Specialty Start Date End Date Linda Mccray MD [address] [place] [address] PCP - General Family Medicine 10/20/16 documented as of this encounter
--- OUTSIDE RECORDS SUMMARY | 2024-08-30 13:31 | XMS_ITS | Encounter Summary ---
Author Organization [facility] [place] [address] Care Team Providers Care Rotary Dryer Operator Name Role Phone Linda Mccray MD Primary Care Provider [phone] Reason for Referral * Diagnostic Test (Routine) - Closed Specialty Diagnoses / Procedures Referred By Contac t Referred To Contact Radiology Diagnoses Recurrent spontaneous pneumothorax Cigarette nicotine dependence in remission H/O asbestos exposure Procedures CT Chest wo Contrast (Generic) Kendall Lucas MD [facility] [place] [address] [facility] [place] [address] Referral ID Status Reason Start Date Expiration Date V isits Requested Visits Authorized [id number] Closed Specialty Service Requested 10/27/2021 04/20/2023 1 1 Reason for Visit * Reason Comments Emphysema Encounter Details Date Type Department Care Team (Late st Contact Info) Description 10/12/2021 2:30 PM EST Office [place] [address] Kendall Lucas MD [facility] [place] [address] Recurrent spontaneous pneumothorax; Cigarette nicotine [...] Outpatient Follow Up Note Kendall Lucas MD [place] [address] FAX: Pre Op Dx: recurrent spontaneous pneumothorax, [...] Malorie Mccauley APRN 10/12/2021 Thoracic Surgery [facility] I have seen the patient [...] who have questions please contact the health patient care secretary that requested your imaging first. ? Narrative [...] patients who have questions please contactthe health patient care secretary that requested your imaging first. Kendall Lucas MD IMG CT ORDERABLES documented [...] asbestos documented in this encounter Care Teams Rotary Dryer Operator Relationship Specialty Start Date End Date Linda Mccray MD [address] [place] [address] PCP - General Family Medicine 10/20/16 documented as of this encounter
--- OUTSIDE RECORDS SUMMARY | 2024-08-30 13:31 | XMS_ITS | Encounter Summary ---
Author Organization [facility] [place] [address] Care Team Providers Care Mixer Operator Vacuum Pan Salt Name Role Phone Linda Mccray MD Primary Care Provider [phone] Encounter Details Date Type Department Care Team (Late st Contact Info) Description 03/17/2021 Telephone [place] [phone] Carmen Ferrer RN Social History Tobacco Use [...] on filedocumented in this encounter Care Teams Mixer Operator Vacuum Pan Salt Relationship Specialty Start Date End Date Linda Mccray MD [address] [place] [address] PCP - General Family Medicine 10/20/16 documented as of this encounter
--- OUTSIDE RECORDS SUMMARY | 2024-08-30 13:31 | XMS_ITS | Encounter Summary ---
Author Organization [facility] Address [facility] [place] [address] Care Team Providers Care Direct Care Counselor Name Role Phone Linda Mccray MD Primary Care Provider [phone] Encounter Details Date Type Department Care Team (Late st Contact Info) Description 11/24/2021 Telephone Cardiology at [address] [phone] Katerina Reina RN Social History Tobacco Use [...] on filedocumented in this encounter Care Teams Direct Care Counselor Relationship Specialty Start Date End Date Linda Mccray MD [address] [place] [address] PCP - General Family Medicine 10/20/16 documented as of this encounter
--- OUTSIDE RECORDS SUMMARY | 2024-08-30 13:31 | XMS_ITS | Encounter Summary ---
Author Organization Formerly [facility] Address [facility] [place] [address] Care Team Providers Care Shaft Mechanic Name Role Phone Linda Mccray MD Primary Care Provider [phone] Encounter Details Date Type Department Care Team (Latest Contact Info) Description 06/21/2021 8:47 AM EDT - 06/21/2021 11:59 PM EDT Hospital Encounter Non-Invasive [place] [address] Tristan Olivera MD [facility] [place] [address] CHB (complete heart block) Discharge Disposition: Home [...] complete documented in this encounter Care Teams Shaft Mechanic Relationship Specialty Start Date End Date Linda Mccray MD [address] [place] [address] PCP - General Family Medicine 10/20/16 documented as of this encounter
--- OUTSIDE RECORDS SUMMARY | 2024-08-30 13:31 | XMS_ITS | Encounter Summary ---
Author Organization [facility] [place] [address] Care Team Providers Care Remote Operations Producer Name Role Phone Linda Mccray MD Primary Care Provider [phone] Reason for Referral * Consultation (Routine) - Closed Specialty Diagnoses / Procedures Referred By Contac t Referred To Contact Urology Diagnoses Recurrent spontaneous pneumothorax Continuous leakage of urine Kendall Lucas MD [facility] [place] [address] Referral ID Status Reason Start Date Expiration Date V isits Requested Visits Authorized [id number] Closed Consult, Test & Treat 03/30/2021 09/26/2021 1 1 * Diagnostic Test (Routine) - Closed Specialty Diagnoses / Procedures Referred By Contac t Referred To Contact Radiology Diagnoses Recurrent spontaneous pneumothorax Procedures CT Chest w Contrast Kendall Lucas MD [facility] [place] [address] [facility] [place] [address] Referral ID Status Reason Start Date Expiration Date V isits Requested Visits Authorized [id number] Closed Specialty Service Requested 03/30/2021 09/29/2022 1 1 Reason for Visit * Reason Comments Follow Up Surgery Emphysema Encounter Details Date Type Department Care Team ([facility] st Contact Info) Description 03/30/2021 3:15 PM EDT Office [place] [address] Kendall Lucas MD [facility] [place] [address] Recurrent spontaneous pneumothorax; Continuous leakage of urine [...] visiting Dr. Lucas in clinic 03/30/21 Dr. Lucas would like to see you back in clinic in 6 months with a recent CT scan of your chest with IV contrast. You will receive a letter in the mail/ receive a call to schedule this appointment. We have sent a referral to Urology at [facility]. ?? Exercise each day for 30 [...] Follow Up Note MD Winifred Eason PA-C [place] [address] FAX: Pre Op Dx: recurrent spontaneous pneumothorax, [...] questions Winifred Patel PA-C 03/30/2021 Thoracic Surgery [facility] I have seen the patient and [...] who have questions please contact the health out of school hours care worker that requested your imaging first. ? Electronically signed by: Matti Palacio MD, [facility] ([phone]), at 10/12/2021 2:35 PM Narrative 10/12/2021 2:35 [...] patients who have questions please contactthe health out of school hours care worker that requested your imaging first. Kendall Lucas MD IMG CT ORDERABLES * Creatinine (10/12/2021 11:52 AM EST) Creatinine 0.98 0.80 - 1.50 mg/dL [facility] Est Glomerular Filtration Rate 77 >=60 mL/min/1. 73 m?? [facility] Comment: This patient? s estimated [...] In Lab Kendall Lucas MD CHEMISTRY ORDERABLES [facility] [place] [address] documented in this encounter Visit Diagnoses Diagnosis Recurrent spontaneous pneumothorax Other pneumothorax Continuous leakage of urine Continuous leakage Recurrent spontaneous pneumothorax Other pneumothorax documented in this encounter Care Teams Remote Operations Producer Relationship Specialty Start Date End Date Linda Mccray MD [address] [place] [address] PCP - General Family Medicine 10/20/16 documented as of this encounter
--- OUTSIDE RECORDS SUMMARY | 2024-08-30 13:31 | XMS_ITS | Encounter Summary ---
[place] [address] Care Team Providers Care Aircraft Rigging And Controls Mechanic Name Role Phone Linda Mccray MD Primary Care Provider [phone] Reason for Referral * Consultation (Urgent) - Closed Specialty Diagnoses / Procedures Referred By Contac t Referred To Contact Urology Diagnoses Continuous leakage of urine 07/31/21 - CALLED X 1 -NOT URGENT- NPW NEXT AVAILABLE - Navin Khalil MD [facility] [address] [facility] [place] [address] Referral ID Status Reason Start Date Expiration Date V isits Requested Visits Authorized [id number] Closed Consult, Test & Treat 07/14/2021 07/14/2022 1 1 Encounter Details Date Type Department Care Team (Late st Contact Info) Description 07/14/2021 Orders [place] [address] Carmen Ferrer, RN Continuous leakage [...] leakage documented in this encounter Care Teams Aircraft Rigging And Controls Mechanic Relationship Specialty Start Date End Date Linda Mccray MD [address] [place] [address] PCP - General Family Medicine 10/20/16 documented as of this encounter
--- OUTSIDE RECORDS SUMMARY | 2024-08-30 13:31 | XMS_ITS | Encounter Summary ---
Author Organization [facility] [place] [address] Care Team Providers Care Motor Vehicle Assembly Supervisor Name Role Phone Linda Mccray MD Primary Care Provider [phone] Encounter Details Date Type Department Care Team ([facility] st Contact Info) Description 11/25/2021 [place] [phone] Demetrius Sy III, MD [facility] [place] [address] Social History Tobacco Use Types Packs/Day Years [...] on filedocumented in this encounter Care Teams Motor Vehicle Assembly Supervisor Relationship Specialty Start Date End Date Linda Mccray MD [address] [place] [address] PCP - General Family Medicine 10/20/16 documented as of this encounter
--- OUTSIDE RECORDS SUMMARY | 2024-08-30 13:31 | XMS_ITS | Encounter Summary ---
Author Organization [facility] [place] [address] Care Team Providers Care Pottery Decorator Name Role Phone Linda Mccray MD Primary Care Provider [phone] Encounter Details Date Type Department Care Team (Late st Contact Info) Description 12/11/2021 9:00 PM EST Ancillary Procedure Radiology Library at [facility] [place] [phone] Linda Mccray MD [address] [place] [address] Social History Tobacco Use Types Packs/Day Years [...] CT Chest (12/11/2021 8:53 PM EST) Narrative [facility] - 12/11/2021 8:53 PM EST This exam is auto-finalizing. It's purpose is for storage only. Linda Mccray MD [facility] FILM LIBRARY ORD ERABLES [place], [place] documented in this encounter Visit Diagnoses Not on filedocumented in this encounter Care Teams Pottery Decorator Relationship Specialty Start Date End Date Linda Mccray MD [address] [place] [address] PCP - General Family Medicine 10/20/16 documented as of this encounter
--- OUTSIDE RECORDS SUMMARY | 2024-08-30 13:31 | XMS_ITS | Encounter Summary ---
Author Organization [facility] Address [facility] [place] [address] Care Team Providers Care Ad Compositor Name Role Phone Linda Mccray MD Primary Care Provider [phone] Encounter Details Date Type Department Care Team (Latest Contact Info) Description 09/20/2021 9:25 AM EST - 09/20/2021 11:59 PM EST Hospital Encounter [place] [address] Jordana Tarango MD [facility] [place] [address] CHB (complete heart block) Discharge Disposition: Home [...] pdf document Date of transmission: 09/20/2021 Device metallography teacher: SAMY Device type: DC PM Presenting rhythm: AFVP AP 0% FINANCIAL MARKET DEALER 100% Battery: 3.03V, 11.25 years Episodes: no tachy persistent AFsince March 2021 Stable lead trends. Activity [place] Jordana Tarango MD 10/01/2021 2:22 PM Jordana Tarango MD IMPLANTABLE CARDIAC DEVICE documented in this encounter Visit Diagnoses Diagnosis CHB (complete heart block) Atrioventricular block, complete documented in this encounter Care Teams Ad Compositor Relationship Specialty Start Date End Date Linda Mccray MD [address] [place] [address] PCP - General Family Medicine 10/20/16 documented as of this encounter
--- OUTSIDE RECORDS SUMMARY | 2024-08-30 13:31 | XMS_ITS | Encounter Summary ---
Author Organization [facility] [place] [address] Care Team Providers Care Referral Specialist Name Role Phone Linda Mccray MD Primary Care Provider [phone] Encounter Details Date Type Department Care Team (Late st Contact Info) Description 04/09/2021 Telephone [place] [phone] Shani Maier Social History Tobacco Use Types Packs/Day [...] 04/09/2021 8:31 AM EDT Referral faxed to [facility] and PCP documented in this encounter Plan of Treatment Not on file documented as of this encounter Visit Diagnoses Not on filedocumented in this encounter Care Teams Referral Specialist Relationship Specialty Start Date End Date Linda Mccray MD [address] [place] [address] PCP - General Family Medicine 10/20/16 documented as of this encounter
--- OUTSIDE RECORDS SUMMARY | 2024-08-30 13:31 | XMS_ITS | Encounter Summary ---
Author Organization [facility] Address [facility] [place] [address] Care Team Providers Care Inpatient Auditor Name Role Phone Linda Vang MD Primary Care Provider [phone] Reason for Visit * Reason Comments [facility] Transfer Trauma Alert * Auth/Cert Specialty Diagnoses / Procedures Referred By Contac t Referred To Contact Diagnoses Rib fractures trauma / slip & fall on ice Procedures n/a Referral ID Status Reason Start Date Expiration Date Visits Re quested Visits Authorized [id number] 1 1 Encounter Details Date Type Department Care Team (Latest Contact Info) Description 12/12/2021 1:12 AM EST - 12/16/2021 1:31 PM [facility] Hospital Encounter [address] [place] [address] Rayna High MD [facility] [place] [address] Carlos Manuel Dodson MD [facility] [place] [address] Harjinder Light MD [address] [place] [address] [place] [address] Closed fracture of multiple ribs, unspecified laterality, [...] this encounter Discharge Summaries * Albina Quach, BENDER MACHINE OPERATOR - 12/16/2021 10:06 AM EST Trauma Discharge [...] Time Provider Department Center 12/29/2021 9:45 AM [facility] DB XRAY ROOM 2 MH Xray [facility] Rad 12/29/2021 11:00 AM Annemarie Gomez APRN [facility] SURG [facility] Other In-hospital Issues: - Acute Pain - [...] HPI: London Neri??is a 71 y.o.??male??presents to [facility] s/p slip and fall on ice. ??Description [...] Lines/Tubes/Drains: None at discharge Consults (Please see portfolio consultant notes): PT/OT, cardiology, EP? Incidental Findings:?? [...] resolution.?? [x]?Incidental Findings Form Completed (Albina Quach, BENDER MACHINE OPERATOR 12/16/2021) Incidental Findings: Superior segment LEFT lower [...] Time Provider Department Center 12/29/2021 9:45 AM [facility] DB XRAY ROOM 2 Xray [facility] Rad 12/29/2021 11:00 AM Annemarie Gomez APRN [facility] SURG [facility] Outpatient Services/Studies: XR Chest PA & Lateral (Generic) Standing Status: Future Standing Exp. Date: 06/30/22 Question Response Notes Where will study be performed? [facility] Radiology [120] Reason for exam and clinical history: s/p mech fall, now with rib fx and hemothorax, ? interval changes CT Chest wo Contrast (Generic) Standing Status: Future Standing Exp. Date: 09/13/22 Question Response Notes Where will study be performed? [facility] Radiology [120] Referral to Home Health - at DISCHARGE Order Comments: DOCUMENTATION FOR VNA SERVICES (INCLUDING THOSE PATIENTS WITH MEDICARE COVERAGE REQUIRING HOME VNA SERVICES AND/OR HOSPICE SERVICES) PATIENT'S LOCATION: London Neri [address] [place] [phone] (home) Cell: Telephone Information: In discussion with the attending physician, it is certified that this patient is under their care and that they, or a Nurse Practitioner,Clinical Nurse specialist or Physician Pricing Manager who is working directly with them, had [...] for managing ADL's. HOME HEALTH CARE AGENCY: [facility]. PHONE: [phone] FAX: [phone] Start of care: 24-48 hours after discharge [...] Linda Vang MD [address] / [facility] [address] All [facility] agencies which cover the area of patient's residence have been reviewed, either verbally jagruti writing, and patient/family have chosen the home health care agency noted Question Response Notes Agency name and contact information [facility] Patient location post discharge Home What services are requested Registered Nurse What services are requested Physical Therapy What services are requested Occupational Therapy Responsible MD post discharge contact info PCP Special Instructions Given to Patient at Discharge:. An After Visit Summary was printed and given to the patient. Your care was managed by the Trauma and Acute Care Surgery Team at [facility]. If you have any questions or concerns, please feel free to contact us. Provider Contact Information: General Surgery Clinic: Nurses line for questions: [facility] (after business hours): CC: Linda Vang MD Paradise Kirti Gomez APRN Signed: Albina Quach APRN Department of Surgery 12/16/2021 Trauma pager [phone] documented in this encounter Discharge Instructions * [...] a nurse in the Thoracic Clinic at [phone]. After hours or on weekends or holidays please call: [phone] and ask to speak to the Thoracic Surgeon crop production advisor. Exercise & Activity Level: As you recover [...] Time Provider Department Center 12/29/2021 9:45 AM [facility] DB XRAY ROOM 2 Xray [facility] Rad 12/29/2021 11:00 AM Annemarie Gomez APRN [facility] SURG [facility] Narcotics: You may be given a prescription [...] 1. You will have follow-up appointments at [facility] as indicated in the ???Future Appointments and [...] on the next business day. Please call [phone] if you do not hear from us by that time, as your timely follow-up is very important to us. Your care was managed by the Trauma and Acute Care Surgery Team at [facility]. If you have any questions or concerns, please feel free to contact us. Provider Contact Information: General Surgery: [facility] (after business hours): Primary Care Physician: LINDA [...] sent through Care Everywhere. * Rib Fracture (Armenian) documented in this encounter Medications at Time [...] report and faxed discharge summary to [facility]. AVS reviewed and gave to the pt. * Everardo Beasley MSW - 12/16/2021 10:43 AM EST [employer] IN[employer] CONSULTANT met with pt to provide information on [...] CASE INFORMATION: None FOLLOW-UP NEEDED: Specify Trauma PUMP ROOM OPERATOR or Attending and time frame (please indicate reason if attending provider): BENDER MACHINE OPERATOR How soon should TACS f/u be? 10-14 [...] History: Home set-up: Lives alone in a [place], [place]; he has a tenant upstairs, and his barber in [facility]. He has 1 cat at [...] wheeled (got a recliner set up from [facility], to carry cellphone, but ?lifeline) Physical Therapy [...] Billing Code: functional mobility JITENDRA STEVENSON, PT Pager:[phone] Physical Therapy Inpatient Rehabilitation Department * Margarte Treviño OT - 12/15/2021 3:10 PM EST [...] Trauma Daily Progress Note ID/Mechanism of injury: Lnodon Neri is a 71 y.o. Male admitted [...] EXT: Upper extremities: Demonstrate full ROM. 5/5 field auto appraiser strength. Able to follow commands. Lower extremities: [...] tolerating diet Lines/Tubes/Drains: PIV Consults (Please see portfolio consultant notes): PT/OT, cardiology, EP Dispo: home [...] Form Completed [place] 12/15/2021 Trauma pager [phone] * Meghan Castrejon APRN - 12/15/2021 7:01 [...] use): Flexeril 5 mg PO x 3 (9849, 7074, 0356) Oxycodone 2.5 x 3 (1232, 1749, [...] for recurrent spontaneous pneumothorax who presented to [facility] s/p slip and fall on ice found [...] shoes while OOB - Encourage work with PT/OT/SOIL TECHNICIAN ?? Cognitive Status -Delirium Prevention and Management [...] Rehabilitation Facility []? SNF []? LTC []? GROUP HOME [x]? Home with Visiting Nurse Services []? Home with Hospice Services []? Home without-Patient Services ? 35 minute visit discussing pathophysiology and the diagnosis, and counselling this patient on treatment options, expectations and follow-up plan. ?? Geriatrics Pager: #[phone]??(M-F, 8am-5 pm) ?? Meghan Castrejon, CARRIE General Internal Medicine [facility] ?? * Willi Anderson RN - 12/15/2021 [...] EXT: Upper extremities: Demonstrate full ROM. 5/5 field auto appraiser strength. Able to follow commands. Lower extremities: [...] - pericolace BID - dulcolax PRN LBM: SIX SIGMA BLACK BELT ENGINEER ?? Admission UA: negative ?? Tox Screen: [...] tolerating diet Lines/Tubes/Drains: PIV Consults (Please see portfolio consultant notes): PT/OT, cardiology, EP Dispo: home with VNA and FWW,CRC working on dispo plan Status: Floor ?? Incidental Findings: Superior segment LEFT lower lobe 2.0 cm nodule. New compared to CT from 10/12/2021; recommend close interval follow-up for assessment of stability. [x]? Incidental Findings Form Completed, Tea, 12/12/2021 [place] 12/14/2021 Trauma pager [phone] * Jitendra Stevenson, PT - 12/14/2021 12:32 [...] History: Home set-up: Lives alone in a [place], [place]; he has a tenant upstairs, and his barber in [facility]. He has 1 cat at [...] be power operated, pt [facility] and that they will deliver it. O, [...] pain which limited his mobility significantly today, staffing rn aware and monitoring at end of session. [...] Billing Code: functional mobility JITENDRA STEVENSON, PT Pager:[phone] Physical Therapy Inpatient Rehabilitation Department * Willi [...] EXT: Upper extremities: Demonstrate full ROM. 5/5 field auto appraiser strength. Able to follow commands. Lower extremities: [...] - pericolace BID - dulcolax PRN LBM: SIX SIGMA BLACK BELT ENGINEER ?? Admission UA: negative ?? Tox Screen: [...] tolerating diet Lines/Tubes/Drains: PIV Consults (Please see portfolio consultant notes): PT/OT, cardiology, EP Dispo: home with VNA and FWW,CRC working on dispo plan Status: Floor ?? Incidental Findings: Superior segment LEFT lower lobe 2.0 cm nodule. New compared to CT from 10/12/2021; recommend close interval follow-up for assessment of stability. [x]? Incidental Findings Form Completed, Tea, 12/12/2021 [place] 12/13/2021 Trauma pager [phone] * Margaret Treviño, OT - 12/13/2021 1:15 PM EST Occupational Therapy Evaluation Patient profile: oLndon Neri is a 71 y.o. male admitted [...] 2.78) performed by Navin Khalil MD at [facility] MAIN OR ??? PRO COLONOSCOPY, REMV LESN, SNARE N/A 01/26/2017 COLONOSCOPY, POLYPECTOMY, REMOVAL LESION BY SNARE (WRVU 4.67) performed by Lena Clark MD at [facility] ENDOSCOPY ??? PRO THORACOSCOPY SURG W/PLEURODESIS Left 03/06/2021 @THORACOSCOPY, SURG; W PLEURODESIS (WRVU 10.83) performed by Navin Khalil MD at [facility] MAIN OR ??? PRO THORACOSCOPY W RESECTION-PLICATION EMPHYSEMA LUNG UNILATERAL Left 03/06/2021 @THORACOSCOPY, SURG; W/RESC-PLICATION EMPHYSEMATOUS LUNG, UNILATERAL (WRVU 27) performed by Navin Khalil MD at [facility] MAIN OR ??? PRO THORACOSCOPY W/PARTIAL PULMONARY DECORTICATION Left 03/06/2021 @THORACOSCOPY, SURG; W PART. DECORTICATION (WRVU 18.78) performed by Navin Khalil MD at [facility] MAIN OR ??? PRO THORACOSCOPY W/PARTIAL PULMONARY DECORTICATION Left 03/09/2021 @THORACOSCOPY, SURG; W PART. DECORTICATION (WRVU 18.78) performed by Navin Khalil MD at [facility] MAIN OR ??? PRO THORACOTOMY, CTRL TRAUMA BLEED Left 03/09/2021 @THORACOTOMY WEXPL,CONTROL BLDNG (WRVU 25.28) performed by Navin Khalil MD at [facility] MAIN OR Social History: Patient is currently living alone in a single story home with 6 DAVION. is in [place] until the end of December. Home Setup: [...] deficits Vision & Perception: ?? corrective lenses acute care nurse Communication: WFL Range of motion, strength, coordination: [...] grooming tasks standing at the sink at [facility]. Pt will complete toileting routine at [facility] including transfer to the bathroom, clothing management, and hygiene. Pt will complete UB bathing and dressing in sitting after set up. Pt will complete LB dressing with at [facility] using AE as needed. Pt will complete functional transfers and mobility of a household [facility] using self pacing as needed. Plan: [...] and measurable assessment of functional outcome. Pager: [phone] Margaret Treviño OT 12/13/2021 Occupational Therapy Rehabilitation [...] Social History: Home set-up: Lives alone in [place], [place]; he has a tenant upstairs, and his barber in [facility]. He has 1 cat at [...] Billing Code: functional mobility JITENDRA STEVENSON, PT Pager:[phone] Physical Therapy Inpatient Rehabilitation Department * Jitendra [...] ??? Aortic insufficiency ??? Current use of terminal operations manager anticoagulation ??? Heart block ??? Chronic bullous [...] 2.78) performed by Navin Khalil MD at [facility] MAIN OR ??? PRO COLONOSCOPY, REMV LESN, SNARE N/A 01/26/2017 COLONOSCOPY, POLYPECTOMY, REMOVAL LESION BY SNARE (WRVU 4.67) performed by Lena Clark MD at [facility] ENDOSCOPY ??? PRO THORACOSCOPY SURG W/PLEURODESIS Left 03/06/2021 @THORACOSCOPY, SURG; W PLEURODESIS (WRVU 10.83) performed by Navin Khalil MD at [facility] MAIN OR ??? PRO THORACOSCOPY W RESECTION-PLICATION EMPHYSEMA LUNG UNILATERAL Left 03/06/2021 @THORACOSCOPY, SURG; W/RESC-PLICATION EMPHYSEMATOUS LUNG, UNILATERAL (WRVU 27) performed by Navin Khalil MD at [facility] MAIN OR ??? PRO THORACOSCOPY W/PARTIAL PULMONARY DECORTICATION Left 03/06/2021 @THORACOSCOPY, SURG; W PART. DECORTICATION (WRVU 18.78) performed by Navin Khalil MD at [facility] MAIN OR ??? PRO THORACOSCOPY W/PARTIAL PULMONARY DECORTICATION Left 03/09/2021 @THORACOSCOPY, SURG; W PART. DECORTICATION (WRVU 18.78) performed by Navin Khalil MD at [facility] MAIN OR ??? PRO THORACOTOMY, CTRL TRAUMA BLEED Left 03/09/2021 @THORACOTOMY WEXPL,CONTROL BLDNG (WRVU 25.28) performed by Navin Khalil MD at [facility] MAIN OR Social History: Home set-up: Lives alone in [place], [place]; he has a tenant upstairs, and his barber in [facility]. He has 1 cat at [...] not sleep well last night. Vision: glasses acute care nurse Skin: IV RUE. Musculoskeletal: ROM: AROM of [...] 51 Billing Code: tushar STEVENSON, PT Pager: [phone] Physical Therapy Inpatient Rehabilitation Department * Malorie [...] is a 71 y.o. male presents to [facility] s/p slip and fall on ice. Description [...] 2.78) performed by Navin Khalil MD at [facility] MAIN OR ??? PRO COLONOSCOPY, REMV LESN, SNARE N/A 01/26/2017 COLONOSCOPY, POLYPECTOMY, REMOVAL LESION BY SNARE (WRVU 4.67) performed by Lena Clark MD at [facility] ENDOSCOPY ??? PRO THORACOSCOPY SURG W/PLEURODESIS Left 03/06/2021 @THORACOSCOPY, SURG; W PLEURODESIS (WRVU 10.83) performed by Navin Khalil MD at [facility] MAIN OR ??? PRO THORACOSCOPY W RESECTION-PLICATION EMPHYSEMA LUNG UNILATERAL Left 03/06/2021 @THORACOSCOPY, SURG; W/RESC-PLICATION EMPHYSEMATOUS LUNG, UNILATERAL (WRVU 27) performed by Navin Khalil MD at [facility] MAIN OR ??? PRO THORACOSCOPY W/PARTIAL PULMONARY DECORTICATION Left 03/06/2021 @THORACOSCOPY, SURG; W PART. DECORTICATION (WRVU 18.78) performed by Navin Khalil MD at [facility] MAIN OR ??? PRO THORACOSCOPY W/PARTIAL PULMONARY DECORTICATION Left 03/09/2021 @THORACOSCOPY, SURG; W PART. DECORTICATION (WRVU 18.78) performed by Navin Khalil MD at [facility] MAIN OR ??? PRO THORACOTOMY, CTRL TRAUMA BLEED Left 03/09/2021 @THORACOTOMY WEXPL,CONTROL BLDNG (WRVU 25.28) performed by Navin Khalil MD at [facility] MAIN OR HOME MEDICATIONS: Medications Prior to [...] drug use Employment/Pertinent Social History: originally from [place], currently living in [place], [place], liveswith but she is currently down [facility], has friends who help out if needed, is independent, exercises daily by walking a few miles a day , has a PCP in [place], [place] Dr Vang REVIEW OF SYSTEMS: complete [...] healthcare consultant that requested your imaging first. Electronically signed by: Nehal Valdez MD, [facility] ([phone]), at 12/12/2021 5:36 AM XR Chest PA & Lateral (Generic) Result Date: [...] healthcare consultant that requested your imaging first. Electronically signed by: Matit Palacio MD, [facility] ([phone]), at 12/12/2021 8:[address] Head & [...] healthcare consultant that requested your imaging first. Electronically signed by: Nehal Valdez MD, [facility] ([phone]), at 12/12/2021 5:11 AM Request For 2nd Read CT Chest Result Date: 12/12/2021 EXAMINATION: REQUEST FOR 2ND READ CT CHEST CLINICAL HISTORY: Rib fractures after trauma, assess foradditional injury; Sending Institution [facility]; Date of exam [id number]; I believe a [...] healthcare consultant that requested your imaging first. Electronically signed by: Matti Palacio MD, [facility] ([phone]), at 12/12/2021 9:25 AM Film Library- Storage [...] healthcare consultant that requested your imaging first. Electronically signedby: Nehal Valdez MD, [facility] ([phone]), at 12/12/2021 2:[address] Lumbar Spine [...] healthcare consultant that requested your imaging first. Electronically signed by: Nehal Valdez MD, [facility] ([phone]), at 12/12/2021 5:29 AM ASSESSMENT/SUMMARY OF INJURIES: 71 y.o. male with PMH [...] - pericolace BID - dulcolax PRN LBM: SIX SIGMA BLACK BELT ENGINEER Admission UA: negative Tox Screen: presumed + [...] tolerating diet Lines/Tubes/Drains: PIV Consults (Please see portfolio consultant notes): PT/OT, cardiology Dispo: TBD,CRC working on dispo plan Status: Floor Incidental Findings: Superior segment LEFT lower lobe 2.0 cm nodule. New compared to CT from 10/12/2021; recommend close interval follow-up for assessment of stability. [x] Incidental Findings Form Completed, Tea, 12/12/2021 [place] 12/12/2021 Trauma pager [phone] Attending Addendum I have seen and examined [...] London Neri Level of Activation: Alert MR#: [id number] [ ] Scene Call or [x] Hospital Transfer : [id number] CC/MECHANISM OF INJURY: 71 y.o. Male s/p fall, on 12/12/21 HISTORY OF PRESENT ILLNESS: London Neri is a 71 y.o. male presents to [facility] s/p slip and fall on ice. Description [...] 2.78) performed by Navin Khalil MD at [facility] MAIN OR ??? PRO COLONOSCOPY, REMV LESN, SNARE N/A 01/26/2017 COLONOSCOPY, POLYPECTOMY, REMOVAL LESION BY SNARE (WRVU 4.67) performed by Lena Clark MD at [facility] ENDOSCOPY ??? PRO THORACOSCOPY SURG W/PLEURODESIS Left 03/06/2021 @THORACOSCOPY, SURG; W PLEURODESIS (WRVU 10.83) performed by Navin Khalil MD at [facility] MAIN OR ??? PRO THORACOSCOPY W RESECTION-PLICATION EMPHYSEMA LUNG UNILATERAL Left 03/06/2021 @THORACOSCOPY, SURG; W/RESC-PLICATION EMPHYSEMATOUS LUNG, UNILATERAL (WRVU 27) performed by Navin Khalil MD at [facility] MAIN OR ??? PRO THORACOSCOPY W/PARTIAL PULMONARY DECORTICATION Left 03/06/2021 @THORACOSCOPY, SURG; W PART. DECORTICATION (WRVU 18.78) performed by Navin Khalil MD at [facility] MAIN OR ??? PRO THORACOSCOPY W/PARTIAL PULMONARY DECORTICATION Left 03/09/2021 @THORACOSCOPY, SURG; W PART. DECORTICATION (WRVU 18.78) performed by Navin Khalil MD at [facility] MAIN OR ??? PRO THORACOTOMY, CTRL TRAUMA BLEED Left 03/09/2021 @THORACOTOMY WEXPL,CONTROL BLDNG (WRVU 25.28) performed by Navin Khalil MD at [facility] MAIN OR ALLERGIES: No Known Allergies MEDICATIONS: [...] Value Ref Range T&S only valid at [facility] Basic Metabolic Panel (non-fasting) Result Value [...] mg/L Lactate, whole blood, send to lab ([facility]) Result Value Ref Range Lactate WB 1.2 [...] Negative mcL Appearance UA Clear Clear Spec [place] UA >=1.030 (A) 1.005 - 1.030 Color [...] followingadditions and/or modifications. Received in transfer from [facility] as a Trauma Alert for multiple rib fractures. The patient is a 71yo man who takes coumadin for aortic and mitral valve replacements. He slipped and fell on the ice earlier today, sustaining L rib fractures 5-12. He arrived to [facility] in good condition. His primary survey was [...] healthcare consultant that requested your imaging first. Abdomen & [...] healthcare consultant that requested your imaging first. Electronically signed by: Nehal Valdez MD, [facility] ([phone]), at 12/12/2021 5:[address] Lumbar Spine Reconstruction Final Result No acute [...] healthcare consultant that requested your imaging first. Electronically signed by: Nehal Valdez MD, [facility] ([phone]), at 12/12/2021 5:29 AM XR Chest One View Final Result 1. Multiple [...] healthcare consultant that requested your imaging first. Electronically signed by: Nehal Valdez MD, [facility] ([phone]), at 12/12/2021 2:20 AM Procedures Assessment and Plan: 71 y.o. male [...] Registered Nurse Agency Referrals & Follow-up Care: [facility]. PHONE: [phone] FAX: [phone] Transportation: family or friend will provide Functional status prior to admission: Independent Home Environment: Others in the home: other (see comments) (Pt lives with his spouse during the summer months and alone during the winter months; Spouse currently in [place], planned to return end [facility]). Current Living Arrangements: home/apartment/condo (Owns his home [...] Type: *No Product type* / Secondary Insurance: [employer] [place] [place] [facility] Prescription Coverage: Yes Preferred Pharmacy: [id number] - [place], [place] - [address] [place], [place] [address] [facility] [address] [facility] [phone] This plan was formulated with input from patient and team. All are in agreement with plan. [place] Ortega car sander Pgr: [id number] * Plan of Care - Luzma Olivarez [...] Hutchinson MD - 12/15/2021 9:13 AM EST [facility] Thoracic Surgery Inpatient Consult Note HPI: [place] Neri is a 71 y.o. male with a PMH of high grade AV block s/p pacemaker, atrial fibrillation, mechanical mitral and aortic valve replacements (1998, on coumadin), COPD, and prior left thoracoscopic partial decortication with blebectomy and talc pleurodesis for recurrent spontaneous pneumothorax who was admitted to [facility] 12/12 after a mechanical fall from standing [...] 2.78) performed by Navin Khalil MD at [facility] MAIN OR ??? PRO COLONOSCOPY, REMV LESN, SNARE N/A 01/26/2017 COLONOSCOPY, POLYPECTOMY, REMOVAL LESION BY SNARE (WRVU 4.67) performed by Lena Clark MD at [facility] ENDOSCOPY ??? PRO THORACOSCOPY SURG W/PLEURODESIS Left 03/06/2021 @THORACOSCOPY, SURG; W PLEURODESIS (WRVU 10.83) performed by Navin Khalil MD at [facility] MAIN OR ??? PRO THORACOSCOPY W RESECTION-PLICATION EMPHYSEMA LUNG UNILATERAL Left 03/06/2021 @THORACOSCOPY, SURG; W/RESC-PLICATION EMPHYSEMATOUS LUNG, UNILATERAL (WRVU 27) performed by Navin Khalil MD at [facility] MAIN OR ??? PRO THORACOSCOPY W/PARTIAL PULMONARY DECORTICATION Left 03/06/2021 @THORACOSCOPY, SURG; W PART. DECORTICATION (WRVU 18.78) performed by Navin Khalil MD at [facility] MAIN OR ??? PRO THORACOSCOPY W/PARTIAL PULMONARY DECORTICATION Left 03/09/2021 @THORACOSCOPY, SURG; W PART. DECORTICATION (WRVU 18.78) performed by Navin Khalil MD at [facility] MAIN OR ??? PRO THORACOTOMY, CTRL TRAUMA BLEED Left 03/09/2021 @THORACOTOMY WEXPL,CONTROL BLDNG (WRVU 25.28) performed by Navin Khalil MD at [facility] MAIN OR MEDS: No current facility-administered medications [...] Procedure Component Value Units Date/Time COVID-19 PCR [[id number]] Collected: 12/14/21 1659 Lab Status: Final result [...] diagnosis of COVID-19 is performed using the [employer] m SARS-CoV-2 Assay as authorized by the FDA Emergency Use Authorization (EUA). This EUA assay is intended for In-vitro Diagnostic (IVD) use with respiratory specimens such as nasopharyngeal swabs collected from individuals during the acute phase of infection. This assay is performed based on the instructions for use provided by [employer] and additional guidance provided by CDC and FDA. Testing is performed in the [facility] Genomics [facility] Technology Laboratory within the Department of Pathology and Laboratory Medicine at [facility], certified under the Clinical Laboratory Improvement [...] fact sheets at the following FDA website: https://www.fda.gov/medical-devices/hntnhiblbra-myhmoww-3563-djrzj-19-tursvvufa- tdt-yxwzeppsoewipn-jmasetx-devices/jqfku-hewwzvcwcux-tuvp SARS-Cov-2 RNA Source PUMP ROOM OPERATOR Swab COVID-19 PCR [[id number]] Collected: 12/12/21 1400 Lab Status: Final result [...] using the Simplexa COVID-19 Direct Assay by [employer] as authorized by the FDA issued Emergency [...] Department of Pathology and Laboratory Medicine at [facility], certified under the Clinical Laboratory Improvement [...] fact sheets at the following FDA website: https://www.fda.gov/medical-devices/njxquqyjjgi-lbjkkng-5952-otqzg-26-wqfhwnaer- fcv-yewrrczipvxkts-azydgzg-devices/lkutg-clxhaypmpgn-ixzw SARS-CoV-2 Source PUMP ROOM OPERATOR Swab IMAGING/DIAGNOSTICS: CT Chest FINDINGS: Pulmonary parenchyma: [...] in thoracic surgery clinic ?? Please page [phone] at anytime with questions or concerns Jordan Hutchinson MD Thoracic Surgery Service Pager [phone] 12/15/2021 Associated attestation - Srini Aguilar MD [...] for recurrent spontaneous pneumothorax who presented to [facility] s/p slip and fall on ice. Reports [...] of 2.5-2.5 is achieved. Since arrival at [facility], has been consulted by Thoracic surgery for [...] well supported by this local community in [place] and his . Of note, [place] , [place], [place] and plans to return to [place] in late December. Shortness of breath: Denies [...] block, complete I44.2 ??? Current use of jail anticoagulation Z79.01 ??? Heart block I45.9 ??? Lung blebs J43.9 ??? Other air leak J93.82 ??? Postoperative hematoma [id number] ??? 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 Tension [...] evaluation needed DPOA: Activated (if yes explain): [place]: toribio Joshi POLST/COLST: No GERIATRIC SCREENING Deficits [...] [x] Untreated pain [] Constipation [] Perioperative PR [] Infection [] Higher risk medication use/polypharmacy [...] Meds:. Oxycodone 2.5 mg PO x 2 (0864, 1232) Physical Exam: Last value Range last [...] for recurrent spontaneous pneumothorax who presented to [facility] s/p slip and fall on ice found [...] in [place] and plans to return to [place] in the end of December. At this [...] shoes while OOB - Encourage work with PT/OT/SOIL TECHNICIAN Cognitive Status -Delirium Prevention and Management - [...] Rehabilitation Facility [] SNF [] LTC [] RADHA [x] Home with Visiting Nurse Services [] [...] options, expectations and follow-up plan. Geriatrics Pager: #[phone] (M-F, 8am-5 pm) Meghan Castrejon DNP General Internal Medicine [facility] * Consult Note - Yared Barclay - 12/14/2021 11:01 AM EST [facility] Thoracic Surgery Inpatient Consult Note HPI: London Neri is a 71 y.o. male with a PMH of high grade AV block s/p pacemaker, atrial fibrillation, mechanical mitral and aortic valve replacements (1998, on coumadin), COPD, and prior left thoracoscopic partial decortication with blebectomy and talc pleurodesis for recurrent spontaneous pneumothorax who was admitted to [facility] 12/12 after a mechanical fall from standing [...] 2.78) performed by Navin Khalil MD at [facility] MAIN OR ??? PRO COLONOSCOPY, REMV LESN, SNARE N/A 01/26/2017 COLONOSCOPY, POLYPECTOMY, REMOVAL LESION BY SNARE (WRVU 4.67) performed by Lena Clark MD at [facility] ENDOSCOPY ??? PRO THORACOSCOPY SURG W/PLEURODESIS Left 03/06/2021 @THORACOSCOPY, SURG; W PLEURODESIS (WRVU 10.83) performed by Navin Khalil MD at [facility] MAIN OR ??? PRO THORACOSCOPY W RESECTION-PLICATION EMPHYSEMA LUNG UNILATERAL Left 03/06/2021 @THORACOSCOPY, SURG; W/RESC-PLICATION EMPHYSEMATOUS LUNG, UNILATERAL (WRVU 27) performed by Navin Khalil MD at [facility] MAIN OR ??? PRO THORACOSCOPY W/PARTIAL PULMONARY DECORTICATION Left 03/06/2021 @THORACOSCOPY, SURG; W PART. DECORTICATION (WRVU 18.78) performed by Navin Khalil MD at [facility] MAIN OR ??? PRO THORACOSCOPY W/PARTIAL PULMONARY DECORTICATION Left 03/09/2021 @THORACOSCOPY, SURG; W PART. DECORTICATION (WRVU 18.78) performed by Navin Khalil MD at [facility] MAIN OR ??? PRO THORACOTOMY, CTRL TRAUMA BLEED Left 03/09/2021 @THORACOTOMY WEXPL,CONTROL BLDNG (WRVU 25.28) performed by Navin Khalil MD at [facility] MAIN OR MEDS: No current facility-administered medications [...] Procedure Component Value Units Date/Time COVID-19 PCR [[id number]] Collected: 12/12/21 1400 Lab Status: Final result [...] using the Simplexa COVID-19 Direct Assay by [employer] as authorized by the FDA issued Emergency [...] Department of Pathology and Laboratory Medicine at [facility], certified under the Clinical Laboratory Improvement [...] fact sheets at the following FDA website: https://www.fda.gov/medical-devices/zxqurufzgtr-taueiwc-0721-jqbkr-02-ntesixnuh- wdi-opcbplggbvjnfa-shpuvqe-devices/pfhvg-swrwkezgbzv-sgdm SARS-CoV-2 Source PUMP ROOM OPERATOR Swab IMAGING/DIAGNOSTICS: CT Chest FINDINGS: Pulmonary parenchyma: [...] in setting of anticoagulation ?? Please page [phone] at anytime with questions or concerns Yared Barclay MD Thoracic Surgery Service Pager [phone] 12/14/2021 Associated attestation - Srini Aguilar MD [...] during the winter months; Spouse currently in [place], planned to return [facility]). Current Living Arrangements: home/apartment/condo (Owns his [...] Type: *No Product type* / Secondary Insurance: [facility] Prescription Coverage: Yes Preferred Pharmacy: [id number] - [place], [place] - [address] [place] [address] [address] [facility] [phone] Last Physical Therapy Recommendation: home with home [...] are placed. Patient requests referral to: [facility]NA: [facility] PHONE: [phone] FAX: [phone] DME: [facility] Expected date of discharge: Referral routed to the Residential Program Coordinator for matching with agency/vendor and to provide [...] Team, bedside nurse, medical record, and Patient MI[employer]OS[employer]FT INFRASTRUCTURE CONSULTANT Introduced self/reviewed role; services accepted. Reason for Hospitalization: I slipped on ice and broke ribs Covid Vaccination Status: 1st, 2nd & booster Last COVID test: Lab Results Component Value Date [id number] Not Detected 12/12/2021 Past medical History: Past [...] during the winter months; Spouse currently in [place], planned to return [facility]). Current Living Arrangements: home/apartment/condo (Owns his home consisting of two suites. Pt lives in one suite and rents out the other). Accessibility Concerns:6 steps to enter residence. once inside, he reports single level living. Current DME: none Home Address confirmed as: [address] [place] [phone] Social & Family Supports: All names listed below confirmed with patient as current and correct Extended Emergency Contact Information Primary Emergency Contact: Meredith Villarreal [facility] Mobile Relation: Spouse Pt reports that his [...] Type: *No Product type* / Secondary Insurance: [facility] Prescription Coverage: Yes Preferred Pharmacy: [id number] - [place], [place] - [address] [facility] [facility] [id number] [place] Status: Patient is a : No Primary Care Provider: Linda Vang MD [phone] Patient/Caregiver Goals of Treatment: Address any collateral [...] throughout the winter months (spouse wintering in [facility] - planning to return end of [...] that he could prepare his meals. Plan: [employer] IN[employer] CONSULTANT will remain available to pt throughout his stay and assist with any resources that he mayidentify as beneficial A member of the Care Management team will continue to monitor progress, follow for continuity of care and assist with transition of care planning. NIRMALA Emmanuel Pager: [phone] * Plan of Care - Glenda Kaplan [...] sign off. Case was discussed with attending Mixed Signal Design Engineer, Dr. Marquez. Malorie Coon MD PGY4 Plasterer Maintenance 12/12/2021 documented in this encounter Plan of [...] 12/13/2021 6:07 AM EST RAPID COVID-19 PCR ([facility]) STAT 12/12/2021 2:00 PM EST HC PARTIAL [...] ? Electronically signed by: Marci Martínez MD, [facility] ([phone]), at 12/29/2021 10:15 AM Narrative 12/29/2021 10:15 [...] that requested your imaging first. Albina Quach BENDER MACHINE OPERATOR IMG DX ORDERABLES * Lavender Tube HOLD (12/16/2021 6:22 AM EST) Lavender Hold Sample in lab. [facility] Blood Venous Draw / Unknown 12/16/2021 6:22 AM EST 12/16/2021 6:56 AM EST Samina DELAROSA HEMATOLOGY ORDERABL ES [facility] [place] [address] * Comprehensive metabolic panel (non-fasting) (12/16/2021 6:22 [...] Hospital Phone Number [facility] [place] [address] * (ABNORMAL) APTT (12/16/2021 6:22 AM EST) [...] Hospital Phone Number [facility] [place] [address] * (ABNORMAL) Prothrombin Time (12/16/2021 6:22 AM [...] MD HEMATOLOGY ORDERABL ES Performing Organization Address City/[facility]/ZIP Co de Phone Number [facility] [place] [address] * Heparin (unfractionated) Level (12/15/2021 1:16 PM EST) UF Heparin 0.72 IU/mL [facility] Comment: Heparin (anti-Xa) levels should be [...] MD HEMATOLOGY ORDERABLE S Performing Organization Address [facility]/ZIP Co de Phone Number [facility] [place] [address] * Heparin (unfractionated) Level (12/15/2021 5:52 AM EST) UF Heparin 0.83 IU/mL [facility] Comment: Heparin (anti-Xa) levels should be [...] HEMATOLOGY ORDERABL ES [facility] [place] [address] * Differential, Automated (12/15/2021 5:52 AM EST) Neutrophil % 67.8 % [facility] Neutrophil Absolute 3.93 1.70 - 6.10 x10(3)/[facility] LAB[facility] Lymph % 17.3 % [facility] Lymphocytes Abs 1.0 0.9 - 3.2 x10(3)/[facility] Monocyte % 11.7 % [facility] Monocyte Abs 0.7 0.3 - 0.9 x10(3)/[facility] Eos % 2.1 % [facility] Eosinophils Abs 0.1 0.0 - 0.4 x10(3)/[facility] Basophil % 0.9 % [facility] Baso Absolute 0.0 0.0 - 0.1 x10(3)/[facility] Immature Gran % 0.20 % [facility] Comment: Immature granulocytes(IG's)percentage and absolute count will include metamyelocytes, myelocytes, and promyelocytes. Blood smears from CBCs yielding IG's will be scanned manually for concordance. If this scan disagrees with the automated IG or if promyelocytes are noted, a manual differential will be performed. Immature Gran Absolute 0.01 0.00 - 0.04 x10(3)/[facility] Blood 12/15/2021 5:52 AM EST 12/15/2021 6:16 AM EST Narrative Resulting Agency Comment Spec In Lab Samina DELAROSA HEMATOLOGY ORDERABL ES [facility] [place] [address] * (ABNORMAL) Hemogram (12/15/2021 5:52 AM EST) [...] RDW Standard Deviation 44.3 36.0 - 45.0 [facility] RDW coefficient of variation 13.7 11.4 - 13.8 % [facility] Mean Platelet Volume 10.2 7.6 - 12.9 [facility] NRBC% auto 0.0 % [facility] NRBC Absolute 0.000 0.000 - 0.000 x10(3)/mc L [facility] Blood 12/15/2021 5:52 AM EST 12/15/2021 6:16 AM EST Narrative Resulting Agency Comment Spec In Lab Samina DELAROSA HEMATOLOGY ORDERABL ES [facility] [place] [address] * (ABNORMAL) APTT (12/15/2021 5:52 AM EST) [...] MD HEMATOLOGY ORDERABL ES Performing Organization Address [facility] Co de Phone Number [facility] [place] [address] * (ABNORMAL) Prothrombin Time (12/15/2021 5:52 AM [...] MD HEMATOLOGY ORDERABL ES Performing Organization Address City/[facility]/ZIP Co de Phone Number [facility] [place] [address] * CT Chest wo Contrast (Generic) (12/14/2021 [...] ? Electronically signed by: Rayna Kiser MD, [facility] ([phone]), at 12/15/2021 9:21 AM Narrative 12/15/2021 9:21 AM EST EXAMINATION: CT [...] healthcare consultant that requested your imaging first. Electronically signed by: Rayna Kiser MD, [facility]([phone]), at 12/15/2021 9:21 AM Harjinder Light MD IMG CT ORDERABLES * [...] diagnosis of COVID-19 is performed using the [employer] m SARS-CoV-2 Assay as authorized by the FDA Emergency Use Authorization (EUA). This EUA assay is intended for In-vitro Diagnostic (IVD) use with respiratory specimens such as nasopharyngeal swabs collected from individuals during the acute phase of infection. This assay is performed based on the instructions for use provided by [employer] and additional guidance provided by CDC and FDA. Testing is performed in the Clinical Genomics and Advanced Technology Laboratory within the Department of Pathology and Laboratory Medicine at [facility], certified under the Clinical Laboratory Improvement [...] fact sheets at the following FDA website: https://www.fda.gov/medical-devices/gzeuyrftoze-hxqzggc-1704-bnvzh-07-iyleifpdo- use-a xmmdfqezphweh-ffyebop-khsonxs/aqtee-oacgnwhjody-lpjd SARS-CoV-2 RNA Source PUMP ROOM OPERATOR Swab [facility] Nasopharyngeal Swab 12/14/19 4:59 PM EST 12/14/2021 6:17 PM EST Comment:Symptoms->Surveillan ce Narrative Resulting Agency Comment Spec In Lab Harjinder Light MD MOLECULAR ORDERABLES [facility] [place] [address] * (ABNORMAL) Comprehensive metabolic panel (non-fasting) (12/14/2021 [...] MD CHEMISTRY ORDERABLES [facility] [place] [id number] * Heparin (unfractionated) Level (12/14/2021 4:37 AM EST) [facility] UF Heparin 0.61 IU/mL [facility] Comment: Heparin (anti-Xa) levels should be [...] HEMATOLOGY ORDERABL ES [facility] [place] [address] * (ABNORMAL) Differential, Automated (12/14/2021 4:37 AM EST) [facility] Neutrophil % 73.5 % [facility] Neutrophil Absolute 4.80 1.70 - 6.10 x10(3)/mc L [facility] Lymph % 12.7 % [facility] Lymphocytes Abs 0.8(L) 0.9 - 3.2 x10(3)/mc L [facility] Monocyte % 9.8 % [facility] Monocyte Abs 0.6 0.3 - 0.9 x10(3)/mc L [facility] Eos % 2.8 % [facility] Eosinophils Abs 0.2 0.0 - 0.4 x10(3)/mc L [facility] Basophil % 0.9 % [facility] Baso Absolute 0.1 0.0 - [...] HEMATOLOGY ORDERABL ES [facility] [place] [address] * (ABNORMAL) Hemogram (12/14/2021 4:37 AM EST) White Blood Cell 6.5 4.0 - 9.5 x10(3)/[facility] LABORATORY Red Blood Cell 4.10(L) 4.58 - [...] [facility] NRBC% auto 0.0 % [facility] NRBC Absolute 0.000 0.000 - 0.000 x10(3)/mc L [facility] Blood 12/14/2021 4:37 AM EST 12/14/2021 4:46 AM EST Narrative Resulting Agency Comment Spec In Lab Samina DELAROSA HEMATOLOGY ORDERABL ES Performing Organization Address [facility] Co de Phone Number [facility] [place] [address] * (ABNORMAL) APTT (12/14/2021 4:37 AM EST) [...] MD HEMATOLOGY ORDERABL ES Performing Organization Address [facility] Co de Phone Number [facility] [place] [address] * (ABNORMAL) Prothrombin Time (12/14/2021 4:37 AM [...] MD HEMATOLOGY ORDERABL ES Performing Organization Address [facility] de Phone Number [facility] [place] [address] * Heparin (unfractionated) Level (12/13/2021 10:40 PM EST) UF Heparin 0.40 IU/mL [facility] Comment: Heparin (anti-Xa) levels should be [...] MD HEMATOLOGY ORDERABL ES Performing Organization Address [facility] de Phone Number [facility] [place] [address] * Heparin (unfractionated) Level (12/13/2021 4:03 PM EST) UF Heparin <0.04 IU/mL [facility] Comment: Heparin (anti-Xa) levels should be [...] HEMATOLOGY ORDERABL ES [facility] [place] [address] * (ABNORMAL) Differential, Automated (12/13/2021 4:03 PM EST) Neutrophil % 74.7 % [facility] Neutrophil Absolute 6.24(H) 1.70 - 6.10 x10(3)/mc L [facility] Lymph % 12.1 % [facility] Lymphocytes Abs 1.0 0.9 - 3.2 x10(3)/mc L [facility] Monocyte % 10.0 % [facility] Monocyte Abs 0.8 0.3 - 0.9 x10(3)/mc L [facility] Eos % 1.9 % [facility] Eosinophils Abs 0.2 0.0 - 0.4 x10(3)/mc L [facility] Basophil % 0.7 % [facility] Baso Absolute 0.1 0.0 - [...] HEMATOLOGY ORDERABL ES [facility] [place] [address] * (ABNORMAL) Hemogram (12/13/2021 4:03 PM EST) White Blood Cell 8.4 4.0 - 9.5 x10(3)/[facility] LABORATORY Red Blood Cell 4.38(L) 4.58 - 5.54 x10(6)/[facility] LABORATORY Hemoglobin 13.2(L) 13.7 - 16.5 g/dL [facility] Hematocrit 38.8(L) 40.5 - 48.5 % [facility] Mean Cell Volume 88.6 82.9 - 93.1 [facility] Mean Cell Hemoglobin 30.1 27.5 - 32.1 pg [facility] Mean Cell Hemoglobin Concentration 34.0 32.0 - 35.7 g/dL [facility] Platelet 176 145 - 357 x10(3)/[facility] LABORATORY RDW Standard Deviation 43.9 36.0 - 45.0 [facility] RDW coefficient of variation 13.4 11.4 - 13.8 % [facility] Mean Platelet Volume 10.2 7.6 - 12.9 [facility] NRBC% auto 0.0 % [facility] NRBC Absolute 0.000 0.000 - 0.000 x10(3)/ L [facility] Blood 12/13/2021 4:03 PM EST 12/13/2021 4:19 PM EST Narrative Resulting Agency Comment Spec In Lab Samina Tea DELAROSA HEMATOLOGY ORDERABL ES [facility] [place] [address] * XR Chest PA & Lateral (Generic) [...] consultant that requested your imaging first. ? Narrative [...] healthcare consultant that requested your imaging first. aCrlos Manuel Dodson MD IMG DX ORDERABLES * (ABNORMAL) Differential, Automated (12/13/2021 6:07 AM EST) Neutrophil % 73.8 % [facility] Neutrophil Absolute 5.10 1.70 - 6.10 x10(3)/mc L [facility] Lymph % 11.3 % [facility] Lymphocytes Abs 0.8(L) 0.9 - 3.2 x10(3)/mc L [facility] Monocyte % 11.8 % [facility] Monocyte Abs 0.8 0.3 - 0.9 x10(3)/mc L [facility] Eos % 2.3 % [facility] Eosinophils Abs 0.2 0.0 - 0.4 x10(3)/mc L [facility] Basophil % 0.4 % [facility] Baso Absolute 0.0 0.0 - 0.1 x10(3)/[facility]ORY Immature Gran % 0.40 % [facility] Comment: Immature granulocytes(IG's)percentage and absolute count will include metamyelocytes, myelocytes, and promyelocytes. Blood smears from CBCs yielding IG's will be scanned manually for concordance. If this scan disagrees with the automated IG or if promyelocytes are noted, a manual differential will be performed. Immature Gran Absolute 0.03 0.00 - 0.04 x10(3)/[facility] Blood 12/13/2021 6:07 AM EST 12/13/2021 6:42 AM EST Narrative Resulting Agency Comment Spec In Lab Collin Verma MD HEMATOLOGY ORDERABLE S Performing Organization Address City/State/[facility] Co de Phone Number [facility] [place] [address] * (ABNORMAL) Hemogram (12/13/2021 6:07 AM EST) White Blood Cell 6.9 4.0 - 9.5 x10(3)/[facility] Red Blood Cell 4.02(L) 4.58 - 5.54 x10(6)/[facility] Hemoglobin 12.4(L) 13.7 - 16.5 g/dL [facility] Hematocrit 35.8(L) 40.5 - 48.5 % [facility] Mean Cell Volume 89.1 82.9 - 93.1 fL [facility] Mean Cell Hemoglobin 30.8 27.5 - 32.1 pg [facility] Mean Cell Hemoglobin Concentration 34.6 32.0 - 35.7 g/dL [facility] Platelet 155 145 - 357 x10(3)/[facility]ORY RDW Standard Deviation 44.3 36.0 - 45.0 fL [facility] RDW coefficient of variation 13.6 11.4 - 13.8 % [facility] Mean Platelet Volume 10.4 7.6 - 12.9 fL [facility] NRBC% auto 0.0 % [facility] NRBC Absolute 0.000 0.000 - 0.000 x10(3)/mc L [facility] Blood 12/13/2021 6:07 AM EST 12/13/2021 6:42 AM EST Narrative Resulting Agency Comment Spec In Lab Collin Verma MD HEMATOLOGY ORDERABLE S Performing Organization Address [facility] Co de Phone Number [facility] [place] [address] * (ABNORMAL) Prothrombin Time (12/13/2021 6:07 AM [...] MD HEMATOLOGY ORDERABL ES Performing Organization Address City/[facility]/ZIP Co de Phone Number [facility] [place] [address] * APTT (12/13/2021 6:07 AM EST) Partial [...] HEMATOLOGY ORDERABL ES [facility] [place] [address] * (ABNORMAL) Basic Metabolic Panel (non-fasting) (12/13/2021 [...] MD CHEMISTRY ORDERABLES [facility] [place] [address] * COVID-19 PCR (12/12/2021 2:00 PM EST) [...] using the [employer] COVID-19 Direct Assay by [employer] as authorized by the FDA issued Emergency [...] Department of Pathology and Laboratory Medicine at [facility], certified under the Clinical Laboratory Improvement [...] fact sheets at the following FDA website: https://www.fda.gov/medical-devices/xiyvnmnhrdh-swqokgo-3665-dyjsm-25-rwfhrmgdt- use-a hqbhmohpkilgz-lhjtqwc-rnejplc/rtfyw-wptzgfbpwhc-jucn SARS-CoV-2 Source PUMP ROOM OPERATOR Swab [facility] Nasopharyngeal Swab 12/12/19 2:00 PM EST 12/12/2021 2:27 PM EST Comment:Symptoms->Surveillan ce Narrative Resulting Agency Comment Spec In Lab Rayna High MD MICROBIOLOGY - GENER AL ORDERABLES Performing Organization Address [facility] Co de Phone Number [facility] [place] [address] * APTT (12/12/2021 12:33 PM EST) Partial [...] APRN HEMATOLOGY ORDERABL ES Performing Organization Address [facility] Co de Phone Number [facility] [place] [address] * (ABNORMAL) Prothrombin Time (12/12/2021 12:33 PM [...] HEMATOLOGY ORDERABL ES [facility] [place] [address] * XR Chest PA & Lateral (Generic) [...] consultant that requested your imaging first. ? Narrative [...] healthcare consultant that requested your imaging first. Electronically signed by: Matti Palacio MD, [facility]([phone]), at 12/12/2021 8:49 AM Rayna High MD IMG DX ORDERABLES * [...] ? Electronically signed by: Matti Palacio MD, [facility] ([phone]), at 12/13/2021 4:03 PM --------ORIGINAL REPORT -------- EXAMINATION: REQUEST FOR 2ND READ CT CHEST CLINICAL HISTORY: Rib fractures after trauma, assess for additional injury; Sending Institution [facility]; Date of exam 20211211; I believe a [...] ? Electronically signed by: Matti Palacio MD, [facility] ([phone]), at 12/12/2021 9:25 AM Impressions 12/12/2021 9:25 [...] ? Electronically signed by: Matti Palacio MD, [facility] ([phone]), at 12/12/2021 9:25 AM Narrative 12/12/2021 9:25 AM EST EXAMINATION: REQUEST FOR 2ND READ CT CHEST CLINICAL HISTORY: Rib fractures after trauma, assess for additional injury; Sending Institution [facility]; Date of exam 20211211; I believe a [...] after trauma, assess for additionalinjury; Sending Institution [facility]; Date of exam 20211211; I believe areinterpretation [...] healthcare consultant that requested your imaging first. Rayna High MD IMG OUTSIDE INTERPRE TATION ORDERABLES * (ABNORMAL) Rapid Drug Screen w/o Confirmation, Urine (12/12/2021 4:16 AM EST) Pathologist [facility] Barbiturates Screen, Urine None Detected None Detected [...] marijuana metabolites screen detects the THC metabolite (13-gqs-6-carboxy-delta 9-THC) at concentrations >20 ng/mL. A ? [...] Narrative Resulting Agency Comment Spec In Lab Carlo sManuel Dodson MD CHEMISTRY ORDERABLE S [facility] [place] [address] * (ABNORMAL) Urinalysis with reflex Culture (12/12/2021 [...] HOSPITAL LABORATORY Leukocytes, Urine Dipstick Negative Negative [facility] LAB[facility]ORY Appearance, Urine Dipstick Clear Clear [facility] Specific [place] Urine Automated >=1.030(A) 1.005 - 1.030 [facility] Color, Urine Dipstick Yellow Yellow [facility] Reflex to Culture No [facility] Urine 12/12/2021 4:16 AM EST 12/12/2021 4:21 AM EST Narrative Resulting Agency Comment Spec In Lab Rayna High MD URINE ORDERABLES Performing Organization Address City/State/[facility] Co de Phone Number [facility] [place] [address] * Rapid Drug Screen, Urine (NO Request) [...] High MD URINE ORDERABLES Performing Organization Address City/State/[facility] Co de Phone Number [facility] [place] [address] * CT Lumbar Spine Reconstruction (12/12/2021 4:03 [...] your imaging first. ? Electronically signed by: Nehal Valdez MD, [facility] ([phone]), at 12/12/2021 5:29 AM Narrative 12/12/2021 5:29 AM EST EXAMINATION: CT [...] healthcare consultant that requested your imaging first. Electronically signed by: Nehal Valdez MD, [facility]([phone]), at 12/12/2021 5:29 AM Carlos Manuel Dodson MD IMG CT ORDERABLES [...] your imaging first. ? Electronically signed by: Nehal Valdez MD, [facility] ([phone]), at 12/12/2021 5:36 AM Narrative 12/12/2021 5:36 AM EST EXAMINATION: CT [...] administration of contrast. Administered 93.0 ml of QTBKDWFHR294.00 mg/ml. COMPARISON: Correlation made with same day [...] healthcare consultant that requested your imaging first. Electronically signed by: Nehal Valdez MD, [facility]([phone]), at 12/12/2021 5:36 AM Carlos Maunel Dodson MD IM CT ORDERABLES * CT [...] your imaging first. ? Electronically signed by: Nehal Valdez MD, [facility] ([phone]), at 12/12/2021 5:11 AM Narrative 12/12/2021 5:11 AM EST EXAMINATION: CT [...] healthcare consultant that requested your imaging first. Electronically signed by: Nehal Valdez MD, [facility]([phone]), at 12/12/2021 5:11 AM Carlos Manuel Dodson MD IM CT ORDERABLES [...] your imaging first. ? Electronically signed by: Nehal Valdez MD, [facility] ([phone]), at 12/12/2021 2:20 AM Narrative 12/12/2021 2:20 AM EST EXAMINATION: XR [...] healthcare consultant that requested your imaging first. Electronically signed by: Nehal Valdez MD, [facility]([phone]), at 12/12/2021 2:20 AM Carlos Manuel Dodson MD IMG DX ORDERABLES * Gold Tube HOLD (12/12/2021 1:25 AM EST) Pathologist [facility] Gold Hold Sample in lab. [facility] Blood Venous Draw / Unknown 12/12/2021 1:25 AM EST 12/12/2021 1:37 AM EST Rayna High MD CHEMISTRY ORDERABLES [facility] [place] [address] * (ABNORMAL) Differential, Automated (12/12/2021 1:25 AM EST) [facility] Neutrophil % 80.9 % [facility] Neutrophil Absolute 7.19(H) 1.70 - 6.10 x10(3)/ L [facility] Lymph % 9.9 % [facility] Lymphocytes Abs 0.9 0.9 - 3.2 x10(3)/ L [facility] Monocyte % 8.0 % [facility] Monocyte Abs 0.7 0.3 - 0.9 x10(3)/ L [facility] Eos % 0.5 % [facility] Eosinophils Abs 0.0 0.0 - 0.4 x10(3)/ L [facility] Basophil % 0.5 % [facility] Baso Absolute 0.0 0.0 - [...] MD HEMATOLOGY ORDERABLE S Performing Organization Address City/[facility]/ZIP Co de Phone Number [facility] [place] [address] * (ABNORMAL) Hemogram (12/12/2021 1:25 AM EST) [...] RDW Standard Deviation 45.0 36.0 - 45.0 [facility] LABORATORY RDW coefficient of variation 13.7 11.4 - 13.8 % [facility] Mean Platelet Volume 10.2 7.6 - 12.9 [facility] LABORATORY NRBC% auto 0.0 % [facility] NRBC Absolute 0.000 0.000 - 0.000 x10(3)/mc L [facility] Blood 12/12/2021 1:25 AM EST 12/12/2021 1:34 AM EST Narrative Resulting Agency Comment Spec In Lab Rayna High MD HEMATOLOGY ORDERABLE S [facility] [place] [address] * Lactate, whole blood, send to lab ([facility]) (12/12/2021 1:25 AM EST) Lactate WB 1.2 0.5 - 2.2 mmol/L [facility] Blood Venous Draw / Unknown 12/12/2021 1:25 AM EST 12/12/2021 1:31 AM EST Narrative Resulting Agency Comment Spec In Lab Carlos Manuel Dodson MD CHEMISTRY ORDERABLE S Performing Organization Address City/[facility]/ZIP Co de Phone Number [facility] [place] [address] * Ethanol Level (12/12/2021 1:25 AM EST) Ethanol <100 <=99 mg/L [facility] Comment: Greater than 800 mg/L (0.08%) should be considered intoxicated. 3400 to 4500 mg/L (0.34 - 0.45%) is considered severe intoxication. Greater than 5500 mg/L (0.55%) is usually fatal. Blood 12/12/2021 1:25 AM EST 12/12/2021 1:34 AM EST Narrative Resulting Agency Comment Spec In Lab Rayna High MD CHEMISTRY ORDERABLES Performing Organization Address City/[facility]/ZIP Co de Phone Number [facility] [place] [address] * Basic Metabolic Panel (non-fasting) (12/12/2021 1:25 [...] MD CHEMISTRY ORDERABLES [facility] [place] [address] * Type and Screen Validity (12/12/2021 1:24 AM EST) [facility] T&S only valid at [facility] LABORATORY Comment:This Type and Screen result is only valid at the [facility] Blood 12/12/2021 1:24 AM EST 12/12/2021 1:30 AM EST Narrative Resulting Agency Comment Spec In Lab Carlos Manuel Dodson MD BLOOD BANK LAB ORDFlaca SAEZ [facility] [place] [address] * ABORH Recheck Status (12/12/2021 1:24 AM EST) ABORH Type Recheck Completed [facility] Blood 12/12/2021 1:24 AM EST 12/12/2021 1:30 AM EST Narrative Resulting Agency Comment Spec In Lab Carlos Manuel Dodson MD BLOOD BANK LAB ORDFlaca SAEZ Performing Organization Address [facility]/ZIP Co de Phone Number [facility] [place] [address] * Antibody screen (12/12/2021 1:24 AM EST) Ab Screen Interp Negative [facility] Expires at 2359 on: 12/15/2021 [facility] Blood 12/12/2021 1:24 AM EST 12/12/2021 1:30 AM EST Narrative Resulting Agency Comment Spec In Lab Carlos Manuel Dodson MD BLOOD BANK LAB ORDFlaca SAEZ Performing Organization Address City/[facility]/ZIP Co de Phone Number [facility] [place] [address] * ABO/Rh Typing (12/12/2021 1:24 AM EST) ABORH Type A Neg [facility] Blood 12/12/2021 1:24 AM EST 12/12/2021 1:30 AM EST Narrative Resulting Agency Comment Spec In Lab Carlos Manuel Dodson MD BLOOD BANK LAB ORDFlaca SAEZ Performing Organization Address City/[facility]/ZIP Co de Phone Number [facility] [place] [address] documented in this encounter Visit Diagnoses Diagnosis [...] Intravenous, ONCE PRN, 1 dose, Starting on [place] 12/12/21 at 0352, Until [place] 12/12/21 at 0403, Per Protocol, Warning Vesicant/Irritant Medication , Radiology Contrast, Routine Given 12/12/2021 4:03 AM EST 93 mLs ketorolac (Toradol) (30 mg/mL) injection 15 mg 15 mg, Intravenous, EVERY 8 HOURS SCHEDULED, 15 doses, First dose on [place] 12/12/21 at 0656, Last dose on [facility] 12/16/21 at 2200, Routine Given 12/13/2021 1:10 PM EST 15 mg Given 12/13/2021 5:31 AM EST 15 mg Given 12/12/2021 9:47 PM EST 15 mg lidocaine (Lidoderm) 5% patch 2 patch 2 patch, Transdermal, EVERY 24 HOURS, First dose on [place] 12/12/21 at 0800, Until Discontinued, Apply patch(es) [...] 8:47 AM EST 2 tablets sodium chloride ([place]) 0.65 % nasal spray 1 spray 1 [...] - Provider: Willi Anderson, DAVIN) sodium chloride ([place]) 0.65 % nasal spray 1 spray 1 [...] Routine documented in this encounter Care Teams Inpatient Auditor Relationship Specialty Start Date End Date Linda Vang MD [address] [place] [address] PCP - General Family Medicine 10/20/16 documented as of this encounter
--- OUTSIDE RECORDS SUMMARY | 2024-08-30 13:31 | XMS_ITS | Encounter Summary ---
[place] [address] Care Team Providers Care Educational Psychologist Name Role Phone Linda Mccray MD Primary Care Provider [phone] Encounter Details Date Type Department Care Team (Latest Contact Info) Description 10/12/2021 12:00 PM EST Laboratory Appointment Lab [address] [place] [phone] Recurrent spontaneous pneumothorax Social History Tobacco Use [...] EST) Creatinine 0.98 0.80 - 1.50 mg/dL [facility] Est Glomerular Filtration Rate 77 >=60 mL/min/1. 73 m?? [facility] Comment: This patient? s estimated [...] In Lab Navin Khalil MD CHEMISTRY ORDERABLES [facility] [place] [address] documented in this encounter Visit Diagnoses Diagnosis Recurrent spontaneous pneumothorax Other pneumothorax documented in this encounter Care Teams Educational Psychologist Relationship Specialty Start Date End Date Linda Mccray MD [address] [place] [address] PCP - General Family Medicine 10/20/16 documented as of this encounter
--- OUTSIDE RECORDS SUMMARY | 2024-08-30 13:31 | XMS_ITS | Encounter Summary ---
Author Organization [facility] Address [facility] [place] [address] Care Team Providers Care Geotechnical Engineering Technician Name Role Phone Linda Mccray MD Primary Care Provider [phone] Reason for Visit * Reason Comments Lower Urinary Tract Symptoms * Consultation (Routine) - Closed Specialty Diagnoses / Procedures Referred By Contac t Referred To Contact Urology Diagnoses Recurrent spontaneous pneumothorax Continuous leakage of urine Navin Khalil MD [facility] [place] [address] Referral ID Status Reason Start Date Expiration Date V isits Requested Visits Authorized [id number] Closed Consult, Test & Treat 03/30/2021 09/26/2021 1 1 Encounter Details Date Type Department Care Team (Late st Contact Info) Description 08/24/2021 8:00 AM EDT [place] [address] Demetrius Sy III, MD [facility] [place] [place] [address] Lower urinary tract symptoms (LUTS) Social History [...] Culture Greater than 100,000 cfu/ml Escherichia coli(A) [facility] Organism Escherichia coli(A) [facility] Clean Catch Urine 08/24/2021 9:00 AM [...] Sensitive Demetrius Sy III, MD MICROBIOLOGY - [facility] ORDERABLES [facility] [place] [place] [address] documented in this encounter Visit Diagnoses Diagnosis Lower urinary tract symptoms (LUTS) Other symptoms involving urinary system documented in this encounter Care Teams Geotechnical Engineering Technician Relationship Specialty Start Date End Date Linda Mccray MD [address] [place] [address] PCP - General Family Medicine 10/20/16 documented as of this encounter
--- OUTSIDE RECORDS SUMMARY | 2024-08-30 13:31 | XMS_ITS | Encounter Summary ---
[place] [address] Care Team Providers Care Template Inspector Name Role Phone Linda Mccray MD Primary Care Provider [phone] Reason for Referral * Diagnostic Test (Routine) - Closed Specialty Diagnoses / Procedures Referred By Contac t Referred To Contact Radiology Diagnoses Recurrent spontaneous pneumothorax Procedures CT Chest w Contrast Navin Khalil MD [facility] [place] [address] [facility] [place] [address] Referral ID Status Reason Start Date Expiration Date V isits Requested Visits Authorized [id number] Closed Specialty Service Requested 03/30/2021 09/29/2022 1 1 Reason for Visit * Diagnostic Test (Routine) - Closed Specialty Diagnoses / Procedures Referred By Contac t Referred To Contact Radiology Diagnoses Recurrent spontaneous pneumothorax Procedures CT Chest w Contrast Navin Khalil MD [facility] [place] [address] [facility] [place] [address] Referral ID Status Reason Start Date Expiration Date V isits Requested Visits Authorized [id number] Closed Specialty Service Requested 03/30/2021 09/29/2022 1 1 Encounter Details Date Type Department Care Team (Latest Contact Info) Description 10/12/2021 12:00 PM EST - 10/12/2021 11:59 PM EST Hospital [place] [address] Navin Khalil MD [facility] [place] [address] Recurrent spontaneous pneumothorax Discharge Disposition: Home Social [...] who have questions please contact the health veterinarian laboratory animal care that requested your imaging first. ? Electronically signed by: Matti Palacio MD, [facility] ([phone]), at 10/12/2021 2:35 PM Narrative 10/12/2021 2:35 [...] patients who have questions please contactthe health veterinarian laboratory animal care that requested your imaging first. Electronically signed by: Matti Palacio MD, [facility]([phone]), at 10/12/2021 2:35 PM Navin Khalil MD IMG CT ORDERABLES documented [...] mLs documented in this encounter Care Teams Template Inspector Relationship Specialty Start Date End Date Linda Mccray MD [address] [place] [address] PCP - General Family Medicine 10/20/16 documented as of this encounter
--- OUTSIDE RECORDS SUMMARY | 2024-08-30 13:31 | XMS_ITS | Encounter Summary ---
Author Organization [facility] [place] [address] Care Team Providers Care Senior Marketing Analyst Name Role Phone Linda Mccray MD Primary Care Provider [phone] Encounter Details Date Type Department Care Team ([facility] st Contact Info) Description 08/26/2021 [place] [phone] Leoncio Lan, RN Social History Tobacco Use [...] on filedocumented in this encounter Care Teams Senior Marketing Analyst Relationship Specialty Start Date End Date Linda Mccray MD [address] [place] [address] PCP - General Family Medicine 10/20/16 documented as of this encounter
--- OUTSIDE RECORDS SUMMARY | 2024-08-30 13:31 | XMS_ITS | Encounter Summary ---
[place] [address] Care Team Providers Care Digital Cartographic Technician Name Role Phone Linda Mccray MD Primary Care Provider [phone] Encounter Details Date Type Department Care Team (Late st Contact Info) Description 12/14/2021 Telephone Cardiology at [address] [phone] Rosmery Bush Social History Tobacco Use Types [...] AM EST Message sent to Edison at [facility] office asking for pt to be set up to see WASHINGTON Salas or Dr. Frost for persistent Afib. Notes and demos sent. Rosmery Bsuh EP Scheduling documented in this encounter Plan of Treatment Not on file documented as of this encounter Visit Diagnoses Not on filedocumented in this encounter Care Teams Digital Cartographic Technician Relationship Specialty Start Date End Date Linda Mccray MD [address] [place] [address] PCP - General Family Medicine 10/20/16 documented as of this encounter
--- OUTSIDE RECORDS SUMMARY | 2024-08-30 13:31 | XMS_ITS | Encounter Summary ---
Author Organization [facility] [place] [address] Care Team Providers Care Silk Screener Name Role Phone Linda Mccray MD Primary Care Provider Reason for Visit * Auth/Cert Specialty Diagnoses / Procedures Referred By Contac t Referred To Contact Diagnoses Rib fractures trauma / slip & fall on ice Procedures n/a Referral ID Status Reason Start Date Expiration Date Visits Re quested Visits Authorized [id number] 1 1 Encounter Details Date Type Department Care Team (Late st Contact Info) Description 12/13/2021 12:30 PM EST Office Visit Cardiology at [address] [phone] Katerina Reina RN AV block, complete Social [...] generator change done due to battery at [facility] by Dr Tarango 07/31/20. 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 V-escape 36 bpm Presenting: /MANAGER STATISTICS Atrial Lead: P wave: 0.8 mV fib wave Impedance: 418 ohms Threshold: 0.75 V @ 0.4 ms Ventricular Lead: R wave: 5.1 mV Impedance: 646 ohms Threshold: 1.25 V @ 0.4 ms Since February Heart rate histograms: Left shifted Pacing percentages: AP<0.1 %; MANAGER STATISTICS 99.6% Mode switch episodes: 99.0% - VHR: none Battery voltage: 3.21 V (PROGRAM SUPPORT CLERK:2.63 V) est 11.1 years remaining Wound assessment: [...] complete documented in this encounter Care Teams Silk Screener Relationship Specialty Start Date End Date Linda Mccray MD [address] [place] [address] PCP - General Family Medicine 10/20/16 documented as of this encounter
--- OUTSIDE RECORDS SUMMARY | 2024-08-30 13:32 | XMS_ITS | Encounter Summary ---
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 Role Phone Linda Mccray MD Primary Care Provider [phone] Reason for Visit * Reason Comments Hospital Transfer Shortness of Breath * Auth/Cert Specialty Diagnoses / Procedures Referred By Contac t Referred To Contact Diagnoses Recurrent spontaneous pneumothorax LARGE LEFT PNEUMOTHORAX Referral ID Status Reason Start Date Expiration Date Visits Re quested Visits Authorized [id number] 1 1 Encounter Details Date Type Department Care Team (Latest Contact Info) Description 03/05/2021 3:07 PM EDT - 03/13/2021 3:38 PM EDT Hospital Encounter 3 [place] [id number] Kenneth Newby MD [facility] [place] [address] Kendall Khalil MD [facility] [place] [address] Recurrent spontaneous pneumothorax (Primary Dx); Near syncope; [...] s/p pacemaker who presents as transfer from [facility] for surgical treatment of recurrent spontaneous left pneumothorax. ?? Reports sudden onset of SOB on Monday which he knew felt like his prior ptx and presented to [facility] for treatment. Hospitalized at [facility] from 03/03 until today when he was transferred to [facility] for further management of his recurrent PTX. Had L-sided CT placed at [facility], with continuous air-leak since admission. Pt reports this is his fourth ptx, first occurred 2 years ago after multiple broken ribs in curred by slip and fall on ice. The 2nd and 3rd ptx were non-traumatic and one was attributed to lifting heavy item. Since CT placed at [facility] SOB has improved. ?? Coumadin last taken morning of 03/04/21. Normal coumadin dose 10mg qd. He last ate at noon today. ?? On assessment in the ED: He is HDS, on RA and in no distress. He endorses no complaints. Hospital Course: London Neri was admitted to [facility] on 03/05/2021 viathe ED. He was [...] Monday03/15/21. Primary Care Doctor: Linda Mccray MD [phone] [facility] Anticoagulation Clinic: [phone] Warfarin (Coumadin??) should be taken at the same time every day, usually at 5pm. Your next INR should be scheduled on: Monday AM March 15, 2021 by Provider listed below Provider/Team responsible for your outpatient Coumadin?? (warfarin) management: Primary Care Physician/Anticoagulation Clinic at [facility]. ??? If you have not received [...] a nurse in the Thoracic Clinic at [phone]. After hours or on weekends or holidays please call: [phone] and ask to speak to the Thoracic [...] the Thoracic Clinic or the Thoracic Surgeon manager environmental after hours. Please take over the counter [...] Where can you learn more? Visit our MOgene information library at [email or web address] You can also view health information on [employer], your personal patient account. Log in or sign uptoday. Enter U010 in the search box to learn more about Learning About Indwelling Urinary Catheter Care to Prevent Infection. Current as of: April 20, 2020?Content Version: 12.8 ?? iApp4Me. Care instructions adapted under license by [facility]. If you have questions about a medical condition or this instruction, always ask your healthcare professional. [employer] disclaims any warranty or liability for your [...] Where can you learn more? Visit our MOgene information library at [email or web address] You can also view health information on [employer], your personal patient account. Log in or sign uptoday. Enter X535 in the search box to learn more about Learning About How to Care for a Person's Indwelling Urinary Catheter. Current as of: May 08, 2020?Content Version: 12.8 ?? iApp4Me. Care instructions adapted under license by [facility]. If you have questions about a medical condition or this instruction, always ask your healthcare professional. [employer]App[employer]Me disclaims any warranty or liability for your use of this information. Future Appointments and Orders Future Orders Complete By Expires XR Chest PA & Lateral (Generic) [90121 94491 Custom] 03/27/2021 (Approximate) 03/13/2022 Process Instructions: Scheduling Instructions: Questions: Where will study be performed?: [facility] Radiology Portable exam?: Reason for exam and clinical history: s/p LVATS partial decort, blebectomy, talc pleurodesis c/b hemothorax s/p re-op LVATS washout Clinical information / sunshine questions: PTX, effusion, lung appostion, comparison Stat read required?: Date of injury if applicable: Requested Time: Walker standard [EQ135 Custom] As directed Process Instructions: Scheduling Instructions: Comments: London Neri [address] [facility] [id number] (home) [phone] (mobile) Diagnosis: deconditioning with Unsteady gait Significant weakness, ataxia or gait abnormality Patient's: Hgt: Ht Readings from Last 1 Encounters: 03/05/21 : 185.4 cm (6' 1) ? Wgt: Wt Readings from Last 1 Encounters: 03/13/21 : 81.6 kg (180 lb) VENDOR: [facility] Ordering: Front wheel walker Deliver to [facility] room #: 327A Questions: Vendor Name/Contact information: [facility] Provider Contact Information: Primary Care Provider: Linda Mccray MD [phone] Discharge References/Attachments: Discharge References/Attachments None For questions regarding this document or issues relating to this hospitalization on the Thoracic Surgery Service, please contact Dr. Khalil's office at . Signed: Jeff lAmendarez MD 03/13/2021 CC: PCP: Linda Mccray MD Referring: Marii Kenyon Md [address] [place] [address] documented in this encounter Discharge Instructions * [...] Where can you learn more? Visit our MOgene information library at [email or web address] You can also view health information on [employer], your personal patient account. Log in or sign uptoday. Enter U010 in the search box to learn more about Learning About Indwelling Urinary Catheter Care to Prevent Infection. Current as of: April 20, 2020?Content Version: 12.8 ?? iApp4Me. Care instructions adapted under license by [facility]. If you have questions about a medical condition or this instruction, always ask your healthcare professional. [employer] disclaims any warranty or liability for your [...] Where can you learn more? Visit our MOgene information library at [email or web address] You can also view health information on [employer], your personal patient account. Log in or sign uptoday. Enter X535 in the search box to learn more about Learning About How to Care for a Person's Indwelling Urinary Catheter. Current as of: May 08, 2020?Content Version: 12.8 ?? iApp4Me. Care instructions adapted under license by [facility]. If you have questions about a medical condition or this instruction, always ask your healthcare professional. [employer]App[employer]Me disclaims any warranty or liability for your [...] Monday03/15/21. Primary Care Doctor: Linda Mccray MD [phone] [facility] Anticoagulation Clinic: [phone] Warfarin (Coumadin??) should be taken at the same time every day, usually at 5pm. Your next INR should be scheduled on: Monday AM March 15, 2021 by Provider listed below Provider/Team responsible for your outpatient Coumadin?? (warfarin) management: Primary Care Physician/Anticoagulation Clinic at [facility]. ??? If you have not received [...] a nurse in the Thoracic Clinic at [phone]. After hours or on weekends or holidays please call: [phone] and ask to speak to the Thoracic [...] the Thoracic Clinic or the Thoracic Surgeon manager environmental after hours. Please take over the counter [...] approximately 1830 that they were unable to pick up driver patient's Lovenox from pharmacy after patient was discharged, and that the pharmacy is now closed. With assistance from Dr. Jeff Almendarez, was able to arrange for patient to present at ED in [facility] to receive his 80 mg dose of Lovenox this evening and pick up driver his regular prescription on Monday morning in [...] Neri Patient : 1950 Patient [facility] Attending Surgeon: KENNETH NEWBY DAVID J ID: [...] to Hosp-Admission (Current) from 03/05/[address] [facility] Office Visit from 08/10/2020 in Cardiology at [facility] Weight 81.7 kg (180 lb 3.2 oz) [...] May MD 03/12/2021 Thoracic Surgery Service Pager [phone] * Mayra Scales, [facility] - 03/12/2021 11:55 AM EDT Physical Therapy Note Treatment Number PT: 2 Patient profile: London Neri??is a 70 y.o.??male admittted 03/05/21??with PMHx significant for recurrent spontaneous pneumothorax, CHF, mitral and aortic mechanical valves (both placed 1998, on coumadin), s/p pacemaker who presents as transfer from [facility] for surgical treatment of recurrent spontaneous left pneumothorax. ?? Reports sudden onset of SOB on Monday which he knew felt like his prior ptx and presented to [facility] for treatment. ??Hospitalized at [facility] from 03/03 until today when he was transferred to [facility] for further management of his recurrent PTX. Had L-sided CT placed at [facility], with continuous air-leak sinceadmission. Pt reports this is his fourth ptx, first occurred 2 years ago after multiple broken ribsincurred by slip and fall on ice. The 2nd and 3rd ptx were non-traumatic and one was attributed to lifting heavy item. Since CT placed at [facility] SOB has improved. S/p L VATS [...] (TE-F x 2) MAYRA SCALES PTA Pager: [phone] Physical Therapy Inpatient Rehabilitation Department * Avril [...] Neri Patient : 1950 Patient Patient Location: [address] [place] [address] Attending Surgeon: KENNETH NEWBY DAVID J ID: [...] to Hosp-Admission (Current) from 03/05/[address] [facility] Office Visit from 08/10/2020 in Cardiology at [facility] Weight 59.6 kg (131 lb 4.8 oz) [...] QTC Calculated (Bezet) 526 ms Calculated P [place] 43 degrees Calculated R [place] -63 degrees Calculated T [place] 62 degrees INTERPRETATION Atrial-sensed ventricular-paced rhythm Underlying normal sinus rhythm Abnormal ECG When compared with ECG of 05-MAR-2021 15:30, Vent. rate has increased BY 19 BPM Confirmed by Devonte Newsome ([id number]) on 03/08/2021 4:10:26 PM ABO/Rh Typing Result Value Ref Range ABORh Type A Neg Antibody screen Result Value Ref Range Ab Screen Interp Negative Expires at 2359 on: 03/11/2021 ABORH Recheck Status Result Value Ref Range ABORH Type Recheck Completed Type and Screen Validity Result Value Ref Range T&S only valid at [facility] Hemogram Result Value Ref Range WBC [...] Dispo: full code, floor status Malorie Mccauley, GREEN PLUMBER 03/11/2021 Thoracic Surgery Service Pager [phone] * Lexie Cordova - 03/10/2021 9:57 PM [...] s/p pacemaker who presents as transfer from [facility] for surgical treatment of recurrent spontaneous left pneumothorax. ?? Reports sudden onset of SOB on Monday which he knew felt like his prior ptx and presented to [facility] for treatment. Hospitalized at [facility] from 03/03 until today when he was transferred to [facility] for further management of his recurrent PTX. Had L-sided CT placed at [facility], with continuous air-leak since admission. Pt reports this is his fourth ptx, first occurred 2 years ago after multiple broken ribs in curred by slip and fall on ice. The 2nd and 3rd ptx were non-traumatic and one was attributed to lifting heavy item. Since CT placed at [facility] SOB has improved. S/p L VATS [...] 2.78) performed by Kendall Khalil MD at [facility] MAIN OR ??? PRO COLONOSCOPY, REMV LESN, SNARE N/A 01/26/2017 COLONOSCOPY, POLYPECTOMY, REMOVAL LESION BY SNARE (WRVU 4.67) performed by Lena Clark MD at [facility] ENDOSCOPY ??? PRO THORACOSCOPY SURG PART PULM DECORT Left 03/06/2021 @THORACOSCOPY, SURG; W PART. DECORTICATION (WRVU 18.78) performed by Kendall Khalil MD at [facility] MAIN OR ??? PRO THORACOSCOPY SURG W/PLEURODESIS Left 03/06/2021 @THORACOSCOPY, SURG; W PLEURODESIS (WRVU 10.83) performed by Kendall Khalil MD at [facility] MAIN OR ??? 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 B ankles and knees 4-4+/5. Sensory: denies [...] outlinedin this evaluation. Time IN / OUT: 1235-4503 Total Minutes, Physical Therapy: 25 (Mod EV) RUMA BONE, PT Pager: [phone] Physical Therapy Inpatient Rehabilitation Department * Joseph [...] 2.78) performed by Kendall Khalil MD at [facility] MAIN OR ??? PRO COLONOSCOPY, REMV LESN, SNARE N/A 01/26/2017 COLONOSCOPY, POLYPECTOMY, REMOVAL LESION BY SNARE (WRVU 4.67) performed by Lena Clark MD at [facility] ENDOSCOPY ??? PRO THORACOSCOPY SURG PART PULM DECORT Left 03/06/2021 @THORACOSCOPY, SURG; W PART. DECORTICATION (WRVU 18.78) performed by Kendall Khalil MD at [facility] MAIN OR ??? PRO THORACOSCOPY SURG W/PLEURODESIS Left 03/06/2021 @THORACOSCOPY, SURG; W PLEURODESIS (WRVU 10.83) performed by Kendall Khalil MD at [facility] MAIN OR ??? PRO THORACOSCOPY W RESECTION-PLICATION EMPHYSEMA LUNG UNILATERAL Left 03/06/2021 @THORACOSCOPY, SURG; W/RESC-PLICATION EMPHYSEMATOUS LUNG, UNILATERAL (WRVU 27) performed by Kendall Khalil MD at [facility] MAIN OR Social History: Patient lives [...] and measurable assessment of functional outcome. Pager: [phone] Joseph Vidales OT 03/10/2021 Occupational Therapy Rehabilitation [...] Neri Patient : 1950 Patient Patient Location: [address] [place] [address] Attending Surgeon: KENNETH NEWBY DAVID J ID: [...] to Hosp-Admission (Current) from 03/05/[address] [facility] Office Visit from 08/10/2020 in Cardiology at [facility] Weight 82 kg (180 lb 12.8 oz) [...] QTC Calculated (Bezet) 526 ms Calculated P [place] 43 degrees Calculated R [place] -63 degrees Calculated T [place] 62 degrees INTERPRETATION Atrial-sensed ventricular-paced rhythm Underlying normal sinus rhythm Abnormal ECG When compared with ECG of 05-MAR-2021 15:30, Vent. rate has increased BY 19 BPM Confirmed by Deovnte Newsome ([id number]) on 03/08/2021 4:10:26 PM ABO/Rh Typing Result Value Ref Range ABORh Type A Neg Antibody screen Result Value Ref Range Ab Screen Interp Negative Expires at 2359 on: 03/11/2021 ABORH Recheck Status Result Value Ref Range ABORH Type Recheck Completed Type and Screen Validity Result Value Ref Range T&S only valid at [facility] Hemogram Result Value Ref Range WBC [...] May MD 03/10/2021 Thoracic Surgery Service Pager [phone] * Myrna Ludwig APRN - 03/10/2021 8:35 AM EDT Cardiac Device Remote Monitoring Report Summary OQVestir 03/10/21 Device: Pacemaker Model: Maral Battery: 3.10 v, estimated longevity ~10.5 years Pacing percentage: AP 0.2%, UNDER CUTTING MACHINE OPERATOR 99.9% Current EGM: ,AR/UNDER CUTTING MACHINE OPERATOR. Atrial rate 240 bpm, ventricular rate 60 bpm. Events: AT/AF >=6 hr for 1 day. Patient activity less than 1 hr/day for 1 week Atrial high rate events: 1 AT/AF since 03/09/21 @ 10:55am, episode in progress. AT/AF [place] 10.8%. Rate histogram: Time in AT/AF = [...] in-clinic and remote Myrna Ludwig APRN Pager [phone] * Ross Mohan RN - 03/09/2021 7:42 [...] factors per assessment: [current deficits]: Generalized weakness, [id number] of OR, pain, dizziness, medications, hospitalization and [...] was informed to hold. Page out to [id number] to clarify, Call returned to clarify the ok to give the Heparin and ASA. Given per MD order. * Pardeep Lima PA - 03/09/2021 2:48 PM EDT [facility] Department of Thoracic Surgery Inpatient Post Op Check Note Patient Name: London Neri Patient : 1950 Patient Patient Location: [address] [place] [address] Attending Surgeon: KENNETH NEWBY DAVID J ID: [...] to Hosp-Admission (Current) from 03/05/[address] [facility] Office Visit from 08/10/2020 in Cardiology at [facility] Weight 79.7 kg (175 lb 11.2 oz) [...] QTC Calculated (Bezet) 526 ms Calculated P [place] 43 degrees Calculated R [place] -63 degrees Calculated T [place] 62 degrees INTERPRETATION Atrial-sensed ventricular-paced rhythm Underlying normal sinus rhythm Abnormal ECG When compared with ECG of 05-MAR-2021 15:30, Vent. rate has increased BY 19 BPM Confirmed by Devonte Newsome ([id number]) on 03/08/2021 4:10:26 PM ABO/Rh Typing Result Value Ref Range ABORh Type A Neg Antibody screen Result Value Ref Range Ab Screen Interp Negative Expires at 2359 on: 03/11/2021 ABORH Recheck Status Result Value Ref Range ABORH Type Recheck Completed Type and Screen Validity Result Value Ref Range T&S only valid at [facility] Hemogram Result Value Ref Range WBC [...] 0.1 x10(3)/mcL Immature Gran % 1.10 % Mea Gran Abs 0.16 (H) 0.00 - 0.04 [...] [place] Torres 03/09/2021 Thoracic Surgery Service Pager [phone] * Ross Mohan RN - 03/09/2021 2:20 [...] Department of Thoracic Surgery Inpatient Progress Note [facility] [address] [facility] [address] [place], [place] [address] FAX: Patient Name: London Neri Patient : 1950 Patient Patient Location: [address] [place] [address] Thoracic surgery attending: Dr. Khalil HPI: London Neri is a 70 y.o. male with PMHx significant for recurrent spontaneous pneumothorax, chronic CHF, mitral and aortic mechanical valves (both placed 1998, on coumadin), s/p pacemaker who presents as transfer from [facility] for surgical treatment of recurrent spontaneous left pneumothorax. Reports sudden onset of SOB on Monday which he knew felt like his prior ptx and presented to [facility] for treatment. Hospitalized at [facility] from 03/03 until today when he was transferred to [facility] for further management of his recurrent PTX. Had L-sided CT placed at [facility], with continuous air-leak since admission. Pt reports this is his fourth ptx, first occurred 2 years ago after multiple broken ribs in [place] by slip and fall on ice. The 2nd and 3rd ptx were non-traumatic and one was attributed to lifting heavy item. Since CT placed at [facility] SOB has improved. Coumadin last taken [...] to Hosp-Admission (Current) from 03/05/[address] [facility] Office Visit from 08/10/2020 in Cardiology at [facility] Weight 79.7 kg (175 lb 11.2 oz) [...] QTC Calculated (Bezet) 526 ms Calculated P [place] 43 degrees Calculated R [place] -63 degrees Calculated T [place] 62 degrees INTERPRETATION Atrial-sensed ventricular-paced rhythm Underlying normal sinus rhythm Abnormal ECG When compared with ECG of 05-MAR-2021 15:30, Vent. rate has increased BY 19 BPM Confirmed by Devonte Newsome ([id number]) on 03/08/2021 4:10:26 PM ABO/Rh Typing Result Value Ref Range ABORh Type A Neg Antibody screen Result Value Ref Range Ab Screen Interp Negative Expires at 2409 on: 03/11/2021 ABORH Recheck Status Result Value Ref Range ABORH Type Recheck Completed Type and Screen Validity Result Value Ref Range T&S only valid at [facility] Hemogram Result Value Ref Range WBC [...] May MD 03/09/2021 Thoracic Surgery Service Pager [phone] * Margarita Becerra, PT - 03/09/2021 8:01 AM EDT Physical Therapy 03/09/21 0801 Physical Therapy Time and Intention Document Type contact Mode of Treatment physical therapy Total Minutes, Physical Therapy 0 Comment, Session Not Performed Pt being taken to the OR urgently for exploratory thoracotomy. PT tofollow post-op per MD orders. MARGARITA BECERRA, PT Pager # [phone] In-Pt Rehab Medicine * Freya Cedeño MSW - 03/08/2021 2:57 PM EDT PEARL HAND received call from pt's . She reports that the pt goes by Gonzalo. She was able to provide thefollowing information: - Pt lives at address on file; several steps to enter the apartment and then single floor living. 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 PEARL HAND informed her that MD will also call by the end of the day. reports that her cell phone is not working and she is available at the [facility] number. Received second call around 3pm: - stating that she will be coming to [facility] and is asking about local hotels. PEARL HAND informed of [facility] ([facility] currently closed). interested in staying at [facility] [place]. PEARL HAND phone call to [facility] ([phone]), they report that they have availability. PEARL HAND phone call to , provided her with the phone number; [facility] will complete intake with over the phone prior to her arrival. * Joseph Vidales, OT - 03/08/2021 2:11 PM EDT OCCUPATIONAL THERAPY 03/08/21 3859 OT Time and Intention Document Type contact [...] SpO2 92 % Joseph Vidales, OT Pager: [phone] * Margarita Becerra PT - 03/08/2021 2:00 [...] deferred until tomorrow MARGARITA BECERRA, PT Pager [phone] In-Pt Rehab Medicine * Ashanti May MD [...] 03/08/2021 10:59 AM EDT London Pisano Daron [id number] 1950 Additional Information: patient on bedside commode, staff with patient at time of fall but not ableto catch patient. Patient reported nausea and dizziness, then patient lunged forward, fell onto floor, hit head. Patient endorses LOC/passing out while on bedside commode, before hitting floor. Date of Fall: 03/08/2021 Time of Fall: 1130 Unit/Location: [facility] Room Number: 326B Provide a brief factual [...] small localized frontal head swelling and cut. REFORESTATION WORKER called?: No Suspected intentional fall?: No Was [...] Department of Thoracic Surgery Inpatient Progress Note [facility] [address] [place], [place] [address] FAX: Patient Name: London Neri Patient : 1950 Patient Patient Location: [address] [place] [address] Thoracic surgery attending: Dr. Khalil HPI: Lodnon Neri is a 70 y.o. male with PMHx significant for recurrent spontaneous pneumothorax, chronic CHF, mitral and aortic mechanical valves (both placed 1998, on coumadin), s/p pacemaker who presents as transfer from [facility] for surgical treatment of recurrent spontaneous left pneumothorax. Reports sudden onset of SOB on Monday which he knew felt like his prior ptx and presented to [facility] for treatment. Hospitalized at [facility] from 03/03 until today when he was transferred to [facility] for further management of his recurrent PTX. Had L-sided CT placed at [facility], with continuous air-leak since admission. Pt reports this is his fourth ptx, first occurred 2 years ago after multiple broken ribs in curred by slip and fall on ice. The 2nd and 3rd ptx were non-traumatic and one was attributed to lifting heavy item. Since CT placed at [facility] SOB has improved. Coumadin last taken [...] to Hosp-Admission (Current) from 03/05/[address] [facility] Office Visit from 08/10/2020 in Cardiology at [facility] Weight 79.7 kg (175 lb 11.2 oz) [...] QTC Calculated (Bezet) 524 ms Calculated P [place] 30 degrees Calculated R [place] -103 degrees Calculated T [place] 62 degrees INTERPRETATION Atrial-sensed ventricular-paced rhythm Abnormal ECG When compared with ECG of 11-SEP-2007 16:25, Ventricular-paced rhythm is now present Confirmed by MD Emelina, Jordana Blanca ([id number]) on 03/07/2021 3:16:02 PM COVID-19 PCR Specimen: Nasopharyngeal Swab Symptoms->Surveillance Result Value Ref Range Rapid SARS-CoV-2 RNA Not Detected Not Detected SARS-CoV-2 Source SAP ANALYST Swab Prothrombin Time Result Value Ref Range [...] T&S only valid at [facility] Prothrombin Time Result Value Ref Range [...] WASHINGTON Chaudhry 03/08/2021 Thoracic Surgery Service Pager [phone] * Avril East RN - 03/07/2021 5:32 [...] maintained, clear yellow urine throughout shift. 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 OOB to walk aroundunit [...] RNA Not Detected Not Detected SARS-CoV-2 Source SAP ANALYST Swab Prothrombin Time Result Value Ref Range [...] Ref Range T&S only valid at [facility] Hosp Prothrombin Time Result Value Ref Range [...] PM EDT Cardiac Device Interrogation London Neri [id number] 03/06/2021 History: Mr. Neri is a 70 yo male with a history of HTN, mechanical aortic and mitral valve [id number], on chronic Coumadin with INR goal 2.5-3.5, [...] chest tube placement, who presented to [facility] on 03/05/2021s transfer from [facility] for surgical treatment of recurrent spontaneous left pneumothorax. He underwent Left VATS partial decortication, blebectomy and talc pleurodesis on 03/06/2021. We were asked to interrogate device following intraoperative magnet application and ventricular tachycardia reported on telemetry frantz-procedurally. 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 Khalil HPI: London Neri is a 70 y.o. male with PMHx significant for recurrent spontaneous pneumothorax, CHF,mitral and aortic mechanical valves (both placed 1998, on coumadin), s/p pacemaker who presents as transfer from [facility] for surgical treatment of recurrent spontaneous left pneumothorax. Reports sudden onset of SOB on Monday which he knew felt like his prior ptx and presented to [facility] for treatment. Hospitalized at [facility] from 03/03 until today when he was transferred to [facility] for further management of his recurrent PTX. Had L-sided CT placed at [facility], with continuous air-leak since admission. Pt reports this is his fourth ptx, first occurred 2 years ago after multiple broken ribs in curred by slip and fall on ice. The 2nd and 3rd ptx were non-traumatic and one was attributed to lifting heavy item. Since CT placed at [facility] SOB has improved. Coumadin last taken [...] to Hosp-Admission (Current) from 03/05/[address] [facility] Office Visit from 08/10/2020 in Cardiology at [facility] Weight 76.4 kg (168 lb 6.4 oz) [...] QTC Calculated (Bezet) 524 ms Calculated P [place] 30 degrees Calculated R [place] -103 degrees Calculated T [place] 62 degrees INTERPRETATION Atrial-sensed ventricular-paced rhythm Abnormal ECG When compared with ECG of 11-SEP-2007 16:25, Electronic ventricular pacemaker has replaced Sinus rhythm COVID-19 PCR Specimen: Nasopharyngeal Swab Symptoms->Surveillance Result Value Ref Range Rapid SARS-CoV-2 RNA Not Detected Not Detected SARS-CoV-2 Source SAP ANALYST Swab Prothrombin Time Result Value Ref Range [...] Ref Range T&S only valid at [facility] Hosp Prothrombin Time Result Value Ref Range [...] WASHINGTON Lea 03/07/2021 Thoracic Surgery Service Pager [phone] * Rubén Bone PA - 03/06/2021 8:29 AM EDT Images from the original note were not included. [facility] Department of Thoracic Surgery Inpatient Progress Note [facility] [address] [place] [address] FAX: Patient Name: London Neri Patient : 1950 Patient Patient Location: [address] [place] [address] Thoracic surgery attending: Dr. Khalil HPI: London Neri is a 70 y.o. male with PMHx significant for recurrent spontaneous pneumothorax, CHF,mitral and aortic mechanical valves (both placed 1998, on coumadin), s/p pacemaker who presents as transfer from [facility] for surgical treatment of recurrent spontaneous left pneumothorax. Reports sudden onset of SOB on Monday which he knew felt like his prior ptx and presented to [facility] for treatment. Hospitalized at [facility] from 03/03 until today when he was transferred to [facility] for further management of his recurrent PTX. Had L-sided CT placed at [facility], with continuous air-leak since admission. Pt reports this is his fourth ptx, first occurred 2 years ago after multiple broken ribs in curred by slip and fall on ice. The 2nd and 3rd ptx were non-traumatic and one was attributed to lifting heavy item. Since CT placed at [facility] SOB has improved. Coumadin last taken [...] to Hosp-Admission (Current) from 03/05/[address] [facility] Office Visit from 08/10/2020 in Cardiology at [facility] Weight 77.1 kg (170 lb) 1 03/05/2021 [...] QTC Calculated (Bezet) 524 ms Calculated P [place] 30 degrees Calculated R [place] -103 degrees Calculated T [place] 62 degrees INTERPRETATION Atrial-sensed ventricular-paced rhythm Abnormal ECG When compared with ECG of 11-SEP-2007 16:25, Electronic ventricular pacemaker has replaced Sinus rhythm COVID-19 PCR Specimen: Nasopharyngeal Swab Symptoms->Surveillance Result Value Ref Range Rapid SARS-CoV-2 RNA Not Detected Not Detected SARS-CoV-2 Source SAP ANALYST Swab Prothrombin Time Result Value Ref Range [...] Ref Range T&S only valid at [facility] Hosp Prothrombin Time Result Value Ref Range [...] WASHINGTON Lea 03/06/2021 Thoracic Surgery Service Pager [phone] * Ashanti May MD - 03/05/2021 3:47 PM EDT [facility] Department of Thoracic Surgery Inpatient H&P Note [facility] [place], [place] [address] FAX: Patient Name: London Neri Patient : 1950 Patient Patient Location: ED10/ED10 B Thoracic surgery attending: Dr. Khalil HPI: London Neri is a 70 y.o. male with PMHx significant for recurrent spontaneous pneumothorax, CHF,mitral and aortic mechanical valves (both placed 1998, on coumadin), s/p pacemaker who presents as transfer from [facility] for surgical treatment of recurrent spontaneous left pneumothorax. Reports sudden onset of SOB on Monday which he knew felt like his prior ptx and presented to [facility] for treatment. Hospitalized at [facility] from 03/03 until today when he was transferred to [facility] for further management of his recurrent PTX. Had L-sided CT placed at [facility], with continuous air-leak since admission. Pt reports this is his fourth ptx, first occurred 2 years ago after multiple broken ribs incurred by slip and fall on ice. The 2nd and 3rd ptx were non-traumatic and one was attributed to lifting heavy item. Since CT placed at [facility] SOB has improved. Coumadin last taken [...] 4.67) performed by Lena Clark MD at [facility] Medications: No outpatient medications have [...] Gatherings with Friends and Family: ??? Attends Gnosticism Services: ??? Active Member of Clubs or [...] Date ED from 03/05/2021 in Emergency Department [facility] Office Visit from 08/10/2020 in Cardiology at [facility] Weight 77.1 kg (170 lb) 1 03/05/2021 [...] May MD 03/05/2021 Thoracic Surgery Service Pager [phone] documented in this encounter ED Notes * Ruma Kumar RN - 03/05/2021 7:09 PM EDT Pt O2 sats decrease when pt lying in bed. Boosted up in bed independently. O2 sats remained at 89. Pt placed on founder president and ceo at 2l/min. Pt then at 97% on founder president and ceo. Reading Efficiency Course Director removed after 2 mins and maintaing O2 [...] appears in place. 3-4+ air leak on -[id number] Abd: Soft, non tender MSK: No peripheral [...] in place. Pt is stable. Dr. Khalil manager environmental and will admit and take pt to [...] maintained with adequate output. No acute events, [facility] PLAN MOVING FORWARD: D/C Planning INDIVIDUALIZED [...] Type: *No Product type* / Secondary Insurance: [facility] Prescription Coverage: Yes Preferred Pharmacy: No Pharmacies Listed Last Physical Therapy Recommendation: (home with assistance and services TBD) with (likely none) Last Occupational Therapy Recommendation: home with supervision, home with supervision - [id number] Plan for discharge is: Home no needs Plan going forward: CM will continue to follow and assist with discharge planning and coordination of care as indicated. 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 Anticipated Date of Discharge: 03/12/2021 Vanessa Anne RN [employer] Archivist of Care Management Phone [phone] * Brief Op Note - Ashanti May MD - 03/09/2021 11:22 AM EDT Brief Operative Note Patient Name: London Neri : [id number] MR#: [id number] Case Date: 03/09/2021 Surgeon: Surgeon(s) and Role: [...] othersurfaces were oozing and we used the [facility] water bipolar cautery to obtain hemostasis throughout [...] pt not feeling well and stated that PEARL HAND could call . MSWleft voicemail for . Reason for Hospitalization: They repaired my left lung. Last COVID test: 03/05/21 1552 not detected Lab Results Component Value Date [id number] Not Detected 03/05/2021 Past medical History: Past Medical History: Diagnosis Date ??? C. difficile colitis ??? COPD (chronic obstructive pulmonary disease) ??? Emphysema of lung ??? Hemorrhoid ??? Pneumothorax on left Hospitalizations Within the Past 30 Days: other (see comments) (admitted to [facility] on 03/03, transferred to [facility] on 03/05) Current Decision-Making Capacity: Self Advance Care Planning: Attempt Cardiopulmonary Resuscitation - Inpatient Received -Advanced Directive: Yes, on file AD in eDH. Names Meredith Villarreal ([phone], ) as primary agent; names Loco Odell ([phone], , ) as secondary agent Current Functional [...] confirmed as: [address] [facility] [address] Social & Family Supports: PEARL HAND left voicemail for pt's at home number; PEARL HAND phone call to mobile number and recording states that it is not in service Extended Emergency Contact Information Primary Emergency Contact: Meredith Villarreal [facility] Mobile Relation: Spouse Current Care Provided by: [...] Type: *No Product type* / Secondary Insurance: [facility] Prescription Coverage: yes Preferred Pharmacy: unable to assess No Pharmacies Listed [place] Status: Patient is a : No, registration status: at at %. Primary Care Provider: Linda Mccray MD [phone] Tirso Ghosh ([phone]) as PCP - need to clarify with [...] accessing necessary care and/or follow-up after discharge. PEARL HAND attempted to meet with pt on [facility]; pt reporting that he is not feeling well. Able to answer only a few questions before asking for his nurse. Based on chart review, pt had recently syncopal episode with +headstrike. PEARL HAND phone call to pt's to complete IA. Left a voicecmail asking for call back. Cell phone listed on [facility] not in service - will address with when call back is received. A member of the Care Management team will continue to monitor progress, follow for continuity of care and assist with transition of care planning. NIRMALA Khan [employer] Archivist of Care Management Pager: [phone] * Plan of Care - Gary Rodríguez [...] Operative Note Patient Name: London Neri : [id number] MR#: [id number] Case Date: 03/06/2021 Surgeon: Surgeon(s) and Role: [...] leak. The patient was transferred to [facility] for definitive treatment of his recurrent spontaneous [...] 10:56 AM EDT Thoracoscopy W/Partial Pulmonary Decortication (69502) 03/06/2021 8:45 AM EDT left spontaeous pneumothorax Bronchoscopy, Diagnostic (20930) 03/06/2021 8:45 AM EDT left spontaeous pneumothorax Thoracoscopy Surg W/Pleurodesis (25389) 03/06/2021 8:45 AM EDT left spontaeous pneumothorax [...] who have questions please contact the health childcare aide that requested your imaging first. ? Narrative [...] patients who have questions please contactthe health childcare aide that requested your imaging first. Kendall Khalil [...] who have questions please contact the health childcare aide that requested your imaging first. ? Narrative 03/13/2021 1:22 PM EDT EXAMINATION: XR [...] patients who have questions please contactthe health childcare aide that requested your imaging first. Kendall Khalil [...] who have questions please contact the health childcare aide that requested your imaging first. ? Narrative 03/13/2021 9:41 AM EDT EXAMINATION: XR [...] patients who have questions please contactthe health childcare aide that requested your imaging first. Kendall Khalil MD IMG DX ORDERABLES * Green Tube HOLD (03/13/2021 3:47 AM EDT) Pathologist [facility] Green Hold Sample in lab. [facility] Blood Venous Draw / Unknown 03/13/2021 3:47 AM EDT 03/13/2021 4:24 AM EDT Uri Sawyer MD CHEMISTRY ORDERABLES [facility] [place] [address] * (ABNORMAL) Differential, Automated (03/13/2021 3:47 AM EDT) Pathologist [facility] Neutrophil % 82.8 % [facility] Neutrophil Absolute 11.20(H) 1.70 - 6.10 x10(3)/mc L [facility] Lymph % 6.4 % [facility] Lymphocytes Abs 0.9 0.9 - 3.2 x10(3)/mc L [facility] Monocyte % 7.8 % [facility] Monocyte Abs 1.1(H) 0.3 - 0.9 x10(3)/mc L [facility] Eos % 2.0 % [facility] Eosinophils Abs 0.3 0.0 - 0.4 x10(3)/mc L [facility] Basophil % 0.3 % [facility] Baso Absolute 0.0 0.0 - 0.1 x10(3)/mc L [facility] Immature Gran % 0.70 % [facility] Comment: Immature granulocytes(IG's)percentage and absolute count will include metamyelocytes, myelocytes, and promyelocytes. Blood smears from CBCs yielding IG's will be scanned manually for concordance. If this scan disagrees with the automated IG or if promyelocytes are noted, a manual differential will be performed. Immature Gran Absolute 0.09(H) 0.00 - 0.04 x10(3)/mc L [facility] Blood 03/13/2021 3:47 AM EDT 03/13/2021 4:23 AM EDT Narrative Resulting Agency Comment Spec In Lab Ashanti May MD HEMATOLOGY ORDERABLE S [facility] [place] [address] * (ABNORMAL) Hemogram (03/13/2021 3:47 AM EDT) White Blood Cell 13.5(H) 4.0 - 9.5 x10(3)/[facility] Red Blood Cell 2.70(L) 4.58 - 5.54 x10(6)/[facility] Hemoglobin 8.1(L) 13.7 - 16.5 gm/dL [facility] Hematocrit 24.0(L) 40.5 - 48.5 % [facility] Mean Cell Volume 88.9 82.9 - 93.1 fL [facility] Mean Cell Hemoglobin 30.0 27.5 - 32.1 pg [facility] Mean Cell Hemoglobin Concentration 33.8 32.0 - 35.7 gm/dL [facility] Platelet 316 145 - 357 x10(3)/[facility] RDW Standard Deviation 44.9 36.0 - 45.0 [facility] RDW coefficient of variation 14.4(H) 11.4 - 13.8 % [facility] Mean Platelet Volume 9.6 7.6 - 12.9 fL [facility] NRBC% auto 0.4 % [facility] NRBC Absolute 0.050(H) 0.000 - 0.000 x10(3)/ L [facility] Blood 03/13/2021 3:47 AM EDT 03/13/2021 4:23 AM EDT Narrative Resulting Agency Comment Spec In Lab Ashanti May MD HEMATOLOGY ORDERABLE S Performing Organization Address [facility] Co de Phone Number [facility] [place] [address] * (ABNORMAL) Prothrombin Time (03/13/2021 3:47 AM EDT) Prothrombin Time 12.9(H) 9.4 - 12.5 sec [facility] International Normalization Ratio 1.1 [facility] Comment: An INR <2.0 indicates [...] MD HEMATOLOGY ORDERABLE S Performing Organization Address [facility] Co de Phone Number [facility] [place] [address] * Prothrombin Time (03/12/2021 6:12 PM EDT) Prothrombin Time 11.7 9.4 - 12.5 sec [facility] International Normalization Ratio 1.0 [facility] Comment: An INR <2.0 indicates [...] Kendall Khalil MD HEMATOLOGY ORDERABLE S [facility] [place] [address] * Transfuse RBC (03/12/2021 5:24 PM EDT) [...] who have questions please contact the health childcare aide that requested your imaging first. ? Narrative [...] patients who have questions please contactthe health childcare aide that requested your imaging first. Kendall Khalil MD IMG DX ORDERABLES * Type and Screen Validity (03/12/2021 12:10 PM EDT) T&S only valid at [facility] Comment:This Type and Screen result is only valid at the [facility] Blood 03/12/2021 12:1 0 PM EDT 03/12/2021 12:21 PM EDT Narrative Resulting Agency Comment Spec In Lab Pardeep DELAROSA BLOOD BANK LAB OR DERABLES [facility] [place] [address] * ABORH Recheck Status (03/12/2021 12:10 PM EDT) ABORH Type Recheck Completed [facility] Blood 03/12/2021 12:1 0 PM EDT 03/12/2021 12:21 PM EDT Narrative Resulting Agency Comment Spec In Lab Pardeep DELAROSA BLOOD BANK LAB OR DERABLES Performing Organization Address [facility]/ZIP Co de Phone Number [facility] [place] [address] * Antibody screen (03/12/2021 12:10 PM EDT) Ab Screen Interp Negative [facility] Expires at [id number] on: 03/15/2021 [facility] Blood 03/12/2021 12:1 0 PM EDT 03/12/2021 12:21 PM EDT Narrative Resulting Agency Comment Spec In Lab Pardeep DELAROSA BLOOD BANK LAB OR DERABLES Performing Organization Address [facility] Co de Phone Number [facility] [place] [address] * ABO/Rh Typing (03/12/2021 12:10 PM EDT) ABORH Type A Neg [facility] Blood 03/12/2021 12:1 0 PM EDT 03/12/2021 12:21 PM EDT Narrative Resulting Agency Comment Spec In Lab Pardeep DELAROSA BLOOD BANK LAB OR DERABLES Performing Organization Address City/[facility]/ZIP Co de Phone Number [facility] [place] [address] * Prepare RBC (03/12/2021 10:45 AM EDT) Dispensed? Yes [facility] Blood 03/12/2021 10:4 5 AM EDT 03/12/2021 10:43 AM EDT Narrative Resulting Agency Comment Spec In Lab Kendall Khalil MD BLOOD BANK PRODUCT O RDERABLES [facility] [place] [address] * Green Tube HOLD (03/12/2021 8:31 AM EDT) Pathologist [facility] Green Hold Sample in lab. [facility] Blood Venous Draw / Unknown 03/12/2021 8:31 AM EDT 03/12/2021 8:38 AM EDT Ashanti May MD CHEMISTRY ORDERABLES [facility] [place] [address] * (ABNORMAL) Differential, Automated (03/12/2021 8:31 AM EDT) [facility] Neutrophil % 70.0 % [facility] Neutrophil Absolute 6.10 1.70 - 6.10 x10(3)/mc L [facility] Lymph % 13.8 % [facility] Lymphocytes Abs 1.2 0.9 - 3.2 x10(3)/mc L [facility] Monocyte % 9.3 % [facility] Monocyte Abs 0.8 0.3 - 0.9 x10(3)/mc L [facility] Eos % 5.1 % [facility] Eosinophils Abs 0.4 0.0 - 0.4 x10(3)/mc L [facility] Basophil % 0.7 % [facility] Baso Absolute 0.1 0.0 - 0.1 x10(3)/mc L [facility] Immature Gran % 1.10 % [facility] Comment: Immature granulocytes(IG's)percentage and absolute count will include metamyelocytes, myelocytes, and promyelocytes. Blood smears from CBCs yielding IG's will be scanned manually for concordance. If this scan disagrees with the automated IG or if promyelocytes are noted, a manual differential will be performed. Immature Gran Absolute 0.10(H) 0.00 - 0.04 x10(3)/mc L [facility] Blood 03/12/2021 8:31 AM EDT 03/12/2021 8:38 AM EDT Narrative Resulting Agency Comment Spec In Lab Ashanti May MD HEMATOLOGY ORDERABLE S [facility] [place] [address] * (ABNORMAL) Hemogram (03/12/2021 8:31 AM EDT) White Blood Cell 8.7 4.0 - 9.5 x10(3)/ L [facility] Red Blood Cell 2.34(L) 4.58 - 5.54 x10(6)/ L [facility] Hemoglobin 7.0(L) 13.7 - 16.5 gm/dL [facility] Hematocrit 20.8(L) 40.5 - 48.5 % [facility] Mean Cell Volume 88.9 82.9 - 93.1 fL [facility] Mean Cell Hemoglobin 29.9 27.5 - 32.1 pg [facility] Mean Cell Hemoglobin Concentration 33.7 32.0 - 35.7 gm/dL [facility] Platelet 275 145 - 357 x10(3)/ L [facility] RDW Standard Deviation 45.6(H) 36.0 - 45.0 [facility] RDW coefficient of variation 14.4(H) 11.4 - 13.8 % [facility] Mean Platelet Volume 9.5 7.6 - 12.9 fL [facility] NRBC% auto 0.5 % [facility] NRBC Absolute 0.040(H) 0.000 - 0.000 x10(3)/ L [facility] Blood 03/12/2021 8:31 AM EDT 03/12/2021 8:38 AM EDT Narrative Resulting Agency Comment Spec In Lab Ashanti May MD HEMATOLOGY ORDERABLE S Performing Organization Address City/[facility]/[place] [address] * (ABNORMAL) Differential, Automated (03/11/2021 12:48 PM EDT) Neutrophil % 65.8 % [facility] Neutrophil Absolute 5.12 1.70 - 6.10 x10(3)/mc L [facility] Lymph % 14.2 % [facility] Lymphocytes Abs 1.1 0.9 - 3.2 x10(3)/ L [facility] Monocyte % 11.0 % [facility] Monocyte Abs 0.9 0.3 - 0.9 x10(3)/ L [facility] Eos % 6.9 % [facility] Eosinophils Abs 0.5(H) 0.0 - 0.4 x10(3)/ L [facility] Basophil % 0.6 % [facility] Baso Absolute 0.0 0.0 - 0.1 x10(3)/[facility] Immature Gran % 1.50 % [facility] Comment: Immature granulocytes(IG's)percentage and absolute count will include metamyelocytes, myelocytes, and promyelocytes. Blood smears from CBCs yielding IG's will be scanned manually for concordance. If this scan disagrees with the automated IG or if promyelocytes are noted, a manual differential will be performed. Immature Gran Absolute 0.12(H) 0.00 - 0.04 x10(3)/ L [facility] Blood 03/11/2021 12:4 8 PM EDT 03/11/2021 1:27 PM EDT Narrative Resulting Agency Comment Spec In Lab Ashanti May MD HEMATOLOGY ORDERABLE S [facility] [place] [address] * (ABNORMAL) Hemogram (03/11/2021 12:48 PM EDT) [facility] White Blood Cell 7.8 4.0 - 9.5 x10(3)/ L [facility] Red Blood Cell 2.55(L) 4.58 - 5.54 x10(6)/[facility] Hemoglobin 7.3(L) 13.7 - 16.5 gm/dL [facility] Hematocrit 22.6(L) 40.5 - 48.5 % [facility] Mean Cell Volume 88.6 82.9 - 93.1 fL [facility] Mean Cell Hemoglobin 28.6 27.5 - 32.1 pg [facility] Mean Cell Hemoglobin Concentration 32.3 32.0 - 35.7 gm/dL [facility] Platelet 251 145 - 357 x10(3)/[facility] RDW Standard Deviation 46.9(H) 36.0 - 45.0 [facility] RDW coefficient of variation 14.5(H) 11.4 - 13.8 % [facility] Mean Platelet Volume 10.3 7.6 - 12.9 [facility] NRBC% auto 0.4 % [facility] NRBC Absolute 0.030(H) 0.000 - 0.000 x10(3)/[facility] Blood 03/11/2021 12:4 8 PM EDT 03/11/2021 1:27 PM EDT Narrative Resulting Agency Comment Spec In Lab Ashanti May MD HEMATOLOGY ORDERABLE S [facility] [place] [address] * (ABNORMAL) Basic Metabolic Panel (non-fasting) (03/11/2021 12:48 PM EDT) [facility] Glucose 100 65 - 199 mg/dL [facility] Comment:Diabetes: >=200 mg/d L plus symptoms Blood Urea Nitrogen 19 10 - 20 mg/dL [facility] Creatinine 0.93 0.80 - 1.50 mg/dL [facility] Sodium 140 135 - 145 mmol/L [facility] Potassium 3.9 3.5 - 5.0 mmol/L [facility] Comment: Please note: ??Patients with WBC >100,000 may have falsely elevated Potassium levels. ??For accurate Potassium quantification in these patients send serum separator tube (gold top) for subsequent determinations. ??Contact the Clinical Chemistry Laboratory if there are any questions. Chloride 106 98 - 107 mmol/L [facility] Carbon Dioxide 23 22 - 31 mmol/L [facility] Anion Gap 11 5 - 15 mmol/L [facility] Calcium 8.3(L) 8.5 - 10.5 mg/dL [facility] Est Glomerular Filtration Rate 82 >=60 mL/min/1. 73 m?? [facility] Comment: This patient? s estimated [...] In Lab Kendall Khalil MD CHEMISTRY ORDERABLES [facility] [place] [address] * XR Chest PA & Lateral (Generic) [...] who have questions please contact the health childcare aide that requested your imaging first. ? Narrative 03/10/2021 8:41 AM EDT EXAMINATION: XR [...] patients who have questions please contactthe health childcare aide that requested your imaging first. Kendall Khalil MD IMG DX ORDERABLES * (ABNORMAL) Differential, Automated (03/10/2021 5:52 AM EDT) Neutrophil % 79.5 % [facility] Neutrophil Absolute 8.74(H) 1.70 - 6.10 x10(3)/mc L [facility] Lymph % 9.8 % [facility] Lymphocytes Abs 1.1 0.9 - 3.2 x10(3)/mc L [facility] Monocyte % 9.5 % [facility] Monocyte Abs 1.0(H) 0.3 - 0.9 x10(3)/mc L [facility] Eos % 0.5 % [facility] Eosinophils Abs 0.1 0.0 - 0.4 x10(3)/mc L [facility] Basophil % 0.2 % [facility] Baso Absolute 0.0 0.0 - 0.1 x10(3)/mc L [facility] Immature Gran % 0.50 % [...] Absolute 0.05(H) 0.00 - 0.04 x10(3)/mc L [facility] Blood 03/10/2021 5:52 AM EDT 03/10/2021 6:21 AM EDT Narrative Resulting Agency Comment Spec In Lab Ashanti May MD HEMATOLOGY ORDERABLE S [facility] [place] [address] * (ABNORMAL) Hemogram (03/10/2021 5:52 AM EDT) White Blood Cell 11.0(H) 4.0 - 9.5 x10(3)/mc L [facility] Red Blood Cell 2.56(L) 4.58 - 5.54 x10(6)/mc L [facility] Hemoglobin 7.6(L) 13.7 - 16.5 gm/dL [facility] Hematocrit 22.3(L) 40.5 - 48.5 % [facility] Mean Cell Volume 87.1 82.9 - 93.1 fL [facility] Mean Cell Hemoglobin 29.7 27.5 - 32.1 pg [facility] Mean Cell Hemoglobin Concentration 34.1 32.0 - 35.7 gm/dL [facility] Platelet 208 145 - 357 x10(3)/mc L [facility] RDW Standard Deviation 47.7(H) 36.0 - 45.0 fL [facility] RDW coefficient of variation 14.9(H) 11.4 - 13.8 % [facility] Mean Platelet Volume 9.8 7.6 - 12.9 fL [facility] NRBC% auto 0.0 % [facility] NRBC Absolute 0.000 0.000 - 0.000 x10(3)/mc L [facility] Blood 03/10/2021 5:52 AM EDT 03/10/2021 6:21 AM EDT Narrative Resulting Agency Comment Spec In Lab Ashanti May MD HEMATOLOGY ORDERABLE S [facility] [place] [address] * (ABNORMAL) Phosphorus (03/10/2021 5:52 AM EDT) Phosphorus 2.4(L) 2.5 - 4.5 mg/dL [facility] Blood 03/10/2021 5:52 AM EDT 03/10/2021 6:21 AM EDT Narrative Resulting Agency Comment Spec In Lab Kendall Khalil MD CHEMISTRY ORDERABLES Performing Organization Address City/[facility]/ZIP Co de Phone Number [facility] [place] [address] * Magnesium (03/10/2021 5:52 AM EDT) Magnesium 0.92 0.69 - 1.07 mmol/L [facility] Blood 03/10/2021 5:52 AM EDT 03/10/2021 6:21 AM EDT Narrative Resulting Agency Comment Spec In Lab Kendall Khalil MD CHEMISTRY ORDERABLES Performing Organization Address [facility]/ZIP Co de Phone Number [facility] [place] [address] * (ABNORMAL) Basic Metabolic Panel (non-fasting) (03/10/2021 5:52 AM EDT) Glucose 106 65 - 199 mg/dL [facility] Comment:Diabetes: >=200 mg/d L plus symptoms Blood Urea Nitrogen 18 10 - 20 mg/dL [facility] Creatinine 0.76(L) 0.80 - 1.50 mg/dL [facility] Sodium 133(L) 135 - 145 mmol/L [facility] Potassium 4.5 3.5 - 5.0 mmol/L [facility] Comment: Please note: ??Patients with WBC >100,000 may have falsely elevated Potassium levels. ??For accurate Potassium quantification in these patients send serum separator tube (gold top) for subsequent determinations. ??Contact the Clinical Chemistry Laboratory if there are any questions. Chloride 104 98 - 107 mmol/L [facility] Carbon Dioxide 22 22 - 31 mmol/L [facility] Anion Gap 7 5 - 15 mmol/L [facility] Calcium 7.9(L) 8.5 - 10.5 mg/dL [facility] Est Glomerular Filtration Rate 92 >=60 mL/min/1. 73 m?? [facility] Comment: This patient? s estimated [...] In Lab Kendall Khalil MD CHEMISTRY ORDERABLES [facility] [place] [address] * XR Chest One View (03/09/2021 12:50 [...] who have questions please contact the health childcare aide that requested your imaging first. ? Narrative 03/09/2021 1:15 PM EDT EXAMINATION: XR [...] patients who have questions please contactthe health childcare aide that requested your imaging first. Kendall Khalil MD IMG DX ORDERABLES * (ABNORMAL) Differential, Automated (03/09/2021 11:55 AM EDT) Neutrophil % 92.8 % [facility] Neutrophil Absolute 13.14(H) 1.70 - 6.10 x10(3)/mc L [facility] Lymph % 2.4 % [facility] Lymphocytes Abs 0.3(L) 0.9 - 3.2 x10(3)/mc L [facility] Monocyte % 4.0 % [facility] Monocyte Abs 0.6 0.3 - 0.9 x10(3)/mc L [facility] Eos % 0.1 % [facility] Eosinophils Abs 0.0 0.0 - 0.4 x10(3)/mc L [facility] Basophil % 0.2 % [facility] Baso Absolute 0.0 0.0 - 0.1 x10(3)/mc L [facility] Immature Gran % 0.50 % [facility] Comment: Immature granulocytes(IG's)percentage and absolute count will include metamyelocytes, myelocytes, and promyelocytes. Blood smears from CBCs yielding IG's will be scanned manually for concordance. If this scan disagrees with the automated IG or if promyelocytes are noted, a manual differential will be performed. Immature Gran Absolute 0.07(H) 0.00 - 0.04 x10(3)/mc L [facility] Blood 03/09/2021 11:5 5 AM EDT 03/09/2021 1:26 PM EDT Narrative Resulting Agency Comment Spec In Lab Ashanti May MD HEMATOLOGY ORDERABLE S [facility] [place] [address] * (ABNORMAL) Hemogram (03/09/2021 11:55 AM EDT) White Blood Cell 14.2(H) 4.0 - 9.5 x10(3)/mc L [facility] Red Blood Cell 2.81(L) 4.58 - 5.54 x10(6)/mc L [facility] Hemoglobin 8.4(L) 13.7 - 16.5 gm/dL [facility] Hematocrit 24.5(L) 40.5 - 48.5 % [facility] Mean Cell Volume 87.2 82.9 - 93.1 [facility] Mean Cell Hemoglobin 29.9 27.5 - 32.1 pg [facility] Mean Cell Hemoglobin Concentration 34.3 32.0 - 35.7 gm/dL [facility] Platelet 178 145 - 357 x10(3)/mc L [facility] RDW Standard Deviation 46.4(H) 36.0 - 45.0 fL [facility] RDW coefficient of variation 14.4(H) 11.4 - 13.8 % [facility] Mean Platelet Volume 10.6 7.6 - 12.9 [facility] NRBC% auto 0.0 % [facility] NRBC Absolute 0.000 0.000 - 0.000 x10(3)/mc L [facility] Blood 03/09/2021 11:5 5 AM EDT 03/09/2021 1:26 PM EDT Narrative Resulting Agency Comment Spec In Lab Ashanti May MD HEMATOLOGY ORDERABLE S Performing Organization Address [facility] Co de Phone Number [facility] [place] [address] * (ABNORMAL) Phosphorus (03/09/2021 11:55 AM EDT) Phosphorus 4.7(H) 2.5 - 4.5 mg/dL [facility] Blood 03/09/2021 11:5 5 AM EDT 03/09/2021 1:26 PM EDT Narrative Resulting Agency Comment Spec In Lab Kendall Khalil MD CHEMISTRY ORDERABLES Performing Organization Address [facility] Co de Phone Number [facility] [place] [address] * Magnesium (03/09/2021 11:55 AM EDT) Magnesium 0.91 0.69 - 1.07 mmol/L [facility] Blood 03/09/2021 11:5 5 AM EDT 03/09/2021 1:26 PM EDT Narrative Resulting Agency Comment Spec In Lab Kendall Khalil MD CHEMISTRY ORDERABLES Performing Organization Address [facility] Co de Phone Number [facility] [place] [address] * (ABNORMAL) Basic Metabolic Panel (non-fasting) (03/09/2021 11:55 AM EDT) Glucose Not Perf 65 - 199 [facility] Comment: Sample improperly processed prior to receipt. Unspun for >1hr. Diabetes: >=200 mg/dL plus symptoms Blood Urea Nitrogen 17 10 - 20 mg/dL [facility] Creatinine 0.81 0.80 - 1.50 mg/dL [facility] Sodium 132(L) 135 - 145 mmol/L [facility] Potassium 4.6 3.5 - 5.0 mmol/L [facility] Comment: Please note: ??Patients with WBC >100,000 may have falsely elevated Potassium levels. ??For accurate Potassium quantification in these patients send serum separator tube (gold top) for subsequent determinations. ??Contact the Clinical Chemistry Laboratory if there are any questions. Chloride 99 98 - 107 mmol/L [facility] Carbon Dioxide 23 22 - 31 mmol/L [facility] Anion Gap 10 5 - 15 mmol/L [facility] Calcium 7.7(L) 8.5 - 10.5 mg/dL [facility] Est Glomerular Filtration Rate 89 >=60 mL/min/1. 73 m?? [facility] Comment: This patient? s estimated [...] In Lab Kendall Khalil MD CHEMISTRY ORDERABLES [facility] [place] [address] * (ABNORMAL) BLOOD GAS 2 ARTERIAL (03/09/2021 9:27 AM EDT) pH, Arterial 7.42 7.35 - 7.45 [facility] PCO2, Arterial 44 35 - 45 mmHg [facility] PO2, Arterial 137(H) 85 - 104 mmHg [facility] Bicarbonate, Arterial 28.1(H) 20.0 - 26.0 mmol/L [facility] Base Excess, Arterial 3.6(H) -3.0 - 3.0 mmol/L [facility] Hgb Blood Gas 8.6(L) 13.7 - 16.5 gm/dL [facility] Oxyhemoglobin, Arterial 97.2(H) 94.0 - 97.0 % [facility] Carboxyhemoglob in, Arterial 1.1 % [facility] Comment: Nonsmokers: 0.5-1.5% COHB Smokers: Variable, but usually less than 10% Toxic: 20-30% COHB Lethal: Greater than 60% COHB Methemoglobin, Arterial 0.3 <=1.5 % [facility] Na Whole Blood 129(L) 135 - 145 mmol/L [facility] K Whole Blood 4.7 3.5 - 5.0 mmol/L [facility] Comment: Please note: Patients with WBC >100,000 may have falsely elevated Potassium levels. Contact the Clinical Chemistry Laboratory if there are any questions. ICa Whole Blood 1.05(L) 1.15 - 1.33 mmol/L [facility] Comment: Note: ??Total bilirubin higher than 20 mg/dL may lead to falsely low ionized calcium. CL Whole Blood 100 98 - 107 mmol/L [facility] Gluc Whole Bld 132 65 - 199 mg/dL [facility] Comment:Diabetes: >=200 mg/d L plus symptoms. Lactate WB 1.7 0.5 - 2.2 mmol/L [facility] Blood 03/09/2021 9:27 AM EDT 03/09/2021 9:27 AM EDT Kendall Khalil MD POINT OF CARE TEST O RDERABLES [facility] [place] [address] * Prepare RBC (03/09/2021 7:15 AM EDT) Dispensed? Yes [facility] Blood 03/09/2021 7:15 AM EDT 03/09/2021 7:10 AM EDT Narrative Resulting Agency Comment Spec In Lab Kendall Khalil MD BLOOD BANK PRODUCT O RDERABLES [facility] [place] [address] * XR Chest One View (03/09/2021 6:54 [...] who have questions please contact the health childcare aide that requested your imaging first. ? Narrative [...] patients who have questions please contactthe health childcare aide that requested your imaging first. Kendall Khalil MD IMG DX ORDERABLES * POCT Glucose (03/09/2021 4:42 AM EDT) [facility] Glucose, POC 177 65 - 199 mg/dL [facility] Comment: Supplemental ranges: <140 mg/dL before meals <180 mg/dL all other times of the day Blood 03/09/2021 4:42 AM EDT 03/09/2021 4:42 AM EDT Kendall Khalil MD POINT OF CARE TEST O RDERABLES [facility] [place] [address] * (ABNORMAL) Differential, Automated (03/09/2021 2:57 AM EDT) [facility] Neutrophil % 82.6 % [facility] Neutrophil Absolute 10.25(H) 1.70 - 6.10 x10(3)/mc L [facility] Lymph % 8.4 % [facility] Lymphocytes Abs 1.0 0.9 - 3.2 x10(3)/mc L [facility] Monocyte % 7.8 % [facility] Monocyte Abs 1.0(H) 0.3 - 0.9 x10(3)/mc L [facility] Eos % 0.6 % [facility] Eosinophils Abs 0.1 0.0 - 0.4 x10(3)/mc L [facility] Basophil % 0.2 % [facility] Baso Absolute 0.0 0.0 - 0.1 x10(3)/mc L [facility] Immature Gran % 0.40 % [facility] Comment: Immature granulocytes(IG's)percentage and absolute count will include metamyelocytes, myelocytes, and promyelocytes. Blood smears from CBCs yielding IG's will be scanned manually for concordance. If this scan disagrees with the automated IG or if promyelocytes are noted, a manual differential will be performed. Immature Gran Absolute 0.05(H) 0.00 - 0.04 x10(3)/mc L [facility] Blood 03/09/2021 2:57 AM EDT 03/09/2021 3:31 AM EDT Narrative Resulting Agency Comment Spec In Lab Ashanti May MD HEMATOLOGY ORDERABLE S [facility] [place] [address] * (ABNORMAL) Hemogram (03/09/2021 2:57 AM EDT) White Blood Cell 12.4(H) 4.0 - 9.5 x10(3)/ L [facility] Red Blood Cell 2.64(L) 4.58 - 5.54 x10(6)/mc L [facility] Hemoglobin 7.9(L) 13.7 - 16.5 gm/dL [facility] Hematocrit 23.6(L) 40.5 - 48.5 % [facility] Mean Cell Volume 89.4 82.9 - 93.1 fL [facility] Mean Cell Hemoglobin 29.9 27.5 - 32.1 pg [facility] Mean Cell Hemoglobin Concentration 33.5 32.0 - 35.7 gm/dL [facility] Platelet 187 145 - 357 x10(3)/mc L [facility] RDW Standard Deviation 43.7 36.0 - 45.0 [facility] RDW coefficient of variation 13.4 11.4 - 13.8 % [facility] Mean Platelet Volume 10.4 7.6 - 12.9 fL [facility] NRBC% auto 0.0 % [facility] NRBC Absolute 0.000 0.000 - 0.000 x10(3)/mc L [facility] Blood 03/09/2021 2:57 AM EDT 03/09/2021 3:31 AM EDT Narrative Resulting Agency Comment Spec In Lab Ashanti May MD HEMATOLOGY ORDERABLE S Performing Organization Address [facility]/ZIP Co de Phone Number [facility] [place] [address] * Phosphorus (03/09/2021 2:57 AM EDT) Phosphorus 3.1 2.5 - 4.5 mg/dL [facility] Blood 03/09/2021 2:57 AM EDT 03/09/2021 3:31 AM EDT Narrative Resulting Agency Comment Spec In Lab Kendall Khalil MD CHEMISTRY ORDERABLES Performing Organization Address [facility] Co de Phone Number [facility] [place] [address] * Magnesium (03/09/2021 2:57 AM EDT) Magnesium 0.85 0.69 - 1.07 mmol/L [facility] Blood 03/09/2021 2:57 AM EDT 03/09/2021 3:31 AM EDT Narrative Resulting Agency Comment Spec In Lab Kendall Khalil MD CHEMISTRY ORDERABLES Performing Organization Address [facility] Co de Phone Number [facility] [place] [address] * (ABNORMAL) Basic Metabolic Panel (non-fasting) (03/09/2021 2:57 AM EDT) Glucose 112 65 - 199 mg/dL [facility] Comment:Diabetes: >=200 mg/d L plus symptoms Blood Urea Nitrogen 14 10 - 20 mg/dL [facility] Creatinine 0.81 0.80 - 1.50 mg/dL [facility] Sodium 132(L) 135 - 145 mmol/L [facility] Potassium 4.1 3.5 - 5.0 mmol/L [facility] Comment: Please note: ??Patients with WBC >100,000 may have falsely elevated Potassium levels. ??For accurate Potassium quantification in these patients send serum separator tube (gold top) for subsequent determinations. ??Contact the Clinical Chemistry Laboratory if there are any questions. Chloride 98 98 - 107 mmol/L [facility] Carbon Dioxide 26 22 - 31 mmol/L [facility] Anion Gap 8 5 - 15 mmol/L [facility] Calcium 8.0(L) 8.5 - 10.5 mg/dL [facility] Est Glomerular Filtration Rate 89 >=60 mL/min/1. 73 m?? [facility] Comment: This patient? s estimated [...] In Lab Kendall Khalil MD CHEMISTRY ORDERABLES [facility] [place] [address] * (ABNORMAL) Differential, Automated (03/08/2021 8:40 PM EDT) Neutrophil % 86.8 % [facility] Neutrophil Absolute 12.59(H) 1.70 - 6.10 x10(3)/mc L [facility] Lymph % 4.5 % [facility] Lymphocytes Abs 0.7(L) 0.9 - 3.2 x10(3)/ L [facility] Monocyte % 7.5 % [facility] Monocyte Abs 1.1(H) 0.3 - 0.9 x10(3)/ L [facility] Eos % 0.0 % [facility] Eosinophils Abs 0.0 0.0 - 0.4 x10(3)/[facility] Basophil % 0.1 % [facility] Baso Absolute 0.0 0.0 - 0.1 x10(3)/[facility] Immature Gran % 1.10 % [facility] Comment: Immature granulocytes(IG's)percentage and absolute count will include metamyelocytes, myelocytes, and promyelocytes. Blood smears from CBCs yielding IG's will be scanned manually for concordance. If this scan disagrees with the automated IG or if promyelocytes are noted, a manual differential will be performed. Immature Gran Absolute 0.16(H) 0.00 - 0.04 x10(3)/[facility] Blood 03/08/2021 8:40 PM EDT 03/08/2021 8:49 PM EDT Narrative Resulting Agency Comment Spec In Lab Jian Olivarez MD HEMATOLOGY ORDERABLE S [facility] [place] [address] * (ABNORMAL) Hemogram (03/08/2021 8:40 PM EDT) White Blood Cell 14.5(H) 4.0 - 9.5 x10(3)/[facility] Red Blood Cell 3.29(L) 4.58 - 5.54 x10(6)/ L [facility] Hemoglobin 9.7(L) 13.7 - 16.5 gm/dL [facility] Hematocrit 29.0(L) 40.5 - 48.5 % [facility] Mean Cell Volume 88.1 82.9 - 93.1 fL [facility] Mean Cell Hemoglobin 29.5 27.5 - 32.1 pg [facility] Mean Cell Hemoglobin Concentration 33.4 32.0 - 35.7 gm/dL [facility] Platelet 187 145 - 357 x10(3)/mc L [facility] RDW Standard Deviation 43.1 36.0 - 45.0 [facility] RDW coefficient of variation 13.2 11.4 - 13.8 % [facility] Mean Platelet Volume 10.3 7.6 - 12.9 [facility] NRBC% auto 0.0 % [facility] NRBC Absolute 0.000 0.000 - 0.000 x10(3)/mc L [facility] Blood 03/08/2021 8:40 PM EDT 03/08/2021 8:49 PM EDT Narrative Resulting Agency Comment Spec In Lab Jian Olivarez MD HEMATOLOGY ORDERABLE S [facility] [place] [address] * Type and Screen Validity (03/08/2021 4:36 PM EDT) [facility] T&S only valid at [facility] LABORATORY Comment:This Type and Screen result is only valid at the [facility] Blood 03/08/2021 4:36 PM EDT 03/08/2021 4:41 PM EDT Narrative Resulting Agency Comment Spec In Lab Ashanti May MD BLOOD BANK LAB ORDER [facility] [place] [address] * AB[facility] Recheck Status (03/08/2021 4:36 PM EDT) [facility] Type Recheck Completed [facility] Blood 03/08/2021 4:36 PM EDT 03/08/2021 4:41 PM EDT Narrative Resulting Agency Comment Spec In Lab Ashanti May MD BLOOD BANK LAB ORDER [facility] [place] [address] * Antibody screen (03/08/2021 4:36 PM EDT) Ab Screen Interp Negative [facility] Expires at [id number] on: 03/11/2021 [facility] Blood 03/08/2021 4:36 PM EDT 03/08/2021 4:41 PM EDT Narrative Resulting Agency Comment Spec In Lab Ashanti May MD BLOOD BANK LAB ORDER [facility] [place], [place] [id number] * ABO/Rh Typing (03/08/2021 4:36 PM EDT) ABORH Type A Neg [facility] Blood 03/08/2021 4:36 PM EDT 03/08/2021 4:41 PM EDT Narrative Resulting Agency Comment Spec In Lab Ashanti May MD BLOOD BANK LAB ORDER [facility] [place] [address] * XR Chest One View (03/08/2021 3:00 [...] who have questions please contact the health childcare aide that requested your imaging first. ? Narrative 03/08/2021 3:08 PM EDT EXAMINATION: XR [...] patients who have questions please contactthe health childcare aide that requested your imaging first. Kendall Khalil MD IMG DX ORDERABLES * EKG 12 Lead (03/08/2021 12:56 PM EDT) Pathologist [facility] [place] Ventricular rate 92 BPM MUSE SYSTEM Atrial Rate 92 BPM MUSE SYSTEM P-R Interval 180 ms MUSE SYSTEM QRS Duration 166 ms MUSE SYSTEM Q-T Interval 426 ms MUSE SYSTEM QTC Calculated (Bezet) 526 ms MUSE SYSTEM Calculated P [place] 43 degrees MUSE SYSTEM Calculated R [place] -63 degrees MUSE SYSTEM Calculated T [place] 62 degrees MUSE SYSTEM INTERPRETATION Atrial-sense d ventricular- paced rhythm Underlying normal sinus rhythm Abnormal ECG When compared with ECG of 05-MAR-2021 15:30, Vent. rate has increased BY ??19 BPM Confirmed by Devonte Newsome ([id number]) on 03/08/2021 4:10:26 PM MUSE SYSTEM 03/08/2021 12:5 6 PM EDT 03/08/2021 4:10 PM EDT Kendall Khalil MD ECG ORDERABLES MUSE SYSTEM * (ABNORMAL) Differential, Automated (03/08/2021 12:47 PM EDT) Pathologist [facility] [place] Neutrophil % 85.5 % [facility] Neutrophil Absolute 9.55(H) 1.70 - 6.10 x10(3)/mc L [facility] Lymph % 5.6 % [facility] Lymphocytes Abs 0.6(L) 0.9 - 3.2 x10(3)/mc L [facility] Monocyte % 8.1 % [facility] Monocyte Abs 0.9 0.3 - 0.9 x10(3)/mc L [facility] Eos % 0.1 % [facility] Eosinophils Abs 0.0 0.0 - 0.4 x10(3)/ L [facility] Basophil % 0.3 % [facility] Baso Absolute 0.0 0.0 - 0.1 x10(3)/[facility] Immature Gran % 0.40 % [facility] Comment: Immature granulocytes(IG's)percentage and absolute count will include metamyelocytes, myelocytes, and promyelocytes. Blood smears from CBCs yielding IG's will be scanned manually for concordance. If this scan disagrees with the automated IG or if promyelocytes are noted, a manual differential will be performed. Immature Gran Absolute 0.05(H) 0.00 - 0.04 x10(3)/[facility] Blood 03/08/2021 12:4 7 PM EDT 03/08/2021 12:57 PM EDT Narrative Resulting Agency Comment Spec In Lab Ashanti May MD HEMATOLOGY ORDERABLE S [facility] [place] [address] * (ABNORMAL) Hemogram (03/08/2021 12:47 PM EDT) White Blood Cell 11.2(H) 4.0 - 9.5 x10(3)/[facility] Red Blood Cell 3.59(L) 4.58 - 5.54 x10(6)/ L [facility] Hemoglobin 10.6(L) 13.7 - 16.5 gm/dL [facility] Hematocrit 31.6(L) 40.5 - 48.5 % [facility] Mean Cell Volume 88.0 82.9 - 93.1 fL [facility] Mean Cell Hemoglobin 29.5 27.5 - 32.1 pg [facility] Mean Cell Hemoglobin Concentration 33.5 32.0 - 35.7 gm/dL [facility] Platelet 170 145 - 357 x10(3)/ L [facility] RDW Standard Deviation 43.1 36.0 - 45.0 [facility] RDW coefficient of variation 13.2 11.4 - 13.8 % [facility] Mean Platelet Volume 10.6 7.6 - 12.9 [facility] NRBC% auto 0.0 % [facility] NRBC Absolute 0.000 0.000 - 0.000 x10(3)/mc L [facility] Blood 03/08/2021 12:4 7 PM EDT 03/08/2021 12:57 PM EDT Narrative Resulting Agency Comment Spec In Lab Ashanti May MD HEMATOLOGY ORDERABLE S Performing Organization Address City/[facility]/ZIP Co de Phone Number [facility] [place] [address] * Phosphorus (03/08/2021 12:47 PM EDT) Phosphorus 2.7 2.5 - 4.5 mg/dL [facility] Blood 03/08/2021 12:4 7 PM EDT 03/08/2021 12:57 PM EDT Narrative Resulting Agency Comment Spec In Lab Kendall Khalil MD CHEMISTRY ORDERABLES Performing Organization Address City/[facility]/ZIP Co de Phone Number [facility] [place] [address] * Magnesium (03/08/2021 12:47 PM EDT) Magnesium 0.70 0.69 - 1.07 mmol/L [facility] Blood 03/08/2021 12:4 7 PM EDT 03/08/2021 12:57 PM EDT Narrative Resulting Agency Comment Spec In Lab Kendall Khalil MD CHEMISTRY ORDERABLES Performing Organization Address City/[facility]/ZIP Co de Phone Number [facility] [place] [address] * (ABNORMAL) Basic Metabolic Panel (non-fasting) (03/08/2021 12:47 PM EDT) Glucose 109 65 - 199 mg/dL [facility] Comment:Diabetes: >=200 mg/d L plus symptoms Blood Urea Nitrogen 12 10 - 20 mg/dL [facility] Creatinine 0.78(L) 0.80 - 1.50 mg/dL [facility] Sodium 137 135 - 145 mmol/L [facility] Potassium 4.0 3.5 - 5.0 mmol/L [facility] Comment: Please note: ??Patients with WBC >100,000 may have falsely elevated Potassium levels. ??For accurate Potassium quantification in these patients send serum separator tube (gold top) for subsequent determinations. ??Contact the Clinical Chemistry Laboratory if there are any questions. Chloride 101 98 - 107 mmol/L [facility] Carbon Dioxide 26 22 - 31 mmol/L [facility] Anion Gap 10 5 - 15 mmol/L [facility] Calcium 8.5 8.5 - 10.5 mg/dL [facility] Est Glomerular Filtration Rate 91 >=60 mL/min/1. 73 m?? [facility] Comment: This patient? s estimated [...] Lab Kendall Khalil MD CHEMISTRY ORDERABLES [facility] [place] [address] * CT Head wo Contrast (Generic) (03/08/2021 [...] who have questions please contact the health childcare aide that requested your imaging first. ? Narrative [...] patients who have questions please contactthe health childcare aide that requested your imaging first. Kendall Khalil MD IMG CT ORDERABLES * (ABNORMAL) Hemogram (03/08/2021 3:56 AM EDT) White Blood Cell 9.8(H) 4.0 - 9.5 x10(3)/mc L [facility] Red Blood Cell 3.75(L) 4.58 - 5.54 x10(6)/mc L [facility] Hemoglobin 11.2(L) 13.7 - 16.5 gm/dL [facility] Hematocrit 33.6(L) 40.5 - 48.5 % [facility] Mean Cell Volume 89.6 82.9 - 93.1 fL [facility] Mean Cell Hemoglobin 29.9 27.5 - 32.1 pg [facility] Mean Cell Hemoglobin Concentration 33.3 32.0 - 35.7 gm/dL [facility] Platelet 165 145 - 357 x10(3)/mc L [facility] RDW Standard Deviation 44.4 36.0 - 45.0 [facility] RDW coefficient of variation 13.5 11.4 - 13.8 % [facility] Mean Platelet Volume 10.3 7.6 - 12.9 fL [facility] NRBC% auto 0.0 % [facility] NRBC Absolute 0.000 0.000 - 0.000 x10(3)/ L [facility] Blood 03/08/2021 3:56 AM EDT 03/08/2021 4:10 AM EDT Narrative Resulting Agency Comment Spec In Lab Jian Olivarez MD HEMATOLOGY ORDERABLE S [facility] [place] [address] * (ABNORMAL) Differential, Automated (03/08/2021 3:56 AM EDT) Neutrophil % 79.2 % [facility] Neutrophil Absolute 7.71(H) 1.70 - 6.10 x10(3)/mc L [facility] Lymph % 9.6 % [facility] Lymphocytes Abs 0.9 0.9 - 3.2 x10(3)/ L [facility] Monocyte % 9.1 % [facility] Monocyte Abs 0.9 0.3 - 0.9 x10(3)/ L [facility] Eos % 1.3 % [facility] Eosinophils Abs 0.1 0.0 - 0.4 x10(3)/ L [facility] Basophil % 0.4 % [facility] Baso Absolute 0.0 0.0 - 0.1 x10(3)/mc L [facility] Immature Gran % 0.40 % [facility] Comment: Immature granulocytes(IG's)percentage and absolute count will include metamyelocytes, myelocytes, and promyelocytes. Blood smears from CBCs yielding IG's will be scanned manually for concordance. If this scan disagrees with the automated IG or if promyelocytes are noted, a manual differential will be performed. Immature Gran Absolute 0.04 0.00 - 0.04 x10(3)/ L [facility] Blood 03/08/2021 3:56 AM EDT 03/08/2021 4:10 AM EDT Narrative Resulting Agency Comment Spec In Lab Jian Olivarez MD HEMATOLOGY ORDERABLE S [facility] [place] [address] * XR Chest PA & Lateral (Generic) [...] who have questions please contact the health childcare aide that requested your imaging first. ? Narrative [...] patients who have questions please contactthe health childcare aide that requested your imaging first. Kendall Khalil MD IMG DX ORDERABLES * APTT (03/06/2021 2:00 PM EDT) [facility] Signature Partial Thromboplastin Time 32 25 - 37 sec [facility] Comment: The PTT is NOT appropriate for heparin monitoring. Use the Anti-Xa level for heparin monitoring (HEP UFH) or LMWH monitoring (HEP LMW). A PTT less than 37 seconds generally indicates adequate hemostasis. Blood specimen (specimen) 03/06/2021 2:00 PM EDT 03/06/2021 2:10 PM EDT Narrative Resulting Agency Comment Spec In Lab Kendall Khalil MD HEMATOLOGY ORDERABLE S Performing Organization Address [facility] de Phone Number [facility] [place] [address] * (ABNORMAL) Prothrombin Time (03/06/2021 2:00 PM EDT) Prothrombin Time 15.9(H) 9.4 - 12.5 sec [facility] International Normalization Ratio 1.4 [facility] Comment: An INR <2.0 indicates [...] MD HEMATOLOGY ORDERABLE S Performing Organization Address [facility] Co de Phone Number [facility] [place] [address] * XR Chest One View (03/06/2021 1:06 [...] who have questions please contact the health childcare aide that requested your imaging first. ? Narrative 03/06/2021 2:55 PM EDT EXAMINATION: XR [...] patients who have questions please contactthe health childcare aide that requested your imaging first. Kendall Khalil MD IMG DX ORDERABLES * Specimen to Pathology (03/06/2021 10:57 AM EDT) AP Specimen 03/06/2021 10:5 7 AM EDT 03/06/2021 10:57 AM EDT Narrative [facility] - 03/06/2021 10:57 AM EDT Specimen requisition ordered. ??Separate Pathology report to follow Kendall Khalil MD PATHOLOGY/CYTOLOGY O RDERABLES [facility] [place] [address] * Surgical Pathology Report (03/06/2021 10:56 AM EDT) Final Diagnosis [id number] ? Location: 3WST; [facility]; A The signing pathologist has (i) examined the relevant preparation(s) for the specimen(s) and (ii) rendered or confirmed the diagnosis(es). . 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 Mesothelial reactive atypia and inflammation. Electronically signed by: ?Renetta Fraga DO Verified: ??03/12/2021 8:34 ?? Pathologist Performed at: ??-[facility], [place], [place] ADDITIONAL STUDIES Immunohistochemistry Studies: Formalin-fixed, paraffin-embedded [...] occupies 80% of the parenchymal volume. Sections/Processing: Procedural Nurse sections in 4 cassettes as follows: ?A1: ??Stapled parenchymal margin, en face ?A2-A4: ??Procedural Nurse parenchyma with bleb and adhesions ??erjg 03/12/2021 8:34 AM EDT [facility] LUNG STRUCTURE / Unknown 03/06/2021 10:56 AM EDT 03/06/2021 10:56 AM EDT Kendall Khalil MD PATHOLOGY/CYTOLOGY O RDERAJUAN [facility] [place] [address] * Prepare thawed plasma (03/06/2021 7:20 AM EDT) Pathologist [facility] [place] Dispensed? Yes [facility] Blood specimen (specimen) 03/06/2021 7:20 AM EDT 03/06/2021 7:17 AM EDT Narrative Resulting Agency Comment Spec In Lab Kendall Khalil MD BLOOD BANK PRODUCT O RDERABLES Performing Organization Address [facility] Co de Phone Number [facility] [place] [address] * (ABNORMAL) Prothrombin Time (03/06/2021 4:50 AM EDT) [facility] Prothrombin Time 20.6(H) 9.4 - 12.5 sec [facility] International Normalization Ratio 1.8 [facility] Comment: An INR <2.0 indicates [...] MD HEMATOLOGY ORDERABLE S Performing Organization Address [facility]/ZIP Co de Phone Number [facility] [place] [address] * SCAN DOC: LAB (03/06/2021 12:00 AM EDT) Narrative 03/06/2021 12:00 AM EDT Ordered by an unspecified provider. Scanning Provider MEDIA MGR SCAN EXT O RDR/RSLT * Type and Screen Validity (03/05/2021 6:10 PM EDT) [facility] T&S only valid at [facility] Comment:This Type and Screen result is only valid at the [facility] Blood specimen (specimen) 03/05/2021 6:10 PM EDT 03/05/2021 6:15 PM EDT Narrative Resulting Agency Comment Spec In Lab Kenneth Newby MD BLOOD BANK LAB ORD ERABLES [facility] [place] [address] * ABORH Recheck Status (03/05/2021 6:10 PM EDT) ABORH Recheck Order Order Placed [facility] ABORH Type Recheck Complete [facility] Blood specimen (specimen) 03/05/2021 6:10 PM EDT 03/05/2021 6:15 PM EDT Narrative Resulting Agency Comment Spec In Lab Kenneth Newby MD BLOOD BANK LAB ORD ERABLES [facility] [place] [address] * Antibody screen (03/05/2021 6:10 PM EDT) Ab Screen Interp Negative [facility] Expires at [id number] on: 03/08/2021 [facility] Blood specimen (specimen) 03/05/2021 6:10 PM EDT 03/05/2021 6:15 PM EDT Narrative Resulting Agency Comment Spec In Lab Kenneth Newby MD BLOOD BANK LAB ORD ERABLES [facility] [place] [address] * ABO/Rh Typing (03/05/2021 6:10 PM EDT) ABORH Type A Neg [facility] Blood specimen (specimen) 03/05/2021 6:10 PM EDT 03/05/2021 6:15 PM EDT Narrative Resulting Agency Comment Spec In Lab Kenneth Newby MD BLOOD BANK LAB ORD ERABLES [facility] [place] [address] * Differential, Automated (03/05/2021 4:21 PM EDT) Neutrophil % 68.0 % [facility] Neutrophil Absolute 4.90 1.70 - 6.10 x10(3)/[facility] Lymph % 17.1 % [facility] Lymphocytes Abs 1.2 0.9 - 3.2 x10(3)/[facility] Monocyte % 9.4 % [facility] Monocyte Abs 0.7 0.3 - 0.9 x10(3)/[facility] Eos % 4.6 % [facility] Eosinophils Abs 0.3 0.0 - 0.4 x10(3)/[facility] Basophil % 0.8 % [facility] Baso Absolute 0.1 0.0 - 0.1 x10(3)/[facility] Immature Gran % 0.10 % [facility] Comment: Immature granulocytes(IG's)percentage and absolute count will include metamyelocytes, myelocytes, and promyelocytes. Blood smears from CBCs yielding IG's will be scanned manually for concordance. If this scan disagrees with the automated IG or if promyelocytes are noted, a manual differential will be performed. Immature Gran Absolute 0.01 0.00 - 0.04 x10(3)/[facility] Blood specimen (specimen) 03/05/2021 4:21 PM EDT 03/05/2021 4:37 PM EDT Narrative Resulting Agency Comment Spec In Lab Kota Leyva MD HEMATOLOGY ORDERABLE S [facility] [place] [address] * (ABNORMAL) Hemogram (03/05/2021 4:21 PM EDT) [facility] White Blood Cell 7.2 4.0 - 9.5 x10(3)/mc L [facility] Red Blood Cell 4.60 4.58 - 5.54 x10(6)/mc L [facility] Hemoglobin 13.7 13.7 - 16.5 gm/dL [facility] Hematocrit 40.4(L) 40.5 - 48.5 % [facility] Mean Cell Volume 87.8 82.9 - 93.1 fL [facility] Mean Cell Hemoglobin 29.8 27.5 - 32.1 pg [facility] Mean Cell Hemoglobin Concentration 33.9 32.0 - 35.7 gm/dL [facility] Platelet 197 145 - 357 x10(3)/mc L [facility] RDW Standard Deviation 44.7 36.0 - 45.0 [facility] RDW coefficient of variation 13.8 11.4 - 13.8 % [facility] Mean Platelet Volume 10.0 7.6 - 12.9 [facility] NRBC% auto 0.0 % [facility] NRBC Absolute 0.000 0.000 - 0.000 x10(3)/ L [facility] Blood specimen (specimen) 03/05/2021 4:21 PM EDT 03/05/2021 4:37 PM EDT Narrative Resulting Agency Comment Spec In Lab Kota Leyva MD HEMATOLOGY ORDERABLE S [facility] [place] [address] * (ABNORMAL) Basic Metabolic Panel (non-fasting) (03/05/2021 4:21 PM EDT) Glucose 96 65 - 199 mg/dL [facility] Comment:Diabetes: >=200 mg/d L plus symptoms Blood Urea Nitrogen 23(H) 10 - 20 mg/dL [facility] Creatinine 0.90 0.80 - 1.50 mg/dL [facility] Sodium 138 135 - 145 mmol/L [facility] Potassium 4.5 3.5 - 5.0 mmol/L [facility] Comment: Please note: ??Patients with WBC >100,000 may have falsely elevated Potassium levels. ??For accurate Potassium quantification in these patients send serum separator tube (gold top) for subsequent determinations. ??Contact the Clinical Chemistry Laboratory if there are any questions. Chloride 101 98 - 107 mmol/L [facility] Carbon Dioxide 27 22 - 31 mmol/L [facility] Anion Gap 10 5 - 15 mmol/L [facility] Calcium 9.2 8.5 - 10.5 mg/dL [facility] Est Glomerular Filtration Rate 86 >=60 mL/min/1. 73 m?? [facility] Comment: This patient? s estimated [...] Lab Kenneth Newby MD CHEMISTRY ORDERABL ES [facility] [place] [address] * (ABNORMAL) APTT (03/05/2021 4:21 PM EDT) Partial Thromboplastin Time 44(H) 25 - 37 sec [facility] Comment: The PTT is NOT appropriate for heparin monitoring. Use the Anti-Xa level for heparin monitoring (HEP UFH) or LMWH monitoring (HEP LMW). A PTT less than 37 seconds generally indicates adequate hemostasis. Blood specimen (specimen) 03/05/2021 4:21 PM EDT 03/05/2021 4:37 PM EDT Narrative Resulting Agency Comment Spec In Lab Kenneth Newby MD HEMATOLOGY ORDERAB LES Performing Organization Address [facility] Co de Phone Number [facility] [place] [address] * (ABNORMAL) Prothrombin Time (03/05/2021 4:21 PM EDT) Pathologist [facility] [place] Prothrombin Time 24.3(H) 9.4 - 12.5 sec [facility] International Normalization Ratio 2.1 [facility] Comment: An INR <2.0 indicates [...] MD HEMATOLOGY ORDERAB LES Performing Organization Address [facility] Co de Phone Number [facility] [place] [address] * COVID-19 PCR (03/05/2021 3:52 PM EDT) Pathologist [facility] [place] SARS-CoV-2 RNA (Rapid) Not Detected Not Detected [facility] Comment: This result should be [...] using the Simplexa COVID-19 Direct Assay by [employer] as authorized by the FDA issued Emergency [...] fact sheets at the following FDA website: https://www.fda.gov/medical-devices/hyfokkvwvuc-lqsslyy-5012-qiecj-87-boigohwcl- use-a qusuvagwtrhho-tonofcv-kjowvwo/ljorh-sxpupdtdsqu-jbob SARS-CoV-2 Source SAP ANALYST Swab FRANCISCO JAVIER LEÓN [facility] Nasopharyngeal swab (specimen) 03/05/2021 3:52 PM EDT 03/05/2021 4:43 PM EDT Comment:Symptoms->Surveillan ce Narrative Resulting Agency Comment Spec In Lab Kenneth Newby MD MICROBIOLOGY - GEN ERAL ORDERABLES Performing Organization Address City/[facility]/ZIP Co de Phone Number [facility] [place] [address] * EKG 12 Lead (03/05/2021 3:30 PM EDT) Ventricular rate 73 BPM MUSE SYSTEM Atrial Rate 73 BPM MUSE SYSTEM P-R Interval 178 ms MUSE SYSTEM QRS Duration 176 ms MUSE SYSTEM Q-T Interval 476 ms MUSE SYSTEM QTC Calculated (Bezet) 524 ms MUSE SYSTEM Calculated P [place] 30 degrees MUSE SYSTEM Calculated R [place] -103 degrees MUSE SYSTEM Calculated T [place] 62 degrees MUSE SYSTEM INTERPRETATION Atrial-sens ed ventricular -paced rhythm Abnormal ECG When compared with ECG of 11-SEP-2007 16:25, Ventricular -paced rhythm is now present Confirmed by MD Emelina, Jordana Blanca ([id number]) on 03/07/2021 3:16:02 PM MUSE SYSTEM 03/05/2021 3:30 PM EDT 03/07/2021 3:16 PM EDT Kenneth Newby MD ECG ORDERABLES Performing Organization Address City/[facility]/ZIP Co de Phone Number MUSE SYSTEM documented [...] Routine documented in this encounter Care Teams [employer] Gr[employer] Operator Relationship Specialty Start Date End Date Linda Mccray MD [address] [place] [address] PCP - General Family Medicine 10/20/16 documented as of this encounter
--- OUTSIDE RECORDS SUMMARY | 2024-08-30 13:32 | XMS_ITS | Encounter Summary ---
Author Organization [facility] [place] [address] Care Team Providers Care Trailer Sections Assembler Name Role Phone Linda Mccray MD Primary Care Provider Reason for Visit * Auth/Cert Specialty Diagnoses / Procedures Referred By Contac t Referred To Contact Diagnoses Recurrent spontaneous pneumothorax LARGE LEFT PNEUMOTHORAX Referral ID Status Reason Start Date Expiration Date Visits Re quested Visits Authorized [id number] 1 1 Encounter Details Date Type Department Care Team ([facility] Contact Info) Description 03/09/2021 8:31 AM EDT Anesthesia Event [place] [id number] [facility] [address] [place] [address] Anesthesia Record Procedure Summary Procedure Name Responsible [...] basilic vein (medial side of arm), right; qvha-syb-cywcaf catheter system; 20 gauge; no longer indicated, removed per physician, catheter/device intact; 03/13/21; 1535 03/05/21 0000 by Melanie Bundy RN 03/13/21 1535 by Dominique Garcia RN (RETIRED) Peripheral IV Line - Single Lumen 03/06/21; 0918; metacarpal vein (top of hand), left; niii-vxq-hxdpin catheter system; 18 gauge; L Serg WISE; [...] OR); median cubital vein (antecubital fossa), right; pjrt-jiw-oagabz catheter system; 16 gauge; ok to dc [...] Time: 1128 03/09/21 0840 by Guanakito Clay, [employer] 03/09/21 1128 by Guanakito Clay, [employer] Arterial Line 03/09/21; 0902; radi al artery, left; 20 gauge; Anatomical Landmarks, Guidewire; Sterile Prep, Sterile Gloves; no longer indicated, removed per policy, catheter intact; 03/09/21; 1345 03/09/21 0902 by Guanakito Clay, [employer] 03/09/21 1345 by Missy Anne RN Incision [...] Procedure Summary Date: 03/09/21 Room / Location: [address] MAIN OR Anesthesia Start: 830 Anesthesia Stop: 1130 Procedures: @THORACOTOMY WEXPL,CONTROL BLDNG (WRVU 25.28) (Left Chest) @THORACOSCOPY, SURG; W PART. DECORTICATION (WRVU 18.78) (Left Chest) Diagnosis: (bleeding) Surgeons: Navin Khalil MD Responsible Provider: Lenny Squires DO Anesthesia Type: general ASA Status: 3 - Emergent All Anesthesia Providers: Anesthesiologist: Lenny Squires DO [employer]: Guanakito Clay CRNA Vitals Value Taken Time BP 117/44 03/09/21 1300 Temp 36.8 ??C (98.2 ??F) 03/09/21 1132 Pulse 62 03/09/21 1313 Resp 16 03/09/21 1313 SpO2 93 % 03/09/21 1313 Pain Level 0 03/09/21 1135 Vitals shown include unvalidated device data. Patient Location: PACU[facility] Level of Consciousness: Conscious but Sleepy [...] depletion Added automatically from request for surgery [id number] ??? Chronic bullous emphysema ??? Clostridium difficile [...] 2.78) performed by Navin Khalil MD at [facility] MAIN OR ??? PRO COLONOSCOPY, REMV LESN, SNARE N/A 01/26/2017 COLONOSCOPY, POLYPECTOMY, REMOVAL LESION BY SNARE (WRVU 4.67) performed by Lena Clark MD at [facility] ENDOSCOPY ??? PRO THORACOSCOPY SURG PART PULM DECORT Left 03/06/2021 @THORACOSCOPY, SURG; W PART. DECORTICATION (WRVU 18.78) performed by Navin Khalil MD at [facility] MAIN OR ??? PRO THORACOSCOPY SURG W/PLEURODESIS Left 03/06/2021 @THORACOSCOPY, SURG; W PLEURODESIS (WRVU 10.83) performed by Navin Khalil MD at [facility] MAIN OR ??? PRO THORACOSCOPY W RESECTION-PLICATION EMPHYSEMA LUNG UNILATERAL Left 03/06/2021 @THORACOSCOPY, SURG; W/RESC-PLICATION EMPHYSEMATOUS LUNG, UNILATERAL (WRVU 27) performed by Navin Khalil MD at [facility] MAIN OR Social History Tobacco Use [...] 1.7 oz) Last edited 03/09/21 0452 by [place] Airway Assessment: Mallampati: II Cardiovascular Assessment: system [...] with patient and spouse. Plan discussed with [employer]. PAT Clinic Note documented in this encounter [...] mg documented in this encounter Care Teams Trailer Sections Assembler Relationship Specialty Start Date End Date Linda Mccray MD [address] [place] [address] PCP - General Family Medicine 10/20/16 documented as of this encounter
--- OUTSIDE RECORDS SUMMARY | 2024-08-30 13:33 | XMS_ITS | Encounter Summary ---
Author Organization Formerly [place] [address] Care Team Providers Care Air Operations Manager Name Role Phone Linda Mccray MD Primary Care Provider Reason for Visit * Reason Comments Hospital Transfer Shortness of Breath * Auth/Cert Specialty Diagnoses / Procedures Referred By Contac t Referred To Contact Diagnoses Recurrent spontaneous pneumothorax LARGE LEFT PNEUMOTHORAX Referral ID Status Reason Start Date Expiration Date Visits Re quested Visits Authorized [id number] 1 1 Encounter Details Date Type Department Care Team (Late st Contact Info) Description 03/06/2021 7:45 AM EDT - 03/06/2021 10:27 AM EDT [place] [id number] Kendall Khalil MD [facility] [place] [address] @THORACOSCOPY, SURG; W/RESC-PLICATION EMPHYSEMATOUS LUNG, UNILATERAL (WRVU [...] depletion Added automatically from request for surgery [id number] ??? Chronic bullous emphysema ??? Clostridium difficile [...] s/p pacemaker who presents as transfer from [facility] for surgical treatment of recurrent spontaneous left pneumothorax. ?? Reports sudden onset of SOB on Monday which he knew felt like his prior ptx and presented to [facility] for treatment. Hospitalized at [facility] from 03/03 until today when he was transferred to [facility] for further management of his recurrent PTX. Had L-sided CT placed at [facility], with continuous air-leak since admission. Pt reports this is his fourth ptx, first occurred 2 years ago after multiple broken ribs in curred by slip and fall on ice. The 2nd and 3rd ptx were non-traumatic and one was attributed to lifting heavy item. Since CT placed at [facility] SOB has improved. ?? Coumadin last taken morning of 03/04/21. Normal coumadin dose 10mg qd. He last ate at noon today. ?? On assessment in the ED: He is HDS, on RA and in no distress. He endorses no complaints. Hospital Course: London Neri was admitted to [facility] on 03/05/2021 viathe ED. He was [...] Monday03/15/21. Primary Care Doctor: Linda Mccray MD [phone] [facility] Anticoagulation Clinic: [phone] Warfarin (Coumadin??) should be taken at the same time every day, usually at 5pm. Your next INR should be scheduled on: Monday AM March 15, 2021 by Provider listed below Provider/Team responsible for your outpatient Coumadin?? (warfarin) management: Primary Care Physician/Anticoagulation Clinic at [facility]. ??? If you have not received a [...] a nurse in the Thoracic Clinic at [phone]. After hours or on weekends or holidays please call: [phone] and ask to speak to the Thoracic [...] the Thoracic Clinic or the Thoracic Surgeon talent acquisition project manager after hours. Please take over the counter [...] Where can you learn more? Visit our [employer] information library at [email or web address] You can also view health information on 46elks, your personal patient account. Log in or sign uptoday. Enter U010 in the search box to learn more about Learning About Indwelling Urinary Catheter Care to Prevent Infection. Current as of: April 20, 2020?Content Version: 12.8 ?? Rossolini. Care instructions adapted under license by [facility]. If you have questions about a medical condition or this instruction, always ask your healthcare professional. [employer] disclaims any warranty or liability for your [...] Where can you learn more? Visit our [employer] information library at [email or web address]/Globanto You can also view health information on 46elks, your personal patient account. Log in or sign uptoday. Enter X535 in the search box to learn more about Learning About How to Care for a Person's Indwelling Urinary Catheter. Current as of: May 08, 2020?Content Version: 12.8 ?? [id number] [employer]. Care instructions adapted under license by [facility]. If you have questions about a medical condition or this instruction, always ask your healthcare professional. [employer] disclaims any warranty or liability for your use of this information. Future Appointments and Orders Future Orders Complete By Expires XR Chest PA & Lateral (Generic) [59510 [id number] Custom] 03/27/2021 (Approximate) 03/13/2022 Process Instructions: Scheduling Instructions: Questions: Where will study be performed?: [facility] Radiology Portable exam?: Reason for exam and clinical history: s/p LVATS partial decort, blebectomy, talc pleurodesis c/b hemothorax s/p re-op LVATS washout Clinical information / sunshine questions: PTX, effusion, lung appostion, comparison Stat read required?: Date of injury if applicable: Requested Time: Walker standard [EQ135 Custom] As directed Process Instructions: Scheduling Instructions: Comments: London Neri [address] [facility] [address] (home) [phone] ([place]) Diagnosis: deconditioning with Unsteady gait Significant [...] Information: Primary Care Provider: Linda Mccray MD [phone] Discharge References/Attachments: Discharge References/Attachments None For questions regarding this document or issues relating to this hospitalization on the Thoracic Surgery Service, please contact Dr. Khalil's office at . Signed: Jeff Almendarez MD 03/13/2021 CC: PCP: Linda Mccray MD Referring: Marii Kenyon Md [address] [place] [address] documented in this encounter Discharge Instructions * [...] Where can you learn more? Visit our [employer] information library at [email or web address]/GoCoop You can also view health information on 46elks, your personal patient account. Log in or sign uptoday. Enter U010 in the search box to learn more about Learning About Indwelling Urinary Catheter Care to Prevent Infection. Current as of: April 20, 2020?Content Version: 12.8 ?? [phone] Rossolini. Care instructions adapted under license by [facility]. If you have questions about a medical condition or this instruction, always ask your healthcare professional. [employer] disclaims any warranty or liability for your [...] Where can you learn more? Visit our [employer] information library at https://[employer]/Globanto You can also view health information on 46elks, your personal patient account. Log in or sign uptoday. Enter X535 in the search box to learn more about Learning About How to Care for a Person's Indwelling Urinary Catheter. Current as of: May 08, 2020?Content Version: 12.8 ?? Rossolini. Care instructions adapted under license by [facility]. If you have questions about a medical condition or this instruction, always ask your healthcare professional. [employer] disclaims any warranty or liability for your [...] Monday03/15/21. Primary Care Doctor: Linda Mccray MD [phone] [facility] Anticoagulation Clinic: [phone] Warfarin (Coumadin??) should be taken at the same time every day, usually at 5pm. Your next INR should be scheduled on: Monday AM March 15, 2021 by Provider listed below Provider/Team responsible for your outpatient Coumadin?? (warfarin) management: Primary Care Physician/Anticoagulation Clinic at [facility]. ??? If you have not received a [...] a nurse in the Thoracic Clinic at [phone]. After hours or on weekends or holidays please call: [phone] and ask to speak to the Thoracic Surgeon on c all. Goldsmith Catheter: Please follow the instructions and materials provided for goldsmtih catheter managementat home. You will follow up [...] the Thoracic Clinic or the Thoracic Surgeon talent acquisition project manager after hours. Please take over the counter [...] approximately 1830 that they were unable to medicinal plant picker patient's Lovenox from pharmacy after patient was discharged, and that the pharmacy is now closed. With assistance from Dr. Jeff Almendarez, was able to arrange for patient to present at ED in [facility] to receive his 80 mg dose of Lovenox this evening and medicinal plant picker his regular prescription on Monday morning [...] from the original note were not included. [facility] Department of Thoracic Surgery Inpatient Progress Note Patient Name: London Neri Patient : 1950 Patient Patient Location: [address] [place] [address]A Attending Surgeon: KENNETH NEWBY DAVID J ID: [...] to Hosp-Admission (Current) from 03/05/2021 in 3 [facility] Office Visit from 08/10/2020 in Cardiology at [facility] Weight 81.7 kg (180 lb 3.2 oz) [...] May MD 03/12/2021 Thoracic Surgery Service Pager [phone] * Mayra Scales, DEMURRAGE MAN - 03/12/2021 11:55 AM EDT Physical Therapy Note Treatment Number PT: 2 Patient profile: London Neri??is a 70 y.o.??male admittted 03/05/21??with PMHx significant for recurrent spontaneous pneumothorax, CHF, mitral and aortic mechanical valves (both placed 1998, on coumadin), s/p pacemaker who presents as transfer from [facility] for surgical treatment of recurrent spontaneous left pneumothorax. ?? Reports sudden onset of SOB on Monday which he knew felt like his prior ptx and presented to [facility] for treatment. ??Hospitalized at [facility] from 03/03 until today when he was transferred to [facility] for further management of his recurrent PTX. Had L-sided CT placed at [facility], with continuous air-leak sinceadmission. Pt reports this is his fourth ptx, first occurred 2 years ago after multiple broken ribsincurred by slip and fall on ice. The 2nd and 3rd ptx were non-traumatic and one was attributed to lifting heavy item. Since CT placed at [facility] SOB has improved. S/p L VATS [...] (TE-F x 2) MAYRA SCALES PTA Pager: [phone] Physical Therapy Inpatient Rehabilitation Department * Avril [...] Bedside, Bed Alarm Set * Malorie Mccauley, REGIONAL SAFETY MANAGER - 03/11/2021 9:53 AM EDT [facility] Department of Thoracic Surgery Inpatient Progress Note Patient Name: London Neri Patient : 1950 Patient Patient Location: [address] [place] [address] Attending Surgeon: KENNETH NEWBY DAVID J ID: [...] to Hosp-Admission (Current) from 03/05/2021 in 3 [facility] Office Visit from 08/10/2020 in Cardiology at [facility] Weight 59.6 kg (131 lb 4.8 oz) [...] QTC Calculated (Bezet) 526 ms Calculated P [place] 43 degrees Calculated R [place] -63 degrees Calculated T [place] 62 degrees INTERPRETATION Atrial-sensed ventricular-paced rhythm Underlying normal sinus rhythm Abnormal ECG When compared with ECG of 05-MAR-2021 15:30, Vent. rate has increased BY 19 BPM Confirmed by Devonte Newsome ([id number]) on 03/08/2021 4:10:26 PM ABO/Rh Typing Result [...] Dispo: full code, floor status Malorie Mccauley REGIONAL SAFETY MANAGER 03/11/2021 Thoracic Surgery Service Pager [phone] * Lexie Cordova - 03/10/2021 9:57 PM [...] s/p pacemaker who presents as transfer from [facility] for surgical treatment of recurrent spontaneous left pneumothorax. ?? Reports sudden onset of SOB on Monday which he knew felt like his prior ptx and presented to [facility] for treatment. Hospitalized at [facility] from 03/03 until today when he was transferred to [facility] for further management of his recurrent PTX. Had L-sided CT placed at [facility], with continuous air-leak since admission. Pt reports this is his fourth ptx, first occurred 2 years ago after multiple broken ribs in curred by slip and fall on ice. The 2nd and 3rd ptx were non-traumatic and one was attributed to lifting heavy item. Since CT placed at [facility] SOB has improved. S/p L VATS [...] 2.78) performed by Kendall Khalil MD at [facility] MAIN OR ??? PRO COLONOSCOPY, REMV LESN, SNARE N/A 01/26/2017 COLONOSCOPY, POLYPECTOMY, REMOVAL LESION BY SNARE (WRVU 4.67) performed by Lena Clark MD at [facility] ENDOSCOPY ??? PRO THORACOSCOPY SURG PART PULM DECORT Left 03/06/2021 @THORACOSCOPY, SURG; W PART. DECORTICATION (WRVU 18.78) performed by Kendall Khalil MD at [facility] MAIN OR ??? PRO THORACOSCOPY SURG W/PLEURODESIS Left 03/06/2021 @THORACOSCOPY, SURG; W PLEURODESIS (WRVU 10.83) performed by Kendall Khalil MD at [facility] MAIN OR ??? PRO THORACOSCOPY W RESECTION-PLICATION EMPHYSEMA LUNG UNILATERAL Left 03/06/2021 @THORACOSCOPY, SURG; W/RESC-PLICATION EMPHYSEMATOUS LUNG, UNILATERAL (WRVU 27) performed by Kendall Khalil MD at [facility] MAIN OR Active Non-Hospital Problems Diagnosis [...] B shoulders at least 3/5 and good dietary internship. B ankles and knees 4-4+/5. Sensory: denies [...] outlinedin this evaluation. Time IN / OUT: 2401-7154 Total Minutes, Physical Therapy: 25 (Mod EV) RUMA BONE, PT Pager: [phone] Physical Therapy Inpatient Rehabilitation Department * Joseph [...] 2.78) performed by Kendall Khalil MD at [facility] MAIN OR ??? PRO COLONOSCOPY, REMV LESN, SNARE N/A 01/26/2017 COLONOSCOPY, POLYPECTOMY, REMOVAL LESION BY SNARE (WRVU 4.67) performed by Lena Clark MD at [facility] ENDOSCOPY ??? PRO THORACOSCOPY SURG PART PULM DECORT Left 03/06/2021 @THORACOSCOPY, SURG; W PART. DECORTICATION (WRVU 18.78) performed by Kendall Khalil MD at [facility] MAIN OR ??? PRO THORACOSCOPY SURG W/PLEURODESIS Left 03/06/2021 @THORACOSCOPY, SURG; W PLEURODESIS (WRVU 10.83) performed by Kendall Khalil MD at [facility] MAIN OR ??? PRO THORACOSCOPY W RESECTION-PLICATION EMPHYSEMA LUNG UNILATERAL Left 03/06/2021 @THORACOSCOPY, SURG; W/RESC-PLICATION EMPHYSEMATOUS LUNG, UNILATERAL (WRVU 27) performed by Kendall Khalil MD at [facility] MAIN OR Social History: Patient lives [...] & Perception: ?? WNL/WFL ?? corrective lenses railroad carman Communication: WFL Range of motion, strength, coordination: [...] and measurable assessment of functional outcome. Pager: [phone] Joseph Vidales OT 03/10/2021 Occupational Therapy Rehabilitation [...] dizziness due to acute blood loss anemia. [facility] Department of Thoracic Surgery Inpatient Progress Note Patient Name: London Neri Patient : 1950 Patient Patient Location: [address] [place], [place] [address] Attending Surgeon: KENNETH NEWBY DAVID J ID: [...] to Hosp-Admission (Current) from 03/05/2021 in 3 [facility] Office Visit from 08/10/2020 in Cardiology at [facility] Weight 82 kg (180 lb 12.8 oz) [...] QTC Calculated (Bezet) 526 ms Calculated P [place] 43 degrees Calculated R [place] -63 degrees Calculated T [place] 62 degrees INTERPRETATION Atrial-sensed ventricular-paced rhythm Underlying normal sinus rhythm Abnormal ECG When compared with ECG of 05-MAR-2021 15:30, Vent. rate has increased BY 19 BPM Confirmed by Devonte Newsome ([id number]) on 03/08/2021 4:10:26 PM ABO/Rh Typing Result [...] May MD 03/10/2021 Thoracic Surgery Service Pager [phone] * Myrna Ludwig APRN - 03/10/2021 8:35 AM EDT Cardiac Device Remote Monitoring Report Summary Medtronic Spacedeck 03/10/21 Device: Pacemaker Model: Maral Battery: 3.10 v, estimated longevity ~10.5 years Pacing percentage: AP 0.2%, GOPHERMAN 99.9% Current EGM: ,AR/GOPHERMAN. Atrial rate 240 bpm, ventricular rate 60 bpm. Events: AT/AF >=6 hr for 1 day. Patient activity less than 1 hr/day for 1 week Atrial high rate events: 1 AT/AF since 03/09/21 @ 10:55am, episode in progress. AT/AF [place] 10.8%. Rate histogram: Time in AT/AF = [...] in-clinic and remote Myrna Ludwig APRN Pager [phone] * Ross Mohan RN - 03/09/2021 7:42 [...] factors per assessment: [current deficits]: Generalized weakness, [id number] of OR, pain, dizziness, medications, hospitalization and [...] was informed to hold. Page out to [id number] to clarify, Call returned to clarify the ok to give the Heparin and ASA. Given per MD order. * Pardeep Lima PA - 03/09/2021 2:48 PM EDT [facility] Department of Thoracic Surgery Inpatient Post Op Check Note Patient Name: London Neri Patient : 1950 Patient Patient Location: [address] [place] [address] Attending Surgeon: KENNETH NEWBY DAVID J ID: [...] to Hosp-Admission (Current) from 03/05/2021 in 3 [facility] Office Visit from 08/10/2020 in Cardiology at [facility] Weight 79.7 kg (175 lb 11.2 oz) [...] QTC Calculated (Bezet) 526 ms Calculated P [place] 43 degrees Calculated R [place] -63 degrees Calculated T [place] 62 degrees INTERPRETATION Atrial-sensed ventricular-paced rhythm Underlying normal sinus rhythm Abnormal ECG When compared with ECG of 05-MAR-2021 15:30, Vent. rate has increased BY 19 BPM Confirmed by Devonte Newsome ([id number]) on 03/08/2021 4:10:26 PM ABO/Rh Typing Result [...] [place] Torres 03/09/2021 Thoracic Surgery Service Pager [phone] * Ross Mohan RN - 03/09/2021 2:20 [...] from the original note were not included. [facility] Department of Thoracic Surgery Inpatient Progress Note [facility] [address] [facility] [address] [place], [place] [address] FAX: Patient Name: London Neri Patient : 1950 Patient Patient Location: [address] [place] [address] Thoracic surgery attending: Dr. Khalil HPI: London Neri is a 70 y.o. male with PMHx significant for recurrent spontaneous pneumothorax, chronic CHF, mitral and aortic mechanical valves (both placed 1998, on coumadin), s/p pacemaker who presents as transfer from [facility] for surgical treatment of recurrent spontaneous left pneumothorax. Reports sudden onset of SOB on Monday which he knew felt like his prior ptx and presented to [facility] for treatment. Hospitalized at [facility] from 03/03 until today when he was transferred to [facility] for further management of his recurrent PTX. Had L-sided CT placed at [facility], with continuous air-leak since admission. Pt reports this is his fourth ptx, first occurred 2 years ago after multiple broken ribs in curred by slip and fall on ice. The 2nd and 3rd ptx were non-traumatic and one was attributed to lifting heavy item. Since CT placed at [facility] SOB has improved. Coumadin last taken [...] to Hosp-Admission (Current) from 03/05/2021 in 3 [facility] Office Visit from 08/10/2020 in Cardiology at [facility] Weight 79.7 kg (175 lb 11.2 oz) [...] QTC Calculated (Bezet) 526 ms Calculated P [place] 43 degrees Calculated R [place] -63 degrees Calculated T [place] 62 degrees INTERPRETATION Atrial-sensed ventricular-paced rhythm Underlying normal sinus rhythm Abnormal ECG When compared with ECG of 05-MAR-2021 15:30, Vent. rate has increased BY 19 BPM Confirmed by Devonte Newsome ([id number]) on 03/08/2021 4:10:26 PM ABO/Rh Typing Result Value Ref Range ABORh Type A Neg Antibody screen Result Value Ref Range Ab Screen Interp Negative Expires at 8749 on: 03/11/2021 ABORH Recheck Status Result Value [...] May MD 03/09/2021 Thoracic Surgery Service Pager [phone] * Margarita Becerra, PT - 03/09/2021 8:01 AM EDT Physical Therapy 03/09/21 0801 Physical Therapy Time and Intention Document Type contact Mode of Treatment physical therapy Total Minutes, Physical Therapy 0 Comment, Session Not Performed Pt being taken to the OR urgently for exploratory thoracotomy. PT tofollow post-op per MD orders. MARGARITA BECERRA, PT Pager # [phone] In-Pt Rehab Medicine * Freya Cedeño MSW - 03/08/2021 2:57 PM EDT MIXER OPERATOR received call from pt's . She reports that the pt goes by Gonzalo. She was able to provide thefollowing information: - Pt lives at address on file; several steps to enter the apartment and then single floor living. 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 MIXER OPERATOR informed her that MD will also call by the end of the day. reports that her cell phone is not working and she is available at the house number. Received second call around 3pm: - stating that she will be coming to [facility] and is asking about local hotels. MIXER OPERATOR informed of [employer] ([facility] currently closed). interested in staying at [facility] [place]. MIXER OPERATOR phone call to [facility] [facility] ([phone]), they report that they have availability. MIXER OPERATOR phone call to , provided her with [...] SpO2 92 % Joseph Vidales OT Pager: [phone] * Margarita Becerra, PT - 03/08/2021 2:00 [...] deferred until tomorrow MARGARITA BECERRA, PT Pager [phone] In-Pt Rehab Medicine * Ashanti May MD [...] - 03/08/2021 10:59 AM EDT London Neri [id number] 1950 Additional Information: patient on bedside commode, staff with patient at time of fall but not ableto catch patient. Patient reported nausea and dizziness, then patient lunged forward, fell onto floor, hit head. Patient endorses LOC/passing out while on bedside commode, before hitting floor. Date of Fall: 03/08/2021 Time of Fall: 113 Unit/Location: [facility] Room Number: 326B Provide a brief [...] small localized frontal head swelling and cut. PRIVATE DUTY AIDE called?: No Suspected intentional fall?: No Was [...] events: Remigio Gómez RN Person completing report: Remigoi Gómez RN Fall Occurrence Report * Winifred Patel PA - 03/08/2021 10:00 AM EDT Images from the original note were not included. [facility] Department of Thoracic Surgery Inpatient Progress Note [facility] [address] [facility] [address] [place], [place] [address] FAX: Patient Name: London Neri Patient : 1950 Patient Patient Location: [address] [place] [address] Thoracic surgery attending: Dr. Khalil HPI: London Neri is a 70 y.o. male with PMHx significant for recurrent spontaneous pneumothorax, chronic CHF, mitral and aortic mechanical valves (both placed 1998, on coumadin), s/p pacemaker who presents as transfer from [facility] for surgical treatment of recurrent spontaneous left pneumothorax. Reports sudden onset of SOB on Monday which he knew felt like his prior ptx and presented to [facility] for treatment. Hospitalized at [facility] from 03/03 until today when he was transferred to [facility] for further management of his recurrent PTX. Had L-sided CT placed at [facility], with continuous air-leak since admission. Pt reports this is his fourth ptx, first occurred 2 years ago after multiple broken ribs in curred by slip and fall on ice. The 2nd and 3rd ptx were non-traumatic and one was attributed to lifting heavy item. Since CT placed at [facility] SOB has improved. Coumadin last taken [...] to Hosp-Admission (Current) from 03/05/2021 in 3 [facility] Office Visit from 08/10/2020 in Cardiology at [facility] Weight 79.7 kg (175 lb 11.2 oz) [...] QTC Calculated (Bezet) 524 ms Calculated P [place] 30 degrees Calculated R [place] -103 degrees Calculated T [place] 62 degrees INTERPRETATION Atrial-sensed ventricular-paced rhythm Abnormal ECG When compared with ECG of 11-SEP-2007 16:25, Ventricular-paced rhythm is now present Confirmed by MD Emelina, Jordana Blanca ([id number]) on 03/07/2021 3:16:02 PM COVID-19 PCR Specimen: Nasopharyngeal Swab Symptoms->Surveillance Result Value Ref Range Rapid SARS-CoV-2 RNA Not Detected Not Detected SARS-CoV-2 Source SIDE GLUER Swab Prothrombin Time Result Value Ref Range [...] [place] Chaudhry 03/08/2021 Thoracic Surgery Service Pager [phone] * Avril East RN - 03/07/2021 5:32 [...] maintained, clear yellow urine throughout shift. LBM DEMURRAGE MAN, bowel meds given. OOB to walk aroundunit [...] Report called to Avril JIN, transferred to [facility] * Hardeep Cool DO - 03/06/2021 [...] RNA Not Detected Not Detected SARS-CoV-2 Source SIDE GLUER Swab Prothrombin Time Result Value Ref Range [...] PM EDT Cardiac Device Interrogation London Neri [id number] 03/06/2021 History: Mr. Neri is a 70 yo male with a history of HTN, mechanical aortic and mitral valve [id number], on chronic Coumadin with INR goal 2.5-3.5, [...] requiring chest tube placement, who presented to [facility] 03/[facility]/2021s transfer from [facility] for surgical treatment of recurrent spontaneous left pneumothorax. He underwent Left VATS partial decortication, blebectomy and talc pleurodesis on 03/06/2021. We were asked to interrogate device following intraoperative magnet application and ventricular tachycardia reported on telemetry frantz-procedurally. Device Interrogation: Data: Generator: Medtronic [id number] serial# [id number] implant 07/31/2020 RV lead: Medtronic 5076-52 serial# [id number]; implanted 09/26/2008 RA lead: Medtronic 5076-52 serial# [id number]; implanted 09/26/2008 Diagnostics Pacing Mode: DDDR 60/120/120; PAV 180, EULA 150, Mode Switch 171 Presenting EGMs: -GOPHERMAN Underlying Rhythm: CHB with no sensed R [...] clinic as scheduled [place] Cain 03/06/2021 Pager: [phone] * Avril East RN - 03/06/2021 7:30 [...] from the original note were not included. [facility] Department of Thoracic Surgery Inpatient Progress Note [facility] [address] [place] [address] FAX: Patient Name: London Neri Patient : 1950 Patient Patient Location: [address] [place] [address] Thoracic surgery attending: Dr. Khalil HPI: London Neri is a 70 y.o. male with PMHx significant for recurrent spontaneous pneumothorax, CHF,mitral and aortic mechanical valves (both placed 1998, on coumadin), s/p pacemaker who presents as transfer from [facility] for surgical treatment of recurrent spontaneous left pneumothorax. Reports sudden onset of SOB on Monday which he knew felt like his prior ptx and presented to [facility] for treatment. Hospitalized at [facility] from 03/03 until today when he was transferred to [facility] for further management of his recurrent PTX. Had L-sided CT placed at [facility], with continuous air-leak since admission. Pt reports this is his fourth ptx, first occurred 2 years ago after multiple broken ribs in curred by slip and fall on ice. The 2nd and 3rd ptx were non-traumatic and one was attributed to lifting heavy item. Since CT placed at [facility] SOB has improved. Coumadin last taken [...] to Hosp-Admission (Current) from 03/05/2021 in 3 [facility] Office Visit from 08/10/2020 in Cardiology at [facility] Weight 76.4 kg (168 lb 6.4 oz) [...] QTC Calculated (Bezet) 524 ms Calculated P [place] 30 degrees Calculated R [place] -103 degrees Calculated T [place] 62 degrees INTERPRETATION Atrial-sensed ventricular-paced rhythm Abnormal ECG When compared with ECG of 11-SEP-2007 16:25, Electronic ventricular pacemaker has replaced Sinus rhythm COVID-19 PCR Specimen: Nasopharyngeal Swab Symptoms->Surveillance Result Value Ref Range Rapid SARS-CoV-2 RNA Not Detected Not Detected SARS-CoV-2 Source SIDE GLUER Swab Prothrombin Time Result Value Ref Range [...] [place] Lea 03/07/2021 Thoracic Surgery Service Pager [phone] * Rubén Bone PA - 03/06/2021 8:29 AM EDT Images from the original note were not included. [facility] Department of Thoracic Surgery Inpatient Progress Note [place] [address] FAX: Patient Name: London Neri Patient : 1950 Patient Patient Location: [address] [place] [address] Thoracic surgery attending: Dr. Khalil HPI: London Neri is a 70 y.o. male with PMHx significant for recurrent spontaneous pneumothorax, CHF,mitral and aortic mechanical valves (both placed 1998, on coumadin), s/p pacemaker who presents as transfer from [facility] for surgical treatment of recurrent spontaneous left pneumothorax. Reports sudden onset of SOB on Monday which he knew felt like his prior ptx and presented to [facility] for treatment. Hospitalized at [facility] from 03/03 until today when he was transferred to [facility] for further management of his recurrent PTX. Had L-sided CT placed at [facility], with continuous air-leak since admission. Pt [...] to Hosp-Admission (Current) from 03/05/2021 in 3 [facility] Office Visit from 08/10/2020 in Cardiology at [facility] Weight 77.1 kg (170 lb) 1 03/05/2021 [...] QTC Calculated (Bezet) 524 ms Calculated P [place] 30 degrees Calculated R [place] -103 degrees Calculated T [place] 62 degrees INTERPRETATION Atrial-sensed ventricular-paced rhythm Abnormal ECG When compared with ECG of 11-SEP-2007 16:25, Electronic ventricular pacemaker has replaced Sinus rhythm COVID-19 PCR Specimen: Nasopharyngeal Swab Symptoms->Surveillance Result Value Ref Range Rapid SARS-CoV-2 RNA Not Detected Not Detected SARS-CoV-2 Source SIDE GLUER Swab Prothrombin Time Result Value Ref Range [...] Value Ref Range T&S only valid at [facility] Hosp Prothrombin Time Result Value Ref Range [...] [place] Le[place] 03/06/2021 Thoracic Surgery Service Pager [phone] * Ashanti May MD - 03/05/2021 3:47 PM EDT [facility] Department of Thoracic Surgery Inpatient H&P Note [facility] [address] [place] [address] FAX: Patient Name: London Neri Patient : 1950 Patient Patient Location: ED10/ED10 B Thoracic surgery attending: Dr. Khalil HPI: London Neri is a 70 y.o. male with PMHx significant for recurrent spontaneous pneumothorax, CHF,mitral and aortic mechanical valves (both placed 1998, on coumadin), s/p pacemaker who presents as transfer from [facility] for surgical treatment of recurrent spontaneous left pneumothorax. Reports sudden onset of SOB on Monday which he knew felt like his prior ptx and presented to [facility] for treatment. Hospitalized at [facility] from 03/03 until today when he was transferred to [facility] for further management of his recurrent PTX. Had L-sided CT placed at [facility], with continuous air-leak since admission. Pt reports this is his fourth ptx, first occurred 2 years ago after multiple broken ribs incurred by slip and fall on ice. The 2nd and 3rd ptx were non-traumatic and one was attributed to lifting heavy item. Since CT placed at [facility] SOB has improved. Coumadin last taken [...] 4.67) performed by Lena Clark MD at [facility] Medications: No outpatient medications have [...] Gatherings with Friends and Family: ??? Attends Orthodox Services: ??? Active Member of Clubs or [...] Date ED from 03/05/2021 in Emergency Department [facility] Office Visit from 08/10/2020 in Cardiology at [facility] Weight 77.1 kg (170 lb) 1 03/05/2021 [...] May MD 03/05/2021 Thoracic Surgery Service Pager [phone] documented in this encounter ED Notes * Ruma Kumar RN - 03/05/2021 7:09 PM EDT Pt O2 sats decrease when pt lying in bed. Boosted up in bed independently. O2 sats remained at 89. Pt placed on electrical systems designer at 2l/min. Pt then at 97% on electrical systems designer. Gang Plank Workman removed after 2 mins and maintaing O2 [...] appears in place. 3-4+ air leak on -[id number] Abd: Soft, non tender MSK: No peripheral [...] [place] Matthew A, MD 03/05/21 1522 * Wlili Meléndez DO - 03/05/2021 11:19 AM EDT EM attending brief transfer acceptance note: London Neri is a 70 y.o. who I accepted in transfer from [facility] The patient will be evaluated in the Emergency Department for known ptx with low o2 saturation and not expanding with pigtail in place. Pt is stable. Dr. Khalil talent acquisition project manager and will admit and take pt to [...] type* / Secondary Insurance: [facility] Prescription Coverage: Yes Preferred Pharmacy: No Pharmacies Listed Last Physical Therapy Recommendation: (home with assistance and services TBD) with (likely none) Last Occupational Therapy Recommendation: home with supervision, home with supervision - [id number] Plan for discharge is: Home no needs Plan going forward: CM will continue to follow and assist with discharge planning and coordination of care as indicated. Anticipated Date of Discharge: 03/15/2021 Vanessa Anne, virtual assistant for advertisers Office of Care Management * Plan of [...] Type: *No Product type* / Secondary Insurance: [employer] [place] Prescription Coverage: yes Preferred Pharmacy: No Pharmacies Listed Plan for discharge is: TBD Plan going forward: CM will continue to follow and assist with discharge planning and coordination of care as indicated. Anticipated Date of Discharge: 03/12/2021 Vanessa Anne RN Case Pest Control Technician of Care Management Phone [phone] * Brief Op Note - Ashanti May MD - 03/09/2021 11:22 AM EDT Brief Operative Note Patient Name: London Neri : [id number] MR#: [id number] Case Date: 03/09/2021 Surgeon: Surgeon(s) and Role: [...] othersurfaces were oozing and we used the Codingpeople water bipolar cautery to obtain hemostasis throughout [...] pt not feeling well and stated that MIXER OPERATOR could call . MSWleft voicemail for . Reason for Hospitalization: They repaired my left lung. Last COVID test: 03/05/21 1552 not detected Lab Results Component Value Date [id number] Not Detected 03/05/2021 Past medical History: Past Medical History: Diagnosis Date ??? C. difficile colitis ??? COPD (chronic obstructive pulmonary disease) ??? Emphysema of lung ??? Hemorrhoid ??? Pneumothorax on left Hospitalizations Within the Past 30 Days: other (see comments) (admitted to [facility] on 03/03, transferred to [facility] on 03/05) Current Decision-Making Capacity: Self Advance Care Planning: Attempt Cardiopulmonary Resuscitation - Inpatient Received -Advanced Directive: Yes, on file AD in eDH. Names Meredith Villarreal ([phone], ) as primary agent; names Loco Odell ([phone], , ) as secondary agent Current Functional [...] DME: none Home Address confirmed as: [address] [place] [address] Social & Family Supports: MIXER OPERATOR left voicemail for pt's at home number; MIXER OPERATOR phone call to mobile number and recording states that it is not in service Extended Emergency Contact Information Primary Emergency Contact: Meredith Villarreal [facility] Mobile Relation: Spouse Current Care Provided [...] type* / Secondary Insurance: [facility] Prescription Coverage: yes Preferred Pharmacy: unable to assess No Pharmacies Listed Status: Patient is a : No, registration status: at at %. Primary Care Provider: Linda Mccray MD [phone] Tirso Ghosh ([phone]) as PCP - need to clarify with [...] accessing necessary care and/or follow-up after discharge. MIXER OPERATOR attempted to meet with pt on [facility]; pt reporting that he is not feeling well. Able to answer only a few questions before asking for his nurse. Based on chart review, pt had recently syncopal episode with +headstrike. MIXER OPERATOR phone call to pt's to complete IA. Left a voicecmail asking for call back. [facility] service - will address with when call back is received. A member of the Care Management team will continue to monitor progress, follow for continuity of care and assist with transition of care planning. NIRMALA Khan Heel FormerPest Control Technician of Care Management Pager: [phone] * Plan of Care - Gary Rodríguez [...] Operative Note Patient Name: London Neri : [id number] MR#: [id number] Case Date: 03/06/2021 Surgeon: Surgeon(s) and Role: [...] air leak. The patient was transferred to [facility] for definitive treatment of his recurrent spontaneous [...] 10:56 AM EDT Thoracoscopy W/Partial Pulmonary Decortication (08364) 03/06/2021 8:45 AM EDT left spontaeous pneumothorax Bronchoscopy, Diagnostic (48781) 03/06/2021 8:45 AM EDT left spontaeous pneumothorax Thoracoscopy Surg W/Pleurodesis (63339) 03/06/2021 8:45 AM EDT left spontaeous pneumothorax [...] who have questions please contact the health health care coach that requested your imaging first. ? Narrative [...] patients who have questions please contactthe health health care coach that requested your imaging first. Electronically signed by: Malika Thayer MD, [facility]([phone]), at 03/30/2021 2:52 PM Kendall Khalil MD [...] who have questions please contact the health health care coach that requested your imaging first. ? Electronically signed by: KENDALL PACHECO MD, [facility] ([phone]), at 03/13/2021 1:22 PM Narrative 03/13/2021 1:22 [...] patients who have questions please contactthe health health care coach that requested your imaging first. Electronically signed by: KENDALL PACHECO MD, [facility]([phone]), at 03/13/2021 1:22 PM Kendall Khalil MD [...] who have questions please contact the health health care coach that requested your imaging first. ? Electronically signed by: KENDALL PACHECO MD, [facility] ([phone]), at 03/13/2021 9:41 AM Narrative 03/13/2021 9:41 [...] patients who have questions please contactthe health health care coach that requested your imaging first. Kendall Khalil MD IMG DX ORDERABLES * Green Tube HOLD (03/13/2021 3:47 AM EDT) Green Hold Sample in lab. [facility] Blood Venous Draw / Unknown 03/13/2021 3:47 AM EDT 03/13/2021 4:24 AM EDT Uri Sawyer MD CHEMISTRY ORDERABLES Performing Organization Address City/[facility]/[place] [address] * (ABNORMAL) Differential, Automated (03/13/2021 3:47 AM EDT) Neutrophil % 82.8 % [facility] Neutrophil Absolute 11.20(H) 1.70 - 6.10 x10(3)/mc L [facility] Lymph % 6.4 % [facility] Lymphocytes Abs 0.9 0.9 - 3.2 x10(3)/ L [facility] Monocyte % 7.8 % [facility] Monocyte Abs 1.1(H) 0.3 - 0.9 x10(3)/ L [facility] Eos % 2.0 % [facility] Eosinophils Abs 0.3 0.0 - 0.4 x10(3)/ L [facility] Basophil % 0.3 % [facility] Baso Absolute 0.0 0.0 - 0.1 x10(3)/ L [facility] Immature Gran % 0.70 % [facility] Comment: Immature granulocytes(IG's)percentage and absolute count will include metamyelocytes, myelocytes, and promyelocytes. Blood smears from CBCs yielding IG's will be scanned manually for concordance. If this scan disagrees with the automated IG or if promyelocytes are noted, a manual differential will be performed. Immature Gran Absolute 0.09(H) 0.00 - 0.04 x10(3)/ L [facility] Blood 03/13/2021 3:47 AM EDT 03/13/2021 4:23 AM EDT Narrative Resulting Agency Comment Spec In Lab Ashanti May MD HEMATOLOGY ORDERABLE [address] [place] [address] * (ABNORMAL) Hemogram (03/13/2021 3:47 AM EDT) Pathologist [facility] White Blood Cell 13.5(H) 4.0 - 9.5 x10(3)/[facility] Red Blood Cell 2.70(L) 4.58 - 5.54 x10(6)/[facility] Hemoglobin 8.1(L) 13.7 - 16.5 gm/dL [facility] Hematocrit 24.0(L) 40.5 - 48.5 % [facility] Mean Cell Volume 88.9 82.9 - 93.1 [facility] Mean Cell Hemoglobin 30.0 27.5 - 32.1 pg [facility] Mean Cell Hemoglobin Concentration 33.8 32.0 - 35.7 gm/dL [facility] Platelet 316 145 - 357 x10(3)/[facility] RDW Standard Deviation 44.9 36.0 - 45.0 [facility] RDW coefficient of variation 14.4(H) 11.4 - 13.8 % [facility] Mean Platelet Volume 9.6 7.6 - 12.9 [facility] NRBC% auto 0.4 % [facility] NRBC Absolute 0.050(H) 0.000 - 0.000 x10(3)/[facility] Blood 03/13/2021 3:47 AM EDT 03/13/2021 4:23 AM EDT Narrative Resulting Agency Comment Spec In Lab Ashanti May MD HEMATOLOGY ORDERABLE S [facility] [place] [address] * (ABNORMAL) Prothrombin Time (03/13/2021 3:47 AM EDT) Pathologist [facility] Prothrombin Time 12.9(H) 9.4 - 12.5 sec [facility] International Normalization Ratio 1.1 [facility] Comment: An INR <2.0 indicates [...] ORDERABLE S Performing Organization Address [facility] Co de Phone Number [facility] [place] [address] * Prothrombin Time (03/12/2021 6:12 PM EDT) Prothrombin Time 11.7 9.4 - 12.5 sec [facility] International Normalization Ratio 1.0 [facility] Comment: An INR <2.0 indicates [...] MD HEMATOLOGY ORDERABLE S Performing Organization Address City/[facility]/ZIP Co de Phone Number [facility] [place] [address] * Transfuse RBC (03/12/2021 5:24 PM EDT) [...] who have questions please contact the health health care coach that requested your imaging first. ? Electronically signed by: Malika Thayer MD, [facility] ([phone]), at 03/12/2021 2:56 PM Narrative 03/12/2021 2:56 [...] patients who have questions please contactthe health health care coach that requested your imaging first. Electronically signed by: Malika Thayer MD, [facility]([phone]), at 03/12/2021 2:56 PM Kendall Khalil MD IMG DX ORDERABLES * Type and Screen Validity (03/12/2021 12:10 PM EDT) [facility] T&S only valid at [facility] Comment:This Type and Screen result is only valid at the [facility] Blood 03/12/2021 12:1 0 PM EDT 03/12/2021 12:21 PM EDT Narrative Resulting Agency Comment Spec In Lab Pardeep DELAROSA BLOOD BANK LAB OR DERABLES Performing Organization Address [facility] Co de Phone Number [facility] [place] [address] * AB[facility] Recheck Status (03/12/2021 12:10 PM EDT) [facility] Type Recheck Completed [facility] Blood 03/12/2021 12:1 0 PM EDT 03/12/2021 12:21 PM EDT Narrative Resulting Agency Comment Spec In Lab Pardeep DELAROSA BLOOD BANK LAB OR DERABLES Performing Organization Address [facility] Co de Phone Number [facility] [place] [address] * Antibody screen (03/12/2021 12:10 PM EDT) Ab Screen Interp Negative [facility] Expires at [id number] on: 03/15/2021 [facility] Blood 03/12/2021 12:1 0 PM EDT 03/12/2021 12:21 PM EDT Narrative Resulting Agency Comment Spec In Lab Pardeep DELAROSA BLOOD BANK LAB OR DERABLES [facility] [place] [address] * ABO/Rh Typing (03/12/2021 12:10 PM EDT) AB[facility] Type A Neg [facility] Blood 03/12/2021 12:1 0 PM EDT 03/12/2021 12:21 PM EDT Narrative Resulting Agency Comment Spec In Lab Pardeep DELAROSA BLOOD BANK LAB OR DERABLES [facility] [place] [address] * Prepare RBC (03/12/2021 10:45 AM EDT) Dispensed? Yes [facility] Blood 03/12/2021 10:4 5 AM EDT 03/12/2021 10:43 AM EDT Narrative Resulting Agency Comment Spec In Lab Kendall Khalil MD BLOOD BANK PRODUCT O RDERABLES [facility] [place] [address] * Green Tube HOLD (03/12/2021 8:31 AM EDT) Green Hold Sample in lab. [facility] Blood Venous Draw / Unknown 03/12/2021 8:31 AM EDT 03/12/2021 8:38 AM EDT Ashanti May MD CHEMISTRY ORDERABLES Performing Organization Address City/[facility]/[place] [address] * (ABNORMAL) Differential, Automated (03/12/2021 8:31 AM EDT) Neutrophil % 70.0 % [facility] Neutrophil Absolute 6.10 1.70 - 6.10 x10(3)/mc L [facility] Lymph % 13.8 % [facility] Lymphocytes Abs 1.2 0.9 - 3.2 x10(3)/ L [facility] Monocyte % 9.3 % [facility] Monocyte Abs 0.8 0.3 - 0.9 x10(3)/ L [facility] Eos % 5.1 % [facility] Eosinophils Abs 0.4 0.0 - 0.4 x10(3)/ L [facility] Basophil % 0.7 % [facility] Baso Absolute 0.1 0.0 - 0.1 x10(3)/ L [facility] Immature Gran % 1.10 % [facility] Comment: Immature granulocytes(IG's)percentage and absolute count will include metamyelocytes, myelocytes, and promyelocytes. Blood smears from CBCs yielding IG's will be scanned manually for concordance. If this scan disagrees with the automated IG or if promyelocytes are noted, a manual differential will be performed. Immature Gran Absolute 0.10(H) 0.00 - 0.04 x10(3)/ L [facility] Blood 03/12/2021 8:31 AM EDT 03/12/2021 8:38 AM EDT Narrative Resulting Agency Comment Spec In Lab Ashanti May MD HEMATOLOGY ORDERABLE S [facility] [place] [address] * (ABNORMAL) Hemogram (03/12/2021 8:31 AM EDT) [facility] White Blood Cell 8.7 4.0 - 9.5 x10(3)/mc L [facility] Red Blood Cell 2.34(L) 4.58 - 5.54 x10(6)/ L [facility] Hemoglobin 7.0(L) 13.7 - 16.5 gm/dL [facility] Hematocrit 20.8(L) 40.5 - 48.5 % [facility] Mean Cell Volume 88.9 82.9 - 93.1 fL [facility] Mean Cell Hemoglobin 29.9 27.5 - 32.1 pg [facility] Mean Cell Hemoglobin Concentration 33.7 32.0 - 35.7 gm/dL [facility] Platelet 275 145 - 357 x10(3)/[facility] RDW Standard Deviation 45.6(H) 36.0 - 45.0 [facility] RDW coefficient of variation 14.4(H) 11.4 - 13.8 % [facility] Mean Platelet Volume 9.5 7.6 - 12.9 fL [facility] NRBC% auto 0.5 % [facility] NRBC Absolute 0.040(H) 0.000 - 0.000 x10(3)/[facility] Blood 03/12/2021 8:31 AM EDT 03/12/2021 8:38 AM EDT Narrative Resulting Agency Comment Spec In Lab Ashanti May MD HEMATOLOGY ORDERABLE S [facility] [place] [address] * (ABNORMAL) Differential, Automated (03/11/2021 12:48 PM EDT) [facility] Neutrophil % 65.8 % [facility] Neutrophil Absolute 5.12 1.70 - 6.10 x10(3)/[facility] Lymph % 14.2 % [facility] Lymphocytes Abs 1.1 0.9 - 3.2 x10(3)/[facility] Monocyte % 11.0 % [facility] Monocyte Abs 0.9 0.3 - 0.9 x10(3)/[facility] [facility] [place] [facility] Eos % 6.9 % [facility] Eosinophils Abs 0.5(H) 0.0 - 0.4 x10(3)/[facility] [place] [facility] Basophil % 0.6 % [facility] Baso Absolute 0.0 0.0 - 0.1 x10(3)/[facility] [place] Immature Gran % 1.50 % [facility] Comment: Immature granulocytes(IG's)percentage and absolute count will include metamyelocytes, myelocytes, and promyelocytes. Blood smears from CBCs yielding IG's will be scanned manually for concordance. If this scan disagrees with the automated IG or if promyelocytes are noted, a manual differential will be performed. Immature Gran Absolute 0.12(H) 0.00 - 0.04 x10(3)/[facility] [place] Blood 03/11/2021 12:4 8 PM EDT 03/11/2021 1:27 PM EDT Narrative Resulting Agency Comment Spec In Lab Ashanti May MD HEMATOLOGY ORDERABLE S [facility] [place] [address] * (ABNORMAL) Hemogram (03/11/2021 12:48 PM EDT) White Blood Cell 7.8 4.0 - 9.5 x10(3)/[facility] Red Blood Cell 2.55(L) 4.58 - 5.54 x10(6)/mc L [facility] Hemoglobin 7.3(L) 13.7 - 16.5 gm/dL [facility] Hematocrit 22.6(L) 40.5 - 48.5 % [facility] Mean Cell Volume 88.6 82.9 - 93.1 fL [facility] Mean Cell Hemoglobin 28.6 27.5 - 32.1 pg [facility] Mean Cell Hemoglobin Concentration 32.3 32.0 - 35.7 gm/dL [facility] Platelet 251 145 - 357 x10(3)/mc L [facility] RDW Standard Deviation 46.9(H) 36.0 - 45.0 fL [facility] RDW coefficient of variation 14.5(H) 11.4 - 13.8 % [facility] Mean Platelet Volume 10.3 7.6 - 12.9 fL [facility] NRBC% auto 0.4 % [facility] NRBC Absolute 0.030(H) 0.000 - 0.000 x10(3)/mc L [facility] Blood 03/11/2021 12:4 8 PM EDT 03/11/2021 1:27 PM EDT Narrative Resulting Agency Comment Spec In Lab Ashanti May MD HEMATOLOGY ORDERABLE S [facility] [place] [address] * (ABNORMAL) Basic Metabolic Panel (non-fasting) (03/11/2021 12:48 PM EDT) Glucose 100 65 - 199 mg/dL [facility] Comment:Diabetes: >=200 mg/d L plus symptoms Blood Urea Nitrogen 19 10 - 20 mg/dL [facility] Creatinine 0.93 0.80 - 1.50 mg/dL [facility] Sodium 140 135 - 145 mmol/L [facility] Potassium 3.9 3.5 - 5.0 mmol/L [facility] Comment: Please note: ??Patients with WBC >100,000 may have falsely elevated Potassium levels. ??For accurate Potassium quantification in these patients send serum separator tube (gold top) for subsequent determinations. ??Contact the Clinical Chemistry Laboratory if there are any questions. Chloride 106 98 - 107 mmol/L [facility] Carbon Dioxide 23 22 - 31 mmol/L [facility] Anion Gap 11 5 - 15 mmol/L [facility] Calcium 8.3(L) 8.5 - 10.5 mg/dL [facility] Est Glomerular Filtration Rate 82 >=60 mL/min/1. 73 m?? [facility] Comment: This patient? s estimated [...] In Lab Kendall Khalil MD CHEMISTRY ORDERABLES [facility] [place] [address] * XR Chest PA & Lateral (Generic) [...] who have questions please contact the health health care coach that requested your imaging first. ? Electronically signed by: Mirella Fowler MD, [facility] ([phone]), at 03/10/2021 8:41 AM Narrative 03/10/2021 8:41 [...] patients who have questions please contactthe health health care coach that requested your imaging first. Electronically signed by: Mirella Fowler MD, [facility]([phone]), at 03/10/2021 8:41 AM Kendall Khalil MD IMG DX ORDERABLES * (ABNORMAL) Differential, Automated (03/10/2021 5:52 AM EDT) Neutrophil % 79.5 % [facility] Neutrophil Absolute 8.74(H) 1.70 - 6.10 x10(3)/mc L [facility] Lymph % 9.8 % [facility] Lymphocytes Abs 1.1 0.9 - 3.2 x10(3)/mc L [facility] Monocyte % 9.5 % [facility] Monocyte Abs 1.0(H) 0.3 - 0.9 x10(3)/mc L [facility] Eos % 0.5 % [facility] Eosinophils Abs 0.1 0.0 - 0.4 x10(3)/ L [facility] Basophil % 0.2 % [facility] Baso Absolute 0.0 0.0 - 0.1 x10(3)/mc L [facility] Immature Gran % 0.50 % [facility] Comment: Immature granulocytes(IG's)percentage and absolute count will include metamyelocytes, myelocytes, and promyelocytes. Blood smears from CBCs yielding IG's will be scanned manually for concordance. If this scan disagrees with the automated IG or if promyelocytes are noted, a manual differential will be performed. Immature Gran Absolute 0.05(H) 0.00 - 0.04 x10(3)/mc L [facility] Blood 03/10/2021 5:52 AM EDT 03/10/2021 6:21 AM EDT Narrative Resulting Agency Comment Spec In Lab Ashanti May MD HEMATOLOGY ORDERABLE S [facility] [place] [address] * (ABNORMAL) Hemogram (03/10/2021 5:52 AM EDT) White Blood Cell 11.0(H) 4.0 - 9.5 x10(3)/mc L [facility] Red Blood Cell 2.56(L) 4.58 - 5.54 x10(6)/mc L [facility] Hemoglobin 7.6(L) 13.7 - 16.5 gm/dL [facility] Hematocrit 22.3(L) 40.5 - 48.5 % [facility] Mean Cell Volume 87.1 82.9 - 93.1 fL [facility] Mean Cell Hemoglobin 29.7 27.5 - 32.1 pg [facility] Mean Cell Hemoglobin Concentration 34.1 32.0 - 35.7 gm/dL [facility] Platelet 208 145 - 357 x10(3)/mc L [facility] RDW Standard Deviation 47.7(H) 36.0 - 45.0 fL [facility] RDW coefficient of variation 14.9(H) 11.4 - 13.8 % [facility] Mean Platelet Volume 9.8 7.6 - 12.9 fL [facility] NRBC% auto 0.0 % [facility] NRBC Absolute 0.000 0.000 - 0.000 x10(3)/mc L [facility] Blood 03/10/2021 5:52 AM EDT 03/10/2021 6:21 AM EDT Narrative Resulting Agency Comment Spec In Lab Ashanti May MD HEMATOLOGY ORDERABLE S Performing Organization Address [facility] Co de Phone Number [facility] [place] [address] * (ABNORMAL) Phosphorus (03/10/2021 5:52 AM EDT) Phosphorus 2.4(L) 2.5 - 4.5 mg/dL [facility] Blood 03/10/2021 5:52 AM EDT 03/10/2021 6:21 AM EDT Narrative Resulting Agency Comment Spec In Lab Kendall Khalil MD CHEMISTRY ORDERABLES Performing Organization Address [facility] Co de Phone Number [facility] [place] [address] * Magnesium (03/10/2021 5:52 AM EDT) Pathologist [facility] Magnesium 0.92 0.69 - 1.07 mmol/L [facility] Blood 03/10/2021 5:52 AM EDT 03/10/2021 6:21 AM EDT Narrative Resulting Agency Comment Spec In Lab Kendall Khalil MD CHEMISTRY ORDERABLES Performing Organization Address [facility] Co de Phone Number [facility] [place] [address] * (ABNORMAL) Basic Metabolic Panel (non-fasting) (03/10/2021 5:52 AM EDT) Glucose 106 65 - 199 mg/dL [facility] Comment:Diabetes: >=200 mg/d L plus symptoms Blood Urea Nitrogen 18 10 - 20 mg/dL [facility] Creatinine 0.76(L) 0.80 - 1.50 mg/dL [facility] Sodium 133(L) 135 - 145 mmol/L [facility] Potassium 4.5 3.5 - 5.0 mmol/L [facility] Comment: Please note: ??Patients with WBC >100,000 may have falsely elevated Potassium levels. ??For accurate Potassium quantification in these patients send serum separator tube (gold top) for subsequent determinations. ??Contact the Clinical Chemistry Laboratory if there are any questions. Chloride 104 98 - 107 mmol/L [facility] Carbon Dioxide 22 22 - 31 mmol/L [facility] Anion Gap 7 5 - 15 mmol/L [facility] Calcium 7.9(L) 8.5 - 10.5 mg/dL [facility] Est Glomerular Filtration Rate 92 >=60 mL/min/1. 73 m?? [facility] Comment: This patient? s estimated [...] In Lab Kendall Khalil MD CHEMISTRY ORDERABLES [facility] [place] [address] * XR Chest One View (03/09/2021 12:50 [...] who have questions please contact the health health care coach that requested your imaging first. ? Electronically signed by: GERMANIA BLAIR MD, [facility] ([phone]), at 03/09/2021 1:15 PM Narrative 03/09/2021 1:15 [...] patients who have questions please contactthe health health care coach that requested your imaging first. Electronically signed by: GERMANIA BLAIR MD, [facility]([phone]), at 03/09/2021 1:15 PM Kendall Khalil MD IMG DX ORDERABLES * (ABNORMAL) Differential, Automated (03/09/2021 11:55 AM EDT) Neutrophil % 92.8 % [facility] Neutrophil Absolute 13.14(H) 1.70 - 6.10 x10(3)/mc L [facility] Lymph % 2.4 % [facility] Lymphocytes Abs 0.3(L) 0.9 - 3.2 x10(3)/mc L [facility] Monocyte % 4.0 % [facility] Monocyte Abs 0.6 0.3 - 0.9 x10(3)/mc L [facility] Eos % 0.1 % [facility] Eosinophils Abs 0.0 0.0 - 0.4 x10(3)/mc L [facility] Basophil % 0.2 % [facility] Baso Absolute 0.0 0.0 - 0.1 x10(3)/mc L [facility] Immature Gran % 0.50 % [facility] Comment: Immature granulocytes(IG's)percentage and absolute count will include metamyelocytes, myelocytes, and promyelocytes. Blood smears from CBCs yielding IG's will be scanned manually for concordance. If this scan disagrees with the automated IG or if promyelocytes are noted, a manual differential will be performed. Immature Gran Absolute 0.07(H) 0.00 - 0.04 x10(3)/mc L [facility] Blood 03/09/2021 11:5 5 AM EDT 03/09/2021 1:26 PM EDT Narrative Resulting Agency Comment Spec In Lab Ashanti May MD HEMATOLOGY ORDERABLE S [facility] [place] [address] * (ABNORMAL) Hemogram (03/09/2021 11:55 AM EDT) White Blood Cell 14.2(H) 4.0 - 9.5 x10(3)/mc L [facility] Red Blood Cell 2.81(L) 4.58 - 5.54 x10(6)/mc L [facility] Hemoglobin 8.4(L) 13.7 - 16.5 gm/dL [facility] Hematocrit 24.5(L) 40.5 - 48.5 % [facility] Mean Cell Volume 87.2 82.9 - 93.1 [facility] Mean Cell Hemoglobin 29.9 27.5 - 32.1 pg [facility] Mean Cell Hemoglobin Concentration 34.3 32.0 - 35.7 gm/dL [facility] Platelet 178 145 - 357 x10(3)/mc L [facility] RDW Standard Deviation 46.4(H) 36.0 - 45.0 [facility] RDW coefficient of variation 14.4(H) 11.4 - 13.8 % [facility] Mean Platelet Volume 10.6 7.6 - 12.9 [facility] NRBC% auto 0.0 % [facility] NRBC Absolute 0.000 0.000 - 0.000 x10(3)/mc L [facility] Blood 03/09/2021 11:5 5 AM EDT 03/09/2021 1:26 PM EDT Narrative Resulting Agency Comment Spec In Lab Ashanti May MD HEMATOLOGY ORDERABLE S [facility] [place] [address] * (ABNORMAL) Phosphorus (03/09/2021 11:55 AM EDT) Phosphorus 4.7(H) 2.5 - 4.5 mg/dL [facility] Blood 03/09/2021 11:5 5 AM EDT 03/09/2021 1:26 PM EDT Narrative Resulting Agency Comment Spec In Lab Kendall Khalil MD CHEMISTRY ORDERABLES [facility] [place] [address] * Magnesium (03/09/2021 11:55 AM EDT) Pathologist [facility] Magnesium 0.91 0.69 - 1.07 mmol/L [facility] Blood 03/09/2021 11:5 5 AM EDT 03/09/2021 1:26 PM EDT Narrative Resulting Agency Comment Spec In Lab Kendall Khalil MD CHEMISTRY ORDERABLES Performing Organization Address City/[facility]/ZIP Co de Phone Number [facility] [place] [address] * (ABNORMAL) Basic Metabolic Panel (non-fasting) (03/09/2021 11:55 AM EDT) Pathologist [facility] Glucose Not Perf 65 - 199 [facility] Comment: Sample improperly processed prior to receipt. Unspun for >1hr. Diabetes: >=200 mg/dL plus symptoms Blood Urea Nitrogen 17 10 - 20 mg/dL [facility] Creatinine 0.81 0.80 - 1.50 mg/dL [facility] Sodium 132(L) 135 - 145 mmol/L [facility] Potassium 4.6 3.5 - 5.0 mmol/L [facility] Comment: Please note: ??Patients with WBC >100,000 may have falsely elevated Potassium levels. ??For accurate Potassium quantification in these patients send serum separator tube (gold top) for subsequent determinations. ??Contact the Clinical Chemistry Laboratory if there are any questions. Chloride 99 98 - 107 mmol/L [facility] Carbon Dioxide 23 22 - 31 mmol/L [facility] Anion Gap 10 5 - 15 mmol/L [facility] Calcium 7.7(L) 8.5 - 10.5 mg/dL [facility] Est Glomerular Filtration Rate 89 >=60 mL/min/1. 73 m?? [facility] Comment: This patient? s estimated [...] In Lab Kendall Khalil MD CHEMISTRY ORDERABLES [facility] [place] [address] * (ABNORMAL) BLOOD GAS 2 ARTERIAL (03/09/2021 9:27 AM EDT) pH, Arterial 7.42 7.35 - 7.45 [facility] PCO2, Arterial 44 35 - 45 mmHg [facility] PO2, Arterial 137(H) 85 - 104 mmHg [facility] Bicarbonate, Arterial 28.1(H) 20.0 - 26.0 mmol/L [facility] Base Excess, Arterial 3.6(H) -3.0 - 3.0 mmol/L [facility] Hgb Blood Gas 8.6(L) 13.7 - 16.5 gm/dL [facility] Oxyhemoglobin, Arterial 97.2(H) 94.0 - 97.0 % [facility] Carboxyhemoglob in, Arterial 1.1 % [facility] Comment: Nonsmokers: 0.5-1.5% COHB Smokers: Variable, but usually less than 10% Toxic: 20-30% COHB Lethal: Greater than 60% COHB Methemoglobin, Arterial 0.3 <=1.5 % [facility] Na Whole Blood 129(L) 135 - 145 mmol/L [facility] K Whole Blood 4.7 3.5 - 5.0 mmol/L [facility] Comment: Please note: Patients with WBC >100,000 may have falsely elevated Potassium levels. Contact the Clinical Chemistry Laboratory if there are any questions. ICa Whole Blood 1.05(L) 1.15 - 1.33 mmol/L [facility] Comment: Note: ??Total bilirubin higher than 20 mg/dL may lead to falsely low ionized calcium. CL Whole Blood 100 98 - 107 mmol/L [facility] Gluc Whole Bld 132 65 - 199 mg/dL [facility] Comment:Diabetes: >=200 mg/d L plus symptoms. Lactate WB 1.7 0.5 - 2.2 mmol/L [facility] Blood 03/09/2021 9:27 AM EDT 03/09/2021 9:27 AM EDT Kendall Khalil MD POINT OF CARE TEST O RDERABLES [facility] [place] [address] * Prepare RBC (03/09/2021 7:15 AM EDT) Dispensed? Yes [facility] Blood 03/09/2021 7:15 AM EDT 03/09/2021 7:10 AM EDT Narrative Resulting Agency Comment Spec In Lab Kendall Khalil MD BLOOD BANK PRODUCT O RDERABLES [facility] [place] [address] * XR Chest One View (03/09/2021 6:54 [...] who have questions please contact the health health care coach that requested your imaging first. ? Narrative [...] patients who have questions please contactthe health health care coach that requested your imaging first. Electronically signed by: Tirso Burton MD, [facility]([phone]), at 03/09/2021 7:28 AM Kendall Khalil MD IMG DX ORDERABLES * POCT Glucose (03/09/2021 4:42 AM EDT) [facility] Signature Glucose, POC 177 65 - 199 mg/dL [facility] Comment: Supplemental ranges: <140 mg/dL before meals <180 mg/dL all other times of the day Blood 03/09/2021 4:42 AM EDT 03/09/2021 4:42 AM EDT Kendall Khalil MD POINT OF CARE TEST O RDERABLES [facility] [place] [address] * (ABNORMAL) Differential, Automated (03/09/2021 2:57 AM EDT) Neutrophil % 82.6 % [facility] Neutrophil Absolute 10.25(H) 1.70 - 6.10 x10(3)/mc L [facility] Lymph % 8.4 % [facility] Lymphocytes Abs 1.0 0.9 - 3.2 x10(3)/ L [facility] Monocyte % 7.8 % [facility] Monocyte Abs 1.0(H) 0.3 - 0.9 x10(3)/mc L [facility] Eos % 0.6 % [facility] Eosinophils Abs 0.1 0.0 - 0.4 x10(3)/ L [facility] Basophil % 0.2 % [facility] Baso Absolute 0.0 0.0 - 0.1 x10(3)/mc L [facility] Immature Gran % 0.40 % [facility] Comment: Immature granulocytes(IG's)percentage and absolute count will include metamyelocytes, myelocytes, and promyelocytes. Blood smears from CBCs yielding IG's will be scanned manually for concordance. If this scan disagrees with the automated IG or if promyelocytes are noted, a manual differential will be performed. Immature Gran Absolute 0.05(H) 0.00 - 0.04 x10(3)/mc L [facility] Blood 03/09/2021 2:57 AM EDT 03/09/2021 3:31 AM EDT Narrative Resulting Agency Comment Spec In Lab Ashanti May MD HEMATOLOGY ORDERABLE S [facility] [place] [address] * (ABNORMAL) Hemogram (03/09/2021 2:57 AM EDT) White Blood Cell 12.4(H) 4.0 - 9.5 x10(3)/mc L [facility] Red Blood Cell 2.64(L) 4.58 - 5.54 x10(6)/mc L [facility] Hemoglobin 7.9(L) 13.7 - 16.5 gm/dL [facility] Hematocrit 23.6(L) 40.5 - 48.5 % [facility] Mean Cell Volume 89.4 82.9 - 93.1 fL [facility] Mean Cell Hemoglobin 29.9 27.5 - 32.1 pg [facility] Mean Cell Hemoglobin Concentration 33.5 32.0 - 35.7 gm/dL [facility] Platelet 187 145 - 357 x10(3)/mc L [facility] RDW Standard Deviation 43.7 36.0 - 45.0 [facility] RDW coefficient of variation 13.4 11.4 - 13.8 % [facility] Mean Platelet Volume 10.4 7.6 - 12.9 [facility] NRBC% auto 0.0 % [facility] NRBC Absolute 0.000 0.000 - 0.000 x10(3)/mc L [facility] Blood 03/09/2021 2:57 AM EDT 03/09/2021 3:31 AM EDT Narrative Resulting Agency Comment Spec In Lab Ashanti May MD HEMATOLOGY ORDERABLE S [facility] [place] [address] * Phosphorus (03/09/2021 2:57 AM EDT) Pathologist [facility] Phosphorus 3.1 2.5 - 4.5 mg/dL [facility] Blood 03/09/2021 2:57 AM EDT 03/09/2021 3:31 AM EDT Narrative Resulting Agency Comment Spec In Lab Kendall Khalil MD CHEMISTRY ORDERABLES Performing Organization Address [facility]/ZIP Co de Phone Number [facility] [place] [address] * Magnesium (03/09/2021 2:57 AM EDT) [facility] Magnesium 0.85 0.69 - 1.07 mmol/L [facility] Blood 03/09/2021 2:57 AM EDT 03/09/2021 3:31 AM EDT Narrative Resulting Agency Comment Spec In Lab Kendall Khalil MD CHEMISTRY ORDERABLES Performing Organization Address [facility] Co de Phone Number [facility] [place] [address] * (ABNORMAL) Basic Metabolic Panel (non-fasting) (03/09/2021 2:57 AM EDT) [facility] Glucose 112 65 - 199 mg/dL [facility] Comment:Diabetes: >=200 mg/d L plus symptoms Blood Urea Nitrogen 14 10 - 20 mg/dL [facility] Creatinine 0.81 0.80 - 1.50 mg/dL [facility] Sodium 132(L) 135 - 145 mmol/L [facility] Potassium 4.1 3.5 - 5.0 mmol/L [facility] Comment: Please note: ??Patients with WBC >100,000 may have falsely elevated Potassium levels. ??For accurate Potassium quantification in these patients send serum separator tube (gold top) for subsequent determinations. ??Contact the Clinical Chemistry Laboratory if there are any questions. Chloride 98 98 - 107 mmol/L [facility] Carbon Dioxide 26 22 - 31 mmol/L [facility] Anion Gap 8 5 - 15 mmol/L [facility] Calcium 8.0(L) 8.5 - 10.5 mg/dL [facility] Est Glomerular Filtration Rate 89 >=60 mL/min/1. 73 m?? [facility] Comment: This patient? s estimated [...] In Lab Kendall Khalil MD CHEMISTRY ORDERABLES [facility] [place] [address] * (ABNORMAL) Differential, Automated (03/08/2021 8:40 PM EDT) Neutrophil % 86.8 % [facility] Neutrophil Absolute 12.59(H) 1.70 - 6.10 x10(3)/mc L [facility] Lymph % 4.5 % [facility] Lymphocytes Abs 0.7(L) 0.9 - 3.2 x10(3)/mc L [facility] Monocyte % 7.5 % [facility] Monocyte Abs 1.1(H) 0.3 - 0.9 x10(3)/mc L [facility] Eos % 0.0 % [facility] Eosinophils Abs 0.0 0.0 - 0.4 x10(3)/ L [facility] Basophil % 0.1 % [facility] Baso Absolute 0.0 0.0 - 0.1 x10(3)/[facility] Immature Gran % 1.10 % [facility] Comment: Immature granulocytes(IG's)percentage and absolute count will include metamyelocytes, myelocytes, and promyelocytes. Blood smears from CBCs yielding IG's will be scanned manually for concordance. If this scan disagrees with the automated IG or if promyelocytes are noted, a manual differential will be performed. Immature Gran Absolute 0.16(H) 0.00 - 0.04 x10(3)/[facility] Blood 03/08/2021 8:40 PM EDT 03/08/2021 8:49 PM EDT Narrative Resulting Agency Comment Spec In Lab Jian Olivarez MD HEMATOLOGY ORDERABLE S [facility] [place] [address] * (ABNORMAL) Hemogram (03/08/2021 8:40 PM EDT) White Blood Cell 14.5(H) 4.0 - 9.5 x10(3)/[facility] Red Blood Cell 3.29(L) 4.58 - 5.54 x10(6)/ L [facility] Hemoglobin 9.7(L) 13.7 - 16.5 gm/dL [facility] Hematocrit 29.0(L) 40.5 - 48.5 % [facility] Mean Cell Volume 88.1 82.9 - 93.1 fL [facility] Mean Cell Hemoglobin 29.5 27.5 - 32.1 pg [facility] Mean Cell Hemoglobin Concentration 33.4 32.0 - 35.7 gm/dL [facility] Platelet 187 145 - 357 x10(3)/ L [facility] RDW Standard Deviation 43.1 36.0 - 45.0 [facility] LABORATORY RDW coefficient of variation 13.2 11.4 - 13.8 % [facility] Mean Platelet Volume 10.3 7.6 - 12.9 [facility] LABORATORY NRBC% auto 0.0 % [facility] NRBC Absolute 0.000 0.000 - 0.000 x10(3)/mc L [facility] Blood 03/08/2021 8:40 PM EDT 03/08/2021 8:49 PM EDT Narrative Resulting Agency Comment Spec In Lab Jian Olivarez MD HEMATOLOGY ORDERABLE S Performing Organization Address City/[facility]/ZIP Co de Phone Number [facility] [place] [address] * Type and Screen Validity (03/08/2021 4:36 PM EDT) T&S only valid at [facility] LAB[facility]ATORY Comment:This Type and Screen result is only valid at the [facility] Blood 03/08/2021 4:36 PM EDT 03/08/2021 4:41 PM EDT Narrative Resulting Agency Comment Spec In Lab Ashanti May MD BLOOD BANK LAB ORDER MADDISON Performing Organization Address City/[facility]/ZIP Co de Phone Number [facility] [place] [address] * ABORH Recheck Status (03/08/2021 4:36 PM EDT) ABORH Type Recheck Completed [facility] Blood 03/08/2021 4:36 PM EDT 03/08/2021 4:41 PM EDT Narrative Resulting Agency Comment Spec In Lab Ashanti May MD BLOOD BANK LAB ORDER MADDISON [facility] [place] [address] * Antibody screen (03/08/2021 4:36 PM EDT) Ab Screen Interp Negative [facility] Expires at [id number] on: 03/11/2021 [facility] Blood 03/08/2021 4:36 PM EDT 03/08/2021 4:41 PM EDT Narrative Resulting Agency Comment Spec In Lab Ashanti May MD BLOOD BANK LAB ORDER MADDISON Performing Organization Address City/[facility]/ZIP Co de Phone Number [facility] [place] [address] * ABO/Rh Typing (03/08/2021 4:36 PM EDT) ABORH Type A Neg [facility] Blood 03/08/2021 4:36 PM EDT 03/08/2021 4:41 PM EDT Narrative Resulting Agency Comment Spec In Lab Ashanti May MD BLOOD BANK LAB ORDER MADDISON Performing Organization Address [facility] Co de Phone Number [facility] [place] [address] * XR Chest One View (03/08/2021 3:00 [...] who have questions please contact the health health care coach that requested your imaging first. ? Electronically signed by: Malika Thayer MD, [facility] ([phone]), at 03/08/2021 3:08 PM Narrative 03/08/2021 3:08 [...] patients who have questions please contactthe health health care coach that requested your imaging first. Electronically signed by: Malika Thayer MD, [facility]([phone]), at 03/08/2021 3:08 PM Kendall Khalil MD IMG DX ORDERABLES * EKG 12 Lead (03/08/2021 12:56 PM EDT) Ventricular rate 92 BPM MUSE SYSTEM Atrial Rate 92 BPM MUSE SYSTEM P-R Interval 180 ms MUSE SYSTEM QRS Duration 166 ms MUSE SYSTEM Q-T Interval 426 ms MUSE SYSTEM QTC Calculated (Bezet) 526 ms MUSE SYSTEM Calculated P [place] 43 degrees MUSE SYSTEM Calculated R [place] -63 degrees MUSE SYSTEM Calculated T [place] 62 degrees MUSE SYSTEM INTERPRETATION Atrial-sense d ventricular- paced rhythm Underlying normal sinus rhythm Abnormal ECG When compared with ECG of 05-MAR-2021 15:30, Vent. rate has increased BY ??19 BPM Confirmed by Devonte Newsome ([id number]) on 03/08/2021 4:10:26 PM MUSE SYSTEM 03/08/2021 12:5 6 PM EDT 03/08/2021 4:10 PM EDT Kendall Khalil MD ECG ORDERABLES MUSE SYSTEM * (ABNORMAL) Differential, Automated (03/08/2021 12:47 PM EDT) Pathologist [facility] Neutrophil % 85.5 % [facility] Neutrophil Absolute 9.55(H) 1.70 - 6.10 x10(3)/mc L [facility] Lymph % 5.6 % [facility] Lymphocytes Abs 0.6(L) 0.9 - 3.2 x10(3)/mc L [facility] Monocyte % 8.1 % [facility] Monocyte Abs 0.9 0.3 - 0.9 x10(3)/mc L [facility] Eos % 0.1 % [facility] Eosinophils Abs 0.0 0.0 - 0.4 x10(3)/mc L [facility] Basophil % 0.3 % [facility] Baso Absolute 0.0 0.0 - 0.1 x10(3)/mc L [facility] Immature Gran % 0.40 % [facility] Comment: Immature granulocytes(IG's)percentage and absolute count will include metamyelocytes, myelocytes, and promyelocytes. Blood smears from CBCs yielding IG's will be scanned manually for concordance. If this scan disagrees with the automated IG or if promyelocytes are noted, a manual differential will be performed. Immature Gran Absolute 0.05(H) 0.00 - 0.04 x10(3)/mc L [facility] Blood 03/08/2021 12:4 7 PM EDT 03/08/2021 12:57 PM EDT Narrative Resulting Agency Comment Spec In Lab Ashanti May MD HEMATOLOGY ORDERABLE S [facility] [place] [address] * (ABNORMAL) Hemogram (03/08/2021 12:47 PM EDT) White Blood Cell 11.2(H) 4.0 - 9.5 x10(3)/mc L [facility] Red Blood Cell 3.59(L) 4.58 - 5.54 x10(6)/mc L [facility] Hemoglobin 10.6(L) 13.7 - 16.5 gm/dL [facility] Hematocrit 31.6(L) 40.5 - 48.5 % [facility] Mean Cell Volume 88.0 82.9 - 93.1 fL [facility] Mean Cell Hemoglobin 29.5 27.5 - 32.1 pg [facility] Mean Cell Hemoglobin Concentration 33.5 32.0 - 35.7 gm/dL [facility] Platelet 170 145 - 357 x10(3)/mc L [facility] RDW Standard Deviation 43.1 36.0 - 45.0 fL [facility] RDW coefficient of variation 13.2 11.4 - 13.8 % [facility] Mean Platelet Volume 10.6 7.6 - 12.9 fL [facility] NRBC% auto 0.0 % [facility] NRBC Absolute 0.000 0.000 - 0.000 x10(3)/mc L [facility] Blood 03/08/2021 12:4 7 PM EDT 03/08/2021 12:57 PM EDT Narrative Resulting Agency Comment Spec In Lab Ashanti May MD HEMATOLOGY ORDERABLE S Performing Organization Address City/[facility]/ZIP Co de Phone Number [facility] [place] [address] * Phosphorus (03/08/2021 12:47 PM EDT) Phosphorus 2.7 2.5 - 4.5 mg/dL [facility] Blood 03/08/2021 12:4 7 PM EDT 03/08/2021 12:57 PM EDT Narrative Resulting Agency Comment Spec In Lab Kendall Khalil MD CHEMISTRY ORDERABLES Performing Organization Address [facility] Co de Phone Number [facility] [place] [address] * Magnesium (03/08/2021 12:47 PM EDT) Pathologist [facility] Magnesium 0.70 0.69 - 1.07 mmol/L [facility] Blood 03/08/2021 12:4 7 PM EDT 03/08/2021 12:57 PM EDT Narrative Resulting Agency Comment Spec In Lab Kendall Khalil MD CHEMISTRY ORDERABLES Performing Organization Address [facility]/ZIP Co de Phone Number [facility] [place] [address] * (ABNORMAL) Basic Metabolic Panel (non-fasting) (03/08/2021 12:47 PM EDT) Glucose 109 65 - 199 mg/dL [facility] Comment:Diabetes: >=200 mg/d L plus symptoms Blood Urea Nitrogen 12 10 - 20 mg/dL [facility] Creatinine 0.78(L) 0.80 - 1.50 mg/dL [facility] Sodium 137 135 - 145 mmol/L [facility] Potassium 4.0 3.5 - 5.0 mmol/L [facility] Comment: Please note: ??Patients with WBC >100,000 may have falsely elevated Potassium levels. ??For accurate Potassium quantification in these patients send serum separator tube (gold top) for subsequent determinations. ??Contact the Clinical Chemistry Laboratory if there are any questions. Chloride 101 98 - 107 mmol/L [facility] Carbon Dioxide 26 22 - 31 mmol/L [facility] Anion Gap 10 5 - 15 mmol/L [facility] Calcium 8.5 8.5 - 10.5 mg/dL [facility] Est Glomerular Filtration Rate 91 >=60 mL/min/1. 73 m?? [facility] Comment: This patient? s estimated [...] In Lab Kendall Khalil MD CHEMISTRY ORDERABLES [facility] [place] [address] * CT Head wo Contrast (Generic) (03/08/2021 [...] who have questions please contact the health health care coach that requested your imaging first. ? Electronically signed by: Yrn Bhatt MD, [facility] ([phone]), at 03/08/2021 11:42 AM Narrative 03/08/2021 11:42 [...] patients who have questions please contactthe health health care coach that requested your imaging first. Kendall Khalil MD IM CT ORDERABLES * (ABNORMAL) Hemogram (03/08/2021 3:56 AM EDT) White Blood Cell 9.8(H) 4.0 - 9.5 x10(3)/mc L [facility] Red Blood Cell 3.75(L) 4.58 - 5.54 x10(6)/mc L [facility] Hemoglobin 11.2(L) 13.7 - 16.5 gm/dL [facility] Hematocrit 33.6(L) 40.5 - 48.5 % [facility] Mean Cell Volume 89.6 82.9 - 93.1 fL [facility] Mean Cell Hemoglobin 29.9 27.5 - 32.1 pg [facility] Mean Cell Hemoglobin Concentration 33.3 32.0 - 35.7 gm/dL [facility] Platelet 165 145 - 357 x10(3)/mc L [facility] RDW Standard Deviation 44.4 36.0 - 45.0 fL [facility] RDW coefficient of variation 13.5 11.4 - 13.8 % [facility] Mean Platelet Volume 10.3 7.6 - 12.9 fL [facility] NRBC% auto 0.0 % [facility] NRBC Absolute 0.000 0.000 - 0.000 x10(3)/mc L [facility] Blood 03/08/2021 3:56 AM EDT 03/08/2021 4:10 AM EDT Narrative Resulting Agency Comment Spec In Lab Jian Olivarez MD HEMATOLOGY ORDERABLE S [facility] [place] [address] * (ABNORMAL) Differential, Automated (03/08/2021 3:56 AM EDT) Neutrophil % 79.2 % [facility] Neutrophil Absolute 7.71(H) 1.70 - 6.10 x10(3)/[facility] Lymph % 9.6 % [facility] Lymphocytes Abs 0.9 0.9 - 3.2 x10(3)/[facility] Monocyte % 9.1 % [facility] Monocyte Abs 0.9 0.3 - 0.9 x10(3)/[facility] Eos % 1.3 % [facility] Eosinophils Abs 0.1 0.0 - 0.4 x10(3)/[facility] Basophil % 0.4 % [facility] Baso Absolute 0.0 0.0 - 0.1 x10(3)/[facility] Immature Gran % 0.40 % [facility] Comment: Immature granulocytes(IG's)percentage and absolute count will include metamyelocytes, myelocytes, and promyelocytes. Blood smears from CBCs yielding IG's will be scanned manually for concordance. If this scan disagrees with the automated IG or if promyelocytes are noted, a manual differential will be performed. Immature Gran Absolute 0.04 0.00 - 0.04 x10(3)/[facility] Blood 03/08/2021 3:56 AM EDT 03/08/2021 4:10 AM EDT Narrative Resulting Agency Comment Spec In Lab Jian Olivarez MD HEMATOLOGY ORDERABLE S [facility] [place] [address] * XR Chest PA & Lateral (Generic) [...] who have questions please contact the health health care coach that requested your imaging first. ? Electronically signed by: Tirso Burton MD, [facility] ([phone]), at 03/08/2021 4:51 AM Narrative 03/08/2021 4:51 [...] patients who have questions please contactthe health health care coach that requested your imaging first. Electronically signed by: Tirso Burton MD, [facility]([phone]), at 03/08/2021 4:51 AM Kendall Khalil MD IMG DX ORDERABLES * APTT (03/06/2021 2:00 PM EDT) [facility] Signature Partial Thromboplastin Time 32 25 - 37 sec [facility] Comment: The PTT is NOT [...] ORDERABLE S Performing Organization Address [facility]/ZIP Co de Phone Number [facility] [place] [address] * (ABNORMAL) Prothrombin Time (03/06/2021 2:00 PM EDT) Prothrombin Time 15.9(H) 9.4 - 12.5 sec [facility] International Normalization Ratio 1.4 [facility] Comment: An INR <2.0 indicates [...] ORDERABLE S Performing Organization Address [facility]/ZIP Co de Phone Number [facility] [place] [address] * XR Chest One View (03/06/2021 1:06 [...] who have questions please contact the health health care coach that requested your imaging first. ? Electronically signed by: GERMANIA BLAIR MD, [facility] ([phone]), at 03/06/2021 2:55 PM Narrative 03/06/2021 2:55 [...] patients who have questions please contactthe health health care coach that requested your imaging first. Electronically signed by: GERMANIA BLAIR MD, [facility]([phone]), at 03/06/2021 2:55 PM Kendall Khalil MD IMG DX ORDERABLES * Specimen to Pathology (03/06/2021 10:57 AM EDT) AP Specimen 03/06/2021 10:5 7 AM EDT 03/06/2021 10:57 AM EDT Narrative [facility] - 03/06/2021 10:57 AM EDT Specimen requisition ordered. ??Separate Pathology report to follow Kendall Khalil MD PATHOLOGY/CYTOLOGY O RDERABLES [facility] [place] [address] * Surgical Pathology Report (03/06/2021 10:56 AM EDT) Final Diagnosis [id number] ? Location: [facility]; [facility]; A The signing pathologist has (i) examined the relevant preparation(s) for the specimen(s) and (ii) rendered or confirmed the diagnosis(es). . 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 Mesothelial reactive atypia and inflammation. Electronically signed by: ?Renetta Fraga DO Verified: ??03/12/2021 8:34 ?? Pathologist Performed at: ??-[facility] [place], [place], [place] ADDITIONAL STUDIES Immunohistochemistry Studies: Formalin-fixed, paraffin-embedded [...] occupies 80% of the parenchymal volume. Sections/Processing: Tree Feller Operator sections in 4 cassettes as follows: ?A1: ??Stapled parenchymal margin, en face ?A2-A4: ??Tree Feller Operator parenchyma with bleb and adhesions ??erjg 03/12/2021 8:34 AM EDT [facility] LUNG STRUCTURE / Unknown 03/06/2021 10:56 AM EDT 03/06/2021 10:56 AM EDT Kendall Khalil MD PATHOLOGY/CYTOLOGY O RDERABLES [facility] [place] [address] * Prepare thawed plasma (03/06/2021 7:20 AM EDT) Dispensed? Yes [facility] Blood specimen (specimen) 03/06/2021 7:20 AM EDT 03/06/2021 7:17 AM EDT Narrative Resulting Agency Comment Spec In Lab Kendall Khalil MD BLOOD BANK PRODUCT O RDERABLES [facility] [place] [address] * (ABNORMAL) Prothrombin Time (03/06/2021 4:50 AM EDT) Prothrombin Time 20.6(H) 9.4 - 12.5 sec [facility] International Normalization Ratio 1.8 [facility] Comment: An INR <2.0 indicates [...] MD HEMATOLOGY ORDERABLE S Performing Organization Address City/[facility]/ZIP Co de Phone Number [facility] [place] [address] * SCAN DOC: LAB (03/06/2021 12:00 AM EDT) Narrative 03/06/2021 12:00 AM EDT Ordered by an unspecified provider. Scanning Provider MEDIA MGR SCAN EXT O RDR/RSLT * Type and Screen Validity (03/05/2021 6:10 PM EDT) T&S only valid at [facility] Comment:This Type and Screen result is only valid at the [facility] Blood specimen (specimen) 03/05/2021 6:10 PM EDT 03/05/2021 6:15 PM EDT Narrative Resulting Agency Comment Spec In Lab Kenneth Newby MD BLOOD BANK LAB ORD ERABLES [facility] [place] [address] * ABORH Recheck Status (03/05/2021 6:10 PM EDT) ABORH Recheck Order Order Placed [facility] ABORH Type Recheck Complete [facility] Blood specimen (specimen) 03/05/2021 6:10 PM EDT 03/05/2021 6:15 PM EDT Narrative Resulting Agency Comment Spec In Lab Kenneth Newby MD BLOOD BANK LAB ORD ERABLES Performing Organization Address [facility]/ZIP Co de Phone Number [facility] [place] [address] * Antibody screen (03/05/2021 6:10 PM EDT) Ab Screen Interp Negative [facility] Expires at [id number] on: 03/08/2021 [facility] Blood specimen (specimen) 03/05/2021 6:10 PM EDT 03/05/2021 6:15 PM EDT Narrative Resulting Agency Comment Spec In Lab Kenneth Newby MD BLOOD BANK LAB ORD ERABLES Performing Organization Address City/[facility]/ZIP Co de Phone Number [facility] [place] [address] * ABO/Rh Typing (03/05/2021 6:10 PM EDT) ABORH Type A Neg [facility] Blood specimen (specimen) 03/05/2021 6:10 PM EDT 03/05/2021 6:15 PM EDT Narrative Resulting Agency Comment Spec In Lab Kenneth Newby MD BLOOD BANK LAB ORD ERABLES [facility] [place] [address] * Differential, Automated (03/05/2021 4:21 PM EDT) Pathologist [facility] Neutrophil % 68.0 % [facility] Neutrophil Absolute 4.90 1.70 - 6.10 x10(3)/[facility] Lymph % 17.1 % [facility] Lymphocytes Abs 1.2 0.9 - 3.2 x10(3)/[facility] Monocyte % 9.4 % [facility] Monocyte Abs 0.7 0.3 - 0.9 x10(3)/[facility] Eos % 4.6 % [facility] Eosinophils Abs 0.3 0.0 - 0.4 x10(3)/[facility] Basophil % 0.8 % [facility] Baso Absolute 0.1 0.0 - 0.1 x10(3)/[facility] Immature Gran % 0.10 % [facility] Comment: Immature granulocytes(IG's)percentage and absolute count will include metamyelocytes, myelocytes, and promyelocytes. Blood smears from CBCs yielding IG's will be scanned manually for concordance. If this scan disagrees with the automated IG or if promyelocytes are noted, a manual differential will be performed. Immature Gran Absolute 0.01 0.00 - 0.04 x10(3)/[facility] Blood specimen (specimen) 03/05/2021 4:21 PM EDT 03/05/2021 4:37 PM EDT Narrative Resulting Agency Comment Spec In Lab Kota Leyva MD HEMATOLOGY ORDERABLE S [facility] [place] [address] * (ABNORMAL) Hemogram (03/05/2021 4:21 PM EDT) Pathologist [facility] White Blood Cell 7.2 4.0 - 9.5 x10(3)/[facility] Red Blood Cell 4.60 4.58 - 5.54 x10(6)/mc L [facility] Hemoglobin 13.7 13.7 - 16.5 gm/dL [facility] Hematocrit 40.4(L) 40.5 - 48.5 % [facility] Mean Cell Volume 87.8 82.9 - 93.1 fL [facility] Mean Cell Hemoglobin 29.8 27.5 - 32.1 pg [facility] Mean Cell Hemoglobin Concentration 33.9 32.0 - 35.7 gm/dL [facility] Platelet 197 145 - 357 x10(3)/mc L [facility] RDW Standard Deviation 44.7 36.0 - 45.0 [facility]ORATORY RDW coefficient of variation 13.8 11.4 - 13.8 % [facility] Mean Platelet Volume 10.0 7.6 - 12.9 fL [facility] NRBC% auto 0.0 % [facility] NRBC Absolute 0.000 0.000 - 0.000 x10(3)/mc L [facility] Blood specimen (specimen) 03/05/2021 4:21 PM EDT 03/05/2021 4:37 PM EDT Narrative Resulting Agency Comment Spec In Lab Kota Leyva MD HEMATOLOGY ORDERABLE S [facility] [place] [address] * (ABNORMAL) Basic Metabolic Panel (non-fasting) (03/05/2021 4:21 PM EDT) Glucose 96 65 - 199 mg/dL [facility] Comment:Diabetes: >=200 mg/d L plus symptoms Blood Urea Nitrogen 23(H) 10 - 20 mg/dL [facility] Creatinine 0.90 0.80 - 1.50 mg/dL [facility] Sodium 138 135 - 145 mmol/L [facility] Potassium 4.5 3.5 - 5.0 mmol/L [facility] Comment: Please note: ??Patients with WBC >100,000 may have falsely elevated Potassium levels. ??For accurate Potassium quantification in these patients send serum separator tube (gold top) for subsequent determinations. ??Contact the Clinical Chemistry Laboratory if there are any questions. Chloride 101 98 - 107 mmol/L [facility] Carbon Dioxide 27 22 - 31 mmol/L [facility] Anion Gap 10 5 - 15 mmol/L [facility] Calcium 9.2 8.5 - 10.5 mg/dL [facility] Est Glomerular Filtration Rate 86 >=60 mL/min/1. 73 m?? [facility] Comment: This patient? s estimated [...] Lab Kenneth Newby MD CHEMISTRY ORDERABL ES [facility] [place] [address] * (ABNORMAL) APTT (03/05/2021 4:21 PM EDT) Partial Thromboplastin Time 44(H) 25 - 37 sec [facility] Comment: The PTT is NOT [...] ORDERAB LES Performing Organization Address [facility] de Phone Number [facility] [place] [address] * (ABNORMAL) Prothrombin Time (03/05/2021 4:21 PM EDT) Pathologist [facility] Prothrombin Time 24.3(H) 9.4 - 12.5 sec [facility] International Normalization Ratio 2.1 [facility] Comment: An INR <2.0 indicates [...] ORDERAB LES Performing Organization Address [facility] de Phone Number [facility] [place] [address] * COVID-19 PCR (03/05/2021 3:52 PM EDT) Pathologist [facility] SARS-CoV-2 RNA (Rapid) Not Detected Not Detected [facility] Comment: This result should be [...] using the Simplexa COVID-19 Direct Assay by [employer] as authorized by the FDA issued [...] Department of Pathology and Laboratory Medicine at [facility], certified under the Clinical Laboratory Improvement [...] fact sheets at the following FDA website: https://www.fda.gov/medical-devices/wptofwoqalq-irkxcdz-6586-iprhp-29-uyezrttka- use-a kzofaqguzahfc-omevusc-aarfsts/vmjaq-szxzdxncouq-xppj SARS-CoV-2 Source SIDE GLUER Swab FRANCISCO JAVIER LEÓN [facility] Nasopharyngeal swab (specimen) 03/05/2021 3:52 PM EDT 03/05/2021 4:43 PM EDT Comment:Symptoms->Surveillan ce Narrative Resulting Agency Comment Spec In Lab Kenneth Newby MD MICROBIOLOGY - GEN ERAL ORDERABLES [facility] [place] [address] * EKG 12 Lead (03/05/2021 3:30 PM EDT) Ventricular rate 73 BPM MUSE SYSTEM Atrial Rate 73 BPM MUSE SYSTEM P-R Interval 178 ms MUSE SYSTEM QRS Duration 176 ms MUSE SYSTEM Q-T Interval 476 ms MUSE SYSTEM QTC Calculated (Bezet) 524 ms MUSE SYSTEM Calculated P [place] 30 degrees MUSE SYSTEM Calculated R [place] -103 degrees MUSE SYSTEM Calculated T [place] 62 degrees MUSE SYSTEM INTERPRETATION Atrial-sens ed [...] Provider: Lexie Cordova)[phone] (Given - Provider: Jodie Mojiac RN)[phone] (Given - Provider: Avril East RN) [...] RN)[phone] (Given - Provider: Avril East, DAVIN) [phone] [...] Routine documented in this encounter Care Teams Air Operations Manager Relationship Specialty Start Date End Date Linda Mccray MD [address] [place] [address] PCP - General Family Medicine 10/20/16 documented as of this encounter
--- OUTSIDE RECORDS SUMMARY | 2024-08-30 13:33 | XMS_ITS | Encounter Summary ---
Author Organization [facility] [place] [address] Care Team Providers Care Distribution Agent Name Role Phone Linda Mccray MD Primary Care Provider [phone] Reason for Visit * Reason Comments Hospital Transfer Shortness of Breath * Auth/Cert Specialty Diagnoses / Procedures Referred By Contac t Referred To Contact Diagnoses Recurrent spontaneous pneumothorax LARGE LEFT PNEUMOTHORAX Referral ID Status Reason Start Date Expiration Date Visits Re quested Visits Authorized [id number] 1 1 Encounter Details Date Type Department Care Team (Late st Contact Info) Description 03/09/2021 7:58 AM EDT - 03/09/2021 1:26 PM EDT Surgery [place] [id number] Kendall Khalil MD [facility] [place] [address] @THORACOSCOPY, SURG; W PART. DECORTICATION (WRVU 18.78) [...] depletion Added automatically from request for surgery [id number] ??? Chronic bullous emphysema ??? Clostridium difficile [...] s/p pacemaker who presents as transfer from [facility] for surgical treatment of recurrent spontaneous left pneumothorax. ?? Reports sudden onset of SOB on Monday which he knew felt like his prior ptx and presented to [facility] for treatment. Hospitalized at [facility] from 03/03 until today when he was transferred to [facility] for further management of his recurrent PTX. Had L-sided CT placed at [facility], with continuous air-leak since admission. Pt reports this is his fourth ptx, first occurred 2 years ago after multiple broken ribs in curred by slip and fall on ice. The 2nd and 3rd ptx were non-traumatic and one was attributed to lifting heavy item. Since CT placed at [facility] SOB has improved. ?? Coumadin last taken morning of 03/04/21. Normal coumadin dose 10mg qd. He last ate at noon today. ?? On assessment in the ED: He is HDS, on RA and in no distress. He endorses no complaints. Hospital Course: London Neri was admitted to [place] on 03/05/2021 viathe ED. He was brought [...] Monday03/15/21. Primary Care Doctor: Linda Mccray MD [phone] [facility] Anticoagulation Clinic: [phone] Warfarin (Coumadin??) should be taken at the same time every day, usually at 5pm. Your next INR should be scheduled on: Monday AM March 15, 2021 by Provider listed below Provider/Team responsible for your outpatient Coumadin?? (warfarin) management: Primary Care Physician/Anticoagulation Clinic at [facility]. ??? If you have not [...] a nurse in the Thoracic Clinic at [phone]. After hours or on weekends or holidays please call: [phone] and ask to speak to the Thoracic [...] the Thoracic Clinic or the Thoracic Surgeon shank boner after hours. Please take over the counter [...] Where can you learn more? Visit our Bilna information library at [email or web address] You can also view health information on [facility], your personal patient account. Log in or sign uptoday. Enter U010 in the search box to learn more about Learning About Indwelling Urinary Catheter Care to Prevent Infection. Current as of: April 20, 2020?Content Version: 12.8 ?? Apttus. Care instructions adapted under license by [facility]. If you have questions about a medical condition or this instruction, always ask your healthcare professional. [employer] disclaims any warranty or liability for your [...] more? Visit our health information library at [email or web address] You can also view health information on [facility], your personal patient account. Log in or sign uptoday. Enter X535 in the search box to learn more about Learning About How to Care for a Person's Indwelling Urinary Catheter. Current as of: May 08, 2020?Content Version: 12.8 ?? Apttus. Care instructions adapted under license by [facility]. If you have questions about a medical condition or this instruction, always ask your healthcare professional. [employer] disclaims any warranty or liability for your use of this information. Future Appointments and Orders Future Orders Complete By Expires XR Chest PA & Lateral (Generic) [[id number] Custom] 03/27/2021 (Approximate) 03/13/2022 Process Instructions: Scheduling Instructions: Questions: Where will study be performed?: [facility] Radiology Portable exam?: Reason for exam and clinical history: s/p LVATS partial decort, blebectomy, talc pleurodesis c/b hemothorax s/p re-op LVATS washout Clinical information / sunshine questions: PTX, effusion, lung appostion, comparison Stat read required?: Date of injury if applicable: Requested Time: Walker standard [EQ135 Custom] As directed Process Instructions: Scheduling Instructions: Comments: London Pisano Daron [address] [facility] [id number] (home) [phone] (mobile) Diagnosis: deconditioning with Unsteady gait Significant weakness, ataxia or gait abnormality Patient's: Hgt: Ht Readings from Last 1 Encounters: 03/05/21 : 185.4 cm (6' 1) ? Wgt: Wt Readings from Last 1 Encounters: 03/13/21 : 81.6 kg (180 lb) VENDOR: [facility] Ordering: Front wheel walker Deliver to [facility] room #: 327A Questions: Vendor Name/Contact information: [facility] Provider Contact Information: Primary Care Provider: Linda Mccray MD [phone] Discharge References/Attachments: Discharge References/Attachments None For questions regarding this document or issues relating to this hospitalization on the Thoracic Surgery Service, please contact Dr. Khalil's office at . Signed: Jeff Almendarez MD 03/13/2021 CC: PCP: Linda Mccray MD Referring: Marii Kenyon Md [address] [place] [address] documented in this encounter Discharge Instructions * [...] Where can you learn more? Visit our Bilna information library at [email or web address] You can also view health information on [facility], your personal patient account. Log in or sign uptoday. Enter U010 in the search box to learn more about Learning About Indwelling Urinary Catheter Care to Prevent Infection. Current as of: April 20, 2020?Content Version: 12.8 ?? 5416-8919 Apttus. Care instructions adapted under license by [facility]. If you have questions about a medical condition or this instruction, always ask your healthcare professional. [employer]us disclaims any warranty or liability for your [...] Where can you learn more? Visit our Bilna information library at [email or web address] You can also view health information on [facility], your personal patient account. Log in or sign uptoday. Enter X535 in the search box to learn more about Learning About How to Care for a Person's Indwelling Urinary Catheter. Current as of: May 08, 2020?Content Version: 12.8 ?? 7662-7320 Apttus. Care instructions adapted under license by [facility]. If you have questions about a medical condition or this instruction, always ask your healthcare professional. [employer] disclaims any warranty or liability for your [...] Monday03/15/21. Primary Care Doctor: Linda Mccray MD [phone] [facility] Anticoagulation Clinic: [phone] Warfarin (Coumadin??) should be taken at the same time every day, usually at 5pm. Your next INR should be scheduled on: Monday AM March 15, 2021 by Provider listed below Provider/Team responsible for your outpatient Coumadin?? (warfarin) management: Primary Care Physician/Anticoagulation Clinic at [facility]. ??? If you have not [...] a nurse in the Thoracic Clinic at [phone]. After hours or on weekends or holidays please call: [phone] and ask to speak to the Thoracic [...] the Thoracic Clinic or the Thoracic Surgeon shank boner after hours. Please take over the counter [...] approximately 1830 that they were unable to picker patient's Lovenox from pharmacy after patient was discharged, and that the pharmacy is now closed. With assistance from Dr. Jeff Almendarez, was able to arrange for patient to present at ED in [facility] to receive his 80 mg dose of Lovenox this evening and picker his regular prescription on Monday morning [...] from the original note were not included. [facility] Department of Thoracic Surgery Inpatient Progress Note Patient Name: London Neri Patient : 1950 Patient Patient Location: [address] [place] [address]- Attending Surgeon: KENNETH NEWBY DAVID J ID: [...] to Hosp-Admission (Current) from 03/05/2021 in 3 [facility] Office Visit from 08/10/2020 in Cardiology at [facility] Weight 81.7 kg (180 lb 3.2 oz) [...] May MD 03/12/2021 Thoracic Surgery Service Pager [phone] * Mayra Scales, SHEET ROLLER OPERATOR - 03/12/2021 11:55 AM EDT Physical Therapy Note Treatment Number PT: 2 Patient profile: London Neri??is a 70 y.o.??male admittted 03/05/21??with PMHx significant for recurrent spontaneous pneumothorax, CHF, mitral and aortic mechanical valves (both placed 1998, on coumadin), s/p pacemaker who presents as transfer from [facility] for surgical treatment of recurrent spontaneous left pneumothorax. ?? Reports sudden onset of SOB on Monday which he knew felt like his prior ptx and presented to [facility] for treatment. ??Hospitalized at [facility] from 03/03 until today when he was transferred to [facility] for further management of his recurrent PTX. Had L-sided CT placed at [facility], with continuous air-leak sinceadmission. Pt reports this is his fourth ptx, first occurred 2 years ago after multiple broken ribsincurred by slip and fall on ice. The 2nd and 3rd ptx were non-traumatic and one was attributed to lifting heavy item. Since CT placed at [facility] SOB has improved. S/p L VATS [...] (TE-F x 2) MAYRA SCALES PTA Pager: [phone] Physical Therapy Inpatient Rehabilitation Department * Avril [...] Mccauley APRN - 03/11/2021 9:53 AM EDT [facility] Department of Thoracic Surgery Inpatient Progress Note Patient Name: London Neri Patient : 1950 Patient Patient Location: [address] [place] [address]- Attending Surgeon: KENNETH NEWBY DAVID J ID: [...] to Hosp-Admission (Current) from 03/05/2021 in 3 [facility] Office Visit from 08/10/2020 in Cardiology at [facility] Weight 59.6 kg (131 lb 4.8 oz) [...] QTC Calculated (Bezet) 526 ms Calculated P [place] 43 degrees Calculated R [place] -63 degrees Calculated T [place] 62 degrees INTERPRETATION Atrial-sensed ventricular-paced rhythm Underlying normal sinus rhythm Abnormal ECG When compared with ECG of 05-MAR-2021 15:30, Vent. rate has increased BY 19 BPM Confirmed by Devonte Newsome ([id number]) on 03/08/2021 4:10:26 PM ABO/Rh Typing Result Value Ref Range ABORh Type A Neg Antibody screen Result Value Ref Range Ab Screen Interp Negative Expires at 2359 on: 03/11/2021 ABORH Recheck Status Result Value Ref Range ABORH Type Recheck Completed Type and Screen Validity Result Value Ref Range T&S only valid at [facility] Hosp Hemogram Result Value Ref Range WBC [...] Dispo: full code, floor status Malorie Mccauley, GEOSPATIAL INTELLIGENCE ANALYST 03/11/2021 Thoracic Surgery Service Pager [phone] * Lexie Cordova - 03/10/2021 9:57 PM [...] s/p pacemaker who presents as transfer from [facility] for surgical treatment of recurrent spontaneous left pneumothorax. ?? Reports sudden onset of SOB on Monday which he knew felt like his prior ptx and presented to [facility] for treatment. Hospitalized at [facility] from 03/03 until today when he was transferred to [facility] for further management of his recurrent PTX. Had L-sided CT placed at [facility], with continuous air-leak since admission. Pt reports this is his fourth ptx, first occurred 2 years ago after multiple broken ribs in curred by slip and fall on ice. The 2nd and 3rd ptx were non-traumatic and one was attributed to lifting heavy item. Since CT placed at [facility] SOB has improved. S/p L VATS [...] 2.78) performed by Kendall Khalil MD at [facility] MAIN OR ??? PRO COLONOSCOPY, REMV LESN, SNARE N/A 01/26/2017 COLONOSCOPY, POLYPECTOMY, REMOVAL LESION BY SNARE (WRVU 4.67) performed by Lena Clark MD at [facility] ENDOSCOPY ??? PRO THORACOSCOPY SURG PART PULM DECORT Left 03/06/2021 @THORACOSCOPY, SURG; W PART. DECORTICATION (WRVU 18.78) performed by Kendall Khalil MD at [facility] MAIN OR ??? PRO THORACOSCOPY SURG W/PLEURODESIS Left 03/06/2021 @THORACOSCOPY, SURG; W PLEURODESIS (WRVU 10.83) performed by Kendall Khalil MD at [facility] MAIN OR ??? PRO THORACOSCOPY W RESECTION-PLICATION EMPHYSEMA LUNG UNILATERAL Left 03/06/2021 @THORACOSCOPY, SURG; W/RESC-PLICATION EMPHYSEMATOUS LUNG, UNILATERAL (WRVU 27) performed by Kendall Khalil MD at [facility] MAIN OR Active Non-Hospital Problems Diagnosis [...] B shoulders at least 3/5 and good pharmaceutical physician. B ankles and knees 4-4+/5. Sensory: denies [...] outlinedin this evaluation. Time IN / OUT: 0719-1912 Total Minutes, Physical Therapy: 25 (Mod EV) RUMA BONE, PT Pager: [phone] Physical Therapy Inpatient Rehabilitation Department * Joseph [...] 2.78) performed by Kendall Khalil MD at [facility] MAIN OR ??? PRO COLONOSCOPY, REMV LESN, SNARE N/A 01/26/2017 COLONOSCOPY, POLYPECTOMY, REMOVAL LESION BY SNARE (WRVU 4.67) performed by Lena Clark MD at [facility] ENDOSCOPY ??? PRO THORACOSCOPY SURG PART PULM DECORT Left 03/06/2021 @THORACOSCOPY, SURG; W PART. DECORTICATION (WRVU 18.78) performed by Kendall Khalil MD at [facility] MAIN OR ??? PRO THORACOSCOPY SURG W/PLEURODESIS Left 03/06/2021 @THORACOSCOPY, SURG; W PLEURODESIS (WRVU 10.83) performed by Kendall Khalil MD at [facility] MAIN OR ??? PRO THORACOSCOPY W RESECTION-PLICATION EMPHYSEMA LUNG UNILATERAL Left 03/06/2021 @THORACOSCOPY, SURG; W/RESC-PLICATION EMPHYSEMATOUS LUNG, UNILATERAL (WRVU 27) performed by Kendall Khalil MD at [facility] MAIN OR Social History: Patient lives [...] & Perception: ?? WNL/WFL ?? 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 Pager: [phone] Joseph Vidales OT 03/10/2021 Occupational Therapy Rehabilitation [...] dizziness due to acute blood loss anemia. [facility] Department of Thoracic Surgery Inpatient Progress Note Patient Name: London Neri Patient : 1950 [facility] Attending Surgeon: KENNETH NEWBY DAVID J [...] to Hosp-Admission (Current) from 03/05/2021 in 3 [facility] Office Visit from 08/10/2020 in Cardiology at [facility] Weight 82 kg (180 lb 12.8 oz) [...] QTC Calculated (Bezet) 526 ms Calculated P [place] 43 degrees Calculated R [place] -63 degrees Calculated T [place] 62 degrees INTERPRETATION Atrial-sensed ventricular-paced rhythm Underlying normal sinus rhythm Abnormal ECG When compared with ECG of 05-MAR-2021 15:30, Vent. rate has increased BY 19 BPM Confirmed by Devonte Newsome ([id number]) on 03/08/2021 4:10:26 PM ABO/Rh Typing Result Value Ref Range ABORh Type A Neg Antibody screen Result Value Ref Range Ab Screen Interp Negative Expires at 2359 on: 03/11/2021 ABORH Recheck Status Result Value Ref Range ABORH Type Recheck Completed Type and Screen Validity Result Value Ref Range T&S only valid at [facility] Hemogram Result Value Ref Range WBC [...] May MD 03/10/2021 Thoracic Surgery Service Pager [phone] * Myrna Ludwig APRN - 03/10/2021 8:35 AM EDT Cardiac Device Remote Monitoring Report Summary Nimbus Conceptstronic Manpacks 03/10/21 Device: Pacemaker Model: Maral Battery: 3.10 v, estimated longevity ~10.5 years Pacing percentage: AP 0.2%, PRODUCT DEMONSTRATOR 99.9% Current EGM: ,AR/PRODUCT DEMONSTRATOR. Atrial rate 240 bpm, ventricular rate 60 bpm. Events: AT/AF >=6 hr for 1 day. Patient activity less than 1 hr/day for 1 week Atrial high rate events: 1 AT/AF since 03/09/21 @ 10:55am, episode in progress. AT/AF [place] 10.8%. Rate histogram: Time in AT/AF = [...] in-clinic and remote Myrna Ludwig APRN Pager [phone] * Ross Mohan RN - 03/09/2021 7:42 [...] factors per assessment: [current deficits]: Generalized weakness, [id number] of OR, pain, dizziness, medications, hospitalization and [...] was informed to hold. Page out to [id number] to clarify, Call returned to clarify the ok to give the Heparin and ASA. Given per MD order. * Pardeep Lima PA - 03/09/2021 2:48 PM EDT [facility] Department of Thoracic Surgery Inpatient Post Op Check Note Patient Name: London Neri Patient : 1950 Patient Patient Location: [address] [place] [address] Attending Surgeon: KENNETH NEWBY DAVID J ID: [...] to Hosp-Admission (Current) from 03/05/2021 in 3 [facility] Office Visit from 08/10/2020 in Cardiology at [facility] Weight 79.7 kg (175 lb 11.2 oz) [...] QTC Calculated (Bezet) 526 ms Calculated P [place] 43 degrees Calculated R [place] -63 degrees Calculated T [place] 62 degrees INTERPRETATION Atrial-sensed ventricular-paced rhythm Underlying normal sinus rhythm Abnormal ECG When compared with ECG of 05-MAR-2021 15:30, Vent. rate has increased BY 19 BPM Confirmed by Devonte Newsome ([id number]) on 03/08/2021 4:10:26 PM ABO/Rh Typing Result Value Ref Range ABORh Type A Neg Antibody screen Result Value Ref Range Ab Screen Interp Negative Expires at 2359 on: 03/11/2021 ABORH Recheck Status Result Value Ref Range ABORH Type Recheck Completed Type and Screen Validity Result Value Ref Range T&S only valid at [facility] Hemogram Result Value Ref Range WBC [...] [place] 03/09/2021 Thoracic Surgery Service Pager [phone] * Ross Mohan RN - 03/09/2021 2:20 [...] from the original note were not included. [facility] Department of Thoracic Surgery Inpatient Progress Note [place] [address] [place] [address] FAX: Patient Name: London Neri Patient : 1950 Patient Patient Location: [address] [place] [address] Thoracic surgery attending: Dr. Khalil HPI: London Neri is a 70 y.o. male with PMHx significant for recurrent spontaneous pneumothorax, chronic CHF, mitral and aortic mechanical valves (both placed 1998, on coumadin), s/p pacemaker who presents as transfer from [facility] for surgical treatment of recurrent spontaneous left pneumothorax. Reports sudden onset of SOB on Monday which he knew felt like his prior ptx and presented to [facility] for treatment. Hospitalized at [facility] from 03/03 until today when he was transferred to [facility] for further management of his recurrent PTX. Had L-sided CT placed at [facility], with continuous air-leak since admission. Pt reports this is his fourth ptx, first occurred 2 years ago after multiple broken ribs in curred by slip and fall on ice. The 2nd and 3rd ptx were non-traumatic and one was attributed to lifting heavy item. Since CT placed at [facility] SOB has improved. Coumadin last taken [...] to Hosp-Admission (Current) from 03/05/2021 in 3 [facility] Office Visit from 08/10/2020 in Cardiology at [facility] Weight 79.7 kg (175 lb 11.2 oz) [...] QTC Calculated (Bezet) 526 ms Calculated P [place] 43 degrees Calculated R [place] -63 degrees Calculated T [place] 62 degrees INTERPRETATION Atrial-sensed ventricular-paced rhythm Underlying normal sinus rhythm Abnormal ECG When compared with ECG of 05-MAR-2021 15:30, Vent. rate has increased BY 19 BPM Confirmed by Devonte Newsome ([id number]) on 03/08/2021 4:10:26 PM ABO/Rh Typing Result Value Ref Range ABORh Type A Neg Antibody screen Result Value Ref Range Ab Screen Interp Negative Expires at 2359 on: 03/11/2021 ABORH Recheck Status Result Value Ref Range ABORH Type Recheck Completed Type and Screen Validity Result Value Ref Range T&S only valid at [facility] Hemogram Result Value Ref Range WBC [...] May MD 03/09/2021 Thoracic Surgery Service Pager [phone] * Margarita Becerra PT - 03/09/2021 8:01 AM EDT Physical Therapy 03/09/21 0801 Physical Therapy Time and Intention Document Type contact Mode of Treatment physical therapy Total Minutes, Physical Therapy 0 Comment, Session Not Performed Pt being taken to the OR urgently for exploratory thoracotomy. PT tofollow post-op per MD orders. MARGARITA BECERRA, PT Pager # [phone] In-Pt Rehab Medicine * Freya Cedeño MSW - 03/08/2021 2:57 PM EDT [employer]FFEE BLENDER received call from pt's . She reports that the pt goes by Gonzalo. She was able to provide thefollowing information: - Pt lives at address on file; several steps to enter the apartment and then single floor living. 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 GREEN COFFEE BLENDER informed her that MD will also call by the end of the day. reports that her cell phone is not working and she is available at the house number. Received second call around 3pm: - stating that she will be coming to [facility] and is asking about local hotels. GREEN [employer]FFEE BLENDER informed of [facility] ([facility] currently closed). interested in staying at [facility]. GREEN COFFEE BLENDER phone call to [facility] ([phone]), they report that they have availability. GREEN COFFEE BLENDER phone call to , provided her with [...] SpO2 92 % Joseph Vidales OT Pager: [phone] * Margarita Becerra PT - 03/08/2021 2:00 [...] deferred until tomorrow MARGARITA BECERRA, PT Pager [phone] In-Pt Rehab Medicine * Ashanti May MD [...] - 03/08/2021 10:59 AM EDT London Neri [id number] 1950 Additional Information: patient on bedside commode, staff with patient at time of fall but not ableto catch patient. Patient reported nausea and dizziness, then patient lunged forward, fell onto floor, hit head. Patient endorses LOC/passing out while on bedside commode, before hitting floor. Date of Fall: 03/08/2021 Time of Fall: 1130 Unit/Location: [address] [place] Room Number: 326B Provide a brief factual [...] small localized frontal head swelling and cut. SOFTWARE PACKAGER called?: No Suspected intentional fall?: No Was [...] from the original note were not included. [facility] Department of Thoracic Surgery Inpatient Progress Note [place] [address] [place], [place] [address] FAX: Patient Name: London Neri Patient : 1950 Patient Patient Location: [address] [place] [address] Thoracic surgery attending: Dr. Khalil HPI: London Neri is a 70 y.o. male with PMHx significant for recurrent spontaneous pneumothorax, chronic CHF, mitral and aortic mechanical valves (both placed 1998, on coumadin), s/p pacemaker who presents as transfer from [facility] for surgical treatment of recurrent spontaneous left pneumothorax. Reports sudden onset of SOB on Monday which he knew felt like his prior ptx and presented to [facility] for treatment. Hospitalized at [facility] from 03/03 until today when he was transferred to [facility] for further management of his recurrent PTX. Had L-sided CT placed at [facility], with continuous air-leak since admission. Pt reports this is his fourth ptx, first occurred 2 years ago after multiple broken ribs in curred by slip and fall on ice. The 2nd and 3rd ptx were non-traumatic and one was attributed to lifting heavy item. Since CT placed at [facility] SOB has improved. Coumadin last taken [...] to Hosp-Admission (Current) from 03/05/2021 in 3 [facility] Office Visit from 08/10/2020 in Cardiology at [facility] Weight 79.7 kg (175 lb 11.2 oz) [...] QTC Calculated (Bezet) 524 ms Calculated P [place] 30 degrees Calculated R [place] -103 degrees Calculated T [place] 62 degrees INTERPRETATION Atrial-sensed ventricular-paced rhythm Abnormal ECG When compared with ECG of 11-SEP-2007 16:25, Ventricular-paced rhythm is now present Confirmed by MD Emelina, Jordana Blanca ([id number]) on 03/07/2021 3:16:02 PM COVID-19 PCR Specimen: Nasopharyngeal Swab Symptoms->Surveillance Result Value Ref Range Rapid SARS-CoV-2 RNA Not Detected Not Detected SARS-CoV-2 Source METER CALIBRATOR Swab Prothrombin Time Result Value Ref Range [...] Range T&S only valid at [facility] Hosp Prothrombin Time Result Value Ref Range [...] [place] Chaudhry 03/08/2021 Thoracic Surgery Service Pager [phone] * Avril East RN - 03/07/2021 5:32 [...] maintained, clear yellow urine throughout shift. LBM SHEET ROLLER OPERATOR, bowel meds given. OOB to walk [...] Report called to Avril JIN, [facility] * Hardeep Cool DO - 03/06/2021 [...] RNA Not Detected Not Detected SARS-CoV-2 Source METER CALIBRATOR Swab Prothrombin Time Result Value Ref Range [...] Value Ref Range T&S only valid at [facility] Prothrombin Time Result Value Ref Range [...] PM EDT Cardiac Device Interrogation London Neri [id number] 03/06/2021 History: Mr. Neri is a 70 yo male with a history of HTN, mechanical aortic and mitral valve [id number], on chronic Coumadin with INR goal 2.5-3.5, [...] tube placement, who presented to [facility] on 03/05/2021s transfer from [facility] for surgical treatment of recurrent spontaneous left pneumothorax. He underwent Left VATS partial decortication, blebectomy and talc pleurodesis on 03/06/2021. We were asked to interrogate device following intraoperative magnet application and ventricular tachycardia reported on telemetry frantz-procedurally. Device Interrogation: Data: Generator: [id number] [id number] serial# [id number] implant 07/31/2020 RV lead: Medtronic [id number] serial# [id number]; implanted 09/26/2008 RA lead: Medtronic [id number] serial# [id number]; implanted 09/26/2008 Diagnostics Pacing Mode: DDDR 60/120/120; PAV 180, EULA 150, Mode Switch 171 Presenting EGMs: -PRODUCT DEMONSTRATOR Underlying Rhythm: CHB with no sensed R [...] clinic as scheduled [place] Cain 03/06/2021 Pager: [phone] * Avril East RN - 03/06/2021 7:30 [...] from the original note were not included. [facility] Department of Thoracic Surgery Inpatient Progress Note [facility] [address] [place] [address] FAX: Patient Name: London Neri Patient : 1950 Patient Patient Location: [address] [place] [address] Thoracic surgery attending: Dr. Khalil HPI: London Neri is a 70 y.o. male with PMHx significant for recurrent spontaneous pneumothorax, CHF,mitral and aortic mechanical valves (both placed 1998, on coumadin), s/p pacemaker who presents as transfer from [facility] for surgical treatment of recurrent spontaneous left pneumothorax. Reports sudden onset of SOB on Monday which he knew felt like his prior ptx and presented to [facility] for treatment. Hospitalized at [facility] from 03/03 until today when he was transferred to [facility] for further management of his recurrent PTX. Had L-sided CT placed at [facility], with continuous air-leak since admission. Pt reports this is his fourth ptx, first occurred 2 years ago after multiple broken ribs in curred by slip and fall on ice. The 2nd and 3rd ptx were non-traumatic and one was attributed to lifting heavy item. Since CT placed at [facility] SOB has improved. Coumadin last taken [...] to Hosp-Admission (Current) from 03/05/2021 in 3 [facility] Office Visit from 08/10/2020 in Cardiology at [facility] Weight 76.4 kg (168 lb 6.4 oz) [...] QTC Calculated (Bezet) 524 ms Calculated P [place] 30 degrees Calculated R [place] -103 degrees Calculated T [place] 62 degrees INTERPRETATION Atrial-sensed ventricular-paced rhythm Abnormal ECG When compared with ECG of 11-SEP-2007 16:25, Electronic ventricular pacemaker has replaced Sinus rhythm COVID-19 PCR Specimen: Nasopharyngeal Swab Symptoms->Surveillance Result Value Ref Range Rapid SARS-CoV-2 RNA Not Detected Not Detected SARS-CoV-2 Source METER CALIBRATOR Swab Prothrombin Time Result Value Ref Range [...] Value Ref Range T&S only valid at [facility] Prothrombin Time Result Value Ref Range [...] [place] Lea 03/07/2021 Thoracic Surgery Service Pager [phone] * Rubén Bone PA - 03/06/2021 8:29 AM EDT Images from the original note were not included. [facility] Department of Thoracic Surgery Inpatient Progress Note [place], [place] [address] FAX: Patient Name: London Neri Patient : 1950 Patient Patient Location: [address] [place] [address] Thoracic surgery attending: Dr. Khalil HPI: London Neri is a 70 y.o. male with PMHx significant for recurrent spontaneous pneumothorax, CHF,mitral and aortic mechanical valves (both placed 1998, on coumadin), s/p pacemaker who presents as transfer from [facility] for surgical treatment of recurrent spontaneous left pneumothorax. Reports sudden onset of SOB on Monday which he knew felt like his prior ptx and presented to [facility] for treatment. Hospitalized at [facility] from 03/03 until today when he was transferred to [facility] for further management of his recurrent PTX. Had L-sided CT placed at [facility], with continuous air-leak since admission. Pt reports this is his fourth ptx, first occurred 2 years ago after multiple broken ribs in curred by slip and fall on ice. The 2nd and 3rd ptx were non-traumatic and one was attributed to lifting heavy item. Since CT placed at [facility] SOB has improved. Coumadin last taken [...] to Hosp-Admission (Current) from 03/05/2021 in 3 [facility] Office Visit from 08/10/2020 in Cardiology at [facility] Weight 77.1 kg (170 lb) 1 03/05/2021 [...] QTC Calculated (Bezet) 524 ms Calculated P [place] 30 degrees Calculated R [place] -103 degrees Calculated T [place] 62 degrees INTERPRETATION Atrial-sensed ventricular-paced rhythm Abnormal ECG When compared with ECG of 11-SEP-2007 16:25, Electronic ventricular pacemaker has replaced Sinus rhythm COVID-19 PCR Specimen: Nasopharyngeal Swab Symptoms->Surveillance Result Value Ref Range Rapid SARS-CoV-2 RNA Not Detected Not Detected SARS-CoV-2 Source METER CALIBRATOR Swab Prothrombin Time Result Value Ref Range [...] Range T&S only valid at [facility] Hosp Prothrombin Time Result Value Ref Range [...] [place] Lea 03/06/2021 Thoracic Surgery Service Pager [phone] * Ashanti May MD - 03/05/2021 3:47 PM EDT [facility] Department of Thoracic Surgery Inpatient H&P Note [place] [facility] [place] [address] FAX: Patient Name: London Neri Patient : 1950 Patient Patient Location: ED10/ED10 B Thoracic surgery attending: Dr. Khalil HPI: London Neri is a 70 y.o. male with PMHx significant for recurrent spontaneous pneumothorax, CHF,mitral and aortic mechanical valves (both placed 1998, on coumadin), s/p pacemaker who presents as transfer from [facility] for surgical treatment of recurrent spontaneous left pneumothorax. Reports sudden onset of SOB on Monday which he knew felt like his prior ptx and presented to [facility] for treatment. Hospitalized at [facility] from 03/03 until today when he was transferred to [facility] for further management of his recurrent PTX. Had L-sided CT placed at [facility], with continuous air-leak since admission. Pt reports this is his fourth ptx, first occurred 2 years ago after multiple broken ribs incurred by slip and fall on ice. The 2nd and 3rd ptx were non-traumatic and one was attributed to lifting heavy item. Since CT placed at [facility] SOB has improved. Coumadin last taken [...] 4.67) performed by Lena Clark MD at [facility] ENDOSCOPY Medications: No outpatient medications have [...] Gatherings with Friends and Family: ??? Attends Anglican Services: ??? Active Member of Clubs or [...] Date ED from 03/05/2021 in Emergency Department [facility] Office Visit from 08/10/2020 in Cardiology at [facility] Weight 77.1 kg (170 lb) 1 03/05/2021 [...] May MD 03/05/2021 Thoracic Surgery Service Pager [phone] documented in this encounter ED Notes * Ruma Kumar RN - 03/05/2021 7:09 PM EDT Pt O2 sats decrease when pt lying in bed. Boosted up in bed independently. O2 sats remained at 89. Pt placed on house supervisor at 2l/min. Pt then at 97% on house supervisor. Crust Sorter removed after 2 mins and maintaing O2 [...] appears in place. 3-4+ air leak on -[id number] Abd: Soft, non tender MSK: No peripheral [...] in place. Pt is stable. Dr. Khalil shank boner and will admit and take pt to [...] Type: *No Product type* / Secondary Insurance: [employer] [facility] Prescription Coverage: Yes Preferred Pharmacy: No Pharmacies Listed Last Physical Therapy Recommendation: (home with assistance and services TBD) with (likely none) Last Occupational Therapy Recommendation: home with supervision, home with supervision - [id number] Plan for discharge is: Home no needs Plan going forward: CM will continue to follow and assist with discharge planning and coordination of care as indicated. Anticipated Date of Discharge: 03/15/2021 Vanessa Anne RN Case Self Defense Instructor of Care Management * Plan of Care [...] Type: *No Product type* / Secondary Insurance: [employer] [place] Prescription Coverage: yes Preferred Pharmacy: No Pharmacies Listed Plan for discharge is: TBD Plan going forward: CM will continue to follow and assist with discharge planning and coordination of care as indicated. Anticipated Date of Discharge: 03/12/2021 Vanessa Anne RN Case Self Defense Instructor of Care Management Phone [phone] * Brief Op Note - Ashanti May MD - 03/09/2021 11:22 AM EDT Brief Operative Note Patient Name: London Neri : [id number] MR#: [id number] Case Date: 03/09/2021 Surgeon: Surgeon(s) and Role: [...] othersurfaces were oozing and we used the Pod Inns water bipolar cautery to obtain hemostasis throughout [...] pt not feeling well and stated that [employer] could call . MSWleft voicemail for . Reason for Hospitalization: They repaired my left lung. Last COVID test: 03/05/21 1552 not detected Lab Results Component Value Date [id number] Not Detected 03/05/2021 Past medical History: Past Medical History: Diagnosis Date ??? C. difficile colitis ??? COPD (chronic obstructive pulmonary disease) ??? Emphysema of lung ??? Hemorrhoid ??? Pneumothorax on left Hospitalizations Within the Past 30 Days: other (see comments) (admitted to [facility] on 03/03, transferred to [facility] on 03/05) Current Decision-Making Capacity: Self Advance Care Planning: Attempt Cardiopulmonary Resuscitation - Inpatient Received -Advanced Directive: Yes, on file AD in eDH. Names Meredith Villarreal ([phone], ) as primary agent; names Loco Odell ([phone], , ) as secondary agent Current Functional [...] DME: none Home Address confirmed as: [address] [place] [address] [place] [address] Social & Family Supports: [employer] left voicemail for pt's at home number; [employer] phone call to mobile number and recording states that it is not in service Extended Emergency Contact Information Primary Emergency Contact: Meredith Villarreal [facility] Mobile Relation: Spouse Current Care [...] Type: *No Product type* / Secondary Insurance: [facility] Prescription Coverage: yes Preferred Pharmacy: unable to assess No Pharmacies Listed [facility] Status: Patient is a : No, registration status: at at %. Primary Care Provider: Linda Mccray MD [phone] Tirso Ghosh ([phone]) as PCP - need to clarify with [...] accessing necessary care and/or follow-up after discharge. [employer] attempted to meet with pt on [facility]; pt reporting that he is not feeling well. Able to answer only a few questions before asking for his nurse. Based on chart review, pt had recently syncopal episode with +headstrike. [employer] phone call to pt's to complete IA. Left a voicecmail asking for call back. Cell phone listed on [facility] not in service - will address with when call back is received. A member of the Care Management team will continue to monitor progress, follow for continuity of care and assist with transition of care planning. NIRMALA Khan [employer] PumperSelf Defense Instructor of Care Management Pager: [phone] * Plan of Care - Gary Rodríguez [...] Operative Note Patient Name: London Neri : [id number] MR#: [id number] Case Date: 03/06/2021 Surgeon: Surgeon(s) and Role: [...] The patient was transferred to [facility] for definitive treatment of his recurrent spontaneous [...] who have questions please contact the health post acute care registered nurse that requested your imaging first. ? Electronically signed by: Malika Thayer MD, [facility] ([phone]), at 03/30/2021 2:52 PM Narrative 03/30/2021 2:52 [...] patients who have questions please contactthe health post acute care registered nurse that requested your imaging first. Electronically signed by: Malika Thayer MD, [facility]([phone]), at 03/30/2021 2:52 PM Kendall Khalil MD [...] who have questions please contact the health post acute care registered nurse that requested your imaging first. ? Electronically signed by: KENDALL PACHECO MD, [facility] ([phone]), at 03/13/2021 1:22 PM Narrative 03/13/2021 1:22 [...] patients who have questions please contactthe health post acute care registered nurse that requested your imaging first. Electronically signed by: KENDALL PACHECO MD, [facility]([phone]), at 03/13/2021 1:22 PM Kendall Khalil MD [...] who have questions please contact the health post acute care registered nurse that requested your imaging first. ? Electronically signed by: KENDALL PACHECO MD, [facility] ([phone]), at 03/13/2021 9:41 AM Narrative 03/13/2021 9:41 [...] patients who have questions please contactthe health post acute care registered nurse that requested your imaging first. Electronically signed by: KENDALL PACHECO MD, [facility]([phone]), at 03/13/2021 9:41 AM Kendall Khalil MD IMG DX ORDERABLES * Green Tube HOLD (03/13/2021 3:47 AM EDT) Green Hold Sample in lab. [facility] Blood Venous Draw / Unknown 03/13/2021 3:47 AM EDT 03/13/2021 4:24 AM EDT Uri Sawyer MD CHEMISTRY ORDERABLES [facility] [place] [address] * (ABNORMAL) Differential, Automated (03/13/2021 3:47 AM EDT) Neutrophil % 82.8 % [facility] Neutrophil Absolute 11.20(H) 1.70 - 6.10 x10(3)/[facility] Lymph % 6.4 % [facility] Lymphocytes Abs 0.9 0.9 - 3.2 x10(3)/[facility] Monocyte % 7.8 % [facility] Monocyte Abs 1.1(H) 0.3 - 0.9 x10(3)/[facility] Eos % 2.0 % [facility] Eosinophils Abs 0.3 0.0 - 0.4 x10(3)/[facility] Basophil % 0.3 % [facility] Baso Absolute 0.0 0.0 - 0.1 x10(3)/[facility] Immature Gran % 0.70 % [facility] Comment: Immature granulocytes(IG's)percentage and absolute count will include metamyelocytes, myelocytes, and promyelocytes. Blood smears from CBCs yielding IG's will be scanned manually for concordance. If this scan disagrees with the automated IG or if promyelocytes are noted, a manual differential will be performed. Immature Gran Absolute 0.09(H) 0.00 - 0.04 x10(3)/[facility] Blood 03/13/2021 3:47 AM EDT 03/13/2021 4:23 AM EDT Narrative Resulting Agency Comment Spec In Lab Ashanti May MD HEMATOLOGY ORDERABLE S [facility] [place] [address] * (ABNORMAL) Hemogram (03/13/2021 3:47 AM EDT) White Blood Cell 13.5(H) 4.0 - 9.5 x10(3)/mc L [facility] Red Blood Cell 2.70(L) 4.58 - 5.54 x10(6)/mc L [facility] Hemoglobin 8.1(L) 13.7 - 16.5 gm/dL [facility] Hematocrit 24.0(L) 40.5 - 48.5 % [facility] Mean Cell Volume 88.9 82.9 - 93.1 fL [facility] Mean Cell Hemoglobin 30.0 27.5 - 32.1 pg [facility] Mean Cell Hemoglobin Concentration 33.8 32.0 - 35.7 gm/dL [facility] Platelet 316 145 - 357 x10(3)/ L [facility] RDW Standard Deviation 44.9 36.0 - 45.0 [facility] RDW coefficient of variation 14.4(H) 11.4 - 13.8 % [facility] Mean Platelet Volume 9.6 7.6 - 12.9 [facility] NRBC% auto 0.4 % [facility] NRBC Absolute 0.050(H) 0.000 - 0.000 x10(3)/[facility] Blood 03/13/2021 3:47 AM EDT 03/13/2021 4:23 AM EDT Narrative Resulting Agency Comment Spec In Lab Ashanti May MD HEMATOLOGY ORDERABLE S [facility] [place] [address] * (ABNORMAL) Prothrombin Time (03/13/2021 3:47 AM EDT) Prothrombin Time 12.9(H) 9.4 - 12.5 sec [facility] International Normalization Ratio 1.1 [facility] Comment: An INR <2.0 indicates [...] MD HEMATOLOGY ORDERABLE S Performing Organization Address [facility] de Phone Number [facility] [place] [address] * Prothrombin Time (03/12/2021 6:12 PM EDT) Prothrombin Time 11.7 9.4 - 12.5 sec [facility] International Normalization Ratio 1.0 [facility] Comment: An INR <2.0 indicates [...] MD HEMATOLOGY ORDERABLE S Performing Organization Address [facility] Co de Phone Number [facility] [place] [address] * Transfuse RBC (03/12/2021 5:24 PM EDT) [...] who have questions please contact the health post acute care registered nurse that requested your imaging first. ? Electronically signed by: Malika Thayer MD, [facility] ([phone]), at 03/12/2021 2:56 PM Narrative 03/12/2021 2:56 [...] patients who have questions please contactthe health post acute care registered nurse that requested your imaging first. Electronically signed by: Malika Thayer MD, [facility]([phone]), at 03/12/2021 2:56 PM Kendall Khalil MD IMG DX ORDERABLES * Type and Screen Validity (03/12/2021 12:10 PM EDT) [facility] T&S only valid at [facility] Comment:This Type and Screen result is only valid at the [facility] Blood 03/12/2021 12:1 0 PM EDT 03/12/2021 12:21 PM EDT Narrative Resulting Agency Comment Spec In Lab Pardeep DELAROSA BLOOD BANK LAB OR DERABLES Performing Organization Address City/[facility]/ZIP Co de Phone Number [facility] [place] [address] * ABORH Recheck Status (03/12/2021 12:10 PM EDT) [facility] ABORH Type Recheck Completed [facility] Blood 03/12/2021 12:1 0 PM EDT 03/12/2021 12:21 PM EDT Narrative Resulting Agency Comment Spec In Lab Pardeep DELAROSA BLOOD BANK LAB OR DERABLES [facility] [place] [address] * Antibody screen (03/12/2021 12:10 PM EDT) [facility] Ab Screen Interp Negative [facility] Expires at [id number] on: 03/15/2021 [facility] Blood 03/12/2021 12:1 0 PM EDT 03/12/2021 12:21 PM EDT Narrative Resulting Agency Comment Spec In Lab Pardeep DELAROSA BLOOD BANK LAB OR DERABLES [facility] [place] [address] * ABO/Rh Typing (03/12/2021 12:10 PM EDT) ABORH Type A Neg [facility] Blood 03/12/2021 12:1 0 PM EDT 03/12/2021 12:21 PM EDT Narrative Resulting Agency Comment Spec In Lab Pardeep DELAROSA BLOOD BANK LAB OR DERABLES Performing Organization Address [facility]/ZIP Co de Phone Number [facility] [place] [address] * Prepare RBC (03/12/2021 10:45 AM EDT) Dispensed? Yes [facility] Blood 03/12/2021 10:4 5 AM EDT 03/12/2021 10:43 AM EDT Narrative Resulting Agency Comment Spec In Lab Kendall Khalil MD BLOOD BANK PRODUCT O RDERABLES Performing Organization Address City/[facility]/ZIP Co de Phone Number [facility] [place] [address] * Green Tube HOLD (03/12/2021 8:31 AM EDT) Green Hold Sample in lab. [facility] Blood Venous Draw / Unknown 03/12/2021 8:31 AM EDT 03/12/2021 8:38 AM EDT Ashanti May MD CHEMISTRY ORDERABLES Performing Organization Address City/[facility]/ZIP Co de Phone Number [facility] [place] [address] * (ABNORMAL) Differential, Automated (03/12/2021 8:31 AM EDT) Pathologist [facility] Neutrophil % 70.0 % [facility] Neutrophil Absolute 6.10 1.70 - 6.10 x10(3)/ L [facility] Lymph % 13.8 % [facility] Lymphocytes Abs 1.2 0.9 - 3.2 x10(3)/[facility] Monocyte % 9.3 % [facility] Monocyte Abs 0.8 0.3 - 0.9 x10(3)/[facility] Eos % 5.1 % [facility] Eosinophils Abs 0.4 0.0 - 0.4 x10(3)/[facility] Basophil % 0.7 % [facility] Baso Absolute 0.1 0.0 - 0.1 x10(3)/[facility] Immature Gran % 1.10 % [facility] Comment: Immature granulocytes(IG's)percentage and absolute count will include metamyelocytes, myelocytes, and promyelocytes. Blood smears from CBCs yielding IG's will be scanned manually for concordance. If this scan disagrees with the automated IG or if promyelocytes are noted, a manual differential will be performed. Immature Gran Absolute 0.10(H) 0.00 - 0.04 x10(3)/[facility] Blood 03/12/2021 8:31 AM EDT 03/12/2021 8:38 AM EDT Narrative Resulting Agency Comment Spec In Lab Ashanti May MD HEMATOLOGY ORDERABLE S [facility] [place] [address] * (ABNORMAL) Hemogram (03/12/2021 8:31 AM EDT) [facility] White Blood Cell 8.7 4.0 - 9.5 x10(3)/mc L [facility] Red Blood Cell 2.34(L) 4.58 - 5.54 x10(6)/mc L [facility] Hemoglobin 7.0(L) 13.7 - 16.5 gm/dL [facility] Hematocrit 20.8(L) 40.5 - 48.5 % [facility] Mean Cell Volume 88.9 82.9 - 93.1 fL [facility] Mean Cell Hemoglobin 29.9 27.5 - 32.1 pg [facility] Mean Cell Hemoglobin Concentration 33.7 32.0 - 35.7 gm/dL [facility] Platelet 275 145 - 357 x10(3)/[facility] RDW Standard Deviation 45.6(H) 36.0 - 45.0 fL [facility] RDW coefficient of variation 14.4(H) 11.4 - 13.8 % [facility] Mean Platelet Volume 9.5 7.6 - 12.9 [facility] LAB[facility]ATORY NRBC% auto 0.5 % [facility] NRBC Absolute 0.040(H) 0.000 - 0.000 x10(3)/[facility] Blood 03/12/2021 8:31 AM EDT 03/12/2021 8:38 AM EDT Narrative Resulting Agency Comment Spec In Lab Ashanti May MD HEMATOLOGY ORDERABLE S [facility] [place] [address] * (ABNORMAL) Differential, Automated (03/11/2021 12:48 PM EDT) Neutrophil % 65.8 % [facility] Neutrophil Absolute 5.12 1.70 - 6.10 x10(3)/ L [facility] Lymph % 14.2 % [facility] Lymphocytes Abs 1.1 0.9 - 3.2 x10(3)/mc L [facility] Monocyte % 11.0 % [facility] Monocyte Abs 0.9 0.3 - 0.9 x10(3)/ L [facility] Eos % 6.9 % [facility] Eosinophils Abs 0.5(H) 0.0 - 0.4 x10(3)/ L [facility] Basophil % 0.6 % [facility] Baso Absolute 0.0 0.0 - 0.1 x10(3)/[facility] Immature Gran % 1.50 % [facility] Comment: Immature granulocytes(IG's)percentage and absolute count will include metamyelocytes, myelocytes, and promyelocytes. Blood smears from CBCs yielding IG's will be scanned manually for concordance. If this scan disagrees with the automated IG or if promyelocytes are noted, a manual differential will be performed. Immature Gran Absolute 0.12(H) 0.00 - 0.04 x10(3)/[facility] Blood 03/11/2021 12:4 8 PM EDT 03/11/2021 1:27 PM EDT Narrative Resulting Agency Comment Spec In Lab Ashanti May MD HEMATOLOGY ORDERABLE S Performing Organization Address City/State/[facility] Co de Phone Number [facility] [place] [address] * (ABNORMAL) Hemogram (03/11/2021 12:48 PM EDT) White Blood Cell 7.8 4.0 - 9.5 x10(3)/[facility] Red Blood Cell 2.55(L) 4.58 - 5.54 x10(6)/ L [facility] Hemoglobin 7.3(L) 13.7 - 16.5 gm/dL [facility] Hematocrit 22.6(L) 40.5 - 48.5 % [facility] Mean Cell Volume 88.6 82.9 - 93.1 fL [facility] Mean Cell Hemoglobin 28.6 27.5 - 32.1 pg [facility] Mean Cell Hemoglobin Concentration 32.3 32.0 - 35.7 gm/dL [facility] Platelet 251 145 - 357 x10(3)/mc L [facility] RDW Standard Deviation 46.9(H) 36.0 - 45.0 fL [facility] RDW coefficient of variation 14.5(H) 11.4 - 13.8 % [facility] Mean Platelet Volume 10.3 7.6 - 12.9 fL [facility] NRBC% auto 0.4 % [facility] NRBC Absolute 0.030(H) 0.000 - 0.000 x10(3)/mc L [facility] Blood 03/11/2021 12:4 8 PM EDT 03/11/2021 1:27 PM EDT Narrative Resulting Agency Comment Spec In Lab Ashanti May MD HEMATOLOGY ORDERABLE S Performing Organization Address City/State/[facility] Co de Phone Number [facility] [place] [address] * (ABNORMAL) Basic Metabolic Panel (non-fasting) (03/11/2021 12:48 PM EDT) Glucose 100 65 - 199 mg/dL [facility] Comment:Diabetes: >=200 mg/d L plus symptoms Blood Urea Nitrogen 19 10 - 20 mg/dL [facility] Creatinine 0.93 0.80 - 1.50 mg/dL [facility] Sodium 140 135 - 145 mmol/L [facility] Potassium 3.9 3.5 - 5.0 mmol/L [facility] Comment: Please note: ??Patients with WBC >100,000 may have falsely elevated Potassium levels. ??For accurate Potassium quantification in these patients send serum separator tube (gold top) for subsequent determinations. ??Contact the Clinical Chemistry Laboratory if there are any questions. Chloride 106 98 - 107 mmol/L [facility] Carbon Dioxide 23 22 - 31 mmol/L [facility] Anion Gap 11 5 - 15 mmol/L [facility] Calcium 8.3(L) 8.5 - 10.5 mg/dL [facility] Est Glomerular Filtration Rate 82 >=60 mL/min/1. 73 m?? [facility] Comment: This patient? s estimated [...] In Lab Kendall Khalil MD CHEMISTRY ORDERABLES [facility] [place] [address] * XR Chest PA & Lateral (Generic) [...] who have questions please contact the health post acute care registered nurse that requested your imaging first. ? Electronically signed by: Mirella Fowler MD, [facility] ([phone]), at 03/10/2021 8:41 AM Narrative 03/10/2021 8:41 [...] patients who have questions please contactthe health post acute care registered nurse that requested your imaging first. Electronically signed by: Mirella Fowler MD, [facility]([phone]), at 03/10/2021 8:41 AM Kendall Khalil MD IMG DX ORDERABLES * (ABNORMAL) Differential, Automated (03/10/2021 5:52 AM EDT) Neutrophil % 79.5 % [facility] Neutrophil Absolute 8.74(H) 1.70 - 6.10 x10(3)/[facility] Lymph % 9.8 % [facility] Lymphocytes Abs 1.1 0.9 - 3.2 x10(3)/[facility] Monocyte % 9.5 % [facility] Monocyte Abs 1.0(H) 0.3 - 0.9 x10(3)/[facility] Eos % 0.5 % [facility] Eosinophils Abs 0.1 0.0 - 0.4 x10(3)/[facility] Basophil % 0.2 % [facility] Baso Absolute 0.0 0.0 - 0.1 x10(3)/[facility] Immature Gran % 0.50 % [facility] Comment: Immature granulocytes(IG's)percentage and absolute count will include metamyelocytes, myelocytes, and promyelocytes. Blood smears from CBCs yielding IG's will be scanned manually for concordance. If this scan disagrees with the automated IG or if promyelocytes are noted, a manual differential will be performed. Immature Gran Absolute 0.05(H) 0.00 - 0.04 x10(3)/[facility] Blood 03/10/2021 5:52 AM EDT 03/10/2021 6:21 AM EDT Narrative Resulting Agency Comment Spec In Lab Ashanti May MD HEMATOLOGY ORDERABLE S [facility] [place] [address] * (ABNORMAL) Hemogram (03/10/2021 5:52 AM EDT) White Blood Cell 11.0(H) 4.0 - 9.5 x10(3)/mc L [facility] Red Blood Cell 2.56(L) 4.58 - 5.54 x10(6)/mc L [facility] Hemoglobin 7.6(L) 13.7 - 16.5 gm/dL [facility] Hematocrit 22.3(L) 40.5 - 48.5 % [facility] Mean Cell Volume 87.1 82.9 - 93.1 fL [facility] Mean Cell Hemoglobin 29.7 27.5 - 32.1 pg [facility] Mean Cell Hemoglobin Concentration 34.1 32.0 - 35.7 gm/dL [facility] Platelet 208 145 - 357 x10(3)/mc L [facility] RDW Standard Deviation 47.7(H) 36.0 - 45.0 fL [facility] RDW coefficient of variation 14.9(H) 11.4 - 13.8 % [facility] Mean Platelet Volume 9.8 7.6 - 12.9 fL [facility] NRBC% auto 0.0 % [facility] NRBC Absolute 0.000 0.000 - 0.000 x10(3)/mc L [facility] Blood 03/10/2021 5:52 AM EDT 03/10/2021 6:21 AM EDT Narrative Resulting Agency Comment Spec In Lab Ashanti May MD HEMATOLOGY ORDERABLE S [facility] [place] [address] * (ABNORMAL) Phosphorus (03/10/2021 5:52 AM EDT) Phosphorus 2.4(L) 2.5 - 4.5 mg/dL [facility] Blood 03/10/2021 5:52 AM EDT 03/10/2021 6:21 AM EDT Narrative Resulting Agency Comment Spec In Lab Kendall Khalil MD CHEMISTRY ORDERABLES Performing Organization Address [facility] Co de Phone Number [facility] [place] [address] * Magnesium (03/10/2021 5:52 AM EDT) Pathologist [facility] Magnesium 0.92 0.69 - 1.07 mmol/L [facility] Blood 03/10/2021 5:52 AM EDT 03/10/2021 6:21 AM EDT Narrative Resulting Agency Comment Spec In Lab Kendall Khalil MD CHEMISTRY ORDERABLES Performing Organization Address [facility] Co de Phone Number [facility] [place] [address] * (ABNORMAL) Basic Metabolic Panel (non-fasting) (03/10/2021 5:52 AM EDT) Pathologist [facility] Glucose 106 65 - 199 mg/dL [facility] Comment:Diabetes: >=200 mg/d L plus symptoms Blood Urea Nitrogen 18 10 - 20 mg/dL [facility] Creatinine 0.76(L) 0.80 - 1.50 mg/dL [facility] Sodium 133(L) 135 - 145 mmol/L [facility] Potassium 4.5 3.5 - 5.0 mmol/L [facility] Comment: Please note: ??Patients with WBC >100,000 may have falsely elevated Potassium levels. ??For accurate Potassium quantification in these patients send serum separator tube (gold top) for subsequent determinations. ??Contact the Clinical Chemistry Laboratory if there are any questions. Chloride 104 98 - 107 mmol/L [facility] Carbon Dioxide 22 22 - 31 mmol/L [facility] Anion Gap 7 5 - 15 mmol/L [facility] Calcium 7.9(L) 8.5 - 10.5 mg/dL [facility] Est Glomerular Filtration Rate 92 >=60 mL/min/1. 73 m?? [facility] Comment: This patient? s estimated [...] Khalil MD CHEMISTRY ORDERABLES Performing Organization Address City/State/[facility] Co de Phone Number [facility] [place] [address] * XR Chest One View (03/09/2021 12:50 [...] who have questions please contact the health post acute care registered nurse that requested your imaging first. ? Electronically signed by: GERMANIA BLAIR MD, [facility] ([phone]), at 03/09/2021 1:15 PM Narrative 03/09/2021 1:15 [...] patients who have questions please contactthe health post acute care registered nurse that requested your imaging first. Kendall Khalil MD IMG DX ORDERABLES * (ABNORMAL) Differential, Automated (03/09/2021 11:55 AM EDT) Neutrophil % 92.8 % [facility] Neutrophil Absolute 13.14(H) 1.70 - 6.10 x10(3)/mc L [facility] Lymph % 2.4 % [facility] Lymphocytes Abs 0.3(L) 0.9 - 3.2 x10(3)/mc L [facility] Monocyte % 4.0 % [facility] Monocyte Abs 0.6 0.3 - 0.9 x10(3)/[facility] Eos % 0.1 % [facility] Eosinophils Abs 0.0 0.0 - 0.4 x10(3)/[facility] Basophil % 0.2 % [facility] Baso Absolute 0.0 0.0 - 0.1 x10(3)/mc L [facility] Immature Gran % 0.50 % [facility] Comment: Immature granulocytes(IG's)percentage and absolute count will include metamyelocytes, myelocytes, and promyelocytes. Blood smears from CBCs yielding IG's will be scanned manually for concordance. If this scan disagrees with the automated IG or if promyelocytes are noted, a manual differential will be performed. Immature Gran Absolute 0.07(H) 0.00 - 0.04 x10(3)/mc L [facility] Blood 03/09/2021 11:5 5 AM EDT 03/09/2021 1:26 PM EDT Narrative Resulting Agency Comment Spec In Lab Ashanti May MD HEMATOLOGY ORDERABLE S [facility] [place] [address] * (ABNORMAL) Hemogram (03/09/2021 11:55 AM EDT) White Blood Cell 14.2(H) 4.0 - 9.5 x10(3)/mc L [facility] Red Blood Cell 2.81(L) 4.58 - 5.54 x10(6)/mc L [facility] Hemoglobin 8.4(L) 13.7 - 16.5 gm/dL [facility] Hematocrit 24.5(L) 40.5 - 48.5 % [facility] Mean Cell Volume 87.2 82.9 - 93.1 fL [facility] Mean Cell Hemoglobin 29.9 27.5 - 32.1 pg [facility] Mean Cell Hemoglobin Concentration 34.3 32.0 - 35.7 gm/dL [facility] Platelet 178 145 - 357 x10(3)/[facility] RDW Standard Deviation 46.4(H) 36.0 - 45.0 [facility] RDW coefficient of variation 14.4(H) 11.4 - 13.8 % [facility] Mean Platelet Volume 10.6 7.6 - 12.9 fL [facility] NRBC% auto 0.0 % [facility] NRBC Absolute 0.000 0.000 - 0.000 x10(3)/[facility] Blood 03/09/2021 11:5 5 AM EDT 03/09/2021 1:26 PM EDT Narrative Resulting Agency Comment Spec In Lab Ashanti May MD HEMATOLOGY ORDERABLE S [facility] [place] [address] * (ABNORMAL) Phosphorus (03/09/2021 11:55 AM EDT) Phosphorus 4.7(H) 2.5 - 4.5 mg/dL [facility] Blood 03/09/2021 11:5 5 AM EDT 03/09/2021 1:26 PM EDT Narrative Resulting Agency Comment Spec In Lab Kendall Khalil MD CHEMISTRY ORDERABLES Performing Organization Address City/[facility]/ZIP Co de Phone Number [facility] [place] [address] * Magnesium (03/09/2021 11:55 AM EDT) Magnesium 0.91 0.69 - 1.07 mmol/L [facility] Blood 03/09/2021 11:5 5 AM EDT 03/09/2021 1:26 PM EDT Narrative Resulting Agency Comment Spec In Lab Kendall Khalil MD CHEMISTRY ORDERABLES Performing Organization Address [facility] Co de Phone Number [facility] [place] [address] * (ABNORMAL) Basic Metabolic Panel (non-fasting) (03/09/2021 11:55 AM EDT) Glucose Not Perf 65 - 199 [facility] Comment: Sample improperly processed prior to receipt. Unspun for >1hr. Diabetes: >=200 mg/dL plus symptoms Blood Urea Nitrogen 17 10 - 20 mg/dL [facility] Creatinine 0.81 0.80 - 1.50 mg/dL [facility] Sodium 132(L) 135 - 145 mmol/L [facility] Potassium 4.6 3.5 - 5.0 mmol/L [facility] Comment: Please note: ??Patients with WBC >100,000 may have falsely elevated Potassium levels. ??For accurate Potassium quantification in these patients send serum separator tube (gold top) for subsequent determinations. ??Contact the Clinical Chemistry Laboratory if there are any questions. Chloride 99 98 - 107 mmol/L [facility] Carbon Dioxide 23 22 - 31 mmol/L [facility] Anion Gap 10 5 - 15 mmol/L [facility] Calcium 7.7(L) 8.5 - 10.5 mg/dL [facility] Est Glomerular Filtration Rate 89 >=60 mL/min/1. 73 m?? [facility] Comment: This patient? s estimated [...] In Lab Kendall Khalil MD CHEMISTRY ORDERABLES [facility] [place] [address] * (ABNORMAL) BLOOD GAS 2 ARTERIAL (03/09/2021 9:27 AM EDT) pH, Arterial 7.42 7.35 - 7.45 [facility] PCO2, Arterial 44 35 - 45 mmHg [facility] PO2, Arterial 137(H) 85 - 104 mmHg [facility] Bicarbonate, Arterial 28.1(H) 20.0 - 26.0 mmol/L [facility] Base Excess, Arterial 3.6(H) -3.0 - 3.0 mmol/L [facility] Hgb Blood Gas 8.6(L) 13.7 - 16.5 gm/dL [facility] Oxyhemoglobin, Arterial 97.2(H) 94.0 - 97.0 % [facility] Carboxyhemoglob in, Arterial 1.1 % [facility] Comment: Nonsmokers: 0.5-1.5% COHB Smokers: Variable, but usually less than 10% Toxic: 20-30% COHB Lethal: Greater than 60% COHB Methemoglobin, Arterial 0.3 <=1.5 % [facility] Na Whole Blood 129(L) 135 - 145 mmol/L [facility] K Whole Blood 4.7 3.5 - 5.0 mmol/L [facility] Comment: Please note: Patients with WBC >100,000 may have falsely elevated Potassium levels. Contact the Clinical Chemistry Laboratory if there are any questions. ICa Whole Blood 1.05(L) 1.15 - 1.33 mmol/L [facility] Comment: Note: ??Total bilirubin higher than 20 mg/dL may lead to falsely low ionized calcium. CL Whole Blood 100 98 - 107 mmol/L [facility] Gluc Whole Bld 132 65 - 199 mg/dL [facility] Comment:Diabetes: >=200 mg/d L plus symptoms. Lactate WB 1.7 0.5 - 2.2 mmol/L [facility] Blood 03/09/2021 9:27 AM EDT 03/09/2021 9:27 AM EDT Kendall Khalil MD POINT OF CARE TEST O RDERABLES [facility] [place] [address] * Prepare RBC (03/09/2021 7:15 AM EDT) Dispensed? Yes [facility] Blood 03/09/2021 7:15 AM EDT 03/09/2021 7:10 AM EDT Narrative Resulting Agency Comment Spec In Lab Kendall Khalil MD BLOOD BANK PRODUCT O RDERABLES [facility] [place] [address] * XR Chest One View (03/09/2021 6:54 [...] who have questions please contact the health post acute care registered nurse that requested your imaging first. ? Electronically signed by: Tirso Burton MD, [facility] ([phone]), at 03/09/2021 7:28 AM Narrative 03/09/2021 7:28 [...] patients who have questions please contactthe health post acute care registered nurse that requested your imaging first. Electronically signed by: Tirso Burton MD, [facility]([phone]), at 03/09/2021 7:28 AM Kendall Khalil MD IMG DX ORDERABLES * POCT Glucose (03/09/2021 4:42 AM EDT) Glucose, POC 177 65 - 199 mg/dL [facility] Comment: Supplemental ranges: <140 mg/dL before meals <180 mg/dL all other times of the day Blood 03/09/2021 4:42 AM EDT 03/09/2021 4:42 AM EDT Kendall Khalil MD POINT OF CARE TEST O RDERABLES Performing Organization Address City/[facility]/[place] [address] * (ABNORMAL) Differential, Automated (03/09/2021 2:57 AM EDT) Neutrophil % 82.6 % [facility] Neutrophil Absolute 10.25(H) 1.70 - 6.10 x10(3)/mc L [facility] Lymph % 8.4 % [facility] Lymphocytes Abs 1.0 0.9 - 3.2 x10(3)/ L [facility] Monocyte % 7.8 % [facility] Monocyte Abs 1.0(H) 0.3 - 0.9 x10(3)/mc L [facility] Eos % 0.6 % [facility] Eosinophils Abs 0.1 0.0 - 0.4 x10(3)/ L [facility] Basophil % 0.2 % [facility] Baso Absolute 0.0 0.0 - 0.1 x10(3)/ L [facility] Immature Gran % 0.40 % [facility] Comment: Immature granulocytes(IG's)percentage and absolute count will include metamyelocytes, myelocytes, and promyelocytes. Blood smears from CBCs yielding IG's will be scanned manually for concordance. If this scan disagrees with the automated IG or if promyelocytes are noted, a manual differential will be performed. Immature Gran Absolute 0.05(H) 0.00 - 0.04 x10(3)/ L [facility] Blood 03/09/2021 2:57 AM EDT 03/09/2021 3:31 AM EDT Narrative Resulting Agency Comment Spec In Lab Ashanti May MD HEMATOLOGY ORDERABLE S Performing Organization Address City/[facility]/ZIP Co de Phone [place] [facility] [address] * (ABNORMAL) Hemogram (03/09/2021 2:57 AM EDT) White Blood Cell 12.4(H) 4.0 - 9.5 x10(3)/[facility] Red Blood Cell 2.64(L) 4.58 - 5.54 x10(6)/[facility] Hemoglobin 7.9(L) 13.7 - 16.5 gm/dL [facility] Hematocrit 23.6(L) 40.5 - 48.5 % [facility] Mean Cell Volume 89.4 82.9 - 93.1 fL [facility] Mean Cell Hemoglobin 29.9 27.5 - 32.1 pg [facility] Mean Cell Hemoglobin Concentration 33.5 32.0 - 35.7 gm/dL [facility] Platelet 187 145 - 357 x10(3)/[facility] RDW Standard Deviation 43.7 36.0 - 45.0 [facility] RDW coefficient of variation 13.4 11.4 - 13.8 % [facility] Mean Platelet Volume 10.4 7.6 - 12.9 fL [facility] NRBC% auto 0.0 % [facility] NRBC Absolute 0.000 0.000 - 0.000 x10(3)/[facility] Blood 03/09/2021 2:57 AM EDT 03/09/2021 3:31 AM EDT Narrative Resulting Agency Comment Spec In Lab Ashanti May MD HEMATOLOGY ORDERABLE S [facility] [place] [address] * Phosphorus (03/09/2021 2:57 AM EDT) Pathologist [facility] Phosphorus 3.1 2.5 - 4.5 mg/dL [facility] Blood 03/09/2021 2:57 AM EDT 03/09/2021 3:31 AM EDT Narrative Resulting Agency Comment Spec In Lab Kendall Khalil MD CHEMISTRY ORDERABLES Performing Organization Address [facility]/ZIP Co de Phone Number [facility] [place] [address] * Magnesium (03/09/2021 2:57 AM EDT) Magnesium 0.85 0.69 - 1.07 mmol/L [facility] Blood 03/09/2021 2:57 AM EDT 03/09/2021 3:31 AM EDT Narrative Resulting Agency Comment Spec In Lab Kendall Khalil MD CHEMISTRY ORDERABLES Performing Organization Address [facility] Co de Phone Number [facility] [place] [address] * (ABNORMAL) Basic Metabolic Panel (non-fasting) (03/09/2021 2:57 AM EDT) Glucose 112 65 - 199 mg/dL [facility] Comment:Diabetes: >=200 mg/d L plus symptoms Blood Urea Nitrogen 14 10 - 20 mg/dL [facility] Creatinine 0.81 0.80 - 1.50 mg/dL [facility] Sodium 132(L) 135 - 145 mmol/L [facility] Potassium 4.1 3.5 - 5.0 mmol/L [facility] Comment: Please note: ??Patients with WBC >100,000 may have falsely elevated Potassium levels. ??For accurate Potassium quantification in these patients send serum separator tube (gold top) for subsequent determinations. ??Contact the Clinical Chemistry Laboratory if there are any questions. Chloride 98 98 - 107 mmol/L [facility] Carbon Dioxide 26 22 - 31 mmol/L [facility] Anion Gap 8 5 - 15 mmol/L [facility] Calcium 8.0(L) 8.5 - 10.5 mg/dL [facility] Est Glomerular Filtration Rate 89 >=60 mL/min/1. 73 m?? [facility] Comment: This patient? s estimated [...] In Lab Kendall Khalil MD CHEMISTRY ORDERABLES [facility] [place] [address] * (ABNORMAL) Differential, Automated (03/08/2021 8:40 PM EDT) Neutrophil % 86.8 % [facility] Neutrophil Absolute 12.59(H) 1.70 - 6.10 x10(3)/mc L [facility] Lymph % 4.5 % [facility] Lymphocytes Abs 0.7(L) 0.9 - 3.2 x10(3)/mc L [facility] Monocyte % 7.5 % [facility] Monocyte Abs 1.1(H) 0.3 - 0.9 x10(3)/mc L [facility] Eos % 0.0 % [facility] Eosinophils Abs 0.0 0.0 - 0.4 x10(3)/mc L [facility] Basophil % 0.1 % [facility] Baso Absolute 0.0 0.0 - 0.1 x10(3)/mc L [facility] Immature Gran % 1.10 % [facility] Comment: Immature granulocytes(IG's)percentage and absolute count will include metamyelocytes, myelocytes, and promyelocytes. Blood smears from CBCs yielding IG's will be scanned manually for concordance. If this scan disagrees with the automated IG or if promyelocytes are noted, a manual differential will be performed. Immature Gran Absolute 0.16(H) 0.00 - 0.04 x10(3)/mc L [facility] Blood 03/08/2021 8:40 PM EDT 03/08/2021 8:49 PM EDT Narrative Resulting Agency Comment Spec In Lab Jian Olivarez MD HEMATOLOGY ORDERABLE S [facility] [place] [address] * (ABNORMAL) Hemogram (03/08/2021 8:40 PM EDT) White Blood Cell 14.5(H) 4.0 - 9.5 x10(3)/ L [facility] Red Blood Cell 3.29(L) 4.58 - 5.54 x10(6)/mc L [facility] Hemoglobin 9.7(L) 13.7 - 16.5 gm/dL [facility] Hematocrit 29.0(L) 40.5 - 48.5 % [facility] Mean Cell Volume 88.1 82.9 - 93.1 fL [facility] Mean Cell Hemoglobin 29.5 27.5 - 32.1 pg [facility] Mean Cell Hemoglobin Concentration 33.4 32.0 - 35.7 gm/dL [facility] Platelet 187 145 - 357 x10(3)/mc L [facility] RDW Standard Deviation 43.1 36.0 - 45.0 fL [facility] RDW coefficient of variation 13.2 11.4 - 13.8 % [facility] Mean Platelet Volume 10.3 7.6 - 12.9 fL [facility] NRBC% auto 0.0 % [facility] NRBC Absolute 0.000 0.000 - 0.000 x10(3)/mc L [facility] Blood 03/08/2021 8:40 PM EDT 03/08/2021 8:49 PM EDT Narrative Resulting Agency Comment Spec In Lab Jian Olivarez MD HEMATOLOGY ORDERABLE S [facility] [place] [address] * Type and Screen Validity (03/08/2021 4:36 PM EDT) [facility] T&S only valid at [facility] Comment:This Type and Screen result is only valid at the [facility] Blood 03/08/2021 4:36 PM EDT 03/08/2021 4:41 PM EDT Narrative Resulting Agency Comment Spec In Lab Ashanti May MD BLOOD BANK LAB ORDER MADDISON [facility] [place] [address] * ABORH Recheck Status (03/08/2021 4:36 PM EDT) [facility] ABORH Type Recheck Completed [facility] Blood 03/08/2021 4:36 PM EDT 03/08/2021 4:41 PM EDT Narrative Resulting Agency Comment Spec In Lab Ashanti May MD BLOOD BANK LAB ORDER MADDISON [facility] [place] [address] * Antibody screen (03/08/2021 4:36 PM EDT) Ab Screen Interp Negative [facility] Expires at [id number] on: 03/11/2021 [facility] Blood 03/08/2021 4:36 PM EDT 03/08/2021 4:41 PM EDT Narrative Resulting Agency Comment Spec In Lab Ashanti May MD BLOOD BANK LAB ORDER MADDISON Performing Organization Address City/[facility]/ZIP Co de Phone Number [facility] [place] [address] * ABO/Rh Typing (03/08/2021 4:36 PM EDT) ABORH Type A Neg [facility] Blood 03/08/2021 4:36 PM EDT 03/08/2021 4:41 PM EDT Narrative Resulting Agency Comment Spec In Lab Ashanti May MD BLOOD BANK LAB ORDER MADDISON Performing Organization Address [facility] Co de Phone Number [facility] [place] [address] * XR Chest One View (03/08/2021 3:00 [...] who have questions please contact the health post acute care registered nurse that requested your imaging first. ? Electronically signed by: Malika Thayer MD, [facility] ([phone]), at 03/08/2021 3:08 PM Narrative 03/08/2021 3:08 [...] patients who have questions please contactthe health post acute care registered nurse that requested your imaging first. Electronically signed by: Malika Thayer MD, [facility]([phone]), at 03/08/2021 3:08 PM Kendall Khalil MD IMG DX ORDERABLES * EKG 12 Lead (03/08/2021 12:56 PM EDT) Ventricular rate 92 BPM MUSE SYSTEM Atrial Rate 92 BPM MUSE SYSTEM P-R Interval 180 ms MUSE SYSTEM QRS Duration 166 ms MUSE SYSTEM Q-T Interval 426 ms MUSE SYSTEM QTC Calculated (Bezet) 526 ms MUSE SYSTEM Calculated P [place] 43 degrees MUSE SYSTEM Calculated R [place] -63 degrees MUSE SYSTEM Calculated T [place] 62 degrees MUSE SYSTEM INTERPRETATION Atrial-sense d ventricular- paced rhythm Underlying normal sinus rhythm Abnormal ECG When compared with ECG of 05-MAR-2021 15:30, Vent. rate has increased BY ??19 BPM Confirmed by Devonte Newsome ([id number]) on 03/08/2021 4:10:26 PM MUSE SYSTEM 03/08/2021 12:5 6 PM EDT 03/08/2021 4:10 PM EDT Kendall Khalil MD ECG ORDERABLES MUSE SYSTEM * (ABNORMAL) Differential, Automated (03/08/2021 12:47 PM EDT) Neutrophil % 85.5 % [facility] Neutrophil Absolute 9.55(H) 1.70 - 6.10 x10(3)/mc L [facility] Lymph % 5.6 % [facility] Lymphocytes Abs 0.6(L) 0.9 - 3.2 x10(3)/mc L [facility] Monocyte % 8.1 % [facility] Monocyte Abs 0.9 0.3 - 0.9 x10(3)/mc L [facility] Eos % 0.1 % [facility] Eosinophils Abs 0.0 0.0 - 0.4 x10(3)/mc L [facility] Basophil % 0.3 % [facility] Baso Absolute 0.0 0.0 - 0.1 x10(3)/mc L [facility] Immature Gran % 0.40 % [facility] Comment: Immature granulocytes(IG's)percentage and absolute count will include metamyelocytes, myelocytes, and promyelocytes. Blood smears from CBCs yielding IG's will be scanned manually for concordance. If this scan disagrees with the automated IG or if promyelocytes are noted, a manual differential will be performed. Immature Gran Absolute 0.05(H) 0.00 - 0.04 x10(3)/mc L [facility] Blood 03/08/2021 12:4 7 PM EDT 03/08/2021 12:57 PM EDT Narrative Resulting Agency Comment Spec In Lab Ashanti May MD HEMATOLOGY ORDERABLE S [facility] [place] [address] * (ABNORMAL) Hemogram (03/08/2021 12:47 PM EDT) White Blood Cell 11.2(H) 4.0 - 9.5 x10(3)/ L [facility] Red Blood Cell 3.59(L) 4.58 - 5.54 x10(6)/[facility] Hemoglobin 10.6(L) 13.7 - 16.5 gm/dL [facility] Hematocrit 31.6(L) 40.5 - 48.5 % [facility] Mean Cell Volume 88.0 82.9 - 93.1 [facility] Mean Cell Hemoglobin 29.5 27.5 - 32.1 pg [facility] Mean Cell Hemoglobin Concentration 33.5 32.0 - 35.7 gm/dL [facility] Platelet 170 145 - 357 x10(3)/[facility] RDW Standard Deviation 43.1 36.0 - 45.0 [facility] RDW coefficient of variation 13.2 11.4 - 13.8 % [facility] Mean Platelet Volume 10.6 7.6 - 12.9 [facility] NRBC% auto 0.0 % [facility] NRBC Absolute 0.000 0.000 - 0.000 x10(3)/ L [facility] Blood 03/08/2021 12:4 7 PM EDT 03/08/2021 12:57 PM EDT Narrative Resulting Agency Comment Spec In Lab Ashanti May MD HEMATOLOGY ORDERABLE S [facility] [place] [address] * Phosphorus (03/08/2021 12:47 PM EDT) Phosphorus 2.7 2.5 - 4.5 mg/dL [facility] Blood 03/08/2021 12:4 7 PM EDT 03/08/2021 12:57 PM EDT Narrative Resulting Agency Comment Spec In Lab Kendall Khalil MD CHEMISTRY ORDERABLES Performing Organization Address [facility] Co de Phone Number [facility] [place] [address] * Magnesium (03/08/2021 12:47 PM EDT) Magnesium 0.70 0.69 - 1.07 mmol/L [facility] Blood 03/08/2021 12:4 7 PM EDT 03/08/2021 12:57 PM EDT Narrative Resulting Agency Comment Spec In Lab Kendall Khalil MD CHEMISTRY ORDERABLES Performing Organization Address [facility] Co de Phone Number [facility] [place] [address] * (ABNORMAL) Basic Metabolic Panel (non-fasting) (03/08/2021 12:47 PM EDT) Glucose 109 65 - 199 mg/dL [facility] Comment:Diabetes: >=200 mg/d L plus symptoms Blood Urea Nitrogen 12 10 - 20 mg/dL [facility] Creatinine 0.78(L) 0.80 - 1.50 mg/dL [facility] Sodium 137 135 - 145 mmol/L [facility] Potassium 4.0 3.5 - 5.0 mmol/L [facility] Comment: Please note: ??Patients with WBC >100,000 may have falsely elevated Potassium levels. ??For accurate Potassium quantification in these patients send serum separator tube (gold top) for subsequent determinations. ??Contact the Clinical Chemistry Laboratory if there are any questions. Chloride 101 98 - 107 mmol/L [facility] Carbon Dioxide 26 22 - 31 mmol/L [facility] Anion Gap 10 5 - 15 mmol/L [facility] Calcium 8.5 8.5 - 10.5 mg/dL [facility] Est Glomerular Filtration Rate 91 >=60 mL/min/1. 73 m?? [facility] Comment: This patient? s estimated [...] In Lab Kendall Khalil MD CHEMISTRY ORDERABLES [facility] [place] [address] * CT Head wo Contrast (Generic) (03/08/2021 [...] who have questions please contact the health post acute care registered nurse that requested your imaging first. ? Narrative [...] patients who have questions please contactthe health post acute care registered nurse that requested your imaging first. Kendall Khalil MD IMG CT ORDERABLES * (ABNORMAL) Hemogram (03/08/2021 3:56 AM EDT) [facility] White Blood Cell 9.8(H) 4.0 - 9.5 x10(3)/ L [facility] Red Blood Cell 3.75(L) 4.58 - 5.54 x10(6)/mc L [facility] Hemoglobin 11.2(L) 13.7 - 16.5 gm/dL [facility] Hematocrit 33.6(L) 40.5 - 48.5 % [facility] Mean Cell Volume 89.6 82.9 - 93.1 fL [facility] Mean Cell Hemoglobin 29.9 27.5 - 32.1 pg [facility] Mean Cell Hemoglobin Concentration 33.3 32.0 - 35.7 gm/dL [facility] Platelet 165 145 - 357 x10(3)/[facility] RDW Standard Deviation 44.4 36.0 - 45.0 [facility] RDW coefficient of variation 13.5 11.4 - 13.8 % [facility] Mean Platelet Volume 10.3 7.6 - 12.9 [facility] NRBC% auto 0.0 % [facility] NRBC Absolute 0.000 0.000 - 0.000 x10(3)/[facility] Blood 03/08/2021 3:56 AM EDT 03/08/2021 4:10 AM EDT Narrative Resulting Agency Comment Spec In Lab Jian Olivarez MD HEMATOLOGY ORDERABLE S [facility] [place] [address] * (ABNORMAL) Differential, Automated (03/08/2021 3:56 AM EDT) Pathologist [facility] Neutrophil % 79.2 % [facility] Neutrophil Absolute 7.71(H) 1.70 - 6.10 x10(3)/ L [facility] Lymph % 9.6 % [facility] Lymphocytes Abs 0.9 0.9 - 3.2 x10(3)/[facility] Monocyte % 9.1 % [facility] Monocyte Abs 0.9 0.3 - 0.9 x10(3)/[facility] Eos % 1.3 % [facility] Eosinophils Abs 0.1 0.0 - 0.4 x10(3)/[facility] Basophil % 0.4 % [facility] Baso Absolute 0.0 0.0 - 0.1 x10(3)/[facility] Immature Gran % 0.40 % [facility] Comment: Immature granulocytes(IG's)percentage and absolute count will include metamyelocytes, myelocytes, and promyelocytes. Blood smears from CBCs yielding IG's will be scanned manually for concordance. If this scan disagrees with the automated IG or if promyelocytes are noted, a manual differential will be performed. Immature Gran Absolute 0.04 0.00 - 0.04 x10(3)/[facility] Blood 03/08/2021 3:56 AM EDT 03/08/2021 4:10 AM EDT Narrative Resulting Agency Comment Spec In Lab Jian Olivarez MD HEMATOLOGY ORDERABLE S Performing Organization Address City/State/[facility] Co de Phone Number [facility] [place] [address] * XR Chest PA & Lateral (Generic) [...] who have questions please contact the health post acute care registered nurse that requested your imaging first. ? Electronically signed by: Tirso Burton MD, [facility] ([phone]), at 03/08/2021 4:51 AM Narrative 03/08/2021 4:51 [...] patients who have questions please contactthe health post acute care registered nurse that requested your imaging first. Electronically signed by: Tirso Burton MD, [facility]([phone]), at 03/08/2021 4:51 AM Kendall Khalil MD IMG DX ORDERABLES * APTT (03/06/2021 2:00 PM EDT) Partial Thromboplastin Time 32 25 - 37 sec [facility] Comment: The PTT is NOT appropriate for heparin monitoring. Use the Anti-Xa level for heparin monitoring (HEP UFH) or LMWH monitoring (HEP LMW). A PTT less than 37 seconds generally indicates adequate hemostasis. Blood specimen (specimen) 03/06/2021 2:00 PM EDT 03/06/2021 2:10 PM EDT Narrative Resulting Agency Comment Spec In Lab Kendall Khalil MD HEMATOLOGY ORDERABLE S [facility] [place] [address] * (ABNORMAL) Prothrombin Time (03/06/2021 2:00 PM EDT) Prothrombin Time 15.9(H) 9.4 - 12.5 sec [facility] International Normalization Ratio 1.4 [facility] Comment: An INR <2.0 indicates [...] Lab Kendall Khalil MD HEMATOLOGY ORDERABLE S [facility] [place] [address] * XR Chest One View (03/06/2021 1:06 [...] who have questions please contact the health post acute care registered nurse that requested your imaging first. ? Electronically signed by: GERMANIA BLAIR MD, [facility] ([phone]), at 03/06/2021 2:55 PM Narrative 03/06/2021 2:55 [...] patients who have questions please contactthe health post acute care registered nurse that requested your imaging first. Electronically signed by: GERMANIA BLAIR MD, [facility]([phone]), at 03/06/2021 2:55 PM Kendall Khalil MD IMG DX ORDERABLES * Specimen to Pathology (03/06/2021 10:57 AM EDT) AP Specimen 03/06/2021 10:5 7 AM EDT 03/06/2021 10:57 AM EDT Narrative [facility] - 03/06/2021 10:57 AM EDT Specimen requisition ordered. ??Separate Pathology report to follow Kendall Khalil MD PATHOLOGY/CYTOLOGY O RDERABLES [facility] [place] [address] * Surgical Pathology Report (03/06/2021 10:56 AM EDT) Final Diagnosis [id number] ? Location: [facility]; [facility]; A The signing pathologist has (i) examined the relevant preparation(s) for the specimen(s) and (ii) rendered or confirmed the diagnosis(es). . 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 Mesothelial reactive atypia and inflammation. Electronically signed by: ?Renetta Fraga DO Verified: ??03/12/2021 8:34 ?? Pathologist Performed at: ??-[facility] [place]. [place], [place], [place] ADDITIONAL STUDIES Immunohistochemistry Studies: Formalin-fixed, paraffin-embedded [...] occupies 80% of the parenchymal volume. Sections/Processing: Emergency Services Dispatcher sections in 4 cassettes as follows: ?A1: ??Stapled parenchymal margin, en face ?A2-A4: ??Emergency Services Dispatcher parenchyma with bleb and adhesions ??erjg 03/12/2021 8:34 AM EDT [facility] LUNG STRUCTURE / Unknown 03/06/2021 10:56 AM EDT 03/06/2021 10:56 AM EDT Kendall Khalil MD PATHOLOGY/CYTOLOGY O DON Performing Organization Address City/[facility]/ZIP Co de Phone Number [facility] [place] [address] * Prepare thawed plasma (03/06/2021 7:20 AM EDT) Dispensed? Yes [facility] Blood specimen (specimen) 03/06/2021 7:20 AM EDT 03/06/2021 7:17 AM EDT Narrative Resulting Agency Comment Spec In Lab Kendall Khalil MD BLOOD BANK PRODUCT O RDERAJUAN Performing Organization Address City/[facility]/ZIP Co de Phone Number [facility] [place] [address] * (ABNORMAL) Prothrombin Time (03/06/2021 4:50 AM EDT) [facility] Prothrombin Time 20.6(H) 9.4 - 12.5 sec [facility] International Normalization Ratio 1.8 [facility] Comment: An INR <2.0 indicates [...] MD HEMATOLOGY ORDERABLE S Performing Organization Address [facility]/ZIP Co de Phone Number [facility] [place] [address] * SCAN DOC: LAB (03/06/2021 12:00 AM EDT) Narrative 03/06/2021 12:00 AM EDT Ordered by an unspecified provider. Scanning Provider MEDIA MGR SCAN EXT O RDR/RSLT * Type and Screen Validity (03/05/2021 6:10 PM EDT) [facility] T&S only valid at [facility] Comment:This Type and Screen result is only valid at the [facility] Blood specimen (specimen) 03/05/2021 6:10 PM EDT 03/05/2021 6:15 PM EDT Narrative Resulting Agency Comment Spec In Lab Kenneth Newby MD BLOOD BANK LAB ORD ERABLES [facility] [place] [address] * ABORH Recheck Status (03/05/2021 6:10 PM EDT) ABORH Recheck Order Order Placed [facility] ABORH Type Recheck Complete [facility] Blood specimen (specimen) 03/05/2021 6:10 PM EDT 03/05/2021 6:15 PM EDT Narrative Resulting Agency Comment Spec In Lab Kenneth Newby MD BLOOD BANK LAB ORD ERABLES [facility] [place] [address] * Antibody screen (03/05/2021 6:10 PM EDT) Pathologist [facility] Ab Screen Interp Negative [facility] Expires at [id number] on: 03/08/2021 [facility] Blood specimen (specimen) 03/05/2021 6:10 PM EDT 03/05/2021 6:15 PM EDT Narrative Resulting Agency Comment Spec In Lab Kenneth Newby MD BLOOD BANK LAB ORD ERABLES [facility] [place] [address] * ABO/Rh Typing (03/05/2021 6:10 PM EDT) ABORH Type A Neg [facility] Blood specimen (specimen) 03/05/2021 6:10 PM EDT 03/05/2021 6:15 PM EDT Narrative Resulting Agency Comment Spec In Lab Kenneth Newby MD BLOOD BANK LAB ORD ERABLES [facility] [place] [address] * Differential, Automated (03/05/2021 4:21 PM EDT) Neutrophil % 68.0 % [facility] Neutrophil Absolute 4.90 1.70 - 6.10 x10(3)/mcL [facility] Lymph % 17.1 % [facility] Lymphocytes Abs 1.2 0.9 - 3.2 x10(3)/[facility] Monocyte % 9.4 % [facility] Monocyte Abs 0.7 0.3 - 0.9 x10(3)/[facility] Eos % 4.6 % [facility] Eosinophils Abs 0.3 0.0 - 0.4 x10(3)/[facility] Basophil % 0.8 % [facility] Baso Absolute 0.1 0.0 - 0.1 x10(3)/[facility] Immature Gran % 0.10 % [facility] Comment: Immature granulocytes(IG's)percentage and absolute count will include metamyelocytes, myelocytes, and promyelocytes. Blood smears from CBCs yielding IG's will be scanned manually for concordance. If this scan disagrees with the automated IG or if promyelocytes are noted, a manual differential will be performed. Immature Gran Absolute 0.01 0.00 - 0.04 x10(3)/[facility] Blood specimen (specimen) 03/05/2021 4:21 PM EDT 03/05/2021 4:37 PM EDT Narrative Resulting Agency Comment Spec In Lab Kota Leyva MD HEMATOLOGY ORDERABLE S [facility] [place] [address] * (ABNORMAL) Hemogram (03/05/2021 4:21 PM EDT) White Blood Cell 7.2 4.0 - 9.5 x10(3)/ L [facility] Red Blood Cell 4.60 4.58 - 5.54 x10(6)/ L [facility] Hemoglobin 13.7 13.7 - 16.5 gm/dL [facility] Hematocrit 40.4(L) 40.5 - 48.5 % [facility] Mean Cell Volume 87.8 82.9 - 93.1 fL [facility] Mean Cell Hemoglobin 29.8 27.5 - 32.1 pg [facility] Mean Cell Hemoglobin Concentration 33.9 32.0 - 35.7 gm/dL [facility] Platelet 197 145 - 357 x10(3)/mc L [facility] RDW Standard Deviation 44.7 36.0 - 45.0 fL [facility] RDW coefficient of variation 13.8 11.4 - 13.8 % [facility] Mean Platelet Volume 10.0 7.6 - 12.9 fL [facility] NRBC% auto 0.0 % [facility] NRBC Absolute 0.000 0.000 - 0.000 x10(3)/mc L [facility] Blood specimen (specimen) 03/05/2021 4:21 PM EDT 03/05/2021 4:37 PM EDT Narrative Resulting Agency Comment Spec In Lab Kota Leyva MD HEMATOLOGY ORDERABLE S [facility] [place] [address] * (ABNORMAL) Basic Metabolic Panel (non-fasting) (03/05/2021 4:21 PM EDT) Glucose 96 65 - 199 mg/dL [facility] Comment:Diabetes: >=200 mg/d L plus symptoms Blood Urea Nitrogen 23(H) 10 - 20 mg/dL [facility] Creatinine 0.90 0.80 - 1.50 mg/dL [facility] Sodium 138 135 - 145 mmol/L [facility] Potassium 4.5 3.5 - 5.0 mmol/L [facility] Comment: Please note: ??Patients with WBC >100,000 may have falsely elevated Potassium levels. ??For accurate Potassium quantification in these patients send serum separator tube (gold top) for subsequent determinations. ??Contact the Clinical Chemistry Laboratory if there are any questions. Chloride 101 98 - 107 mmol/L [facility] Carbon Dioxide 27 22 - 31 mmol/L [facility] Anion Gap 10 5 - 15 mmol/L [facility] Calcium 9.2 8.5 - 10.5 mg/dL [facility] Est Glomerular Filtration Rate 86 >=60 mL/min/1. 73 m?? [facility] Comment: This patient? s estimated [...] Lab Kenneth Newby MD CHEMISTRY ORDERABL ES [facility] [place] [address] * (ABNORMAL) APTT (03/05/2021 4:21 PM EDT) Partial Thromboplastin Time 44(H) 25 - 37 sec [facility] Comment: The PTT is NOT appropriate for heparin monitoring. Use the Anti-Xa level for heparin monitoring (HEP UFH) or LMWH monitoring (HEP LMW). A PTT less than 37 seconds generally indicates adequate hemostasis. Blood specimen (specimen) 03/05/2021 4:21 PM EDT 03/05/2021 4:37 PM EDT Narrative Resulting Agency Comment Spec In Lab Kenneth Newby MD HEMATOLOGY ORDERAB LES Performing Organization Address City/[facility] Co de Phone Number [facility] [place] [address] * (ABNORMAL) Prothrombin Time (03/05/2021 4:21 PM EDT) [facility] Prothrombin Time 24.3(H) 9.4 - 12.5 sec [facility] International Normalization Ratio 2.1 [facility] Comment: An INR <2.0 indicates [...] MD HEMATOLOGY ORDERAB LES Performing Organization Address [facility] Co de Phone Number [facility] [place] [address] * COVID-19 PCR (03/05/2021 3:52 PM EDT) [facility] SARS-CoV-2 RNA (Rapid) Not Detected Not Detected [facility] Comment: This result should be [...] using the Simplexa COVID-19 Direct Assay by [employer] as authorized by the FDA issued Emergency [...] Department of Pathology and Laboratory Medicine at [facility], certified under the Clinical Laboratory Improvement [...] fact sheets at the following FDA website: https://www.fda.gov/medical-devices/sbtwmhhscye-lgnxnkx-9748-paajy-86-pxzmqsnup- use-a dundexdeniqno-xvybvuf-pprqfym/rbfkm-zszdvfzfzfz-axtr SARS-CoV-2 Source METER CALIBRATOR Swab FRANCISCO JAVIER LE[facility] Nasopharyngeal swab (specimen) 03/05/2021 3:52 PM EDT 03/05/2021 4:43 PM EDT Comment:Symptoms->Surveillan ce Narrative Resulting Agency Comment Spec In Lab Kenneth Newby MD MICROBIOLOGY - GEN ERAL ORDERABLES [facility] [place] [address] * EKG 12 Lead (03/05/2021 3:30 PM EDT) Ventricular rate 73 BPM MUSE SYSTEM Atrial Rate 73 BPM MUSE SYSTEM P-R Interval 178 ms MUSE SYSTEM QRS Duration 176 ms MUSE SYSTEM Q-T Interval 476 ms MUSE SYSTEM QTC Calculated (Bezet) 524 ms MUSE SYSTEM Calculated P [place] 30 degrees MUSE SYSTEM Calculated R [place] -103 degrees MUSE SYSTEM Calculated T [place] 62 degrees MUSE SYSTEM INTERPRETATION Atrial-sens ed [...] Routine documented in this encounter Care Teams Distribution Agent Relationship Specialty Start Date End Date Linda Mccray MD [address] [place] [address] PCP - General Family Medicine 10/20/16 documented as of this encounter
--- OUTSIDE RECORDS SUMMARY | 2024-08-30 13:33 | XMS_ITS | Encounter Summary ---
[place] [address] Care Team Providers Care Cloth Printing Utility Worker Name Role Phone Linda Mccray MD Primary Care Provider [phone] Reason for Visit * Auth/Cert Specialty Diagnoses / Procedures Referred By Contac t Referred To Contact Diagnoses Recurrent spontaneous pneumothorax LARGE LEFT PNEUMOTHORAX Referral ID Status Reason Start Date Expiration Date Visits Re quested Visits Authorized [id number] 1 1 Encounter Details Date Type Department Care Team ([facility] st Contact Info) Description 03/06/2021 8:43 AM EDT Anesthesia Event [place] [phone] Tirso Mukherjee MD [facility] [place] [address] Elaine Ulrich MD [facility] [place] [address] Anesthesia Record Procedure Summary Procedure Name Responsible [...] basilic vein (medial side of arm), right; gvqt-pzq-hhvqvf catheter system; 20 gauge; no longer indicated, [...] 0918; metacarpal vein (top of hand), left; feed-nro-zugopi catheter system; 18 gauge; L Serg WISE; [...] Procedure Summary Date: 03/06/21 Room / Location: [facility] [place] [address] [place] [address] MAIN OR Anesthesia Start: 842 Anesthesia Stop: [...] All Anesthesia Providers: Anesthesiologist: Tirso Mukherjee MD Supervisory Geographer: Elaine Ulrich MD Vitals Value Taken Time BP 122/60 03/06/21 1215 Temp Pulse 66 03/06/21 1218 Resp 14 03/06/21 1218 SpO2 93 % 03/06/21 1218 Pain Level Vitals shown include unvalidated device data. Patient Location: PACU/[facility] Level of Consciousness: Conscious but Sleepy Pain [...] depletion Added automatically from request for surgery [id number] ??? Chronic bullous emphysema ??? Clostridium difficile [...] 4.67) performed by Lena Clark MD at [facility] ENDOSCOPY Social History Tobacco Use ??? [...] w recurrent PTX who was [place] [facility] [place] mgt of recurrent L PTX [...] tolerance: Pacemaker info: Generator: Medtronic [id number] serial# [id number] implant 07/31/2020 Device Settings (unchanged from prior): [...] EDT documented in this encounter Care Teams Cloth Printing Utility Worker Relationship Specialty Start Date End Date Linda Mccray MD [address] [place] [address] PCP - General Family Medicine 10/20/16 documented as of this encounter
--- OUTSIDE RECORDS SUMMARY | 2024-08-30 13:34 | XMS_ITS | Encounter Summary ---
Author Organization [facility] [place] [address] Care Team Providers Care Medical And Health Services Manager Name Role Phone Linda Mccray MD Primary Care Provider [phone] Encounter Details Date Type Department Care Team ([facility] Contact Info) Description 07/28/2020 Telephone [place]rophys[place] [phone] Cassandra Champion Social History Tobacco Use Types [...] - 07/28/2020 11:24 AM EDT EP Procedure Unclaimed Property Manager Patient Coordination Checklist DATE CALLED: 07/28/20 DATE OF PROCEDURE: 08/04/20 PERFORMING MD [place] PROCEDURE TYPE: DC PCM GEN REPLACEMENT COMPANY: [employer] ANESTHESIA TYPE: MOD IMAGING NEEDED: N/A DATES OF SCHEDULED IMAGING: N/A ORDERS: Y ANTICOAG TYPE: WARFARIN MANAGED BY (IF ON WARFARIN): FACILITY NAME - [facility] MD Georgette MCCRAY CONTACT INFO - [phone] DATE OF INR PRIOR TO PROCEDURE: 07/31/20 ORIGINALLY ADVISED PATIENT INR NEEDED ON 08/03 BUT WILL CALL PATIENT BACK AND ADVISE OF CORRECT DATE OF 07/31 documented in this encounter Plan of Treatment Not on file documented as of this encounter Visit Diagnoses Not on filedocumented in this encounter Care Teams Medical And Health Services Manager Relationship Specialty Start Date End Date Linda Mccray MD [address] [place] [address] PCP - General Family Medicine 10/20/16 documented as of this encounter
--- OUTSIDE RECORDS SUMMARY | 2024-08-30 13:34 | XMS_ITS | Encounter Summary ---
Author Organization [facility] Address [facility] [place] [address] Care Team Providers Care Electrotype Finisher Name Role Phone Linda Mccray MD Primary Care Provider [phone] Encounter Details Date Type Department Care Team ([facility] st Contact Info) Description 08/10/2020 Telephone Cardiology at [address] [phone] Katerina Reina RN Social History Tobacco Use [...] filedocumented in this encounter Care Teams Electrotype Finisher Relationship Specialty Start Date End Date Linda Mccray MD [address] [place] [address] PCP - General Family Medicine 10/20/16 documented as of this encounter
--- OUTSIDE RECORDS SUMMARY | 2024-08-30 13:34 | XMS_ITS | Encounter Summary ---
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 Continues with mild lightheadedness, worsens with exertion. Case discussed with Dr. Margot Chaney who recommended transfer to [facility]. BP 156/66, 117/68 Pertinent Diagnostic Findings: Troponin negative PT/INR 35.3/3.6 BUN/creat 19/0.99 Plan: Accepted in transfer pending bed availability. I did let Rita Becker RN with EP know of patient'scurrent status at [facility] and plans to transfer to . COVID screening questions negative, test pending at [facility]. I have not personally interviewed or examined this patient; I have not personally reviewed EKGs. I encouraged Andrés Bishop APRN to contact us if there is any change in symptoms, decision-making, or further need for guidance in management. Malou Olivares APRN Cardiovascular Medicine Pager [phone] 07/29/2020 documented in this encounter Plan of Treatment Not on file documented as of this encounter Visit Diagnoses Not on filedocumented in this encounter Care Teams Line Tester Relationship Specialty Start Date End Date Linda Mccray MD [address] [place] [address] PCP - General Family Medicine 10/20/16 documented as of this encounter
--- OUTSIDE RECORDS SUMMARY | 2024-08-30 13:34 | XMS_ITS | Encounter Summary ---
[place] [address] Care Team Providers Care Rotary Furnace Operator Name Role Phone Linda Mccray MD Primary Care Provider [phone] Reason for Referral * Diagnostic Test (Routine) - Closed Specialty Diagnoses / Procedures Referred By Contac t Referred To Contact Radiology Diagnoses Recurrent traumatic pneumothorax, subsequent encounter Procedures CT Chest w Contrast [facility] Thoracic Surg [address] [place] [phone] Referral ID Status Reason Start Date Expiration Date V isits Requested Visits Authorized [id number] Closed Specialty Service Requested 11/16/2016 11/16/2017 1 1 Encounter Details Date Type Department Care Team ([facility] st Contact Info) Description 11/16/2016 Orders [place] [phone] Nydia Mauricio RN Recurrent traumatic [...] encounter documented in this encounter Care Teams Rotary Furnace Operator Relationship Specialty Start Date End Date Linda Mccray MD [address] [place] [address] PCP - General Family Medicine 10/20/16 documented as of this encounter
--- OUTSIDE RECORDS SUMMARY | 2024-08-30 13:34 | XMS_ITS | Encounter Summary ---
Author Organization [facility] [place] [address] Care Team Providers Care Beater And Pulper Feeder Name Role Phone Linda Mccray MD Primary Care Provider [phone] Encounter Details Date Type Department Care Team (Late st Contact Info) Description 01/26/2017 1:00 PM EDT - 01/26/2017 2:00 PM EDT [place] [address] Lena Clark MD [facility] [place] [address] COLONOSCOPY, POLYPECTOMY, REMOVAL LESION BY SNARE (WRVU [...] to be checked. Monday-Monday Same Day Endo [phone] Otherwise contact [phone] and ask to speak to the vice president of brand management companion Follow up care is a sunshine part [...] a dual lead Medtronic pacemaker implanted at [facility], followed by Dr. Faria. Device Data: Medtronic Adapta ADDRO1 [id number] 09/26/2008 Atrial [id number] 09/26/2008 Ventricular [id number] 09/26/2008 AAI<=>DDD 60/130 P wave: 2.8mV R wave: 11.2-15.6mV Atrial impedance: 441 ohms Ventricular impedance: 580 ohms Atrial threshold: 0.75V @ 0.4ms Ventricular threshold: 1.25V @ 0.4ms Mode switch: 31; <0.1% -VS 12.5%; -SUPERVISOR OF GUIDANCE AND TESTING 86.3%; AP-SUPERVISOR OF GUIDANCE AND TESTING 1.2% Impression and Plan: 66yo man s/p upper GI with polypectomy using electrocautery. Device function confirmed normal. Provider: [place] Salas Provider#: [id number] Consult attending physician: Evangelist Casillas MD documented [...] Report (01/26/2017 1:49 PM EDT) Final Diagnosis [id number] ?Location: 4T; EA10; A The signing pathologist [...] x 0.3 x 0.2 cm. Tissue Description: [place] short polypoid tissue. Sections/Proces sing: Inked and bisected (T1) ??ah 01/30/2017 1:50 PM EDT [facility] GI Biopsy 01/26/2017 1:49 PM EDT 01/26/2017 1:49 PM EDT L Cade Clark MD PATHOLOGY/CYTOLOGY O DON Performing Organization Address [facility]/[place] [address] * Specimen to Pathology (surgical or derm) (01/26/2017 1:49 PM EDT) AP Specimen 01/26/2017 1:49 PM EDT 01/26/2017 1:49 PM EDT Narrative [facility] - 01/26/2017 1:49 PM EDT Specimen requisition ordered. ??Separate Pathology report to follow L Cade Clark MD PATHOLOGY/CYTOLOGY O DON Performing Organization Address City/[facility]/[place] [address] * COLONOSCOPY (01/26/2017 12:20 PM EDT) COLONOSCOPY [facility] Endoscopy Procedure Date: 01/26/2017 12:20 PM ? Patient Name: [place] Neri ? Date of : 1950 ? Age: 66 ? Order #: [id number] ? Instrument Name: [id number] ? Procedure: ? Colonoscopy Indications: ? Screening [...] preparation was evaluated using ? the BBPS ([place] Bowel Preparation ? Scale) with scores of: [...] ? please call our office at ? [phone]. ? - For bright red rectal bleeding, [...] (CANCELED) 100 mL/hr, Intravenous, CONTINUOUS, Starting on Idalmsi 17 at 1245, Until Idalmis 17 at [...] RN) documented in this encounter Care Teams Beater And Pulper Feeder Relationship Specialty Start Date End Date Linda Mccray MD [address] [place] [address] PCP - General Family Medicine 10/20/16 documented as of this encounter
--- OUTSIDE RECORDS SUMMARY | 2024-08-30 13:34 | XMS_ITS | Encounter Summary ---
[place] [address] Care Team Providers Care Marketing Copywriter Name Role Phone Linda Mccray MD Primary Care Provider [phone] Reason for Referral * Diagnostic Test (Routine) - Closed Specialty Diagnoses / Procedures Referred By Contac t Referred To Contact Radiology Diagnoses Recurrent traumatic pneumothorax, subsequent encounter Procedures CT Chest w Contrast [facility] [address] [place] [phone] Referral ID Status Reason Start Date Expiration Date V isits Requested Visits Authorized [id number] Closed Specialty Service Requested 11/16/2016 11/16/2017 1 1 Reason for Visit * Diagnostic Test (Routine) - Closed Specialty Diagnoses / Procedures Referred By Contac t Referred To Contact Radiology Diagnoses Recurrent traumatic pneumothorax, subsequent encounter Procedures CT Chest w Contrast [facility] [address] [place] [phone] Referral ID Status Reason Start Date Expiration Date V isits Requested Visits Authorized [id number] Closed Specialty Service Requested 11/16/2016 11/16/2017 1 1 Encounter Details Date Type Department Care Team (Latest Contact Info) Description 11/18/2016 7:45 AM EST - 11/18/2016 11:59 PM EST Hospital [place] [address] Jl Sagastume MD [facility] DR THORACIC SURGERY [place] [phone] Recurrent traumatic pneumothorax, subsequent encounter Discharge Disposition: [...] mg documented in this encounter Care Teams Marketing Copywriter Relationship Specialty Start Date End Date Linad Mccray MD [address] [place] [address] PCP - General Family Medicine 10/20/16 documented as of this encounter
--- OUTSIDE RECORDS SUMMARY | 2024-08-30 13:34 | XMS_ITS | Encounter Summary ---
Author Organization [facility] Address [facility] [place] [address] Care Team Providers Care Farm Forestry And Garden Workers Name Role Phone Linda Mccray MD Primary Care Provider [phone] Encounter Details Date Type Department Care Team (Latest Contact Info) Description 11/11/2016 - 11/11/2016 11:59 PM EST Hospital Encounter Radiology Library at [facility] [place] [address] Jl Sagastume MD [facility] [place] [address] Pain Discharge Disposition: Home Social History Tobacco [...] DX Chest (11/11/2016 12:00 AM EST) Narrative [facility] - 11/16/2016 3:19 PM EST This exam is for storage only and is auto-finalizing. Jl Sagastume MD IMG FILM LIBRARY OR DERABLES [place], [place] documented in this encounter Visit Diagnoses Diagnosis Pain Generalized pain documented in this encounter Care Teams Farm Forestry And Garden Workers Relationship Specialty Start Date End Date Linda Mccray MD [address] [place] [address] PCP - General Family Medicine 10/20/16 documented as of this encounter
--- OUTSIDE RECORDS SUMMARY | 2024-08-30 13:34 | XMS_ITS | Encounter Summary ---
Author Organization [facility] [place] [address] Care Team Providers Care Maintenance Painter Name Role Phone Linda Mccray MD Primary Care Provider [phone] Encounter Details Date Type Department Care Team (Latest Contact Info) Description 11/22/2020 - 11/22/2020 11:59 PM EST Hospital Encounter Non-[place] [phone] Leonardo Casillas MD [facility] [place] [address] CHB (complete heart block) Discharge Disposition: Home [...] activity was detected. __ Leonardo Casillas MD, [facility] Cardiac Electrophysiology __ More detailed pacemaker and lead specifics, and other interrogation data, are available under the Card/Vasc tab. Leonardo Casillas MD IMPLANTABLE CARDIAC DEVICE documented in this encounter Visit Diagnoses Diagnosis CHB (complete heart block) Atrioventricular block, complete documented in this encounter Care Teams Maintenance Painter Relationship Specialty Start Date End Date Linda Mccray MD [address] [place] [address] PCP - General Family Medicine 10/20/16 documented as of this encounter
--- OUTSIDE RECORDS SUMMARY | 2024-08-30 13:34 | XMS_ITS | Encounter Summary ---
Author Organization [facility] [place] [address] Care Team Providers Care Resp Therapist Name Role Phone Linda Mccray MD Primary Care Provider Reason for Visit * Consultation (Routine) - Closed Specialty Diagnoses / Procedures Referred By Contac t Referred To Contact Pulmonology Diagnoses SOB (shortness of breath) chronic bullous emphysema shortness of breath Kiara Romo APRN [address] [place] [address] [facility] [address] [place] [phone] Referral ID Status Reason Start Date Expiration Date V isits Requested Visits Authorized [id number] Closed Consult, Test & Treat [facility] 07/19/2017 07/19/2018 1 1 Encounter Details Date Type Department Care Team ([facility] st Contact Info) Description 09/08/2017 10:00 AM EST Office [place] [address] Martín Davis MD [facility] [place] [address] [place] (dyspnea on exertion) Social History [...] the original note were not included. [facility] Section of Pulmonary Medicine Outpatient Consultation Date of Encounter: 09/08/2017 Referring Provider: Linda Mccray Md [address] [place] [phone] PCP: Linda Mccray MD Reason for Consult: [...] 4.67) performed by Lena Clark MD at [facility] Medications: Current Outpatient Prescriptions Medication [...] and heart disease. Will also check for qrvcp-1-sqymbgrupze levels. Follow up: 5-6 weeks Thank you for the referral Patient was seen for a total of 45 minutes, with 35 minutes of that time spent in discussion with the patient regarding his current clinical condition, test results, and further management. Martín Davis MD Pulmonary and Critical Care Medicine Pager #[phone] documented in this encounter Plan of Treatment [...] abnormality documented in this encounter Care Teams Resp Therapist Relationship Specialty Start Date End Date Linda Mccray MD [address] [place] [address] PCP - General Family Medicine 10/20/16 documented as of this encounter
--- OUTSIDE RECORDS SUMMARY | 2024-08-30 13:34 | XMS_ITS | Encounter Summary ---
Author Organization [facility] Address [facility] [place] [address] Care Team Providers Care Die Developer Name Role Phone Linda Mccray MD Primary Care Provider [phone] Reason for Visit * Reason Comments Chest Injury * Consultation (Routine) - Closed Specialty Diagnoses / Procedures Referred By Contac t Referred To Contact Thoracic Surgery Diagnoses Recurrent Left Pneumothoarx Procedures Consult, Test & Treat Luke Harper MD [facility] [place] [address] Jl Sagastume MD [facility] [place] [address] Referral ID Status Reason Start Date Expiration Date V isits Requested Visits Authorized [id number] Closed Consult, Test & Treat 11/16/2016 11/16/2017 1 1 Encounter Details Date Type Department Care Team ([facility] st Contact Info) Description 11/18/2016 10:15 AM EST Office [place] [address] Jl Sagastume MD [facility] [place] [address] Chronic bullous emphysema Social History Tobacco Use [...] Attending Outpatient Consultation Note Jl Sagastume MD [place] [address] FAX: Referring Provider: Luke Harper MD [address] [place], [place] [address] [address] Reason for Consultation: Traumatic Pneumothorax, concern for persistent pneumothorax Today, 11/18/2016, I saw Mr. Neri in the Thoracic Surgery Clinic at [facility] in consultation for a Left possible persistent [...] treatment and request to be transferred to [facility] for evaluation by thoracic surgery. He is [...] would prefer to get this done at [facility], and I will leave it up to Dr. Harper to order this. If he should have any further questions or concerns, he should feel free to contact us. Jl Sagastume MD 11/18/2016 documented in this encounter Plan of Treatment Not on file documented as of this encounter Visit Diagnoses Diagnosis Chronic bullous emphysema Emphysematous bleb documented in this encounter Care Teams Die Developer Relationship Specialty Start Date End Date Linda Mccray MD [address] [place] [address] PCP - General Family Medicine 10/20/16 documented as of this encounter
--- OUTSIDE RECORDS SUMMARY | 2024-08-30 13:34 | XMS_ITS | Encounter Summary ---
Author Organization [facility] Address [facility] [place] [address] Care Team Providers Care Edging Machine Setter Name Role Phone Linda Mccray MD Primary Care Provider [phone] Encounter Details Date Type Department Care Team (Late st Contact Info) Description 07/28/2020 Telephone Cardiology at [address] [phone] Serenity Fraser Social History Tobacco Use Types [...] Fraser - 07/28/2020 2:54 PM EDT London Daron [phone] called for you today. He said that you told him if he ever needed anything to give you a call. His cell is [phone] paul e [phone], he said you would know whats going on with him in regards to his pacemaker but he wanted to talk with you about some symptoms he is having and how terrible and anxious he is feeling. Thanks! documented in this encounter Plan of Treatment Not on file documented as of this encounter Visit Diagnoses Not on filedocumented in this encounter Care Teams Edging Machine Setter Relationship Specialty Start Date End Date Linda Mccray MD [address] [place] [address] PCP - General Family Medicine 10/20/16 documented as of this encounter
--- OUTSIDE RECORDS SUMMARY | 2024-08-30 13:34 | XMS_ITS | Encounter Summary ---
Author Organization [facility] [place] [address] Care Team Providers Care Automobile Inspector Name Role Phone Linda Mccray MD Primary Care Provider [phone] Encounter Details Date Type Department Care Team (Latest Contact Info) Description 10/24/2017 2:00 PM EST - 10/24/2017 11:59 PM EST Hospital Encounter [place] [phone] [place] (dyspnea on exertion) Discharge Disposition: Home [...] abnormality documented in this encounter Care Teams Automobile Inspector Relationship Specialty Start Date End Date Linda Mccray MD [address] [place] [address] PCP - General Family Medicine 10/20/16 documented as of this encounter
--- OUTSIDE RECORDS SUMMARY | 2024-08-30 13:34 | XMS_ITS | Encounter Summary ---
[place] [address] Care Team Providers Care Elevator Conductor Name Role Phone Linda Mccray MD Primary Care Provider [phone] Encounter Details Date Type Department Care Team (Late st Contact Info) Description 07/19/2017 Telephone [place] [phone] [place] Social History Tobacco Use Types [...] Requested CXR, blood work, and PFT's from [place] for Dr Sagastume documented in this encounter Plan of Treatment Not on file documented as of this encounter Visit Diagnoses Not on filedocumented in this encounter Care Teams Elevator Conductor Relationship Specialty Start Date End Date Linda Mccray MD [address] [place] [address] PCP - General Family Medicine 10/20/16 documented as of this encounter
--- OUTSIDE RECORDS SUMMARY | 2024-08-30 13:34 | XMS_ITS | Encounter Summary ---
Author Organization [facility] Address [facility] [place] [address] Care Team Providers Care E M Assembler Name Role Phone Linda Mccray MD Primary Care Provider [phone] Encounter Details Date Type Department Care Team (Late st Contact Info) Description 07/29/2020 Notes Only Cardiology at [address] [address] Elmer Minor PA [facility] [place] [address] Social History Tobacco Use Types Packs/Day Years [...] on filedocumented in this encounter Care Teams E M Assembler Relationship Specialty Start Date End Date Linda Mccray MD [address] [place] [address] PCP - General Family Medicine 10/20/16 documented as of this encounter
--- OUTSIDE RECORDS SUMMARY | 2024-08-30 13:34 | XMS_ITS | Encounter Summary ---
Author Organization [facility] [place] [address] Care Team Providers Care Tubing Mill Setter Name Role Phone Linda Mccray MD Primary Care Provider [phone] Encounter Details Date Type Department Care Team (Late st Contact Info) Description 03/03/2021 Ancillary Procedure Radiology Library at [facility] [place], [facility] [place] [address] Navin Khalil MD [facility] [place] [address] Social History Tobacco Use Types Packs/Day Years [...] DX Chest (03/03/2021 12:00 AM EDT) Narrative [facility] - 03/05/2021 8:53 AM EDT This exam is auto-finalizing. It's purpose is for storage only. Navin Khalil MD [facility] FILM LIBRARY ORD ERABLES [place], [place] documented in this encounter Visit Diagnoses Not on filedocumented in this encounter Care Teams Tubing Mill Setter Relationship Specialty Start Date End Date Linda Mccray MD [address] [place] [address] PCP - General Family Medicine 10/20/16 documented as of this encounter
--- OUTSIDE RECORDS SUMMARY | 2024-08-30 13:34 | XMS_ITS | Encounter Summary ---
Author Organization [facility] [place] [address] Care Team Providers Care Paid Search Manager Name Role Phone Linda Mccray MD Primary Care Provider [phone] Reason for Visit * Auth/Cert Specialty Diagnoses / Procedures Referred By Lucas t Referred To Contact Diagnoses Pacemaker complications, initial encounter Dizziness Referral ID Status Reason Start Date Expiration Date Visits Re quested Visits Authorized [id number] 1 1 Encounter Details Date Type Department Care Team ([facility] st Contact Info) Description 07/31/2020 10:33 AM EDT - 07/31/2020 11:33 AM EDT Surgery [place] [id number] Jordana Tarango MD [facility] [address] ELECTROPHYSIOLOGY PROCEDURE Social History Tobacco Use Types [...] depletion Added automatically from request for surgery [id number] ??? Chronic bullous emphysema ??? Clostridium difficile [...] requiring chest tube placement, who presented to [facility] via [facility] following symptomatic bradycardia that occurred [...] into Monday morning before he presented to [facility] with near-syncope. Since being admitted to [facility], he has not had any recurrence of symptoms but also admits he h as not tried to exert himself. ?? At [facility], patient had supratherapeutic INR 3.6 on admission 07/29/2020 and Coumdin was held. He was recommended transfer to [facility] for treatment of near-syncope and pacemaker complication. His INR on dayof transfer was 2.8. A Medtronic device interrogation on 07/29/2020 showed normal functioning pacemaker reverted to VVI backup pacing in setting of SAMEERA and predominant V-paced burden (95.5%) since then. He had a negative COVID-19 test on 07/29/2020. Hospital Course: -overnight stay -Successful GENERATOR CHANGE (MEDTRONIC MODEL) -INR 2.1 (goal 2.5-3.5) for detention outpatient care. Important Studies and Lab Data: Labs: [facility] Lab Results Component Value Date INR 2.1 [...] the incision. Make sure to use a asbestos cloth inspector (such as a towel) in between the [...] F. The office scheduling phone number is [phone]. ARM MOVEMENT RESTRICTIONS POST-IMPLANT - Do not raise your elbow on the operated side above the shoulder for 1 WEEK ONLY to allow incisionto heal. If you have any questions or concerns about this product, please call the office at [phone]. General Instructions None Discharge References/Attachments: Discharge References/Attachments None Inpatient Provider Contact Information: EP OBNKH - [id number] Electronically Signed By: Tan Pantoja MD 07/31/2020 [...] the incision. Make sure to use a asbestos cloth inspector (such as a towel) in between the [...] F. The office scheduling phone number is [phone]. ARM MOVEMENT RESTRICTIONS POST-IMPLANT - Do not raise your elbow on the operated side above the shoulder for 1 WEEK ONLY to allow incisionto heal. If you have any questions or concerns about this product, please call the office at [phone]. documented in this encounter Medications at Time [...] Note: Added automatically from request for surgery [id number] ??? Chronic bullous emphysema ??? Clostridium difficile [...] requiring chest tube placement, who presented to [facility] via [facility] following symptomatic bradycardia that occurred [...] into Monday morning before he presented to [facility] with near-syncope. Since being admitted to [facility], he has not had any recurrence of symptoms but also admits he h as not tried to exert himself. At [facility], patient had supratherapeutic INR 3.6 on admission 07/29/2020 and Coumdin was held. He was recommended transfer to [facility] for treatment of near-syncope and pacemaker complication. His INR on dayof transfer was 2.8. A ensemblitronic device interrogation on 07/29/2020 showed normal functioning pacemaker reverted to VVI backup pacing in setting of SAMEERA and predominant V-paced burden (95.5%) since then. He had a negative COVID-19 test on 07/29/2020. A 12-lead EKG at [facility] on 07/29/2020 showed v-paced rhythm [...] Patient is and lives with his in [place], [place]. He is a practicing Hinduism. He has no children. He works as [...] Pneumothorax on left Pertinent Medications: No current [facility]-ordered facility-administered medications on file. No current [facility]-ordered outpatient medications on file. Current Discharge Medication [...] file Gets together: Not on file Attends adventism service: Not on file Active member of [...] 2027 Attending: Jordana Tarango MD Service Pager: [phone] Staff addendum: I have seen and evaluated [...] PM EDT Procedure - Pulse Generator Replacement Car Restorer: ??Jordana Tarango M.D., M.H.S. Milker Machine(s): Delfino Pantoja MD (fellow) Indication: [place] Neri [...] condition. Implanted Hardware: Generator: Medtronic [id number] serial# [id number] implant 07/31/2020 Hardware retained and used (all implanted 09/26/2008): RV lead: Medtronic 5076-52 serial# [id number] RA lead: Medtronic 5076-52 serial# [id number] Removed hardware: Medtronic pulse generator Model#ADDR01 serial# [id number] implanted 09/26/2008 Device Settings (unchanged from prior): [...] was present throughout the procedure as the swinging cut off saw operator. ??Jordana Jeffries MD, was present throughout the period of sedation as documented by the sedation RN. Jodrana Tarango MD EP PROCEDURE ORDERAB LES * Heparin (unfractionated) Level (07/31/2020 3:34 AM EDT) UF Heparin 0.43 IU/mL [facility] Comment: Specimen drawn more than one [...] MD HEMATOLOGY ORDERABLE S Performing Organization Address City/State/RUST Co de Phone Number [facility] [place] [address] * Differential, Automated (07/31/2020 3:34 AM EDT) Neutrophil % 57.9 % [facility] Neutrophil Absolute 2.89 1.70 - 6.10 x10(3)/[facility] Lymph % 25.1 % [facility] Lymphocytes Abs 1.2 0.9 - 3.2 x10(3)/[facility] Monocyte % 10.8 % [facility] Monocyte Abs 0.5 0.3 - 0.9 x10(3)/[facility] Eos % 5.0 % [facility] Eosinophils Abs 0.2 0.0 - 0.4 x10(3)/[facility] Basophil % 1.0 % [facility] Baso Absolute 0.0 0.0 - 0.1 x10(3)/[facility] Immature Gran % 0.20 % [facility] Comment: Immature granulocytes(IG's)percentage and absolute count will include metamyelocytes, myelocytes, and promyelocytes. Blood smears from CBCs yielding IG's will be scanned manually for concordance. If this scan disagrees with the automated IG or if promyelocytes are noted, a manual differential will be performed. Immature Gran Absolute 0.01 0.00 - 0.04 x10(3)/[facility] Blood specimen (specimen) 07/31/2020 3:34 AM EDT 07/31/2020 3:41 AM EDT Narrative Resulting Agency Comment Spec In Lab Lc [facility] HEMATOLOGY ORDERABLE S Performing Organization Address City/State/RUST Co de Phone Number [facility] [place] [address] * (ABNORMAL) Hemogram (07/31/2020 3:34 AM EDT) White Blood Cell 5.0 4.0 - 9.5 x10(3)/mc L [facility] Red Blood Cell 4.35(L) 4.58 - 5.54 x10(6)/mc L [facility] Hemoglobin 12.7(L) 13.7 - 16.5 gm/dL [facility] Hematocrit 38.2(L) 40.5 - 48.5 % [facility] Mean Cell Volume 87.8 82.9 - 93.1 fL [facility] Mean Cell Hemoglobin 29.2 27.5 - 32.1 pg [facility] Mean Cell Hemoglobin Concentration 33.2 32.0 - 35.7 gm/dL [facility] Platelet 161 145 - 357 x10(3)/ L [facility] RDW Standard Deviation 47.2(H) 36.0 - 45.0 fL [facility] RDW coefficient of variation 14.8(H) 11.4 - 13.8 % [facility] Mean Platelet Volume 10.2 7.6 - 12.9 [facility] NRBC% auto 0.0 % [facility] NRBC Absolute 0.000 0.000 - 0.000 x10(3)/mc L [facility] Blood specimen (specimen) 07/31/2020 3:34 AM EDT 07/31/2020 3:41 AM EDT Narrative Resulting Agency Comment Spec In Lab Lc [facility] HEMATOLOGY ORDERABLE S Performing Organization Address [facility]/[place]UST Co de Phone Number [facility] [place] [address] * (ABNORMAL) Prothrombin Time (07/31/2020 3:34 AM EDT) Prothrombin Time 24.0(H) 9.4 - 12.5 sec [facility] International Normalization Ratio 2.1 [facility] Comment: An INR <2.0 indicates [...] MD HEMATOLOGY ORDERABLE S Performing Organization Address [facility]/ZIP Co de Phone Number [facility] [place] [address] * Heparin (unfractionated) Level (07/30/2020 5:43 PM EDT) UF Heparin <0.04 IU/mL [facility] Comment: Specimen drawn more than one [...] [facility] HEMATOLOGY ORDERABLE S Performing Organization Address City/State/RUST Co de Phone Number [facility] [place] [address] * Differential, Automated (07/30/2020 5:43 PM EDT) Neutrophil % 66.0 % [facility] Neutrophil Absolute 4.08 1.70 - 6.10 x10(3)/[facility] Lymph % 22.7 % [facility] Lymphocytes Abs 1.4 0.9 - 3.2 x10(3)/[facility] Monocyte % 7.5 % [facility] Monocyte Abs 0.5 0.3 - 0.9 x10(3)/[facility] Eos % 2.6 % [facility] Eosinophils Abs 0.2 0.0 - 0.4 x10(3)/[facility] Basophil % 1.0 % [facility] Baso Absolute 0.1 0.0 - 0.1 x10(3)/[facility] Immature Gran % 0.20 % [facility] Comment: Immature granulocytes(IG's)percentage and absolute count will include metamyelocytes, myelocytes, and promyelocytes. Blood smears from CBCs yielding IG's will be scanned manually for concordance. If this scan disagrees with the automated IG or if promyelocytes are noted, a manual differential will be performed. Immature Gran Absolute 0.01 0.00 - 0.04 x10(3)/[facility] Blood specimen (specimen) 07/30/2020 5:43 PM EDT 07/30/2020 6:07 PM EDT Narrative Resulting Agency Comment Spec In Lab Wojciech Frost MD HEMATOLOGY ORDERABLE S [facility] [place] [address] * (ABNORMAL) Hemogram (07/30/2020 5:43 PM EDT) White Blood Cell 6.2 4.0 - 9.5 x10(3)/mc L [facility] Red Blood Cell 4.50(L) 4.58 - 5.54 x10(6)/mc L [facility] Hemoglobin 13.2(L) 13.7 - 16.5 gm/dL [facility] Hematocrit 39.9(L) 40.5 - 48.5 % [facility] Mean Cell Volume 88.7 82.9 - 93.1 fL [facility] Mean Cell Hemoglobin 29.3 27.5 - 32.1 pg [facility] Mean Cell Hemoglobin Concentration 33.1 32.0 - 35.7 gm/dL [facility] Platelet 174 145 - 357 x10(3)/ L [facility] RDW Standard Deviation 47.6(H) 36.0 - 45.0 fL [facility] RDW coefficient of variation 14.7(H) 11.4 - 13.8 % [facility] Mean Platelet Volume 10.9 7.6 - 12.9 fL [facility] NRBC% auto 0.0 % [facility] NRBC Absolute 0.000 0.000 - 0.000 x10(3)/mc L [facility] Blood specimen (specimen) 07/30/2020 5:43 PM EDT 07/30/2020 6:07 PM EDT Narrative Resulting Agency Comment Spec In Lab Wojciech Frost MD HEMATOLOGY ORDERABLE S Performing Organization Address [facility]/[place]UST Co de Phone Number [facility] [place] [address] * (ABNORMAL) Prothrombin Time (07/30/2020 5:43 PM EDT) Prothrombin Time 25.1(H) 9.4 - 12.5 sec [facility] International Normalization Ratio 2.2 [facility] Comment: An INR <2.0 indicates [...] Organization Address City/[facility]/ZIP Co de Phone Number [facility] [place] [address] * (ABNORMAL) BMP w/fasting Glucose (07/30/2020 5:43 PM EDT) Glucose Fasting 110(H) 65 - 99 mg/dL [facility] Comment: ?Fasting* Glucose Interpretive Criteria [...] of Diabetes Mellitus, Position Statement from the [place] [employer]. ??Diabetes Care, Volume 33, Supplement 1, Oct 2009 Blood Urea Nitrogen 14 10 - 20 mg/dL [facility] Creatinine 0.91 0.80 - 1.50 mg/dL [facility] Sodium 140 135 - 145 mmol/L [facility] Potassium 3.9 3.5 - 5.0 mmol/L [facility] Comment: Please note: ??Patients with WBC >100,000 may have falsely elevated Potassium levels. ??For accurate Potassium quantification in these patients send serum separator tube (gold top) for subsequent determinations. ??Contact the Clinical Chemistry Laboratory if there are any questions. Chloride 105 98 - 107 mmol/L [facility] Carbon Dioxide 25 22 - 31 mmol/L [facility] Anion Gap 10 5 - 15 mmol/L [facility] Calcium 9.0 8.5 - 10.5 mg/dL [facility] Est Glomerular Filtration Rate 84 >=60 mL/min/1. 73 m?? [facility] Comment: The eGFR was calculated using the CKD-EPI equation. As with all creatinine based estimates of kidney function, eGFR values calculated with the CKD-EPI equation are not accurate in patients with acute kidney failure, extremes of body mass or the acutely ill. http://Discoverables/DHMCnkf eGFR 98 >=60 mL/min/1. 73 m?? [facility] Comment: The eGFR was calculated using the CKD-EPI equation. As with all creatinine based estimates of kidney function, eGFR values calculated with the CKD-EPI equation are not accurate in patients with acute kidney failure, extremes of body mass or the acutely ill. http://Discoverables/DHMCnkf Blood specimen (specimen) 07/30/2020 5:43 PM EDT 07/30/2020 6:07 PM EDT Narrative Resulting Agency Comment Spec In Lab Wojciech Frost MD CHEMISTRY ORDERABLES [facility] [place] [address] documented in this encounter Visit Diagnoses Not [...] to induce or maintain moderate sedation per [facility] Moderate Sedation Policy for the duration of the EP procedure., As needed to induce or maintain moderate sedation per [facility] Moderate Sedation Policy for the duration of [...] to induce or maintain moderate sedation per [facility] Moderate Sedation Policy for the duration of the EP procedure., As needed to induce or maintain moderate sedation per [facility] Moderate Sedation Policy for the duration of [...] 5% 100 mL infusion 2 g, Intravenous, ART GILDER TO O.R., 1 dose, On Mon07/31/20 at 0600, Administer over 30 Minutes, call specialist to EP lab Redose every 3 hours [...] - Reason: Transfer to a Procedural area)1114 ([facility] Unhold - Provider: Admin Adt) sodium chloride 0.9 % (flush) flush 5 mL 5 mL, Intravenous, 2 TIMES DAILY, First dose on Idalmis 07/30/20 at 2100, Until Discontinued, Routine 2100 (Given - Provider: Silke Aguilera RN) 0900 (Due)0958 (DEC Hold - Provider: Admin Adt - Reason: Transfer to a Procedural area)1114 ([facility] Unhold - Provider: Admin Adt) sodium chloride 0.9 % (flush) flush 5 mL 5 mL, Intravenous, EVERY 12 HOURS, First dose on Idalmis 07/30/20 at 1745, Until Discontinued, Day of Surgery (Day of Procedure), Routine 1745 (Not Given - Provider: Carolina Stock RN - Reason: Entered in Error) 0900 (Due - Provider: Matti Garduno [facility]) sodium chloride 0.9 % (flush) flush 5 [...] - Reason: Transfer to a Procedural area)1114 ([facility] Unhold - Provider: Admin Adt) fentaNYL (PF) 50 mcg/mL injection (CANCELED) 25-50 mcg, Intravenous, EVERY 5 MIN PRN, Starting on Mon07/31/20 at 0948, Until Mon07/31/20 at 1059, Pain, As needed to induce or maintain moderate sedation per [facility] Moderate Sedation Policy for the duration of the EP procedure., As needed to induce or maintain moderate sedation per [facility] Moderate Sedation Policy for the duration of [...] 0.1 IU/mL: Bolus 5,450 units, Routine 0958 ([facility] Hold - Pro vider: Admin Adt - Reason: Transfer to a Procedural area)1114 ([facility] Unhold - Provider: Admin Adt) lidocaine (XYLOCAINE) 10 mg/mL (1 %) injection 3 mg 3 mg (0.3 mL), Subcutaneous, ONCE PRN, 1 dose, Starting on Idalmis 07/30/20 at 1655, Until Mon07/31/20 at 1515, for discomfort with PIV insertion, Routine 09 ([facility] Hold - Pro vider: Admin Adt - Reason: Transfer to a Procedural area)1114 ([facility] Unhold - Provider: Admin Adt) lidocaine (XYLOCAINE) 10 mg/mL (1 %) injection 3 mg 3 mg (0.3 mL), Subcutaneous, ONCE PRN, 1 dose, Starting on Idalmis 07/30/20 at 1655, Until Mon07/31/20 at 1515, for discomfort with PIV insertion, Routine 09 ([facility] Hold - Pro vider: Admin Adt - Reason: Transfer to a Procedural area)1114 ([facility] Unhold - Provider: Admin Adt) lidocaine (XYLOCAINE) [...] to induce or maintain moderate sedation per [facility] Moderate Sedation Policy for the duration of the EP procedure., As needed to induce or maintain moderate sedation per [facility] Moderate Sedation Policy for the duration of [...] - Reason: Transfer to a Procedural area)1114 ([facility] Unhold - Provider: Admin Adt) sodium chloride [...] - Reason: Transfer to a Procedural area)1114 ([facility] Unhold - Provider: Admin Adt) sodium chloride [...] Routine documented in this encounter Care Teams Paid Search Manager Relationship Specialty Start Date End Date Linda Mccray MD [address] [place] [address] PCP - General Family Medicine 10/20/16 documented as of this encounter
--- OUTSIDE RECORDS SUMMARY | 2024-08-30 13:34 | XMS_ITS | Encounter Summary ---
Author Organization [facility] Address [facility] [place] [address] Care Team Providers Care Phone Representative Name Role Phone Linda Mccray MD Primary Care Provider Encounter Details Date Type Department Care Team (Late st Contact Info) Description 06/24/2020 Orders Only Cardiology at [address] [address] Wojciech Frost MD [facility] [address] [place] [id number] Pacemaker battery depletion Social History Tobacco Use [...] pacemaker documented in this encounter Care Teams Phone Representative Relationship Specialty Start Date End Date Linda Mccray MD [address] [place] [address] PCP - General Family Medicine 10/20/16 documented as of this encounter
--- OUTSIDE RECORDS SUMMARY | 2024-08-30 13:34 | XMS_ITS | Encounter Summary ---
Author Organization [facility] Address [facility] [place] [address] Care Team Providers Care Ship Fastener Name Role Phone Linda Mccray MD Primary Care Provider [phone] Encounter Details Date Type Department Care Team (Latest Contact Info) Description 02/22/2021 2:25 PM EDT - 02/22/2021 11:59 PM EDT Hospital Encounter Non[place] [address] Jordana Tarango MD [facility] [place] [address] CHB (complete heart block) Discharge Disposition: Home [...] pdf document Date of transmission: 02/22/2021 Device funnel coater: SAMY Device type: DC PM Presenting rhythm: ASVP AP 17% COMPUTER SUPPORT SPECIALIST 100% - Normal LVEF 2019 Battery: 3.12V, 10.5 years Episodes: no tachy no AF Stable lead trends. Activity [place] Jordana Tarango MD 02/24/2021 7:55 AM Jordana Tarango MD IMPLANTABLE CARDIAC DEVICE documented in this encounter Visit Diagnoses Diagnosis CHB (complete heart block) Atrioventricular block, complete documented in this encounter Care Teams Ship Fastener Relationship Specialty Start Date End Date Linda Mccray MD [address] [place] [address] PCP - General Family Medicine 10/20/16 documented as of this encounter
--- OUTSIDE RECORDS SUMMARY | 2024-08-30 13:34 | XMS_ITS | Encounter Summary ---
Author Organization [facility] Address [facility] [place] [address] Care Team Providers Care Lamp Shade Sewer Name Role Phone Linda Mccray MD Primary Care Provider [phone] Encounter Details Date Type Department Care Team (Late st Contact Info) Description 07/28/2020 [place] [phone] Ladarius Cummings MD [facility] [place] [address] Social History Tobacco Use Types Packs/Day Years [...] remote transmission and then present to the [facility] ED. Ladarius Cummings MD 7:24 AM 07/28/2020 documented in this encounter Plan of Treatment Not on file documented as of this encounter Visit Diagnoses Not on filedocumented in this encounter Care Teams Lamp Shade Sewer Relationship Specialty Start Date End Date Linda Mccray MD [address] [place] [address] PCP - General Family Medicine 10/20/16 documented as of this encounter
--- OUTSIDE RECORDS SUMMARY | 2024-08-30 13:34 | XMS_ITS | Encounter Summary ---
Author Organization [facility] [place] [address] Care Team Providers Care Waterproofing Machine Operator Name Role Phone Linda Mccray MD Primary Care Provider [phone] Encounter Details Date Type Department Care Team (Late st Contact Info) Description 03/05/2021 7:57 PM EDT Anesthesia [place] [phone] Dominic Reese MD [facility] [place] [address] Anesthesia Record Procedure Summary Procedure Name Responsible [...] depletion Added automatically from request for surgery [id number] ??? Chronic bullous emphysema ??? Clostridium difficile [...] 4.67) performed by Lena Clark MD at [facility] Social History Tobacco Use ??? [...] w recurrent PTX who was transferred to [facility] for definitive mgt of recurrent L [...] on filedocumented in this encounter Care Teams Waterproofing Machine Operator Relationship Specialty Start Date End Date Linda Mccray MD [address] [place] [address] PCP - General Family Medicine 10/20/16 documented as of this encounter
--- OUTSIDE RECORDS SUMMARY | 2024-08-30 13:34 | XMS_ITS | Encounter Summary ---
[place] [address] Care Team Providers Care Theoretical Physicist Name Role Phone Linda Mccray MD Primary Care Provider [phone] Reason for Visit * Reason Onset Date Comments Questions 08/06/2020 Encounter Details Date Type Department Care Team ([facility] st Contact Info) Description 08/06/2020 Telephone Cardiology at [address] [phone] Yury Wadsworth RN Questions Social History Tobacco [...] site after his visit with his general business objects consultant yesterday. Pt unavailable, VM left for him [...] way for an appointment with his general business objects consultant Dr. Navin Morin at [facility] within the hour. Pt does not currently have access to [facility] at the moment so he is unable [...] on filedocumented in this encounter Care Teams Theoretical Physicist Relationship Specialty Start Date End Date Linda Mccray MD [address] [place] [address] PCP - General Family Medicine 10/20/16 documented as of this encounter
--- OUTSIDE RECORDS SUMMARY | 2024-08-30 13:34 | XMS_ITS | Encounter Summary ---
Author Organization [facility] Address [facility] [place] [address] Care Team Providers Care Booster Plant Operator Name Role Phone Linda Mccray MD Primary Care Provider [phone] Reason for Visit * Reason Onset Date Comments Dizziness 07/28/2020 Encounter Details Date Type Department Care Team ([facility] st Contact Info) Description 07/28/2020 Telephone Cardiology at [address] [phone] Rita Becker RN Dizziness Social History Tobacco [...] Pt calling in relation to discussion w/ content writer Dr. Cummings early this AM. Pt at [facility] due for generator change & is calling w/ questions concerning restrictions/driving s/p generator change. He was planned to move to [place] this week, however he is postponing due [...] (EP attending) Recommended he go to ED ([facility] or if he felt comfortable, have someone drive him to [facility]). He opted to be scheduled for gen change next week (08/04) however if he begins feeling worse he will present to nearest ED. Pt on warfarin & dosing/INR checks are by PCP Linda Mccray. Called their office to notify about INR goal (2.5-3) & inform of procedure. Unable to reach - LVM with childcare center director & am awaiting return call Plan: 1) Scheduled for PCM generator change on 08/04 2) Pt will present to ED if new/worsening symptoms documented in this encounter Plan of Treatment Not on file documented as of this encounter Visit Diagnoses Not on filedocumented in this encounter Care Teams Booster Plant Operator Relationship Specialty Start Date End Date Linda Mccray MD [address] [place] [address] PCP - General Family Medicine 10/20/16 documented as of this encounter
--- OUTSIDE RECORDS SUMMARY | 2024-08-30 13:34 | XMS_ITS | Encounter Summary ---
Author Organization [facility] [place] [address] Care Team Providers Care Vp Global Marketing [employer] Name Role Phone Linda Mccray MD Primary Care Provider [phone] Encounter Details Date Type Department Care Team ([facility] st Contact Info) Description 07/29/2020 External Results [place] [address] Malou Olivares APRN [facility] [address] [place] [id number] Social History Tobacco Use Types Packs/Day Years [...] on filedocumented in this encounter Care Teams Vp Global Marketing [employer] Relationship Specialty Start Date End Date Linda Mccray MD [address] [place] [address] PCP - General Family Medicine 10/20/16 documented as of this encounter
--- OUTSIDE RECORDS SUMMARY | 2024-08-30 13:34 | XMS_ITS | Encounter Summary ---
[place] [address] Care Team Providers Care Sqe Name Role Phone Linda Mccray MD Primary Care Provider [phone] Reason for Visit * Reason Onset Date Comments Letter Request From Patient 12/05/2016 Encounter Details Date Type Department Care Team ([facility] st Contact Info) Description 12/05/2016 Telephone [place]acic [place] [phone] Mandi Arteaga Letter Request From Patient Social [...] on filedocumented in this encounter Care Teams Sqe Relationship Specialty Start Date End Date Linda Mccray MD [address] [place] [address] PCP - General Family Medicine 10/20/16 documented as of this encounter
--- OUTSIDE RECORDS SUMMARY | 2024-08-30 13:34 | XMS_ITS | Encounter Summary ---
[place] [address] Care Team Providers Care Model Technician Name Role Phone Linda Mccray MD Primary Care Provider [phone] Encounter Details Date Type Department Care Team ([facility] st Contact Info) Description 08/10/2020 10:00 AM EDT Office Visit Cardiology at [address] [phone] Katerina Reina RN Pacemaker battery depletion; Pacemaker [...] generator change done due to battery at [facility] by Dr Tarango 07/31/20. He is on route to [facility] in the next few days and [...] -per patient Ventricular electrode: Medtronic 5076-52cm Serial# [id number] Atrial electrode: Medtronic 5076-52cm Serial# [id number] Pulse generator: [employer] Rocket [id number] [place] XT [address] [place] Serial# [id number] NEW Settings: DDDR 60/120/120 PAV 180 ms EULA 150 ms Underlying rhythm: SR 72 with high grade AV block V-escape 36 bpm Presenting: /FILTERS ASSEMBLER Atrial Lead: P wave: 4.3 mV Impedance: 513 ohms Threshold: 0.75 V @ 0.4 ms Ventricular Lead: R wave: 15.1 mV Impedance: 627 ohms Threshold: 1.25 V @ 0.4 ms Heart rate histograms: well distributed Pacing percentages: AP 5.3 %; FILTERS ASSEMBLER 99.9% Mode switch episodes: none VHR: 1 NSVT episode at 179 bpm for 9 beats Battery voltage: 3.21 V (DIRECTOR MEDICARE SALES:2.63 V) est 11.1 years remaining Wound assessment: Hematoma noted -patient states its getting smaller mepilex dressing removed steristrips remain intact and no drainage seen encouraged to call if the site gets larger,there is drainage or if he develops fever chills Reprogramming: iterative changes to assess device function Plan: Remote in 3 mos. RTC in 1 year-will establish with a provider when he reaches [place] Provider: Katerina Reina RN Attending: Dr Olivera documented in this encounter Plan of Treatment Not on file documented as of this encounter Visit Diagnoses Diagnosis Pacemaker battery depletion Fitting and adjustment of cardiac pacemaker Pacemaker - dual lead Medtronic Cardiac pacemaker in situ documented in this encounter Care Teams Model Technician Relationship Specialty Start Date End Date Linda Mccray MD [address] [place] [address] PCP - General Family Medicine 10/20/16 documented as of this encounter
--- OUTSIDE RECORDS SUMMARY | 2024-08-30 13:34 | XMS_ITS | Encounter Summary ---
Author Organization [facility] [place] [address] Care Team Providers Care Home Health Aide Name Role Phone Linda Mccray MD Primary Care Provider [phone] Encounter Details Date Type Department Care Team ([facility] st Contact Info) Description 10/24/2017 2:45 PM EST Office Visit Pulmonology at [facility] [place] [address] Martín Davis [place] [address] [place] (dyspnea on exertion) Social History Tobacco [...] Name: [place] Neri : 1950 Medical Record: [id number] Date of Service: 10/25/2017 Hospital Day #: [...] 456 meters. He has his echo at [facility] which an improved EF which is now [...] abnormality documented in this encounter Care Teams Home Health Aide Relationship Specialty Start Date End Date Linda Mccray MD [address] [place] [address] PCP - General Family Medicine 10/20/16 documented as of this encounter
--- OUTSIDE RECORDS SUMMARY | 2024-08-30 13:34 | XMS_ITS | Encounter Summary ---
Author Organization [facility] Address [facility] [place] [address] Care Team Providers Care Head Swamper Name Role Phone Linda Mccray MD Primary Care Provider [phone] Reason for Visit * Reason Onset Date Comments Other 07/15/2020 Pacemaker Batter y Questions Encounter Details Date Type Department Care Team ([facility] Contact Info) Description 07/15/2020 Telephone Cardiology at [address] [phone] Toma Alfaro Other (Pacemaker Battery Questions) Social [...] - 07/15/2020 3:58 PM EDT Device Clinic Air Conditioning Mechanic - Telephone Note Date: 07/15/2020 Time: 4:00 PM Caller: Patient Call back #: [phone] Reason for call: Patient called regarding the battery of his pacemaker as when he saw Dr. Frost at [facility] on 06/25/20 he had about a month [...] filedocumented in this encounter Care Teams Head Swamper Relationship Specialty Start Date End Date Linda Mccray MD [address] [place] [address] PCP - General Family Medicine 10/20/16 documented as of this encounter
--- OUTSIDE RECORDS SUMMARY | 2024-08-30 13:34 | XMS_ITS | Encounter Summary ---
Author Organization Formerly [facility], [facility] Address [facility] [place] [address] Care Team Providers Care City Constable Name Role Phone Linda Mccray MD Primary Care Provider [phone] Reason for Visit * Auth/Cert Specialty Diagnoses / Procedures Referred By Lucas t Referred To Contact Diagnoses Pacemaker complications, initial encounter Dizziness Referral ID Status Reason Start Date Expiration Date Visits Re quested Visits Authorized [id number] 1 1 Encounter Details Date Type Department Care Team (Latest Contact Info) Description 07/30/2020 2:34 PM EDT - 07/31/2020 1:15 PM EDT Hospital Encounter Intermediate [place] [phone] Matti Martell MD [facility] [place] [address] Papi Sorenson MD [facility] [place] [address] Jordana Tarango MD [facility] [place] [address] Pacemaker complications, initial encounter Discharge Disposition: Home [...] depletion Added automatically from request for surgery [id number] ??? Chronic bullous emphysema ??? Clostridium difficile [...] requiring chest tube placement, who presented to [facility] via [facility] following symptomatic bradycardia that occurred in setting [...] into Monday morning before he presented to [facility] with near-syncope. Since being admitted to [facility], he has not had any recurrence of symptoms but also admits he h as not tried to exert himself. ?? At [facility], patient had supratherapeutic INR 3.6 on admission 07/29/2020 and Coumdin was held. He was recommended transfer to [facility] for treatment of near-syncope and pacemaker complication. His INR on dayof transfer was 2.8. A Medtronic device interrogation on 07/29/2020 showed normal functioning pacemaker reverted to VVI backup pacing in setting of SAMEERA and predominant V-paced burden (95.5%) since then. He had a negative COVID-19 test on 07/29/2020. 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 Important Studies and Lab Data: Labs: [facility] Results Component Value Date INR 2.1 [...] incision. Make sure to use a cloth folder hand (such as a towel) in between the [...] F. The office scheduling phone number is [phone]. ARM MOVEMENT RESTRICTIONS POST-IMPLANT - Do not raise your elbow on the operated side above the shoulder for 1 WEEK ONLY to allow incisionto heal. If you have any questions or concerns about this product, please call the office at [phone]. General Instructions None Discharge References/Attachments: Discharge References/Attachments None Inpatient Provider Contact Information: EP PAGER - [phone] Electronically Signed By: Tan Pantoja MD 07/31/2020 [...] incision. Make sure to use a cloth folder hand (such as a towel) in between the [...] F. The office scheduling phone number is [phone]. ARM MOVEMENT RESTRICTIONS POST-IMPLANT - Do not raise your elbow on the operated side above the shoulder for 1 WEEK ONLY to allow incisionto heal. If you have any questions or concerns about this product, please call the office at [phone]. documented in this encounter Medications at Time [...] Note: Added automatically from request for surgery [id number] ??? Chronic bullous emphysema ??? Clostridium difficile [...] requiring chest tube placement, who presented to [facility] via [facility] following symptomatic bradycardia that occurred in setting [...] into Monday morning before he presented to [facility] with near-syncope. Since being admitted to [facility], he has not had any recurrence of symptoms but also admits he h as not tried to exert himself. At [facility], patient had supratherapeutic INR 3.6 on admission 07/29/2020 and Coumdin was held. He was recommended transfer to [facility] for treatment of near-syncope and pacemaker complication. His INR on dayof transfer was 2.8. A Medtronic device interrogation on 07/29/2020 showed normal functioning pacemaker reverted to VVI backup pacing in setting of SAMEERA and predominant V-paced burden (95.5%) since then. He had a negative COVID-19 test on 07/29/2020. A 12-lead EKG at [facility] on 07/29/2020 showed v-paced rhythm 65 bpm [...] Patient is and lives with his in [place], [place]. 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 He has no children. He works as [...] Pneumothorax on left Pertinent Medications: No current [facility]-ordered facility-administered medications on file. No current [facility]-ordered outpatient medications on file. Current Discharge Medication [...] file Gets together: Not on file Attends evangelical service: Not on file Active member of [...] 2027 Attending: Jordana Tarango MD Service Pager: [phone] Staff addendum: I have seen and evaluated the patient, and reviewed the available medical records. I agree with the findings, physical examination, and assessment of Lc Genna as detailed above. We will start heparin [...] Outcome: Ongoing (Interventions Implemented as Appropriate) 07/30/20 19407/31/20 0350 Plan of Care Review Progress -- [...] PM EDT Procedure - Pulse Generator Replacement Radiological Defense Officer: ??Jordana Tarango M.D., M.H.S. Gearcase Assembler(s): Delfino Pantoja MD (fellow) Indication: [place] Neri [...] condition. 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 ??Jordana Jeffries MD, was present throughout the period of sedation as documented by the sedation RN. Jordana Tarango MD EP PROCEDURE ORDERAB LES * Heparin (unfractionated) Level (07/31/2020 3:34 AM EDT) Pathologist [facility] UF Heparin 0.43 IU/mL [facility] Comment: Specimen drawn more than [...] Lab Jordana Tarango MD HEMATOLOGY ORDERABLE S [facility] [place] [address] * Differential, Automated (07/31/2020 3:34 AM EDT) Pathologist [facility] Neutrophil % 57.9 % [facility] Neutrophil Absolute 2.89 1.70 - 6.10 x10(3)/[facility] Lymph % 25.1 % [facility] Lymphocytes Abs 1.2 0.9 - 3.2 x10(3)/[facility] Monocyte % 10.8 % [facility] Monocyte Abs 0.5 0.3 - 0.9 x10(3)/[facility] Eos % 5.0 % [facility] Eosinophils Abs 0.2 0.0 - 0.4 x10(3)/[facility] Basophil % 1.0 % [facility] Baso Absolute 0.0 0.0 - 0.1 x10(3)/[facility] Immature Gran % 0.20 % [facility] Comment: Immature granulocytes(IG's)percentage and absolute count will include metamyelocytes, myelocytes, and promyelocytes. Blood smears from CBCs yielding IG's will be scanned manually for concordance. If this scan disagrees with the automated IG or if promyelocytes are noted, a manual differential will be performed. Immature Gran Absolute 0.01 0.00 - 0.04 x10(3)/[facility] Blood specimen (specimen) 07/31/2020 3:34 AM EDT 07/31/2020 3:41 AM EDT Narrative Resulting Agency Comment Spec In Lab Lc DELAROSA HEMATOLOGY ORDERABLE S [facility] [place] [address] * (ABNORMAL) Hemogram (07/31/2020 3:34 AM EDT) White Blood Cell 5.0 4.0 - 9.5 x10(3)/mc L [facility] Red Blood Cell 4.35(L) 4.58 - 5.54 x10(6)/mc L [facility] Hemoglobin 12.7(L) 13.7 - 16.5 gm/dL [facility] Hematocrit 38.2(L) 40.5 - 48.5 % [facility] Mean Cell Volume 87.8 82.9 - 93.1 fL [facility] Mean Cell Hemoglobin 29.2 27.5 - 32.1 pg [facility] Mean Cell Hemoglobin Concentration 33.2 32.0 - 35.7 gm/dL [facility] Platelet 161 145 - 357 x10(3)/mc L [facility] RDW Standard Deviation 47.2(H) 36.0 - 45.0 fL [facility] RDW coefficient of variation 14.8(H) 11.4 - 13.8 % [facility] Mean Platelet Volume 10.2 7.6 - 12.9 fL [facility] NRBC% auto 0.0 % [facility] NRBC Absolute 0.000 0.000 - 0.000 x10(3)/mc L [facility] Blood specimen (specimen) 07/31/2020 3:34 AM EDT 07/31/2020 3:41 AM EDT Narrative Resulting Agency Comment Spec In Lab Lc DELAROSA HEMATOLOGY ORDERABLE S [facility] [place] [address] * (ABNORMAL) Prothrombin Time (07/31/2020 3:34 AM EDT) Prothrombin Time 24.0(H) 9.4 - 12.5 sec [facility] International Normalization Ratio 2.1 [facility] Comment: An INR <2.0 [...] MD HEMATOLOGY ORDERABLE S Performing Organization Address [facility]/ZIP Co de Phone Number [facility] [place] [address] * Heparin (unfractionated) Level (07/30/2020 5:43 PM EDT) Pathologist [facility] UF Heparin <0.04 IU/mL [facility] Comment: Specimen drawn more than [...] DELAROSA HEMATOLOGY ORDERABLE S Performing Organization Address [facility] Co de Phone Number [facility] [place] [address] * Differential, Automated (07/30/2020 5:43 PM EDT) Pathologist [facility] Neutrophil % 66.0 % [facility] Neutrophil Absolute 4.08 1.70 - 6.10 x10(3)/mcL [facility] Lymph % 22.7 % [facility] Lymphocytes Abs 1.4 0.9 - 3.2 x10(3)/[facility] Monocyte % 7.5 % [facility] Monocyte Abs 0.5 0.3 - 0.9 x10(3)/[facility] Eos % 2.6 % [facility] Eosinophils Abs 0.2 0.0 - 0.4 x10(3)/[facility] Basophil % 1.0 % [facility] Baso Absolute 0.1 0.0 - 0.1 x10(3)/[facility] Immature Gran % 0.20 % [facility] Comment: Immature granulocytes(IG's)percentage and absolute count will include metamyelocytes, myelocytes, and promyelocytes. Blood smears from CBCs yielding IG's will be scanned manually for concordance. If this scan disagrees with the automated IG or if promyelocytes are noted, a manual differential will be performed. Immature Gran Absolute 0.01 0.00 - 0.04 x10(3)/[facility] Blood specimen (specimen) 07/30/2020 5:43 PM EDT 07/30/2020 6:07 PM EDT Narrative Resulting Agency Comment Spec In Lab Wojciech Frost MD HEMATOLOGY ORDERABLE S [facility] [place] [address] * (ABNORMAL) Hemogram (07/30/2020 5:43 PM EDT) White Blood Cell 6.2 4.0 - 9.5 x10(3)/ L [facility] Red Blood Cell 4.50(L) 4.58 - 5.54 x10(6)/ L [facility] Hemoglobin 13.2(L) 13.7 - 16.5 gm/dL [facility] Hematocrit 39.9(L) 40.5 - 48.5 % [facility] Mean Cell Volume 88.7 82.9 - 93.1 fL [facility] Mean Cell Hemoglobin 29.3 27.5 - 32.1 pg [facility] Mean Cell Hemoglobin Concentration 33.1 32.0 - 35.7 gm/dL [facility] Platelet 174 145 - 357 x10(3)/mc L [facility] RDW Standard Deviation 47.6(H) 36.0 - 45.0 fL [facility] RDW coefficient of variation 14.7(H) 11.4 - 13.8 % [facility] Mean Platelet Volume 10.9 7.6 - 12.9 fL [facility] NRBC% auto 0.0 % [facility] NRBC Absolute 0.000 0.000 - 0.000 x10(3)/mc L [facility] Blood specimen (specimen) 07/30/2020 5:43 PM EDT 07/30/2020 6:07 PM EDT Narrative Resulting Agency Comment Spec In Lab Wojciech Frost MD HEMATOLOGY ORDERABLE S [facility] [place] [address] * (ABNORMAL) Prothrombin Time (07/30/2020 5:43 PM EDT) Prothrombin Time 25.1(H) 9.4 - 12.5 sec [facility] International Normalization Ratio 2.2 [facility] Comment: An INR <2.0 [...] Lab Wojciech Frost MD HEMATOLOGY ORDERABLE S [facility] [place] [address] * (ABNORMAL) BMP w/fasting Glucose (07/30/2020 5:43 PM EDT) Glucose Fasting 110(H) 65 - 99 mg/dL [facility] Comment: ?Fasting* Glucose Interpretive [...] of Diabetes Mellitus, Position Statement from the [place] [employer]. ??Diabetes Care, Volume 33, Supplement 1, Oct 2009 Blood Urea Nitrogen 14 10 - 20 mg/dL [facility] Creatinine 0.91 0.80 - 1.50 mg/dL [facility] Sodium 140 135 - 145 mmol/L [facility] Potassium 3.9 3.5 - 5.0 mmol/L [facility] Comment: Please note: ??Patients with WBC >100,000 may have falsely elevated Potassium levels. ??For accurate Potassium quantification in these patients send serum separator tube (gold top) for subsequent determinations. ??Contact the Clinical Chemistry Laboratory if there are any questions. Chloride 105 98 - 107 mmol/L [facility] Carbon Dioxide 25 22 - 31 mmol/L [facility] Anion Gap 10 5 - 15 mmol/L [facility] Calcium 9.0 8.5 - 10.5 mg/dL [facility] Est Glomerular Filtration Rate 84 >=60 mL/min/1. 73 m?? [facility] Comment: The eGFR was calculated using the CKD-EPI equation. As with all creatinine based estimates of kidney function, eGFR values calculated with the CKD-EPI equation are not accurate in patients with acute kidney failure, extremes of body mass or the acutely ill. [email or web address] eGFR 98 >=60 mL/min/1. 73 m?? [facility] Comment: The eGFR was calculated using the CKD-EPI equation. As with all creatinine based estimates of kidney function, eGFR values calculated with the CKD-EPI equation are not accurate in patients with acute kidney failure, extremes of body mass or the acutely ill. [email or web address] Blood specimen (specimen) 07/30/2020 5:43 PM EDT 07/30/2020 6:07 PM EDT Narrative Resulting Agency Comment Spec In Lab Wojciech Frost MD CHEMISTRY ORDERABLES Performing Organization Address City/State/[facility] Co de Phone Number [facility] [place] [address] documented in this encounter Visit Diagnoses Diagnosis [...] to induce or maintain moderate sedation per [facility] Moderate Sedation Policy for the duration of the EP procedure., As needed to induce or maintain moderate sedation per [facility] Moderate Sedation Policy for the duration of [...] to induce or maintain moderate sedation per [facility] Moderate Sedation Policy for the duration of the EP procedure., As needed to induce or maintain moderate sedation per [facility] Moderate Sedation Policy for the duration of [...] 5% 100 mL infusion 2 g, Intravenous, FASHION ADVISER TO O.R., 1 dose, On Mon07/31/20 at 0600, Administer over 30 Minutes, outbound call center representative to EP lab Redose every 3 hours [...] Discontinued, Routine 2100 (Given - Provider: Silke Aguilera, DAVIN) 0900 (Due)0958 (DEC Hold - Provider: Admin Adt - Reason: Transfer to a Procedural area)1114 ([facility] Unhold - Provider: Admin Adt) sodium chloride 0.9 % (flush) flush 5 mL 5 mL, Intravenous, EVERY 12 HOURS, First dose on Idalmis 07/30/20 at 1745, Until Discontinued, Day of Surgery (Day of Procedure), Routine 1745 (Not Given - Provider: Carolina Stock RN - Reason: Entered in Error) 0900 (Due - Provider: Matti Garduno [facility]) sodium chloride 0.9 % (flush) flush 5 [...] - Reason: Transfer to a Procedural area)1114 ([facility] Unhold - Provider: Admin Adt) warfarin (Coumadin) [...] to induce or maintain moderate sedation per [facility] Moderate Sedation Policy for the duration of the EP procedure., As needed to induce or maintain moderate sedation per [facility] Moderate Sedation Policy for the duration of [...] - Reason: Transfer to a Procedural area)1114 ([facility] Unhold - Provider: Admin Adt) lidocaine (XYLOCAINE) 10 mg/mL (1 %) injection 3 mg 3 mg (0.3 mL), Subcutaneous, ONCE PRN, 1 dose, Starting on Idalmis 07/30/20 at 1655, Until Mon07/31/20 at 1515, for discomfort with PIV insertion, Routine 0958 (DEC Hold - Pro vider: Admin Adt - Reason: Transfer to a Procedural area)1114 ([facility] Unhold - Provider: Admin Adt) lidocaine (XYLOCAINE) 10 mg/mL (1 %) injection 3 mg 3 mg (0.3 mL), Subcutaneous, ONCE PRN, 1 dose, Starting on Idalmis 07/30/20 at 1655, Until Mon07/31/20 at 1515, for discomfort with PIV insertion, Routine 0958 (DEC Hold - Pro vider: Admin Adt - Reason: Transfer to a Procedural area)1114 ([facility] Unhold - Provider: Admin Adt) [...] to induce or maintain moderate sedation per [facility] Moderate Sedation Policy for the duration of the EP procedure., As needed to induce or maintain moderate sedation per [facility] Moderate Sedation Policy for the duration of [...] provided on this medication record., Routine 09 ([facility] Hold - Pro vider: Admin Adt - Reason: Transfer to a Procedural area)1114 ([facility] Unhold - Provider: Admin Adt) sodium chloride 0.9 % (flush) flush 5-20 mL 5-20 mL, Intravenous, EVERY 1 MIN PRN, Starting on Idalmis 07/30/20 at 1655, Until Mon07/31/20 at 1515, flush, Flush pertains to all indwelling lines. Flush per protocol found in the job aid using the link provided on this medication record., Routine 09 ([facility] Hold - Pro vider: Admin Adt - Reason: Transfer to a Procedural area)1114 ([facility] Unhold - Provider: Admin Adt) [...] Starting on Idalmis 07/30/20 at 2030, Until 07/31/20 at 1515, Begin infusion at 1,150 units [...] Routine documented in this encounter Care Teams City Constable Relationship Specialty Start Date End Date Linda Mccray MD [address] [place] [address] PCP - General Family Medicine 10/20/16 documented as of this encounter
--- OUTSIDE RECORDS SUMMARY | 2024-08-30 13:34 | XMS_ITS | Encounter Summary ---
Author Organization Formerly [facility] [place] [address] Care Team Providers Care School Psychologist Assistant Name Role Phone Linda Mccray MD Primary Care Provider [phone] Reason for Visit * Reason Onset Date Comments Patient Education 07/31/2020 Implanted Card iac Device Teaching Encounter Details Date Type Department Care Team ([facility] st Contact Info) Description 07/31/2020 Notes Only Cardiology at [address] [phone] Jodie Shipley Patient Education (Implanted Cardiac Device [...] to call the Cardiac Device Clinic at [phone] with any questions. Plan: Post op check: To be scheduled 91 day check: To be scheduled Remote monitor: [employer] provides remote monitoring support through their [employer] department. A construction sales representative from [employer] will contact patient in 1-3 days to discuss monitor options. [employer] will ship monitor to patient and then follow up to help with connectivity. Jodie Shipley 07/31/20 documented in this encounter Plan of Treatment Not on file documented as of this encounter Visit Diagnoses Not on filedocumented in this encounter Care Teams School Psychologist Assistant Relationship Specialty Start Date End Date Linda Mccray MD [address] [place] [address] PCP - General Family Medicine 10/20/16 documented as of this encounter
--- OUTSIDE RECORDS SUMMARY | 2024-08-30 13:34 | XMS_ITS | Encounter Summary ---
Author Organization Formerly [facility] Address [facility] [place] [address] Care Team Providers Care Middle School Football Coach Name Role Phone Linda Mccray MD Primary Care Provider [phone] Encounter Details Date Type Department Care Team (Late st Contact Info) Description 11/26/2020 Telephone Cardiology at [address] [phone] Katerina Reina RN Social History Tobacco Use [...] to the ED to rule out Possible SD has his chest pressure and shortness of breath is persisting and this a new symptom for him. He voiced an understanding documented in this encounter Plan of Treatment Not on file documented as of this encounter Visit Diagnoses Not on filedocumented in this encounter Care Teams Middle [employer] Football Coach Relationship Specialty Start Date End Date Linda Mccray MD [address] [place] [address] PCP - General Family Medicine 10/20/16 documented as of this encounter
--- OUTSIDE RECORDS SUMMARY | 2024-08-30 13:34 | XMS_ITS | Encounter Summary ---
Author Organization [facility] [place] [address] Care Team Providers Care Graphic Design Assistant Name Role Phone Linda Mccray MD Primary Care Provider [phone] Encounter Details Date Type Department Care Team (Latest Contact Info) Description 01/26/2017 12:06 PM EDT - 01/26/2017 3:00 PM EDT Hospital En[place] [address] Lena Clark MD [facility] [place] [address] Discharge Disposition: Home Social History Tobacco Use [...] to be checked. Monday-Monday Same Day Endo [phone] Otherwise contact [phone] and ask to speak to the manager advanced residential pest control technician Follow up care is a sunshine [...] a dual lead Medtronic pacemaker implanted at [facility], followed by Dr. Faria. Device Data: Medtronic Adapta [id number] 09/26/2008 Atrial [id number] 09/26/2008 Ventricular [id number] 09/26/2008 AAI<=>DDD 60/130 P wave: 2.8mV R wave: 11.2-15.6mV Atrial impedance: 441 ohms Ventricular impedance: 580 ohms Atrial threshold: 0.75V @ 0.4ms Ventricular threshold: 1.25V @ 0.4ms Mode switch: 31; <0.1% -VS 12.5%; -PHYSICIAN ASSISTANT CERTIFIED 86.3%; AP-PHYSICIAN ASSISTANT CERTIFIED 1.2% Impression and Plan: 66yo man s/p upper GI with polypectomy using electrocautery. Device function confirmed normal. Provider: WASHINGTON Salas Provider#: [id number] Consult attending physician: Evangelist Casillas MD documented [...] Report (01/26/2017 1:49 PM EDT) Final Diagnosis [id number] ?Location: 4T; EA10; A The signing pathologist [...] x 0.3 x 0.2 cm. Tissue Description: Campus short polypoid tissue. Sections/Proces sing: Inked and bisected (T1) ??ah 01/30/2017 1:50 PM EDT [facility] GI Biopsy 01/26/2017 1:49 PM EDT 01/26/2017 1:49 PM EDT L Cade Clark MD PATHOLOGY/CYTOLOGY O DON Performing Organization Address City/[facility]/[place] [address] * Specimen to Pathology (surgical or derm) (01/26/2017 1:49 PM EDT) AP Specimen 01/26/2017 1:49 PM EDT 01/26/2017 1:49 PM EDT Narrative [facility] - 01/26/2017 1:49 PM EDT Specimen requisition ordered. ??Separate Pathology report to follow L Cade Clark MD PATHOLOGY/CYTOLOGY O DON Performing Organization Address City/[facility]/[place] [address] * COLONOSCOPY (01/26/2017 12:20 PM EDT) COLONOSCOPY [facility] Endoscopy Procedure Date: 01/26/2017 12:20 PM ? Patient Name: London Neri ? Date of : 1950 ? Age: 66 ? Order #: [id number] ? Instrument Name: [id number] ? Procedure: ? Colonoscopy Indications: ? Screening [...] preparation was evaluated using ? the BBPS ([place] Bowel Preparation ? Scale) with scores of: [...] ? please call our office at ? [phone]. ? - For bright red rectal bleeding, [...] RN) documented in this encounter Care Teams Graphic Design Assistant Relationship Specialty Start Date End Date Linda Mccray MD [address] [place] [address] PCP - General Family Medicine 10/20/16 documented as of this encounter
--- OUTSIDE RECORDS SUMMARY | 2024-08-30 13:34 | XMS_ITS | Encounter Summary ---
Author Organization [facility] [place] [address] Care Team Providers Care Customs Appraiser Name Role Phone Linda Mccray MD Primary Care Provider [phone] Encounter Details Date Type Department Care Team (Late st Contact Info) Description 03/04/2021 Ancillary Procedure Radiology Library at [facility] [place] [address] Navin Khalil MD [facility] [place] [address] Social History Tobacco Use Types Packs/Day Years [...] DX Chest (03/04/2021 12:00 AM EDT) Narrative [facility] - 03/05/2021 8:54 AM EDT This exam is auto-finalizing. It's purpose is for storage only. Navin Khalil MD [facility] LIBRARY ORD ERABLES [place], [place] documented in this encounter Visit Diagnoses Not on filedocumented in this encounter Care Teams Customs Appraiser Relationship Specialty Start Date End Date Linda Mccray MD [address] [place] [address] PCP - General Family Medicine 10/20/16 documented as of this encounter
--- OUTSIDE RECORDS SUMMARY | 2024-08-30 13:34 | XMS_ITS | Encounter Summary ---
Author Organization [facility] Address [facility] [place] [address] Care Team Providers Care Finance Controller Name Role Phone Linda Mccray MD Primary Care Provider [phone] Encounter Details Date Type Department Care Team ([facility] st Contact Info) Description 07/28/2020 Telephone Cardiology at [address] [phone] Katerina Reina RN Social History Tobacco Use [...] on filedocumented in this encounter Care Teams Finance Controller Relationship Specialty Start Date End Date Linda Mccray MD [address] [place] [address] PCP - General Family Medicine 10/20/16 documented as of this encounter
--- OUTSIDE RECORDS SUMMARY | 2024-08-30 13:34 | XMS_ITS | Encounter Summary ---
Author Organization Count Includes [facility] Address [facility] [place] [address] Care Team Providers Care Bridge Mechanic Name Role Phone Linda Mccray MD Primary Care Provider [phone] Encounter Details Date Type Department Care Team ([facility] st Contact Info) Description 08/17/2020 Notes Only Cardiology at [address] [address] Sarahi Bundy PA [facility] [place] [address] Social History Tobacco Use Types Packs/Day Years [...] pdf document Date of transmission: 08/17/20 Device psych tech: SAMY COLUNGA Device type: dual-chamber pacemaker Presenting rhythm: /APPRENTICESHIP CONSULTANT AP 9% APPRENTICESHIP CONSULTANT 99.9% (MVP Off) Battery: 12 years Alerts: [...] on filedocumented in this encounter Care Teams Bridge Mechanic Relationship Specialty Start Date End Date Linda Mccray MD [address] [place] [address] PCP - General Family Medicine 10/20/16 documented as of this encounter
--- OUTSIDE RECORDS SUMMARY | 2024-08-30 13:34 | XMS_ITS | Encounter Summary ---
Author Organization [facility] [place] [address] Care Team Providers Care Deck Specialist Name Role Phone Linda Mccray MD Primary Care Provider [phone] Encounter Details Date Type Department Care Team (Late st Contact Info) Description 03/05/2021 8:55 AM EDT Ancillary Procedure Radiology Library at [facility] [place] [address] Navin Khalil MD [facility] [place] [address] Social History Tobacco Use Types Packs/Day Years [...] DX Chest (03/05/2021 8:54 AM EDT) Narrative [facility] - 03/05/2021 8:54 AM EDT This exam is auto-finalizing. It's purpose is for storage only. Navin Khalil MD [facility] [place]M LIBRARY ORD ERABLES [place], [place] documented in this encounter Visit Diagnoses Not on filedocumented in this encounter Care Teams Deck Specialist Relationship Specialty Start Date End Date Linda Mccray MD [address] [place] [address] PCP - General Family Medicine 10/20/16 documented as of this encounter
--- OUTSIDE RECORDS SUMMARY | 2024-08-30 13:34 | XMS_ITS | Encounter Summary ---
Author Organization [facility] [place] [address] Care Team Providers Care Electrical Products Sales Engineer Name Role Phone Linda Mccray MD Primary Care Provider [phone] Encounter Details Date Type Department Care Team (Late st Contact Info) Description 01/19/2018 Ancillary Procedure Radiology Library at [facility] [place] [phone] Linda Mccray MD [address] [place] [address] Social History Tobacco Use Types Packs/Day Years [...] DX Shoulder (01/19/2018 12:00 AM EDT) Narrative [facility] - 03/29/2023 4:43 AM EDT This exam is auto-finalizing. It's purpose is for storage only. Linda Mccray MD [facility] FILM LIBRARY ORD ERABLES Performing Organization Address City/State/[facility] Co de Phone Number [place], [place] documented in this encounter Visit Diagnoses Not on filedocumented in this encounter Care Teams Electrical Products Sales Engineer Relationship Specialty Start Date End Date Linda Mccray MD [address] [place] [address] PCP - General Family Medicine 10/20/16 documented as of this encounter
--- OUTSIDE RECORDS SUMMARY | 2024-08-30 13:34 | XMS_ITS | Encounter Summary ---
Author Organization [facility] [place] [address] Care Team Providers Care Relish Blender Name Role Phone Linda Mccray MD Primary Care Provider [phone] Encounter Details Date Type Department Care Team (Latest Contact Info) Description 07/14/2017 - 07/14/2017 11:59 PM EDT Hospital Encounter Radiology Library at [facility] [place] [phone] Jl Sagastume MD [facility] [place] [address] Pain Discharge Disposition: Home Social History Tobacco [...] DX Chest (07/14/2017 12:00 AM EDT) Narrative [facility] - 07/19/2017 9:02 AM EDT This exam is for storage only and is auto-finalizing. Jl Sagastume MD IMG FILM LIBRARY OR DERABLES Performing Organization Address City/State/[facility] de Phone Number [place], [place] documented in this encounter Visit Diagnoses Diagnosis Pain Generalized pain documented in this encounter Care Teams Relish Blender Relationship Specialty Start Date End Date Linda Mccray MD [address] [place] [address] PCP - General Family Medicine 10/20/16 documented as of this encounter
--- OUTSIDE RECORDS SUMMARY | 2024-08-30 13:35 | XMS_ITS | Encounter Summary ---
Author Organization [facility] Address [facility] [place] [address] Care Team Providers Care Diver Pumper Name Role Phone Linda Mccray MD Primary Care Provider [phone] Encounter Details Date Type Department Care Team (Latest Contact Info) Description 10/24/2016 - 10/24/2016 11:59 PM EST Hospital Encounter Radiology Library at [facility] [place] [address] Jl Sagastume MD [facility] [place] [address] Pain Discharge Disposition: Home Social History Tobacco [...] DX Chest (10/24/2016 12:00 AM EST) Narrative [facility] - 11/16/2016 3:27 PM EST This exam is for storage only and is auto-finalizing. Jl Sagastume MD IMG FILM LIBRARY OR DERABLES Performing Organization Address City/State/[facility] Co de Phone Number [place], [place] documented in this encounter Visit Diagnoses Diagnosis Pain Generalized pain documented in this encounter Care Teams Diver Pumper Relationship Specialty Start Date End Date Linda Mccray MD [address] [place] [address] PCP - General Family Medicine 10/20/16 documented as of this encounter
--- OUTSIDE RECORDS SUMMARY | 2024-08-30 13:35 | XMS_ITS | Encounter Summary ---
Author Organization [facility] Address [facility] [place] [address] Care Team Providers Care Inpatient Auditor Name Role Phone Linda Mccray MD Primary Care Provider [phone] Encounter Details Date Type Department Care Team (Latest Contact Info) Description 10/21/2016 - 10/21/2016 11:59 PM EST Hospital Encounter Radiology Library at [facility] [place] [phone] Jl Sagastume MD [facility] [place] [address] Pain Discharge Disposition: Home Social History Tobacco [...] DX Chest (10/21/2016 12:00 AM EST) Narrative [facility] - 11/16/2016 3:30 PM EST This exam is for storage only and is auto-finalizing. Jl Sagastume MD IMG FILM LIBRARY OR DERABLES Performing Organization Address City/State/[facility] Co de Phone Number [place], [place] documented in this encounter Visit Diagnoses Diagnosis Pain Generalized pain documented in this encounter Care Teams Inpatient Auditor Relationship Specialty Start Date End Date Linda Mccray MD [address] [place] [address] PCP - General Family Medicine 10/20/16 documented as of this encounter
--- OUTSIDE RECORDS SUMMARY | 2024-08-30 13:35 | XMS_ITS | Encounter Summary ---
Author Organization [facility] Address [facility] [place] [address] Care Team Providers Care Nurse Researcher Name Role Phone Linda Mccray MD Primary Care Provider [phone] Encounter Details Date Type Department Care Team (Latest Contact Info) Description 10/27/2016 - 10/27/2016 11:59 PM EST Hospital Encounter Radiology Library at [facility] [place] [place] [phone] Jl Sagastume MD [facility] [place] [address] Pain Discharge Disposition: Home Social History Tobacco [...] DX Chest (10/27/2016 12:00 AM EST) Narrative [facility] - 11/16/2016 3:24 PM EST This exam is for storage only and is auto-finalizing. Jl Sagastume MD IMG FILM LIBRARY OR DERABLES Performing Organization Address City/State/[facility] Co de Phone Number [place], [place] documented in this encounter Visit Diagnoses Diagnosis Pain Generalized pain documented in this encounter Care Teams Nurse Researcher Relationship Specialty Start Date End Date Linda Mccray MD [address] [place] [address] PCP - General Family Medicine 10/20/16 documented as of this encounter
--- OUTSIDE RECORDS SUMMARY | 2024-08-30 13:35 | XMS_ITS | Encounter Summary ---
Author Organization [facility] Address [facility] [place] [address] Care Team Providers Care Human Resources Office Manager Name Role Phone Linda Mccray MD Primary Care Provider [phone] Reason for Referral * Consultation (Routine) - Closed Specialty Diagnoses / Procedures Referred By Contac t Referred To Contact Gastroenterology Diagnoses Encounter for screening colonoscopy Radha Hallman MD [facility] [place] [address] Lena Clark MD [facility] [place] [address] Referral ID Status Reason Start Date Expiration Date V isits Requested Visits Authorized [id number] Closed Test Only 11/07/2016 11/07/2017 1 1 Reason for Visit * Reason Comments GI Problem * Consultation (Routine) - Closed Specialty Diagnoses / Procedures Referred By Contac t Referred To Contact Gastroenterology Diagnoses C-diff colitis, 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 Tirso Ghosh MD [address] [place] [address] [facility] Gastro [address] [place] [address] Referral ID Status Reason Start Date Expiration Date V isits Requested Visits Authorized [id number] Closed Connection Center 10/07/2016 10/07/2017 1 1 Encounter Details Date Type Department Care Team (Late st Contact Info) Description 11/07/2016 9:30 AM EST Office [place] [address] Radha Hallman MD [facility] [place] [address] Encounter for screening colonoscopy; Clostridium difficile colitis [...] Radha Hallman - 11/07/2016 9:30 AM EST [facility] Clostridium Difficile Colitis: Care Instructions Your [...] more? Visit our health information library at [email or web address] You can also view health information on [employer], your personal patient account. Log in or sign up today. Enter H511 in the search box to learn more about Clostridium Difficile Colitis: Care Instructions. ?? [id number] [employer]. Care instructions adapted under license by [facility]. This care instruction is for use with your licensed healthcare professional. If you have questions about a medical condition or this instruction, always ask your healthcare professional. [employer] disclaims any warranty or liability for your use of this information. Content Version: 11.0.242748; Current as of: March 15, 2016 documented in this encounter Progress Notes * Radha Hallman - 11/07/2016 9:30 AM EST [facility] Division of Gastroenterology and Hepatology Outpatient Consultation Reason for Visit: Refractory c difficile Referred by Tirso Ghosh History of Present Illness: London Neri is a 66 y.o. 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 During early August he was in the hospital in [facility] for a pneumothorax and he started [...] Pt will discuss these options with his monitor and storage bin tender and PCP. Problems: 1. Recurrent c difficile [...] Dr. Eduardo Hallman MD Fellow in Gastroenterology [place] [id number] P: [phone] F: [phone] CC Linda Mccray MD [address] [place] [address] * Lena Clark MD - 11/07/2016 9:30 [...] difficile documented in this encounter Care Teams Human Resources Office Manager Relationship Specialty Start Date End Date Linda Mccray MD [address] [place] [address] PCP - General Family Medicine 10/20/16 documented as of this encounter
--- OUTSIDE RECORDS SUMMARY | 2024-08-30 13:35 | XMS_ITS | Encounter Summary ---
Author Organization [facility] Address [facility] [place] [address] Care Team Providers Care Food Service Worker Hospital Name Role Phone Linda Mccray MD Primary Care Provider [phone] Encounter Details Date Type Department Care Team (Latest Contact Info) Description 10/26/2016 - 10/26/2016 11:59 PM EST Hospital Encounter Radiology Library [place] [facility] [place] [phone] Jl Sagastume MD [facility] [place] [address] Pain Discharge Disposition: Home Social History Tobacco [...] DX Chest (10/26/2016 12:00 AM EST) Narrative [facility] - 11/16/2016 3:25 PM EST This exam is for storage only and is auto-finalizing. Jl Sagastume MD IMG FILM LIBRARY OR DERABLES Performing Organization Address City/State/[facility] Co de Phone Number [place], [place] documented in this encounter Visit Diagnoses Diagnosis Pain Generalized pain documented in this encounter Care Teams Food Service Worker Hospital Relationship Specialty Start Date End Date Linda Mccray MD [address] [place] [address] PCP - General Family Medicine 10/20/16 documented as of this encounter
--- OUTSIDE RECORDS SUMMARY | 2024-08-30 13:35 | XMS_ITS | Encounter Summary ---
Author Organization [facility] Address [facility] [place] [address] Care Team Providers Care Chairman Of The Board Name Role Phone Linda Mccray MD Primary Care Provider [phone] Encounter Details Date Type Department Care Team (Latest Contact Info) Description 10/28/2016 - 10/28/2016 11:59 PM EST Hospital Encounter Radiology Library at [facility] [phone] Jl Sagastume MD [facility] [place] [address] Pain Discharge Disposition: Home Social History Tobacco [...] DX Chest (10/28/2016 12:00 AM EST) Narrative [facility] - 11/16/2016 3:23 PM EST This exam is for storage only and is auto-finalizing. Jl Sagastume MD IMG FILM LIBRARY OR DERABLES Performing Organization Address City/State/[facility] Co de Phone Number [place], [place] documented in this encounter Visit Diagnoses Diagnosis Pain Generalized pain documented in this encounter Care Teams Chairman Of The Board Relationship Specialty Start Date End Date Linda Mccray MD [address] [place] [address] PCP - General Family Medicine 10/20/16 documented as of this encounter
--- OUTSIDE RECORDS SUMMARY | 2024-08-30 13:35 | XMS_ITS | Encounter Summary ---
Author Organization [facility] Address [facility] [place] [address] Care Team Providers Care Cloth Dyeing Range Tender Name Role Phone Linda Mccray MD Primary Care Provider [phone] Encounter Details Date Type Department Care Team (Latest Contact Info) Description 10/23/2016 - 10/23/2016 11:59 PM EST Hospital Encounter Radiology Library at [facility] [place] [address] Jl Sagastume MD [facility] [place] [address] Pain Discharge Disposition: Home Social History Tobacco [...] DX Chest (10/23/2016 12:00 AM EST) Narrative [facility] - 11/16/2016 3:29 PM EST This exam is for storage only and is auto-finalizing. Jl Sagastume MD IMG FILM LIBRARY OR DERABLES Performing Organization Address City/State/[facility] Co de Phone Number [place], [place] documented in this encounter Visit Diagnoses Diagnosis Pain Generalized pain documented in this encounter Care Teams Cloth Dyeing Range Tender Relationship Specialty Start Date End Date Linda Mccray MD [address] [place] [address] PCP - General Family Medicine 10/20/16 documented as of this encounter
--- OUTSIDE RECORDS SUMMARY | 2024-08-30 13:35 | XMS_ITS | Encounter Summary ---
Author Organization [facility] Address [facility] [place] [address] Care Team Providers Care Assembler 1St Shift Name Role Phone Linda Mccray MD Primary Care Provider [phone] Encounter Details Date Type Department Care Team (Latest Contact Info) Description 10/29/2016 - 10/29/2016 11:59 PM EST Hospital Encounter Radiology Library at [facility] [place] [address] Jl Sagastume MD [facility] [place] [address] Pain Discharge Disposition: Home Social History Tobacco [...] DX Chest (10/29/2016 12:00 AM EST) Narrative [facility] - 11/16/2016 3:22 PM EST This exam is for storage only and is auto-finalizing. Jl Sagastume MD IMG FILM LIBRARY OR DERABLES Performing Organization Address City/State/[facility] Co de Phone Number [place], [place] documented in this encounter Visit Diagnoses Diagnosis Pain Generalized pain documented in this encounter Care Teams Assembler 1St Shift Relationship Specialty Start Date End Date Linda Mccray MD [address] [place] [address] PCP - General Family Medicine 10/20/16 documented as of this encounter
--- OUTSIDE RECORDS SUMMARY | 2024-08-30 13:35 | XMS_ITS | Encounter Summary ---
Author Organization [facility] Address [facility] [place] [address] Care Team Providers Care Electrophysiology Tech Name Role Phone Linda Mccray MD Primary Care Provider [phone] Encounter Details Date Type Department Care Team (Latest Contact Info) Description 10/25/2016 - 10/25/2016 11:59 PM EST Hospital Encounter Radiology Library at [facility] [place] [phone] Jl Sagastume MD [facility] [place] [address] Pain Discharge Disposition: Home Social History Tobacco [...] DX Chest (10/25/2016 12:00 AM EST) Narrative [facility] - 11/16/2016 3:26 PM EST This exam is for storage only and is auto-finalizing. Jl Sagastume MD IMG FILM LIBRARY OR DERABLES Performing Organization Address City/State/[facility] Co de Phone Number [place], [place] documented in this encounter Visit Diagnoses Diagnosis Pain Generalized pain documented in this encounter Care Teams Electrophysiology Tech Relationship Specialty Start Date End Date Linda Mccray MD [address] [place] [address] PCP - General Family Medicine 10/20/16 documented as of this encounter
--- NOTE | 2024-08-30 14:00 | RT.EKG_ITS ---
APPROVED REPORT Exam: Resting ECG Reason for Exam: SOB Patient Location: E HR:77 bpm ECG Measurements Heart Rate 77 AXIS OK 105 P 36 QRSd 177 QRS -86 QT 478 T 73 QTc 543 Conclusion A-V dual-paced complexes w/ some inhibition...other complexes also detected
--- NOTE | 2024-08-30 14:12 | W.ED.GENAD ---
Discharge Plan Disposition Patient Disposition: Home Discharge Details Clinical Impression: Pneumonia Primary Care Provider: Linda Mccray ED Provider: Luzma Yu Home Meds and New Rx's Prescriptions: New cefpodoxime 200 mg tablet 200 mg PO BID Qty: 10 0RF Rx Instructions: must administer with a meal/food azithromycin 250 mg tablet 250 mg PO DAILY 4 Days Qty: 4 0RF Rx Instructions: start on day 2 of therapy Continued warfarin [Coumadin] 10 MG tablet 0 - 1 tab PO DIRECTED Qty: 90 4RF Rx Instructions: DOSE BASED ON INR betamethasone dipropionate 0.05 % cream 1 applic topical PRN PRN sildenafil 100 mg tablet 100 mg PO DAILY PRN Rx Instructions: administer 30 minutes to 4 hours before activity tamsulosin 0.4 mg capsule 0.4 mg PO DAILY Patient Comments: TAKE 1 CAPSULE BY MOUTH DAILY rosuvastatin 20 mg tablet 20 mg PO DAILY Trelegy Ellipta 200-62.5-25 mcg blister with device 1 inh INHALATION DAILY Patient Comments: INHALE 1 PUFF INTO THE LUNGS DAILY albuterol sulfate 90 mcg/actuation HFA aerosol inhaler 2 puff INHALATION Q4H PRN Patient Comments: INHALE 2 PUFFS INTO THE LUNGS EVERY 6 HOURS NEEDED FOR WHEEZING OR SHORTNESS OF BREATH OR DIFFICULT BREATHING Discharge Instructions Additional Instructions: Please call Dr. Ashley first thing Monday to schedule a follow-up appointment, and keep your appointment on Monday with Dr Mccray. As you have already had your CT scan, you do not have to have another one done on Monday. A CD with the images has been sent to your nuclear waste management engineer. Please check your INR at home and call the on-call provider if it is out of range. Please take the two antibiotics as prescribed for the full course. Return to emergency care if you develop new chest pain, difficulty breathing, blood in your sputum, high fevers despite treatment, or if you are very worried you need to be rechecked again immediately Referrals: Linda Mccray [Primary Care Provider] - HPI General Date/Time Provider Initiated Documentation: 08/30/24 13:44. HPI Narrative: Dominic (preferred name) presented to the ED today for evaluation of hemoptysis with dyspnea and URI symptoms. He reports symptoms started 5 days ago, he had a couple episodes of hemoptysis 2 days ago, says that he thinks this was his sinuses. He reports that he is currently feeling better, reports that the congestion/sneezing/coughing has all resolved. Denies fever/chills, ear pain, dizziness, headaches, sore throat, chest pain, nausea/vomiting, abdominal discomfort, change in bowel bladder function. He is not on anticoagulation with warfarin for mechanical heart valves. 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 Physical exam remarkable for moderate dyspnea (3-4 word). Patient is alert and oriented, no acute distress. Lung sounds clear bilaterally, no adventitious lung sounds. Regular rate and rhythm. Normal gait. Extremities equally. DDx but is not limited to: Pneumonia, PE, emphysema exacerbation, viral illness such as COVID-19, severe anemia I independently interpreted the following tests: CBC shows mild anemia, 11.8 and 36.2 (previously 13.5 / 40.1 on 07/17/24 and 12.1/ 37.1 on 03/19/24). INR 3.1. CMP reassuring. EKG shows A-V paced rhythm. I did discuss patient's presentation with nuclear waste management engineer Dr. Tony Ashley; she is concerned that the patient may be downplaying symptoms as he described his situation differently to her. Pulmonology recommends bloodwork and CTA to rule out PE and further evaluate for pneumonia. IF PNA, recommends cefpodoxime and azithromycin for treatment. [email or web address], a CD will be mailed to the address she provided, [address] [place] [address]. I did provide this information to radiology. CTA remarkable for question of superimposed bilateral upper lobe infiltrates, as well as RLL infiltrate. Will treat for community-acquired pneumonia with cefpodoxime and azithromycin. First dose given in emergency department. Advised patient to continue taking his home meds. He does check his INR at home, recommend checking it over the weekend and adjusting dosing as advised by on-call provider. Reviewed discharge instructions with patient, including red flags indicating need for return to emergency care Related Data Home Medications ?Medication ?Instructions ?Recorded ?Confirmed warfarin 10 mg tablet (Coumadin) 0 - 1 tab PO DIRECTED #90 tabs 03/30/18 08/30/24 betamethasone dipropionate 0.05 % 1 applic topical PRN PRN 04/14/21 08/30/24 topical cream tamsulosin 0.4 mg capsule 0.4 mg PO DAILY 12/11/21 08/30/24 sildenafil 100 mg tablet 100 mg PO DAILY PRN 01/17/23 08/30/24 albuterol sulfate 90 mcg/actuation 2 puff inhalation Q4H PRN 07/17/24 08/30/24 aerosol inhaler fluticasone fur. 200 mcg-umeclid 1 inh inhalation DAILY 07/17/24 08/30/24 62.5 mcg-vilant 25 mcg inhalat.powder (Trelegy Ellipta) rosuvastatin 20 mg tablet 20 mg PO DAILY 07/17/24 08/30/24 azithromycin 250 mg tablet 250 mg PO DAILY 4 days #4 tabs 08/30/24 cefpodoxime 200 mg tablet 200 mg PO BID #10 tabs 08/30/24 Previous Rx's ?Medication ?Instructions ?Recorded warfarin 10 mg tablet (Coumadin) 0 - 1 tab PO DIRECTED #90 tabs 03/30/18 azithromycin 250 mg tablet 250 mg PO DAILY 4 days #4 tabs 08/30/24 cefpodoxime 200 mg tablet 200 mg PO BID #10 tabs 08/30/24 Allergies Allergy/AdvReac Type Severity Reaction Status Date / Time amiodarone Allergy Unknown Verified 08/30/24 13:28 General Stated Complaint: RespSymp YASMIN: 3 Review of Systems Narrative: see HPI Exam Const General: cooperative, healthy appearing, comfortable and no acute distress Nutritional Appearance: thin Orientation: alert and oriented x3 Chest Chest: normal inspection of the chest Resp Effort & Inspection: normal respiratory effort, no cough and tachypneic (mild, with 3-4 word dyspnea) Auscultation: clear to auscultation bilaterally Cardio Rate: regular rate Rhythm: regular rhythm Extrem General: no pedal edema Course Vital Signs Vital signs: Vital Signs Temperature 36.9 C 08/30/24 13:22 Pulse 75 08/30/24 13:22 Respiratory Rate 18 08/30/24 13:22 Blood Pressure 146/59 H 08/30/24 13:22 Pulse Oximetry 98 08/30/24 13:22 Temperature 36.9 C 08/30/24 13:22 Pulse 75 08/30/24 13:22 Respiratory Rate 18 08/30/24 13:22 Respiratory Effort Normal 08/30/24 13:32 Respiratory Depth Normal 08/30/24 13:32 Blood Pressure 146/59 H 08/30/24 13:22 Pulse Oximetry 98 08/30/24 13:22 Pain Level 0 08/30/24 13:22 Medical Decision Making Quality:SDOH Health Related Social Needs: No Data to Display PFSH All Active Problems (Updated 08/30/24 @ 15:57 by Luzma Polanco) Pneumonia (Acute) Left rotator cuff tear arthropathy (Acute) subacromial corticosteroid injection 02/07/23 Cardiac pacemaker in situ (Chronic) dual lead Medtronic - PG replacement 07/31/2020 Heart valve replaced (Chronic 11/30/12) Aortic/Mitral mechanical Hypertension (Chronic) AV block, complete (Acute) Hematoma, postoperative (Acute) Tension pneumothorax, spontaneous (Acute) Lung blebs (Acute) Pneumothorax on left (Acute) Persistent air leak (Acute) Encounter for medication administration (Acute) Elevated INR (Acute) Hematuria (Acute) Multiple rib fractures involving four or more ribs (Acute) Traumatic hemo-pneumothorax (Acute) Blunt trauma (Acute) Multiple fractures of ribs of left side (Acute) Persistent atrial fibrillation (Acute) persistent since 03/09/2021 after VATS for spontaneous pneumo anticoag with coumadin for mechanical valves No RVR - hx CHB with pacemaker Medical History Near syncope C. difficile colitis COVID-19 vaccine administered 12/15/20 01/19/21 Recurrent spontaneous pneumothorax 02/2021 pt. stated he had this permanently fixed where they affixed the lung to the chest wall so it would stop recurring Dizziness Unilateral inguinal hernia Primary malignant neoplasm of bladder Mitral valve regurgitation replaced-1998 History of coagulation defect Clostridium difficile colitis (09/20/16) Anticoagulated on warfarin AVR/MVR; goal 2.5-3.5 Multiple rib fractures Surgical History History of aortic valve replacement [id number] with metal valve Presence of other heart-valve replacement (11/30/12) Aortic/Mitral Tonsillectomy and adenoidectomy Pacemaker (~2009) HERNIA REPAIR (~2007) Appendectomy Family History Mother Personal history of malignant neoplasm LIVER Father Heart disease Sister No problems noted. Brother No problems noted. 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 H/o emphysema and frequent PNA. Pulmonology concerned for PE vs PNA. Labs reassuring. Awaiting CTA read Last updated by Luzma Yu at 08/30/24 15:36
--- NOTE | 2024-08-30 14:15 | DI.CT_ITS ---
Exam(s) CT CHEST PE CTA EXAM: CT CHEST PE CTA CLINICAL HISTORY: hemoptysis, concern for PNA vs PE. TECHNIQUE: Imaging Protocol: Axial CT angiography was performed with multi-slice acquisition and mu lti-planar reconstructions as well as axial, coronal and sagittal MIP reconstructions. Computer aided detection (CAD) was utilized. CONTRAST MATERIAL: Intravenous: Omnipaque 350 Contrast volume:70 ml COMPARISON: CT CT CHEST W from 12/11/2021 CR,XR XR PORTABLE CHEST AP from 07/17/2024 FINDINGS: Pulmonary Arteries: No evidence of filling defect to suggest pulmonary emboli. Mediastinum and Michelle: No dominant adenopathy or fluid collection. Pulmonary parenchyma: Some underlying severe emphysematous changes at the lung apices. Milder emphys ematous changes in the mid and lower lobes. Biapical scarring. Mildly patchy density seen in both u pper lobes which could represent superimposed pneumonitis. Findings were not present on the prior st udy. Increased densities are also noted posteriorly in the right lower lobe which may represent atel ectasis versus pneumonia. The findings are asymmetric to the left side. No suspicious mass. Pleura: No effusion or pneumothorax. Heart: The heart is mildly dilated, left atrium and left ventricle. Mitral valve prosthesis.. Coron jenny artery calcifications are seen. Pacemaker. Aorta: Thoracic aorta non-dilated. No dissection. Severe atherosclerotic changes. Upper abdomen: No acute findings. Bones: Old bilateral rib fractures. Degenerative changes in the thoracic spine. Sternal wires. Tubes, Catheters, and Lines: Pacemaker. Soft tissues: Unremarkable. IMPRESSION: No evidence of pulmonary embolism. Underlying emphysematous changes greater in the upper lobes. Question of superimposed bilateral uppe r lobe infiltrates as well as right lower lobe infiltrate. RADIATION DOSE DELIVERED: Total DLP DATA REPOSITORY: All CT scans at this facility are submitted to the National Radiology Data Registry (NRDR) Dose Index Registry (DIR) with the [employer] (ACR). RADIATION OPTIMIZATION: All CT scans at this facility use at least one of these dose optimization te chniques: automated exposure control; mA and/or kV adjustment per patient size (includes targeted exa ms where dose is matched to clinical indication); or iterative reconstruction.
[2024-08-30 14:54] LABS: Abs Immature Grans 0.02 10^3/uL (0.0-0.06); Absolute Basophil Count 0.04 10^3/uL (0.0-0.2); Absolute Eosinophil Count 0.19 10^3/uL (0.0-0.7); Absolute Lymphocyte Count 0.75 10^3/uL (1.2-3.4); Absolute Monocyte Count 0.63 10^3/uL (0.1-0.8); Absolute Neutrophil Count 3.81 10^3/uL (1.2-6.7); Basophils % 0.7 %; Eosinophils % 3.5 %; HCT 36.2 % (40.0-50.0); HGB 11.8 g/dL (13.5-17.5); Immature Grans % 0.4 %; Lymphocytes % 13.8 %; MCH 29.7 pg (27.0-33.0); MCHC 32.6 % (32.0-36.0); MCV 91 fL (80-95); MPV 10.1 fL (8.0-11.0); Monocytes % 11.6 %; Platelet Count 173 10^3/uL (130-400); RBC 3.97 10^6/uL (4.36-5.78); RDW 14.9 % (11.8-14.1); RDW-SD 50.2 fL; WBC 5.44 10^3/uL (4.4-10.8)
[2024-08-30 15:01] LABS: INR 3.1 (0.9-1.1)
[2024-08-30 15:13] LABS: ALT 23 U/L (16-63); AST 29 U/L (15-37); Albumin 3.7 g/dL (3.4-5.0); Alkaline Phosphatase 65 U/L (46-116); Anion Gap 8.1 mmol/L (3-11); BUN 19 mg/dL (7-18); Bilirubin, Total 0.95 mg/dL (0.2-1.0); CO2 29.9 mmol/L (21.0-32.0); CREATININE 0.8 mg/dL (0.70-1.30); Calcium 8.8 mg/dL (8.5-10.1); Chloride 105 mmol/L (98-107); Estimated GFR 92.29 (mL/min/1.73m2); Glucose 87 mg/dL (74-106); Sodium 143 mmol/L (136-145); Total Protein 7.3 g/dL (6.4-8.2)
[2024-08-30] MEDS: Normal Saline - Diluent 50 ML VIAL IJ ×2 (15:19→15:33)
[2024-08-30 15:32] LABS: COVID-19 PCR Negative (Negative); Influenza A PCR Negative (Negative); Influenza B PCR Negative (Negative); RSV PCR Negative (Negative)
[2024-08-30 15:33] LABS: Source Nasopharynx
[2024-08-30] MEDS: Omnipaque 350 MG/ML 100 ML BTL IJ (15:34)
[2024-08-30] MEDS: Azithromycin 250 MG TAB 500 MG PO (16:02)
[2024-08-30] MEDS: Cefpodoxime 200 MG TAB PO (16:02)
== END 2024-08-30 16:11 | disposition home or self-care (01) ==
PROVIDERS: Emergency Provider Nurse Practitioner Family; PCP Family Medicine
DX: J18.9 Pneumonia, unspecified organism (principal); J44.9 Chronic obstructive pulmonary disease, unspecified; Z95.0 Presence of cardiac pacemaker; Z95.2 Presence of prosthetic heart valve; Z79.01 Long term (current) use of anticoagulants; Z87.891 Personal history of nicotine dependence
CPT/HCPCS: 36415; 71275; 80053; 87637; 93005; 99285; 85025; 85610; 93010; 99284; J3490

== ENCOUNTER 2025-02-24 01:01 | Outpatient (CLI) | payer MEDICARE, BC, SELFPAY ==
--- NOTE | 2025-02-24 | DI.RAD_ITS ---
Exam(s) RF MODIFIED SPEECH BA SWALLOW TECHNIQUE: Modified barium swallow was performed in conjunction with speech pathology. CONTRAST MATERIAL: Oral barium Oral water soluble contrast was administered. COMPARISON: No exams were available for comparison FINDINGS: There is no margarito aspiration evident on this examination. There was some vallecular residue evident as well as a small left of center Zenker's diverticulum measuring approximately 1 cm. Esophagus diam eter normal. No achalasia nor obvious hiatal hernia demonstrated. IMPRESSION: No evidence of aspiration or penetration. Small Zenker's diverticulum noted. See separate detailed report by the speech therapist. RADIATION DOSE DELIVERED: christofer Palencia=12.5 mGy
--- NOTE | 2025-02-24 09:11 | ST.MBS_ITS ---
Date of Service Date of service: 02/24/25 Time of Service: 09:00 Modified Barium Swallow Study Findings: Video fluoroscopic Swallowing Evaluation (VFSE) / Modified Barium Swallow Study (MBSS) Speech Language Pathology Report Patient referred for VFSE/MBSS from Dr. Manish Ashley, [place] [facility] [place] given question of silent aspiration in the setting of recurrent pulmonary complications. HPI & Patient report of function: Patient is a 74 year old male with history of COPD/emphysema, hx AVR/MVR on coumadin, s/p pacemaker, h/o recurrent spontaneous left pneumothorax, history RLL pneumonia and bilateral upper lobe consolidation requiring antibiotics and steroids in early August 2024. He has had weight loss with his illnesses and is working with PT to put weight back on. Dominic states I think my swallow is different over the last several months than it used to be but does not identify specific trigger foods/liquids. IMPRESSIONS: Patient presents with moderate pharyngeal phase sensory-motor dysphagia, with primary findings of trace/micro aspiration and upper esophageal diverticulum. There is delayed swallow initiation, where the bolus reaches the pyriforms and spills into the laryngeal vestibule prior to swallow initiation. This results in consistent penetration above the level of the vocal cords with both thin and mildly thick liquids. While this does appear to be immediately expelled, upon further review it does appear there is trace coating remaining in the laryngeal vestibule intermittently after the swallow, with indication in one slide of aspiration of very trace quantity in which thin liquid residue from prior swallow momentarily dips below vocal cords and is then expelled back into laryngeal vestibule space. No cough reflex appreciated with deeper penetration or aspiration episodes. In addition, there is reduced BOT retraction and mildly decreased anterior hyoid motion. This results in incomplete epiglottic deflection and pharyngeal stasis in the vallecular and pyriforms. Anticipate anatomical variant of longer than expected epiglottis also contributing to this. Residue does eventually clear with repeat swallows. *In addition, there is what appears consistent with a Zenker's diverticulum, though this is located lower than normally seen for a Zenker's. Per radiologist this is located at T1, on the L side, and is approximately 1cm in size. The diverticulum consistently fills with liquid and solids and does not fully empty within timeframe of the study. Overall, though no significant margarito aspiration is appreciated in the study, anticipate that these collective findings could be correlated with silent aspiration. Swallow safety and efficiency are impaired. Ongoing HOTEL FRONT OFFICE MANAGER indicated for strategy training and trials of pharyngeal strengthening exercises. Patient is a good candidate for intervention with fair to good prognosis overall. Specialist referrals:? Consider medical follow up to address esophageal diverticulum findings RECOMMENDATIONS: Diet Texture Recommendation:? IDDSI LEVEL SOLIDS 6-Soft & Bite-Sized Solids LIQUIDS 0-Thin Liquids MEDICATIONS As tolerated Diet texture modification is per patient's preference; please adjust diet textures at patient's discretion & collaboration with care team. Risk Management Strategies:? Behavioral reflux precautions, including upright position during + 90 mins after meals. Small bites, approx [id number] Small sips, approx 10 mL Encourage avoidance of straws Alternate solids/liquids as able Multiple swallows per bolus to encourage clearance of pharyngeal stasis/residue Control risk factors for aspiration pneumonia via (a) thorough oral hygiene & (b) maintaining physical mobility as tolerated PLAN: Therapy: Recommend subsequent outpatient session with HOTEL FRONT OFFICE MANAGER to review results of today's exam and develop treatment plan as appropriate. May consider the following: Oropharyngeal Exercises to target deficits noted in objective section above Further Compensatory Strategy Training Further Training/Education in Risk Management Goals: Environmental Science Program Director goals: 1) Patient will optimize swallow safety/efficiency and remain free from aspiration related illness. Short Term Goals: 1) Patient will verbalize comprehension re: swallowing anatomy and physiology and MBSS findings 2) Patient will verbalize/demonstrate comprehension of strategies to reduce risks for developing aspiration related illness 3) Patient will return demonstration of pharygneal strengthening exercises for BOT strengthening and increased hyolaryngeal movement. OBJECTIVE Videofluoroscopic Swallow Evaluation (VFSE/MBSS) was conducted in the lateral and [id number] projection by Speech-Language Pathologist, in collaboration with Radiologist, to evaluate oropharyngeal swallow function. Anatomic view under fluoroscopy: WFL PO Barium Contrast Trials Oral barium water-soluble contrast was administered as follows: IDDSI Level 0 Varibar thin liquid (40% w/v) IDDSI Level 2 Varibar nectar thick/mildly thick liquid (40% w/v) IDDSI Level 4 Varibar pudding/pureed/extremely thick (40% w/v) IDDSI Level 7 Regular Solid: 1/2 nhi cracker coated in 3 mL Varibar pudding MBSImP Component Scores: COMPONENT Scale SCORE 1 Lip closure (0-4) 0 Resulted in no labial escape 2 Hold Position (0-3) 0 Maintained a cohesive bolus between tongue to palatal seal 3 Bolus Preparation (0-4) 0 Resulted in timely and efficient chewing and mashing 4 Bolus Transport (0-4) 0 Was with brisk tongue motion 5 Oral Residue (0-4) 0 Was not observed. There was complete oral clearance 6 Swallow Initiation (0-4) 3 Occurred when the bolus head was in the pyriform sinuses 7 Soft Palate Elevation (0-4) 0 Resulted in no bolus between soft palate and the pharyngeal wall 8 Laryngeal Elevation (0-3) 0 Demonstrated complete superior movement of thyroid cartilage with complete approximation of arytenoids to epiglottic petiole 9 Anterior Hyoid Motion (0-2) 1 Demonstrated partial anterior movement 10 Epiglottic Movement (0-2) 1 Resulted in partial inversion 11 Laryngeal Closure (0-2) 1 Was incomplete with narrow a column of air/contrast in laryngeal vestibule 12 Pharyngeal Stripping Wave (0-2) 1 Was present, but diminished 13 Pharyngeal Contraction (0-3) NA 14 PES Opening (0-3) 1 Demonstrated partial distension/partial duration, with partial obstruction of flow 15 Tongue Base Retraction (0-4) 2 Allowed a narrow column of contrast or air between the retracted tongue base and the posterior pharyngeal wall 16 Pharyngeal Residue (0-4) 2 Was a collection of residue within or on pharyngeal structures 17 Esophageal Clearance (0-4) 1 Resulted in esophageal retention Results: COMPONENT Scale SCORE 1 Oral Score (0-18) 3 2 Pharyngeal Score (0-29) 9 3 Esophageal Score (0-4) 1 Penetration-Aspiration Scale: COMPONENT Scale SCORE 1 Thin liquid (1-8) 6 Contrast entered the airway, passed below the vocal folds, and was ejected into the larynx or out of the airway. 2 [place] thick (1-8) 2 Contrast entered the airway, remained above the vocal folds, and was ejected from the airway. 3 Honey thick (1-8) NA 4 Pudding thick (1-8) 1 Contrast did not enter the airway 5 Cookie (1-8) 1 Contrast did not enter the airway Thank you for allowing us to take part in this patient's care. Please feel free to contact the [facility] Speech Language Pathology Department with any questions/concerns.
[2025-02-24] MEDS: Barium Sulfate 81% w/w for Oral Suspension 148 GM BTL PO (09:34)
[2025-02-24] MEDS: Barium Sulfate Oral Paste 40% W/V 230 ML TUBE PO (09:35)
[2025-02-24] MEDS: Barium Sulfate 40% W/V 240 ML BTL PO (09:36)
== END 2025-02-24 01:21 ==
LOC: DI 01:01
PROVIDERS: PCP Family Medicine; Visit Provider Internal Medicine Critical Care Medicine
DX: R13.13 Dysphagia, pharyngeal phase (principal); K22.5 Diverticulum of esophagus, acquired
CPT/HCPCS: 92526; 74221

== ENCOUNTER 2025-05-12 14:02 | Emergency (ER) | payer MEDICARE, BC, SELFPAY ==
[2025-05-12] VITALS (20 sets, daily range): BP systolic 121–155; BP diastolic 52–79; PULSE 69–87; RESP 13–21; TEMP 36.3–36.6; O2SAT 96–99
--- NOTE | 2025-05-12 14:00 | RT.EKG_ITS ---
APPROVED REPORT Exam: Resting ECG Reason for Exam: dyspnea Patient Location: E HR:80 bpm ECG Measurements Heart Rate 80 AXIS CA 252 P 0 QRSd 170 QRS -86 QT 465 T 86 QTc 537 Conclusion Atrial-sensed ventricular-paced rhythm...ventricular pacing tracks p-waves
--- NOTE | 2025-05-12 14:24 | W.ED.GENAD ---
Discharge Plan Disposition Patient Disposition: Home Condition: Stable Discharge Details Clinical Impression: Dyspnea, COPD exacerbation Primary Care Provider: Linda Mccray ED Provider: Matti Wheat Home Meds and New Rx's Prescriptions: New doxycycline hyclate 100 mg tablet 100 mg PO BID Qty: 19 0RF Continued warfarin [Coumadin] 10 MG tablet 0 - 1 tab PO DIRECTED Qty: 90 4RF Rx Instructions: DOSE BASED ON INR betamethasone dipropionate 0.05 % cream 1 applic topical PRN PRN sildenafil 100 mg tablet 100 mg PO DAILY PRN Rx Instructions: administer 30 minutes to 4 hours before activity tamsulosin 0.4 mg capsule 0.4 mg PO DAILY Patient Comments: TAKE 1 CAPSULE BY MOUTH DAILY rosuvastatin 20 mg tablet 20 mg PO DAILY Trelegy Ellipta 200-62.5-25 mcg blister with device 1 inh INHALATION DAILY Patient Comments: INHALE 1 PUFF INTO THE LUNGS DAILY albuterol sulfate 90 mcg/actuation HFA aerosol inhaler 2 puff INHALATION Q4H PRN Patient Comments: INHALE 2 PUFFS INTO THE LUNGS EVERY 6 HOURS NEEDED FOR WHEEZING OR SHORTNESS OF BREATH OR DIFFICULT BREATHING prednisone 20 mg tablet 40 mg PO DAILY Patient Comments: TAKE TWO TABLETS BY MOUTH EVERY DAY FOR 5 DAYS Discharge Instructions Additional Instructions: Your blood work and x-ray did not show any concerning findings at this time. Continue to take the prednisone as prescribed. You can use her albuterol inhaler 2 puffs every 2-4 hours as needed. If you feel significantly more ill or short of breath return to the emergency department for reevaluation. If no improvement within a week follow-up with your primary care provider [facility] General Date/Time Provider Initiated Documentation: 05/12/25 14:03. Limitations to Documentation: no limitations. Information obtained by: patient. History of Present Illness 75 year old M presents to the emergency department with the chief complaint of dyspnea, described as moderate, Patient started experiencing this day(s) (3) and it has been constant. Rest improves symptom(s), Movement worsens symptoms . Patient notes no other symptoms.. Patient did receive the following treatments prior to arrival, none Related Data Home Medications ?Medication ?Instructions ?Recorded ?Confirmed warfarin 10 mg tablet (Coumadin) 0 - 1 tab PO DIRECTED #90 tabs 03/30/18 05/12/25 betamethasone dipropionate 0.05 % 1 applic topical PRN PRN 04/14/21 05/12/25 topical cream tamsulosin 0.4 mg capsule 0.4 mg PO DAILY 12/11/21 05/12/25 sildenafil 100 mg tablet 100 mg PO DAILY PRN 01/17/23 05/12/25 albuterol sulfate 90 mcg/actuation 2 puff inhalation Q4H PRN 07/17/24 05/12/25 aerosol inhaler fluticasone fur. 200 mcg-umeclid 1 inh inhalation DAILY 07/17/24 05/12/25 62.5 mcg-vilant 25 mcg inhalat.powder (Trelegy Ellipta) rosuvastatin 20 mg tablet 20 mg PO DAILY 07/17/24 05/12/25 doxycycline hyclate 100 mg tablet 100 mg PO BID #19 tabs 05/12/25 prednisone 20 mg tablet 40 mg PO DAILY 05/12/25 05/12/25 Previous Rx's ?Medication ?Instructions ?Recorded warfarin 10 mg tablet (Coumadin) 0 - 1 tab PO DIRECTED #90 tabs 03/30/18 doxycycline hyclate 100 mg tablet 100 mg PO BID #19 tabs 05/12/25 Allergies Allergy/AdvReac Type Severity Reaction Status Date / Time amiodarone Allergy Unknown Verified 05/12/25 14:09 General Stated Complaint: RespSymp YASMIN: 3 Review of Systems All systems reviewed & are unremarkable except as noted in HPI and below Constitutional Constitutional: Denies chills, Denies fever(s) and Denies weakness Cardiovascular Cardiovascular: Denies chest pain and Reports dyspnea Respiratory Respiratory: Reports cough and Reports dyspnea Gastrointestinal Gastrointestinal: Denies abdominal pain, Denies nausea and Denies vomiting Neurologic Neurologic: Denies weakness Psychiatric Psychiatric: Denies depression Exam Const General: no acute distress Orientation: alert [facility] Head: normal to inspection Ears: external ears normal General nose exam: external nose normal Mouth: moist mucous membranes Eyes General: appearance normal, both eyes and all related structures Neck Neck: normal visual inspection Resp Effort & Inspection: normal respiratory effort and able to speak in complete sentences Auscultation: wheezes Cardio Jugular venous pressure: no JVD Rate: regular rate Skin General skin exam: no rashes or lesions noted Neuro General: patient alert and patient oriented x3 Extrem General: normal to inspection Psych Mental Status: mental status grossly normal Course Vital Signs Vital signs: Vital Signs Temperature 36.3 C L 05/12/25 14:04 Pulse 87 05/12/25 14:04 Respiratory Rate 16 05/12/25 14:04 Blood Pressure 135/73 05/12/25 14:04 Pulse Oximetry 96 05/12/25 14:04 Temperature 36.3 C L 05/12/25 14:04 Temperature Source Oral 05/12/25 14:04 Pulse 87 05/12/25 14:04 Respiratory Rate 16 05/12/25 14:04 Blood Pressure 135/73 05/12/25 14:04 Blood Pressure Position Sitting 05/12/25 14:04 Pulse Oximetry 96 05/12/25 14:04 Oxygen Delivery Method Room Air 05/12/25 14:04 Oxygen Flow Rate 0 05/12/25 14:04 Pain Level 0 05/12/25 14:04 Medical Decision Making 75-year-old male with a history of pacemaker, heart valve replacements on warfarin, COPD who comes in with dyspnea with exertion for a few days. He denies any fevers, chest pain or pressure, has mild cough. He is alert and oriented speaking clearly. Stable vital signs on arrival. He apparently took a dose of prednisone 40 mg prescribed by his PCP today. He has apical wheezing bilaterally with diminished lung sounds at the bases. No leg swelling or calf tenderness. Given his history we will treat with DuoNeb and IV Solu-Medrol. Given his dyspnea with exertion we will also check a CBC CMP and troponins. He is already on warfarin so I doubt PE. He has no tearing back pain to suggest dissection. Will obtain a chest x-ray to evaluate for possible infiltrates. Labs and x-ray without emergent findings. Patient feels better and lung sounds are improved. Stable vital signs. He is can continue the prednisone that was prescribed to him. Given his cough I am also going to initiate antibiotics given his COPD history. He is stable for discharge and will follow-up with his PCP if not improving and return precautions given Differential Diagnosis Differential Diagnosis: Anemia, COPD, pneumonia Medical Records Medical records reviewed: Yes I reviewed the patient's medical records. Lab Data Lab results reviewed: Yes I reviewed the patient's lab results. ECG Data Attestation: I personally reviewed and interpreted this ECG (s) as follows: Prior ECG tracings: available for review Interpretation: paced, rate of 80 no stemi PFSH All Active Problems (Updated 05/12/25 @ 16:14 by Matti Wheat MD) COPD exacerbation (Acute) Dyspnea (Acute) Left rotator cuff tear arthropathy (Acute) subacromial corticosteroid injection 02/07/23 Cardiac pacemaker in situ (Chronic) dual lead Medtronic - PG replacement 07/31/2020 Heart valve replaced (Chronic 11/30/12) Aortic/Mitral mechanical Hypertension (Chronic) AV block, complete (Acute) Hematoma, postoperative (Acute) Tension pneumothorax, spontaneous (Acute) Lung blebs (Acute) Pneumothorax on left (Acute) Persistent air leak (Acute) Encounter for medication administration (Acute) Elevated INR (Acute) Hematuria (Acute) Multiple rib fractures involving four or more ribs (Acute) Traumatic hemo-pneumothorax (Acute) Blunt trauma (Acute) Multiple fractures of ribs of left side (Acute) Persistent atrial fibrillation (Acute) persistent since 03/09/2021 after VATS for spontaneous pneumo anticoag with coumadin for mechanical valves No RVR - hx CHB with pacemaker Medical History Near syncope C. difficile colitis COVID-19 vaccine administered 12/15/20 01/19/21 Recurrent spontaneous pneumothorax 02/2021 pt. stated he had this permanently fixed where they affixed the lung to the chest wall so it would stop recurring Dizziness Unilateral inguinal hernia Primary malignant neoplasm of bladder Mitral valve regurgitation replaced-1998 History of coagulation defect Clostridium difficile colitis (09/20/16) Anticoagulated on warfarin AVR/MVR; goal 2.5-3.5 Multiple rib fractures Surgical History History of aortic valve replacement [id number] 1998 with metal valve Presence of other heart-valve replacement (11/30/12) Aortic/Mitral Tonsillectomy and adenoidectomy Pacemaker (~2009) HERNIA REPAIR (~2007) Appendectomy Family History Mother Personal history of malignant neoplasm LIVER Father Heart disease Sister No problems noted. Brother No problems noted. 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
[2025-05-12 14:32] LABS: BE (Venous) -1 mmol/L (-2-3); HCO3 (Venous) 24 mmol/L (23-28); O2 Sat (Venous) 90 %; TCO2 (Venous) 22 mmol/L (24-29); pCO2 (Venous) 40 mmHg (41-51); pO2 (Venous) 60 mmHg
[2025-05-12 14:39] LABS: Abs Immature Grans 0.01 10^3/uL (0.0-0.06); HCT 36.9 % (40.0-50.0); HGB 12.3 g/dL (13.5-17.5); Immature Grans % 0.3 %; MCH 29.9 pg (27.0-33.0); MCHC 33.3 % (32.0-36.0); MCV 90 fL (80-95); MPV 10.7 fL (8.0-11.0); Platelet Count 166 10^3/uL (130-400); RBC 4.11 10^6/uL (4.36-5.78); RDW 13.6 % (11.8-14.1); RDW-SD 44.6 fL; WBC 3.48 10^3/uL (4.4-10.8)
[2025-05-12 14:51] LABS: INR 3.2 (0.9-1.1); PTT Activated 47.1 sec (20.6-30.2); Prothrombin Time 29.6 sec (9.1-11.1)
--- NOTE | 2025-05-12 14:55 | DI.RAD_ITS ---
Exam(s) XR CHEST 2V PA LATERAL EXAM: XR CHEST 2V PA LATERAL CLINICAL HISTORY: dyspnea TECHNIQUE: 2D digital imaging was performed of the chest. Two images were obtained. PA and lateral views were obtained. COMPARISON: CR,XR XR PORTABLE CHEST AP from 07/17/[address] CHEST WITHOUT CONTRAST from 12/26/2024 FINDINGS: MEDIASTINUM: Normal. HEART: Normal. Heart valve prostheses are present. There is a pacing device. The leads appear in good position. PULMONARY VASCULATURE: Normal. LUNGS: The lungs are hyperinflated suggesting underlying COPD. There is again seen scarring in the lung apices, right greater than left. PLEURAL SPACE: No pleural effusion or pneumothorax. BONE:Within normal limits for the patient's age. There are multiple old bilateral rib fracture deformities. Sternal wires are in place. OTHER FINDINGS:The nipple shadows are in place. IMPRESSION: No acute pulmonary findings. DATA REPOSITORY: RADIATION DOSE DELIVERED:
[2025-05-12 15:02] LABS: ALT 46 U/L (16-63); AST 47 U/L (15-37); Albumin 4.3 g/dL (3.4-5.0); Alkaline Phosphatase 67 U/L (46-116); Anion Gap 12.4 mmol/L (3-11); BUN 20 mg/dL (7-18); Bilirubin, Total 1.1 mg/dL (0.2-1.0); CO2 24.6 mmol/L (21.0-32.0); Calcium 9.3 mg/dL (8.5-10.1); Chloride 101 mmol/L (98-107); Estimated GFR 95.49 (mL/min/1.73m2); Glucose 120 mg/dL (74-106); Magnesium 1.8 mg/dL (1.8-2.4); Potassium 4.2 mmol/L (3.5-5.1); Sodium 138 mmol/L (136-145); Total Protein 7.6 g/dL (6.4-8.2)
[2025-05-12 15:08] LABS: TSH (W/Ref FT4) 1.03 uIU/mL (0.36-3.74); Troponin I 10 ng/L (<or=76)
[2025-05-12] MEDS: Albuterol/Ipratropium 3 ML UPD VIAL UPD (15:10)
[2025-05-12] MEDS: methylPREDNISolone SUCC 125 MG VIAL IVP (15:11)
[2025-05-12 15:24] LABS: COVID-19 PCR Negative (Negative); RSV PCR Negative (Negative)
[2025-05-12 15:52] LABS: Troponin I 9 ng/L (<or=76)
[2025-05-12] MEDS: Doxycycline Hyclate 100 MG CAP PO (16:31)
== END 2025-05-12 16:33 | disposition home or self-care (01) ==
PROVIDERS: Emergency Provider Emergency Medicine; PCP Family Medicine
DX: R06.09 Other forms of dyspnea (principal); J44.1 Chronic obstructive pulmonary disease with (acute) exacerbation; Z95.2 Presence of prosthetic heart valve; Z95.0 Presence of cardiac pacemaker
CPT/HCPCS: 80053; 82805; 87637; 93005; 94640; 96374; 99284; 71046; 83735; 84443; 84484; 85025; 85610; 85730; 93010; J2919; J7620

== ENCOUNTER → 2025-06-09 09:49 | Outpatient (BNVA) | payer MEDICARE, BC, SELFPAY | PROVIDERS: PCP Family Medicine; Referring Provider Family Medicine; Visit Provider Internal Medicine Pulmonary Disease | DX: J44.9 Chronic obstructive pulmonary disease, unspecified (principal); J93.9 Pneumothorax, unspecified; R91.1 Solitary pulmonary nodule; Z87.891 Personal history of nicotine dependence | CPT/HCPCS: 99215 ==

== ENCOUNTER 2025-06-16 04:51 | Outpatient (CLI) | payer MEDICARE, BC, SELFPAY ==
[2025-06-16] MEDS: Levalbuterol HFA 15 GM INH 4 PUFF IH (09:14)
[2025-06-16] MEDS: Inhaler, Assist Device 1 EACH MC (09:14)
--- NOTE | 2025-06-18 07:22 | PFT_ITS ---
Date of service: 06/16/25 Time of Service: 08:06 Pulmonary Function Test Result Indications: COPD Impression 1. Good patient effort was noted. ATS standards for reproducibility were met. 2. Normal spirometry. 3. Following the administration of a bronchodilator there was not a significant response 4. TLC was normal. No evidence of restrictive lung disease 5. DLCO was reduced at 55%, indicating a moderate defect in alveolar gas exc hange
== END 2025-06-16 04:52 | disposition home or self-care (01) ==
LOC: RT 04:52
PROVIDERS: PCP Family Medicine; Visit Provider Internal Medicine Pulmonary Disease
DX: J44.9 Chronic obstructive pulmonary disease, unspecified (principal)
CPT/HCPCS: 94060; 94726; 94729

== ENCOUNTER 2025-06-25 14:53 | Outpatient (CLI) | payer MEDICARE, BC, SELFPAY ==
--- NOTE | 2025-06-25 14:30 | DI.CT_ITS ---
Exam(s) CT CHEST WO EXAM: CT CHEST WO CLINICAL HISTORY: SOB R06.02 PULM NODULES/LESION R91.8 FU. TECHNIQUE: Imaging protocol: Axial computed tomography images were obtained and coronal and sagittal reformatted images were created and reviewed. Computer aided detection (CAD) was utilized. CONTRAST MATERIAL: Noncontrast COMPARISON: CT CT CHEST WITHOUT CONTRAST from 12/26/2024 CR XR CHEST 2V PA LATERAL from 05/12/2025 FINDINGS: Pulmonary parenchyma: Stable 5 millimeter nodule in the right middle lobe. No consolidation. No suspicious masses. Scattered tiny calcified granulomas. Emphysema: Moderate centrilobular emphysematous changes, greater in the upper lobes. Bilateral apical pleural thickening. Tracheobronchial tree: No mucous plugging. Mild bronchiectasis medial right upper lobe. Bronchiectasis. Pleura: No effusion or pneumothorax. Heart: The heart is not dilated. Aortic and mitral valve prostheses. The coronary arteries show severe calcifications. Pacemaker. Aorta: Thoracic aorta non-dilated. Severe atherosclerotic changes. Lymph nodes: No enlarged lymph nodes. Bones: Degenerative changes are seen. No evidence of compression fracture. Multiple old bilateral rib fractures. Sternal wires. Upper abdomen: Unremarkable. Soft tissues: Unremarkable. IMPRESSION: No acute abnormality. Emphysematous changes greater in the upper lobes. Apical scarring. No suspicious masses or nodules. RADIATION DOSE DELIVERED: Total DLP Total DLP DATA REPOSITORY: All CT scans at this facility are submitted to the National Radiology Data Registry (NRDR) Dose Index Registry (DIR) with the [employer] (ACR). RADIATION OPTIMIZATION: All CT scans at this facility use at least one of these dose optimization techniques: automated exposure control; mA and/or kV adjustment per patient size (includes targeted exams where dose is matched to clinical indication); or iterative reconstruction.
== END 2025-06-25 15:13 ==
LOC: DI 14:53
PROVIDERS: PCP Family Medicine; Visit Provider Internal Medicine Critical Care Medicine
DX: R06.02 Shortness of breath (principal); R91.1 Solitary pulmonary nodule
CPT/HCPCS: 71250

== ENCOUNTER → 2025-07-16 12:57 | Outpatient (BNVA) | payer MEDICARE, BC, SELFPAY | PROVIDERS: PCP Family Medicine; Referring Provider Family Medicine; Visit Provider Student in an Organized Health Care Education/Training Program | DX: M75.102 Unspecified rotator cuff tear or rupture of left shoulder, not specified as traumatic (principal); M12.812 Other specific arthropathies, not elsewhere classified, left shoulder | CPT/HCPCS: 20610; J1010 ==

== ENCOUNTER → 2025-07-17 13:29 | Outpatient (BNVA) | payer MEDICARE, BC, SELFPAY | PROVIDERS: PCP Family Medicine; Referring Provider Family Medicine; Visit Provider Internal Medicine Pulmonary Disease | DX: J44.9 Chronic obstructive pulmonary disease, unspecified (principal); R91.1 Solitary pulmonary nodule; Z95.2 Presence of prosthetic heart valve; Z87.891 Personal history of nicotine dependence; Z23 Encounter for immunization | CPT/HCPCS: 90471; 90684; 99214 ==

== ENCOUNTER → 2025-09-11 11:29 | Outpatient (BNVA) | payer MEDICARE, BC, SELFPAY | PROVIDERS: PCP Family Medicine; Referring Provider Family Medicine; Visit Provider Internal Medicine Pulmonary Disease | DX: J44.9 Chronic obstructive pulmonary disease, unspecified (principal); R91.1 Solitary pulmonary nodule; J93.83 Other pneumothorax; J43.9 Emphysema, unspecified; Z87.891 Personal history of nicotine dependence | CPT/HCPCS: 99214 ==

== ENCOUNTER 2025-09-24 16:47 | Inpatient (IN) | payer MEDICARE, BC, SELFPAY ==
[2025-09-24] VITALS (20 sets, daily range): BP systolic 91–142; BP diastolic 52–94; PULSE 62–99; RESP 11–23; TEMP 37; O2SAT 92–98
--- NOTE | 2025-09-24 17:11 | W.ED.GENAD ---
Discharge Plan Disposition Patient Disposition: Admit to [facility] Condition: Stable Discharge Details Clinical Impression: COPD (chronic obstructive pulmonary disease), Pneumothorax, Trapped lung Primary Care Provider: Linda Mccray ED Provider: Fran Lares Home Meds and New Rx's Prescriptions: Continued warfarin [Coumadin] 10 MG tablet 0 - 1 tab PO DIRECTED Qty: 90 4RF Rx Instructions: DOSE BASED ON INR betamethasone dipropionate 0.05 % cream 1 applic topical PRN PRN sildenafil 100 mg tablet 100 mg PO DAILY PRN Rx Instructions: administer 30 minutes to 4 hours before activity amoxicillin 500 mg capsule 2,000 mg PO ONCE PRN Rx Instructions: take four capsules by mouth1 hour prior to dental procedure diphenhydramine HCl 50 mg tablet See Rx Instructions PO DAILY PRN PRN Rx Instructions: 1-2 caps orally daily, as needed PRN; take 1-2 caps daily prn for anxiety fluticasone propionate 50 mcg/actuation spray,suspension 1 spray intranasal DAILY Rx Instructions: administer into each nostril clotrimazole 1 % cream 1 applic topical BID Rx Instructions: apply as directed Dayvigo 5 mg tablet 5 mg PO QHS PRN tamsulosin 0.4 mg capsule 0.4 mg PO DAILY Patient Comments: TAKE 1 CAPSULE BY MOUTH DAILY rosuvastatin 20 mg tablet 20 mg PO DAILY Trelegy Ellipta 200-62.5-25 mcg blister with device 1 inh INHALATION DAILY Patient Comments: INHALE 1 PUFF INTO THE LUNGS DAILY albuterol sulfate 90 mcg/actuation HFA aerosol inhaler 2 puff INHALATION Q4H PRN Patient Comments: INHALE 2 PUFFS INTO THE LUNGS EVERY 6 HOURS NEEDED FOR WHEEZING OR SHORTNESS OF BREATH OR DIFFICULT BREATHING Discharge Data Discharge Physician: Fran Lares [facility] General Date/Time Provider Initiated Documentation: 09/24/25 17:11. HPI Narrative: Patient who presents to the emergency department stating that for the last 2 weeks he been having some right sided thoracic pain worse when he breathes and increased shortness of breath. He states that he had a chest x-ray done 3 weeks ago which showed some lung nodules. 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 Yesterday he was called that he had a right small pneumothorax which prompted him to come to the emergency department today for evaluation. He reports mild shortness of breath and states that he had a left pneumothorax many years ago which he required a pleurodesis and that he has emphysema and bullous disease. Related Data Home Medications ?Medication ?Instructions ?Recorded ?Confirmed warfarin 10 mg tablet (Coumadin) 0 - 1 tab PO DIRECTED #90 tabs 03/30/18 09/24/25 betamethasone dipropionate 0.05 % 1 applic topical PRN PRN 04/14/21 09/24/25 topical cream tamsulosin 0.4 mg capsule 0.4 mg PO DAILY 12/11/21 09/24/25 sildenafil 100 mg tablet 100 mg PO DAILY PRN 01/17/23 09/24/25 albuterol sulfate 90 mcg/actuation 2 puff inhalation Q4H PRN 07/17/24 09/24/25 aerosol inhaler fluticasone fur. 200 mcg-umeclid 1 inh inhalation DAILY 07/17/24 09/24/25 62.5 mcg-vilant 25 mcg inhalat.powder (Trelegy Ellipta) rosuvastatin 20 mg tablet 20 mg PO DAILY 07/17/24 09/24/25 amoxicillin 500 mg capsule 2,000 mg PO ONCE PRN 05/23/25 09/24/25 clotrimazole 1 % topical cream 1 applic topical BID 05/23/25 09/24/25 diphenhydramine HCl 50 mg tablet See Rx Instructions PO DAILY PRN 05/23/25 09/24/25 PRN fluticasone propionate 50 1 spray intranasal DAILY 05/23/25 09/24/25 mcg/actuation nasal spray,suspension lemborexant 5 mg tablet (Dayvigo) 5 mg PO QHS PRN 07/17/25 09/24/25 Previous Rx's ?Medication ?Instructions ?Recorded warfarin 10 mg tablet (Coumadin) 0 - 1 tab PO DIRECTED #90 tabs 03/30/18 Allergies Allergy/AdvReac Type Severity Reaction Status Date / Time amiodarone Allergy Unknown Verified 09/24/25 16:57 General Stated Complaint: Chest/Rib YASMIN: 3 Review of Systems Narrative: Review of Systems: Constitutional: No fevers, chills, sweats Eye: No recent visual problems ENT: No ear pain, nasal congestion, sore throat Respiratory: No , cough Cardiovascular: No Chest pain, palpitations, syncope Gastrointestinal: No nausea, vomiting, diarrhea Genitourinary: No hematuria Pj/Lymph: Negative for bruising tendency, swollen lymph glands Endocrine: Negative for excessive thirst, excessive hunger Musculoskeletal: No back pain, neck pain, joint pain, muscle pain, decreased range of motion Integumentary: No rash, pruritus, abrasions Neurologic: Alert & oriented X 4 Psychiatric: No anxiety, depression Exam Narrative Exam Narrative: Exam; vitals signs as reported above normal Constitutional; In no acute distress, afebrile General: cooperative, healthy appearing, comfortable and no acute distress HEENT: Head: normal to inspection, no palpable skull fracture and normocephalic atraumatic Eyes: : appearance normal, both eyes and all related structures EOM intact bilaterally Pupils: PERRL : conjunctiva normal Direct ophthalmoscopy: normal light reflex, normal conjunctiva, normal visual acuity Ears: Normal TM, normal external canal Nose: normal no rhinorreha Neck no JVD, supple non tender Neck: normal visual inspection, full ROM and no lymphadenopathy Chest: normal inspection of the chest Respiratory : normal respiratory effort and able to speak in complete sentences decreased breath sounds in the bases Cardio Rate: regular rate, rhythm: regular rhythm normal heart sounds S1 and S2 no murmurs, gallops, or rubs GI : normal to inspection, normal bowel sounds, soft, non tender, non distended, no organomegaly Back/Spine/ no CVA tenderness Thoracic/Lumbar Spine: no tenderness or deformities Skin no rashes or lesions Neuro: patient alert oriented x 4 and no meningeal signs, Cranial Nerves: CN's II-XI intact bilaterally, Cognition: normal cognition, Speech: speech normal, Gait: normal gait, Depp tendon reflexes normal 2+ muscle strength 5/5 bilaterally Extremities, no edema, full range of motion, normal strength Course Vital Signs Vital signs: Vital Signs Temperature 37.0 C 09/24/25 16:49 Pulse 76 09/24/25 16:49 Respiratory Rate 16 09/24/25 16:49 Blood Pressure 135/70 09/24/25 16:49 Pulse Oximetry 98 09/24/25 16:49 Temperature 37.0 C 09/24/25 16:49 Temperature Source Temporal Artery Scan 09/24/25 16:49 Pulse 76 12/03/25 16:49 Respiratory Rate 16 09/24/25 16:49 Blood Pressure 135/70 09/24/25 16:49 Pulse Oximetry 98 09/24/25 16:49 Pain Level 2 09/24/25 16:49 Medical Decision Making MDM: Summary: Patient presents to the emergency department for he was told to come in for he had a small pneumothorax on the right which was confirmed by CT scan without contrast done here which shows more like a trapped lung with a bleb disease and questionable pneumothorax. PET scan done at [facility] shows some lung nodules that could be metastatic disease or primary lung cancer. Patient is not severely hypoxic but I consulted with surgery who at this time will consult but will not place a chest tube at this time for she describes that this is not required for it is more like a trapped lung but she recommends the patient be admitted and be evaluated by pulmonology tomorrow for further treatments of his lung disease. Patient is stable and not hypoxic Data Review Analysis All the data on this patient was reviewed by me including laboratory and imaging studies as well as bedside studies performed by me Independent review of Studies Imaging CT chest as described Lab: Labs are unremarkable Risk Stratification: Patient with bleb disease of the right lung nodules and questionable lung malignancy who has a trapped lung or small pneumothorax in the right lung Differential Diagnosis: 1. Trapped lung 2. Pneumothorax 3. Emphysema 4. Bleb disease 5. Consultants: Consulted with Shared disposition: Patient is disposition agrees to be admitted Impression: PFS All Active Problems Trapped lung (Acute) Pneumothorax (Acute) COPD (chronic obstructive pulmonary disease) (Chronic) Pulmonary nodule (Acute) COPD (chronic obstructive pulmonary disease) (Chronic) Left rotator cuff tear arthropathy (Acute) subacromial corticosteroid injection 02/07/23 Cardiac pacemaker in situ (Chronic) dual lead Medtronic - PG replacement 07/31/2020 Heart valve replaced (Chronic 11/30/12) Aortic/Mitral mechanical Hypertension (Chronic) AV block, complete (Acute) Hematoma, postoperative (Acute) Tension pneumothorax, spontaneous (Acute) Lung blebs (Acute) Pneumothorax on left (Acute) Persistent air leak (Acute) Encounter for medication administration (Acute) Elevated INR (Acute) Hematuria (Acute) Multiple rib fractures involving four or more ribs (Acute) Traumatic hemo-pneumothorax (Acute) Blunt trauma (Acute) Multiple fractures of ribs of left side (Acute) Persistent atrial fibrillation (Acute) persistent since 03/09/2021 after VATS for spontaneous pneumo anticoag with coumadin for mechanical valves No RVR - hx CHB with pacemaker Medical History Near syncope C. difficile colitis COVID-19 vaccine administered 12/15/20 01/19/21 Recurrent spontaneous pneumothorax 02/2021 pt. stated he had this permanently fixed where they affixed the lung to the chest wall so it would stop recurring Dizziness Unilateral inguinal hernia Primary malignant neoplasm of bladder Mitral valve regurgitation replaced-1998 History of coagulation defect Clostridium difficile colitis (09/20/16) Anticoagulated on warfarin AVR/MVR; goal 2.5-3.5 Multiple rib fractures Surgical History History of aortic valve replacement [id number] 1998 with metal valve Presence of other heart-valve replacement (11/30/12) Aortic/Mitral Tonsillectomy and adenoidectomy Pacemaker (~2009) HERNIA REPAIR (~2007) Appendectomy Family History Mother Personal history of malignant neoplasm LIVER Father Heart disease Sister No problems noted. Brother No problems noted. 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
--- NOTE | 2025-09-24 17:15 | DI.CT_ITS ---
Exam(s) CT CHEST WO EXAM: CT CHEST WO CLINICAL HISTORY: SOB. TECHNIQUE: Multi planar reconstructions were performed. CONTRAST MATERIAL: None COMPARISON: CT CT CHEST WO from 06/25/2025 FINDINGS: CHEST: LUNGS: Advanced COPD emphysematous findings both lung jay again noted. With extensive bullous change and lung apical scarring. There is a small-moderate size right pneumothorax which was not previously evident on 06/25/2025. There is also a new noncalcified spiculated nodule measuring 8-9 mm located in the posterior segment of the right upper lobe. There are few small surrounding satellite nodules in the posterior segment of the right upper lobe which are also not previously present. There is also a new 5 mm nodule in the right lung apex. There is 80 benign-appearing unchanged 4 millimeter nodule in the right middle lobe. Some scarring in the posterior basal segment of the right lower lobe is unchanged. There are no new significant focal left lung findings. No new findings in trachea and mainstem bronchi. There are no pleural effusions. MEDIASTINUM: There is no obvious hilar nor mediastinal adenopathy. Visualized thyroid unremarkable.No obvious axillary adenopathy CARDIAC: Sternotomy wires. Normal heart size. Bipolar left subclavian pacemaker with lead tips in RA in RV. There are prosthetic aortic and mitral valves again noted. Coronary artery calcification. No pericardial effusion.Ascending thoracic aorta is partially calcified. Its diameter is upper normal. VISUALIZED UPPER ABDOMEN:No adrenal masses nor splenomegaly. No ascites. OSSEOUS: Sternotomy wires. Multiple healed bilateral rib fractures. No acute fractures evident. No compression fractures.. IMPRESSION: 1. Compared to the prior CT scan of 06/24/2025 there are again noted severe emphysematous changes and there is now a small right-sided pneumothorax. 2. There is a new 8-9 mm noncalcified spiculated nodule in the posterior segment of the right upper lobe with smaller adjacent satellite nodules which all are new when compared to the most recent CT scan of June 2025. this requires close follow-up to rule out malignancy although infectious/inflammatory nodules may also be consideration. There are no new findings in the opposite-left lung. There is no intrathoracic adenopathy. 3. Sternotomy wires and bipolar pacemaker and prosthetic mitral and aortic valves are again noted. There is no evidence of pulmonary edema. Preliminary virtual Radiology report was reviewed. RADIATION DOSE DELIVERED: 193.52mGy.cm Total DLP DATA REPOSITORY: All CT scans at this facility are submitted to the National Radiology Data Registry (NRDR) Dose Index Registry (DIR) with the [employer] (ACR). RADIATION OPTIMIZATION: All CT scans at this facility use at least one of these dose optimization techniques: automated exposure control; mA and/or kV adjustment per patient size (includes targeted exams where dose is matched to clinical indication); or iterative reconstruction.
--- NOTE | 2025-09-24 19:42 | DI.VRAD_ITS ---
Addendum created by Timbo Mosher MD on 09/24/2025 7:48:03 PM EST: This case was discussed personally with PRINCESS VALIENTE at 7:47 PM EST on 09/24/2025. There is also a 4 mm left lower lobe pulmonary nodule on image 106 of series 2. By report, the patient had a recent CT PET exam which revealed a right-sided pneumothorax and hypermetabolic pulmonary nodules. Initial report created on 09/24/2025 7:42:30 PM EST: PROCEDURE INFORMATION: Exam: CT Chest Without Contrast; Diagnostic Exam date and time: 09/24/2025 7:11 PM Age: 75 years old Clinical indication: Shortness of breath; SOB TECHNIQUE: Imaging protocol: Diagnostic computed tomography of the chest without contrast. 3D rendering (Not supervised by radiologist): MIP and/or 3D reconstructed images were created by the technologist. Radiation optimization: All CT scans at this facility use at least one of these dose optimization techniques: automated exposure control; mA and/or kV adjustment per patient size (includes targeted exams where dose is matched to clinical indication); or iterative reconstruction. COMPARISON: CT CHEST WO 06/25/2025 1:50 PM FINDINGS: Thyroid: Normal-sized thyroid gland. Lungs: Severe diffuse emphysema. Bullous change at the lung apices. Spiculated opacities at the lung apices with an appearance suspicious for scarring. 8 mm right upper lobe pulmonary nodule with smaller adjacent satellite nodules, image 69 of series 2, new since the comparison exam from June 25, 2025 platelike atelectasis. Pleural spaces: Small right-sided pneumothorax, best demonstrated posteromedial to the apex and at the anterior lung base. Small right pleural effusion in keeping with a hydropneumothorax or hemopneumothorax. No left-sided pleural effusion or pneumothorax. Heart: Normal-sized heart. Prosthetic aortic and mitral valves. Coronary artery calcification. Prior median sternotomy. Cardiac pacemaker implanted in the left anterior chest wall with leads in the right atrium and ventricle. Lymph nodes: Scattered mildly prominent mediastinal lymph nodes with a precarinal node measuring 1.2 cm x 1.6 cm on image 66 of series 2. Vasculature: No thoracic aortic aneurysm. Bones/joints: No acute fracture seen. Multiple old bilateral rib fractures spinal degenerative change with anterior osteophytes at multiple levels. Soft tissues: No gross soft tissue mass or fluid collection seen in the chest wall. IMPRESSION: 1. Severe diffuse emphysema with extensive bullous change and scarring at the lung apices. 2. Small right-sided pneumothorax with a small right-sided pleural effusion in keeping with a hydropneumothorax or hemopneumothorax. 3. 8 mm right upper lobe pulmonary nodule with smaller adjacent satellite nodules, new since the comparison exam from June 25, 2025. Infectious/inflammatory nodules could have this appearance; however, alternative pathology is not excluded. Clinical correlation and short interval follow-up are recommended. Dictated and Authenticated by: Timbo Mosher MD. Orderin Arnaud Peters MD
[2025-09-24 21:04] LABS: Abs Immature Grans 0.02 10^3/uL (0.0-0.06); HCT 34.4 % (40.0-50.0); HGB 11.5 g/dL (13.5-17.5); Immature Grans % 0.3 %; MCH 30.3 pg (27.0-33.0); MCHC 33.4 % (32.0-36.0); MCV 91 fL (80-95); MPV 10.2 fL (8.0-11.0); Platelet Count 179 10^3/uL (130-400); RBC 3.80 10^6/uL (4.36-5.78); RDW 13.4 % (11.8-14.1); RDW-SD 43.8 fL; WBC 6.41 10^3/uL (4.4-10.8)
[2025-09-24 21:30] LABS: ALT 25 U/L (10-49); AST 38 U/L (<34); Albumin 4.5 g/dL (3.2-5.0); Alkaline Phosphatase 60 U/L (46-116); Anion Gap 10.8 mmol/L (3-11); BUN 25 mg/dL (9-23); Bilirubin, Total 0.80 mg/dL (0.2-1.2); CO2 26.2 mmol/L (20.0-31.0); Calcium 9.1 mg/dL (8.3-10.6); Chloride 104 mmol/L (98-107); Glucose 88 mg/dL (74-106); Potassium 4.2 mmol/L (3.5-5.1); Sodium 141 mmol/L (136-145); Total Protein 6.8 g/dL (5.7-8.2)
[2025-09-24 22:34] LABS: INR 2.6 (0.9-1.1); Prothrombin Time 24.1 sec (9.1-11.1)
--- NOTE | 2025-09-24 23:41 | W.PM.HP.N ---
Date of service: 09/24/25 Time of Service: 23:41 Assessment and Plan Assessment and plan (1) Pneumothorax: Status: Acute Assessment and plan: Consults to general surgery as well as pulmonology has been placed. Would be surprised if this required chest tube. (2) Cardiac pacemaker in situ: Status: Chronic Assessment and plan: Noted (3) Heart valve replaced: Status: Chronic Assessment and plan: Patient has both aortic and mitral valve replacement. Patient's INR goal is between 2.5-3.5 per patient report. INR is currently 2.6 continue with his Coumadin (4) Hypertension: Status: Chronic Assessment and plan: Blood pressure is mildly elevated will need to be optimizing outpatient setting. (5) Elevated INR: Status: Acute Assessment and plan: INR is appropriate low or his goal. (6) Pulmonary nodule: Status: Acute Assessment and plan: Complete outpatient workup with his epoxy coatings installer. (7) Emphysema lung: Status: Acute Assessment and plan: Continue with his current inhalers including Trelegy and albuterol. The patient is taking sildenafil which is sometimes used for pulmonary hypertension. Will continue with this History of Present Illness History of Present Illness Chief Complaint: sob Narrative: Mr Neri is a 75-year-old gentleman with multiple medical problems including advanced COPD as well as an aortic valve as well as mitral valve replacement. Mr. Neri does have somewhat fractured care and that he sees a epoxy coatings installer in [facility], and Dr. Yo here in [place]. Apparently approximately 2 weeks ago he had PET scan done after a prior CT showed possible worsening nodules. That PET scan supposedly showed a pneumothorax and a recommendation was made to present to the ED. While he was in the ED a CT scan was done which showed severe emphysematous changes as well as a right sided pneumothorax. There is also mention of 8 to 9 mm noncalcified spiculated nodule in the right upper lobe which is sternotomy wires are present and pacemaker as well as valves are present. In regards to symptomology the patient states that he has been having worsening shortness of breath but not severe. He also complains of mild right-sided chest pain. Of note he has had a pleurodesis on the left side in the past. The patient no longer smokes. Patient is a full code. PFSH All Active Problems (Updated 09/24/25 @ 23:49 by Kota Anne MD) Emphysema lung (Acute) Pneumothorax (Acute) Trapped lung (Acute) Pneumothorax (Acute) COPD (chronic obstructive pulmonary disease) (Chronic) Pulmonary nodule (Acute) COPD (chronic obstructive pulmonary disease) (Chronic) Left rotator cuff tear arthropathy (Acute) subacromial corticosteroid injection 02/07/23 Cardiac pacemaker in situ (Chronic) dual lead Med[employer] - PG replacement 07/31/2020 Heart valve replaced (Chronic 11/30/12) Aortic/Mitral mechanical Hypertension (Chronic) AV block, complete (Acute) Hematoma, postoperative (Acute) Tension pneumothorax, spontaneous (Acute) Lung blebs (Acute) Pneumothorax on left (Acute) Persistent air leak (Acute) Encounter for medication administration (Acute) Elevated INR (Acute) Hematuria (Acute) Multiple rib fractures involving four or more ribs (Acute) Traumatic hemo-pneumothorax (Acute) Blunt trauma (Acute) Multiple fractures of ribs of left side (Acute) Persistent atrial fibrillation (Acute) persistent since 03/09/2021 after VATS for spontaneous pneumo anticoag with coumadin for mechanical valves No RVR - hx CHB with pacemaker Medical History Near syncope C. difficile colitis COVID-19 vaccine administered 12/15/20 01/19/21 Recurrent spontaneous pneumothorax 02/2021 pt. stated he had this permanently fixed where they affixed the lung to the chest wall so it would stop recurring Dizziness Unilateral inguinal hernia Primary malignant neoplasm of bladder Mitral valve regurgitation replaced-1998 History of coagulation defect Clostridium difficile colitis (09/20/16) Anticoagulated on warfarin AVR/MVR; goal 2.5-3.5 Multiple rib fractures Surgical History History of aortic valve replacement [id number] with metal valve Presence of other heart-valve replacement (11/30/12) Aortic/Mitral Tonsillectomy and adenoidectomy Pacemaker (~2009) HERNIA REPAIR (~2007) Appendectomy Family History Mother Personal history of malignant neoplasm LIVER Father Heart disease Sister No problems noted. Brother No problems noted. 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 [facility] Current gender identity: male Do you feel safe at home: Yes Do you feel safe in your relationship?: Yes Meds Allergies and Home Medications Allergies Allergy/AdvReac Type Severity Reaction Status Date / Time amiodarone Allergy Unknown Verified 09/24/25 16:57 Home Medications ?Medication ?Instructions ?Recorded ?Confirmed ?Type warfarin 10 mg tablet (Coumadin) 0 - 1 tab PO DIRECTED #90 tabs 03/30/18 09/24/25 Rx betamethasone dipropionate 0.05 % 1 applic topical PRN PRN 04/14/21 09/24/25 History topical cream tamsulosin 0.4 mg capsule 0.4 mg PO DAILY 12/11/21 09/24/25 History sildenafil 100 mg tablet 100 mg PO DAILY PRN 01/17/23 09/24/25 History albuterol sulfate 90 mcg/actuation 2 puff inhalation Q4H PRN 07/17/24 09/24/25 History aerosol inhaler fluticasone fur. 200 mcg-umeclid 1 inh inhalation DAILY 07/17/24 09/24/25 History 62.5 mcg-vilant 25 mcg inhalat.powder (Trelegy Ellipta) rosuvastatin 20 mg tablet 20 mg PO DAILY 07/17/24 09/24/25 History amoxicillin 500 mg capsule 2,000 mg PO ONCE PRN 05/23/25 09/24/25 History clotrimazole 1 % topical cream 1 applic topical BID 05/23/25 09/24/25 History diphenhydramine HCl 50 mg tablet See Rx Instructions PO DAILY PRN 05/23/25 09/24/25 History PRN fluticasone propionate 50 1 spray intranasal DAILY 05/23/25 09/24/25 History mcg/actuation nasal spray,suspension lemborexant 5 mg tablet (Dayvigo) 5 mg PO QHS PRN 07/17/25 09/24/25 History Exam Narrative Exam Narrative: HEENT normocephalic atraumatic mucous membranes moist Neck no lymphadenopathy no JVD no thyromegaly Cardiovascular opening click, occasional dysrhythmia Lungs hyperresonant bilateral wheeze with expiration speaking in complete sentences Abdomen scaphoid Extremities no sinus clubbing or edema General Decreased muscle mass throughout this Results Labs 09/24/25 20:57 09/24/25 20:57 Labs: Laboratory Results - last 24 hr 09/24/25 09/24/25 20:57 22:10 WBC 6.41 RBC 3.80 L Hgb 11.5 L Hct 34.4 L MCV 91 MCH 30.3 MCHC 33.4 RDW 13.4 Plt Count 179 MPV 10.2 Immature Gran % 0.3 Neutrophils % 68.4 Lymphocytes % 15.6 Monocytes % 9.0 Eosinophils % 5.6 Basophils % 1.1 Nucleated RBC % 0.0 Absolute Neutrophils 4.38 Absolute Lymphocytes 1.00 L Absolute Monocytes 0.58 Absolute Eosinophils 0.36 Absolute Basophils 0.07 PT 24.1 H INR 2.6 H Sodium 141 Potassium 4.2 Chloride 104 Carbon Dioxide 26.2 Anion Gap 10.8 BUN 25 H Creatinine 0.70 L Est GFR (CKD-EPI 2020) 109.51 Glucose 88 Calcium 9.1 Total Bilirubin 0.80 AST 38 H ALT 25 Alkaline Phosphatase 60 Total Protein 6.8 Albumin 4.5 Last Vital Signs Temp 37.0 C 09/24/25 16:49 Pulse 99 H 09/24/25 19:16 Resp 21 09/24/25 18:50 BP 137/52 L 09/24/25 19:01 Pulse Ox 92 09/24/25 19:16 VTE Prohylaxis Risk Level: Moderate/High Risk Contraindications: None Prophylaxis: Pharmacologic Time Spent Time spent with Patient: 55-74 minutes Time was spent: preparing to see the patient(eg.review tests), obtaining and/or reviewing separately otained hiistory, ordering medications,tests, procedures, referring, communicating with other health childcare center director, indepentently interpreting results, counseling the patient and care coordination
[2025-09-25] VITALS (9 sets, daily range): BP systolic 84–107; BP diastolic 41–63; PULSE 70–78; RESP 15–17; TEMP 35.9–36.8; O2SAT 96–99
--- NOTE | 2025-09-25 02:15 | W.PC.ACHO ---
Registration Status: ADM IN Primary Language: Preferred Language: Greek ED Information & Data Chief Complaint Chest/Rib 09/24/25 22:30 Triage Note Pt arrives per torres stating 09/24/25 16:49 that he was called by his doctor and told that he has a pneumothorax on his right lung after having testing done last Monday. Pt states he may have a little bit harder time breathing, but has COPD and has chronic anxiety. 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 Medical / Surgical History (Last Reviewed 09/24/25 @ 22:26 by Fran Lares MD) Near syncope C. difficile colitis COVID-19 vaccine administered Recurrent spontaneous pneumothorax Dizziness Unilateral inguinal hernia Primary malignant neoplasm of bladder Mitral valve regurgitation History of coagulation defect Clostridium difficile colitis (09/20/16) Anticoagulated on warfarin Multiple rib fractures (Last Reviewed 09/24/25 @ 22:26 by Fran Lares MD) History of aortic valve replacement Presence of other heart-valve replacement (11/30/12) Tonsillectomy and adenoidectomy Pacemaker (~2009) HERNIA REPAIR (~2007) Appendectomy Most Recent Vital Signs Temperature 36.2 C L 09/25/25 00:57 Temperature Source Tympanic 09/25/25 00:43 Pulse 72 09/25/25 00:57 Pulse Rhythm Regular 09/25/25 00:57 Pulse 70 09/24/25 19:01 Respiratory Rate 16 09/25/25 00:57 Respiratory Effort Normal 09/25/25 00:57 Respiratory Depth Normal 09/25/25 00:57 Respiratory Pattern Normal 09/25/25 00:57 Blood Pressure 84/63 L 09/25/25 00:57 Blood Pressure Mean 60 09/25/25 00:43 Pulse Oximetry 96 09/25/25 00:57 Oxygen Delivery Method Room Air 09/25/25 00:57 Oxygen Flow Rate 0 09/25/25 00:57 Pain Level 0 09/25/25 00:57 Allergies amiodarone Allergy (Verified 09/24/25 16:57) Unknown a lot of wierd lung things happening Precautions Isolation Standard precaution 09/24/25 16:55 IV IV Catheter Type [Right Peripheral IV Forearm] IV Catheter Gauge [Right 18 Forearm] Diet Orders Category Date Time Status Regular/Normal [DIET] Nutrition 09/25/25 Breakfast Active Diagnostics 09/25/25 09/24/25 09/24/25 Range/Units 05:35 22:10 20:57 WBC Pending 6.41 (4.4-10.8) 10^3/uL RBC Pending 3.80 L (4.36-5.78) 10^6/uL Hgb Pending 11.5 L (13.5-17.5) g/dL Hct Pending 34.4 L (40.0-50.0) % MCV Pending 91 (80-95) fL MCH Pending 30.3 (27.0-33.0) pg MCHC Pending 33.4 (32.0-36.0) % RDW Pending 13.4 (11.8-14.1) % Plt Count Pending 179 (130-400) 10^3/uL MPV Pending 10.2 (8.0-11.0) fL Immature Gran % Pending 0.3 % Neutrophils % Pending 68.4 % Lymphocytes % Pending 15.6 % Monocytes % Pending 9.0 % Eosinophils % Pending 5.6 % Basophils % Pending 1.1 % Nucleated RBC % 0.0 (0.0-0.3) % Absolute Neutrophils Pending 4.38 (1.2-6.7) 10^3/uL Absolute Lymphocytes Pending 1.00 L (1.2-3.4) 10^3/uL Absolute Monocytes Pending 0.58 (0.1-0.8) 10^3/uL Absolute Eosinophils Pending 0.36 (0.0-0.7) 10^3/uL Absolute Basophils Pending 0.07 (0.0-0.2) 10^3/uL PT 24.1 H (9.1-11.1) sec INR 2.6 H (0.9-1.1) Sodium Pending 141 (136-145) mmol/L Potassium Pending 4.2 (3.5-5.1) mmol/L Chloride Pending 104 (98-107) mmol/L Carbon Dioxide Pending 26.2 (20.0-31.0) mmol/L Anion Gap Pending 10.8 (3-11) mmol/L BUN Pending 25 H (9-23) mg/dL Creatinine Pending 0.70 L (0.73-1.18) mg/dL Est GFR (CKD-EPI 2020) Pending 109.51 (mL/min/1.73m2) Glucose Pending 88 (74-106) mg/dL Calcium Pending 9.1 (8.3-10.6) mg/dL Total Bilirubin Pending 0.80 (0.2-1.2) mg/dL AST Pending 38 H (<34) U/L ALT Pending 25 (10-49) U/L Alkaline Phosphatase Pending 60 (46-116) U/L Total Protein Pending 6.8 (5.7-8.2) g/dL Albumin Pending 4.5 (3.2-5.0) g/dL Intake and Output - 24 Hour Total 09/24/25 16:47 thru 09/25/25 00:57 Weight 64.4 kg Falls Risk Assessment History of Falls No History 09/25/25 00:57 Contributing Factors No Factors 09/25/25 00:57 Ambulatory Aids Independent 09/25/25 00:57 Tubes/Lines None 09/25/25 00:57 Gait Evaluation No gait disturbance 09/25/25 00:57 Cognition No cognitive impairment 09/25/25 00:57 Fall Total Score 0 09/25/25 00:57 Level of Risk Standard/Low Risk 09/25/25 00:57 Problems (Last Reviewed 09/24/25 @ 22:26 by Fran Lares MD) Emphysema lung (Acute) Pneumothorax (Acute) Pulmonary nodule (Acute) Cardiac pacemaker in situ (Chronic) Heart valve replaced (Chronic 11/30/12) Hypertension (Chronic) Elevated INR (Acute) Attestation Statement: By documenting the first initial, last name, and credentials of the reporting nurse below, both parties acknowledge that all relevant information regarding the patient handoff has been communicated, and that all questions have been addressed to ensure continuity and safety of care. Additional Patient Information/Comments: pt had PET scan on Sep 14, get called yesterday from him MD to go to ER for possible pneumothorax, CT showed small 8-9mm module on RML, pt is AOx4, on RA, VS stable, Pulmonology consult tomorrow. Report Received From: Kellen JIN
[2025-09-25] MEDS: Warfarin 5 MG TAB 10 MG PO ×2 (05:26→20:06)
[2025-09-25 06:37] LABS: Abs Immature Grans 0.01 10^3/uL (0.0-0.06); HCT 32.5 % (40.0-50.0); HGB 10.9 g/dL (13.5-17.5); Immature Grans % 0.2 %; MCH 30.7 pg (27.0-33.0); MCHC 33.5 % (32.0-36.0); MCV 92 fL (80-95); MPV 11.0 fL (8.0-11.0); Platelet Count 172 10^3/uL (130-400); RBC 3.55 10^6/uL (4.36-5.78); RDW 13.2 % (11.8-14.1); RDW-SD 44.6 fL; WBC 4.20 10^3/uL (4.4-10.8)
[2025-09-25 07:13] LABS: ALT 19 U/L (10-49); AST 30 U/L (<34); Albumin 3.8 g/dL (3.2-5.0); Alkaline Phosphatase 51 U/L (46-116); Anion Gap 9.1 mmol/L (3-11); BUN 22 mg/dL (9-23); Bilirubin, Total 0.60 mg/dL (0.2-1.2); CO2 27.9 mmol/L (20.0-31.0); Calcium 8.6 mg/dL (8.3-10.6); Chloride 106 mmol/L (98-107); Glucose 58 mg/dL (74-106); Potassium 4.2 mmol/L (3.5-5.1); Sodium 143 mmol/L (136-145); Total Protein 6.0 g/dL (5.7-8.2)
--- NOTE | 2025-09-25 07:54 | PUCON_ITS ---
General Date Of Service Date of service: 09/25/25 Time of Service: 08:00 Reason for Consult: Pneumothorax Recommendations: Assessment: 1. Right pneumothorax - small, posterior PTX noted on CT chest imaging - unchanged from PET-CT 2 weeks ago. Asymptomatic 2. Asthma with COPD - not in exacerbation - prior spirometry showed mild obstruction. Repeat testing in 05/2025 showed no obstructive lung disease. 3. Hx recurrent left pneumothorax - s/p mechanical pleurodesis 4. Pulmonary nodules - multiple new nodules (< 1 cm in size) on CT chest in 09/2025. Largest was a 0.8 cm posterior RUL nodule with smaller adjacent nodules. Not present on CT chest in 06/2025. Outside PET-CT at [facility] did show significant uptake in these nodules. Etiology is unclear, but given that they were not present on CT in 06/2025, infectious/inflammatory etiology is possible. Cannot rule out malignancy. No evidence of extrathoracic malignancy noted on outside PET-CT in 08/2025. Plan: - his pneumothorax is quite small and has not increased in size over a 2 week period. He is relatively asymptomatic, so does not need chest tube placement at this time. Will place on 4 L O2 to help with resorption - will have him follow up with CTS after discharge to consider right pleurodesis. He has severe bullous emphysema and is high risk for recurrence on the right - will plan to repeat CT chest in 2-3 months to re-evaluate the new pulmonary nodules - check PSA level - start doxycycline 100 mg BID for bronchitis / cough. Plan for 5 day course - continue ICS/LABA/LAMA inhalers. Resume Trelegy 200 daily and PRN albuterol upon discharge - CXR in the AM. If no significant pneumothorax is seen, can likely discharge with close follow up. Discussed with Dr. Fernández Assessment and Plan Assessment and plan (1) Pneumothorax: Status: Acute (2) COPD (chronic obstructive pulmonary disease): Status: Chronic (3) Pulmonary nodule: Status: Acute (4) Emphysema lung: Status: Acute History of Present Illness Narrative: Patient is a 75 yo with a history of COPD, left pneumothorax (s/p pleuresis 2018), and aortic/mitral mechanical valve placement, who was admitted on 09/24 for right pneumothorax. He had a PET-CT completed on 09/15/25 at [facility], which showed a small right, posterior, apical pneumothorax. Multiple PET-avid nodules were also noted, largest measuring ~0.8 cm. No concerning uptake was noted outside of the thorax. CT chest on admission at [facility] showed multiple pulmonary nodules, similar to his PET-CT. Looking back, these were new findings compared to his prior CT chest in 06/2025. He has had increased dyspnea and cough over the past few weeks. Denied chest pain, fevers, hemoptysis. He is currently using Trelegy 200 daily and PRN albuterol for COPD management. Last exacerbation was in 04/2025. Currently on warfarin for mitral/aortic valve replacement. Pleurodesis was completed on the left in 2019 for recurrent left pneumothorax. ROS: 10 pt ROS negative except as above Smoking history: smoked 1 ppd x 20 years. 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 Pets: none TB exposures: none PFSH All Active Problems (Updated 09/24/25 @ 23:49 by Kota Anne MD) Emphysema lung (Acute) Pneumothorax (Acute) Trapped lung (Acute) Pneumothorax (Acute) COPD (chronic obstructive pulmonary disease) (Chronic) Pulmonary nodule (Acute) COPD (chronic obstructive pulmonary disease) (Chronic) Left rotator cuff tear arthropathy (Acute) subacromial corticosteroid injection 02/07/23 Cardiac pacemaker in situ (Chronic) dual lead Medtronic - PG replacement 07/31/2020 Heart valve replaced (Chronic 11/30/12) Aortic/Mitral mechanical Hypertension (Chronic) AV block, complete (Acute) Hematoma, postoperative (Acute) Tension pneumothorax, spontaneous (Acute) Lung blebs (Acute) Pneumothorax on left (Acute) Persistent air leak (Acute) Encounter for medication administration (Acute) Elevated INR (Acute) Hematuria (Acute) Multiple rib fractures involving four or more ribs (Acute) Traumatic hemo-pneumothorax (Acute) Blunt trauma (Acute) Multiple fractures of ribs of left side (Acute) Persistent atrial fibrillation (Acute) persistent since 03/09/2021 after VATS for spontaneous pneumo anticoag with coumadin for mechanical valves No RVR - hx CHB with pacemaker Medical History Near syncope C. difficile colitis COVID-19 vaccine administered 12/15/20 01/19/21 Recurrent spontaneous pneumothorax 02/2021 pt. stated he had this permanently fixed where they affixed the lung to the chest wall so it would stop recurring Dizziness Unilateral inguinal hernia Primary malignant neoplasm of bladder Mitral valve regurgitation replaced-1998 History of coagulation defect Clostridium difficile colitis (09/20/16) Anticoagulated on warfarin AVR/MVR; goal 2.5-3.5 Multiple rib fractures Surgical History History of aortic valve replacement [id number] 1998 with metal valve Presence of other heart-valve replacement (11/30/12) Aortic/Mitral Tonsillectomy and adenoidectomy Pacemaker (~2009) HERNIA REPAIR (~2007) Appendectomy Family History Mother Personal history of malignant neoplasm LIVER Father Heart disease Sister No problems noted. Brother No problems noted. Social History Smoking/Tobacco Use Status: Former Tobacco Use Quit Date: 10/23/84 Smoking risk assessment performed?: Yes Alcohol Intake: never Drug use: Never Substance use type: does not use Housing: house current occupation: formerly worked in [employer] in [facility] Current gender identity: male Do you feel safe at home: Yes Do you feel safe in your relationship?: Yes Visit Medication and Allergies Active Medications Generic Name Dose Route Start Last Admin Trade Name Freq PRN Reason Stop Dose Admin Acetaminophen 325 - 650 mg 09/25/25 01:00 Acetaminophen 325 Mg Tab PO Q4H PRN PRN Al Hydrox/Mg Hydrox/Simethicone 30 ml 09/24/25 23:37 Mylanta Suspension 30 Ml Cup PO Q2H PRN PRN Albuterol Sulfate 2 puff 09/25/25 00:54 Albuterol Hfa 8 Gm 60 Puff Inh IH Q4H PRN PRN Betamethasone Dipropionate gm 09/25/25 00:54 Betamethasone Dip. 0.05% Cr 15 Gm Tube TP PRN PRN Budesonide/Formoterol Fumarate 2 puff 09/25/25 08:30 Budesonide/Formoterol 160/4.5 6 Gm 60 Puff Inh IH BID SOPHIE Clotrimazole gm 09/25/25 08:30 Clotrimazole 1% 15 Gm Tube TP BID SOPHIE Diphenhydramine HCl 50 - 100 mg 09/25/25 01:13 Diphenhydramine 25 Mg Cap PO DAILY PRN PRN Anxiety Docusate Sodium 100 mg 09/24/25 23:37 Docusate Sodium 100 Mg Cap PO TID PRN PRN Fluticasone Propionate 0 gm 09/25/25 08:30 Fluticasone Nasal [place] 16 Gm Btl NS DAILY [facility] Magnesium Hydroxide 30 ml 09/24/25 23:37 Milk Of Magnesia 30 Ml Cup PO DAILY PRN PRN Non-Formulary Medication 5 mg 09/25/25 00:54 Lemborexant [Dayvigo] PO QHS PRN Non-Formulary Medication 100 mg 09/25/25 00:54 Sildenafil PO DAILY PRN Polyethylene Glycol 17 gm 09/24/25 23:37 Polyethylene Glycol 3350 17 Gm Packet PO DAILY PRN PRN Constipation Rosuvastatin Calcium 20 mg 09/25/25 20:00 Rosuvastatin 20 Mg Tab PO QPM [facility] Tamsulosin HCl 0.4 mg 09/25/25 08:30 Tamsulosin 0.4 Mg Capcr PO DAILY [facility] Tiotropium [place] 2 puff 09/25/25 08:30 Tiotropium Bradford-Respimat 10 Puff Inh IH DAILY [facility] Warfarin Sodium 10 mg 09/25/25 01:45 09/25/25 05:26 Warfarin 5 Mg Tab PO 10 mg QPM [facility] Administration Allergies amiodarone Allergy (Verified 09/24/25 16:57) Unknown Exam Narrative Exam Narrative: General: alert, no acute distress Head: normocephalic ENT: no stridor, trachea midline CV: normal rate, regular rhythm Respiratory: no wheezing, no crackles, no rhonchi, no prolonged expiration GI: abd soft, non-tender, non-distended Skin: no rashes Extremities: no edema, no digital clubbing Psych: normal affect Results Last Vital Signs Temp 36.1 C L 09/25/25 07:49 Pulse 71 09/25/25 07:49 Resp 17 09/25/25 07:49 BP 104/52 L 09/25/25 07:49 Pulse Ox 97 09/25/25 07:49 Labs 09/25/25 05:18 09/25/25 05:18 Labs: Laboratory Results - last 24 hr 09/24/25 09/24/25 09/25/25 20:57 22:10 05:18 WBC 6.41 4.20 L RBC 3.80 L 3.55 L Hgb 11.5 L 10.9 L Hct 34.4 L 32.5 L MCV 91 92 MCH 30.3 30.7 MCHC 33.4 33.5 RDW 13.4 13.2 Plt Count 179 172 MPV 10.2 11.0 Immature Gran % 0.3 0.2 Neutrophils % 68.4 56.9 Lymphocytes % 15.6 19.0 Monocytes % 9.0 14.3 Eosinophils % 5.6 7.9 Basophils % 1.1 1.7 Nucleated RBC % 0.0 0.0 Absolute Neutrophils 4.38 2.39 Absolute Lymphocytes 1.00 L 0.80 L Absolute Monocytes 0.58 0.60 Absolute Eosinophils 0.36 0.33 Absolute Basophils 0.07 0.07 PT 24.1 H INR 2.6 H Sodium 141 143 Potassium 4.2 4.2 Chloride 104 106 Carbon Dioxide 26.2 27.9 Anion Gap 10.8 9.1 BUN 25 H 22 Creatinine 0.70 L 0.70 L Est GFR (CKD-EPI 2020) 109.51 109.51 Glucose 88 58 L Calcium 9.1 8.6 Total Bilirubin 0.80 0.60 AST 38 H 30 ALT 25 19 Alkaline Phosphatase 60 51 Total Protein 6.8 6.0 Albumin [address] scan - chest: report reviewed and image reviewed Imaging Studies: CT chest 09/24/25: personally reviewed FINDINGS: CHEST: LUNGS: Advanced COPD emphysematous findings both lung jay again noted. With extensive bullous change and lung apical scarring. There is a small-moderate size right pneumothorax which was not previously evident on 06/25/2025. There is also a new noncalcified spiculated nodule measuring 8-9 mm located in the posterior segment of the right upper lobe. There are few small surrounding satellite nodules in the posterior segment of the right upper lobe which are also not previously present. There is also a new 5 mm nodule in the right lung apex. There is 80 benign-appearing unchanged 4 millimeter nodule in the right middle lobe. Some scarring in the posterior basal segment of the right lower lobe is unchanged. There are no new significant focal left lung findings. No new findings in trachea and mainstem bronchi. There are no pleural effusions. MEDIASTINUM: There is no obvious hilar nor mediastinal adenopathy. Visualized thyroid unremarkable.No obvious axillary adenopathy CARDIAC: Sternotomy wires. Normal heart size. Bipolar left subclavian pacemaker with lead tips in RA in RV. There are prosthetic aortic and mitral valves again noted. Coronary artery calcification. No pericardial effusion.Ascending thoracic aorta is partially calcified. Its diameter is upper normal. VISUALIZED UPPER ABDOMEN:No adrenal masses nor splenomegaly. No ascites. OSSEOUS: Sternotomy wires. Multiple healed bilateral rib fractures. No acute fractures evident. No compression fractures.. IMPRESSION: 1. Compared to the prior CT scan of 06/24/2025 there are again noted severe emphysematous changes and there is now a small right-sided pneumothorax. 2. There is a new 8-9 mm noncalcified spiculated nodule in the posterior segment of the right upper lobe with smaller adjacent satellite nodules which all are new when compared to the most recent CT scan of June 2025. this requires close follow-up to rule out malignancy although infectious/inflammatory nodules may also be consideration. There are no new findings in the opposite-left lung. There is no intrathoracic adenopathy. 3. Sternotomy wires and bipolar pacemaker and prosthetic mitral and aortic valves are again noted. There is no evidence of pulmonary edema. PFT: personally reviewed 06/2017: ratio 64, FEV1 102, FVC 118, TLC 101, DLCO 56, inadequate BD response 05/2025: ratio 87, FEV1 121, FVC 106, TLC 90, DLCO 55, inadequate BD response
[2025-09-25] MEDS: Tamsulosin 0.4 MG CAPCR PO (08:13)
[2025-09-25] MEDS: Tiotropium Bromide-Respimat 10 PUFF INH 2 PUFF IH (08:32)
[2025-09-25] MEDS: Budesonide/Formoterol 160/4.5 6 GM 60 PUFF INH IH ×2 (08:32→19:56)
--- NOTE | 2025-09-25 09:17 | PDOC.CMIN ---
Date of service: 09/25/25 Time of Service: 09:17 Care Management Initial Assmt Initial Assessment Reason for Hospitalization: pneumothorax Functional Status/Living Situation Patient Presentation: Dominic, as [place] prefers to be called, was sitting up in a chair when met with him. He was polite but a bit reserved at first. As the conversation continued he became more engaged however. Dominic was admitted with a pneumothorax. He reported that he really did not have any pain, just some mild shortness of breath. He is wearing nasal oxygen right now but it is primarily to aide with lung expansion.. The pneumothorax was identified when he had a PET scan about 2 weeks ago to follow up on a lung nodule. Dominic lives alone in a 2 family home (renovated [employer]in [facility]. He does not have any family in the area but does have close friends who are supportive. Dominic does not receive any community services and is independnet at baseline. 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 Town of Residence: [facility] Resides with: Alone Significant Other/Family: Local Natural Supports: friends Employment Status: Retired Instrumental Activities of Daily Living (ADLs): Independent Medications Medication Management: No Issues/Barriers identified Physical Functioning/Mobility Assistive Device: none Advance Directives Advance Directives: Do you have an Advance Directive: Y 01/15/25, 14:15 AD On File at [facility]: Y 01/15/25, 14:15 Date Asked 12/10/20 06/19/25, 11:36 AD Date Reviewed 06/15/25 07/17/25, 13:28 COLST On File at [facility] No 01/15/25, 14:15 COLST Date Scanned Code Status Resuscitation Status Full Code Insurance Coverage/Financial Issues Insurance: Medicare / Care Team Visit Care Team Role Provider Type Tirso Fernández MD [facility] STAFF PHYSICIAN Linda Mccray Primary Care Provider NON-[facility] STAFF PHYSICIAN Elmer Thornton MD Other Providers [facility] STAFF PHYSICIAN Fran Lares MD Emergency Provider [facility] STAFF PHYSICIAN Kota Anne MD Admit Provider [facility] STAFF PHYSICIAN Attending Provider Other Providers Discharge Potential Discharge Needs: PCP F/U Appt Anticipated Barriers to Discharge: None Identified Patient/Family Education Needs: Review discharge instructions, discuss Ask Me Three Transportation: Private vehicle Plan: Anticipate Dominic will be discharged home with no new services when medically cleared. He will follow up with his PCP and plan of care and transport with a friend or family member. CM will follow and continue to assess for discharge concerns. Social Determinants of Health Screening Social Determinants of health last assessed in clinic: 09/25/25 Will the Patient Participate in the Screening?: Yes Do you worry about having a steady place to live?: no Problems where you live: no known problems In the past 12 months, have you had to go without electric, gas, oil or water in your home?: no 1. Within the past 12 months, we worried whether our food would run out before we got money to buy more.: Never true 2. Within the past 12 months, the food we bought just didn't last and we didn't have money to get more.: Never true Has lack of transportation kept you from medical appointments or from doing things needed for daily living?: no Has anyone in your life made you feel unsafe or unsupported?: no How hard is it for you to pay for the very basics like food, housing, medical care, and heating? Would you say it is:: Not hard at all Do you want help finding or keeping work or a job?: I do not need or want help If for any reason you need help with day-to-day activities such as bathing, preparing meals, shopping, managing finances, etc., do you get the help you need?: I don?t need any help How often do you feel lonely or isolated from those around you?: Never Do you speak a language other than [place] at home?: No Does the patient want assistance with any of the above?: No PFSH All Active Problems (Updated 09/24/25 @ 23:49 by Kota Anne MD) Emphysema lung (Acute) Pneumothorax (Acute) Trapped lung (Acute) Pneumothorax (Acute) COPD (chronic obstructive pulmonary disease) (Chronic) Pulmonary nodule (Acute) COPD (chronic obstructive pulmonary disease) (Chronic) Left rotator cuff tear arthropathy (Acute) subacromial corticosteroid injection 02/07/23 Cardiac pacemaker in situ (Chronic) dual lead Medtronic - PG replacement 07/31/2020 Heart valve replaced (Chronic 11/30/12) Aortic/Mitral mechanical Hypertension (Chronic) AV block, complete (Acute) Hematoma, postoperative (Acute) Tension pneumothorax, spontaneous (Acute) Lung blebs (Acute) Pneumothorax on left (Acute) Persistent air leak (Acute) Encounter for medication administration (Acute) Elevated INR (Acute) Hematuria (Acute) Multiple rib fractures involving four or more ribs (Acute) Traumatic hemo-pneumothorax (Acute) Blunt trauma (Acute) Multiple fractures of ribs of left side (Acute) Persistent atrial fibrillation (Acute) persistent since 03/09/2021 after VATS for spontaneous pneumo anticoag with coumadin for mechanical valves No RVR - hx CHB with pacemaker Medical History Near syncope C. difficile colitis COVID-19 vaccine administered 12/15/20 01/19/21 Recurrent spontaneous pneumothorax 02/2021 pt. stated he had this permanently fixed where they affixed the lung to the chest wall so it would stop recurring Dizziness Unilateral inguinal hernia Primary malignant neoplasm of bladder Mitral valve regurgitation replaced-1998 History of coagulation defect Clostridium difficile colitis (09/20/16) Anticoagulated on warfarin AVR/MVR; goal 2.5-3.5 Multiple rib fractures Surgical History History of aortic valve replacement [id number] 1998 with metal valve Presence of other heart-valve replacement (11/30/12) Aortic/Mitral Tonsillectomy and adenoidectomy Pacemaker (~2009) HERNIA REPAIR (~2007) Appendectomy Family History Mother Personal history of malignant neoplasm LIVER Father Heart disease Sister No problems noted. Brother No problems noted. 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
--- NOTE | 2025-09-25 13:49 | W.PM.PROGNOT ---
Date of Service Date of service: 09/25/25 Time of Service: 13:49 Assessment and Plan Assessment and plan (1) Pneumothorax: Status: Acute Assessment and plan: Discussed with Dr. Thornton. PTX was present on PET scan 2 weeks ago and not worse. Will treat with 4L oxygen to help resolve repeat CXR in AM, okay to d/c as long as not getting worse. (2) Heart valve replaced: Status: Chronic Assessment and plan: Patient has both aortic and mitral valve replacement. Patient's INR goal is between 2.5-3.5 per patient report. INR is currently 2.6 on warfarin, continue to follow. (3) Hypertension: Status: Chronic Assessment and plan: Blood pressure controlled with outpatient meds (4) Pulmonary nodule: Status: Acute Assessment and plan: Has ongoing work up with chart clerk as outpatient. With new scattered nodules, treating with doxycycline for bronchitis to see if this helps. (5) Emphysema lung: Status: Acute Assessment and plan: Continue with his current inhalers including Trelegy and albuterol. Discharge Planning Discharge Planning: home 09/26 if no progression of PTX on follow up CXR Subjective Subjective Patient reports: tolerating a regular diet and voiding w/o difficulty; denies diarrhea, vomiting, shortness of breath or fever Interval history since last seen: Feeling better. A little cough. Not feeling SOB at rest, chest doesnt' hurt. Exam Narrative Exam Narrative: General: alert, no acute distress. thin HEENT: no stridor, trachea midline CV: RRR, no murmur Respiratory: CTAB nl effort GI: abd soft, non-tender, non-distended Extremities: no clubbing, cynosis, or edema Objective Last Vital Signs Temp 36.1 C L 09/25/25 07:49 Pulse 71 09/25/25 07:49 Resp 17 09/25/25 07:49 BP 104/52 L 09/25/25 07:49 Pulse Ox 97 09/25/25 07:49 Laboratory Results - last 24 hr 09/24/25 09/24/25 09/25/25 20:57 22:10 05:18 WBC 6.41 4.20 L RBC 3.80 L 3.55 L Hgb 11.5 L 10.9 L Hct 34.4 L 32.5 L MCV 91 92 MCH 30.3 30.7 MCHC 33.4 33.5 RDW 13.4 13.2 Plt Count 179 172 MPV 10.2 11.0 Immature Gran % 0.3 0.2 Neutrophils % 68.4 56.9 Lymphocytes % 15.6 19.0 Monocytes % 9.0 14.3 Eosinophils % 5.6 7.9 Basophils % 1.1 1.7 Nucleated RBC % 0.0 0.0 Absolute Neutrophils 4.38 2.39 Absolute Lymphocytes 1.00 L 0.80 L Absolute Monocytes 0.58 0.60 Absolute Eosinophils 0.36 0.33 Absolute Basophils 0.07 0.07 PT 24.1 H INR 2.6 H Sodium 141 143 Potassium 4.2 4.2 Chloride 104 106 Carbon Dioxide 26.2 27.9 Anion Gap 10.8 9.1 BUN 25 H 22 Creatinine 0.70 L 0.70 L Est GFR (CKD-EPI 2020) 109.51 109.51 Glucose 88 58 L Calcium 9.1 8.6 Total Bilirubin 0.80 0.60 AST 38 H 30 ALT 25 19 Alkaline Phosphatase 60 51 Total Protein 6.8 6.0 Albumin 4.5 3.8 VTE Prohylaxis Risk Level: Moderate/High Risk Contraindications: None Prophylaxis: Patient anticoagulated (warfarin) Time Spent with Patient Time Spent with Patient: 35-49 minutes Time was spent: preparing to see the patient(eg.review tests), obtaining and/or reviewing separately otained hiistory, ordering medications,tests, procedures, referring, communicating with other health intensive care ambulance paramedic, indepentently interpreting results, counseling the patient and care coordination
[2025-09-25] MEDS: Rosuvastatin 20 MG TAB PO (20:06)
[2025-09-25] MEDS: Doxycycline Hyclate 100 MG CAP PO (20:06)
[2025-09-26 07:02] LABS: INR 2.9 (0.9-1.1); Prothrombin Time 26.8 sec (9.1-11.1)
[2025-09-26 07:59] VITALS: BP 102/55; PULSE 76; RESP 16; TEMP 36.8; O2SAT 97
[2025-09-26 08:06] VITALS: O2SAT 99
[2025-09-26] MEDS: Tiotropium Bromide-Respimat 10 PUFF INH 2 PUFF IH (08:06)
[2025-09-26] MEDS: Budesonide/Formoterol 160/4.5 6 GM 60 PUFF INH IH (08:06)
[2025-09-26] MEDS: Doxycycline Hyclate 100 MG CAP PO (08:12)
[2025-09-26] MEDS: Tamsulosin 0.4 MG CAPCR PO (08:13)
--- NOTE | 2025-09-26 09:13 | PDOC.CMDIS ---
Date of service: 09/26/25 Time of Service: 09:13 LACE Index Scoring Tool Questions: Length of Stay (in days): 2 Was the patient admitted via the E.D.?: Yes Comorbidities: Chronic Pulmonary Disease and Any Tumor E.D. Visits: 2 Answers: Total Score: 12 Risk of Readmission: High Risk Care Management Discharge Plan Reason for Hospitalization: pneumothorax Patient/Family Education Needs: Review discharge instructions, discuss Ask Me Three
--- NOTE | 2025-09-26 09:15 | DI.RAD_ITS ---
Exam(s) XR CHEST 2V PA LATERAL EXAM: XR CHEST 2V PA LATERAL CLINICAL HISTORY: follow up pneumothorax. TECHNIQUE: 2D digital imaging was performed. COMPARISON: CR,XR XR CHEST 2V PA LATERAL from 02/21/2022 CR,XR XR PORTABLE CHEST AP from 07/17/2024 CR XR CHEST 2V PA LATERAL from 05/12/[address] CHEST WO from 06/25/[address] CHEST WO from 09/24/2025 FINDINGS: 2 views: Again noted is bipolar left subclavian pacemaker lead tips in RA and RV and prosthetic mitral and aortic valves are again noted. Heart size is normal. The mediastinum is not widened. Bilateral hyperinflation-COPD emphysematous findings again noted with scarring in both lung apices. Multiple bilateral healed rib fractures are again noted. No new infiltrates nor pleural effusions. The recently described right-sided small pneumothorax is not evident on the present chest x-ray. A possible concern there 2 small nodular densities in the lateral right lung, these noncalcified nodular densities measuring approximately 8 x 7 mm and not evident on prior chest x-ray of February 2022. Also not evident on prior chest x-ray of 05/12/2025. No left lung nodules. No pleural effusions. No pulmonary edema. IMPRESSION: Severe COPD emphysematous changes. No pneumothorax evident on this chest x-ray. However, there are 2 adjacent 8 x 7 mm nodules now seen in the mid right lung field, not previously present. These require follow-up. Bipolar pacemaker and prosthetic mitral and aortic cardiac valves. No evidence of pulmonary edema. Again noted are multiple bilateral healed rib fractures. DATA REPOSITORY: RADIATION DOSE DELIVERED:
--- NOTE | 2025-09-26 10:39 | W.PM.DS.N ---
Date of service: 09/26/25 Time of Service: 10:40 DS: Diagnosis Discharge Diagnosis (1) Pneumothorax: Status: Acute (2) Heart valve replaced: Status: Chronic (3) Hypertension: Status: Chronic (4) Pulmonary nodule: Status: Acute (5) Emphysema lung: Status: Acute Discharge Plan Disposition Patient Disposition: Home Condition: Improving Discharge Details Reason For Visit: Right Pneumothorax Admit Date/Time: 09/24/25 23:37 Admit Provider: Kota Anne Attending Provider: Kota Anne [facility] Hospital Course: 75-year-old gentleman who is followed by multiple pulmonologists with a history of asthma/COPD, recurrent left pneumothorax s/p mechanicl pleurodesis, multiple pulmonary nodules, and aortic and mitral valve replacements who was called by his contract post office clerk from [place] because they saw a pneumothorax on a PET scan done 2 weeks prior to admission to assess his pulmonary nodules. Chest x-ray was done and demonstrated the pneumothorax had not resolved and was of similar size. He did not have chest pain, increased shortness of breath, or hypoxia. Some new <1cm lung nodules were also noted. He was observed and evaluated by pulmonology, who recommended oxygen therapy to help the pnuemothorax reabsorb and doxycycline to treat the nodules in case they represented an infectious process. Repeat CXR on the morning of discharge showed resolution of his pneumothorax. Home Meds and New Rx's Prescriptions: New doxycycline hyclate 100 mg Capsule 100 mg PO BID 5 Days Qty: 11 0RF Continued warfarin [Coumadin] 10 MG tablet 0 - 1 tab PO DIRECTED Qty: 90 4RF Rx Instructions: DOSE BASED ON INR betamethasone dipropionate 0.05 % cream 1 applic topical PRN PRN sildenafil 100 mg tablet 100 mg PO DAILY PRN Rx Instructions: administer 30 minutes to 4 hours before activity amoxicillin 500 mg capsule 2,000 mg PO ONCE PRN Rx Instructions: take four capsules by mouth1 hour prior to dental procedure diphenhydramine HCl 50 mg tablet See Rx Instructions PO DAILY PRN PRN Rx Instructions: 1-2 caps orally daily, as needed PRN; take 1-2 caps daily prn for anxiety fluticasone propionate 50 mcg/actuation spray,suspension 1 spray intranasal DAILY Rx Instructions: administer into each nostril clotrimazole 1 % cream 1 applic topical BID Rx Instructions: apply as directed Dayvigo 5 mg tablet 5 mg PO QHS PRN tamsulosin 0.4 mg capsule 0.4 mg PO DAILY Patient Comments: TAKE 1 CAPSULE BY MOUTH DAILY rosuvastatin 20 mg tablet 20 mg PO DAILY Logan Mirza 200-62.5-25 mcg blister with device 1 inh INHALATION DAILY Patient Comments: INHALE 1 PUFF INTO THE LUNGS DAILY albuterol sulfate 90 mcg/actuation HFA aerosol inhaler 2 puff INHALATION Q4H PRN Patient Comments: INHALE 2 PUFFS INTO THE LUNGS EVERY 6 HOURS NEEDED FOR WHEEZING OR SHORTNESS OF BREATH OR DIFFICULT BREATHING Discharge Instructions Instructions: Pneumothorax (Collapsed Lung) (DC) Additional Instructions: Follow up with your contract post office clerk as planned. You should pick one contract post office clerk to manage your lung care to avoid confusion and dangerous miscommunication. You have 5 1/2 more days of doxycyline to treat possible lung infection. Come back if you have chest pain or difficulty breathing. Stand Alone Forms: Portal Information Activity:: Activity as Tolerated Equipment/Supplies:: No Equipment Needed Diet:: As Tolerated Discharge Orders Discharge Orders: Discharge Order (Routine); Ordered 09/26/25 Ordered By: Tirso Fernández DS: Summary Time Spent with Patient providing and/or coordinating discharge services: Greater than 30 minutes Status at Discharge Functional status at discharge: independent ambulation Overall status at discharge: patient is back to baseline Mental Status: mental status grossly normal Speech and Movement: speech and movement normal Mood: congruent mood Affect: normal affect Exam Narrative Exam Narrative: General: alert, no acute distress. thin HEENT: no stridor, trachea midline CV: RRR, no murmur Respiratory: CTAB nl effort with breath sounds throughout GI: abd soft, non-tender, non-distended Extremities: no clubbing, cynosis, or edema Psych Mental Status: mental status grossly normal Speech and Movement: speech and movement normal Mood: congruent mood Affect: normal affect DS: Data Vitals/I&O Vitals and I&O: Vital Signs Temperature 36.8 C 09/26/25 07:59 Temperature Source Temporal Artery Scan 09/26/25 07:59 Pulse 76 09/26/25 07:59 Pulse Rhythm Regular 09/25/25 00:57 Pulse 70 09/24/25 19:01 Respiratory Rate 16 09/26/25 07:59 Respiratory Effort Normal 09/25/25 00:57 Respiratory Depth Normal 09/25/25 00:57 Respiratory Pattern Normal 09/25/25 00:57 Blood Pressure 102/55 L 09/26/25 07:59 Blood Pressure Mean 70 09/26/25 07:59 Pulse Oximetry 99 09/26/25 08:06 Oxygen Delivery Method Nasal Cannula 09/26/25 08:06 Oxygen Flow Rate 4 09/26/25 08:06 Pain Level 0 09/26/25 08:14 Intake & Output 09/25/25 09/25/25 09/26/25 11:59 23:59 11:59 Intake Total 240 / 480 240 / 480 240 / 240 Balance 240 / 480 240 / 480 240 / 240 Weight 64.4 kg 63.3 kg Intake: Oral 240 / 480 240 / 480 240 / 240 Other: Urine Color Yellow Urine Appearance Clear Urine Odor Normal Comment Pt voids an immeasurable amount ind. into the toilet. Data Completed and Pending Pending Labs at Discharge: 09/24/25 09/24/25 09/25/25 20:57 22:10 05:18 WBC 6.41 4.20 L RBC 3.80 L 3.55 L Hgb 11.5 L 10.9 L Hct 34.4 L 32.5 L MCV 91 92 MCH 30.3 30.7 MCHC 33.4 33.5 RDW 13.4 13.2 Plt Count 179 172 MPV 10.2 11.0 Immature Gran % 0.3 0.2 Neutrophils % 68.4 56.9 Lymphocytes % 15.6 19.0 Monocytes % 9.0 14.3 Eosinophils % 5.6 7.9 Basophils % 1.1 1.7 Nucleated RBC % 0.0 0.0 Absolute Neutrophils 4.38 2.39 Absolute Lymphocytes 1.00 L 0.80 L Absolute Monocytes 0.58 0.60 Absolute Eosinophils 0.36 0.33 Absolute Basophils 0.07 0.07 PT 24.1 H INR 2.6 H Sodium 141 143 Potassium 4.2 4.2 Chloride 104 106 Carbon Dioxide 26.2 27.9 Anion Gap 10.8 9.1 BUN 25 H 22 Creatinine 0.70 L 0.70 L Est GFR (CKD-EPI 2020) 109.51 109.51 Glucose 88 58 L Calcium 9.1 8.6 Total Bilirubin 0.80 0.60 AST 38 H 30 ALT 25 19 Alkaline Phosphatase 60 51 Total Protein 6.8 6.0 Albumin 4.5 3.8 Prostate Specific Ag 09/26/25 06:13 WBC RBC Hgb Hct MCV MCH MCHC RDW Plt Count MPV Immature Gran % Neutrophils % Lymphocytes % Monocytes % Eosinophils % Basophils % Nucleated RBC % Absolute Neutrophils Absolute Lymphocytes Absolute Monocytes Absolute Eosinophils Absolute Basophils PT 26.8 H INR 2.9 H Sodium Potassium Chloride Carbon Dioxide Anion Gap BUN Creatinine Est GFR (CKD-EPI 2020) Glucose Calcium Total Bilirubin AST ALT Alkaline Phosphatase Total Protein Albumin Prostate Specific Ag Pending PFSH All Active Problems (Updated 09/24/25 @ 23:49 by Kota Anne MD) Emphysema lung (Acute) Pneumothorax (Acute) Trapped lung (Acute) Pneumothorax (Acute) COPD (chronic obstructive pulmonary disease) (Chronic) Pulmonary nodule (Acute) COPD (chronic obstructive pulmonary disease) (Chronic) Left rotator cuff tear arthropathy (Acute) subacromial corticosteroid injection 02/07/23 Persistent atrial fibrillation (Acute) persistent since 03/09/2021 after VATS for spontaneous pneumo anticoag with coumadin for mechanical valves No RVR - hx CHB with pacemaker Multiple fractures of ribs of left side (Acute) Blunt trauma (Acute) Traumatic hemo-pneumothorax (Acute) Multiple rib fractures involving four or more ribs (Acute) Hematuria (Acute) Elevated INR (Acute) Encounter for medication administration (Acute) Persistent air leak (Acute) Pneumothorax on left (Acute) Lung blebs (Acute) Tension pneumothorax, spontaneous (Acute) Hematoma, postoperative (Acute) AV block, complete (Acute) Hypertension (Chronic) Heart valve replaced (Chronic 11/30/12) Aortic/Mitral mechanical Cardiac pacemaker in situ (Chronic) dual lead [employer] - PG replacement 07/31/2020 Medical History Near syncope C. difficile colitis COVID-19 vaccine administered 12/15/20 01/19/21 Recurrent spontaneous pneumothorax 02/2021 pt. stated he had this permanently fixed where they affixed the lung to the chest wall so it would stop recurring Dizziness Unilateral inguinal hernia Primary malignant neoplasm of bladder Mitral valve regurgitation replaced-1998 History of coagulation defect Clostridium difficile colitis (09/20/16) Anticoagulated on warfarin AVR/MVR; goal 2.5-3.5 Multiple rib fractures Surgical History History of aortic valve replacement [id number] with metal valve Presence of other heart-valve replacement (11/30/12) Aortic/Mitral Tonsillectomy and adenoidectomy Pacemaker (~2009) HERNIA REPAIR (~2007) Appendectomy Family History Mother Personal history of malignant neoplasm LIVER Father Heart disease Sister No problems noted. Brother No problems noted. 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
[2025-09-26 18:22] LABS: PSA, Diagnostic 0.6 ng/mL (<=6.5)
== END 2025-09-26 13:37 | disposition home or self-care (01) | DRG 199 ==
LOC: ER 09-25 00:27 → MS 09-25 00:52
PROVIDERS: Admitting Provider Hospitalist; Emergency Provider Emergency Medicine Emergency Medical Services; PCP Family Medicine; Responsible Provider Family Medicine; Visit Provider Hospitalist
DX: Z95.0 Presence of cardiac pacemaker; Z95.2 Presence of prosthetic heart valve; I11.0 Hypertensive heart disease with heart failure; R79.1 Abnormal coagulation profile; J43.9 Emphysema, unspecified; J93.83 Other pneumothorax; J18.9 Pneumonia, unspecified organism; I44.2 Atrioventricular block, complete; R91.8 Other nonspecific abnormal finding of lung field; Z77.090 Contact with and (suspected) exposure to asbestos; Z79.01 Long term (current) use of anticoagulants; I10 Essential (primary) hypertension; C67.9 Malignant neoplasm of bladder, unspecified
CPT/HCPCS: 00123; 36415; 71250; 80053; 94640; 99222; 99285; 71046; 84153; 85025; 85610; 94664; 94760; 99232; 99238

== ENCOUNTER → 2025-09-25 14:20 | Outpatient (BNVA) | payer MEDICARE, BC, SELFPAY | PROVIDERS: PCP Family Medicine; Referring Provider Family Medicine; Visit Provider Internal Medicine Pulmonary Disease ==

== ENCOUNTER → 2025-10-09 09:54 | Outpatient (BNVA) | payer MEDICARE, BC, SELFPAY | PROVIDERS: PCP Family Medicine; Referring Provider Family Medicine; Visit Provider Internal Medicine Pulmonary Disease ==

== ENCOUNTER → 2025-10-09 10:33 | Outpatient (CLI) | payer MEDICARE, BC, SELFPAY ==
--- NOTE | 2025-10-09 10:30 | DI.RAD_ITS ---
Exam(s) XR CHEST 2V PA LATERAL EXAM: XR CHEST 2V PA LATERAL CLINICAL HISTORY: J93.9 Hx right pneumothorax TECHNIQUE: 2D digital imaging was performed of the chest. Two images were obtained. PA and lateral views were obtained. COMPARISON: CT CT CHEST WO from 06/25/[address] CHEST WO from 09/24/2025 CR XR CHEST 2V PA LATERAL from 09/26/2025 FINDINGS: MEDIASTINUM: Normal. HEART: Normal. There is a dual lead cardiac pacing device. There is a mitral valve replacement. PULMONARY VASCULATURE: Normal. LUNGS: The lungs are hyperinflated consistent with underlying COPD. There is again seen biapical scarring, right greater than left. PLEURAL SPACE: No pleural effusion or pneumothorax. BONE:Within normal limits for the patient's age. There are old bilateral rib fracture deformities. Sternal wires are in place. OTHER FINDINGS:Normal. IMPRESSION: 1. No acute pulmonary findings. 2. There is no evidence of a pneumothorax. DATA REPOSITORY: RADIATION DOSE DELIVERED:
== END ==
LOC: DI 10:34
PROVIDERS: PCP Family Medicine; Visit Provider Internal Medicine Pulmonary Disease
DX: J93.9 Pneumothorax, unspecified (principal)
CPT/HCPCS: 71046